=== PATIENT | female | born 1935 | race Caucasian/White ===

== ENCOUNTER 2016-07-25 10:32 | Outpatient (RCR) | payer MEDICARE, MEDICAID ==
--- OUTSIDE RECORDS SUMMARY | 2016-05-02 13:47 | XMS REPORT | Continuity of Care Document ---
Author Author [facility] Organization [facility] Address Unknown Phone Unavailable Care Team Providers Care Production Mechanic Name Role Phone FELICITA CEDEÑO MD PCP Insurance Providers Payer Name Policy Number Subscriber Name Relationship Wps Medicare [id number] Deepa Serra N 18 Self / Same As Patient [facility] Amerigrp [id number] Deepa Serra 18 Self / Same As Patient Advance Directives Directive Response Recorded Date/Time Advance Directives Yes 07/20/14 2:59pm Health Care Power of Feed Research Technician Y DAUGHTER RENUKA TURCIOS [phone] 07/20/14 2: 59pm Organ Donor No 07/20/14 2:59pm Problems Medical Problems Problem Onset Date Status Nausea alone Unknown Active Medications Medication Dose Route Sig Days/Qty Instructions Order Date Discontinued Date Status Montelukast Sodium 05/23/08 12/27/09 Discontinued Gabapentin 300 Mg PO TWICE A DAY 05/23/08 03/20/11 Discontinued Sucralfate 1 Gm PO THREE TIMES A DAY 05/23/08 09/03/12 Discontinued Amlodipine Besylate 2.5 Mg PO DAILY 05/23/08 03/20/11 Discontinued Levothyroxine Sodium 150 Mcg PO DAILY 05/23/08 09/03/12 Discontinued Acyclovir 05/23/08 12/27/09 Discontinued Simvastatin 40 Mg PO BEDTIME 05/23/08 03/20/11 Discontinued Furosemide 40 Mg PO DAILY every other day 05/23/08 07/20/14 Discontinued Clopidogrel Bisulfate 75 Mg PO DAILY 05/23/08 09/03/12 Discontinued Metformin HCl 05/23/08 12/27/09 Discontinued Trazodone HCl 25 Mg PO BEDTIME 05/23/08 09/03/12 Discontinued Insulin Lispro Protam/Lispro Human 05/23/08 12/27/09 Discontinued Enalapril Maleate 05/23/08 12/27/09 Discontinued Eszopiclone 05/23/08 12/27/09 Discontinued Aspirin 325 Mg PO DAILY 05/23/08 03/21/11 Discontinued Esomeprazole Magnesium 40 Mg PO DAILY 05/23/08 Active Salmeterol Xinafoate/Fluticasone 1 Puff INH DAILY 05/23/08 Active Olmesartan 40 Mg PO DAILY 05/23/08 03/20/11 Discontinued Enalapril Maleate 20 Mg PO DAILY 12/27/09 03/20/11 Discontinued Metformin HCl (Glucophage) 1 Each PO TWICE A DAY WITH MEALS 12/27/09 03/20/11 Discontinued Potassium 99 Mg PO DAILY 2 Qty 12/27/09 03/20/11 Discontinued Potassium 99 Mg PO BEDTIME 3 Qty 12/27/09 03/20/11 Discontinued Ibuprofen 600 Mg PO BEDTIME 12/27/09 03/20/11 Discontinued Albuterol Sulfate 2.5 Mg IH THREE TIMES A DAY 12/27/09 03/20/11 Discontinued Ipratropium [place] 0.5 Mg IH TWICE A DAY 12/27/09 09/03/12 Discontinued Insulin Npl/Insulin Lispro 50 Unit SQ EVERY 12 HOURS 12/27/09 Discontinued Zolpidem Tartrate 5 Mg PO BEDTIME 12/27/09 03/20/11 Discontinued Carvedilol (Coreg) 25 Mg PO TWICE A DAY 12/27/09 09/03/12 Discontinued Insulin Aspart 12 Unit SC THREE TIMES A DAY 03/20/11 09/03/12 Discontinued Albuterol Sulfate 2.5 Mg IH TWICE A DAY 03/20/11 09/03/12 Discontinued Tiotropium [place] 1 IH DAILY pt takes at 1500 daily 03/20/11 Discontinued Aliskiren/Valsartan 1 Tab PO DAILY 03/20/11 09/03/12 Discontinued Folic Acid 1 Mg PO DAILY 03/20/11 09/03/12 Discontinued Duloxetine HCl 60 Mg PO DAILY 03/20/11 07/20/14 Discontinued Insulin Glargine,Hum.rec.anlog 65 Unit SQ TWICE A DAY 03/20/1109/03 Discontinued Niacin 1,000 Mg PO BEDTIME 03/20/11 09/03/12 Discontinued Fluticasone Propionate 1 Sprays NSEACH TWICE A DAY 03/20/11 Discontinued [Oxygen] 2 L IH BEDTIME 03/20/11 Active Multivitamins 1 Tab PO DAILY 03/20/11 09/03/12 Discontinued Tramadol HCl 50 Mg PO EVERY 6 HOURS PRN 03/20/11 Active Rosuvastatin Calcium 10 Mg PO BEDTIME 03/20/11 03/25/11 Discontinued Fish Oil 1,000 Mg PO DAILY 03/20/11 04/09/13 Discontinued Aspirin 81 Mg PO DAILY 03/21/11 03/26/11 Discontinued Simvastatin 40 Mg PO BEDTIME 03/25/11 05/01/11 Discontinued Amlodipine Besylate (Norvasc 5 Mg) 5 Mg PO DAILY 03/25/11 09/03/12 Discontinued Meclizine HCl 25 Mg PO DAILY 03/25/11 Active Aspirin 81 Mg PO DAILY 03/26/11 09/03/12 Discontinued Valsartan 320 Mg PO DAILY 03/26/11 03/26/11 Discontinued Rosuvastatin Calcium 10 Mg PO BEDTIME 05/01/11 Active Fluticasone Propionate 2 Sprays NSEACH TWICE A DAY 05/01/11 Discontinued Aspirin 325 Mg PO DAILY 09/03/12 09/17/12 Discontinued Tiotropium [place] 2 Puff IH TWICE A DAY 1 Qty 09/03/12 Active Levothyroxine Sodium (Levothroid) 150 Mcg PO DAILY 09/03/12 Active Niacin 1,000 Mg PO BEDTIME 09/03/12 Active Folic Acid 2 Mg PO DAILY 09/03/12 Active Insulin Glargine 80 Units SQ TWICE A DAY 09/03/12 Active Insulin Aspart Unit SQ BEFORE MEALS TID WITH MEALS PER SLIDING SCALE Active Loperamide Hcl 2 Mg PO NEEDED 09/03/12 04/09/13 Discontinued [Procrit] SQ WEEKLY 09/03/12 04/09/13 Discontinued Losartan Potassium 100 Mg PO DAILY 09/03/12 Active Acetaminophen With Codeine 1 - 2 Tab PO NEEDED Q 6 HRS. PRN PAIN 02/0609/05/12 Discontinued Alprazolam 0.5 Mg PO NEEDED 09/03/12 09/05/12 Discontinued Nitrofurantoin Macrocrystals 100 Mg PO TWICE A DAY X3 DAYS 09/05/12 Discontinued Acetaminophen/Hydrocodone Bitart 1 Ea PO Q 4 - 6 HR PRN 20 Qty 04/09/13 Discontinued Levofloxacin 0.5 Each PO DAILY 5 Days 09/12/12 09/17/12 Discontinued Aspirin 325 Mg PO DAILY 09/17/12 Active Trimethoprim/Sulfamethoxazole 1 Ea PO TWICE A DAY 20 Qty 09/26/12 Discontinued Trazodone HCl 100 Mg PO BEDTIME 04/09/13 Active Metoprolol Succinate 1 Each PO DAILY 04/09/13 Active Prednisolone Acetate 1 Ml OP 04/09/13 Active Ipratropium [place] 0.5 Mg IH 04/09/13 Active Guaifenesin/D-Methorphan Hb/Pe 118 Ml PO NEEDED 04/09/13 Discontinued Oxymetazoline Hcl 30 Ml NS 07/20/14 Active Gabapentin 100 Mg PO BEDTIME 07/20/14 Active Amlodipine Besylate 5 Mg PO DAILY 07/20/14 Active Albuterol Sulfate 2 Puff IH 07/20/14 Active Diphenhydramine HCl (Benadryl) 1 Each PO BEDTIME 07/20/14 Active Fesoterodine Fumarate 4 Mg PO DAILY 07/20/14 Active Estrogens Conjugated 0.625 Gm PV 07/20/14 Active Mu-Vits-Min Th/Lycopene/Lutein 1 Each PO DAILY 07/20/14 Active Loratadine 10 Mg PO 07/20/14 Active Ondansetron Hcl 4 Mg SL EVERY 4HRS 10 Qty FOR NAUSEA AND VOMITING Active Social History Social History Problem Response Recorded Date/Time Alcohol Use Denies Use 07/20/2014 2:59pm Recreational Drug Use No 07/20/2014 2:59pm Recent Foreign Travel N nessa alvares 05/18/2014 11:39am Hospital Discharge Instructions No hospital discharge instructions. Plan of Care No plan of care. Functional Status No functional status results. Allergies, Adverse Reactions, Alerts Allergen Type Severity Reaction Status Last Updated Penicillins ([id number]) Allergy Unknown Active 10/02/05 influenza virus vacc,specific ([id number]) Allergy Unknown Active Immunizations Name Given Type Date of Pneumonia Vaccine 08/28/12 Historical Tetanus Booster (TDap) Unknown Historical Vital Signs Acute Vital Signs Vital Response Date/Time Temperature (Fahrenheit) 97.9 degrees F (97.6 - 99.5) Temperature (Calculated Celsius) 36.53527 degrees C (36.4 - 37.5) Temperature Source Temporal Pulse Rate (adult) 99 bpm (60 - 90) Respiratory Rate 18 bpm (12 - 24) O2 Sat by Pulse Oximetry 98 % (88 - 100) Blood Pressure 187/83 mm Hg Pain Pain Intensity 0 Height (Feet) 5 feet Height (Inches) 5 inches Height (Calculated Centimeters) 165.302727 cm Weight (Pounds) 187 pounds Weight (Calculated Kilograms) 84.217559 kilograms Calculated BMI 31.11 Results Laboratory Results Test Name Result Units Flags Reference Collection Date/Time Result Date/ Time Comments White Blood Count 10.0 10^3/uL 4.3-11.0 08/04/2014 1:39pm 08/04/2014 1: 42pm Red Blood Count 3.99 10^6/uL L 4.35-5.85 08/04/2014 1:39pm 08/04/2014 1: 42pm Hemoglobin 10.7 G/DL L 11.5-16.0 08/04/2014 1:39pm 08/04/2014 1:42pm Hematocrit 35 % 35-52 08/04/2014 1:39pm 08/04/2014 1:42pm Mean Corpuscular Volume 89 FL 80-99 08/04/2014 1:39pm 08/04/2014 1: 42pm Mean Corpuscular Hemoglobin 27 PG 25-34 08/04/2014 1:39pm 08/04/2014 1: 42pm Mean Corpuscular Hemoglobin Concent 30 G/DL L 32-36 08/04/2014 1:39pm 02/2015 1:42pm Red Cell Distribution Width 17.9 % H 10.0-14.5 08/04/2014 1:39pm 2014 1:42pm Platelet Count 174 10^3/uL 130-400 08/04/2014 1:39pm 08/04/2014 1:42pm Mean Platelet Volume 9.7 FL 7.4-10.4 08/04/2014 1:39pm 08/04/2014 1: 42pm Neutrophils (%) (Auto) 69 % 42-75 08/04/2014 1:39pm 08/04/2014 1:42pm Lymphocytes (%) (Auto) 18 % 12-44 08/04/2014 1:39pm 08/04/2014 1:42pm Monocytes (%) (Auto) 8 % 0-12 08/04/2014 1:39pm 08/04/2014 1:42pm Eosinophils (%) (Auto) 5 % 0-10 08/04/2014 1:39pm 08/04/2014 1:42pm Basophils (%) (Auto) 1 % 0-10 08/04/2014 1:39pm 08/04/2014 1:42pm Neutrophils # (Auto) 6.9 X 10^3 1.8-7.8 08/04/2014 1:39pm 08/04/2014 1: 42pm Lymphocytes # (Auto) 1.8 X 10^3 1.0-4.0 08/04/2014 1:39pm 08/04/2014 1: 42pm Monocytes # (Auto) 0.8 X 10^3 0.0-1.0 08/04/2014 1:39pm 08/04/2014 1: 42pm Eosinophils # (Auto) 0.5 10^3/uL H 0.0-0.3 08/04/2014 1:39pm 08/04/2014 1 :42pm Basophils # (Auto) 0.1 10^3/uL 0.0-0.1 08/04/2014 1:39pm 08/04/2014 1: 42pm Urine Color YELLOW 05/26/2014 4:20pm 05/26/2014 4:42pm Urine Clarity VERY CLOUDY * 05/26/2014 4:20pm 05/26/2014 4:42pm Urine pH 5 5-9 05/26/2014 4:20pm 05/26/2014 4:42pm Urine Specific [place] 1.015 * 1.016-1.022 05/26/2014 4:20pm 2013 4:42pm Urine Protein 3+ * NEGATIVE 05/26/2014 4:20pm 05/26/2014 4:42pm Urine Glucose (UA) NEGATIVE NEGATIVE 05/26/2014 4:20pm 05/26/2014 4: 42pm Urine RBC (Auto) 3+ * NEGATIVE 05/26/2014 4:20pm 05/26/2014 4:42pm Urine Ketones NEGATIVE NEGATIVE 05/26/2014 4:20pm 05/26/2014 4:42pm Urine Nitrite POSITIVE * NEGATIVE 05/26/2014 4:20pm 05/26/2014 4:42pm Urine Bilirubin NEGATIVE NEGATIVE 05/26/2014 4:20pm 05/26/2014 4: 42pm Urine Urobilinogen NORMAL MG/DL NORMAL 05/26/2014 4:20pm 05/26/2014 4: 42pm Urine Leukocyte Esterase 3+ * NEGATIVE 05/26/2014 4:20pm 05/26/2014 4: 42pm Urine RBC 2-5 /HPF * 05/26/2014 4:20pm 05/26/2014 4:42pm Urine WBC TNTC /HPF * 05/26/2014 4:20pm 05/26/2014 4:42pm Urine Bacteria LARGE /HPF * 05/26/2014 4:20pm 05/26/2014 4:42pm Urine Squamous Epithelial Cells 5-10 /HPF 05/26/2014 4:20pm 2013 4:42pm Urine Crystals NONE /LPF 05/26/2014 4:20pm 05/26/2014 4:42pm Urine Casts NONE /LPF 05/26/2014 4:20pm 05/26/2014 4:42pm Urine Mucus NEGATIVE /LPF 05/26/2014 4:2005/26/2014 4:42pm Urine Culture Indicated YES 05/26/2014 4:2005/26/2014 4:42pm Sodium Level 137 MMOL/L 135-145 05/12/2014 1:30pm 05/12/2014 2:21pm Potassium Level 4.3 MMOL/L 3.6-5.0 05/12/2014 1:30pm 05/12/2014 2:21pm Chloride Level 106 MMOL/L 98-107 05/12/2014 1:30pm 05/12/2014 2:21pm Carbon Dioxide Level 22 MMOL/L 21-32 05/12/2014 1:30pm 05/12/2014 2: 21pm Blood Urea Nitrogen 28 MG/DL H 7-18 05/12/2014 1:30pm 05/12/2014 2:21pm Creatinine 1.68 MG/DL H 0.60-1.30 05/12/2014 1:30pm 05/12/2014 2:21pm BUN/Creatinine Ratio 17 05/12/2014 1:30pm 05/12/2014 2:21pm Estimat Glomerular Filtration Rate 29 05/12/2014 1:30pm 05/12/2014 2:21pm GFR INTERPRETIVE DATA UNITS FOR ESTIMATED GFR (eGFR): mL/min/1.73 M2 REFERENCE RANGE FOR ESTIMATED GFR (eGFR) eGFR NORMAL eGFR >60 MODERATELY DECREASED eGFR 30-59 SEVERLY DECREASED eGFR 15-29 KIDNEY FAILURE <15 (OR DIALYSIS) Glucose Level 279 MG/DL H 70-105 05/12/2014 1:30pm 05/12/2014 2:21pm Calcium Level 10.1 MG/DL 8.5-10.1 05/12/2014 1:30pm 05/12/2014 2:21pm Total Bilirubin 0.5 MG/DL 0.1-1.0 05/12/2014 1:30pm 05/12/2014 2:21pm Alkaline Phosphatase 101 U/L 40-136 05/12/2014 1:30pm 05/12/2014 2: 21pm Aspartate Amino Transf (AST/SGOT) 15 U/L 5-34 05/12/2014 1:30pm 2013 2:21pm Alanine Aminotransferase (ALT/SGPT) 19 U/L 0-55 05/12/2014 1:30pm 05/12 2:21pm Total Protein 7.0 G/DL 6.4-8.2 05/12/2014 1:30pm 05/12/2014 2:21pm Albumin 4.3 G/DL 3.2-4.5 05/12/2014 1:30pm 05/12/2014 2:21pm Ferritin 34 NG/ML 15-150 05/12/2014 1:30pm 05/13/2014 6:57am White Blood Count 10.2 10^3/uL 4.3-11.0 07/20/2014 3:03pm 07/20/2014 3: 25pm Red Blood Count 3.98 10^6/uL L 4.35-5.85 07/20/2014 3:03pm 07/20/2014 3: 25pm Hemoglobin 10.6 G/DL L 11.5-16.0 07/20/2014 3:03pm 07/20/2014 3:25pm Hematocrit 34 % L 35-52 07/20/2014 3:03pm 07/20/2014 3:25pm Mean Corpuscular Volume 85 FL 80-99 07/20/2014 3:03pm 07/20/2014 3: 25pm Mean Corpuscular Hemoglobin 27 PG 25-34 07/20/2014 3:03pm 07/20/2014 3: 25pm Mean Corpuscular Hemoglobin Concent 32 G/DL 32-36 07/20/2014 3:03pm 3:25pm Red Cell Distribution Width 15.5 % H 10.0-14.5 07/20/2014 3:03pm 2013 3:25pm Platelet Count 199 10^3/uL 130-400 07/20/2014 3:03pm 07/20/2014 3:25pm Mean Platelet Volume 9.0 FL 7.4-10.4 07/20/2014 3:03pm 07/20/2014 3: 25pm Neutrophils (%) (Auto) 74 % 42-75 07/20/2014 3:03pm 07/20/2014 3:25pm Lymphocytes (%) (Auto) 18 % 12-44 07/20/2014 3:03pm 07/20/2014 3:25pm Monocytes (%) (Auto) 6 % 0-12 07/20/2014 3:03pm 07/20/2014 3:25pm Eosinophils (%) (Auto) 2 % 0-10 07/20/2014 3:03pm 07/20/2014 3:25pm Basophils (%) (Auto) 0 % 0-10 07/20/2014 3:03pm 07/20/2014 3:25pm Neutrophils # (Auto) 7.5 X 10^3 1.8-7.8 07/20/2014 3:03pm 07/20/2014 3: 25pm Lymphocytes # (Auto) 1.9 X 10^3 1.0-4.0 07/20/2014 3:03pm 07/20/2014 3: 25pm Monocytes # (Auto) 0.6 X 10^3 0.0-1.0 07/20/2014 3:03pm 07/20/2014 3: 25pm Eosinophils # (Auto) 0.2 10^3/uL 0.0-0.3 07/20/2014 3:03pm 07/20/2014 3 :25pm Basophils # (Auto) 0.0 10^3/uL 0.0-0.1 07/20/2014 3:03pm 07/20/2014 3: 25pm Urine Color YELLOW 07/20/2014 2:53pm 07/20/2014 3:38pm Urine Clarity CLEAR 07/20/2014 2:53pm 07/20/2014 3:38pm Urine pH 6.5 5-9 07/20/2014 2:53pm 07/20/2014 3:38pm Urine Specific [place] 1.010 * 1.016-1.022 07/20/2014 2:53pm 2013 3:38pm Urine Protein 3+ * NEGATIVE 07/20/2014 2:53pm 07/20/2014 3:38pm Urine Glucose (UA) NEGATIVE NEGATIVE 07/20/2014 2:53pm 07/20/2014 3: 38pm Urine RBC (Auto) 1+ * NEGATIVE 07/20/2014 2:53pm 07/20/2014 3:38pm Urine Ketones NEGATIVE NEGATIVE 07/20/2014 2:53pm 07/20/2014 3:38pm Urine Nitrite NEGATIVE NEGATIVE 07/20/2014 2:53pm 07/20/2014 3:38pm Urine Bilirubin NEGATIVE NEGATIVE 07/20/2014 2:53pm 07/20/2014 3: 38pm Urine Urobilinogen NORMAL MG/DL NORMAL 07/20/2014 2:53pm 07/20/2014 3: 38pm Urine Leukocyte Esterase 2+ * NEGATIVE 07/20/2014 2:53pm 07/20/2014 3: 38pm Urine RBC NONE /HPF 07/20/2014 2:53pm 07/20/2014 3:38pm Urine WBC 5-10 /HPF * 07/20/2014 2:53pm 07/20/2014 3:38pm Urine Bacteria FEW /HPF * 07/20/2014 2:53pm 07/20/2014 3:38pm Urine Squamous Epithelial Cells 5-10 /HPF 07/20/2014 2:53pm 2013 3:38pm Urine Crystals NONE /LPF 07/20/2014 2:53pm 07/20/2014 3:38pm Urine Casts NONE /LPF 07/20/2014 2:53pm 07/20/2014 3:38pm Urine Mucus NEGATIVE /LPF 07/20/2014 2:53pm 07/20/2014 3:38pm Urine Other 0-2 TRANS EPIS /HPF 07/20/2014 2:53pm 07/20/2014 3:38pm Urine Culture Indicated YES 07/20/2014 2:53pm 07/20/2014 3:38pm Sodium Level 143 MMOL/L 135-145 07/20/2014 3:03pm 07/20/2014 3:41pm Potassium Level 3.3 MMOL/L L 3.6-5.0 07/20/2014 3:03pm 07/20/2014 3:41pm Chloride Level 107 MMOL/L 98-107 07/20/2014 3:03pm 07/20/2014 3:41pm Carbon Dioxide Level 22 MMOL/L 21-32 07/20/2014 3:03pm 07/20/2014 3: 41pm Blood Urea Nitrogen 9 MG/DL 7-18 07/20/2014 3:03pm 07/20/2014 3:41pm Creatinine 0.86 MG/DL 0.60-1.30 07/20/2014 3:03pm 07/20/2014 3:41pm BUN/Creatinine Ratio 10 07/20/2014 3:03pm 07/20/2014 3:41pm Estimat Glomerular Filtration Rate > 60 07/20/2014 3:03pm 2013 3:41pm GFR INTERPRETIVE DATA UNITS FOR ESTIMATED GFR (eGFR): mL/min/1.73 M2 REFERENCE RANGE FOR ESTIMATED GFR (eGFR) eGFR NORMAL eGFR >60 MODERATELY DECREASED eGFR 30-59 SEVERLY DECREASED eGFR 15-29 KIDNEY FAILURE <15 (OR DIALYSIS) Glucose Level 74 MG/DL 70-105 07/20/2014 3:03pm 07/20/2014 3:41pm Calcium Level 10.0 MG/DL 8.5-10.1 07/20/2014 3:03pm 07/20/2014 3:41pm Total Bilirubin 0.5 MG/DL 0.1-1.0 07/20/2014 3:03pm 07/20/2014 3:41pm Alkaline Phosphatase 91 U/L 40-136 07/20/2014 3:03pm 07/20/2014 3:41pm Aspartate Amino Transf (AST/SGOT) 19 U/L 5-34 07/20/2014 3:03pm 2013 3:41pm Alanine Aminotransferase (ALT/SGPT) 15 U/L 0-55 07/20/2014 3:03pm 07/20 3:41pm Total Protein 7.5 G/DL 6.4-8.2 07/20/2014 3:03pm 07/20/2014 3:41pm Albumin 4.6 G/DL H 3.2-4.5 07/20/2014 3:03pm 07/20/2014 3:41pm Lipase 42 U/L 8-78 07/20/2014 3:03pm 07/20/2014 3:41pm Microbiology Results Procedure Source Result Collection Date/Time Result Date/Time Urine Culture Urine, Clean Catch PROBABLE KLEBSIELLA/ENTEROBACT 05/12/2014 2 :15pm 05/14/2014 2:10pm KLEBSIELLA PNEUMONIAE 05/12/2014 2:15pm 05/14/2014 2:10pm KLEBSIELLA PNEUMONIAE 05/12/2014 2:15pm 05/14/2014 2:10pm Urine Culture Urine, Clean Catch GRAM NEGATIVE BOUBACAR 05/26/2014 4:20pm 2013 1:38pm KLEBSIELLA PNEUMONIAE 05/26/2014 4:20pm 05/28/2014 1:38pm KLEBSIELLA PNEUMONIAE 05/26/2014 4:20pm 05/28/2014 1:38pm Procedures No known history of procedures. Encounters Encounter Location Date/Time Discharged Recurring Via [facility] 08/04/14 1:35pm Departed Emergency Room Via [facility] 07/20/14 2:47pm
[2016-05-02 14:08] LABS: BASOPHILS % (AUTO) 0 % (0-10); EOSINOPHILS # (AUTO) 0.5 10^3/uL (0.0-0.3); EOSINOPHILS % (AUTO) 4 % (0-10); LYMPHOCYTES # (AUTO) 2.9 X 10^3 (1.0-4.0); LYMPHOCYTES % (AUTO) 26 % (12-44); MEAN CORPUSCULAR HEMOGLOBIN 29 PG (25-34); MEAN CORPUSCULAR HGB CONC 33 G/DL (32-36); MEAN CORPUSCULAR VOLUME 90 FL (80-99); MEAN PLATELET VOLUME 9.1 FL (7.4-10.4); MONOCYTES # (AUTO) 0.8 X 10^3 (0.0-1.0); MONOCYTES % (AUTO) 7 % (0-12); NEUTROPHILS % (AUTO) 62 % (42-75); PLATELET COUNT 150 10^3/uL (130-400); RED BLOOD COUNT 3.75 10^6/uL (4.35-5.85); RED CELL DISTRIBUTION WIDTH 17.5 % (10.0-14.5); WHITE BLOOD COUNT 11.3 10^3/uL (4.3-11.0)
[2016-05-09 11:07] LABS: BASOPHILS % (AUTO) 0 % (0-10); EOSINOPHILS # (AUTO) 0.4 10^3/uL (0.0-0.3); EOSINOPHILS % (AUTO) 4 % (0-10); LYMPHOCYTES # (AUTO) 2.3 X 10^3 (1.0-4.0); LYMPHOCYTES % (AUTO) 23 % (12-44); MEAN CORPUSCULAR HEMOGLOBIN 30 PG (25-34); MEAN CORPUSCULAR HGB CONC 33 G/DL (32-36); MEAN CORPUSCULAR VOLUME 91 FL (80-99); MEAN PLATELET VOLUME 9.4 FL (7.4-10.4); MONOCYTES # (AUTO) 0.5 X 10^3 (0.0-1.0); MONOCYTES % (AUTO) 5 % (0-12); NEUTROPHILS # (AUTO) 6.6 X 10^3 (1.8-7.8); NEUTROPHILS % (AUTO) 67 % (42-75); PLATELET COUNT 132 10^3/uL (130-400); RED BLOOD COUNT 3.91 10^6/uL (4.35-5.85); RED CELL DISTRIBUTION WIDTH 17.3 % (10.0-14.5); WHITE BLOOD COUNT 9.8 10^3/uL (4.3-11.0)
[2016-05-09 11:44] LABS: ALBUMIN 4.4 G/DL (3.2-4.5); BILIRUBIN,TOTAL 0.9 MG/DL (0.1-1.0); CALCIUM 9.9 MG/DL (8.5-10.1); CREATININE SERUM 1.71 MG/DL (0.60-1.30); POTASSIUM 4.3 MMOL/L (3.6-5.0)
[2016-05-16 09:05] LABS: BASOPHILS # (AUTO) 0.1 10^3/uL (0.0-0.1); BASOPHILS % (AUTO) 1 % (0-10); EOSINOPHILS # (AUTO) 0.4 10^3/uL (0.0-0.3); EOSINOPHILS % (AUTO) 4 % (0-10); LYMPHOCYTES # (AUTO) 2.8 X 10^3 (1.0-4.0); LYMPHOCYTES % (AUTO) 32 % (12-44); MEAN CORPUSCULAR HEMOGLOBIN 30 PG (25-34); MEAN CORPUSCULAR HGB CONC 33 G/DL (32-36); MEAN CORPUSCULAR VOLUME 91 FL (80-99); MEAN PLATELET VOLUME 9.5 FL (7.4-10.4); MONOCYTES # (AUTO) 0.5 X 10^3 (0.0-1.0); MONOCYTES % (AUTO) 5 % (0-12); NEUTROPHILS # (AUTO) 5.1 X 10^3 (1.8-7.8); NEUTROPHILS % (AUTO) 58 % (42-75); PLATELET COUNT 119 10^3/uL (130-400); RED BLOOD COUNT 3.73 10^6/uL (4.35-5.85); WHITE BLOOD COUNT 8.9 10^3/uL (4.3-11.0)
[2016-05-23 10:01] LABS: BASOPHILS % (AUTO) 1 % (0-10); EOSINOPHILS # (AUTO) 0.4 10^3/uL (0.0-0.3); EOSINOPHILS % (AUTO) 4 % (0-10); LYMPHOCYTES # (AUTO) 2.3 X 10^3 (1.0-4.0); LYMPHOCYTES % (AUTO) 27 % (12-44); MEAN CORPUSCULAR HEMOGLOBIN 31 PG (25-34); MEAN CORPUSCULAR HGB CONC 33 G/DL (32-36); MEAN CORPUSCULAR VOLUME 92 FL (80-99); MEAN PLATELET VOLUME 8.8 FL (7.4-10.4); MONOCYTES # (AUTO) 0.6 X 10^3 (0.0-1.0); MONOCYTES % (AUTO) 6 % (0-12); NEUTROPHILS # (AUTO) 5.5 X 10^3 (1.8-7.8); NEUTROPHILS % (AUTO) 63 % (42-75); PLATELET COUNT 144 10^3/uL (130-400); RED BLOOD COUNT 3.73 10^6/uL (4.35-5.85); RED CELL DISTRIBUTION WIDTH 16.4 % (10.0-14.5); WHITE BLOOD COUNT 8.7 10^3/uL (4.3-11.0)
[2016-05-29 10:35] LABS: BASOPHILS % (AUTO) 0 % (0-10); EOSINOPHILS # (AUTO) 0.5 10^3/uL (0.0-0.3); EOSINOPHILS % (AUTO) 6 % (0-10); LYMPHOCYTES # (AUTO) 2.5 X 10^3 (1.0-4.0); LYMPHOCYTES % (AUTO) 25 % (12-44); MEAN CORPUSCULAR HEMOGLOBIN 31 PG (25-34); MEAN CORPUSCULAR HGB CONC 33 G/DL (32-36); MEAN CORPUSCULAR VOLUME 93 FL (80-99); MEAN PLATELET VOLUME 8.9 FL (7.4-10.4); MONOCYTES # (AUTO) 0.6 X 10^3 (0.0-1.0); MONOCYTES % (AUTO) 7 % (0-12); NEUTROPHILS # (AUTO) 6.2 X 10^3 (1.8-7.8); NEUTROPHILS % (AUTO) 62 % (42-75); PLATELET COUNT 128 10^3/uL (130-400); RED BLOOD COUNT 3.41 10^6/uL (4.35-5.85); RED CELL DISTRIBUTION WIDTH 16.4 % (10.0-14.5); WHITE BLOOD COUNT 9.9 10^3/uL (4.3-11.0)
[2016-06-13 14:06] LABS: BASOPHILS % (AUTO) 0 % (0-10); EOSINOPHILS # (AUTO) 0.3 10^3/uL (0.0-0.3); EOSINOPHILS % (AUTO) 3 % (0-10); LYMPHOCYTES # (AUTO) 2.6 X 10^3 (1.0-4.0); LYMPHOCYTES % (AUTO) 27 % (12-44); MEAN CORPUSCULAR HEMOGLOBIN 30 PG (25-34); MEAN CORPUSCULAR HGB CONC 33 G/DL (32-36); MEAN CORPUSCULAR VOLUME 92 FL (80-99); MEAN PLATELET VOLUME 9.3 FL (7.4-10.4); MONOCYTES # (AUTO) 0.7 X 10^3 (0.0-1.0); MONOCYTES % (AUTO) 7 % (0-12); NEUTROPHILS # (AUTO) 5.9 X 10^3 (1.8-7.8); NEUTROPHILS % (AUTO) 62 % (42-75); PLATELET COUNT 126 10^3/uL (130-400); RED BLOOD COUNT 3.46 10^6/uL (4.35-5.85); WHITE BLOOD COUNT 9.5 10^3/uL (4.3-11.0)
[2016-06-27 09:01] LABS: BASOPHILS % (AUTO) 0 % (0-10); EOSINOPHILS # (AUTO) 0.4 10^3/uL (0.0-0.3); EOSINOPHILS % (AUTO) 6 % (0-10); LYMPHOCYTES % (AUTO) 27 % (12-44); MEAN CORPUSCULAR HEMOGLOBIN 31 PG (25-34); MEAN CORPUSCULAR HGB CONC 33 G/DL (32-36); MEAN CORPUSCULAR VOLUME 93 FL (80-99); MEAN PLATELET VOLUME 8.7 FL (7.4-10.4); MONOCYTES # (AUTO) 0.5 X 10^3 (0.0-1.0); MONOCYTES % (AUTO) 7 % (0-12); NEUTROPHILS # (AUTO) 4.6 X 10^3 (1.8-7.8); NEUTROPHILS % (AUTO) 61 % (42-75); PLATELET COUNT 144 10^3/uL (130-400); RED BLOOD COUNT 3.49 10^6/uL (4.35-5.85); RED CELL DISTRIBUTION WIDTH 15.2 % (10.0-14.5); WHITE BLOOD COUNT 7.5 10^3/uL (4.3-11.0)
[2016-07-04 10:01] LABS: BASOPHILS % (AUTO) 0 % (0-10); EOSINOPHILS # (AUTO) 0.2 10^3/uL (0.0-0.3); EOSINOPHILS % (AUTO) 3 % (0-10); LYMPHOCYTES # (AUTO) 1.9 X 10^3 (1.0-4.0); LYMPHOCYTES % (AUTO) 21 % (12-44); MEAN CORPUSCULAR HEMOGLOBIN 30 PG (25-34); MEAN CORPUSCULAR HGB CONC 32 G/DL (32-36); MEAN CORPUSCULAR VOLUME 94 FL (80-99); MEAN PLATELET VOLUME 8.5 FL (7.4-10.4); MONOCYTES # (AUTO) 0.6 X 10^3 (0.0-1.0); MONOCYTES % (AUTO) 7 % (0-12); NEUTROPHILS # (AUTO) 6.2 X 10^3 (1.8-7.8); NEUTROPHILS % (AUTO) 69 % (42-75); PLATELET COUNT 137 10^3/uL (130-400); RED BLOOD COUNT 3.56 10^6/uL (4.35-5.85); RED CELL DISTRIBUTION WIDTH 14.9 % (10.0-14.5)
[2016-07-04 10:51] LABS: ALBUMIN 4.4 G/DL (3.2-4.5); BILIRUBIN,TOTAL 0.8 MG/DL (0.1-1.0); CALCIUM 9.8 MG/DL (8.5-10.1); POTASSIUM 4.4 MMOL/L (3.6-5.0); TOTAL PROTEIN 6.9 G/DL (6.4-8.2)
[2016-07-11 10:24] LABS: BASOPHILS % (AUTO) 0 % (0-10); EOSINOPHILS # (AUTO) 0.3 10^3/uL (0.0-0.3); EOSINOPHILS % (AUTO) 3 % (0-10); LYMPHOCYTES # (AUTO) 2.2 X 10^3 (1.0-4.0); LYMPHOCYTES % (AUTO) 22 % (12-44); MEAN CORPUSCULAR HEMOGLOBIN 30 PG (25-34); MEAN CORPUSCULAR HGB CONC 32 G/DL (32-36); MEAN CORPUSCULAR VOLUME 93 FL (80-99); MEAN PLATELET VOLUME 8.6 FL (7.4-10.4); MONOCYTES # (AUTO) 0.6 X 10^3 (0.0-1.0); MONOCYTES % (AUTO) 6 % (0-12); NEUTROPHILS # (AUTO) 7.1 X 10^3 (1.8-7.8); NEUTROPHILS % (AUTO) 70 % (42-75); PLATELET COUNT 140 10^3/uL (130-400); RED BLOOD COUNT 3.65 10^6/uL (4.35-5.85); RED CELL DISTRIBUTION WIDTH 14.7 % (10.0-14.5); WHITE BLOOD COUNT 10.1 10^3/uL (4.3-11.0)
[~2016-07-25 10:32] MED LIST: AC325T PO; ACET473E5 PO; ACYC400T79; ADV1DS INH; ALBU0.632 IH; ALBU0.8322 IH; ALIS1TAB6 PO; ALPR0.254 PO; ALPR0.5T11 PO; AML2.5T PO; AMLO5TAB2 PO; AMLO5TAB5 PO; ASP325T PO; ASP81CT PO; ASP81TEC PO; ASPI325T32 PO; ATOR40TA70 PO; CARV25TA PO; CLPD75T PO; CYCL1DRO OU; DARBEPOETIN 10 MCG/0.4 ML ARANESP IJ SCH; DARBEPOETIN 40 MCG/ML (ARANESP) 1 ML VIAL SC SCH; DIPH25TA82 PO; DULO60CA6 PO; ENAL20TA PO; ENLP10T; EST30C PV; FESO4TAB2 PO; FLC1T PO; FLT05NA16 NSEACH; FLUT1DIS26 IH; FOLI0.8T PO; FOLI1TAB24 PO; FRSM40T PO; FURO40TA4 PO; GABA-486 PO; GBPN300C PO; Gabapentin PO; HYDR-3583 PO; IBP200T PO; INSASP10V IV; INSASP10V SC; INSU100C4 SQ; INSU100I17 SQ; INSU100V16 SQ; INSU100V19 SQ; INSU100V5 SQ; INSU100V6 SQ; IPRA0.2S18 IH; IPRA0.2S47 IH; ISOS30TA3 PO; LEVO150T6 PO; LEVO500T69 PO; LEVO750T39 PO; LOPE2CAP PO; LORA10CA PO; LOSA100T7 PO; LVT.15T PO; MECL-106 PO; MECL25TA56 PO; METF-380 PO; METO-272 PO; METO50TA7 PO; MNTL10T; MTF500T; MULT-1029 PO; MULT-608 PO; MULT1TAB69 PO; Meclizine Hcl PO; Metoprolol Succinate PO; NF-ESOM40C PO; NIA500ERT PO; NIAC1000 PO; NIAC100045 PO; NITR100C3 PO; OLME40TA14 PO; OLME40TA16 PO; OMEG1CAP57 PO; OMEP40CA36 PO; OMG1KC PO; ONDA-42 SL; OXYGEN IH; OXYM-30 NS; POLY15DR14 OU; POTA99TA7 PO; PRED1DRO OP; PROCRIT SQ; ROSU10TA12 PO; RT-ADVAIR1 IH; RT-ALBUINH IH; SCR1T1 PO; SERT100T8 PO; SIMV40TA2 PO; SOLI5TAB4 PO; SULF-222 PO; SULF1TAB38 PO; TIOT18CA IH; TIOT18CA2 IH; TRAZ100T92 PO; TRM50T PO; TRZ100T PO; TRZ50T PO; Tiotropium Bromide IH; VALS320T8 PO; ZOLP5TAB6 PO; [UNRECOGNIZED DRUG - CODE] PO; [UNRECOGNIZED DRUG - OTHER]; [UNRECOGNIZED DRUG - OTHER]
[2016-07-25 10:54] LABS: BASOPHILS % (AUTO) 0 % (0-10); EOSINOPHILS # (AUTO) 0.3 10^3/uL (0.0-0.3); EOSINOPHILS % (AUTO) 3 % (0-10); LYMPHOCYTES # (AUTO) 2.8 X 10^3 (1.0-4.0); LYMPHOCYTES % (AUTO) 26 % (12-44); MEAN CORPUSCULAR HGB CONC 32 G/DL (32-36); MEAN CORPUSCULAR VOLUME 92 FL (80-99); MEAN PLATELET VOLUME 8.9 FL (7.4-10.4); MONOCYTES # (AUTO) 0.5 X 10^3 (0.0-1.0); MONOCYTES % (AUTO) 4 % (0-12); NEUTROPHILS # (AUTO) 7.1 X 10^3 (1.8-7.8); NEUTROPHILS % (AUTO) 67 % (42-75); PLATELET COUNT 134 10^3/uL (130-400); RED BLOOD COUNT 3.56 10^6/uL (4.35-5.85); RED CELL DISTRIBUTION WIDTH 14.4 % (10.0-14.5); WHITE BLOOD COUNT 10.7 10^3/uL (4.3-11.0)
[2016-07-25 10:55] LABS: MEAN CORPUSCULAR HEMOGLOBIN 29 PG (25-34)
== END 2016-07-31 | disposition home or self-care (01) ==
LOC: ONC 10:32
PROVIDERS: ATTEND Internal Medicine Hematology & Oncology
DX: N18.3 Chronic kidney disease, stage 3 (moderate) (principal); D63.1 Anemia in chronic kidney disease; D50.0 Iron deficiency anemia secondary to blood loss (chronic); Z79.899 Other long term (current) drug therapy
CPT/HCPCS: 36415; 80053; 82728; 85025; 96372; 99213

== ENCOUNTER → 2016-10-17 | Outpatient (CLI) | payer MEDICARE, MEDICAID ==
[~2016-10-17] MED LIST changes: -DARBEPOETIN 10 MCG/0.4 ML ARANESP IJ SCH; -DARBEPOETIN 40 MCG/ML (ARANESP) 1 ML VIAL SC SCH
--- NOTE | 2016-10-17 17:44 | Diagnostic Imaging Report ---
Bilateral screening mammogram. The current study was also evaluated with a Computer Aided Detection (CAD) system. INDICATION: Screening. No current complaints stated on the questionnaire. COMPARISON: 09/06/15. FINDINGS: The breasts are composed of heterogeneously dense parenchyma which may decrease mammographic sensitivity. Benign-appearing calcifications are seen. Allowing for technique and positional differences, no suspicious change is seen. IMPRESSION: No significant change. ACR BI-RADS Category 2: Benign findings. Result letter will be mailed to the patient. Note: At least 10% of breast cancer is not imaged by mammography. Dictated by: Dictated on workstation # [id number]
== END ==
LOC: RAD 14:29
PROVIDERS: ATTEND Internal Medicine
DX: Z12.31 Encounter for screening mammogram for malignant neoplasm of breast (principal)
CPT/HCPCS: 77067

== ENCOUNTER 2016-10-31 09:52 | Outpatient (RCR) | payer MEDICARE, MEDICAID ==
--- OUTSIDE RECORDS SUMMARY | 2016-08-08 09:31 | XMS REPORT | Continuity of Care Document ---
Author Author [facility] Organization [facility] Address Unknown Phone Unavailable Care Team Providers Care Visitor Information Assistant Name Role Phone FELICITA CEDEÑO MD PCP Insurance Providers Payer Name Policy Number Subscriber Name Relationship Wps Medicare [id number] Deepa Serra N 18 Self / Same As Patient [facility] Amerigrp [id number] Deepa Serra 18 Self / Same As Patient Advance Directives Directive Response Recorded Date/Time Advance Directives Yes 07/20/14 2:59pm Health Care Power of Music Theory Professor Y DAUGHTER RENUKA TURCIOS [phone] 07/20/14 2: 59pm Organ Donor No 07/20/14 [...] TIMES A DAY 12/27/09 03/20/11 Discontinued Ipratropium [place] 0.5 Mg IH TWICE A DAY 12/27/09 [...] TWICE A DAY 03/20/11 09/03/12 Discontinued Tiotropium [place] 1 IH DAILY pt takes at 1500 [...] Mg PO DAILY 09/03/12 09/17/12 Discontinued Tiotropium [place] 2 Puff IH TWICE A DAY 1 [...] Acetate 1 Ml OP 04/09/13 Active Ipratropium [place] 0.5 Mg IH 04/09/13 Active Guaifenesin/D-Methorphan Hb/Pe [...] Type Severity Reaction Status Last Updated Penicillins ([id number]) Allergy Unknown Active 10/02/05 influenza virus vacc,specific ([id number]) Allergy Unknown Active Immunizations Name Given Type Date of Pneumonia Vaccine 08/28/12 Historical Tetanus Booster (TDap) Unknown Historical Vital Signs Acute Vital Signs Vital Response Date/Time Temperature (Fahrenheit) 97.9 degrees F (97.6 - 99.5) Temperature (Calculated Celsius) 36.67777 degrees C (36.4 - 37.5) Temperature Source Temporal Pulse Rate (adult) 99 bpm (60 - 90) Respiratory Rate 18 bpm (12 - 24) O2 Sat by Pulse Oximetry 98 % (88 - 100) Blood Pressure 187/83 mm Hg Pain Pain Intensity 0 Height (Feet) 5 feet Height (Inches) 5 inches Height (Calculated Centimeters) 165.460075 cm Weight (Pounds) 187 pounds Weight (Calculated Kilograms) 84.477313 kilograms Calculated BMI 31.11 Results Laboratory Results [...] 5-9 05/26/2014 4:20pm 05/26/2014 4:42pm Urine Specific [place] 1.015 * 1.016-1.022 05/26/2014 4:20pm 2013 4:42pm [...] 5-9 07/20/2014 2:53pm 07/20/2014 3:38pm Urine Specific [place] 1.010 * 1.016-1.022 07/20/2014 2:53pm 2013 3:38pm [...] Encounters Encounter Location Date/Time Discharged Recurring Via [facility] 08/04/14 1:35pm Departed Emergency Room Via [facility] 07/20/14 2:47pm
[2016-08-08 09:42] LABS: BASOPHILS # (AUTO) 0.1 10^3/uL (0.0-0.1); BASOPHILS % (AUTO) 1 % (0-10); EOSINOPHILS # (AUTO) 0.3 10^3/uL (0.0-0.3); EOSINOPHILS % (AUTO) 3 % (0-10); LYMPHOCYTES # (AUTO) 3.1 X 10^3 (1.0-4.0); LYMPHOCYTES % (AUTO) 30 % (12-44); MEAN CORPUSCULAR HEMOGLOBIN 29 PG (25-34); MEAN CORPUSCULAR HGB CONC 32 G/DL (32-36); MEAN CORPUSCULAR VOLUME 90 FL (80-99); MEAN PLATELET VOLUME 8.3 FL (7.4-10.4); MONOCYTES # (AUTO) 0.6 X 10^3 (0.0-1.0); MONOCYTES % (AUTO) 6 % (0-12); NEUTROPHILS # (AUTO) 6.1 X 10^3 (1.8-7.8); NEUTROPHILS % (AUTO) 60 % (42-75); PLATELET COUNT 166 10^3/uL (130-400); RED BLOOD COUNT 3.71 10^6/uL (4.35-5.85); RED CELL DISTRIBUTION WIDTH 14.3 % (10.0-14.5); WHITE BLOOD COUNT 10.1 10^3/uL (4.3-11.0)
[2016-08-22 09:55] LABS: BASOPHILS # (AUTO) 0.1 10^3/uL (0.0-0.1); BASOPHILS % (AUTO) 1 % (0-10); EOSINOPHILS # (AUTO) 0.3 10^3/uL (0.0-0.3); EOSINOPHILS % (AUTO) 4 % (0-10); LYMPHOCYTES # (AUTO) 2.5 X 10^3 (1.0-4.0); LYMPHOCYTES % (AUTO) 29 % (12-44); MEAN CORPUSCULAR HEMOGLOBIN 28 PG (25-34); MEAN CORPUSCULAR HGB CONC 31 G/DL (32-36); MEAN CORPUSCULAR VOLUME 90 FL (80-99); MEAN PLATELET VOLUME 8.2 FL (7.4-10.4); MONOCYTES # (AUTO) 0.5 X 10^3 (0.0-1.0); MONOCYTES % (AUTO) 6 % (0-12); NEUTROPHILS # (AUTO) 5.3 X 10^3 (1.8-7.8); NEUTROPHILS % (AUTO) 61 % (42-75); PLATELET COUNT 140 10^3/uL (130-400); RED BLOOD COUNT 3.52 10^6/uL (4.35-5.85); RED CELL DISTRIBUTION WIDTH 14.9 % (10.0-14.5); WHITE BLOOD COUNT 8.7 10^3/uL (4.3-11.0)
[2016-09-05 10:10] LABS: BASOPHILS % (AUTO) 0 % (0-10); EOSINOPHILS # (AUTO) 0.3 10^3/uL (0.0-0.3); EOSINOPHILS % (AUTO) 3 % (0-10); LYMPHOCYTES # (AUTO) 2.2 X 10^3 (1.0-4.0); LYMPHOCYTES % (AUTO) 22 % (12-44); MEAN CORPUSCULAR HEMOGLOBIN 28 PG (25-34); MEAN CORPUSCULAR HGB CONC 31 G/DL (32-36); MEAN CORPUSCULAR VOLUME 88 FL (80-99); MEAN PLATELET VOLUME 8.4 FL (7.4-10.4); MONOCYTES # (AUTO) 0.7 X 10^3 (0.0-1.0); MONOCYTES % (AUTO) 7 % (0-12); NEUTROPHILS # (AUTO) 6.8 X 10^3 (1.8-7.8); NEUTROPHILS % (AUTO) 67 % (42-75); PLATELET COUNT 174 10^3/uL (130-400); RED BLOOD COUNT 3.52 10^6/uL (4.35-5.85); WHITE BLOOD COUNT 10.1 10^3/uL (4.3-11.0)
[2016-09-05 10:49] LABS: ALBUMIN 4.5 G/DL (3.2-4.5); BILIRUBIN,TOTAL 0.8 MG/DL (0.1-1.0); CALCIUM 10.1 MG/DL (8.5-10.1); CREATININE SERUM 1.92 MG/DL (0.60-1.30); POTASSIUM 4.1 MMOL/L (3.6-5.0); TOTAL PROTEIN 7.4 G/DL (6.4-8.2)
[2016-09-05 11:31] LABS: BILIRUBIN,URINE NEGATIVE (NEGATIVE); KETONES,URINE NEGATIVE (NEGATIVE); LEUKOCYTE ESTERASE ,URINE 3+ (NEGATIVE); NITRITE,URINE NEGATIVE (NEGATIVE); PH,URINE 6.5 (5-9); PROTEIN,URINE 3+ (NEGATIVE); UROBILINOGEN,URINE NORMAL (NORMAL)
[2016-09-05 11:56] LABS: SQUAMOUS EPITHELIAL CELL,UR 0-2 /HPF; WBC,URINE >100 /HPF
[2016-09-19 13:52] LABS: BASOPHILS % (AUTO) 0 % (0-10); EOSINOPHILS # (AUTO) 0.2 10^3/uL (0.0-0.3); EOSINOPHILS % (AUTO) 2 % (0-10); LYMPHOCYTES % (AUTO) 29 % (12-44); MEAN CORPUSCULAR HEMOGLOBIN 27 PG (25-34); MEAN CORPUSCULAR HGB CONC 31 G/DL (32-36); MEAN CORPUSCULAR VOLUME 89 FL (80-99); MEAN PLATELET VOLUME 8.6 FL (7.4-10.4); MONOCYTES # (AUTO) 0.6 X 10^3 (0.0-1.0); MONOCYTES % (AUTO) 5 % (0-12); NEUTROPHILS # (AUTO) 6.7 X 10^3 (1.8-7.8); NEUTROPHILS % (AUTO) 64 % (42-75); PLATELET COUNT 172 10^3/uL (130-400); RED BLOOD COUNT 3.55 10^6/uL (4.35-5.85); RED CELL DISTRIBUTION WIDTH 16.7 % (10.0-14.5); WHITE BLOOD COUNT 10.5 10^3/uL (4.3-11.0)
[2016-10-03 10:59] LABS: BASOPHILS % (AUTO) 0 % (0-10); EOSINOPHILS # (AUTO) 0.3 10^3/uL (0.0-0.3); EOSINOPHILS % (AUTO) 3 % (0-10); LYMPHOCYTES # (AUTO) 2.9 X 10^3 (1.0-4.0); LYMPHOCYTES % (AUTO) 31 % (12-44); MEAN CORPUSCULAR HEMOGLOBIN 28 PG (25-34); MEAN CORPUSCULAR HGB CONC 32 G/DL (32-36); MEAN CORPUSCULAR VOLUME 90 FL (80-99); MEAN PLATELET VOLUME 8.4 FL (7.4-10.4); MONOCYTES # (AUTO) 0.6 X 10^3 (0.0-1.0); MONOCYTES % (AUTO) 6 % (0-12); NEUTROPHILS # (AUTO) 5.8 X 10^3 (1.8-7.8); NEUTROPHILS % (AUTO) 60 % (42-75); PLATELET COUNT 132 10^3/uL (130-400); RED BLOOD COUNT 3.46 10^6/uL (4.35-5.85); RED CELL DISTRIBUTION WIDTH 19.1 % (10.0-14.5); WHITE BLOOD COUNT 9.6 10^3/uL (4.3-11.0)
[2016-10-17 13:59] LABS: BASOPHILS % (AUTO) 0 % (0-10); EOSINOPHILS # (AUTO) 0.3 10^3/uL (0.0-0.3); EOSINOPHILS % (AUTO) 3 % (0-10); LYMPHOCYTES # (AUTO) 2.2 X 10^3 (1.0-4.0); LYMPHOCYTES % (AUTO) 26 % (12-44); MEAN CORPUSCULAR HEMOGLOBIN 29 PG (25-34); MEAN CORPUSCULAR HGB CONC 32 G/DL (32-36); MEAN CORPUSCULAR VOLUME 90 FL (80-99); MEAN PLATELET VOLUME 8.5 FL (7.4-10.4); MONOCYTES # (AUTO) 0.5 X 10^3 (0.0-1.0); MONOCYTES % (AUTO) 6 % (0-12); NEUTROPHILS # (AUTO) 5.5 X 10^3 (1.8-7.8); NEUTROPHILS % (AUTO) 65 % (42-75); PLATELET COUNT 136 10^3/uL (130-400); RED BLOOD COUNT 3.61 10^6/uL (4.35-5.85); RED CELL DISTRIBUTION WIDTH 19.3 % (10.0-14.5); WHITE BLOOD COUNT 8.6 10^3/uL (4.3-11.0)
[~2016-10-31 09:52] MED LIST changes: +DARBEPOETIN 10 MCG/0.4 ML ARANESP IJ SCH; +FERRIC CARBOXYMALTOSE 750 MG/15 ML (CANCER CTR) IV SCH
[2016-10-31 10:09] LABS: BASOPHILS % (AUTO) 0 % (0-10); EOSINOPHILS # (AUTO) 0.3 10^3/uL (0.0-0.3); EOSINOPHILS % (AUTO) 3 % (0-10); LYMPHOCYTES # (AUTO) 2.9 X 10^3 (1.0-4.0); LYMPHOCYTES % (AUTO) 30 % (12-44); MEAN CORPUSCULAR HEMOGLOBIN 29 PG (25-34); MEAN CORPUSCULAR HGB CONC 32 G/DL (32-36); MEAN CORPUSCULAR VOLUME 90 FL (80-99); MEAN PLATELET VOLUME 8.1 FL (7.4-10.4); MONOCYTES # (AUTO) 0.5 X 10^3 (0.0-1.0); MONOCYTES % (AUTO) 5 % (0-12); NEUTROPHILS # (AUTO) 5.8 X 10^3 (1.8-7.8); NEUTROPHILS % (AUTO) 61 % (42-75); PLATELET COUNT 139 10^3/uL (130-400); RED BLOOD COUNT 3.56 10^6/uL (4.35-5.85); RED CELL DISTRIBUTION WIDTH 19.8 % (10.0-14.5); WHITE BLOOD COUNT 9.6 10^3/uL (4.3-11.0)
[2016-10-31 10:35] LABS: ALBUMIN 4.3 G/DL (3.2-4.5); BILIRUBIN,TOTAL 0.8 MG/DL (0.1-1.0); CALCIUM 9.6 MG/DL (8.5-10.1); CREATININE SERUM 2.07 MG/DL (0.60-1.30); POTASSIUM 4.9 MMOL/L (3.6-5.0)
[2016-10-31] MEDS ORDERED: DARBEPOETIN 25 MCG/ML (CANCER CTR) 1 ML VIAL SC SCH (11:45)
[2016-10-31 11:53] LABS: BILIRUBIN,URINE NEGATIVE (NEGATIVE); KETONES,URINE NEGATIVE (NEGATIVE); LEUKOCYTE ESTERASE ,URINE 2+ (NEGATIVE); NITRITE,URINE NEGATIVE (NEGATIVE); PH,URINE 5 (5-9); PROTEIN,URINE 3+ (NEGATIVE); UROBILINOGEN,URINE NORMAL (NORMAL)
[2016-10-31 12:07] LABS: HYALINE CASTS, URINE RARE /LPF; RENAL EPITHELIAL CELLS,URINE RARE /HPF
== END 2016-11-06 | disposition home or self-care (01) ==
LOC: ONC 09:52
PROVIDERS: ATTEND Internal Medicine Hematology & Oncology
DX: N18.3 Chronic kidney disease, stage 3 (moderate) (principal); D63.1 Anemia in chronic kidney disease; D50.0 Iron deficiency anemia secondary to blood loss (chronic); Z79.899 Other long term (current) drug therapy; R82.99 Other abnormal findings in urine
CPT/HCPCS: 36415; 80053; 81000; 82728; 85025; 87077; 87088; 96365; 96372; 99213

== ENCOUNTER → 2016-10-31 | Outpatient (CLI) | payer MEDICARE, MEDICAID ==
[2016-10-31 10:57] LABS: THYROID STIMULATING HORMONE 1.53 UIU/ML (0.35-4.94)
== END ==
LOC: LAB 10-17 13:45
PROVIDERS: ATTEND Internal Medicine
DX: E11.9 Type 2 diabetes mellitus without complications (principal); I10 Essential (primary) hypertension; E78.5 Hyperlipidemia, unspecified; Z79.899 Other long term (current) drug therapy
CPT/HCPCS: 36415; 80061; 83036; 84443

== ENCOUNTER → 2016-11-04 | Outpatient (CLI) | payer MEDICARE, MEDICAID ==
[~2016-11-04] MED LIST changes: -DARBEPOETIN 10 MCG/0.4 ML ARANESP IJ SCH; -FERRIC CARBOXYMALTOSE 750 MG/15 ML (CANCER CTR) IV SCH
--- NOTE | 2016-11-04 11:41 | Diagnostic Imaging Report ---
PROCEDURE: CT head without contrast. TECHNIQUE: Multiple contiguous axial images were obtained through the brain without the use of intravenous contrast. INDICATION: Altered mental status. Headache. FINDINGS: There is no intracranial hemorrhage, edema, or mass effect. Periventricular and deep white matter hypodensities compatible with chronic microvascular ischemic changes are seen. No hydrocephalus. No extra-axial fluid collection seen. The calvarium, the visualized portions of the paranasal sinuses and orbits appear grossly unremarkable. IMPRESSION: Unremarkable exam. Dictated by: Dictated on workstation # [id number]
== END ==
LOC: RAD 10:56
PROVIDERS: ATTEND Nurse Practitioner Adult Health
DX: R41.82 Altered mental status, unspecified (principal); R26.81 Unsteadiness on feet
CPT/HCPCS: 70450

== ENCOUNTER 2017-01-23 12:54 | Outpatient (RCR) | payer MEDICARE, MEDICAID ==
[2016-11-14 11:06] LABS: BASOPHILS # (AUTO) 0.1 10^3/uL (0.0-0.1); BASOPHILS % (AUTO) 1 % (0-10); EOSINOPHILS # (AUTO) 0.2 10^3/uL (0.0-0.3); EOSINOPHILS % (AUTO) 3 % (0-10); LYMPHOCYTES # (AUTO) 2.4 X 10^3 (1.0-4.0); LYMPHOCYTES % (AUTO) 30 % (12-44); MEAN CORPUSCULAR HEMOGLOBIN 29 PG (25-34); MEAN CORPUSCULAR HGB CONC 31 G/DL (32-36); MEAN CORPUSCULAR VOLUME 94 FL (80-99); MEAN PLATELET VOLUME 8.1 FL (7.4-10.4); MONOCYTES # (AUTO) 0.5 X 10^3 (0.0-1.0); MONOCYTES % (AUTO) 6 % (0-12); NEUTROPHILS # (AUTO) 5.1 X 10^3 (1.8-7.8); NEUTROPHILS % (AUTO) 61 % (42-75); PLATELET COUNT 119 10^3/uL (130-400); RED BLOOD COUNT 3.54 10^6/uL (4.35-5.85); RED CELL DISTRIBUTION WIDTH 18.8 % (10.0-14.5); WHITE BLOOD COUNT 8.2 10^3/uL (4.3-11.0)
[2016-11-28 11:35] LABS: BASOPHILS % (AUTO) 1 % (0-10); EOSINOPHILS # (AUTO) 0.2 10^3/uL (0.0-0.3); EOSINOPHILS % (AUTO) 3 % (0-10); LYMPHOCYTES # (AUTO) 2.1 X 10^3 (1.0-4.0); LYMPHOCYTES % (AUTO) 27 % (12-44); MEAN CORPUSCULAR HEMOGLOBIN 29 PG (25-34); MEAN CORPUSCULAR HGB CONC 31 G/DL (32-36); MEAN CORPUSCULAR VOLUME 94 FL (80-99); MEAN PLATELET VOLUME 8.5 FL (7.4-10.4); MONOCYTES # (AUTO) 0.5 X 10^3 (0.0-1.0); MONOCYTES % (AUTO) 6 % (0-12); NEUTROPHILS # (AUTO) 4.9 X 10^3 (1.8-7.8); NEUTROPHILS % (AUTO) 63 % (42-75); PLATELET COUNT 128 10^3/uL (130-400); RED BLOOD COUNT 3.45 10^6/uL (4.35-5.85); RED CELL DISTRIBUTION WIDTH 17.5 % (10.0-14.5); WHITE BLOOD COUNT 7.8 10^3/uL (4.3-11.0)
[2016-12-12 12:40] LABS: BASOPHILS % (AUTO) 0 % (0-10); EOSINOPHILS # (AUTO) 0.3 10^3/uL (0.0-0.3); EOSINOPHILS % (AUTO) 3 % (0-10); LYMPHOCYTES # (AUTO) 2.5 X 10^3 (1.0-4.0); LYMPHOCYTES % (AUTO) 25 % (12-44); MEAN CORPUSCULAR HEMOGLOBIN 29 PG (25-34); MEAN CORPUSCULAR HGB CONC 32 G/DL (32-36); MEAN CORPUSCULAR VOLUME 93 FL (80-99); MEAN PLATELET VOLUME 8.9 FL (7.4-10.4); MONOCYTES # (AUTO) 0.5 X 10^3 (0.0-1.0); MONOCYTES % (AUTO) 5 % (0-12); NEUTROPHILS # (AUTO) 6.6 X 10^3 (1.8-7.8); NEUTROPHILS % (AUTO) 67 % (42-75); PLATELET COUNT 125 10^3/uL (130-400); RED BLOOD COUNT 3.45 10^6/uL (4.35-5.85); RED CELL DISTRIBUTION WIDTH 15.7 % (10.0-14.5); WHITE BLOOD COUNT 9.9 10^3/uL (4.3-11.0)
[2016-12-26 09:57] LABS: BASOPHILS % (AUTO) 0 % (0-10); EOSINOPHILS # (AUTO) 0.3 10^3/uL (0.0-0.3); EOSINOPHILS % (AUTO) 4 % (0-10); LYMPHOCYTES # (AUTO) 2.2 X 10^3 (1.0-4.0); LYMPHOCYTES % (AUTO) 26 % (12-44); MEAN CORPUSCULAR HEMOGLOBIN 30 PG (25-34); MEAN CORPUSCULAR HGB CONC 32 G/DL (32-36); MEAN CORPUSCULAR VOLUME 93 FL (80-99); MEAN PLATELET VOLUME 8.3 FL (7.4-10.4); MONOCYTES # (AUTO) 0.5 X 10^3 (0.0-1.0); MONOCYTES % (AUTO) 6 % (0-12); NEUTROPHILS # (AUTO) 5.6 X 10^3 (1.8-7.8); NEUTROPHILS % (AUTO) 64 % (42-75); PLATELET COUNT 131 10^3/uL (130-400); RED BLOOD COUNT 3.18 10^6/uL (4.35-5.85); RED CELL DISTRIBUTION WIDTH 15.7 % (10.0-14.5); WHITE BLOOD COUNT 8.7 10^3/uL (4.3-11.0)
[2016-12-26 10:32] LABS: ALBUMIN 4.3 G/DL (3.2-4.5); BILIRUBIN,TOTAL 0.7 MG/DL (0.1-1.0); CALCIUM 10.2 MG/DL (8.5-10.1); CREATININE SERUM 1.95 MG/DL (0.60-1.30); POTASSIUM 4.5 MMOL/L (3.6-5.0); TOTAL PROTEIN 6.8 G/DL (6.4-8.2)
[2017-01-09 12:08] LABS: BASOPHILS % (AUTO) 0 % (0-10); EOSINOPHILS # (AUTO) 0.3 10^3/uL (0.0-0.3); EOSINOPHILS % (AUTO) 3 % (0-10); LYMPHOCYTES # (AUTO) 2.4 X 10^3 (1.0-4.0); LYMPHOCYTES % (AUTO) 26 % (12-44); MEAN CORPUSCULAR HEMOGLOBIN 29 PG (25-34); MEAN CORPUSCULAR HGB CONC 31 G/DL (32-36); MEAN CORPUSCULAR VOLUME 93 FL (80-99); MEAN PLATELET VOLUME 9.2 FL (7.4-10.4); MONOCYTES # (AUTO) 0.6 X 10^3 (0.0-1.0); MONOCYTES % (AUTO) 7 % (0-12); NEUTROPHILS # (AUTO) 6.2 X 10^3 (1.8-7.8); NEUTROPHILS % (AUTO) 65 % (42-75); PLATELET COUNT 135 10^3/uL (130-400); RED BLOOD COUNT 3.29 10^6/uL (4.35-5.85); RED CELL DISTRIBUTION WIDTH 14.3 % (10.0-14.5); WHITE BLOOD COUNT 9.5 10^3/uL (4.3-11.0)
[~2017-01-23 12:54] MED LIST changes: +DARBEPOETIN 25 MCG/ML (CANCER CTR) 1 ML VIAL SC SCH; +OLME40TA12 PO; -OLME40TA16 PO
[2017-01-23 13:06] LABS: BASOPHILS # (AUTO) 0.1 10^3/uL (0.0-0.1); BASOPHILS % (AUTO) 1 % (0-10); EOSINOPHILS # (AUTO) 0.3 10^3/uL (0.0-0.3); EOSINOPHILS % (AUTO) 4 % (0-10); LYMPHOCYTES # (AUTO) 2.2 X 10^3 (1.0-4.0); LYMPHOCYTES % (AUTO) 28 % (12-44); MEAN CORPUSCULAR HEMOGLOBIN 29 PG (25-34); MEAN CORPUSCULAR HGB CONC 31 G/DL (32-36); MEAN CORPUSCULAR VOLUME 92 FL (80-99); MEAN PLATELET VOLUME 8.1 FL (7.4-10.4); MONOCYTES # (AUTO) 0.4 X 10^3 (0.0-1.0); MONOCYTES % (AUTO) 5 % (0-12); NEUTROPHILS % (AUTO) 63 % (42-75); PLATELET COUNT 155 10^3/uL (130-400); RED BLOOD COUNT 3.26 10^6/uL (4.35-5.85); RED CELL DISTRIBUTION WIDTH 14.6 % (10.0-14.5); WHITE BLOOD COUNT 7.9 10^3/uL (4.3-11.0)
== END 2017-02-12 | disposition home or self-care (01) ==
LOC: ONC 12:54
PROVIDERS: ATTEND Internal Medicine Hematology & Oncology
DX: N18.3 Chronic kidney disease, stage 3 (moderate) (principal); D63.1 Anemia in chronic kidney disease; D50.0 Iron deficiency anemia secondary to blood loss (chronic); Z79.899 Other long term (current) drug therapy
CPT/HCPCS: 36415; 80053; 82728; 85025; 96372; 99213

== ENCOUNTER → 2017-02-11 | Outpatient (CLI) | payer MEDICARE, MEDICAID ==
[~2017-02-11] MED LIST changes: +ACID1TAB PO; +ALBU18HF2 INH; +ASPI-983 PO; +CIPR-242 PO; +CITA20TA7 PO; -DARBEPOETIN 25 MCG/ML (CANCER CTR) 1 ML VIAL SC SCH; +FISH1CAP15 PO; +FLUT16SP22 NS; +LEVO125T6 PO; +LORA10TA7 PO; -METO-272 PO; +METO-370 PO; +NYST15CR TP
--- NOTE | 2017-02-11 16:15 | Diagnostic Imaging Report ---
EXAMINATION: Three views of the left knee. INDICATION: Injury. 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 The tibial component appears to be slightly tilted superiorly along its lateral aspect. No abnormal lucency around the prosthesis however or evidence of an acute change. There is cement seen around both the femoral and the tibial components and there is patellar resurfacing and prosthesis also noted. No acute fracture is seen. Small suprapatellar density may relate to an effusion. IMPRESSION: No acute fracture. Position of the joint prosthesis is described. Question of small suprapatellar effusion. Dictated by: Dictated on workstation # [id number]
== END ==
LOC: RAD 15:24
PROVIDERS: ATTEND Nurse Practitioner
DX: S89.92XA Unspecified injury of left lower leg, initial encounter (principal); Z96.652 Presence of left artificial knee joint; X58.XXXA Exposure to other specified factors, initial encounter; Y99.8 Other external cause status
CPT/HCPCS: 73562

== ENCOUNTER → 2017-02-13 | Outpatient (CLI) | payer MEDICARE, MEDICAID | LOC: LAB 01-09 11:07 | PROVIDERS: ATTEND Internal Medicine | DX: E11.9 Type 2 diabetes mellitus without complications (principal); I10 Essential (primary) hypertension; E78.5 Hyperlipidemia, unspecified; Z79.899 Other long term (current) drug therapy | CPT/HCPCS: 36415; 83036 ==

== ENCOUNTER 2017-04-03 10:50 | Inpatient (IN) | payer MEDICARE, MEDICAID ==
[~2017-04-03] VITALS: Ht 167.6 cm; Wt 85.3 kg
[~2017-04-03 10:50] MED LIST changes: -ACID1TAB PO; -ALBU18HF2 INH; -ASPI-983 PO; -CIPR-242 PO; -CITA20TA7 PO; -FISH1CAP15 PO; -FLUT16SP22 NS; -LEVO125T6 PO; -LORA10TA7 PO; +METO-272 PO; -METO-370 PO; -NYST15CR TP
--- OUTSIDE RECORDS SUMMARY | 2017-04-03 10:58 | XMS REPORT ---
Author Author JAMES SAMUEL Organization [employer] Address Unknown Phone Unavailable Care Team Providers Care Case Making Machine Operator Name Role Phone JAMES SAMUEL CP Unavailable Allergies, Adverse Reactions, Alerts Substance Reaction Event Type Penicillin G Benzathine Info Not Available Drug Allergy Problems Problem Type Condition Code Onset Dates Condition Status Assessment Dental examination Z01.20 Active Medications Medication Code System Code Instructions Start Date End Date Status Dosage Benicar HCT [facility] [address]-58 40-12.5 MG Orally Once a day 1 tablet Procedures Procedure Coding System Code Date PROPHYLAXIS - ADULT CPT-4 D1110 Apr 28, 2015 Vital Signs Date/Time: Apr 28, 2015 Blood Pressure Diastolic 82 mmHg Blood Pressure Systolic 153 mmHg Results No Known Results Summary Purpose [employer] Submission
--- OUTSIDE RECORDS SUMMARY | 2017-04-03 11:02 | XMS REPORT ---
Author Author STEPHANIE ALLEN Organization [employer] Address Unknown Phone Unavailable Care Team Providers Care Office Specialist Name Role Phone STEPHANIE ALLEN CP Unavailable Allergies No Known Allergies Problems Problem Type Condition ICD-9 Code Onset Dates Condition Status Assessment Dental examination V72.2 Active Medications No Known Medications Procedures Procedure Coding System Code Date Billing Notes on claim CPT-4 EC109 February 13, 2015 Results No Known Results Summary Purpose [employer] Submission
--- OUTSIDE RECORDS SUMMARY | 2017-04-03 11:04 | XMS REPORT | CCD ---
Author Author JAIRO HOOPER Organization Unknown Address [address] [facility] [address] [place], [place] [id number] Care Team Providers Care Apple Picker Name Role Phone FELICITAS TY, TAPAN Infante Attphyshruthi TAPAN POLK MD Vital Signs Unknown or Not Available. Allergies Unknown or Not Available. Procedures Procedure Code Procedure Type Date ^UA WITH MICRO 281136213 SNOMED CT 02/10/2016 ^CBC W/ MANUAL DIFF 83495212 SNOMED CT 02/10/2016 UA ROUTINE C&S IF IND 231880271 SNOMED CT 02/10/[address] 02/10/2016 TROPONIN-I ADV 390969636 SNOMED CT 02/10/2016 COMPREHENSIVE METABOLIC PANEL 431844434 SNOMED CT 2015 CBC W/ AUTO DIFF (RFLX MAN DIFF IF IND) 8756510 SNOMED CT 02/10/2016 History of Immunizations Unknown or Not Available. Problems Unknown or Not Available. Results COMPREHENSIVE METABOLIC PANEL - Collect Date/Time: 02/10/2016 14:20 Test Name Code Test Result Test Units Test Ref Range GLUCOSE 2345-7 175 MG/DL L=70 H=100 SODIUM 2951-2 125 MEQ/L L=135 H=148 POTASSIUM 2823-3 5.4 MEQ/L L=3.5 H=5.3 CHLORIDE 2075-0 95 MEQ/L L=96 H=110 CO2 2028-9 18 MEQ/L L=22 H=29 BUN 3094-0 29 MG/DL L=8 H=22 CREATININE 2160-0 1.7 MG/DL L=0.6 H=1.6 SGOT/AST 1920-8 13 IU/L L=10 H=40 SGPT/ALT 1742-6 10 IU/L L=8 H=54 ALK PHOS 6768-6 111 IU/L L=35 H=115 TOTAL PROTEIN 2885-2 6.7 G/DL L=5.5 H=8.5 ALBUMIN 1751-7 4.3 G/DL L=3.1 H=5.4 TOTAL BILI 1975-2 0.7 MG/DL L=0.0 H=1.5 CALCIUM 79819-8 10.5 MG/DL L=8.2 H=10.6 AGE 81 yrs GFR NonAA 29 GFR AA 35 eGFR 29 mL/min/1.7 eGFR AA* 35 mL/min/1.7 CPK - Collect Date/Time: 02/10/2016 14:20 Test Name Code Test Result Test Units Test Ref Range CPK 2157-6 49 IU/L L=0 H=235 CBC W/ AUTO DIFF (RFLX MAN DIFF IF IND) - Collect Date/Time: 02/10/2016 14:20 Test Name Code Test Result Test Units Test Ref Range WBC 72402-7 13.5 TH/CMM L=4.5 H=10.8 RBC 789-8 3.46 ML/CMM L=4.20 H=5.40 HGB 718-7 9.4 G/DL L=12.0 H=16.0 HCT 4544-3 29.5 % L=37.0 H=47.0 MCV 85 FL L=81 H=99 MCH 27.2 PG L=27.0 H=33.0 MCHC 31.9 G/DL L=31.0 H=36.0 RDW SD 48 FL L=36 H=50 RDW CV 15.4 % L=0.0 H=14.8 MPV 8.5 FL L=9.3 H=12.5 PLT 777-3 133 TH/CMM L=130 H=440 NRBC# 0.00 TH/CMM L=0.00 H=0.00 NRBC% 0.0 /100WBC L=0.0 H=2.0 %NEUT 86.7 % %LYMP 6.8 % %MONO 5.0 % %EOS 0.7 % %BASO 0.4 % #NEUT 11.68 TH/CMM L=2.10 H=8.20 #LYMP 0.92 TH/CMM L=0.90 H=5.20 #MONO 0.67 TH/CMM L=0.16 H=1.00 #EOS 0.09 TH/CMM L=0.00 H=0.80 #BASO 0.05 TH/CMM L=0.00 H=0.20 SEGS 88 % BANDS 4 % LYMPHS 8 % MANUAL DIFF SEE BELOW N/A ANISO 1+ N/A UA ROUTINE C&S IF IND - Collect Date/Time: 02/10/2016 14:45 Test Name Code Test Result Test Units Test Ref Range COLOR YELLOW N/A NL: YELLOW APPEARANCE CLEAR N/A NL: CLEAR SPEC GRAV 1.015 N/A NL: 1.002 - 1.022 pH 6.0 N/A NL: 5 - 9 PROTEIN 100 N/A NL: NEGATIVE mg/dl GLUCOSE NEGATIVE N/A NL: NEGATIVE mg/dl KETONE NEGATIVE N/A NL: NEGATIVE mg/dl BILIRUBIN NEGATIVE N/A NL: NEGATIVE BLOOD NEGATIVE N/A NL: NEGATIVE NITRITE NEGATIVE N/A NL: NEGATIVE LEUK SCREEN NEGATIVE N/A NL: NEGATIVE MICRO INDICATED? SEE BELOW N/A WBC/HPF 0-5 N/A NL: NEGATIVE RBC/HPF NEGATIVE N/A NL: NEGATIVE CASTS/LPF NEGATIVE N/A NL: NEGATIVE CRYSTALS NEGATIVE N/A NL: NEGATIVE MUCOUS THRDS NEGATIVE N/A NL: NEGATIVE BACTERIA NEGATIVE N/A NL: NEGATIVE EPITH CELLS 2++ SQUAMOUS N/A NL: NEGATIVE TRICHOMONAS NEGATIVE N/A NL: NEGATIVE YEAST NEGATIVE N/A NL: NEGATIVE CULT SET UP? NO N/A TROPONIN-I ADV - Collect Date/Time: 02/10/2016 14:20 Test Name Code Test Result Test Units [place] [address]-0 <0.04 ng/mL L=0.04 H= 0.40 Active Medications Unknown or Not Available. Medications Administered During Visit Unknown or Not Available. Encounters Encounter Diagnosis Diagnosis Code Start Date Heat exhaustion due to salt depletion, initial encounter [id number] 02/10/2016 Social History Smoking Status Code Start Date End Date Never smoker [id number] Patient Decision Aids Unknown or Not Available. Discharge Instructions You were admitted to [facility] on 02/10/2016 14:07 with a principal diagnosis of Heat exhaustion due to salt depletion, initial encounter You had the following tests done: CBC W/ AUTO DIFF (RFLX MAN DIFF IF IND) COMPREHENSIVE METABOLIC PANEL CPK TROPONIN-I ADV UA ROUTINE C&S IF IND You were discharged from [facility] on 02/10/2016 15:44 Should you have any questions prior to discharge, please contact a member of your healthcare team. If you have left the hospital and have any questions, please contact your primary care physician. Chief Complaint and Reason For Visit Chief Complaint Date of Onset HEAT EXPOSURE Function Status Unknown or Not Available. Plan of Care Unknown or Not Available. Referral/Transition of Care Unknown or Not Available.
[2017-04-03] MEDS ORDERED: NS IV 1000 ML 1,000 ML IV ONE ×2 (11:15→14:15)
[2017-04-03] MEDS ORDERED: ACETAMINOPHEN 325 MG TABLET/CAPLET (TYLENOL) PO STA (11:23)
[2017-04-03 11:25] LABS: BILIRUBIN,URINE NEGATIVE (NEGATIVE); KETONES,URINE NEGATIVE (NEGATIVE); LEUKOCYTE ESTERASE ,URINE 3+ (NEGATIVE); NITRITE,URINE POSITIVE (NEGATIVE); PH,URINE 6 (5-9); PROTEIN,URINE 3+ (NEGATIVE); UROBILINOGEN,URINE NORMAL (NORMAL)
[2017-04-03] MEDS ORDERED: LEVOFLOXACIN 500 MG/100 ML IV 100 ML IV ONE (11:30)
[2017-04-03 11:36] LABS: BASOPHILS % (AUTO) 0 % (0-10); EOSINOPHILS % (AUTO) 0 % (0-10); LYMPHOCYTES # (AUTO) 0.9 X 10^3 (1.0-4.0); LYMPHOCYTES % (AUTO) 6 % (12-44); MEAN CORPUSCULAR HEMOGLOBIN 28 PG (25-34); MEAN CORPUSCULAR HGB CONC 32 G/DL (32-36); MEAN CORPUSCULAR VOLUME 87 FL (80-99); MEAN PLATELET VOLUME 9.1 FL (7.4-10.4); MONOCYTES # (AUTO) 1.1 X 10^3 (0.0-1.0); MONOCYTES % (AUTO) 7 % (0-12); NEUTROPHILS # (AUTO) 14.6 X 10^3 (1.8-7.8); NEUTROPHILS % (AUTO) 88 % (42-75); PLATELET COUNT 160 10^3/uL (130-400); RED BLOOD COUNT 3.15 10^6/uL (4.35-5.85); RED CELL DISTRIBUTION WIDTH 17.4 % (10.0-14.5); WHITE BLOOD COUNT 16.6 10^3/uL (4.3-11.0)
--- NOTE | 2017-04-03 11:41 | Diagnostic Imaging Report ---
CLINICAL INDICATION: Patient states shortness of breath x2 days. EXAM: Portable chest x-ray upright view. COMPARISONS: Chest x-ray dated 12/16/2015. FINDINGS: There is interval improved aeration and resolution of previously seen right lung base infiltrate. There is mild atelectasis in the right midlung field. Otherwise, lungs are clear. There is no pleural effusion or pneumothorax. Pulmonary vasculature and cardiac silhouette is within normal limits. There are degenerative spurs involving the thoracic spine. IMPRESSION: 1: There is no radiographic evidence of acute cardiopulmonary process. 2: Minimal right midlung field atelectasis. 3: Interval resolution of previously seen right lung base infiltrate. Dictated by: Dictated on workstation # [id number]
[2017-04-03 11:42] LABS: WBC,URINE TNTC /HPF
[2017-04-03 11:50] LABS: INR 1.3 (0.8-1.4)
[2017-04-03 11:58] LABS: ALBUMIN 3.6 GM/DL (3.2-4.5); BILIRUBIN,TOTAL 0.8 MG/DL (0.1-1.0); CALCIUM 9.6 MG/DL (8.5-10.1); CREATININE SERUM 2.51 MG/DL (0.60-1.30); POTASSIUM 4.8 MMOL/L (3.6-5.0); TOTAL PROTEIN 6.4 GM/DL (6.4-8.2)
--- NOTE | 2017-04-03 12:13 | ED General ---
General Chief Complaint: General Problems/Pain Stated Complaint: SHAKEY/CONFUSED/WEAK Nursing Triage Note: PT BROUGHT TO ED BY DAUGHTER WITH C/O WEAKNESS AND CONFUSION SINCE LAST NOC. SHE ALSO REPORTS PT FELL YESTERDAY. PT HAS HX OF CHRONIC UTI'S AND IS FEBRILE AT THIS TIME. Nursing Sepsis Screen: Possible Severe Sepsis Risk History of Present Illness Time Seen by Provider: 11:40 Initial Comments Patient reports falling on 04/01/17 at 0200. She was in her bathroom on a tile floor, she started to get up and grabbed a mop bucket for assistance the mop bucket slipped and she fell hitting her left frontal lobe on the tile floor. She denies any loss of consciousness at the time of the fall. She denies taking blood thinners. Her daughter does report that she has had confusion, but she relates it to a possible UTI and has not noticed increased confusion since the fall. She has a history of UTI with similar symptoms. Today upon her awakening, she reports having dysuria, polyuria, feeling shaky and weak. Her daughter reports that she has been dizzy and easily confused. Timing/Duration: 2-3 Days Severity: Mild Modifying Factors: improves with Rest Associated Systoms: Fever/Chills, Headaches (left frontal lobe), Malaise, Weakness, Other (polyuria, dysuria) Allergies and Home Medications Allergies Coded Allergies: Penicillins (Verified Allergy, Unknown, 02/02/15) influenza virus vaccine, specific (Verified Allergy, Unknown, 02/02/15) Home Medications Alprazolam 0.25 Mg Tablet, 0.25 MG PO DAILY, (Reported) Aspirin 325 Mg Tablet.dr, 325 MG PO DAILY, (Reported) Atorvastatin Calcium 40 Mg Tablet, 40 MG PO HS, (Reported) Cyclosporine 1 Each Droperette, 1 DROP OU BID, (Reported) LAST FILLED 06/26/15 #60 VIALS Fluticasone/Salmeterol 1 Each Blst.w.dev, 1 PUFF IH BID, (Reported) Folic Acid 0.8 Mg Tablet, 0.8 MG PO DAILY, (Reported) Furosemide 40 Mg Tablet, 40 MG PO DAILY, (Reported) Gabapentin 100 Mg Capsule, 100 MG PO 0800,1300, (Reported) Gabapentin 100 Mg Capsule, 300 MG PO HS, (Reported) TAKES 3 (100 MG) CAPSULES Insulin Aspart 100 Unit/1 Ml Susp, 15 UNITS SQ AC, (Reported) Insulin Determir 1,000 Units/10 Ml Soln, 60 UNITS SQ BID, (Reported) Levofloxacin 750 Mg Tablet, 750 MG PO Q48H@11 for 4 Days Prescribed by: MICHAEL BARNHART on 12/19/15 1054 Levothyroxine Sodium 150 Mcg Tablet, 150 MCG PO DAILY, (Reported) Meclizine HCl 25 Mg Tablet, 25 MG PO DAILY, (Reported) Metoprolol Succinate 50 Mg Tab.er.24h, 50 MG PO HS, (Reported) Multivitamin 1 Each Tablet, 1 TAB PO DAILY, (Reported) Niacin 1,000 Mg Tab.er.24h, 1,000 MG PO HS, (Reported) Olmesartan Medoxomil 40 Mg Tablet, 40 MG PO DAILY, (Reported) [place]-3 Fatty Acids/Fish Oil 1 Each Capsule, 3,000 MG PO DAILY, (Reported) Omeprazole 40 Mg Capsule.dr, 40 MG PO DAILY, (Reported) Polyvinyl Alcohol/Povidone 15 Ml Drops, 1 DROP OU DAILY PRN for DRY EYES, ( Reported) Solifenacin Succinate 5 Mg Tablet, 5 MG PO DAILY, (Reported) Tiotropium [place] 1 Inh Aerp, 1 CAP IH HS, (Reported) Trazodone HCl 100 Mg Tablet, 100 MG PO HS, (Reported) Constitutional: see HPI, fever, malaise, other (headache) EENTM: see HPI, no symptoms reported Cardiovascular: no symptoms reported, see HPI, No chest pain Gastrointestinal: see HPI, diarrhea (chronic) Genitourinary: see HPI, dysuria, frequency, nocturia, pain Musculoskeletal: no symptoms reported, see HPI Skin: no symptoms reported, see HPI All Other Systems Reviewed Negative Unless Noted: Yes Past Swflrtc-Kyogce-Lkhlic Hx Patient Social History Alcohol Use: Denies Use Recreational Drug Use: No Smoking Status: Never a Smoker 2nd Hand Smoke Exposure: No Recent Foreign Travel: No Contact w/Someone Who Travel: No Recent Infectious Disease Expo: No Recent Hopitalizations: No Physical Abuse: No Sexual Abuse: No Immunizations Up To Date Tetanus Booster (TDap): Unknown Date of Pneumonia Vaccine: Aug 28, 2012 Surgeries History of Surgeries: Yes (SEVERAL) Surgeries: Appendectomy, Hysterectomy Respiratory History of Respiratory Disorde: Yes Respiratory Disorders: Pneumonia, COPD, Emphysema Cardiovascular History of Cardiac Disorders: Yes Cardiac Disorders: Hypertension Neurological History of Neurological Disord: No 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 System Hx 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 Disorders: No Sexually Transmitted Disease: No HIV/AIDS: No Female 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 Disorders: Denies Genitourinary History of Genitourinary Disor: Yes Genitourinary Disorders: UTI-Chronic Gastrointestinal History of Gastrointestinal Di: Yes Gastrointestinal Disorders: Gastroesophageal Reflux, Polyps, Hiatal Hernia Musculoskeletal History of Musculoskeletal Dis: No Endocrine History of Endocrine Disorders: Yes (THYROID DISEASE) Endocrine Disorders: Diabetes, Insulin dep HEENT HEENT Disorders: Cataract Loss of Vision: Denies Hearing Impairment: Denies Cancer History of Cancer: No Psychosocial History of Psychiatric Problem: Yes Behavioral Health Disorders: Anxiety, Depression Suicide Risk Score: 0 Integumentary History of Skin or Integumenta: Yes Blood Transfusions History of Blood Disorders: Yes (ANEMIA) Adverse Reaction to a Blood Tr: No Family Medical History Family Medial History: Arthritis Cardiovascular disease Diabetes mellitus Hypertension Physical Exam-Suspected Sepsis Physical Exam Vital Signs Vital Sign - Last 12Hours 04/03/17 04/03/17 04/03/17 11:00 17:05 20:15 Temp 101.8 Pulse 91 Resp 16 B/P (MAP) 140/56 Pulse Ox 92 O2 Delivery Room Air O2 Flow Rate 2.00 FiO2 28 Capillary Refill : Less Than 3 Seconds Blood Pressure Mean: 84 General Appearance: No Apparent Distress, WD/WN Eyes: Bilateral Eye Normal Inspection, Bilateral Eye PERRL, Bilateral Eye EOMI HEENT: PERRL/EOMI, TMs Normal, Normal ENT Inspection, Pharynx Normal, Other ( small hematoma with ecchymosis to left frontal lobe, trace tenderness in this region.) Neck: Full Range of Motion, Normal Inspection, Non Tender, Carotid Bruit Respiratory: Chest Non Tender, Lungs Clear, Normal Breath Sounds Cardiovascular: Regular Rate, Rhythm, No Murmur, Normal Peripheral Pulses Gastrointestinal: Normal Bowel Sounds, No Organomegaly, Soft, Tenderness ( suprapubic) Back: Normal Inspection, No CVA Tenderness, No Vertebral Tenderness Extremity: Normal Capillary Refill, Normal Inspection, Normal Range of Motion, Non Tender, Pedal Edema (1+ bilaterally) Neurologic/Psychiatric: Alert, Oriented x3, No Motor/Sensory Deficits, Normal Mood/Affect Skin: normal color, warm/dry Lymphatic: No Adenopathy Focused Exam Evaluation Lactate Level Laboratory Tests 04/03/17 11:15: Lactic Acid Level 0.83 Lactic Acid Level Progress/Results/Core Measures Suspected Sepsis Recent Fever Within 48 Hours: Yes Infection Criteria Present: Suspected New Infection New/Unexplained Altered Menta: Yes Sepsis Screen: Possible Severe Sepsis Risk Sepsis Diagnosis: SIRS Temperature:101.8 Pulse: 91 Respiratory Rate: 16 Laboratory Tests 04/03/17 11:15: White Blood Count 16.6H Blood Pressure 140 /56 Mean: 84 Laboratory Tests 04/03/17 11:15: Lactic Acid Level 0.83 Laboratory Tests 04/03/17 11:15: Creatinine 2.51H, INR Comment 1.3, Platelet Count 160, Total Bilirubin 0.8 Results/Orders Lab Results Laboratory Tests Test 04/03/17 11:13 04/03/17 11:15 04/03/17 21:13 Range/Units Urine Color YELLOW Urine Clarity VERY CLOUDY H Urine pH 6 5-9 Urine Specific Wendel 1.010 L 1.016-1.022 Urine Protein 3+ H NEGATIVE Urine Glucose (UA) NEGATIVE NEGATIVE Urine Ketones NEGATIVE NEGATIVE Urine Nitrite POSITIVE H NEGATIVE Urine Bilirubin NEGATIVE NEGATIVE Urine Urobilinogen NORMAL NORMAL MG/DL Urine Leukocyte Esterase 3+ H NEGATIVE Urine RBC (Auto) 4+ H NEGATIVE Urine RBC 5-10 H /HPF Urine WBC TNTC H /HPF Urine Squamous Epithelial Cells NONE /HPF Urine Crystals NONE /LPF Urine Bacteria LARGE H /HPF Urine Casts NONE /LPF Urine Mucus NEGATIVE /LPF Urine Culture Indicated YES White Blood Count 16.6 H 4.3-11.0 10^3/uL Red Blood Count 3.15 L 4.35-5.85 10^6/uL Hemoglobin 8.8 L 11.5-16.0 G/DL Hematocrit 27 L 35-52 % Mean Corpuscular Volume 87 80-99 FL Mean Corpuscular Hemoglobin 28 25-34 PG Mean Corpuscular Hemoglobin Concent 32 32-36 G/DL Red Cell Distribution Width 17.4 H 10.0-14.5 % Platelet Count 160 130-400 10^3/uL Mean Platelet Volume 9.1 7.4-10.4 FL Neutrophils (%) (Auto) 88 H 42-75 % Lymphocytes (%) (Auto) 6 L 12-44 % Monocytes (%) (Auto) 7 0-12 % Eosinophils (%) (Auto) 0 0-10 % Basophils (%) (Auto) 0 0-10 % Neutrophils # (Auto) 14.6 H 1.8-7.8 X 10^3 Lymphocytes # (Auto) 0.9 L 1.0-4.0 X 10^3 Monocytes # (Auto) 1.1 H 0.0-1.0 X 10^3 Eosinophils # (Auto) 0.0 0.0-0.3 10^3/uL Basophils # (Auto) 0.0 0.0-0.1 10^3/uL Neutrophils % (Manual) 89 % Lymphocytes % (Manual) 5 % Monocytes % (Manual) 5 % Eosinophils % (Manual) 0 % Basophils % (Manual) 0 % Band Neutrophils 1 % Anisocytosis MODERATE Prothrombin Time 16.0 H 12.2-14.7 SEC INR Comment 1.3 0.8-1.4 Activated Partial Thromboplast Time 36 H 24-35 SEC Sodium Level 130 L 135-145 MMOL/L Potassium Level 4.8 3.6-5.0 MMOL/L Chloride Level 101 98-107 MMOL/L Carbon Dioxide Level 18 L 21-32 MMOL/L Anion Gap 11 5-14 MMOL/L Blood Urea Nitrogen 38 H 7-18 MG/DL Creatinine 2.51 H 0.60-1.30 MG/DL Estimat Glomerular Filtration Rate 18 BUN/Creatinine Ratio 15 Glucose Level 211 H 70-105 MG/DL Lactic Acid Level 0.83 0.50-2.00 MMOL/L Calcium Level 9.6 8.5-10.1 MG/DL Total Bilirubin 0.8 0.1-1.0 MG/DL Aspartate Amino Transf (AST/SGOT) 25 5-34 U/L Alanine Aminotransferase (ALT/SGPT) 28 0-55 U/L Alkaline Phosphatase 121 40-136 U/L Total Protein 6.4 6.4-8.2 GM/DL Albumin 3.6 3.2-4.5 GM/DL Glucometer 227 H 70-110 MG/DL My Orders Orders - ADDISON HURT Cbc With Automated Diff (04/03/17 11:15) Comprehensive Metabolic Panel (04/03/17 11:15) Ua Culture If Indicated (04/03/17 11:15) Saline Lock/Iv-Start (04/03/17 11:15) Ns Iv 1000 Ml (Sodium Chloride 0.9%) (04/03/17 11:15) Lactic Acid Analyzer (04/03/17 11:21) Blood Culture (04/03/17 11:21) Protime With Inr (04/03/17 11:21) Partial Thromboplastin Time (04/03/17 11:21) Chest 1 View, Ap/Pa Only (04/03/17 11:21) Acetaminophen Tablet/Caplet (Tylenol T (04/03/17 11:23) Levofloxacin 500 Mg/100 Ml Iv (Levaquin (04/03/17 11:30) Catheter(Urinary) To Dependent (04/03/17 11:26) Manual Differential (04/03/17 11:15) Urine Culture (04/03/17 11:13) Ct Head Wo (04/03/17 12:09) Venous Access Request Order (04/03/17 13:26) Saline Lock/Iv-Start (04/03/17 14:15) Ns Iv 1000 Ml (Sodium Chloride 0.9%) (04/03/17 14:15) Chest 1 View, Ap/Pa Only (04/03/17 16:16) Medications Given in ED Current Medications Medications Dose Ordered Sig/Maxim Route Start Time Stop Time Status Last Admin Dose Admin Sodium Chloride 1,000 ml @ 0 mls/hr Q0M ONCE IV 04/03/17 14:15 04/03/17 14:16 DC 04/03/17 16:28 0 MLS/HR Vital Signs/I&O Vital Sign - Last 12Hours 04/03/17 04/03/17 04/03/17 04/03/17 17:05 17:10 19:18 19:19 Temp 98.9 97.2 97.2 Pulse 64 64 66 67 Resp 16 20 20 B/P (MAP) 129/59 138/63 Pulse Ox 100 100 100 O2 Delivery Nasal Cannula Nasal Cannula Nasal Cannula O2 Flow Rate 2.00 2.50 2.50 04/03/17 04/03/17 20:15 21:00 Pulse 69 Pulse Ox 96 O2 Delivery Nasal Cannula O2 Flow Rate 2.00 FiO2 28 Intake and Output 04/04/17 00:00 Intake Total 1000 ml Balance 1000 ml Capillary Refill : Less Than 3 Seconds Blood Pressure Mean: 84 Progress Note : Time: 11:40 Progress Note Initial evaluation completed, workup for sepsis started. Alejandra catheter showed cloudy, thick urine. Normal saline 2.5 L IV. [address] Rivas about patient, recommended admission to medical floor with telemetry. 1300 IV clamped when patient went to radiology and not opened when she returned. IV flushed but when fluids started, it was infiltrated. Attempted IV times 2, with no success. Lab here for 2nd set of blood cultures, unable to obtain. Notified OR for PICC line access. 1330 Dr. Rivas here to see patient. 1340 Spoke to OR, will send staff for PICC line. Discussed patient with Dr. Sharif, agreed with treatment plan and concurred IV antibiotics to be started as soon as access is obtained.Pt vital signs are stable. 1400 second set of blood cultures obtained by lab. Patient declined any problems or concerns at this time. 1545 PICC line required 2 attempts, access established. Second liter normal saline started. Patient to be admitted to floor Levaquin 500 mg IV to be administered. Diagnostic Imaging Diagonstic Imaging: Xray Plain Films/CT/US/NM/MRI: chest Comments NAME: [facility] REC#: [id number] PT STATUS: REG ER : 1935 PHYSICIAN: ADDISON HURT ADMIT DATE: 04/03/17/ER Draft Date of Exam:04/03/17 CHEST 1 VIEW, AP/PA ONLY CLINICAL INDICATION: Patient states shortness of breath x2 days. EXAM: Portable chest x-ray upright view. COMPARISONS: Chest x-ray dated 12/16/2015. FINDINGS: There is interval improved aeration and resolution of previously seen right lung base infiltrate. There is mild atelectasis in the right midlung field. Otherwise, lungs are clear. There is no pleural effusion or pneumothorax. Pulmonary vasculature and cardiac silhouette is within normal limits. There are degenerative spurs involving the thoracic spine. IMPRESSION: 1: There is no radiographic evidence of acute cardiopulmonary process. 2: Minimal right midlung field atelectasis. 3: Interval resolution of previously seen right lung base infiltrate. Dictated on workstation # [id number] Dict: 04/03/17 1134 Trans: 04/03/17 1141 [id number] Interpreted by: CORNELL BERTRAND MD Electronically signed by: Reviewed: Reviewed by Me Diagonstic Imaging: CT Plain Films/CT/US/NM/MRI: head Comments NAME: [facility] REC#: [id number] PT STATUS: REG ER : 1935 PHYSICIAN: ADDISON HURT ADMIT DATE: 04/03/17/ER Draft Date of Exam:04/03/17 CT HEAD WO PROCEDURE: CT head without contrast. TECHNIQUE: Multiple contiguous axial images were obtained through the brain without the use of intravenous contrast. INDICATION: Patient sustained fall two days ago, the study compared 11/04/2016. FINDINGS: There is no intracranial hemorrhage and there are no abnormal extra-axial fluid collections. There is no hemo-sinus and no calvarial fracture deformity. The ventricular system nondilated and nondisplaced, very slight senescent cortical atrophy a stable chronic finding with chronic mild atherosclerotic vascular calcifications. IMPRESSION: Stable mild chronic senescent change, no hemorrhage, fracture deformity or other acute/posttraumatic sequelae identified. Dictated on workstation # [id number] Dict: 04/03/17 1245 Trans: 04/03/17 1252 [facility] [id number] Interpreted by: LJ WILSON Electronically signed by: Reviewed: Reviewed by Me Departure Impression Impression: Primary Impression: Urinary tract infection Qualified Codes: N30.01 - Acute cystitis with hematuria Additional Impressions: Sepsis Qualified Codes: A41.9 - Sepsis, unspecified organism Fall Qualified Codes: W19.XXXA - Unspecified fall, initial encounter Disposition: ADMITTED INPATIENT Condition: Stable Admissions Decision to Admit Reason: Admit from ER (General) Decision to Admit/Date: Apr 03, 2017 Time/Decision to Admit Time: 12:30 Departure-Patient Inst. Referrals: FELICITA CEDEÑO MD (PCP/Family) Primary Care Physician Copy Copies To 1: FELICITA CEDEÑO MD, AMY ARNP Apr 03, 2017 12:13
[2017-04-03 12:17] LABS: ANISOCYTOSIS MODERATE; BAND NEUTROPHILS 1 %; BASOPHILS % (MANUAL) 0 %; EOSINOPHILS % (MANUAL) 0 %; LYMPHOCYTES % (MANUAL) 5 %; NEUTROPHILS % (MANUAL) 89 %
--- NOTE | 2017-04-03 12:53 | Diagnostic Imaging Report ---
PROCEDURE: CT head without contrast. TECHNIQUE: Multiple contiguous axial images were obtained through the brain without the use of intravenous contrast. INDICATION: Patient sustained fall two days ago, the study compared 11/04/2016. FINDINGS: There is no intracranial hemorrhage and there are no abnormal extra-axial fluid collections. There is no hemo-sinus and no calvarial fracture deformity. The ventricular system nondilated and nondisplaced, very slight senescent cortical atrophy a stable chronic finding with chronic mild atherosclerotic vascular calcifications. IMPRESSION: Stable mild chronic senescent change, no hemorrhage, fracture deformity or other acute/posttraumatic sequelae identified. Dictated by: Dictated on workstation # [id number]
--- NOTE | 2017-04-03 15:04 | History & Physical-Hospitalist ---
HPI History of Present Illness: HPI/Chief Complaint CC: Fever/Confusion HPI: Pt is an 82yo CF with PMH of recurrent UTIs, DM, CAD s/p stent, hypothyroidism who presented to the ER with CC of confusion and fevers. Per patient she fell getting up form the bathroom 2 days ago and hit her head. Per her daughter who lives with her over the last two days she has not been acting right and has fallen again since then. Last night she seemed more confused and weak when she went to bed. She awoke this morning with profound weakness ( unable to sit up from a chair), confused, and was shaking. Her daughter called her PCP who recommended sending her to the ER for evaluation. She reports a long history of UTIs and her daughter thought that may have been going on because she has acted similarly during previous episodes. She reports dysuria, frequency, diarrhea, decreased appetite as well. Source: patient, family, RN/MD Exam Limitations: clinical condition Date Seen 04/03/17 Time Seen by Provider: 14:00 Attending Physician Suha Rivas MD PCP Andres Bui MD Referring Physician Date of Admission Apr 03, 2017 at 14:15 Home Medications & Allergies Home Medications Reviewed patient Home Medication Reconciliation Form Allergies Allergies Coded Allergies Penicillins (Verified Allergy, Unknown, 02/02/15) influenza virus vaccine, specific (Verified Allergy, Unknown, 02/02/15) Past Ofgqvce-Mhzpid-Decokf Hx Patient Social History Employed/Student: retired Alcohol Use: Denies Use Recreational Drug Use: No Smoking Status: Never a Smoker 2nd Hand Smoke Exposure: No Recent Foreign Travel: No Contact w/other who traveled: No Recent Hopitalizations: No Recent Infectious Disease Expo: No Immunizations Up To Date Tetanus Booster (TDap): Unknown Date of Pneumonia Vaccine: Aug 28, 2012 Surgeries Yes (SEVERAL) Appendectomy, Eye Surgery, Hysterectomy, Joint Replacement Respiratory Yes Cardiovascular Yes Hypertension Neurological No 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 System Hx 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 Disorders: No Sexually Transmitted Disease: No HIV/AIDS: No Female 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 Disorders: Denies Genitourinary Yes UTI-Chronic Gastrointestinal Yes Gastroesophageal Reflux, Polyps, Hiatal Hernia Musculoskeletal No Endocrine History of Endocrine Disorders: Yes (THYROID DISEASE) Endocrine Disorders: Diabetes, Insulin dep HEENT HEENT Disorders: Cataract Loss of Vision: Denies Hearing Impairment: Denies Cancer No Psychosocial History of Psychiatric Problem: Yes Behavioral Health Disorders: Anxiety, Depression Integumentary History of Skin or Integumenta: Yes Blood Transfusions History of Blood Disorders: Yes (ANEMIA) Adverse Reaction to a Blood Tr: No Family Medical History Family Hx: Arthritis Cardiovascular disease Diabetes mellitus Hypertension Review of Systems Constitutional: chills, fever, weakness EENTM: No blurred vision, No double vision, No throat pain Respiratory: No cough, No dyspnea on exertion, No short of breath Cardiovascular: No chest pain, No edema, No palpitations Gastrointestinal: No abdominal pain, No constipation, diarrhea, loss of appetite, nausea, No vomiting Genitourinary: decreased output, dysuria, frequency Musculoskeletal: No joint pain, No muscle pain Psychiatric/Neurological: No Symptoms Reported Physical Exam Physical Exam Vital Signs Vital Sign - Last 12Hours 04/03/17 11:00 Temp 101.8 Pulse 91 Resp 16 B/P (MAP) 140/56 Pulse Ox 92 O2 Delivery Room Air Capillary Refill : Less Than 3 Seconds General Appearance: No Apparent Distress, WD/WN HEENT: PERRL/EOMI, No Photophobia, No Scleral Icterus (L), No Scleral Icterus ( R) Neck: Non Tender, Supple Respiratory: Lungs Clear, Normal Breath Sounds, No Accessory Muscle Use, No Respiratory Distress Cardiovascular: Regular Rate, Rhythm, No Edema, No JVD, No Murmur Gastrointestinal: Normal Bowel Sounds, Non Tender, Soft Neurologic/Psychiatric: Alert, Oriented x3, No Aphasia, No Facial Droop Skin: Normal Color, Warm/Dry Results Results/Procedures Lab Laboratory Tests 04/03/17 11:15 Assessment/Plan Admission Diagnosis Severe Sepsis due to UTI Diagnosis/Problems Diagnosis/Problems (1) Severe sepsis Status: Acute Assessment & Plan: UA consistent with UTI and elevated creatinine = end organ involvement Meets severe sepsis criteria, was unable to receive 30cc/kg bolus within timeframe due to difficulty obtain access (multiple attempts and infiltrations) Started on Levaquin in ED, abx #1 - I reviewed all available urine cultures for the last three years and she has grown klebsiella, e coli, Citrobacter, and Aerococcus all of which has shown sensitivity to ceftriaxone but reports severe allergy to PCN ("blows her up"), will switch to cipro Will send for urine culture, blood cultures (2) Acute renal failure Status: Acute Assessment & Plan: Likely due to sepsis/UTI 2.5L bolus ordered in ED Will continue fluids at 125ml overnight No acidosis, anuria, or hyperkalemia so will recheck in AM Qualifiers: Qualified Codes: N17.9 - Acute kidney failure, unspecified (3) Fall Status: Acute Assessment & Plan: CT head negative PT/OT to evaluate Will get orthostatics Fall precautions Qualifiers: Qualified Codes: W19.XXXA - Unspecified fall, initial encounter (4) Anemia Status: Chronic Assessment & Plan: Long standing history of anemia, follow with Dr. Chadwick regularly Near her baseline, will trend - anticipate drop due to fluids Qualifiers: Qualified Codes: N18.9 - Chronic kidney disease, unspecified; D63.1 - Anemia in chronic kidney disease (5) CAD (coronary artery disease) Status: Chronic Assessment & Plan: s/p [address] House Will continue ASA, atorvastatin Qualifiers: Qualified Codes: I25.10 - Atherosclerotic heart disease of [place] coronary artery without angina pectoris (6) Hypothyroidism Status: Chronic Assessment & Plan: Continue home meds Qualifiers: Qualified Codes: E03.9 - Hypothyroidism, unspecified (7) Prophylactic measure Assessment & Plan: Will defer pharmacological DVT ppx given 3 falls in the last two days- very high fall risk Will use SCDs SUHA RIVAS MD Apr 03, 2017 15:04
[2017-04-03] MEDS ORDERED: NON-FORMULARY MEDICATION 1 EA EA (Polyvinyl Alcohol/Povidone (Artificial Tears Drops) 1 DR OU PRN (16:45)
[2017-04-03] MEDS ORDERED: ACETAMINOPHEN 500 MG TAB (TYLENOL) PO PRN (16:45)
--- NOTE | 2017-04-03 16:47 | Diagnostic Imaging Report ---
INDICATION: PICC line. Left PICC catheter tip overlies the SVC in good alignment. IMPRESSION: PICC line projects at the SVC in good alignment. Dictated by: Dictated on workstation # [id number]
[2017-04-03 17:10] VITALS: BP 129/59
[2017-04-03] MEDS: NS IV 1000 ML 1,000 ML IV SCH (18:43)
[2017-04-03] MEDS ORDERED: ARTIFICIAL TEARS OINT (LACRI-LUBE) 3.5 GM TUBE OU PRN (19:00)
[2017-04-03] MEDS ORDERED: ARTIFICAL TEARS 0.4 ML UNIT DOSE (REFRESH PLUS) OU PRN (19:00)
[2017-04-03 19:18] VITALS: BP 138/63
[2017-04-03] MEDS ORDERED: LEVOFLOXACIN 250 MG/D5W 50 ML (PRE-MIX) IV NR (19:30)
[2017-04-03] MEDS ORDERED: ONDANSETRON 4 MG/2 ML (SDV) Z0FRAN IV PRN (19:45)
[2017-04-03] MEDS ORDERED: CATHETER FLUSH 10 ML SYR IV PRN (19:45)
[2017-04-03] MEDS ORDERED: IBUPROFEN 600 MG (MOTRIN) TAB PO PRN (19:45)
[2017-04-03] MEDS: meTOproloL SUCCINATE 50 MG (TOPROL XL) TAB PO SCH (20:14)
[2017-04-03] MEDS: GABAPENTIN 100 MG (NEURONTIN) CAP PO SCH (20:14)
[2017-04-03] MEDS: ATORVASTATIN 40 MG (LIPITOR) TABLET PO SCH (20:14)
[2017-04-03 20:15] VITALS: BP 140/56
[2017-04-03] MEDS: traZODone 100 MG (DESYREL) TAB PO SCH (20:21)
[2017-04-03] MEDS ORDERED: RT-ALBUTEROL/IPRATROPIUM 3 ML (DUONEB) VIAL INH PRN (20:45)
[2017-04-03] MEDS ORDERED: TIOTROPIUM BROMIDE (SPIRIVA) 5'S INHALER IH SCH (21:00)
[2017-04-03] MEDS ORDERED: NON-FORMULARY MEDICATION 1 EA EA (Fluticasone/Salmeterol (Advair 250-50 Diskus) 1 PUFF) IH SCH (21:00)
[2017-04-03] MEDS ORDERED: inSUlin DETERMIR 1000 UNITS/10 ML VIAL (LEVEMIR) SQ SCH (21:00)
[2017-04-03] MEDS ORDERED: NON-FORMULARY MEDICATION 1 EA EA (Cyclosporine (Restasis) 1 DROP) OU SCH (21:00)
[2017-04-03] MEDS: RT-ADVAIR HFA 115/21 MCG PER PUFF IH SCH (21:17)
[2017-04-03] MEDS: inSUlin DETERMIR 1 UNIT/0.01 ML (LEVEMIR) CHARGE PER UNIT SQ SCH (22:18)
[2017-04-03 23:40] VITALS: BP 135/62
[2017-04-04] MEDS: NS IV 1000 ML 1,000 ML IV SCH (00:31)
[2017-04-04 01:15] VITALS: BP 216/77
[2017-04-04] MEDS ORDERED: FUROSEMIDE 40 MG/4 ML INJ (LASIX) IVP ONE (01:30)
[2017-04-04 04:00] VITALS: BP 131/60
[2017-04-04] MEDS: PANTOPRAZOLE 40 MG (PROTONIX) TAB PO SCH (05:34)
[2017-04-04] MEDS: LACTOBACILLUS Acidoph/Bulgar (LACTINEX/FLORANEX) TAB PO SCH ×3 (05:34→17:45)
[2017-04-04 05:49] LABS: BASOPHILS % (AUTO) 0 % (0-10); EOSINOPHILS % (AUTO) 0 % (0-10); LYMPHOCYTES # (AUTO) 1.3 X 10^3 (1.0-4.0); LYMPHOCYTES % (AUTO) 10 % (12-44); MEAN CORPUSCULAR HEMOGLOBIN 28 PG (25-34); MEAN CORPUSCULAR HGB CONC 32 G/DL (32-36); MEAN CORPUSCULAR VOLUME 88 FL (80-99); MEAN PLATELET VOLUME 8.7 FL (7.4-10.4); MONOCYTES % (AUTO) 7 % (0-12); NEUTROPHILS # (AUTO) 11.4 X 10^3 (1.8-7.8); NEUTROPHILS % (AUTO) 83 % (42-75); PLATELET COUNT 156 10^3/uL (130-400); RED CELL DISTRIBUTION WIDTH 17.4 % (10.0-14.5); WHITE BLOOD COUNT 13.7 10^3/uL (4.3-11.0)
[2017-04-04] MEDS ORDERED: CIPROFLOXACIN IV 400MG/200ML 200 ML IV SCH (06:00)
[2017-04-04 06:07] LABS: ALBUMIN 3.2 GM/DL (3.2-4.5); BILIRUBIN,TOTAL 0.4 MG/DL (0.1-1.0); CALCIUM 9.2 MG/DL (8.5-10.1); CREATININE SERUM 2.09 MG/DL (0.60-1.30); POTASSIUM 4.4 MMOL/L (3.6-5.0); TOTAL PROTEIN 5.9 GM/DL (6.4-8.2)
[2017-04-04] MEDS ORDERED: LEVOTHYROXINE 150 MCG (LEVOTHROID) TAB PO SCH (06:30)
[2017-04-04] MEDS: UMECLIDINIUM BROMIDE (INCRUSE ELLIPTA) 7'S IH SCH (06:37)
[2017-04-04] MEDS: RT-ADVAIR HFA 115/21 MCG PER PUFF IH SCH ×2 (06:37→19:01)
[2017-04-04] MEDS: RT-ALBUTEROL/IPRATROPIUM 3 ML (DUONEB) VIAL INH SCH ×4 (06:37→19:01)
[2017-04-04 08:18] VITALS: BP 131/60
[2017-04-04] MEDS ORDERED: NON-FORMULARY MEDICATION 1 EA EA (Omeprazole 40 MG) PO SCH (09:00)
[2017-04-04] MEDS ORDERED: NON-FORMULARY MEDICATION 1 EA EA (Folic Acid 0.8 MG) PO SCH (09:00)
[2017-04-04] MEDS ORDERED: SOLIFENACIN 5 MG TAB (VESICARE) NON-FORMULARY PO SCH (09:00)
[2017-04-04] MEDS ORDERED: NON-FORMULARY MEDICATION 1 EA EA (Olmesartan Medoxomil (Benicar) 40 MG) PO SCH (09:00)
[2017-04-04] MEDS ORDERED: ASPIRIN 325 MG (5 GR) TABLET PO SCH (09:00)
[2017-04-04] MEDS: FOLIC ACID 1 MG TAB PO SCH (09:46)
[2017-04-04] MEDS: FUROSEMIDE 40 MG (LASIX) TAB PO SCH (09:46)
[2017-04-04] MEDS: GABAPENTIN 100 MG (NEURONTIN) CAP PO SCH ×3 (09:46→21:47)
[2017-04-04] MEDS: ALPRAZolam 0.25 MG (XANAX) TAB PO SCH (09:46)
[2017-04-04] MEDS: inSUlin ASPART (NovoLOG) 1 UNIT/0.01 ML (CHARGE PER UNIT) SQ SCH ×2 (09:47→12:02)
[2017-04-04] MEDS: inSUlin DETERMIR 1 UNIT/0.01 ML (LEVEMIR) CHARGE PER UNIT SQ SCH ×2 (09:47→21:48)
--- NOTE | 2017-04-04 09:53 | Physical Therapy Evaluation ---
PT Evaluation-General Medical Diagnosis Admission Date Apr 03, 2017 at 14:15 Medical Diagnosis: severe sepsis due to UTI Onset Date: Apr 03, 2017 Therapy Diagnosis Therapy Diagnosis: weakness Height/Weight Height (Feet): 5 Height (Inches): 6.00 Weight (Pounds): 188 Weight (Ounces): 0.0 Precautions Precautions/Isolations: Fall Prevention, Standard Precautions Referral Physician: Hilda Rivas Reason for Referral: Evaluation/Treatment Medical History Pertinent Medical History: CAD, COPD, DM, GERD, HTN, Hypothroidism, Neuropathy , Renal Insufficiency Additional Medical History UTI's, polyps, hiatal hernia, thyroid disease, cataracts, anxiety, depression. Surg: appendectomy, eye, hysterectomy, joint replacement Current History Pt fell 2 days ago and hit head. Pt went to ER for confusion and fever and admitted 04/03. Reviewed History: Yes Social History Home: Single Level Current Living Status: Children Entry Into Home: Stairs With Railing PT Steps Into Home: 3 PT Steps Inside Home: 0 Pt lives with family in single level home prior to admission and plans to return there. Prior/Core FIM Prior Level of Function Functional [place] Measure 0=Not Assessed/NA 4=Minimal Assistance 1=Total Assistance 5=Supervision or Setup 2=Maximal Assistance 6=Modified [place] 3=Moderate Assistance 7=Complete [place] Bed Mobility: 7 Transfers (B,C,W/C) (FIM): 7 Gait: 7 Locomotion: [address] but is independent with no assistive devices prior to admission. PT Evaluation-Current Subjective Pt was sitting in bed prior to tx and agreeable to PT. Pt reports no pain. Pt was sitting in chair with nurse call, phone, all needs in reach post tx, family in room. Pain Numeric Pain Scale: 0-No Pain Location: No Pain Reported Pt/Family Goals To return home with independence with functional mobility. Objective Patient Orientation: Person, Place, Situation Attachments: Oxygen, Alejandra Catheter 3L of O2 nasal canula ROM/Strength ROM Lower Extremities WFL Strenght Lower Extremities 4+/5 throughout LE bilaterally (df, hip flexion, knee flex/ext). No difference was noted from left to right side. Integumentary/Posture Integumentary Refer to nursing note. Bladder Incontinence: Alejandra Cath Neuromuscular (Tone, Coordination, Reflexes) Eye tracking is normal, Peripheral vision is decreased on left, facial sensation normal. Sensory Hearing: Functional Sensation Right Upper Extremit: Intact Sensation Left Upper Extremity: Intact Sensation Right Lower Extremit: Impaired Sensation Left Lower Extremity: Impaired Sensation Lower Extremities Pt has no light touch sensation on entire left or right foot. Normal light touch sensation over hip and knee bilaterally. Transfers Functional [place] Measure 0=Not Assessed/NA 4=Minimal Assistance 1=Total Assistance 5=Supervision or Setup 2=Maximal Assistance 6=Modified [place] 3=Moderate Assistance 7=Complete [place] Transfers (B, C, W/C) (FIM): 5 Scootin Supine to/from Sit: 5 Sit to/from Stand: 4 Pt completes bed mobility with supervision for safety. Pt completes sit to stand transfer with CGA for safety. Gait Mode of Locomotion: Walk Anticipated Mode of Locomotion: Walk Gait (FIM): 1 Distance (FIM): 1=up to 49 ft Distance: 25' Gait Level of Assist: 4 Gait Persons Needed: 1 Gait Assistive Device: FWW Comments/Gait Description Pt ambulates slowly with FWW and CGA for safety. Cues for safety and direction. Balance Sitting Static: Good Sitting Dynamic: Fair Standing Static: Fair Standing Dynamic: Fair Treatment Pt completes ankle pumps and LAQ bilaterally x15 and glute sets x10 to increase functional strengthening. Assessment/Needs Pt has decreased mobility and activity tolerance. Pt vitals were assessed prior to tx (BP 127/59, HR 66). Rehab Potential: Good PT Roving Hand Goals Roving Hand Goals PT Roving Hand Goals Time Frame: Apr 11, 2017 Transfers (B,C,W/C) (FIM): 5 Gait (FIM): 2 Gait distance (FIM): 3=150 ft Distance: 50' Gait Level of Assist: 5 Gait Assistive Device: FWW PT Plan Problem List Problem List: Activity Tolerance, Functional Strength, Safety, Balance, Gait, Transfer, Bed Mobility Treatment/Plan Treatment Plan: Continue Plan of Care Treatment Plan: Bed Mobility, Education, Functional Activity Emmy, Functional Strength, Gait, Safety, Therapeutic Exercise, Transfers Treatment Duration: Apr 11, 2017 Frequency: 6 times per week (Friday through Friday) Estimated Hrs Per Day: .25 hour per day (15-30 min) Patient and/or Family Agrees t: Yes Safety Risks/Education Patient Education: Gait Training, Transfer Techniques, Reviewed Precautions, Correct Positioning, Safety Issues Teaching Recipient: Patient Teaching Methods: Demonstration, Discussion Response to Teaching: Verbalize Understanding, Reinforcement Needed Discharge Recommendations Therapy D/C Recommendations: Home w/ Family Support Time/GCodes Time In: 915 Time Out: 942 Total Billed Treatment Time: 27 Total Billed Treatment 1 visit 8 EX 19 EVL G Codes Necessary: Yes PT/OT Therapy GCodes Therapy Functional Limitation: Physical Therapy Test(s)/Tool used to determine: Level of Assistance Scale Functional Limitation-Current Charge Code: MOBCUR Modifier: CJ Functional Limitation-Goal Charge Code: MOBGOSATISH Modifier: YELENA CURRAN PT Apr 04, 2017 09:53
--- NOTE | 2017-04-04 10:36 | Occupational Therapy Eval ---
OT Evaluation-General/PLF Medical Diagnosis Admission Date Apr 03, 2017 at 14:15 Medical Diagnosis: sepsis/UTI Onset Date: Apr 03, 2017 Therapy Diagnosis Therapy Diagnosis: decreased self care skills Height/Weight Height (Feet): 5 Height (Inches): 6.00 Weight (Pounds): 188 Weight (Ounces): 0.0 Precautions Precautions/Isolations: Fall Prevention, Standard Precautions Safety Interventions: Bed Exit Alarm Referral Physician: Hilda Rivas Medical History Pertinent Medical History: CAD, COPD, DM, GERD, HTN, Hypothroidism, Neuropathy , Renal Insufficiency Additional Medical History recurrent UTI, hiatal hernia, anxiety, depression, anemia Reviewed History: Yes Social History Home: Single Level Current Living Status: Children Entry Into Home: Stairs With Railing Steps Into Home: 3 Steps Inside Home: 0 ADL-Prior Level of Function ADL PLOF Comments Pt reports being independent with basic self care. Daughter states she sometimes supervises showers for safety. Does not use any AD for mobility. DME/Equipment: Bath Chair, Shower, Tall Toilet OT Current Status Subjective Pt sitting in chair, agrees to therapy. Pt has no c/o pain during session. Mental Status/Objective Patient Orientation: Person, Place Attachments: Oxygen Current Glasses/Contacts: Yes Dentures/Partials: Yes Hand Dominance: Right Upper Extremity ROM Grossly WFL Upper Extremity Coordination Intact Upper Extremity Sensation Intact per pt report. Upper Extremity Strength Grossly 4/5 ADL-Treatment ADL-Current Pt participated in UE assessment while seated in chair. Pt has eaten breakfast this morning after set up per daughter. Pt demonstrates ability to doff/don socks with SBA while seated in chair. Pt states she has impaired sensation in feet. Pt demonstrates ability to perform sit to stand with supervision and cues for safety. Daughter states this is much improved as pt has been having difficulty the last few days. Family states pt will take a shower later. Pt sitting in chair with needs met and family present after session. Functional [place] Measure 0=Not Assessed/NA 4=Minimal Assistance 1=Total Assistance 5=Supervision or Setup 2=Maximal Assistance 6=Modified [place] 3=Moderate Assistance 7=Complete IndependenceIRFPAI Quality Coding Scale 6 Independent with activity with or without an assistive device 5 Patient requires set up or clean up by helper. Patient completes activity by themselves 4 Supervision or touching assist (CGA). [place] provide cues , steadying assist 3 The helper provides less than half the effort to complete the activity 2 The helper provides more than half the effort to complete the activity 1 Dependent. The helper does all the effort to complete an activity 7 Patient refused to complete or attempt activity 9 The patient did not perform the activity before the current illness or injury 88 Not attempted due to Medical conditions or safety concerns Eating (FIM): 5 (by report) Lower Body Dressing (FIM): 5 (socks only) Transfers (B, C, W/C) (FIM): 4 Education OT Patient Education: Rehab process Teaching Recipient: Patient Teaching Methods: Discussion Response to Teaching: Verbalize Understanding OT Short Term Goals Short Term Goals 1=Demonstrate adherence to instructed precautions during ADL tasks. 2=Patient will verbalize/demonstrate understanding of assistive devices/ modifications for ADL. 3=Patient will improve strength/tolerance for activity to enable patient to perform ADL's. OT Material Assembler Goals Residential Goals Time Frame: Apr 18, 2017 Eating (FIM): 6 Grooming(FIM): 6 Bathing(FIM): 5 Upper Body Dressing(FIM): 5 Lower Body Dressing(FIM): 5 Toileting(FIM): 6 Toilet/Commode Transfer(FIM): 6 Additional Goals: 1-Demonstrate ADL Tasks, 2-Verbalize Understanding, 3- ImproveStrength/Emmy 1=Demonstrate adherence to instructed precautions during ADL tasks. 2=Patient will verbalize/demonstrate understanding of assistive devices/ modifications for ADL. 3=Patient will improve strength/tolerance for activity to enable patient to perform ADL's. OT Education/Plan Problem List/Assessment Assessment: Decreased Activ Tolerance, Decreased UE Strength, Dependent Transfers, Impaired Self-Care Skills Pt to benefit from skilled OT intervention for ADL training, transfers, strengthening, and home safety education to maximize level of function and allow safe return home with family. Discharge Recommendations Plan/Recommendations: Continue POC Treatment Plan/Plan of Care Treatment,Training & Education: Yes Patient would benefit from OT for education, treatment and training to promote independence in ADL's, mobility, safety and/or upper extremity function for ADL' s. Plan of Care: ADL Retraining, Functional Mobility, UE Funct Exercise/Act Treatment Duration: Apr 18, 2017 Frequency: 5 times per week Estimated Hrs Per Day: .5 hour per day Agreement: Yes Rehab Potential: Good Time/GCodes Start Time: 09:55 Stop Time: 10:10 Total Time Billed (hr/min): 15 Billed Treatment Time 1 visit, EVL(15minutes) PT/OT Therapy GCodes Therapy Functional Limitation: Occupational Therapy Test(s)/Tool used to determine: FIM Functional Limitation-Current Charge Code: SELFCUR Modifier: CK Functional Limitation-Goal Charge Code: SELFGOAL Modifier: JEMMA BADILLO OT Apr 04, 2017 10:36
[2017-04-04] MEDS ORDERED: LEVO125T6 PO (10:43)
[2017-04-04] MEDS ORDERED: CITA20TA7 PO (10:43)
[2017-04-04] MEDS ORDERED: ALBU18HF2 INH (10:43)
[2017-04-04] MEDS ORDERED: LORA10TA7 PO (10:43)
[2017-04-04] MEDS ORDERED: ASPI-983 PO (10:43)
[2017-04-04] MEDS ORDERED: INSU100V16 SQ ×3 (10:43)
[2017-04-04] MEDS ORDERED: FISH1CAP15 PO (10:43)
[2017-04-04] MEDS ORDERED: FLUT16SP22 NS (10:43)
[2017-04-04] MEDS ORDERED: PATIENT MAY USE OWN MEDS, ALL MC SCH (11:45)
[2017-04-04 12:00] VITALS: BP 120/59
[2017-04-04] MEDS ORDERED: inSUlin ASPART (NovoLOG) 1 UNIT/0.01 ML (CHARGE PER UNIT) SQ SCH ×2 (12:00→17:00)
[2017-04-04] MEDS ORDERED: RT-ALBUTEROL SULF 2.5 MG/3 ML PRE-MIX VIAL IH PRN (12:30)
--- NOTE | 2017-04-04 12:42 | Progress Note-Hospitalist ---
Subjective HPI/CC On Admission Date Seen by Provider: Apr 04, 2017 Time Seen by Provider: 11:00 CC: Fever/Confusion HPI: Pt is an 82yo CF with PMH of recurrent UTIs, DM, CAD s/p stent, hypothyroidism who presented to the ER with CC of confusion and fevers. Per patient she fell getting up form the bathroom 2 days ago and hit her head. Per her daughter who lives with her over the last two days she has not been acting right and has fallen again since then. Last night she seemed more confused and weak when she went to bed. She awoke this morning with profound weakness ( unable to sit up from a chair), confused, and was shaking. Her daughter called her PCP who recommended sending her to the ER for evaluation. She reports a long history of UTIs and her daughter thought that may have been going on because she has acted similarly during previous episodes. She reports dysuria, frequency, diarrhea, decreased appetite as well. Subjective/Events-last exam Reports feeling better from yesterday. She is eating and drinking well. Confusion has improved. Is ok with catheter removal. Objective Exam Vital Signs Vital Sign - Last 12Hours 04/03/17 04/03/17 04/03/17 11:00 17:05 20:15 Temp 101.8 Pulse 91 Resp 16 B/P (MAP) 140/56 Pulse Ox 92 O2 Delivery Room Air O2 Flow Rate 2.00 FiO2 28 Capillary Refill : Less Than 3 Seconds General Appearance: No Apparent Distress, WD/WN Respiratory: Lungs Clear, Normal Breath Sounds, No Accessory Muscle Use Cardiovascular: Regular Rate, Rhythm, No Edema, No JVD, No Murmur Gastrointestinal: Non Tender, Soft Extremity: Non Tender, No Calf Tenderness Neurologic/Psychiatric: Alert, Oriented x3 Results/Procedures Lab Laboratory Tests 04/04/17 05:44 Assessment/Plan Assessment and Plan Assess & Plan/Chief Complaint UTI due to klebsiella Diagnosis/Problems Diagnosis/Problems (1) Klebsiella cystitis Status: Acute Assessment & Plan: Klebsiella gorwing in urine culture, awaiting sensitivities Await blood cultures Severe sepsis criteria resolved Continue on levaquin per pharmacy formulary, renally dosed (2) Acute renal failure Status: Acute Assessment & Plan: Improving, creatinine due to 2 Off IVF as developed symptoms No acidosis, anuria, or hyperkalemia so will recheck in AM Qualifiers: Qualified Codes: N17.9 - Acute kidney failure, unspecified (3) Fall Status: Acute Assessment & Plan: CT head negative PT/OT to evaluate Will get orthostatics Fall precautions Qualifiers: Qualified Codes: W19.XXXA - Unspecified fall, initial encounter (4) Anemia Status: Chronic Assessment & Plan: Long standing history of anemia, follows with Dr. Chadwick regularly Near her baseline, will trend Qualifiers: Qualified Codes: N18.9 - Chronic kidney disease, unspecified; D63.1 - Anemia in chronic kidney disease (5) Severe sepsis Status: Resolved (6) CAD (coronary artery disease) Status: Chronic Assessment & Plan: s/p [address] House Will continue ASA, atorvastatin Qualifiers: Qualified Codes: I25.10 - Atherosclerotic heart disease of [place] coronary artery without angina pectoris (7) Hypothyroidism Status: Chronic Assessment & Plan: Continue home meds Qualifiers: Qualified Codes: E03.9 - Hypothyroidism, unspecified (8) Prophylactic measure Assessment & Plan: Will defer pharmacological DVT ppx given 3 falls in the last two days- very high fall risk Will use SCDs SUHA TAYLOR MD Apr 04, 2017 12:42
[2017-04-04] MEDS: NYSTATIN CREAM (MYCOSTATIN) 30 GM TUBE TP SCH ×2 (14:02→21:48)
[2017-04-04 15:55] VITALS: BP 111/56
[2017-04-04] MEDS ORDERED: TROSPIUM 20 MG (SANCTURA) TAB PO SCH (16:00)
[2017-04-04 20:00] VITALS: BP 137/66
[2017-04-04] MEDS ORDERED: NIACIN ER (NIASPAN) 500 MG TAB PO SCH (21:00)
[2017-04-04] MEDS: traZODone 100 MG (DESYREL) TAB PO SCH (21:47)
[2017-04-04] MEDS: ATORVASTATIN 40 MG (LIPITOR) TABLET PO SCH (21:47)
[2017-04-04] MEDS: meTOproloL SUCCINATE 50 MG (TOPROL XL) TAB PO SCH (21:47)
[2017-04-05] VITALS: BP 149/71
[2017-04-05 04:00] VITALS: BP 141/64
[2017-04-05 05:43] LABS: BASOPHILS % (AUTO) 0 % (0-10); EOSINOPHILS # (AUTO) 0.1 10^3/uL (0.0-0.3); EOSINOPHILS % (AUTO) 1 % (0-10); LYMPHOCYTES # (AUTO) 1.6 X 10^3 (1.0-4.0); LYMPHOCYTES % (AUTO) 16 % (12-44); MEAN CORPUSCULAR HEMOGLOBIN 28 PG (25-34); MEAN CORPUSCULAR HGB CONC 32 G/DL (32-36); MEAN CORPUSCULAR VOLUME 88 FL (80-99); MONOCYTES # (AUTO) 1.2 X 10^3 (0.0-1.0); MONOCYTES % (AUTO) 12 % (0-12); NEUTROPHILS # (AUTO) 7.5 X 10^3 (1.8-7.8); NEUTROPHILS % (AUTO) 72 % (42-75); PLATELET COUNT 160 10^3/uL (130-400); RED BLOOD COUNT 2.89 10^6/uL (4.35-5.85); RED CELL DISTRIBUTION WIDTH 17.7 % (10.0-14.5); WHITE BLOOD COUNT 10.5 10^3/uL (4.3-11.0)
[2017-04-05 05:58] LABS: CALCIUM 9.5 MG/DL (8.5-10.1); CREATININE SERUM 2.03 MG/DL (0.60-1.30); POTASSIUM 4.1 MMOL/L (3.6-5.0)
[2017-04-05] MEDS: PANTOPRAZOLE 40 MG (PROTONIX) TAB PO SCH (06:28)
[2017-04-05] MEDS: LACTOBACILLUS Acidoph/Bulgar (LACTINEX/FLORANEX) TAB PO SCH (06:28)
[2017-04-05] MEDS ORDERED: LEVOTHYROXINE 125 MCG (LEVOTHROID) TABLET PO SCH (06:30)
[2017-04-05] MEDS ORDERED: MULTIVIT W/MINERALS TAB (THERAGRAN M) PO SCH (07:00)
[2017-04-05] MEDS ORDERED: OMEGA 3 (FISH OIL) 1000 MG CAP PO SCH (07:00)
[2017-04-05] MEDS ORDERED: inSUlin ASPART (NovoLOG) 1 UNIT/0.01 ML (CHARGE PER UNIT) SQ SCH ×2 (07:00→17:00)
[2017-04-05] MEDS: RT-ALBUTEROL/IPRATROPIUM 3 ML (DUONEB) VIAL INH SCH ×2 (07:31→11:01)
[2017-04-05 08:02] VITALS: BP 133/61
[2017-04-05] MEDS ORDERED: NYST15CR TP (08:55)
[2017-04-05] MEDS ORDERED: ACID1TAB PO (08:55)
[2017-04-05] MEDS ORDERED: CIPR-242 PO (08:57)
[2017-04-05] MEDS ORDERED: LORATADINE (CLARITIN) 10 MG TAB PO SCH (09:00)
[2017-04-05] MEDS ORDERED: ASPIRIN E.C. 81 MG (ECOTRIN) TAB PO SCH (09:00)
[2017-04-05] MEDS ORDERED: MECLIZINE 25 MG (ANTIVERT) TAB PO SCH (09:00)
[2017-04-05] MEDS ORDERED: FLUTICASONE NASAL SPRAY (FLONASE) 16 GM BTL NS SCH (09:00)
--- NOTE | 2017-04-05 09:05 | Discharge Summary-Hospitalist ---
Diagnosis/Chief Complaint Date of Admission Apr 04, 2017 at 10:00 Date of Discharge Admission Diagnosis Severe Sepsis due to UTI Discharge Diagnosis UTI due to klebsiella (1) Klebsiella cystitis Status: Acute Assessment & Plan: Klebsiella gorwing in urine culture, sensitive to fluoroquinolones- will transition to oral Cipro Blood cultures negative Severe sepsis criteria resolved (2) Acute renal failure Status: Resolved Assessment & Plan: Resolved, back to baseline (3) Fall Status: Acute Assessment & Plan: CT head negative PT/OT to evaluate Needs some assistance at home but lives with daughter and son in law (4) Anemia Status: Chronic Assessment & Plan: Long standing history of anemia, follows with Dr. Chadwick regularly Near her baseline, will trend (5) Severe sepsis Status: Resolved (6) CAD (coronary artery disease) Status: Chronic Assessment & Plan: s/p [address] House Will continue ASA, atorvastatin (7) Hypothyroidism Status: Chronic Assessment & Plan: Continue home meds (8) Prophylactic measure Assessment & Plan: Will defer pharmacological DVT ppx given 3 falls in the last two days- very high fall risk Will use SCDs Discharge Summary Discharge Physical Examination Allergies: Coded Allergies: Penicillins (Verified Allergy, Unknown, 02/02/15) influenza virus vaccine, specific (Verified Allergy, Unknown, 02/02/15) Vitals & I&Os Vital Signs Date Time Temp Pulse Resp B/P (MAP) Pulse Ox O2 Delivery O2 Flow Rate FiO2 04/05/17 08:02 98.5 84 20 133/61 95 Room Air 04/05/17 04:00 1.00 04/03/17 20:15 28 Hospital Course Ms. Agarwal presented to the ER with CC of falls and confusion and was found to have a UTI with acute kidney injury meeting severe sepsis criteria. She was admitted and given IVF resuscitation and IV abx. She responded very well to this and was transitioned to oral antibiotics at discharge. Her renal function returned to her baseline her (Creatinine of ~2.0). Labs (last 24 hrs) Laboratory Tests 04/04/17 11:34: Glucometer 167H 04/04/17 16:02: Glucometer 188H 04/04/17 20:53: Glucometer 112H 04/05/17 05:25: White Blood Count 10.5, Red Blood Count 2.89L, Hemoglobin 8.1L, Hematocrit 25L, Mean Corpuscular Volume 88, Mean Corpuscular Hemoglobin 28, Mean Corpuscular Hemoglobin Concent 32, Red Cell Distribution Width 17.7H, Platelet Count 160, Mean Platelet Volume 9.0, Neutrophils (%) (Auto) 72, Lymphocytes (%) (Auto) 16, Monocytes (%) (Auto) 12, Eosinophils (%) (Auto) 1, Basophils (%) (Auto) 0, Neutrophils # (Auto) 7.5, Lymphocytes # (Auto) 1.6, Monocytes # (Auto) 1.2H, Eosinophils # (Auto) 0.1, Basophils # (Auto) 0.0, Sodium Level 137, Potassium Level 4.1, Chloride Level 108H, Carbon Dioxide Level 18L, Anion Gap 11, Blood Urea Nitrogen 30H, Creatinine 2.03H, Estimat Glomerular Filtration Rate 23, BUN/ Creatinine Ratio 15, Glucose Level 67L, Calcium Level 9.5 Microbiology 04/03/17 Blood Culture - Preliminary, Resulted No growth 04/03/17 Urine Culture - Final, Complete Klebsiella Pneumoniae Pending Labs Laboratory Tests 04/05/17 05:25: White Blood Count 10.5, Red Blood Count 2.89, Hemoglobin 8.1, Hematocrit 25, Mean Corpuscular Volume 88, Mean Corpuscular Hemoglobin 28, Mean Corpuscular Hemoglobin Concent 32, Red Cell Distribution Width 17.7, Platelet Count 160, Mean Platelet Volume 9.0, Neutrophils (%) (Auto) 72, Lymphocytes (%) (Auto) 16, Monocytes (%) (Auto) 12, Eosinophils (%) (Auto) 1, Basophils (%) (Auto) 0, Neutrophils # (Auto) 7.5, Lymphocytes # (Auto) 1.6, Monocytes # (Auto) 1.2, Eosinophils # (Auto) 0.1, Basophils # (Auto) 0.0, Sodium Level 137, Potassium Level 4.1, Chloride Level 108, Carbon Dioxide Level 18, Anion Gap 11, Blood Urea Nitrogen 30, Creatinine 2.03, Estimat Glomerular Filtration Rate 23, BUN/ Creatinine Ratio 15, Glucose Level 67, Calcium Level 9.5 Discharge Home Medications: Active Scripts Active Cipro Xr 500 mg Tablet (Ciprofloxacin/Ciprofloxa HCl) 500 Mg Tbmp.24hr 500 Mg PO DAILY 5 Days Reported Levothyroxine Sodium 125 Mcg Tablet 125 Mcg PO DAILY Loratadine 10 Mg Tablet 10 Mg PO DAILY Citalopram HBr (Citalopram Hydrobromide) 20 Mg Tablet 20 Mg PO HS Aspirin EC (Aspirin) 81 Mg Tablet.dr 81 Mg PO DAILY Fluticasone Propionate 16 Gm [place].susp 1 [place] NS DAILY Ventolin Hfa (Albuterol Sulfate) 18 Gm Hfa.aer.ad 2 Puff INH Q4H PRN Fish Oil 1,200 mg Fish Oil (Fish Oil/Dha/Epa) 1 Each Capsule 3,600 Mg PO DAILY TAKES 3 (1200MG) CAPSULES Novolog (Insulin Aspart) 100 Unit/1 Ml Susp 15 Unit SQ WITH SUPPER Novolog (Insulin Aspart) 100 Unit/1 Ml Susp 5 Unit SQ WITH LUNCH Novolog (Insulin Aspart) 100 Unit/1 Ml Susp 10 Unit SQ WITH BREAKFAST Artificial Tears Drops (Polyvinyl Alcohol/Povidone) 15 Ml Drops 1 Drop OU QID PRN Restasis (Cyclosporine) 1 Each Droperette 1 Drop OU BID Alprazolam 0.25 Mg Tablet 0.25 Mg PO DAILY Omeprazole 40 Mg Capsule.dr 40 Mg PO DAILY Benicar (Olmesartan Medoxomil) 40 Mg Tablet 40 Mg PO DAILY Furosemide 40 Mg Tablet 40 Mg PO DAILY Spiriva (Tiotropium [place]) 1 Inh Aerp 1 Cap IH HS Levemir (Insulin Determir) 1,000 Units/10 Ml Soln 60 Units SQ BID Meclizine HCl 25 Mg Tablet 25 Mg PO DAILY Metoprolol Succinate 50 Mg Tab.er.24h 50 Mg PO HS Atorvastatin Calcium 40 Mg Tablet 40 Mg PO HS Niacin ER (Niacin) 1,000 Mg Tab.er.24h 1,000 Mg PO HS Advair 250-50 Diskus (Fluticasone/Salmeterol) 1 Each Blst.w.dev 1 Puff IH BID Gabapentin 100 Mg Capsule 300 Mg PO HS TAKES 3 (100 MG) CAPSULES Trazodone HCl 100 Mg Tablet 100 Mg PO HS Folic Acid 0.8 Mg Tablet 0.8 Mg PO DAILY Multivitamins (Multivitamin) 1 Each Tablet 1 Tab PO DAILY Vesicare (Solifenacin) 5 Mg Tablet 5 Mg PO DAILY Instructions to patient/family Please see electronic discharge instructions given to patient. Clinical Quality Measures DVT/VTE Risk/Contraindication: Risk Factor Score Per Nursin RFS Level Per Nursing on Admit: 4+=Very High Copy Copies To 1: FELICITA CEDEÑO MD Problem Qualifiers (1) Acute renal failure: Acute renal failure type: unspecified Qualified Codes: N17.9 - Acute kidney failure, unspecified (2) Fall: Encounter type: initial encounter Qualified Codes: W19.XXXA - Unspecified fall, initial encounter (3) Anemia: Anemia type: due to chronic kidney disease Chronic kidney disease stage: unspecified stage Qualified Codes: N18.9 - Chronic kidney disease, unspecified ; D63.1 - Anemia in chronic kidney disease (4) CAD (coronary artery disease): Coronary Disease-Associated Artery/Lesion type: [place] artery [place] vs. transplanted heart: [place] heart Associated angina: without angina Qualified Codes: I25.10 - Atherosclerotic heart disease of [place] coronary artery without angina pectoris (5) Hypothyroidism: Hypothyroidism type: unspecified Qualified Codes: E03.9 - Hypothyroidism, unspecified SUHA TAYLOR MD Apr 05, 2017 09:05
[2017-04-05] MEDS: ALPRAZolam 0.25 MG (XANAX) TAB PO SCH (09:32)
[2017-04-05] MEDS: FOLIC ACID 1 MG TAB PO SCH (09:32)
[2017-04-05] MEDS: GABAPENTIN 100 MG (NEURONTIN) CAP PO SCH (09:32)
[2017-04-05] MEDS: FUROSEMIDE 40 MG (LASIX) TAB PO SCH (09:32)
[2017-04-05] MEDS: NYSTATIN CREAM (MYCOSTATIN) 30 GM TUBE TP SCH (09:33)
[2017-04-05] MEDS: inSUlin DETERMIR 1 UNIT/0.01 ML (LEVEMIR) CHARGE PER UNIT SQ SCH (09:33)
--- NOTE | 2017-04-05 09:40 | Physical Therapy Daily Note ---
PT Daily Note-Current Subjective No complaints. Mental Status Patient Orientation: Person, Place, Time, Situation Transfers Functional [place] Measure 0=Not Assessed/NA 4=Minimal Assistance 1=Total Assistance 5=Supervision or Setup 2=Maximal Assistance 6=Modified [place] 3=Moderate Assistance 7=Complete IndependenceIRFPAI Quality Coding Scale 6 Independent with activity with or without an assistive device 5 Patient requires set up or clean up by helper. Patient completes activity by themselves 4 Supervision or touching assist (CGA). [place] provide cues , steadying assist 3 The helper provides less than half the effort to complete the activity 2 The helper provides more than half the effort to complete the activity 1 Dependent. The helper does all the effort to complete an activity 7 Patient refused to complete or attempt activity 9 The patient did not perform the activity before the current illness or injury 88 Not attempted due to Medical conditions or safety concerns Transfers (B, C, W/C) (FIM): 6 Supine to/from Sit: 6 Sit to/from Stand: 6 Bed to/from Chair: 6 Weight Bearing Weight Bearing Restriction: Full Weight Bearing Gait Training Distance (FIM): 3=150 ft Distance: 350ft Gait Level of Assist: 6 Gait Persons Needed: 1 Gait Assistive Device: FWW Exercises Supine Ex: LE Protocol Supine Reps: 20 Assessment Current Status: Excellent Progress Pt has shown good progress with mobility relative to yesterday. She increased her ambulation distance from 25ft to 350ft, with no evidence of dyspnea. PT Retail Supervisor Goals Correction Goals PT Retail Supervisor Goals Time Frame: Apr 11, 2017 Transfers (B,C,W/C) (FIM): 5 Gait (FIM): 2 Gait distance (FIM): 3=150 ft Distance: 50' Gait Level of Assist: 5 Gait Assistive Device: FWW PT Plan Problem List Problem List: Activity Tolerance, Functional Strength, Safety, Gait Treatment/Plan Treatment Plan: Continue Plan of Care Treatment Plan: Bed Mobility, Education, Functional Activity Emmy, Functional Strength, Gait, Safety, Therapeutic Exercise, Transfers Treatment Duration: Apr 11, 2017 Frequency: 6 times per week (Friday through Friday) Estimated Hrs Per Day: .25 hour per day (15-30 min) Patient and/or Family Agrees t: Yes Time/GCodes Time In: 904 Time Out: 934 Total Billed Treatment Time: 30 Total Billed Treatment 1, gt 15, ex 15 PT/OT Therapy GCodes Therapy Functional Limitation: Physical Therapy Test(s)/Tool used to determine: Level of Assistance Scale Functional Limitation-Current Charge Code: LISA Modifier: FANI Functional Limitation-Goal Charge Code: EARNEST Modifier: MELISSA SCHMIDT PT Apr 05, 2017 09:40
--- NOTE | 2017-04-05 10:12 | Discharge Instructions ---
Discharge Instructions Discharge Medications New, Converted or Re-Newed RX: Transmitted to Pharmacy Patient Instructions Patient Instructions: Please take your medications as written. If your symptoms return or worsen please return to the ER. Activity & Diet Discharge Diet: No Restrictions Activity as Tolerated: Yes SUHA TAYLOR MD Apr 05, 2017 10:12
[2017-04-05] MEDS: UMECLIDINIUM BROMIDE (INCRUSE ELLIPTA) 7'S IH SCH (11:02)
[2017-04-05] MEDS: RT-ADVAIR HFA 115/21 MCG PER PUFF IH SCH (11:02)
[2017-04-05 12:00] VITALS: BP 117/54
[2017-04-05 12:20] VITALS: BP 117/54
[2017-04-05] MEDS ORDERED: LEVOFLOXACIN 500 MG/100 ML IV 100 ML IV SCH (17:00)
== END 2017-04-05 12:30 | disposition home or self-care (01) | DRG 872 ==
LOC: EDUNIT# 10:50 → ER 10:53 → 4TH 14:15 → UNDOADMOB 14:15 → 4TH 17:10 → INTOOBSV 04-04 10:00 → OBSVTOIN 04-04 10:00 → UNDODISIN 04-05 12:30
PROVIDERS: ADMIT Family Medicine; ATTEND Family Medicine
DX: A41.9 Sepsis, unspecified organism (principal); R65.20 Severe sepsis without septic shock; N30.90 Cystitis, unspecified without hematuria; B96.1 Klebsiella pneumoniae [K. pneumoniae] as the cause of diseases classified elsewhere; N17.9 Acute kidney failure, unspecified; I12.9 Hypertensive chronic kidney disease with stage 1 through stage 4 chronic kidney disease, or unspecified chronic kidney disease; N18.9 Chronic kidney disease, unspecified; D63.1 Anemia in chronic kidney disease; E11.9 Type 2 diabetes mellitus without complications; J44.9 Chronic obstructive pulmonary disease, unspecified; S00.83XA Contusion of other part of head, initial encounter; I25.10 Atherosclerotic heart disease of native coronary artery without angina pectoris; K21.9 Gastro-esophageal reflux disease without esophagitis; K44.9 Diaphragmatic hernia without obstruction or gangrene; E03.9 Hypothyroidism, unspecified; Z95.5 Presence of coronary angioplasty implant and graft; W19.XXXA Unspecified fall, initial encounter; Y92.009 Unspecified place in unspecified non-institutional (private) residence as the place of occurrence of the external cause
CPT/HCPCS: 36415; 36569; 51702; 70450; 71010; 76937; 80048; 80053; 81000; 82962; 83605; 85007; 85025; 85027; 85610; 85730; 87040; 87077; 87088; 87186; 94640; 94760; 96361; 96365; G0378

== ENCOUNTER 2017-04-17 12:53 | Outpatient (RCR) | payer MEDICARE, MEDICAID ==
[2017-02-13 11:38] LABS: BASOPHILS % (AUTO) 1 % (0-10); EOSINOPHILS # (AUTO) 0.3 10^3/uL (0.0-0.3); EOSINOPHILS % (AUTO) 3 % (0-10); LYMPHOCYTES # (AUTO) 2.2 X 10^3 (1.0-4.0); LYMPHOCYTES % (AUTO) 25 % (12-44); MEAN CORPUSCULAR HEMOGLOBIN 27 PG (25-34); MEAN CORPUSCULAR HGB CONC 31 G/DL (32-36); MEAN CORPUSCULAR VOLUME 89 FL (80-99); MEAN PLATELET VOLUME 7.9 FL (7.4-10.4); MONOCYTES # (AUTO) 0.6 X 10^3 (0.0-1.0); MONOCYTES % (AUTO) 7 % (0-12); NEUTROPHILS # (AUTO) 5.7 X 10^3 (1.8-7.8); NEUTROPHILS % (AUTO) 65 % (42-75); PLATELET COUNT 173 10^3/uL (130-400); RED CELL DISTRIBUTION WIDTH 14.6 % (10.0-14.5); WHITE BLOOD COUNT 8.8 10^3/uL (4.3-11.0)
[2017-02-20 13:11] LABS: BASOPHILS % (AUTO) 0 % (0-10); EOSINOPHILS # (AUTO) 0.3 10^3/uL (0.0-0.3); EOSINOPHILS % (AUTO) 4 % (0-10); LYMPHOCYTES % (AUTO) 33 % (12-44); MEAN CORPUSCULAR HEMOGLOBIN 28 PG (25-34); MEAN CORPUSCULAR HGB CONC 32 G/DL (32-36); MEAN CORPUSCULAR VOLUME 88 FL (80-99); MEAN PLATELET VOLUME 8.4 FL (7.4-10.4); MONOCYTES # (AUTO) 0.5 X 10^3 (0.0-1.0); MONOCYTES % (AUTO) 5 % (0-12); NEUTROPHILS # (AUTO) 5.2 X 10^3 (1.8-7.8); NEUTROPHILS % (AUTO) 58 % (42-75); PLATELET COUNT 175 10^3/uL (130-400); RED BLOOD COUNT 3.44 10^6/uL (4.35-5.85); RED CELL DISTRIBUTION WIDTH 14.9 % (10.0-14.5); WHITE BLOOD COUNT 9.1 10^3/uL (4.3-11.0)
[2017-02-20 13:53] LABS: ALBUMIN 4.5 GM/DL (3.2-4.5); BILIRUBIN,TOTAL 0.7 MG/DL (0.1-1.0); CALCIUM 10.2 MG/DL (8.5-10.1); CREATININE SERUM 1.88 MG/DL (0.60-1.30); POTASSIUM 4.2 MMOL/L (3.6-5.0); TOTAL PROTEIN 7.4 GM/DL (6.4-8.2)
[2017-03-06 10:47] LABS: BASOPHILS % (AUTO) 0 % (0-10); EOSINOPHILS # (AUTO) 0.2 10^3/uL (0.0-0.3); EOSINOPHILS % (AUTO) 3 % (0-10); LYMPHOCYTES # (AUTO) 2.2 X 10^3 (1.0-4.0); LYMPHOCYTES % (AUTO) 30 % (12-44); MEAN CORPUSCULAR HEMOGLOBIN 27 PG (25-34); MEAN CORPUSCULAR HGB CONC 31 G/DL (32-36); MEAN CORPUSCULAR VOLUME 88 FL (80-99); MEAN PLATELET VOLUME 8.6 FL (7.4-10.4); MONOCYTES # (AUTO) 0.5 X 10^3 (0.0-1.0); MONOCYTES % (AUTO) 7 % (0-12); NEUTROPHILS # (AUTO) 4.3 X 10^3 (1.8-7.8); NEUTROPHILS % (AUTO) 59 % (42-75); PLATELET COUNT 128 10^3/uL (130-400); RED BLOOD COUNT 3.44 10^6/uL (4.35-5.85); RED CELL DISTRIBUTION WIDTH 15.5 % (10.0-14.5); WHITE BLOOD COUNT 7.3 10^3/uL (4.3-11.0)
[2017-03-20 09:08] LABS: BASOPHILS % (AUTO) 0 % (0-10); EOSINOPHILS # (AUTO) 0.3 10^3/uL (0.0-0.3); EOSINOPHILS % (AUTO) 3 % (0-10); LYMPHOCYTES # (AUTO) 2.2 X 10^3 (1.0-4.0); LYMPHOCYTES % (AUTO) 23 % (12-44); MEAN CORPUSCULAR HEMOGLOBIN 29 PG (25-34); MEAN CORPUSCULAR HGB CONC 32 G/DL (32-36); MEAN CORPUSCULAR VOLUME 91 FL (80-99); MEAN PLATELET VOLUME 8.5 FL (7.4-10.4); MONOCYTES # (AUTO) 0.6 X 10^3 (0.0-1.0); MONOCYTES % (AUTO) 6 % (0-12); NEUTROPHILS # (AUTO) 6.6 X 10^3 (1.8-7.8); NEUTROPHILS % (AUTO) 68 % (42-75); PLATELET COUNT 142 10^3/uL (130-400); RED BLOOD COUNT 3.46 10^6/uL (4.35-5.85); RED CELL DISTRIBUTION WIDTH 18.4 % (10.0-14.5); WHITE BLOOD COUNT 9.7 10^3/uL (4.3-11.0)
[~2017-04-17 12:53] MED LIST changes: +ACID1TAB PO; +ALBU18HF2 INH; +ASPI-983 PO; +CIPR-242 PO; +CITA20TA7 PO; +DARBEPOETIN 25 MCG/ML (CANCER CTR) 1 ML VIAL SC SCH; +FERRIC CARBOXYMALTOSE (CANCER) 750 MG in NS (IVPB) CANCER CENTER 250 ML IV SCH; +FISH1CAP15 PO; +FLUT16SP22 NS; +LEVO125T6 PO; +LORA10TA7 PO; +NYST15CR TP
[2017-04-17 13:08] LABS: BASOPHILS # (AUTO) 0.1 10^3/uL (0.0-0.1); BASOPHILS % (AUTO) 1 % (0-10); EOSINOPHILS # (AUTO) 0.2 10^3/uL (0.0-0.3); EOSINOPHILS % (AUTO) 2 % (0-10); LYMPHOCYTES # (AUTO) 2.9 X 10^3 (1.0-4.0); LYMPHOCYTES % (AUTO) 26 % (12-44); MEAN CORPUSCULAR HEMOGLOBIN 28 PG (25-34); MEAN CORPUSCULAR HGB CONC 31 G/DL (32-36); MEAN CORPUSCULAR VOLUME 89 FL (80-99); MEAN PLATELET VOLUME 8.4 FL (7.4-10.4); MONOCYTES # (AUTO) 0.6 X 10^3 (0.0-1.0); MONOCYTES % (AUTO) 5 % (0-12); NEUTROPHILS # (AUTO) 7.3 X 10^3 (1.8-7.8); NEUTROPHILS % (AUTO) 66 % (42-75); PLATELET COUNT 207 10^3/uL (130-400); RED BLOOD COUNT 3.38 10^6/uL (4.35-5.85); RED CELL DISTRIBUTION WIDTH 18.6 % (10.0-14.5)
[2017-04-17 13:50] LABS: ALBUMIN 4.1 GM/DL (3.2-4.5); BILIRUBIN,TOTAL 0.5 MG/DL (0.1-1.0); CALCIUM 9.8 MG/DL (8.5-10.1); CREATININE SERUM 1.57 MG/DL (0.60-1.30); POTASSIUM 4.2 MMOL/L (3.6-5.0)
[2017-04-17 14:16] LABS: BILIRUBIN,URINE NEGATIVE (NEGATIVE); KETONES,URINE NEGATIVE (NEGATIVE); LEUKOCYTE ESTERASE ,URINE 1+ (NEGATIVE); NITRITE,URINE NEGATIVE (NEGATIVE); PH,URINE 5 (5-9); PROTEIN,URINE 2+ (NEGATIVE); UROBILINOGEN,URINE NORMAL (NORMAL)
[2017-04-17 14:41] LABS: HYALINE CASTS, URINE 0-2 /LPF
== END 2017-04-26 | disposition home or self-care (01) ==
LOC: ONC 12:53
PROVIDERS: ATTEND Internal Medicine Hematology & Oncology
DX: N18.3 Chronic kidney disease, stage 3 (moderate) (principal); D63.1 Anemia in chronic kidney disease; D50.0 Iron deficiency anemia secondary to blood loss (chronic); Z79.899 Other long term (current) drug therapy
CPT/HCPCS: 36415; 80053; 81000; 82728; 85025; 87088; 96365; 96372; 99213

== ENCOUNTER 2017-07-23 13:38 | Outpatient (RCR) | payer MEDICARE, MEDICAID ==
[2017-05-01 10:46] LABS: BASOPHILS % (AUTO) 0 % (0-10); EOSINOPHILS # (AUTO) 0.4 10^3/uL (0.0-0.3); EOSINOPHILS % (AUTO) 5 % (0-10); HEMATOCRIT 30 % (35-52); HEMOGLOBIN 9.5 G/DL (11.5-16.0); LYMPHOCYTES # (AUTO) 2.4 X 10^3 (1.0-4.0); LYMPHOCYTES % (AUTO) 30 % (12-44); MEAN CORPUSCULAR HEMOGLOBIN 28 PG (25-34); MEAN CORPUSCULAR HGB CONC 31 G/DL (32-36); MEAN CORPUSCULAR VOLUME 91 FL (80-99); MEAN PLATELET VOLUME 9.5 FL (7.4-10.4); MONOCYTES # (AUTO) 0.6 X 10^3 (0.0-1.0); MONOCYTES % (AUTO) 7 % (0-12); NEUTROPHILS # (AUTO) 4.5 X 10^3 (1.8-7.8); NEUTROPHILS % (AUTO) 57 % (42-75); PLATELET COUNT 149 10^3/uL (130-400); RED BLOOD COUNT 3.36 10^6/uL (4.35-5.85); RED CELL DISTRIBUTION WIDTH 18.7 % (10.0-14.5); WHITE BLOOD COUNT 7.8 10^3/uL (4.3-11.0)
[2017-05-15 13:45] LABS: BASOPHILS % (AUTO) 1 % (0-10); EOSINOPHILS # (AUTO) 0.2 10^3/uL (0.0-0.3); EOSINOPHILS % (AUTO) 3 % (0-10); HEMATOCRIT 32 % (35-52); HEMOGLOBIN 10.2 G/DL (11.5-16.0); LYMPHOCYTES # (AUTO) 2.7 X 10^3 (1.0-4.0); LYMPHOCYTES % (AUTO) 34 % (12-44); MEAN CORPUSCULAR HEMOGLOBIN 29 PG (25-34); MEAN CORPUSCULAR HGB CONC 32 G/DL (32-36); MEAN CORPUSCULAR VOLUME 92 FL (80-99); MONOCYTES # (AUTO) 0.4 X 10^3 (0.0-1.0); MONOCYTES % (AUTO) 6 % (0-12); NEUTROPHILS # (AUTO) 4.6 X 10^3 (1.8-7.8); NEUTROPHILS % (AUTO) 58 % (42-75); PLATELET COUNT 112 10^3/uL (130-400); RED BLOOD COUNT 3.53 10^6/uL (4.35-5.85); RED CELL DISTRIBUTION WIDTH 17.3 % (10.0-14.5); WHITE BLOOD COUNT 7.9 10^3/uL (4.3-11.0)
[2017-05-29 11:58] LABS: BASOPHILS % (AUTO) 0 % (0-10); EOSINOPHILS # (AUTO) 0.3 10^3/uL (0.0-0.3); EOSINOPHILS % (AUTO) 4 % (0-10); HEMATOCRIT 34 % (35-52); HEMOGLOBIN 10.9 G/DL (11.5-16.0); LYMPHOCYTES # (AUTO) 2.2 X 10^3 (1.0-4.0); LYMPHOCYTES % (AUTO) 30 % (12-44); MEAN CORPUSCULAR HEMOGLOBIN 30 PG (25-34); MEAN CORPUSCULAR HGB CONC 32 G/DL (32-36); MEAN CORPUSCULAR VOLUME 92 FL (80-99); MONOCYTES # (AUTO) 0.4 X 10^3 (0.0-1.0); MONOCYTES % (AUTO) 6 % (0-12); NEUTROPHILS # (AUTO) 4.5 X 10^3 (1.8-7.8); NEUTROPHILS % (AUTO) 61 % (42-75); PLATELET COUNT 130 10^3/uL (130-400); RED BLOOD COUNT 3.66 10^6/uL (4.35-5.85); RED CELL DISTRIBUTION WIDTH 16.2 % (10.0-14.5); WHITE BLOOD COUNT 7.3 10^3/uL (4.3-11.0)
[2017-06-12 09:31] LABS: BASOPHILS % (AUTO) 0 % (0-10); EOSINOPHILS # (AUTO) 0.3 10^3/uL (0.0-0.3); EOSINOPHILS % (AUTO) 3 % (0-10); HEMATOCRIT 34 % (35-52); HEMOGLOBIN 11.2 G/DL (11.5-16.0); LYMPHOCYTES # (AUTO) 2.4 X 10^3 (1.0-4.0); LYMPHOCYTES % (AUTO) 26 % (12-44); MEAN CORPUSCULAR HEMOGLOBIN 30 PG (25-34); MEAN CORPUSCULAR HGB CONC 33 G/DL (32-36); MEAN CORPUSCULAR VOLUME 91 FL (80-99); MEAN PLATELET VOLUME 9.1 FL (7.4-10.4); MONOCYTES # (AUTO) 0.6 X 10^3 (0.0-1.0); MONOCYTES % (AUTO) 7 % (0-12); NEUTROPHILS # (AUTO) 5.7 X 10^3 (1.8-7.8); NEUTROPHILS % (AUTO) 63 % (42-75); PLATELET COUNT 139 10^3/uL (130-400); RED BLOOD COUNT 3.79 10^6/uL (4.35-5.85); RED CELL DISTRIBUTION WIDTH 15.2 % (10.0-14.5)
[2017-06-24 14:20] LABS: BASOPHILS % (AUTO) 0 % (0-10); EOSINOPHILS # (AUTO) 0.3 10^3/uL (0.0-0.3); EOSINOPHILS % (AUTO) 3 % (0-10); HEMATOCRIT 33 % (35-52); HEMOGLOBIN 10.8 G/DL (11.5-16.0); LYMPHOCYTES # (AUTO) 2.6 X 10^3 (1.0-4.0); LYMPHOCYTES % (AUTO) 28 % (12-44); MEAN CORPUSCULAR HEMOGLOBIN 29 PG (25-34); MEAN CORPUSCULAR HGB CONC 33 G/DL (32-36); MEAN CORPUSCULAR VOLUME 91 FL (80-99); MEAN PLATELET VOLUME 9.5 FL (7.4-10.4); MONOCYTES # (AUTO) 0.5 X 10^3 (0.0-1.0); MONOCYTES % (AUTO) 6 % (0-12); NEUTROPHILS # (AUTO) 5.9 X 10^3 (1.8-7.8); NEUTROPHILS % (AUTO) 63 % (42-75); PLATELET COUNT 137 10^3/uL (130-400); RED BLOOD COUNT 3.67 10^6/uL (4.35-5.85); WHITE BLOOD COUNT 9.3 10^3/uL (4.3-11.0)
[2017-06-24 14:44] LABS: ALBUMIN 4.2 GM/DL (3.2-4.5); BILIRUBIN,TOTAL 0.5 MG/DL (0.1-1.0); CALCIUM 10.1 MG/DL (8.5-10.1); CREATININE SERUM 1.67 MG/DL (0.60-1.30); POTASSIUM 4.6 MMOL/L (3.6-5.0); TOTAL PROTEIN 6.9 GM/DL (6.4-8.2)
[2017-07-08 11:19] LABS: BASOPHILS % (AUTO) 0 % (0-10); EOSINOPHILS # (AUTO) 0.4 10^3/uL (0.0-0.3); EOSINOPHILS % (AUTO) 4 % (0-10); HEMATOCRIT 34 % (35-52); HEMOGLOBIN 10.9 G/DL (11.5-16.0); LYMPHOCYTES # (AUTO) 2.4 X 10^3 (1.0-4.0); LYMPHOCYTES % (AUTO) 25 % (12-44); MEAN CORPUSCULAR HEMOGLOBIN 29 PG (25-34); MEAN CORPUSCULAR HGB CONC 32 G/DL (32-36); MEAN CORPUSCULAR VOLUME 90 FL (80-99); MEAN PLATELET VOLUME 9.3 FL (7.4-10.4); MONOCYTES # (AUTO) 0.6 X 10^3 (0.0-1.0); MONOCYTES % (AUTO) 7 % (0-12); NEUTROPHILS # (AUTO) 6.1 X 10^3 (1.8-7.8); NEUTROPHILS % (AUTO) 64 % (42-75); PLATELET COUNT 138 10^3/uL (130-400); RED BLOOD COUNT 3.81 10^6/uL (4.35-5.85); RED CELL DISTRIBUTION WIDTH 14.8 % (10.0-14.5); WHITE BLOOD COUNT 9.5 10^3/uL (4.3-11.0)
[~2017-07-23 13:38] MED LIST changes: -FERRIC CARBOXYMALTOSE (CANCER) 750 MG in NS (IVPB) CANCER CENTER 250 ML IV SCH; -METO-272 PO; +METO-370 PO
[2017-07-23 14:03] LABS: BASOPHILS % (AUTO) 0 % (0-10); EOSINOPHILS # (AUTO) 0.3 10^3/uL (0.0-0.3); EOSINOPHILS % (AUTO) 4 % (0-10); HEMATOCRIT 33 % (35-52); HEMOGLOBIN 10.3 G/DL (11.5-16.0); LYMPHOCYTES % (AUTO) 24 % (12-44); MEAN CORPUSCULAR HEMOGLOBIN 28 PG (25-34); MEAN CORPUSCULAR HGB CONC 31 G/DL (32-36); MEAN CORPUSCULAR VOLUME 90 FL (80-99); MEAN PLATELET VOLUME 9.2 FL (7.4-10.4); MONOCYTES # (AUTO) 0.5 X 10^3 (0.0-1.0); MONOCYTES % (AUTO) 6 % (0-12); NEUTROPHILS # (AUTO) 5.7 X 10^3 (1.8-7.8); NEUTROPHILS % (AUTO) 67 % (42-75); PLATELET COUNT 134 10^3/uL (130-400); RED BLOOD COUNT 3.66 10^6/uL (4.35-5.85); RED CELL DISTRIBUTION WIDTH 14.7 % (10.0-14.5); WHITE BLOOD COUNT 8.5 10^3/uL (4.3-11.0)
== END 2017-07-30 | disposition home or self-care (01) ==
LOC: ONC 13:38
PROVIDERS: ATTEND Internal Medicine Hematology & Oncology
DX: N18.3 Chronic kidney disease, stage 3 (moderate) (principal); D63.1 Anemia in chronic kidney disease; Z79.899 Other long term (current) drug therapy
CPT/HCPCS: 36415; 80053; 82728; 85025; 96372

== ENCOUNTER → 2017-08-06 | Outpatient (CLI) | payer MEDICAID, MEDICARE ==
[~2017-08-06] MED LIST changes: -DARBEPOETIN 25 MCG/ML (CANCER CTR) 1 ML VIAL SC SCH
--- NOTE | 2017-08-06 14:22 | Diagnostic Imaging Report ---
PROCEDURE: CT chest without contrast. TECHNIQUE: Multiple contiguous axial images were obtained through the chest without the use of intravenous contrast. INDICATION: Lung nodules. FINDINGS: The previous CT chest exam performed on 06/27/16 noted a few nodules in both lungs. These nodules appeared stable when compared to the previous exam of 07/03/15 are felt to be most likely benign. On this study, the 6.4 mm nodule along the periphery of the right lower lobe seen previously is again evident and no different. The 6.7 mm nodule in the left lower lobe seen previously is also unchanged (image 42 of 68). The 9 mm nodule near the right hemidiaphragm medially seen previously is stable as well (image 52 of 68). There are a few other smaller nodules in both lungs and these seem similar to the prior study as well. There is no new mass identified. The cardiomegaly and the chronic pulmonary changes seen on the prior study are again visualized and no different. Coronary artery calcifications are also again evident. The aorta is not abnormally dilated. There is no obvious mediastinal or hilar adenopathy. The thyroid gland is generally unremarkable. The sections through the upper abdomen failed to show any sign of an acute abnormality. The roughly 3.5 cm left adrenal mass noted on the prior exam is again visualized and no different. The bone windows show no sign of a fracture or of a destructive lesion. IMPRESSION: 1. There are pulmonary nodules in both lungs. These seem stable when compared to the prior exam and consequently are most likely benign. 2. There is no evidence for an acute cardiopulmonary abnormality. 3. There is cardiomegaly and coronary artery disease. 4. The nodule associated with the left adrenal gland seen previously is no different. Most likely, this is a benign process such as an adrenal adenoma. Dictated by: Dictated on workstation # [id number]
== END ==
LOC: RAD 13:27
PROVIDERS: ATTEND Nurse Practitioner Family
DX: I25.10 Atherosclerotic heart disease of native coronary artery without angina pectoris (principal); I27.20 Pulmonary hypertension, unspecified; I51.7 Cardiomegaly; R91.8 Other nonspecific abnormal finding of lung field; E27.9 Disorder of adrenal gland, unspecified; J30.9 Allergic rhinitis, unspecified
CPT/HCPCS: 71250

== ENCOUNTER 2017-08-19 13:36 | Outpatient (RCR) | payer MEDICARE, MEDICAID ==
[2017-08-05 09:45] LABS: BASOPHILS # (AUTO) 0.1 10^3/uL (0.0-0.1); BASOPHILS % (AUTO) 1 % (0-10); EOSINOPHILS # (AUTO) 0.5 10^3/uL (0.0-0.3); EOSINOPHILS % (AUTO) 5 % (0-10); HEMATOCRIT 32 % (35-52); HEMOGLOBIN 10.6 G/DL (11.5-16.0); LYMPHOCYTES # (AUTO) 2.9 X 10^3 (1.0-4.0); LYMPHOCYTES % (AUTO) 28 % (12-44); MEAN CORPUSCULAR HEMOGLOBIN 29 PG (25-34); MEAN CORPUSCULAR HGB CONC 33 G/DL (32-36); MEAN CORPUSCULAR VOLUME 89 FL (80-99); MEAN PLATELET VOLUME 9.3 FL (7.4-10.4); MONOCYTES # (AUTO) 0.7 X 10^3 (0.0-1.0); MONOCYTES % (AUTO) 7 % (0-12); NEUTROPHILS # (AUTO) 6.1 X 10^3 (1.8-7.8); NEUTROPHILS % (AUTO) 60 % (42-75); PLATELET COUNT 151 10^3/uL (130-400); RED BLOOD COUNT 3.65 10^6/uL (4.35-5.85); RED CELL DISTRIBUTION WIDTH 14.5 % (10.0-14.5); WHITE BLOOD COUNT 10.2 10^3/uL (4.3-11.0)
[~2017-08-19 13:36] MED LIST changes: +DARBEPOETIN 25 MCG/ML (CANCER CTR) 1 ML VIAL SC SCH
[2017-08-19 14:13] LABS: BASOPHILS % (AUTO) 0 % (0-10); EOSINOPHILS # (AUTO) 0.3 10^3/uL (0.0-0.3); EOSINOPHILS % (AUTO) 4 % (0-10); HEMATOCRIT 29 % (35-52); HEMOGLOBIN 9.4 G/DL (11.5-16.0); LYMPHOCYTES # (AUTO) 2.6 X 10^3 (1.0-4.0); LYMPHOCYTES % (AUTO) 29 % (12-44); MEAN CORPUSCULAR HEMOGLOBIN 28 PG (25-34); MEAN CORPUSCULAR HGB CONC 33 G/DL (32-36); MEAN CORPUSCULAR VOLUME 86 FL (80-99); MEAN PLATELET VOLUME 9.5 FL (7.4-10.4); MONOCYTES # (AUTO) 0.5 X 10^3 (0.0-1.0); MONOCYTES % (AUTO) 6 % (0-12); NEUTROPHILS # (AUTO) 5.4 X 10^3 (1.8-7.8); NEUTROPHILS % (AUTO) 62 % (42-75); PLATELET COUNT 107 10^3/uL (130-400); RED BLOOD COUNT 3.37 10^6/uL (4.35-5.85); RED CELL DISTRIBUTION WIDTH 14.3 % (10.0-14.5); WHITE BLOOD COUNT 8.8 10^3/uL (4.3-11.0)
[2017-08-19 14:31] LABS: ALBUMIN 4.1 GM/DL (3.2-4.5); BILIRUBIN,TOTAL 0.5 MG/DL (0.1-1.0); CALCIUM 9.9 MG/DL (8.5-10.1); CREATININE SERUM 1.62 MG/DL (0.60-1.30); POTASSIUM 5.2 MMOL/L (3.6-5.0); TOTAL PROTEIN 6.9 GM/DL (6.4-8.2)
[2017-09-02] MEDS ORDERED: NF-SOLIF5T PO (16:04)
[2017-09-02] MEDS ORDERED: PREG100C PO (16:04)
[2017-09-02] MEDS ORDERED: OLME40TA18 PO (16:04)
[2017-09-02] MEDS ORDERED: TRAM50TA2 PO (16:14)
== END 2017-09-02 09:26 | disposition home or self-care (01) ==
LOC: ONC 13:36
PROVIDERS: ATTEND Internal Medicine Hematology & Oncology
DX: N18.3 Chronic kidney disease, stage 3 (moderate) (principal); D63.1 Anemia in chronic kidney disease; Z79.899 Other long term (current) drug therapy
CPT/HCPCS: 36415; 80053; 82728; 85025; 96372

== ENCOUNTER 2017-09-02 14:36 | Inpatient (IN) | payer MEDICAID, MEDICARE ==
[~2017-09-02] VITALS: Ht 167.6 cm; Wt 75.1 kg
[~2017-09-02 14:36] MED LIST changes: -NF-SOLIF5T PO; -OLME40TA18 PO; -PREG100C PO; -TRAM50TA2 PO
[2017-09-02 15:00] VITALS: BP 136/61
[2017-09-02] MEDS ORDERED: cefTRIAXone INJECTION 1,000 MG in NS (IVPB) 50 ML IV SCH (15:00)
[2017-09-02] MEDS ORDERED: CATHETER FLUSH 10 ML SYR IV PRN ×2 (15:30→15:45)
--- NOTE | 2017-09-02 15:44 | History & Physical-Hospitalist ---
HPI History of Present Illness: HPI/Chief Complaint Pt is an 82yoCF known to me from previous admission with a PMH of CKD IV, COPD, DM, and HTN who was direct admitted from her PCP's for PNA and weakness. She reports that she has been fighting a cold for 3 weeks and was treated for the flu at that time. Her daughter believes she was given abx as well during that time. She was seen by her PCP for cough and hemoptysis and diagnosed clinical with PNA. Since 08/31 she has become very weak and is falling multiple times a day. Her daughter states she has not been able to walk with her walker lately due to the weakness. Friday she feel and hit her head and hurt he left ankle. Patient also complaing of decreased appetite and diarrhea. She denies any fevers. They have been using OTC cough syrup for treatment of her cough. Source: patient, family Exam Limitations: no limitations Date Seen 09/02/17 Time Seen by Provider: 15:25 Attending Physician Suha Rivas MD PCP Andres Bui MD Referring Physician Date of Admission Sep 02, 2017 at 3:19 pm Home Medications & Allergies Home Medications Reviewed patient Home Medication Reconciliation Form Allergies Allergies Coded Allergies Penicillins (Verified Allergy, Unknown, Pt has received Ceftriaxone in the past, 09/02/17) influenza virus vaccine, specific (Verified Allergy, Unknown, 02/02/15) Past [id number]-Zwrngp Hx Patient Social History Living Status: Lives with daughter Employed/Student: retired [employer] Smoke Exposure: No Recent Hopitalizations: No Immunizations Up To Date Tetanus Booster (TDap): Unknown Date of Pneumonia Vaccine: Aug 28, 2012 Seasonal Allergies Seasonal Allergies: No Surgeries Yes (SEVERAL) Appendectomy, Eye Surgery, Hysterectomy, Joint Replacement Respiratory Yes Currently Using CPAP: Yes Cardiovascular Yes Hypertension Neurological No 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 System Hx 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 Disorders: No Sexually Transmitted Disease: No HIV/AIDS: No Female 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 Disorders: Denies Genitourinary Yes Renal Failure, UTI-Chronic Gastrointestinal Yes Gastroesophageal Reflux, Polyps, Hiatal Hernia Musculoskeletal No Endocrine History of Endocrine Disorders: Yes (THYROID DISEASE) Endocrine Disorders: Diabetes, Insulin dep HEENT HEENT Disorders: Cataract Loss of Vision: Denies Hearing Impairment: Denies Cancer No Psychosocial History of Psychiatric Problem: Yes Behavioral Health Disorders: Anxiety, Depression Integumentary History of Skin or Integumenta: No Blood Transfusions History of Blood Disorders: Yes (ANEMIA) Adverse Reaction to a Blood Tr: No Family Medical History Family Hx: Arthritis Cardiovascular disease Diabetes mellitus Hypertension Review of Systems Constitutional: No fever, malaise, weakness EENTM: No blurred vision, No double vision, No hoarseness, No throat pain Respiratory: cough, hemoptysis, phlegm, No wheezing Cardiovascular: No chest pain, No edema, No palpitations, No syncope Gastrointestinal: No abdominal pain, No constipation, diarrhea, loss of appetite, No nausea, No vomiting Genitourinary: No dysuria, No frequency Musculoskeletal: joint pain, muscle weakness Skin: no symptoms reported Psychiatric/Neurological: No Symptoms Reported Physical Exam Physical Exam Vital Signs Vital Signs - First Documented 09/02/17 15:00 Temp 97.3 Pulse 89 Resp 18 B/P (MAP) 136/61 (86) Pulse Ox 97 O2 Delivery Room Air Capillary Refill : General Appearance: No Apparent Distress, WD/WN HEENT: PERRL/EOMI, Moist Mucous Membranes Neck: Non Tender, Supple Respiratory: No Accessory Muscle Use, No Respiratory Distress, Crackles (in left lung base), Wheezing (scant diffuse) Cardiovascular: Regular Rate, Rhythm, No Murmur Gastrointestinal: Normal Bowel Sounds, Non Tender, Soft Extremity: No Calf Tenderness, Other (left ankle swelling) Neurologic/Psychiatric: Alert, Oriented x3, Normal Mood/Affect Skin: Normal Color, Warm/Dry, Ecchymosis (multiple, most notably on left lower extremity) Assessment/Plan Admission Diagnosis PNA Diagnosis/Problems Diagnosis/Problems (1) CAP (community acquired pneumonia) Status: Acute Assessment & Plan: Will start Ceftriaxone and Azithro Will get CXR Obtain labs for sepsis Will get blood cultures Qualifiers: Qualified Codes: J18.1 - Lobar pneumonia, unspecified organism (2) Acute renal failure Status: Acute Assessment & Plan: Known CKD Stage IV per Delfin Michaud Labs at clinic showed Drag Seiner of 2.39- will repeat IVF (3) Multiple falls Assessment & Plan: Will get XR of ankle and CT head and Neck Not on anticoagulation Will consult trauma for eval given multiple falls (4) Essential (primary) hypertension Assessment & Plan: Continue home meds when med rec available (5) COPD (chronic obstructive pulmonary disease) Status: Chronic Assessment & Plan: Scant wheezing but normal oxygenation Will start MAT protocol but hold on steroids Qualifiers: Qualified Codes: J44.0 - Chronic obstructive pulmonary disease with acute lower respiratory infection (6) Non-insulin dependent type 2 diabetes mellitus Assessment & Plan: SSI Home meds when available (7) Hypothyroidism Status: Chronic Assessment & Plan: Synthroid (8) Anemia Status: Chronic Assessment & Plan: Follows with heme Qualifiers: Qualified Codes: N18.4 - Chronic kidney disease, stage 4 (severe); D63.1 - Anemia in chronic kidney disease (9) Prophylactic measure Assessment & Plan: NS @100ml/hr ADA diet SCDs only given high fall risk SUHA RIVAS MD Sep 02, 2017 3:44 pm
[2017-09-02] MEDS ORDERED: IOHEXOL 350 MG/ML 100 ML (OMNIPAQUE 350) VIAL IV ONE (15:45)
[2017-09-02] MEDS ORDERED: NS 250 ML (IVPB) BAG IV ONE (15:45)
[2017-09-02] MEDS ORDERED: NF-SOLIF5T PO (16:04)
[2017-09-02] MEDS ORDERED: OLME40TA18 PO (16:04)
[2017-09-02] MEDS ORDERED: PREG100C PO (16:04)
[2017-09-02] MEDS ORDERED: TRAM50TA2 PO (16:14)
[2017-09-02 16:36] LABS: BASOPHILS % (AUTO) 0 % (0-10); EOSINOPHILS # (AUTO) 0.2 10^3/uL (0.0-0.3); EOSINOPHILS % (AUTO) 2 % (0-10); HEMATOCRIT 26 % (35-52); HEMOGLOBIN 8.4 G/DL (11.5-16.0); LYMPHOCYTES # (AUTO) 2.6 X 10^3 (1.0-4.0); LYMPHOCYTES % (AUTO) 16 % (12-44); MEAN CORPUSCULAR HEMOGLOBIN 27 PG (25-34); MEAN CORPUSCULAR HGB CONC 32 G/DL (32-36); MEAN CORPUSCULAR VOLUME 83 FL (80-99); MEAN PLATELET VOLUME 9.9 FL (7.4-10.4); MONOCYTES # (AUTO) 1.3 X 10^3 (0.0-1.0); MONOCYTES % (AUTO) 9 % (0-12); NEUTROPHILS # (AUTO) 11.5 X 10^3 (1.8-7.8); NEUTROPHILS % (AUTO) 73 % (42-75); PLATELET COUNT 165 10^3/uL (130-400); RED BLOOD COUNT 3.14 10^6/uL (4.35-5.85); RED CELL DISTRIBUTION WIDTH 14.8 % (10.0-14.5); WHITE BLOOD COUNT 15.8 10^3/uL (4.3-11.0)
[2017-09-02 16:42] LABS: INR 1.3 (0.8-1.4); PROTHROMBIN TIME PATIENT 15.9 SEC (12.2-14.7)
--- NOTE | 2017-09-02 16:43 | Diagnostic Imaging Report ---
Indication: Fall, swelling, bruising, shortness of breath. Comparison: 04/03/2017 Findings: Air trapping and COPD chronic. There is prominence of interstitial lung markings, chronic. No focal consolidation, effusion or pneumothorax. Impression: Stable, chronic findings. Dictated by: Dictated on workstation # [id number]
[2017-09-02 16:50] LABS: BAND NEUTROPHILS 2 %; BASOPHILS % (MANUAL) 0 %; EOSINOPHILS % (MANUAL) 0 %; LYMPHOCYTES % (MANUAL) 29 %; MONOCYTES % (MANUAL) 3 %; NEUTROPHILS % (MANUAL) 66 %
[2017-09-02 16:51] LABS: ALBUMIN 3.9 GM/DL (3.2-4.5); BILIRUBIN,TOTAL 0.8 MG/DL (0.1-1.0); CALCIUM 10.2 MG/DL (8.5-10.1); CREATININE SERUM 2.13 MG/DL (0.60-1.30); POTASSIUM 5.3 MMOL/L (3.6-5.0); RBC MORPH NORMAL; TOTAL PROTEIN 7.3 GM/DL (6.4-8.2)
--- NOTE | 2017-09-02 17:00 | Diagnostic Imaging Report ---
EXAMINATION: Left ankle. INDICATION: Injury, ankle pain. Three views were obtained. FINDINGS: There is no fracture, dislocation, or acute bony abnormality. The ankle mortise is not widened, and the talar dome is smooth. There is generalized soft tissue edema about the ankle joint. Incidental note is made of a prominent calcaneal spur. IMPRESSION: There is soft tissue edema about the ankle joint, but there is no evidence for an acute bony abnormality. Dictated by: Dictated on workstation # [id number]
[2017-09-02] MEDS: NS IV 1000 ML 1,000 ML IV SCH (17:08)
[2017-09-02] MEDS ORDERED: AZITHROMYCIN INJECTION 500 MG in NS (IVPB) 250 ML IV SCH (17:19)
[2017-09-02] MEDS ORDERED: INFLUENZA TRIvalent 2017-2018 0.5 ML/45 MCG SYR IM ONE (17:30)
[2017-09-02 17:55] VITALS: BP 136/61
[2017-09-02] MEDS ORDERED: RT-ALBUTEROL/IPRATROPIUM 3 ML (DUONEB) VIAL INH PRN (18:15)
[2017-09-02 18:25] LABS: BILIRUBIN,URINE NEGATIVE (NEGATIVE); CLARITY,URINE SLIGHTLY CLOUDY; COLOR,URINE YELLOW; GLUCOSE, URINE (UA) NEGATIVE (NEGATIVE); KETONES,URINE NEGATIVE (NEGATIVE); LEUKOCYTE ESTERASE ,URINE 3+ (NEGATIVE); NITRITE,URINE POSITIVE (NEGATIVE); PH,URINE 5 (5-9); PROTEIN,URINE 2+ (NEGATIVE); UROBILINOGEN,URINE NORMAL (NORMAL)
[2017-09-02 18:36] LABS: BACTERIA,URINE FEW /HPF; WBC,URINE >100 /HPF
[2017-09-02] MEDS: inSUlin (REGULAR) HUMAN 1 UNIT/0.01 ML (CHARGE PER UNIT) SC SCH ×2 (18:41→21:27)
--- NOTE | 2017-09-02 18:47 | Consultation ---
History of Present Illness History of Present Illness Patient Consulted On(kelly/time) 09/02/17 18:42 Date Seen by Provider: Sep 02, 2017 Time Seen by Provider: 18:42 History of Present Illness Consult for multiple fall from standing from Dr. Rivas. Patient is an 82 year old female who has been feeling ill for about 3 weeks. She feels weak and has had about 7 falls. She denies any loss of consciousness. She did fall and strike her head on at lest one occasion she states. Patient reports having a cough for about 3 weeks as well. She states it has been productive of a bloody mucous substance. She states she has not had any fever. She has had loss of appetite. She notes having some pain in the left ankle. She says with her falls it doesn't matter what she's doing she can lose her balance and fall. She had an x ray of the left ankle not showing any acute abnormality, the chest x ray with stable chronic findings. She has had a ct head and c spine done which demonstrates c spine with degenerative changes without fracture or dislocation and head with parafalcine subdural hematoma without mass effect shift or herniation. No family at bedside at this time. Allergies and Home Medications Allergies Coded Allergies: Penicillins (Verified Allergy, Unknown, Pt has received Ceftriaxone in the past, 09/02/17) influenza virus vaccine, specific (Verified Adverse Reaction, Unknown, Not allergic just won't take Flu vaccine, 09/02/17) Home Medications Albuterol Sulfate 18 Gm Hfa.aer.ad, 2 PUFF INH Q4H PRN for SHORTNESS OF BREATH, (Reported) Alprazolam 0.25 Mg Tablet, 0.25 MG PO DAILY, (Reported) Aspirin 81 Mg Tablet.dr, 81 MG PO DAILY, (Reported) Atorvastatin Calcium 40 Mg Tablet, 40 MG PO HS, (Reported) Citalopram Hydrobromide 20 Mg Tablet, 20 MG PO HS, (Reported) Cyclosporine 1 Each Droperette, 1 DROP OU BID, (Reported) Fish Oil/Dha/Epa 1 Each Capsule, 3,600 MG PO DAILY, (Reported) TAKES 3 (1200MG) CAPSULES Fluticasone Propionate 16 Gm Sabael.susp, 1 SPRAY NS DAILY, (Reported) Fluticasone/Salmeterol 1 Each Blst.w.dev, 1 PUFF IH BID, (Reported) Folic Acid 0.8 Mg Tablet, 0.8 MG PO DAILY, (Reported) Furosemide 40 Mg Tablet, 40 MG PO DAILY, (Reported) Insulin Aspart 100 Unit/1 Ml Susp, 7 UNIT SQ BID, (Reported) WITH BREAKFAST AND EVENING MEAL Insulin Aspart 100 Unit/1 Ml Susp, 2 UNIT SQ 1200, (Reported) WITH LUNCH Insulin Determir 1,000 Units/10 Ml Soln, 60 UNITS SQ BID, (Reported) Levothyroxine Sodium 125 Mcg Tablet, 125 MCG PO DAILY, (Reported) Loratadine 10 Mg Tablet, 10 MG PO DAILY, (Reported) Meclizine HCl 25 Mg Tablet, 25 MG PO DAILY, (Reported) Metoprolol Succinate 50 Mg Tab.er.24h, 50 MG PO HS, (Reported) Multivitamin 1 Each Tablet, 1 TAB PO DAILY, (Reported) Niacin 1,000 Mg Tab.er.24h, 1,000 MG PO HS, (Reported) Olmesartan Medoxomil 40 Mg Tablet, 40 MG PO DAILY, (Reported) Omeprazole 40 Mg Capsule.dr, 40 MG PO DAILY, (Reported) Polyvinyl Alcohol/Povidone 15 Ml Drops, 1 DROP OU QID PRN for DRY EYES, ( Reported) Pregabalin 100 Mg Capsule, 100 MG PO TID, (Reported) Solifenacin Succinate 5 Mg Tablet, 5 MG PO DAILY, (Reported) Tiotropium Turney 1 Inh Aerp, 1 CAP IH HS, (Reported) Tramadol HCl 50 Mg Tablet, 50 MG PO TID PRN for PAIN-MODERATE, (Reported) Trazodone HCl 100 Mg Tablet, 100 MG PO HS, (Reported) Past [id number] Hx Patient Social History Alcohol Use: Denies Use Recreational Drug Use: No Smoking Status: Never a Smoker 2nd Hand Smoke Exposure: No Recent Hopitalizations: Yes ([id number]) Physical Abuse Screen: No Sexual Abuse: No Immunizations Up To Date Tetanus Booster (TDap): Unknown Date of Pneumonia Vaccine: Aug 28, 2012 Seasonal Allergies Seasonal Allergies: No Surgeries History of Surgeries: Yes (SEVERAL) Surgeries: Appendectomy, Eye Surgery, Hysterectomy, Joint Replacement Respiratory History of Respiratory Disorde: Yes Respiratory Disorders: Pneumonia, Chronic Bronchitis, Sleep Apnea Cardiovascular History of Cardiac Disorders: Yes Cardiac Disorders: Hypertension Neurological History of Neurological Disord: No 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 System Hx 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 Disorders: No Sexually Transmitted Disease: No HIV/AIDS: No Female 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 Disorders: Denies Genitourinary History of Genitourinary Disor: Yes Genitourinary Disorders: Renal Failure, UTI-Chronic Gastrointestinal History of Gastrointestinal Di: Yes Gastrointestinal Disorders: Gastroesophageal Reflux, Polyps, Hiatal Hernia Musculoskeletal History of Musculoskeletal Dis: No Endocrine History of Endocrine Disorders: Yes (THYROID DISEASE) Endocrine Disorders: Diabetes, Insulin dep HEENT HEENT Disorders: Cataract Loss of Vision: Denies Hearing Impairment: Denies Cancer History of Cancer: No Psychosocial History of Psychiatric Problem: Yes Behavioral Health Disorders: Anxiety, Depression Integumentary History of Skin or Integumenta: No Blood Transfusions History of Blood Disorders: Yes (ANEMIA) Adverse Reaction to a Blood Tr: No Family Medical History Significant Family History: No Pertinent Family Hx Family Medial History: Arthritis Cardiovascular disease Diabetes mellitus Hypertension Review of Systems-General Constitutional: see HPI, No fever, weakness EENTM: no symptoms reported Respiratory: see HPI, cough, hemoptysis Cardiovascular: no symptoms reported Gastrointestinal: no symptoms reported Genitourinary: no symptoms reported Musculoskeletal: see HPI Skin: other (bruising diffusely) Psychiatric/Neurological: See HPI Physical Exam-General Problems Physical Exam Vital Signs Vital Signs - First Documented 09/02/17 09/02/17 15:00 17:55 Temp 97.3 Pulse 89 Resp 18 B/P (MAP) 136/61 (86) Pulse Ox 97 O2 Delivery Room Air FiO2 21 Capillary Refill : General Appearance: no apparent distress HEENT: PERRL/EOMI, normal ENT inspection Neck: non-tender, full range of motion, supple, normal inspection Respiratory: other (coarse) Cardiovascular: irregularly irregular Gastrointestinal: non tender, soft Rectal: deferred Back: no CVA tenderness, no vertebral tenderness Extremities: other (left lower extremity pain at ankle, significant bruising) 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, alert, normal mood/affect, oriented x 3 Skin: warm/dry (diffuse bruising) Lymphatic: no adenopathy Data Review Labs Laboratory Tests 09/02/17 16:09: Glucometer 281H 09/02/17 16:15: White Blood Count 15.8H, Red Blood Count 3.14L, Hemoglobin 8.4L, Hematocrit 26L , Mean Corpuscular Volume 83, Mean Corpuscular Hemoglobin 27, Mean Corpuscular Hemoglobin Concent 32, Red Cell Distribution Width 14.8H, Platelet Count 165, Mean Platelet Volume 9.9, Neutrophils (%) (Auto) 73, Lymphocytes (%) (Auto) 16, Monocytes (%) (Auto) 9, Eosinophils (%) (Auto) 2, Basophils (%) (Auto) 0, Neutrophils # (Auto) 11.5H, Lymphocytes # (Auto) 2.6, Monocytes # (Auto) 1.3H, Eosinophils # (Auto) 0.2, Basophils # (Auto) 0.0, Neutrophils % (Manual) 66, Lymphocytes % (Manual) 29, Monocytes % (Manual) 3, Eosinophils % (Manual) 0, Basophils % (Manual) 0, Band Neutrophils 2, Blood Morphology Comment NORMAL, Prothrombin Time 15.9H, INR Comment 1.3, Sodium Level 128L, Potassium Level 5.3H , Chloride Level 102, Carbon Dioxide Level 16L, Anion Gap 10, Blood Urea Nitrogen 34H, Creatinine 2.13H, Estimat Glomerular Filtration Rate 22, BUN/ Creatinine Ratio 16, Glucose Level 239H, Lactic Acid Level 1.33, Calcium Level 10.2H, Total Bilirubin 0.8, Aspartate Amino Transf (AST/SGOT) 35H, Alanine Aminotransferase (ALT/SGPT) 40, Alkaline Phosphatase 126, Total Protein 7.3, Albumin 3.9 09/02/17 16:50: 09/02/17 18:18: Urine Color YELLOW, Urine Clarity SLIGHTLY CLOUDY, Urine pH 5, Urine Specific [place] 1.005L, Urine Protein 2+H, Urine Glucose (UA) NEGATIVE, Urine Ketones NEGATIVE, Urine Nitrite POSITIVEH, Urine Bilirubin NEGATIVE, Urine Urobilinogen NORMAL, Urine Leukocyte Esterase 3+H, Urine RBC (Auto) 2+H, Urine RBC 10-25H, Urine WBC >100H, Urine Crystals NONE, Urine Bacteria FEWH, Urine Casts NONE, Urine Mucus NEGATIVE, Urine Culture Indicated YES Microbiology 09/02/17 Influenza Types A,B Antigen (KAROLYN) - Final, Complete Assessment/Plan Assessment/Plan Assessment/Plan 82 year old female with multiple falls small subdural hematoma copd pneumonia UTI DM II CKD stage IV chronic anemia left ankle pain- no signs of fracture but significant bruising- xray no acute fracture. I discussed with Patient daughter Deepa (Rory) and patient s son in law about subdural hematoma. It is small and no other neurological changes at this time. I offered transfer to higher level of care or continue to provide neurochecks regularly here and repeat head ct scan in 12 hours. Patient family wishes not to transfer at this time. Plan on hourly neuro checks and repeat head ct in 12 hours to re- evaluate. Dr. Caldera consulted. Clinical Quality Measures DVT/VTE Risk/Contraindication: Risk Factor Score Per Nursin RFS Level Per Nursing on Admit: 4+=Very High FLOYD CORNEJO DO Sep 02, 2017 18:47
--- NOTE | 2017-09-02 18:49 | Diagnostic Imaging Report ---
PROCEDURE: CT head and CT cervical spine without contrast. TECHNIQUE: Multiple contiguous axial images were obtained through the brain and cervical spine without the use of intravenous contrast. Sagittal and coronal reformations through the cervical spine were then performed. INDICATION: Multiple falls. Head CT compared 04/03/2017. FINDINGS: Hyperdense acute-appearing small subdural hematoma. Right parafalcine posteriorly has a maximal transverse thickness of about 4.8 mm. It exerts no mass effect. There appears to be a trace amount of blood layering along the right tentorium along the subdural space. No other suspected blood product is found. Chronic cerebral cortical atrophy and chronic white matter disease is a stable finding. No hemosinus. No calvarial fracture deformity. Given positioning, the midline structures are not appreciably displaced. CT cervical spine: Exam compared with study 09/04/2012. There are advanced degenerative changes throughout the cervical spine. There is slight grade 1 listhesis anteriorly of C5 on C6 on a chronic degenerative basis. No acute or suspicious endplate irregularity. No cervical fracture or paravertebral hematoma. The skull base appears intact. IMPRESSION: CT head: Small parafalcine subdural hematoma with minimal blood products layering along the right tentorium. The findings result in no mass effect. There is no shift or herniation. No other blood products. No findings of generalized edema or evidence for elevation of the intracranial pressures. CT cervical spine: Degenerative changes without fracture or dislocation. I have spoken with the emergency room physician who is assisting in relaying the information to the attending inpatient physician. Report faxed to [facility] at 6:50 p.m. 09/02/2017/trey Dictated by: Dictated on workstation # [id number]
[2017-09-02 19:13] VITALS: BP 165/72
[2017-09-02] MEDS ORDERED: RT-ADVAIR HFA 115/21 MCG PER PUFF IH SCH (20:00)
[2017-09-02] MEDS: CATHETER FLUSH 10 ML SYR IV SCH (21:17)
[2017-09-02] MEDS: inSUlin ASPART (NovoLOG) 1 UNIT/0.01 ML (CHARGE PER UNIT) SQ SCH (21:27)
[2017-09-02] MEDS: inSUlin DETERMIR 1 UNIT/0.01 ML (LEVEMIR) CHARGE PER UNIT SQ SCH (21:27)
[2017-09-02] MEDS: traZODone 100 MG (DESYREL) TAB PO SCH (21:54)
[2017-09-02] MEDS: RT-ALBUTEROL/IPRATROPIUM 3 ML (DUONEB) VIAL INH SCH (22:08)
[2017-09-03] VITALS (17 sets, daily range): BP systolic 107–168; BP diastolic 50–70
[2017-09-03] MEDS: RT-ALBUTEROL/IPRATROPIUM 3 ML (DUONEB) VIAL INH SCH ×6 (01:53→22:41)
[2017-09-03] MEDS: CATHETER FLUSH 10 ML SYR IV SCH ×3 (05:09→21:29)
[2017-09-03] MEDS: NS IV 1000 ML 1,000 ML IV SCH ×3 (05:38→18:47)
[2017-09-03] MEDS: inSUlin (REGULAR) HUMAN 1 UNIT/0.01 ML (CHARGE PER UNIT) SC SCH ×4 (06:06→21:26)
[2017-09-03 06:16] LABS: BASOPHILS % (AUTO) 0 % (0-10); EOSINOPHILS # (AUTO) 0.1 10^3/uL (0.0-0.3); EOSINOPHILS % (AUTO) 1 % (0-10); HEMATOCRIT 26 % (35-52); HEMOGLOBIN 8.5 G/DL (11.5-16.0); LYMPHOCYTES # (AUTO) 1.3 X 10^3 (1.0-4.0); LYMPHOCYTES % (AUTO) 8 % (12-44); MEAN CORPUSCULAR HEMOGLOBIN 27 PG (25-34); MEAN CORPUSCULAR HGB CONC 33 G/DL (32-36); MEAN CORPUSCULAR VOLUME 82 FL (80-99); MEAN PLATELET VOLUME 9.4 FL (7.4-10.4); MONOCYTES % (AUTO) 6 % (0-12); NEUTROPHILS # (AUTO) 13.3 X 10^3 (1.8-7.8); NEUTROPHILS % (AUTO) 85 % (42-75); PLATELET COUNT 152 10^3/uL (130-400); RED BLOOD COUNT 3.18 10^6/uL (4.35-5.85); RED CELL DISTRIBUTION WIDTH 14.8 % (10.0-14.5); WHITE BLOOD COUNT 15.6 10^3/uL (4.3-11.0)
[2017-09-03 06:51] LABS: CALCIUM 10.1 MG/DL (8.5-10.1); CREATININE SERUM 1.78 MG/DL (0.60-1.30); POTASSIUM 5.1 MMOL/L (3.6-5.0)
[2017-09-03 06:52] LABS: INR 1.2 (0.8-1.4); PROTHROMBIN TIME PATIENT 15.7 SEC (12.2-14.7)
[2017-09-03] MEDS: ACETAMINOPHEN 500 MG TAB (TYLENOL) PO PRN ×2 (07:59→21:26)
--- NOTE | 2017-09-03 08:50 | Diagnostic Imaging Report ---
CLINICAL INDICATION: Patient with brain bleed. Followup exam. EXAM: Axial CT scan of brain performed without IV contrast. COMPARISON: CT scan of the head and cervical spine dated 09/02/2017. FINDINGS: Stable small amount of hyperdense blood along the mid and posterior aspect of the falx cerebri and minimal amount extending along the right tentorium. The thickest portion of this hyperdense subdural blood is seen in the mid and posterior falx cerebri region measures 5 mm in thickness. There is no other areas of intracranial blood seen. There is stable appearance of the brain parenchyma with no evidence of acute cerebral infarct, brain herniation or hydrocephalus. There is no intraventricular blood. There is brain parenchymal volume loss which appears appropriate for patient's age. There are some focal areas of low-attenuation white matter changes in both cerebral hemispheres likely representing chronic small vessel ischemic disease. There is no hydrocephalus. Basal cisterns are unremarkable. Extracranial soft tissue, skull, and orbits are stable and unremarkable. There is stable minimal soft tissue thickening in the extracranial left frontal region. There is no skull fracture. Paranasal sinuses and temporal bone structures are unremarkable. IMPRESSION: 1: Stable small amount of hyperdense subdural blood along the falx cerebri and right tentorium. 2: Otherwise, there are no other areas of intracranial hemorrhage or acute finding. 3: Age-related brain parenchymal changes. Dictated by: Dictated on workstation # [id number]
[2017-09-03] MEDS: inSUlin DETERMIR 1 UNIT/0.01 ML (LEVEMIR) CHARGE PER UNIT SQ SCH ×2 (08:58→21:26)
[2017-09-03] MEDS: inSUlin ASPART (NovoLOG) 1 UNIT/0.01 ML (CHARGE PER UNIT) SQ SCH ×3 (08:59→21:26)
[2017-09-03] MEDS ORDERED: PHARMACY TO DOSE IV SCH (09:15)
--- OUTSIDE RECORDS SUMMARY | 2017-09-03 09:26 | XMS REPORT | Continuity of Care Document ---
Author Author [facility] Organization [facility] Address Unknown Phone Unavailable Allergies Active Description Code Type Severity Reaction Onset Reported/Identified Relationship to Patient Clinical Status Yes Influenza Virus Vacc,Specific [id number] Drug Allergy Unknown N/A 2014 Yes influenza virus vaccine, specific [id number] Drug Allergy Unknown N/A 02/02 Yes Penicillins [id number] Drug Allergy Unknown N/A 02/02/2015 Yes influenza virus vaccine, specific [id number] Drug Allergy Unknown Not allergic ju 09/02/2017 Yes Penicillins [id number] Drug Allergy Unknown Pt has received 09/02/2017 Medications There is no data. Problems Date Dx Coded Attending Type Code Diagnosis Diagnosed By 06/26/1099 DINORA GREEN Ot D50.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 06/26/1099 DINORA GREEN Ot D63.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 06/26/1099 DINORA GREEN Ot N18.3 CHRONIC KIDNEY DISEASE, STAGE 3 (MODERAT 06/26/1099 DINORA GREEN Ot Z79.899 OTHER HALFWAY (CURRENT) DRUG THERAPY 06/26/1516 EZ TY, TAPAN Carvajal Ot R49.0 DYSPHONIA 10/24/2009 Ot 250.00 10/24/2009 Ot 272.4 10/24/2009 Ot 280.0 10/24/2009 Ot 285.9 10/24/2009 Ot 414.00 10/24/2009 Ot 433.10 10/24/2009 Ot 585.3 10/24/2009 Ot V58.63 10/24/2009 Ot V58.66 10/24/2009 Ot V58.67 10/24/2009 Ot V58.69 11/27/2009 Ot 786.2 01/01/2010 Ot 038.9 01/01/2010 Ot 244.9 01/01/2010 Ot 250.52 01/01/2010 Ot 272.4 01/01/2010 Ot 280.9 01/01/2010 Ot 285.29 01/01/2010 Ot 287.5 01/01/2010 Ot 311 01/01/2010 Ot 362.01 01/01/2010 Ot 401.9 01/01/2010 Ot 414.01 01/01/2010 Ot 416.8 01/01/2010 Ot 427.31 01/01/2010 Ot 433.30 01/01/2010 Ot 493.90 01/01/2010 Ot 593.9 01/01/2010 Ot 599.0 01/01/2010 Ot 995.91 01/01/2010 Ot V12.54 01/01/2010 Ot V45.82 01/28/2010 Ot 244.8 01/28/2010 Ot 250.02 01/28/2010 Ot 272.4 01/28/2010 Ot 285.9 04/10/2010 Ot 250.00 04/10/2010 Ot 272.4 05/09/2010 Ot 244.8 05/09/2010 Ot 250.02 05/09/2010 Ot 270.4 05/09/2010 Ot 272.4 05/09/2010 Ot 280.0 05/09/2010 Ot 585.3 05/09/2010 Ot V58.63 05/09/2010 Ot V58.67 05/09/2010 Ot V58.69 07/19/2010 Ot 250.00 07/19/2010 Ot 272.4 09/03/2010 Ot 244.8 09/03/2010 Ot 250.02 09/03/2010 Ot 270.4 09/03/2010 Ot 272.4 09/03/2010 Ot 280.0 09/03/2010 Ot 585.3 09/03/2010 Ot V58.63 09/03/2010 Ot V58.67 09/03/2010 Ot V58.69 01/08/2011 Ot 244.8 ACQUIRED HYPOTHYROID NEC 01/08/2011 Ot 250.02 DIAB ЮЛИЯ WO COMPL, TYPE II OR UNSPEC TY 01/08/2011 Ot 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 01/08/2011 Ot 272.4 HYPERLIPIDEMIA NEC/NOS 01/08/2011 Ot 280.0 CHR BLOOD LOSS ANEMIA 01/08/2011 Ot 585.3 CHRONIC KIDNEY DISEASE, STAGE III (MODER 01/08/2011 Ot 786.05 SHORTNESS OF BREATH 01/08/2011 Ot 786.07 WHEEZING 01/08/2011 Ot 786.2 COUGH 01/08/2011 Ot V58.63 LONG-TERM( CURRENT)USE OF ANTIPLATELET/AN 01/08/2011 Ot V58.67 LONG-TERM ( CURRENT) USE OF INSULIN 01/08/2011 Ot V58.69 OTH MED,LT, CURRENT USE 02/05/2011 Ot 280.0 CHR BLOOD LOSS ANEMIA 02/05/2011 Ot 535.40 OTH SPECIFIED GASTRITIS,W/O MENTION OF H 03/21/2011 Ot 250.50 DIAB W OPHTHAL MANIFEST, TYPE II OR UNSP 03/21/2011 Ot 250.60 DIAB W NEURO MANIFEST, TYPE II OR UNSPEC 03/21/2011 Ot 272.1 PURE HYPERGLYCERIDEMIA 03/21/2011 Ot 280.9 IRON DEFIC ANEMIA NOS 03/21/2011 Ot 300.4 DYSTHYMIC DISORDER 03/21/2011 Ot 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 03/21/2011 Ot 362.01 DIABETIC RETINOPATHY NOS 03/21/2011 Ot 403.90 HYPTNSV CHR KID DIS, UNSPEC, W CHR KD ST 03/21/2011 Ot 414.01 CORONARY ATHEROSCLEROSIS OF [place] CORON 03/21/2011 Ot 427.31 ATRIAL FIBRILLATION 03/21/2011 Ot 433.10 CAROTID ARTERY OCCLUSION W O CEREBRAL IN 03/21/2011 Ot 496 CHR AIRWAY OBSTRUCT NEC 03/21/2011 Ot 535.51 UNSPEC GASTRITIS GASTRODUODENITIS, W/ 03/21/2011 Ot 585.3 CHRONIC KIDNEY DISEASE, STAGE III (MODER 03/21/2011 Ot 794.30 ABN CARDIOVASC STUDY NOS 03/21/2011 Ot 996.72 OTH COMPLICATIONS DUE TO OT CARD DEVICE 03/21/2011 Ot V12.71 PERSONAL HISTORY OF PEPTIC ULCER DISEASE 03/21/2011 Ot V45.82 PERCUTANEOUS TRANSLUM CORON ANGIOPLASTY 03/21/2011 Ot V46.2 SUPPLEMENTAL OXYGEN 03/21/2011 Ot V58.63 LONG-TERM( CURRENT)USE OF ANTIPLATELET/AN 03/21/2011 Ot V58.65 LONG-TERM( CURRENT)USE OF STEROIDS 03/21/2011 Ot V58.66 LONG-TERM ( CURRENT) USE OF ASPIRIN 03/21/2011 Ot V58.67 LONG-TERM ( CURRENT) USE OF INSULIN 03/21/2011 Ot V58.69 OTH MED,LT, CURRENT USE 03/26/2011 Ot 250.00 DIAB ЮЛИЯ WO COMPL, TYPE II OR UNSPEC TY 03/26/2011 Ot 272.4 HYPERLIPIDEMIA NEC/NOS 03/26/2011 Ot 285.29 ANEMIA OF OTHER CHRONIC DISEASE 03/26/2011 Ot 401.9 HYPERTENSION NOS 03/26/2011 Ot 414.01 CORONARY ATHEROSCLEROSIS OF [place] CORON 03/26/2011 Ot 433.10 CAROTID ARTERY OCCLUSION W O CEREBRAL IN 03/26/2011 Ot 496 CHR AIRWAY OBSTRUCT NEC 03/26/2011 Ot 786.50 CHEST PAIN NOS 03/26/2011 Ot V45.82 PERCUTANEOUS TRANSLUM CORON ANGIOPLASTY 03/26/2011 Ot V58.63 LONG-TERM( CURRENT)USE OF ANTIPLATELET/AN 03/26/2011 Ot V58.67 LONG-TERM ( CURRENT) USE OF INSULIN 03/26/2011 Ot V58.69 OTH MED,LT, CURRENT USE 04/09/2011 Ot 244.8 ACQUIRED HYPOTHYROID NEC 04/09/2011 Ot 250.02 DIAB ЮЛИЯ WO COMPL, TYPE II OR UNSPEC TY 04/09/2011 Ot 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 04/09/2011 Ot 272.4 HYPERLIPIDEMIA NEC/NOS 04/09/2011 Ot 280.0 CHR BLOOD LOSS ANEMIA 04/09/2011 Ot 585.3 CHRONIC KIDNEY DISEASE, STAGE III (MODER 04/09/2011 Ot V58.63 LONG-TERM( CURRENT)USE OF ANTIPLATELET/AN 04/09/2011 Ot V58.67 LONG-TERM ( CURRENT) USE OF INSULIN 04/09/2011 Ot V58.69 OTH MED,LT, CURRENT USE 05/01/2011 Ot 250.00 DIAB ЮЛИЯ WO COMPL, TYPE II OR UNSPEC TY 05/01/2011 Ot 272.4 HYPERLIPIDEMIA NEC/NOS 05/01/2011 Ot 250.00 DIAB ЮЛИЯ WO COMPL, TYPE II OR UNSPEC TY 05/01/2011 Ot 272.4 HYPERLIPIDEMIA NEC/NOS 05/01/2011 Ot 285.9 ANEMIA NOS 05/01/2011 Ot 401.9 HYPERTENSION NOS 05/01/2011 Ot 414.01 CORONARY ATHEROSCLEROSIS OF [place] CORON 05/01/2011 Ot 496 CHR AIRWAY OBSTRUCT NEC 05/01/2011 Ot 715.90 OSTEOARTHROS NOS-UNSPEC 05/01/2011 Ot 786.50 CHEST PAIN NOS 05/01/2011 Ot V45.82 PERCUTANEOUS TRANSLUM CORON ANGIOPLASTY 05/01/2011 Ot V46.2 SUPPLEMENTAL OXYGEN 05/01/2011 Ot V58.63 LONG-TERM( CURRENT)USE OF ANTIPLATELET/AN 05/01/2011 Ot V58.66 LONG-TERM ( CURRENT) USE OF ASPIRIN 05/01/2011 Ot V58.67 LONG-TERM ( CURRENT) USE OF INSULIN 05/01/2011 Ot V58.69 OTH MED,LT, CURRENT USE 07/09/2011 Ot 244.8 ACQUIRED HYPOTHYROID NEC 07/09/2011 Ot 250.02 DIAB ЮЛИЯ WO COMPL, TYPE II OR UNSPEC TY 07/09/2011 Ot 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 07/09/2011 Ot 272.4 HYPERLIPIDEMIA NEC/NOS 07/09/2011 Ot 280.0 CHR BLOOD LOSS ANEMIA 07/09/2011 Ot 585.3 CHRONIC KIDNEY DISEASE, STAGE III (MODER 07/09/2011 Ot V58.63 LONG-TERM( CURRENT)USE OF ANTIPLATELET/AN 07/09/2011 Ot V58.67 LONG-TERM ( CURRENT) USE OF INSULIN 07/09/2011 Ot V58.69 OTH MED,LT, CURRENT USE 10/09/2011 Ot 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 10/09/2011 Ot 280.0 CHR BLOOD LOSS ANEMIA 10/09/2011 Ot 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 10/09/2011 Ot 414.00 CORON ATHEROSCLER NOS TYPE VESSEL, NATIV 10/09/2011 Ot 585.3 CHRONIC KIDNEY DISEASE, STAGE III (MODER 10/09/2011 Ot V58.69 OTH MED,LT, CURRENT USE 01/08/2012 Ot 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 01/08/2012 Ot 280.0 CHR BLOOD LOSS ANEMIA 01/08/2012 Ot 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 01/08/2012 Ot 414.00 CORON ATHEROSCLER NOS TYPE VESSEL, NATIV 01/08/2012 Ot 585.3 CHRONIC KIDNEY DISEASE, STAGE III (MODER 01/08/2012 Ot V58.69 OTH MED,LT, CURRENT USE 04/08/2012 Ot 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 04/08/2012 Ot 280.0 CHR BLOOD LOSS ANEMIA 04/08/2012 Ot 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 04/08/2012 Ot 414.00 CORON ATHEROSCLER NOS TYPE VESSEL, NATIV 04/08/2012 Ot 585.3 CHRONIC KIDNEY DISEASE, STAGE III (MODER 04/08/2012 Ot V58.69 OTH MED,LT, CURRENT USE 07/08/2012 Ot 280.0 CHR BLOOD LOSS ANEMIA 07/08/2012 Ot 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 07/08/2012 Ot 414.00 CORON ATHEROSCLER NOS TYPE VESSEL, NATIV 07/08/2012 Ot 585.3 CHRONIC KIDNEY DISEASE, STAGE III (MODER 07/08/2012 Ot 787.91 DIARRHEA 07/08/2012 Ot V58.63 LONG-TERM( CURRENT)USE OF ANTIPLATELET/AN 07/08/2012 Ot V58.67 LONG-TERM ( CURRENT) USE OF INSULIN 07/08/2012 Ot V58.69 OTH MED,LT, CURRENT USE 07/28/2012 Ot 787.91 DIARRHEA 07/29/2012 Ot 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 07/29/2012 Ot 280.0 CHR BLOOD LOSS ANEMIA 07/29/2012 Ot 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 07/29/2012 Ot 414.00 CORON ATHEROSCLER NOS TYPE VESSEL, NATIV 07/29/2012 Ot 585.3 CHRONIC KIDNEY DISEASE, STAGE III (MODER 07/29/2012 Ot V58.69 OTH MED,LT, CURRENT USE 09/05/2012 Ot 250.02 DIAB ЮЛИЯ WO COMPL, TYPE II OR UNSPEC TY 09/05/2012 Ot 272.4 HYPERLIPIDEMIA NEC/NOS 09/05/2012 Ot 276.1 HYPOSMOLALITY 09/05/2012 Ot 285.29 ANEMIA OF OTHER CHRONIC DISEASE 09/05/2012 Ot 300.00 ANXIETY STATE NOS 09/05/2012 Ot 403.00 HYPTNSV CHR KID DIS, MALIGN, W CHR KD ST 09/05/2012 Ot 414.01 CORONARY ATHEROSCLEROSIS OF [place] CORON 09/05/2012 Ot 458.0 ORTHOSTATIC HYPOTENSION 09/05/2012 Ot 496 CHR AIRWAY OBSTRUCT NEC 09/05/2012 Ot 585.3 CHRONIC KIDNEY DISEASE, STAGE III (MODER 09/05/2012 Ot 715.90 OSTEOARTHROS NOS-UNSPEC 09/05/2012 Ot V03.82 PROPHYLACTIC VACC AGAINST STREPTOCOCCUS 09/05/2012 Ot V45.82 PERCUTANEOUS TRANSLUM CORON ANGIOPLASTY 09/12/2012 Ot 812.40 FX LOWER HUMERUS NOS-CL 09/12/2012 Ot 920 CONTUSION FACE/ SCALP/NCK 09/12/2012 Ot 959.2 SHLDR/UPPER ARM INJ NOS 09/12/2012 Ot E000.8 OTHER EXTERNAL CAUSE STATUS 09/12/2012 Ot E001.0 ACTIVITIES INVOLVING WALKING, MARCHING A 09/12/2012 Ot E849.6 ACCIDENT IN PUBLIC BLDG 09/12/2012 Ot E885.9 FALL FROM SLIPPING, TRIPPING, OR STUMBLI 09/26/2012 Ot 250.00 DIAB ЮЛИЯ WO COMPL, TYPE II OR UNSPEC TY 09/26/2012 Ot 812.41 SUPRCONDYL FX HUMERUS-CL 09/26/2012 Ot E000.8 OTHER EXTERNAL CAUSE STATUS 09/26/[address] NEC 09/26/2012 Ot E888.9 FALL NOS 10/28/2012 Ot 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 10/28/2012 Ot 585.3 CHRONIC KIDNEY DISEASE, STAGE III (MODER 10/28/2012 Ot V58.69 OTH MED,LT, CURRENT USE 01/27/2013 NORMA BOBAN N Ot 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 01/27/2013 DINORA GREEN N Ot 585.3 CHRONIC KIDNEY DISEASE, STAGE III (MODER 01/27/2013 NORMAJOSIEAN N Ot V58.69 OTH MED,LT,CURRENT USE 05/05/2013 NORMA, BOBAN N Ot 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 05/05/2013 NORMA BOBRACHELLE N Ot 585.3 CHRONIC KIDNEY DISEASE, STAGE III (MODER 05/05/2013 NORMA BOBAN N Ot V58.69 OTH MED,LT,CURRENT USE 08/11/2013 NORMA BOBRACHELLE N Ot 280.9 IRON DEFIC ANEMIA NOS 08/11/2013 NORMA BOBAN N Ot 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 08/11/2013 NORMA BOBRACHELLE N Ot 585.3 CHRONIC KIDNEY DISEASE, STAGE III (MODER 08/11/2013 NORMA BOBAN N Ot V58.69 OTH MED,LT,CURRENT USE 11/10/2013 NORMA BOBAN N Ot 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 11/10/2013 NORMA BOBAN N Ot 585.3 CHRONIC KIDNEY DISEASE, STAGE III (MODER 11/10/2013 NORMAJOSIEAN N Ot V58.69 OTH MED,LT,CURRENT USE 02/09/2014 NORMA BOBAN N Ot 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 02/09/2014 NORMA, BOBAN N Ot 585.3 CHRONIC KIDNEY DISEASE, STAGE III (MODER 02/09/2014 NORMADINORA N Ot V58.69 OTH MED,LT,CURRENT USE 05/11/2014 NORMADINORA N Ot 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 05/11/2014 DINORA GREEN N Ot 585.3 CHRONIC KIDNEY DISEASE, STAGE III (MODER 05/11/2014 NORMADINORA N Ot V58.69 OTH MED,LT,CURRENT USE 06/09/2014 NORMADINORA N Ot 285.21 06/09/2014 NORMADINORA N Ot 585.3 06/09/2014 NORMADINORA N Ot V58.69 06/15/2014 ANGEL FLOWERS JOINT MAKER MACHINE Ot 280.9 06/15/2014 ANGEL FLOWERS JOINT MAKER MACHINE Ot 285.21 06/15/2014 ANGEL FLOWERS JOINT MAKER MACHINE Ot 585.3 06/15/2014 ANGEL FLOWERS JOINT MAKER MACHINE Ot V58.69 07/01/2014 PATRICIA TY, JULIETTE J Ot 272.4 07/01/2014 PATRICIA TY, JULIETTE J Ot 401.9 07/01/2014 PATRICIA TY, JULIETTE J Ot 414.00 07/05/2014 PATRICIA TY, JULIETTE Infante Ot 272.4 07/05/2014 PATRICIA TY, JULIETTE J Ot 401.9 07/05/2014 PATRICIA TY, JULIETTE J Ot 414.00 07/18/2014 PATRICIA TY, JULIETTE Infante Ot 272.4 07/18/2014 PATRICIA TY, JULIETTE Infante Ot 401.9 07/18/2014 PATRICIA TY, JULIETTE J Ot 414.00 07/18/2014 PATRICIA TY, JULIETTE J Ot 272.4 07/18/2014 PATRICIA TY, JULIETTE J Ot 401.9 07/18/2014 PATRICIA TY, JULIETTE J Ot 414.00 07/20/2014 GALA TY, FRANKLIN Kellogg Ot 787.02 NAUSEA ALONE 07/27/2014 DINORA GREEN N Ot 285.21 07/27/2014 NORMADINORA REYES N Ot 585.3 07/27/2014 NORMADINORA REYES N Ot V58.69 08/01/2014 AR ALLEN DO Ot 496 08/01/2014 AR ALLEN DO Ot 786.05 08/01/2014 ALEJANDRO AR HUNT Ot 786.2 08/01/2014 NORMA, BOBAN N Ot 285.21 08/01/2014 NORMA, BOBAN N Ot 585.3 08/01/2014 NORMA, BOBAN N Ot V58.69 08/01/2014 FLOWERS MIUGELAH S JOINT MAKER MACHINE Ot 280.9 08/01/2014 FLOWERS, HILAH S JOINT MAKER MACHINE Ot 285.21 08/01/2014 FLOWERS, HILAH S JOINT MAKER MACHINE Ot 585.3 08/01/2014 FLOWERS, HILAH S JOINT MAKER MACHINE Ot 780.60 08/01/2014 FLOWERS, HILAH S JOINT MAKER MACHINE Ot 787.01 08/01/2014 FLOWERS, HILAH S JOINT MAKER MACHINE Ot 787.91 08/01/2014 FLOWERS, HILAH S JOINT MAKER MACHINE Ot V58.69 08/02/2014 ALEJANDRO HUNT AR M Ot 496 08/02/2014 ALEJANDRO HUNT AR M Ot 786.05 08/02/2014 ALEJANDRO HUNT AR Benitez Ot 786.2 08/03/2014 FLOWERS, MIGUELAH S JOINT MAKER MACHINE Ot 280.9 08/03/2014 FLOWERS, HILAH S JOINT MAKER MACHINE Ot 285.21 08/03/2014 FLOWERS, HILAH S JOINT MAKER MACHINE Ot 585.3 08/03/2014 FLOWERS, HILAH S JOINT MAKER MACHINE Ot 780.60 08/03/2014 FLOWERS, HILAH S JOINT MAKER MACHINE Ot 787.01 08/03/2014 FLOWERS, HILAH S JOINT MAKER MACHINE Ot 787.91 08/03/2014 FLOWERS HILAH S JOINT MAKER MACHINE Ot V58.69 08/10/2014 NORMA BOBAN N Ot 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 08/10/2014 NORMA, BOBAN N Ot 585.3 CHRONIC KIDNEY DISEASE, STAGE III (MODER 08/10/2014 NORMA, BOBAN N Ot V58.69 OTH MED,LT,CURRENT USE 08/11/2014 NORMA, BOBAN N Ot 285.21 08/11/2014 NORMA, BOBAN N Ot 585.3 08/11/2014 NORMA, BOBAN N Ot V58.69 08/11/2014 NORMA, BOBAN N Ot 285.21 08/11/2014 DINORA GREEN N Ot 585.3 08/11/2014 DINORA GREEN N Ot V58.69 08/12/2014 DINORA GREEN N Ot 285.21 08/12/2014 DINORA GREEN N Ot 585.3 08/12/2014 DINORA GREEN Casi Ot V58.69 08/25/2014 AR ALLEN DO Ot 496 08/25/2014 AR ALLEN DO Ot 786.05 08/25/2014 AR ALLEN DO Ot 786.2 08/26/2014 AR ALLEN DO Ot 496 08/26/2014 AR ALLEN DO Ot 786.05 08/26/2014 AR ALLEN DO Ot 786.2 09/06/2014 FELICITA CEDEÑO MD Ot V76.12 09/12/2014 FELICITA CEDEÑO MD Ot V76.12 09/21/2014 MIRTA TORRES APRN Ot 786.2 09/26/2014 AR ALLEN DO Ot 496 CHR AIRWAY OBSTRUCT NEC 09/26/2014 AR ALLEN DO Ot 786.05 SHORTNESS OF BREATH 09/26/2014 AR ALLEN DO Ot 786.2 COUGH 10/20/2014 DINORA GREEN Ot 285.21 10/20/2014 JOSIE GREENRACHELLE Lance Ot 585.3 10/20/2014 DINORA GREEN Casi Ot V58.69 10/21/2014 JOSIE GREENRACHELLE Lance Ot 285.21 10/21/2014 NORMA DINORA Lance Ot 585.3 10/21/2014 NORMA DINORA Lance Ot V58.69 10/21/2014 Ot 401.9 10/21/2014 Ot 414.00 10/21/2014 Ot 433.10 10/21/2014 Ot 496 10/24/2014 Ot 244.9 10/25/2014 Ot 496 10/25/2014 Ot 786.05 10/25/2014 Ot 786.2 10/25/2014 Ot 401.9 10/25/2014 Ot 414.00 10/25/2014 Ot 433.10 10/25/2014 Ot 496 10/25/2014 Ot 496 10/25/2014 Ot 786.05 10/25/2014 Ot 786.2 10/27/2014 Ot 244.9 11/01/2014 Ot 244.9 11/05/2014 AR ALLEN DO Ot 327.23 OBSTRUCTIVE SLEEP APNEA (ADULT) (PEDIATR 11/05/2014 AR ALLEN DO Ot 327.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 11/09/2014 NORMA, BOBAN N Ot 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 11/09/2014 NORMA, BOBAN N Ot 585.3 CHRONIC KIDNEY DISEASE, STAGE III (MODER 11/09/2014 NORMA, BOBAN N Ot V58.69 OTH MED,LT,CURRENT USE 11/10/2014 NORMA, BOBAN N Ot 285.21 11/10/2014 NORMA, BOBAN N Ot 585.3 11/10/2014 NORMA, BOBAN N Ot V58.69 11/10/2014 NORMA, BOBAN N Ot 285.21 11/10/2014 NORMA, BOBAN N Ot 585.3 11/10/2014 NORMA, BOBAN N Ot V58.69 11/10/2014 NORMA, BOBAN N Ot 285.21 11/10/2014 NORMA, BOBAN N Ot 585.3 11/10/2014 NORMA, BOBAN N Ot V58.69 11/11/2014 NORMA, BOBAN N Ot 285.21 11/11/2014 NORMA, BOBAN N Ot 585.3 11/11/2014 NORMA, BOBAN N Ot V58.69 11/29/2014 ANGEL FLOWERS JOINT MAKER MACHINE Ot 280.9 11/29/2014 ANGEL FLOWERS JOINT MAKER MACHINE Ot 285.21 11/29/2014 ANGEL FLOWERS JOINT MAKER MACHINE Ot 585.4 11/29/2014 ANGEL FLOWERS JOINT MAKER MACHINE Ot 793.11 11/29/2014 ANGEL FLOWERS JOINT MAKER MACHINE Ot V58.69 01/02/2015 AR ALLEN DO Ot 255.9 01/02/2015 AR ALLEN DO Ot 486 01/02/2015 AR ALLEN DO Ot 496 01/02/2015 AR ALLEN DO Ot 562.10 01/02/2015 AR ALLEN DO Ot 786.05 01/02/2015 AR ALLEN DO Ot 786.2 01/02/2015 ALEAJNDRO AR HUNT Ot 793.11 01/06/2015 FLOWERSANGEL Garza JOINT MAKER MACHINE Ot 486 01/06/2015 ANGEL FLOWERS JOINT MAKER MACHINE Ot 496 01/06/2015 ANGEL FLOWERS JOINT MAKER MACHINE Ot 784.0 01/06/2015 ANGEL FLOWERS JOINT MAKER MACHINE Ot 786.05 01/06/2015 ANGEL FLOWERS JOINT MAKER MACHINE Ot 786.2 01/06/2015 ANGEL FLOWERS JOINT MAKER MACHINE Ot 280.9 01/06/2015 ANGEL FLOWERS JOINT MAKER MACHINE Ot 285.21 01/06/2015 ANGEL FLOWERS JOINT MAKER MACHINE Ot 585.4 01/06/2015 FLOWERSANGEL Garza JOINT MAKER MACHINE Ot 793.11 01/06/2015 ANGEL FLOWERS JOINT MAKER MACHINE Ot V58.69 01/18/2015 AR ALLEN DO M Ot 255.9 01/18/2015 AR ALLEN DO M Ot 486 01/18/2015 AR ALLEN DO M Ot 496 01/18/2015 AR ALLEN DO M Ot 562.10 01/18/2015 AR ALLEN DO M Ot 786.05 01/18/2015 ALEJANDRO HUNT AR M Ot 786.2 01/18/2015 ALEJANDRO HUNT AR M Ot 793.11 01/20/2015 FLOWERSANGEL Garza JOINT MAKER MACHINE Ot 486 01/20/2015 FLOWERSANGEL Garza JOINT MAKER MACHINE Ot 496 01/20/2015 FLOWERSANGEL Garza JOINT MAKER MACHINE Ot 784.0 01/20/2015 FLOWERSANGEL Garza JOINT MAKER MACHINE Ot 786.05 01/20/2015 FLOWERSANGEL Garza JOINT MAKER MACHINE Ot 786.2 01/21/2015 AR ALLEN DO M Ot 255.9 01/21/2015 AR ALLEN DO M Ot 486 01/21/2015 AR ALLEN DO M Ot 496 01/21/2015 AR ALLEN DO M Ot 562.10 01/21/2015 AR ALLEN DO M Ot 786.05 01/21/2015 ALEJANDRO HUNT AR M Ot 786.2 01/21/2015 AR ALLEN DO M Ot 793.11 01/31/2015 Ot 786.2 01/31/2015 Ot 397.0 01/31/2015 Ot 401.9 01/31/2015 Ot 414.01 01/31/2015 Ot 424.0 01/31/2015 Ot 429.3 01/31/2015 Ot 272.4 01/31/2015 Ot 401.9 01/31/2015 Ot 414.01 01/31/2015 Ot 433.10 01/31/2015 Ot 244.8 01/31/2015 Ot 250.02 01/31/2015 Ot 272.4 01/31/2015 Ot 715.35 01/31/2015 Ot 721.3 01/31/2015 Ot 250.00 01/31/2015 Ot 959.6 01/31/2015 Ot E000.8 01/31/2015 Ot E849.0 01/31/2015 Ot E888.9 01/31/2015 Ot 270.4 01/31/2015 Ot 280.0 01/31/2015 Ot 585.3 01/31/2015 Ot V58.63 01/31/2015 Ot V58.67 01/31/2015 Ot V58.69 01/31/2015 Ot 285.9 01/31/2015 Ot 786.05 01/31/2015 Ot 786.07 01/31/2015 Ot 786.2 01/31/2015 Ot 285.9 01/31/2015 Ot 244.8 01/31/2015 Ot 250.00 01/31/2015 Ot 401.1 01/31/2015 Ot 272.4 01/31/2015 Ot 401.9 01/31/2015 Ot 414.01 01/31/2015 Ot V58.63 01/31/2015 Ot V58.66 01/31/2015 Ot V58.69 01/31/2015 Ot 273.4 01/31/2015 Ot 397.0 01/31/2015 Ot 401.9 01/31/2015 Ot 424.0 01/31/2015 Ot 272.4 01/31/2015 Ot 401.9 01/31/2015 Ot 414.00 01/31/2015 Ot 272.4 01/31/2015 Ot 401.9 01/31/2015 Ot 414.01 01/31/2015 Ot 786.50 01/31/2015 Ot 791.9 01/31/2015 Ot V72.63 01/31/2015 Ot V72.81 01/31/2015 Ot V76.12 01/31/2015 Ot 786.09 01/31/2015 Ot 250.00 01/31/2015 Ot 250.00 01/31/2015 Ot 401.1 01/31/2015 Ot 272.4 01/31/2015 Ot 401.9 01/31/2015 Ot 414.00 01/31/2015 Ot 996.43 01/31/2015 Ot V43.65 01/31/2015 Ot 721.3 01/31/2015 Ot 738.4 01/31/2015 Ot 250.00 01/31/2015 Ot 401.1 01/31/2015 Ot 787.91 01/31/2015 Ot 787.91 01/31/2015 Ot 244.9 01/31/2015 Ot 250.00 01/31/2015 Ot 272.4 01/31/2015 Ot 401.1 01/31/2015 Ot V49.81 01/31/2015 Ot V82.81 01/31/2015 Ot 280.0 01/31/2015 Ot 285.21 01/31/2015 Ot 465.9 01/31/2015 Ot 585.3 01/31/2015 Ot 787.91 01/31/2015 Ot V58.69 01/31/2015 Ot 793.82 01/31/2015 Ot V76.12 01/31/2015 Ot 793.89 01/31/2015 Ot 272.4 01/31/2015 Ot 414.01 01/31/2015 Ot 812.40 01/31/2015 Ot E000.8 01/31/2015 Ot E001.0 01/31/2015 Ot E849.6 01/31/2015 Ot E885.9 01/31/2015 Ot V72.84 01/31/2015 ANGEL FLOWERSP Ot 793.80 01/31/2015 ANGEL FLOWERS Ot V67.9 01/31/2015 Ot 250.00 01/31/2015 Ot 272.4 01/31/2015 Ot 401.9 01/31/2015 ANGEL FLOWERSP Ot 280.9 01/31/2015 ANGEL FLOWERSP Ot 285.21 01/31/2015 ANGEL FLOWERSP Ot 414.00 01/31/2015 ANGEL FLOWERSP Ot 585.3 01/31/2015 ANGEL FLOWERS JOINT MAKER MACHINE Ot 599.0 01/31/2015 FLOWERSANGEL Garza JOINT MAKER MACHINE Ot V58.69 01/31/2015 FLOWERSANGEL Garza S JOINT MAKER MACHINE Ot 280.0 01/31/2015 FLOWERSANGEL Garza S JOINT MAKER MACHINE Ot 285.21 01/31/2015 FLOWERSANGEL Garza JOINT MAKER MACHINE Ot 414.00 01/31/2015 FLOWERSANGEL Garza S JOINT MAKER MACHINE Ot 585.3 01/31/2015 ANGEL FLOWERS JOINT MAKER MACHINE Ot V58.69 01/31/2015 DINORA GREEN Casi Ot 793.89 01/31/2015 CRISTIANE PA, JANA Traylor Ot 250.00 01/31/2015 CRISTIANE PA, JANA Traylor Ot 272.4 01/31/2015 CRISTIANE PA, JANA K Ot 401.9 01/31/2015 CRISTIANE PA, JANA Traylor Ot 414.00 01/31/2015 CRISTIANE PA, JANA Traylor Ot 496 01/31/2015 CRISTIANE PA, JANA K Ot 780.4 01/31/2015 CRISTIANE PA, JANA K Ot 785.1 01/31/2015 EZ TY, TAPAN P Ot 473.9 01/31/2015 SAURABH TY, PAIGE Benitez Ot 786.07 01/31/2015 SAURABH TY, PAIGE Benitez Ot 786.2 01/31/2015 PATRICIA TY, JULIETTE Infante Ot 272.4 01/31/2015 PATRICIA TY, JULIETTE Infante Ot 414.01 01/31/2015 FLOWERSANGEL Garza JOINT MAKER MACHINE Ot 285.21 01/31/2015 FLOWERSANGEL Garza S JOINT MAKER MACHINE Ot 585.3 01/31/2015 FLOWERSANGEL Garza JOINT MAKER MACHINE Ot V58.69 01/31/2015 FLOWERSANGEL Garza S JOINT MAKER MACHINE Ot 429.3 01/31/2015 FLOWERSANGEL S JOINT MAKER MACHINE Ot 786.09 01/31/2015 FLOWERSANGEL S JOINT MAKER MACHINE Ot 786.2 01/31/2015 FLOWERSANGEL S JOINT MAKER MACHINE Ot 280.9 01/31/2015 FLOWERSANGEL S JOINT MAKER MACHINE Ot 285.21 01/31/2015 FLOWERSANGEL Garza S JOINT MAKER MACHINE Ot 585.3 01/31/2015 ANGEL FLOWERS JOINT MAKER MACHINE Ot V58.69 01/31/2015 ALTAGRACIA TY, DELILAH Borges Ot 250.92 01/31/2015 ALTAGRACIA TY, DELILAH Borges Ot 272.4 01/31/2015 DELILAH FRIAS MD Ot 355.9 01/31/2015 FLOWERSANGEL Garza S JOINT MAKER MACHINE Ot 280.9 01/31/2015 FLOWERSANGEL Garza S JOINT MAKER MACHINE Ot 285.21 01/31/2015 FLOWERSANGEL Garza S JOINT MAKER MACHINE Ot 585.3 01/31/2015 FLOWERSANGEL Garza S JOINT MAKER MACHINE Ot V58.69 01/31/2015 FLOWERSANGEL Garza S JOINT MAKER MACHINE Ot 280.9 01/31/2015 FLOWERSANGEL Garza S JOINT MAKER MACHINE Ot 285.21 01/31/2015 ANGEL FLOWERS S JOINT MAKER MACHINE Ot 585.3 01/31/2015 ANGEL FLOWERS S JOINT MAKER MACHINE Ot V58.69 01/31/2015 LEXIE GONZALES JOINT MAKER MACHINE Ot 496 01/31/2015 CHRISTIAN LEXIE M JOINT MAKER MACHINE Ot 786.39 01/31/2015 LEXIE GONZALES JOINT MAKER MACHINE Ot 786.2 01/31/2015 LEXIE GONZALES JOINT MAKER MACHINE Ot 786.30 01/31/2015 LEXIE GONZALES JOINT MAKER MACHINE Ot 793.11 01/31/2015 LEXIE GONZALES JOINT MAKER MACHINE Ot 786.39 01/31/2015 PATRICIA TY, JULIETTE Infante Ot 272.4 01/31/2015 PATRICIA TY, JULIETTE Infante Ot 401.9 01/31/2015 PATRICIA TY, JULIETTE Infante Ot 414.00 01/31/2015 PATRICIA TY, JULIETTE Infante Ot 272.4 01/31/2015 PATRICIA TY, JULIETTE Infante Ot 401.9 01/31/2015 PATRICIA TY, JULIETTE Infante Ot 414.00 01/31/2015 Ot 496 01/31/2015 Ot 786.05 01/31/2015 Ot 786.2 01/31/2015 AR ALLEN DO Ot 496 01/31/2015 AR ALLEN DO Ot 786.05 01/31/2015 AR ALLEN DO Ot 786.2 01/31/2015 ANGEL FLOWERS S JOINT MAKER MACHINE Ot 280.9 01/31/2015 FLOWERSANGEL Garza JOINT MAKER MACHINE Ot 285.21 01/31/2015 FLOWERSANGEL Garza JOINT MAKER MACHINE Ot 585.3 01/31/2015 FLOWERSANGEL Garza JOINT MAKER MACHINE Ot 780.60 01/31/2015 FLOWERSANGEL Garza JOINT MAKER MACHINE Ot 787.01 01/31/2015 FLOWERSANGEL JOINT MAKER MACHINE Ot 787.91 01/31/2015 FLOWERSANGEL JOINT MAKER MACHINE Ot V58.69 01/31/2015 FELICITA CEDEÑO MD Ot V76.12 01/31/2015 MIRTA TORRES APRN Ot 786.2 01/31/2015 Ot 280.9 01/31/2015 Ot 285.21 01/31/2015 Ot 585.4 01/31/2015 Ot 599.0 01/31/2015 Ot 787.91 01/31/2015 Ot 793.11 01/31/2015 Ot V58.69 01/31/2015 Ot 496 01/31/2015 Ot 786.05 01/31/2015 Ot 786.2 01/31/2015 AR ALLEN DO Ot 255.9 01/31/2015 AR ALLEN DO Ot 486 01/31/2015 AR ALLEN DO Ot 496 01/31/2015 AR ALLEN DO Ot 562.10 01/31/2015 AR ALLEN DO Ot 786.05 01/31/2015 AR ALLEN DO Ot 786.2 01/31/2015 RA ALLEN DO Ot 793.11 01/31/2015 Ot 401.9 01/31/2015 Ot 414.00 01/31/2015 Ot 433.10 01/31/2015 Ot 496 01/31/2015 Ot 244.9 01/31/2015 KRISTIEANGEL JOINT MAKER MACHINE Ot 280.9 01/31/2015 FLOWERSANGEL JOINT MAKER MACHINE Ot 285.21 01/31/2015 FLOWERSANGEL JOINT MAKER MACHINE Ot 585.4 01/31/2015 FLOWERSANGEL JOINT MAKER MACHINE Ot 793.11 01/31/2015 KRISTIE ANGEL Garza JOINT MAKER MACHINE Ot V58.69 01/31/2015 DINORA GREEN Ot 285.21 01/31/2015 DINORA GREEN N Ot 585.3 01/31/2015 DINORA GREEN N Ot V58.69 01/31/2015 ANGEL FLOWERS JOINT MAKER MACHINE Ot 285.21 01/31/2015 ANGEL FLOWERS JOINT MAKER MACHINE Ot 585.4 01/31/2015 ANGEL FLOWERS JOINT MAKER MACHINE Ot V58.69 01/31/2015 FLOWERSANGEL Garza S JOINT MAKER MACHINE Ot 486 01/31/2015 ANGEL FLOWERS S JOINT MAKER MACHINE Ot 496 01/31/2015 ANGEL FLOWERS S JOINT MAKER MACHINE Ot 784.0 01/31/2015 ANGEL FLOWERS S JOINT MAKER MACHINE Ot 786.05 01/31/2015 FLOWERSANGEL Garza JOINT MAKER MACHINE Ot 786.2 01/31/2015 AR ALLEN DO Ot 486 01/31/2015 AR ALLEN DO Ot 496 01/31/2015 AR ALLEN DO Ot 786.05 01/31/2015 AR ALLEN DO Ot 786.2 02/02/2015 Ot 787.91 02/02/2015 Ot 496 02/02/2015 Ot 786.05 02/02/2015 Ot 786.2 02/08/2015 DINORA GREEN Casi Ot 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 02/08/2015 NORMAJOSIE REYESRACHELLE Lance Ot 585.3 CHRONIC KIDNEY DISEASE, STAGE III (MODER 02/08/2015 DINORA GREEN Casi Ot V58.69 OTH MED,LT,CURRENT USE 02/08/2015 FELICITA CEDEÑO MD Ot 038.9 SEPTICEMIA NOS 02/08/2015 FELICITA CEDEÑO MD Ot 242.90 THYROTOX NOS NO CRISIS 02/08/2015 FELICITA CEDEÑO MD Ot 250.02 DIAB ЮЛИЯ WO COMPL, TYPE II OR UNSPEC TY 02/08/2015 FELICITA CEDEÑO MD Ot 263.1 MALNUTRITION MILD DEGREE 02/08/2015 FELICITA CEDEÑO MD Ot 272.4 HYPERLIPIDEMIA NEC/NOS 02/08/2015 FELICITA CEDEÑO MD Ot 276.69 OTHER FLUID OVERLOAD 02/08/2015 FELICITA CEDEÑO MD Ot 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 02/08/2015 FELICITA CEDEÑO MD Ot 311 DEPRESSIVE DISORDER NEC 02/08/2015 FELICITA CEDEÑO MD Ot 327.23 OBSTRUCTIVE SLEEP APNEA (ADULT) (PEDIATR 02/08/2015 FELICITA CEDEÑO MD Ot 348.31 METABOLIC ENCEPHALOPATHY 02/08/2015 FELICITA CEDEÑO MD Ot 356.9 IDIO PERIPH NEURPTHY NOS 02/08/2015 FELICITA CEDEÑO MD Ot 403.90 HYPTNSV CHR KID DIS, UNSPEC, W CHR KD ST 02/08/2015 FELICITA CEDEÑO MD Ot 414.01 CORONARY ATHEROSCLEROSIS OF [place] CORON 02/08/2015 FELICITA CEDEÑO MD Ot 477.9 ALLERGIC RHINITIS NOS 02/08/2015 FELICITA CEDEÑO MD Ot 492.8 EMPHYSEMA NEC 02/08/2015 FELICITA CEDEÑO MD Ot 514 PULM CONGEST/HYPOSTASIS 02/08/2015 FELICITA CEDEÑO MD Ot 518.81 ACUTE RESPIRATORY FAILURE 02/08/2015 FELICITA CEDEÑO MD Ot 530.81 ESOPHAGEAL REFLUX 02/08/2015 FELICITA CEDEÑO MD Ot 574.10 CHOLELITH W CHOLECYS NEC 02/08/2015 FELICITA CEDEÑO MD Ot 584.9 ACUTE RENAL FAILURE, UNSPECIFIED 02/08/2015 FELICITA CEDEÑO MD Ot 585.9 CHRONIC KIDNEY DISEASE, UNSPECIFIED 02/08/2015 FELICITA CEDEÑO MD Ot 599.0 URIN TRACT INFECTION NOS 02/08/2015 FELICITA CEDEÑO MD Ot 625.6 FEM STRESS INCONTINENCE 02/08/2015 FELICITA CEDEÑO MD Ot 787.20 DYSPHAGIA, UNSPECIFIED 02/08/2015 FELICITA CEDEÑO MD Ot 924.8 MULTIPLE CONTUSIONS NEC 02/08/2015 FELICITA CEDEÑO MD Ot 995.92 SEVERE SEPSIS 02/08/2015 FELICITA CEDEÑO MD Ot E849.0 ACCIDENT IN HOME 02/08/2015 FELICITA CEDEÑO MD Ot E884.4 FALL FROM BED 02/08/2015 FELICITA CEDEÑO MD Ot V46.2 SUPPLEMENTAL OXYGEN 02/08/2015 FELICITA CEDEÑO MD Ot V58.67 LONG-TERM (CURRENT) USE OF INSULIN 02/09/2015 ANGEL FLOWERS JOINT MAKER MACHINE Ot 486 02/09/2015 ANGEL FLOWERS JOINT MAKER MACHINE Ot 496 02/09/2015 ANGEL FLOWERS JOINT MAKER MACHINE Ot 784.0 02/09/2015 ANGEL FLOWERS JOINT MAKER MACHINE Ot 786.05 02/09/2015 ANGEL FLOWERS JOINT MAKER MACHINE Ot 786.2 02/14/2015 MIKE TY LINDA E Ot 244.9 HYPOTHYROIDISM NOS 02/14/2015 MIKE TY LINDA E Ot 250.60 DIAB W NEURO MANIFEST, TYPE II OR UNSPEC 02/14/2015 BEN MCKEON MDIC E Ot 272.4 HYPERLIPIDEMIA NEC/NOS 02/14/2015 BEN MCKEON MDIC E Ot 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 02/14/2015 MIKE TY LINDA E Ot 311 DEPRESSIVE DISORDER NEC 02/14/2015 LINDA MCKEON MD E Ot 327.23 OBSTRUCTIVE SLEEP APNEA (ADULT) (PEDIATR 02/14/2015 BEN MCKEON MDIC E Ot 348.30 ENCEPHALOPATHY, UNSPECIFIED 02/14/2015 LINDA MCKEON MD E Ot 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 02/14/2015 LINDA MCKEON MD E Ot 403.90 HYPTNSV CHR KID DIS, UNSPEC, W CHR KD ST 02/14/2015 BEN MCKEON MDIC E Ot 414.01 CORONARY ATHEROSCLEROSIS OF [place] CORON 02/14/2015 BEN MCKEON MDIC E Ot 477.9 ALLERGIC RHINITIS NOS 02/14/2015 MIKE TY LINDA E Ot 496 CHR AIRWAY OBSTRUCT NEC 02/14/2015 MIKE TY LINDA E Ot 575.10 CHOLECYSTITIS, NOS 02/14/2015 MIKE TY LINDA E Ot 576.1 CHOLANGITIS 02/14/2015 BEN MCKEON MDIC E Ot 585.9 CHRONIC KIDNEY DISEASE, UNSPECIFIED 02/14/2015 MIKE TY LINDA E Ot 599.0 URIN TRACT INFECTION NOS 02/14/2015 BEN MCKEON MDIC E Ot 707.03 PRESSURE ULCER, LOWER BACK 02/14/2015 MIKE TY LINDA E Ot 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, STAGE II 02/14/2015 MIKE TY LINDA E Ot 780.79 OTH MALAISE FATIGUE 02/14/2015 BEN MCKEON MDIC E Ot V15.88 HISTORY OF FALL 02/14/2015 LINDA MCKEON MD E Ot V46.2 SUPPLEMENTAL OXYGEN 02/14/2015 MIKE TY LINDA E Ot V57.89 REHABILITATION PROC NEC 02/14/2015 MIKE TY LINDA E Ot V58.67 LONG-TERM (CURRENT) USE OF INSULIN 02/15/2015 ANGEL FLOWERS JOINT MAKER MACHINE Ot 486 02/15/2015 ANGEL FLOWERS JOINT MAKER MACHINE Ot 496 02/15/2015 ANGEL FLOWERS JOINT MAKER MACHINE Ot 784.0 02/15/2015 ANGEL FLOWERS S JOINT MAKER MACHINE Ot 786.05 02/15/2015 ANGEL FLOWERS S JOINT MAKER MACHINE Ot 786.2 02/16/2015 NORMA, BOBAN N Ot 285.21 02/16/2015 NORMA, BOBAN N Ot 585.3 02/16/2015 NORMA, BOBAN N Ot V58.69 02/16/2015 NORMA, BOBAN N Ot 285.21 02/16/2015 NORMA, BOBAN N Ot 585.3 02/16/2015 NORMA, BOBAN N Ot V58.69 02/17/2015 NORMA, BOBAN N Ot 285.21 02/17/2015 NORMA, BOBAN N Ot 585.3 02/17/2015 NORMA, BOBAN N Ot V58.69 02/24/2015 NORMA, BOBAN N Ot 285.21 02/24/2015 NORMA, BOBAN N Ot 585.3 02/24/2015 NORMA, BOBAN N Ot V58.69 02/24/2015 NORMA, BOBAN N Ot 285.21 02/24/2015 NORMA, BOBAN N Ot 585.3 02/24/2015 NORMA, BOBAN N Ot V58.69 03/15/2015 FLOWERSANGEL Garza S JOINT MAKER MACHINE Ot 280.0 03/15/2015 FLOWERSANGEL Garza S JOINT MAKER MACHINE Ot 285.21 03/15/2015 FLOWERSANGEL Garza S JOINT MAKER MACHINE Ot 585.3 03/15/2015 KRISTIE ANGEL S JOINT MAKER MACHINE Ot 599.0 03/15/2015 KRISTIE ANGEL S JOINT MAKER MACHINE Ot 793.11 03/15/2015 FLOWERSANGEL S JOINT MAKER MACHINE Ot V58.69 03/27/2015 FLOWERSANGEL S JOINT MAKER MACHINE Ot 280.0 03/27/2015 FLOWERS, ANGEL S JOINT MAKER MACHINE Ot 285.21 03/27/2015 KRISTIE ANGEL S JOINT MAKER MACHINE Ot 585.3 03/27/2015 KRISTIE ANGEL S JOINT MAKER MACHINE Ot 599.0 03/27/2015 FLOWERS, ANGEL S JOINT MAKER MACHINE Ot 793.11 03/27/2015 KRISTIE ANGEL S JOINT MAKER MACHINE Ot V58.69 04/05/2015 FLOWERSANGEL Garza S JOINT MAKER MACHINE Ot 280.0 04/05/2015 FLOWERSANGEL S JOINT MAKER MACHINE Ot 285.21 04/05/2015 FLOWERSANGEL S JOINT MAKER MACHINE Ot 585.3 04/05/2015 FLOWERSANGEL S JOINT MAKER MACHINE Ot 599.0 04/05/2015 FLOWERSANGEL S JOINT MAKER MACHINE Ot 793.11 04/05/2015 FLOWERSANGEL S JOINT MAKER MACHINE Ot V58.69 04/20/2015 FLOWERSANGEL S JOINT MAKER MACHINE Ot 280.0 04/20/2015 FLOWERSANGEL S JOINT MAKER MACHINE Ot 285.21 04/20/2015 FLOWERSANGEL S JOINT MAKER MACHINE Ot 585.3 04/20/2015 FLOWERSANGEL S JOINT MAKER MACHINE Ot 599.0 04/20/2015 FLOWERSANGEL S JOINT MAKER MACHINE Ot 793.11 04/20/2015 FLOWERSANGEL S JOINT MAKER MACHINE Ot V58.69 04/25/2015 FLOWERSANGEL S JOINT MAKER MACHINE Ot 280.0 04/25/2015 FLOWERSANGEL S JOINT MAKER MACHINE Ot 285.21 04/25/2015 FLOWERSANGEL S JOINT MAKER MACHINE Ot 585.3 04/25/2015 FLOWERSANGEL S JOINT MAKER MACHINE Ot 599.0 04/25/2015 FLOWERSANGEL Garza S JOINT MAKER MACHINE Ot 793.11 04/25/2015 ANGEL FLOWERS S JOINT MAKER MACHINE Ot V58.69 04/26/2015 DINORA GREEN Ot 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 04/26/2015 DINORA GREEN Ot 585.3 CHRONIC KIDNEY DISEASE, STAGE III (MODER 04/26/2015 DINORA GREEN Ot V58.69 OT MED,LT,CURRENT USE 04/28/2015 FLOWERSANGEL Garza S JOINT MAKER MACHINE Ot 280.0 04/28/2015 FLOWERSANGEL S JOINT MAKER MACHINE Ot 285.21 04/28/2015 FLOWERSANGEL S JOINT MAKER MACHINE Ot 585.3 04/28/2015 FLOWERSANGEL S JOINT MAKER MACHINE Ot 599.0 04/28/2015 FLOWERSANGEL S JOINT MAKER MACHINE Ot 793.11 04/28/2015 FLOWERS ANGEL S JOINT MAKER MACHINE Ot V58.69 05/02/2015 DINORA GREEN Ot 285.21 05/02/2015 NORMA, BOBAN N Ot 585.3 05/02/2015 NORMA, BOBAN N Ot V58.69 05/10/2015 PATRICIA TY, JULIETTE Infante Ot 272.4 05/10/2015 PATRICIA TY, JULIETTE Infante Ot 401.9 05/10/2015 PATRICIA TY, JULIETTE J Ot 414.9 05/10/2015 PATRICIA TY, JULIETTE J Ot 433.10 05/15/2015 PATRICIA TY, JULIETTE Infante Ot 272.4 05/15/2015 PATRICIA TY, JULIETTE Infante Ot 401.9 05/15/2015 PATRICIA TY, JULIETTE Infante Ot 414.9 05/15/2015 PATRICIA TY, JULIETTE Infante Ot 433.10 06/05/2015 GALA TY, FELICITA Borges Ot E11.9 06/05/2015 FELICITA CEDEÑO MD Ot Z00.00 06/09/2015 FELICITA CEDEÑO MD Ot E11.9 06/09/2015 FELICITA CEDEÑO MD Ot Z00.00 06/28/2015 NORMA, BOBAN N Ot 280.0 06/28/2015 NORMA, BOBAN N Ot 285.21 06/28/2015 NORMA, BOBAN N Ot 585.3 06/28/2015 NORMA, BOBAN N Ot D50.0 06/28/2015 NORMA, BOBAN N Ot D63.1 06/28/2015 NORMA, BOBAN N Ot N18.3 06/28/2015 NORMA, BOBAN N Ot V58.69 06/28/2015 NORMA, BOBAN N Ot Z79.899 07/07/2015 NORMA, BOBAN N Ot 280.0 07/07/2015 NORMA, BOBAN N Ot 285.21 07/07/2015 NORMA, BOBAN N Ot 585.3 07/07/2015 NORMA, BOBAN N Ot D50.0 07/07/2015 NORMA, BOBAN N Ot D63.1 07/07/2015 NORMA, BOBAN N Ot N18.3 07/07/2015 NORMA, BOBAN N Ot V58.69 07/07/2015 NORMA, BOBAN N Ot Z79.899 07/26/2015 NORMA, BOBAN N Ot 280.0 CHR BLOOD LOSS ANEMIA 07/26/2015 NORMA, BOBAN N Ot 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 07/26/2015 JOSIE GREENAN N Ot 585.3 CHRONIC KIDNEY DISEASE, STAGE III (MODER 07/26/2015 JOSIE GREENAN N Ot D50.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 07/26/2015 JOSIE GREENAN N Ot D63.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 07/26/2015 DINORA GREEN N Ot N18.3 CHRONIC KIDNEY DISEASE, STAGE 3 (MODERAT 07/26/2015 DINORA GREEN N Ot V58.69 OTH MED,LT,CURRENT USE 07/26/2015 DINORA GREEN N Ot Z79.899 OTHER MANPOWER DEVELOPMENT ADVISOR (CURRENT) DRUG THERAPY 07/27/2015 KLARISSA MOSER TECHNICIAN TRAINEE Ot G47.33 07/27/2015 KLARISSA MOSER TECHNICIAN TRAINEE Ot I27.2 07/27/2015 KLARISSA MOSER TECHNICIAN TRAINEE Ot J44.9 07/27/2015 KLARISSA MOSER TECHNICIAN TRAINEE Ot R06.02 07/27/2015 KLARISSA MOSER TECHNICIAN TRAINEE Ot R91.1 07/27/2015 KLARISSA MOSER E TECHNICIAN TRAINEE Ot G47.33 07/27/2015 SINA MOSERINE E TECHNICIAN TRAINEE Ot I27.2 07/27/2015 KLARISSA MOSER TECHNICIAN TRAINEE Ot J44.9 07/27/2015 KLARISSA MOSER TECHNICIAN TRAINEE Ot R06.02 07/27/2015 KLARISSA MOSER TECHNICIAN TRAINEE Ot R91.1 07/27/2015 ANGEL FLOWERS JOINT MAKER MACHINE Ot D50.0 07/27/2015 ANGEL FLOWERS JOINT MAKER MACHINE Ot D63.1 07/27/2015 ANGEL FLOWERS JOINT MAKER MACHINE Ot N18.3 07/27/2015 ANGEL FLOWERS JOINT MAKER MACHINE Ot Z79.899 08/03/2015 DINORA GREEN N Ot 280.0 08/03/2015 NORMAIDNORA REYES N Ot 285.21 08/03/2015 DINORA GREEN N Ot 585.3 08/03/2015 NORMAJOSIE REYESAN N Ot D50.0 08/03/2015 NORMAJOSIE REYESAN N Ot D63.1 08/03/2015 NORMA, BOBAN N Ot N18.3 08/03/2015 DINORA GREEN N Ot V58.69 08/03/2015 NORMA, BOBAN N Ot Z79.899 08/04/2015 NORMA, BOBAN N Ot D50.0 08/04/2015 NORMAJOSIE REYESAN N Ot D63.1 08/04/2015 NORMAJOSIE REYESAN N Ot N18.3 08/04/2015 NORMA, BOBAN N Ot Z79.899 08/07/2015 FLOWERSANGEL Garza S JOINT MAKER MACHINE Ot D50.0 08/07/2015 FLOWERSANGEL Garza S JOINT MAKER MACHINE Ot D63.1 08/07/2015 FLOWERS ANGEL S JOINT MAKER MACHINE Ot N18.3 08/07/2015 FLOWERS ANGEL S JOINT MAKER MACHINE Ot Z79.899 09/04/2015 ALTAGRACIA TY, DELILAH Borges Ot E03.9 09/04/2015 ALTAGRACIA TY, DELILAH D Ot E11.8 09/04/2015 ALTAGRACIA TY, DELILAH D Ot E03.9 09/04/2015 ALTAGRACIA TY, DELILAH D Ot E11.8 09/04/2015 ALTAGRACIA TY, DELILAH D Ot E03.9 09/04/2015 ALTAGRACIA TY, DELILAH D Ot E11.8 09/21/2015 ALTAGRACIA TY, DELILAH D Ot E03.9 09/21/2015 ALTAGRACIA TY, DELILAH D Ot E11.8 09/27/2015 GALA TY, FELICITA Borges Ot Z12.31 09/27/2015 ALTAGRACIA TY, DELILAH D Ot E03.9 09/27/2015 ALTAGRACIA TY, DELILAH D Ot E11.8 09/28/2015 FLOWERS ANGEL S JOINT MAKER MACHINE Ot D50.0 09/28/2015 KRISTIE ANGEL S JOINT MAKER MACHINE Ot D63.1 09/28/2015 FLOWERS ANGEL S JOINT MAKER MACHINE Ot N18.3 09/28/2015 FLOWERS ANGEL S JOINT MAKER MACHINE Ot Z79.899 09/29/2015 DINORA GREEN N Ot D50.0 09/29/2015 NORMAJOSIE REYESAN N Ot D63.1 09/29/2015 NORMA, BOBAN N Ot N18.3 09/29/2015 NORMA, BOBAN N Ot Z79.899 10/02/2015 GALA TY, FELICITA Borges Ot Z12.31 10/02/2015 ANGEL FLOWERS JOINT MAKER MACHINE Ot D50.0 10/02/2015 ANGEL FLOWERS JOINT MAKER MACHINE Ot D63.1 10/02/2015 ANGEL FLOWERS JOINT MAKER MACHINE Ot N18.3 10/02/2015 ANGEL FLOWERS JOINT MAKER MACHINE Ot Z79.899 10/04/2015 NORMADINORA REYES N Ot D50.0 10/04/2015 NORMA, BOBAN N Ot D63.1 10/04/2015 NORMA, BOBAN N Ot N18.3 10/04/2015 NORMA, BOBAN N Ot Z79.899 10/05/2015 GALA TY, FELICITA Borges Ot R51 10/24/2015 GALA TY, FELICITA Borges Ot R51 10/30/2015 GALA TY, FELICITA Borges Ot R51 11/01/2015 DINORA GREEN N Ot D50.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 11/01/2015 NORMADINORA REYES N Ot D63.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 11/01/2015 NORMA, BOBAN N Ot N18.3 CHRONIC KIDNEY DISEASE, STAGE 3 (MODERAT 11/01/2015 NORMA, BOBAN N Ot Z79.899 OTHER MANPOWER DEVELOPMENT ADVISOR (CURRENT) DRUG THERAPY 11/03/2015 NORMA BOBAN N Ot D50.0 11/03/2015 NORMA, BOBAN N Ot D63.1 11/03/2015 NORMA, BOBAN N Ot N18.3 11/03/2015 NORMA, BOBAN N Ot Z79.899 11/29/2015 JANA PALACIOS Ot I10 ESSENTIAL (PRIMARY) HYPERTENSION 11/29/2015 JANA PALACIOS Ot I10 ESSENTIAL (PRIMARY) HYPERTENSION 11/29/2015 JANA PALACIOS Ot I10 ESSENTIAL (PRIMARY) HYPERTENSION 11/30/2015 JANA PALACIOS Ot I10 ESSENTIAL (PRIMARY) HYPERTENSION 11/30/2015 JANA PALACIOS Ot I10 ESSENTIAL (PRIMARY) HYPERTENSION 11/30/2015 JANA PALACIOS Ot I25.10 ATHSCL HEART DISEASE OF [place] CORONARY 11/30/2015 JANA PALACIOS Ot I65.23 OCCLUSION AND STENOSIS OF [place] 11/30/2015 JANA PALACIOS Ot R07.89 OTHER CHEST PAIN 11/30/2015 MIRTA TORRES APRN Ot M25.511 PAIN IN RIGHT SHOULDER 11/30/2015 MIRTA TORRES APRN Ot R07.9 CHEST PAIN, UNSPECIFIED 12/19/2015 FELIICTA CEDEÑO MD, Ot B35.8 OTHER DERMATOPHYTOSES 12/19/2015 FELICITA CEDEÑO MD, Ot D63.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 12/19/2015 FELICITA CEDEÑO MD, Ot E03.9 HYPOTHYROIDISM, UNSPECIFIED 12/19/2015 FELICITA CEDEÑO MD, Ot E11.42 TYPE 2 DIABETES MELLITUS WITH DIABETIC P 12/19/2015 FELICITA CEDEÑO MD, Ot E11.65 TYPE 2 DIABETES MELLITUS WITH HYPERGLYCE 12/19/2015 FELICITA CEDEÑO MD, Ot E78.5 HYPERLIPIDEMIA, UNSPECIFIED 12/19/2015 FELICITA CEDEÑO MD, Ot E87.1 HYPO-OSMOLALITY AND HYPONATREMIA 12/19/2015 FELICITA CEDEÑO MD, Ot F32.9 MAJOR DEPRESSIVE DISORDER, SINGLE EPISOD 12/19/2015 FELICITA CEDEÑO MD, Ot F41.9 ANXIETY DISORDER, UNSPECIFIED 12/19/2015 FELICITA CEDEÑO MD, Ot G47.33 OBSTRUCTIVE SLEEP APNEA (ADULT) (PEDIATR 12/19/2015 FLEICITA CEDEÑO MD, Ot I50.9 HEART FAILURE, UNSPECIFIED 12/19/2015 FELICITA CEDEÑO MD, Ot J18.9 PNEUMONIA, UNSPECIFIED ORGANISM 12/19/2015 FELICITA CEDEÑO MD, Ot J44.9 CHRONIC OBSTRUCTIVE PULMONARY DISEASE, U 12/19/2015 FELICITA CEDEÑO MD, Ot K21.9 GASTRO-ESOPHAGEAL REFLUX DISEASE WITHOUT 12/19/2015 FELICITA CEDEÑO MD, Ot 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[place], STAGE 2 12/19/2015 FELICITA CEDEÑO MD, Ot N17.9 ACUTE KIDNEY FAILURE, UNSPECIFIED 12/19/2015 FELICITA CEDEÑO MD, Ot N18.9 CHRONIC KIDNEY DISEASE, UNSPECIFIED 12/19/2015 FELICITA CEDEÑO MD, Ot Z79.4 MANPOWER DEVELOPMENT ADVISOR (CURRENT) USE OF INSULIN 12/19/2015 DINORA GREEN Ot D50.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 12/19/2015 DINORA GREEN Ot D63.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 12/19/2015 DINORA GREEN Ot N18.3 CHRONIC KIDNEY DISEASE, STAGE 3 (MODERAT 12/19/2015 DINORA GREEN Ot Z79.899 OTHER HALFWAY (CURRENT) DRUG THERAPY 12/19/2015 JANA PALACIOS Ot I10 ESSENTIAL (PRIMARY) HYPERTENSION 12/19/2015 JANA PALACIOS Ot I25.10 ATHSCL HEART DISEASE OF [place] CORONARY 12/19/2015 JANA PALACIOS Ot I65.23 OCCLUSION AND STENOSIS OF [place] 12/19/2015 JANA PALACIOS Ot R07.89 OTHER CHEST PAIN 12/19/2015 MIRTA TORRES APRN Ot M25.511 PAIN IN RIGHT SHOULDER 12/19/2015 MIRTA TORRES APRN Ot R07.9 CHEST PAIN, UNSPECIFIED 12/26/2015 DINORA GREEN Ot D50.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 12/26/2015 DINORA GREEN Ot D63.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 12/26/2015 DINORA GREEN Ot N18.3 CHRONIC KIDNEY DISEASE, STAGE 3 (MODERAT 12/26/2015 DINORA GREEN Ot Z79.899 OTHER HALFWAY (CURRENT) DRUG THERAPY 12/26/2015 JANA PALACIOS Ot I10 ESSENTIAL (PRIMARY) HYPERTENSION 12/26/2015 JANA PALACIOS Ot I25.10 ATHSCL HEART DISEASE OF [place] CORONARY 12/26/2015 JANA PALACIOS Ot I65.23 OCCLUSION AND STENOSIS OF [place] 12/26/2015 JANA PALACIOS Ot R07.89 OTHER CHEST PAIN 12/26/2015 MIRTA TORRES TECHNICIAN TRAINEE Ot M25.511 PAIN IN RIGHT SHOULDER 12/26/2015 MIRTA TORRES TECHNICIAN TRAINEE Ot R07.9 CHEST PAIN, UNSPECIFIED 12/27/2015 Ot 250.00 DIAB ЮЛИЯ WO COMPL, TYPE II OR UNSPEC TY 12/27/2015 Ot 272.4 HYPERLIPIDEMIA NEC/NOS 12/27/2015 MIRTA TORRES APRN Ot 599.0 URIN TRACT INFECTION NOS 01/15/2016 FLOWERS, HILAH S JOINT MAKER MACHINE Ot D50.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 01/15/2016 ANGEL FLOWERS JOINT MAKER MACHINE Ot D63.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 01/15/2016 ANGEL FLOWERS JOINT MAKER MACHINE Ot N18.3 CHRONIC KIDNEY DISEASE, STAGE 3 (MODERAT 01/15/2016 ANGEL FLOWERS JOINT MAKER MACHINE Ot Z79.899 OTHER MANPOWER DEVELOPMENT ADVISOR (CURRENT) DRUG THERAPY 01/18/2016 FELICITA CEDEÑO MD, Ot E11.9 TYPE 2 DIABETES MELLITUS WITHOUT COMPLIC 01/18/2016 FELICITA CEDEÑO MD, Ot E11.9 TYPE 2 DIABETES MELLITUS WITHOUT COMPLIC 01/18/2016 FELICITA CEDEÑO MD, Ot E11.9 TYPE 2 DIABETES MELLITUS WITHOUT COMPLIC 01/18/2016 FELICITA CEDEÑO MD, Ot E11.9 TYPE 2 DIABETES MELLITUS WITHOUT COMPLIC 01/18/2016 FELICITA CEDEÑO MD, Ot E11.9 TYPE 2 DIABETES MELLITUS WITHOUT COMPLIC 01/19/2016 FELICITA CEDEÑO MD, Ot E05.90 THYROTOXICOSIS, 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 THYROTOXIC 01/19/2016 FELICITA CEDEÑO MD, Ot E11.9 TYPE 2 DIABETES MELLITUS WITHOUT COMPLIC 01/19/2016 FELICITA CEDEÑO MD Ot E78.4 OTHER HYPERLIPIDEMIA 01/19/2016 FELICITA CEDEÑO MD Ot R94.6 ABNORMAL RESULTS OF THYROID FUNCTION [place] 01/19/2016 DINORA GREEN N Ot D50.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 01/19/2016 DINORA GREEN N Ot D63.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 01/19/2016 DINORA GREEN N Ot N18.3 CHRONIC KIDNEY DISEASE, STAGE 3 (MODERAT 01/19/2016 DINORA GREEN N Ot Z79.899 OTHER HALFWAY (CURRENT) DRUG THERAPY 01/20/2016 FELICITA CEDEÑO MD, Ot E05.90 THYROTOXICOSIS, 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 THYROTOXIC 01/20/2016 FELICITA CEDEÑO MD, Ot E11.9 TYPE 2 DIABETES MELLITUS WITHOUT COMPLIC 01/20/2016 FELICITA CEDEÑO MD, Ot E78.4 OTHER HYPERLIPIDEMIA 01/20/2016 FELICITA CEDEÑO MD Ot R94.6 ABNORMAL RESULTS OF THYROID FUNCTION [place] 01/31/2016 DINORA GREEN N Ot D50.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 01/31/2016 DINORA GREEN N Ot D63.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 01/31/2016 DINORA GREEN Ot N18.3 CHRONIC KIDNEY DISEASE, STAGE 3 (MODERAT 01/31/2016 DINORA GREEN Ot Z79.899 OTHER MANPOWER DEVELOPMENT ADVISOR (CURRENT) DRUG THERAPY 01/31/2016 ANGEL FLOWERS JOINT MAKER MACHINE Ot D50.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 01/31/2016 FLOWERSMIGUELAH S JOINT MAKER MACHINE Ot D63.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 01/31/2016 ANGEL FLOWERS S JOINT MAKER MACHINE Ot N18.3 CHRONIC KIDNEY DISEASE, STAGE 3 (MODERAT 01/31/2016 ANGEL FLOWERS S JOINT MAKER MACHINE Ot Z79.899 OTHER HALFWAY (CURRENT) DRUG THERAPY 02/05/2016 TAPAN HUI MD Ot R05 COUGH 02/05/2016 TAPAN HUI MD Ot R13.19 OTHER DYSPHAGIA 02/05/2016 TAPAN HUI MD Ot R49.0 DYSPHONIA 02/06/2016 ANGEL FLOWERS S JOINT MAKER MACHINE Ot D50.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 02/06/2016 ANGEL FLOWERS S JOINT MAKER MACHINE Ot D63.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 02/06/2016 ANGEL FLOWERS JOINT MAKER MACHINE Ot N18.3 CHRONIC KIDNEY DISEASE, STAGE 3 (MODERAT 02/06/2016 ANGEL FLOWERS S JOINT MAKER MACHINE Ot Z79.899 OTHER HALFWAY (CURRENT) DRUG THERAPY 02/06/2016 TAPAN HUI MD Ot R05 COUGH 02/06/2016 TAPAN HUI MD Ot R13.19 OTHER DYSPHAGIA 02/06/2016 TAPAN HUI MD Ot R49.0 DYSPHONIA 02/06/2016 TAPAN HUI MD Ot R49.0 DYSPHONIA 02/07/2016 FELICITA CEDEÑO MD Ot E05.90 THYROTOXICOSIS, 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 THYROTOXIC 02/07/2016 FELICITA CEDEÑO MD Ot E11.9 TYPE 2 DIABETES MELLITUS WITHOUT COMPLIC 02/07/2016 FELICITA CEDEÑO MD Ot E78.4 OTHER HYPERLIPIDEMIA 02/07/2016 FELICITA CEDEÑO MD Ot R94.6 ABNORMAL RESULTS OF THYROID FUNCTION SHAY 02/08/2016 TAPAN HUI MD Ot R49.0 DYSPHONIA 02/09/2016 DINORA GREEN N Ot D50.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 02/09/2016 DINORA GREEN Ot D63.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 02/09/2016 DINORA GREEN Ot N18.3 CHRONIC KIDNEY DISEASE, STAGE 3 (MODERAT 02/09/2016 NORMA JOSIERACHELLE Casi Ot Z79.899 OTHER HALFWAY (CURRENT) DRUG THERAPY 02/12/2016 FELICITA CEDEÑO MD Ot E05.90 THYROTOXICOSIS, 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 THYROTOXIC 02/12/2016 FELICITA CEDEÑO MD Ot E11.9 TYPE 2 DIABETES MELLITUS WITHOUT COMPLIC 02/12/2016 FELICITA CEDEÑO MD Ot E78.4 OTHER HYPERLIPIDEMIA 02/12/2016 FELICITA CEDEÑO MD Ot R94.6 ABNORMAL RESULTS OF THYROID FUNCTION SHAY 02/16/2016 DELILAH HARE Ot D64.9 ANEMIA, UNSPECIFIED 02/16/2016 DELILAH HARE Ot E87.1 HYPO-OSMOLALITY AND HYPONATREMIA 02/19/2016 EZ TY, TAPAN Carvajal Ot R49.0 DYSPHONIA 02/20/2016 DELILAH HARE L Ot D64.9 ANEMIA, UNSPECIFIED 02/20/2016 DELILAH HARE L Ot E87.1 HYPO-OSMOLALITY AND HYPONATREMIA 02/20/2016 DELILAH HARE L Ot D64.9 ANEMIA, UNSPECIFIED 02/20/2016 DELILAH HARE L Ot E87.1 HYPO-OSMOLALITY AND HYPONATREMIA 02/20/2016 DELILAH HARE L Ot D64.9 ANEMIA, UNSPECIFIED 02/20/2016 DELILAH HARE L Ot E87.1 HYPO-OSMOLALITY AND HYPONATREMIA 02/20/2016 DELILAH HARE L Ot D64.9 ANEMIA, UNSPECIFIED 02/20/2016 DELILAH HARE L Ot E87.1 HYPO-OSMOLALITY AND HYPONATREMIA 02/20/2016 DELILAH HARE L Ot D64.9 ANEMIA, UNSPECIFIED 02/20/2016 DELILAH HARE L Ot E87.1 HYPO-OSMOLALITY AND HYPONATREMIA 02/20/2016 DELILAH HARE L Ot D64.9 ANEMIA, UNSPECIFIED 02/20/2016 DELILAH HARE L Ot E87.1 HYPO-OSMOLALITY AND HYPONATREMIA 02/21/2016 EZ TY, TAPAN Carvajal Ot R49.0 DYSPHONIA 02/26/2016 GALA TY, FRANKLIN A Ot 787.02 NAUSEA ALONE 03/07/2016 TAPAN HUI MD Ot R05 COUGH 03/07/2016 EZ TY, TAPAN Carvajal Ot R13.19 OTHER DYSPHAGIA 03/07/2016 EZ TY, TAPAN Carvajal Ot R49.0 DYSPHONIA 03/08/2016 GALA TY, FELICITA Borges Ot E05.90 THYROTOXICOSIS, 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 THYROTOXIC 03/08/2016 GALA TY, FELICITA Borges Ot E05.90 THYROTOXICOSIS, 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 THYROTOXIC 03/08/2016 GALA TY, FELICITA Borges Ot E05.90 THYROTOXICOSIS, 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 THYROTOXIC 03/08/2016 GALA TY, FELICITA Borges Ot E05.90 THYROTOXICOSIS, 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 THYROTOXIC 03/08/2016 GALA TY, FELICITA Borges Ot E05.90 THYROTOXICOSIS, 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 THYROTOXIC 03/08/2016 GALA TY, FELICITA Borges Ot E05.90 THYROTOXICOSIS, 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 THYROTOXIC 03/12/2016 TAPAN HUI MD Ot R05 COUGH 03/12/2016 TAPAN HUI MD Ot R13.19 OTHER DYSPHAGIA 03/12/2016 TAPAN HUI MD Ot R49.0 DYSPHONIA 03/13/2016 GALA TY, FELICITA Borges Ot E05.90 THYROTOXICOSIS, 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 THYROTOXIC 03/14/2016 TAPAN HUI MD Ot R49.0 DYSPHONIA 03/15/2016 ANGEL FLOWERSP Ot D50.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 03/15/2016 ANGEL FLOWERS JOINT MAKER MACHINE Ot D63.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 03/15/2016 ANGEL FLOWERSP Ot N18.3 CHRONIC KIDNEY DISEASE, STAGE 3 (MODERAT 03/15/2016 ANGEL FLOWERS JOINT MAKER MACHINE Ot Z79.899 OTHER HALFWAY (CURRENT) DRUG THERAPY 03/15/2016 Ot 285.9 ANEMIA NOS 03/15/2016 Ot 786.05 SHORTNESS OF BREATH 03/15/2016 Ot 786.07 WHEEZING 03/15/2016 Ot 786.2 COUGH 03/15/2016 Ot 285.9 ANEMIA NOS 03/15/2016 Ot 244.8 ACQUIRED HYPOTHYROID NEC 03/15/2016 Ot 250.00 DIAB ЮЛИЯ WO COMPL, TYPE II OR UNSPEC TY 03/15/2016 Ot 401.1 BENIGN HYPERTENSION 03/15/2016 Ot 272.4 HYPERLIPIDEMIA NEC/NOS 03/15/2016 Ot 401.9 HYPERTENSION NOS 03/15/2016 Ot 414.01 CORONARY ATHEROSCLEROSIS [place] CORON 03/15/2016 Ot V58.63 LONG-TERM( CURRENT)USE OF ANTIPLATELET/AN 03/15/2016 Ot V58.66 LONG-TERM ( CURRENT) USE OF ASPIRIN 03/15/2016 Ot V58.69 OTH MED,LT, CURRENT USE 03/15/2016 Ot 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 03/15/2016 Ot 397.0 TRICUSPID VALVE DISEASE 03/15/2016 Ot 401.9 HYPERTENSION NOS 03/15/2016 Ot 424.0 MITRAL VALVE DISORDER 03/15/2016 Ot 272.4 HYPERLIPIDEMIA NEC/NOS 03/15/2016 Ot 401.9 HYPERTENSION NOS 03/15/2016 Ot 414.00 CORON ATHEROSCLER NOS TYPE VESSEL, NATIV 03/15/2016 Ot 272.4 HYPERLIPIDEMIA NEC/NOS 03/15/2016 Ot 401.9 HYPERTENSION NOS 03/15/2016 Ot 414.01 CORONARY ATHEROSCLEROSIS OF [place] CORON 03/15/2016 Ot 786.50 CHEST PAIN NOS 03/15/2016 Ot 791.9 ABN URINE FINDINGS NEC 03/15/2016 Ot V72.63 PRE- PROCEDURAL LABORATORY EXAMINATION 03/15/2016 Ot V72.81 EXAM-PRE- OPERATIVE CARDIOVASCULAR 03/15/2016 Ot V76.12 OTH SCREEN MAMMO-MALIGN NEOPLASM OF [place] 03/15/2016 Ot 786.09 RESPIRATORY ABNORM NEC 03/15/2016 Ot 250.00 DIAB ЮЛИЯ WO COMPL, TYPE II OR UNSPEC TY 03/15/2016 Ot 250.00 DIAB ЮЛИЯ WO COMPL, TYPE II OR UNSPEC TY 03/15/2016 Ot 401.1 BENIGN HYPERTENSION 03/15/2016 Ot 272.4 HYPERLIPIDEMIA NEC/NOS 03/15/2016 Ot 401.9 HYPERTENSION NOS 03/15/2016 Ot 414.00 CORON ATHEROSCLER NOS TYPE VESSEL, NATIV 03/15/2016 Ot 996.43 BROKEN PROSTHETIC JOINT IMPLANT 03/15/2016 Ot V43.65 KNEE JOINT REPLACEMENT STATUS 03/15/2016 Ot 721.3 LUMBOSACRAL SPONDYLOSIS 03/15/2016 Ot 738.4 ACQ SPONDYLOLISTHESIS 03/15/2016 Ot 250.00 DIAB ЮЛИЯ WO COMPL, TYPE II OR UNSPEC TY 03/15/2016 Ot 401.1 BENIGN HYPERTENSION 03/15/2016 Ot 787.91 DIARRHEA 03/15/2016 Ot 787.91 DIARRHEA 03/15/2016 Ot 244.9 HYPOTHYROIDISM NOS 03/15/2016 Ot 250.00 DIAB ЮЛИЯ WO COMPL, TYPE II OR UNSPEC TY 03/15/2016 Ot 272.4 HYPERLIPIDEMIA NEC/NOS 03/15/2016 Ot 401.1 BENIGN HYPERTENSION 03/15/2016 Ot V49.81 ASYMPT POSTMENOPAUSAL STATUS (AGE-RELATE 03/15/2016 Ot V82.81 SCREENING FOR OSTEOPOROSIS 03/15/2016 Ot 280.0 CHR BLOOD LOSS ANEMIA 03/15/2016 Ot 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 03/15/2016 Ot 465.9 ACUTE URI NOS 03/15/2016 Ot 585.3 CHRONIC KIDNEY DISEASE, STAGE III (MODER 03/15/2016 Ot 787.91 DIARRHEA 03/15/2016 Ot V58.69 OTH MED,LT, CURRENT USE 03/15/2016 Ot 793.82 INCONCLUSIVE MAMMOGRAM 03/15/2016 Ot V76.12 OTH SCREEN MAMMO-MALIGN NEOPLASM OF [place] 03/15/2016 Ot 793.89 OTH (ABN) FINDINGS ON RADIOLOGICAL EXAMI 03/15/2016 Ot 272.4 HYPERLIPIDEMIA NEC/NOS 03/15/2016 Ot 414.01 CORONARY ATHEROSCLEROSIS OF [place] CORON 03/15/2016 Ot 812.40 FX LOWER HUMERUS NOS-CL 03/15/2016 Ot E000.8 OTHER EXTERNAL CAUSE STATUS 03/15/2016 Ot E001.0 ACTIVITIES INVOLVING WALKING, MARCHING A 03/15/2016 Ot E849.6 ACCIDENT IN PUBLIC BLDG 03/15/2016 Ot E885.9 FALL FROM SLIPPING, TRIPPING, OR STUMBLI 03/15/2016 Ot V72.84 EXAM PRE- OPERATIVE NOS 03/15/2016 ANGEL FLOWERS Ot 793.80 UNSPEC ABNORMAL MAMMOGRAM 03/15/2016 ANGEL FLOWERS Ot V67.9 FOLLOW-UP EXAM NOS 03/15/2016 Ot 250.00 DIAB ЮЛИЯ WO COMPL, TYPE II OR UNSPEC TY 03/15/2016 Ot 272.4 HYPERLIPIDEMIA NEC/NOS 03/15/2016 Ot 401.9 HYPERTENSION NOS 03/15/2016 ANGEL FLOWERS Ot 280.9 IRON DEFIC ANEMIA NOS 03/15/2016 ANGEL FLOWERS Ot 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 03/15/2016 FLOWERS, HILAH S JOINT MAKER MACHINE Ot 414.00 CORON ATHEROSCLER NOS TYPE VESSEL, NATIV 03/15/2016 ANGEL FLOWERS JOINT MAKER MACHINE Ot 585.3 CHRONIC KIDNEY DISEASE, STAGE III (MODER 03/15/2016 ANGEL FLOWERS JOINT MAKER MACHINE Ot 599.0 URIN TRACT INFECTION NOS 03/15/2016 ANGEL FLOWERS JOINT MAKER MACHINE Ot V58.69 OTH MED,LT,CURRENT USE 03/15/2016 ANGEL FLOWERS JOINT MAKER MACHINE Ot 280.0 CHR BLOOD LOSS ANEMIA 03/15/2016 ANGEL FLOWERS JOINT MAKER MACHINE Ot 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 03/15/2016 ANGEL FLOWERS JOINT MAKER MACHINE Ot 414.00 CORON ATHEROSCLER NOS TYPE VESSEL, NATIV 03/15/2016 ANGEL FLOWERS JOINT MAKER MACHINE Ot 585.3 CHRONIC KIDNEY DISEASE, STAGE III (MODER 03/15/2016 ANGEL FLOWERS JOINT MAKER MACHINE Ot V58.69 OTH MED,LT,CURRENT USE 03/15/2016 DINORA GREEN Casi Ot 793.89 OTH (ABN) FINDINGS ON RADIOLOGICAL EXAMI 03/15/2016 JANA PALACIOS Ot 250.00 DIAB ЮЛИЯ WO COMPL, TYPE II OR UNSPEC TY 03/15/2016 JANA PALACIOS Ot 272.4 HYPERLIPIDEMIA NEC/NOS 03/15/2016 JANA PALACIOS Ot 401.9 HYPERTENSION NOS 03/15/2016 JANA PALACIOS Ot 414.00 CORON ATHEROSCLER NOS TYPE VESSEL, NATIV 03/15/2016 JANA PALACIOS Ot 496 CHR AIRWAY OBSTRUCT NEC 03/15/2016 JANA PALACIOS Ot 780.4 DIZZINESS AND GIDDINESS 03/15/2016 JANA PALACIOS Ot 785.1 PALPITATIONS 03/15/2016 EZ TY, TAPAN P Ot 473.9 CHRONIC SINUSITIS NOS 03/15/2016 SAURABH TY, PAIGE Benitez Ot 786.07 WHEEZING 03/15/2016 PAIGE WILEY MD Ot 786.2 COUGH 03/15/2016 PATRICIA TY, JULIETTE Infante Ot 272.4 HYPERLIPIDEMIA NEC/NOS 03/15/2016 JULIETTE GOMEZ MD Ot 414.01 CORONARY ATHEROSCLEROSIS OF [place] CORON 03/15/2016 ANGEL FLOWERS JOINT MAKER MACHINE Ot 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 03/15/2016 ANGEL FLOWERS JOINT MAKER MACHINE Ot 585.3 CHRONIC KIDNEY DISEASE, STAGE III (MODER 03/15/2016 ANGEL FLOWERS Kayla JOINT MAKER MACHINE Ot V58.69 OTH MED,LT,CURRENT USE 03/15/2016 ANGEL FLOWERS JOINT MAKER MACHINE Ot 429.3 CARDIOMEGALY 03/15/2016 ANGEL FLOWERS JOINT MAKER MACHINE Ot 786.09 RESPIRATORY ABNORM NEC 03/15/2016 MIGUEL FLOWERSJENS Kayla JOINT MAKER MACHINE Ot 786.2 COUGH 03/15/2016 ANGEL FLOWERS JOINT MAKER MACHINE Ot 280.9 IRON DEFIC ANEMIA NOS 03/15/2016 ANGEL FLOWERS JOINT MAKER MACHINE Ot 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 03/15/2016 ANGEL FLOWERS JOINT MAKER MACHINE Ot 585.3 CHRONIC KIDNEY DISEASE, STAGE III (MODER 03/15/2016 ANGEL FLOWERS JOINT MAKER MACHINE Ot V58.69 OTH MED,LT,CURRENT USE 03/15/2016 DELILAH FRIAS MD Ot 250.92 DIAB W UNSPEC COMPL, TYPE II OR UNSPEC T 03/15/2016 DELILAH FRIAS MD Ot 272.4 HYPERLIPIDEMIA NEC/NOS 03/15/2016 DELILAH FRIAS MD Ot 355.9 MONONEURITIS NOS 03/15/2016 ANGEL FLOWERS JOINT MAKER MACHINE Ot 280.9 IRON DEFIC ANEMIA NOS 03/15/2016 ANGEL FLOWERS JOINT MAKER MACHINE Ot 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 03/15/2016 ANGEL FLOWERS JOINT MAKER MACHINE Ot 585.3 CHRONIC KIDNEY DISEASE, STAGE III (MODER 03/15/2016 ANGEL FLOWERS JOINT MAKER MACHINE Ot V58.69 OTH MED,LT,CURRENT USE 03/15/2016 ANGEL FLOWERS JOINT MAKER MACHINE Ot 280.9 IRON DEFIC ANEMIA NOS 03/15/2016 ANGEL FLOWERS S JOINT MAKER MACHINE Ot 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 03/15/2016 ANGEL FLOWERS JOINT MAKER MACHINE Ot 585.3 CHRONIC KIDNEY DISEASE, STAGE III (MODER 03/15/2016 ANGEL FLOWERS JOINT MAKER MACHINE Ot V58.69 OTH MED,LT,CURRENT USE 03/15/2016 LEXIE GONZALES JOINT MAKER MACHINE Ot 496 CHR AIRWAY OBSTRUCT NEC 03/15/2016 LEXIE GONZALES JOINT MAKER MACHINE Ot 786.39 OTHER HEMOPTYSIS 03/15/2016 LEXIE GONZALES JOINT MAKER MACHINE Ot 786.2 COUGH 03/15/2016 LEXIE GONZALES JOINT MAKER MACHINE Ot 786.30 HEMOPTYSIS, UNSPECIFIED 03/15/2016 LEXIE GONZALES JOINT MAKER MACHINE Ot 793.11 SOLITARY PULMONARY NODULE 03/15/2016 LEXIE GONZALES JOINT MAKER MACHINE Ot 786.39 OTHER HEMOPTYSIS 03/15/2016 PATRICIA TY, JULIETTE J Ot 272.4 HYPERLIPIDEMIA NEC/NOS 03/15/2016 PATRICIA TY, MATTHAR J Ot 401.9 HYPERTENSION NOS 03/15/2016 PATRICIA TY, MATTHAR J Ot 414.00 CORON ATHEROSCLER NOS TYPE VESSEL, NATIV 03/15/2016 PATRICIA TY, JULIETTE J Ot 272.4 HYPERLIPIDEMIA NEC/NOS 03/15/2016 PATRICIA TY, MATTHAR J Ot 401.9 HYPERTENSION NOS 03/15/2016 PATRICIA TY, BASHAR J Ot 414.00 CORON ATHEROSCLER NOS TYPE VESSEL, NATIV 03/15/2016 Ot 496 CHR AIRWAY OBSTRUCT NEC 03/15/2016 Ot 786.05 SHORTNESS OF BREATH 03/15/2016 Ot 786.2 COUGH 03/15/2016 AR ALLEN DO Ot 496 CHR AIRWAY OBSTRUCT NEC 03/15/2016 AR ALLEN DO Ot 786.05 SHORTNESS OF BREATH 03/15/2016 AR ALLEN DO Ot 786.2 COUGH 03/15/2016 ANGEL FLOWERS JOINT MAKER MACHINE Ot 280.9 IRON DEFIC ANEMIA NOS 03/15/2016 ANGEL FLOWERS JOINT MAKER MACHINE Ot 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 03/15/2016 ANGEL FLOWERS JOINT MAKER MACHINE Ot 585.3 CHRONIC KIDNEY DISEASE, STAGE III (MODER 03/15/2016 ANGEL FLOWERS JOINT MAKER MACHINE Ot 780.60 FEVER, UNSPECIFIED 03/15/2016 ANGEL FLOWERS JOINT MAKER MACHINE Ot 787.01 NAUSEA WITH VOMITING 03/15/2016 ANGEL FLOWERS JOINT MAKER MACHINE Ot 787.91 DIARRHEA 03/15/2016 ANGEL FLOWERS JOINT MAKER MACHINE Ot V58.69 OT MED,LT,CURRENT USE 03/15/2016 GALA TY, FELICITA Borges Ot V76.12 OTH SCREEN MAMMO-MALIGN NEOPLASM OF [place] 03/15/2016 MIRTA TORRES APRN Ot 786.2 COUGH 03/15/2016 Ot 280.9 IRON DEFIC ANEMIA NOS 03/15/2016 Ot 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 03/15/2016 Ot 585.4 CHRONIC KIDNEY DISEASE, STAGE IV (SEVERE 03/15/2016 Ot 599.0 URIN TRACT INFECTION NOS 03/15/2016 Ot 787.91 DIARRHEA 03/15/2016 Ot 793.11 SOLITARY PULMONARY NODULE 03/15/2016 Ot V58.69 OTH MED,LT, CURRENT USE 03/15/2016 Ot 496 CHR AIRWAY OBSTRUCT NEC 03/15/2016 Ot 786.05 SHORTNESS OF BREATH 03/15/2016 Ot 786.2 COUGH 03/15/2016 AR ALLEN DO Ot 255.9 ADRENAL DISORDER N0S 03/15/2016 AR ALLEN DO Ot 486 PNEUMONIA, ORGANISM NOS 03/15/2016 AR ALLEN DO Ot 496 CHR AIRWAY OBSTRUCT NEC 03/15/2016 AR ALLEN DO Ot 562.10 DIVERTICULOSIS COLON (W/O MENT OF HEMORR 03/15/2016 AR ALLEN DO Ot 786.05 SHORTNESS OF BREATH 03/15/2016 AR ALLEN DO Ot 786.2 COUGH 03/15/2016 AR ALLEN DO Ot 793.11 SOLITARY PULMONARY NODULE 03/15/2016 Ot 401.9 HYPERTENSION NOS 03/15/2016 Ot 414.00 CORON ATHEROSCLER NOS TYPE VESSEL, NATIV 03/15/2016 Ot 433.10 CAROTID ARTERY OCCLUSION W O CEREBRAL IN 03/15/2016 Ot 496 CHR AIRWAY OBSTRUCT NEC 03/15/2016 Ot 244.9 HYPOTHYROIDISM NOS 03/15/2016 ANGEL FLOWERS JOINT MAKER MACHINE Ot 280.9 IRON DEFIC ANEMIA NOS 03/15/2016 ANGEL FLOWERS JOINT MAKER MACHINE Ot 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 03/15/2016 ANGEL FLOWERSP Ot 585.4 CHRONIC KIDNEY DISEASE, STAGE IV (SEVERE 03/15/2016 ANGEL FLOWERSP Ot 793.11 SOLITARY PULMONARY NODULE 03/15/2016 ANGEL FLOWERSP Ot V58.69 OTH MED,LT,CURRENT USE 03/15/2016 FLOWERSANGEL Garza JOINT MAKER MACHINE Ot 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 03/15/2016 FLOWERSANGEL Garza S JOINT MAKER MACHINE Ot 585.4 CHRONIC KIDNEY DISEASE, STAGE IV (SEVERE 03/15/2016 ANGEL FLOWERS JOINT MAKER MACHINE Ot V58.69 OTH MED,LT,CURRENT USE 03/15/2016 FLOWERSANGEL Garza JOINT MAKER MACHINE Ot 486 PNEUMONIA, ORGANISM NOS 03/15/2016 FLOWERS ANGEL S JOINT MAKER MACHINE Ot 496 CHR AIRWAY OBSTRUCT NEC 03/15/2016 FLOWERS ANGEL S JOINT MAKER MACHINE Ot 784.0 HEADACHE 03/15/2016 FLOWERS, ANGEL S JOINT MAKER MACHINE Ot 786.05 SHORTNESS OF BREATH 03/15/2016 KRISTIE ANGEL S JOINT MAKER MACHINE Ot 786.2 COUGH 03/15/2016 KLARISSA MOSER TECHNICIAN TRAINEE Ot G47.33 OBSTRUCTIVE SLEEP APNEA (ADULT) (PEDIATR 03/15/2016 KLARISSA MOSER TECHNICIAN TRAINEE Ot I27.2 OTHER SECONDARY PULMONARY HYPERTENSION 03/15/2016 KLARISSA MOSER TECHNICIAN TRAINEE Ot J44.9 CHRONIC OBSTRUCTIVE PULMONARY DISEASE, U 03/15/2016 KLARISSA MOSER TECHNICIAN TRAINEE Ot R06.02 SHORTNESS OF BREATH 03/15/2016 KLARISSA MOSER TECHNICIAN TRAINEE Ot R91.1 SOLITARY PULMONARY NODULE 03/15/2016 AR ALLEN DO Ot 486 PNEUMONIA, ORGANISM NOS 03/15/2016 AR ALLEN DO Ot 496 CHR AIRWAY OBSTRUCT NEC 03/15/2016 AR ALLEN DO Ot 786.05 SHORTNESS OF BREATH 03/15/2016 AR ALLEN DO Ot 786.2 COUGH 03/15/2016 FELICITA CEDEÑO MD Ot 298.9 PSYCHOSIS NOS 03/15/2016 FELICITA CEDEÑO MD Ot 959.01 HEAD INJURY, NOS 03/15/2016 FELICITA CEDEÑO MD Ot E000.8 OTHER EXTERNAL CAUSE STATUS 03/15/2016 FELICITA CEDEÑO MD Ot E888.9 FALL NOS 03/15/2016 ANGEL FLOWERS S JOINT MAKER MACHINE Ot 280.0 CHR BLOOD LOSS ANEMIA 03/15/2016 KRISTIE ANGEL S JOINT MAKER MACHINE Ot 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 03/15/2016 ANGEL FLOWERS S JOINT MAKER MACHINE Ot 585.3 CHRONIC KIDNEY DISEASE, STAGE III (MODER 03/15/2016 ANGEL FLOWERS JOINT MAKER MACHINE Ot 599.0 URIN TRACT INFECTION NOS 03/15/2016 ANGEL FLOWERS JOINT MAKER MACHINE Ot 793.11 SOLITARY PULMONARY NODULE 03/15/2016 ANGEL FOLWERS JOINT MAKER MACHINE Ot V58.69 OT MED,LT,CURRENT USE 03/15/2016 MIRTA TORRES TECHNICIAN TRAINEE Ot 599.0 URIN TRACT INFECTION NOS 03/15/2016 JULIETTE GOMEZ MD Ot 272.4 HYPERLIPIDEMIA NEC/NOS 03/15/2016 JULIETTE GOMEZ MD Ot 401.9 HYPERTENSION NOS 03/15/2016 JULIETTE GOMEZ MD Ot 414.9 CHR ISCHEMIC HRT DIS NOS 03/15/2016 JULIETTE GOMEZ MD Ot 433.10 CAROTID ARTERY OCCLUSION W O CEREBRAL IN 03/15/2016 FELICITA CEDEÑO MD Ot E11.9 TYPE 2 DIABETES MELLITUS WITHOUT COMPLIC 03/15/2016 FELICITA CEDEÑO MD Ot Z00.00 ENCNTR FOR GENERAL ADULT MEDICAL EXAM W/ 03/15/2016 ANGEL FLOWERS JOINT MAKER MACHINE Ot D50.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 03/15/2016 ANGEL FLOWERS JOINT MAKER MACHINE Ot D63.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 03/15/2016 ANGEL FLOWERS JOINT MAKER MACHINE Ot N18.3 CHRONIC KIDNEY DISEASE, STAGE 3 (MODERAT 03/15/2016 ANGEL FLOWERS JOINT MAKER MACHINE Ot Z79.899 OTHER HALFWAY (CURRENT) DRUG THERAPY 03/15/2016 FELICITA CEDEÑO MD Ot Z12.31 ENCNTR SCREEN MAMMOGRAM FOR MALIGNANT NE 03/15/2016 DELILAH FRIAS MD Ot E03.9 HYPOTHYROIDISM, UNSPECIFIED 03/15/2016 DELILAH FRIAS MD Ot E11.8 TYPE 2 DIABETES MELLITUS WITH UNSPECIFIE 03/15/2016 ANGEL FLOWERS JOINT MAKER MACHINE Ot D50.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 03/15/2016 ANGEL FLOWERS JOINT MAKER MACHINE Ot D63.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 03/15/2016 ANGEL FLOWERS JOINT MAKER MACHINE Ot N18.3 CHRONIC KIDNEY DISEASE, STAGE 3 (MODERAT 03/15/2016 ANGEL FLOWERS JOINT MAKER MACHINE Ot Z79.899 OTHER HALFWAY (CURRENT) DRUG THERAPY 03/15/2016 FELICITA CEDEÑO MD Ot R51 HEADACHE 03/15/2016 JANA PALACIOS Ot I10 ESSENTIAL (PRIMARY) HYPERTENSION 03/15/2016 JANA PALACIOS Ot I25.10 ATHSCL HEART DISEASE OF [place] CORONARY 03/15/2016 JANA PALACIOS Ot I65.23 OCCLUSION AND STENOSIS OF [place] 03/15/2016 JANA PALACIOS Ot R07.89 OTHER CHEST PAIN 03/15/2016 MIRTA TORRES TECHNICIAN TRAINEE Ot M25.511 PAIN IN RIGHT SHOULDER 03/15/2016 MIRTA TORRES TECHNICIAN TRAINEE Ot R07.9 CHEST PAIN, UNSPECIFIED 03/15/2016 NAGEL FLOWERSP Ot D50.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 03/15/2016 ANGEL FLOWERSP Ot D63.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 03/15/2016 ANGEL FLOWERS Ot N18.3 CHRONIC KIDNEY DISEASE, STAGE 3 (MODERAT 03/15/2016 ANGEL FLOWERSP Ot Z79.899 OTHER MANPOWER DEVELOPMENT ADVISOR (CURRENT) DRUG THERAPY 03/15/2016 FELICITA CEDEÑO MD Ot E05.90 THYROTOXICOSIS, 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 THYROTOXIC 03/15/2016 FELICITA CEDEÑO MD Ot E11.9 TYPE 2 DIABETES MELLITUS WITHOUT COMPLIC 03/15/2016 FELICITA CEDEÑO MD Ot E78.4 OTHER HYPERLIPIDEMIA 03/15/2016 FELICITA CEDEÑO MD Ot R94.6 ABNORMAL RESULTS OF THYROID FUNCTION [place] 03/15/2016 TAPAN HUI MD Ot R05 COUGH 03/15/2016 TAPAN HUI MD Ot R13.19 OTHER DYSPHAGIA 03/15/2016 TAPAN HUI MD Ot R49.0 DYSPHONIA 03/15/2016 DINORA GREEN Ot D50.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 03/15/2016 DINORA GREEN Ot D63.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 03/15/2016 DINORA GREEN Ot N18.3 CHRONIC KIDNEY DISEASE, STAGE 3 (MODERAT 03/15/2016 DINORA GREEN Ot Z79.899 OTHER MANPOWER DEVELOPMENT ADVISOR (CURRENT) DRUG THERAPY 03/15/2016 TUCKER PA, DELILAH L Ot D64.9 ANEMIA, UNSPECIFIED 03/15/2016 DELILAH HARE Ot E87.1 HYPO-OSMOLALITY AND HYPONATREMIA 03/15/2016 GALA TY, FELICITA Borges Ot N39.0 URINARY TRACT INFECTION, SITE NOT SPECIF 03/15/2016 FELICITA CEDEÑO MD Ot R19.7 DIARRHEA, UNSPECIFIED 03/15/2016 GALA TY, FELICITA Borges Ot E05.90 THYROTOXICOSIS, 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 THYROTOXIC 03/15/2016 MIRTA TORRES TECHNICIAN TRAINEE Ot D72.829 ELEVATED WHITE BLOOD CELL COUNT, UNSPECI 03/15/2016 MIRTA TORRES TECHNICIAN TRAINEE Ot N39.0 URINARY TRACT INFECTION, SITE NOT SPECIF 03/15/2016 ANGEL FLOWERS JOINT MAKER MACHINE Ot D50.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 03/15/2016 ANGLE FLOWERS JOINT MAKER MACHINE Ot D63.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 03/15/2016 ANGEL FLOWERS JOINT MAKER MACHINE Ot N18.3 CHRONIC KIDNEY DISEASE, STAGE 3 (MODERAT 03/15/2016 ANGEL FLOWERS JOINT MAKER MACHINE Ot Z79.899 OTHER MANPOWER DEVELOPMENT ADVISOR (CURRENT) DRUG THERAPY 03/15/2016 DELILAH HARE Ot D64.9 ANEMIA, UNSPECIFIED 03/15/2016 DELILAH HARE Ot E87.1 HYPO-OSMOLALITY AND HYPONATREMIA 03/22/2016 DELILAH HARE Ot E87.1 HYPO-OSMOLALITY AND HYPONATREMIA 03/22/2016 NORMADINORA REYES N Ot D50.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 03/22/2016 NORMADINORA REYES N Ot D63.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 03/22/2016 NORMA, BOBAN N Ot N18.3 CHRONIC KIDNEY DISEASE, STAGE 3 (MODERAT 03/22/2016 NORMA, BOBAN N Ot Z79.899 OTHER MANPOWER DEVELOPMENT ADVISOR (CURRENT) DRUG THERAPY 03/25/2016 DELILAH HARE Ot E87.1 HYPO-OSMOLALITY AND HYPONATREMIA 03/25/2016 DELILAH HARE Ot E87.1 HYPO-OSMOLALITY AND HYPONATREMIA 03/25/2016 DELILAH HARE Ot E87.1 HYPO-OSMOLALITY AND HYPONATREMIA 03/26/2016 DELILAH HARE Ot E87.1 HYPO-OSMOLALITY AND HYPONATREMIA 03/26/2016 DELILAH HARE Ot E87.1 HYPO-OSMOLALITY AND HYPONATREMIA 03/26/2016 NORMA, DINORA N Ot D50.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 03/26/2016 NORMA DINORA N Ot D63.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 03/26/2016 DINORA GREEN N Ot N18.3 CHRONIC KIDNEY DISEASE, STAGE 3 (MODERAT 03/26/2016 DINORA GREEN N Ot Z79.899 OTHER MANPOWER DEVELOPMENT ADVISOR (CURRENT) DRUG THERAPY 03/26/2016 DELILAH HARE L Ot E87.1 HYPO-OSMOLALITY AND HYPONATREMIA 03/27/2016 DELILAH HARE L Ot E87.1 HYPO-OSMOLALITY AND HYPONATREMIA 03/29/2016 GALA TY, FELICITA Borges Ot E05.90 THYROTOXICOSIS, 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 THYROTOXIC 03/29/2016 MIRTA TORRES TECHNICIAN TRAINEE Ot D72.829 ELEVATED WHITE BLOOD CELL COUNT, UNSPECI 03/29/2016 MIRTA TORRES TECHNICIAN TRAINEE Ot N39.0 URINARY TRACT INFECTION, SITE NOT SPECIF 04/04/2016 FELICITA CEDEÑO MD Ot E05.90 THYROTOXICOSIS, 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 THYROTOXIC 04/04/2016 MIRTA TORRES TECHNICIAN TRAINEE Ot D72.829 ELEVATED WHITE BLOOD CELL COUNT, UNSPECI 04/04/2016 MIRTA TORRES TECHNICIAN TRAINEE Ot N39.0 URINARY TRACT INFECTION, SITE NOT SPECIF 04/05/2016 JANA PALACIOS Ot E78.5 HYPERLIPIDEMIA, UNSPECIFIED 04/05/2016 JANA PALACIOS Ot E78.5 HYPERLIPIDEMIA, UNSPECIFIED 04/05/2016 ANGEL FLOWERSP Ot D50.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 04/05/2016 ANGEL FLOWERS JOINT MAKER MACHINE Ot D63.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 04/05/2016 ANGEL FLOWERS Ot N18.3 CHRONIC KIDNEY DISEASE, STAGE 3 (MODERAT 04/05/2016 ANGEL FLOWERSP Ot Z79.899 OTHER HALFWAY (CURRENT) DRUG THERAPY 04/08/2016 JANA PALACIOS Ot E78.5 HYPERLIPIDEMIA, UNSPECIFIED 04/08/2016 VASQUEZ-BRIAN PA, JANA K Ot E78.5 HYPERLIPIDEMIA, UNSPECIFIED 04/08/2016 JANA PALACIOS Ot E78.5 HYPERLIPIDEMIA, UNSPECIFIED 04/08/2016 JANA PALACIOS Ot E78.5 HYPERLIPIDEMIA, UNSPECIFIED 04/08/2016 JANA PALACIOS Ot E78.5 HYPERLIPIDEMIA, UNSPECIFIED 04/09/2016 DELILAH HARE Ot D64.9 ANEMIA, UNSPECIFIED 04/09/2016 DELILAH HARE Ot E87.1 HYPO-OSMOLALITY AND HYPONATREMIA 04/10/2016 ANGEL FLOWERS JOINT MAKER MACHINE Ot D50.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 04/10/2016 ANGEL FLOWERS JOINT MAKER MACHINE Ot D63.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 04/10/2016 ANGEL FLOWERS JOINT MAKER MACHINE Ot N18.3 CHRONIC KIDNEY DISEASE, STAGE 3 (MODERAT 04/10/2016 ANGEL FLOWERS JOINT MAKER MACHINE Ot Z79.899 OTHER HALFWAY (CURRENT) DRUG THERAPY 04/10/2016 JANA PALACIOS Ot E78.5 HYPERLIPIDEMIA, UNSPECIFIED 04/12/2016 JANA PALACIOS Ot E78.5 HYPERLIPIDEMIA, UNSPECIFIED 04/12/2016 DELILAH HARE Ot E87.1 HYPO-OSMOLALITY AND HYPONATREMIA 04/16/2016 DELILAH HARE Ot E87.1 HYPO-OSMOLALITY AND HYPONATREMIA 04/18/2016 FELICITA CEDEÑO MD Ot N39.0 URINARY TRACT INFECTION, SITE NOT SPECIF 04/18/2016 FELICITA CEDEÑO MD Ot R19.7 [place], UNSPECIFIED 04/24/2016 FELICITA CEDEÑO MD Ot N39.0 URINARY TRACT INFECTION, SITE NOT SPECIF 04/24/2016 FELICITA CEDEÑO MD Ot R19.7 [place], UNSPECIFIED 04/29/2016 DINORA GREEN Ot D50.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 04/29/2016 DINORA GREEN Ot D63.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 04/29/2016 DINORA GREEN N Ot N18.3 CHRONIC KIDNEY DISEASE, STAGE 3 (MODERAT 04/29/2016 DINORA GREEN N Ot Z79.899 OTHER MANPOWER DEVELOPMENT ADVISOR (CURRENT) DRUG THERAPY 05/03/2016 DINORA GREEN Ot D50.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 05/03/2016 NORMADINORA REYES Ot D63.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 05/03/2016 NORMADINORA REYES Ot N18.3 CHRONIC KIDNEY DISEASE, STAGE 3 (MODERAT 05/03/2016 NORMA DINORA Lance Ot Z79.899 OTHER MANPOWER DEVELOPMENT ADVISOR (CURRENT) DRUG THERAPY 05/03/2016 JANA PALACIOS Ot E78.5 HYPERLIPIDEMIA, UNSPECIFIED 05/10/2016 JANA PALACIOS Ot E78.5 HYPERLIPIDEMIA, UNSPECIFIED 05/28/2016 GALA TY, FRANKLIN Kellogg Ot 787.02 NAUSEA ALONE 05/28/2016 Ot E78.2 MIXED HYPERLIPIDEMIA 05/28/2016 Ot E78.2 MIXED HYPERLIPIDEMIA 05/28/2016 Ot E78.2 MIXED HYPERLIPIDEMIA 05/28/2016 Ot E78.2 MIXED HYPERLIPIDEMIA 05/29/2016 FELICITA CEDEÑO MD Ot N39.0 URINARY TRACT INFECTION, SITE NOT SPECIF 05/29/2016 FELICITA CEDEÑO MD Ot R19.7 DIARRHEA, UNSPECIFIED 05/30/2016 FELICITA CEDEÑO MD, Ot N39.0 URINARY TRACT INFECTION, SITE NOT SPECIF 05/30/2016 FELICITA CEDEÑO MD Ot R19.7 DIARRHEA, UNSPECIFIED 06/04/2016 Ot E78.2 MIXED HYPERLIPIDEMIA 06/04/2016 Ot E78.2 MIXED HYPERLIPIDEMIA 06/13/2016 FELICITA CEDEÑO MD Ot E11.9 TYPE 2 DIABETES MELLITUS WITHOUT COMPLIC 06/13/2016 FELICITA CEDEÑO MD Ot E78.4 OTHER HYPERLIPIDEMIA 06/13/2016 FELICITA CEDEÑO MD Ot I10 ESSENTIAL (PRIMARY) HYPERTENSION 06/13/2016 FELICITA CEDEÑO MD Ot Z79.899 OTHER MANPOWER DEVELOPMENT ADVISOR (CURRENT) DRUG THERAPY 06/14/2016 Ot E78.2 MIXED HYPERLIPIDEMIA 06/18/2016 FELICITA CEDEÑO MD Ot E11.9 TYPE 2 DIABETES MELLITUS WITHOUT COMPLIC 06/18/2016 FELICITA CEDEÑO MD Ot E78.4 OTHER HYPERLIPIDEMIA 06/18/2016 FELICITA CEDEÑO MD Ot I10 ESSENTIAL (PRIMARY) HYPERTENSION 06/18/2016 FELICITA CEDEÑO MD Ot Z79.899 OTHER HALFWAY (CURRENT) DRUG THERAPY 06/18/2016 DINORA GREEN Ot D50.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 06/18/2016 DINORA GREEN N Ot D63.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 06/18/2016 DINORA GREEN N Ot N18.3 CHRONIC KIDNEY DISEASE, STAGE 3 (MODERAT 06/18/2016 DINORA GREEN N Ot Z79.899 OTHER MANPOWER DEVELOPMENT ADVISOR (CURRENT) DRUG THERAPY 06/19/2016 Ot E78.2 MIXED HYPERLIPIDEMIA 06/24/2016 DINORA GREEN Ot D50.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 06/24/2016 DINORA GREEN N Ot D63.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 06/24/2016 DINORA GREEN N Ot N18.3 CHRONIC KIDNEY DISEASE, STAGE 3 (MODERAT 06/24/2016 DINORA GREEN N Ot Z79.899 OTHER MANPOWER DEVELOPMENT ADVISOR (CURRENT) DRUG THERAPY 06/26/2016 FELICITA CEDEÑO MD, Ot E11.9 TYPE 2 DIABETES MELLITUS WITHOUT COMPLIC 06/26/2016 FELICITA CEDEÑO MD Ot E78.4 OTHER HYPERLIPIDEMIA 06/26/2016 FELICITA CEDEÑO MD Ot I10 ESSENTIAL (PRIMARY) HYPERTENSION 06/26/2016 FELICITA CEDEÑO MD Ot Z79.899 OTHER MANPOWER DEVELOPMENT ADVISOR (CURRENT) DRUG THERAPY 06/26/2016 FELICITA CEDEÑO MD Ot E11.9 TYPE 2 DIABETES MELLITUS WITHOUT COMPLIC 06/26/2016 FELICITA CEDEÑO MD Ot E78.4 OTHER HYPERLIPIDEMIA 06/26/2016 FELICITA CEDEÑO MD Ot I10 ESSENTIAL (PRIMARY) HYPERTENSION 06/26/2016 FELICITA CEDEÑO MD Ot Z79.899 OTHER MANPOWER DEVELOPMENT ADVISOR (CURRENT) DRUG THERAPY 06/26/2016 FELICITA CEDEÑO MD, Ot E11.9 TYPE 2 DIABETES MELLITUS WITHOUT COMPLIC 06/26/2016 FELICITA CEDEÑO MD Ot E78.4 OTHER HYPERLIPIDEMIA 06/26/2016 FELICITA CEDEÑO MD Ot I10 ESSENTIAL (PRIMARY) HYPERTENSION 06/26/2016 FELICITA CEDEÑO MD Ot Z79.899 OTHER MANPOWER DEVELOPMENT ADVISOR (CURRENT) DRUG THERAPY 06/26/2016 FELICITA CEDEÑO MD, Ot E11.9 TYPE 2 DIABETES MELLITUS WITHOUT COMPLIC 06/26/2016 FELICITA CEDEÑO MD Ot E78.4 OTHER HYPERLIPIDEMIA 06/26/2016 FELICITA CEDEÑO MD Ot I10 ESSENTIAL (PRIMARY) HYPERTENSION 06/26/2016 FELICITA CEDEÑO MD Ot Z79.899 OTHER MANPOWER DEVELOPMENT ADVISOR (CURRENT) DRUG THERAPY 06/28/2016 AR ALLEN DO Ot J44.9 CHRONIC OBSTRUCTIVE PULMONARY DISEASE, U 06/28/2016 AR ALLEN DO Ot R05 COUGH 06/28/2016 AR ALLEN DO Ot R91.1 SOLITARY PULMONARY NODULE 06/28/2016 AR ALLEN DO Ot J44.9 CHRONIC OBSTRUCTIVE PULMONARY DISEASE, U 06/28/2016 AR ALLEN DO Ot R05 COUGH 06/28/2016 AR ALLEN DO Ot R91.1 SOLITARY PULMONARY NODULE 07/02/2016 AR ALLEN DO Ot J44.9 CHRONIC OBSTRUCTIVE PULMONARY DISEASE, U 07/02/2016 AR ALLEN DO Ot R05 COUGH 07/02/2016 AR ALLEN DO Ot R91.1 SOLITARY PULMONARY NODULE 07/03/2016 AR ALLEN DO Ot J44.9 CHRONIC OBSTRUCTIVE PULMONARY DISEASE, U 07/03/2016 AR ALLEN DO Ot R05 COUGH 07/03/2016 AR ALLEN DO Ot R91.1 SOLITARY PULMONARY NODULE 07/05/2016 FELICITA CEDEÑO MD Ot E11.9 TYPE 2 DIABETES MELLITUS WITHOUT COMPLIC 07/05/2016 FELICITA CEDEÑO MD Ot E78.4 OTHER HYPERLIPIDEMIA 07/05/2016 FELICITA CEDEÑO MD Ot I10 ESSENTIAL (PRIMARY) HYPERTENSION 07/05/2016 FELICITA CEDEÑO MD Ot Z79.899 OTHER HALFWAY (CURRENT) DRUG THERAPY 07/09/2016 FELICITA CEDEÑO MD Ot E11.9 TYPE 2 DIABETES MELLITUS WITHOUT COMPLIC 07/09/2016 FELICITA CEDEÑO MD Ot E78.4 OTHER HYPERLIPIDEMIA 07/09/2016 FELICITA CEDEÑO MD Ot I10 ESSENTIAL (PRIMARY) HYPERTENSION 07/09/2016 FELICITA CEDEÑO MD Ot Z79.899 OTHER HALFWAY (CURRENT) DRUG THERAPY 07/15/2016 AR ALLEN DO Ot G47.33 OBSTRUCTIVE SLEEP APNEA (ADULT) (PEDIATR 07/15/2016 AR ALLEN DO Ot J44.9 CHRONIC OBSTRUCTIVE PULMONARY DISEASE, U 07/15/2016 AR ALLEN DO Ot R05 COUGH 07/15/2016 AR ALLEN DO Ot R06.02 SHORTNESS OF BREATH 07/19/2016 AR ALLEN DO Ot J44.9 CHRONIC OBSTRUCTIVE PULMONARY DISEASE, U 07/19/2016 AR ALLEN DO Ot R05 COUGH 07/19/2016 AR ALLEN DO Ot R91.1 SOLITARY PULMONARY NODULE 07/24/2016 AR ALLEN DO Ot J44.9 CHRONIC OBSTRUCTIVE PULMONARY DISEASE, U 07/24/2016 AR ALLEN DO Ot R05 COUGH 07/24/2016 AR ALLEN DO Ot R91.1 SOLITARY PULMONARY NODULE 07/28/2016 MIRTA TORRES APRN Ot 599.0 URIN TRACT INFECTION NOS 07/31/2016 NORMADINORA REYES N Ot D50.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 07/31/2016 NORMADINORA N Ot D63.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 07/31/2016 NORMADINORA N Ot N18.3 CHRONIC KIDNEY DISEASE, STAGE 3 (MODERAT 07/31/2016 NORMADINORA N Ot Z79.899 OTHER HALFWAY (CURRENT) DRUG THERAPY 08/01/2016 NORMADINORA REYES N Ot D50.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 08/01/2016 NORMAJOSIEAN N Ot D63.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 08/01/2016 NORMADINORA N Ot N18.3 CHRONIC KIDNEY DISEASE, STAGE 3 (MODERAT 08/01/2016 NORMAJOSIEAN N Ot Z79.899 OTHER MANPOWER DEVELOPMENT ADVISOR (CURRENT) DRUG THERAPY 08/05/2016 AR ALLEN DO Ot G47.33 OBSTRUCTIVE SLEEP APNEA (ADULT) (PEDIATR 08/05/2016 AR ALLEN DO Ot J44.9 CHRONIC OBSTRUCTIVE PULMONARY DISEASE, U 08/05/2016 AR ALLEN DO Ot R05 COUGH 08/05/2016 AR ALLEN DO Ot R06.02 SHORTNESS OF BREATH 08/07/2016 AR ALLEN DO Ot G47.33 OBSTRUCTIVE SLEEP APNEA (ADULT) (PEDIATR 08/07/2016 AR ALLEN DO Ot J44.9 CHRONIC OBSTRUCTIVE PULMONARY DISEASE, U 08/07/2016 AR ALLEN DO Ot R05 COUGH 08/07/2016 AR ALLEN DO Ot R06.02 SHORTNESS OF BREATH 08/08/2016 NORMADINORA REYES N Ot D50.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 08/08/2016 NORMAJOSIE REYESAN N Ot D63.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 08/08/2016 DINORA GREEN N Ot N18.3 CHRONIC KIDNEY DISEASE, STAGE 3 (MODERAT 08/08/2016 DINORA GREEN N Ot Z79.899 OTHER MANPOWER DEVELOPMENT ADVISOR (CURRENT) DRUG THERAPY 08/09/2016 DINORA GREEN N Ot D50.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 08/09/2016 NORMA, BOBRACHELLE N Ot D63.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 08/09/2016 NORMA BOBRACHELLE N Ot N18.3 CHRONIC KIDNEY DISEASE, STAGE 3 (MODERAT 08/09/2016 NORMA, BOBAN N Ot Z79.899 OTHER MANPOWER DEVELOPMENT ADVISOR (CURRENT) DRUG THERAPY 08/28/2016 GALA TY, FRANKLIN Kellogg Ot 787.02 NAUSEA ALONE 08/28/2016 MIRTA TORRES APRN Ot 599.0 URIN TRACT INFECTION NOS 10/17/2016 FELICITA CEDEÑO MD Ot Z12.31 ENCNTR SCREEN MAMMOGRAM FOR MALIGNANT NE 10/17/2016 FELICITA CEDEÑO MD Ot Z12.31 ENCNTR SCREEN MAMMOGRAM FOR MALIGNANT NE 10/17/2016 FELICITA CEDEÑO MD Ot Z12.31 ENCNTR SCREEN MAMMOGRAM FOR MALIGNANT NE 10/17/2016 FELICITA CEDEÑO MD Ot Z12.31 ENCNTR SCREEN MAMMOGRAM FOR MALIGNANT NE 10/23/2016 FELICITA CEDEÑO MD Ot Z12.31 ENCNTR SCREEN MAMMOGRAM FOR MALIGNANT NE 10/31/2016 FELICITA CEDEÑO MD Ot E11.9 TYPE 2 DIABETES MELLITUS WITHOUT COMPLIC 10/31/2016 FELICITA CEDEÑO MD Ot E11.9 TYPE 2 DIABETES MELLITUS WITHOUT COMPLIC 10/31/2016 FELICITA CEDEÑO MD, Ot E11.9 TYPE 2 DIABETES MELLITUS WITHOUT COMPLIC 11/01/2016 FELICITA CEDEÑO MD, Ot E11.9 TYPE 2 DIABETES MELLITUS WITHOUT COMPLIC 11/01/2016 FELICITA CEDEÑO MD Ot E78.5 HYPERLIPIDEMIA, UNSPECIFIED 11/01/2016 FELICITA CEDEÑO MD Ot I10 ESSENTIAL (PRIMARY) HYPERTENSION 11/01/2016 FELICITA CEDEÑO MD, Ot Z79.899 OTHER MANPOWER DEVELOPMENT ADVISOR (CURRENT) DRUG THERAPY 11/04/2016 ANGEL FLOWERS Ot R26.81 UNSTEADINESS ON FEET 11/04/2016 ANGEL FLOWERSP Ot R41.82 ALTERED MENTAL STATUS, UNSPECIFIED 11/06/2016 DINORA GREEN N Ot D50.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 11/06/2016 NORMA BOBAN N Ot D63.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 11/06/2016 DINORA GREEN N Ot N18.3 CHRONIC KIDNEY DISEASE, STAGE 3 (MODERAT 11/06/2016 NORMA, BOBAN N Ot R82.99 OTHER ABNORMAL FINDINGS IN URINE 11/06/2016 NORMA, BOBAN N Ot Z79.899 OTHER MANPOWER DEVELOPMENT ADVISOR (CURRENT) DRUG THERAPY 11/07/2016 DINORA GREEN N Ot D50.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 11/07/2016 NORMA, BOBAN N Ot D63.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 11/07/2016 NORMA BOBAN N Ot N18.3 CHRONIC KIDNEY DISEASE, STAGE 3 (MODERAT 11/07/2016 NORMA BOBAN N Ot R82.99 OTHER ABNORMAL FINDINGS IN URINE 11/07/2016 DINORA GREEN N Ot Z79.899 OTHER MANPOWER DEVELOPMENT ADVISOR (CURRENT) DRUG THERAPY 11/07/2016 GALA TY, FELICITA Borges Ot Z12.31 ENCNTR SCREEN MAMMOGRAM FOR MALIGNANT NE 11/12/2016 FELICITA CEDEÑO MD Ot Z12.31 ENCNTR SCREEN MAMMOGRAM FOR MALIGNANT NE 11/15/2016 DINORA GREEN N Ot D50.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 11/15/2016 NORMA, BOBAN N Ot D63.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 11/15/2016 DINORA GREEN N Ot N18.3 CHRONIC KIDNEY DISEASE, STAGE 3 (MODERAT 11/15/2016 NORMA, BOBAN N Ot Z79.899 OTHER MANPOWER DEVELOPMENT ADVISOR (CURRENT) DRUG THERAPY 11/25/2016 GALA TY, FRANKLIN A Ot 787.02 NAUSEA ALONE 11/26/2016 ANGEL FLOWERS JOINT MAKER MACHINE Ot R26.81 UNSTEADINESS ON FEET 11/26/2016 ANGEL FLOWERS JOINT MAKER MACHINE Ot R41.82 ALTERED MENTAL STATUS, UNSPECIFIED 12/02/2016 ANGEL FLOWERS JOINT MAKER MACHINE Ot R26.81 UNSTEADINESS ON FEET 12/02/2016 ANGEL FLOWERS JOINT MAKER MACHINE Ot R41.82 ALTERED MENTAL STATUS, UNSPECIFIED 12/11/2016 GALA TY, FELICITA Borges Ot E11.9 TYPE 2 DIABETES MELLITUS WITHOUT COMPLIC 12/11/2016 FELICITA CEDEÑO MD Ot E78.5 HYPERLIPIDEMIA, UNSPECIFIED 12/11/2016 FELICITA CEDEÑO MD Ot I10 ESSENTIAL (PRIMARY) HYPERTENSION 12/11/2016 FELICITA CEDEÑO MD Ot Z79.899 OTHER MANPOWER DEVELOPMENT ADVISOR (CURRENT) DRUG THERAPY 12/26/2016 MIRTA TORRES TECHNICIAN TRAINEE Ot 599.0 URIN TRACT INFECTION NOS 01/06/2017 NORMA, BOBAN N Ot D50.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 01/06/2017 NORMA, BOBAN N Ot D63.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 01/06/2017 NORMA, BOBAN N Ot N18.3 CHRONIC KIDNEY DISEASE, STAGE 3 (MODERAT 01/06/2017 NORMA, BOBAN N Ot Z79.899 OTHER MANPOWER DEVELOPMENT ADVISOR (CURRENT) DRUG THERAPY 01/09/2017 NORMA, BOBAN N Ot D50.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 01/09/2017 NORMA, BOBAN N Ot D63.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 01/09/2017 NORMA, BOBAN N Ot N18.3 CHRONIC KIDNEY DISEASE, STAGE 3 (MODERAT 01/09/2017 NORMA, BOBAN N Ot Z79.899 OTHER MANPOWER DEVELOPMENT ADVISOR (CURRENT) DRUG THERAPY 01/25/2017 Ot 250.00 DIAB ЮЛИЯ WO COMPL, TYPE II OR UNSPEC TY 01/25/2017 Ot 272.4 HYPERLIPIDEMIA NEC/NOS 02/12/2017 NORMA, BOBAN N Ot D50.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 02/12/2017 NORMA, BOBAN N Ot D63.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 02/12/2017 NORMA, BOBAN N Ot N18.3 CHRONIC KIDNEY DISEASE, STAGE 3 (MODERAT 02/12/2017 NORMA, BOBAN N Ot Z79.899 OTHER HALFWAY (CURRENT) DRUG THERAPY 02/12/2017 MIRTA TORRES TECHNICIAN TRAINEE Ot S89.92XA UNSPECIFIED INJURY OF LEFT LOWER LEG, IN 02/12/2017 MIRTA TORRES TECHNICIAN TRAINEE Ot X58.XXXA EXPOSURE TO OTHER SPECIFIED FACTORS, INI 02/12/2017 MIRTA TORRES TECHNICIAN TRAINEE Ot Y99.8 OTHER EXTERNAL CAUSE STATUS 02/12/2017 MIRTA TORRES TECHNICIAN TRAINEE Ot Z96.652 PRESENCE OF LEFT ARTIFICIAL KNEE JOINT 02/14/2017 FELICITA CEDEÑO MD, Ot E11.9 TYPE 2 DIABETES MELLITUS WITHOUT COMPLIC 02/14/2017 FELICITA CEDEÑO MD, Ot E78.5 HYPERLIPIDEMIA, UNSPECIFIED 02/14/2017 FELICITA CEDEÑO MD, Ot I10 ESSENTIAL (PRIMARY) HYPERTENSION 02/14/2017 FELICITA CEDEÑO MD, Ot Z79.899 OTHER MANPOWER DEVELOPMENT ADVISOR (CURRENT) DRUG THERAPY 02/14/2017 DINORA GREEN Ot D50.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 02/14/2017 DINORA GREEN Ot D63.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 02/14/2017 DINORA GREEN Ot N18.3 CHRONIC KIDNEY DISEASE, STAGE 3 (MODERAT 02/14/2017 DINORA GREEN Ot Z79.899 OTHER HALFWAY (CURRENT) DRUG THERAPY 02/17/2017 MIRTA TORRES TECHNICIAN TRAINEE Ot S89.92XA UNSPECIFIED INJURY OF LEFT LOWER LEG, IN 02/17/2017 MIRTA TORRES TECHNICIAN TRAINEE Ot X58.XXXA EXPOSURE TO OTHER SPECIFIED FACTORS, INI 02/17/2017 MIRTA TORRES TECHNICIAN TRAINEE Ot Y99.8 OTHER EXTERNAL CAUSE STATUS 02/17/2017 MIRTA TORRES TECHNICIAN TRAINEE Ot Z96.652 PRESENCE OF LEFT ARTIFICIAL KNEE JOINT 02/19/2017 FELICITA CEDEÑO MD, Ot E11.9 TYPE 2 DIABETES MELLITUS WITHOUT COMPLIC 02/19/2017 FELICITA CEDEÑO MD, Ot E78.5 HYPERLIPIDEMIA, UNSPECIFIED 02/19/2017 FELICITA CEDEÑO MD, Ot I10 ESSENTIAL (PRIMARY) HYPERTENSION 02/19/2017 FELICITA CEDEÑO MD Ot Z79.899 OTHER MANPOWER DEVELOPMENT ADVISOR (CURRENT) DRUG THERAPY 02/19/2017 FELICITA CEDEÑO MD, Ot E11.9 TYPE 2 DIABETES MELLITUS WITHOUT COMPLIC 02/19/2017 FELICITA CEDEÑO MD, Ot E78.5 HYPERLIPIDEMIA, UNSPECIFIED 02/19/2017 FELICITA CEDEÑO MD, Ot I10 ESSENTIAL (PRIMARY) HYPERTENSION 02/19/2017 FELICITA CEDEÑO MD, Ot Z79.899 OTHER HALFWAY (CURRENT) DRUG THERAPY 02/19/2017 FELIICTA CEDEÑO MD, Ot E11.9 TYPE 2 DIABETES MELLITUS WITHOUT COMPLIC 02/19/2017 FELICITA CEDEÑO MD, Ot E78.5 HYPERLIPIDEMIA, UNSPECIFIED 02/19/2017 FELICITA CEDEÑO MD, Ot I10 ESSENTIAL (PRIMARY) HYPERTENSION 02/19/2017 FELICITA CEDEÑO MD, Ot Z79.899 OTHER HALFWAY (CURRENT) DRUG THERAPY 02/19/2017 FELICITA CEDEÑO MD, Ot E11.9 TYPE 2 DIABETES MELLITUS WITHOUT COMPLIC 02/19/2017 FELICITA CEDEÑO MD, Ot E78.5 HYPERLIPIDEMIA, UNSPECIFIED 02/19/2017 FELICITA CEDEÑO MD, Ot I10 ESSENTIAL (PRIMARY) HYPERTENSION 02/19/2017 FELICITA CEDEÑO MD, Ot Z79.899 OTHER MANPOWER DEVELOPMENT ADVISOR (CURRENT) DRUG THERAPY 02/19/2017 FELICITA CEDEÑO MD, Ot E11.9 TYPE 2 DIABETES MELLITUS WITHOUT COMPLIC 02/19/2017 FELICITA CEDEÑO MD, Ot E78.5 HYPERLIPIDEMIA, UNSPECIFIED 02/19/2017 FELICITA CEDEÑO MD, Ot I10 ESSENTIAL (PRIMARY) HYPERTENSION 02/19/2017 FELICITA CEDEÑO MD, Ot Z79.899 OTHER HALFWAY (CURRENT) DRUG THERAPY 02/19/2017 FELICITA CEDEÑO MD, Ot E11.9 TYPE 2 DIABETES MELLITUS WITHOUT COMPLIC 02/19/2017 FELICITA CEDEÑO MD, Ot E78.5 HYPERLIPIDEMIA, UNSPECIFIED 02/19/2017 FELICITA CEDEÑO MD, Ot I10 ESSENTIAL (PRIMARY) HYPERTENSION 02/19/2017 FELICITA CEDEÑO MD, Ot Z79.899 OTHER MANPOWER DEVELOPMENT ADVISOR (CURRENT) DRUG THERAPY 02/25/2017 GALA TY, FRANKLIN Kellogg Ot 787.02 NAUSEA ALONE 02/25/2017 MIRTA TORRES TECHNICIAN TRAINEE Ot 599.0 URIN TRACT INFECTION NOS 03/05/2017 MIRTA TORRES TECHNICIAN TRAINEE Ot S89.92XA UNSPECIFIED INJURY OF LEFT LOWER LEG, IN 03/05/2017 MIRTA TORRES TECHNICIAN TRAINEE Ot X58.XXXA EXPOSURE TO OTHER SPECIFIED FACTORS, INI 03/05/2017 MIRTA TORRES TECHNICIAN TRAINEE Ot Y99.8 OTHER EXTERNAL CAUSE STATUS 03/05/2017 MIRTA TORRES TECHNICIAN TRAINEE Ot Z96.652 PRESENCE OF LEFT ARTIFICIAL KNEE JOINT 03/06/2017 FELICITA CEDEÑO MD Ot E11.9 TYPE 2 DIABETES MELLITUS WITHOUT COMPLIC 03/06/2017 FELICITA CEDEÑO MD Ot E78.5 HYPERLIPIDEMIA, UNSPECIFIED 03/06/2017 FELICITA CEDEÑO MD, Ot I10 ESSENTIAL (PRIMARY) HYPERTENSION 03/06/2017 FELICITA CEDEÑO MD, Ot Z79.899 OTHER HALFWAY (CURRENT) DRUG THERAPY 03/11/2017 BRIANJAMIEN Blake TECHNICIAN TRAINEE Ot S89.92XA UNSPECIFIED INJURY OF LEFT LOWER LEG, IN 03/11/2017 BRIAN MIRTA Lozano APRN Ot X58.XXXA EXPOSURE TO OTHER SPECIFIED FACTORS, INI 03/11/2017 BRIAN MIRTA Lozano APRN Ot Y99.8 OTHER EXTERNAL CAUSE STATUS 03/11/2017 BRIAN MIRTA Lozano TECHNICIAN TRAINEE Ot Z96.652 PRESENCE OF LEFT ARTIFICIAL KNEE JOINT 03/11/2017 FELICITA CEDEÑO MD, Ot E11.9 TYPE 2 DIABETES MELLITUS WITHOUT COMPLIC 03/11/2017 FELICITA CEDEÑO MD, Ot E78.5 HYPERLIPIDEMIA, UNSPECIFIED 03/11/2017 FELICITA CEDEÑO MD, Ot I10 ESSENTIAL (PRIMARY) HYPERTENSION 03/11/2017 FELICITA CEDEÑO MD, Ot Z79.899 OTHER MANPOWER DEVELOPMENT ADVISOR (CURRENT) DRUG THERAPY 04/05/2017 SUHA TAYLOR MD, Ot A41.9 SEPSIS, UNSPECIFIED ORGANISM 04/05/2017 SUHA TAYLOR MD, Ot B96.1 KLEBSIELLA PNEUMONIAE THE CAUSE OF DI 04/05/2017 SUHA TAYLOR MD, Ot D63.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 04/05/2017 SUHA TAYLOR MD, Ot E03.9 HYPOTHYROIDISM, UNSPECIFIED 04/05/2017 SUHA TAYLOR MD, Ot E11.9 TYPE 2 DIABETES MELLITUS WITHOUT COMPLIC 04/05/2017 SUHA TAYLOR MD, Ot 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 CHRONIC KIDNEY DISEASE W ST 04/05/2017 SUHA TAYLOR MD, Ot I25.10 ATHSCL HEART DISEASE OF [place] CORONARY 04/05/2017 SUHA TAYLOR MD, Ot J44.9 CHRONIC OBSTRUCTIVE PULMONARY DISEASE, U 04/05/2017 SUHA TAYLOR MD, Ot K21.9 GASTRO-ESOPHAGEAL REFLUX DISEASE WITHOUT 04/05/2017 SUHA TAYLOR MD, Ot K44.9 DIAPHRAGMATIC HERNIA WITHOUT OBSTRUCTION 04/05/2017 SUHA TAYLOR MD, Ot N17.9 ACUTE KIDNEY FAILURE, UNSPECIFIED 04/05/2017 SUAH TAYLOR MD, Ot N18.9 CHRONIC KIDNEY DISEASE, UNSPECIFIED 04/05/2017 SUHA TAYLOR MD, Ot N30.90 CYSTITIS, UNSPECIFIED WITHOUT HEMATURIA 04/05/2017 CLAUDIA TY, SUHA Benitez Ot R65.20 SEVERE SEPSIS WITHOUT SEPTIC SHOCK 04/05/2017 CLAUDIA TY, SUHA Benitez Ot S00.83XA CONTUSION OF OTHER PART OF HEAD, INITIAL 04/05/2017 CLAUDIA TY, SUHA Benitez Ot W19.XXXA UNSPECIFIED FALL, INITIAL ENCOUNTER 04/05/2017 CLAUDIA TY, SUHA Benitez Ot Y92.009 [facility] (PRIVATE 04/05/2017 CLAUDIA TY, SUHA Benitez Ot Z95.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 04/26/2017 NORMA, BOBAN N Ot N18.3 CHRONIC KIDNEY DISEASE, STAGE 3 (MODERAT 04/26/2017 NORMA, BOBAN N Ot Z79.899 OTHER MANPOWER DEVELOPMENT ADVISOR (CURRENT) DRUG THERAPY 05/02/2017 NORMA, BOBAN N Ot D63.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 05/02/2017 NORMA, BOBAN N Ot N18.3 CHRONIC KIDNEY DISEASE, STAGE 3 (MODERAT 05/02/2017 NORMA, BOBAN N Ot Z79.899 OTHER HALFWAY (CURRENT) DRUG THERAPY 06/20/2017 NORMA, BOBAN N Ot D63.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 06/20/2017 NORMA, BOBAN N Ot N18.3 CHRONIC KIDNEY DISEASE, STAGE 3 (MODERAT 06/20/2017 NORMA, BOBAN N Ot Z79.899 OTHER MANPOWER DEVELOPMENT ADVISOR (CURRENT) DRUG THERAPY 06/24/2017 NORMA, BOBAN N Ot D63.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 06/24/2017 NORMA, BOBAN N Ot N18.3 CHRONIC KIDNEY DISEASE, STAGE 3 (MODERAT 06/24/2017 NORMA, BOBAN N Ot Z79.899 OTHER MANPOWER DEVELOPMENT ADVISOR (CURRENT) DRUG THERAPY 07/30/2017 NORMA, BOBAN N Ot D63.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 07/30/2017 NORMA, BOBAN N Ot N18.3 CHRONIC KIDNEY DISEASE, STAGE 3 (MODERAT 07/30/2017 NORMA, BOBAN N Ot Z79.899 OTHER HALFWAY (CURRENT) DRUG THERAPY 07/31/2017 NORMA, BOBAN N Ot D63.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 07/31/2017 NORMA BOBAN N Ot N18.3 CHRONIC KIDNEY DISEASE, STAGE 3 (MODERAT 07/31/2017 NORMA BOBAN N Ot Z79.899 OTHER MANPOWER DEVELOPMENT ADVISOR (CURRENT) DRUG THERAPY 08/06/2017 NORMA, BOBRACHELLE N Ot D63.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 08/06/2017 NORMA BOBAN N Ot N18.3 CHRONIC KIDNEY DISEASE, STAGE 3 (MODERAT 08/06/2017 NORMA BOBAN N Ot Z79.899 OTHER MANPOWER DEVELOPMENT ADVISOR (CURRENT) DRUG THERAPY 08/07/2017 SHANTISINA CONTRERASINE E TECHNICIAN TRAINEE Ot E27.9 DISORDER OF ADRENAL GLAND, UNSPECIFIED 08/07/2017 SHANTI KLARISSA E TECHNICIAN TRAINEE Ot I25.10 ATHSCL HEART DISEASE OF [place] CORONARY 08/07/2017 SINA MOSERINE E TECHNICIAN TRAINEE Ot I27.20 PULMONARY HYPERTENSION, UNSPECIFIED 08/07/2017 SINA MOSERINE E TECHNICIAN TRAINEE Ot I51.7 CARDIOMEGALY 08/07/2017 SINA MOSERINE Kristin TECHNICIAN TRAINEE Ot J30.9 ALLERGIC RHINITIS, UNSPECIFIED 08/07/2017 SHANTI, KLARISSA E TECHNICIAN TRAINEE Ot R91.8 OTHER NONSPECIFIC ABNORMAL FINDING OF KIM 09/02/2017 SINA MOSERINE Kristin TECHNICIAN TRAINEE Ot E27.9 DISORDER OF ADRENAL GLAND, UNSPECIFIED 09/02/2017 SINA MOSERINE E TECHNICIAN TRAINEE Ot I25.10 ATHSCL HEART DISEASE OF [place] CORONARY 09/02/2017 SINA MOSERINE E TECHNICIAN TRAINEE Ot I27.20 PULMONARY HYPERTENSION, UNSPECIFIED 09/02/2017 SHANTI KLARISSA E TECHNICIAN TRAINEE Ot I51.7 CARDIOMEGALY 09/02/2017 SINA MOSERINE E TECHNICIAN TRAINEE Ot J30.9 ALLERGIC RHINITIS, UNSPECIFIED 09/02/2017 SHANTI KLARISSA E TECHNICIAN TRAINEE Ot R91.8 OTHER NONSPECIFIC ABNORMAL FINDING OF KIM 09/02/2017 Ot 787.91 DIARRHEA 09/02/2017 Ot 496 CHR AIRWAY OBSTRUCT NEC 09/02/2017 Ot 786.05 SHORTNESS OF BREATH 09/02/2017 Ot 786.2 COUGH 09/02/2017 GALA TY, FELICITA Borges Ot N39.0 URINARY TRACT INFECTION, SITE NOT SPECIF 09/02/2017 FELICITA CEDEÑO MD Ot R19.7 DI[place]A, UNSPECIFIED 09/02/2017 FELICITA CEDEÑO MD Ot E11.8 TYPE 2 DIABETES MELLITUS WITH UNSPECIFIE 09/02/2017 Ot 787.91 DIARRHEA 09/02/2017 Ot 496 CHR AIRWAY OBSTRUCT NEC 09/02/2017 Ot 786.05 SHORTNESS OF BREATH 09/02/2017 Ot 786.2 COUGH 09/02/2017 FELICITA CEDEÑO MD Ot N39.0 URINARY TRACT INFECTION, SITE NOT SPECIF 09/02/2017 FELICITA CEDEÑO MD Ot R19.7 [place], UNSPECIFIED 09/02/2017 FELICITA CEDEÑO MD Ot E11.8 TYPE 2 DIABETES MELLITUS WITH UNSPECIFIE Procedures Code Description Performed By Performed On 37.22 09/04/2012 88.53 09/04/2012 88.56 09/04/2012 Results Test Result Range Bacterial urine culture - 02/29/16 18:35 Bacterial urine culture [id number] NRG COLONY COUNT >100,000/ML NR FTX;REPORTABLE SENSITIVITY REPORTED 03/03/16 11:45 NRG URINE CULTURE RESULTS <10,000/ML [facility] Bacterial susceptibility panel - 02/29/16 18:35 Gentamicin susceptibility test by minimum inhibitory concentration < = NRG Trimethoprim/sulfamethoxazole susceptibility test by minimum inhibitoryconcentration <= NRG Ampicillin susceptibility test by minimum inhibitory concentration 8 NRG Tobramycin susceptibility test by minimum inhibitory concentration < = NRG Cefazolin susceptibility test by minimum inhibitory concentration < = NRG Ceftriaxone susceptibility test by minimum inhibitory concentration <= NRG Ampicillin/sulbactam susceptibility test by minimum inhibitory concentration 4 NRG Piperacillin/tazobactam susceptibility test by minimum inhibitory concentration <= NRG Ciprofloxacin susceptibility test by minimum inhibitory concentration <= NRG Meropenem susceptibility test by minimum inhibitory concentration < = NRG Nitrofurantoin susceptibility test by minimum inhibitory concentration <= NRG Aztreonam susceptibility test by minimum inhibitory concentration < = NRG Extended spectrum beta lactamase (ESBL) producing bacteria susceptibility test by minimum inhibitory concentration - [facility] Clostridium difficile detection - 03/03/16 20:30 C DIFF MOLECULAR RESULT Negative for toxigenic C diff by DNA amplification [facility] Whole blood basic metabolic panel - 03/07/16 11:13 Serum or plasma sodium measurement (moles/volume) 124 mmol/L 135-145 Serum or plasma potassium measurement (moles/volume) 4.9 mmol/L 3.6-5.0 Serum or plasma chloride measurement (moles/volume) 98 mmol/L 98-107 Carbon dioxide 17 mmol/L 21-32 Serum or plasma anion gap determination (moles/volume) 9 mmol/L 5-14 Serum or plasma urea nitrogen measurement (mass/volume) 15 mg/dL 7-18 Serum or plasma creatinine measurement (mass/volume) 1.26 mg/dL 0.60-1.30 Serum or plasma urea nitrogen/creatinine mass ratio 12 NRG Serum or plasma creatinine measurement with calculation of estimated glomerular filtration rate 41 NRG Serum or plasma glucose measurement (mass/volume) 147 mg/dL 70-105 Serum or plasma calcium measurement (mass/volume) 10.1 mg/dL 8.5-10.1 THYROID STIMULATING HORMONE - 03/07/16 11:13 THYROID STIMULATING HORMONE 0.18 u[iU]/mL 0.35-4.94 Serum or plasma thyroxine (T4) free measurement (mass/volume) - 03/07/16 11:13 Serum or plasma thyroxine (T4) free measurement (mass/volume) 1.17 ng/dL 0.70-1.48 Whole blood basic metabolic panel - 03/21/16 12:07 Serum or plasma sodium measurement (moles/volume) 137 mmol/L 135-145 Serum or plasma potassium measurement (moles/volume) 4.3 mmol/L 3.6-5.0 Serum or plasma chloride measurement (moles/volume) 106 mmol/L 98-107 Carbon dioxide 20 mmol/L 21-32 Serum or plasma anion gap determination (moles/volume) 11 mmol/L 5-14 Serum or plasma urea nitrogen measurement (mass/volume) 20 mg/dL 7-18 Serum or plasma creatinine measurement (mass/volume) 1.28 mg/dL 0.60-1.30 Serum or plasma urea nitrogen/creatinine mass ratio 16 NRG Serum or plasma creatinine measurement with calculation of estimated glomerular filtration rate 40 NRG Serum or plasma glucose measurement (mass/volume) 200 mg/dL 70-105 Serum or plasma calcium measurement (mass/volume) 10.3 mg/dL 8.5-10.1 Comprehensive metabolic panel - 06/13/16 14:03 Serum or plasma sodium measurement (moles/volume) 134 mmol/L 135-145 Serum or plasma potassium measurement (moles/volume) 4.6 mmol/L 3.6-5.0 Serum or plasma chloride measurement (moles/volume) 104 mmol/L 98-107 Carbon dioxide 21 mmol/L 21-32 Serum or plasma anion gap determination (moles/volume) 9 mmol/L 5-14 Serum or plasma urea nitrogen measurement (mass/volume) 17 mg/dL 7-18 Serum or plasma creatinine measurement (mass/volume) 1.50 mg/dL 0.60-1.30 Serum or plasma urea nitrogen/creatinine mass ratio 11 NRG Serum or plasma creatinine measurement with calculation of estimated glomerular filtration rate 33 NRG Serum or plasma glucose measurement (mass/volume) 264 mg/dL 70-105 Serum or plasma calcium measurement (mass/volume) 9.4 mg/dL 8.5-10.1 Serum or plasma total bilirubin measurement (mass/volume) 0.6 mg/dL 0.1-1.0 Serum or plasma alkaline phosphatase measurement (enzymatic activity/volume) 163 U/L 40-136 Serum or plasma aspartate aminotransferase measurement (enzymatic activity/ volume) 23 U/L 5-34 Serum or plasma alanine aminotransferase measurement (enzymatic activity/volume ) 29 U/L 0-55 Serum or plasma protein measurement (mass/volume) 6.6 g/dL 6.4-8.2 Serum or plasma albumin measurement (mass/volume) 4.2 g/dL 3.2-4.5 Hemoglobin A1c - 06/13/16 14:03 Hemoglobin A1c 5.4 % 4.5-6.2 Bacterial urine culture - 09/05/16 10:50 Bacterial urine culture [id number] NR COLONY COUNT >100,000/ML NR FTX;REPORTABLE PLUS, NRG FREE TEXT ENTRY 2 MIXED GRAM POSITIVES <10,000/ML NR Lipid 1996 panel - 10/31/16 10:06 Serum or plasma triglyceride measurement (mass/volume) 90 mg/dL <150 Serum or plasma cholesterol measurement (mass/volume) 116 mg/dL < 200 Serum or plasma cholesterol in HDL measurement (mass/volume) 46 mg/ dL 40-60 Cholesterol in LDL [mass/volume] in serum or plasma by direct assay 37 mg/dL 1-129 Serum or plasma cholesterol in VLDL measurement (mass/volume) 18 mg/ dL 5-40 Hemoglobin A1c - 10/31/16 10:06 Hemoglobin A1c 5.3 % 4.5-6.2 THYROID STIMULATING HORMONE - 10/31/16 10:06 THYROID STIMULATING HORMONE 1.53 u[iU]/mL 0.35-4.94 Bacterial urine culture - 10/31/16 11:35 Bacterial urine culture [id number] NRG COLONY COUNT <10,000 NRG FREE TEXT ENTRY 2 PLUS, MIXED GRAM POSITIVES <10,000/ML NRG Hemoglobin A1c - 02/13/17 11:36 Hemoglobin A1c 5.3 % 4.5-6.2 Complete urinalysis with reflex to culture - 04/03/17 11:13 Urine color determination YELLOW NRG Urine clarity determination VERY CLOUDY NRG Urine pH measurement by test strip 6 5-9 Specific gravity of urine by test strip 1.010 1.016- 1.022 Urine protein assay by test strip, semi-quantitative 3+ NEGATIVE Urine glucose detection by automated test strip NEGATIVE NEGATIVE Erythrocytes detection in urine sediment by light microscopy 4+ NEGATIVE Urine ketones detection by automated test strip NEGATIVE NEGATIVE Urine nitrite detection by test strip POSITIVE NEGATIVE Urine total bilirubin detection by test strip NEGATIVE NEGATIVE Urine urobilinogen measurement by automated test strip (mass/volume) NORMAL NORMAL Urine leukocyte esterase detection by dipstick 3+ NEGATIVE Automated urine sediment erythrocyte count by microscopy (number/high power field) [HPF] NRG Automated urine sediment leukocyte count by microscopy (number/high power field ) TNTC NRG Bacteria detection in urine sediment by light microscopy LARGE NRG Squamous epithelial cells detection in urine sediment by light microscopy NONE NRG Crystals detection in urine sediment by light microscopy NONE NRG Casts detection in urine sediment by light microscopy NONE NRG Mucus detection in urine sediment by light microscopy NEGATIVE NRG Complete urinalysis with reflex to culture YES NRG Bacterial urine culture - 04/03/17 11:13 Bacterial urine culture [id number] NRG COLONY COUNT >100,000/ML NRG FTX;REPORTABLE SENSITIVITY REPORTED AT 1649, -17 NR Bacterial susceptibility panel - 04/03/17 11:13 Gentamicin susceptibility test by minimum inhibitory concentration < = NRG Trimethoprim/sulfamethoxazole susceptibility test by minimum inhibitoryconcentration <= NRG Ampicillin susceptibility test by minimum inhibitory concentration > = NRG Tobramycin susceptibility test by minimum inhibitory concentration < = NRG Cefazolin susceptibility test by minimum inhibitory concentration < = NRG Ceftriaxone susceptibility test by minimum inhibitory concentration <= NRG Ampicillin/sulbactam susceptibility test by minimum inhibitory concentration 8 NRG Piperacillin/tazobactam susceptibility test by minimum inhibitory concentration <= NRG Ciprofloxacin susceptibility test by minimum inhibitory concentration <= NRG Meropenem susceptibility test by minimum inhibitory concentration < = NRG Nitrofurantoin susceptibility test by minimum inhibitory concentration 32 NRG Aztreonam susceptibility test by minimum inhibitory concentration < = NRG Extended spectrum beta lactamase (ESBL) producing bacteria susceptibility test by minimum inhibitory concentration - NRG Complete blood count (CBC) with automated white blood cell (WBC) differential - 04/03/17 11:15 Blood leukocytes automated count (number/volume) 16.6 10*3/uL 4.3-11.0 Blood erythrocytes automated count (number/volume) 3.15 10*6/uL 4.35-5.85 Venous blood hemoglobin measurement (mass/volume) 8.8 g/dL 11.5-16.0 Blood hematocrit (volume fraction) 27 % 35-52 Automated erythrocyte mean corpuscular volume 87 [foz_us] 80-99 Automated erythrocyte mean corpuscular hemoglobin (mass per erythrocyte) 28 pg 25-34 Automated erythrocyte mean corpuscular hemoglobin concentration measurement ( mass/volume) 32 g/dL 32-36 Automated erythrocyte distribution width ratio 17.4 % 10.0-14.5 Automated blood platelet count (count/volume) 160 10*3/uL 130-400 Automated blood platelet mean volume measurement 9.1 [foz_us] 7.4-10.4 Automated blood neutrophils/100 leukocytes 88 % 42-75 Automated blood lymphocytes/100 leukocytes 6 % 12-44 Blood monocytes/100 leukocytes 7 % 0-12 Automated blood eosinophils/100 leukocytes 0 % 0-10 Automated blood basophils/100 leukocytes 0 % 0-10 Blood neutrophils automated count (number/volume) 14.6 10*3 1.8-7.8 Blood lymphocytes automated count (number/volume) 0.9 10*3 1.0-4.0 Blood monocytes automated count (number/volume) 1.1 10*3 0.0-1.0 Automated eosinophil count 0.0 10*3/uL 0.0-0.3 Automated blood basophil count (count/volume) 0.0 10*3/uL 0.0-0.1 Blood lactic acid measurement (moles/volume) - 04/03/17 11:15 Blood lactic acid measurement (moles/volume) 0.83 mmol/L 0.50-2.00 PT panel in platelet poor plasma by coagulation assay - 04/03/17 11:15 Prothrombin time (PT) in platelet poor plasma by coagulation assay 16.0 s 12.2-14.7 INR in platelet poor plasma or blood by coagulation assay 1.3 0.8-1.4 Activated partial thromboplastin time (aPTT) in platelet poor plasma bycoagulation assay - 04/03/17 11:15 Activated partial thromboplastin time (aPTT) in platelet poor plasma bycoagulation assay 36 s 24-35 Comprehensive metabolic panel - 04/03/17 11:15 Serum or plasma sodium measurement (moles/volume) 130 mmol/L 135-145 Serum or plasma potassium measurement (moles/volume) 4.8 mmol/L 3.6-5.0 Serum or plasma chloride measurement (moles/volume) 101 mmol/L 98-107 Carbon dioxide 18 mmol/L 21-32 Serum or plasma anion gap determination (moles/volume) 11 mmol/L 5-14 Serum or plasma urea nitrogen measurement (mass/volume) 38 mg/dL 7-18 Serum or plasma creatinine measurement (mass/volume) 2.51 mg/dL 0.60-1.30 Serum or plasma urea nitrogen/creatinine mass ratio 15 NRG Serum or plasma creatinine measurement with calculation of estimated glomerular filtration rate 18 NRG Serum or plasma glucose measurement (mass/volume) 211 mg/dL 70-105 Serum or plasma calcium measurement (mass/volume) 9.6 mg/dL 8.5-10.1 Serum or plasma total bilirubin measurement (mass/volume) 0.8 mg/dL 0.1-1.0 Serum or plasma alkaline phosphatase measurement (enzymatic activity/volume) 121 U/L 40-136 Serum or plasma aspartate aminotransferase measurement (enzymatic activity/ volume) 25 U/L 5-34 Serum or plasma alanine aminotransferase measurement (enzymatic activity/volume ) 28 U/L 0-55 Serum or plasma protein measurement (mass/volume) 6.4 g/dL 6.4-8.2 Serum or plasma albumin measurement (mass/volume) 3.6 g/dL 3.2-4.5 Blood manual differential performed detection - 04/03/17 11:15 Blood monocytes/100 leukocytes 5 % NRG Manual blood segmented neutrophils/100 leukocytes 89 % NRG Blood band neutrophils/100 leukocytes 1 % NRG Manual blood lymphocytes/100 leukocytes 5 % NRG Manual eosinophils/100 leukocytes in nose 0 % NRG Manual blood basophils/100 leukocytes 0 % NRG Blood anisocytosis detection by light microscopy MODERATE NRG Bacterial blood culture - 04/03/17 11:18 Bacterial blood culture NG NRG Bacterial blood culture - 04/03/17 13:53 Bacterial blood culture NG NRG Capillary blood glucose measurement by glucometer (mass/volume) - 04/03/17 21: 13 Capillary blood glucose measurement by glucometer (mass/volume) 227 mg/dL 70-110 Capillary blood glucose measurement by glucometer (mass/volume) - 04/04/17 05: 29 Capillary blood glucose measurement by glucometer (mass/volume) 144 mg/dL 70-110 Complete blood count (CBC) with automated white blood cell (WBC) differential - 04/04/17 05:44 Blood leukocytes automated count (number/volume) 13.7 10*3/uL 4.3-11.0 Blood erythrocytes automated count (number/volume) 2.90 10*6/uL 4.35-5.85 Venous blood hemoglobin measurement (mass/volume) 8.0 g/dL 11.5-16.0 Blood hematocrit (volume fraction) 25 % 35-52 Automated erythrocyte mean corpuscular volume 88 [foz_us] 80-99 Automated erythrocyte mean corpuscular hemoglobin (mass per erythrocyte) 28 pg 25-34 Automated erythrocyte mean corpuscular hemoglobin concentration measurement ( mass/volume) 32 g/dL 32-36 Automated erythrocyte distribution width ratio 17.4 % 10.0-14.5 Automated blood platelet count (count/volume) 156 10*3/uL 130-400 Automated blood platelet mean volume measurement 8.7 [foz_us] 7.4-10.4 Automated blood neutrophils/100 leukocytes 83 % 42-75 Automated blood lymphocytes/100 leukocytes 10 % 12-44 Blood monocytes/100 leukocytes 7 % 0-12 Automated blood eosinophils/100 leukocytes 0 % 0-10 Automated blood basophils/100 leukocytes 0 % 0-10 Blood neutrophils automated count (number/volume) 11.4 10*3 1.8-7.8 Blood lymphocytes automated count (number/volume) 1.3 10*3 1.0-4.0 Blood monocytes automated count (number/volume) 1.0 10*3 0.0-1.0 Automated eosinophil count 0.0 10*3/uL 0.0-0.3 Automated blood basophil count (count/volume) 0.0 10*3/uL 0.0-0.1 Comprehensive metabolic panel - 04/04/17 05:44 Serum or plasma sodium measurement (moles/volume) 135 mmol/L 135-145 Serum or plasma potassium measurement (moles/volume) 4.4 mmol/L 3.6-5.0 Serum or plasma chloride measurement (moles/volume) 107 mmol/L 98-107 Carbon dioxide 16 mmol/L 21-32 Serum or plasma anion gap determination (moles/volume) 12 mmol/L 5-14 Serum or plasma urea nitrogen measurement (mass/volume) 33 mg/dL 7-18 Serum or plasma creatinine measurement (mass/volume) 2.09 mg/dL 0.60-1.30 Serum or plasma urea nitrogen/creatinine mass ratio 16 NRG Serum or plasma creatinine measurement with calculation of estimated glomerular filtration rate 23 NRG Serum or plasma glucose measurement (mass/volume) 130 mg/dL 70-105 Serum or plasma calcium measurement (mass/volume) 9.2 mg/dL 8.5-10.1 Serum or plasma total bilirubin measurement (mass/volume) 0.4 mg/dL 0.1-1.0 Serum or plasma alkaline phosphatase measurement (enzymatic activity/volume) 127 U/L 40-136 Serum or plasma aspartate aminotransferase measurement (enzymatic activity/ volume) 38 U/L 5-34 Serum or plasma alanine aminotransferase measurement (enzymatic activity/volume ) 32 U/L 0-55 Serum or plasma protein measurement (mass/volume) 5.9 g/dL 6.4-8.2 Serum or plasma albumin measurement (mass/volume) 3.2 g/dL 3.2-4.5 Capillary blood glucose measurement by glucometer (mass/volume) - 04/04/17 11: 34 Capillary blood glucose measurement by glucometer (mass/volume) 167 mg/dL 70-110 Capillary blood glucose measurement by glucometer (mass/volume) - 04/04/17 20: 53 Capillary blood glucose measurement by glucometer (mass/volume) 112 mg/dL 70-110 Complete blood count (CBC) with automated white blood cell (WBC) differential - 04/05/17 05:25 Blood leukocytes automated count (number/volume) 10.5 10*3/uL 4.3-11.0 Blood erythrocytes automated count (number/volume) 2.89 10*6/uL 4.35-5.85 Venous blood hemoglobin measurement (mass/volume) 8.1 g/dL 11.5-16.0 Blood hematocrit (volume fraction) 25 % 35-52 Automated erythrocyte mean corpuscular volume 88 [foz_us] 80-99 Automated erythrocyte mean corpuscular hemoglobin (mass per erythrocyte) 28 pg 25-34 Automated erythrocyte mean corpuscular hemoglobin concentration measurement ( mass/volume) 32 g/dL 32-36 Automated erythrocyte distribution width ratio 17.7 % 10.0-14.5 Automated blood platelet count (count/volume) 160 10*3/uL 130-400 Automated blood platelet mean volume measurement 9.0 [foz_us] 7.4-10.4 Automated blood neutrophils/100 leukocytes 72 % 42-75 Automated blood lymphocytes/100 leukocytes 16 % 12-44 Blood monocytes/100 leukocytes 12 % 0-12 Automated blood eosinophils/100 leukocytes 1 % 0-10 Automated blood basophils/100 leukocytes 0 % 0-10 Blood neutrophils automated count (number/volume) 7.5 10*3 1.8-7.8 Blood lymphocytes automated count (number/volume) 1.6 10*3 1.0-4.0 Blood monocytes automated count (number/volume) 1.2 10*3 0.0-1.0 Automated eosinophil count 0.1 10*3/uL 0.0-0.3 Automated blood basophil count (count/volume) 0.0 10*3/uL 0.0-0.1 Whole blood basic metabolic panel - 04/05/17 05:25 Serum or plasma sodium measurement (moles/volume) 137 mmol/L 135-145 Serum or plasma potassium measurement (moles/volume) 4.1 mmol/L 3.6-5.0 Serum or plasma chloride measurement (moles/volume) 108 mmol/L 98-107 Carbon dioxide 18 mmol/L 21-32 Serum or plasma anion gap determination (moles/volume) 11 mmol/L 5-14 Serum or plasma urea nitrogen measurement (mass/volume) 30 mg/dL 7-18 Serum or plasma creatinine measurement (mass/volume) 2.03 mg/dL 0.60-1.30 Serum or plasma urea nitrogen/creatinine mass ratio 15 NRG Serum or plasma creatinine measurement with calculation of estimated glomerular filtration rate 23 NRG Serum or plasma glucose measurement (mass/volume) 67 mg/dL 70-105 Serum or plasma calcium measurement (mass/volume) 9.5 mg/dL 8.5-10.1 Capillary blood glucose measurement by glucometer (mass/volume) - 04/05/17 11: 10 Capillary blood glucose measurement by glucometer (mass/volume) 140 mg/dL 70-110 Bacterial urine culture - 04/17/17 14:00 URINE CULTURE RESULTS <10,000/ML NR Complete blood count (CBC) with automated white blood cell (WBC) differential - 07/23/17 13:55 Blood leukocytes automated count (number/volume) 8.5 10*3/uL 4.3-11.0 Blood erythrocytes automated count (number/volume) 3.66 10*6/uL 4.35-5.85 Venous blood hemoglobin measurement (mass/volume) 10.3 g/dL 11.5-16.0 Blood hematocrit (volume fraction) 33 % 35-52 Automated erythrocyte mean corpuscular volume 90 [foz_us] 80-99 Automated erythrocyte mean corpuscular hemoglobin (mass per erythrocyte) 28 pg 25-34 Automated erythrocyte mean corpuscular hemoglobin concentration measurement ( mass/volume) 31 g/dL 32-36 Automated erythrocyte distribution width ratio 14.7 % 10.0-14.5 Automated blood platelet count (count/volume) 134 10*3/uL 130-400 Automated blood platelet mean volume measurement 9.2 [foz_us] 7.4-10.4 Automated blood neutrophils/100 leukocytes 67 % 42-75 Automated blood lymphocytes/100 leukocytes 24 % 12-44 Blood monocytes/100 leukocytes 6 % 0-12 Automated blood eosinophils/100 leukocytes 4 % 0-10 Automated blood basophils/100 leukocytes 0 % 0-10 Blood neutrophils automated count (number/volume) 5.7 10*3 1.8-7.8 Blood lymphocytes automated count (number/volume) 2.0 10*3 1.0-4.0 Blood monocytes automated count (number/volume) 0.5 10*3 0.0-1.0 Automated eosinophil count 0.3 10*3/uL 0.0-0.3 Automated blood basophil count (count/volume) 0.0 10*3/uL 0.0-0.1 Capillary blood glucose measurement by glucometer (mass/volume) - 09/02/17 16: 09 Capillary blood glucose measurement by glucometer (mass/volume) 281 mg/dL 70-110 PT panel in platelet poor plasma by coagulation assay - 09/02/17 16:15 Prothrombin time (PT) in platelet poor plasma by coagulation assay 15.9 s 12.2-14.7 INR in platelet poor plasma or blood by coagulation assay 1.3 0.8-1.4 Blood lactic acid measurement (moles/volume) - 09/02/17 16:15 Blood lactic acid measurement (moles/volume) 1.33 mmol/L 0.50-2.00 Complete blood count (CBC) with automated white blood cell (WBC) differential - 09/02/17 16:15 Blood leukocytes automated count (number/volume) 15.8 10*3/uL 4.3-11.0 Blood erythrocytes automated count (number/volume) 3.14 10*6/uL 4.35-5.85 Venous blood hemoglobin measurement (mass/volume) 8.4 g/dL 11.5-16.0 Blood hematocrit (volume fraction) 26 % 35-52 Automated erythrocyte mean corpuscular volume 83 [foz_us] 80-99 Automated erythrocyte mean corpuscular hemoglobin (mass per erythrocyte) 27 pg 25-34 Automated erythrocyte mean corpuscular hemoglobin concentration measurement ( mass/volume) 32 g/dL 32-36 Automated erythrocyte distribution width ratio 14.8 % 10.0-14.5 Automated blood platelet count (count/volume) 165 10*3/uL 130-400 Automated blood platelet mean volume measurement 9.9 [foz_us] 7.4-10.4 Automated blood neutrophils/100 leukocytes 73 % 42-75 Automated blood lymphocytes/100 leukocytes 16 % 12-44 Blood monocytes/100 leukocytes 9 % 0-12 Automated blood eosinophils/100 leukocytes 2 % 0-10 Automated blood basophils/100 leukocytes 0 % 0-10 Blood neutrophils automated count (number/volume) 11.5 10*3 1.8-7.8 Blood lymphocytes automated count (number/volume) 2.6 10*3 1.0-4.0 Blood monocytes automated count (number/volume) 1.3 10*3 0.0-1.0 Automated eosinophil count 0.2 10*3/uL 0.0-0.3 Automated blood basophil count (count/volume) 0.0 10*3/uL 0.0-0.1 Blood manual differential performed detection - 09/02/17 16:15 Blood monocytes/100 leukocytes 3 % NRG Manual blood segmented neutrophils/100 leukocytes 66 % NRG Blood band neutrophils/100 leukocytes 2 % NRG Manual blood lymphocytes/100 leukocytes 29 % NRG Manual eosinophils/100 leukocytes in nose 0 % NRG Manual blood basophils/100 leukocytes 0 % NRG Blood erythrocyte morphology finding identification NORMAL NRG Comprehensive metabolic panel - 09/02/17 16:15 Serum or plasma sodium measurement (moles/volume) 128 mmol/L 135-145 Serum or plasma potassium measurement (moles/volume) 5.3 mmol/L 3.6-5.0 Serum or plasma chloride measurement (moles/volume) 102 mmol/L 98-107 Carbon dioxide 16 mmol/L 21-32 Serum or plasma anion gap determination (moles/volume) 10 mmol/L 5-14 Serum or plasma urea nitrogen measurement (mass/volume) 34 mg/dL 7-18 Serum or plasma creatinine measurement (mass/volume) 2.13 mg/dL 0.60-1.30 Serum or plasma urea nitrogen/creatinine mass ratio 16 NRG Serum or plasma creatinine measurement with calculation of estimated glomerular filtration rate 22 NRG Serum or plasma glucose measurement (mass/volume) 239 mg/dL 70-105 Serum or plasma calcium measurement (mass/volume) 10.2 mg/dL 8.5-10.1 Serum or plasma total bilirubin measurement (mass/volume) 0.8 mg/dL 0.1-1.0 Serum or plasma alkaline phosphatase measurement (enzymatic activity/volume) 126 U/L 40-136 Serum or plasma aspartate aminotransferase measurement (enzymatic activity/ volume) 35 U/L 5-34 Serum or plasma alanine aminotransferase measurement (enzymatic activity/volume ) 40 U/L 0-55 Serum or plasma protein measurement (mass/volume) 7.3 g/dL 6.4-8.2 Serum or plasma albumin measurement (mass/volume) 3.9 g/dL 3.2-4.5 Influenza virus A and B antigen detection - 09/02/17 16:35 FLU RESULT NEGATIVE FOR INFLUENZA A AND B ANTIGENS BY IA NRG Complete urinalysis with reflex to culture - 09/02/17 18:18 Urine color determination YELLOW NRG Urine clarity determination SLIGHTLY CLOUDY NRG Urine pH measurement by test strip 5 5-9 Specific gravity of urine by test strip 1.005 1.016- 1.022 Urine protein assay by test strip, semi-quantitative 2+ NEGATIVE Urine glucose detection by automated test strip NEGATIVE NEGATIVE Erythrocytes detection in urine sediment by light microscopy 2+ NEGATIVE Urine ketones detection by automated test strip NEGATIVE NEGATIVE Urine nitrite detection by test strip POSITIVE NEGATIVE Urine total bilirubin detection by test strip NEGATIVE NEGATIVE Urine urobilinogen measurement by automated test strip (mass/volume) NORMAL NORMAL Urine leukocyte esterase detection by dipstick 3+ NEGATIVE Automated urine sediment erythrocyte count by microscopy (number/high power field) [HPF] NRG Automated urine sediment leukocyte count by microscopy (number/high power field ) > [HPF] NRG Bacteria detection in urine sediment by light microscopy FEW NRG Crystals detection in urine sediment by light microscopy NONE NRG Casts detection in urine sediment by light microscopy NONE NRG Mucus detection in urine sediment by light microscopy NEGATIVE NRG Complete urinalysis with reflex to culture YES NRG Bacterial urine culture - 09/02/17 18:18 Bacterial urine culture [id number] NRG COLONY COUNT 10,000/ML - 100,000/ML NRG FTX;REPORTABLE FURTHER ID/SENSITIVITY TO FOLLOW NRG Capillary blood glucose measurement by glucometer (mass/volume) - 09/02/17 20: 55 Capillary blood glucose measurement by glucometer (mass/volume) 243 mg/dL 70-110 Capillary blood glucose measurement by glucometer (mass/volume) - 09/03/17 06: 04 Capillary blood glucose measurement by glucometer (mass/volume) 133 mg/dL 70-110 Complete blood count (CBC) with automated white blood cell (WBC) differential - 09/03/17 06:05 Blood leukocytes automated count (number/volume) 15.6 10*3/uL 4.3-11.0 Blood erythrocytes automated count (number/volume) 3.18 10*6/uL 4.35-5.85 Venous blood hemoglobin measurement (mass/volume) 8.5 g/dL 11.5-16.0 Blood hematocrit (volume fraction) 26 % 35-52 Automated erythrocyte mean corpuscular volume 82 [foz_us] 80-99 Automated erythrocyte mean corpuscular hemoglobin (mass per erythrocyte) 27 pg 25-34 Automated erythrocyte mean corpuscular hemoglobin concentration measurement ( mass/volume) 33 g/dL 32-36 Automated erythrocyte distribution width ratio 14.8 % 10.0-14.5 Automated blood platelet count (count/volume) 152 10*3/uL 130-400 Automated blood platelet mean volume measurement 9.4 [foz_us] 7.4-10.4 Automated blood neutrophils/100 leukocytes 85 % 42-75 Automated blood lymphocytes/100 leukocytes 8 % 12-44 Blood monocytes/100 leukocytes 6 % 0-12 Automated blood eosinophils/100 leukocytes 1 % 0-10 Automated blood basophils/100 leukocytes 0 % 0-10 Blood neutrophils automated count (number/volume) 13.3 10*3 1.8-7.8 Blood lymphocytes automated count (number/volume) 1.3 10*3 1.0-4.0 Blood monocytes automated count (number/volume) 1.0 10*3 0.0-1.0 Automated eosinophil count 0.1 10*3/uL 0.0-0.3 Automated blood basophil count (count/volume) 0.0 10*3/uL 0.0-0.1 Whole blood basic metabolic panel - 09/03/17 06:05 Serum or plasma sodium measurement (moles/volume) 133 mmol/L 135-145 Serum or plasma potassium measurement (moles/volume) 5.1 mmol/L 3.6-5.0 Serum or plasma chloride measurement (moles/volume) 105 mmol/L 98-107 Carbon dioxide 16 mmol/L 21-32 Serum or plasma anion gap determination (moles/volume) 12 mmol/L 5-14 Serum or plasma urea nitrogen measurement (mass/volume) 29 mg/dL 7-18 Serum or plasma creatinine measurement (mass/volume) 1.78 mg/dL 0.60-1.30 Serum or plasma urea nitrogen/creatinine mass ratio 16 NRG Serum or plasma creatinine measurement with calculation of estimated glomerular filtration rate 27 NRG Serum or plasma glucose measurement (mass/volume) 124 mg/dL 70-105 Serum or plasma calcium measurement (mass/volume) 10.1 mg/dL 8.5-10.1 PT panel in platelet poor plasma by coagulation assay - 09/03/17 06:05 Prothrombin time (PT) in platelet poor plasma by coagulation assay 15.7 s 12.2-14.7 INR in platelet poor plasma or blood by coagulation assay 1.2 0.8-1.4 Encounters ACCT No. Visit Date/Time Discharge Status Pt. 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 [facility] RAD LUNG NODULE, COUGH , SOB [id number] 07/23/2017 13:38:00 07/30/2017 00:01:00 DIS Outpatient DINORA GREEN N [facility] ONC [id number] 04/17/2017 12:53:00 04/26/2017 00:01:00 DIS Outpatient DINORA GREEN [facility] ONC [id number] 04/04/2017 10:00:00 04/05/2017 12:30:00 DIS Inpatient SUHA TAYLOR MD [facility] 4TH FALL DIABETES UTI SEPSIS [id number] 02/13/2017 11:15:00 02/13/2017 23:59:59 CLS Outpatient FELICITA CEDEÑO MD [facility] LAB [id number] 01/23/2017 12:54:00 02/12/2017 00:01:00 DIS Outpatient DINORA GREEN [facility] ONC [id number] 02/11/2017 15:24:00 02/11/2017 23:59:59 CLS Outpatient MIRTA TORRES APRN [facility] RAD FALL LEFT KNEE PAIN [id number] 10/31/2016 09:52:00 11/06/2016 00:01:00 DIS Outpatient DINORA GREEN [facility] ONC [id number] 11/04/2016 10:56:00 11/04/2016 23:59:59 CLS Outpatient ANGEL FLOWERS [facility] RAD MENTAL STATUS CHANGE [id number] 10/31/2016 09:55:00 10/31/2016 23:59:59 CLS Outpatient FELICITA CEDEÑO MD [facility] LAB [id number] 10/17/2016 14:29:00 10/17/2016 23:59:59 CLS Outpatient FELICITA CEDEÑO MD [facility] RAD SCREENING [id number] 07/25/2016 10:32:00 07/31/2016 00:01:00 DIS Outpatient DINORA GREEN [facility] ONC [id number] 07/12/2016 12:45:00 07/12/2016 23:59:59 CLS Outpatient AR ALLEN DO [facility] RT COPD,COUGH [id number] 06/27/2016 07:57:00 06/27/2016 23:59:59 CLS Outpatient AR ALLEN DO [facility] RAD COPD,COUGH,LUNG NODULE [id number] 06/13/2016 13:35:00 06/13/2016 23:59:59 CLS Outpatient FELICITA CEDEÑO MD [facility] LAB [id number] 05/30/2016 00:10:00 05/30/2016 23:59:59 CLS Preadmit FELICITA CEDEÑO MD [facility] LAB R19.7,N39.0 [id number] 03/03/2016 20:30:00 05/29/2016 00:01:00 DIS Outpatient FELICITA CEDEÑO MD [facility] LAB R19.7,N39.0 [id number] 04/25/2016 13:59:00 04/29/2016 11:00:00 DIS Outpatient DINORA GREEN [facility] ONC [id number] 04/11/2016 08:30:00 04/11/2016 23:59:59 CLS Outpatient JANA PALACIOS [facility] LAB [id number] 03/21/2016 12:00:00 03/21/2016 23:59:59 CLS Outpatient DELILAH HARE [facility] LAB [id number] 03/14/2016 10:20:00 03/14/2016 23:59:59 CLS Outpatient ANGEL FLOWERS [facility] ONC [id number] 03/14/2016 13:49:00 03/14/2016 15:17:00 DIS Outpatient TAPAN HUI MD [facility] REHAB CHRONIC RECURRENT HOARSENESS AND COUGH [id number] 03/07/2016 10:55:00 03/07/2016 23:59:59 CLS Outpatient MIRTA TORRES APRN [facility] LAB [id number] 03/07/2016 10:52:00 03/07/2016 23:59:59 CLS Outpatient FELICITA CEDEÑO MD [facility] LAB [id number] 02/15/2016 11:38:00 02/15/2016 23:59:59 CLS Outpatient DELILAH HARE [facility] LAB [id number] 02/02/2016 10:22:00 02/02/2016 23:59:59 CLS Outpatient TAPAN HUI MD [facility] RAD CHRONIC HOARSNESS, COUGH [id number] 01/31/2016 08:00:00 01/31/2016 00:01:00 DIS Outpatient DINORA GREEN [facility] ONC [id number] 01/18/2016 12:04:00 01/18/2016 23:59:59 CLS Outpatient FELICITA CEDEÑO MD [facility] LAB [id number] 01/11/2016 09:28:00 01/11/2016 23:59:59 CLS Outpatient 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 [id number] 12/15/2015 15:38:00 12/19/2015 11:40:00 DIS Inpatient FELICITA CEDEÑO MD [facility] 4TH COUGH/CONGESTION [id number] 11/29/2015 10:41:00 11/29/2015 23:59:59 CLS Outpatient MIRTA TORRES APRN [facility] RAD PAIN IN CHEST R SHOULDER [id number] 11/29/2015 10:27:00 11/29/2015 23:59:59 CLS Outpatient JANA PALACIOS [facility] CARD CAD,CP SYDROME HTN [id number] 10/26/2015 11:07:00 11/01/2015 00:01:00 DIS Outpatient DINORA GREEN [facility] ONC [id number] 10/04/2015 12:26:00 10/04/2015 23:59:59 CLS Outpatient FELICITA CEDEÑO MD [facility] RAD HEADACHES [id number] 09/07/2015 10:52:00 09/07/2015 23:59:59 CLS Outpatient 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 [id number] 09/06/2015 11:07:00 09/06/2015 23:59:59 CLS Outpatient FELICITA CEDEÑO MD [facility] RAD SCREENING [id number] 09/01/2015 07:52:00 09/01/2015 23:59:59 CLS Outpatient DELILAH FRIAS MD [facility] LAB [id number] 07/26/2015 09:44:00 07/26/2015 00:01:00 DIS Outpatient DINORA GREEN [facility] ONC [id number] 07/06/2015 10:47:00 07/06/2015 23:59:59 CLS Outpatient 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 [id number] 07/03/2015 09:28:00 07/03/2015 23:59:59 CLS Outpatient KLARISSA MOSER APRN [facility] RAD LUNG NODULE [id number] 05/11/2015 10:14:00 05/11/2015 23:59:59 CLS Outpatient FELICITA CEDEÑO MD [facility] LAB [id number] 04/20/2015 08:31:00 04/26/2015 00:01:00 DIS Outpatient DINORA GREEN [facility] ONC [id number] 04/20/2015 08:28:00 04/20/2015 23:59:59 CLS Outpatient JULIETTE GOMEZ MD [facility] LAB [id number] 03/02/2015 12:38:00 03/02/2015 23:59:59 CLS Outpatient 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 [id number] 03/02/2015 10:31:00 03/02/2015 23:59:59 CLS Outpatient MIRTA TORRES APRN [facility] LABNPT UTI [id number] 02/08/2015 10:55:00 02/14/2015 13:20:00 DIS Inpatient LINDA MCKEON MD [facility] IRF WEAKNESS,ALTERED MENTAL STATUS [id number] 02/02/2015 13:27:00 02/08/2015 10:55:00 DIS Inpatient FELICITA CEDEÑO MD [facility] SURGICAL ACUTE RENAL FAILURE, UTI,AMS [id number] 01/25/2015 10:53:00 02/08/2015 00:01:00 DIS Outpatient DINORA GREEN [facility] ONC [id number] 01/31/2015 11:09:00 01/31/2015 23:59:59 CLS Outpatient FELICITA CEDEÑO MD [facility] RAD FALL, CONFUSION [id number] 01/04/2015 10:34:00 01/04/2015 23:59:59 CLS Outpatient AR ALLEN DO [facility] RAD COPD,SOB,COUGH, PNUEMONIA [id number] 01/04/2015 09:53:00 01/04/2015 23:59:59 CLS Outpatient ANGEL FLOWERS [facility] RAD HEADACHE [id number] 12/29/2014 13:27:00 12/29/2014 23:59:59 CLS Outpatient 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 [id number] 12/26/2014 09:57:00 12/26/2014 23:59:59 CLS Outpatient AR ALLEN DO [facility] RAD COPD SOB PNEUMONIA COUGH [id number] 11/02/2014 11:48:00 11/09/2014 00:01:00 DIS Outpatient DINORA GREEN [facility] ONC [id number] 11/04/2014 20:01:00 11/05/2014 07:10:00 DIS Outpatient AR ALLEN DO [facility] SLEEP SNORING,NOCTURNAL HYPOXIA [id number] 10/27/2014 13:50:00 10/27/2014 23:59:59 CLS Outpatient 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 [id number] 08/30/2014 16:15:00 08/30/2014 23:59:59 CLS Outpatient MIRTA TORRES APRN [facility] RAD COUGHING X3 WEEKS [id number] 08/16/2014 09:49:00 08/16/2014 23:59:59 CLS Outpatient FELICITA CEDEÑO MD [facility] RAD SCREENING [id number] 08/04/2014 13:35:00 08/10/2014 00:01:00 DIS Outpatient DINORA GREEN [facility] ONC [id number] 07/20/2014 14:47:00 07/20/2014 16:00:00 DIS Outpatient FRANKLIN CEDEÑO MD [facility] ER SHAKING;SOA;UNABLE TO VOMIT;ABD PAIN [id number] 07/07/2014 13:42:00 07/07/2014 23:59:59 CLS Outpatient 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 [id number] 07/01/2014 14:18:00 07/01/2014 23:59:59 CLS Outpatient AR ALLEN DO [facility] RT COPD,COUGH,SOB [id number] 06/28/2014 15:03:00 06/28/2014 23:59:59 CLS Outpatient AR ALLEN DO [facility] PULM COPD,COUGH,SOB [id number] 06/01/2014 07:17:00 06/01/2014 23:59:59 CLS Outpatient JULIETTE GOMEZ MD [facility] CARD CAD HTN HLE [id number] 05/30/2014 10:59:00 05/30/2014 23:59:59 CLS Outpatient JULIETTE GOMEZ MD [facility] CARD CAD HTN HLE [id number] 04/27/2014 08:52:00 05/11/2014 00:01:00 DIS Outpatient DINORA GREEN [facility] ONC [id number] 04/29/2014 09:22:00 04/29/2014 23:59:59 CLS Outpatient GONZALESLEXIE Wang [employer]ACHINE [facility] RAD HEMTOPYSIS,COUGH [id number] 04/27/2014 09:53:00 04/27/2014 23:59:59 CLS Outpatient GONZALESLEXIE Wang [employer]ACHINE [facility] LAB [id number] 04/14/2014 15:30:00 04/14/2014 23:59:59 CLS Outpatient LEXIE GONZALES [employer]ACH[employer] [facility] RAD HEMOPTYSIS [id number] 02/24/2014 10:27:00 02/24/2014 23:59:59 CLS Outpatient 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 [id number] 02/04/2014 09:35:00 02/09/2014 00:01:00 DIS Outpatient DINORA GREEN [facility] ONC [id number] 12/23/2013 10:56:00 12/23/2013 23:59:59 CLS Outpatient 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 [id number] 10/14/2013 13:21:00 11/10/2013 00:01:00 DIS Outpatient DINORA GREEN [facility] ONC [id number] 10/28/2013 15:43:00 10/28/2013 23:59:59 CLS Outpatient DELILAH FRIAS MD [facility] LAB [id number] 09/02/2013 12:58:00 09/02/2013 23:59:59 CLS Outpatient 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 [id number] 08/16/2013 12:33:00 08/16/2013 23:59:59 CLS Outpatient DINORA GREEN [facility] RAD ABN MAMMO [id number] 05/20/2013 13:03:00 08/11/2013 00:01:00 DIS Outpatient DINORA GREEN [facility] ONC [id number] 07/22/2013 14:03:00 07/22/2013 23:59:59 CLS Outpatient ANGEL FLOWERS [employer] MACHINE [facility] RAD [id number] 07/22/2013 12:48:00 07/22/2013 23:59:59 CLS Outpatient ANGEL FLOWERS S [employer] MACHINE [facility] ONC [id number] 05/27/2013 10:28:00 05/27/2013 23:59:59 CLS Outpatient PATRICIA TY, JULIETTE Infante [facility] LAB [id number] 04/29/2013 13:23:00 05/05/2013 00:01:00 DIS Outpatient DINORA GREEN [facility] ONC [id number] 04/27/2013 14:57:00 04/27/2013 23:59:59 CLS Outpatient SAURABH TY, PAIGE Benitez [facility] RAD COUGH RT SIDE WHEEZES [id number] 04/22/2013 13:02:00 04/22/2013 23:59:59 CLS Outpatient EZ TY, TAPAN Carvajal [facility] RAD CHRONIC SINUSITIS [id number] 04/14/2013 07:54:00 04/14/2013 23:59:59 CLS Outpatient JANA PALACIOS [facility] RAD CAD,COPD, PALP [id number] 04/01/2013 13:46:00 04/01/2013 23:59:59 CLS Outpatient 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 [id number] 02/23/2013 13:07:00 02/23/2013 23:59:59 CLS Outpatient ANGEL FLOWERS [employer] MACHINE [facility] RAD SIX MONTH FOLLOW-UP ON ABN MAMMO [id number] 02/04/2013 13:19:00 02/04/2013 23:59:59 CLS Outpatient ANGEL FLOWERS S [employer] MACHINE [facility] ONC [id number] 01/27/2013 10:32:00 01/27/2013 00:01:00 DIS Outpatient DINORA GREEN [facility] ONC [id number] 09/02/2017 15:19:00 ACT Inpatient SUHA TAYLOR MD [facility] 4TH PNEUMONIA [id number] 09/02/2017 10:08:00 ACT Outpatient FELICITA CEDEÑO MD [facility] LAB [id number] 09/02/2017 09:51:00 ACT Outpatient JONO TY, CHASITY [facility] ONC [id number] 05/23/2016 09:43:00 Document Registration [id number] 01/31/2015 11:09:00 Document Registration [id number] 01/31/2015 11:09:00 Document Registration [id number] 10/21/2014 17:39:00 Document Registration [id number] 10/06/2014 11:52:00 Document Registration [id number] 09/27/2014 15:00:00 Document Registration [id number] 09/26/2014 14:29:00 Document Registration [id number] 09/14/2014 11:36:00 Document Registration [id number] 11/12/2012 10:29:00 Document Registration [id number] 10/22/2012 15:18:00 Document Registration [id number] 10/15/2012 14:22:00 Document Registration [id number] 09/25/2012 07:45:00 Document Registration [id number] 09/17/2012 11:58:00 Document Registration [id number] 09/12/2012 14:53:00 Document Registration [id number] 09/03/2012 13:47:00 Document Registration [id number] 08/26/2012 13:26:00 Document Registration [id number] 08/14/2012 11:07:00 Document Registration [id number] 08/14/2012 09:57:00 Document Registration [id number] 08/13/2012 15:05:00 Document Registration [id number] 08/06/2012 13:34:00 Document Registration [id number] 08/03/2012 11:10:00 Document Registration [id number] 07/28/2012 00:00:00 Document Registration [id number] 07/23/2012 16:03:00 Document Registration [id number] 07/02/2012 13:43:00 Document Registration [id number] 06/19/2012 06:00:00 Document Registration [id number] 05/21/2012 13:57:00 Document Registration [id number] 05/01/2012 13:12:00 Document Registration [id number] 04/02/2012 10:23:00 Document Registration [id number] 03/19/2012 10:14:00 Document Registration [id number] 01/22/2012 08:52:00 Document Registration [id number] 01/02/2012 14:57:00 Document Registration [id number] 10/24/2011 16:08:00 Document Registration [id number] 10/03/2011 13:01:00 Document Registration [id number] 08/22/2011 11:47:00 Document Registration [id number] 07/18/2011 09:50:00 Document Registration [id number] 07/04/2011 13:50:00 Document Registration [id number] 06/27/2011 13:00:00 Document Registration [id number] 05/01/2011 05:31:00 Document Registration [id number] 04/30/2011 07:42:00 Document Registration [id number] 04/08/2011 14:59:00 Document Registration [id number] 03/25/2011 10:00:00 Document Registration [id number] 03/20/2011 10:40:00 Document Registration [id number] 03/12/2011 11:37:00 Document Registration [id number] 03/05/2011 08:13:00 Document Registration [id number] 03/04/2011 09:27:00 Document Registration [id number] 02/14/2011 14:24:00 Document Registration [id number] 02/06/2011 07:37:00 Document Registration [id number] 02/05/2011 11:32:00 Document Registration [id number] 01/31/2011 12:04:00 Document Registration [id number] 01/07/2011 14:25:00 Document Registration [id number] 11/15/2010 11:12:00 Document Registration [id number] 09/10/2010 13:49:00 Document Registration [id number] 08/08/2010 15:33:00 Document Registration [id number] 07/30/2010 16:54:00 Document Registration [id number] 04/26/2010 15:38:00 Document Registration [id number] 04/20/2010 10:46:00 Document Registration [id number] 01/10/2010 14:19:00 Document Registration [id number] 01/10/2010 09:02:00 Document Registration [id number] 12/27/2009 14:22:00 Document Registration [id number] 12/22/2009 12:22:00 Document Registration [id number] 11/20/2009 15:02:00 Document Registration [id number] 10/30/2009 09:17:00 Document Registration [id number] 10/23/2009 09:56:00 Document Registration [id number] 10/11/2009 13:44:00 Document Registration [id number] 10/05/2009 08:46:00 Document Registration [id number] 09/20/2009 14:23:00 Document Registration [id number] 08/30/2009 09:24:00 Document Registration
--- NOTE | 2017-09-03 09:28 | Pulmonary Consultation ---
History of Present Illness History of Present Illness Date of Consultation 09/03/17 09:23 Time Seen by Provider: 08:36 Date of Admission History of Present Illness 82yo with hx of recent hospitalization and hx of CKD, COPD, and was directly secondary to PNA and weakness. pt has had a URI over the last 3 wks and treated for the flu as an out patient. Pt has also had some blood tinged sputum. Pt has come very weak. No fever NS, chills, I am consulted for ICU management. Allergies and Home Medications Allergies Coded Allergies: Penicillins (Verified Allergy, Unknown, Pt has received Ceftriaxone in the past, 09/02/17) influenza virus vaccine, specific (Verified Adverse Reaction, Unknown, Not allergic just won't take Flu vaccine, 09/02/17) Home Medications Albuterol Sulfate 18 Gm Hfa.aer.ad, 2 PUFF INH Q4H PRN for SHORTNESS OF BREATH, (Reported) Alprazolam 0.25 Mg Tablet, 0.25 MG PO DAILY, (Reported) Aspirin 81 Mg Tablet.dr, 81 MG PO DAILY, (Reported) Atorvastatin Calcium 40 Mg Tablet, 40 MG PO HS, (Reported) Citalopram Hydrobromide 20 Mg Tablet, 20 MG PO HS, (Reported) Cyclosporine 1 Each Droperette, 1 DROP OU BID, (Reported) Fish Oil/Dha/Epa 1 Each Capsule, 3,600 MG PO DAILY, (Reported) TAKES 3 (1200MG) CAPSULES Fluticasone Propionate 16 Gm [place].susp, 1 SPRAY NS DAILY, (Reported) Fluticasone/Salmeterol 1 Each Blst.w.dev, 1 PUFF IH BID, (Reported) Folic Acid 0.8 Mg Tablet, 0.8 MG PO DAILY, (Reported) Furosemide 40 Mg Tablet, 40 MG PO DAILY, (Reported) Insulin Aspart 100 Unit/1 Ml Susp, 7 UNIT SQ BID, (Reported) WITH BREAKFAST AND EVENING MEAL Insulin Aspart 100 Unit/1 Ml Susp, 2 UNIT SQ 1200, (Reported) WITH LUNCH Insulin Determir 1,000 Units/10 Ml Soln, 60 UNITS SQ BID, (Reported) Levothyroxine Sodium 125 Mcg Tablet, 125 MCG PO DAILY, (Reported) Loratadine 10 Mg Tablet, 10 MG PO DAILY, (Reported) Meclizine HCl 25 Mg Tablet, 25 MG PO DAILY, (Reported) Metoprolol Succinate 50 Mg Tab.er.24h, 50 MG PO HS, (Reported) Multivitamin 1 Each Tablet, 1 TAB PO DAILY, (Reported) Niacin 1,000 Mg Tab.er.24h, 1,000 MG PO HS, (Reported) Olmesartan Medoxomil 40 Mg Tablet, 40 MG PO DAILY, (Reported) Omeprazole 40 Mg Capsule.dr, 40 MG PO DAILY, (Reported) Polyvinyl Alcohol/Povidone 15 Ml Drops, 1 DROP OU QID PRN for DRY EYES, ( Reported) Pregabalin 100 Mg Capsule, 100 MG PO TID, (Reported) Solifenacin Succinate 5 Mg Tablet, 5 MG PO DAILY, (Reported) Tiotropium [place] 1 Inh Aerp, 1 CAP IH HS, (Reported) Tramadol HCl 50 Mg Tablet, 50 MG PO TID PRN for PAIN-MODERATE, (Reported) Trazodone HCl 100 Mg Tablet, 100 MG PO HS, (Reported) Past Jgdritu-Vggwha-Scuuzg Hx Patient Social History Alcohol Use: Denies Use Recreational Drug Use: No Smoking Status: Never a Smoker 2nd Hand Smoke Exposure: No Recent Foreign Travel: No Contact w/Someone Who Travel: No Recent Infectious Disease Expo: No Recent Hopitalizations: Yes ([id number]) Immunizations Up To Date Tetanus Booster (TDap): Unknown Date of Pneumonia Vaccine: Aug 28, 2012 Seasonal Allergies Seasonal Allergies: No Surgeries History of Surgeries: Yes (SEVERAL) Surgeries: Appendectomy, Eye Surgery, Hysterectomy, Joint Replacement Respiratory History of Respiratory Disorde: Yes Respiratory Disorders: Pneumonia, Chronic Bronchitis, Sleep Apnea Currently Using CPAP: Yes (with oxygen) Currently Using BIPAP: No Cardiovascular History of Cardiac Disorders: Yes Cardiac Disorders: Hypertension Neurological History of Neurological Disord: No 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 System Hx 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 Disorders: No Sexually Transmitted Disease: No HIV/AIDS: No Female 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 Disorders: Denies Genitourinary History of Genitourinary Disor: Yes Genitourinary Disorders: Renal Failure, UTI-Chronic Gastrointestinal History of Gastrointestinal Di: Yes Gastrointestinal Disorders: Gastroesophageal Reflux, Polyps, Hiatal Hernia Musculoskeletal History of Musculoskeletal Dis: No Endocrine History of Endocrine Disorders: Yes (THYROID DISEASE) Endocrine Disorders: Diabetes, Insulin dep HEENT HEENT Disorders: Cataract Loss of Vision: Denies Hearing Impairment: Denies Cancer History of Cancer: No Psychosocial History of Psychiatric Problem: Yes Behavioral Health Disorders: Anxiety, Depression Integumentary History of Skin or Integumenta: No Blood Transfusions History of Blood Disorders: Yes (ANEMIA) Adverse Reaction to a Blood Tr: No Family Medical History Significant Family History: No Pertinent Family Hx Family Medial History: Arthritis Cardiovascular disease Diabetes mellitus Hypertension Review of Systems Time Seen by Provider: 09:44 Constitutional: Fever, Chills, Sweats, Weakness, Malaise Eyes: No: Pain, Vision change, Conjunctivae inflammation, Eyelid inflammation, Other, Redness ENT: No: Ear pain, Ear discharge, Nose pain, Nose discharge, Nose congestion, Mouth pain, Mouth swelling, Throat pain, Throat swelling, Other Respiratory: Cough, Dry, Shortness of breath, SOB with excertion, Wheezing Cardiovascular: Paroxysmal Noc. Dyspnea, Lt Headedness Gastrointestinal: No: Nausea, Vomiting, Abdominal Pain, Diarrhea, Constipation , Melena, Hematochezia, Other Neurological: Weakness, Incoordination, Confusion Exam Exam Vital Signs Date Time Temp Pulse Resp B/P (MAP) Pulse Ox O2 Delivery O2 Flow Rate FiO2 09/03/17 08:59 101.9 09/03/17 08:55 101.9 09/03/17 08:00 102.8 114 22 110/66 (81) 91 Room Air 09/03/17 07:59 101.5 09/03/17 04:00 99.9 118 24 168/70 (102) 93 NIV CPAP 2.00 09/03/17 01:53 98 NIV CPAP 2.00 09/03/17 00:00 96.9 97 16 117/70 (86) 92 NIV CPAP 2.00 09/02/17 22:08 97 Room Air 09/02/17 20:00 97 Room Air 09/02/17 19:13 98.7 90 17 165/72 (103) 97 Room Air 09/02/17 17:55 60 97 21 09/02/17 15:30 Room Air 09/02/17 15:00 97.3 89 18 136/61 (86) 97 Room Air I & O 09/03/17 07:00 Intake Total 1270 ml Output Total 750 ml Balance 520 ml General Appearance: No Apparent Distress, WD/WN HEENT: PERRL/EOMI, Moist Mucous Membranes Neck: Non Tender, Supple Respiratory: No Accessory Muscle Use, No Respiratory Distress, Crackles (in left lung base), Wheezing (scant diffuse) Cardiovascular: Regular Rate, Rhythm, No Murmur Extremity: No Calf Tenderness, Other (left ankle swelling) Neurologic/Psychiatric: Alert, Oriented x3, Normal Mood/Affect Skin: Normal Color, Warm/Dry, Ecchymosis (multiple, most notably on left lower extremity) Results Lab Laboratory Tests 09/02/17 16:15 09/03/17 06:05 Assessment/Plan Assessment/Plan Pneumonia with recent hospitalization -Change abx to vanco and cefepime Multiple falls with small subdural hematoma -D/w Dr. Rivas and Dr. Maradiaga -Will monitor close in ICU -BP control -Fall precautions COPDAE -SVNS -Solumedrol Acute renal failure -IVF and monitor Hyponatremia, hyperkalemia -repeat labs later today and monitor Transfer to ICU with neurochecks, close monitoring, and BP control. 60min spent with patient and medical team discussing patients current condition and plan of care. Clinical Quality Measures DVT/VTE Risk/Contraindication: Risk Factor Score Per Nursin RFS Level Per Nursing on Admit: 4+=Very High AR ALLEN DO Sep 03, 2017 09:28
[2017-09-03] MEDS ORDERED: hydrALAZINE (APESOLINE) 20 MG/ML VIAL IV PRN (09:30)
--- NOTE | 2017-09-03 09:31 | Progress Note-Hospitalist ---
Subjective HPI/CC On Admission Date Seen by Provider: Sep 03, 2017 Time Seen by Provider: 09:00 Pt is an 82yoCF known to me from previous admission with a PMH of CKD IV, COPD, DM, and HTN who was direct admitted from her PCP's for PNA and weakness. She reports that she has been fighting a cold for 3 weeks and was treated for the flu at that time. Her daughter believes she was given abx as well during that time. She was seen by her PCP for cough and hemoptysis and diagnosed clinical with PNA. Since 08/31 she has become very weak and is falling multiple times a day. Her daughter states she has not been able to walk with her walker lately due to the weakness. Friday she feel and hit her head and hurt he left ankle. Patient also complaing of decreased appetite and diarrhea. She denies any fevers. They have been using OTC cough syrup for treatment of her cough. Subjective/Events-last exam Pt reports feeling about the same. Daughter at bedside feels she is worse. Discussed results of the CT head. They are understanding of results and request to stay here if able. Objective Exam Vital Signs Vital Signs Date Time Temp Pulse Resp B/P (MAP) Pulse Ox O2 Delivery O2 Flow Rate FiO2 09/02/17 15:00 97.3 89 18 136/61 (86) 97 Room Air 09/02/17 17:55 21 09/03/17 00:00 2.00 Capillary Refill : General Appearance: No Apparent Distress, Other (ill appearing) Respiratory: No Respiratory Distress, Crackles (left lung base), No Wheezing Cardiovascular: Regular Rate, Rhythm, No Murmur Gastrointestinal: Normal Bowel Sounds, Non Tender, Soft Neurologic/Psychiatric: Other (alert and oriented but mentation slowed compared to yesterday) Results/Procedures Lab Laboratory Tests 09/02/17 16:15 09/03/17 06:05 Assessment/Plan Assessment and Plan Assess & Plan/Chief Complaint SDH Diagnosis/Problems Diagnosis/Problems (1) Subdural hematoma Assessment & Plan: Revealed on CT head yesterday Repeat report form this AM is not back but on my review appears similar in size Will transfer to ICU for monitoring given slightly worse mentation If any further worsening will transfer (2) CAP (community acquired pneumonia) Status: Acute Assessment & Plan: Switch to Vanc and Cefepime Febrile this AM now meeting sepsis criteria- no signs of severe sepsis and lactic from yesterday negative, will repeat blood cultures pending Qualifiers: Qualified Codes: J18.1 - Lobar pneumonia, unspecified organism (3) Urinary tract infection Status: Acute Assessment & Plan: E.coli on culture Continue abx as above Qualifiers: Qualified Codes: N30.01 - Acute cystitis with hematuria (4) Acute renal failure Status: Acute Assessment & Plan: Known CKD Stage IV per Delfin Michaud Creatinine improving IVF (5) Multiple falls Assessment & Plan: XR of ankle shows no fracture CT head showed SDH Managed as above Not on anticoagulation (6) Essential (primary) hypertension Assessment & Plan: Continue home meds (7) COPD (chronic obstructive pulmonary disease) Status: Chronic Assessment & Plan: MAT protocol Pulm consulted, appreciate recs Qualifiers: Qualified Codes: J44.0 - Chronic obstructive pulmonary disease with acute lower respiratory infection (8) Non-insulin dependent type 2 diabetes mellitus Assessment & Plan: SSI Home meds when available (9) Hypothyroidism Status: Chronic Assessment & Plan: Synthroid (10) Anemia Status: Chronic Assessment & Plan: Follows with heme stable Qualifiers: Qualified Codes: N18.4 - Chronic kidney disease, stage 4 (severe); D63.1 - Anemia in chronic kidney disease (11) Prophylactic measure Assessment & Plan: NS @100ml/hr ADA diet SCDs only given SDH SUHA TAYLOR MD Sep 03, 2017 9:31 am
[2017-09-03] MEDS ORDERED: VANCOMYCIN INJECTION 1,500 MG in NS IV 500 ML 500 ML IV NR (09:40)
--- NOTE | 2017-09-03 09:56 | Physical Therapy Evaluation ---
PT Evaluation-General Medical Diagnosis Admission Date Sep 02, 2017 at 15:19 Medical Diagnosis: pneumonia Onset Date: Sep 03, 2017 Therapy Diagnosis Therapy Diagnosis: weakness, falls Height/Weight Height (Feet): 5 Height (Inches): 6.00 Weight (Pounds): 171 Weight (Ounces): 8.0 Precautions Precautions/Isolations: Fall Prevention, Standard Precautions, Pressure Ulcer Weight Bear Status Right Lower Extremity: Right Weight Bearing/Tolerated Left Lower Extremity: Left Weight Bearing/Tolerated Referral Physician: Hilda Rivas MD Reason for Referral: Evaluation/Treatment, Strengthening Medical History Pertinent Medical History: CAD, COPD, DM, GERD, HTN, Hypothroidism, Neuropathy , Renal Insufficiency Social History Home: Single Level Current Living Status: Other Family Entry Into Home: Stairs With Railing PT Steps Into Home: 3 Resides with her daughter and son in law. They provide physical assistance as needed. Pt has a history of falls. Prior/Core FIM Prior Level of Function Functional [place] Measure 0=Not Assessed/NA 4=Minimal Assistance 1=Total Assistance 5=Supervision or Setup 2=Maximal Assistance 6=Modified [place] 3=Moderate Assistance 7=Complete [place] Bed Mobility: 6 Transfers (B,C,W/C) (FIM): 6 Gait: 6 Locomotion: 6 She has a walker but only uses intermittently. PT Evaluation-Current Subjective Pt admitted due to recent increase in weakness and decline in mobility. She has had increased shortness of breath and had a fall on 08/31/17. Family brought her to the hospital for assessment. Objective Patient Orientation: Normal For Age Problem Solving: Fair ROM/Strength ROM Lower Extremities WFL Strength Upper Extremities 4/5 Strength Lower Extremities 4/5 Sensory Vision: Functional Hearing: Functional Transfers Functional [place] Measure 0=Not Assessed/NA 4=Minimal Assistance 1=Total Assistance 5=Supervision or Setup 2=Maximal Assistance 6=Modified [place] 3=Moderate Assistance 7=Complete [place] Transfers (B, C, W/C) (FIM): 4 Scootin Rollin Supine to/from Sit: 4 Sit to/from Stand: 4 Minimal assist to position legs in bed, minimal assist for stability during pivot transfer. Gait Mode of Locomotion: Walk Anticipated Mode of Locomotion: Walk Gait (FIM): 2 Distance (FIM): 3=150 ft Distance: 50 Gait Level of Assist: 4 Gait Persons Needed: 1 Gait Assistive Device: FWW Comments/Gait Description Pt very fatigued during gait and for the last 15 feet needed minimal assist to ensure safe balance. Balance Sitting Static: Fair Sitting Dynamic: Fair Standing Static: Fair Standing Dynamic: Fair Assessment/Needs Pt has weakness secondary to prolonged illness. She has a recent history of decline in function including balance resulting in multiple falls. She will benefit from therapy to address mobility issues and home safety. Rehab Potential: Good Post Rehab Potential-Barriers: complex medical history PT Short Term Goals Short Term Goals Time Frame: Sep 12, 2017 PT Nursing Home Goals Product Technician Goals PT Nursing Home Goals Time Frame: Sep 10, 2017 Transfers (B,C,W/C) (FIM): 5 Gait (FIM): 5 Gait distance (FIM): 3=150 ft Distance: 150 Gait Level of Assist: 5 Gait Assistive Device: FWW PT Plan Problem List Problem List: Activity Tolerance, Safety, Balance, Gait Treatment/Plan Treatment Plan: Continue Plan of Care Treatment Plan: Functional Activity Emmy, Functional Strength, Gait, Safety, Transfers Treatment Duration: Sep 10, 2017 Frequency: 6 times per week Estimated Hrs Per Day: .25 hour per day Patient and/or Family Agrees t: Yes Safety Risks/Education Safety Risk Comments: falls Patient Education: Gait Training, Transfer Techniques, Safety Issues Teaching Recipient: Patient, Family Teaching Methods: Demonstration, Discussion Response to Teaching: Verbalize Understanding, Return Demonstration Time/GCodes Time In: 900 Time Out: 930 Total Billed Treatment Time: 30 Total Billed Treatment visit, evaluation moderate complexity 30 minutes LAKISHA SMITH PT Sep 03, 2017 09:56
[2017-09-03 10:07] LABS: MAGNESIUM 1.6 MG/DL (1.8-2.4); PHOSPHORUS 2.3 MG/DL (2.3-4.7)
--- NOTE | 2017-09-03 10:44 | Speech Therapy Progress Note ---
Therapy Progress Note Speech pathology attempted to completed swallowing evaluation (consult received while patient was in room (432). Upon attempt, the patient was being transferred to ICU. Speech pathology requested an updated consult due to change in medical status once the patient was stable and appropriate for completion in a dysphagia evaluation. The RN verbalized comprehension. LOBITO ALEXANDER Sep 03, 2017 10:44
--- NOTE | 2017-09-03 12:05 | Progress Note ---
Subjective Date Seen by Provider: Sep 03, 2017 Time Seen by Provider: 09:10 Subjective/Events-last exam Patient sitting at bedside. Had fever 102.8. Patient daughter and sone at bedside said earlier she wasn't looking too great but seems to be slightly better now. Patient stating she feels about the same. She is tolerating diet. Her ct head is stable compared to yesterday. Denies nausea, vomiting sweats chills or chest pain. Objective Exam Vital Signs Date Time Temp Pulse Resp B/P (MAP) Pulse Ox O2 Delivery O2 Flow Rate FiO2 09/03/17 08:59 101.9 09/03/17 08:55 101.9 09/03/17 08:00 102.8 114 22 110/66 (81) 91 Room Air 09/03/17 07:59 101.5 09/03/17 04:00 99.9 118 24 168/70 (102) 93 NIV CPAP 2.00 09/03/17 01:53 98 NIV CPAP 2.00 09/03/17 00:00 96.9 97 16 117/70 (86) 92 NIV CPAP 2.00 09/02/17 22:08 97 Room Air 09/02/17 20:00 97 Room Air 09/02/17 19:13 98.7 90 17 165/72 (103) 97 Room Air 09/02/17 17:55 60 97 21 09/02/17 15:30 Room Air 09/02/17 15:00 97.3 89 18 136/61 (86) 97 Room Air I & O 09/03/17 07:00 Intake Total 1270 ml Output Total 750 ml Balance 520 ml Capillary Refill : General Appearance: No Apparent Distress, WD/WN HEENT: PERRL/EOMI, Moist Mucous Membranes Neck: Non Tender, Supple Respiratory: No Accessory Muscle Use, No Respiratory Distress, Crackles (in left lung base), Wheezing (scant diffuse) Cardiovascular: Regular Rate, Rhythm, No Murmur Gastrointestinal: non tender, soft Extremity: No Calf Tenderness, Other (left ankle swelling and bruising) Neurologic/Psychiatric: Alert, Oriented x3, No Motor/Sensory Deficits, Normal Mood/Affect Skin: Normal Color, Warm/Dry, Ecchymosis (multiple, most notably on left lower extremity) Lymphatic: No Adenopathy Results Lab Laboratory Tests 09/02/17 16:09: Glucometer 281H 09/02/17 16:15: White Blood Count 15.8H, Red Blood Count 3.14L, Hemoglobin 8.4L, Hematocrit 26L , Mean Corpuscular Volume 83, Mean Corpuscular Hemoglobin 27, Mean Corpuscular Hemoglobin Concent 32, Red Cell Distribution Width 14.8H, Platelet Count 165, Mean Platelet Volume 9.9, Neutrophils (%) (Auto) 73, Lymphocytes (%) (Auto) 16, Monocytes (%) (Auto) 9, Eosinophils (%) (Auto) 2, Basophils (%) (Auto) 0, Neutrophils # (Auto) 11.5H, Lymphocytes # (Auto) 2.6, Monocytes # (Auto) 1.3H, Eosinophils # (Auto) 0.2, Basophils # (Auto) 0.0, Neutrophils % (Manual) 66, Lymphocytes % (Manual) 29, Monocytes % (Manual) 3, Eosinophils % (Manual) 0, Basophils % (Manual) 0, Band Neutrophils 2, Blood Morphology Comment NORMAL, Prothrombin Time 15.9H, INR Comment 1.3, Sodium Level 128L, Potassium Level 5.3H , Chloride Level 102, Carbon Dioxide Level 16L, Anion Gap 10, Blood Urea Nitrogen 34H, Creatinine 2.13H, Estimat Glomerular Filtration Rate 22, BUN/ Creatinine Ratio 16, Glucose Level 239H, Lactic Acid Level 1.33, Calcium Level 10.2H, Total Bilirubin 0.8, Aspartate Amino Transf (AST/SGOT) 35H, Alanine Aminotransferase (ALT/SGPT) 40, Alkaline Phosphatase 126, Total Protein 7.3, Albumin 3.9 09/02/17 16:50: 09/02/17 18:18: Urine Color YELLOW, Urine Clarity SLIGHTLY CLOUDY, Urine pH 5, Urine Specific [place] 1.005L, Urine Protein 2+H, Urine Glucose (UA) NEGATIVE, Urine Ketones NEGATIVE, Urine Nitrite POSITIVEH, Urine Bilirubin NEGATIVE, Urine Urobilinogen NORMAL, Urine Leukocyte Esterase 3+H, Urine RBC (Auto) 2+H, Urine RBC 10-25H, Urine WBC >100H, Urine Crystals NONE, Urine Bacteria FEWH, Urine Casts NONE, Urine Mucus NEGATIVE, Urine Culture Indicated YES 09/02/17 20:55: Glucometer 243H 09/03/17 06:04: Glucometer 133H 09/03/17 06:05: White Blood Count 15.6H, Red Blood Count 3.18L, Hemoglobin 8.5L, Hematocrit 26L , Mean Corpuscular Volume 82, Mean Corpuscular Hemoglobin 27, Mean Corpuscular Hemoglobin Concent 33, Red Cell Distribution Width 14.8H, Platelet Count 152, Mean Platelet Volume 9.4, Neutrophils (%) (Auto) 85H, Lymphocytes (%) (Auto) 8L , Monocytes (%) (Auto) 6, Eosinophils (%) (Auto) 1, Basophils (%) (Auto) 0, Neutrophils # (Auto) 13.3H, Lymphocytes # (Auto) 1.3, Monocytes # (Auto) 1.0, Eosinophils # (Auto) 0.1, Basophils # (Auto) 0.0, Prothrombin Time 15.7H, INR Comment 1.2, Sodium Level 133L, Potassium Level 5.1H, Chloride Level 105, Carbon Dioxide Level 16L, Anion Gap 12, Blood Urea Nitrogen 29H, Creatinine 1.78H, Estimat Glomerular Filtration Rate 27, BUN/Creatinine Ratio 16, Glucose Level 124H, Calcium Level 10.1, Phosphorus Level 2.3, Magnesium Level 1.6L, B- Type Natriuretic Peptide 165.6H 09/03/17 10:30: Lactic Acid Level 0.82 Microbiology 09/02/17 Influenza Types A,B Antigen (KAROLYN) - Final, Complete 09/02/17 Urine Culture - Preliminary, Resulted Probable E.coli Assessment/Plan Assessment/Plan Assessment/Plan 82 year old female with multiple falls small subdural hematoma copd pneumonia UTI DM II CKD stage IV chronic anemia left ankle pain- no signs of fracture but significant bruising- xray no acute fracture. Discussed with family findings of ct head They still wish for her to be here. Patient with fever up to 102.8 On abx Patient being transferred up to ICU observation continue neuro checks Discussed with family again about transfer and do not wish to be transferred at this time. Clinical Quality Measures DVT/VTE Risk/Contraindication: Risk Factor Score Per Nursin RFS Level Per Nursing on Admit: 4+=Very High FLOYD CORNEJO DO Sep 03, 2017 12:05
--- NOTE | 2017-09-03 14:09 | ST Dysphagia Evaluation ---
Speech Evaluation-General Medical Diagnosis Pneumonia Onset Date: Sep 03, 2017 Therapy Diagnosis Therapy Diagnosis: Oropharyngeal Swallow WNL Precautions Precautions/Isolations: Fall Prevention, Standard Precautions, Pressure Ulcer Referral Referring Physician: Dr. Sammy Caldera Reason for Referral: Evaluation/Treatment Clinical Bedside Swallowing Evaluation Medical History Pertinent Medical History: CAD, COPD, DM, GERD, HTN, Hypothroidism, Neuropathy , Renal Insufficiency Current History The patient was recently admitted to [facility] with a diagnosis of pneumonia. Following admission, the patient reports frequent falls. A head CT revealed a parafalcine subdural hematoma. Reviewed History: Yes Social History Current Living Status: Other Family Speech PLF/Current-Dysphagia Prior Level of Function The patient denied prior challenges with swallowing, stating she consumes a regular diet with thin liquids at home without signs/symptoms of aspiration or laryngeal penetration. Subjective The patient was seated upright in chair upon entrance. The patient has several family members present in her room. Per family member (and Occupational Therapist), the patient experienced a choking episode at lunch. Per patient's family members, she believes the choking was secondary to "shoveling" and rushing throughout her breakfast. CXR: 09/02/17: Stable, chronic findings. Cognitive Status Patient Orientation: Person, Place, Time, Situation Oral Motor Skills Dentition: Natural Ability to Follow Directions: Excellent The patient is NPO pending the results of the swallowing evaluation. Oral Expression Ability: No Impairment Voice Voice Phonatory-Based Quality: Normal Voice Pitch: Normal Voice Loudness: Normal Face Facial Symmetry: Symmetrical Oral-Facial Assessment Oral-Facial Dentition: Underbite Labial Seal Description: Normal Smile: Normal Puff Cheeks: Normal Lingual Protrusion: Normal Lingual ROM: Normal Lingual Strength: Normal Pharynx Velopharyngeal Move.: Normal Volitional Dry Swallow: Yes Dysphagia Evaluation Consistencies Presented: Regular, Thin Liquid, Pureed - No oral impairments were noted throughout the swallowing evaluation. - No pharyngeal impairments were noted throughout the swallowing evaluation. - No signs/symptoms of aspiration or laryngeal penetration were demonstrated with multiple consistencies or boluses (thin liquid and puree). The patient's vocal quality remained clear and her SpO2% remained at 98% throughout the evaluation. Dietary Recommendations: Regular Liquid Recommendations: Thin - The patient was encouraged to reduce her rate of intake, consuming small/ single bites and sips. Swallowing Precautions: Small Bites and Sips, Sitting 90 Degrees 30 Post Intake Dysphagia Evaluation Summary The patient demonstrated an oropharyngeal swallow response grossly within normal limits. Speech-Plan Treatment Plan Speech Therapy Treatment Plan: Discontinue ST Evaluation, only. Frequency: 1 time per week Estimated Hrs Per Day: Other Rehab Potential: Good Safety Risks/Education Teaching Recipient: Patient Teaching Methods: Discussion Response to Teaching: Verbalize Understanding Education Topics Provided: Results, Recommendations, Plan of Care, Swallowing Strategies, Signs/Symptoms of Aspiration Time Speech Therapy Time In: 13:20 Speech Therapy Time Out: 13:35 Total Billed Time: 15 Billed Treatment Time 1, LOBITO STRICKLAND Sep 03, 2017 14:08
--- NOTE | 2017-09-03 14:40 | Occupational Therapy Eval ---
OT Evaluation-General/PLF Medical Diagnosis Admission Date Sep 02, 2017 at 15:19 Medical Diagnosis: Pneumonia Onset Date: Sep 03, 2017 Therapy Diagnosis Therapy Diagnosis: Weakness, Decreased ADL skills Height/Weight Height (Feet): 5 Height (Inches): 6.00 Weight (Pounds): 171 Weight (Ounces): 8.0 Precautions Precautions/Isolations: Fall Prevention, Standard Precautions, Pressure Ulcer Safety Interventions: Bed Exit Alarm Weight Bear Status Weight Bearing Restriction: Weight Bearing/Tolerated Referral Physician: Hilda Rivas MD Referral Reason: Activity Tolerance, Self Care, Evaluation/Treatment, Strengthening/ROM Medical History Pertinent Medical History: CAD, COPD, DM, GERD, HTN, Hypothroidism, Neuropathy , Renal Insufficiency Additional Medical History Appendectomy, hysterectomy, joint replacement, anxiety, depression Current History Pt. began to have multiple falls at home. Family states that she even fell out of her rocking chair. Found to have pneumonia and UTI. Reviewed History: Yes Social History Home: Single Level Current Living Status: Spouse Entry Into Home: Stairs With Railing Steps Into Home: 3 ADL-Prior Level of Function ADL PLOF Comments Family states that pt. was fully independent with daily tasks such as dressing. However, daughter does state that she stayed close whenever her mother was in the shower. DME/Equipment: Bath Chair, Shower DME/Equipment Comments Pt. has a walker. However, was not using any assistive device before getting ill. OT Current Status Subjective Pt. does not state a pain level. Appearance Pt in bed with HOB elevated. Pt. has breakfast in front of her. Note that she is eating rather fast and then starts to cough progressively. Please see following note. Mental Status/Objective Patient Orientation: Confused Current Hand Dominance: Right Upper Extremity ROM WFL ADL-Treatment Functional [place] Measure 0=Not Assessed/NA 4=Minimal Assistance 1=Total Assistance 5=Supervision or Setup 2=Maximal Assistance 6=Modified [place] 3=Moderate Assistance 7=Complete IndependenceIRFPAI Quality Coding Scale 6 Independent with activity with or without an assistive device 5 Patient requires set up or clean up by helper. Patient completes activity by themselves 4 Supervision or touching assist (CGA). [place] provide cues , steadying assist 3 The helper provides less than half the effort to complete the activity 2 The helper provides more than half the effort to complete the activity 1 Dependent. The helper does all the effort to complete an activity 7 Patient refused to complete or attempt activity 9 The patient did not perform the activity before the current illness or injury 88 Not attempted due to Medical conditions or safety concerns Eating (FIM): 4 (Please see note.) Transfers (B, C, W/C) (FIM): 3 (Please see note.) Other Treatments Pt. eating in bed when OT came into room. Pt. eating eggs and kept putting more in, chewing, but not swallowing appropriately. Pt. began to cough and this caused a coughing/choking situation. Pt. breathing okay, but could not quit coughing. Transferred to side of bed with mod assist. Pt. took several drinks that went down okay. Nursing came in to assess pt. Pt. had eggs all over gown. OT changed gown and cleaned bed. OT observed pt. feeding self rest of meal. Pt. required continual cues to slow down and swallow before taking another bite. Nursing notified and aware of swallowing issue. Consulted speech therapy. PT came in to see pt. as well. Pt. was able to finish meal with cues and continual supervision. OT took toast as she did not seem to be chewing well. However, pt. ate all of eggs and a banana that OT cut up for her. Education OT Patient Education: Correct positioning, Modified ADL techniques, Progress toward Goal/Update tx plan, Purpose of tx/functional activities, Reviewed precautions, Rehab process, Transfer techniques Teaching Recipient: Patient Teaching Methods: Demonstration, Discussion Response to Teaching: Verbalize Understanding, Return Demonstration OT Short Term Goals Short Term Goals Time Frame: Sep 10, 2017 Eating(FIM): 5 Grooming(FIM): 4 Bathing(FIM): 4 Upper Body Dressing(FIM): 4 Lower Body Dressing(FIM): 4 Toileting(FIM): 4 Transfers (B,C,W/C) (FIM): 4 Toilet/Commode Transfer(FIM): 4 Additional Short Term Goals: 1-Demonstrate ADL Tasks, 2-Verbalize Understanding , 3-ImproveStrength/Emmy 1=Demonstrate adherence to instructed precautions during ADL tasks. 2=Patient will verbalize/demonstrate understanding of assistive devices/ modifications for ADL. 3=Patient will improve strength/tolerance for activity to enable patient to perform ADL's. OT Alf Goals Enamel Sprayer Goals Time Frame: Sep 24, 2017 Eating (FIM): 6 Grooming(FIM): 6 Bathing(FIM): 4 Upper Body Dressing(FIM): 5 Lower Body Dressing(FIM): 5 Toileting(FIM): 5 Transfers (B,C,W/C) (FIM): 6 Toilet/Commode Transfer(FIM): 6 Additional Goals: 1-Demonstrate ADL Tasks, 2-Verbalize Understanding, 3- ImproveStrength/Emmy 1=Demonstrate adherence to instructed precautions during ADL tasks. 2=Patient will verbalize/demonstrate understanding of assistive devices/ modifications for ADL. 3=Patient will improve strength/tolerance for activity to enable patient to perform ADL's. OT Education/Plan Problem List/Assessment Assessment: Decreased Activ Tolerance, Decreased Safety Aware, Decreased UE Strength, Dependent Transfers, Impaired Bed Mobility, Impaired Cognition, Impaired Coordination, Impaired Funct Balance, Impaired I ADL's, Impaired Self- Care Skills, Restricted Funct UE ROM Discharge Recommendations Plan/Recommendations: Continue POC Therapy D/C Recommendations: Acute Rehab Comment Discharge needs and equipment to be determined. Treatment Plan/Plan of Care Treatment,Training & Education: Yes Patient would benefit from OT for education, treatment and training to promote independence in ADL's, mobility, safety and/or upper extremity function for ADL' s. Plan of Care: ADL Retraining, Caregiver Training, Cognitive Retraining, Functional Mobility, UE Funct Exercise/Act Treatment Duration: Sep 24, 2017 Frequency: 5 times per week Estimated Hrs Per Day: .5 hour per day Agreement: Yes Rehab Potential: Good Time/GCodes Start Time: 08:40 Stop Time: 09:00 Total Time Billed (hr/min): 40 Billed Treatment Time 1, EVH x 15minutes, ADL x 25minutes OLIVER CASTANEDA OT Sep 03, 2017 14:40
--- NOTE | 2017-09-03 14:48 | Occ Therapy Progress Note ---
Therapy Progress Note Pt. transferred to ICU due to change in medical status. Will need new orders to continue treatment. 1450 OLIVER CASTANEDA OT Sep 03, 2017 14:48
[2017-09-03] MEDS ORDERED: CEFEPIME INJECTION 2,000 MG in NS (IVPB) 50 ML IV SCH (15:00)
[2017-09-03] MEDS: guaiFENesin/DM (ROBITUSSIN DM) 10 ML UDC PO PRN (21:05)
[2017-09-03] MEDS: traZODone 100 MG (DESYREL) TAB PO SCH (21:25)
[2017-09-03] MEDS: meTOprolol TARTRATE 25 MG (LOPRESSOR) TABLET PO SCH (21:26)
[2017-09-04] VITALS (14 sets, daily range): BP systolic 105–145; BP diastolic 46–88
[2017-09-04] MEDS: RT-ALBUTEROL/IPRATROPIUM 3 ML (DUONEB) VIAL INH SCH ×6 (02:58→22:29)
[2017-09-04] MEDS: guaiFENesin/DM (ROBITUSSIN DM) 10 ML UDC PO PRN ×5 (03:50→22:10)
[2017-09-04 04:53] LABS: BASOPHILS % (AUTO) 0 % (0-10); EOSINOPHILS # (AUTO) 0.2 10^3/uL (0.0-0.3); EOSINOPHILS % (AUTO) 2 % (0-10); HEMATOCRIT 24 % (35-52); HEMOGLOBIN 7.7 G/DL (11.5-16.0); LYMPHOCYTES # (AUTO) 1.8 X 10^3 (1.0-4.0); LYMPHOCYTES % (AUTO) 17 % (12-44); MEAN CORPUSCULAR HEMOGLOBIN 27 PG (25-34); MEAN CORPUSCULAR HGB CONC 33 G/DL (32-36); MEAN CORPUSCULAR VOLUME 83 FL (80-99); MONOCYTES # (AUTO) 0.9 X 10^3 (0.0-1.0); MONOCYTES % (AUTO) 9 % (0-12); NEUTROPHILS # (AUTO) 7.6 X 10^3 (1.8-7.8); NEUTROPHILS % (AUTO) 73 % (42-75); PLATELET COUNT 142 10^3/uL (130-400); RED BLOOD COUNT 2.86 10^6/uL (4.35-5.85); RED CELL DISTRIBUTION WIDTH 14.9 % (10.0-14.5); WHITE BLOOD COUNT 10.4 10^3/uL (4.3-11.0)
[2017-09-04 05:09] LABS: INR 1.3 (0.8-1.4); PROTHROMBIN TIME PATIENT 15.8 SEC (12.2-14.7)
[2017-09-04 05:23] LABS: CALCIUM 9.8 MG/DL (8.5-10.1); CREATININE SERUM 1.39 MG/DL (0.60-1.30); MAGNESIUM 1.7 MG/DL (1.8-2.4); PHOSPHORUS 3.8 MG/DL (2.3-4.7); POTASSIUM 4.4 MMOL/L (3.6-5.0)
[2017-09-04] MEDS: inSUlin (REGULAR) HUMAN 1 UNIT/0.01 ML (CHARGE PER UNIT) SC SCH (06:38)
[2017-09-04] MEDS: CATHETER FLUSH 10 ML SYR IV SCH ×3 (06:38→21:46)
[2017-09-04] MEDS: NS IV 1000 ML 1,000 ML IV SCH ×2 (06:41→15:48)
--- NOTE | 2017-09-04 07:45 | Pulmonary Progress Note ---
Subjective Time Seen by Provider: 07:49 Subjective/Events-last exam PT feels improved. Neuro checks have been stable. Exam Exam Vital Signs Date Time Temp Pulse Resp B/P (MAP) Pulse Ox O2 Delivery O2 Flow Rate FiO2 09/04/17 07:04 96 Room Air 09/04/17 06:00 68 19 145/62 (89) 95 Room Air 09/04/17 05:00 75 20 142/65 (90) 96 Room Air 09/04/17 04:00 72 24 105/88 (94) 99 Room Air 09/04/17 03:00 70 19 123/53 (76) 96 Room Air 09/04/17 02:00 71 30 109/56 (73) 94 Room Air 09/04/17 01:00 78 09/04/17 01:00 78 23 129/54 (79) 94 Room Air 09/04/17 00:00 98.8 09/04/17 00:00 85 20 121/57 (78) 96 Room Air 09/03/17 23:00 91 24 126/57 (80) 99 Room Air 09/03/17 22:41 94 NIV CPAP 2.00 09/03/17 22:00 96 19 131/53 (79) 100 Room Air 09/03/17 21:00 98 19 133/55 (81) 94 Room Air 09/03/17 20:00 99 20 146/58 (87) 98 Room Air 09/03/17 20:00 95 Room Air 09/03/17 19:12 99 Room Air 09/03/17 19:00 92 18 137/58 (84) 97 Room Air 09/03/17 19:00 92 09/03/17 18:00 82 20 127/50 (75) 96 Room Air 09/03/17 17:00 91 17 125/57 (79) 97 Room Air 09/03/17 16:00 91 14 135/50 (78) 95 Room Air 09/03/17 15:11 99 Room Air 09/03/17 15:00 90 18 134/52 (79) 98 Room Air 09/03/17 14:00 92 26 150/62 (91) 100 Room Air 09/03/17 13:00 92 13 107/58 (74) 97 Room Air 09/03/17 12:00 102 20 107/66 (80) 97 Room Air 09/03/17 11:35 97 Room Air 2/7/18 11:00 100 23 107/51 (69) 93 Room Air 09/03/17 11:00 Room Air 09/03/17 10:16 105 27 108/56 (73) 93 Room Air 09/03/17 10:00 Room Air 09/03/17 09:00 Room Air 09/03/17 08:59 101.9 09/03/17 08:55 101.9 09/03/17 08:00 Room Air 09/03/17 08:00 102.8 114 22 110/66 (81) 91 Room Air 09/03/17 07:59 101.5 I & O 09/04/17 07:00 Intake Total 1475 ml Output Total 500 ml Balance 975 ml General Appearance: No Apparent Distress, Anxious, Other (ill appearing) HEENT: PERRL/EOMI, Moist Mucous Membranes Neck: Non Tender, Supple Respiratory: No Respiratory Distress, Crackles (left lung base), No Wheezing Cardiovascular: Regular Rate, Rhythm, No Murmur Gastrointestinal: non tender, soft Extremity: No Calf Tenderness, Other (left ankle swelling and bruising) Neurologic/Psychiatric: Other (alert and oriented but mentation slowed compared to yesterday) Skin: Normal Color, Warm/Dry, Ecchymosis (multiple, most notably on left lower extremity) Lymphatic: No Adenopathy Results Lab Laboratory Tests 09/02/17 16:15 09/03/17 06:05 09/04/17 04:35 Assessment/Plan Assessment/Plan Pneumonia with recent hospitalization -vanco and cefepime -change back to Rocephin and continue to monitor Multiple falls with small subdural hematoma -D/w Dr. Rivas and Dr. Maradiaga -Will monitor close in ICU -BP control -Fall precautions COPDAE -SVNS Acute renal failure -IVF and monitor 233 Clinical Quality Measures DVT/VTE Risk/Contraindication: Risk Factor Score Per Nursin RFS Level Per Nursing on Admit: 4+=Very High AR ALLEN DO Sep 04, 2017 07:45
--- NOTE | 2017-09-04 08:00 | Progress Note-Hospitalist ---
Subjective HPI/CC On Admission Date Seen by Provider: Sep 04, 2017 Time Seen by Provider: 07:45 Pt is an 82yoCF known to me from previous admission with a PMH of CKD IV, COPD, DM, and HTN who was direct admitted from her PCP's for PNA and weakness. She reports that she has been fighting a cold for 3 weeks and was treated for the flu at that time. Her daughter believes she was given abx as well during that time. She was seen by her PCP for cough and hemoptysis and diagnosed clinical with PNA. Since 08/31 she has become very weak and is falling multiple times a day. Her daughter states she has not been able to walk with her walker lately due to the weakness. Friday she feel and hit her head and hurt he left ankle. Patient also complaing of decreased appetite and diarrhea. She denies any fevers. They have been using OTC cough syrup for treatment of her cough. Subjective/Events-last exam Pt reports feeling much better. Had severe cough last night but improved with cough syrup. No other complaints Objective Exam Vital Signs Vital Signs Date Time Temp Pulse Resp B/P (MAP) Pulse Ox O2 Delivery O2 Flow Rate FiO2 09/02/17 15:00 97.3 89 18 136/61 (86) 97 Room Air 09/02/17 17:55 21 09/03/17 00:00 2.00 Capillary Refill : General Appearance: No Apparent Distress, WD/WN Respiratory: Lungs Clear, No Respiratory Distress Cardiovascular: Regular Rate, Rhythm, No Murmur Gastrointestinal: Normal Bowel Sounds, Soft Extremity: No Calf Tenderness, No Pedal Edema Neurologic/Psychiatric: Alert, Oriented x3 Skin: Ecchymosis Results/Procedures Lab Laboratory Tests 09/04/17 04:35 Assessment/Plan Assessment and Plan Assess & Plan/Chief Complaint SDH Diagnosis/Problems Diagnosis/Problems (1) Subdural hematoma Assessment & Plan: Revealed on CT head yesterday SDH stable on repeat CT Mentation improving, will transfer to floor if ok with Dr Maradiaga (2) CAP (community acquired pneumonia) Status: Acute Assessment & Plan: Deescalate to Rocephin per sensitivities blood cultures NGTD Leukocytosis resolved and no longer febrile Qualifiers: Qualified Codes: J18.1 - Lobar pneumonia, unspecified organism (3) Urinary tract infection Status: Acute Assessment & Plan: E.coli on culture- pansensitive Rocephin Continue abx as above Qualifiers: Qualified Codes: N30.01 - Acute cystitis with hematuria (4) Acute renal failure Status: Resolved Assessment & Plan: Known CKD Stage IV per Delfin Michaud Creatinine improving IVF (5) Multiple falls Assessment & Plan: XR of ankle shows no fracture CT head showed SDH Managed as above Not on anticoagulation PT/OT IRU consulted (6) Essential (primary) hypertension Assessment & Plan: Continue home meds (7) COPD (chronic obstructive pulmonary disease) Status: Chronic Assessment & Plan: MAT protocol Pulm consulted, appreciate recs Qualifiers: Qualified Codes: J44.0 - Chronic obstructive pulmonary disease with acute lower respiratory infection (8) Non-insulin dependent type 2 diabetes mellitus Assessment & Plan: SSI Home meds when available (9) Hypothyroidism Status: Chronic Assessment & Plan: Synthroid (10) Anemia Status: Chronic Assessment & Plan: Follows with heme Hgb dropped somewhat today wiht no signs of bleeding, will trend Qualifiers: Qualified Codes: N18.4 - Chronic kidney disease, stage 4 (severe); D63.1 - Anemia in chronic kidney disease (11) Prophylactic measure Assessment & Plan: NS at 100ml/hr ADA diet SCDs only given SDH SUHA TAYLOR MD Sep 04, 2017 8:00 am
[2017-09-04] MEDS: BENZONATATE 100 MG (TESSALON) CAPSULE PO SCH ×3 (09:57→22:09)
[2017-09-04] MEDS: amLODIPine 5 MG (NORVASC) TAB PO SCH (09:57)
[2017-09-04] MEDS: meTOprolol TARTRATE 25 MG (LOPRESSOR) TABLET PO SCH ×2 (09:57→22:09)
[2017-09-04] MEDS: cefTRIAXone INJECTION 1,000 MG in NS (IVPB) 50 ML IV SCH (09:58)
[2017-09-04] MEDS: inSUlin ASPART (NovoLOG) 1 UNIT/0.01 ML (CHARGE PER UNIT) SQ SCH ×3 (09:59→22:10)
[2017-09-04] MEDS ORDERED: VANCOMYCIN 1 GM/NS 250 ML IVPB IV SCH ×2 (10:00)
[2017-09-04] MEDS: inSUlin DETERMIR 1 UNIT/0.01 ML (LEVEMIR) CHARGE PER UNIT SQ SCH ×2 (10:11→22:10)
--- NOTE | 2017-09-04 10:30 | Diagnostic Imaging Report ---
INDICATION: Dyspnea, pneumonia. TECHNIQUE: Single view chest 4:15 AM. CORRELATION STUDY: 09/02/2017 FINDINGS: Cardiac enlargement and prominent mediastinum, stable. Vasculature unchanged. Chronic changes of the lung parenchyma with what appears to be a more focal area of infiltrate to the right lung base. IMPRESSION: 1. A more focal area of infiltrate to the right lung base superimposed on chronic lung disease. Dictated by: Dictated on workstation # [id number]
--- NOTE | 2017-09-04 11:37 | Physical Therapy Evaluation ---
PT Evaluation-General Medical Diagnosis Admission Date Sep 02, 2017 at 15:19 Medical Diagnosis: Pneumonia Onset Date: Sep 03, 2017 Therapy Diagnosis Therapy Diagnosis: debility/weakness Height/Weight Height (Feet): 5 Height (Inches): 6.00 Weight (Pounds): 171 Weight (Ounces): 8.0 Precautions Precautions/Isolations: Fall Prevention, Standard Precautions, Pressure Ulcer Weight Bear Status Right Lower Extremity: Right Weight Bearing/Tolerated Left Lower Extremity: Left Weight Bearing/Tolerated Referral Physician: Hilda Rivas MD Reason for Referral: Evaluation/Treatment, Strengthening Medical History Pertinent Medical History: CAD, COPD, DM, GERD, HTN, Hypothroidism, Neuropathy , Renal Insufficiency Current History transfer to ICU secondary to "brain bleed" Reviewed History: Yes Social History Home: Single Level Current Living Status: Spouse Entry Into Home: Stairs With Railing PT Steps Into Home: 3 Prior/Core FIM Prior Level of Function Functional [place] Measure 0=Not Assessed/NA 4=Minimal Assistance 1=Total Assistance 5=Supervision or Setup 2=Maximal Assistance 6=Modified [place] 3=Moderate Assistance 7=Complete [place] Bed Mobility: 6 Transfers (B,C,W/C) (FIM): 6 Gait: 6 PT Evaluation-Current Subjective Patient agrees to PT. No c/o at this time. Family present. Pain Numeric Pain Scale: 0-No Pain Location: No Pain Reported Objective Patient Orientation: Normal For Age Problem Solving: Good Attachments: IV ROM/Strength ROM Lower Extremities bilateral LE WNL Strength Lower Extremities right knee flexion/extension 4/5; hip flexion 4/5; DF/PF 4/5; abd/add 4/5 left knee flexion/extension 4/5; hip flexion 4/5; DF/PF 4/5; abd/add/4/5 Integumentary/Posture Integumentary refer to nursing notes Bowel Incontinence: No Bladder Incontinence: No Posture WNL Neuromuscular (Tone, Coordination, Reflexes) grossly intact Sensory Vision: Functional Hearing: Functional Hand Dominance: Right Sensation Right Lower Extremit: Intact Sensation Left Lower Extremity: Intact Transfers Functional [place] Measure 0=Not Assessed/NA 4=Minimal Assistance 1=Total Assistance 5=Supervision or Setup 2=Maximal Assistance 6=Modified [place] 3=Moderate Assistance 7=Complete [place] Transfers (B, C, W/C) (FIM): 5 Scootin Rollin Supine to/from Sit: 5 Sit to/from Stand: 5 Gait Mode of Locomotion: Walk Anticipated Mode of Locomotion: Walk Gait (FIM): 5 Distance (FIM): 3=150 ft Distance: 200' x 2 Gait Level of Assist: 5 Gait Assistive Device: FWW Comments/Gait Description safe and functional Balance Sitting Static: Normal Sitting Dynamic: Normal Standing Static: Normal Standing Dynamic: Normal Assessment/Needs 82 y.o. female, will benefit from skilled PT to address functional strength and mobility to improve current LOF and to safely return to home with family at maximum LOF. Rehab Potential: Good PT Short Term Goals Short Term Goals Time Frame: Sep 12, 2017 Transfers (B,C,W/C) (FIM): 4 PT Copier Repair Technician Goals Copier Repair Technician Goals PT Copier Repair Technician Goals Time Frame: Sep 12, 2017 Transfers (B,C,W/C) (FIM): 6 Gait (FIM): 6 Gait distance (FIM): 3=150 ft Distance: 300' Gait Level of Assist: 6 Gait Assistive Device: FWW PT Plan Treatment/Plan Treatment Plan: Continue Plan of Care Treatment Plan: Functional Activity Emmy, Functional Strength, Gait, Safety, Therapeutic Exercise, Transfers Treatment Duration: Sep 12, 2017 Frequency: 6 times per week Estimated Hrs Per Day: .25 hour per day Patient and/or Family Agrees t: Yes Time/GCodes Time In: 1047 Time Out: 1109 Total Billed Treatment Time: 23 Total Billed Treatment 1 visit EVModC 23 min GREGORIO AMADO PT Sep 04, 2017 11:37
[2017-09-04] MEDS: ACETAMINOPHEN 500 MG TAB (TYLENOL) PO PRN ×2 (14:13→22:10)
--- NOTE | 2017-09-04 15:44 | Progress Note ---
Subjective Date Seen by Provider: Sep 04, 2017 Time Seen by Provider: 08:16 Subjective/Events-last exam feeling better this morning. had cough last night but cough medicine helped. Neuro checks stable. No new complaints. denies n/v fever sweats chills shortness of breath or chest pain at this time. Objective Exam Vital Signs Date Time Temp Pulse Resp B/P (MAP) Pulse Ox O2 Delivery O2 Flow Rate FiO2 09/04/17 15:35 98 Room Air 09/04/17 13:00 84 09/04/17 12:00 83 11 133/62 (85) 99 Room Air 09/04/17 11:25 98.3 Room Air 09/04/17 10:30 99 Room Air 09/04/17 10:00 85 24 126/69 (88) 99 Room Air 09/04/17 09:00 87 12 140/63 (88) 97 Room Air 09/04/17 08:03 98.6 86 18 125/55 (78) 96 Room Air 09/04/17 08:03 Room Air 09/04/17 07:04 96 Room Air 09/04/17 07:00 75 16 124/46 (72) 93 Room Air 09/04/17 07:00 75 09/04/17 06:00 68 19 145/62 (89) 95 Room Air 09/04/17 05:00 75 20 142/65 (90) 96 Room Air 09/04/17 04:00 72 24 105/88 (94) 99 Room Air 09/04/17 03:00 70 19 123/53 (76) 96 Room Air 09/04/17 02:00 71 30 109/56 (73) 94 Room Air 09/04/17 01:00 78 09/04/17 01:00 78 23 129/54 (79) 94 Room Air 09/04/17 00:00 98.8 09/04/17 00:00 85 20 121/57 (78) 96 Room Air 09/03/17 23:00 91 24 126/57 (80) 99 Room Air 09/03/17 22:41 94 NIV CPAP 2.00 09/03/17 22:00 96 19 131/53 (79) 100 Room Air 09/03/17 21:00 98 19 133/55 (81) 94 Room Air 09/03/17 20:00 99 20 146/58 (87) 98 Room Air 09/03/17 20:00 95 Room Air 09/03/17 19:12 99 Room Air 09/03/17 19:00 92 18 137/58 (84) 97 Room Air 09/03/17 19:00 92 09/03/17 18:00 82 20 127/50 (75) 96 Room Air 09/03/17 17:00 91 17 125/57 (79) 97 Room Air 09/03/17 16:00 91 14 135/50 (78) 95 Room Air I & O 09/04/17 07:00 Intake Total 1475 ml Output Total 500 ml Balance 975 ml Capillary Refill : General Appearance: No Apparent Distress, WD/WN HEENT: PERRL/EOMI, Moist Mucous Membranes Neck: Non Tender, Supple Respiratory: Lungs Clear, No Respiratory Distress Cardiovascular: Regular Rate, Rhythm, No Murmur Gastrointestinal: non tender, soft Extremity: No Calf Tenderness, No Pedal Edema Neurologic/Psychiatric: Alert, Oriented x3, No Motor/Sensory Deficits, Normal Mood/Affect, assistant plant controller II-XII Norm as Tested Skin: Ecchymosis Lymphatic: No Adenopathy Results Lab Laboratory Tests 09/03/17 18:34: Glucometer 203H 09/03/17 21:08: Glucometer 216H 09/04/17 04:35: White Blood Count 10.4, Red Blood Count 2.86L, Hemoglobin 7.7L, Hematocrit 24L, Mean Corpuscular Volume 83, Mean Corpuscular Hemoglobin 27, Mean Corpuscular Hemoglobin Concent 33, Red Cell Distribution Width 14.9H, Platelet Count 142, Mean Platelet Volume 10.0, Neutrophils (%) (Auto) 73, Lymphocytes (%) (Auto) 17 , Monocytes (%) (Auto) 9, Eosinophils (%) (Auto) 2, Basophils (%) (Auto) 0, Neutrophils # (Auto) 7.6, Lymphocytes # (Auto) 1.8, Monocytes # (Auto) 0.9, Eosinophils # (Auto) 0.2, Basophils # (Auto) 0.0, Prothrombin Time 15.8H, INR Comment 1.3, Sodium Level 136, Potassium Level 4.4, Chloride Level 110H, Carbon Dioxide Level 16L, Anion Gap 10, Blood Urea Nitrogen 23H, Creatinine 1.39H, Estimat Glomerular Filtration Rate 36, BUN/Creatinine Ratio 17, Glucose Level 79 , Calcium Level 9.8, Phosphorus Level 3.8, Magnesium Level 1.7L 09/04/17 11:27: Glucometer 129H Microbiology 09/02/17 Blood Culture - Preliminary, Resulted No growth 09/02/17 Influenza Types A,B Antigen (KAROLYN) - Final, Complete 09/02/17 Urine Culture - Final, Complete Escherichia coli Assessment/Plan Assessment/Plan Assessment/Plan 82 year old female with multiple falls small subdural hematoma copd pneumonia UTI DM II CKD stage IV chronic anemia left ankle pain- no signs of fracture but significant bruising- xray no acute fracture. Patient neurologically stable. Will get PT involved Consider inpatient rehab. Continue medical management. No changes at this time. Hgb dropped, monitor Clinical Quality Measures DVT/VTE Risk/Contraindication: Risk Factor Score Per Nursin RFS Level Per Nursing on Admit: 4+=Very High FLOYD CORNEJO DO Sep 04, 2017 15:44
[2017-09-04] MEDS: traZODone 100 MG (DESYREL) TAB PO SCH (22:09)
[2017-09-05] MEDS: RT-ALBUTEROL/IPRATROPIUM 3 ML (DUONEB) VIAL INH SCH ×3 (02:22→10:00)
[2017-09-05] MEDS: NS IV 1000 ML 1,000 ML IV SCH (03:00)
[2017-09-05] MEDS: CATHETER FLUSH 10 ML SYR IV SCH (05:10)
[2017-09-05 05:13] LABS: BASOPHILS % (AUTO) 0 % (0-10); EOSINOPHILS # (AUTO) 0.3 10^3/uL (0.0-0.3); EOSINOPHILS % (AUTO) 3 % (0-10); HEMATOCRIT 23 % (35-52); HEMOGLOBIN 7.2 G/DL (11.5-16.0); LYMPHOCYTES # (AUTO) 1.7 X 10^3 (1.0-4.0); LYMPHOCYTES % (AUTO) 16 % (12-44); MEAN CORPUSCULAR HEMOGLOBIN 26 PG (25-34); MEAN CORPUSCULAR HGB CONC 32 G/DL (32-36); MEAN CORPUSCULAR VOLUME 83 FL (80-99); MEAN PLATELET VOLUME 9.6 FL (7.4-10.4); MONOCYTES # (AUTO) 0.9 X 10^3 (0.0-1.0); MONOCYTES % (AUTO) 9 % (0-12); NEUTROPHILS # (AUTO) 7.3 X 10^3 (1.8-7.8); NEUTROPHILS % (AUTO) 72 % (42-75); PLATELET COUNT 146 10^3/uL (130-400); RED BLOOD COUNT 2.74 10^6/uL (4.35-5.85); WHITE BLOOD COUNT 10.2 10^3/uL (4.3-11.0)
[2017-09-05 05:21] LABS: INR 1.2 (0.8-1.4); PROTHROMBIN TIME PATIENT 15.6 SEC (12.2-14.7)
[2017-09-05 05:33] LABS: CALCIUM 9.4 MG/DL (8.5-10.1); CREATININE SERUM 1.23 MG/DL (0.60-1.30); POTASSIUM 4.2 MMOL/L (3.6-5.0)
[2017-09-05 06:00] VITALS: BP 131/66
--- NOTE | 2017-09-05 06:04 | Pulmonary Progress Note ---
Subjective Time Seen by Provider: 06:06 Subjective/Events-last exam pt appears to be doing slightly better. No focal deficits. She is awake and alert. Exam Exam Vital Signs Date Time Temp Pulse Resp B/P (MAP) Pulse Ox O2 Delivery O2 Flow Rate FiO2 09/05/17 01:50 99 NIV CPAP 2.00 09/04/17 22:10 97 Room Air 09/04/17 21:25 99.0 87 18 138/57 (84) 99 Room Air 09/04/17 20:00 Room Air 09/04/17 18:45 96 Room Air 09/04/17 16:24 98.7 90 19 123/52 (75) 97 Room Air 09/04/17 15:35 98 Room Air 09/04/17 13:00 84 09/04/17 12:00 83 11 133/62 (85) 99 Room Air 09/04/17 11:25 98.3 Room Air 09/04/17 10:30 99 Room Air 09/04/17 10:00 85 24 126/69 (88) 99 Room Air 09/04/17 09:00 87 12 140/63 (88) 97 Room Air 09/04/17 08:03 98.6 86 18 125/55 (78) 96 Room Air 09/04/17 08:03 Room Air 09/04/17 07:04 96 Room Air 09/04/17 07:00 75 16 124/46 (72) 93 Room Air 09/04/17 07:00 75 09/04/17 06:00 68 19 145/62 (89) 95 Room Air I & O 09/05/17 06:59 Intake Total 1950 ml Output Total 850 ml Balance 1100 ml General Appearance: No Apparent Distress, WD/WN HEENT: PERRL/EOMI, Moist Mucous Membranes Neck: Non Tender, Supple Respiratory: Lungs Clear, No Respiratory Distress Cardiovascular: Regular Rate, Rhythm, No Murmur Gastrointestinal: non tender, soft Extremity: No Calf Tenderness, No Pedal Edema Neurologic/Psychiatric: Alert, Oriented x3, No Motor/Sensory Deficits, Normal Mood/Affect, medical laboratory assistant II-XII Norm as Tested Skin: Ecchymosis Lymphatic: No Adenopathy Results Lab Laboratory Tests 09/03/17 06:05 09/04/17 04:35 09/05/17 05:00 Assessment/Plan Assessment/Plan Pneumonia with recent hospitalization - Rocephin and continue to monitor Multiple falls with small subdural hematoma -D/w Dr. Rivas and Dr. Maradiaga -Will monitor close in ICU -BP control -Fall precautions metabolic acidosis -give 2 amps of NaHC03 Anemia -give 1 unit of PRBC and monitor COPDAE -SVNS Acute renal failure -IVF and monitor 233 Clinical Quality Measures DVT/VTE Risk/Contraindication: Risk Factor Score Per Nursin RFS Level Per Nursing on Admit: 4+=Very High AR ALLEN DO Sep 05, 2017 06:04
[2017-09-05] MEDS ORDERED: D5 1/2 NS W/KCL 20 MEQ/L 0 ML IV ONE (06:10)
[2017-09-05] MEDS ORDERED: SODIUM BICARB 8.4% 50 MEQ/50 ML (ABBOTT) SYR IV ONE (06:15)
[2017-09-05] MEDS ORDERED: D5 1/2 NS 1000 ML IV SOLUTION 1,000 ML IV SCH (06:15)
[2017-09-05 06:21] LABS: MAGNESIUM 1.7 MG/DL (1.8-2.4); PHOSPHORUS 3.8 MG/DL (2.3-4.7)
--- NOTE | 2017-09-05 07:16 | Discharge Summary-Hospitalist ---
Diagnosis/Chief Complaint Date of Admission Sep 02, 2017 at 15:19 Date of Discharge Admission Diagnosis PNA Discharge Diagnosis SDH (1) Subdural hematoma Assessment & Plan: Revealed on CT head on admission SDH stable on repeat CT on 09/03 Mentation improving, will DC to inpatient rehab (2) Urinary tract infection Status: Acute Assessment & Plan: E.coli on culture- pansensitive Rocephin Continue abx as above (3) CAP (community acquired pneumonia) Status: Acute Assessment & Plan: Deescalate to Rocephin per sensitivities blood cultures NGTD Leukocytosis resolved and no longer febrile (4) Acute renal failure Status: Resolved Assessment & Plan: Known CKD Stage IV per Delfin Michaud Creatinine improving IVF (5) Multiple falls Assessment & Plan: XR of ankle shows no fracture CT head showed SDH Managed as above Not on anticoagulation PT/OT IRU consulted (6) Essential (primary) hypertension Assessment & Plan: Continue home meds (7) COPD (chronic obstructive pulmonary disease) Status: Chronic Assessment & Plan: MAT protocol Pulm consulted, appreciate recs (8) Non-insulin dependent type 2 diabetes mellitus Assessment & Plan: SSI Home meds when available BS low this AM will decrease basal insulin (9) Hypothyroidism Status: Chronic Assessment & Plan: Synthroid (10) Anemia Status: Chronic Assessment & Plan: Follows with heme Hgb stable in 7s Follows with heme- may need epo in IRU (11) Prophylactic measure Assessment & Plan: Saline Lock ADA diet SCDs only given SDH Discharge Summary Consultations Dr Caldera- Pulbenson Maradiaga- Surgery Discharge Physical Examination Allergies: Coded Allergies: Penicillins (Verified Allergy, Unknown, Pt has received Ceftriaxone in the past, 09/02/17) influenza virus vaccine, specific (Verified Adverse Reaction, Unknown, Not allergic just won't take Flu vaccine, 09/02/17) Vitals & I&Os Vital Signs Date Time Temp Pulse Resp B/P (MAP) Pulse Ox O2 Delivery O2 Flow Rate FiO2 09/05/17 06:08 97 Room Air 09/05/17 06:00 98.9 86 20 131/66 (87) 09/05/17 01:50 2.00 09/02/17 17:55 21 Hospital Course Pt presented from clinic as a direct admit for presumed pneumonia and generalized weakness. Given her history of falls a CT Head and neck was obtained and trauma surgry was consulted for evaluation. CT Head revealed SDH. Repeat showed stable in size and she had no neurological deficits. She was found to have a UTI as well and improved with antibiotics. SHe and family both requested evaluation by rehab for more intense therapy. She was discharged to inpatient rehab in stable condition. Labs (last 24 hrs) Laboratory Tests 09/04/17 11:27: Glucometer 129H 09/04/17 16:27: Glucometer 101 09/04/17 21:10: Glucometer 199H 09/05/17 05:00: White Blood Count 10.2, Red Blood Count 2.74L, Hemoglobin 7.2L, Hematocrit 23L, Mean Corpuscular Volume 83, Mean Corpuscular Hemoglobin 26, Mean Corpuscular Hemoglobin Concent 32, Red Cell Distribution Width 15.0H, Platelet Count 146, Mean Platelet Volume 9.6, Neutrophils (%) (Auto) 72, Lymphocytes (%) (Auto) 16, Monocytes (%) (Auto) 9, Eosinophils (%) (Auto) 3, Basophils (%) (Auto) 0, Neutrophils # (Auto) 7.3, Lymphocytes # (Auto) 1.7, Monocytes # (Auto) 0.9, Eosinophils # (Auto) 0.3, Basophils # (Auto) 0.0, Prothrombin Time 15.6H, INR Comment 1.2, Sodium Level 140, Potassium Level 4.2, Chloride Level 113H, Carbon Dioxide Level 15L, Anion Gap 12, Blood Urea Nitrogen 19H, Creatinine 1.23, Estimat Glomerular Filtration Rate 42, BUN/Creatinine Ratio 15, Glucose Level 54 *L, Calcium Level 9.4, Phosphorus Level 3.8, Magnesium Level 1.7L 09/05/17 06:51: Glucometer 95 Microbiology 09/02/17 Blood Culture - Preliminary, Resulted No growth 09/02/17 Influenza Types A,B Antigen (KAROLYN) - Final, Complete 09/02/17 Urine Culture - Final, Complete Escherichia coli Pending Labs Laboratory Tests 09/05/17 05:00: White Blood Count 10.2, Red Blood Count 2.74, Hemoglobin 7.2, Hematocrit 23, Mean Corpuscular Volume 83, Mean Corpuscular Hemoglobin 26, Mean Corpuscular Hemoglobin Concent 32, Red Cell Distribution Width 15.0, Platelet Count 146, Mean Platelet Volume 9.6, Neutrophils (%) (Auto) 72, Lymphocytes (%) (Auto) 16, Monocytes (%) (Auto) 9, Eosinophils (%) (Auto) 3, Basophils (%) (Auto) 0, Neutrophils # (Auto) 7.3, Lymphocytes # (Auto) 1.7, Monocytes # (Auto) 0.9, Eosinophils # (Auto) 0.3, Basophils # (Auto) 0.0, Prothrombin Time 15.6, INR Comment 1.2, Sodium Level 140, Potassium Level 4.2, Chloride Level 113, Carbon Dioxide Level 15, Anion Gap 12, Blood Urea Nitrogen 19, Creatinine 1.23, Estimat Glomerular Filtration Rate 42, BUN/Creatinine Ratio 15, Glucose Level 54 , Calcium Level 9.4, Phosphorus Level 3.8, Magnesium Level 1.7 09/05/17 06:51: Glucometer 95 Discharge Home Medications: Active Scripts Active Reported Tramadol HCl 50 Mg Tablet 50 Mg PO TID PRN Vesicare (Solifenacin Succinate) 5 Mg Tablet 5 Mg PO DAILY Olmesartan Medoxomil 40 Mg Tablet 40 Mg PO DAILY Lyrica (Pregabalin) 100 Mg Capsule 100 Mg PO TID Levothyroxine Sodium 125 Mcg Tablet 125 Mcg PO DAILY Loratadine 10 Mg Tablet 10 Mg PO DAILY Citalopram HBr (Citalopram Hydrobromide) 20 Mg Tablet 20 Mg PO HS Aspirin EC (Aspirin) 81 Mg Tablet.dr 81 Mg PO DAILY Fluticasone Propionate 16 Gm [place].susp 1 [place] NS DAILY Ventolin Hfa (Albuterol Sulfate) 18 Gm Hfa.aer.ad 2 Puff INH Q4H PRN Fish Oil 1,200 mg Fish Oil (Fish Oil/Dha/Epa) 1 Each Capsule 3,600 Mg PO DAILY TAKES 3 (1200MG) CAPSULES Novolog (Insulin Aspart) 100 Unit/1 Ml Susp 2 Unit SQ 1200 WITH LUNCH Novolog (Insulin Aspart) 100 Unit/1 Ml Susp 7 Unit SQ BID WITH BREAKFAST AND EVENING MEAL Artificial Tears Drops (Polyvinyl Alcohol/Povidone) 15 Ml Drops 1 Drop OU QID PRN Restasis (Cyclosporine) 1 Each Droperette 1 Drop OU BID Alprazolam 0.25 Mg Tablet 0.25 Mg PO DAILY Omeprazole 40 Mg Capsule.dr 40 Mg PO DAILY Furosemide 40 Mg Tablet 40 Mg PO DAILY Spiriva (Tiotropium [place]) 1 Inh Aerp 1 Cap IH HS Levemir (Insulin Determir) 1,000 Units/10 Ml Soln 60 Units SQ BID Meclizine HCl 25 Mg Tablet 25 Mg PO DAILY Metoprolol Succinate 50 Mg Tab.er.24h 50 Mg PO HS Atorvastatin Calcium 40 Mg Tablet 40 Mg PO HS Niacin ER (Niacin) 1,000 Mg Tab.er.24h 1,000 Mg PO HS Advair 250-50 Diskus (Fluticasone/Salmeterol) 1 Each Blst.w.dev 1 Puff IH BID Trazodone HCl 100 Mg Tablet 100 Mg PO HS Folic Acid 0.8 Mg Tablet 0.8 Mg PO DAILY Multivitamins (Multivitamin) 1 Each Tablet 1 Tab PO DAILY Instructions to patient/family Please see electronic discharge instructions given to patient. Clinical Quality Measures DVT/VTE Risk/Contraindication: Risk Factor Score Per Nursin RFS Level Per Nursing on Admit: 4+=Very High Copy Copies To 1: FELICITA CEDEÑO MD Problem Qualifiers (1) Urinary tract infection: Urinary tract infection type: acute cystitis Hematuria presence: with hematuria Qualified Codes: N30.01 - Acute cystitis with hematuria (2) CAP (community acquired pneumonia): Laterality: left Lung location: lower lobe of lung Qualified Codes: J18.1 - Lobar pneumonia, unspecified organism (3) COPD (chronic obstructive pulmonary disease): COPD type: COPD with acute lower respiratory infection Qualified Codes: J44.0 - Chronic obstructive pulmonary disease with acute lower respiratory infection (4) Anemia: Anemia type: due to chronic kidney disease Chronic kidney disease stage: stage 4 (severe) Qualified Codes: N18.4 - Chronic kidney disease, stage 4 ( severe); D63.1 - Anemia in chronic kidney disease SUHA TAYLOR MD Sep 05, 2017 07:16
[2017-09-05 08:00] VITALS: BP 130/63
[2017-09-05] MEDS ORDERED: INSU100V5 SQ ×2 (08:15→13:17)
[2017-09-05] MEDS ORDERED: ARTIFICAL TEARS 0.4 ML UNIT DOSE (REFRESH PLUS) OU PRN (08:30)
[2017-09-05] MEDS ORDERED: LEVOTHYROXINE 125 MCG (LEVOTHROID) TABLET PO SCH (09:00)
[2017-09-05] MEDS ORDERED: FUROSEMIDE 40 MG (LASIX) TAB PO SCH (09:00)
[2017-09-05] MEDS ORDERED: inSUlin DETERMIR 1 UNIT/0.01 ML (LEVEMIR) CHARGE PER UNIT SQ SCH (09:00)
[2017-09-05] MEDS ORDERED: TROUGH ORDER-PHARMACY XX NR (09:00)
[2017-09-05] MEDS: cefTRIAXone INJECTION 1,000 MG in NS (IVPB) 50 ML IV SCH (09:41)
[2017-09-05] MEDS: inSUlin ASPART (NovoLOG) 1 UNIT/0.01 ML (CHARGE PER UNIT) SQ SCH (09:41)
[2017-09-05] MEDS: meTOprolol TARTRATE 25 MG (LOPRESSOR) TABLET PO SCH (09:42)
[2017-09-05] MEDS: amLODIPine 5 MG (NORVASC) TAB PO SCH (09:42)
[2017-09-05] MEDS: guaiFENesin/DM (ROBITUSSIN DM) 10 ML UDC PO PRN (09:48)
[2017-09-05] MEDS: BENZONATATE 100 MG (TESSALON) CAPSULE PO SCH (09:48)
[2017-09-05] MEDS ORDERED: ATORVASTATIN 40 MG (LIPITOR) TABLET PO SCH (21:00)
--- NOTE | 2017-09-06 22:22 | Progress Note ---
Subjective Date Seen by Provider: Sep 05, 2017 Time Seen by Provider: 08:30 Subjective/Events-last exam Feeling better today. No neuro changes. Family at bedside. Tolerating diet. Hgb down slightly. Denies any n/v fever sweats chills shortness of breath or chest pain. Objective Exam Capillary Refill : General Appearance: No Apparent Distress, WD/WN HEENT: PERRL/EOMI Neck: Non Tender, Supple Respiratory: Lungs Clear, No Respiratory Distress Cardiovascular: Regular Rate, Rhythm, No Murmur Gastrointestinal: non tender, soft Extremity: No Calf Tenderness, No Pedal Edema Neurologic/Psychiatric: Alert, Oriented x3, No Motor/Sensory Deficits, Normal Mood/Affect, sales supervisor II-XII Norm as Tested Skin: Ecchymosis Lymphatic: No Adenopathy Results Lab Microbiology 09/02/17 Blood Culture - Preliminary, Resulted No growth 09/02/17 Influenza Types A,B Antigen (KAROLYN) - Final, Complete 09/02/17 Urine Culture - Final, Complete Escherichia coli Assessment/Plan Assessment/Plan Assessment/Plan 82 year old female with multiple falls small subdural hematoma copd pneumonia UTI DM II CKD stage IV chronic anemia left ankle pain- no signs of fracture but significant bruising- xray no acute fracture. Patient neurologically stable. Planning transfer to inpatient rehab Hgb dropped, going to receive transfusion today. Clinical Quality Measures DVT/VTE Risk/Contraindication: Risk Factor Score Per Nursin RFS Level Per Nursing on Admit: 4+=Very High FLOYD CORNEJO DO Sep 06, 2017 22:22
== END 2017-09-05 10:20 | DRG 85 ==
LOC: 4TH 15:19 → ICU 09-03 09:49
PROVIDERS: ADMIT Family Medicine; ATTEND Family Medicine
DX: S06.5X0A Traumatic subdural hemorrhage without loss of consciousness, initial encounter (principal); J18.9 Pneumonia, unspecified organism; J44.0 Chronic obstructive pulmonary disease with (acute) lower respiratory infection; J44.1 Chronic obstructive pulmonary disease with (acute) exacerbation; N17.9 Acute kidney failure, unspecified; I12.9 Hypertensive chronic kidney disease with stage 1 through stage 4 chronic kidney disease, or unspecified chronic kidney disease; N18.4 Chronic kidney disease, stage 4 (severe); R04.2 Hemoptysis; E87.1 Hypo-osmolality and hyponatremia; N30.01 Acute cystitis with hematuria; B96.20 Unspecified Escherichia coli [E. coli] as the cause of diseases classified elsewhere; M25.572 Pain in left ankle and joints of left foot; D63.1 Anemia in chronic kidney disease; G47.30 Sleep apnea, unspecified; E87.5 Hyperkalemia; K21.9 Gastro-esophageal reflux disease without esophagitis; E11.9 Type 2 diabetes mellitus without complications; F41.9 Anxiety disorder, unspecified; F32.9 Major depressive disorder, single episode, unspecified; E03.9 Hypothyroidism, unspecified; K44.9 Diaphragmatic hernia without obstruction or gangrene; R53.1 Weakness; R29.6 Repeated falls; W01.10XA Fall on same level from slipping, tripping and stumbling with subsequent striking against unspecified object, initial encounter; Z79.4 Long term (current) use of insulin; Z99.81 Dependence on supplemental oxygen
CPT/HCPCS: 36415; 70450; 71045; 72125; 73610; 80048; 80053; 80061; 81000; 82728; 82962; 83036; 83605; 83735; 83880; 84100; 84443; 85007; 85025; 85027; 85610; 86850; 86900; 86901; 86920; 87040; 87077; 87088; 87186; 87449; 87804; 87899; 94640; 94664; 94760; 96372

== ENCOUNTER → 2017-09-02 | Outpatient (CLI) | payer MEDICARE, MEDICAID ==
[~2017-09-02] MED LIST changes: -DARBEPOETIN 25 MCG/ML (CANCER CTR) 1 ML VIAL SC SCH; +NF-SOLIF5T PO; +OLME40TA18 PO; +PREG100C PO; +TRAM50TA2 PO
== END ==
LOC: LAB 10:08
PROVIDERS: ATTEND Internal Medicine
DX: E11.8 Type 2 diabetes mellitus with unspecified complications (principal); Z79.4 Long term (current) use of insulin
CPT/HCPCS: 36415; 80061; 83036; 84443

== ENCOUNTER 2017-09-05 09:47 | Inpatient (IN) | payer MEDICARE ==
[~2017-09-05] VITALS: Ht 167.6 cm; Wt 75.1 kg
[~2017-09-05 09:47] MED LIST changes: +NF-SOLIF5T PO; +OLME40TA18 PO; +PREG100C PO; +TRAM50TA2 PO
--- NOTE | 2017-09-05 11:07 | Physical Therapy Evaluation ---
PT Evaluation-General Medical Diagnosis Admission Date Sep 05, 2017 at 10:45 Medical Diagnosis: subdural hematoma Onset Date: Sep 03, 2017 Therapy Diagnosis Therapy Diagnosis: generalized weakness/debility Height/Weight Height (Feet): 5 Height (Inches): 6.00 Weight (Pounds): 165 Weight (Ounces): 8.0 Precautions Precautions/Isolations: Fall Prevention, Standard Precautions Weight Bear Status Right Lower Extremity: Right Full Weight Bearing Left Lower Extremity: Left Full Weight Bearing Referral Physician: Luis Alberto Reason for Referral: Evaluation/Treatment Medical History Pertinent Medical History: CAD, COPD, DM, GERD, HTN, Hypothroidism, Neuropathy , Renal Insufficiency Current History transfer to ARU Reviewed History: Yes Social History Home: Single Level Current Living Status: Other Family Entry Into Home: Stairs With Railing PT Steps Into Home: 3 Prior/Core FIM Prior Level of Function Functional [place] Measure 0=Not Assessed/NA 4=Minimal Assistance 1=Total Assistance 5=Supervision or Setup 2=Maximal Assistance 6=Modified [place] 3=Moderate Assistance 7=Complete [place] Bed Mobility: 6 Transfers (B,C,W/C) (FIM): 6 Gait: 6 PT Evaluation-Current Subjective Patient is very agitated today because her family was late getting to the hospital. Pain Numeric Pain Scale: 0-No Pain Location: No Pain Reported Objective Patient Orientation: Normal For Age Problem Solving: Fair Attachments: IV ROM/Strength ROM Lower Extremities bilateral LE WNL Strenght Lower Extremities right knee flexion/extension 4/5; hip flexion 4/5; DF/PF 4/5; abd/add 4/5 left knee flexion/extension 4/5; hip flexion 4/5; DF/PF 4/5; abd/add 4/5 Integumentary/Posture Integumentary refer to nursing notes Sensory Vision: Wears Glasses Hearing: Functional Sensation Right Lower Extremit: Impaired Sensation Left Lower Extremity: Impaired Transfers Functional [place] Measure 0=Not Assessed/NA 4=Minimal Assistance 1=Total Assistance 5=Supervision or Setup 2=Maximal Assistance 6=Modified [place] 3=Moderate Assistance 7=Complete IndependenceIRFPAI Quality Coding Scale 6 Independent with activity with or without an assistive device 5 Patient requires set up or clean up by helper. Patient completes activity by themselves 4 Supervision or touching assist (CGA). Brothers provide cues , steadying assist 3 The helper provides less than half the effort to complete the activity 2 The helper provides more than half the effort to complete the activity 1 Dependent. The helper does all the effort to complete an activity 7 Patient refused to complete or attempt activity 9 The patient did not perform the activity before the current illness or injury 88 Not attempted due to Medical conditions or safety concerns Transfers (B, C, W/C) (FIM): 4 Scootin Rollin Roll Left to Right (QC): 5 Supine to/from Sit: 5 Sit to/from Stand: 4 Sit to Lying (QC): 5 Lying to Sitting/Side of Bed(Q: 5 Sit to Stand (QC): 4 Chair/Jlx-sc-Pbwoj Xfer(QC): 4 Car Transfer (QC): 4 CGA for safety Gait Does the Patient Walk?: Yes Mode of Locomotion: Walk Anticipated Mode of Locomotion: Walk Gait (FIM): 4 Distance (FIM): 3=150 ft Walk 10 feet (QC): 4 Walk 50 ft with 2 Turns(QC): 4 Walk 150 ft (QC): 4 Walking 10ft/uneven surface-QC: 4 Distance: 150' x 4 Gait Level of Assist: 4 Gait Persons Needed: 1 Gait Assistive Device: FWW Comments/Gait Description slow, steady, functional Wheelchair Training Does the Pt Use a Wheelchair?: No Stairs Stairs (FIM): 1 #of Steps: 1 Level of Assist: 4 1 Step (curb) (QC): 4 4 Steps (QC): 88 Assistive Device: Walker 12 Steps (QC): 88 Balance Sitting Static: Fair Standing Static: Good Standing Dynamic: Good Assessment/Needs 82 y.o. female, will benefit from skilled PT to address functional strength and mobility to improve current LOF and to safely return to home with family as maximum LOF. Patient's family is very attentive and patient appears to be dependent on them. Patient's Hgb is 7.2 and will receive 2 units of PRBC on this date. Rehab Potential: Good PT Resident Doctor Goals Senior Living Goals PT Senior Living Goals Time Frame: Sep 19, 2017 Transfers (B,C,W/C) (FIM): 6 Sit to Lying (QC): 6 Lying-Sitting on Side/Bed(QC): 6 Sit to Stand (QC): 6 Rollin Roll Left to Right (QC): 6 Chair/Hbt-vm-Jisds Xfer(QC): 6 Car Transfer (QC): 6 Does the Patient Walk: Yes Gait (FIM): 6 Gait distance (FIM): 3=150 ft Distance: 200' Walk 10 feet (QC): 6 Walk 10ft-Uneven Surface(QC): 6 Walk 50ft with 2 Turns (QC): 6 Walk 150 ft (QC): 6 Gait Level of Assist: 6 Gait Assistive Device: FWW Stairs (FIM): 5 # of Steps: 8 1 Step (curb) (QC): 5 4 Steps (QC): 5 12 Steps (QC): 5 Stairs Level Of Assist: 5 Picking up an Object (QC): 6 PT Plan Problem List Problem List: Activity Tolerance, Functional Strength, Safety, Balance, Gait, Bed Mobility Treatment/Plan Treatment Plan: Continue Plan of Care Treatment Plan: Bed Mobility, Education, Functional Activity Emmy, Functional Strength, Group Therapy, Gait, Safety, Therapeutic Exercise, Transfers Treatment Duration: Sep 19, 2017 Frequency: At least 5 of 7 days/Wk (IRF) Estimated Hrs Per Day: 1.5 hours per day Patient and/or Family Agrees t: Yes Safety Risks/Education Patient Education: Safety Issues Teaching Recipient: Patient, Family Teaching Methods: Demonstration, Discussion Response to Teaching: Verbalize Understanding, Return Demonstration Discharge Recommendations Therapy D/C Recommendations: Home w/ Family Support Time/GCodes Time In: 1020 Time Out: 1105 Total Billed Treatment Time: 45 Total Billed Treatment 1 visit EVModC 25 min FA 20 min GREGORIO AMADO PT Sep 05, 2017 11:07
--- NOTE | 2017-09-05 11:27 | PM&R Post Admission Assessment ---
Post Admission Physician Asses The preadmission screen agrees with the post admission assessment that the patient is a good candidate for inpatient rehabilitation. The patient will have a comprehensive program of inpatient rehabilitation with a goal of maximizing level of functional independence prior to discharge home with family and HHC. The patient will have PT/OT ninety minutes per day, each discipline, five days a week for gait, strengthening, conditioning, balance, ADLs, any patient/family/caregiver training as necessary. Speech therapy to do cognitive assessment and treat as indicated. Rehabilitation nursing to assist with bowel, bladder, skin, wound care, medication administration, pain management. Lead Auditor to assist with discharge planning, community reentry. SCD's for DVT prophylaxis. She appears to be well motivated to participate in three hours of therapy a day. She should be able to tolerate three hours of therapy a day from a medical standpoint. She should benefit from the three hours of therapy a day. She has a reasonable discharge plan, reasonable discharge rehabilitation goals and a supportive family. She has various comorbidities that need to be closely monitored with medications and treatments adjusted on a daily basis as needed. These include: CAP Acute Renal Failure Multiple falls HTN DM Chronic anemia Barriers to discharge for this patient who had been Modified independent prior to this are for her to be modified independent to supervision for ADLs and mobility skills prior to discharge home with family and HHC, so as to lessen the burden of the caregivers. Risks for this patient include: 1. Fall 2. Fracture 3. DVT 4. Pulmonary embolism 5. Wound infection 6. Skin breakdown 7. Contractures 8. Poorly controlled pain 9. Urinary retention 10. UTI 11. Respiratory infection 12. Aspiration 13.recurrent cerebral bleed 14. Poorly controlled HTN 15. Poorly controlled DM Estimated Length of Stay: 18 days Prognosis: Rehab prognosis appears good for goal of discharge home with family and HHC modified independent to supervision for ADLs and mobility skills. LINDA MCKEON MD Sep 05, 2017 11:27
[2017-09-05] MEDS ORDERED: ACETAMINOPHEN 500 MG TAB (TYLENOL) PO PRN (11:45)
[2017-09-05] MEDS ORDERED: CATHETER FLUSH 10 ML SYR IV PRN (11:45)
[2017-09-05] MEDS ORDERED: RT-ALBUTEROL/IPRATROPIUM 3 ML (DUONEB) VIAL INH PRN (11:45)
[2017-09-05] MEDS ORDERED: guaiFENesin/DM (ROBITUSSIN DM) 10 ML UDC PO PRN (11:45)
[2017-09-05] MEDS ORDERED: NS IV 1000 ML 1,000 ML IV SCH (11:45)
[2017-09-05] MEDS ORDERED: hydrALAZINE (APESOLINE) 20 MG/ML VIAL IV PRN (11:45)
[2017-09-05] MEDS ORDERED: ARTIFICAL TEARS 0.4 ML UNIT DOSE (REFRESH PLUS) OU PRN (11:45)
[2017-09-05] MEDS ORDERED: D5 1/2 NS 1000 ML IV SOLUTION 1,000 ML IV SCH (11:45)
[2017-09-05 11:59] VITALS: BP 114/61
[2017-09-05 12:13] VITALS: BP 128/65
--- NOTE | 2017-09-05 12:37 | HISTORY AND PHYSICAL ---
DATE OF SERVICE: 09/05/2017 CHIEF COMPLAINT: Difficulty with walking. HISTORY OF PRESENT ILLNESS: The patient is an 82-year-old female who lives with her daughter in [place], [place], [place] and [place], [place] who has a history of falls who was admitted to hospitalist service at [facility] on 09/01/2017 due to presumed pneumonia and generalized weakness. To the history of falls, a CT of the head and neck was obtained, which revealed small subdural hematoma, which was managed medically. She was treated for her pneumonia and shortness of breath and is now referred to inpatient rehabilitation unit for ongoing therapies. She does have chronic anemia, but now with acute on chronic with a hemoglobin today of 7.2 and she is due to receive transfusion of 1 unit of packed red blood cells. Etiology of this is uncertain. I believe, she had been receiving Epoetin in [facility] for this, however in the past. She reports having been modified with a walker, independent with a walker prior to this, but she said she does not always use it. Currently, she is min assist for ambulation with a front wheel walker. She is standby to min assist for transfers. She has limited endurance, fatigues easily. She is set up for eating and grooming and upper body dressing, min assist for lower body dressing and bathing. PAST MEDICAL HISTORY: Multiple falls, current UTI on Rocephin. Community-acquired pneumonia on Rocephin at this time. Chronic kidney disease stage IV, hypertension, noninsulin-dependent type 2 diabetes mellitus, hypothyroidism on replacement, chronic anemia. She is on SCDs for DVT prophylaxis at this time. 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 Frye, [facility]. ALLERGIES: PENICILLIN. FAMILY HISTORY: Noncontributory. SOCIAL HISTORY: , lives with her daughter and son-in-law. REVIEW OF SYSTEMS: A 10-point review of systems is significant for falls, arthritic pain, limited endurance and shortness of breath. MEDICATIONS: Furosemide 40 mg p.o. daily, levothyroxine 125 mcg p.o. daily, Rocephin 1 gram q.24 hours. Amlodipine 10 mg p.o. daily, Robitussin-DM 50 mL p.o. every 4 hours p.r.n. cough, NovoLog insulin 7 units subQ b.i.d., Levemir insulin 40 units subcu b.i.d., metoprolol 25 mg p.o. b.i.d. Trazodone 100 mg p.o. daily at bedtime, Refresh eyedrops one drop both eyes as needed for dry eyes. Celexa 20 mg p.o. daily at bedtime. Tessalon Perles 100 mg p.o. b.i.d., Lipitor 40 mg p.o. daily at bedtime, DuoNeb treatments every 2 hours p.r.n. wheezing, Tylenol 500 mg p.o. q.6 hours p.r.n. mild pain. PHYSICAL EXAMINATION: GENERAL: Significant for pleasant elderly female sitting up in chair, in no acute distress. VITAL SIGNS: Blood pressure 131/66. She is afebrile, pulse is 86, respirations 20, O2 sat 97% on room air. HEENT: Vision, speech, hearing is functional. No oral lesion is noted. NECK: Supple without mass. HEART: Regular rhythm. CHEST: Few expiratory wheezes. ABDOMEN: Soft, nontender, bowel sounds present. EXTREMITIES: Trace nonpitting edema in ankles. No calf tenderness. MUSCULOSKELETAL: The patient has functional active range of motion of all 4 extremities. NEUROLOGIC: She has well-healed surgical scars from bilateral total knee replacements in the past over the knees, Strength BUES 4/5.Both lower limbs 4/ 5. Sensation is grossly intact to touch. Cognition is grossly intact. IMPRESSION: 1. Ambulatory dysfunction secondary to fall with resultant subdural hematoma, small, managed nonsurgically on SCDs for DVT prophylaxis. 2. History of falls. 3. UTI, E. coli, on Rocephin. 4. Community-acquired pneumonia on Rocephin. 5. Acute renal failure, resolved with underlying chronic kidney disease stage IV. Dr. Bui PCP. 6. Hypertension, controlled with medication. 7. Chronic anemia with dropping hemoglobin and received transfusion today. 8. Hypothyroidism, on replacement. 9. Noninsulin dependent type 2 diabetes mellitus on meds with blood sugar low this a.m., basal insulin decreased. 8. Deep venous thrombosis prophylaxis on SCDs. PLAN: The patient will have a comprehensive program of inpatient rehabilitation with a goal of maximizing level of functional independence prior to discharge home with family and home health care. The patient will be seen by PT, OT daily as per post-admission physician evaluation note, see that note for details. Speech therapy to cognitive assessment, treat as indicated. Rehabilitation, nursing to assist with bowel, bladder, skin, wound care, medication synagogue and blood transfusion. Follow up labs as per Dr. Rivas and hospitalist service, therapy with cardiac and fall precautions. Continue current medications. tobacco farmworker will assist with discharge planning, community reentry. Monitor Accu-Cheks and adjust this insulin as appropriate. Follow up with Dr. Caldera, pulmonology p.r.n. Continue respiratory treatments with respiratory therapy. She will monitor O2 sats. ESTIMATED LENGTH OF STAY: 18 days. PROGNOSIS: Rehabilitation prognosis appears good for goals of discharging home with family, modified independence to supervision for ADLs and mobility skills. DIET: Carb consistent. CODE STATUS: Full code. Job ID: [id number] DocumentID: [id number] Dictated Date: 09/05/2017 11:50:25 Data Center Project Manager Date: 09/05/2017 12:36:52 Dictated By: LINDA MCKEON MD MTDD
[2017-09-05] MEDS ORDERED: INSU100V5 SQ (13:17)
--- NOTE | 2017-09-05 13:18 | Occupational Therapy Eval ---
OT Evaluation-General/PLF Medical Diagnosis Admission Date Sep 05, 2017 at 10:45 Medical Diagnosis: subdural hematoma Onset Date: Sep 03, 2017 Therapy Diagnosis Therapy Diagnosis: decreased self care skills Height/Weight Height (Feet): 5 Height (Inches): 6.00 Weight (Pounds): 165 Weight (Ounces): 8.0 Precautions Precautions/Isolations: Fall Prevention, Standard Precautions Referral Physician: Luis Alberto Medical History Pertinent Medical History: CAD, COPD, DM, GERD, HTN, Hypothroidism, Neuropathy , Renal Insufficiency Additional Medical History appendectomy, hysterectomy, joint replacement, anxiety, depression Current History pt had multiple falls at home Reviewed History: Yes Social History Home: Single Level Current Living Status: Other Family (daughter and son-in-law) Entry Into Home: Stairs With Railing Steps Into Home: 3 ADL-Prior Level of Function ADL PLOF Comments Pt reports being independent with basic self care, but she has supervision during shower transfers and bathing. Pt states she has a FWW if needed, but has not been using it. DME/Equipment: Bath Chair, Shower, Toilet/[address] Self: No OT Current Status Subjective Pt sitting in chair, agrees to therapy. No c/o pain. Mental Status/Objective Patient Orientation: Person, Place Attachments: IV Current Glasses/Contacts: Yes Hearing Aids: No Dentures/Partials: Yes Hand Dominance: Right Upper Extremity ROM Grossly WFL Upper Extremity Coordination Intact Upper Extremity Sensation Pt reports occasional numbness in hands Upper Extremity Strength Grossly 4/5 ADL-Treatment ADL-Current Pt agrees to sponge bath and dressing. Pt bathed upper body with set up. Pt able to wash bilateral lower legs. Required minimal assistance to thoroughly wash buttocks. Don pullover shirt with set up. Pt donned pants with CGA for standing balance during pant hike. Doff/don socks with SBA. Pt requests to use restroom. Gait with FWW, cues for safety and assist to manage IV. Transfer to toilet with CGA. Pt able to complete toileting hygiene and clothing management with CGA for safety. Pt combed hair with set up. Pt states she is able to remove /replace dentures for oral care with SBA. Pt fatigues with activity and requests to return to bed after session. Pt sit to supine with SBA. Pt resting in bed with needs met and RN present after session to start blood transfusion. Functional [place] Measure 0=Not Assessed/NA 4=Minimal Assistance 1=Total Assistance 5=Supervision or Setup 2=Maximal Assistance 6=Modified [place] 3=Moderate Assistance 7=Complete IndependenceIRFPAI Quality Coding Scale 6 Independent with activity with or without an assistive device 5 Patient requires set up or clean up by helper. Patient completes activity by themselves 4 Supervision or touching assist (CGA). [place] provide cues , steadying assist 3 The helper provides less than half the effort to complete the activity 2 The helper provides more than half the effort to complete the activity 1 Dependent. The helper does all the effort to complete an activity 7 Patient refused to complete or attempt activity 9 The patient did not perform the activity before the current illness or injury 88 Not attempted due to Medical conditions or safety concerns Eating (FIM): 5 (Pt reports assist to manage containers) Eating (QC): 5 (set up) Grooming (FIM): 5 Oral Hygiene (QC): 5 (by report) Bathing (FIM): 4 Shower/Bathe Self (QC): 3 Upper Body Dressing (FIM): 5 Upper Body Dressing (QC): 5 Lower Body Dressing (FIM): 4 (CGA) Lower Body Dressing (QC): 4 (CGA) On/Off Footwear (QC): 4 Toileting (FIM): 4 (CGA) Toileting Hygiene (QC): 4 Toilet/Commode Transfer (FIM): 4 (CGA) Toilet Transfer (QC): 4 Education OT Patient Education: Rehab process Teaching Recipient: Patient Teaching Methods: Discussion Response to Teaching: Verbalize Understanding OT Short Term Goals Short Term Goals 1=Demonstrate adherence to instructed precautions during ADL tasks. 2=Patient will verbalize/demonstrate understanding of assistive devices/ modifications for ADL. 3=Patient will improve strength/tolerance for activity to enable patient to perform ADL's. OT Nursing Home Goals Nursing Home Goals Time Frame: Sep 26, 2017 Eating (FIM): 6 Eating (QC): 6 Groomin Oral Hygiene (QC): 6 Bathing(FIM): 5 Shower/Bathe Self (QC): 5 Upper Body Dressing(FIM): 6 Upper Body Dressing (QC): 6 Lower Body Dressing(FIM): 6 Lower Body Dressing (QC): 6 On/Off Footwear (QC): 6 Toileting(FIM): 6 Toileting Hygiene (QC): 6 Toilet/Commode Transfer(FIM): 6 Toilet/Commode Transfer (QC): 6 Shower Transfer(FIM): 5 Additional Goals: 2-Verbalize Understanding, 3-ImproveStrength/Emmy 1=Demonstrate adherence to instructed precautions during ADL tasks. 2=Patient will verbalize/demonstrate understanding of assistive devices/ modifications for ADL. 3=Patient will improve strength/tolerance for activity to enable patient to perform ADL's. OT Education/Plan Problem List/Assessment Assessment: Decreased Activ Tolerance, Decreased UE Strength, Dependent Transfers, Impaired Self-Care Skills Pt demonstrates decreased activity tolerance, strength,mobility, and ADL functioning. Pt to benefit from skilled OT intervention for ADL training, transfers, strengthening, and home safety education to maximize level of function and allow safe return home with family support. Discharge Recommendations Plan/Recommendations: Continue POC Treatment Plan/Plan of Care Treatment,Training & Education: Yes Patient would benefit from OT for education, treatment and training to promote independence in ADL's, mobility, safety and/or upper extremity function for ADL' s. Plan of Care: ADL Retraining, Functional Mobility, Group Exercise/Act as Ind, UE Funct Exercise/Act Treatment Duration: Sep 26, 2017 Frequency: At least 5 of 7 days/Wk (IRF) Estimated Hrs Per Day: 1.5 hours per day Agreement: Yes Rehab Potential: Good Time/GCodes Start Time: 11:15 Stop Time: 12:00 Total Time Billed (hr/min): 45 Billed Treatment Time 1 visit, EVM(15minutes), ADLx2(30minutes) JEMMA JACKSON OT Sep 05, 2017 13:18
--- NOTE | 2017-09-05 13:26 | Physical Therapy Progress Note ---
Therapy Progress Note PT assisted patient from bathroom CGA with patient returning to chair. Patient is receiving first of 2 units of PRBC secondary to low Hgb. Patient is extremely fatigued and tolerates minimal activity on this date. PT will increase activity as tolerated by patient. 1 visit GREGORIO AMADO PT Sep 05, 2017 13:25
--- NOTE | 2017-09-05 13:38 | Occ Therapy Progress Note ---
Therapy Progress Note Pt sitting up in chair, eating lunch this pm. Pt is fatigued at this time and is receiving PRBC. Will increase activity as pt able to to tolerate. 1, visit JEMMA JACKSON OT Sep 05, 2017 13:38
[2017-09-05] MEDS: BENZONATATE 100 MG (TESSALON) CAPSULE PO SCH ×2 (14:29→21:09)
--- NOTE | 2017-09-05 14:39 | ST Cognitive Linguistic Eval ---
Speech Evaluation-General Medical Diagnosis subdural hematoma Onset Date: Sep 03, 2017 Therapy Diagnosis Therapy Diagnosis: Cognitive Linguistic Skills WNL Precautions Precautions/Isolations: Fall Prevention, Standard Precautions Referral Referring Physician: Dr. Anibal Sahu Reason for Referral: Evaluation/Treatment Cognitive Evaluation Medical History Pertinent Medical History: CAD, COPD, DM, GERD, HTN, Hypothroidism, Neuropathy , Renal Insufficiency Reviewed History: Yes Social History Current Living Status: Other Family (daughter and son-in-law) Speech PLF-Current Status Prior Level of Function The patient denied prior or current challenges with her speech, language, or communication ability. Subjective The patient was seated upright in bed upon entrance. The patient greeted the clinician and was agreeable to participation in the cognitive evaluation, however, stated, "I just want to go home. I can do all of this at home." Language Eval: Auditory Comprehends Simple Yes/No Ques: Functional Indent/Objects Multiple [place]: Functional Ident/Pics in Multiple [place]: Functional Follows 1-Step Commands: Functional Follows Complex Directions: Functional Follows General Conversations: Functional Language Eval: Verbal Language Completes Spontaneous Greeting: Functional Produces Auto, Serial Info: Functional Imitates Simple Words/Phrases: Functional Word Finding: Functional Requests Basic Needs: Functional States Basic Personal Info: Functional Expresses Complex Ideas: Functional Cognitive Patient Orientation The patient was independently oriented to self, location, month, day of week, date, and year. Objective Cognitive Domain Attention: WNL Memory: WNL Problem Solving: Functional Objective Impression The patient demonstrated cognitive linguistic skills WNL and appropriate for completion of ADL's. Communication/Social Cognition Comprehension: 6 Expression: 6 Social Interaction: 5 Problem Solvin Memory: 5 Speech Patient Assess Expression of Ideas/Wants: Exhibits (3) Understanding [place] Content: Usually Understands (3) Brief Interview-Mental Status: Yes Repetition of Three Words: Three (3) Temporal Orientation: Year: Correct (3) Temporal Orientation: Month: Accurate within 5 days(2) Temporal Orientation: Day: Correct (1) Recall : Wear to say "Sock": Yes,after cueing (1) Recall : Color: Yes, no cue required (2) Recall : Bed: Yes,after cueing (1) Speech-Plan Treatment Plan Speech Therapy Treatment Plan: Discontinue ST Evaluation, only. Frequency: Modified Program (IRF) Estimated Hrs Per Day: Other Rehab Potential: Good Safety Risks/Education Teaching Recipient: Patient Teaching Methods: Discussion Response to Teaching: Verbalize Understanding Education Topics Provided: Results, Recommendations, Plan of Care Time Speech Therapy Time In: 14:05 Speech Therapy Time Out: 14:20 Total Billed Time: 15 Billed Treatment Time 1, LOBITO SALAS Sep 05, 2017 14:39
[2017-09-05 15:07] VITALS: BP 156/67
[2017-09-05 15:22] LABS: HEMOGLOBIN 9.1 G/DL (11.5-16.0)
[2017-09-05 18:10] VITALS: BP 138/68
[2017-09-05] MEDS: RT-ALBUTEROL/IPRATROPIUM 3 ML (DUONEB) VIAL INH SCH ×2 (19:23→21:57)
[2017-09-05] MEDS: traZODone 100 MG (DESYREL) TAB PO SCH (21:09)
[2017-09-05] MEDS: meTOprolol TARTRATE 25 MG (LOPRESSOR) TABLET PO SCH (21:09)
[2017-09-05] MEDS: ATORVASTATIN 40 MG (LIPITOR) TABLET PO SCH (21:10)
[2017-09-05] MEDS: inSUlin DETERMIR 1 UNIT/0.01 ML (LEVEMIR) CHARGE PER UNIT SQ SCH (21:10)
[2017-09-05] MEDS: inSUlin ASPART (NovoLOG) 1 UNIT/0.01 ML (CHARGE PER UNIT) SQ SCH (21:11)
[2017-09-06] MEDS: RT-ALBUTEROL/IPRATROPIUM 3 ML (DUONEB) VIAL INH SCH ×4 (01:14→19:34)
[2017-09-06 03:00] VITALS: BP 149/74
[2017-09-06] MEDS: LEVOTHYROXINE 125 MCG (LEVOTHROID) TABLET PO SCH (06:10)
[2017-09-06 06:53] LABS: BASOPHILS # (AUTO) 0.1 10^3/uL (0.0-0.1); BASOPHILS % (AUTO) 1 % (0-10); EOSINOPHILS # (AUTO) 0.2 10^3/uL (0.0-0.3); EOSINOPHILS % (AUTO) 2 % (0-10); HEMATOCRIT 26 % (35-52); HEMOGLOBIN 8.6 G/DL (11.5-16.0); LYMPHOCYTES # (AUTO) 1.6 X 10^3 (1.0-4.0); LYMPHOCYTES % (AUTO) 15 % (12-44); MEAN CORPUSCULAR HEMOGLOBIN 27 PG (25-34); MEAN CORPUSCULAR HGB CONC 33 G/DL (32-36); MEAN CORPUSCULAR VOLUME 83 FL (80-99); MEAN PLATELET VOLUME 9.6 FL (7.4-10.4); MONOCYTES # (AUTO) 0.7 X 10^3 (0.0-1.0); MONOCYTES % (AUTO) 6 % (0-12); NEUTROPHILS % (AUTO) 76 % (42-75); PLATELET COUNT 180 10^3/uL (130-400); RED BLOOD COUNT 3.16 10^6/uL (4.35-5.85); RED CELL DISTRIBUTION WIDTH 14.9 % (10.0-14.5); WHITE BLOOD COUNT 10.5 10^3/uL (4.3-11.0)
[2017-09-06 07:18] LABS: CALCIUM 9.9 MG/DL (8.5-10.1); CREATININE SERUM 1.16 MG/DL (0.60-1.30); POTASSIUM 4.3 MMOL/L (3.6-5.0)
[2017-09-06 09:14] VITALS: BP 145/66
[2017-09-06] MEDS: amLODIPine 5 MG (NORVASC) TAB PO SCH (09:16)
[2017-09-06] MEDS: cefTRIAXone INJECTION 1,000 MG in NS (IVPB) 50 ML IV SCH (09:16)
[2017-09-06] MEDS: BENZONATATE 100 MG (TESSALON) CAPSULE PO SCH ×3 (09:16→20:40)
[2017-09-06] MEDS: meTOprolol TARTRATE 25 MG (LOPRESSOR) TABLET PO SCH ×2 (09:16→20:41)
[2017-09-06] MEDS: FUROSEMIDE 40 MG (LASIX) TAB PO SCH (09:16)
[2017-09-06] MEDS: inSUlin DETERMIR 1 UNIT/0.01 ML (LEVEMIR) CHARGE PER UNIT SQ SCH ×2 (09:44→20:41)
[2017-09-06] MEDS: inSUlin ASPART (NovoLOG) 1 UNIT/0.01 ML (CHARGE PER UNIT) SQ SCH (09:45)
--- NOTE | 2017-09-06 12:31 | Physical Therapy Daily Note ---
PT Daily Note-Current Subjective Pt laying Supine in bed upon arrival. Pt agrees to PT but reports "I feel like this is just a waste of time. I could be doing all of this at home. I live with my family and they help me. I would like to leave by Friday". Pain Location: No Pain Reported Mental Status Patient Orientation: Person, Place, Time, Situation Transfers Functional [place] Measure 0=Not Assessed/NA 4=Minimal Assistance 1=Total Assistance 5=Supervision or Setup 2=Maximal Assistance 6=Modified [place] 3=Moderate Assistance 7=Complete IndependenceIRFPAI Quality Coding Scale 6 Independent with activity with or without an assistive device 5 Patient requires set up or clean up by helper. Patient completes activity by themselves 4 Supervision or touching assist (CGA). [place] provide cues , steadying assist 3 The helper provides less than half the effort to complete the activity 2 The helper provides more than half the effort to complete the activity 1 Dependent. The helper does all the effort to complete an activity 7 Patient refused to complete or attempt activity 9 The patient did not perform the activity before the current illness or injury 88 Not attempted due to Medical conditions or safety concerns Scootin Rollin Roll Left to Right (QC): 6 Supine to/from Sit: 5 Sit to/from Stand: 5 Sit to Stand (QC): 5 Weight Bearing Right Lower Extremity: Right Weight Bearing/Tolerated Left Lower Extremity: Left Weight Bearing/Tolerated Gait Training Does the Patient Walk?: Yes Distance (FIM): 1=up to 49 ft Distance: 30' Walk 10 feet (QC): 5 Gait Level of Assist: 5 Gait Persons Needed: 1 Gait Assistive Device: FWW Pt walks with normalized gait pattern. Wheelchair Training Does the Pt Use a Wheelchair?: No Treatments Pt transfers to EOB to eat then decides she needs to use restroom. Pt transfers from EOB to standing using FWW at SBA. Pt ambulates to restroom then back to EOB using FWW at SBA. Pt resting at EOB to eat lunch with all needs met at end of tx. Assessment Current Status: Good Progress Pt reports feeling ready to discharge from ARU and has family help. Pt is high functioning and is SBA with transfers and ambulation. PT Spacecraft Systems Engineer Goals Spacecraft Systems Engineer Goals PT Fpc Goals Time Frame: Sep 19, 2017 Transfers (B,C,W/C) (FIM): 6 Sit to Lying (QC): 6 Lying-Sitting on Side/Bed(QC): 6 Sit to Stand (QC): 6 Rollin Roll Left to Right (QC): 6 Chair/Dez-uq-Vkopd Xfer(QC): 6 Car Transfer (QC): 6 Does the Patient Walk: Yes Gait (FIM): 6 Gait distance (FIM): 3=150 ft Distance: 200' Walk 10 feet (QC): 6 Walk 10ft-Uneven Surface(QC): 6 Walk 50ft with 2 Turns (QC): 6 Walk 150 ft (QC): 6 Gait Level of Assist: 6 Gait Assistive Device: FWW Stairs (FIM): 5 # of Steps: 8 1 Step (curb) (QC): 5 4 Steps (QC): 5 12 Steps (QC): 5 Stairs Level Of Assist: 5 Picking up an Object (QC): 6 PT Plan Problem List Problem List: Activity Tolerance Treatment/Plan Treatment Plan: Continue Plan of Care Treatment Plan: Bed Mobility, Education, Functional Activity Emmy, Functional Strength, Group Therapy, Gait, Safety, Therapeutic Exercise, Transfers Treatment Duration: Sep 19, 2017 Frequency: At least 5 of 7 days/Wk (IRF) Estimated Hrs Per Day: 1.5 hours per day Patient and/or Family Agrees t: Yes Safety Risks/Education Patient Education: Transfer Techniques, Correct Positioning, Safety Issues Teaching Recipient: Patient Teaching Methods: Discussion Response to Teaching: Verbalize Understanding Time/GCodes Time In: 1200 Time Out: 1220 Total Billed Treatment Time: 20 Total Billed Treatment 1, FA (20m) BETHANY HEMPHILL PTA Sep 06, 2017 12:31
[2017-09-06 17:52] VITALS: BP 157/72
[2017-09-06] MEDS: traZODone 100 MG (DESYREL) TAB PO SCH (20:40)
[2017-09-06] MEDS: ATORVASTATIN 40 MG (LIPITOR) TABLET PO SCH (20:40)
[2017-09-07 02:00] VITALS: BP 159/76
[2017-09-07] MEDS: RT-ALBUTEROL/IPRATROPIUM 3 ML (DUONEB) VIAL INH SCH ×4 (02:06→20:41)
[2017-09-07] MEDS: LEVOTHYROXINE 125 MCG (LEVOTHROID) TABLET PO SCH (06:01)
[2017-09-07] MEDS: amLODIPine 5 MG (NORVASC) TAB PO SCH (08:56)
[2017-09-07] MEDS: BENZONATATE 100 MG (TESSALON) CAPSULE PO SCH ×3 (08:56→21:32)
[2017-09-07] MEDS: meTOprolol TARTRATE 25 MG (LOPRESSOR) TABLET PO SCH ×2 (08:56→21:32)
[2017-09-07] MEDS: FUROSEMIDE 40 MG (LASIX) TAB PO SCH (08:56)
[2017-09-07] MEDS: cefTRIAXone INJECTION 1,000 MG in NS (IVPB) 50 ML IV SCH (11:38)
[2017-09-07] MEDS ORDERED: DOCUSATE SODIUM 100 MG (COLACE) CAP PO PRN (11:45)
[2017-09-07] MEDS ORDERED: SENNA W/DOCUSATE (SENOKOT S) TABLET PO PRN (11:45)
[2017-09-07 15:37] VITALS: BP 144/73
[2017-09-07] MEDS: ATORVASTATIN 40 MG (LIPITOR) TABLET PO SCH (21:32)
[2017-09-07] MEDS: POLYETHYLENE GLYCOL 17 GM (MIRALAX) PACK PO SCH (21:32)
[2017-09-07] MEDS: traZODone 100 MG (DESYREL) TAB PO SCH (21:32)
[2017-09-07] MEDS: inSUlin DETERMIR 1 UNIT/0.01 ML (LEVEMIR) CHARGE PER UNIT SQ SCH (21:33)
[2017-09-08] MEDS: RT-ALBUTEROL/IPRATROPIUM 3 ML (DUONEB) VIAL INH SCH ×4 (02:04→20:36)
[2017-09-08 02:26] VITALS: BP 132/74
[2017-09-08] MEDS: POLYETHYLENE GLYCOL 17 GM (MIRALAX) PACK PO SCH (05:22)
[2017-09-08] MEDS: LEVOTHYROXINE 125 MCG (LEVOTHROID) TABLET PO SCH (05:39)
--- NOTE | 2017-09-08 06:04 | Pulmonary Progress Note ---
Subjective Time Seen by Provider: 06:03 Subjective/Events-last exam pt is doing much better. Exam Exam Vital Signs Date Time Temp Pulse Resp B/P (MAP) Pulse Ox O2 Delivery O2 Flow Rate FiO2 09/08/17 02:26 97.7 69 18 132/74 (93) 97 NIV CPAP 09/08/17 02:04 98 NIV CPAP 2.00 09/07/17 20:41 94 Room Air 09/07/17 20:13 Room Air 09/07/17 15:37 98.0 69 18 144/73 (96) 97 Room Air 09/07/17 09:38 94 Room Air 09/07/17 09:25 Room Air I & O 09/08/17 07:00 Intake Total 1200 ml Balance 1200 ml General Appearance: No Apparent Distress, WD/WN HEENT: Normal ENT Inspection, Pharynx Normal Respiratory: No Accessory Muscle Use, No Respiratory Distress, Decreased Breath Sounds Gastrointestinal: normal bowel sounds, non tender, soft, no organomegaly, no pulsatile mass Extremity: Normal Capillary Refill, Normal Inspection, Normal Range of Motion Neurologic/Psychiatric: Alert, Oriented x3 Skin: Normal Color, Warm/Dry Lymphatic: No Adenopathy Results Lab Laboratory Tests 09/06/17 06:43 Assessment/Plan Assessment/Plan s/p Pneumonia Multiple falls with small subdural hematoma -D/w Dr. Rivas and Dr. Maradiaga COPD -[facility] -monitor 232 Clinical Quality Measures DVT/VTE Risk/Contraindication: Risk Factor Score Per Nursin RFS Level Per Nursing on Admit: 3=High AR ALLEN DO Sep 08, 2017 06:04
[2017-09-08] MEDS: meTOprolol TARTRATE 25 MG (LOPRESSOR) TABLET PO SCH ×2 (08:35→21:18)
[2017-09-08] MEDS: BENZONATATE 100 MG (TESSALON) CAPSULE PO SCH ×3 (08:35→21:18)
[2017-09-08] MEDS: FUROSEMIDE 40 MG (LASIX) TAB PO SCH (08:35)
[2017-09-08] MEDS: amLODIPine 5 MG (NORVASC) TAB PO SCH (08:36)
--- NOTE | 2017-09-08 11:52 | Physical Therapy Daily Note ---
PT Daily Note-Current Subjective Pt is laying in bed pre tx with no complaints of pain. Pt agrees to PT. Pain Numeric Pain Scale: 0-No Pain Location: No Pain Reported Appearance Pt is laying in bed post tx with nurse call, phone, and tray within reach. Mental Status Patient Orientation: Normal For Age Transfers Functional [place] Measure 0=Not Assessed/NA 4=Minimal Assistance 1=Total Assistance 5=Supervision or Setup 2=Maximal Assistance 6=Modified [place] 3=Moderate Assistance 7=Complete IndependenceIRFPAI Quality Coding Scale 6 Independent with activity with or without an assistive device 5 Patient requires set up or clean up by helper. Patient completes activity by themselves 4 Supervision or touching assist (CGA). [place] provide cues , steadying assist 3 The helper provides less than half the effort to complete the activity 2 The helper provides more than half the effort to complete the activity 1 Dependent. The helper does all the effort to complete an activity 7 Patient refused to complete or attempt activity 9 The patient did not perform the activity before the current illness or injury 88 Not attempted due to Medical conditions or safety concerns Transfers (B, C, W/C) (FIM): 4 Scootin Rollin Supine to/from Sit: 4 Sit to/from Stand: 4 Bed to/from Chair: 4 CGA necessary for bed mobility and transfers to ensure safety. Weight Bearing Right Lower Extremity: Right Weight Bearing/Tolerated Left Lower Extremity: Left Weight Bearing/Tolerated Gait Training Does the Patient Walk?: Yes Gait (FIM): 2 Distance: 100 feet x2 Gait Level of Assist: 4 Gait Persons Needed: 1 Gait Assistive Device: FWW Wheelchair Training Does the Pt Use a Wheelchair?: No Exercises Supine Ex: Bridging (10 x2), Heel Slides (10 x2 BLE with 1 lb ankle weight), Straight leg raise (10 x2 BLE with 1 lb ankle weight) Side-lying: Hip abduction 10 x1 BLE, Clam shells 10 x1 BLE NuStep Minutes: 10 NuStep Workload: 3 Treatments Pt performed bed mobility, gait training, LE exercises. Assessment Current Status: Good Progress Pt can progress to SBA during next tx for bed mobility and gait training. Pt educated on use of FWW for safety due to history of falling. PT Vp Global Goals Alf Goals PT Alf Goals Time Frame: Sep 19, 2017 Transfers (B,C,W/C) (FIM): 6 Sit to Lying (QC): 6 Lying-Sitting on Side/Bed(QC): 6 Sit to Stand (QC): 6 Rollin Roll Left to Right (QC): 6 Chair/Eky-it-Blxql Xfer(QC): 6 Car Transfer (QC): 6 Does the Patient Walk: Yes Gait (FIM): 6 Gait distance (FIM): 3=150 ft Distance: 200' Walk 10 feet (QC): 6 Walk 10ft-Uneven Surface(QC): 6 Walk 50ft with 2 Turns (QC): 6 Walk 150 ft (QC): 6 Gait Level of Assist: 6 Gait Assistive Device: FWW Stairs (FIM): 5 # of Steps: 8 1 Step (curb) (QC): 5 4 Steps (QC): 5 12 Steps (QC): 5 Stairs Level Of Assist: 5 Picking up an Object (QC): 6 PT Plan Problem List Problem List: Activity Tolerance, Functional Strength, Safety, Balance, Gait, Transfer, Bed Mobility, ROM Treatment/Plan Treatment Plan: Continue Plan of Care Treatment Plan: Bed Mobility, Education, Functional Activity Emmy, Functional Strength, Group Therapy, Gait, Safety, Therapeutic Exercise, Transfers Treatment Duration: Sep 19, 2017 Frequency: At least 5 of 7 days/Wk (IRF) Estimated Hrs Per Day: 1.5 hours per day Patient and/or Family Agrees t: Yes Safety Risks/Education Patient Education: Gait Training, Transfer Techniques, Correct Positioning, Safety Issues Teaching Recipient: Patient Teaching Methods: Demonstration, Discussion Response to Teaching: Reinforcement Needed Time/GCodes Time In: 1015 Time Out: 1100 Total Billed Treatment Time: 45 Total Billed Treatment 1 visit 10 min GT 35 min EX YELENA HOU PT Sep 08, 2017 11:52
--- NOTE | 2017-09-08 12:48 | Occupational Ther Daily Note ---
OT Current Status-Daily Note Subjective Pt alert, sitting on EOB. Finishing up breakfast. Pt agreed to therapy. No c/ o pain. Pt states she wants to go home. Mental Status/Objective Patient Orientation: Person, Place, Time, Situation Functional [place] Measure 0=Not Assessed/NA 4=Minimal Assistance 1=Total Assistance 5=Supervision or Setup 2=Maximal Assistance 6=Modified [place] 3=Moderate Assistance 7=Complete [place] ADL-Treatment After set up, pt able to don/doff upper and lower body clothing with supervision. Pt then ambulated into bathroom with supervision. Mod I for toilet transfer using FWW and grabbars and toileting. Pt ambulated to sink to complete grooming with FWW by self. Functional [place] Measure 0=Not Assessed/NA 4=Minimal Assistance 1=Total Assistance 5=Supervision or Setup 2=Maximal Assistance 6=Modified [place] 3=Moderate Assistance 7=Complete IndependenceIRFPAI Quality Coding Scale 6 Independent with activity with or without an assistive device 5 Patient requires set up or clean up by helper. Patient completes activity by themselves 4 Supervision or touching assist (CGA). [place] provide cues , steadying assist 3 The helper provides less than half the effort to complete the activity 2 The helper provides more than half the effort to complete the activity 1 Dependent. The helper does all the effort to complete an activity 7 Patient refused to complete or attempt activity 9 The patient did not perform the activity before the current illness or injury 88 Not attempted due to Medical conditions or safety concerns Grooming (FIM): 6 Oral Hygiene (QC): 6 Upper Body (FIM): 5 Upper Body Dressing (QC): 5 Lower Body Dressing (FIM): 5 Lower Body Dressing (QC): 4 On/Off Footwear (QC): 5 Toileting (FIM): 6 Toileting Hygiene (QC): 6 Other Treatment Pt ambulated to therapy gym using FWW. Arm bike completed 15 min duration at 15 aldrich resistance to increase strength and activity tolerance for daily functional tasks. Pt then ambulated back to room and transferred into bed by self. Call light/phone in reach. All needs met in room. OT Short Term Goals Short Term Goals 1=Demonstrate adherence to instructed precautions during ADL tasks. 2=Patient will verbalize/demonstrate understanding of assistive devices/ modifications for ADL. 3=Patient will improve strength/tolerance for activity to enable patient to perform ADL's. OT Penitentiary Goals Penitentiary Goals Time Frame: Sep 26, 2017 Eating (FIM): 6 Eating (QC): 6 Groomin Oral Hygiene (QC): 6 Bathing(FIM): 5 Shower/Bathe Self (QC): 5 Upper Body Dressing(FIM): 6 Upper Body Dressing (QC): 6 Lower Body Dressing(FIM): 6 Lower Body Dressing (QC): 6 On/Off Footwear (QC): 6 Toileting(FIM): 6 Toileting Hygiene (QC): 6 Toilet/Commode Transfer(FIM): 6 Toilet/Commode Transfer (QC): 6 Shower Transfer(FIM): 5 Additional Goals: 2-Verbalize Understanding, 3-ImproveStrength/Emmy 1=Demonstrate adherence to instructed precautions during ADL tasks. 2=Patient will verbalize/demonstrate understanding of assistive devices/ modifications for ADL. 3=Patient will improve strength/tolerance for activity to enable patient to perform ADL's. OT Education/Plan Problem List/Assessment Pt demonstrates decreased activity tolerance, strength,mobility, and ADL functioning. Pt to benefit from skilled OT intervention for ADL training, transfers, strengthening, and home safety education to maximize level of function and allow safe return home with family support. Discharge Recommendations Plan/Recommendations: Continue POC Treatment Plan/Plan of Care Patient would benefit from OT for education, treatment and training to promote independence in ADL's, mobility, safety and/or upper extremity function for ADL' s. Plan of Care: ADL Retraining, Functional Mobility, Group Exercise/Act as Ind, UE Funct Exercise/Act Treatment Duration: Sep 26, 2017 Frequency: At least 5 of 7 days/Wk (IRF) Estimated Hrs Per Day: 1.5 hours per day Agreement: Yes Rehab Potential: Good Time/GCodes Start Time: 09:00 Stop Time: 10:00 Total Time Billed (hr/min): 60 Billed Treatment Time 1 visit-ADL 3 (50 min) EX 1 (10 min) GEORGIA HICKMAN Sep 08, 2017 12:48
--- NOTE | 2017-09-08 15:00 | Therapy Group Daily Note ---
Therapy Daily Group Note Patient Education Topic Home Safety Exercises LE Seated Exercise, UE Exercise Other/Notes Pt ambulated with FWW to OT/PT group in therapy gym. Group consisted of introductions (name, first car and what happened to it), socialization, UE/LE seated exercises, home safety education and trivia. Pt introduced self appropriately and actively listened to peers introduce self. Pt was able to contribute to group discussions throughout session. Pt was able to lead different exercises and completed with minimal difficulty. Pt participated in trivia activities for home safety education. Pt demonstrated knowledge in education. After group pt lying in bed with call light/phone in reach. All needs met in room. Start Time: 13:00 Stop Time: 14:30 Total Billed Treatment Time: 90 Total Billed Treatment 1-GEORGIA CASAS Sep 08, 2017 15:00
[2017-09-08 18:01] VITALS: BP 135/68
--- NOTE | 2017-09-08 19:50 | PM & R (SOAP) Progress Note ---
Subjective Time Seen by Provider: 19:45 Subjective/Events-last exam Patient was seen in her room with her family this evening Patient min assist for transfers Appreciate DR Barrios note Objective Exam Last Set of Vital Signs Vital Signs Date Time Temp Pulse Resp B/P (MAP) Pulse Ox O2 Delivery O2 Flow Rate FiO2 09/08/17 18:01 97.5 71 18 135/68 (90) 97 Room Air 09/08/17 02:04 2.00 09/06/17 11:14 21 Capillary Refill : I&O Intake and Output 09/08/17 00:00 Intake Total 960 ml Balance 960 ml Intake Oral 960 ml # Voids 9 # Bowel Movements 1 Results Lab Laboratory Tests 09/06/17 04:40: Glucometer 125H 09/06/17 06:43: White Blood Count 10.5, Red Blood Count 3.16L, Hemoglobin 8.6L, Hematocrit 26L, Mean Corpuscular Volume 83, Mean Corpuscular Hemoglobin 27, Mean Corpuscular Hemoglobin Concent 33, Red Cell Distribution Width 14.9H, Platelet Count 180, Mean Platelet Volume 9.6, Neutrophils (%) (Auto) 76H, Lymphocytes (%) (Auto) 15 , Monocytes (%) (Auto) 6, Eosinophils (%) (Auto) 2, Basophils (%) (Auto) 1, Neutrophils # (Auto) 8.0H, Lymphocytes # (Auto) 1.6, Monocytes # (Auto) 0.7, Eosinophils # (Auto) 0.2, Basophils # (Auto) 0.1, Sodium Level 139, Potassium Level 4.3, Chloride Level 109H, Carbon Dioxide Level 18L, Anion Gap 12, Blood Urea Nitrogen 14, Creatinine 1.16, Estimat Glomerular Filtration Rate 45, BUN/ Creatinine Ratio 12, Glucose Level 120H, Calcium Level 9.9 09/06/17 11:17: Glucometer 249H 09/06/17 16:23: Glucometer 215H 09/06/17 20:35: Glucometer 180H 09/07/17 06:19: Glucometer 53*L 09/07/17 06:30: Glucometer 58*L 09/07/17 06:40: Glucometer 80 09/07/17 11:34: Glucometer 156H 09/07/17 15:35: Glucometer 203H 09/07/17 21:31: Glucometer 188H 09/08/17 05:14: Glucometer 137H 09/08/17 11:30: Glucometer 153H 09/08/17 16:05: Glucometer 156H Assessment/Plan Assessment SDH s/p fall UTI treated Pneumonia treted Chronic anemia s/p transfusion 09-05-17 Type 2 DM Hx of falls DVT Prophylaxis on SCDS Plan Continue PT/OT St has signed off Team Conference 09-10-17 LINDA MCKEON MD Sep 08, 2017 19:50
[2017-09-08] MEDS: traZODone 100 MG (DESYREL) TAB PO SCH (21:18)
[2017-09-08] MEDS: ATORVASTATIN 40 MG (LIPITOR) TABLET PO SCH (21:18)
[2017-09-08] MEDS: inSUlin DETERMIR 1 UNIT/0.01 ML (LEVEMIR) CHARGE PER UNIT SQ SCH (21:18)
--- NOTE | 2017-09-08 23:34 | Consultation ---
History of Present Illness History of Present Illness Patient Consulted On(kelly/time) 09/08/17 16:29 Date Seen by Provider: Sep 08, 2017 Time Seen by Provider: 16:29 History of Present Illness Consult requested for head injury s/p fall. Patient is an 82 year old female who recently having increasing falls. She was admitted for clinically having pneumonia. She was found to have subdural hematoma and was closely monitored and had repeat head ct performed which was stable. Patient was continued to be monitored and no change in neurological status. Patient then was discharged to inpatient rehab for further care. Patient and family are at bedside at this time. They state that she continuing to better. They have not noticed any decline or changes in the patient. Patient states that she is feeling well and wants to go back home. She states her left ankle is feeling better as well but still bruised. She denies any nausea, vomiting fever sweats chills shortness of breath or chest pain. Allergies and Home Medications Allergies Coded Allergies: Penicillins (Verified Allergy, Unknown, Pt has received Ceftriaxone in the past, 09/02/17) influenza virus vaccine, specific (Verified Adverse Reaction, Unknown, Not allergic just won't take Flu vaccine, 09/02/17) Home Medications Albuterol Sulfate 18 Gm Hfa.aer.ad, 2 PUFF INH Q4H PRN for SHORTNESS OF BREATH, (Reported) Alprazolam 0.25 Mg Tablet, 0.25 MG PO DAILY, (Reported) Aspirin 81 Mg Tablet.dr, 81 MG PO DAILY, (Reported) Atorvastatin Calcium 40 Mg Tablet, 40 MG PO HS, (Reported) Citalopram Hydrobromide 20 Mg Tablet, 20 MG PO HS, (Reported) Cyclosporine 1 Each Droperette, 1 DROP OU BID, (Reported) Fish Oil/Dha/Epa 1 Each Capsule, 3,600 MG PO DAILY, (Reported) TAKES 3 (1200MG) CAPSULES Fluticasone Propionate 16 Gm [place].susp, 1 SPRAY NS DAILY, (Reported) Fluticasone/Salmeterol 1 Each Blst.w.dev, 1 PUFF IH BID, (Reported) Folic Acid 0.8 Mg Tablet, 0.8 MG PO DAILY, (Reported) Furosemide 40 Mg Tablet, 40 MG PO DAILY, (Reported) Insulin Aspart 100 Unit/1 Ml Susp, 7 UNIT SQ BID, (Reported) WITH BREAKFAST AND EVENING MEAL Insulin Aspart 100 Unit/1 Ml Susp, 2 UNIT SQ 1200, (Reported) WITH LUNCH Insulin Determir 1,000 Units/10 Ml Soln, 60 UNITS SQ BID, (Reported) Levothyroxine Sodium 125 Mcg Tablet, 125 MCG PO DAILY, (Reported) Loratadine 10 Mg Tablet, 10 MG PO DAILY, (Reported) Meclizine HCl 25 Mg Tablet, 25 MG PO DAILY, (Reported) Metoprolol Succinate 50 Mg Tab.er.24h, 50 MG PO HS, (Reported) Multivitamin 1 Each Tablet, 1 TAB PO DAILY, (Reported) Niacin 1,000 Mg Tab.er.24h, 1,000 MG PO HS, (Reported) Olmesartan Medoxomil 40 Mg Tablet, 40 MG PO DAILY, (Reported) Omeprazole 40 Mg Capsule.dr, 40 MG PO DAILY, (Reported) Polyvinyl Alcohol/Povidone 15 Ml Drops, 1 DROP OU QID PRN for DRY EYES, ( Reported) Pregabalin 100 Mg Capsule, 100 MG PO TID, (Reported) Solifenacin Succinate 5 Mg Tablet, 5 MG PO DAILY, (Reported) Tiotropium [place] 1 Inh Aerp, 1 CAP IH HS, (Reported) Tramadol HCl 50 Mg Tablet, 50 MG PO TID PRN for PAIN-MODERATE, (Reported) Trazodone HCl 100 Mg Tablet, 100 MG PO HS, (Reported) Past Gojcdwh-Eorkly-Cearyl Hx Patient Social History Alcohol Use: Denies Use Recreational Drug Use: No Smoking Status: Never a Smoker 2nd Hand Smoke Exposure: No Recent Foreign Travel: No Contact w/Someone Who Travel: No Recent Infectious Disease Expo: No Recent Hopitalizations: Yes ([id number]) Physical Abuse Screen: No Sexual Abuse: No Immunizations Up To Date Tetanus Booster (TDap): Unknown Date of Pneumonia Vaccine: Aug 28, 2012 Seasonal Allergies Seasonal Allergies: No Surgeries History of Surgeries: Yes (SEVERAL) Surgeries: Appendectomy, Eye Surgery, Hysterectomy, Joint Replacement Respiratory History of Respiratory Disorde: Yes Respiratory Disorders: Pneumonia, Chronic Bronchitis, Sleep Apnea Cardiovascular History of Cardiac Disorders: Yes Cardiac Disorders: Hypertension Neurological History of Neurological Disord: No 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 System Hx 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 Disorders: No Sexually Transmitted Disease: No HIV/AIDS: No Female 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 Disorders: Denies Genitourinary History of Genitourinary Disor: Yes Genitourinary Disorders: Renal Failure, UTI-Chronic Gastrointestinal History of Gastrointestinal Di: Yes Gastrointestinal Disorders: Gastroesophageal Reflux, Polyps, Hiatal Hernia Musculoskeletal History of Musculoskeletal Dis: No Endocrine History of Endocrine Disorders: Yes (THYROID DISEASE) Endocrine Disorders: Diabetes, Insulin dep HEENT HEENT Disorders: Cataract Loss of Vision: Denies Hearing Impairment: Denies Cancer History of Cancer: No Psychosocial History of Psychiatric Problem: Yes Behavioral Health Disorders: Anxiety, Depression Integumentary History of Skin or Integumenta: No Blood Transfusions History of Blood Disorders: Yes (ANEMIA) Adverse Reaction to a Blood Tr: No Family Medical History Significant Family History: No Pertinent Family Hx Family Medial History: Arthritis Cardiovascular disease Diabetes mellitus Hypertension Review of Systems-General Constitutional: no symptoms reported EENTM: no symptoms reported Respiratory: no symptoms reported Cardiovascular: no symptoms reported Gastrointestinal: no symptoms reported Genitourinary: no symptoms reported Musculoskeletal: no symptoms reported Skin: no symptoms reported Psychiatric/Neurological: No Symptoms Reported Physical Exam-General Problems Physical Exam Vital Signs Vital Signs - First Documented 09/05/17 09/05/17 09/05/17 11:59 14:12 21:57 Temp 97.9 Pulse 79 Resp 18 B/P (MAP) 114/61 Pulse Ox 96 O2 Delivery Room Air O2 Flow Rate 2.00 FiO2 21 Capillary Refill : General Appearance: no apparent distress HEENT: PERRL/EOMI, normal ENT inspection Neck: non-tender, full range of motion, supple Respiratory: no accessory muscle use Cardiovascular: regular rate, rhythm Gastrointestinal: non tender, soft, no organomegaly Rectal: deferred Back: no CVA tenderness Extremities: other (minimal tenderness left ankle) 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 II-XII nml as tested, no motor/sensory deficits, alert, normal mood/affect, oriented x 3 Skin: warm/dry, ecchymosis (diffusely scattered) Lymphatic: no adenopathy Data Review Labs Laboratory Tests 09/08/17 05:14: Glucometer 137H 09/08/17 11:30: Glucometer 153H 09/08/17 16:05: Glucometer 156H 09/08/17 21:17: Glucometer 251H Assessment/Plan Assessment/Plan Assessment/Plan SDH s/p fall UTI treated Pneumonia treated Chronic anemia s/p transfusion 09-05-17 Type 2 DM Hx of falls DVT Prophylaxis on SCDS patient neurologically intact, if any change in neurological exam would repeat ct head at that time. If no changes would continue with medical and rehab treatment. No surgical intervention, will sign off, call if needed. Clinical Quality Measures DVT/VTE Risk/Contraindication: Risk Factor Score Per Nursin RFS Level Per Nursing on Admit: 3=High FLOYD CORNEJO DO Sep 08, 2017 23:34
[2017-09-09] MEDS: RT-ALBUTEROL/IPRATROPIUM 3 ML (DUONEB) VIAL INH SCH ×3 (03:00→19:10)
[2017-09-09 04:22] VITALS: BP 159/75
[2017-09-09] MEDS: LEVOTHYROXINE 125 MCG (LEVOTHROID) TABLET PO SCH (05:56)
[2017-09-09 05:59] VITALS: BP 159/75
[2017-09-09] MEDS: amLODIPine 5 MG (NORVASC) TAB PO SCH (08:32)
[2017-09-09] MEDS: FUROSEMIDE 40 MG (LASIX) TAB PO SCH (08:32)
[2017-09-09] MEDS: meTOprolol TARTRATE 25 MG (LOPRESSOR) TABLET PO SCH ×2 (08:32→20:45)
[2017-09-09] MEDS: BENZONATATE 100 MG (TESSALON) CAPSULE PO SCH ×3 (08:33→20:45)
--- NOTE | 2017-09-09 10:57 | Physical Therapy Daily Note ---
PT Daily Note-Current Subjective Pt. states right off that she is ready to go home and feels very frustrated like she is being held here. " My family wants me to get home soon" Pain Numeric Pain Scale: 0-No Pain Mental Status Patient Orientation: Normal For Age Transfers Functional [place] Measure 0=Not Assessed/NA 4=Minimal Assistance 1=Total Assistance 5=Supervision or Setup 2=Maximal Assistance 6=Modified [place] 3=Moderate Assistance 7=Complete IndependenceIRFPAI Quality Coding Scale 6 Independent with activity with or without an assistive device 5 Patient requires set up or clean up by helper. Patient completes activity by themselves 4 Supervision or touching assist (CGA). [place] provide cues , steadying assist 3 The helper provides less than half the effort to complete the activity 2 The helper provides more than half the effort to complete the activity 1 Dependent. The helper does all the effort to complete an activity 7 Patient refused to complete or attempt activity 9 The patient did not perform the activity before the current illness or injury 88 Not attempted due to Medical conditions or safety concerns Transfers (B, C, W/C) (FIM): 6 Scootin Rollin Roll Left to Right (QC): 6 Supine to/from Sit: 6 Sit to/from Stand: 6 Sit to Lying (QC): 6 Sit to Stand (QC): 6 Chair/Wxo-rk-Bpapp Xfer(QC): 6 Bed to/from Chair: 6 Car Transfer (QC): 6 Weight Bearing Right Lower Extremity: Right Weight Bearing/Tolerated Left Lower Extremity: Left Weight Bearing/Tolerated Gait Training Does the Patient Walk?: Yes Gait (FIM): 6 Distance (FIM): 3=150 ft (250,200) Walk 10 feet (QC): 6 Walk 50 ft with 2 Turns(QC): 6 Walk 150 ft (QC): 6 Walking 10ft/uneven surface-QC: 6 Gait Level of Assist: 6 Gait Persons Needed: 0 Gait Assistive Device: FWW Wheelchair Training Does the Pt Use a Wheelchair?: No Stair Training Stair Training: Handrails/: 2 handrails Stairs (FIM): 6 #of Steps: 12 1 Step (curb) (QC): 6 4 Steps (QC): 6 12 Steps (QC): 6 Stairs: Pattern: Reciprocal Level of Assist: 6 Balance Special Test Comments unsafe to attempt at this time Exercises Supine Ex: Bridging, Ankle pumps, Quad Set, Rolling, Glut sets, Heel Slides, Short Arc Quads, Scooting, Straight leg raise, Hip abd/add (side and supine) Supine Reps: 15 Seated Therapy Exercises: Ankle pumps, Sit to stand, Long arc quads, Hip flexion, Hip abd/add Seated Reps: 12 Treatments toileted x 2 indep Assessment Current Status: Excellent Progress meets goals PT [facility] Goals [facility] Goals PT [employer] Goals Time Frame: Sep 19, 2017 Transfers (B,C,W/C) (FIM): 6 Sit to Lying (QC): 6 Lying-Sitting on Side/Bed(QC): 6 Sit to Stand (QC): 6 Rollin Roll Left to Right (QC): 6 Chair/Lnn-rt-Aujsw Xfer(QC): 6 Car Transfer (QC): 6 Does the Patient Walk: Yes Gait (FIM): 6 Gait distance (FIM): 3=150 ft Distance: 200' Walk 10 feet (QC): 6 Walk 10ft-Uneven Surface(QC): 6 Walk 50ft with 2 Turns (QC): 6 Walk 150 ft (QC): 6 Gait Level of Assist: 6 Gait Assistive Device: FWW Stairs (FIM): 5 # of Steps: 8 1 Step (curb) (QC): 5 4 Steps (QC): 5 12 Steps (QC): 5 Stairs Level Of Assist: 5 Picking up an Object (QC): 6 PT Plan Treatment/Plan Treatment Plan: Continue Plan of Care Treatment Plan: Bed Mobility, Education, Functional Activity Emmy, Functional Strength, Group Therapy, Gait, Safety, Therapeutic Exercise, Transfers Treatment Duration: Sep 19, 2017 Frequency: At least 5 of 7 days/Wk (IRF) Estimated Hrs Per Day: 1.5 hours per day Patient and/or Family Agrees t: Yes Safety Risks/Education Patient Education: Gait Training, Transfer Techniques, Steps, Correct Positioning, Disease Process, Safety Issues Teaching Recipient: Patient Teaching Methods: Demonstration, Discussion Response to Teaching: Verbalize Understanding, Return Demonstration Time/GCodes Time In: 1000 Time Out: 1100 Total Billed Treatment Time: 60 Total Billed Treatment 1,FA25,EX15,GT20 G Codes Necessary: No JAQUAN THAKUR JAVA SYBASE DEVELOPER Sep 09, 2017 10:57
--- NOTE | 2017-09-09 11:20 | Occupational Ther Daily Note ---
OT Current Status-Daily Note Subjective Pt sitting EOB, agrees to treatment. Pt has no c/o pain. States she wants to go home soon. Mental Status/Objective Functional [place] Measure 0=Not Assessed/NA 4=Minimal Assistance 1=Total Assistance 5=Supervision or Setup 2=Maximal Assistance 6=Modified [place] 3=Moderate Assistance 7=Complete [place] ADL-Treatment Pt requests shower this morning. Sit to stand from bed with modified independence. Pt retrieved clothing from closet with supervision for balance. Gait to restroom with FWW. Pt transferred to toilet with modified independence. Pt able to complete toileting hygiene and clothing management with modified independence. Pt transferred to walk in shower with SBA using grab bars. Doffed clothing without assistance. Pt completed seated bathing using hand held shower. Pt able to wash/dry all areas after set up. Don pullover shirt with set up. Pt donned Depends and pants with SBA for balance during pant hike. Don socks with set up. Pt completed grooming tasks with modified independence. Functional [place] Measure 0=Not Assessed/NA 4=Minimal Assistance 1=Total Assistance 5=Supervision or Setup 2=Maximal Assistance 6=Modified [place] 3=Moderate Assistance 7=Complete IndependenceIRFPAI Quality Coding Scale 6 Independent with activity with or without an assistive device 5 Patient requires set up or clean up by helper. Patient completes activity by themselves 4 Supervision or touching assist (CGA). [place] provide cues , steadying assist 3 The helper provides less than half the effort to complete the activity 2 The helper provides more than half the effort to complete the activity 1 Dependent. The helper does all the effort to complete an activity 7 Patient refused to complete or attempt activity 9 The patient did not perform the activity before the current illness or injury 88 Not attempted due to Medical conditions or safety concerns Grooming (FIM): 6 Oral Hygiene (QC): 6 Bathing (FIM): 5 Shower/Bathe Self (QC): 5 Upper Body (FIM): 5 Upper Body Dressing (QC): 5 Lower Body Dressing (FIM): 5 Lower Body Dressing (QC): 4 On/Off Footwear (QC): 5 Toileting (FIM): 6 Toileting Hygiene (QC): 6 Toilet/Commode Transfer (FIM): 6 Toilet Transfer (QC): 6 Shower Transfer(FIM): 5 Other Treatment Pt completed bilateral UE exercises to increase strength needed for ADLs and transfers. Pt performed shoulder flexion, abduction, biceps curls, and triceps extension exercises x15 reps with mild resistance (yellow) theraband. Rest breaks between exercises. Occasional cues for proper exercise technique. Pt sitting in chair with needs met after session. OT Short Term Goals Short Term Goals 1=Demonstrate adherence to instructed precautions during ADL tasks. 2=Patient will verbalize/demonstrate understanding of assistive devices/ modifications for ADL. 3=Patient will improve strength/tolerance for activity to enable patient to perform ADL's. OT Digital Manager Goals [facility] Goals Time Frame: Sep 26, 2017 Eating (FIM): 6 Eating (QC): 6 Groomin Oral Hygiene (QC): 6 Bathing(FIM): 5 Shower/Bathe Self (QC): 5 Upper Body Dressing(FIM): 6 Upper Body Dressing (QC): 6 Lower Body Dressing(FIM): 6 Lower Body Dressing (QC): 6 On/Off Footwear (QC): 6 Toileting(FIM): 6 Toileting Hygiene (QC): 6 Toilet/Commode Transfer(FIM): 6 Toilet/Commode Transfer (QC): 6 Shower Transfer(FIM): 5 Additional Goals: 2-Verbalize Understanding, 3-ImproveStrength/Emmy 1=Demonstrate adherence to instructed precautions during ADL tasks. 2=Patient will verbalize/demonstrate understanding of assistive devices/ modifications for ADL. 3=Patient will improve strength/tolerance for activity to enable patient to perform ADL's. OT Education/Plan Problem List/Assessment Pt demonstrates decreased activity tolerance, strength,mobility, and ADL functioning. Pt to benefit from skilled OT intervention for ADL training, transfers, strengthening, and home safety education to maximize level of function and allow safe return home with family support. Discharge Recommendations Plan/Recommendations: Continue POC Treatment Plan/Plan of Care Patient would benefit from OT for education, treatment and training to promote independence in ADL's, mobility, safety and/or upper extremity function for ADL' s. Plan of Care: ADL Retraining, Functional Mobility, Group Exercise/Act as Ind, UE Funct Exercise/Act Treatment Duration: Sep 26, 2017 Frequency: At least 5 of 7 days/Wk (IRF) Estimated Hrs Per Day: 1.5 hours per day Agreement: Yes Rehab Potential: Good Time/GCodes Start Time: 09:00 Stop Time: 10:00 Total Time Billed (hr/min): 60 Billed Treatment Time 1 visit, ADLx3(45minutes), EX(15minutes) JEMMA JACKSON OT Sep 09, 2017 11:20
--- NOTE | 2017-09-09 12:12 | PM & R (SOAP) Progress Note ---
Subjective Time Seen by Provider: 08:00 Subjective/Events-last exam Patient was seen in her room this AM Contacted by DENNIS re patient wanting to d/c tomorrow Patient Modified Independent for transfers.Accuchecks noted Objective Exam Last Set of Vital Signs Vital Signs Date Time Temp Pulse Resp B/P (MAP) Pulse Ox O2 Delivery O2 Flow Rate FiO2 09/09/17 07:22 92 Room Air 09/09/17 05:59 68 21 09/09/17 04:22 97.5 18 159/75 (103) 09/08/17 02:04 2.00 Capillary Refill : I&O Intake and Output 09/09/17 00:00 Intake Total 1240 ml Balance 1240 ml Intake Oral 1240 ml # Voids 9 # Bowel Movements 3 Results Lab Laboratory Tests 09/06/17 16:23: Glucometer 215H 09/06/17 20:35: Glucometer 180H 09/07/17 06:19: Glucometer 53*L 09/07/17 06:30: Glucometer 58*L 09/07/17 06:40: Glucometer 80 09/07/17 11:34: Glucometer 156H 09/07/17 15:35: Glucometer 203H 09/07/17 21:31: Glucometer 188H 09/08/17 05:14: Glucometer 137H 09/08/17 11:30: Glucometer 153H 09/08/17 16:05: Glucometer 156H 09/08/17 21:17: Glucometer 251H 09/09/17 05:58: Glucometer 117H 09/09/17 11:07: Glucometer 138H Assessment/Plan Assessment SDH s/p fall UTI treated Pneumonia treted Chronic anemia s/p transfusion 09-05-17 Type 2 DM Hx of falls DVT Prophylaxis on SCDS Plan Continue PT/OT St has signed off Team Conference 09-10-17 Discharge set for tomorrow to home with her family LINDA MCKEON MD Sep 09, 2017 12:12
--- NOTE | 2017-09-09 12:19 | Individualized Plan of Care ---
"Individualized Plan of Care Rehab Nursing IPOC Order Admission Date Sep 05, 2017 at 10:45 Current Orders Orders Admission-Acute Rehab Unit (09/05/17 10:20) Pt Evaluate/Treat Request (09/05/17 10:20) Request Ot Evaluate & Treat (09/05/17 10:20) Request For Cognitive Services (09/05/17 10:20) Admission-Acute Rehab Unit (09/05/17 11:19) Vital Signs: Routine 08,16,00 (09/05/17 11:19) Company Controller-Inpt Rehab (09/05/17 11:19) Rehab Nursing Orders-Ipoc (09/05/17 11:19) Turn And Reposition Q2HR (09/05/17 11:19) Intake & Output 06,14,22 (09/05/17 11:19) Weekly Weight (Lbs) WEEK (09/05/17 11:19) Consult Physician (09/05/17 11:21) Type And Screen (09/05/17 07:18) Blood Transfusion|Repeat Hgb A (09/05/17 ) Accucheck Achs ACHS (09/05/17 11:41) Activity (09/05/17 11:41) Iv/Invasive Line Insertion .on IV start (09/05/17 11:41) Initiate Admission Nursing Pro .admission (09/05/17 11:41) Intake & Output 06,14,22 (09/05/17 11:41) Nursing Communication (Patient (09/05/17 11:41) Oxygen-Administer 07,19 (09/05/17 11:41) Pt Pulse Oximetry (09/05/17 11:41) Sequential Compression Device 08,20 (09/05/17 11:41) Vital Signs: Every 4 Hours (09/05/17 11:41) Weight Bearing Status (09/05/17 11:41) Acetaminophen Tablet (Tylenol Tablet) (09/05/17 11:45) Albuterol/Ipra Inhalation Soln (Duoneb I (09/05/17 11:45) Atorvastatin Tablet (Lipitor) (09/05/17 21:00) Benzonatate Capsule (Tessalon Perles) (09/05/17 13:00) Citalopram Tablet (Celexa Tablet) (09/05/17 21:00) Carboxymethylcell Ophth Soln (Refresh Pl (09/05/17 11:45) D5 1/2 Ns 1000 Ml Iv Solution (Dextrose (09/05/17 11:45) Furosemide Tablet (Lasix Tablet) (09/06/17 09:00) Levothyroxine Tablet (Synthroid Tablet) (09/06/17 06:30) Ns Iv 1000 Ml (Sodium Chloride 0.9%) (09/05/17 11:45) Ceftriaxone Injection (Rocephin Injectio (09/06/17 09:00) Sodium Chloride Flush (Catheter Flush Sy (09/05/17 11:45) Amlodipine Tablet (Norvasc Tablet) (09/06/17 09:00) Guaifenesin/Dm Syrup (Robitussin Dm Syru (09/05/17 11:45) Hydralazine Injection (Apresoline Inject (09/05/17 11:45) Insulin Aspart (Novolog) (Novolog (Charg (09/05/17 21:00) Insulin Determir (Per Unit) (Levemir (Pe (09/05/17 21:00) Metoprolol Tartrate (Ir) Tab (Lopressor (09/05/17 21:00) Trazodone Tablet (Desyrel Tablet) (09/05/17 21:00) Red Cells Leukocytes Reduced (09/05/17 11:41) Consult Physician (09/05/17 11:41) Consult Pulmonology (09/05/17 11:41) Irf Req Eval/Acute Rehab (09/05/17 11:41) Mdi Rt-Rfs (09/05/17 11:41) Request Ot Evaluate & Treat (09/05/17 11:41) Request Speech/Language Servic (09/05/17 11:41) Svn Sm Volume Nebulizer Rt-Rfs (09/05/17 11:41) Social Service (09/05/17 11:41) Speech Therapy Orders (09/05/17 11:41) Svn Sm Volume Nebulizer Rt-Rfs (09/05/17 11:41) Blood Transfusion|Repeat Hgb A (09/05/17 ) Cbc With Automated Diff (09/06/17 06:00) Basic Metabolic Panel (09/06/17 06:00) Ambulate TID (09/05/17 11:41) Blood Transfusion|Repeat Hgb A (09/05/17 11:41) Patient Visit (09/05/17 ) Pt Eval Moderate Complexity (09/05/17 ) Functional Activities, Ea 15 (09/05/17 ) Request Ot Evaluate & Treat (09/05/17 12:13) Cho 60g/M 3snack (16-2000 Víctor) (09/05/17 Lunch) Ambulate TID (09/05/17 14:00) Dvt/Vte Risk - Notifiy Physici 08 (09/05/17 14:00) Albuterol/Ipra Inhalation Soln (Duoneb I (09/05/17 18:00) Svn Sm Volume Nebulizer Rt-Rfs (09/05/17 14:14) Patient Visit (09/05/17 ) Speech Sound Lang Comp (09/05/17 ) Hemoglobin And Hematocrit (09/05/17 15:01) Albuterol/Ipra Inhalation Soln (Duoneb I (09/06/17 15:00) Rt Request For Service (09/06/17 11:20) Patient Visit (09/06/17 ) Functional Activities, Ea 15 (09/06/17 ) Insulin Determir (Per Unit) (Levemir (Pe (09/07/17 21:00) Polyethylene Glycol Powder Pkt (Miralax (09/07/17 21:00) Docusate Sodium Capsule (Colace Capsule) (09/07/17 11:45) Senna S Tablet (Senokot S Tablet) (09/07/17 11:45) Patient Visit (09/08/17 ) Gait Training, Ea 15 Min (09/08/17 ) Functional Activities, Ea 15 (09/08/17 ) Patient Visit (09/08/17 ) Albuterol/Ipra Inhalation Soln (Duoneb I (09/09/17 08:00) Mat Protocol-Rt Rfs (09/09/17 05:59) Exercise Therap, Ea 15 Min (09/07/17 ) Rehab Nursing Orders: Diseage Management, Edu in Press Rel Techn, Hydration Management, Nutrition Management, Pain Management Other Nursing Orders: Monitor for urinary retention and constipation PT IPOC Problem List: Activity Tolerance, Functional Strength, Safety, Balance, Gait, Transfer, Bed Mobility, ROM Treatment Plan: Continue Plan of Care Bed Mobility, Education, Functional Activity Emmy, Functional Strength, Group Therapy, Gait, Safety, Therapeutic Exercise, Transfers Treatment Duration: Sep 19, 2017 Frequency: At least 5 of 7 days/Wk (IRF) Estimated Hrs Per Day: 1.5 hours per day OT IPOC Problems: Decreased Activ Tolerance, Decreased UE Strength, Dependent Transfers , Impaired Self-Care Skills OT Treatment, Training and Edu: Yes OT Problems Pt demonstrates decreased activity tolerance, strength,mobility, and ADL functioning. Pt to benefit from skilled OT intervention for ADL training, transfers, strengthening, and home safety education to maximize level of function and allow safe return home with family support. Plan of Care: ADL Retraining, Functional Mobility, Group Exercise/Act as Ind, UE Funct Exercise/Act Treatment Duration: Sep 26, 2017 Frequency: At least 5 of 7 days/Wk (IRF) Estimated Hrs Per Day: 1.[address] IPOC Speech Therapy Treatment Plan: Discontinue ST Treatment Duration: Sep 09, 2017 Frequency: Modified Program (IRF) Estimated Hrs Per Day: Other Company Controller/Case Mgmt Company Controller/Case Managemen: Discharge Planning, Patient/Family Counseling Physician IPOC Medical Issues being managed closely and that require the 24 hour availability of a physician:Pneumonia UTI HTN Chronic anemia requiring transfusion Type 2 DM Medical Issues: Bowel/Bladder Function, DVT Prophylaxis, Falls Precautions, Fluid/Electrolyte/Nutrition Balance, Infection Protection, Pain Management, Other (List) (as per above) Brief Synthesis of Preadmission Screen, Post-Admission Evaluation, and Therapy Evaluations: 82 yo female who had been Independent and living with her family who fell and sustained a SDH managed medically Found to have a UTI and Pneumonia which have been treated by Hospitalist service and Pulmonary.Comorbidities as per above IGC CODE 02.22 Etiologic DX Traumatic SDH without LOC Medical Prognosis: Good Anticipated Length of Stay: 2-14-18 Rehab Goals Modified Independent for adls and mobility skills Anticipated discharge destinat: Home with family and [facility] LINDA MCKEON MD Sep 09, 2017 12:19"
--- NOTE | 2017-09-09 12:53 | Occupational Ther Daily Note ---
OT Current Status-Daily Note Subjective Pt sitting in chair, agrees to treatment. Mental Status/Objective Functional [place] Measure 0=Not Assessed/NA 4=Minimal Assistance 1=Total Assistance 5=Supervision or Setup 2=Maximal Assistance 6=Modified [place] 3=Moderate Assistance 7=Complete [place] ADL-Treatment Pt transferred to toilet and toileted x2 during session with modified independence. Pt stood at sink to wash hands with modified independence. Functional [place] Measure 0=Not Assessed/NA 4=Minimal Assistance 1=Total Assistance 5=Supervision or Setup 2=Maximal Assistance 6=Modified [place] 3=Moderate Assistance 7=Complete IndependenceIRFPAI Quality Coding Scale 6 Independent with activity with or without an assistive device 5 Patient requires set up or clean up by helper. Patient completes activity by themselves 4 Supervision or touching assist (CGA). [place] provide cues , steadying assist 3 The helper provides less than half the effort to complete the activity 2 The helper provides more than half the effort to complete the activity 1 Dependent. The helper does all the effort to complete an activity 7 Patient refused to complete or attempt activity 9 The patient did not perform the activity before the current illness or injury 88 Not attempted due to Medical conditions or safety concerns Toileting (FIM): 6 Toileting Hygiene (QC): 6 Toilet/Commode Transfer (FIM): 6 Toilet Transfer (QC): 6 Other Treatment Gait to therapy gym with FWW, no LOB noted. Arm bike x10 minutes to increase overall strength and activity tolerance needed for functional tasks. Pt completed activity with minimal resistance and slow pace. No rest breaks needed. Pt completed peg activity with 1# weights on bilateral UE to increase strength needed for ADLs and transfers. Pt completed activity without difficulty. Pt returned to room, transferred to chair with modified independence. Sitting in chair with needs met after session. OT Short Term Goals Short Term Goals 1=Demonstrate adherence to instructed precautions during ADL tasks. 2=Patient will verbalize/demonstrate understanding of assistive devices/ modifications for ADL. 3=Patient will improve strength/tolerance for activity to enable patient to perform ADL's. OT Usp Goals State Epidemiologist Goals Time Frame: Sep 26, 2017 Eating (FIM): 6 Eating (QC): 6 Groomin Oral Hygiene (QC): 6 Bathing(FIM): 5 Shower/Bathe Self (QC): 5 Upper Body Dressing(FIM): 6 Upper Body Dressing (QC): 6 Lower Body Dressing(FIM): 6 Lower Body Dressing (QC): 6 On/Off Footwear (QC): 6 Toileting(FIM): 6 Toileting Hygiene (QC): 6 Toilet/Commode Transfer(FIM): 6 Toilet/Commode Transfer (QC): 6 Shower Transfer(FIM): 5 Additional Goals: 2-Verbalize Understanding, 3-ImproveStrength/Emmy 1=Demonstrate adherence to instructed precautions during ADL tasks. 2=Patient will verbalize/demonstrate understanding of assistive devices/ modifications for ADL. 3=Patient will improve strength/tolerance for activity to enable patient to perform ADL's. OT Education/Plan Problem List/Assessment Pt demonstrates decreased activity tolerance, strength,mobility, and ADL functioning. Pt to benefit from skilled OT intervention for ADL training, transfers, strengthening, and home safety education to maximize level of function and allow safe return home with family support. Discharge Recommendations Plan/Recommendations: Continue POC Treatment Plan/Plan of Care Patient would benefit from OT for education, treatment and training to promote independence in ADL's, mobility, safety and/or upper extremity function for ADL' s. Plan of Care: ADL Retraining, Functional Mobility, Group Exercise/Act as Ind, UE Funct Exercise/Act Treatment Duration: Sep 26, 2017 Frequency: At least 5 of 7 days/Wk (IRF) Estimated Hrs Per Day: 1.5 hours per day Agreement: Yes Rehab Potential: Good Time/GCodes Start Time: 11:30 Stop Time: 12:00 Total Time Billed (hr/min): 30 Billed Treatment Time 1 visit, EXx2(30minutes) JEMMA JACKSON OT Sep 09, 2017 12:53
--- NOTE | 2017-09-09 14:11 | Physical Therapy Daily Note ---
PT Daily Note-Current Subjective Agrees to Rx. No c/o pain. Ready to go home tomorrow Pain Numeric Pain Scale: 0-No Pain Mental Status Patient Orientation: Normal For Age Transfers Functional [place] Measure 0=Not Assessed/NA 4=Minimal Assistance 1=Total Assistance 5=Supervision or Setup 2=Maximal Assistance 6=Modified [place] 3=Moderate Assistance 7=Complete IndependenceIRFPAI Quality Coding Scale 6 Independent with activity with or without an assistive device 5 Patient requires set up or clean up by helper. Patient completes activity by themselves 4 Supervision or touching assist (CGA). [place] provide cues , steadying assist 3 The helper provides less than half the effort to complete the activity 2 The helper provides more than half the effort to complete the activity 1 Dependent. The helper does all the effort to complete an activity 7 Patient refused to complete or attempt activity 9 The patient did not perform the activity before the current illness or injury 88 Not attempted due to Medical conditions or safety concerns All TRFs mod I Weight Bearing Right Lower Extremity: Right Weight Bearing/Tolerated Left Lower Extremity: Left Weight Bearing/Tolerated Gait Training Gait Assistive Device: FWW 150 ft x 2 SBA to Mod I Stair Training up down 4 steps SBA Exercises Supine Ex: Ankle pumps, Quad Set, Glut sets, Heel Slides, Short Arc Quads, Straight leg raise, Hip abd/add Supine Reps: 15 NuStep Minutes: 5 NuStep Workload: 2 Assessment Current Status: Good Progress good progress all phases of Rx PT Artificial Candy Maker Goals Artificial Candy Maker Goals PT Artificial Candy Maker Goals Time Frame: Sep 19, 2017 Transfers (B,C,W/C) (FIM): 6 Sit to Lying (QC): 6 Lying-Sitting on Side/Bed(QC): 6 Sit to Stand (QC): 6 Rollin Roll Left to Right (QC): 6 Chair/Xzf-li-Wwapy Xfer(QC): 6 Car Transfer (QC): 6 Does the Patient Walk: Yes Gait (FIM): 6 Gait distance (FIM): 3=150 ft Distance: 200' Walk 10 feet (QC): 6 Walk 10ft-Uneven Surface(QC): 6 Walk 50ft with 2 Turns (QC): 6 Walk 150 ft (QC): 6 Gait Level of Assist: 6 Gait Assistive Device: FWW Stairs (FIM): 5 # of Steps: 8 1 Step (curb) (QC): 5 4 Steps (QC): 5 12 Steps (QC): 5 Stairs Level Of Assist: 5 Picking up an Object (QC): 6 PT Plan Treatment/Plan Treatment Plan: Continue Plan of Care Treatment Plan: Bed Mobility, Education, Functional Activity Emmy, Functional Strength, Group Therapy, Gait, Safety, Therapeutic Exercise, Transfers Treatment Duration: Sep 19, 2017 Frequency: At least 5 of 7 days/Wk (IRF) Estimated Hrs Per Day: 1.5 hours per day Patient and/or Family Agrees t: Yes Safety Risks/Education Patient Education: Gait Training, Transfer Techniques Teaching Recipient: Patient Teaching Methods: Demonstration, Discussion Response to Teaching: Verbalize Understanding, Return Demonstration, Reinforcement Needed Time/GCodes Time In: 1330 Time Out: 1400 Total Billed Treatment Time: 30 Total Billed Treatment 1,GT15m,EX15m G Codes Necessary: JAQUAN Rivera CERTIFIED PEER SPECIALIST Sep 09, 2017 14:11
--- NOTE | 2017-09-09 15:46 | D/C HH Face to Face Order ---
D/C Face to Face Orders Instructions for Patient Patient Instructions/FollowUp: Dr. Bui on 09/17 at 941a Physician to follow Patient: Dr. Bui Discharge Diet for Home: other diet (60 CHO) Patient Data-Allergies,Ht & Wt Patient Allergies: Coded Allergies: Penicillins (Verified Allergy, Unknown, Pt has received Ceftriaxone in the past, 09/02/17) influenza virus vaccine, specific (Verified Adverse Reaction, Unknown, Not allergic just won't take Flu vaccine, 09/02/17) Height (Feet): 5 Height (Inches): 6.00 Weight (Pounds): 165 Weight (Ounces): 8.0 Home Health Need/Face to Face Date of Face to Face: Sep 10, 2017 Clinical Findings: Generalized weakness and fatigue I have seen Pt [id number]-pbub: Yes Discharged To: Home Diagnosis/Conditions: Subdural Hematoma Problems/Diagnosis/Condition: Patient is Homebound due to: Muscle weakness Homebound Status Due to the above stated illness, injury or surgical procedure (medical condition or diagnosis) and associated clinical findings, the patient is homebound because of his/her inability to leave home except with aid of a supportive device and/or person AND leaving the home requires a considerable and taxing effort or is medically contraindicated. Pt req the following assistanc: Walker Home Health Nursing Orders Home Health Services Order: Community Health Advisor-Evaluate & Treat, Physical Therapy-Evaluate & Treat Home Health Infusion Therapy Line Type: Peripheral IV Site Location: Hand Therapy Orders Therapy Orders: Physical Therapy, PT to assess for OT Therapy Specific Orders: Eval assistive deivces, Teach enviro modifications/ safety, Gait training, Increase strength/endurance [facility] certify that this patient is under my care and that I, a nurse practitioner or a physician; a assistant professor of theater working with me, had a face to face encounter that - meets the physician face to face encounter requirements with this patient as dated. I personally scribed for LINDA MCKEON MD ([facility]) on 09/09/17 at 15:46. Electronically submitted by Xochilt De La Torre ([id number]). LINDA MCKEON MD Sep 09, 2017 15:46
[2017-09-09 18:32] VITALS: BP 148/69
[2017-09-09] MEDS ORDERED: INSU100V5 SQ (20:04)
[2017-09-09] MEDS ORDERED: BENZ-36 PO (20:04)
[2017-09-09] MEDS ORDERED: METO-333 PO (20:04)
[2017-09-09] MEDS ORDERED: ACET-77 PO (20:04)
[2017-09-09] MEDS ORDERED: AMLO5TAB2 PO (20:04)
[2017-09-09] MEDS: ATORVASTATIN 40 MG (LIPITOR) TABLET PO SCH (20:45)
[2017-09-09] MEDS: traZODone 100 MG (DESYREL) TAB PO SCH (20:45)
[2017-09-09] MEDS: POLYETHYLENE GLYCOL 17 GM (MIRALAX) PACK PO SCH (20:46)
[2017-09-09] MEDS: inSUlin DETERMIR 1 UNIT/0.01 ML (LEVEMIR) CHARGE PER UNIT SQ SCH (20:46)
[2017-09-10] MEDS: LEVOTHYROXINE 125 MCG (LEVOTHROID) TABLET PO SCH (05:30)
[2017-09-10 06:00] VITALS: BP 153/74
[2017-09-10] MEDS: RT-ALBUTEROL/IPRATROPIUM 3 ML (DUONEB) VIAL INH SCH (07:14)
[2017-09-10] MEDS: BENZONATATE 100 MG (TESSALON) CAPSULE PO SCH (08:39)
[2017-09-10] MEDS: meTOprolol TARTRATE 25 MG (LOPRESSOR) TABLET PO SCH (08:39)
[2017-09-10] MEDS: FUROSEMIDE 40 MG (LASIX) TAB PO SCH (08:39)
[2017-09-10] MEDS: amLODIPine 5 MG (NORVASC) TAB PO SCH (08:39)
--- NOTE | 2017-09-10 09:05 | PM & R (SOAP) Progress Note ---
Subjective Time Seen by Provider: 08:10 Subjective/Events-last exam Patient was seen in her room this AM.Patient Modified Independent for transfers Patient all set for discharge today Has progressed well Objective Exam Last Set of Vital Signs Vital Signs Date Time Temp Pulse Resp B/P (MAP) Pulse Ox O2 Delivery O2 Flow Rate FiO2 09/10/17 07:14 94 Room Air 09/10/17 06:00 97.6 64 16 153/74 (100) 09/09/17 05:59 21 09/08/17 02:04 2.00 Capillary Refill : I&O Intake and Output 09/10/17 00:00 Intake Total 1100 ml Balance 1100 ml Intake Oral 1100 ml # Voids 8 # Bowel Movements 2 General: Alert, Oriented X3, Cooperative, No Acute Distress HEENT: Atraumatic, PERRLA, EOMI, Mucous Memb Moist/[place] Neck: Supple, No JVD Lungs: Clear to Auscultation Heart: Regular Rate Abdomen: Normal Bowel Sounds, Soft, No Tenderness Extremities: Other (trace edema ankles) Neuro: Other (Good strength) Results Lab Laboratory Tests 09/07/17 11:34: Glucometer 156H 09/07/17 15:35: Glucometer 203H 09/07/17 21:31: Glucometer 188H 09/08/17 05:14: Glucometer 137H 09/08/17 11:30: Glucometer 153H 09/08/17 16:05: Glucometer 156H 09/08/17 21:17: Glucometer 251H 09/09/17 05:58: Glucometer 117H 09/09/17 11:07: Glucometer 138H 09/09/17 16:02: Glucometer 128H 09/09/17 20:21: Glucometer 188H 09/10/17 05:34: Glucometer 102 Assessment/Plan Assessment SDH s/p fall UTI treated Pneumonia treted Chronic anemia s/p transfusion 09-05-17 Type 2 DM Hx of falls DVT Prophylaxis on SCDS Plan Discharge today to home with family and HHC F/U with PCP See orders LINDA MCKEON MD Sep 10, 2017 09:05
--- NOTE | 2017-09-10 10:42 | Physical Therapy Daily Note ---
PT Daily Note-Current Subjective Pt. ready to go home. Looking forward to a [place] party at [facility]. No pain, feels strong Pain Numeric Pain Scale: 0-No Pain Mental Status Patient Orientation: Normal For Age Transfers Functional [place] Measure 0=Not Assessed/NA 4=Minimal Assistance 1=Total Assistance 5=Supervision or Setup 2=Maximal Assistance 6=Modified [place] 3=Moderate Assistance 7=Complete IndependenceIRFPAI Quality Coding Scale 6 Independent with activity with or without an assistive device 5 Patient requires set up or clean up by helper. Patient completes activity by themselves 4 Supervision or touching assist (CGA). [place] provide cues , steadying assist 3 The helper provides less than half the effort to complete the activity 2 The helper provides more than half the effort to complete the activity 1 Dependent. The helper does all the effort to complete an activity 7 Patient refused to complete or attempt activity 9 The patient did not perform the activity before the current illness or injury 88 Not attempted due to Medical conditions or safety concerns Transfers (B, C, W/C) (FIM): 6 Scootin Rollin Roll Left to Right (QC): 6 Supine to/from Sit: 6 Sit to/from Stand: 6 Sit to Lying (QC): 6 Sit to Stand (QC): 6 Chair/Cfp-iv-Lgyie Xfer(QC): 6 Bed to/from Chair: 6 Car Transfer (QC): 6 Weight Bearing Right Lower Extremity: Right Weight Bearing/Tolerated Left Lower Extremity: Left Weight Bearing/Tolerated Gait Training Does the Patient Walk?: Yes Gait (FIM): 6 Distance (FIM): 3=150 ft (175x2) Walk 10 feet (QC): 6 Walk 50 ft with 2 Turns(QC): 6 Walk 150 ft (QC): 6 Walking 10ft/uneven surface-QC: 6 Gait Level of Assist: 6 Gait Persons Needed: 0 Gait Assistive Device: FWW Stair Training Stair Training: Handrails/: 2 handrails Stairs (FIM): 6 #of Steps: 12 1 Step (curb) (QC): 6 4 Steps (QC): 6 12 Steps (QC): 6 Stairs: Pattern: Reciprocal Level of Assist: 6 Balance Picking up an Object (QC): 5 Exercises Supine Ex: Bridging, Ankle pumps, Rolling, Scooting, Straight leg raise, Hip abd/add Supine Reps: 10 Treatments toileted indep Assessment Current Status: Good Progress meets goals PT Penitentiary Goals Penitentiary Goals PT Penitentiary Goals Time Frame: Sep 19, 2017 Transfers (B,C,W/C) (FIM): 6 Sit to Lying (QC): 6 Lying-Sitting on Side/Bed(QC): 6 Sit to Stand (QC): 6 Rollin Roll Left to Right (QC): 6 Chair/Dyt-kn-Zusxd Xfer(QC): 6 Car Transfer (QC): 6 Does the Patient Walk: Yes Gait (FIM): 6 Gait distance (FIM): 3=150 ft Distance: 200' Walk 10 feet (QC): 6 Walk 10ft-Uneven Surface(QC): 6 Walk 50ft with 2 Turns (QC): 6 Walk 150 ft (QC): 6 Gait Level of Assist: 6 Gait Assistive Device: FWW Stairs (FIM): 5 # of Steps: 8 1 Step (curb) (QC): 5 4 Steps (QC): 5 12 Steps (QC): 5 Stairs Level Of Assist: 5 Picking up an Object (QC): 6 PT Plan Treatment/Plan Treatment Plan: Discontinue PT, goals met Treatment Plan: Bed Mobility, Education, Functional Activity Emmy, Functional Strength, Group Therapy, Gait, Safety, Therapeutic Exercise, Transfers Treatment Duration: Sep 19, 2017 Frequency: At least 5 of 7 days/Wk (IRF) Estimated Hrs Per Day: 1.5 hours per day Patient and/or Family Agrees t: Yes Safety Risks/Education Patient Education: Gait Training, Transfer Techniques, Steps, Correct Positioning, Disease Process, Safety Issues Teaching Recipient: Patient Teaching Methods: Demonstration, Discussion Response to Teaching: Verbalize Understanding, Return Demonstration Time/GCodes Time In: 1010 Time Out: 1035 Total Billed Treatment Time: 25 Total Billed Treatment 1,FA25m G Codes Necessary: No JAQUAN THAKUR METAL DRILLING MACHINE OPERATOR Sep 10, 2017 10:42
[2017-09-10 11:20] VITALS: BP 153/74
--- NOTE | 2017-09-10 11:32 | Occupational Ther Daily Note ---
OT Current Status-Daily Note Subjective Pt sitting in chair, agrees to treatment. Eager to go home today. Pt has no c/o pain. Mental Status/Objective Functional [place] Measure 0=Not Assessed/NA 4=Minimal Assistance 1=Total Assistance 5=Supervision or Setup 2=Maximal Assistance 6=Modified [place] 3=Moderate Assistance 7=Complete [place] ADL-Treatment Pt sit to stand with modified independence. Pt retrieved clothing from closet with FWW for balance. Pt completed toilet transfer with modified independence. Pt able to complete toileting hygiene and clothing management with modified independence. Transfer to walk in shower with modified independence using grab bar for safety. Bathing completed using hand held shower. Pt able to wash/dry all areas. Don pullover shirt with modified independence. Don Depends and pants with modified independence. Stood with good balance during pant hike. Don socks with modified independence. Pt brushed hair without assistance. States she completed oral care and put dentures in without assistance this morning. Plan is to d/c home with daughter and son-in-law today. Pt has no questions or concerns regarding ADLs or home safety. Pt sitting in chair with needs met after session. Functional [place] Measure 0=Not Assessed/NA 4=Minimal Assistance 1=Total Assistance 5=Supervision or Setup 2=Maximal Assistance 6=Modified [place] 3=Moderate Assistance 7=Complete IndependenceIRFPAI Quality Coding Scale 6 Independent with activity with or without an assistive device 5 Patient requires set up or clean up by helper. Patient completes activity by themselves 4 Supervision or touching assist (CGA). [place] provide cues , steadying assist 3 The helper provides less than half the effort to complete the activity 2 The helper provides more than half the effort to complete the activity 1 Dependent. The helper does all the effort to complete an activity 7 Patient refused to complete or attempt activity 9 The patient did not perform the activity before the current illness or injury 88 Not attempted due to Medical conditions or safety concerns Eating (FIM): 6 (Pt reports feeding self, managing containers, and cutting food without assistance) Eating (QC): 6 Grooming (FIM): 6 Oral Hygiene (QC): 6 Bathing (FIM): 6 Shower/Bathe Self (QC): 6 Upper Body (FIM): 6 Upper Body Dressing (QC): 6 Lower Body Dressing (FIM): 6 Lower Body Dressing (QC): 6 On/Off Footwear (QC): 6 Toileting (FIM): 6 Toileting Hygiene (QC): 6 Toilet/Commode Transfer (FIM): 6 Toilet Transfer (QC): 6 Shower Transfer(FIM): 6 OT Short Term Goals Short Term Goals 1=Demonstrate adherence to instructed precautions during ADL tasks. 2=Patient will verbalize/demonstrate understanding of assistive devices/ modifications for ADL. 3=Patient will improve strength/tolerance for activity to enable patient to perform ADL's. OT Large Engine Assembler Goals Large Engine Assembler Goals Time Frame: Sep 26, 2017 Eating (FIM): 6 (met 09/10/17) Eating (QC): 6 (6-MET) Groomin (met 09/10/17) Oral Hygiene (QC): 6 (6-MET) Bathing(FIM): 5 (exceeded 09/10/17) Shower/Bathe Self (QC): 5 (6-exceeded) Upper Body Dressing(FIM): 6 (met 09/10/17) Upper Body Dressing (QC): 6 (6-MET) Lower Body Dressing(FIM): 6 (met 09/10/17) Lower Body Dressing (QC): 6 (6-MET) On/Off Footwear (QC): 6 (6-MET) Toileting(FIM): 6 (met 09/10/17) Toileting Hygiene (QC): 6 (6-MET) Toilet/Commode Transfer(FIM): 6 (met 09/10/17) Toilet/Commode Transfer (QC): 6 (6-MET) Shower Transfer(FIM): 5 (exceeded) Additional Goals: 2-Verbalize Understanding, 3-ImproveStrength/Emmy 1=Demonstrate adherence to instructed precautions during ADL tasks. 2=Patient will verbalize/demonstrate understanding of assistive devices/ modifications for ADL. 3=Patient will improve strength/tolerance for activity to enable patient to perform ADL's. OT Education/Plan Problem List/Assessment Pt demonstrates decreased activity tolerance, strength,mobility, and ADL functioning. Pt to benefit from skilled OT intervention for ADL training, transfers, strengthening, and home safety education to maximize level of function and allow safe return home with family support. Discharge Recommendations Plan/Recommendations: Continue POC Treatment Plan/Plan of Care Patient would benefit from OT for education, treatment and training to promote independence in ADL's, mobility, safety and/or upper extremity function for ADL' s. Plan of Care: ADL Retraining, Functional Mobility, Group Exercise/Act as Ind, UE Funct Exercise/Act Treatment Duration: Sep 26, 2017 Frequency: At least 5 of 7 days/Wk (IRF) Estimated Hrs Per Day: 1.5 hours per day Agreement: Yes Rehab Potential: Good Time/GCodes Start Time: 08:00 Stop Time: 08:40 Total Time Billed (hr/min): 40 Billed Treatment Time 1 visit, ADLx3(40minutes) JEMMA JACKSON OT Sep 10, 2017 11:32
--- NOTE | 2017-09-10 11:51 | Therapy Team Discharge Summary ---
Therapy Discharge Summary Discharge Recommendations Date of Discharge Therapy D/C Recommendations: Home w/ Family Support Occupational Therapy Pt admitted to ARU following acute hospitalization for subdural hematoma. On admission pt required SBA/set up for eating, grooming, and UE dressing; min assist with bathing, and CGA for LE dressing, toileting, and toilet transfer. Skilled OT intervention focused on ADL training, transfers, strengthening, and safety education. Pt made good progress with therapy and by discharge is completing ADLs and transfers with modified independence. Pt met all OT LTG. Pt discharging home today with family support. D/C ARU OT at this time. PT Prison Goals Prison Goals PT Rum Processing Operator Goals Time Frame: Sep 19, 2017 Transfers (B,C,W/C) (FIM): 6 Roll Left to Right (QC): 6 Sit to Lying (QC): 6 Lying-Sitting on Side/Bed(QC): 6 Sit to Stand (QC): 6 Chair/Kfh-oi-Hutsn Xfer(QC): 6 Car Transfer (QC): 6 Does the Patient Walk: Yes Gait (FIM): 6 Gait distance (FIM): 3=150 ft Distance: 200' Walk 10 feet (QC): 6 Walk 10ft-Uneven Surface(QC): 6 Walk 50ft with 2 Turns (QC): 6 Walk 150 ft (QC): 6 Gait Level of Assist: 6 Gait Assistive Device: FWW Stairs (FIM): 5 # of Steps: 8 1 Step (curb) (QC): 5 4 Steps (QC): 5 12 Steps (QC): 5 Stairs Level Of Assist: 5 Picking up an Object (QC): 6 OT Rum Processing Operator Goals Rum Processing Operator Goals Time Frame: Sep 26, 2017 Eating (FIM): 6 (met 09/10/17) Eating (QC): 6 (6-MET) Oral Hygiene (QC): 6 (6-MET) Grooming(FIM): 6 (met 09/10/17) Bathing(FIM): 5 (exceeded 09/10/17) Shower/Bathe Self (QC): 5 (6-exceeded) Upper Body Dressing(FIM): 6 (met 09/10/17) Upper Body Dressing (QC): 6 (6-MET) Lower Body Dressing(FIM): 6 (met 09/10/17) Lower Body Dressing (QC): 6 (6-MET) On/Off Footwear (QC): 6 (6-MET) Toileting(FIM): 6 (met 09/10/17) Toileting Hygiene (QC): 6 (6-MET) Toilet/Commode Transfer(FIM): 6 (met 09/10/17) Toilet/Commode Transfer (QC): 6 (6-MET) Shower Transfer(FIM): 5 (exceeded) Additional Goals: 2-Verbalize Understanding, 3-ImproveStrength/Emmy 1=Demonstrate adherence to instructed precautions during ADL tasks. 2=Patient will verbalize/demonstrate understanding of assistive devices/ modifications for ADL. 3=Patient will improve strength/tolerance for activity to enable patient to perform ADL's. JEMMA JACKSON OT Sep 10, 2017 11:51
== END 2017-09-10 11:20 | disposition home health service (06) | DRG 949 ==
PROVIDERS: ADMIT Physical Medicine & Rehabilitation; ATTEND Physical Medicine & Rehabilitation
DX: S06.5X9D Traumatic subdural hemorrhage with loss of consciousness of unspecified duration, subsequent encounter (principal); Z91.81 History of falling; D64.9 Anemia, unspecified; N39.0 Urinary tract infection, site not specified; J18.9 Pneumonia, unspecified organism; I12.9 Hypertensive chronic kidney disease with stage 1 through stage 4 chronic kidney disease, or unspecified chronic kidney disease; N18.4 Chronic kidney disease, stage 4 (severe); E11.9 Type 2 diabetes mellitus without complications; J44.9 Chronic obstructive pulmonary disease, unspecified; E03.9 Hypothyroidism, unspecified; B96.20 Unspecified Escherichia coli [E. coli] as the cause of diseases classified elsewhere; Z79.4 Long term (current) use of insulin; W19.XXXD Unspecified fall, subsequent encounter
CPT/HCPCS: 36415; 80048; 82962; 85014; 85018; 85025; 86850; 86900; 86901; 86920; 94640; 94760

== ENCOUNTER → 2017-09-30 | Outpatient (CLI) | payer MEDICARE, MEDICAID ==
[~2017-09-30] MED LIST changes: +ACET-77 PO; +BENZ-36 PO; +METO-333 PO
--- NOTE | 2017-09-30 15:04 | Diagnostic Imaging Report ---
PROCEDURE: US left lower extremity venous. TECHNIQUE: Multiple real-time grayscale images were obtained over the left lower extremity in various projections. Additional duplex Doppler and color Doppler images were also obtained. INDICATION: Left leg pain and edema. EXAMINATION: Grayscale and color Doppler evaluation of the deep veins of the left lower extremity were performed with waveform analysis. FINDINGS: Continuous venous flow is present. No intraluminal filling defect is identified. There is normal compressibility and response to augmentation. No abnormal perivascular fluid collection is identified. IMPRESSION: No ultrasound evidence of left lower extremity deep venous thrombosis. Dictated by: Dictated on workstation # [id number]
== END ==
LOC: RAD 14:19
PROVIDERS: ATTEND Nurse Practitioner
DX: M79.605 Pain in left leg (principal); R60.0 Localized edema
CPT/HCPCS: 36415; 85379

== ENCOUNTER → 2017-10-07 | Outpatient (CLI) | payer MEDICARE, MEDICAID ==
--- NOTE | 2017-10-07 14:16 | Diagnostic Imaging Report ---
PROCEDURE: US left lower extremity venous. TECHNIQUE: Multiple real-time grayscale images were obtained over the left lower extremity in various projections. Additional duplex Doppler and color Doppler images were also obtained. INDICATION: Leg pain and swelling The previous left lower extremity venous Doppler exam performed on 09/30/2017 failed to show any sign of a deep venous thrombosis. On this study there is still generally good blood flow and compressibility at all levels. There is no evidence for deep venous thrombosis. IMPRESSION: There is still no evidence for a deep venous thrombosis of the left lower extremity. Dictated by: Dictated on workstation # [id number]
== END ==
LOC: RAD 11:08
PROVIDERS: ATTEND Nurse Practitioner
DX: M79.89 Other specified soft tissue disorders (principal)

== ENCOUNTER 2017-10-22 12:50 | Inpatient (IN) | payer MEDICARE, MEDICAID ==
[~2017-10-22] VITALS: Ht 167.6 cm; Wt 86.4 kg
[2017-10-22 12:50] VITALS: BP 172/75
[~2017-10-22 12:50] MED LIST changes: -CITA20TA7 PO; +CITA20TA9 PO
[2017-10-22] MEDS ORDERED: CALCIUM CARBONATE 500 MG (TUMS) TAB.CHEW PO PRN (13:15)
[2017-10-22] MEDS ORDERED: ONDANSETRON 4 MG/2 ML (SDV) Z0FRAN IVP PRN (13:15)
[2017-10-22] MEDS ORDERED: ACETAMINOPHEN 500 MG TAB (TYLENOL) PO PRN ×2 (13:15→15:15)
[2017-10-22] MEDS ORDERED: LACTULOSE SYRUP 10GM/15ML (ENULOSE) 30ML UDC PO PRN (13:15)
[2017-10-22 13:29] LABS: BASOPHILS % (AUTO) 0 % (0-10); EOSINOPHILS # (AUTO) 0.1 10^3/uL (0.0-0.3); EOSINOPHILS % (AUTO) 2 % (0-10); HEMATOCRIT 32 % (35-52); HEMOGLOBIN 10.2 G/DL (11.5-16.0); LYMPHOCYTES # (AUTO) 1.7 X 10^3 (1.0-4.0); LYMPHOCYTES % (AUTO) 25 % (12-44); MEAN CORPUSCULAR HEMOGLOBIN 27 PG (25-34); MEAN CORPUSCULAR HGB CONC 32 G/DL (32-36); MEAN CORPUSCULAR VOLUME 84 FL (80-99); MONOCYTES # (AUTO) 0.3 X 10^3 (0.0-1.0); MONOCYTES % (AUTO) 4 % (0-12); NEUTROPHILS # (AUTO) 4.9 X 10^3 (1.8-7.8); NEUTROPHILS % (AUTO) 69 % (42-75); PLATELET COUNT 102 10^3/uL (130-400); RED BLOOD COUNT 3.81 10^6/uL (4.35-5.85); RED CELL DISTRIBUTION WIDTH 17.2 % (10.0-14.5)
[2017-10-22 13:51] LABS: ALANINE AMINOTRANSFERASE 18 U/L (0-55); ALBUMIN 4.3 GM/DL (3.2-4.5); ALKALINE PHOSPHATASE 184 U/L (40-136); BUN/CREATININE RATIO 19; CALCIUM 10.2 MG/DL (8.5-10.1); CARBON DIOXIDE 25 MMOL/L (21-32); CHLORIDE 103 MMOL/L (98-107); CREATININE SERUM 1.33 MG/DL (0.60-1.30); GFR ESTIMATED 38; GLUCOSE 305 MG/DL (70-105); POTASSIUM 4.5 MMOL/L (3.6-5.0); SODIUM 136 MMOL/L (135-145); TOTAL PROTEIN 7.1 GM/DL (6.4-8.2)
[2017-10-22] MEDS ORDERED: OMG1KC PO (14:08)
[2017-10-22] MEDS ORDERED: OLME40TA18 PO ×2 (14:08)
[2017-10-22] MEDS ORDERED: METO-370 PO ×2 (14:08)
[2017-10-22] MEDS ORDERED: SERT50TA9 PO ×2 (14:08)
[2017-10-22] MEDS ORDERED: AMLO10TA2 PO ×2 (14:08)
[2017-10-22] MEDS ORDERED: MECL-106 PO ×2 (14:08)
[2017-10-22] MEDS ORDERED: CITA20TA9 PO (14:08)
[2017-10-22] MEDS ORDERED: INSU100V5 SQ ×2 (14:08)
[2017-10-22] MEDS ORDERED: PREG100C PO ×2 (14:08)
--- NOTE | 2017-10-22 14:18 | Diagnostic Imaging Report ---
INDICATION: Shortness of breath. TIME OF EXAM: 2:28 p.m. COMPARISON: Correlation is made with prior study from 09/04/2017. FINDINGS: The heart size is stable. There is some hyperinflation consistent with COPD. No infiltrates are detected. No effusion or pneumothorax is identified. IMPRESSION: COPD. No acute abnormality is detected. Dictated by: Dictated on workstation # [id number]
--- NOTE | 2017-10-22 14:46 | Consultation-Cardiology ---
HPI-Cardiology Cardiology Consultation Date of Consultation 10/22/17 Date of Admission Time Seen by Provider: 14:40 Indication: CAD HPI Patient is a very pleasant 82 y/o female with history of CAD, COPD, HTN. Admitted to the hospital and planning for surgical intervention with Dr. Luis for left charcot foot. Complains of occasional episode of chest pain, occurring daily, states pain lasts for seconds, then resolved spontaneously. Denies any active chest pain at this time. Denies any dizziness or lightheadedness. Denies syncope. Patient was seen and evaluated with Delfina, she is an 82-year-old lady well- known to my practice with history of hypertension, [id number] coronary artery disease, had charcot foot and scheduled for elective surgery, she has been having occasional episode of chest pain described as dull achiness in the retrosternal area and left side of her chest lasting for few seconds and resolving spontaneously. Occurring every few days. Not related to exertion, her exercise ability is limited due to her underlying foot pain, was hospitalized for pneumonia recently and treated, still having some shortness of breath and cough. Denied any palpitation or syncope Home Medications & Allergies Allergies: Coded Allergies: Penicillins (Verified Allergy, Unknown, Pt has received Ceftriaxone in the past, 10/22/17) influenza virus vaccine, specific (Verified Adverse Reaction, Unknown, Not allergic just won't take Flu vaccine, 10/22/17) Home Medication List Reviewed: Yes IOH-Dbfige-Nzjgqv Hx Patient Social History Employed/Student: retired Smoking Status: Never a Smoker 2nd Hand Smoke Exposure: No Recent Hopitalizations: Yes ([id number]) Immunizations Up To Date Tetanus Booster (TDap): Unknown Date of Pneumonia Vaccine: Aug 28, 2012 Past Medical History CAD, HTN, HLP Family Medical History Significant Family History: No Pertinent Family Hx Family History: Arthritis Cardiovascular disease Diabetes mellitus Hypertension Constitutional: No chills, No diaphoresis, No dizziness, No fever, No malaise EENTM: No blurred vision, No double vision Respiratory: No cough, No dyspnea on exertion Cardiovascular: chest pain, edema, Hx of Intervention, No palpitations, vascular heart diseas Gastrointestinal: No constipation, No diarrhea Genitourinary: No discharge, No frequency Musculoskeletal: No back pain Skin: No lesions, No rash Psychiatric/Neurological: Denies Anxiety, Denies Depressed Reviewed Test Results Reviewed Test Results Lab Laboratory Tests 10/22/17 13:20: White Blood Count 7.0, Red Blood Count 3.81L, Hemoglobin 10.2L, Hematocrit 32L, Mean Corpuscular Volume 84, Mean Corpuscular Hemoglobin 27, Mean Corpuscular Hemoglobin Concent 32, Red Cell Distribution Width 17.2H, Platelet Count 102L, Mean Platelet Volume 11.0H, Neutrophils (%) (Auto) 69, Lymphocytes (%) (Auto) 25 , Monocytes (%) (Auto) 4, Eosinophils (%) (Auto) 2, Basophils (%) (Auto) 0, Neutrophils # (Auto) 4.9, Lymphocytes # (Auto) 1.7, Monocytes # (Auto) 0.3, Eosinophils # (Auto) 0.1, Basophils # (Auto) 0.0, Sodium Level 136, Potassium Level 4.5, Chloride Level 103, Carbon Dioxide Level 25, Anion Gap 8, Blood Urea Nitrogen 25H, Creatinine 1.33H, Estimat Glomerular Filtration Rate 38, BUN/ Creatinine Ratio 19, Glucose Level 305H, Calcium Level 10.2H, Total Bilirubin 1.0, Aspartate Amino Transf (AST/SGOT) 17, Alanine Aminotransferase (ALT/SGPT) 18, Alkaline Phosphatase 184H, Troponin I < 0.30, B-Type Natriuretic Peptide 177.3H, Total Protein 7.1, Albumin 4.3 Physical Exam Vital Signs Vital Signs - First Documented 10/22/17 12:50 Temp 98.4 Pulse 71 Resp 18 B/P (MAP) 172/75 (107) Pulse Ox 98 O2 Delivery Room Air Capillary Refill : General Appearance: No Apparent Distress, WD/WN HEENT: Normal ENT Inspection, Pharynx Normal Neck: Non Tender, Supple Respiratory: Chest Non Tender, Lungs Clear, No Respiratory Distress Cardiovascular: Regular Rate, Rhythm, No Edema, No Gallop, No JVD, No Murmur Gastrointestinal: Non Tender, Soft Rectal: Deferred Back: No CVA Tenderness Extremity: Non Tender, No Calf Tenderness Neurologic/Psychiatric: Alert, Oriented x3, assurance associate II-XII Norm as Tested Skin: Normal Color, Warm/Dry Lymphatic: No Adenopathy A/P-Cardiology Admission Diagnosis Chest pain CAD HTN HLP Assessment/Plan Chest pain, nonspecific etiology- planning for lexiscan stress test in the morning. Coronary artery disease, history of PTCA and stent placement using 3.0 x 8 mm Taxus drug-eluting stent to the mid LAD, and Taxus 3.5 x 12 mm drug-eluting stent overlapping the mid LAD in February 2011, RCA had PTCA and stent placement using 3.0 x 24 mm Taxus drug-eluting stent. Most recent cardiac catheterization done in 2012 revealed patent stents. Stress test done in November 2015, showed no ischemia or infarction, echocardiogram showed diastolic dysfunction with normal systolic function, ejection fraction 60 percent, PA pressure 35 mmHg. Patient has been having increased episodes of chest pain, planning for further evaluation with stress test. L charcot foot- planning for surgical intervention on friday. Hypertension, restart home blood pressure medications and continue to monitor. Patient has history of orthostatic dizziness, cannot tolerate aggressive antihypertensive medication, continue to monitor blood pressure Hyperlipidemia, I will evaluate lipid profile in the morning. Carotid artery stenosis with history of left subclavian stent and carotid endarterectomy, monitored by heart and vascular care Pulmonary nodule, noted and followed with heart and vascular care as well as Dr. Caldera. COPD, obstructive sleep apnea. Started on C Pap machine, seen and followed by Dr. Caldera Anemia, history of GI bleed, followed by Dr. Magaña Chronic renal insufficiency, continue to monitor renal function. History of GI bleed with known multiple workups revealing no active bleed - Followed by Dr. Magaña and Dr. Bui Thank you for allowing us to participate in the management of Ms Agarwal. This is Delfina Michaud PA-C as a scribe for Dr. House. This is Dr. House, I have seen and evaluated the patient with Delfina, interviewed the patient and perform physical examination. I agree with the current scribe, in summary she is an 82 years old lady with history of coronary artery disease, hypertension and hyperlipidemia, has Charcot foot and scheduled for elective surgery, she was preadmitted for optimizing of her medical therapy and evaluation for her chest pain, has been having recurrent episode of chest pain described it as dull in nature on the left side of her chest occurring every few days and lasting for few seconds. Not related to exertion. She is recovering from pneumonia and still having some shortness of breath and cough. On examination lungs were clear to auscultation bilaterally, heart is regular rate and rhythm with normal S1 and S2. Patient uses C Pap machine at home for underlying sleep apnea. I am planning to proceed with Lexiscan stress test in the morning and restart home medication monitor blood pressure and renal function. Further recommendation will follow based on his progression. I made few modification to the note and used Italic Font DELFINA SAUER Oct 22, 2017 2:46 pm JULIETTE HOUSE MD Oct 22, 2017 4:10 pm
--- NOTE | 2017-10-22 15:04 | History & Physical-Hospitalist ---
History of Present Illness HPI/Chief Complaint CC: Weakness and left foot pain HPI: This is an 82yoWF clinic patient of Dr Bui's who has a h/o subdural hematoma due to a fall 09/14 who presents as a direct admit for weakness. Pt has mild cognitive deficiency so a detailed history is not obtainable. Apparently the patient is in need of left foot surgery due to complicated bone fracture and that is scheduled for Friday by Dr Luis. Pt was placed in observation and will be assessed for any reversible cause for weakness in order to proceed on with left foot surgery as planned. Dr House will see her in consultation for elevated BNP. Pt has very brittle DM and checks her sugar 5 times a day. She lives with her son and [id number] who take care of her and gives her all of her meds on schedule. Currently she takes Ultram for pain and has no other issues. Source: patient, family Exam Limitations: no limitations Date Seen 10/22/17 Time Seen by Provider: 13:00 Attending Physician Amos Luis Dpm PCP Andres Bui MD Referring Physician Date of Admission Oct 22, 2017 at 12:28 Home Medications & Allergies Home Medications Reviewed patient Home Medication Reconciliation performed by pharmacy medication reconciliations finishing lab technician and/or nursing. Patients Allergies have been reviewed. Allergies Allergies Coded Allergies Penicillins (Verified Allergy, Unknown, Pt has received Ceftriaxone in the past, 10/22/17) influenza virus vaccine, specific (Verified Adverse Reaction, Unknown, Not allergic just won't take Flu vaccine, 10/22/17) Past Adguqop-Txggbg-Dteslo Hx Past Med/Social Hx: Reviewed Nursing Past Med/Soc Hx, Reviewed and Corrections made Patient Social History Marrital Status: Employed/Student: retired Smoking Status: Never a Smoker 2nd Hand Smoke Exposure: No Recent Foreign Travel: No Contact w/other who traveled: No Recent Hopitalizations: Yes ([id number]) Recent Infectious Disease Expo: No Immunizations Up To Date Tetanus Booster (TDap): Unknown Date of Pneumonia Vaccine: Aug 28, 2012 Seasonal Allergies Seasonal Allergies: No Past Medical History Surgeries: Appendectomy, Eye Surgery, Hysterectomy, Joint Replacement Respiratory: Sleep Apnea Currently Using CPAP: Yes (with oxygen) Currently Using BIPAP: No Cardiac: Coronary Artery Disease, Hypertension Neurological: Dementia 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: No Sexually Transmitted Disease: No HIV/AIDS: No Female 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 Disorders: Denies Genitourinary: Bladder Infection, Renal Failure, UTI-Chronic Gastrointestinal: Gastroesophageal Reflux, Polyps, Hiatal Hernia Musculoskeletal: Arthritis Endocrine: Diabetes, Insulin dep HEENT: Cataract Loss of Vision: Denies Hearing Impairment: Denies Psychosocial: Anxiety, Depression History of Blood Disorders: Yes (ANEMIA) Adverse Reaction to Blood Herrera: No Family History Arthritis Cardiovascular disease Diabetes mellitus Hypertension No Pertinent Family Hx, Diabetes Review of Systems Constitutional: see HPI, dizziness, weakness EENTM: no symptoms reported Respiratory: no symptoms reported Cardiovascular: no symptoms reported Gastrointestinal: loss of appetite, nausea Genitourinary: no symptoms reported Musculoskeletal: joint pain Skin: no symptoms reported Psychiatric/Neurological: Depressed All Other Systems Reviewed Negative Unless Noted: Yes Physical Exam Physical Exam Vital Signs Vital Signs - First Documented 10/22/17 12:50 Temp 98.4 Pulse 71 Resp 18 B/P (MAP) 172/75 (107) Pulse Ox 98 O2 Delivery Room Air Capillary Refill : General Appearance: No Apparent Distress, WD/WN, Chronically ill Eyes: Bilateral Eye Normal Inspection, Bilateral Eye PERRL HEENT: PERRL/EOMI, Normal ENT Inspection, Pharynx Normal Neck: Full Range of Motion, Normal Inspection, Non Tender, Supple, Carotid Bruit Respiratory: Chest Non Tender, Lungs Clear, Normal Breath Sounds, No Accessory Muscle Use, No Respiratory Distress Cardiovascular: Regular Rate, Rhythm, No Edema, No Gallop, No JVD, No Murmur, Normal Peripheral Pulses Gastrointestinal: Normal Bowel Sounds, No Organomegaly, No Pulsatile Mass, Non Tender, Soft Back: Normal Inspection, No CVA Tenderness, No Vertebral Tenderness Extremity: Normal Capillary Refill, Normal Inspection, Normal Range of Motion ( except left leg and foot are in walking boot), Non Tender, No Calf Tenderness, No Pedal Edema Neurologic/Psychiatric: Alert, Oriented x3, No Motor/Sensory Deficits, Normal Mood/Affect Skin: Normal Color, Warm/Dry Lymphatic: No Adenopathy Results Results/Procedures Labs Laboratory Tests 10/22/17 13:20 Patient resulted labs reviewed. Assessment/Plan Admission Diagnosis Generalized weakness with left foot fracture complicated in need of repair Friday Extensive CAD hx managed by Dr Lacy Carmona with recent subdural hematoma 09/14 but immobile with high risk for left leg DVT so placed on DVT px dose of Lovenox Recent pneumonia 09/14 Plan: Monitor closely Assess labs Consult Dr House Admission Status: Observation Diagnosis/Problems Diagnosis/Problems (1) Weakness Status: Acute (2) Nausea alone Status: Acute (3) CAD (coronary artery disease) Status: Chronic Qualifiers: Coronary Disease-Associated Artery/Lesion type: [place] artery [place] vs. transplanted heart: [place] heart Associated angina: with stable angina Qualified Codes: I25.118 - Atherosclerotic heart disease of [place] coronary artery with other forms of angina pectoris (4) Subdural hematoma Status: Chronic (5) Renal insufficiency Status: Chronic (6) Anemia Status: Chronic Qualifiers: Anemia type: unspecified type Qualified Codes: D64.9 - Anemia, unspecified SANDIE HODGE DO Oct 22, 2017 15:04
[2017-10-22] MEDS ORDERED: NON-FORMULARY MEDICATION 1 EA EA (Polyvinyl Alcohol/Povidone (Artificial Tears Drops) 1 DR OU PRN (15:15)
[2017-10-22] MEDS ORDERED: RX-ALBUTEROL INHALER (PROAIR) 8 GM IH PRN (15:15)
[2017-10-22] MEDS ORDERED: RT-ALBUTEROL SULF 2.5 MG/3 ML PRE-MIX VIAL IH PRN (15:45)
[2017-10-22] MEDS ORDERED: ARTIFICAL TEARS 0.4 ML UNIT DOSE (REFRESH PLUS) OU PRN (16:00)
[2017-10-22] MEDS: inSUlin ASPART (NovoLOG) 1 UNIT/0.01 ML (CHARGE PER UNIT) SQ SCH (16:28)
[2017-10-22] MEDS: inSUlin ASPART (NovoLOG) 1 UNIT/0.01 ML (CHARGE PER UNIT) SC SCH ×2 (16:28→20:56)
[2017-10-22 16:46] VITALS: BP 143/65
--- NOTE | 2017-10-22 17:15 | Consultation ---
History of Present Illness History of Present Illness Patient Consulted On(kelly/time) 10/22/17 17:09 Date Seen by Provider: Oct 22, 2017 Time Seen by Provider: 17:50 Reason for Visit: CAD History of Present Illness Pt has left foot pain and swelling after a fall from standing in early August. Now has Charcot Deformity of the Left foot and is requiring surgical intervention. She presents early for preop testing and stabilization due to CAD and age. Allergies and Home Medications Allergies Coded Allergies: Penicillins (Verified Allergy, Unknown, Pt has received Ceftriaxone in the past, 10/22/17) influenza virus vaccine, specific (Verified Adverse Reaction, Unknown, Not allergic just won't take Flu vaccine, 10/22/17) Home Medications Acetaminophen 500 Mg Tablet, 500 MG PO Q6HR PRN for PAIN-MILD Prescribed by: LINDA MCKEON on 09/09/172003 Albuterol Sulfate 18 Gm Hfa.aer.ad, 2 PUFF INH Q4H PRN for SHORTNESS OF BREATH, (Reported) Amlodipine Besylate 10 Mg Tablet, 10 MG PO DAILY, (Reported) LAST FILLED #15 09-10-17 Atorvastatin Calcium 40 Mg Tablet, 40 MG PO HS, (Reported) Cyclosporine 1 Each Droperette, 1 DROP OU BID, (Reported) Fish Oil/Dha/Epa 1 Each Capsule, 3,600 MG PO DAILY, (Reported) TAKES 3 (1200MG) CAPSULES Fluticasone Propionate 16 Gm [place].susp, 1 SPRAY NS DAILY, (Reported) Fluticasone/Salmeterol 1 Each Blst.w.dev, 1 PUFF IH BID, (Reported) Folic Acid 0.8 Mg Tablet, 0.8 MG PO DAILY, (Reported) Furosemide 40 Mg Tablet, 40 MG PO DAILY, (Reported) Insulin Aspart 100 Unit/1 Ml Susp, 7 UNIT SQ BID, (Reported) WITH BREAKFAST AND EVENING MEAL Insulin Aspart 100 Unit/1 Ml Susp, 2 UNIT SQ 1200, (Reported) WITH LUNCH Insulin Determir 1,000 Units/10 Ml Soln, 40 UNITS SQ BID, (Reported) Levothyroxine Sodium 125 Mcg Tablet, 125 MCG PO DAILY, (Reported) Loratadine 10 Mg Tablet, 10 MG PO DAILY, (Reported) Meclizine HCl 25 Mg Tablet, 25 MG PO DAILY, (Reported) Metoprolol Succinate 50 Mg Tab.er.24h, 25 MG PO BID, (Reported) TAKES 1/2 (50MG) TABLET Multivitamin 1 Each Tablet, 1 TAB PO DAILY, (Reported) Niacin 1,000 Mg Tab.er.24h, 1,000 MG PO HS, (Reported) Olmesartan Medoxomil 40 Mg Tablet, 40 MG PO DAILY, (Reported) Omeprazole 40 Mg Capsule.dr, 40 MG PO DAILY, (Reported) Polyvinyl Alcohol/Povidone 15 Ml Drops, 1 DROP OU QID PRN for DRY EYES, ( Reported) Pregabalin 100 Mg Capsule, 100 MG PO 0800,1500,2100, (Reported) Sertraline HCl 50 Mg Tablet, 50 MG PO DAILY, (Reported) Solifenacin Succinate 5 Mg Tablet, 5 MG PO DAILY, (Reported) Tiotropium [place] 1 Inh Aerp, 1 CAP IH HS, (Reported) Trazodone HCl 100 Mg Tablet, 100 MG PO HS, (Reported) Patient Home Medication List Home Medication List Reviewed: Yes Past Ymawled-Ecgtll-Wubibg Hx Patient Social History Alcohol Use: Denies Use Recreational Drug Use: No Smoking Status: Never a Smoker 2nd Hand Smoke Exposure: No Recent Foreign Travel: No Contact w/Someone Who Travel: No Recent Infectious Disease Expo: No Recent Hopitalizations: Yes ([id number]) Immunizations Up To Date Tetanus Booster (TDap): Unknown Date of Pneumonia Vaccine: Aug 28, 2012 Seasonal Allergies Seasonal Allergies: No Surgeries History of Surgeries: Yes (SEVERAL) Surgeries: Appendectomy, Eye Surgery, Hysterectomy, Joint Replacement Respiratory History of Respiratory Disorde: Yes Respiratory Disorders: Pneumonia, Chronic Bronchitis, Sleep Apnea, COPD Currently Using CPAP: Yes (with oxygen) Currently Using BIPAP: No Cardiovascular History of Cardiac Disorders: Yes Cardiac Disorders: Hypertension Neurological History of Neurological Disord: No 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 System Hx 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 Disorders: No Sexually Transmitted Disease: No HIV/AIDS: No Female 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 Disorders: Denies Genitourinary History of Genitourinary Disor: Yes Genitourinary Disorders: Renal Failure, UTI-Chronic Gastrointestinal History of Gastrointestinal Di: Yes Gastrointestinal Disorders: Gastroesophageal Reflux, Polyps, Hiatal Hernia Musculoskeletal History of Musculoskeletal Dis: No Endocrine History of Endocrine Disorders: Yes (THYROID DISEASE) Endocrine Disorders: Diabetes, Insulin dep HEENT HEENT Disorders: Cataract Loss of Vision: Denies Hearing Impairment: Denies Cancer History of Cancer: No Psychosocial History of Psychiatric Problem: Yes Behavioral Health Disorders: Anxiety, Depression Integumentary History of Skin or Integumenta: No Blood Transfusions History of Blood Disorders: Yes (ANEMIA) Adverse Reaction to a Blood Tr: No Family Medical History Significant Family History: No Pertinent Family Hx Family Medial History: Arthritis Cardiovascular disease Diabetes mellitus Hypertension Physical Exam-General Problems Physical Exam Vital Signs Vital Signs - First Documented 10/22/17 12:50 Temp 98.4 Pulse 71 Resp 18 B/P (MAP) 172/75 (107) Pulse Ox 98 O2 Delivery Room Air Capillary Refill : Less Than 3 Seconds Extremities: other (LLE Charcot deformity with lateral deviation of the midfoot and tenting of the skin medially at the medial cuneiform. Pulses palpable, gross sensation deminished. ) Assessment/Plan Assessment/Plan Admission Diagnosis/Plan CAD Charcot Deformity LLE -CT ordered LLE -Cardiac and Medicine work up pending for clearance -Plan for OR Friday once cleared -NWB LLE Admission Status: Observation Reason for Inpatient Admission: CAD Clinical Quality Measures Admission Status Admission Status: Observation Reason for Inpatient Admission: CAD DVT/VTE Risk/Contraindication: Risk Factor Score Per Nursin RFS Level Per Nursing on Admit: 4+=Very High SANJUANA ANNE DPM Oct 22, 2017 17:15
--- NOTE | 2017-10-22 18:54 | Diagnostic Imaging Report ---
PROCEDURE: CT left lower extremity without contrast. TECHNIQUE: Multiple contiguous axial images were obtained through the left lower extremity without the use of intravenous contrast. Sagittal and coronal reformations were then performed. INDICATION: Fracture. FINDINGS: There is a homolateral fracture dislocation of the Lisfranc joint. There are comminuted fractures involving the proximal first, second, third, and fourth metatarsals. There is fragmentation of the medial, intermediate, and lateral cuneiform. There is widening of the joint space between the intermediate and lateral cuneiform. This presumably reflects neuropathic arthropathy. There are degenerative changes in the ankle and subtalar joints. The cuboid appears to be displaced inferiorly with respect to the anterior aspect of the talus. The tarsal bones are displaced superiorly. There is some degenerative cyst formation in the anterior aspect of the tarsal navicular. There is diffuse soft tissue swelling. There is a marked pes planus deformity as well. IMPRESSION: Chronic appearing homolateral Lisfranc fracture with fragmentation of the proximal metatarsals and tarsal bones as described. Findings presumably reflect neuropathic joint. Recommend clinical correlation. Dictated by: Dictated on workstation # [id number]
[2017-10-22] MEDS: RT-ADVAIR HFA 115/21 MCG PER PUFF IH SCH (19:23)
[2017-10-22 19:55] VITALS: BP 136/61
[2017-10-22] MEDS: DOCUSATE SODIUM 100 MG (COLACE) CAP PO SCH (20:37)
[2017-10-22] MEDS: ATORVASTATIN 40 MG (LIPITOR) TABLET PO SCH (20:37)
[2017-10-22] MEDS: meTOproloL SUCCINATE 50 MG (TOPROL XL) TAB PO SCH (20:38)
[2017-10-22] MEDS: traZODone 100 MG (DESYREL) TAB PO SCH (20:39)
[2017-10-22] MEDS: PREGABALIN 100 MG (LYRICA) CAPSULE PO SCH (20:39)
[2017-10-22] MEDS: NIACIN ER (NIASPAN) 500 MG TAB PO SCH (20:40)
[2017-10-22] MEDS: POLYETHYLENE GLYCOL 17 GM (MIRALAX) PACK PO SCH (20:42)
[2017-10-22] MEDS: inSUlin DETERMIR 1 UNIT/0.01 ML (LEVEMIR) CHARGE PER UNIT SQ SCH (20:55)
[2017-10-22] MEDS ORDERED: NIACIN 1000 MG PO SCH (21:00)
[2017-10-22] MEDS ORDERED: NON-FORMULARY MEDICATION 1 EA EA (Fluticasone/Salmeterol (Advair 250-50 Diskus) 1 PUFF) IH SCH (21:00)
[2017-10-22] MEDS ORDERED: inSUlin DETERMIR 1000 UNITS/10 ML VIAL (LEVEMIR) SQ SCH (21:00)
[2017-10-22] MEDS ORDERED: TIOTROPIUM BROMIDE (SPIRIVA) 5'S INHALER IH SCH (21:00)
[2017-10-22] MEDS ORDERED: NON-FORMULARY MEDICATION 1 EA EA (Cyclosporine (Restasis) 1 DROP) OU SCH (21:00)
[2017-10-23] VITALS (7 sets, daily range): BP systolic 119–180; BP diastolic 58–77
[2017-10-23 00:12] LABS: CLARITY,URINE CLEAR; COLOR,URINE YELLOW; GLUCOSE, URINE (UA) NEGATIVE (NEGATIVE); KETONES,URINE NEGATIVE (NEGATIVE); NITRITE,URINE NEGATIVE (NEGATIVE); PH,URINE 6 (5-9); PROTEIN,URINE 3+ (NEGATIVE)
[2017-10-23 00:13] LABS: BACTERIA,URINE NEGATIVE /HPF; BILIRUBIN,URINE NEGATIVE (NEGATIVE); LEUKOCYTE ESTERASE ,URINE 1+ (NEGATIVE); SQUAMOUS EPITHELIAL CELL,UR 0-2 /HPF; UROBILINOGEN,URINE NORMAL (NORMAL)
[2017-10-23 06:03] LABS: BASOPHILS % (AUTO) 0 % (0-10); EOSINOPHILS # (AUTO) 0.3 10^3/uL (0.0-0.3); EOSINOPHILS % (AUTO) 5 % (0-10); HEMATOCRIT 30 % (35-52); HEMOGLOBIN 9.7 G/DL (11.5-16.0); LYMPHOCYTES # (AUTO) 2.4 X 10^3 (1.0-4.0); LYMPHOCYTES % (AUTO) 36 % (12-44); MEAN CORPUSCULAR HEMOGLOBIN 27 PG (25-34); MEAN CORPUSCULAR HGB CONC 32 G/DL (32-36); MEAN CORPUSCULAR VOLUME 84 FL (80-99); MEAN PLATELET VOLUME 10.4 FL (7.4-10.4); MONOCYTES # (AUTO) 0.4 X 10^3 (0.0-1.0); MONOCYTES % (AUTO) 6 % (0-12); NEUTROPHILS # (AUTO) 3.6 X 10^3 (1.8-7.8); NEUTROPHILS % (AUTO) 53 % (42-75); PLATELET COUNT 104 10^3/uL (130-400); RED BLOOD COUNT 3.64 10^6/uL (4.35-5.85); RED CELL DISTRIBUTION WIDTH 17.2 % (10.0-14.5); WHITE BLOOD COUNT 6.7 10^3/uL (4.3-11.0)
[2017-10-23 06:27] LABS: ALBUMIN 3.9 GM/DL (3.2-4.5); CALCIUM 9.8 MG/DL (8.5-10.1); CREATININE SERUM 1.2 MG/DL (0.60-1.30); POTASSIUM 4.2 MMOL/L (3.6-5.0); TOTAL PROTEIN 6.4 GM/DL (6.4-8.2)
[2017-10-23] MEDS: inSUlin ASPART (NovoLOG) 1 UNIT/0.01 ML (CHARGE PER UNIT) SC SCH ×5 (06:35→20:47)
[2017-10-23] MEDS: PANTOPRAZOLE 40 MG (PROTONIX) TAB PO SCH (06:35)
[2017-10-23] MEDS: MULTIVIT W/MINERALS TAB (THERAGRAN M) PO SCH ×2 (06:35→11:02)
[2017-10-23] MEDS ORDERED: CATHETER FLUSH 10 ML SYR IV PRN (07:00)
[2017-10-23] MEDS: RT-ADVAIR HFA 115/21 MCG PER PUFF IH SCH ×2 (07:08→21:51)
[2017-10-23] MEDS ORDERED: REGADENOSON 0.4 MG/5 ML SYR (LEXISCAN) IV ONE ×2 (07:35→08:15)
[2017-10-23] MEDS: inSUlin ASPART (NovoLOG) 1 UNIT/0.01 ML (CHARGE PER UNIT) SQ SCH ×3 (07:42→16:09)
--- NOTE | 2017-10-23 08:42 | Cardiology Progress Note ---
Subjective Date Seen by Provider: Oct 23, 2017 Time Seen by Provider: 08:00 Subjective/Events-last exam Patient is down for stress test. Denies any CP or dyspnea. No complaints at this time. Review of Systems General: No Night Sweats, No Fatigue, No Malaise HEENT: No Visual Changes, No Dysphasia, No Sore Throat Pulmonary: No Dyspnea, No Cough Cardiovascular: No: Chest Pain, Palpitations Gastrointestinal: No: Nausea, Vomiting, Abdominal Pain Genitourinary: No Dysuria, No Frequency Musculoskeletal: foot pain (left foot pain), No: neck pain, back pain Neurological: No: Weakness, Numbness, Change in speech, Confusion Objective-Cardiology Exam Last Set of Vital Signs Vital Signs 10/23/17 10/23/17 10/23/17 04:30 07:09 08:04 Temp 98.1 Pulse 76 Resp 17 B/P (MAP) 121/61 (81) Pulse Ox 98 O2 Delivery Room Air Capillary Refill : Less Than 3 Seconds I&O Intake and Output 10/23/17 00:00 Intake Total 430 ml Output Total 300 ml Balance 130 ml Intake Oral 430 ml Output Urine Total 300 ml Daily Weight Change No General: Alert, Oriented X3, Cooperative HEENT: Atraumatic, PERRLA Neck: Supple, No JVD, No Thyromegaly Lungs: Clear to Auscultation, Normal Air Movement Heart: Regular Rate, Normal S1, Normal S2, No Murmurs Abdomen: Normal Bowel Sounds, Soft, No Tenderness, No Hepatosplenomegaly, No Masses Extremities: No Clubbing, No Cyanosis, No Edema, Normal Pulses, No Tenderness/ Swelling Skin: No Rashes, No Breakdown, No Significant Lesion Neuro: Normal Gait, Normal Speech, Strength at 5/5 X4 Ext, Normal Tone, Sensation Intact Psych/Mental Status: Mental Status NL, Mood NL Results Lab Laboratory Tests 10/22/17 13:20 10/23/17 05:53 A/P-Cardiology Admission Diagnosis Chest pain CAD HTN HLP Assessment/Plan Chest pain, nonspecific etiology- undergoing stress test this morning. Coronary artery disease, history of PTCA and stent placement using 3.0 x 8 mm Taxus drug-eluting stent to the mid LAD, and Taxus 3.5 x 12 mm drug-eluting stent overlapping the mid LAD in February 2011, RCA had PTCA and stent placement using 3.0 x 24 mm Taxus drug-eluting stent. Most recent cardiac catheterization done in 2012 revealed patent stents. Stress test done in November 2015, showed no ischemia or infarction, echocardiogram showed diastolic dysfunction with normal systolic function, ejection fraction 60 percent, PA pressure 35 mmHg. Continue to monitor. L charcot foot- planning for surgical intervention tomorrow. Hypertension, continue current medication and continue to monitor. Patient has history of orthostatic dizziness, cannot tolerate aggressive antihypertensive medication, continue to monitor blood pressure Hyperlipidemia, continue to monitor. Carotid artery stenosis with history of left subclavian stent and carotid endarterectomy, monitored by heart and vascular care Pulmonary nodule, noted and followed with heart and vascular care as well as Dr. Caldera. COPD, obstructive sleep apnea. Started on C Pap machine, seen and followed by Dr. Caldera Anemia, history of GI bleed, followed by Dr. Magaña Chronic renal insufficiency, continue to monitor renal function. History of GI bleed with known multiple workups revealing no active bleed - Followed by Dr. Magaña and Dr. Bui Clinical Quality Measures DVT/VTE Risk/Contraindication: Risk Factor Score Per Nursin RFS Level Per Nursing on Admit: 4+=Very High JANA SAUER Oct 23, 2017 08:42
[2017-10-23] MEDS ORDERED: NON-FORMULARY MEDICATION 1 EA EA (Folic Acid 0.8 MG) PO SCH (09:00)
[2017-10-23] MEDS ORDERED: EPA PO SCH (09:00)
[2017-10-23] MEDS ORDERED: SOLIFENACIN 5 MG TAB (VESICARE) NON-FORMULARY PO SCH (09:00)
[2017-10-23] MEDS ORDERED: FISH OIL PO SCH (09:00)
[2017-10-23] MEDS ORDERED: [UNRECOGNIZED DRUG - OTHER] PO SCH (09:00)
[2017-10-23] MEDS ORDERED: NON-FORMULARY MEDICATION 1 EA EA (Omeprazole 40 MG) PO SCH (09:00)
[2017-10-23] MEDS ORDERED: NON-FORMULARY MEDICATION 1 EA EA (Olmesartan Medoxomil 40 MG) PO SCH (09:00)
[2017-10-23] MEDS ORDERED: DHA PO SCH (09:00)
[2017-10-23] MEDS: meTOproloL SUCCINATE 50 MG (TOPROL XL) TAB PO SCH ×2 (10:56→20:46)
[2017-10-23] MEDS: PREGABALIN 100 MG (LYRICA) CAPSULE PO SCH ×3 (10:56→20:44)
[2017-10-23] MEDS: SERTRALINE 50 MG (ZOLOFT) TABLET PO SCH (10:56)
[2017-10-23] MEDS: OMEGA 3 (FISH OIL) 1000 MG CAP PO SCH (10:56)
[2017-10-23] MEDS: LEVOTHYROXINE 125 MCG (LEVOTHROID) TABLET PO SCH (10:56)
[2017-10-23] MEDS: DOCUSATE SODIUM 100 MG (COLACE) CAP PO SCH ×2 (10:57→20:44)
[2017-10-23] MEDS: FOLIC ACID 1 MG TAB PO SCH (10:57)
[2017-10-23] MEDS: amLODIPine 10 MG (NORVASC) TAB PO SCH (10:57)
[2017-10-23] MEDS: LORATADINE (CLARITIN) 10 MG TAB PO SCH (10:57)
[2017-10-23] MEDS: FUROSEMIDE 40 MG (LASIX) TAB PO SCH (10:57)
[2017-10-23] MEDS: POLYETHYLENE GLYCOL 17 GM (MIRALAX) PACK PO SCH ×2 (11:02→20:45)
[2017-10-23] MEDS: MECLIZINE 25 MG (ANTIVERT) TAB PO SCH (11:02)
[2017-10-23] MEDS: OLMESARTAN 20 MG (BENICAR) TABLET PO SCH (11:02)
--- NOTE | 2017-10-23 11:06 | Progress Note-Hospitalist ---
Subjective HPI/CC On Admission Date Seen by Provider: Oct 23, 2017 Time Seen by Provider: 10:00 CC: Weakness and left foot pain HPI: This is an 82yoWF clinic patient of Dr Bui'shruthi who has a h/o subdural hematoma due to a fall 09/14 who presents as a direct admit for weakness. Pt has mild cognitive deficiency so a detailed history is not obtainable. Apparently the patient is in need of left foot surgery due to complicated bone fracture and that is scheduled for Friday by Dr Luis. Pt was placed in observation and will be assessed for any reversible cause for weakness in order to proceed on with left foot surgery as planned. Dr House will see her in consultation for elevated BNP. Pt has very brittle DM and checks her sugar 5 times a day. She lives with her son and [id number] who take care of her and gives her all of her meds on schedule. Currently she takes Ultram for pain and has no other issues. Subjective/Events-last exam No issues overnight Gaining strength Checked meds and labs Diabetes well controlled No pain is reported Charcot left foot will require extensive surgery tomorrow by Dr Luis No CP or SOB Review of Systems General: Fatigue Musculoskeletal: foot pain Objective Exam Vital Signs Vital Signs Date Time Temp Pulse Resp B/P (MAP) Pulse Ox O2 Delivery O2 Flow Rate FiO2 10/22/17 12:50 98.4 71 18 172/75 (107) 98 Room Air Capillary Refill : Less Than 3 Seconds General Appearance: No Apparent Distress, WD/WN HEENT: PERRL/EOMI Neck: Full Range of Motion, Normal Inspection, Non Tender Respiratory: Chest Non Tender, Lungs Clear, Normal Breath Sounds, No Accessory Muscle Use, No Respiratory Distress Cardiovascular: Regular Rate, Rhythm, No Edema, No Gallop, No JVD, No Murmur, Normal Peripheral Pulses Extremity: Normal Capillary Refill, Normal Inspection (except left foot and leg in boot), Normal Range of Motion, Non Tender, No Calf Tenderness Results/Procedures Lab Laboratory Tests 10/22/17 13:20 10/23/17 05:53 Patient resulted labs reviewed. Assessment/Plan Assessment and Plan Assess & Plan/Chief Complaint Left Charcot joint causing pain and generalized weakness in need of surgical repair tomorrow CAD DM brittle HTN HLP JF on CPAP Anemia Plan: Proceed on with surgery tomorrow as planned since benefits outweigh risks Diagnosis/Problems Diagnosis/Problems (1) Weakness Status: Acute (2) Nausea alone Status: Acute (3) CAD (coronary artery disease) Status: Chronic Qualifiers: Coronary Disease-Associated Artery/Lesion type: [place] artery [place] vs. transplanted heart: [place] heart Associated angina: with stable angina Qualified Codes: I25.118 - Atherosclerotic heart disease of [place] coronary artery with other forms of angina pectoris (4) Subdural hematoma Status: Chronic (5) Renal insufficiency Status: Chronic (6) Anemia Status: Chronic Qualifiers: Anemia type: unspecified type Qualified Codes: D64.9 - Anemia, unspecified (7) Charcot foot due to diabetes mellitus Status: Acute Clinical Quality Measures DVT/VTE Risk/Contraindication: Risk Factor Score Per Nursin RFS Level Per Nursing on Admit: 4+=Very High SANDIE HODGE DO Oct 23, 2017 11:06
[2017-10-23] MEDS: inSUlin DETERMIR 1 UNIT/0.01 ML (LEVEMIR) CHARGE PER UNIT SQ SCH ×2 (11:28→20:51)
[2017-10-23] MEDS: FLUTICASONE NASAL SPRAY (FLONASE) 16 GM BTL NS SCH (11:29)
--- NOTE | 2017-10-23 13:25 | Cardiology Progress Note ---
Subjective Date Seen by Provider: Oct 23, 2017 Time Seen by Provider: 13:24 Subjective/Events-last exam Patient was seen and evaluated at bedside, feeling better, had stress test this morning showing no significant ischemia or infarction. Objective-Cardiology Exam Last Set of Vital Signs Vital Signs 10/23/17 10/23/17 08:00 08:04 Temp 97.6 Pulse 76 Resp 16 B/P (MAP) 121/61 (81) Pulse Ox 98 O2 Delivery Room Air Capillary Refill : Less Than 3 Seconds I&O Intake and Output 10/23/17 00:00 Intake Total 430 ml Output Total 300 ml Balance 130 ml Intake Oral 430 ml Output Urine Total 300 ml Daily Weight Change No General: Alert, Oriented X3, Cooperative HEENT: Atraumatic, PERRLA Neck: Supple, No JVD, No Thyromegaly Lungs: Clear to Auscultation, Normal Air Movement Heart: Regular Rate, Normal S1, Normal S2, No Murmurs Abdomen: Normal Bowel Sounds, Soft, No Tenderness, No Hepatosplenomegaly, No Masses Extremities: No Clubbing, No Cyanosis, No Edema, Normal Pulses, No Tenderness/ Swelling Skin: No Rashes, No Breakdown, No Significant Lesion Neuro: Normal Gait, Normal Speech, Strength at 5/5 X4 Ext, Normal Tone, Sensation Intact Psych/Mental Status: Mental Status NL, Mood NL Results Lab Laboratory Tests 10/23/17 05:53 A/P-Cardiology Admission Diagnosis Chest pain CAD HTN HLP Assessment/Plan Chest pain, nonspecific etiology, stress test showed typical female pattern with no significant ischemia or infarction. Continue to monitor as an outpatient Coronary artery disease, history of PTCA and stent placement using 3.0 x 8 mm Taxus drug-eluting stent to the mid LAD, and Taxus 3.5 x 12 mm drug-eluting stent overlapping the mid LAD in February 2011, RCA had PTCA and stent placement using 3.0 x 24 mm Taxus drug-eluting stent. Most recent cardiac catheterization done in 2012 revealed patent stents. Stress test done in November 2015, showed no ischemia or infarction, echocardiogram showed diastolic dysfunction with normal systolic function, ejection fraction 60 percent, PA pressure 35 mmHg. Continue to monitor. L yeimi foot- planning for surgical intervention tomorrow. Hypertension, continue current medication and continue to monitor. Patient has history of orthostatic dizziness, cannot tolerate aggressive antihypertensive medication, continue to monitor blood pressure Hyperlipidemia, continue to monitor. Carotid artery stenosis with history of left subclavian stent and carotid endarterectomy, monitored by heart and vascular care Pulmonary nodule, noted and followed with heart and vascular care as well as Dr. Caldera. COPD, obstructive sleep apnea. Started on C Pap machine, seen and followed by Dr. Caldera Anemia, history of GI bleed, followed by Dr. Magaña Chronic renal insufficiency, continue to monitor renal function. History of GI bleed with known multiple workups revealing no active bleed - Followed by Dr. Magaña and Dr. Bui Preoperative cardiac evaluation, patient overall is considered as intermediate risk for perioperative cardiac vascular complication, decision regarding the surgery, risks versus benefit is deferred to the surgeon Clinical Quality Measures DVT/VTE Risk/Contraindication: Risk Factor Score Per Nursin RFS Level Per Nursing on Admit: 4+=Very High JULIETTE GOMEZ MD Oct 23, 2017 13:25
[2017-10-23] MEDS: CATHETER FLUSH 10 ML SYR IV SCH ×2 (15:00→20:51)
[2017-10-23] MEDS: traZODone 100 MG (DESYREL) TAB PO SCH (20:44)
[2017-10-23] MEDS: ATORVASTATIN 40 MG (LIPITOR) TABLET PO SCH (20:44)
[2017-10-23] MEDS: NIACIN ER (NIASPAN) 500 MG TAB PO SCH (20:44)
[2017-10-23] MEDS: TROSPIUM 20 MG (SANCTURA) TAB PO SCH (20:46)
[2017-10-23] MEDS: UMECLIDINIUM BROMIDE (INCRUSE ELLIPTA) 7'S IH SCH (22:49)
[2017-10-24] VITALS: BP 127/58
[2017-10-24 05:00] VITALS: BP 110/51
[2017-10-24] MEDS: PANTOPRAZOLE 40 MG (PROTONIX) TAB PO SCH (05:59)
[2017-10-24] MEDS: LEVOTHYROXINE 125 MCG (LEVOTHROID) TABLET PO SCH (05:59)
[2017-10-24] MEDS: inSUlin ASPART (NovoLOG) 1 UNIT/0.01 ML (CHARGE PER UNIT) SC SCH ×4 (05:59→21:15)
[2017-10-24] MEDS: inSUlin ASPART (NovoLOG) 1 UNIT/0.01 ML (CHARGE PER UNIT) SQ SCH ×3 (06:00→16:57)
[2017-10-24] MEDS: CATHETER FLUSH 10 ML SYR IV SCH ×3 (06:00→21:19)
[2017-10-24] MEDS ORDERED: proPOfol 200 MG/20 ML (DIPRIVAN) VIAL IV ONE (06:50)
[2017-10-24] MEDS ORDERED: fentaNYL INJECTION 100 MCG/2 ML AMP ONE (06:50)
[2017-10-24] MEDS ORDERED: SEVOFLURANE (ULTANE) 15 ML INHAL SOLN ONE ×19 (06:50→13:03)
[2017-10-24] MEDS ORDERED: LIDOCAINE PF 2% 5 ML (XYLOCAINE) VIAL ONE (06:50)
[2017-10-24] MEDS ORDERED: ONDANSETRON 4 MG/2 ML (SDV) Z0FRAN ONE (06:50)
[2017-10-24] MEDS: UMECLIDINIUM BROMIDE (INCRUSE ELLIPTA) 7'S IH SCH ×2 (07:53→20:55)
[2017-10-24] MEDS: OLMESARTAN 20 MG (BENICAR) TABLET PO SCH (07:55)
[2017-10-24] MEDS: MECLIZINE 25 MG (ANTIVERT) TAB PO SCH (07:55)
[2017-10-24] MEDS: PREGABALIN 100 MG (LYRICA) CAPSULE PO SCH ×3 (07:55→21:07)
[2017-10-24] MEDS: FLUTICASONE NASAL SPRAY (FLONASE) 16 GM BTL NS SCH (07:55)
[2017-10-24] MEDS: OMEGA 3 (FISH OIL) 1000 MG CAP PO SCH (07:55)
[2017-10-24] MEDS: FUROSEMIDE 40 MG (LASIX) TAB PO SCH (07:56)
[2017-10-24] MEDS: LORATADINE (CLARITIN) 10 MG TAB PO SCH (07:56)
[2017-10-24] MEDS: FOLIC ACID 1 MG TAB PO SCH (07:56)
[2017-10-24] MEDS: POLYETHYLENE GLYCOL 17 GM (MIRALAX) PACK PO SCH ×2 (07:56→21:01)
[2017-10-24] MEDS: DOCUSATE SODIUM 100 MG (COLACE) CAP PO SCH ×2 (07:56→21:00)
[2017-10-24] MEDS: amLODIPine 10 MG (NORVASC) TAB PO SCH (07:57)
[2017-10-24] MEDS: meTOproloL SUCCINATE 50 MG (TOPROL XL) TAB PO SCH ×2 (07:57→21:01)
[2017-10-24] MEDS: SERTRALINE 50 MG (ZOLOFT) TABLET PO SCH (07:57)
[2017-10-24] MEDS: inSUlin DETERMIR 1 UNIT/0.01 ML (LEVEMIR) CHARGE PER UNIT SQ SCH ×2 (07:57→21:15)
[2017-10-24] MEDS: RT-ADVAIR HFA 115/21 MCG PER PUFF IH SCH ×2 (07:58→19:30)
[2017-10-24 08:00] VITALS: BP 154/74
[2017-10-24] MEDS ORDERED: CLINDAMYCIN 600 MG/50 ML IVPB 50 ML IV ONE ×2 (08:00→12:30)
[2017-10-24] MEDS ORDERED: NS (IVPB) 50 ML ONE (08:05)
[2017-10-24] MEDS: LACTATED RINGERS 1,000 ML IV PRN ×2 (08:10→10:23)
[2017-10-24] MEDS ORDERED: GENTAMICIN 40 MG/ML 2 ML INJ SDV ONE (08:20)
[2017-10-24] MEDS ORDERED: VANCOMYCIN 1000 MG/VIAL ONE (08:20)
[2017-10-24] MEDS ORDERED: GENTAMICIN (ADULT) INJECTION 80 MG in NS (IVPB) 100 ML IV ONE (08:30)
[2017-10-24] MEDS ORDERED: VANCOMYCIN INJECTION 1,000 MG in NS (IVPB) 250 ML IV ONE (08:30)
[2017-10-24] MEDS ORDERED: ONDANSETRON 4 MG/2 ML (SDV) Z0FRAN IVP PRN ×2 (09:15→13:45)
[2017-10-24] MEDS ORDERED: morphine INJ 10 MG/ML 1ML (SYR OR VIAL) IVP PRN ×2 (09:15→13:45)
[2017-10-24] MEDS ORDERED: GLYCOPYRROLATE 0.2 MG/ML (ROBINUL) 2 ML VIAL ONE (09:23)
[2017-10-24] MEDS ORDERED: CLINDAMYCIN 600 MG/4ML (CLEOCIN) VIAL ONE (12:26)
[2017-10-24] MEDS ORDERED: VANCOMYCIN INJECTION 1,000 MG in NS (IVPB) 250 ML IV NR (13:45)
[2017-10-24] MEDS ORDERED: MEPERIDINE (DEMEROL) INJ 50 MG/ML IVP PRN (13:45)
--- NOTE | 2017-10-24 14:05 | Diagnostic Imaging Report ---
Indication: Charcot reconstruction left foot. Findings: Fluoroscopy was provided in OR for left foot surgery. 2 minutes and 51 seconds of fluoroscopy was utilized. The images demonstrate numerous screws transfixing the mid foot. There is a screw extending through the calcaneus and cuboid. A screw extending from the talus to the first metatarsal as well as another screw extending from the talus to the second metatarsal. Impression: Fluoroscopy for left foot surgery. Dictated by: Dictated on workstation # [id number]
--- NOTE | 2017-10-24 14:11 | Anesthesia-General Post-Op ---
General Patient Condition Mental Status/LOC: Same as Preop Cardiovascular: Satisfactory Nausea/Vomiting: Absent Respiratory: Satisfactory Pain: Controlled Complications: Absent Post Op Complications Complications None Follow Up Care/Instructions Patient Instructions None needed. Anesthesia/Patient Condition Patient Condition Patient is doing well, no complaints, stable vital signs, no apparent adverse anesthesia problems. No complications reported per nursing. MONIKA MANN CRNA Oct 24, 2017 14:11
[2017-10-24 14:45] VITALS: BP 153/67
[2017-10-24 16:44] VITALS: BP 134/60
[2017-10-24] MEDS: fentaNYL INJECTION 100 MCG/2 ML AMP IVP PRN ×2 (19:26→22:15)
[2017-10-24] MEDS ORDERED: CLINDAMYCIN 600 MG/50 ML IVPB 50 ML IV NR (20:00)
[2017-10-24 20:05] VITALS: BP 127/60
[2017-10-24] MEDS: NIACIN ER (NIASPAN) 500 MG TAB PO SCH (20:59)
[2017-10-24] MEDS: TROSPIUM 20 MG (SANCTURA) TAB PO SCH (20:59)
[2017-10-24] MEDS: ATORVASTATIN 40 MG (LIPITOR) TABLET PO SCH (21:00)
[2017-10-24] MEDS: traZODone 100 MG (DESYREL) TAB PO SCH (21:00)
[2017-10-25] VITALS: BP 115/53
[2017-10-25 04:00] VITALS: BP 118/56
[2017-10-25] MEDS: fentaNYL INJECTION 100 MCG/2 ML AMP IVP PRN (05:10)
[2017-10-25] MEDS: CATHETER FLUSH 10 ML SYR IV SCH ×3 (05:14→21:43)
[2017-10-25] MEDS: LEVOTHYROXINE 125 MCG (LEVOTHROID) TABLET PO SCH (06:42)
[2017-10-25] MEDS: PANTOPRAZOLE 40 MG (PROTONIX) TAB PO SCH (06:42)
[2017-10-25] MEDS: MULTIVIT W/MINERALS TAB (THERAGRAN M) PO SCH (06:42)
[2017-10-25] MEDS: inSUlin ASPART (NovoLOG) 1 UNIT/0.01 ML (CHARGE PER UNIT) SC SCH ×4 (06:42→21:43)
[2017-10-25] MEDS: inSUlin ASPART (NovoLOG) 1 UNIT/0.01 ML (CHARGE PER UNIT) SQ SCH ×3 (06:43→16:24)
[2017-10-25] MEDS: RT-ADVAIR HFA 115/21 MCG PER PUFF IH SCH ×2 (07:59→19:23)
[2017-10-25 08:00] VITALS: BP 120/56
[2017-10-25] MEDS: amLODIPine 10 MG (NORVASC) TAB PO SCH (09:48)
[2017-10-25] MEDS: FOLIC ACID 1 MG TAB PO SCH (09:48)
[2017-10-25] MEDS: OLMESARTAN 20 MG (BENICAR) TABLET PO SCH (09:48)
[2017-10-25] MEDS: DOCUSATE SODIUM 100 MG (COLACE) CAP PO SCH ×2 (09:48→21:44)
[2017-10-25] MEDS: FUROSEMIDE 40 MG (LASIX) TAB PO SCH (09:48)
[2017-10-25] MEDS: LORATADINE (CLARITIN) 10 MG TAB PO SCH (09:48)
[2017-10-25] MEDS: OMEGA 3 (FISH OIL) 1000 MG CAP PO SCH (09:48)
[2017-10-25] MEDS: PREGABALIN 100 MG (LYRICA) CAPSULE PO SCH ×3 (09:49→21:44)
[2017-10-25] MEDS: SERTRALINE 50 MG (ZOLOFT) TABLET PO SCH (09:49)
[2017-10-25] MEDS: MECLIZINE 25 MG (ANTIVERT) TAB PO SCH (09:49)
[2017-10-25] MEDS: meTOproloL SUCCINATE 50 MG (TOPROL XL) TAB PO SCH ×2 (09:49→21:44)
[2017-10-25] MEDS: inSUlin DETERMIR 1 UNIT/0.01 ML (LEVEMIR) CHARGE PER UNIT SQ SCH ×2 (09:50→21:43)
[2017-10-25] MEDS: POLYETHYLENE GLYCOL 17 GM (MIRALAX) PACK PO SCH ×2 (09:50→21:45)
[2017-10-25] MEDS: FLUTICASONE NASAL SPRAY (FLONASE) 16 GM BTL NS SCH (09:52)
[2017-10-25 10:24] LABS: BASOPHILS % (AUTO) 0 % (0-10); EOSINOPHILS # (AUTO) 0.1 10^3/uL (0.0-0.3); EOSINOPHILS % (AUTO) 1 % (0-10); HEMATOCRIT 27 % (35-52); HEMOGLOBIN 8.5 G/DL (11.5-16.0); LYMPHOCYTES # (AUTO) 1.9 X 10^3 (1.0-4.0); LYMPHOCYTES % (AUTO) 22 % (12-44); MEAN CORPUSCULAR HEMOGLOBIN 27 PG (25-34); MEAN CORPUSCULAR HGB CONC 32 G/DL (32-36); MEAN CORPUSCULAR VOLUME 84 FL (80-99); MEAN PLATELET VOLUME 10.3 FL (7.4-10.4); MONOCYTES % (AUTO) 11 % (0-12); NEUTROPHILS # (AUTO) 5.9 X 10^3 (1.8-7.8); NEUTROPHILS % (AUTO) 66 % (42-75); PLATELET COUNT 87 10^3/uL (130-400); RED BLOOD COUNT 3.18 10^6/uL (4.35-5.85); RED CELL DISTRIBUTION WIDTH 17.2 % (10.0-14.5)
[2017-10-25 10:44] LABS: CREATININE SERUM 1.55 MG/DL (0.60-1.30); POTASSIUM 4.5 MMOL/L (3.6-5.0)
[2017-10-25] MEDS: oxyCODONE/APAP 5/325MG (PERCOCET 5) TABLET PO PRN ×2 (11:04→21:45)
[2017-10-25 11:19] LABS: BILIRUBIN,URINE NEGATIVE (NEGATIVE); CLARITY,URINE SLIGHTLY CLOUDY; COLOR,URINE YELLOW; GLUCOSE, URINE (UA) NEGATIVE (NEGATIVE); KETONES,URINE NEGATIVE (NEGATIVE); LEUKOCYTE ESTERASE ,URINE 3+ (NEGATIVE); NITRITE,URINE NEGATIVE (NEGATIVE); PH,URINE 6 (5-9); PROTEIN,URINE 3+ (NEGATIVE); UROBILINOGEN,URINE NORMAL (NORMAL)
[2017-10-25 11:27] LABS: BACTERIA,URINE TRACE /HPF; WBC,URINE 25-50 /HPF
[2017-10-25 12:00] VITALS: BP 112/54
--- NOTE | 2017-10-25 12:14 | Physical Therapy Evaluation ---
PT Evaluation-General Medical Diagnosis Admission Date Oct 22, 2017 at 12:28 Medical Diagnosis: (L) foot charcot foot deformity Onset Date: Oct 24, 2017 Therapy Diagnosis Therapy Diagnosis: difficulty with transfers Height/Weight Height (Feet): 5 Height (Inches): 6.00 Weight (Pounds): 190 Weight (Ounces): 9.2 Precautions Precautions/Isolations: Fall Prevention, Standard Precautions, Pressure Ulcer Weight Bear Status Right Lower Extremity: Right Full Weight Bearing Left Lower Extremity: Left Non Weight Bearing Referral Physician: Toby Reason for Referral: Evaluation/Treatment Medical History Pertinent Medical History: CAD, COPD, DM, GERD, HTN, Hypothroidism, Neuropathy , Renal Insufficiency Social History Home: Single Level Current Living Status: Children Entry Into Home: Stairs With Railing Prior/Core FIM Prior Level of Function Functional [place] Measure 0=Not Assessed/NA 4=Minimal Assistance 1=Total Assistance 5=Supervision or Setup 2=Maximal Assistance 6=Modified [place] 3=Moderate Assistance 7=Complete [place] Bed Mobility: 7 Transfers (B,C,W/C) (FIM): 7 Gait: 7 Locomotion: 7 PT Evaluation-Current Subjective States that she is doing okay. Pain Numeric Pain Scale: 5-Moderate Pain Location: Left Location Body Site: Foot Objective Patient Orientation: Person, Place, Time, Situation ROM/Strength ROM Upper Extremities WFL ROM Lower Extremities WFL Strength Upper Extremities 5/5 Strength Lower Extremities 4+/5 except (L) foot which is in an external fixator Transfers Functional [place] Measure 0=Not Assessed/NA 4=Minimal Assistance 1=Total Assistance 5=Supervision or Setup 2=Maximal Assistance 6=Modified [place] 3=Moderate Assistance 7=Complete [place] Transfers (B, C, W/C) (FIM): 2 Scootin Rollin Supine to/from Sit: 2 bed t/f WC(FIM only if WC use): 2 able to perform slide board transfer with moderate assistance however she is unable to maintain NWB status Gait Anticipated Mode of Locomotion: Wheelchair Gait (FIM): 0 Distance (FIM): 0=does not occure Comments/Gait Description unable to stand while maintaining NWB status Balance Sitting Static: Good Sitting Dynamic: Good Standing Static: Poor Assessment/Needs Patient s/p fixation of charcot foot deformity. The patient has significant limitations with functional mobility secondary to NWB status. Rehab Potential: Good PT Short Term Goals Short Term Goals Time Frame: Nov 01, 2017 Transfers (B,C,W/C) (FIM): 3 PT Prison Goals Prison Goals PT [employer]els Sales Representative Goals Time Frame: Nov 08, 2017 Transfers (B,C,W/C) (FIM): 4 PT Plan Treatment/Plan Treatment Plan: Continue Plan of Care Treatment Plan: Bed Mobility, Functional Activity Emmy, Functional Strength, Therapeutic Exercise, Transfers Treatment Duration: Nov 08, 2017 Frequency: 6 times per week Estimated Hrs Per Day: .25 hour per day Patient and/or Family Agrees t: Yes Discharge Recommendations Therapy D/C Recommendations: [facility] (TCU/NH) Time/GCodes Time In: 1125 Time Out: 1200 Total Billed Treatment Time: 35 Total Billed Treatment 1, evaluation of low complexity G Codes Necessary: MELISSA Patino PT Oct 25, 2017 12:14
--- NOTE | 2017-10-25 12:18 | Progress Note-Hospitalist ---
Subjective HPI/CC On Admission Date Seen by Provider: Oct 25, 2017 Time Seen by Provider: 11:00 CC: Weakness and left foot pain HPI: This is an 82yoWF clinic patient of Dr Bui'shruthi who has a h/o subdural hematoma due to a fall 09/14 who presents as a direct admit for weakness. Pt has mild cognitive deficiency so a detailed history is not obtainable. Apparently the patient is in need of left foot surgery due to complicated bone fracture and that is scheduled for Friday by Dr Luis. Pt was placed in observation and will be assessed for any reversible cause for weakness in order to proceed on with left foot surgery as planned. Dr House will see her in consultation for elevated BNP. Pt has very brittle DM and checks her sugar 5 times a day. She lives with her son and [id number] who take care of her and gives her all of her meds on schedule. Currently she takes Ultram for pain and has no other issues. Subjective/Events-last exam Currently complains of weakness and some anxiety about getting up. She had been ambulatory before this Review of Systems Pulmonary: Dyspnea Neurological: Weakness Objective Exam Vital Signs Vital Signs Date Time Temp Pulse Resp B/P (MAP) Pulse Ox O2 Delivery O2 Flow Rate FiO2 10/22/17 12:50 98.4 71 18 172/75 (107) 98 Room Air Capillary Refill : Less Than 3 Seconds General Appearance: Chronically ill HEENT: Normal ENT Inspection, Pharynx Normal Neck: Non Tender, Limited Range of Motion Respiratory: Chest Non Tender, Lungs Clear, Normal Breath Sounds, No Accessory Muscle Use, No Respiratory Distress, Decreased Breath Sounds Cardiovascular: Regular Rate, Rhythm, No Gallop, Systolic Murmur Gastrointestinal: Normal Bowel Sounds, No Organomegaly, Non Tender, Soft Rectal: Deferred Back: Normal Inspection, No CVA Tenderness Extremity: Non Tender, No Calf Tenderness Neurologic/Psychiatric: Alert, Oriented x3, No Motor/Sensory Deficits, Normal Mood/Affect Skin: Warm/Dry, Pallor Results/Procedures Lab Laboratory Tests 10/25/17 10:16 Patient resulted labs reviewed. Assessment/Plan Assessment and Plan Assess & Plan/Chief Complaint Left Charcot joint status post surgical repair postop day number 1-doing well CAD DM brittle-currently with blood sugars in the 200s HTN HLP JF on CPAP Anemia-most likely secondary to chronic disease History of subdural hematoma secondary to falls Diagnosis/Problems Diagnosis/Problems (1) Charcot foot due to diabetes mellitus Status: Acute (2) Weakness Status: Acute (3) CAD (coronary artery disease) Status: Chronic Qualifiers: Coronary Disease-Associated Artery/Lesion type: [place] artery [place] vs. transplanted heart: [place] heart Associated angina: with stable angina Qualified Codes: I25.118 - Atherosclerotic heart disease of [place] coronary artery with other forms of angina pectoris (4) Anemia Status: Chronic Qualifiers: Anemia type: unspecified type Qualified Codes: D64.9 - Anemia, unspecified (5) Multiple falls Status: Chronic (6) Non-insulin dependent type 2 diabetes mellitus Status: Chronic (7) Essential (primary) hypertension Status: Chronic Clinical Quality Measures DVT/VTE Risk/Contraindication: Risk Factor Score Per Nursin RFS Level Per Nursing on Admit: 4+=Very High PAIGE WILEY MD Oct 25, 2017 12:18 pm
--- NOTE | 2017-10-25 14:25 | Progress Note-Cardiology ---
Cardiology SOAP Progress Note Subjective: No cp or palp or syncope Has had her foot surgery Objective: I&O/Vital Signs Vital Sign - Last 12Hours 10/25/17 10/25/17 10/25/17 10/25/17 04:00 07:00 07:59 08:00 Temp 99.6 99.6 Pulse 76 71 72 Resp 20 24 B/P (MAP) 118/56 (76) 120/56 (77) Pulse Ox 98 95 98 O2 Delivery Room Air Room Air Room Air 10/25/17 10/25/17 12:00 13:00 Temp 99.7 Pulse 76 77 Resp 20 B/P (MAP) 112/54 (73) Pulse Ox 97 O2 Delivery Room Air Intake and Output 10/25/17 00:00 Intake Total 1480 ml Output Total 1820 ml Balance -340 ml Weight (Pounds): 190 Weight (Ounces): 9.2 Weight (Calculated Kilograms): 86.906156 Constitutional: AAO x 3, well-developed, well-nourished Respiratory: No accessory muscle use, lungs clear to percussion, lungs clear to auscultation Cardiovascular: regular rate-rhythm, S1 and S2, systolic murmur (soft [place]AN[place] at card base) Gastrointestional: No tender, soft, No guarding, No rebound, audible bowel sounds Extremities: other (L foot in splint that we did not remove), No clubbing, No cyanosis, No significant edema Neurologic/Psychiatric: oriented x 3, grossly intact, power is 5/5 both on sides Skin: No rash on exposed areas, No ulcerations on exposed areas Results/Procedures: Labs Laboratory Tests 10/24/17 15:53: Glucometer 174H 10/24/17 20:35: Glucometer 229H 10/25/17 05:23: Glucometer 190H 10/25/17 10:16: White Blood Count 9.0, Red Blood Count 3.18L, Hemoglobin 8.5L, Hematocrit 27L, Mean Corpuscular Volume 84, Mean Corpuscular Hemoglobin 27, Mean Corpuscular Hemoglobin Concent 32, Red Cell Distribution Width 17.2H, Platelet Count 87L, Mean Platelet Volume 10.3, Neutrophils (%) (Auto) 66, Lymphocytes (%) (Auto) 22 , Monocytes (%) (Auto) 11, Eosinophils (%) (Auto) 1, Basophils (%) (Auto) 0, Neutrophils # (Auto) 5.9, Lymphocytes # (Auto) 1.9, Monocytes # (Auto) 1.0, Eosinophils # (Auto) 0.1, Basophils # (Auto) 0.0, Sodium Level 129L, Potassium Level 4.5, Chloride Level 98, Carbon Dioxide Level 24, Anion Gap 7, Blood Urea Nitrogen 22H, Creatinine 1.55H, Estimat Glomerular Filtration Rate 32, BUN/ Creatinine Ratio 14, Glucose Level 174H, Calcium Level 9.0 10/25/17 11:00: Urine Color YELLOW, Urine Clarity SLIGHTLY CLOUDY, Urine pH 6, Urine Specific [place] 1.015L, Urine Protein 3+H, Urine Glucose (UA) NEGATIVE, Urine Ketones NEGATIVE, Urine Nitrite NEGATIVE, Urine Bilirubin NEGATIVE, Urine Urobilinogen NORMAL, Urine Leukocyte Esterase 3+H, Urine RBC (Auto) 4+H, Urine RBC 10-25H, Urine WBC 25-50H, Urine Crystals NONE, Urine Bacteria TRACE, Urine Casts NONE, Urine Mucus NEGATIVE, Urine Culture Indicated YES 10/25/17 11:20: Glucometer 252H Microbiology 10/23/17 MRSA Screen - Final, Complete MRSA not isolated Laboratory Tests 10/25/17 10:16 A/P: Assessment: S/p surgery for L Charcot foot on 10/24/17 Hyponatremia, probably related to diuretic therapy Chronic nonspecific chest pain, currently stable Coronary artery disease, history of PTCA and stent placement using 3.0 x 8 mm Taxus drug-eluting stent to the mid LAD, and Taxus 3.5 x 12 mm drug-eluting stent overlapping the mid LAD in February 2011, RCA had PTCA and stent placement using 3.0 x 24 mm Taxus drug-eluting stent. Most recent cardiac catheterization done in 2012 revealed patent stents. Stress test done in November 2015, showed no ischemia or infarction, echocardiogram showed diastolic dysfunction with normal systolic function, ejection fraction 60 percent, PA pressure 35 mmHg. Hypertension, by history. Also has h/o orthostatic hypotension Hyperlipidemia Carotid artery stenosis with history of left subclavian stent and carotid endarterectomy, monitored by her vascular surgeon Pulmonary nodule, followed by Dr. Caldera. COPD JF, treated with CPAP and followed by Dr Caldera Anemia, history of GI bleed, followed by Dr. Magaña Chronic renal insufficiency Plan: * I reviewed her records, spoke with her and her , and examined her * Given no evidence of CHF and given presence of hyponatremia, we recommend d/c furosemide at this time * Follow labs CARL STEWART MD FACP FAC CCDS Oct 25, 2017 14:25
[2017-10-25 16:05] VITALS: BP 101/51
--- NOTE | 2017-10-25 18:49 | Podiatry Progress Note ---
Standard Progress Note Progress Notes/Assess & Plan Date Seen by Provider: Oct 25, 2017 Time Seen by Provider: 18:45 Progress/Assessment & Plan Pt POD #1 Left Charcot Reconstruction with External Fixation. Pt doing well, denies FCNV. Pain controlled with PO meds. Hasn't had a BM nor has she urinated since 11am. Currently has bladder scan pending. LLE- gross sensation intact, active ROM intact to the digits, moderate sanguinous drainage to the drain, Ex Fix intact, calves supple nontender Final Diagnosis POD#1 Charcot Reconstruction with External Fixation LLE -Cont PT/OT. May be partial WB to the ExFix for transfer only -Bladder scan pending. Replace snyder if needed. -hold DVT Proph for acute kidney injury. -Pain meds PRN SANJUANA ANNE DPEmmanuel Oct 25, 2017 18:49
[2017-10-25] MEDS: UMECLIDINIUM BROMIDE (INCRUSE ELLIPTA) 7'S IH SCH (19:23)
[2017-10-25 20:15] VITALS: BP 106/52
[2017-10-25] MEDS: ATORVASTATIN 40 MG (LIPITOR) TABLET PO SCH (21:44)
[2017-10-25] MEDS: TROSPIUM 20 MG (SANCTURA) TAB PO SCH (21:44)
[2017-10-25] MEDS: traZODone 100 MG (DESYREL) TAB PO SCH (21:44)
[2017-10-25] MEDS: NIACIN ER (NIASPAN) 500 MG TAB PO SCH (21:44)
[2017-10-26 00:12] VITALS: BP 105/52
[2017-10-26 03:31] VITALS: BP 132/63
[2017-10-26] MEDS: MULTIVIT W/MINERALS TAB (THERAGRAN M) PO SCH (06:10)
[2017-10-26] MEDS: PANTOPRAZOLE 40 MG (PROTONIX) TAB PO SCH (06:10)
[2017-10-26] MEDS: inSUlin ASPART (NovoLOG) 1 UNIT/0.01 ML (CHARGE PER UNIT) SC SCH ×4 (06:10→21:38)
[2017-10-26] MEDS: LEVOTHYROXINE 125 MCG (LEVOTHROID) TABLET PO SCH (06:10)
[2017-10-26] MEDS: CATHETER FLUSH 10 ML SYR IV SCH ×3 (06:11→21:00)
[2017-10-26] MEDS: inSUlin ASPART (NovoLOG) 1 UNIT/0.01 ML (CHARGE PER UNIT) SQ SCH ×3 (06:11→17:21)
[2017-10-26 06:24] LABS: BASOPHILS % (AUTO) 0 % (0-10); EOSINOPHILS # (AUTO) 0.3 10^3/uL (0.0-0.3); EOSINOPHILS % (AUTO) 3 % (0-10); HEMATOCRIT 26 % (35-52); HEMOGLOBIN 8.3 G/DL (11.5-16.0); LYMPHOCYTES % (AUTO) 21 % (12-44); MEAN CORPUSCULAR HEMOGLOBIN 27 PG (25-34); MEAN CORPUSCULAR HGB CONC 32 G/DL (32-36); MEAN CORPUSCULAR VOLUME 83 FL (80-99); MEAN PLATELET VOLUME 10.2 FL (7.4-10.4); MONOCYTES % (AUTO) 10 % (0-12); NEUTROPHILS # (AUTO) 6.1 X 10^3 (1.8-7.8); NEUTROPHILS % (AUTO) 66 % (42-75); PLATELET COUNT 99 10^3/uL (130-400); RED BLOOD COUNT 3.12 10^6/uL (4.35-5.85); RED CELL DISTRIBUTION WIDTH 17.1 % (10.0-14.5); WHITE BLOOD COUNT 9.4 10^3/uL (4.3-11.0)
[2017-10-26 06:54] LABS: ALBUMIN 3.4 GM/DL (3.2-4.5); BILIRUBIN,TOTAL 0.9 MG/DL (0.1-1.0); CALCIUM 9.2 MG/DL (8.5-10.1); CREATININE SERUM 1.95 MG/DL (0.60-1.30); POTASSIUM 4.8 MMOL/L (3.6-5.0); TOTAL PROTEIN 5.8 GM/DL (6.4-8.2)
[2017-10-26 08:00] VITALS: BP 123/57
[2017-10-26] MEDS: LORATADINE (CLARITIN) 10 MG TAB PO SCH (09:08)
[2017-10-26] MEDS: FOLIC ACID 1 MG TAB PO SCH (09:08)
[2017-10-26] MEDS: SERTRALINE 50 MG (ZOLOFT) TABLET PO SCH (09:08)
[2017-10-26] MEDS: inSUlin DETERMIR 1 UNIT/0.01 ML (LEVEMIR) CHARGE PER UNIT SQ SCH ×2 (09:09→21:38)
[2017-10-26] MEDS: OMEGA 3 (FISH OIL) 1000 MG CAP PO SCH (09:09)
[2017-10-26] MEDS: oxyCODONE/APAP 5/325MG (PERCOCET 5) TABLET PO PRN ×2 (09:09→13:51)
[2017-10-26] MEDS: meTOproloL SUCCINATE 50 MG (TOPROL XL) TAB PO SCH ×2 (09:10→21:41)
[2017-10-26] MEDS: MECLIZINE 25 MG (ANTIVERT) TAB PO SCH (09:10)
[2017-10-26] MEDS: amLODIPine 10 MG (NORVASC) TAB PO SCH (09:10)
[2017-10-26] MEDS: PREGABALIN 100 MG (LYRICA) CAPSULE PO SCH ×3 (09:10→21:37)
[2017-10-26] MEDS: DOCUSATE SODIUM 100 MG (COLACE) CAP PO SCH ×2 (09:11→21:20)
[2017-10-26] MEDS: POLYETHYLENE GLYCOL 17 GM (MIRALAX) PACK PO SCH ×3 (09:11→21:21)
[2017-10-26] MEDS: FLUTICASONE NASAL SPRAY (FLONASE) 16 GM BTL NS SCH (09:21)
[2017-10-26] MEDS: OLMESARTAN 20 MG (BENICAR) TABLET PO SCH (09:26)
[2017-10-26] MEDS: RT-ADVAIR HFA 115/21 MCG PER PUFF IH SCH ×2 (09:36→20:20)
[2017-10-26 12:00] VITALS: BP 143/63
[2017-10-26] MEDS: BENZONATATE 100 MG (TESSALON) CAPSULE PO SCH ×2 (12:39→21:37)
--- NOTE | 2017-10-26 12:39 | Diagnostic Imaging Report ---
CLINICAL INDICATION: Patient with cough. EXAM: Portable chest x-ray, upright view. COMPARISONS: Chest x-ray dated 10/22/2017. FINDINGS: Again seen mild bibasilar atelectasis or scarring. Otherwise, lungs are clear with no interval lung infiltrate. Pulmonary vasculature is within normal limits. Cardiac silhouette is upper limits of normal for portable projection. The remainder of this exam shows no significant interval change compared to the prior study of comparison. IMPRESSION: Stable chest x-ray exam with no interval radiographic evidence of acute cardiopulmonary process. Dictated by: Dictated on workstation # [id number]
--- NOTE | 2017-10-26 13:01 | Podiatry Progress Note ---
Standard Progress Note Progress Notes/Assess & Plan Date Seen by Provider: Oct 26, 2017 Time Seen by Provider: 12:58 Progress/Assessment & Plan Pt POD #2 Left Charcot Reconstruction with External Fixation. Pt doing well, denies FCNV. Pain controlled with PO meds. No BM x 3 days. She has developed an unproductive cough today. LLE- gross sensation intact, active ROM intact to the digits, drain removed today, Ex Fix intact, calves supple nontender Final Diagnosis POD #2 Charcot Reconstruction LLE -MAY BEAR WEIGHT TO TRANSFER ONLY -OUT OF BED TO CHAIR -INCENTIVE SPIROMETER ORDERED -Hold DVT Prophylaxis -PT -Pain meds prn SANJUANA ANNE DPM Oct 26, 2017 13:01
[2017-10-26] MEDS ORDERED: FLEET ENEMA ADULT 1 EA BTL PR PRN (13:15)
[2017-10-26] MEDS ORDERED: BISACODYL 10 MG SUPP (DULCOLAX) PR ONE (13:15)
--- NOTE | 2017-10-26 13:20 | Progress Note-Hospitalist ---
Subjective HPI/CC On Admission Date Seen by Provider: Oct 26, 2017 Time Seen by Provider: 12:15 CC: Weakness and left foot pain HPI: This is an 82yoWF clinic patient of Dr Bui'shruthi who has a h/o subdural hematoma due to a fall 09/14 who presents as a direct admit for weakness. Pt has mild cognitive deficiency so a detailed history is not obtainable. Apparently the patient is in need of left foot surgery due to complicated bone fracture and that is scheduled for Friday by Dr Luis. Pt was placed in observation and will be assessed for any reversible cause for weakness in order to proceed on with left foot surgery as planned. Dr House will see her in consultation for elevated BNP. Pt has very brittle DM and checks her sugar 5 times a day. She lives with her son and [id number] who take care of her and gives her all of her meds on schedule. Currently she takes Ultram for pain and has no other issues. Subjective/Events-last exam Patient complains of having of severe constant barking cough. In addition she complains of constipation has not had a bowel movement since before admission. Nursing staff notes that she doesn't turn much and is developing a little bit of a pressure area on her buttocks Review of Systems Pulmonary: Cough Gastrointestinal: Constipation Objective Exam Vital Signs Vital Signs Date Time Temp Pulse Resp B/P (MAP) Pulse Ox O2 Delivery O2 Flow Rate FiO2 10/22/17 12:50 98.4 71 18 172/75 (107) 98 Room Air 10/24/17 20:45 2.00 Capillary Refill : Less Than 3 Seconds General Appearance: Chronically ill HEENT: TMs Normal, Normal ENT Inspection Neck: Full Range of Motion, Normal Inspection, Non Tender, Supple Respiratory: Chest Non Tender, No Accessory Muscle Use, No Respiratory Distress , Decreased Breath Sounds, Rhonci Cardiovascular: Regular Rate, Rhythm, No Gallop, Normal Peripheral Pulses, Systolic Murmur Gastrointestinal: Normal Bowel Sounds, No Organomegaly, No Pulsatile Mass, Non Tender, Soft Rectal: Deferred Back: No CVA Tenderness Extremity: Normal Range of Motion, Non Tender, No Calf Tenderness, No Pedal Edema Neurologic/Psychiatric: Alert, Oriented x3, No Motor/Sensory Deficits Skin: Pallor Results/Procedures Lab Laboratory Tests 10/26/17 06:15 Patient resulted labs reviewed. Imaging: Reviewed Imaging Films (No infiltrate) Assessment/Plan Assessment and Plan Assess & Plan/Chief Complaint Left Charcot joint status post surgical repair postop day number 2-doing well CAD DM brittle-currently with blood sugars in the 200s HTN HLP JF on CPAP Anemia-most likely secondary to chronic disease History of subdural hematoma secondary to falls Cough without evidence of infiltrate will add cough medicine and start her on doxycycline, he is already on Advair and breathing treatments will try and avoid steroids because of her diabetes Constipation we'll give her fleets and Dulcolax Thrombocytopenia Anemia Chronic renal failure with a slight increase of creatinine encouraged her to drink water Diagnosis/Problems Diagnosis/Problems (1) Charcot foot due to diabetes mellitus Status: Acute (2) Weakness Status: Acute (3) CAD (coronary artery disease) Status: Chronic Qualifiers: Coronary Disease-Associated Artery/Lesion type: [place] artery [place] vs. transplanted heart: [place] heart Associated angina: with stable angina Qualified Codes: I25.118 - Atherosclerotic heart disease of [place] coronary artery with other forms of angina pectoris (4) Anemia Status: Chronic Qualifiers: Anemia type: unspecified type Qualified Codes: D64.9 - Anemia, unspecified (5) Multiple falls Status: Chronic (6) Non-insulin dependent type 2 diabetes mellitus Status: Chronic (7) Essential (primary) hypertension Status: Chronic Clinical Quality Measures DVT/VTE Risk/Contraindication: Risk Factor Score Per Nursin RFS Level Per Nursing on Admit: 4+=Very High PAIGE WILEY MD Oct 26, 2017 13:20
[2017-10-26] MEDS: DOXYCYCLINE 100 MG (VIBRAMYCIN) TABLET PO SCH (13:56)
[2017-10-26 16:05] VITALS: BP 107/53
--- NOTE | 2017-10-26 17:06 | Progress Note-Cardiology ---
Cardiology SOAP Progress Note Subjective: No cp or palp or syncope or shortness of breath at rest Objective: I&O/Vital Signs Vital Sign - Last 12Hours 10/26/17 10/26/17 10/26/17 10/26/17 07:00 08:00 09:36 12:00 Temp 99.7 98.9 Pulse 79 84 86 Resp 16 18 B/P (MAP) 123/57 (79) 143/63 (89) Pulse Ox 95 95 97 O2 Delivery Nasal Cannula Nasal Cannula Nasal Cannula O2 Flow Rate 1.50 2.00 1.50 10/26/17 10/26/17 13:00 13:58 Pulse 84 78 Pulse Ox 96 FiO2 21 Intake and Output 10/26/17 00:00 Intake Total 1880 ml Output Total 330 ml Balance 1550 ml Weight (Pounds): 190 Weight (Ounces): 9.2 Weight (Calculated Kilograms): 86.652002 Constitutional: AAO x 3, well-developed, well-nourished Respiratory: No accessory muscle use, lungs clear to percussion, lungs clear to auscultation Cardiovascular: regular rate-rhythm, S1 and S2, systolic murmur (soft HANNAH at card base) Gastrointestional: No tender, soft, No guarding, No rebound, audible bowel sounds Extremities: other (L foot in splint that we did not remove), No clubbing, No cyanosis, No significant edema Neurologic/Psychiatric: oriented x 3, grossly intact, power is 5/5 both on sides Skin: No rash on exposed areas, No ulcerations on exposed areas Results/Procedures: Labs Laboratory Tests 10/25/17 21:00: Glucometer 163H 10/26/17 05:24: Glucometer 192H 10/26/17 06:15: White Blood Count 9.4, Red Blood Count 3.12L, Hemoglobin 8.3L, Hematocrit 26L, Mean Corpuscular Volume 83, Mean Corpuscular Hemoglobin 27, Mean Corpuscular Hemoglobin Concent 32, Red Cell Distribution Width 17.1H, Platelet Count 99L, Mean Platelet Volume 10.2, Neutrophils (%) (Auto) 66, Lymphocytes (%) (Auto) 21 , Monocytes (%) (Auto) 10, Eosinophils (%) (Auto) 3, Basophils (%) (Auto) 0, Neutrophils # (Auto) 6.1, Lymphocytes # (Auto) 2.0, Monocytes # (Auto) 1.0, Eosinophils # (Auto) 0.3, Basophils # (Auto) 0.0, Sodium Level 127L, Potassium Level 4.8, Chloride Level 97L, Carbon Dioxide Level 21, Anion Gap 9, Blood Urea Nitrogen 29H, Creatinine 1.95H, Estimat Glomerular Filtration Rate 24, BUN/ Creatinine Ratio 15, Glucose Level 219H, Calcium Level 9.2, Total Bilirubin 0.9 , Aspartate Amino Transf (AST/SGOT) 14, Alanine Aminotransferase (ALT/SGPT) 14, Alkaline Phosphatase 138H, Total Protein 5.8L, Albumin 3.4 10/26/17 11:07: Glucometer 263H 10/26/17 16:09: Glucometer 209H Microbiology 10/23/17 MRSA Screen - Final, Complete MRSA not isolated 10/25/17 Urine Culture - Preliminary, Resulted NO GROWTH Laboratory Tests 10/25/17 10:16 10/26/17 06:15 A/P: Assessment: S/p surgery for L Charcot foot on 10/24/17 Hyponatremia, probably related to diuretic therapy Chronic nonspecific chest pain, currently stable Coronary artery disease, history of PTCA and stent placement using 3.0 x 8 mm Taxus drug-eluting stent to the mid LAD, and Taxus 3.5 x 12 mm drug-eluting stent overlapping the mid LAD in February 2011, RCA had PTCA and stent placement using 3.0 x 24 mm Taxus drug-eluting stent. Most recent cardiac catheterization done in 2012 revealed patent stents. Stress test done in November 2015, showed no ischemia or infarction, echocardiogram showed diastolic dysfunction with normal systolic function, ejection fraction 60 percent, PA pressure 35 mmHg. Hypertension, by history. Also has h/o orthostatic hypotension Hyperlipidemia Carotid artery stenosis with history of left subclavian stent and carotid endarterectomy, monitored by her vascular surgeon Pulmonary nodule, followed by Dr. Caldera. COPD JF, treated with CPAP and followed by Dr Caldera Anemia, history of GI bleed, followed by Dr. Magaña Chronic renal insufficiency Plan: * We recommend DVT prophylaxis * Given no evidence of CHF and given presence of hyponatremia, we recommend d/c furosemide at this time * Follow labs CARL STEWART MD [facility] Oct 26, 2017 17:06
[2017-10-26] MEDS: guaiFENesin SYRUP 100 MG/5 ML 10 ML (ROBITUSSIN SF) PO PRN (17:23)
[2017-10-26 20:00] VITALS: BP 137/60
[2017-10-26] MEDS: UMECLIDINIUM BROMIDE (INCRUSE ELLIPTA) 7'S IH SCH (20:19)
[2017-10-26] MEDS: RT-ALBUTEROL/IPRATROPIUM 3 ML (DUONEB) VIAL INH SCH (20:20)
[2017-10-26] MEDS: traZODone 100 MG (DESYREL) TAB PO SCH (21:37)
[2017-10-26] MEDS: ATORVASTATIN 40 MG (LIPITOR) TABLET PO SCH (21:37)
[2017-10-26] MEDS: NIACIN ER (NIASPAN) 500 MG TAB PO SCH (21:37)
[2017-10-26] MEDS: TROSPIUM 20 MG (SANCTURA) TAB PO SCH (21:37)
[2017-10-27] VITALS: BP 142/65
[2017-10-27] MEDS: DOXYCYCLINE 100 MG (VIBRAMYCIN) TABLET PO SCH ×2 (01:13→05:45)
[2017-10-27 04:00] VITALS: BP 127/61
[2017-10-27] MEDS: inSUlin ASPART (NovoLOG) 1 UNIT/0.01 ML (CHARGE PER UNIT) SC SCH ×4 (05:45→20:59)
[2017-10-27] MEDS: MULTIVIT W/MINERALS TAB (THERAGRAN M) PO SCH (05:45)
[2017-10-27] MEDS: CATHETER FLUSH 10 ML SYR IV SCH ×3 (05:45→20:58)
[2017-10-27] MEDS: PANTOPRAZOLE 40 MG (PROTONIX) TAB PO SCH (05:45)
[2017-10-27] MEDS: LEVOTHYROXINE 125 MCG (LEVOTHROID) TABLET PO SCH (05:45)
[2017-10-27] MEDS: inSUlin ASPART (NovoLOG) 1 UNIT/0.01 ML (CHARGE PER UNIT) SQ SCH ×3 (05:46→17:54)
[2017-10-27 06:39] LABS: BASOPHILS % (AUTO) 0 % (0-10); EOSINOPHILS # (AUTO) 0.1 10^3/uL (0.0-0.3); EOSINOPHILS % (AUTO) 1 % (0-10); HEMATOCRIT 26 % (35-52); HEMOGLOBIN 8.4 G/DL (11.5-16.0); LYMPHOCYTES # (AUTO) 1.2 X 10^3 (1.0-4.0); LYMPHOCYTES % (AUTO) 16 % (12-44); MEAN CORPUSCULAR HEMOGLOBIN 27 PG (25-34); MEAN CORPUSCULAR HGB CONC 33 G/DL (32-36); MEAN CORPUSCULAR VOLUME 82 FL (80-99); MONOCYTES # (AUTO) 0.6 X 10^3 (0.0-1.0); MONOCYTES % (AUTO) 8 % (0-12); NEUTROPHILS # (AUTO) 5.7 X 10^3 (1.8-7.8); NEUTROPHILS % (AUTO) 74 % (42-75); PLATELET COUNT 113 10^3/uL (130-400); RED BLOOD COUNT 3.15 10^6/uL (4.35-5.85); WHITE BLOOD COUNT 7.6 10^3/uL (4.3-11.0)
[2017-10-27 07:19] LABS: ALBUMIN 3.5 GM/DL (3.2-4.5); BILIRUBIN,TOTAL 0.9 MG/DL (0.1-1.0); CALCIUM 9.3 MG/DL (8.5-10.1); CREATININE SERUM 1.63 MG/DL (0.60-1.30); POTASSIUM 4.6 MMOL/L (3.6-5.0)
[2017-10-27 08:00] VITALS: BP 102/50
[2017-10-27] MEDS: OLMESARTAN 20 MG (BENICAR) TABLET PO SCH (08:08)
[2017-10-27] MEDS: SERTRALINE 50 MG (ZOLOFT) TABLET PO SCH (08:08)
[2017-10-27] MEDS: oxyCODONE/APAP 5/325MG (PERCOCET 5) TABLET PO PRN ×2 (08:08→14:10)
[2017-10-27] MEDS: OMEGA 3 (FISH OIL) 1000 MG CAP PO SCH (08:08)
[2017-10-27] MEDS: LORATADINE (CLARITIN) 10 MG TAB PO SCH (08:08)
[2017-10-27] MEDS: amLODIPine 10 MG (NORVASC) TAB PO SCH (08:08)
[2017-10-27] MEDS: meTOproloL SUCCINATE 50 MG (TOPROL XL) TAB PO SCH ×2 (08:09→20:57)
[2017-10-27] MEDS: inSUlin DETERMIR 1 UNIT/0.01 ML (LEVEMIR) CHARGE PER UNIT SQ SCH ×2 (08:09→20:58)
[2017-10-27] MEDS: FOLIC ACID 1 MG TAB PO SCH (08:10)
[2017-10-27] MEDS: MECLIZINE 25 MG (ANTIVERT) TAB PO SCH (08:10)
[2017-10-27] MEDS: PREGABALIN 100 MG (LYRICA) CAPSULE PO SCH ×3 (08:10→20:57)
[2017-10-27] MEDS: POLYETHYLENE GLYCOL 17 GM (MIRALAX) PACK PO SCH ×3 (08:10→20:58)
[2017-10-27] MEDS: DOCUSATE SODIUM 100 MG (COLACE) CAP PO SCH ×2 (08:10→20:58)
[2017-10-27] MEDS: FLUTICASONE NASAL SPRAY (FLONASE) 16 GM BTL NS SCH (08:10)
[2017-10-27] MEDS: BENZONATATE 100 MG (TESSALON) CAPSULE PO SCH ×3 (08:11→20:58)
[2017-10-27] MEDS: guaiFENesin SYRUP 100 MG/5 ML 10 ML (ROBITUSSIN SF) PO PRN (08:11)
--- NOTE | 2017-10-27 08:50 | Cardiology Progress Note ---
Subjective Date Seen by Provider: Oct 27, 2017 Time Seen by Provider: 08:48 Subjective/Events-last exam Patient is sitting up in chair. C/o foot pain, denies any CP or dyspnea. No other complaints at this time. Objective-Cardiology Exam Last Set of Vital Signs Vital Signs 10/26/17 10/27/17 10/27/17 13:58 04:00 07:00 Temp 100.2 Pulse 83 Resp 18 B/P (MAP) 127/61 (83) Pulse Ox 95 O2 Delivery NIV CPAP O2 Flow Rate 2.00 2.00 FiO2 21 Capillary Refill : Less Than 3 Seconds I&O Intake and Output 10/27/17 00:00 Intake Total 2550 ml Output Total 1670 ml Balance 880 ml Intake Oral 2550 ml Output Urine Total 1670 ml Drainage Total 0 ml # Voids 6 # Bowel Movements 4 General: Alert, Oriented X3, Cooperative HEENT: Atraumatic, PERRLA Neck: Supple, No JVD, No Thyromegaly Lungs: Clear to Auscultation, Normal Air Movement Heart: Regular Rate, Normal S1, Normal S2, No Murmurs Abdomen: Normal Bowel Sounds, Soft, No Tenderness, No Hepatosplenomegaly, No Masses Extremities: No Clubbing, No Cyanosis, No Edema, Normal Pulses, No Tenderness/ Swelling Skin: No Rashes, No Breakdown, No Significant Lesion Neuro: Normal Gait, Normal Speech, Strength at 5/5 X4 Ext, Normal Tone, Sensation Intact Psych/Mental Status: Mental Status NL, Mood NL Results Lab Laboratory Tests 10/27/17 05:43 A/P-Cardiology Admission Diagnosis Chest pain CAD HTN HLP Assessment/Plan Chest pain, nonspecific etiology, stress test showed typical female pattern with no significant ischemia or infarction. Continue to monitor as an outpatient Coronary artery disease, history of PTCA and stent placement using 3.0 x 8 mm Taxus drug-eluting stent to the mid LAD, and Taxus 3.5 x 12 mm drug-eluting stent overlapping the mid LAD in February 2011, RCA had PTCA and stent placement using 3.0 x 24 mm Taxus drug-eluting stent. Most recent cardiac catheterization done in 2012 revealed patent stents. Stress test done in Aug 2017, showed no ischemia or infarction, echocardiogram showed diastolic dysfunction with normal systolic function, ejection fraction 60 percent, PA pressure 35 mmHg. Continue to monitor. L charcot foot- s/p surgical intervention on 10/24/17. Hypertension, continue current medication and continue to monitor. Patient has history of orthostatic dizziness, cannot tolerate aggressive antihypertensive medication, continue to monitor blood pressure Hyperlipidemia, continue to monitor. Carotid artery stenosis with history of left subclavian stent and carotid endarterectomy, monitored by heart and vascular care Pulmonary nodule, noted and followed with heart and vascular care as well as Dr. Caldera. COPD, obstructive sleep apnea. Started on C Pap machine, seen and followed by Dr. Caldera Anemia, history of GI bleed, followed by Dr. Magaña Chronic renal insufficiency, continue to monitor renal function. History of GI bleed with known multiple workups revealing no active bleed - Followed by Dr. Magaña and Dr. Bui Clinical Quality Measures DVT/VTE Risk/Contraindication: Risk Factor Score Per Nursin RFS Level Per Nursing on Admit: 4+=Very High JANA SAUER Oct 27, 2017 08:50
--- NOTE | 2017-10-27 09:20 | Cardiology Progress Note ---
Subjective Date Seen by Provider: Oct 27, 2017 Time Seen by Provider: 09:19 Subjective/Events-last exam Patient is sitting in a chair, eating breakfast, feeling better, still having occasional episodes of chest pain, lasting for few seconds and resolving spontaneously Review of Systems General: No Chills, No Night Sweats, No Fatigue, No Malaise, No Appetite, No Other HEENT: No Head Aches, No Visual Changes, No Eye Pain, No Ear Pain, No Dysphasia , No Sinus Congestion, No Post Nasal Drip, No Sore Throat, No Other Pulmonary: No Dyspnea, No Cough, No Pleuritic Chest Pain, No Other Cardiovascular: Chest Pain, No: Palpitations, Orthopnea, Paroxysmal Noc. Dyspnea, Edema, Lt Headedness, Other Objective-Cardiology Exam Last Set of Vital Signs Vital Signs 10/26/17 10/27/17 10/27/17 13:58 04:00 08:00 Temp 100.3 Pulse 84 Resp 22 B/P (MAP) 102/50 (67) Pulse Ox 96 O2 Delivery Room Air O2 Flow Rate 2.00 2.00 FiO2 21 Capillary Refill : Less Than 3 Seconds I&O Intake and Output 10/27/17 00:00 Intake Total 2550 ml Output Total 1670 ml Balance 880 ml Intake Oral 2550 ml Output Urine Total 1670 ml Drainage Total 0 ml # Voids 6 # Bowel Movements 4 General: Alert, Oriented X3, Cooperative HEENT: Atraumatic, PERRLA Neck: Supple, No JVD, No Thyromegaly Lungs: Clear to Auscultation, Normal Air Movement Heart: Regular Rate, Normal S1, Normal S2, No Murmurs Abdomen: Normal Bowel Sounds, Soft, No Tenderness, No Hepatosplenomegaly, No Masses Extremities: No Clubbing, No Cyanosis, No Edema, Normal Pulses, No Tenderness/ Swelling Skin: No Rashes, No Breakdown, No Significant Lesion Neuro: Normal Gait, Normal Speech, Strength at 5/5 X4 Ext, Normal Tone, Sensation Intact Psych/Mental Status: Mental Status NL, Mood NL Results Lab Laboratory Tests 10/27/17 05:43 A/P-Cardiology Admission Diagnosis Chest pain CAD HTN HLP Assessment/Plan Chest pain, nonspecific etiology, stress test showed typical female pattern with no significant ischemia or infarction. Continue to monitor as an outpatient Coronary artery disease, history of PTCA and stent placement using 3.0 x 8 mm Taxus drug-eluting stent to the mid LAD, and Taxus 3.5 x 12 mm drug-eluting stent overlapping the mid LAD in February 2011, RCA had PTCA and stent placement using 3.0 x 24 mm Taxus drug-eluting stent. Most recent cardiac catheterization done in 2012 revealed patent stents. Stress test done in Aug 2017, showed no ischemia or infarction, echocardiogram showed diastolic dysfunction with normal systolic function, ejection fraction 60 percent, PA pressure 35 mmHg. Continue to monitor. L charcot foot- s/p surgical intervention on 10/24/17. Continue to monitor Hypertension, continue current medication and continue to monitor. Patient has history of orthostatic dizziness, cannot tolerate aggressive antihypertensive medication, continue to monitor blood pressure Hyperlipidemia, continue to monitor. Carotid artery stenosis with history of left subclavian stent and carotid endarterectomy, monitored by heart and vascular care Pulmonary nodule, noted and followed with heart and vascular care as well as Dr. Caldera. COPD, obstructive sleep apnea. Started on C Pap machine, seen and followed by Dr. Caldera Anemia, history of GI bleed, followed by Dr. Magaña Chronic renal insufficiency, continue to monitor renal function. History of GI bleed with known multiple workups revealing no active bleed - Followed by Dr. Magaña and Dr. Bui Clinical Quality Measures DVT/VTE Risk/Contraindication: Risk Factor Score Per Nursin RFS Level Per Nursing on Admit: 4+=Very High JULIETTE GOMEZ MD Oct 27, 2017 9:20 am
--- NOTE | 2017-10-27 09:36 | Physical Therapy Daily Note ---
PT Daily Note-Current Subjective Patient reports she is tired. Incontinent urine and BM requiring assistance to cleanse and change. Pain Numeric Pain Scale: 0-No Pain Location: No Pain Reported Mental Status Patient Orientation: Person, Time, Situation Transfers Functional [place] Measure 0=Not Assessed/NA 4=Minimal Assistance 1=Total Assistance 5=Supervision or Setup 2=Maximal Assistance 6=Modified [place] 3=Moderate Assistance 7=Complete IndependenceIRFPAI Quality Coding Scale 6 Independent with activity with or without an assistive device 5 Patient requires set up or clean up by helper. Patient completes activity by themselves 4 Supervision or touching assist (CGA). [place] provide cues , steadying assist 3 The helper provides less than half the effort to complete the activity 2 The helper provides more than half the effort to complete the activity 1 Dependent. The helper does all the effort to complete an activity 7 Patient refused to complete or attempt activity 9 The patient did not perform the activity before the current illness or injury 88 Not attempted due to Medical conditions or safety concerns Transfers (B, C, W/C) (FIM): 5 Scootin Supine to/from Sit: 5 Sit to/from Stand: 5 Bed to/from Chair: 5 Patient is SBA with all bed mobility and transfers with use of FWW for stability. Patient transferred bed to commode to recliner. Weight Bearing Right Lower Extremity: Right Full Weight Bearing Left Lower Extremity: Left Weight Bearing/Tolerated Exercises Supine Ex: Ankle pumps (right), Heel Slides, Straight leg raise Supine Reps: 15 Seated Therapy Exercises: Long arc quads Seated Reps: 15 Assessment Patient is progressing and is currently SBA with bed mobility and transfers. PT Short Term Goals Short Term Goals Time Frame: Nov 01, 2017 Transfers (B,C,W/C) (FIM): 3 PT Longterm Goals Longterm Goals PT Longterm Goals Time Frame: Nov 08, 2017 Transfers (B,C,W/C) (FIM): 4 PT Plan Treatment/Plan Treatment Plan: Continue Plan of Care Treatment Plan: Bed Mobility, Functional Activity Emmy, Functional Strength, Therapeutic Exercise, Transfers Treatment Duration: Nov 08, 2017 Frequency: 6 times per week Estimated Hrs Per Day: .25 hour per day Patient and/or Family Agrees t: Yes Discharge Recommendations Therapy D/C Recommendations: Home w/ Family Support Time/GCodes Time In: 815 Time Out: 838 Total Billed Treatment Time: 23 Total Billed Treatment 1 visit FA 14 min EX 9 min GREGORIO AMADO PT Oct 27, 2017 09:36
[2017-10-27] MEDS: RT-ADVAIR HFA 115/21 MCG PER PUFF IH SCH ×2 (09:47→18:51)
[2017-10-27] MEDS: RT-ALBUTEROL/IPRATROPIUM 3 ML (DUONEB) VIAL INH SCH ×2 (09:47→18:51)
[2017-10-27] MEDS: UMECLIDINIUM BROMIDE (INCRUSE ELLIPTA) 7'S IH SCH (09:55)
[2017-10-27 12:00] VITALS: BP 87/48
--- NOTE | 2017-10-27 12:12 | Progress Note-Hospitalist ---
Subjective HPI/CC On Admission Date Seen by Provider: Oct 27, 2017 Time Seen by Provider: 11:30 CC: Weakness and left foot pain HPI: This is an 82yoWF clinic patient of Dr Bui'shruthi who has a h/o subdural hematoma due to a fall 09/14 who presents as a direct admit for weakness. Pt has mild cognitive deficiency so a detailed history is not obtainable. Apparently the patient is in need of left foot surgery due to complicated bone fracture and that is scheduled for Friday by Dr Luis. Pt was placed in observation and will be assessed for any reversible cause for weakness in order to proceed on with left foot surgery as planned. Dr House will see her in consultation for elevated BNP. Pt has very brittle DM and checks her sugar 5 times a day. She lives with her son and [id number] who take care of her and gives her all of her meds on schedule. Currently she takes Ultram for pain and has no other issues. Subjective/Events-last exam Pt reports doing well. Family at bedside- no complaints. Discussed DC planning and they are planning on DC-ing home and patient declines SNF. Objective Exam Vital Signs Vital Signs Date Time Temp Pulse Resp B/P (MAP) Pulse Ox O2 Delivery O2 Flow Rate FiO2 10/22/17 12:50 98.4 71 18 172/75 (107) 98 Room Air 10/24/17 20:45 2.00 10/26/17 13:58 21 Capillary Refill : Less Than 3 Seconds General Appearance: No Apparent Distress, WD/WN Respiratory: Lungs Clear, No Respiratory Distress Cardiovascular: Regular Rate, Rhythm, No Murmur Gastrointestinal: Normal Bowel Sounds, Soft Extremity: Other (left foot with external fixator in place, sensation intact) Neurologic/Psychiatric: Alert, Oriented x3 Results/Procedures Lab Laboratory Tests 10/27/17 05:43 Patient resulted labs reviewed. Imaging: Reviewed Imaging Films (No infiltrate) Assessment/Plan Assessment and Plan Assess & Plan/Chief Complaint Left Charcot joints/p surgical repair postop day number 3- doing well with PT- no complaints CAD- Dr House consulted- appreciate recs DM brittle-BS improving today HTN- well controlled JF on CPAP at night Anemia-most likely secondary to chronic disease No indication for blood transfusion at this time and will hold IV iron due to rising temps History of subdural hematoma on 09/02 secondary to fall Cough- sputum growing klebsiella- started on bactrim Constipation- resolved Thrombocytopenia- chronic CKD- improved from yesterday Clinical Quality Measures DVT/VTE Risk/Contraindication: Risk Factor Score Per Nursin RFS Level Per Nursing on Admit: 4+=Very High SUHA TAYLOR MD Oct 27, 2017 12:12 pm
[2017-10-27 15:39] VITALS: BP 97/47
--- NOTE | 2017-10-27 16:21 | Podiatry Progress Note ---
Standard Progress Note Progress Notes/Assess & Plan Date Seen by Provider: Oct 27, 2017 Time Seen by Provider: 16:18 Progress/Assessment & Plan Pt POD #3 Left Charcot Reconstruction with External Fixation. Pt doing well, denies FCNV. Pain controlled with PO meds. +BM last night. She has developed an unproductive cough + sputum cultures. LLE- Dressing changed today. Wound well coapted with sutures, no erythema, no drainage. gross sensation intact, active ROM intact to the digits, Ex Fix intact no drainage to pin sites, calves supple nontender Final Diagnosis POD #3 Charcot Reconstruction LLE -Minimal WBAT to Exfix to transfer -OOB to chair -Okay for D/C from podiatry standpoint, follow up 11/06 as out pt. SANJUANA ANNE DPM Oct 27, 2017 16:21
[2017-10-27] MEDS: TRIM/SULFAMETH 160/800 (SEPTRA DS) TAB PO SCH (17:49)
[2017-10-27 20:15] VITALS: BP 102/54
[2017-10-27] MEDS: NIACIN ER (NIASPAN) 500 MG TAB PO SCH (20:57)
[2017-10-27] MEDS: TROSPIUM 20 MG (SANCTURA) TAB PO SCH (20:57)
[2017-10-27] MEDS: ATORVASTATIN 40 MG (LIPITOR) TABLET PO SCH (20:57)
[2017-10-27] MEDS: traZODone 100 MG (DESYREL) TAB PO SCH (20:57)
[2017-10-28] VITALS: BP 117/56
[2017-10-28 04:00] VITALS: BP 114/55
[2017-10-28] MEDS: MULTIVIT W/MINERALS TAB (THERAGRAN M) PO SCH (06:03)
[2017-10-28] MEDS: LEVOTHYROXINE 125 MCG (LEVOTHROID) TABLET PO SCH (06:03)
[2017-10-28] MEDS: CATHETER FLUSH 10 ML SYR IV SCH ×3 (06:03→19:39)
[2017-10-28] MEDS: TRIM/SULFAMETH 160/800 (SEPTRA DS) TAB PO SCH ×2 (06:03→17:44)
[2017-10-28] MEDS: inSUlin ASPART (NovoLOG) 1 UNIT/0.01 ML (CHARGE PER UNIT) SC SCH ×4 (06:03→20:54)
[2017-10-28] MEDS: PANTOPRAZOLE 40 MG (PROTONIX) TAB PO SCH (06:03)
[2017-10-28 06:38] LABS: BASOPHILS % (AUTO) 0 % (0-10); EOSINOPHILS # (AUTO) 0.3 10^3/uL (0.0-0.3); EOSINOPHILS % (AUTO) 4 % (0-10); HEMATOCRIT 24 % (35-52); HEMOGLOBIN 7.9 G/DL (11.5-16.0); LYMPHOCYTES % (AUTO) 30 % (12-44); MEAN CORPUSCULAR HEMOGLOBIN 27 PG (25-34); MEAN CORPUSCULAR HGB CONC 33 G/DL (32-36); MEAN CORPUSCULAR VOLUME 82 FL (80-99); MEAN PLATELET VOLUME 10.6 FL (7.4-10.4); MONOCYTES # (AUTO) 0.7 X 10^3 (0.0-1.0); MONOCYTES % (AUTO) 10 % (0-12); NEUTROPHILS # (AUTO) 3.7 X 10^3 (1.8-7.8); NEUTROPHILS % (AUTO) 55 % (42-75); PLATELET COUNT 108 10^3/uL (130-400); RED BLOOD COUNT 2.96 10^6/uL (4.35-5.85); RED CELL DISTRIBUTION WIDTH 16.9 % (10.0-14.5); WHITE BLOOD COUNT 6.7 10^3/uL (4.3-11.0)
[2017-10-28 06:59] LABS: CALCIUM 9.4 MG/DL (8.5-10.1); CREATININE SERUM 2.18 MG/DL (0.60-1.30); POTASSIUM 4.1 MMOL/L (3.6-5.0)
[2017-10-28] MEDS: RT-ALBUTEROL/IPRATROPIUM 3 ML (DUONEB) VIAL INH SCH ×2 (07:25→18:43)
[2017-10-28] MEDS: RT-ADVAIR HFA 115/21 MCG PER PUFF IH SCH ×2 (07:26→18:43)
[2017-10-28 08:00] VITALS: BP 128/58
--- NOTE | 2017-10-28 08:18 | Cardiology Progress Note ---
Subjective Date Seen by Provider: Oct 28, 2017 Time Seen by Provider: 08:16 Subjective/Events-last exam Patient sitting up on commode. No new complaints. Denies any CP. Denies any dizziness or lightheadedness. Review of Systems General: No Night Sweats, No Fatigue, No Malaise HEENT: No Visual Changes, No Dysphasia, No Sore Throat Pulmonary: No Dyspnea, Cough Cardiovascular: No: Chest Pain, Palpitations, Paroxysmal Noc. Dyspnea, Edema Gastrointestinal: No: Nausea, Vomiting, Abdominal Pain Genitourinary: No Dysuria, No Frequency Musculoskeletal: No: neck pain, back pain Neurological: Weakness, No: Numbness, Change in speech, Confusion Objective-Cardiology Exam Last Set of Vital Signs Vital Signs 10/26/17 10/28/17 10/28/17 13:58 04:00 07:26 Temp 98.3 Pulse 69 Resp 18 B/P (MAP) 114/55 (74) Pulse Ox 97 O2 Delivery Room Air O2 Flow Rate 2.00 FiO2 21 Capillary Refill : Less Than 3 Seconds I&O Intake and Output 10/28/17 00:00 Intake Total 1812 ml Balance 1812 ml Intake Oral 1812 ml # Voids 11 # Bowel Movements 11 General: Alert, Oriented X3, Cooperative HEENT: Atraumatic, PERRLA Neck: Supple, No JVD, No Thyromegaly Lungs: Clear to Auscultation, Normal Air Movement Heart: Regular Rate, Normal S1, Normal S2, No Murmurs Abdomen: Normal Bowel Sounds, Soft, No Tenderness, No Hepatosplenomegaly, No Masses Extremities: No Clubbing, No Cyanosis, No Edema, Normal Pulses, No Tenderness/ Swelling Skin: No Rashes, No Breakdown, No Significant Lesion Neuro: Normal Gait, Normal Speech, Strength at 5/5 X4 Ext, Normal Tone, Sensation Intact Psych/Mental Status: Mental Status NL, Mood NL Results Lab Laboratory Tests 10/28/17 05:36 A/P-Cardiology Admission Diagnosis Chest pain CAD HTN HLP Assessment/Plan Chest pain, nonspecific etiology, stress test showed typical female pattern with no significant ischemia or infarction. Continue to monitor as an outpatient Coronary artery disease, history of PTCA and stent placement using 3.0 x 8 mm Taxus drug-eluting stent to the mid LAD, and Taxus 3.5 x 12 mm drug-eluting stent overlapping the mid LAD in February 2011, RCA had PTCA and stent placement using 3.0 x 24 mm Taxus drug-eluting stent. Most recent cardiac catheterization done in 2012 revealed patent stents. Stress test done in Aug 2017, showed no ischemia or infarction, echocardiogram showed diastolic dysfunction with normal systolic function, ejection fraction 60 percent, PA pressure 35 mmHg. Continue to monitor. Left Charcot foot- s/p surgical intervention on 10/24/17. Continue to monitor Hypertension, currently borderline hypotensive. Patient has history of orthostatic dizziness, cannot tolerate aggressive antihypertensive medication, continue to monitor blood pressure closely Hyperlipidemia, continue to monitor. Carotid artery stenosis with history of left subclavian stent and carotid endarterectomy, monitored by heart and vascular care Pulmonary nodule, noted and followed with heart and vascular care as well as Dr. Caldera. COPD, obstructive sleep apnea. Started on C Pap machine, seen and followed by Dr. Caldera Anemia, history of GI bleed, followed by Dr. Magaña Acute on Chronic renal insufficiency, continue to monitor renal function. History of GI bleed with known multiple workups revealing no active bleed - Followed by Dr. Magaña and Dr. Bui Clinical Quality Measures DVT/VTE Risk/Contraindication: Risk Factor Score Per Nursin RFS Level Per Nursing on Admit: 4+=Very High JANA SAUER Oct 28, 2017 08:18
[2017-10-28] MEDS: BENZONATATE 100 MG (TESSALON) CAPSULE PO SCH ×3 (08:25→20:54)
[2017-10-28] MEDS: SERTRALINE 50 MG (ZOLOFT) TABLET PO SCH (08:25)
[2017-10-28] MEDS: PREGABALIN 100 MG (LYRICA) CAPSULE PO SCH ×3 (08:25→20:54)
[2017-10-28] MEDS: FOLIC ACID 1 MG TAB PO SCH (08:26)
[2017-10-28] MEDS: LORATADINE (CLARITIN) 10 MG TAB PO SCH (08:26)
[2017-10-28] MEDS: amLODIPine 10 MG (NORVASC) TAB PO SCH (08:26)
[2017-10-28] MEDS: DOCUSATE SODIUM 100 MG (COLACE) CAP PO SCH ×2 (08:26→19:37)
[2017-10-28] MEDS: oxyCODONE/APAP 5/325MG (PERCOCET 5) TABLET PO PRN ×2 (08:26→15:33)
[2017-10-28] MEDS: meTOproloL SUCCINATE 50 MG (TOPROL XL) TAB PO SCH ×2 (08:26→20:54)
[2017-10-28] MEDS: OLMESARTAN 20 MG (BENICAR) TABLET PO SCH (08:27)
[2017-10-28] MEDS: POLYETHYLENE GLYCOL 17 GM (MIRALAX) PACK PO SCH ×3 (08:27→19:37)
[2017-10-28] MEDS: FLUTICASONE NASAL SPRAY (FLONASE) 16 GM BTL NS SCH (08:27)
[2017-10-28] MEDS: MECLIZINE 25 MG (ANTIVERT) TAB PO SCH (08:27)
[2017-10-28] MEDS: inSUlin ASPART (NovoLOG) 1 UNIT/0.01 ML (CHARGE PER UNIT) SQ SCH ×3 (08:28→17:46)
[2017-10-28] MEDS: inSUlin DETERMIR 1 UNIT/0.01 ML (LEVEMIR) CHARGE PER UNIT SQ SCH ×2 (08:28→20:54)
[2017-10-28] MEDS ORDERED: NS IV 1000 ML 1,000 ML IV SCH (08:30)
[2017-10-28] MEDS: OMEGA 3 (FISH OIL) 1000 MG CAP PO SCH (08:37)
[2017-10-28] MEDS: NS IV 1000 ML 1,000 ML IV SCH ×2 (10:36→17:45)
--- NOTE | 2017-10-28 10:46 | Physical Therapy Daily Note ---
PT Daily Note-Current Subjective Patient agrees to PT. Pain Numeric Pain Scale: 0-No Pain Location: No Pain Reported Mental Status Patient Orientation: Normal For Age Transfers Functional [place] Measure 0=Not Assessed/NA 4=Minimal Assistance 1=Total Assistance 5=Supervision or Setup 2=Maximal Assistance 6=Modified [place] 3=Moderate Assistance 7=Complete IndependenceIRFPAI Quality Coding Scale 6 Independent with activity with or without an assistive device 5 Patient requires set up or clean up by helper. Patient completes activity by themselves 4 Supervision or touching assist (CGA). [place] provide cues , steadying assist 3 The helper provides less than half the effort to complete the activity 2 The helper provides more than half the effort to complete the activity 1 Dependent. The helper does all the effort to complete an activity 7 Patient refused to complete or attempt activity 9 The patient did not perform the activity before the current illness or injury 88 Not attempted due to Medical conditions or safety concerns Transfers (B, C, W/C) (FIM): 5 Scootin Sit to/from Stand: 5 Bed to/from Chair: 5 Weight Bearing Right Lower Extremity: Right Full Weight Bearing Left Lower Extremity: Left Weight Bearing/Tolerated Exercises Seated Therapy Exercises: Long arc quads Seated Reps: 15 (2 sets) Assessment Patient remains up in recliner with needs met and family present. PT Short Term Goals Short Term Goals Time Frame: Nov 01, 2017 Transfers (B,C,W/C) (FIM): 3 PT Group Home Goals Protective Signal Repairer Helper Goals PT Group Home Goals Time Frame: Nov 08, 2017 Transfers (B,C,W/C) (FIM): 4 PT Plan Treatment/Plan Treatment Plan: Continue Plan of Care Treatment Plan: Bed Mobility, Functional Activity Emmy, Functional Strength, Therapeutic Exercise, Transfers Treatment Duration: Nov 08, 2017 Frequency: 6 times per week Estimated Hrs Per Day: .25 hour per day Patient and/or Family Agrees t: Yes Discharge Recommendations Therapy D/C Recommendations: Home w/ Family Support Time/GCodes Time In: 1015 Time Out: 1025 Total Billed Treatment Time: 10 Total Billed Treatment 1 visit FA 10 min GREGORIO AMADO PT Oct 28, 2017 10:46
[2017-10-28 12:00] VITALS: BP 118/55
--- NOTE | 2017-10-28 12:26 | Progress Note-Hospitalist ---
Subjective HPI/CC On Admission Date Seen by Provider: Oct 28, 2017 Time Seen by Provider: 12:21 CC: Weakness and left foot pain HPI: This is an 82yoWF clinic patient of Dr Bui'shruthi who has a h/o subdural hematoma due to a fall 09/14 who presents as a direct admit for weakness. Pt has mild cognitive deficiency so a detailed history is not obtainable. Apparently the patient is in need of left foot surgery due to complicated bone fracture and that is scheduled for Friday by Dr Luis. Pt was placed in observation and will be assessed for any reversible cause for weakness in order to proceed on with left foot surgery as planned. Dr House will see her in consultation for elevated BNP. Pt has very brittle DM and checks her sugar 5 times a day. She lives with her son and [id number] who take care of her and gives her all of her meds on schedule. Currently she takes Ultram for pain and has no other issues. Subjective/Events-last exam Pt reports feeling well. Up in chair with no complaints. Feels she is transferring well and will be able to at home. Her daughter at bedside feels comfortbale with plan to Dc home with HH when they leave. She did have bump in creatinine today though so will not Dc home today. Objective Exam Vital Signs Vital Signs Date Time Temp Pulse Resp B/P (MAP) Pulse Ox O2 Delivery O2 Flow Rate FiO2 10/22/17 12:50 98.4 71 18 172/75 (107) 98 Room Air 10/24/17 20:45 2.00 10/26/17 13:58 21 Capillary Refill : Less Than 3 Seconds General Appearance: No Apparent Distress, WD/WN Respiratory: Lungs Clear, No Respiratory Distress Cardiovascular: Regular Rate, Rhythm, No Murmur Gastrointestinal: Normal Bowel Sounds, Non Tender, Soft Extremity: Normal Capillary Refill, Other (external fixator in place on left foot) Neurologic/Psychiatric: Alert, Oriented x3, Normal Mood/Affect Results/Procedures Lab Laboratory Tests 10/28/17 05:36 Patient resulted labs reviewed. Imaging: Reviewed Imaging Films (No infiltrate) Assessment/Plan Assessment and Plan Assess & Plan/Chief Complaint Left Charcot joints/p surgical repair postop day number 4- doing well with PT- no complaints CKD- Worsened today, will start IVF Likely due to hypovolemia from diarrhea CAD- Dr House consulted- appreciate recs LAURA manning-BS within goal HTN- well controlled JF on CPAP at night Anemia-most likely secondary to chronic disease History of subdural hematoma on 09/02 secondary to fall Cough- sputum growing klebsiella- Cont on bactrim Constipation- resolved Thrombocytopenia- chronic Clinical Quality Measures DVT/VTE Risk/Contraindication: Risk Factor Score Per Nursin RFS Level Per Nursing on Admit: 4+=Very High SUHA TAYLOR MD Oct 28, 2017 12:25 pm
[2017-10-28] MEDS ORDERED: OXYC-471 PO ×2 (12:30)
--- NOTE | 2017-10-28 13:23 | Cardiology Progress Note ---
Subjective Date Seen by Provider: Oct 28, 2017 Time Seen by Provider: 08:15 Subjective/Events-last exam Patient is laying down in bed, feeling better, denied any chest pain, was having diarrhea, reporting improvement. Review of Systems General: No Chills, No Night Sweats, No Fatigue, No Malaise, No Appetite, No Other HEENT: No Head Aches, No Visual Changes, No Eye Pain, No Ear Pain, No Dysphasia , No Sinus Congestion, No Post Nasal Drip, No Sore Throat, No Other Pulmonary: No Dyspnea, No Cough, No Pleuritic Chest Pain, No Other Cardiovascular: No: Chest Pain, Palpitations, Orthopnea, Paroxysmal Noc. Dyspnea, Edema, Lt Headedness, Other Objective-Cardiology Exam Last Set of Vital Signs Vital Signs 10/26/17 13:58 FiO2 21 Capillary Refill : Less Than 3 Seconds I&O Intake and Output 10/28/17 00:00 Intake Total 1812 ml Balance 1812 ml Intake Oral 1812 ml # Voids 11 # Bowel Movements 11 General: Alert, Oriented X3, Cooperative HEENT: Atraumatic, PERRLA Neck: Supple, No JVD, No Thyromegaly Lungs: Clear to Auscultation, Normal Air Movement Heart: Regular Rate, Normal S1, Normal S2, No Murmurs Abdomen: Normal Bowel Sounds, Soft, No Tenderness, No Hepatosplenomegaly, No Masses Extremities: No Clubbing, No Cyanosis, No Edema, Normal Pulses, No Tenderness/ Swelling Skin: No Rashes, No Breakdown, No Significant Lesion Neuro: Normal Gait, Normal Speech, Strength at 5/5 X4 Ext, Normal Tone, Sensation Intact Psych/Mental Status: Mental Status NL, Mood NL Results Lab Laboratory Tests 10/28/17 05:36 A/P-Cardiology Admission Diagnosis Chest pain CAD HTN HLP Assessment/Plan Chest pain, nonspecific etiology, stress test showed typical female pattern with no significant ischemia or infarction. Continue to monitor as an outpatient Acute on chronic renal insufficiency, probably hypovolemic, continue with IV fluid bolus, discontinue Benicar for now and monitor blood pressure and renal function. Coronary artery disease, history of PTCA and stent placement using 3.0 x 8 mm Taxus drug-eluting stent to the mid LAD, and Taxus 3.5 x 12 mm drug-eluting stent overlapping the mid LAD in February 2011, RCA had PTCA and stent placement using 3.0 x 24 mm Taxus drug-eluting stent. Most recent cardiac catheterization done in 2012 revealed patent stents. Stress test done in Aug 2017, showed no ischemia or infarction, echocardiogram showed diastolic dysfunction with normal systolic function, ejection fraction 60 percent, PA pressure 35 mmHg. Continue to monitor. Left Charcot foot- s/p surgical intervention on 10/24/17. Continue to monitor Hypertension, currently borderline hypotensive. Patient has history of orthostatic dizziness, cannot tolerate aggressive antihypertensive medication, continue to monitor blood pressure closely Hyperlipidemia, continue to monitor. Carotid artery stenosis with history of left subclavian stent and carotid endarterectomy, monitored by heart and vascular care Pulmonary nodule, noted and followed with heart and vascular care as well as Dr. Caldera. COPD, obstructive sleep apnea. Started on C Pap machine, seen and followed by Dr. Caldera Anemia, history of GI bleed, followed by Dr. Magaña History of GI bleed with known multiple workups revealing no active bleed - Followed by Dr. Magaña and Dr. Bui Clinical Quality Measures DVT/VTE Risk/Contraindication: Risk Factor Score Per Nursin RFS Level Per Nursing on Admit: 4+=Very High JULIETTE GOMEZ MD Oct 28, 2017 13:23
--- NOTE | 2017-10-28 14:48 | D/C HH Face to Face Order ---
D/C Face to Face Orders Instructions for Patient Patient Instructions/FollowUp: Please continue to take your medications as written. Please work with your therapists as well to help rebuild your strength. Physician to follow Patient: Dr Bui Discharge Diet for Home: ADA Diet Patient Data-Allergies,Ht & Wt Patient Allergies: Coded Allergies: Penicillins (Verified Allergy, Unknown, Pt has received Ceftriaxone in the past, 10/22/17) influenza virus vaccine, specific (Verified Adverse Reaction, Unknown, Not allergic just won't take Flu vaccine, 10/22/17) Height (Feet): 5 Height (Inches): 6.00 Weight (Pounds): 190 Weight (Ounces): 9.2 Home Health Need/Face to Face Date of Face to Face: Oct 28, 2017 Clinical Findings: Non or partial weight bearing I have seen Pt [id number]: Yes Discharged To: Home Diagnosis/Conditions: Charcot foot s/p external fixation Problems/Diagnosis/Condition: Patient is Homebound due to: Morales fall risk due to instabilty, Non-weight bearing Homebound Status Due to the above stated illness, injury or surgical procedure (medical condition or diagnosis) and associated clinical findings, the patient is homebound because of his/her inability to leave home except with aid of a supportive device and/or person AND leaving the home requires a considerable and taxing effort or is medically contraindicated. Pt req the following assistanc: Aid of another person, Walker Home Health Nursing Orders Home Health Services Order: Nursing Services, Greenhouse Superintendent-Evaluate & Treat, Physical Therapy-Evaluate & Treat Home Health Infusion Therapy Line Type: Midline Site Location: Arm-Upper Therapy Orders Therapy Orders: OT (must have SN or PT order), Physical Therapy Therapy Specific Orders: Eval assistive deivces, Teach enviro modifications/ safety, Gait training, Increase strength/endurance Certify Stmt I certify that this patient is under my care and that I, a nurse practitioner or a physician; a assistant auditor working with me, had a face to face encounter that - meets the physician face to face encounter requirements with this patient as dated. SUHA TAYLOR MD Oct 28, 2017 2:47 pm
[2017-10-28] MEDS: guaiFENesin SYRUP 100 MG/5 ML 10 ML (ROBITUSSIN SF) PO PRN (15:33)
[2017-10-28 16:10] VITALS: BP 131/59
[2017-10-28] MEDS: UMECLIDINIUM BROMIDE (INCRUSE ELLIPTA) 7'S IH SCH (18:44)
[2017-10-28 20:26] VITALS: BP 116/54
[2017-10-28] MEDS: NIACIN ER (NIASPAN) 500 MG TAB PO SCH (20:54)
[2017-10-28] MEDS: traZODone 100 MG (DESYREL) TAB PO SCH (20:54)
[2017-10-28] MEDS: TROSPIUM 20 MG (SANCTURA) TAB PO SCH (20:54)
[2017-10-28] MEDS: ATORVASTATIN 40 MG (LIPITOR) TABLET PO SCH (20:59)
[2017-10-29] VITALS: BP 109/53
[2017-10-29 04:00] VITALS: BP 116/59
[2017-10-29] MEDS: CATHETER FLUSH 10 ML SYR IV SCH (05:18)
[2017-10-29] MEDS: inSUlin ASPART (NovoLOG) 1 UNIT/0.01 ML (CHARGE PER UNIT) SC SCH (06:01)
[2017-10-29] MEDS: LEVOTHYROXINE 125 MCG (LEVOTHROID) TABLET PO SCH (06:02)
[2017-10-29] MEDS: inSUlin ASPART (NovoLOG) 1 UNIT/0.01 ML (CHARGE PER UNIT) SQ SCH (06:02)
[2017-10-29] MEDS: NS IV 1000 ML 1,000 ML IV SCH (06:02)
[2017-10-29] MEDS: TRIM/SULFAMETH 160/800 (SEPTRA DS) TAB PO SCH (06:02)
[2017-10-29] MEDS: MULTIVIT W/MINERALS TAB (THERAGRAN M) PO SCH (06:02)
[2017-10-29] MEDS: PANTOPRAZOLE 40 MG (PROTONIX) TAB PO SCH (06:02)
[2017-10-29 06:26] LABS: CALCIUM 9.3 MG/DL (8.5-10.1); CREATININE SERUM 1.54 MG/DL (0.60-1.30); MAGNESIUM 1.8 MG/DL (1.8-2.4); POTASSIUM 4.3 MMOL/L (3.6-5.0)
[2017-10-29] MEDS: RT-ALBUTEROL/IPRATROPIUM 3 ML (DUONEB) VIAL INH SCH (07:51)
[2017-10-29] MEDS: RT-ADVAIR HFA 115/21 MCG PER PUFF IH SCH (07:53)
[2017-10-29 08:00] VITALS: BP 116/53
[2017-10-29] MEDS ORDERED: SULF1TAB34 PO ×2 (08:13)
--- NOTE | 2017-10-29 08:25 | Discharge Summary-Hospitalist ---
Diagnosis/Chief Complaint Date of Admission Oct 22, 2017 at 12:28 pm Date of Discharge Discharge Date: Oct 29, 2017 Admission Diagnosis Generalized weakness with left foot fracture s/p repair and external fixation Extensive CAD hx managed by Dr House Falls with recent subdural hematoma 09/14 but immobile with high risk for left leg DVT so placed on DVT px dose of Lovenox Klebsiella pneumonia- will complete course of Bactrim per sensitivities CKD- back to baseline at discharge Discharge Diagnosis Left Charcot joints/p surgical repair postop day number 4- doing well with PT- no complaints CKD- Worsened today, will start IVF Likely due to hypovolemia from diarrhea CAD- Dr House consulted- appreciate recs DM brittle-BS within goal HTN- well controlled JF on CPAP at night Anemia-most likely secondary to chronic disease History of subdural hematoma on 09/02 secondary to fall Cough- sputum growing klebsiella- Cont on bactrim Constipation- resolved Thrombocytopenia- chronic (1) Charcot foot due to diabetes mellitus Status: Acute (2) Weakness Status: Acute (3) CAD (coronary artery disease) Status: Chronic (4) Anemia Status: Chronic (5) Multiple falls Status: Chronic (6) Non-insulin dependent type 2 diabetes mellitus Status: Chronic (7) Essential (primary) hypertension Status: Chronic (8) Klebsiella pneumonia (9) CKD (chronic kidney disease) stage 3, GFR 30-59 ml/min Discharge Summary Procedures/Consulations Dr Luis- podiatry Dr House- Cardiology Discharge Physical Exam Allergies: Coded Allergies: Penicillins (Verified Allergy, Unknown, Pt has received Ceftriaxone in the past, 10/22/17) influenza virus vaccine, specific (Verified Adverse Reaction, Unknown, Not allergic just won't take Flu vaccine, 10/22/17) Vitals & I&Os Vital Signs Date Time Temp Pulse Resp B/P (MAP) Pulse Ox O2 Delivery O2 Flow Rate FiO2 10/29/17 07:51 96 Room Air 10/29/17 04:00 98.4 74 19 116/59 (78) 10/28/17 08:00 2.00 10/26/17 13:58 21 General Appearance: Alert, Oriented X3 Respiratory: Clear to Auscultation Cardiovascular: Regular Rate Hospital Course Pt was admitted due to charcot deformity necessitating surgical repair which she underwent on 10/24. She tolerated the procedure well and was treated by PT/ OT and deemed to be appropriate for discharge home with home health. I discussed this with patient and her daughter and they are comfortable with this plan. She did have an acute kidney injury during his postoperative period but responded well to IV fluids. She is to follow up with Dr Luis on 11/[address] House in 2-3 weeks. Labs (last 24 hrs) Laboratory Tests 10/28/17 11:00: Glucometer 144H 10/28/17 16:13: Glucometer 197H 10/28/17 20:28: Glucometer 159H 10/29/17 05:08: Glucometer 148H 10/29/17 05:41: Sodium Level 133L, Potassium Level 4.3, Chloride Level 110H, Carbon Dioxide Level 16L, Anion Gap 7, Blood Urea Nitrogen 29H, Creatinine 1.54H, Estimat Glomerular Filtration Rate 32, BUN/Creatinine Ratio 19, Glucose Level 141H, Calcium Level 9.3, Magnesium Level 1.8 Microbiology 10/28/17 C. difficile [facility] Antigen & Toxins - Final, Complete 10/26/17 Gram Stain - Final, Complete 10/26/17 Sputum Culture - Final, Complete Klebsiella pneumoniae Presumptive Sherrill Albicans 10/25/17 Urine Culture - Final, Complete NO GROWTH Patient resulted labs reviewed. Pending Labs Laboratory Tests 10/29/17 05:08: Glucometer 148 10/29/17 05:41: Sodium Level 133, Potassium Level 4.3, Chloride Level 110, Carbon Dioxide Level 16, Anion Gap 7, Blood Urea Nitrogen 29, Creatinine 1.54, Estimat Glomerular Filtration Rate 32, BUN/Creatinine Ratio 19, Glucose Level 141, Calcium Level 9.3, Magnesium Level 1.8 Imaging: Reviewed Imaging Films (No infiltrate) Discussion & Recommendations Discharge Planning: >30 minutes discharge planning Discharge Home Medications: Active Scripts Active Bactrim 400-80 mg Tablet (Sulfamethoxazole/Trimethoprim) 1 Each Tablet 1 Each PO BID Oxycodone-Acetaminophen 5-325 (Oxycodone HCl/Acetaminophen) 1 Each Tablet 1-2 Tab PO Q6H PRN Acetaminophen 500 Mg Tablet 500 Mg PO Q6HR PRN 30 Days Reported Amlodipine Besylate 10 Mg Tablet 10 Mg PO DAILY LAST FILLED #15 09-10-17 Metoprolol Succinate 50 Mg Tab.er.24h 25 Mg PO BID TAKES 1/2 (50MG) TABLET Lyrica (Pregabalin) 100 Mg Capsule 100 Mg PO 0800,1500,2100 Olmesartan Medoxomil 40 Mg Tablet 40 Mg PO DAILY Meclizine HCl 25 Mg Tablet 25 Mg PO DAILY Levemir (Insulin Determir) 1,000 Units/10 Ml Soln 40 Units SQ BID Sertraline HCl 50 Mg Tablet 50 Mg PO DAILY Vesicare (Solifenacin Succinate) 5 Mg Tablet 5 Mg PO DAILY Levothyroxine Sodium 125 Mcg Tablet 125 Mcg PO DAILY Loratadine 10 Mg Tablet 10 Mg PO DAILY Fluticasone Propionate 16 Gm [place].susp 1 [place] NS DAILY Ventolin Hfa (Albuterol Sulfate) 18 Gm Hfa.aer.ad 2 Puff INH Q4H PRN Fish Oil 1,200 mg Fish Oil (Fish Oil/Dha/Epa) 1 Each Capsule 3,600 Mg PO DAILY TAKES 3 (1200MG) CAPSULES Novolog (Insulin Aspart) 100 Unit/1 Ml Susp 2 Unit SQ 1200 WITH LUNCH Novolog (Insulin Aspart) 100 Unit/1 Ml Susp 7 Unit SQ BID WITH BREAKFAST AND EVENING MEAL Artificial Tears Drops (Polyvinyl Alcohol/Povidone) 15 Ml Drops 1 Drop OU QID PRN Restasis (Cyclosporine) 1 Each Droperette 1 Drop OU BID Omeprazole 40 Mg Capsule.dr 40 Mg PO DAILY Furosemide 40 Mg Tablet 40 Mg PO DAILY Spiriva (Tiotropium [place]) 1 Inh Aerp 1 Cap IH HS Atorvastatin Calcium 40 Mg Tablet 40 Mg PO HS Niacin ER (Niacin) 1,000 Mg Tab.er.24h 1,000 Mg PO HS Advair 250-50 Diskus (Fluticasone/Salmeterol) 1 Each Blst.w.dev 1 Puff IH BID Trazodone HCl 100 Mg Tablet 100 Mg PO HS Folic Acid 0.8 Mg Tablet 0.8 Mg PO DAILY Multivitamins (Multivitamin) 1 Each Tablet 1 Tab PO DAILY Instructions to patient/family Please see electronic discharge instructions given to patient. Clinical Quality Measures DVT/VTE Risk/Contraindication: Risk Factor Score Per Nursin RFS Level Per Nursing on Admit: 4+=Very High Copy Copies To 1: FELICITA CEDEÑO MD Problem Qualifiers (1) CAD (coronary artery disease): Coronary Disease-Associated Artery/Lesion type: tribal artery [place] vs. transplanted heart: tribal heart Associated angina: with stable angina Qualified Codes: I25.118 - Atherosclerotic heart disease of tribal coronary artery with other forms of angina pectoris (2) Anemia: Anemia type: unspecified type Qualified Codes: D64.9 - Anemia, unspecified SUHA TAYLOR MD Oct 29, 2017 8:25 am
[2017-10-29] MEDS: DOCUSATE SODIUM 100 MG (COLACE) CAP PO SCH (08:33)
[2017-10-29] MEDS: POLYETHYLENE GLYCOL 17 GM (MIRALAX) PACK PO SCH (08:34)
--- NOTE | 2017-10-29 08:38 | Cardiology Progress Note ---
Subjective Date Seen by Provider: Oct 29, 2017 Time Seen by Provider: 08:36 Subjective/Events-last exam Patient is sitting up in bed, reports she is going home today. Denies any CP or dyspnea. Review of Systems General: No Night Sweats, No Fatigue, No Malaise HEENT: No Visual Changes, No Dysphasia Pulmonary: No Dyspnea, No Cough Cardiovascular: No: Chest Pain, Palpitations Gastrointestinal: No: Nausea, Vomiting, Abdominal Pain Genitourinary: No Dysuria, No Frequency Musculoskeletal: foot pain (left foot), No: neck pain, back pain Neurological: No: Weakness, Numbness, Change in speech, Confusion Objective-Cardiology Exam Last Set of Vital Signs Vital Signs 10/26/17 10/29/17 10/29/17 13:58 04:00 07:51 Temp 98.4 Pulse 74 Resp 19 B/P (MAP) 116/59 (78) Pulse Ox 96 O2 Delivery Room Air FiO2 21 Capillary Refill : Less Than 3 Seconds I&O Intake and Output 10/29/17 00:00 Intake Total 2230 ml Output Total 1625 ml Balance 605 ml Intake Oral 2230 ml Output Urine Total 1625 ml # Voids 7 # Bowel Movements 4 General: Alert, Oriented X3 HEENT: Atraumatic, PERRLA Neck: Supple, No JVD, No Thyromegaly Lungs: Clear to Auscultation Heart: Regular Rate Abdomen: Normal Bowel Sounds, Soft, No Tenderness, No Hepatosplenomegaly, No Masses Extremities: No Clubbing, No Cyanosis, No Edema, Normal Pulses, No Tenderness/ Swelling Skin: No Rashes, No Breakdown, No Significant Lesion Neuro: Normal Gait, Normal Speech, Strength at 5/5 X4 Ext, Normal Tone, Sensation Intact Psych/Mental Status: Mental Status NL, Mood NL Results Lab Laboratory Tests 10/29/17 05:41 A/P-Cardiology Admission Diagnosis Chest pain CAD HTN HLP Assessment/Plan Chest pain, nonspecific etiology, stress test showed typical female pattern with no significant ischemia or infarction. Continue to monitor as an outpatient Acute on chronic renal insufficiency, probably hypovolemic, improving, discontinue Benicar for now and monitor blood pressure and renal function. Coronary artery disease, history of PTCA and stent placement using 3.0 x 8 mm Taxus drug-eluting stent to the mid LAD, and Taxus 3.5 x 12 mm drug-eluting stent overlapping the mid LAD in February 2011, RCA had PTCA and stent placement using 3.0 x 24 mm Taxus drug-eluting stent. Most recent cardiac catheterization done in 2012 revealed patent stents. Stress test done in Aug 2017, showed no ischemia or infarction, echocardiogram showed diastolic dysfunction with normal systolic function, ejection fraction 60 percent, PA pressure 35 mmHg. Continue to monitor. Left Charcot foot- s/p surgical intervention on 10/24/17. Continue to monitor Hypertension, controlled. ARB held secondary to renal function and hypotension. Blood pressure better today. Patient has history of orthostatic dizziness, cannot tolerate aggressive antihypertensive medication, continue to monitor blood pressure closely, continue to hold ARB Hyperlipidemia, continue to monitor. Carotid artery stenosis with history of left subclavian stent and carotid endarterectomy, monitored by heart and vascular care Pulmonary nodule, noted and followed with heart and vascular care as well as Dr. Caldera. COPD, obstructive sleep apnea. Started on C Pap machine, seen and followed by Dr. Caldera Anemia, history of GI bleed, followed by Dr. Magaña History of GI bleed with known multiple workups revealing no active bleed - Followed by Dr. Magaña and Dr. Bui Clinical Quality Measures DVT/VTE Risk/Contraindication: Risk Factor Score Per Nursin RFS Level Per Nursing on Admit: 4+=Very High JANA SAUER Oct 29, 2017 08:38
[2017-10-29] MEDS: meTOproloL SUCCINATE 50 MG (TOPROL XL) TAB PO SCH (08:51)
[2017-10-29] MEDS: OMEGA 3 (FISH OIL) 1000 MG CAP PO SCH (08:52)
[2017-10-29] MEDS: LORATADINE (CLARITIN) 10 MG TAB PO SCH (08:52)
[2017-10-29] MEDS: amLODIPine 10 MG (NORVASC) TAB PO SCH (08:52)
[2017-10-29] MEDS: FOLIC ACID 1 MG TAB PO SCH (08:52)
[2017-10-29] MEDS: SERTRALINE 50 MG (ZOLOFT) TABLET PO SCH (08:52)
[2017-10-29] MEDS: MECLIZINE 25 MG (ANTIVERT) TAB PO SCH (08:52)
[2017-10-29] MEDS: PREGABALIN 100 MG (LYRICA) CAPSULE PO SCH (08:52)
[2017-10-29] MEDS: BENZONATATE 100 MG (TESSALON) CAPSULE PO SCH (08:52)
[2017-10-29] MEDS: inSUlin DETERMIR 1 UNIT/0.01 ML (LEVEMIR) CHARGE PER UNIT SQ SCH (08:53)
[2017-10-29] MEDS: FLUTICASONE NASAL SPRAY (FLONASE) 16 GM BTL NS SCH (08:54)
[2017-10-29 11:15] VITALS: BP 116/53
--- NOTE | 2017-11-12 11:55 | STRESS TEST ---
LEXISCAN MYOVIEW STRESS TEST REPORT. REFERRING PHYSICIAN: Dr. Bui. Baseline heart rate is 60. Baseline blood pressure 140/70. Baseline EKG is sinus rhythm with no ischemic changes. In summary, the patient was injected with 10.14 mCi of technetium-99 Myoview and the resting images were obtained. Then, the patient received 0.4 mg of Lexiscan followed by 31.3 mCi of technetium-99 Myoview. Throughout the test, there were no EKG changes. The resting and stress images were reviewed and compared in the short axis, horizontal long axis, and vertical long axis views. Review of the images showed breast attenuation with typical female pattern. No significant ischemia or infarction was seen. SSS is 4, SDS is 4, TID value 1.09. On the gated images, the left ventricle appeared to be normal size with normal contractility. Calculated ejection fraction is 66%. CONCLUSION: 1. The patient tolerated Lexiscan well. 2. Breast attenuation with typical female pattern. No significant ischemia or infarction on SPECT images. 3. Normal left ventricular size and systolic function, estimated ejection fraction is 66%.
--- NOTE | 2017-12-02 08:58 | OPERATIVE REPORT ---
DATE OF SERVICE: 10/24/2017 SURGEON: Amos Anne DPM CLINICAL ABSTRACTOR: None. PREOPERATIVE DIAGNOSIS: Charcot foot deformity of the left lower extremity. POSTOPERATIVE DIAGNOSIS: Charcot foot deformity of the left lower extremity. PROCEDURE PERFORMED: 1. Charcot foot fusion with fusion of metatarsal cuneiform joints 1, 2 and 3 as well as fusion of fourth and fifth metatarsal cuboid joints. 2. Application of a circular frame external fixator. ANESTHESIA: General anesthesia. HEMOSTASIS: Pneumatic thigh tourniquet 300 mmHg. BLOOD LOSS: 100 mL. MATERIALS: [employer] medical screws, 3-0 Vicryl, 3-0 nylon, and [employer] medical external fixator, as well as a CARYN drain. INTRAOPERATIVE INJECTABLES: None. COMPLICATIONS: None. INDICATIONS FOR THE PROCEDURE: The patient is an 82-year-old female with a history of a Charcot deformity and with a Lisfranc fracture dislocation of her left foot. At this time, she is requiring surgical intervention. She has signed consent prior to being taken back to the OR. DESCRIPTION OF PROCEDURE: Under mild sedation, the patient was brought into the OR and placed on the operating table in supine position. Following administration of general anesthesia, pneumatic thigh tourniquet was placed on the left lower extremity. The left lower extremity was scrubbed, prepped, and draped in an aseptic manner. Proper timeout was performed. Left lower extremity was identified as surgical site. Next, an approximately 8 cm incision was made over the medial aspect of the foot. The incision was deepened down to the level of the bone with care being taken to avoid the deep neurovascular structures as well as to avoid the tibialis anterior tendon. The incision was taken full thickness down to the medial aspect of the bone and then dissected dorsally and plantarly to create a window from the medial lateral aspect of the foot to the lateral aspect of the foot and elevated large subcutaneous flap that contained all the deep neurovascular structures as well as tendons to the foot. It was noted the patient had a lateral dorsal dislocation of her Lisfranc joints at this time, thus requiring reduction. A rongeur was used to debride any bone that was inhibiting a reduction. Once aggressive reduction was achieved, a sagittal saw was used to debride the bones down to the level of good healthy healing cancellous bone at both the base of metatarsals one through five as well as all three cuneiforms and the cuboid. Once this was all debrided and an appropriate reduction was achieved, it was temporarily fixated with K-wires. Next, an incision was made over the dorsal aspect of the first metatarsal cuneiform joint. This incision was deepened down the level of the joint and the medial and lateral collateral ligaments were released. The joint was plantarflexed and disarticulated and a guide pin for a large bolt screw was placed from the distal aspect of the first metatarsal into the body of the talus. Fluoroscopic views were taken. There was adequate position of the guidepin and appropriate size screw was selected in place. There was excellent compression across the fusion site at this time. The same thing was then also done to the second metatarsal into the body of the talus. Next, the screw was then placed from the posterior aspect of the calcaneus down into the shaft of the fourth metatarsal and there was excellent compression across all fusion sites of the mid foot. The ankle was then held in a neutral position. Next, the wounds were flushed with copious amounts of sterile saline. Deep drain was placed and deep tissues were then reapproximated and closed with 3-0 Vicryl, subcutaneous tissues approximated with 3-0 Vicryl and the skin was reapproximated. The wound edges well everted using 3-0 nylon. Due to the poor quality of bone and the patient's age, it was deemed it was necessary for an application of an external fixator. The ankle was held in a neutral position and placed within a previously prepared external fixator ring with a foot block and as well as a block around the ankle and two blocks proximal to the ankle around the leg. The foot was first fixated with two percutaneously placed K-wires across the heel. These were tensioned and tightened into place. Next, the most proximal aspect of the ring was then fixated across the tibia with three K-wires, they were appropriately tensioned as well. Then, wounds at the mid level of the aspect closer to the ankle were also fixated with three more K-wires that were tensioned and then lastly the forefoot was tensioned, this was fixated with two wires that were tensioned across the spanning the external fixator. There was excellent application of the external fixator. Care was taken to maintain and avoid all neurovascular bundles. After the procedure, the pneumatic thigh tourniquet was deflated, pulses were felt to the dorsalis pedis and posterior tibial pulses, and then the wounds were then dressed and pin sites were dressed with Xeroform, 4 x 4's, cast padding and Cj wraps. The patient was transferred from OR to recovery with vital signs stable and neurovascular status intact to the left lower extremity. Job ID: [id number] DocumentID: [id number] Dictated Date: 11/16/2017 21:43:[address] Date: 11/17/2017 01:20:09 Dictated By: AMOS ANNE DPM <Dictated by AMOS ANNE DPM> <Electronically signed by AMOS ANNE DPM> 11/19/17 1102
== END 2017-10-29 11:35 | disposition home health service (06) | DRG 981 ==
LOC: 4TH 12:50 → UNDOADMOB 12:50 → SDC 12:50 → 4TH 12:50 → EDSTATUS 10-24 08:00 → SDC 10-27 07:59 → 4TH 10-27 07:59 → SDC 10-27 08:00 → UNDOADMIN 10-27 08:00 → 4TH 10-27 08:00 → UNDODISIN 10-29 11:35
PROVIDERS: ADMIT Podiatrist; ATTEND Podiatrist
PROC: 0SGL04Z Fusion of Left Tarsometatarsal Joint with Internal Fixation Device, Open Approach (ICD-10-PCS; principal; 2017-10-29)
PROC: 0QH Lower Bones, Insertion (ICD-10-PCS; 2017-10-29)
DX: E11.618 Type 2 diabetes mellitus with other diabetic arthropathy (principal); J15.0 Pneumonia due to Klebsiella pneumoniae; N17.9 Acute kidney failure, unspecified; E87.1 Hypo-osmolality and hyponatremia; I25.118 Atherosclerotic heart disease of native coronary artery with other forms of angina pectoris; R07.9 Chest pain, unspecified; R19.7 Diarrhea, unspecified; I10 Essential (primary) hypertension; F03.90 Unspecified dementia, unspecified severity, without behavioral disturbance, psychotic disturbance, mood disturbance, and anxiety; K21.9 Gastro-esophageal reflux disease without esophagitis; K44.9 Diaphragmatic hernia without obstruction or gangrene; M19.91 Primary osteoarthritis, unspecified site; F41.9 Anxiety disorder, unspecified; F32.9 Major depressive disorder, single episode, unspecified; G47.33 Obstructive sleep apnea (adult) (pediatric); I12.9 Hypertensive chronic kidney disease with stage 1 through stage 4 chronic kidney disease, or unspecified chronic kidney disease; N18.3 Chronic kidney disease, stage 3 (moderate); E78.5 Hyperlipidemia, unspecified; D63.8 Anemia in other chronic diseases classified elsewhere; D69.6 Thrombocytopenia, unspecified; R91.1 Solitary pulmonary nodule; K59.00 Constipation, unspecified; R53.1 Weakness; R29.6 Repeated falls; S06.5X9S Traumatic subdural hemorrhage with loss of consciousness of unspecified duration, sequela; T50.1X5A Adverse effect of loop [high-ceiling] diuretics, initial encounter; Z79.4 Long term (current) use of insulin; Z95.5 Presence of coronary angioplasty implant and graft; Z87.01 Personal history of pneumonia (recurrent)
CPT/HCPCS: 36415; 71045; 71046; 73700; 76937; 78452; 80048; 80053; 80061; 81000; 82962; 83735; 83880; 84484; 85025; 87070; 87081; 87088; 87186; 87205; 87324; 87449; 93005; 93017; 94640; 94664; 94760; G0378

== ENCOUNTER 2017-11-10 13:36 | Outpatient (RCR) | payer MEDICARE, MEDICAID ==
[2017-09-02 10:23] LABS: BASOPHILS % (AUTO) 0 % (0-10); EOSINOPHILS # (AUTO) 0.4 10^3/uL (0.0-0.3); EOSINOPHILS % (AUTO) 2 % (0-10); HEMATOCRIT 28 % (35-52); HEMOGLOBIN 9.1 G/DL (11.5-16.0); LYMPHOCYTES # (AUTO) 2.7 X 10^3 (1.0-4.0); LYMPHOCYTES % (AUTO) 17 % (12-44); MEAN CORPUSCULAR HEMOGLOBIN 27 PG (25-34); MEAN CORPUSCULAR HGB CONC 32 G/DL (32-36); MEAN CORPUSCULAR VOLUME 83 FL (80-99); MEAN PLATELET VOLUME 9.4 FL (7.4-10.4); MONOCYTES # (AUTO) 1.2 X 10^3 (0.0-1.0); MONOCYTES % (AUTO) 7 % (0-12); NEUTROPHILS # (AUTO) 11.5 X 10^3 (1.8-7.8); NEUTROPHILS % (AUTO) 73 % (42-75); PLATELET COUNT 161 10^3/uL (130-400); RED BLOOD COUNT 3.37 10^6/uL (4.35-5.85); RED CELL DISTRIBUTION WIDTH 14.9 % (10.0-14.5); WHITE BLOOD COUNT 15.7 10^3/uL (4.3-11.0)
[2017-09-02 10:41] LABS: CALCIUM 10.7 MG/DL (8.5-10.1); CREATININE SERUM 2.39 MG/DL (0.60-1.30); POTASSIUM 5.6 MMOL/L (3.6-5.0); TOTAL PROTEIN 7.5 GM/DL (6.4-8.2)
[2017-09-16 09:44] LABS: BASOPHILS # (AUTO) 0.1 10^3/uL (0.0-0.1); BASOPHILS % (AUTO) 1 % (0-10); EOSINOPHILS # (AUTO) 0.3 10^3/uL (0.0-0.3); EOSINOPHILS % (AUTO) 4 % (0-10); HEMATOCRIT 31 % (35-52); HEMOGLOBIN 9.8 G/DL (11.5-16.0); LYMPHOCYTES # (AUTO) 2.5 X 10^3 (1.0-4.0); LYMPHOCYTES % (AUTO) 31 % (12-44); MEAN CORPUSCULAR HEMOGLOBIN 27 PG (25-34); MEAN CORPUSCULAR HGB CONC 32 G/DL (32-36); MEAN CORPUSCULAR VOLUME 84 FL (80-99); MEAN PLATELET VOLUME 9.5 FL (7.4-10.4); MONOCYTES # (AUTO) 0.6 X 10^3 (0.0-1.0); MONOCYTES % (AUTO) 7 % (0-12); NEUTROPHILS # (AUTO) 4.6 X 10^3 (1.8-7.8); NEUTROPHILS % (AUTO) 58 % (42-75); PLATELET COUNT 222 10^3/uL (130-400); RED BLOOD COUNT 3.69 10^6/uL (4.35-5.85); RED CELL DISTRIBUTION WIDTH 15.6 % (10.0-14.5)
[2017-09-30 12:39] LABS: BASOPHILS # (AUTO) 0.1 10^3/uL (0.0-0.1); BASOPHILS % (AUTO) 1 % (0-10); EOSINOPHILS # (AUTO) 0.5 10^3/uL (0.0-0.3); EOSINOPHILS % (AUTO) 4 % (0-10); HEMATOCRIT 32 % (35-52); HEMOGLOBIN 10.2 G/DL (11.5-16.0); LYMPHOCYTES # (AUTO) 3.2 X 10^3 (1.0-4.0); LYMPHOCYTES % (AUTO) 29 % (12-44); MEAN CORPUSCULAR HEMOGLOBIN 27 PG (25-34); MEAN CORPUSCULAR HGB CONC 32 G/DL (32-36); MEAN CORPUSCULAR VOLUME 83 FL (80-99); MONOCYTES # (AUTO) 0.9 X 10^3 (0.0-1.0); MONOCYTES % (AUTO) 8 % (0-12); NEUTROPHILS # (AUTO) 6.4 X 10^3 (1.8-7.8); NEUTROPHILS % (AUTO) 58 % (42-75); PLATELET COUNT 155 10^3/uL (130-400); RED BLOOD COUNT 3.83 10^6/uL (4.35-5.85); RED CELL DISTRIBUTION WIDTH 16.4 % (10.0-14.5); WHITE BLOOD COUNT 11.1 10^3/uL (4.3-11.0)
[2017-10-14 15:14] LABS: BASOPHILS % (AUTO) 0 % (0-10); EOSINOPHILS # (AUTO) 0.2 10^3/uL (0.0-0.3); EOSINOPHILS % (AUTO) 3 % (0-10); HEMATOCRIT 33 % (35-52); HEMOGLOBIN 10.3 G/DL (11.5-16.0); LYMPHOCYTES # (AUTO) 2.9 X 10^3 (1.0-4.0); LYMPHOCYTES % (AUTO) 32 % (12-44); MEAN CORPUSCULAR HEMOGLOBIN 27 PG (25-34); MEAN CORPUSCULAR HGB CONC 31 G/DL (32-36); MEAN CORPUSCULAR VOLUME 86 FL (80-99); MEAN PLATELET VOLUME 10.7 FL (7.4-10.4); MONOCYTES # (AUTO) 0.4 X 10^3 (0.0-1.0); MONOCYTES % (AUTO) 5 % (0-12); NEUTROPHILS # (AUTO) 5.4 X 10^3 (1.8-7.8); NEUTROPHILS % (AUTO) 60 % (42-75); PLATELET COUNT 130 10^3/uL (130-400); RED BLOOD COUNT 3.84 10^6/uL (4.35-5.85); RED CELL DISTRIBUTION WIDTH 17.2 % (10.0-14.5)
[~2017-11-10 13:36] MED LIST changes: +AMLO10TA2 PO; +DARBEPOETIN 25 MCG/ML (CANCER CTR) 1 ML VIAL SC SCH; +OXYC-471 PO; +SERT50TA9 PO; +SULF1TAB34 PO
[2017-11-10 13:58] LABS: BASOPHILS % (AUTO) 0 % (0-10); EOSINOPHILS # (AUTO) 0.2 10^3/uL (0.0-0.3); EOSINOPHILS % (AUTO) 2 % (0-10); HEMATOCRIT 26 % (35-52); HEMOGLOBIN 8.2 G/DL (11.5-16.0); LYMPHOCYTES # (AUTO) 1.7 X 10^3 (1.0-4.0); LYMPHOCYTES % (AUTO) 17 % (12-44); MEAN CORPUSCULAR HEMOGLOBIN 26 PG (25-34); MEAN CORPUSCULAR HGB CONC 32 G/DL (32-36); MEAN CORPUSCULAR VOLUME 83 FL (80-99); MEAN PLATELET VOLUME 9.6 FL (7.4-10.4); MONOCYTES # (AUTO) 0.5 X 10^3 (0.0-1.0); MONOCYTES % (AUTO) 5 % (0-12); NEUTROPHILS # (AUTO) 7.6 X 10^3 (1.8-7.8); NEUTROPHILS % (AUTO) 75 % (42-75); PLATELET COUNT 132 10^3/uL (130-400); RED BLOOD COUNT 3.15 10^6/uL (4.35-5.85); RED CELL DISTRIBUTION WIDTH 18.2 % (10.0-14.5)
== END 2017-11-21 11:30 | disposition home or self-care (01) ==
LOC: ONC 13:36
PROVIDERS: ATTEND Internal Medicine Hematology & Oncology
DX: N18.4 Chronic kidney disease, stage 4 (severe) (principal); D63.1 Anemia in chronic kidney disease; E11.22 Type 2 diabetes mellitus with diabetic chronic kidney disease; I12.9 Hypertensive chronic kidney disease with stage 1 through stage 4 chronic kidney disease, or unspecified chronic kidney disease; D50.9 Iron deficiency anemia, unspecified; I25.10 Atherosclerotic heart disease of native coronary artery without angina pectoris; J44.9 Chronic obstructive pulmonary disease, unspecified; E03.9 Hypothyroidism, unspecified; R91.1 Solitary pulmonary nodule; E78.2 Mixed hyperlipidemia; G47.33 Obstructive sleep apnea (adult) (pediatric); I27.20 Pulmonary hypertension, unspecified; I73.9 Peripheral vascular disease, unspecified; M19.91 Primary osteoarthritis, unspecified site; Z79.82 Long term (current) use of aspirin; Z79.4 Long term (current) use of insulin; Z79.899 Other long term (current) drug therapy
CPT/HCPCS: 36415; 80053; 82728; 85025; 96372

== ENCOUNTER 2018-02-10 15:30 | Outpatient (RCR) | payer MEDICARE, MEDICAID ==
[2017-11-25 14:36] LABS: BASOPHILS % (AUTO) 1 % (0-10); EOSINOPHILS # (AUTO) 0.3 10^3/uL (0.0-0.3); EOSINOPHILS % (AUTO) 4 % (0-10); HEMATOCRIT 29 % (35-52); HEMOGLOBIN 8.7 G/DL (11.5-16.0); LYMPHOCYTES # (AUTO) 1.9 X 10^3 (1.0-4.0); LYMPHOCYTES % (AUTO) 27 % (12-44); MEAN CORPUSCULAR HEMOGLOBIN 25 PG (25-34); MEAN CORPUSCULAR HGB CONC 30 G/DL (32-36); MEAN CORPUSCULAR VOLUME 84 FL (80-99); MEAN PLATELET VOLUME 10.3 FL (7.4-10.4); MONOCYTES # (AUTO) 0.4 X 10^3 (0.0-1.0); MONOCYTES % (AUTO) 6 % (0-12); NEUTROPHILS # (AUTO) 4.5 X 10^3 (1.8-7.8); NEUTROPHILS % (AUTO) 63 % (42-75); PLATELET COUNT 162 10^3/uL (130-400); RED BLOOD COUNT 3.42 10^6/uL (4.35-5.85); RED CELL DISTRIBUTION WIDTH 18.1 % (10.0-14.5); WHITE BLOOD COUNT 7.1 10^3/uL (4.3-11.0)
[2017-11-25 14:56] LABS: ALBUMIN 4.1 GM/DL (3.2-4.5); BILIRUBIN,TOTAL 0.5 MG/DL (0.1-1.0); CALCIUM 10.4 MG/DL (8.5-10.1); CREATININE SERUM 1.57 MG/DL (0.60-1.30); POTASSIUM 4.4 MMOL/L (3.6-5.0); TOTAL PROTEIN 7.1 GM/DL (6.4-8.2)
[2017-12-09 13:09] LABS: BASOPHILS % (AUTO) 0 % (0-10); EOSINOPHILS # (AUTO) 0.3 10^3/uL (0.0-0.3); EOSINOPHILS % (AUTO) 4 % (0-10); HEMATOCRIT 26 % (35-52); HEMOGLOBIN 8.4 G/DL (11.5-16.0); LYMPHOCYTES # (AUTO) 1.8 X 10^3 (1.0-4.0); LYMPHOCYTES % (AUTO) 22 % (12-44); MEAN CORPUSCULAR HEMOGLOBIN 26 PG (25-34); MEAN CORPUSCULAR HGB CONC 32 G/DL (32-36); MEAN CORPUSCULAR VOLUME 80 FL (80-99); MEAN PLATELET VOLUME 9.3 FL (7.4-10.4); MONOCYTES # (AUTO) 0.7 X 10^3 (0.0-1.0); MONOCYTES % (AUTO) 8 % (0-12); NEUTROPHILS # (AUTO) 5.3 X 10^3 (1.8-7.8); NEUTROPHILS % (AUTO) 65 % (42-75); PLATELET COUNT 147 10^3/uL (130-400); RED BLOOD COUNT 3.26 10^6/uL (4.35-5.85); RED CELL DISTRIBUTION WIDTH 17.7 % (10.0-14.5); WHITE BLOOD COUNT 8.2 10^3/uL (4.3-11.0)
[2017-12-23 10:38] LABS: BASOPHILS % (AUTO) 0 % (0-10); EOSINOPHILS # (AUTO) 0.2 10^3/uL (0.0-0.3); EOSINOPHILS % (AUTO) 3 % (0-10); HEMATOCRIT 24 % (35-52); HEMOGLOBIN 7.7 G/DL (11.5-16.0); LYMPHOCYTES % (AUTO) 27 % (12-44); MEAN CORPUSCULAR HEMOGLOBIN 26 PG (25-34); MEAN CORPUSCULAR HGB CONC 32 G/DL (32-36); MEAN CORPUSCULAR VOLUME 82 FL (80-99); MEAN PLATELET VOLUME 9.2 FL (7.4-10.4); MONOCYTES # (AUTO) 0.5 X 10^3 (0.0-1.0); MONOCYTES % (AUTO) 6 % (0-12); NEUTROPHILS # (AUTO) 4.6 X 10^3 (1.8-7.8); NEUTROPHILS % (AUTO) 63 % (42-75); PLATELET COUNT 140 10^3/uL (130-400); RED BLOOD COUNT 2.93 10^6/uL (4.35-5.85); RED CELL DISTRIBUTION WIDTH 17.3 % (10.0-14.5); WHITE BLOOD COUNT 7.2 10^3/uL (4.3-11.0)
[2018-01-06 15:39] LABS: BASOPHILS % (AUTO) 0 % (0-10); EOSINOPHILS # (AUTO) 0.3 10^3/uL (0.0-0.3); EOSINOPHILS % (AUTO) 3 % (0-10); HEMATOCRIT 30 % (35-52); HEMOGLOBIN 9.7 G/DL (11.5-16.0); LYMPHOCYTES % (AUTO) 20 % (12-44); MEAN CORPUSCULAR HEMOGLOBIN 28 PG (25-34); MEAN CORPUSCULAR HGB CONC 33 G/DL (32-36); MEAN CORPUSCULAR VOLUME 85 FL (80-99); MEAN PLATELET VOLUME 9.5 FL (7.4-10.4); MONOCYTES # (AUTO) 0.7 X 10^3 (0.0-1.0); MONOCYTES % (AUTO) 7 % (0-12); NEUTROPHILS # (AUTO) 7.1 X 10^3 (1.8-7.8); NEUTROPHILS % (AUTO) 70 % (42-75); PLATELET COUNT 142 10^3/uL (130-400); RED BLOOD COUNT 3.52 10^6/uL (4.35-5.85); WHITE BLOOD COUNT 10.2 10^3/uL (4.3-11.0)
[2018-01-20 14:02] LABS: BASOPHILS % (AUTO) 0 % (0-10); EOSINOPHILS # (AUTO) 0.2 10^3/uL (0.0-0.3); EOSINOPHILS % (AUTO) 2 % (0-10); HEMATOCRIT 27 % (35-52); HEMOGLOBIN 8.8 G/DL (11.5-16.0); LYMPHOCYTES # (AUTO) 2.1 X 10^3 (1.0-4.0); LYMPHOCYTES % (AUTO) 22 % (12-44); MEAN CORPUSCULAR HEMOGLOBIN 28 PG (25-34); MEAN CORPUSCULAR HGB CONC 33 G/DL (32-36); MEAN CORPUSCULAR VOLUME 85 FL (80-99); MEAN PLATELET VOLUME 9.3 FL (7.4-10.4); MONOCYTES # (AUTO) 0.6 X 10^3 (0.0-1.0); MONOCYTES % (AUTO) 7 % (0-12); NEUTROPHILS # (AUTO) 6.6 X 10^3 (1.8-7.8); NEUTROPHILS % (AUTO) 69 % (42-75); PLATELET COUNT 142 10^3/uL (130-400); RED BLOOD COUNT 3.14 10^6/uL (4.35-5.85); RED CELL DISTRIBUTION WIDTH 19.3 % (10.0-14.5); WHITE BLOOD COUNT 9.5 10^3/uL (4.3-11.0)
[2018-01-20 14:20] LABS: BILIRUBIN,TOTAL 0.6 MG/DL (0.1-1.0); CALCIUM 9.8 MG/DL (8.5-10.1); CREATININE SERUM 1.4 MG/DL (0.60-1.30); POTASSIUM 3.9 MMOL/L (3.6-5.0); TOTAL PROTEIN 6.7 GM/DL (6.4-8.2)
[2018-02-10 13:56] LABS: BASOPHILS % (AUTO) 0 % (0-10); EOSINOPHILS # (AUTO) 0.3 10^3/uL (0.0-0.3); EOSINOPHILS % (AUTO) 4 % (0-10); HEMATOCRIT 28 % (35-52); LYMPHOCYTES # (AUTO) 1.8 X 10^3 (1.0-4.0); LYMPHOCYTES % (AUTO) 19 % (12-44); MEAN CORPUSCULAR HEMOGLOBIN 27 PG (25-34); MEAN CORPUSCULAR HGB CONC 32 G/DL (32-36); MEAN CORPUSCULAR VOLUME 84 FL (80-99); MEAN PLATELET VOLUME 9.3 FL (7.4-10.4); MONOCYTES # (AUTO) 0.7 X 10^3 (0.0-1.0); MONOCYTES % (AUTO) 8 % (0-12); NEUTROPHILS # (AUTO) 6.5 X 10^3 (1.8-7.8); NEUTROPHILS % (AUTO) 70 % (42-75); PLATELET COUNT 138 10^3/uL (130-400); RED BLOOD COUNT 3.33 10^6/uL (4.35-5.85); RED CELL DISTRIBUTION WIDTH 19.3 % (10.0-14.5); WHITE BLOOD COUNT 9.4 10^3/uL (4.3-11.0)
[~2018-02-10 15:30] MED LIST changes: +DARBEPOETIN 10 MCG/0.4 ML ARANESP IJ SCH; +DARBEPOETIN 40 MCG/ML (ARANESP) 1 ML VIAL SC SCH; +FERRIC CARBOXYMALTOSE (CANCER) 750 MG in NS (IVPB) CANCER CENTER 250 ML IV SCH; +NS IV 500 ML (CANCER CENTER) 500 ML ONE; +TRAZ-190 PO; -TRAZ100T92 PO
== END 2018-02-23 | disposition home or self-care (01) ==
LOC: ONC 15:30
PROVIDERS: ATTEND Internal Medicine Hematology & Oncology
DX: N18.4 Chronic kidney disease, stage 4 (severe) (principal); D63.1 Anemia in chronic kidney disease; E11.22 Type 2 diabetes mellitus with diabetic chronic kidney disease; I12.9 Hypertensive chronic kidney disease with stage 1 through stage 4 chronic kidney disease, or unspecified chronic kidney disease; D50.9 Iron deficiency anemia, unspecified; I25.10 Atherosclerotic heart disease of native coronary artery without angina pectoris; J44.9 Chronic obstructive pulmonary disease, unspecified; E03.9 Hypothyroidism, unspecified; R91.1 Solitary pulmonary nodule; E78.2 Mixed hyperlipidemia; G47.33 Obstructive sleep apnea (adult) (pediatric); I27.20 Pulmonary hypertension, unspecified; I73.9 Peripheral vascular disease, unspecified; M19.91 Primary osteoarthritis, unspecified site; Z79.82 Long term (current) use of aspirin; Z79.4 Long term (current) use of insulin; Z79.899 Other long term (current) drug therapy
CPT/HCPCS: 36415; 36430; 80053; 82728; 83090; 83921; 85025; 86850; 86900; 86901; 86920; 96365; 96372

== ENCOUNTER 2018-02-25 19:30 | Emergency (ER) | payer MEDICARE, MEDICAID ==
[~2018-02-25] VITALS: Ht 167.6 cm; Wt 84.8 kg
[~2018-02-25 19:30] MED LIST changes: -DARBEPOETIN 10 MCG/0.4 ML ARANESP IJ SCH; -DARBEPOETIN 25 MCG/ML (CANCER CTR) 1 ML VIAL SC SCH; -DARBEPOETIN 40 MCG/ML (ARANESP) 1 ML VIAL SC SCH; -FERRIC CARBOXYMALTOSE (CANCER) 750 MG in NS (IVPB) CANCER CENTER 250 ML IV SCH; -NS IV 500 ML (CANCER CENTER) 500 ML ONE
[2018-02-25 19:54] LABS: BILIRUBIN,URINE NEGATIVE (NEGATIVE); CLARITY,URINE VERY CLOUDY; COLOR,URINE YELLOW; GLUCOSE, URINE (UA) NEGATIVE (NEGATIVE); KETONES,URINE NEGATIVE (NEGATIVE); LEUKOCYTE ESTERASE ,URINE 3+ (NEGATIVE); NITRITE,URINE NEGATIVE (NEGATIVE); PH,URINE 5 (5-9); PROTEIN,URINE 3+ (NEGATIVE); UROBILINOGEN,URINE NORMAL (NORMAL)
[2018-02-25] MEDS ORDERED: ACETAMINOPHEN 325 MG TABLET PO STA (19:55)
[2018-02-25 20:14] LABS: BACTERIA,URINE LARGE /HPF; WBC,URINE TNTC /HPF
[2018-02-25] MEDS ORDERED: CIPROFLOXACIN 500 MG (CIPRO) TABLET PO STA (20:22)
--- NOTE | 2018-02-25 20:36 | ED GI ---
General Chief Complaint: Trauma-Non Activation Stated Complaint: POSS UTI, FALL, SHAKES Nursing Triage Note: PATIENT HERE WITH FAMILY AFTER SEVERAL FALLS IN THE LAST 24 HOURS. PATIENT DID HIT HEAD BUT NEVER LOC. FAMILY BELIEVES SHE HAS A UTI SHE HAS BEEN SHAKEY AND BLUNT LIKE SHE PREVIOUSLY HAS BEEN WITH UTIS. PATIENT NOTES THAT HER URINE IS QUITE FOUL SMELLING. Sepsis Screen: No Definite Risk History of Present Illness Date Seen by Provider: Feb 25, 2018 Time Seen by Provider: 19:55 Initial Comments 83-year-old female presents for possible UTI. Her daughters report that she has been mildly confused which they usually notice prior to her being diagnosed with UTI. She denies any fevers, chills, urinary frequency or burning. She is taking her home medications as prescribed. She is wearing a boot on her left lower extremity for foot surgery, her daughters do reports she' s had occasional falls in the last few days none causing head injury or loss of consciousness. Timing/Duration: 12-24 Hours Severity/Quality: Mild Location: Suprapubic Radiation: No Radiation Associated Symptoms: Denies Symptoms Allergies and Home Medications Allergies Coded Allergies: Penicillins (Verified Allergy, Unknown, Pt has received Ceftriaxone in the past, 10/22/17) influenza virus vaccine, specific (Verified Adverse Reaction, Unknown, Not allergic just won't take Flu vaccine, 10/22/17) Home Medications Acetaminophen 500 Mg Tablet, 500 MG PO Q6HR PRN for PAIN-MILD Prescribed by: LINDA MCKEON on 09/09/172003 Albuterol Sulfate 18 Gm Hfa.aer.ad, 2 PUFF INH Q4H PRN for SHORTNESS OF BREATH, (Reported) Amlodipine Besylate 10 Mg Tablet, 10 MG PO DAILY, (Reported) LAST FILLED #15 09-10-17 Atorvastatin Calcium 40 Mg Tablet, 40 MG PO HS, (Reported) Cyclosporine 1 Each Droperette, 1 DROP OU BID, (Reported) Fish Oil/Dha/Epa 1 Each Capsule, 3,600 MG PO DAILY, (Reported) TAKES 3 (1200MG) CAPSULES Fluticasone Propionate 16 Gm [place].susp, 1 SPRAY NS DAILY, (Reported) Fluticasone/Salmeterol 1 Each Blst.w.dev, 1 PUFF IH BID, (Reported) Folic Acid 0.8 Mg Tablet, 0.8 MG PO DAILY, (Reported) Insulin Aspart 100 Unit/1 Ml Susp, 7 UNIT SQ BID, (Reported) WITH BREAKFAST AND EVENING MEAL Insulin Aspart 100 Unit/1 Ml Susp, 2 UNIT SQ 1200, (Reported) WITH LUNCH Insulin Determir 1,000 Units/10 Ml Soln, 40 UNITS SQ BID, (Reported) Levothyroxine Sodium 125 Mcg Tablet, 125 MCG PO DAILY, (Reported) Loratadine 10 Mg Tablet, 10 MG PO DAILY, (Reported) Meclizine HCl 25 Mg Tablet, 25 MG PO DAILY, (Reported) Metoprolol Succinate 50 Mg Tab.er.24h, 25 MG PO BID, (Reported) TAKES 1/2 (50MG) TABLET Multivitamin 1 Each Tablet, 1 TAB PO DAILY, (Reported) Niacin 1,000 Mg Tab.er.24h, 1,000 MG PO HS, (Reported) Olmesartan Medoxomil 40 Mg Tablet, 40 MG PO DAILY, (Reported) Omeprazole 40 Mg Capsule.dr, 40 MG PO DAILY, (Reported) Oxycodone HCl/Acetaminophen 1 Each Tablet, 1-2 TAB PO Q6H PRN for PAIN-MODERATE Prescribed by: SUHA TAYLOR on 10/28/17 1230 Polyvinyl Alcohol/Povidone 15 Ml Drops, 1 DROP OU QID PRN for DRY EYES, ( Reported) Pregabalin 100 Mg Capsule, 100 MG PO 0800,1500,2100, (Reported) Sertraline HCl 50 Mg Tablet, 50 MG PO DAILY, (Reported) Solifenacin Succinate 5 Mg Tablet, 5 MG PO DAILY, (Reported) Sulfamethoxazole/Trimethoprim 1 Each Tablet, 1 EACH PO BID Prescribed by: SUHA TAYLOR on 10/29/17 0813 Tiotropium Annabella 1 Inh Aerp, 1 CAP IH HS, (Reported) Trazodone HCl 100 Mg Tablet, 100 MG PO HS, (Reported) Patient Home Medication List Home Medication List Reviewed: Yes Review of Systems Constitutional: no symptoms reported, see HPI Genitourinary: No Symptoms Reported, Frequency Past Sxuonks-Rccuxi-Ugelvj Hx Past Med/Social Hx: Reviewed Nursing Past Med/Soc Hx Patient Social History Alcohol Use: Denies Use Recreational Drug Use: No Smoking Status: Never a Smoker 2nd Hand Smoke Exposure: No Recent Foreign Travel: No Contact w/Someone Who Travel: No Recent Infectious Disease Expo: No Recent Hopitalizations: Yes ([id number]) Immunizations Up To Date Tetanus Booster (TDap): Unknown Date of Pneumonia Vaccine: Aug 28, 2012 Seasonal Allergies Seasonal Allergies: No Past Medical History Surgeries: Yes (SEVERAL) Appendectomy, Eye Surgery, Hysterectomy, Joint Replacement Respiratory: Yes Pneumonia, Chronic Bronchitis, Sleep Apnea, COPD Currently Using CPAP: Yes (with oxygen) Currently Using BIPAP: No Cardiac: Yes Coronary Artery Disease, Hypertension Neurological: No Dementia 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 Disorders: No Female 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 Disorders: Denies Sexually Transmitted Disease: No HIV/AIDS: No Genitourinary: Yes Bladder Infection, Renal Failure, UTI-Chronic Gastrointestinal: Yes Gastroesophageal Reflux, Polyps, Hiatal Hernia Musculoskeletal: No Arthritis Endocrine: Yes (THYROID DISEASE) Diabetes, Insulin dep Cataract Loss of Vision: Denies Hearing Impairment: Denies Cancer: No Psychosocial: Yes Anxiety, Depression Integumentary: No Blood Disorders: Yes (ANEMIA) Adverse Reaction/Blood Tranf: No Family Medical History Arthritis Cardiovascular disease Diabetes mellitus Hypertension No Pertinent Family Hx, Diabetes Physical Exam Vital Signs Vital Signs - First Documented 02/25/18 19:40 Temp 100.1 Pulse 89 Resp 20 B/P (MAP) 151/63 (92) Pulse Ox 95 O2 Delivery Room Air Capillary Refill : Less Than 3 Seconds Height/Weight/BMI Height: 5'6.00" Weight: 187lbs. 0oz. 84.429653sj; 26.7 BMI Method:Stated General Appearance: WD/WN, no apparent distress HEENT: PERRL/EOMI, normal ENT inspection, TMs normal, pharynx normal Neck: non-tender, full range of motion, supple, normal inspection Respiratory: chest non-tender, lungs clear, normal breath sounds Cardiovascular: normal peripheral pulses, regular rate, rhythm Gastrointestinal: normal bowel sounds, non tender, soft Back: normal inspection, no CVA tenderness Neurologic/Psychiatric: no motor/sensory deficits, alert, normal mood/affect, oriented x 3 Skin: normal color, warm/dry Progress/Results/Core Measures Results/Orders Lab Results Laboratory Tests Test 02/25/18 19:45 Range/Units Urine Color YELLOW Urine Clarity VERY CLOUDY H Urine pH 5 5-9 Urine Specific [place] 1.010 L 1.016-1.022 Urine Protein 3+ H NEGATIVE Urine Glucose (UA) NEGATIVE NEGATIVE Urine Ketones NEGATIVE NEGATIVE Urine Nitrite NEGATIVE NEGATIVE Urine Bilirubin NEGATIVE NEGATIVE Urine Urobilinogen NORMAL NORMAL MG/DL Urine Leukocyte Esterase 3+ H NEGATIVE Urine RBC (Auto) 3+ H NEGATIVE Urine RBC 2-5 H /HPF Urine WBC TNTC H /HPF Urine Crystals NONE /LPF Urine Bacteria LARGE H /HPF Urine Casts NONE /LPF Urine Mucus NEGATIVE /LPF Urine Culture Indicated YES My Orders Orders - ADDISON HURT Ua Culture If Indicated (02/25/18 19:31) Acetaminophen Tablet/Caplet (Tylenol T (02/25/18 19:55) Urine Culture (02/25/18 19:45) Ciprofloxacin Tablet (Cipro Tablet) (02/25/18 20:22) Vital Signs/I&O 02/25/18 19:40 Temp 100.1 Pulse 89 Resp 20 B/P (MAP) 151/63 (92) Pulse Ox 95 O2 Delivery Room Air Blood Pressure Mean: 92 Progress Progress Note : Time: 19:55 Progress Note Initial evaluation completed, recommended UA and reevaluation. 2030 urine shows significant UTI, will start Cipro 500 mg now. 2044 discharge instructions and return precautions reviewed with the patient and her daughters. Departure Impression Primary Impression: Urinary tract infection Qualified Codes: N30.01 - Acute cystitis with hematuria Disposition: HOME, SELF-CARE Condition: Stable Departure-Patient Inst. Decision time for Depature: 20:45 Referrals: FELICITA CEDEÑO MD (PCP/Family) Primary Care Physician Patient Instructions: Urinary Tract Infection, Adult (DC) Add. Discharge Instructions: Increase her water intake, one 16 ounce bottle every 4 hours while awake. Empty her bladder every 2 hours, while awake. Take your antibiotic as prescribed. Follow-up with your primary care provider in 2-3 days if symptoms are not improving, sooner if symptoms worsen. You may take Tylenol 650 mg and ibuprofen 600 mg alternating every 4 hours for pain or fever. Return to emergency department for fever greater than 101 not relieved by Tylenol or ibuprofen, altered mental status, increased confusion, fall with head injury or loss of consciousness, or new problems. All discharge instructions reviewed with patient and/or family. Voiced understanding. Scripts Ciprofloxacin HCl (Cipro) 500 Mg Tablet 500 MG PO BID, #14 TAB 0 Refills Prov: ADDISON HURT 02/25/18 Copy Copies To 1: FELICITA CEDEÑO MD, AMY ARNP Feb 25, 2018 20:36
[2018-02-25] MEDS ORDERED: CIPR-225 PO (20:37)
[2018-02-25 20:42] VITALS: BP 151/63
== END 2018-02-25 20:38 | disposition home or self-care (01) ==
LOC: EDUNIT# 19:30 → ER 19:32
DX: N39.0 Urinary tract infection, site not specified (principal); G47.30 Sleep apnea, unspecified; J44.9 Chronic obstructive pulmonary disease, unspecified; I25.10 Atherosclerotic heart disease of native coronary artery without angina pectoris; I10 Essential (primary) hypertension; F03.90 Unspecified dementia, unspecified severity, without behavioral disturbance, psychotic disturbance, mood disturbance, and anxiety; K21.9 Gastro-esophageal reflux disease without esophagitis; E11.9 Type 2 diabetes mellitus without complications; F41.9 Anxiety disorder, unspecified; F32.9 Major depressive disorder, single episode, unspecified; D64.9 Anemia, unspecified; Z88.0 Allergy status to penicillin; Z88.7 Allergy status to serum and vaccine; Z87.19 Personal history of other diseases of the digestive system; Z82.49 Family history of ischemic heart disease and other diseases of the circulatory system; Z86.010 Personal history of colon polyps; Z79.51 Long term (current) use of inhaled steroids; Z87.448 Personal history of other diseases of urinary system; Z79.4 Long term (current) use of insulin; Z90.710 Acquired absence of both cervix and uterus; Z90.89 Acquired absence of other organs; Z87.01 Personal history of pneumonia (recurrent)
CPT/HCPCS: 81000; 87077; 87088; 87186; 99283

== ENCOUNTER → 2018-04-03 | Outpatient (CLI) | payer MEDICARE, MEDICAID ==
[~2018-04-03] MED LIST changes: +ACET-2267 PO; +ALBU0.63 IH; -AMLO10TA2 PO; +AMLO10TA6 PO; +AMLO5TAB7 PO; +ASPI-586 PO; +CEFU250T80 PO; +CIPR-225 PO; +INSU100I32 SQ; +METO-387 PO; +OLME20TA24 PO; +PRED10TA22 PO
== END ==
LOC: WOUNDCARE 08:45
PROVIDERS: ATTEND Surgery
DX: E11.621 Type 2 diabetes mellitus with foot ulcer (principal); L97.426 Non-pressure chronic ulcer of left heel and midfoot with bone involvement without evidence of necrosis; L97.422 Non-pressure chronic ulcer of left heel and midfoot with fat layer exposed; M14.672 Charcot's joint, left ankle and foot
CPT/HCPCS: 11042; 87070; 87075; 87077; 87186; 87205

== ENCOUNTER → 2018-04-10 | Outpatient (CLI) | payer MEDICARE, MEDICAID | LOC: WOUNDCARE 10:50 | PROVIDERS: ATTEND Surgery | DX: L97.422 Non-pressure chronic ulcer of left heel and midfoot with fat layer exposed (principal); L89.620 Pressure ulcer of left heel, unstageable; E11.621 Type 2 diabetes mellitus with foot ulcer; L97.426 Non-pressure chronic ulcer of left heel and midfoot with bone involvement without evidence of necrosis; M14.672 Charcot's joint, left ankle and foot; I70.244 Atherosclerosis of native arteries of left leg with ulceration of heel and midfoot | CPT/HCPCS: 11042 ==

== ENCOUNTER 2018-04-14 11:57 | Outpatient (RCR) | payer MEDICARE, MEDICAID ==
[2018-02-24 13:38] LABS: BASOPHILS # (AUTO) 0.1 10^3/uL (0.0-0.1); BASOPHILS % (AUTO) 0 % (0-10); EOSINOPHILS # (AUTO) 0.1 10^3/uL (0.0-0.3); EOSINOPHILS % (AUTO) 1 % (0-10); HEMATOCRIT 27 % (35-52); HEMOGLOBIN 8.6 G/DL (11.5-16.0); LYMPHOCYTES # (AUTO) 1.9 X 10^3 (1.0-4.0); LYMPHOCYTES % (AUTO) 14 % (12-44); MEAN CORPUSCULAR HEMOGLOBIN 27 PG (25-34); MEAN CORPUSCULAR HGB CONC 32 G/DL (32-36); MEAN CORPUSCULAR VOLUME 85 FL (80-99); MEAN PLATELET VOLUME 9.6 FL (7.4-10.4); MONOCYTES # (AUTO) 0.8 X 10^3 (0.0-1.0); MONOCYTES % (AUTO) 6 % (0-12); NEUTROPHILS # (AUTO) 10.9 X 10^3 (1.8-7.8); NEUTROPHILS % (AUTO) 79 % (42-75); PLATELET COUNT 176 10^3/uL (130-400); RED BLOOD COUNT 3.22 10^6/uL (4.35-5.85); RED CELL DISTRIBUTION WIDTH 18.7 % (10.0-14.5); WHITE BLOOD COUNT 13.8 10^3/uL (4.3-11.0)
[2018-02-24 14:47] LABS: RED BLOOD COUNT 3.24 10^6/uL (4.35-5.85); RETICULOCYTE % 1.22 % (0.50-2.40)
[2018-02-24 15:01] LABS: BILIRUBIN,TOTAL 0.7 MG/DL (0.1-1.0); CALCIUM 9.3 MG/DL (8.5-10.1); CREATININE SERUM 1.97 MG/DL (0.60-1.30); POTASSIUM 4.6 MMOL/L (3.6-5.0); TOTAL PROTEIN 6.7 GM/DL (6.4-8.2)
[2018-03-17 11:10] LABS: BASOPHILS % (AUTO) 1 % (0-10); EOSINOPHILS # (AUTO) 0.3 10^3/uL (0.0-0.3); EOSINOPHILS % (AUTO) 3 % (0-10); HEMATOCRIT 27 % (35-52); HEMOGLOBIN 8.4 G/DL (11.5-16.0); LYMPHOCYTES % (AUTO) 24 % (12-44); MEAN CORPUSCULAR HEMOGLOBIN 27 PG (25-34); MEAN CORPUSCULAR HGB CONC 32 G/DL (32-36); MEAN CORPUSCULAR VOLUME 85 FL (80-99); MEAN PLATELET VOLUME 9.1 FL (7.4-10.4); MONOCYTES # (AUTO) 0.9 X 10^3 (0.0-1.0); MONOCYTES % (AUTO) 11 % (0-12); NEUTROPHILS # (AUTO) 5.3 X 10^3 (1.8-7.8); NEUTROPHILS % (AUTO) 62 % (42-75); PLATELET COUNT 116 10^3/uL (130-400); RED BLOOD COUNT 3.12 10^6/uL (4.35-5.85); RED CELL DISTRIBUTION WIDTH 19.9 % (10.0-14.5); WHITE BLOOD COUNT 8.5 10^3/uL (4.3-11.0)
[2018-03-17 11:30] LABS: ALBUMIN 3.8 GM/DL (3.2-4.5); BILIRUBIN,TOTAL 0.9 MG/DL (0.1-1.0); CALCIUM 9.6 MG/DL (8.5-10.1); CREATININE SERUM 1.42 MG/DL (0.60-1.30); POTASSIUM 4.4 MMOL/L (3.6-5.0); TOTAL PROTEIN 6.4 GM/DL (6.4-8.2)
[2018-03-31 11:22] LABS: BASOPHILS % (AUTO) 0 % (0-10); EOSINOPHILS % (AUTO) 0 % (0-10); HEMATOCRIT 28 % (35-52); HEMOGLOBIN 8.8 G/DL (11.5-16.0); LYMPHOCYTES # (AUTO) 1.8 X 10^3 (1.0-4.0); LYMPHOCYTES % (AUTO) 11 % (12-44); MEAN CORPUSCULAR HEMOGLOBIN 26 PG (25-34); MEAN CORPUSCULAR HGB CONC 32 G/DL (32-36); MEAN CORPUSCULAR VOLUME 83 FL (80-99); MEAN PLATELET VOLUME 9.1 FL (7.4-10.4); MONOCYTES # (AUTO) 0.7 X 10^3 (0.0-1.0); MONOCYTES % (AUTO) 4 % (0-12); NEUTROPHILS # (AUTO) 14.3 X 10^3 (1.8-7.8); NEUTROPHILS % (AUTO) 85 % (42-75); PLATELET COUNT 283 10^3/uL (130-400); RED BLOOD COUNT 3.33 10^6/uL (4.35-5.85); RED CELL DISTRIBUTION WIDTH 19.2 % (10.0-14.5); WHITE BLOOD COUNT 16.8 10^3/uL (4.3-11.0)
[~2018-04-14 11:57] MED LIST changes: -ALBU0.63 IH; -ASPI-586 PO; +DARBEPOETIN 40 MCG/ML (ARANESP) 1 ML VIAL SC SCH; -INSU100I32 SQ
[2018-04-14 12:12] LABS: BASOPHILS % (AUTO) 0 % (0-10); EOSINOPHILS # (AUTO) 0.3 10^3/uL (0.0-0.3); EOSINOPHILS % (AUTO) 4 % (0-10); HEMATOCRIT 22 % (35-52); HEMOGLOBIN 7.2 G/DL (11.5-16.0); LYMPHOCYTES % (AUTO) 25 % (12-44); MEAN CORPUSCULAR HEMOGLOBIN 27 PG (25-34); MEAN CORPUSCULAR HGB CONC 33 G/DL (32-36); MEAN CORPUSCULAR VOLUME 83 FL (80-99); MONOCYTES # (AUTO) 0.4 X 10^3 (0.0-1.0); MONOCYTES % (AUTO) 5 % (0-12); NEUTROPHILS # (AUTO) 5.1 X 10^3 (1.8-7.8); NEUTROPHILS % (AUTO) 66 % (42-75); PLATELET COUNT 164 10^3/uL (130-400); RED BLOOD COUNT 2.64 10^6/uL (4.35-5.85); RED CELL DISTRIBUTION WIDTH 18.4 % (10.0-14.5); WHITE BLOOD COUNT 7.7 10^3/uL (4.3-11.0)
[2018-04-14] MEDS ORDERED: DARBEPOETIN 40 MCG/ML (ARANESP) 1 ML VIAL SC SCH (12:45)
[2018-04-24] MEDS ORDERED: ASPI-586 PO (10:17)
[2018-04-24] MEDS ORDERED: TRAM50TA2 PO (10:17)
[2018-04-24] MEDS ORDERED: FOLI1TAB24 PO (10:19)
[2018-04-24] MEDS ORDERED: ALBU0.63 IH (10:20)
[2018-04-24] MEDS ORDERED: INSU100V16 SQ ×3 (10:22)
[2018-04-24] MEDS ORDERED: INSU100I32 SQ (10:23)
[2018-04-24] MEDS ORDERED: MECL-106 PO (10:24)
== END 2018-04-28 11:02 | disposition home or self-care (01) ==
LOC: ONC 11:57
PROVIDERS: ATTEND Internal Medicine Hematology & Oncology
DX: N18.4 Chronic kidney disease, stage 4 (severe) (principal); D63.1 Anemia in chronic kidney disease; E11.22 Type 2 diabetes mellitus with diabetic chronic kidney disease; I12.9 Hypertensive chronic kidney disease with stage 1 through stage 4 chronic kidney disease, or unspecified chronic kidney disease; D50.9 Iron deficiency anemia, unspecified; I25.10 Atherosclerotic heart disease of native coronary artery without angina pectoris; J44.9 Chronic obstructive pulmonary disease, unspecified; E03.9 Hypothyroidism, unspecified; R91.1 Solitary pulmonary nodule; E78.2 Mixed hyperlipidemia; G47.33 Obstructive sleep apnea (adult) (pediatric); I27.20 Pulmonary hypertension, unspecified; I73.9 Peripheral vascular disease, unspecified; M19.91 Primary osteoarthritis, unspecified site; Z79.82 Long term (current) use of aspirin; Z79.4 Long term (current) use of insulin; Z79.899 Other long term (current) drug therapy
CPT/HCPCS: 36415; 80053; 82728; 85025; 85045; 96372

== ENCOUNTER → 2018-04-17 | Outpatient (CLI) | payer MEDICARE, MEDICAID ==
[~2018-04-17] MED LIST changes: +ALBU0.63 IH; +ASPI-586 PO; -DARBEPOETIN 40 MCG/ML (ARANESP) 1 ML VIAL SC SCH; +INSU100I32 SQ
== END ==
LOC: WOUNDCARE 10:20
PROVIDERS: ATTEND Surgery
DX: E11.621 Type 2 diabetes mellitus with foot ulcer (principal); L89.620 Pressure ulcer of left heel, unstageable; L97.422 Non-pressure chronic ulcer of left heel and midfoot with fat layer exposed; L97.222 Non-pressure chronic ulcer of left calf with fat layer exposed; M14.672 Charcot's joint, left ankle and foot; I70.244 Atherosclerosis of native arteries of left leg with ulceration of heel and midfoot; E11.622 Type 2 diabetes mellitus with other skin ulcer
CPT/HCPCS: 99213

== ENCOUNTER → 2018-04-21 | Outpatient (CLI) | payer MEDICARE, MEDICAID | LOC: CARD 12:45 | PROVIDERS: ATTEND Internal Medicine Cardiovascular Disease | DX: I25.10 Atherosclerotic heart disease of native coronary artery without angina pectoris (principal); J44.9 Chronic obstructive pulmonary disease, unspecified; I65.29 Occlusion and stenosis of unspecified carotid artery; I10 Essential (primary) hypertension; E78.2 Mixed hyperlipidemia | CPT/HCPCS: 93306 ==

== ENCOUNTER → 2018-04-22 | Outpatient (CLI) | payer MEDICARE, MEDICAID | LOC: WOUNDCARE 10:19 | PROVIDERS: ATTEND Surgery | DX: L89.620 Pressure ulcer of left heel, unstageable (principal); E11.621 Type 2 diabetes mellitus with foot ulcer; I70.244 Atherosclerosis of native arteries of left leg with ulceration of heel and midfoot; L97.422 Non-pressure chronic ulcer of left heel and midfoot with fat layer exposed; E11.622 Type 2 diabetes mellitus with other skin ulcer; L97.222 Non-pressure chronic ulcer of left calf with fat layer exposed; M14.672 Charcot's joint, left ankle and foot | CPT/HCPCS: 99214 ==

== ENCOUNTER 2018-04-24 07:31 | Inpatient (IN) | payer MEDICARE, MEDICAID ==
[~2018-04-24] VITALS: Ht 170.2 cm; Wt 81.2 kg
[2018-04-24] VITALS (11 sets, daily range): BP systolic 128–150; BP diastolic 59–65
[~2018-04-24 07:31] MED LIST changes: -ALBU0.63 IH; -ASPI-586 PO; -INSU100I32 SQ
[2018-04-24] MEDS ORDERED: NS IV 1000 ML 1,000 ML ONE (07:43)
[2018-04-24] MEDS ORDERED: LIDOCAINE 1% INJ 20 ML 20 ML VIAL ONE (07:43)
[2018-04-24] MEDS ORDERED: HEParin (CATH LAB) 1,000 ML IV ONE (07:43)
[2018-04-24] MEDS ORDERED: NS IV 1000 ML 1,000 ML IV SCH (07:52)
--- NOTE | 2018-04-24 08:36 | Diagnostic Imaging Report ---
Portable erect AP chest at 819 hours. INDICATION: Preop cardiac catheter. FINDINGS: There is shallow inspiration when compared to the prior exam of 03/25/2018. Allowing for this technical factor, the heart size is stable and the lungs remain generally clear. There is no evidence for overt failure or pneumonia and there is no significant pleural effusion identified. The superior mediastinum on the right is somewhat prominent but no different than on the prior exam. The mediastinum itself is not widened. Surgical clips are again seen overlying the left neck. The osseous structures are intact. IMPRESSION: Allowing for shallow degree of inspiration, there has been no significant change since the prior exam. There is no acute abnormality identified. Dictated by: Dictated on workstation # [id number]
[2018-04-24 09:34] LABS: HEMOGLOBIN 6.2 G/DL (11.5-16.0); MEAN PLATELET VOLUME 9.2 FL (7.4-10.4); RED BLOOD COUNT 2.35 10^6/uL (4.35-5.85); RED CELL DISTRIBUTION WIDTH 17.9 % (10.0-14.5); WHITE BLOOD COUNT 6.3 10^3/uL (4.3-11.0)
[2018-04-24 09:45] LABS: INR 1.3 (0.8-1.4); PROTHROMBIN TIME PATIENT 16.5 SEC (12.2-14.7)
[2018-04-24 09:52] LABS: ALBUMIN 3.3 GM/DL (3.2-4.5); BILIRUBIN,TOTAL 0.6 MG/DL (0.1-1.0); CALCIUM 9.7 MG/DL (8.5-10.1); CREATININE SERUM 1.5 MG/DL (0.60-1.30); POTASSIUM 4.3 MMOL/L (3.6-5.0); TOTAL PROTEIN 6.6 GM/DL (6.4-8.2)
[2018-04-24] MEDS ORDERED: TRAM50TA2 PO ×2 (10:17)
[2018-04-24] MEDS ORDERED: ASPI-586 PO ×2 (10:17)
[2018-04-24] MEDS ORDERED: FOLI1TAB24 PO ×2 (10:19)
[2018-04-24] MEDS ORDERED: ALBU0.63 IH ×2 (10:20)
[2018-04-24] MEDS ORDERED: INSU100V16 SQ ×6 (10:22)
[2018-04-24] MEDS ORDERED: INSU100I32 SQ ×2 (10:23)
[2018-04-24] MEDS ORDERED: MECL-106 PO ×2 (10:24)
[2018-04-24] MEDS ORDERED: FLUTICASONE NASAL SPRAY (FLONASE) 16 GM BTL NS PRN (11:15)
[2018-04-24] MEDS ORDERED: RT-ALBUTEROL SULF 2.5 MG/3 ML PRE-MIX VIAL INH PRN (11:15)
--- NOTE | 2018-04-24 11:22 | Consultation-Cardiology ---
HPI-Cardiology Cardiology Consultation Date of Consultation 04/24/18 Date of Admission Time Seen by Provider: 11:16 Indication: Peripheral arterial disease HPI 83 years old lady with history of coronary artery disease, had nonhealing foot ulcer, she was scheduled for peripheral angiogram after having an abnormal TRINITY. She was admitted to the catheter lab initially, her hemoglobin was noted to be 6.7, decided to postpone the procedure, I discussed the management plan with Dr. Magaña, planning to transfuse her and monitor her after the procedure for at least 24-48 hours. We will start aggressive hydration after placement of a central line. Patient has history of chronic anemia that has been followed by Dr. Chadwick. She denied any chest pain. No palpitation, has been compliant of generalized fatigue and loss of energy Home Medications & Allergies Allergies: Coded Allergies: Penicillins (Verified Allergy, Unknown, Pt has received Ceftriaxone in the past, 10/22/17) influenza virus vaccine, specific (Verified Adverse Reaction, Unknown, Not allergic just won't take Flu vaccine, 10/22/17) Home Medication List Reviewed: Yes SBB-Pnpzrb-Tnfbva Hx Patient Social History Marital Status: Smoking Status: Never a Smoker 2nd Hand Smoke Exposure: No Recent Foreign Travel: No Recent Infectious Disease Expo: No Recent Hopitalizations: Yes (SEP 2017) Immunizations Up To Date Tetanus Booster (TDap): Unknown Date of Pneumonia Vaccine: Aug 28, 2012 Past Medical History Past medical history as described below Family Medical History Significant Family History: No Pertinent Family Hx, Diabetes Family History: Arthritis Cardiovascular disease Diabetes mellitus Hypertension Review of Systems Constitutional: see HPI, malaise EENTM: see HPI, no symptoms reported Respiratory: see HPI; No cough; dyspnea on exertion; No hemoptysis, No orthopnea, No phlegm, No short of breath, No stridor, No wheezing, No other Cardiovascular: see HPI; No chest pain, No edema, No Hx of Intervention, No palpitations, No syncope; vascular heart diseas; No other Gastrointestinal: no symptoms reported, see HPI Genitourinary: no symptoms reported, see HPI Musculoskeletal: see HPI, joint pain, muscle stiffness Skin: see HPI, other (Nonhealing foot ulcer on the left) Psychiatric/Neurological: No Symptoms Reported, See HPI Reviewed Test Results Reviewed Test Results Lab Laboratory Tests Test 04/24/18 09:28 Range/Units White Blood Count 6.3 4.3-11.0 10^3/uL Red Blood Count 2.35 L 4.35-5.85 10^6/uL Hemoglobin 6.2 *L 11.5-16.0 G/DL Hematocrit 20 *L 35-52 % Mean Corpuscular Volume 83 80-99 FL Mean Corpuscular Hemoglobin 26 25-34 PG Mean Corpuscular Hemoglobin Concent 32 32-36 G/DL Red Cell Distribution Width 17.9 H 10.0-14.5 % Platelet Count 169 130-400 10^3/uL Mean Platelet Volume 9.2 7.4-10.4 FL Prothrombin Time 16.5 H 12.2-14.7 SEC INR Comment 1.3 0.8-1.4 Activated Partial Thromboplast Time 37 H 24-35 SEC Sodium Level 134 L 135-145 MMOL/L Potassium Level 4.3 3.6-5.0 MMOL/L Chloride Level 107 98-107 MMOL/L Carbon Dioxide Level 19 L 21-32 MMOL/L Anion Gap 8 5-14 MMOL/L Blood Urea Nitrogen 23 H 7-18 MG/DL Creatinine 1.50 H 0.60-1.30 MG/DL Estimat Glomerular Filtration Rate 33 BUN/Creatinine Ratio 15 Glucose Level 121 H 70-105 MG/DL Calcium Level 9.7 8.5-10.1 MG/DL Corrected Calcium 10.3 H 8.5-10.1 MG/DL Total Bilirubin 0.6 0.1-1.0 MG/DL Aspartate Amino Transf (AST/SGOT) 34 5-34 U/L Alanine Aminotransferase (ALT/SGPT) 36 0-55 U/L Alkaline Phosphatase 163 H 40-136 U/L Total Protein 6.6 6.4-8.2 GM/DL Albumin 3.3 3.2-4.5 GM/DL Triglycerides Level 59 <150 MG/DL Cholesterol Level 78 < 200 MG/DL LDL Cholesterol Direct 21 1-129 MG/DL VLDL Cholesterol 12 5-40 MG/DL HDL Cholesterol 36 L 40-60 MG/DL Physical Exam Vital Signs Vital Signs - First Documented 04/24/18 04/24/18 09:16 10:40 Temp 98.9 Pulse 74 Resp 18 B/P (MAP) 129/59 (82) Pulse Ox 98 O2 Delivery Room Air Capillary Refill : Height, Weight, BMI Height: 5'7.00" Weight: 179lbs. 0.0oz. 81.981641jm; 28.0 BMI Method:Stated General Appearance: No Apparent Distress, WD/WN Eyes: Bilateral Eye Normal Inspection, Bilateral Eye PERRL, Bilateral Eye EOMI HEENT: PERRL/EOMI, TMs Normal, Normal ENT Inspection, Pharynx Normal Neck: Full Range of Motion, Normal Inspection, Non Tender, Supple, Carotid Bruit Respiratory: Chest Non Tender, Lungs Clear, Normal Breath Sounds, No Accessory Muscle Use, No Respiratory Distress Cardiovascular: Regular Rate, Rhythm, No Edema, No Gallop, No JVD, Systolic Murmur Gastrointestinal: Normal Bowel Sounds, No Organomegaly, No Pulsatile Mass, Non Tender, Soft Back: Normal Inspection, No CVA Tenderness, No Vertebral Tenderness Extremity: Other (Left foot edema, 3 ulcers one on the lateral aspect of her calf, one on the medial aspect of her foot and the bottom of her foot, poor pulse) Neurologic/Psychiatric: Alert, Oriented x3, No Motor/Sensory Deficits, Normal Mood/Affect Skin: Normal Color, Warm/Dry Lymphatic: No Adenopathy A/P-Cardiology Admission Diagnosis Peripheral arterial disease Nonhealing foot ulcer Anemia Coronary artery disease Assessment/Plan Anemia, acute on chronic, history of anemia of chronic disease with intermittent GI loss, has been managed by Dr. Chadwick, patient will be admitted and transfused. Monitored. Peripheral arterial disease, nonhealing foot ulcer on the left side, abnormal TRINITY. Has worsening of the ulceration on the lateral aspect of her calf and the medial aspect of her foot and the bottom of her foot. TRINITY is 0.6 on the left. Planning to proceed with peripheral angiogram with limited contrast used if possible. 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 Coronary artery disease, history of PTCA and stent placement using 3.0 x 8 mm Taxus drug-eluting stent to the mid LAD, and Taxus 3.5 x 12 mm drug-eluting stent overlapping the mid LAD in February 2011, RCA had PTCA and stent placement using 3.0 x 24 mm Taxus drug-eluting stent. Most recent cardiac catheterization done in 2012 revealed patent stents. Stress test done in September 2017, showed no ischemia or infarction, echocardiogram showed diastolic dysfunction with normal systolic function, ejection fraction 60 percent, PA pressure 35 mmHg. continue to monitor Palpitations, reporting improvement. Continue on Toprol and monitor Hypertension, better control at this time. Continue to monitor blood pressure Orthostatic dizziness, no full syncope was reported. Continue to monitor blood pressure response Hyperlipidemia, continue to monitor lipids History of intracranial bleed in August 2017, spontaneous without trauma, last CT scan was done in February showing no signs of bleeding, she was hospitalized early in February for an episode of change in mental status and delirium that has improved at this time, she is back to baseline. Continue to monitor Carotid artery stenosis with history of left subclavian stent and carotid endarterectomy, monitored by heart and vascular care, scheduled for ultrasound later this month Pulmonary nodule, noted and followed with heart and vascular care as well as Dr. Caldera. COPD, obstructive sleep apnea. Started on C Pap machine, seen and followed by Dr. Caldera Ankle fracture, reconstructive surgery in September, still immobilized by apparatus installed by Dr. Luis, scheduled to remove it on January 15. Using a wheelchair at this time JULIETTE GOMEZ MD Apr 24, 2018 11:22
[2018-04-24] MEDS ORDERED: RT-ALBUTEROL SULF 2.5 MG/3 ML PRE-MIX VIAL IH PRN ×2 (11:45)
[2018-04-24] MEDS ORDERED: ACETAMINOPHEN 500 MG TAB (TYLENOL) PO PRN (11:45)
--- NOTE | 2018-04-24 12:41 | Consultation ---
History of Present Illness History of Present Illness Patient Consulted On(kelly/time) 04/24/18 12:41 Time Seen by Provider: 11:45 Reason for Visit: Peripheral arterial disease History of Present Illness Surgery asked to consult regarding anemia and Venous Insufficiency. Pt is sitting up in bed eating lunch; no real complaints. Nursing has made multiple unsuccesful attempts at IV access; she now needs central line. Dr. House has also asked about possible port for long-term IV access. Pt has a chronic anemia, chronic non- healing foot ulcer and CAD. Her Hemoglobin is 6 and she needs blood transfusion. Allergies and Home Medications Allergies Coded Allergies: Penicillins (Verified Allergy, Unknown, Pt has received Ceftriaxone in the past, 10/22/17) influenza virus vaccine, specific (Verified Adverse Reaction, Unknown, Not allergic just won't take Flu vaccine, 10/22/17) Home Medications Acetaminophen 500 Mg Tablet, 500 MG PO Q6H PRN for PAIN-MILD, (Reported) Albuterol Sulfate 18 Gm Hfa.aer.ad, 2 PUFF INH Q4H PRN for SHORTNESS OF BREATH, (Reported) Albuterol Sulfate 0.63 Mg/3 Ml Vial.neb, 0.63 MG IH Q6H PRN for SHORTNESS OF BREATH, (Reported) Aspirin 81 Mg Tablet.dr, 81 MG PO DAILY, (Reported) Atorvastatin Calcium 40 Mg Tablet, 40 MG PO HS, (Reported) Citalopram Hydrobromide 20 Mg Tablet, 20 MG PO HS, (Reported) Cyclosporine 1 Each Droperette, 1 DROP OU BID, (Reported) Fish Oil/Dha/Epa 1 Each Capsule, 3,600 MG PO DAILY, (Reported) TAKES 3 (1200MG) CAPSULES Fluticasone Propionate 16 Gm [place].susp, 1 SPRAY NS DAILY PRN for ALLERGIES, ( Reported) Fluticasone/Salmeterol 1 Each Blst.w.dev, 1 PUFF IH BID, (Reported) Folic Acid 1 Mg Tablet, 1 MG PO DAILY, (Reported) Furosemide 40 Mg Tablet, 40 MG PO DAILY, (Reported) Insulin Aspart 100 Unit/1 Ml Susp, 10 UNIT SQ morning, (Reported) Insulin Aspart 100 Unit/1 Ml Susp, 2 UNIT SQ Lunch, (Reported) Insulin Aspart 100 Unit/1 Ml Susp, 6 UNIT SQ Supper, (Reported) Insulin Degludec 100 Unit/1 Ml Insuln.pen, 35 UNIT SQ DAILY, (Reported) Levothyroxine Sodium 125 Mcg Tablet, 125 MCG PO DAILY, (Reported) Loratadine 10 Mg Tablet, 10 MG PO DAILY, (Reported) Meclizine HCl 25 Mg Tablet, 25 MG PO DAILY, (Reported) Metoprolol Succinate 25 Mg Tab.er.24h, 25 MG PO BID, (Reported) Multivitamin 1 Each Tablet, 1 TAB PO DAILY, (Reported) Niacin 1,000 Mg Tab.er.24h, 1,000 MG PO HS, (Reported) Olmesartan Medoxomil 20 Mg Tablet, 10 MG PO DAILY, (Reported) TAKES 1/2 (20MG) TABLET Omeprazole 40 Mg Capsule.dr, 40 MG PO DAILY, (Reported) Pregabalin 100 Mg Capsule, 100 MG PO 0800,1500,2100, (Reported) Sertraline HCl 50 Mg Tablet, 50 MG PO DAILY, (Reported) Solifenacin Succinate 5 Mg Tablet, 5 MG PO DAILY, (Reported) Tiotropium Stewart 1 Inh Aerp, 1 CAP IH HS, (Reported) Tramadol HCl 50 Mg Tablet, 50 MG PO Q8H, (Reported) Trazodone HCl 100 Mg Tablet, 100 MG PO HS, (Reported) Patient Home Medication List Home Medication List Reviewed: Yes Past Uujnclo-Xbkirx-Vnzaxt Hx Patient Social History Alcohol Use: Denies Use Recreational Drug Use: No Smoking Status: Never a Smoker 2nd Hand Smoke Exposure: No Recent Foreign Travel: No Contact w/Someone Who Travel: No Recent Infectious Disease Expo: No Recent Hopitalizations: Yes (SEP 2017) Physical Abuse Screen: No Sexual Abuse: No Immunizations Up To Date Tetanus Booster (TDap): Unknown Date of Pneumonia Vaccine: Aug 28, 2012 Seasonal Allergies Seasonal Allergies: No Surgeries History of Surgeries: Yes (SEVERAL) Surgeries: Appendectomy, Eye Surgery, Hysterectomy, Joint Replacement Respiratory History of Respiratory Disorde: Yes Respiratory Disorders: Sleep Apnea Cardiovascular History of Cardiac Disorders: Yes Cardiac Disorders: Coronary Artery Disease, Hypertension Neurological History of Neurological Disord: No Neurological Disorders: Dementia 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 System Hx 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 Disorders: No Sexually Transmitted Disease: No HIV/AIDS: No Female 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 Disorders: Denies Genitourinary History of Genitourinary Disor: Yes Genitourinary Disorders: Kidney Infection, Bladder Infection, Renal Failure, UTI-Chronic Gastrointestinal History of Gastrointestinal Di: No Gastrointestinal Disorders: Gastroesophageal Reflux, Polyps, Hiatal Hernia Musculoskeletal History of Musculoskeletal Dis: No Musculoskeletal Disorders: Arthritis Endocrine History of Endocrine Disorders: Yes (THYROID DISEASE) Endocrine Disorders: Diabetes, Insulin dep HEENT History of HEENT Disorders: Yes HEENT Disorders: Cataract Loss of Vision: Denies Hearing Impairment: Denies Cancer History of Cancer: No Psychosocial History of Psychiatric Problem: Yes Behavioral Health Disorders: Anxiety, Depression Integumentary History of Skin or Integumenta: No Skin/Integumentary Disorders: Recent Skin Changes Blood Transfusions History of Blood Disorders: Yes (ANEMIA) Adverse Reaction to a Blood Tr: No Family Medical History Significant Family History: Diabetes, Hypertension Family Medial History: Arthritis Cardiovascular disease Diabetes mellitus Hypertension Review of Systems-General Constitutional: No chills, No diaphoresis; weakness EENTM: No blurred vision, No mouth pain, No mouth swelling, No epistaxis Respiratory: No cough, No hemoptysis, No short of breath Cardiovascular: No chest pain; Hx of Intervention, vascular heart diseas Gastrointestinal: No abdominal pain, No diarrhea, No hematemesis Genitourinary: No dysuria, No frequency Musculoskeletal: joint pain, joint swelling, muscle stiffness Skin: lesions; No pruritus Psychiatric/Neurological: Denies Anxiety, Denies Depressed; Numbness, Paresthesia; Denies Tingling, Denies Tremors Physical Exam-General Problems Physical Exam Vital Signs Vital Signs - First Documented 04/24/18 04/24/18 09:16 10:40 Temp 98.9 Pulse 74 Resp 18 B/P (MAP) 129/59 (82) Pulse Ox 98 O2 Delivery Room Air Capillary Refill : General Appearance: WD/WN, no apparent distress Eyes: Bilateral Eye PERRL, Bilateral Eye EOMI HEENT: pharynx normal; No scleral icterus (R), No scleral icterus (L) Respiratory: chest non-tender, lungs clear, normal breath sounds, no respiratory distress, no accessory muscle use Cardiovascular: regular rate, rhythm, no murmur Gastrointestinal: normal bowel sounds, non tender, soft, no organomegaly, no pulsatile mass Back: no CVA tenderness, no vertebral tenderness Extremities: no calf tenderness, other (non-healing foot ulcer) 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, no motor/sensory deficits, alert, normal mood/affect, oriented x 3 Lymphatic: no adenopathy (neck, axilla or groin) Data Review Labs Laboratory Tests 04/24/18 09:28: White Blood Count 6.3, Red Blood Count 2.35L, Hemoglobin 6.2*L, Hematocrit 20*L , Mean Corpuscular Volume 83, Mean Corpuscular Hemoglobin 26, Mean Corpuscular Hemoglobin Concent 32, Red Cell Distribution Width 17.9H, Platelet Count 169, Mean Platelet Volume 9.2, Prothrombin Time 16.5H, INR Comment 1.3, Activated Partial Thromboplast Time 37H, Sodium Level 134L, Potassium Level 4.3, Chloride Level 107, Carbon Dioxide Level 19L, Anion Gap 8, Blood Urea Nitrogen 23H, Creatinine 1.50H, Estimat Glomerular Filtration Rate 33, BUN/Creatinine Ratio 15 , Glucose Level 121H, Calcium Level 9.7, Corrected Calcium 10.3H, Total Bilirubin 0.6, Aspartate Amino Transf (AST/SGOT) 34, Alanine Aminotransferase ( ALT/SGPT) 36, Alkaline Phosphatase 163H, Total Protein 6.6, Albumin 3.3, Triglycerides Level 59, Cholesterol Level 78, LDL Cholesterol Direct 21, VLDL Cholesterol 12, HDL Cholesterol 36L Assessment/Plan Assessment/Plan Assessment/Plan Anemia Venous Insufficiency CAD Pt needed a central line placed and we discussed the possibility of something more permanent if she is going to need more IV access. She was ok with central line placement. Discussed risks and complications; not limited to pain, bleeding, infection, scar, damage to major vessels and pneumothorax. The majority of these complications will be lessened by using the US. All questions answered to her and her family's satisfaction. Clinical Quality Measures DVT/VTE Risk/Contraindication: Risk Factor Score Per Nursin RFS Level Per Nursing on Admit: 4+=Very High LINDA MCCARTNEY DO Apr 24, 2018 12:41
--- NOTE | 2018-04-24 12:43 | Progress Note-Post Operative ---
Post-Operative Progess Note Surgeon (s)/Sheet Rock Installation Helper (s) Surgeon LINDA MCCARTNEY DO Sheet Rock Installation Helper: none Pre-Operative Diagnosis Anemia, Venous insufficiency Post-Operative Diagnosis same Procedure & Operative Findings Date of Procedure 04/24/18 Procedure Performed/Findings Insertion right IJ triple lumen catheter with US guidance Anesthesia Type local lidocaine Estimated Blood Loss Estimated blood loss (mL): scant Specimens/Packing Specimens Removed none LIDNA MCCARTNEY DO Apr 24, 2018 12:43
[2018-04-24] MEDS ORDERED: PREGABALIN 100 MG (LYRICA) CAPSULE PO SCH (15:00)
[2018-04-24] MEDS ORDERED: PATIENT MAY USE OWN MEDS, ALL MC SCH (15:45)
[2018-04-24] MEDS ORDERED: TROSPIUM 20 MG (SANCTURA) TAB PO SCH (16:00)
[2018-04-24] MEDS: OMEGA 3 (FISH OIL) 1000 MG CAP PO SCH (16:57)
[2018-04-24] MEDS: ARTIFICAL TEARS 0.4 ML UNIT DOSE (REFRESH PLUS) OU SCH ×2 (16:58→21:21)
[2018-04-24] MEDS: NS IV 1000 ML 1,000 ML IV SCH (16:58)
[2018-04-24] MEDS: inSUlin ASPART (NovoLOG) 1 UNIT/0.01 ML (CHARGE PER UNIT) SC SCH (17:34)
[2018-04-24] MEDS: SOLIFENACIN 5 MG TAB (VESICARE) NON-FORMULARY PO SCH (17:36)
[2018-04-24] MEDS: PREGABALIN 100 MG (LYRICA) CAPSULE PO SCH ×2 (18:00→21:21)
[2018-04-24] MEDS ORDERED: RT-ADVAIR HFA 115/21 MCG PER PUFF IH SCH (20:00)
[2018-04-24] MEDS ORDERED: ATORVASTATIN 40 MG (LIPITOR) TABLET PO SCH (21:00)
[2018-04-24] MEDS ORDERED: traZODone 100 MG (DESYREL) TAB PO SCH (21:00)
[2018-04-24] MEDS ORDERED: NIACIN ER (NIASPAN) 500 MG TAB PO SCH (21:00)
[2018-04-24] MEDS: traZODone 100 MG (DESYREL) TAB PO SCH (21:03)
[2018-04-24] MEDS: NIACIN 1000 MG PO SCH (21:05)
[2018-04-24] MEDS: ATORVASTATIN 40 MG (LIPITOR) TABLET PO SCH (21:06)
--- NOTE | 2018-04-24 21:46 | OPERATIVE REPORT ---
DATE OF SERVICE: 04/24/2018 PREOPERATIVE DIAGNOSES: Anemia, venous insufficiency, coronary artery disease. POSTOPERATIVE DIAGNOSES: Anemia, venous insufficiency, coronary artery disease. PROCEDURE: Insertion of triple lumen catheter, right IJ with ultrasound guidance. SURGEON: Anibal Porter DO. VICE PRESIDENT PROCESS: None. ANESTHESIA: Local lidocaine. BLOOD LOSS: Scant. FLUIDS: None. POSTOPERATIVE CONDITION: Stable. INDICATION FOR PROCEDURE: The patient is an 83-year-old female who has no IV access and is in need blood products plus possible old multiple other medications and blood draws and does not have anyway of this to occur. She has a central line. FINDINGS: The patient had a central line placed in the right IJ under ultrasound guidance. PROCEDURE NOTE: After informed consent was obtained, the patient was in her bed. She was sterilely prepped and draped in normal fashion. Bed was placed slightly Trendelenburg. Using ultrasound, able to find the right IJ, infiltrated the skin with local, then using an 18-gauge finder needle was advanced through the skin and cannulated the internal jugular vein with direct visualization washing the needle enter with the ultrasound. Good flush of blood was returned and removed the syringe then placed a guidewire down the needle using Seldinger technique, it went in easily without any difficulty. Removed the needle and then made a stab incision at the guidewire then over the guidewire placed a dilator using Seldinger technique, removed this and then over the guidewire placed the triple lumen catheter without any difficulty went in easily. Removed the guidewire, placed a locking ports on the catheter and then checked all 3 lines and got a good flash of blood, then easily flushed with normal saline, sutured this in place with a 3-0 silk suture. Area was then cleaned and dried, dressing placed. The patient tolerated the procedure. Job ID: [id number] DocumentID: [id number] Dictated Date: 04/24/2018 17:07:05 Outcomes Specialist Date: 04/24/2018 21:46:01 Dictated By: ANIBAL PORTER DO [facility]
[2018-04-25] VITALS (9 sets, daily range): BP systolic 134–175; BP diastolic 67–82
[2018-04-25] MEDS: NS IV 1000 ML 1,000 ML IV SCH ×2 (00:18→12:49)
[2018-04-25] MEDS ORDERED: INSULIN VIAL ASPART for PUMP 100 UNIT/ML VIAL SQ SCH ×3 (06:00→16:00)
[2018-04-25 06:05] LABS: MEAN PLATELET VOLUME 8.6 FL (7.4-10.4); RED BLOOD COUNT 3.07 10^6/uL (4.35-5.85); RED CELL DISTRIBUTION WIDTH 17.9 % (10.0-14.5); WHITE BLOOD COUNT 6.7 10^3/uL (4.3-11.0)
[2018-04-25 06:13] LABS: CALCIUM 9.7 MG/DL (8.5-10.1); CREATININE SERUM 1.1 MG/DL (0.60-1.30); POTASSIUM 4.3 MMOL/L (3.6-5.0)
[2018-04-25] MEDS ORDERED: LEVOTHYROXINE 125 MCG (LEVOTHROID) TABLET PO SCH (06:30)
[2018-04-25] MEDS ORDERED: PANTOPRAZOLE 40 MG (PROTONIX) TAB PO SCH (07:00)
[2018-04-25] MEDS: inSUlin ASPART (NovoLOG) 1 UNIT/0.01 ML (CHARGE PER UNIT) SC SCH ×2 (07:48→17:30)
[2018-04-25] MEDS ORDERED: LIDOCAINE 1% INJ 20 ML 20 ML VIAL ONE (07:54)
[2018-04-25] MEDS ORDERED: fentaNYL INJECTION 100 MCG/2 ML AMP ONE (07:55)
[2018-04-25] MEDS ORDERED: HEParin 1000 UNIT/ML (10ML VIAL) FOR BOLUS ONE (07:55)
[2018-04-25] MEDS ORDERED: MIDAZOLAM 5 MG/5 ML (VERSED) VIAL ONE (07:55)
[2018-04-25] MEDS ORDERED: MULTIVIT W/MINERALS TAB (THERAGRAN M) PO SCH (08:00)
[2018-04-25] MEDS ORDERED: NS IV 1000 ML 1,000 ML ONE (08:05)
[2018-04-25] MEDS ORDERED: HEParin (CATH LAB) 1,000 ML IV ONE (08:21)
--- NOTE | 2018-04-25 08:52 | Cardiac Procedure Note-CS/ASA ---
Pre-Procedure Note Pre-Op Procedure Note H&P Reviewed The H&P was reviewed, patient examined and no changes noted. Date H&P Reviewed: Apr 25, 2018 Time H&P Reviewed: 08:52 Conscious Sedation Pre-Proced Time 08:52 ASA Score 3 For ASA 3 and 4: Consider anesthesia and medical clearance. Also, for patients with a history of failed moderate sedation consider anesthesia. Airway Lungs Heart ASA score ASA 1: a normal healthy patient ASA 2: a patient with a mild systemic disease (mid diabetes, controlled hypertension, obesity x ASA 3: a patient with a severe systemic disease that limits activity (angina , COPD, prior Myocardial infarction) ASA 4: a patient with an incapacitating disease that is a constant threat to life (CHF, renal failure) ASA 5: a moribund patient not expected to survive 24 hrs. (ruptured aneurysm) ASA 6: a declared brain patient whose organs are being harvested. For emergent operations, add the letter E after the classification Mallampati Classification Grade 3 Sedation Plan Analgesia, Amnesia, Plan communicated to team members, Discussed options with patient/fam, Discussed risks with patient/fam The patient is an appropriate candidate to undergo the planned procedure, sedation, and anesthesia. The patient immediately re-assessed prior to indication. JULIETTE GOMEZ MD Apr 25, 2018 08:52
[2018-04-25] MEDS ORDERED: LOSARTAN 50 MG (COZAAR) TAB PO SCH (09:00)
[2018-04-25] MEDS ORDERED: INSULIN DEGLUDEC 35 UNIT SQ SCH (09:00)
[2018-04-25] MEDS ORDERED: SERTRALINE 50 MG (ZOLOFT) TABLET PO SCH (09:00)
[2018-04-25] MEDS ORDERED: ASPIRIN 81 MG CHEW (CHILDREN'S ASA) PO SCH (09:00)
[2018-04-25] MEDS ORDERED: LORATADINE (CLARITIN) 10 MG TAB PO SCH (09:00)
[2018-04-25] MEDS ORDERED: MECLIZINE 25 MG (ANTIVERT) TAB PO SCH (09:00)
--- NOTE | 2018-04-25 09:28 | Cardiology Progress Note ---
Subjective Date Seen by Provider: Apr 25, 2018 Time Seen by Provider: 09:26 Subjective/Events-last exam Patient was seen and evaluated, laying down in bed. No new complaint. Hemoglobin is slightly better still severely anemic Review of Systems General: No Chills, No Night Sweats, No Fatigue, No Malaise, No Appetite, No Other HEENT: No Head Aches, No Visual Changes, No Eye Pain, No Ear Pain, No Dysphasia , No Sinus Congestion, No Post Nasal Drip, No Sore Throat, No Other Pulmonary: Dyspnea; No Cough, No Pleuritic Chest Pain, No Other Cardiovascular: No: Chest Pain, Palpitations, Orthopnea, Paroxysmal Noc. Dyspnea, Edema, Lt Headedness, Other Objective-Cardiology Exam Last Set of Vital Signs Vital Signs 04/25/18 04/25/18 04:00 08:00 Temp 97.1 Pulse 65 Resp 18 B/P (MAP) 150/67 (94) Pulse Ox 98 O2 Delivery Room Air Capillary Refill : I&O Intake and Output 04/25/18 00:00 Intake Total 1590 ml Output Total 1050 ml Balance 540 ml Intake Oral 1190 ml IV Total 300 ml Other 100 ml Output Urine Total 1050 ml Daily Weight Change No General: Alert, Oriented X3, Cooperative HEENT: Atraumatic, PERRLA Neck: Supple, No JVD, No Thyromegaly Lungs: Clear to Auscultation, Normal Air Movement Heart: Regular Rate, Normal S1, Normal S2, No Murmurs Abdomen: Normal Bowel Sounds, Soft, No Tenderness, No Hepatosplenomegaly, No Masses Extremities: No Clubbing, No Cyanosis, No Edema, No Tenderness/Swelling Skin: No Rashes, No Breakdown, No Significant Lesion Neuro: Normal Gait, Normal Speech, Strength at 5/5 X4 Ext, Normal Tone, Sensation Intact Psych/Mental Status: Mental Status NL, Mood NL Results Lab Laboratory Tests 04/24/18 09:28 04/25/18 05:42 A/P-Cardiology Admission Diagnosis Peripheral arterial disease Nonhealing foot ulcer Anemia Coronary artery disease Assessment/Plan Anemia, acute on chronic, history of anemia of chronic disease with intermittent GI loss, has been managed by Dr. Chadwick, improvement after transfusion 2 units of packed RBCs, I'll transfuse one additional unit and monitor H&H Peripheral arterial disease, nonhealing foot ulcer on the left side, abnormal TRINITY. 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 Continue to monitor Coronary artery disease, history of PTCA and stent placement using 3.0 x 8 mm Taxus drug-eluting stent to the mid LAD, and Taxus 3.5 x 12 mm drug-eluting stent overlapping the mid LAD in February 2011, RCA had PTCA and stent placement using 3.0 x 24 mm Taxus drug-eluting stent. Most recent cardiac catheterization done in 2012 revealed patent stents. Stress test done in September 2017, showed no ischemia or infarction, echocardiogram showed diastolic dysfunction with normal systolic function, ejection fraction 60 percent, PA pressure 35 mmHg. continue to monitor Palpitations, reporting improvement. Continue on Toprol and monitor Hypertension, better control at this time. Continue to monitor blood pressure Orthostatic dizziness, no full syncope was reported. Continue to monitor blood pressure response Hyperlipidemia, continue to monitor lipids History of intracranial bleed in August 2017, spontaneous without trauma, last CT scan was done in February showing no signs of bleeding, she was hospitalized early in February for an episode of change in mental status and delirium that has improved at this time, she is back to baseline. Continue to monitor Carotid artery stenosis with history of left subclavian stent and carotid endarterectomy, monitored by heart and vascular care, scheduled for ultrasound later this month Pulmonary nodule, noted and followed with heart and vascular care as well as Dr. Caldera. COPD, obstructive sleep apnea. Started on C Pap machine, seen and followed by Dr. Caldera Ankle fracture, reconstructive surgery in September, still immobilized by apparatus installed by Dr. Luis, scheduled to remove it on January 15. Using a wheelchair at this time Clinical Quality Measures DVT/VTE Risk/Contraindication: Risk Factor Score Per Nursin RFS Level Per Nursing on Admit: 4+=Very High JULIETTE GOMEZ MD Apr 25, 2018 09:28
[2018-04-25] MEDS ORDERED: PATIENT MAY USE OWN MEDS, ALL PO SCH (09:30)
--- NOTE | 2018-04-25 09:32 | Peripheral Report ---
Peripheral Report Physician (s)/Dental Technician Metal (s) Physician JULIETTE GOMEZ MD Pre-Procedure Diagnosis Pre-Procedure Diagnosis: Peripheral arterial disease Post-Procedure Note Procedure Start Date: Apr 25, 2018 Name of Procedure: Bilateral lower extremity runoff Third order Additional imaging Findings/Procedure Note PROCEDURE NOTE: After explaining the procedure to the patient, all pros and cons were explained , all questions were answered. The patient signed the consent and then she was placed on the cardiac catheterization laboratory. The patient was placed on the cardiac catheterization laboratory. Groin was prepped SL fashion local anesthesia was used. Sheath placed in the right femoral artery. Rim catheter was advanced to the abdominal aorta to evaluate the bifurcation and then exchanged over a long J-wire into a straight catheter that was placed in the iliac artery and runoff to the left lower extremity was done then the straight catheter was advanced to the distal SFA and 3 additional imaging were done to evaluate the popliteal artery and trifurcation then the arteries down to the foot. The straight catheter was removed and runoff to the right lower extremity was done through the sheath down to the trifurcation. At the end of the procedure sheath was removed with manual pressure FINDINGS: Left lower extremity runoff: Done at multiple stages showing mild disease, nonobstructive disease down to the foot, evaluation of the iliac artery, SFA, popliteal, anterior and posterior tibials, peroneal arteries showed good flow down to the foot Right lower extremity runoff: Done through the sheath which showed good flow down to the trifurcation, nonobstructive disease CONCLUSIONS: 1. Mild peripheral arterial disease nonobstructive disease bilaterally 2. Nonhealing ulcers could be related to venous insufficiency versus decubitus ulcers DISCUSSION AND RECOMMENDATIONS: Continue with medical therapy, managed by Dr. Avila Anesthesia Type: Conscious Sedation Estimated blood loss (mL): 10 ml Contrast Amount: 30 ml Total Radiation Dose: 118 mGy Post-Procedure Diagnosis Post-operative diagnosis: Nonhealing foot ulcer Peripheral arterial disease Hypertension Hyperlipidemia Diabetes mellitus JULIETTE GOMEZ MD Apr 25, 2018 09:32
[2018-04-25] MEDS: LEVOTHYROXINE 125 MCG (LEVOTHROID) TABLET PO SCH (10:18)
[2018-04-25] MEDS: OMEGA 3 (FISH OIL) 1000 MG CAP PO SCH (10:18)
[2018-04-25] MEDS: ARTIFICAL TEARS 0.4 ML UNIT DOSE (REFRESH PLUS) OU SCH (10:47)
[2018-04-25] MEDS: FOLIC ACID 1 MG TAB PO SCH (10:47)
[2018-04-25] MEDS: PREGABALIN 100 MG (LYRICA) CAPSULE PO SCH ×3 (10:47→21:35)
[2018-04-25] MEDS: OMEPRAZOLE 40 MG CAPSULE PO SCH (10:48)
[2018-04-25] MEDS: OLMESARTAN 20 MG (BENICAR) TABLET PO SCH (11:25)
[2018-04-25] MEDS: ASPIRIN E.C. 81 MG (ECOTRIN) TAB PO SCH (11:26)
[2018-04-25] MEDS: LORATADINE (CLARITIN) 10 MG TAB PO SCH (11:27)
[2018-04-25] MEDS: SERTRALINE 50 MG (ZOLOFT) TABLET PO SCH (11:27)
[2018-04-25] MEDS: MECLIZINE 25 MG (ANTIVERT) TAB PO SCH (11:27)
[2018-04-25] MEDS: SOLIFENACIN 5 MG TAB (VESICARE) NON-FORMULARY PO SCH (11:27)
[2018-04-25] MEDS ORDERED: inSUlin ASPART (NovoLOG) 1 UNIT/0.01 ML (CHARGE PER UNIT) SC SCH (12:00)
--- NOTE | 2018-04-25 12:11 | Progress Note ---
Subjective Time Seen by a Provider: 10:08 Subjective/Events-last exam Pt seen and examined, has already had procedure by Cardiology. Pt has not complaints and states the central line is working fine. Review of Systems General: No Chills, No Night Sweats Pulmonary: No Dyspnea, No Cough Cardiovascular: No: Chest Pain Gastrointestinal: No: Nausea, Vomiting Objective Exam Vital Signs Date Time Temp Pulse Resp B/P (MAP) Pulse Ox O2 Delivery O2 Flow Rate FiO2 04/25/18 08:00 97.9 66 16 134/82 (99) 96 Room Air 04/25/18 08:00 Room Air 04/25/18 04:00 97.1 65 18 150/67 (94) 98 Room Air 04/25/18 01:00 98.1 04/25/18 00:24 99.1 72 18 148/67 (94) 97 Room Air 04/24/18 20:15 100.0 73 16 148/65 (92) 97 Room Air 04/24/18 20:01 99.4 74 16 136/63 96 Room Air 04/24/18 20:00 Room Air 04/24/18 17:10 98.0 70 20 128/61 97 Room Air 04/24/18 16:52 98.8 69 20 133/63 95 Room Air 04/24/18 16:48 98.8 69 20 133/63 95 Room Air 04/24/18 16:05 98.9 76 20 142/63 (89) 96 Room Air 04/24/18 14:06 98.3 75 18 143/61 98 Room Air 04/24/18 13:46 98.5 79 18 143/63 99 Room Air I & O 04/25/18 07:00 Intake Total 2590 ml Output Total 1850 ml Balance 740 ml Capillary Refill : General Appearance: No Apparent Distress, WD/WN HEENT: PERRL/EOMI Neck: Carotid Bruit Respiratory: Chest Non Tender, Lungs Clear, Normal Breath Sounds, No Accessory Muscle Use, No Respiratory Distress Cardiovascular: Regular Rate, Rhythm, No Edema, No Gallop, No JVD, Systolic Murmur Gastrointestinal: normal bowel sounds, non tender, soft, no organomegaly, no pulsatile mass Extremity: Other (Left foot edema, 3 ulcers one on the lateral aspect of her calf, one on the medial aspect of her foot and the bottom of her foot, poor pulse) Neurologic/Psychiatric: Alert, Oriented x3, No Motor/Sensory Deficits, Normal Mood/Affect Skin: Ecchymosis (old, covering arms) Results Lab Laboratory Tests 04/24/18 16:04: Glucometer 183H 04/24/18 20:15: Glucometer 172H 04/25/18 05:42: White Blood Count 6.7, Red Blood Count 3.07L, Hemoglobin 8.0#L, Hematocrit 26L, Mean Corpuscular Volume 83, Mean Corpuscular Hemoglobin 26, Mean Corpuscular Hemoglobin Concent 31L, Red Cell Distribution Width 17.9H, Platelet Count 182, Mean Platelet Volume 8.6, Sodium Level 139, Potassium Level 4.3, Chloride Level 112H, Carbon Dioxide Level 17L, Anion Gap 10, Blood Urea Nitrogen 17, Creatinine 1.10, Estimat Glomerular Filtration Rate 47, BUN/Creatinine Ratio 15 , Glucose Level 102, Calcium Level 9.7 04/25/18 06:07: Glucometer 110 04/25/18 11:54: Glucometer 131H Assessment/Plan Assessment/Plan Assessment/Plan Anemia Venous Insufficiency CAD Pt was told to follow up in my office so we can talk more about Sona-cath, she had no questions. Clinical Quality Measures DVT/VTE Risk/Contraindication: Risk Factor Score Per Nursin RFS Level Per Nursing on Admit: 4+=Very High LINDA MCCARTNEY DO Apr 25, 2018 12:11
--- NOTE | 2018-04-25 12:17 | Consultation-Hospitalist ---
HPI History of Present Illness: HPI/Chief Complaint The patient is an 83-year-old white female known to me from previous admission. She was scheduled at this time to have lower extremity peripheral artery studies. She has had problems with recurrent/persistent lower extremity skin wounds. She has also been chronically anemic. Dr. House asked me to see her as she was to have had the studies done yesterday but had a hemoglobin of 6.2 at presentation. In looking back she has been chronically anemic. A hemoglobin on 10/28/17 was 7.9. Any more recent admission she had a sodium of 121. At this time her sodium is in the 130s. She has had her peripheral study and was not found to have any significant obstructive lesions. She received 2 units of packed red blood cells in her hemoglobin was 8.0 this morning. Date Seen 04/25/18 Attending Physician Harrison House MD PCP Andres Bui MD Referring Physician Date of Admission Home Medications & Allergies Home Medications Reviewed patient Home Medication Reconciliation performed by pharmacy medication reconciliations semiconductor technician and/or nursing. Patients Allergies have been reviewed. Allergies Allergies Coded Allergies Penicillins (Verified Allergy, Unknown, Pt has received Ceftriaxone in the past, 10/22/17) influenza virus vaccine, specific (Verified Adverse Reaction, Unknown, Not allergic just won't take Flu vaccine, 10/22/17) Past Lldauhv-Brzduh-Xmiiel Hx Past Med/Social Hx: Reviewed Nursing Past Med/Soc Hx Patient Social History Marrital Status: Alcohol Use: Denies Use Recreational Drug Use: No Smoking Status: Never a Smoker 2nd Hand Smoke Exposure: No Physical Abuse Screen: No Sexual Abuse: No Recent Foreign Travel: No Contact w/other who traveled: No Recent Hopitalizations: Yes (SEP 2017) Recent Infectious Disease Expo: No Immunizations Up To Date Tetanus Booster (TDap): Unknown Date of Pneumonia Vaccine: Aug 28, 2012 Seasonal Allergies Seasonal Allergies: No Past Medical History Surgeries: Appendectomy, Eye Surgery, Hysterectomy, Joint Replacement Respiratory: Sleep Apnea Currently Using CPAP: Yes (with oxygen) Currently Using BIPAP: No Cardiac: Coronary Artery Disease, Hypertension Neurological: Dementia 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: No Sexually Transmitted Disease: No HIV/AIDS: No Female 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 Disorders: Denies Genitourinary: Kidney Infection, Bladder Infection, Renal Failure, UTI-Chronic Gastrointestinal: Gastroesophageal Reflux, Polyps, Hiatal Hernia Musculoskeletal: Arthritis Endocrine: Diabetes, Insulin dep HEENT: Cataract Loss of Vision: Denies Hearing Impairment: Denies Psychosocial: Anxiety, Depression Skin/Integumentary: Recent Skin Changes History of Blood Disorders: Yes (ANEMIA) Adverse Reaction to Blood Herrera: No Family History Arthritis Cardiovascular disease Diabetes mellitus Hypertension Diabetes, Hypertension Review of Systems Constitutional: see HPI EENTM: hearing loss Respiratory: no symptoms reported Cardiovascular: no symptoms reported Gastrointestinal: no symptoms reported Musculoskeletal: no symptoms reported Skin: see HPI Psychiatric/Neurological: No Symptoms Reported Physical Exam Physical Exam Vital Signs Vital Signs - First Documented 04/24/18 09:16 Temp 98.9 Pulse 74 Resp 18 B/P (MAP) 129/59 (82) Pulse Ox 98 Capillary Refill : Height, Weight, BMI Height: 5'7.00" Weight: 179lbs. 0.0oz. 81.317267px; 28.0 BMI Method:Stated General Appearance: Other (she is hard of hearing and somewhat drowsy from procedure medication.) Eyes: Bilateral Eye Normal Inspection HEENT: Normal ENT Inspection Neck: Normal Inspection Respiratory: Chest Non Tender, Lungs Clear, Normal Breath Sounds, No Accessory Muscle Use, No Respiratory Distress Cardiovascular: Regular Rate, Rhythm, No Edema, No Gallop, No JVD, No Murmur, Normal Peripheral Pulses Gastrointestinal: Normal Bowel Sounds, No Organomegaly, No Pulsatile Mass, Non Tender, Soft Back: Normal Inspection, No CVA Tenderness, No Vertebral Tenderness Extremity: Normal Capillary Refill, No Pedal Edema Neurologic/Psychiatric: Alert, Oriented x3, No Motor/Sensory Deficits, Normal Mood/Affect Results Results/Procedures Labs Laboratory Tests 04/24/18 09:28 04/25/18 05:42 Patient resulted labs reviewed. Assessment/Plan Assessment and Plan Assess & Plan/Chief Complaint 1.diabetes mellitus type II. 2.recurrent distal lower extremity skin wounds, suspect venous stasis in view of negative arteriograms. 3.chronic anemia. Plan: Continue insulin regimen as initially ordered. Fingerstick blood sugars are quite satisfactory. 2.plan for discharge in a.m. Clinical Quality Measures DVT/VTE Risk/Contraindication: Risk Factor Score Per Nursin RFS Level Per Nursing on Admit: 4+=Very High REBECCA CAMARILLO MD Apr 25, 2018 12:17
[2018-04-25] MEDS: inSUlin DETERMIR 1 UNIT/0.01 ML (LEVEMIR) CHARGE PER UNIT SQ SCH (12:46)
[2018-04-25] MEDS: ADVAIR 250 MCG/50 MCG (NON-FORMULARY) IH SCH ×2 (20:00→21:18)
[2018-04-25] MEDS: ARTIFICIAL TEARS OU SCH (21:18)
[2018-04-25] MEDS: NIACIN 1000 MG PO SCH (21:19)
[2018-04-25] MEDS: ATORVASTATIN 40 MG (LIPITOR) TABLET PO SCH (21:19)
[2018-04-25] MEDS: traZODone 100 MG (DESYREL) TAB PO SCH (21:19)
[2018-04-26 00:06] VITALS: BP 174/72
[2018-04-26] MEDS: NS IV 1000 ML 1,000 ML IV SCH (01:36)
[2018-04-26 04:00] VITALS: BP 161/68
[2018-04-26 06:39] LABS: HEMOGLOBIN 9.2 G/DL (11.5-16.0); MEAN PLATELET VOLUME 9.2 FL (7.4-10.4); RED BLOOD COUNT 3.41 10^6/uL (4.35-5.85); RED CELL DISTRIBUTION WIDTH 17.8 % (10.0-14.5); WHITE BLOOD COUNT 7.5 10^3/uL (4.3-11.0)
[2018-04-26] MEDS: LEVOTHYROXINE 125 MCG (LEVOTHROID) TABLET PO SCH (06:56)
[2018-04-26] MEDS: OMEPRAZOLE 40 MG CAPSULE PO SCH (06:56)
[2018-04-26] MEDS: OMEGA 3 (FISH OIL) 1000 MG CAP PO SCH (06:57)
[2018-04-26 07:01] LABS: CALCIUM 9.7 MG/DL (8.5-10.1); CREATININE SERUM 1.04 MG/DL (0.60-1.30); POTASSIUM 4.1 MMOL/L (3.6-5.0)
[2018-04-26] MEDS ORDERED: MULTIVIT W/MINERALS TAB (THERAGRAN M) PO SCH (08:00)
--- NOTE | 2018-04-26 08:04 | Discharge Inst-Post CATH ---
Discharge Inst-CATH Post Cardiac Cath D/C Inst Follow Up/Plan Appointment with Dr Chadwick next week Appointment with Dr House in 2-4 weeks CARDIAC CATH DISCHARGE INSTRUCTIONS *Hold Metformin for 48 hours post heart cath. ACTIVITY * Go Home directly and rest. * Limit activity of the leg (or wrist if it was used) for 7 days including aerobics, swimming, jogging, bicycling, etc. * Restrict stair-climbing for 7 days if possible, if not, climb up with your non -cath leg, then bring together on the same step. * Avoid lifting, pushing, pulling or excessive movement of the affected extremity for 7 days. * Customary sexual activity may be resumed after 2 days-use caution not to use a position that strains or causes pain to the affected extremity. * No driving for 24 hours. * NO SMOKING. * Avoid straining for bowel movements for 7 days. * Gentle walking on level ground is allowed. * Returning to work will depend on the type of procedure and the results. Your doctor will discuss this with you. CALL YOUR DOCTOR FOR ANY OF THE FOLLOWING: *If bleeding from the puncture site occurs- Apply gentle pressure to site with clean cloth and call your doctor or EMS. * If a knot or lump forms under the skin, increases in size, or causes pain. * If bruising appears to be worsening or moving further down your leg instead of disappearing. * Temperature above 101 F. CARE OF YOUR GROIN INCISION; * Bruising or purple discoloration of the skin near the puncture site is common. * You may shower only, no bathtub bathing for 5 days. Be careful to avoid slipping as your leg may feel stiff. * If a closure device was used on your femoral artery, please see the attached guide regarding care of the device and your leg. * Leave the dressing on, until removed by office staff. CARE OF YOUR WRIST INCISION; * Bruising or purple discoloration of the skin near the puncture site is common. * You may shower. * DO NOT submerge wrist. * Leave dressing on, until removed by office staff.. JULIETTE HOUSE MD Apr 26, 2018 08:04
--- NOTE | 2018-04-26 08:07 | Cardiology Progress Note ---
Subjective Date Seen by Provider: Apr 26, 2018 Time Seen by Provider: 08:05 Subjective/Events-last exam Patient is in bed, feeling better, no new complaint Review of Systems General: No Chills, No Night Sweats, No Fatigue, No Malaise, No Appetite, No Other HEENT: No Head Aches, No Visual Changes, No Eye Pain, No Ear Pain, No Dysphasia , No Sinus Congestion, No Post Nasal Drip, No Sore Throat, No Other Pulmonary: No Dyspnea, No Cough, No Pleuritic Chest Pain, No Other Cardiovascular: No: Chest Pain, Palpitations, Orthopnea, Paroxysmal Noc. Dyspnea, Edema, Lt Headedness, Other Objective-Cardiology Exam Last Set of Vital Signs Vital Signs 04/26/18 04/26/18 04:00 07:52 Temp 98.5 Pulse 68 Resp 20 B/P (MAP) 161/68 (99) Pulse Ox 95 O2 Delivery Room Air Capillary Refill : I&O Intake and Output 04/26/18 00:00 Intake Total 3800 ml Output Total 2300 ml Balance 1500 ml Intake Oral 1260 ml IV Total 2000 ml Other 540 ml Output Urine Total 2300 ml # Voids 1 # Urine Diapers 1 General: Alert, Oriented X3, Cooperative HEENT: Atraumatic, PERRLA Neck: Supple, No JVD, No Thyromegaly Lungs: Clear to Auscultation, Normal Air Movement Heart: Regular Rate, Normal S1, Normal S2, No Murmurs Abdomen: Normal Bowel Sounds, Soft, No Tenderness, No Hepatosplenomegaly, No Masses Extremities: No Clubbing, No Cyanosis, No Edema, No Tenderness/Swelling Skin: No Rashes, No Breakdown, No Significant Lesion Neuro: Normal Gait, Normal Speech, Strength at 5/5 X4 Ext, Normal Tone, Sensation Intact Psych/Mental Status: Mental Status NL, Mood NL Results Lab Laboratory Tests 04/26/18 05:35 A/P-Cardiology Admission Diagnosis Peripheral arterial disease Nonhealing foot ulcer Anemia Coronary artery disease Assessment/Plan Anemia, acute on chronic, history of anemia of chronic disease with intermittent GI loss, has been managed by Dr. Chadwick, transfused a total of 3 units PRBC. She will need an appointment with Dr Chadwick as an outpatient Peripheral arterial disease, nonhealing foot ulcer on the left side, abnormal TRINITY. 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 Cr level is better Coronary artery disease, history of PTCA and stent placement using 3.0 x 8 mm Taxus drug-eluting stent to the mid LAD, and Taxus 3.5 x 12 mm drug-eluting stent overlapping the mid LAD in February 2011, RCA had PTCA and stent placement using 3.0 x 24 mm Taxus drug-eluting stent. Most recent cardiac catheterization done in 2012 revealed patent stents. Stress test done in September 2017, showed no ischemia or infarction, echocardiogram showed diastolic dysfunction with normal systolic function, ejection fraction 60 percent, PA pressure 35 mmHg. continue to monitor Palpitations, reporting improvement. Continue on Toprol and monitor Hypertension, better control at this time. Continue to monitor blood pressure Orthostatic dizziness, no full syncope was reported. Continue to monitor blood pressure response Hyperlipidemia, continue to monitor lipids History of intracranial bleed in August 2017, spontaneous without trauma, last CT scan was done in February showing no signs of bleeding, she was hospitalized early in February for an episode of change in mental status and delirium that has improved at this time, she is back to baseline. Continue to monitor Carotid artery stenosis with history of left subclavian stent and carotid endarterectomy, monitored by heart and vascular care, scheduled for ultrasound later this month Pulmonary nodule, noted and followed with heart and vascular care as well as Dr. Caldera. COPD, obstructive sleep apnea. Started on C Pap machine, seen and followed by Dr. Caldera Ankle fracture, reconstructive surgery in September, still immobilized by apparatus installed by Dr. Luis, scheduled to remove it on January 15. Using a wheelchair at this time Ok for Discharge from cardiology standpoint Clinical Quality Measures DVT/VTE Risk/Contraindication: Risk Factor Score Per Nursin RFS Level Per Nursing on Admit: 4+=Very High JULIETTE GOMEZ MD Apr 26, 2018 08:07
[2018-04-26 08:21] VITALS: BP 150/60
[2018-04-26] MEDS: PREGABALIN 100 MG (LYRICA) CAPSULE PO SCH (08:21)
[2018-04-26] MEDS: inSUlin ASPART (NovoLOG) 1 UNIT/0.01 ML (CHARGE PER UNIT) SC SCH (08:22)
[2018-04-26] MEDS: FOLIC ACID 1 MG TAB PO SCH (08:23)
[2018-04-26] MEDS: inSUlin DETERMIR 1 UNIT/0.01 ML (LEVEMIR) CHARGE PER UNIT SQ SCH (10:07)
[2018-04-26] MEDS: SERTRALINE 50 MG (ZOLOFT) TABLET PO SCH (10:08)
[2018-04-26] MEDS: OLMESARTAN 20 MG (BENICAR) TABLET PO SCH (10:09)
[2018-04-26] MEDS: ASPIRIN E.C. 81 MG (ECOTRIN) TAB PO SCH (10:09)
[2018-04-26] MEDS: LORATADINE (CLARITIN) 10 MG TAB PO SCH (10:10)
[2018-04-26] MEDS: MECLIZINE 25 MG (ANTIVERT) TAB PO SCH (10:10)
[2018-04-26] MEDS: ARTIFICIAL TEARS OU SCH (10:10)
[2018-04-26] MEDS: SOLIFENACIN 5 MG TAB (VESICARE) NON-FORMULARY PO SCH (10:13)
[2018-04-26 11:35] VITALS: BP 150/60
[2018-05-06] MEDS ORDERED: TRAM50TA2 PO (16:59)
== END 2018-04-26 11:35 | disposition home or self-care (01) | DRG 300 ==
LOC: CATH 07:31 → 4TH 10:33 → CATH 04-25 15:14 → 4TH 04-25 15:15 → UNDOADMIN 04-25 15:15 → CATH 04-25 15:15 → 4TH 04-25 15:15 → UNDODISIN 04-26 11:35
PROVIDERS: ADMIT Internal Medicine Cardiovascular Disease; ATTEND Internal Medicine Cardiovascular Disease
PROC: B41D1ZZ Fluoroscopy of Aorta and Bilateral Lower Extremity Arteries using Low Osmolar Contrast (ICD-10-PCS; principal; 2018-04-25)
DX: I87.2 Venous insufficiency (chronic) (peripheral) (principal); L97.229 Non-pressure chronic ulcer of left calf with unspecified severity; I70.202 Unspecified atherosclerosis of native arteries of extremities, left leg; L97.429 Non-pressure chronic ulcer of left heel and midfoot with unspecified severity; L97.529 Non-pressure chronic ulcer of other part of left foot with unspecified severity; D63.8 Anemia in other chronic diseases classified elsewhere; I25.10 Atherosclerotic heart disease of native coronary artery without angina pectoris; E78.2 Mixed hyperlipidemia; E11.51 Type 2 diabetes mellitus with diabetic peripheral angiopathy without gangrene; I12.9 Hypertensive chronic kidney disease with stage 1 through stage 4 chronic kidney disease, or unspecified chronic kidney disease; N18.3 Chronic kidney disease, stage 3 (moderate); J44.9 Chronic obstructive pulmonary disease, unspecified; R91.1 Solitary pulmonary nodule; G47.33 Obstructive sleep apnea (adult) (pediatric); I65.23 Occlusion and stenosis of bilateral carotid arteries; R00.2 Palpitations; K21.9 Gastro-esophageal reflux disease without esophagitis; F03.90 Unspecified dementia, unspecified severity, without behavioral disturbance, psychotic disturbance, mood disturbance, and anxiety; F41.9 Anxiety disorder, unspecified; F32.9 Major depressive disorder, single episode, unspecified; Z95.5 Presence of coronary angioplasty implant and graft; Z79.4 Long term (current) use of insulin
CPT/HCPCS: 36140; 36248; 36415; 71045; 75716; 80048; 80053; 80061; 82962; 85027; 85610; 85730; 86850; 86900; 86901; 86920; 87081; 93005

== ENCOUNTER → 2018-05-01 | Outpatient (CLI) | payer MEDICARE, MEDICAID ==
[~2018-05-01] MED LIST changes: +ALBU0.63 IH; +ASPI-586 PO; +CEPH500T PO; +INSU100I32 SQ
== END ==
LOC: WOUNDCARE 10:58
PROVIDERS: ATTEND Nurse Practitioner
DX: L89.620 Pressure ulcer of left heel, unstageable (principal); E11.621 Type 2 diabetes mellitus with foot ulcer; L97.422 Non-pressure chronic ulcer of left heel and midfoot with fat layer exposed; L97.222 Non-pressure chronic ulcer of left calf with fat layer exposed; M14.672 Charcot's joint, left ankle and foot; I70.244 Atherosclerosis of native arteries of left leg with ulceration of heel and midfoot; E11.622 Type 2 diabetes mellitus with other skin ulcer
CPT/HCPCS: 99213

== ENCOUNTER 2018-05-02 22:32 | Emergency (ER) | payer MEDICARE, MEDICAID ==
[~2018-05-02] VITALS: Ht 170.2 cm; Wt 84.8 kg
[~2018-05-02 22:32] MED LIST changes: -CEPH500T PO
--- NOTE | 2018-05-02 22:57 | ED Lower Extremity ---
General Chief Complaint: Lower Extremity Stated Complaint: L FOOT WOUND Source: patient, family Exam Limitations: no limitations History of Present Illness Date Seen by Provider: May 02, 2018 Time Seen by Provider: 22:45 Initial Comments The patient presents to the ER by private conveyance with her family and chief complaint that today she is having some weeping bleeding through the dressings on her left lower extremity wounds. These chronic wounds are being dealt with by Dr. Mercer. She had Charcot foot secondary to diabetes treated originally with surgery by Dr. Anne, core winding operator and now the wounds are being managed by outpatient wound care. She spent a weekend in the hospital last week and daughter felt that the wounds were not attended to normal dressings changed during that time and had a lot of breakdown and maceration and worsening of the wounds. She's not been on antibiotics for the last several weeks. She's having some warmth, tenderness in the ankle. She has had cellulitis there before and has been treated with Keflex successfully. Her allergy to penicillin is that she swells up. The patient does take aspirin 81 mg daily but does not take any blood thinners or antiplatelet medicines otherwise. Allergies and Home Medications Allergies Coded Allergies: Penicillins (Verified Allergy, Unknown, Pt has received Ceftriaxone in the past, 10/22/17) influenza virus vaccine, specific (Verified Adverse Reaction, Unknown, Not allergic just won't take Flu vaccine, 10/22/17) Home Medications Acetaminophen 500 Mg Tablet, 500 MG PO Q6H PRN for PAIN-MILD, (Reported) Albuterol Sulfate 18 Gm Hfa.aer.ad, 2 PUFF INH Q4H PRN for SHORTNESS OF BREATH, (Reported) Albuterol Sulfate 0.63 Mg/3 Ml Vial.neb, 0.63 MG IH Q6H PRN for SHORTNESS OF BREATH, (Reported) Aspirin 81 Mg Tablet.dr, 81 MG PO DAILY, (Reported) Atorvastatin Calcium 40 Mg Tablet, 40 MG PO HS, (Reported) Citalopram Hydrobromide 20 Mg Tablet, 20 MG PO HS, (Reported) Cyclosporine 1 Each Droperette, 1 DROP OU BID, (Reported) Fish Oil/Dha/Epa 1 Each Capsule, 3,600 MG PO DAILY, (Reported) TAKES 3 (1200MG) CAPSULES Fluticasone Propionate 16 Gm Mize.susp, 1 SPRAY NS DAILY PRN for ALLERGIES, ( Reported) Fluticasone/Salmeterol 1 Each Blst.w.dev, 1 PUFF IH BID, (Reported) Folic Acid 1 Mg Tablet, 1 MG PO DAILY, (Reported) Furosemide 40 Mg Tablet, 40 MG PO DAILY, (Reported) Insulin Aspart 100 Unit/1 Ml Susp, 10 UNIT SQ morning, (Reported) Insulin Aspart 100 Unit/1 Ml Susp, 2 UNIT SQ Lunch, (Reported) Insulin Aspart 100 Unit/1 Ml Susp, 6 UNIT SQ Supper, (Reported) Insulin Degludec 100 Unit/1 Ml Insuln.pen, 35 UNIT SQ DAILY, (Reported) Levothyroxine Sodium 125 Mcg Tablet, 125 MCG PO DAILY, (Reported) Loratadine 10 Mg Tablet, 10 MG PO DAILY, (Reported) Meclizine HCl 25 Mg Tablet, 25 MG PO DAILY, (Reported) Metoprolol Succinate 25 Mg Tab.er.24h, 25 MG PO BID, (Reported) Multivitamin 1 Each Tablet, 1 TAB PO DAILY, (Reported) Niacin 1,000 Mg Tab.er.24h, 1,000 MG PO HS, (Reported) Olmesartan Medoxomil 20 Mg Tablet, 10 MG PO DAILY, (Reported) TAKES 1/2 (20MG) TABLET Omeprazole 40 Mg Capsule.dr, 40 MG PO DAILY, (Reported) Pregabalin 100 Mg Capsule, 100 MG PO 0800,1500,2100, (Reported) Sertraline HCl 50 Mg Tablet, 50 MG PO DAILY, (Reported) Solifenacin Succinate 5 Mg Tablet, 5 MG PO DAILY, (Reported) Tiotropium [place] 1 Inh Aerp, 1 CAP IH HS, (Reported) Tramadol HCl 50 Mg Tablet, 50 MG PO Q8H, (Reported) Trazodone HCl 100 Mg Tablet, 100 MG PO HS, (Reported) Patient Home Medication List Home Medication List Reviewed: Yes Review of Systems Constitutional: No chills, No diaphoresis, No fever, No malaise EENTM: No ear discharge, No ear pain Respiratory: No cough, No short of breath Cardiovascular: No chest pain, No edema Gastrointestinal: No abdominal pain, No nausea Genitourinary: No discharge, No dysuria Past Oeunfyv-Hzioyt-Tfmpmd Hx Patient Social History Alcohol Use: Denies Use Recreational Drug Use: No Smoking Status: Never a Smoker 2nd Hand Smoke Exposure: No Recent Foreign Travel: No Contact w/Someone Who Travel: No Recent Hopitalizations: Yes (SEP 2017) Immunizations Up To Date Tetanus Booster (TDap): Unknown Date of Pneumonia Vaccine: Aug 28, 2012 Seasonal Allergies Seasonal Allergies: No Past Medical History Surgeries: Yes (SEVERAL) Appendectomy, Eye Surgery, Hysterectomy, Joint Replacement Respiratory: Yes Sleep Apnea Currently Using CPAP: Yes (with oxygen) Currently Using BIPAP: No Cardiac: Yes Coronary Artery Disease, Hypertension Neurological: No Dementia 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 Disorders: No Female 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 Disorders: Denies Sexually Transmitted Disease: No HIV/AIDS: No Genitourinary: Yes Kidney Infection, Bladder Infection, Renal Failure, UTI-Chronic Gastrointestinal: No Gastroesophageal Reflux, Polyps, Hiatal Hernia Musculoskeletal: No Arthritis Endocrine: Yes (THYROID DISEASE) Diabetes, Insulin dep HEENT: Yes Cataract Loss of Vision: Denies Hearing Impairment: Denies Cancer: No Psychosocial: Yes Anxiety, Depression Integumentary: No Recent Skin Changes Blood Disorders: Yes (ANEMIA) Adverse Reaction/Blood Tranf: No Family Medical History Arthritis Cardiovascular disease Diabetes mellitus Hypertension Diabetes, Hypertension Physical Exam Vital Signs Vital Signs - First Documented 05/02/18 22:40 Temp 98.5 Pulse 76 Resp 18 B/P (MAP) 141/62 (88) Pulse Ox 96 O2 Delivery Room Air Capillary Refill : Height, Weight, BMI Height: 5'7.00" Weight: 179lbs. 0.0oz. 81.049910nt; 28.0 BMI Method:Stated General Appearance: WD/WN, no apparent distress HEENT: PERRL/EOMI, pharynx normal Cardiovascular: normal peripheral pulses, regular rate, rhythm, other (mild edema left lower extremity) Respiratory: chest non-tender, lungs clear, normal breath sounds, no respiratory distress, no accessory muscle use Ankles: left ankle pain, left ankle soft tissue tenderness, left ankle swelling , left ankle other (erythema and heat) Feet: left foot other (unstageable ulcers on the medial distal edge of the left foot with a small amount of leading that is fairly hemostatic at this time. There are some other unstageable ulcers on the lateral edge of the foot and heel as well that are covered over with an eschar. There is disc contiguous eschar over the major ulcer on the medial ball of the foot where there is minimal is bleeding.) Neurologic/Tendon: normal sensation, normal motor functions, normal tendon functions, responds to pain Neurologic/Psychiatric: alert, normal mood/affect, oriented x 3 Skin: rash (erythema and heat as well as soft tissue tenderness and swelling over the left ankle) Progress/Results/Core Measures Results/Orders My Orders Orders - SEN DELONG Ankle, Left, 3 Views (05/02/18 22:51) Vital Signs/I&O 05/02/18 22:40 Temp 98.5 Pulse 76 Resp 18 B/P (MAP) 141/62 (88) Pulse Ox 96 O2 Delivery Room Air Progress Progress Note : Time: 23:53 Progress Note Patient has requested a boot as opposed to a splint and will follow-up with the core winding operator Friday. Minor silver cautery of an area that was bleeding on her pressure ulcer up by the ball of her medial left foot was successful in stopping the bleeding. There is still some weeping edema from all the wounds. Diagnostic Imaging Diagonstic Imaging: Xray Plain Films/CT/US/NM/MRI: ankle (L) Comments Medial malleolus is displaced, fracture. Possible fracture in the fibular head versus nonspecific lucency. Hardware seen. Previous x-ray from August, 8 months ago immense traits no evidence of fracture. There is no calcification around the fracture to demonstrate that it is subacute. Reviewed: Reviewed by Me Departure Impression Primary Impression: Ankle fracture, left Qualified Codes: S82.892A - Other fracture of left lower leg, initial encounter for closed fracture Additional Impressions: Cellulitis Qualified Codes: L03.116 - Cellulitis of left lower limb Pressure ulcer Qualified Codes: L89.890 - Pressure ulcer of other site, unstageable Disposition: 01 HOME, SELF-CARE Condition: Stable Departure-Patient Inst. Decision time for Depature: 23:53 Referrals: FELICITA CEDEÑO MD (PCP/Family) Primary Care Physician Patient Instructions: Ankle Fracture (DC) Add. Discharge Instructions: Keep your ankle elevated above the level of your heart when possible. Wear the boot for splinted support. Friday morning call your core winding operator to request follow -up. If you have pain not treated by the Tylenol or Motrin then you can use tramadol 1 tablet every 6 hours. Nonweightbearing left ankle. All discharge instructions reviewed with patient and/or family. Voiced understanding. Scripts Tramadol HCl (Tramadol HCl) 50 Mg Tablet 50 MG PO Q6H PRN for PAIN, #20 TAB 0 Refills Prov: SEN DELONG 05/02/18 Copy Copies To 1: SANJUANA ANNE DPM, TITUS J May 02, 2018 22:57
[2018-05-02] MEDS ORDERED: TRAM50TA2 PO (23:55)
[2018-05-02] MEDS ORDERED: CEPH500T PO (23:57)
[2018-05-03 00:04] VITALS: BP 153/68
--- NOTE | 2018-05-03 06:55 | Diagnostic Imaging Report ---
INDICATION: Left foot wound. COMPARISON: 09/02/2017 FINDINGS: 3 radiographic views of the left ankle were obtained. There is acute longitudinal oriented fracture involving the medial malleolus. There is mild proximal subluxation of the distal fracture fragment. Patient is status post interval surgical ankylosis of the mid and hindfoot. There are advanced erosive changes to the talus. No unexpected radiopaque foreign bodies are seen. Note is also made of moderate soft tissue swelling. IMPRESSION: 1. Acute fracture of the medial malleolus. 2. Interval surgical fusion of the left foot with interval advance erosive changes to the talus. Correlation with Charcot joint is recommended. Dictated by: Dictated on workstation # [id number]
[2018-05-06] MEDS ORDERED: TRAM50TA2 PO (16:59)
== END 2018-05-03 | disposition home or self-care (01) ==
LOC: EDUNIT# 22:32 → ER 22:33
DX: S82.52XA Displaced fracture of medial malleolus of left tibia, initial encounter for closed fracture (principal); L03.116 Cellulitis of left lower limb; E11.9 Type 2 diabetes mellitus without complications; L89.890 Pressure ulcer of other site, unstageable; G47.30 Sleep apnea, unspecified; I25.10 Atherosclerotic heart disease of native coronary artery without angina pectoris; I10 Essential (primary) hypertension; F03.90 Unspecified dementia, unspecified severity, without behavioral disturbance, psychotic disturbance, mood disturbance, and anxiety; K21.9 Gastro-esophageal reflux disease without esophagitis; F41.9 Anxiety disorder, unspecified; F32.9 Major depressive disorder, single episode, unspecified; D64.9 Anemia, unspecified; Z82.49 Family history of ischemic heart disease and other diseases of the circulatory system; Z86.010 Personal history of colon polyps; Z87.440 Personal history of urinary (tract) infections; Z87.448 Personal history of other diseases of urinary system; Z88.2 Allergy status to sulfonamides; Z88.7 Allergy status to serum and vaccine; Z79.51 Long term (current) use of inhaled steroids; Z79.82 Long term (current) use of aspirin; Z79.4 Long term (current) use of insulin; Z90.710 Acquired absence of both cervix and uterus; Z90.89 Acquired absence of other organs; X58.XXXA Exposure to other specified factors, initial encounter
CPT/HCPCS: 73610

== ENCOUNTER → 2018-05-08 | Outpatient (CLI) | payer MEDICARE, MEDICAID ==
[~2018-05-08] MED LIST changes: +ALBU2.5V4 NEB; +CEPH500T PO
== END ==
LOC: WOUNDCARE 10:42
PROVIDERS: ATTEND Surgery
DX: L89.620 Pressure ulcer of left heel, unstageable (principal); E11.621 Type 2 diabetes mellitus with foot ulcer; I70.244 Atherosclerosis of native arteries of left leg with ulceration of heel and midfoot; L97.422 Non-pressure chronic ulcer of left heel and midfoot with fat layer exposed; E11.622 Type 2 diabetes mellitus with other skin ulcer; L97.222 Non-pressure chronic ulcer of left calf with fat layer exposed; M14.672 Charcot's joint, left ankle and foot
CPT/HCPCS: 99213

== ENCOUNTER → 2018-05-13 | Outpatient (CLI) | payer MEDICARE, MEDICAID ==
[~2018-05-13] VITALS: Ht 170.2 cm; Wt 83.1 kg
== END | disposition home or self-care (01) ==
LOC: PREOP 15:37
PROVIDERS: ATTEND Orthopaedic Surgery
DX: Z01.818 Encounter for other preprocedural examination (principal)
CPT/HCPCS: 87081

== ENCOUNTER → 2018-05-15 | Outpatient (CLI) | payer MEDICARE, MEDICAID | LOC: WOUNDCARE 09:21 | PROVIDERS: ATTEND Surgery | DX: L89.620 Pressure ulcer of left heel, unstageable (principal); E11.621 Type 2 diabetes mellitus with foot ulcer; I70.244 Atherosclerosis of native arteries of left leg with ulceration of heel and midfoot; L97.422 Non-pressure chronic ulcer of left heel and midfoot with fat layer exposed; E11.622 Type 2 diabetes mellitus with other skin ulcer; L97.222 Non-pressure chronic ulcer of left calf with fat layer exposed; M14.672 Charcot's joint, left ankle and foot | CPT/HCPCS: 99213 ==

== ENCOUNTER 2018-05-19 11:51 | Inpatient (IN) | payer MEDICARE, MEDICAID ==
[~2018-05-19] VITALS: Ht 170.2 cm; Wt 83.1 kg
[~2018-05-19 11:51] MED LIST changes: -ALBU2.5V4 NEB
[2018-05-19] MEDS ORDERED: CLINDAMYCIN 900 MG/50 ML IVPB 50 ML IV ONE ×2 (12:41→13:45)
[2018-05-19] MEDS ORDERED: GENTAMICIN 40 MG/ML 2 ML INJ SDV ONE (12:50)
[2018-05-19] MEDS ORDERED: MIDAZOLAM 2 MG/2 ML (VERSED) VIAL ONE (13:11)
[2018-05-19] MEDS ORDERED: LIDOCAINE PF 2% 5 ML (XYLOCAINE) VIAL ONE ×2 (13:32→13:40)
[2018-05-19] MEDS: LACTATED RINGERS 1,000 ML IV PRN ×2 (13:34→15:37)
[2018-05-19] MEDS ORDERED: BUPIVACAINE 0.5% 30 ML (SENSORCAINE) VIAL ONE (13:34)
[2018-05-19] MEDS ORDERED: ONDANSETRON 4 MG/2 ML (SDV) Z0FRAN ONE ×2 (13:40→15:51)
[2018-05-19] MEDS ORDERED: proPOfol 200 MG/20 ML (DIPRIVAN) VIAL IV ONE (13:40)
[2018-05-19] MEDS ORDERED: SEVOFLURANE (ULTANE) 15 ML INHAL SOLN ONE ×3 (13:40→16:43)
[2018-05-19] MEDS ORDERED: ROCURONIUM 10 MG/ML 5 ML SYRINGE IV ONE (13:40)
[2018-05-19] MEDS ORDERED: fentaNYL INJECTION 100 MCG/2 ML AMP ONE (13:41)
--- NOTE | 2018-05-19 14:38 | Progress Note-Pre Operative ---
Pre-Operative Progress Note H&P Reviewed The H&P was reviewed, patient examined and no changes noted. Date Seen by Provider: May 19, 2018 Time Seen by Provider: 14:37 Date H&P Reviewed: May 19, 2018 Time H&P Reviewed: 14:40 Pre-Operative Diagnosis: Ischemic Necrosis left leg Charcot foot left ARABELLA AGUILERA DO May 19, 2018 2:38 pm
[2018-05-19] MEDS ORDERED: BISACODYL 10 MG SUPP (DULCOLAX) PR PRN (14:45)
[2018-05-19] MEDS ORDERED: ONDANSETRON 4 MG/2 ML (SDV) Z0FRAN IVP PRN ×2 (14:45→16:30)
[2018-05-19] MEDS ORDERED: D5 1/2 NS 1000 ML IV SOLUTION 1,000 ML IV SCH (14:45)
[2018-05-19] MEDS ORDERED: PROMETHAZINE INJ 25 MG/ML (PHENERGAN) AMP IVP PRN (14:45)
[2018-05-19] MEDS ORDERED: morphine INJ 10 MG/ML 1ML (SYR OR VIAL) IVP PRN (14:45)
[2018-05-19] MEDS ORDERED: PHENYLEPHRINE 100 MCG/ML 10 ML (ANESTHESIA) SYR ONE ×2 (15:32→16:31)
[2018-05-19] MEDS ORDERED: morphine INJ 10 MG/ML 1ML (SYR OR VIAL) ONE (15:51)
[2018-05-19] MEDS ORDERED: GLYCOPYRROLATE 0.2 MG/ML (ROBINUL) 2 ML VIAL ONE (16:07)
[2018-05-19] MEDS ORDERED: NEOSTIGMINE 1 MG/ML 5 ML SYRINGE ONE (16:07)
[2018-05-19] MEDS ORDERED: fentaNYL INJECTION 100 MCG/2 ML AMP IVP ONE (16:30)
[2018-05-19] MEDS ORDERED: MEPERIDINE (DEMEROL) INJ 50 MG/ML IVP ONE (16:30)
[2018-05-19] MEDS ORDERED: morphine INJ 10 MG/ML 1ML (SYR OR VIAL) IVP ONE (16:30)
[2018-05-19] MEDS ORDERED: NEO/POLY/BAC (NEOSPORIN) OINT 15 GM TUBE ONE (16:39)
--- NOTE | 2018-05-19 16:56 | Progress Note-Post Operative ---
Post-Operative Progess Note Surgeon (s)/Production Controller (s) Surgeon ARABELLA AGUILERA DO Production Controller: DIONISIO BOWEN APRN, METER AND REGULATOR [employer] SUPERVISOR-C Pre-Operative Diagnosis Ischemic Necrosis left leg Charcot foot left Post-Operative Diagnosis SAME Procedure & Operative Findings Date of Procedure 05/19/18 Procedure Performed/Findings UNEVENTFUL BKA Anesthesia Type GENERAL WITH US GUIDED FEMORAL BLOCK Estimated Blood Loss Estimated blood loss (mL): 600 Specimens/Packing Specimens Removed LEFT LOWER LEG AND FOOT ARABELLA AGUILERA DO May 19, 2018 4:55 pm
[2018-05-19 17:50] VITALS: BP 98/52
[2018-05-19] MEDS: D5 1/2 NS 1000 ML IV SOLUTION 1,000 ML IV SCH (18:52)
[2018-05-19] MEDS ORDERED: CATHETER FLUSH 10 ML SYR IV PRN (19:00)
[2018-05-19 19:35] VITALS: BP 108/54
--- NOTE | 2018-05-19 21:13 | OPERATIVE REPORT ---
DATE OF SERVICE: 05/19/2018 PREOPERATIVE DIAGNOSES: 1. Ischemic necrosis, left leg. 2. 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 POSTOPERATIVE DIAGNOSES: 1. Ischemic necrosis, left leg. 2. 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 PROCEDURE: Below the knee amputation, left leg. SURGEON: Arabella Aguilera DO TYRE RETREADER: JOSE Garcia. SURGICAL TRACK SURFACING MACHINE OPERATOR DUTIES: Lev Jimenez, surgical assistant, was utilized throughout the entire procedure for the patient positioning, soft tissue retraction, cauterization of blood vessels, tying of the blood vessels, wound closure of the amputation site, dressing application and the patient transfer. ANESTHESIA: General with femoral nerve block. ESTIMATED BLOOD LOSS: 600 mL. INDICATIONS AND FINDINGS: The patient is an 83-year-old female, who was seen with chief complaint of severe left foot pain, left foot swelling and erythema. The patient has a longstanding history of diabetes mellitus. The patient had developed a Charcot foot. She had actually developed a tarsometatarsal dislocation that had been repaired by another surgeon with a near complete dislocation of her forefoot in reference to her mid foot. This surgery was successful. The patient began having progressive movement of the deep internal fixation in her foot with the screws migrating out of her mid foot with secondary wound healing problems. The patient was treated aggressively with the wound care clinic. On progressive x-rays, the patient demonstrated avascular necrosis of her talus and complete collapse of her talus. She developed significant erythema and cellulitis of the left leg with ischemic changes. The patient was taken to surgery where a below the knee amputation was performed without complication on the left. PROCEDURE IN DETAIL: The patient was seen by anesthesia preoperatively and under ultrasound guidance, a femoral nerve block was performed on the left to decrease postop pain and decrease the amount of medication required during the surgical procedure. The patient was transferred to the operating room where general inhalation anesthetic was administered. A well-padded pneumatic tourniquet was placed about the upper aspect of the left thigh. This was not used throughout the procedure. A Betadine prep and drape of the left lower extremity was performed. The foot was then separately wrapped after being prepped from the operating field. The proposed surgical incisions were then marked on the skin. A 12 cm from the joint line was identified on the skin and a transverse incision was made anteriorly with a posterior incision to create a posterior flap, carried down to an area where she had an additional open wound from a boot that she had been wearing on the posterolateral aspect of the distal calf. Incision was deepened. Electrocautery was used to divide the periosteum over the anterior surface of the tibia and the lateral musculature with the vessels and nerves identified with them cauterized and tied off. The oscillating saw was then used to divide the tibia. Additional subperiosteal dissection was used to expose the fibula, which was divided 1 cm with the oscillating saw proximal to the tibia. The amputation knife was then used to remove the soft tissues posterior to the tibia and fibula down to the level of the flap. Vessels were identified, bluntly dissected, tied and cauterized and divided. The posterior flap was then developed with the amputation knife to allow transfer of this posteriorly onto the anterior surface of the tibia. The wound was irrigated extensively with normal saline solution. Attention was directed to the distal tibia with the oscillating saw used to contour the end of the tibia over the anteromedial aspect further smoothed with a rasp. The wound again was irrigated with normal saline solution. The muscle of the posterior flap with the fascia was then reapproximating the fascia anteriorly at the knee. This was performed with multiple interrupted chprih-au-lhwit sutures of #1 Vicryl. The subcutaneous tissues were then closed with multiple interrupted sutures of 0 Vicryl. The skin was then closed with multiple vertical mattress sutures of 3-0 nylon with a loose running suture placed at the amputation site as well. An Adaptic Neosporin bulky dressing was placed about the amputation stump. This was well padded and Elastoplast tape was used to secure the bandage to the Cj wrap beneath itself. A Microfoam tape was used to secure the bandage to the anterior proximal thigh. The patient was awakened and was transported to postoperative recovery with anesthesia personnel present in satisfactory condition. Job ID: [id number] DocumentID: [id number] Dictated Date: 05/19/2018 17:13:09 Cow Tester Date: 05/19/2018 21:13:09 Dictated By: ARABELLA AGUILERA DO
[2018-05-19] MEDS ORDERED: CLINDAMYCIN 900 MG/50 ML IVPB 50 ML IV SCH (22:00)
[2018-05-20] VITALS (13 sets, daily range): BP systolic 116–143; BP diastolic 57–65
[2018-05-20] MEDS: HYDROcodone/APAP 10 MG/325 MG (LORTAB) TAB PO PRN ×2 (03:58→14:30)
[2018-05-20 05:42] LABS: MEAN PLATELET VOLUME 9.6 FL (7.4-10.4); RED BLOOD COUNT 2.23 10^6/uL (4.35-5.85); RED CELL DISTRIBUTION WIDTH 18.6 % (10.0-14.5); WHITE BLOOD COUNT 9.8 10^3/uL (4.3-11.0)
[2018-05-20 05:56] LABS: CALCIUM 8.8 MG/DL (8.5-10.1); CREATININE SERUM 1.15 MG/DL (0.60-1.30); POTASSIUM 4.2 MMOL/L (3.6-5.0)
--- NOTE | 2018-05-20 06:54 | Anesthesia-General Post-Op ---
General Patient Condition Mental Status/LOC: Same as Preop Cardiovascular: Satisfactory Nausea/Vomiting: Absent Respiratory: Satisfactory Pain: Controlled Complications: Absent Post Op Complications Complications None Follow Up Care/Instructions Patient Instructions None needed. Anesthesia/Patient Condition Patient Condition Patient is doing well, no complaints, stable vital signs, no apparent adverse anesthesia problems. No complications reported per nursing. SY SAHU CRNA May 20, 2018 06:54
--- NOTE | 2018-05-20 07:50 | Progress Note (SOAP) ---
Subjective Date Seen by a Provider: May 20, 2018 Time Seen by a Provider: 07:46 Subjective/Events-last exam Currently no complaints, POD 1 s/p left BKA Objective Exam Vital Signs Date Time Temp Pulse Resp B/P (MAP) Pulse Ox O2 Delivery O2 Flow Rate FiO2 05/20/18 04:00 97.0 75 20 125/58 (80) 98 NIV CPAP 05/20/18 00:00 97.1 68 20 132/60 (84) 99 NIV CPAP 05/19/18 19:35 95.7 74 16 108/54 (72) 97 Room Air 05/19/18 17:50 95.9 73 16 98/52 (67) 93 Room Air I & O 05/20/18 07:00 Intake Total 1860 ml Output Total 1400 ml Balance 460 ml Capillary Refill : General Appearance: No Apparent Distress Extremity: Normal Capillary Refill, Normal Inspection, No Pedal Edema Neurologic/Psychiatric: Alert, Oriented x3, Normal Mood/Affect Skin: Normal Color, Warm/Dry (LLE n/v intact to stump, femoral block still working with sensory loss, dressing is clean and dry without drainage. ) Results Lab Laboratory Tests 05/20/18 05:17: White Blood Count 9.8, Red Blood Count 2.23L, Hemoglobin 6.0#*L, Hematocrit 19*L , Mean Corpuscular Volume 86, Mean Corpuscular Hemoglobin 27, Mean Corpuscular Hemoglobin Concent 31L, Red Cell Distribution Width 18.6H, Platelet Count 138, Mean Platelet Volume 9.6, Sodium Level 131L, Potassium Level 4.2, Chloride Level 102, Carbon Dioxide Level 20L, Anion Gap 9, Blood Urea Nitrogen 14, Creatinine 1.15, Estimat Glomerular Filtration Rate 45, BUN/Creatinine Ratio 12 , Glucose Level 223H, Calcium Level 8.8 Assessment/Plan Assessment/Plan Assess & Plan/Chief Complaint A: POD 1 s/p left BKA acute blood loss anemia ischemic necrosis left foot with charcot deformity hyponatremia P: Transfuse 2 units. Hospitalist to manage anemia and hyponatremia. Plan on discharge friday to home. Will do dressing change friday prior to discharge. DIONISIO BOWEN APRN May 20, 2018 7:50 am
[2018-05-20] MEDS: D5 1/2 NS 1000 ML IV SOLUTION 1,000 ML IV SCH (07:53)
[2018-05-20] MEDS ORDERED: ACETAMINOPHEN 500 MG TAB (TYLENOL) PO ONE (08:00)
[2018-05-20] MEDS ORDERED: NS IV 500 ML 500 ML IV SCH (08:00)
[2018-05-20] MEDS ORDERED: diphenhydrAMINE 25 MG TAB (BENADRYL) PO ONE (08:00)
[2018-05-20] MEDS ORDERED: NS IV 500 ML 500 ML ONE (08:04)
[2018-05-20] MEDS: ENOXAPARIN 40 MG/0.4 ML (LOVENOX) SYR SC SCH (10:56)
[2018-05-20] MEDS: ASPIRIN E.C. 325 MG (ECOTRIN) TABLET PO SCH (10:56)
[2018-05-20] MEDS ORDERED: FUROSEMIDE 40 MG/4 ML INJ (LASIX) IVP NR ×2 (11:00→16:00)
--- NOTE | 2018-05-20 13:18 | Consultation-Hospitalist ---
HPI History of Present Illness: HPI/Chief Complaint Pt is a 83yoCF IDDMII, HTN, PAD, Charcot Foot, and SDH known to me from multiple admissions who was admitted due for a BKA under the care of Dr Stewart. She denies any complaints today. She is brushing her teeth with the care of OT. She denies any pain at this time. I am consulted for medical management of her diabetes. I discussed her care with Dr Stewart's LICENSED MASSAGE THERAPIST Lev Jimenez. Plan is for dressing change later this week and then hopefully home with family care. Source: patient Date Seen 05/20/18 Attending Physician Nikolai Stewart John D MD Referring Physician Date of Admission May 19, 2018 at 11:51 am Home Medications & Allergies Home Medications Reviewed patient Home Medication Reconciliation performed by pharmacy medication reconciliations pump technician and/or nursing. Patients Allergies have been reviewed. Allergies Allergies Coded Allergies Penicillins (Verified Allergy, Unknown, Pt has received Ceftriaxone in the past, 05/13/18) influenza virus vaccine, specific (Verified Adverse Reaction, Unknown, Not allergic just won't take Flu vaccine, 05/13/18) Past Cpsquhl-Ciaalk-Lpeaxg Hx Past Med/Social Hx: Reviewed Nursing Past Med/Soc Hx Patient Social History Alcohol Use: Denies Use Recreational Drug Use: No Smoking Status: Never a Smoker 2nd Hand Smoke Exposure: No Physical Abuse Screen: No Sexual Abuse: No Recent Foreign Travel: No Contact w/other who traveled: No Recent Hopitalizations: Yes Recent Infectious Disease Expo: No Immunizations Up To Date Tetanus Booster (TDap): Unknown Date of Pneumonia Vaccine: Aug 28, 2012 Seasonal Allergies Seasonal Allergies: No Past Medical History Surgeries: Appendectomy, Eye Surgery, Hysterectomy, Joint Replacement, Orthopedic Respiratory: Sleep Apnea Currently Using CPAP: Yes (with oxygen) Currently Using BIPAP: No Cardiac: Coronary Artery Disease, High Cholesterol, Hypertension Neurological: Dementia SDH 09/03/17 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: No Sexually Transmitted Disease: No HIV/AIDS: No Female 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 Disorders: Denies Menopausal Genitourinary: Kidney Infection, Bladder Infection, Renal Failure, UTI-Chronic Gastrointestinal: Gastroesophageal Reflux, Polyps, Hiatal Hernia Musculoskeletal: Arthritis Endocrine: Diabetes, Insulin dep, Hypothyroidsim HEENT: Cataract Loss of Vision: Bilateral Hearing Impairment: Denies Psychosocial: Anxiety, Depression Skin/Integumentary: Recent Skin Changes History of Blood Disorders: Yes (ANEMIA) Adverse Reaction to Blood Herrera: No Family History Arthritis Cardiovascular disease Diabetes mellitus Hypertension Diabetes, Hypertension Review of Systems Constitutional: No chills, No fever EENTM: No blurred vision, No double vision, No nose congestion, No throat pain Respiratory: No cough, No dyspnea on exertion, No short of breath Cardiovascular: No chest pain, No edema, No palpitations Gastrointestinal: No abdominal pain, No constipation, No diarrhea, No nausea, No vomiting Genitourinary: No dysuria, No frequency Musculoskeletal: No joint pain, No muscle pain Skin: No lesions, No rash Psychiatric/Neurological: Denies Headache, Denies Numbness, Denies Tingling Physical Exam Physical Exam Vital Signs Vital Signs - First Documented 05/19/18 17:50 Temp 95.9 Pulse 73 Resp 16 B/P (MAP) 98/52 (67) Pulse Ox 93 O2 Delivery Room Air Capillary Refill : Height, Weight, BMI Height: 5'7.00" Weight: 183lbs. 3.2oz. 83.241251st; 28.7 BMI Method:Stated General Appearance: No Apparent Distress, Chronically ill Respiratory: Lungs Clear, No Respiratory Distress Cardiovascular: Regular Rate, Rhythm, No Murmur Gastrointestinal: Normal Bowel Sounds, Non Tender, Soft Extremity: Other (left leg warpped in surgical dressing, CDI) Neurologic/Psychiatric: Alert, Oriented x3, Normal Mood/Affect Results Results/Procedures Labs Laboratory Tests 05/20/18 05:17 Patient resulted labs reviewed. Assessment/Plan Assessment and Plan Assess & Plan/Chief Complaint s/p left BKA Diagnosis/Problems Diagnosis/Problems (1) Charcot foot due to diabetes mellitus Status: Chronic Assessment & Plan: s/p left BKA Management per primary (2) Diabetes Status: Chronic Assessment & Plan: SSI added Resume home insulin when med rec available Qualifiers: Diabetes mellitus type: type 2 Diabetes mellitus intermodal customer service insulin use: with intermodal customer service use Diabetes mellitus complication status: with circulatory complication Diabetes mellitus complication detail: with other circulatory complications Qualified Codes: E11.59 - Type 2 diabetes mellitus with other circulatory complications; Z79.4 - half-way (current) use of insulin (3) Essential (primary) hypertension Status: Chronic Assessment & Plan: Well controlled (4) Anemia Status: Chronic Assessment & Plan: Chronic anemia s/p 2 units this AM Trend Qualifiers: Anemia type: other cause Other causes of anemia: other cause, not classified Qualified Codes: D64.89 - Other specified anemias (5) Hypothyroidism Status: Chronic Assessment & Plan: Resume home meds Qualifiers: Hypothyroidism type: acquired Qualified Codes: E03.9 - Hypothyroidism, unspecified SUHA TAYLOR MD May 20, 2018 1:18 pm
[2018-05-20] MEDS ORDERED: INSU100V16 SQ (14:51)
[2018-05-20] MEDS ORDERED: OMG1KC PO (14:51)
[2018-05-20] MEDS ORDERED: ALBU2.5V4 NEB (14:51)
--- NOTE | 2018-05-20 14:55 | Physical Therapy Evaluation ---
PT Evaluation-General Medical Diagnosis Admission Date May 19, 2018 at 11:51 Medical Diagnosis: left BKA Onset Date: May 19, 2018 Therapy Diagnosis Therapy Diagnosis: impaired mobility, strength, endurance, ROM Height/Weight Height (Feet): 5 Height (Inches): 7.00 Weight (Pounds): 183 Weight (Ounces): 3.2 Precautions Precautions/Isolations: Fall Prevention, Standard Precautions, Pressure Ulcer Weight Bear Status Right Lower Extremity: Right Full Weight Bearing Left Lower Extremity: Left Non Weight Bearing Referral Physician: Nikolai Stewart DO Reason for Referral: Evaluation/Treatment Medical History Pertinent Medical History: CAD, COPD, DM, GERD, HTN, Hypothroidism, Neuropathy , Renal Insufficiency Additional Medical History Past Medical History Surgeries: Appendectomy, Eye Surgery, Hysterectomy, Joint Replacement, Orthopedic Respiratory: Sleep Apnea Currently Using CPAP: Yes (with oxygen) Currently Using BIPAP: No Cardiac: Coronary Artery Disease, High Cholesterol, Hypertension Neurological: Dementia SDH 09/03/17 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: No Sexually Transmitted Disease: No HIV/AIDS: No Female 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 Disorders: Denies Menopausal Genitourinary: Kidney Infection, Bladder Infection, Renal Failure, UTI-Chronic Gastrointestinal: Gastroesophageal Reflux, Polyps, Hiatal Hernia Musculoskeletal: Arthritis Endocrine: Diabetes, Insulin dep, Hypothyroidsim HEENT: Cataract Loss of Vision: Bilateral Hearing Impairment: Denies Psychosocial: Anxiety, Depression Social History Home: Single Level Current Living Status: Children Entry Into Home: Ramp Patient is living with her daughter. Prior/Core FIM Prior Level of Function Functional [place] Measure 0=Not Assessed/NA 4=Minimal Assistance 1=Total Assistance 5=Supervision or Setup 2=Maximal Assistance 6=Modified [place] 3=Moderate Assistance 7=Complete IndependenceIRFPAI Quality Coding Scale 6 Independent with activity with or without an assistive device 5 Patient requires set up or clean up by helper. Patient completes activity by themselves 4 Supervision or touching assist (CGA). [place] provide cues , steadying assist 3 The helper provides less than half the effort to complete the activity 2 The helper provides more than half the effort to complete the activity 1 Dependent. The helper does all the effort to complete an activity 7 Patient refused to complete or attempt activity 9 The patient did not perform the activity before the current illness or injury 88 Not attempted due to Medical conditions or safety concerns Bed Mobility: 7 Transfers (B,C,W/C) (FIM): 7 Gait: 7 Before injury patient was not using an assistive device. PT Evaluation-Current Subjective Patient in bed pre tx, agrees to PT, has pain of 7/10 in left leg. Pt/Family Goals to be independent at home Objective Patient Orientation: Person, Confused, Situation Attachments: Alejandra Catheter, IV ROM/Strength ROM Lower Extremities RLE WNL, LLE knee flexion/extension restricted due to recent surgery and bandage Strength Lower Extremities RLE (hip flexion 3/5, knee flexion 4/5, knee extension 4/5, dorsiflexion 4+/5), LLE not tested Integumentary/Posture Bladder Incontinence: Alejandra Cath Neuromuscular (Tone, Coordination, Reflexes) NT Sensory Vision: Wears Glasses Hearing: Functional Sensation Right Lower Extremit: Intact Sensation Left Lower Extremity: Intact Transfers Functional [place] Measure 0=Not Assessed/NA 4=Minimal Assistance 1=Total Assistance 5=Supervision or Setup 2=Maximal Assistance 6=Modified [place] 3=Moderate Assistance 7=Complete [place] Transfers (B, C, W/C) (FIM): 3 Scootin Rollin Supine to/from Sit: 5 Sit to/from Stand: 3 Patient needs mod assist to stand from an elevated surface using a rolling walker, cues for safety and hand placement. Patient gets a little light headed upon sitting from supine but it clears quickly. Gait Mode of Locomotion: Both Anticipated Mode of Locomotion: Both Gait (FIM): 1 Distance: 1' Gait Level of Assist: 4 Gait Persons Needed: 1 Gait Assistive Device: FWW Comments/Gait Description Patient was able to advance her right foot a few times just inches at a time. She was not able to get her foot to clear the floor. After inching her foot forward a few times, patient became tired and needed to sit, she was able to not inch backward but wiggle her foot side to side to slide it back a few inches so she could sit. Balance Sitting Static: Normal Sitting Dynamic: Normal Standing Static: Fair Standing Dynamic: Fair Treatment LLE AROM x15 (hip flex/abd, knee flex/ext) Assessment/Needs Patient has impaired mobility, strength, endurance, ROM post left TKA. She is a high fall risk. Rehab Potential: Guarded PT Short Term Goals Short Term Goals Time Frame: May 27, 2018 Transfers (B,C,W/C) (FIM): 4 Gait (FIM): 1 Gait Distance Comment: 10' Gait Level of Assist: 4 Gait Assistive Device: FWW PT Plan Problem List Problem List: Activity Tolerance, Functional Strength, Safety, Balance, Gait, Transfer, Bed Mobility, ROM Treatment/Plan Treatment Plan: Continue Plan of Care Treatment Plan: Bed Mobility, Education, Functional Activity Emmy, Functional Strength, Gait, Safety, Therapeutic Exercise, Transfers Treatment Duration: May 27, 2018 Frequency: 11 times per week Estimated Hrs Per Day: .25 hour per day (15-30) Patient and/or Family Agrees t: Yes Safety Risks/Education Patient Education: Gait Training, Transfer Techniques, Reviewed Precautions, Correct Positioning, Disease Process, Safety Issues Teaching Recipient: Patient Teaching Methods: Demonstration, Discussion Response to Teaching: Reinforcement Needed Discharge Recommendations Plan Patient will perform bed mobility and transfer training, balance and endurance training, functional strengthening, gait training, and education, to improve functional mobility and independence at home. Therapy D/C Recommendations: Home w/ Family Support, Detention (TCU/NH) Time/GCodes Time In: 1435 Time Out: 1455 Total Billed Treatment Time: 20 Total Billed Treatment 1 visit EVM 20' YELENA HOU PT May 20, 2018 14:54
[2018-05-20] MEDS ORDERED: ARTIFICAL TEARS 0.4 ML UNIT DOSE (REFRESH PLUS) OU PRN (15:30)
--- NOTE | 2018-05-20 15:30 | Occupational Therapy Eval ---
OT Evaluation-General/PLF Medical Diagnosis Admission Date May 19, 2018 at 11:51 Medical Diagnosis: left BKA Onset Date: May 19, 2018 Therapy Diagnosis Therapy Diagnosis: Decreased ADL skills Height/Weight Height (Feet): 5 Height (Inches): 7.00 Weight (Pounds): 183 Weight (Ounces): 3.2 Precautions Precautions/Isolations: Fall Prevention, Standard Precautions, Pressure Ulcer Safety Interventions: None Referral Physician: Nikolai Stewart DO Referral Reason: Activity Tolerance, Self Care, Evaluation/Treatment, Strengthening/ROM Medical History Pertinent Medical History: CAD, COPD, DM, GERD, HTN, Hypothroidism, Neuropathy , Renal Insufficiency Reviewed History: Yes Social History Home: Single Level Current Living Status: Children Entry Into Home: Ramp ADL-Prior Level of Function Functional [place] Measure 0=Not Assessed/NA 4=Minimal Assistance 1=Total Assistance 5=Supervision or Setup 2=Maximal Assistance 6=Modified [place] 3=Moderate Assistance 7=Complete [place] ADL PLOF Comments Pt. was receiving caregiver assistance and assist from daughter for ADL skills. Pt. sleeps in hospital bed in living room. Daughter and son in law sleep in recliners in living room. Self Care Self Care: (Code the patient's need for assistance with bathing, dressing, using the toilet, or eating prior to the current illness, exacerbation, or injury.) Functional Cognition Functional Cognition: (Code the patient's need for assistance with planning regular tasks, such as shopping or remembering to take medicaiton prior to the current illness, exacerbation, or injury.) DME/Equipment Comments Pt. has a wheelchair, walker, ramp, hospital bed. OT Current Status Subjective Pt. does not report pain level. Pt. getting blood when OT entered room but nursing states okay for OT to see pt. Appearance Pt. in bed. Agrees to work with OT. Mental Status/Objective Patient Orientation: Person, Place Current Glasses/Contacts: Yes Hand Dominance: Right Upper Extremity ROM WFL ADL-Treatment Functional [place] Measure 0=Not Assessed/NA 4=Minimal Assistance 1=Total Assistance 5=Supervision or Setup 2=Maximal Assistance 6=Modified [place] 3=Moderate Assistance 7=Complete IndependenceIRFPAI Quality Coding Scale 6 Independent with activity with or without an assistive device 5 Patient requires set up or clean up by helper. Patient completes activity by themselves 4 Supervision or touching assist (CGA). [place] provide cues , steadying assist 3 The helper provides less than half the effort to complete the activity 2 The helper provides more than half the effort to complete the activity 1 Dependent. The helper does all the effort to complete an activity 7 Patient refused to complete or attempt activity 9 The patient did not perform the activity before the current illness or injury 88 Not attempted due to Medical conditions or safety concerns Grooming (FIM): 5 (Set up to brush teeth, hair, and wash face.) Transfers (B, C, W/C) (FIM): 4 (Min assist to transfer supine-sit. Sat on side of bed approximately 15 minutes. Demonstrated good balance.) Education OT Patient Education: Correct positioning, Modified ADL techniques, Progress toward Goal/Update tx plan, Purpose of tx/functional activities, Reviewed precautions, Rehab process, Transfer techniques Teaching Recipient: Patient Teaching Methods: Demonstration, Discussion Response to Teaching: Verbalize Understanding, Return Demonstration OT Short Term Goals Short Term Goals Transfers (B,C,W/C) (FIM): 4 1=Demonstrate adherence to instructed precautions during ADL tasks. 2=Patient will verbalize/demonstrate understanding of assistive devices/ modifications for ADL. 3=Patient will improve strength/tolerance for activity to enable patient to perform ADL's. OT Accounting Machine Mechanic Goals Accounting Machine Mechanic Goals Time Frame: May 27, 2018 Eating (FIM): 6 Grooming(FIM): 5 Bathing(FIM): 4 Upper Body Dressing(FIM): 5 Lower Body Dressing(FIM): 4 Toileting(FIM): 5 Transfers (B,C,W/C) (FIM): 5 Toilet/Commode Transfer(FIM): 5 Additional Goals: 1-Demonstrate ADL Tasks, 2-Verbalize Understanding, 3- ImproveStrength/Emmy 1=Demonstrate adherence to instructed precautions during ADL tasks. 2=Patient will verbalize/demonstrate understanding of assistive devices/ modifications for ADL. 3=Patient will improve strength/tolerance for activity to enable patient to perform ADL's. OT Education/Plan Problem List/Assessment Assessment: Decreased Activ Tolerance, Dependent Transfers, Impaired I ADL's, Impaired Self-Care Skills Discharge Recommendations Plan/Recommendations: Continue POC Therapy D/C Recommendations: Home w/ Family Support, Occupational Therapy Home Care Equpiment Recommendations-D/C: Extended Bath Bench Treatment Plan/Plan of Care Treatment,Training & Education: Yes Patient would benefit from OT for education, treatment and training to promote independence in ADL's, mobility, safety and/or upper extremity function for ADL' s. Plan of Care: ADL Retraining, Functional Mobility Treatment Duration: May 27, 2018 Frequency: 5 times per week Estimated Hrs Per Day: .25 hour per day Agreement: Yes Rehab Potential: Fair Time/GCodes Start Time: 08:35 Stop Time: 09:00 Total Time Billed (hr/min): 25 Billed Treatment Time 1, EVH x 10minutes, ADL x 15minutes OLIVER CASTANEDA OT May 20, 2018 15:30
[2018-05-20] MEDS: PREGABALIN 100 MG (LYRICA) CAPSULE PO SCH ×2 (15:44→20:48)
[2018-05-20] MEDS: inSUlin ASPART (NovoLOG) 1 UNIT/0.01 ML (CHARGE PER UNIT) SC SCH ×2 (15:54→20:48)
[2018-05-20] MEDS ORDERED: inSUlin ASPART (NovoLOG) 1 UNIT/0.01 ML (CHARGE PER UNIT) SC SCH (17:00)
[2018-05-20] MEDS ORDERED: INSULIN VIAL ASPART for PUMP 100 UNIT/ML VIAL SQ SCH (17:00)
[2018-05-20] MEDS ORDERED: RT-ALBUTEROL SULF 2.5 MG/3 ML PRE-MIX VIAL INH PRN (17:00)
[2018-05-20] MEDS: RT-ADVAIR HFA 115/21 MCG PER PUFF IH SCH (19:52)
[2018-05-20] MEDS: SENNA W/DOCUSATE (SENOKOT S) TABLET PO SCH (20:47)
[2018-05-20] MEDS ORDERED: traZODone 100 MG (DESYREL) TAB PO SCH (21:00)
[2018-05-20] MEDS ORDERED: NON-FORMULARY MEDICATION 1 EA EA (Cyclosporine (Restasis) 1 DROP) OU SCH (21:00)
[2018-05-20] MEDS ORDERED: TIOTROPIUM BROMIDE (SPIRIVA) 5'S INHALER IH SCH (21:00)
[2018-05-20] MEDS ORDERED: ATORVASTATIN 40 MG (LIPITOR) TABLET PO SCH (21:00)
[2018-05-20] MEDS ORDERED: INSULIN DEGLUDEC 35 UNIT SQ SCH (21:00)
[2018-05-20] MEDS ORDERED: RT-ALBUTEROL SULF 2.5 MG/3 ML PRE-MIX VIAL INH SCH (21:00)
[2018-05-20] MEDS ORDERED: UMECLIDINIUM BROMIDE (INCRUSE ELLIPTA) 7'S IH SCH (21:00)
[2018-05-20] MEDS ORDERED: inSUlin DETERMIR 1 UNIT/0.01 ML (LEVEMIR) CHARGE PER UNIT SQ SCH (21:00)
[2018-05-20] MEDS ORDERED: NON-FORMULARY MEDICATION 1 EA EA (Fluticasone/Salmeterol (Advair 250-50 Diskus) 1 PUFF) IH SCH (21:00)
[2018-05-21 00:34] VITALS: BP 110/55
[2018-05-21] MEDS: D5 1/2 NS 1000 ML IV SOLUTION 1,000 ML IV SCH ×2 (03:20→08:53)
[2018-05-21 04:19] VITALS: BP 159/70
[2018-05-21] MEDS: inSUlin ASPART (NovoLOG) 1 UNIT/0.01 ML (CHARGE PER UNIT) SC SCH ×2 (05:51→11:08)
[2018-05-21] MEDS ORDERED: TROSPIUM 20 MG (SANCTURA) TAB PO SCH (06:00)
[2018-05-21 06:09] LABS: HEMOGLOBIN 8.2 G/DL (11.5-16.0); MEAN PLATELET VOLUME 9.5 FL (7.4-10.4); RED BLOOD COUNT 2.98 10^6/uL (4.35-5.85); RED CELL DISTRIBUTION WIDTH 17.1 % (10.0-14.5)
[2018-05-21 06:30] LABS: CALCIUM 9.5 MG/DL (8.5-10.1); CREATININE SERUM 1.1 MG/DL (0.60-1.30)
[2018-05-21] MEDS ORDERED: LEVOTHYROXINE 125 MCG (LEVOTHROID) TABLET PO SCH (06:30)
[2018-05-21] MEDS: RT-ADVAIR HFA 115/21 MCG PER PUFF IH SCH (07:10)
--- NOTE | 2018-05-21 07:33 | Progress Note (SOAP) ---
Subjective Date Seen by a Provider: May 21, 2018 Time Seen by a Provider: 07:30 Subjective/Events-last exam Currently no complaints, POD #2 s/p left BKA Objective Exam Vital Signs Date Time Temp Pulse Resp B/P (MAP) Pulse Ox O2 Delivery O2 Flow Rate FiO2 05/21/18 07:11 100 Room Air 05/21/18 07:11 Room Air 05/21/18 07:11 94 Room Air 05/21/18 04:19 97.2 71 20 159/70 (99) 99 Room Air 05/21/18 00:34 98.0 68 18 110/55 (73) 97 Room Air 05/20/18 21:00 96 Room Air 05/20/18 19:57 99 Room Air 05/20/18 19:52 95 Room Air 05/20/18 19:10 97.7 71 16 120/58 (78) 98 Room Air 05/20/18 16:52 78 94 05/20/18 15:45 98.3 80 20 143/65 (91) 97 Room Air 05/20/18 14:07 98.3 80 137/62 05/20/18 12:27 98.6 76 18 130/60 (83) 95 Room Air 05/20/18 11:45 98.6 76 130/60 05/20/18 11:28 98.2 75 124/60 05/20/18 10:57 98.2 75 18 124/60 97 Room Air 05/20/18 09:00 96 Room Air 05/20/18 08:48 97.2 82 18 121/57 97 Room Air 05/20/18 08:30 98.2 81 116/57 05/20/18 08:00 98.2 81 16 116/57 (76) 96 Room Air I & O 05/21/18 07:00 Intake Total 2740 ml Output Total 5400 ml Balance -2660 ml Capillary Refill : General Appearance: No Apparent Distress Extremity: Normal Capillary Refill, Normal Inspection Neurologic/Psychiatric: Alert, Oriented x3, Normal Mood/Affect, skirt 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 II-XII Norm as Tested Skin: Normal Color, Warm/Dry (left stump dressing CDI without drainage) Results Lab Laboratory Tests 05/20/18 15:43: Glucometer 297H 05/20/18 20:17: Glucometer 276H 05/21/18 05:22: Glucometer 209H 05/21/18 05:30: White Blood Count 8.0, Red Blood Count 2.98L, Hemoglobin 8.2#L, Hematocrit 26L, Mean Corpuscular Volume 86, Mean Corpuscular Hemoglobin 28, Mean Corpuscular Hemoglobin Concent 32, Red Cell Distribution Width 17.1H, Platelet Count 124L, Mean Platelet Volume 9.5, Sodium Level 134L, Potassium Level 4.0, Chloride Level 102, Carbon Dioxide Level 20L, Anion Gap 12, Blood Urea Nitrogen 13, Creatinine 1.10, Estimat Glomerular Filtration Rate 47, BUN/Creatinine Ratio 12 , Glucose Level 167H, Calcium Level 9.5 Assessment/Plan Assessment/Plan Assess & Plan/Chief Complaint A: POD 1 s/p left BKA acute blood loss anemia ischemic necrosis left foot with charcot deformity hyponatremia P: Spoke with Dr. Stewart and her dressing looks great without any drainage. He wants to change it in the office on 05/27. She is OK to Discharge from Ortho standpoint to either home or IRF or skilled. She can be cleared and discharged per medicine DIONISIO BOWEN APRN May 21, 2018 7:33 am
[2018-05-21] MEDS ORDERED: INSULIN VIAL ASPART for PUMP 100 UNIT/ML VIAL SQ SCH ×2 (08:00→12:00)
[2018-05-21] MEDS ORDERED: inSUlin ASPART (NovoLOG) 1 UNIT/0.01 ML (CHARGE PER UNIT) SC SCH ×2 (08:00→12:00)
[2018-05-21 08:14] VITALS: BP 149/65
[2018-05-21] MEDS: ASPIRIN E.C. 325 MG (ECOTRIN) TABLET PO SCH (08:42)
[2018-05-21] MEDS: SENNA W/DOCUSATE (SENOKOT S) TABLET PO SCH (08:42)
[2018-05-21] MEDS: PREGABALIN 100 MG (LYRICA) CAPSULE PO SCH (08:42)
[2018-05-21] MEDS: HYDROcodone/APAP 10 MG/325 MG (LORTAB) TAB PO PRN (08:47)
[2018-05-21] MEDS: ENOXAPARIN 40 MG/0.4 ML (LOVENOX) SYR SC SCH (08:48)
[2018-05-21] MEDS ORDERED: LORATADINE (CLARITIN) 10 MG TAB PO SCH (09:00)
[2018-05-21] MEDS ORDERED: MECLIZINE 25 MG (ANTIVERT) TAB PO SCH (09:00)
[2018-05-21] MEDS ORDERED: SERTRALINE 50 MG (ZOLOFT) TABLET PO SCH (09:00)
[2018-05-21] MEDS ORDERED: OLMESARTAN MEDOXOMIL 10 MG PO SCH (09:00)
[2018-05-21] MEDS ORDERED: FLUTICASONE NASAL SPRAY (FLONASE) 16 GM BTL NS SCH (09:00)
[2018-05-21] MEDS ORDERED: OLMESARTAN 20 MG (BENICAR) TABLET PO SCH (09:00)
[2018-05-21] MEDS ORDERED: SOLIFENACIN 5 MG TAB (VESICARE) NON-FORMULARY PO SCH (09:00)
[2018-05-21] MEDS ORDERED: FUROSEMIDE 40 MG (LASIX) TAB PO SCH (09:00)
[2018-05-21] MEDS ORDERED: UMECLIDINIUM BROMIDE (INCRUSE ELLIPTA) 7'S IH SCH (09:00)
--- NOTE | 2018-05-21 09:18 | Physical Therapy Daily Note ---
PT Daily Note-Current Subjective Pt was awake in bed when PT arrived. Pt agreed to transfer over to bed side chair and do exercises. Pain Numeric Pain Scale: 5-Moderate Pain Location: Left Location Body Site: Knee Mental Status Patient Orientation: Normal For Age Attachments: Alejandra Catheter, IV Transfers Functional [place] Measure 0=Not Assessed/NA 4=Minimal Assistance 1=Total Assistance 5=Supervision or Setup 2=Maximal Assistance 6=Modified [place] 3=Moderate Assistance 7=Complete IndependenceIRFPAI Quality Coding Scale 6 Independent with activity with or without an assistive device 5 Patient requires set up or clean up by helper. Patient completes activity by themselves 4 Supervision or touching assist (CGA). [place] provide cues , steadying assist 3 The helper provides less than half the effort to complete the activity 2 The helper provides more than half the effort to complete the activity 1 Dependent. The helper does all the effort to complete an activity 7 Patient refused to complete or attempt activity 9 The patient did not perform the activity before the current illness or injury 88 Not attempted due to Medical conditions or safety concerns Transfers (B, C, W/C) (FIM): 4 Scootin Rollin Supine to/from Sit: 4 Sit to/from Stand: 4 Bed to/from Chair: 4 Weight Bearing Right Lower Extremity: Right Full Weight Bearing Left Lower Extremity: Left Non Weight Bearing Gait Training Gait (FIM): 1 Distance (FIM): 1=up to 49 ft Distance: 5' Gait Level of Assist: 1 Gait Persons Needed: 1 Gait Assistive Device: FWW Patient is able to perform 3 hops with FWW use Exercises Supine Ex: Rolling, Scooting Assessment Pt was able to transfer from supine to sitting bedside with the help of a PT. Pt strength is able to assist PT but requires minimal assistance with transfer. Pt will benefit from exercises and strengthening to improve overall function for daily activities. PT Short Term Goals Short Term Goals Time Frame: May 27, 2018 Transfers (B,C,W/C) (FIM): 4 Gait (FIM): 1 Gait Distance Comment: 10' Gait Level of Assist: 4 Gait Assistive Device: FWW PT Plan Treatment/Plan Treatment Plan: Continue Plan of Care Treatment Plan: Bed Mobility, Education, Functional Activity Emmy, Functional Strength, Gait, Safety, Therapeutic Exercise, Transfers Treatment Duration: May 27, 2018 Frequency: 11 times per week Estimated Hrs Per Day: .25 hour per day (15-30) Patient and/or Family Agrees t: Yes Time/GCodes Time In: 850 Time Out: 908 Total Billed Treatment Time: 18 Total Billed Treatment 1 visit FA - 18 mins GREGORIO AMADO PT May 21, 2018 09:18
--- NOTE | 2018-05-21 10:08 | Progress Note-Hospitalist ---
Subjective HPI/CC On Admission Date Seen by Provider: May 21, 2018 Time Seen by Provider: 10:02 Pt is a 83yoCF IDDMII, HTN, PAD, Charcot Foot, and SDH known to me from multiple admissions who was admitted due for a BKA under the care of Dr Stewart. She denies any complaints today. She is brushing her teeth with the care of OT. She denies any pain at this time. I am consulted for medical management of her diabetes. I discussed her care with Dr Stewart's RED LEAD BURNER Lev Jimenez. Plan is for dressing change later this week and then hopefully home with family care. Subjective/Events-last exam Pt reports doing well. Was just starting to work with therapy when I entered room. No complaints. Objective Exam Vital Signs Vital Signs Date Time Temp Pulse Resp B/P (MAP) Pulse Ox O2 Delivery O2 Flow Rate FiO2 05/21/18 09:00 96 Room Air 05/21/18 08:14 98.9 77 20 149/65 (93) Capillary Refill : General Appearance: No Apparent Distress, WD/WN Respiratory: Lungs Clear, No Respiratory Distress Cardiovascular: Regular Rate, Rhythm, No Murmur Gastrointestinal: Normal Bowel Sounds, Non Tender, Soft Extremity: Other Neurologic/Psychiatric: Alert, Oriented x3 Results/Procedures Lab Laboratory Tests 05/21/18 05:30 Patient resulted labs reviewed. Assessment/Plan Assessment and Plan Assess & Plan/Chief Complaint s/p left BKA Diagnosis/Problems Diagnosis/Problems (1) Charcot foot due to diabetes mellitus Status: Chronic Assessment & Plan: s/p left BKA Management per primary DC to IRU today as discussed with Lev Jimenez RED LEAD BURNER for Dr Stewart (2) Diabetes Status: Chronic Assessment & Plan: SSI added Continue home insulin Qualifiers: Diabetes mellitus type: type 2 Diabetes mellitus local intermodal truck driver insulin use: with local intermodal truck driver use Diabetes mellitus complication status: with circulatory complication Diabetes mellitus complication detail: with other circulatory complications Qualified Codes: E11.59 - Type 2 diabetes mellitus with other circulatory complications; Z79.4 - oysterman (current) use of insulin (3) Essential (primary) hypertension Status: Chronic Assessment & Plan: Well controlled (4) Anemia Status: Chronic Assessment & Plan: Chronic anemia s/p 2 units this AM Resolved Qualifiers: Anemia type: other cause Other causes of anemia: other cause, not classified Qualified Codes: D64.89 - Other specified anemias (5) Hypothyroidism Status: Chronic Assessment & Plan: Resume home meds Qualifiers: Hypothyroidism type: acquired Qualified Codes: E03.9 - Hypothyroidism, unspecified SUHA TAYLOR MD May 21, 2018 10:07 am
== END 2018-05-21 11:15 | DRG 240 ==
LOC: 4TH 11:51 → SURG 11:52 → 4TH 17:55
PROVIDERS: ADMIT Orthopaedic Surgery; ATTEND Orthopaedic Surgery
PROC: 0Y6J0Z1 Detachment at Left Lower Leg, High, Open Approach (ICD-10-PCS; principal; 2018-05-19 14:46)
DX: E11.52 Type 2 diabetes mellitus with diabetic peripheral angiopathy with gangrene (principal); E11.610 Type 2 diabetes mellitus with diabetic neuropathic arthropathy; M87.872 Other osteonecrosis, left ankle; D62 Acute posthemorrhagic anemia; E87.1 Hypo-osmolality and hyponatremia; J44.9 Chronic obstructive pulmonary disease, unspecified; I12.9 Hypertensive chronic kidney disease with stage 1 through stage 4 chronic kidney disease, or unspecified chronic kidney disease; N18.9 Chronic kidney disease, unspecified; E11.22 Type 2 diabetes mellitus with diabetic chronic kidney disease; I25.119 Atherosclerotic heart disease of native coronary artery with unspecified angina pectoris; E78.00 Pure hypercholesterolemia, unspecified; F41.9 Anxiety disorder, unspecified; F32.9 Major depressive disorder, single episode, unspecified; G47.33 Obstructive sleep apnea (adult) (pediatric); K21.9 Gastro-esophageal reflux disease without esophagitis; K44.9 Diaphragmatic hernia without obstruction or gangrene; E03.9 Hypothyroidism, unspecified; G43.909 Migraine, unspecified, not intractable, without status migrainosus; M19.91 Primary osteoarthritis, unspecified site; F03.90 Unspecified dementia, unspecified severity, without behavioral disturbance, psychotic disturbance, mood disturbance, and anxiety; Z95.5 Presence of coronary angioplasty implant and graft; Z86.79 Personal history of other diseases of the circulatory system; Z79.4 Long term (current) use of insulin; Z87.74 Personal history of (corrected) congenital malformations of heart and circulatory system
CPT/HCPCS: 36415; 80048; 82962; 85027; 86850; 86900; 86901; 86920; 94640; 94664

== ENCOUNTER 2018-05-21 10:07 | Inpatient (IN) | payer MEDICARE, MEDICAID ==
[~2018-05-21] VITALS: Ht 170.2 cm; Wt 83.9 kg
[~2018-05-21 10:07] MED LIST changes: +ALBU2.5V4 NEB
[2018-05-21 11:38] VITALS: BP 133/76
[2018-05-21] MEDS ORDERED: BISACODYL 10 MG SUPP (DULCOLAX) PR PRN (12:00)
[2018-05-21] MEDS ORDERED: RT-ALBUTEROL SULF 2.5 MG/3 ML PRE-MIX VIAL INH PRN (12:00)
--- NOTE | 2018-05-21 12:33 | Physical Therapy Evaluation ---
PT Evaluation-General Medical Diagnosis Admission Date May 21, 2018 at 11:38 Medical Diagnosis: AVN; charcot foot left Onset Date: May 21, 2018 Therapy Diagnosis Therapy Diagnosis: weakness; abn mobility Height/Weight Height (Feet): 5 Height (Inches): 7.00 Weight (Pounds): 183 Weight (Ounces): 3.2 Precautions Precautions/Isolations: Standard Precautions Weight Bear Status Right Lower Extremity: Right Full Weight Bearing Left Lower Extremity: Left Non Weight Bearing Referral Physician: Luis Alberto Reason for Referral: Evaluation/Treatment Medical History Pertinent Medical History: CAD, COPD, DM, GERD, HTN, Hypothroidism, Neuropathy , Renal Insufficiency Additional Medical History Pt has had a complicated course; reports she had a left ankle fracture in August that has had complications in healing. Current History Pt is post acute hospital stay for left BKA due to AVN and Charcot Foot. Pt transferred to ARU for continued rehab services. Reviewed History: Yes Social History Home: Single Level Current Living Status: Children (daughter and son in law) Entry Into Home: Ramp Pt has one threshold in home that her son in law has ramped as well. Prior/Core FIM Prior Level of Function Functional [place] Measure 0=Not Assessed/NA 4=Minimal Assistance 1=Total Assistance 5=Supervision or Setup 2=Maximal Assistance 6=Modified [place] 3=Moderate Assistance 7=Complete IndependenceIRFPAI Quality Coding Scale 6 Independent with activity with or without an assistive device 5 Patient requires set up or clean up by helper. Patient completes activity by themselves 4 Supervision or touching assist (CGA). [place] provide cues , steadying assist 3 The helper provides less than half the effort to complete the activity 2 The helper provides more than half the effort to complete the activity 1 Dependent. The helper does all the effort to complete an activity 7 Patient refused to complete or attempt activity 9 The patient did not perform the activity before the current illness or injury 88 Not attempted due to Medical conditions or safety concerns Bed Mobility: 6 (hospital bed) Transfers (B,C,W/C) (FIM): 6 (walking and wc mobility) Gait: 5 (household distances with FWW) Prior Equipment Used: WC, FWW, bedside commode, hospital bed Pt has had a complicated mobility history since August due to non healing left ankle. Prior to August, she was indp to mod indep with all gait and mobiltiy; since the fracture, she has toggled between walking and using a wheelchair. She was mod indep with both at a household level. PT Evaluation-Current Subjective Pt agreeable. Denies pain. Reports she hopes to return home soon. Pain Numeric Pain Scale: 0-No Pain Location: No Pain Reported Objective Patient Orientation: Person, Place, Time, Situation Problem Solving: Fair ROM/Strength ROM Lower Extremities WNL Strenght Lower Extremities Right LE strength is grossly 4/5 throughout; left LE strength NT due to recent BKA Integumentary/Posture Integumentary Refer to nursing notes; she does have a few covered areas. Bowel Incontinence: No Bladder Incontinence: No Posture normal and symmetrical Neuromuscular (Tone, Coordination, Reflexes) Intact and functional Sensory Vision: Wears Glasses Hearing: Functional Hand Dominance: Right Sensation Right Lower Extremit: Intact Sensation Left Lower Extremity: Intact Transfers Functional [place] Measure 0=Not Assessed/NA 4=Minimal Assistance 1=Total Assistance 5=Supervision or Setup 2=Maximal Assistance 6=Modified [place] 3=Moderate Assistance 7=Complete IndependenceIRFPAI Quality Coding Scale 6 Independent with activity with or without an assistive device 5 Patient requires set up or clean up by helper. Patient completes activity by themselves 4 Supervision or touching assist (CGA). [place] provide cues , steadying assist 3 The helper provides less than half the effort to complete the activity 2 The helper provides more than half the effort to complete the activity 1 Dependent. The helper does all the effort to complete an activity 7 Patient refused to complete or attempt activity 9 The patient did not perform the activity before the current illness or injury 88 Not attempted due to Medical conditions or safety concerns Transfers (B, C, W/C) (FIM): 3 Roll Left to Right (QC): 4 Supine to/from Sit: 4 (CGA for safety) Sit to/from Stand: 3 (from normal height surface; min assist from elevated surface) bed t/f WC(FIM only if WC use): 4 (CGa for safety) Sit to Lying (QC): 4 Lying to Sitting/Side of Bed(Q: 4 Sit to Stand (QC): 3 (from standard height surface) Chair/Ipr-hi-Pupud Xfer(QC): 4 Car Transfer (QC): 4 Gait Does the Patient Walk?: No and Walking Goal NOT indicated Mode of Locomotion: Wheelchair Anticipated Mode of Locomotion: Wheelchair Gait (FIM): 0 (recent BKA; walking is not indicated at this time. ) Wheelchair Training Does the Pt Use a Wheelchair?: Yes Wheelchair (FIM): 4 Wheelchair Distance (FIM): 3=150 ft Distance: 150 ft Wheelchair Level of Assist: 4 Wheel 50 ft with 2 turns (QC): 4 Wheel 150 ft (QC): 4 Type of Wheelchair: Manual occas assist for turning. Stairs Stairs (FIM): 0 (unable to walk; therefore unable to attempt stairs. ) 1 Step (curb) (QC): 88 4 Steps (QC): 88 If not tested on admit;explain unable to effectively hop to walk or hop up a step Balance Sitting Static: Normal Sitting Dynamic: Fair Standing Static: Fair Standing Dynamic: Fair Picking up an Object (QC): 88 (unsafe to attempt) Treatment Co treat with OT: OT addressed ADL such as bathing and dressing; PT addressed funcitonal sit to stand transfers while completing ADLs as well as addressed seated dynamic balance and pt was required to lean side to side and forward to complete ADL"s. Skill of 2 clinicians required due to her new diagnosis and needed frequent and heavy cues to complete all tasks of self care as well as safe transfers and dynamic balance. Assessment/Needs Pt presents post left BKA. She has impaired bed mobilty, impaired functional transfers and safety, impaired strength and balance and requires extra assist with all tasks; she also needs assist with WC mobility. She will beneifit from skilled PT to address these needs and allow her to return home with her family as before. She is pleasant and cooperative. She is motivated to return home. Her family support is good Rehab Potential: Good PT Short Term Goals Short Term Goals Time Frame: May 27, 2018 Transfers (B,C,W/C) (FIM): 5 PT Press Reader Goals Press Reader Goals PT Press Reader Goals Time Frame: Jun 04, 2018 Transfers (B,C,W/C) (FIM): 6 Sit to Lying (QC): 6 Lying-Sitting on Side/Bed(QC): 6 Sit to Stand (QC): 6 Roll Left to Right (QC): 6 Chair/Mmj-el-Attfh Xfer(QC): 6 Car Transfer (QC): 6 Does the Patient Walk: No and Walking Goal NOT indicated Wheelchair (FIM): 6 Wheelchair distance (FIM): 3=150 ft Wheelchair Level of Assist: 6 Wheel 50 feet with 2 turns (QC: 6 Stairs (FIM): 88 Picking up an Object (QC): 88 LTG is for patient to be mod indep with all functional mobiltiy at a wc level. PT Plan Problem List Problem List: Activity Tolerance, Functional Strength, Safety, Balance, Transfer, Bed Mobility Treatment/Plan Treatment Plan: Continue Plan of Care Treatment Plan: Bed Mobility, Education, Functional Activity Emmy, Functional Strength, Group Therapy, Gait (hopping), Safety, Therapeutic Exercise, Transfers Treatment Duration: Jun 04, 2018 Frequency: At least 5 of 7 days/Wk (IRF) Estimated Hrs Per Day: 1.5 hours per day Patient and/or Family Agrees t: Yes Safety Risks/Education Patient Education: Transfer Techniques, Safety Issues Teaching Recipient: Patient Teaching Methods: Demonstration, Discussion Response to Teaching: Reinforcement Needed Discharge Recommendations Therapy D/C Recommendations: Physical Therapy Home Care Time/GCodes Time In: 1115 Time Out: 1125 ([id number]) Total Billed Treatment Time: 55 Total Billed Treatment visit EVM 10 FA 45 [place] CHRISTIANSON PT May 21, 2018 12:33
--- NOTE | 2018-05-21 13:13 | HISTORY AND PHYSICAL ---
DATE OF SERVICE: 05/21/2018 ADMISSION HISTORY AND PHYSICAL CHIEF COMPLAINT: Difficulty with walking. HISTORY OF PRESENT ILLNESS: The patient is a pleasant 83-year-old female who has been modified independent with a walker, who developed progressive Charcot foot as a complication of insulin-dependent diabetes mellitus. She was admitted to [facility] on 05/19/2018, for a left BKA with Dr. Stewart. She is referred to inpatient rehabilitation unit for ongoing care and therapies. Currently, she complains of constipation, some residual limb pain. She is min assist for taking a few hopping steps with a front wheel walker. She is mod assist for transfers. She is modified independent for eating and grooming, min assist for upper body dressing, MOD assist for lower body dressing. PAST MEDICAL HISTORY: Hypertension, peripheral vascular disease, Charcot foot, and insulin-dependent diabetes mellitus.JF on cpap PAST SURGICAL HISTORY: She has had both knees replaced with Dr. Frye, left BKA as per above. ALLERGIES: PENICILLIN, INFLUENZA VIRUS VACCINE. FAMILY HISTORY: Diabetes, hypertension, cardiovascular disease, and arthritis. 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 REVIEW OF SYSTEMS: A 10-point review of systems significant for residual limb pain, constipation. MEDICATIONS: NovoLog insulin 2 units at 12 noon, ASA 325 mg p.o. daily, Flonase 2 sprays daily, furosemide 40 mg p.o. daily, Claritin 10 mg p.o. daily, Lovenox 40 mg subcu daily, meclizine 25 mg p.o. daily, Benicar 10 mg p.o. daily, Zoloft 50 mg p.o. daily, Incruse Ellipta one inhalation daily, Synthroid 125 mcg p.o. daily, Lipitor 40 mg p.o. each day at bedtime, Celexa 20 mg p.o. each day at bedtime, Senokot-S 1 tablet p.o. b.i.d., Levemir 35 units subcu each day at bedtime, Toprol-XL 25 mg p.o. b.i.d., trazodone 100 mg p.o. each day at bedtime, Advair 2 puffs b.i.d., Sanctura 20 mg p.o. b.i.d., Lyrica 100 mg p.o. t.i.d., Proventil inhalation every 4 hours p.r.n. shortness of breath, Dulcolax suppository 10 mg daily p.r.n. constipation, and hydrocodone and acetaminophen 10 one tablet p.o. 4 hours p.r.n. pain. PHYSICAL EXAMINATION: GENERAL: Significant for a pleasant female, appearing her stated age, sitting in wheelchair, in no acute distress. VITAL SIGNS: She is afebrile, pulse 70, respirations 18, blood pressure 133/76, and O2 sat 99% on room air. HEENT: Vision, speech, hearing grossly intact. No oral lesion is noted. NECK: Supple without mass. HEART: Regular rhythm. CHEST: Clear. ABDOMEN: Distended, firm, nontender. Bowel sounds present. EXTREMITIES: Left BKA with an Cj wrap. The patient has no lower leg edema, no calf tenderness on the right. MUSCULOSKELETAL: The patient has functional active range of motion in both upper limbs and right lower limb. NEUROLOGIC: Sensation is grossly intact to touch. Cognition is grossly intact. Strength is 4+/5 in both upper limbs and 4/5 in right lower limb. She is able to active hip flex on the left.She is rt hand dominant.She is continent of bowel and bladder. IMPRESSION: 1. Ambulatory dysfunction secondary to Charcot foot status post left below-knee amputation by Dr. Stewart, nonweightbearing left lower extremity. 2. Osteoarthritis, status post bilateral total knee replacements. 3. Insulin-dependent diabetes mellitus. 4. Hypertension, controlled with medication. 5. Peripheral vascular disease. 6. Postoperative anemia status post transfusion 2 units packed red blood cells on 05/21/2018, with a pretransfusion hemoglobin of 6 on 05/20/2018. 7. Postoperative constipation. 8. Obstructive sleep apnea, on CPAP at night. 9. DVT Prophylaxis on Lovenox subcut PLAN: The patient will have a comprehensive program of inpatient rehabilitation with a goal of maximizing level of functional independence prior to discharge home with family. We will focus on wheelchair level of function due to BKA status and nonweightbearing status on left lower extremity. The patient will have PT, OT 90 minutes per day each discipline 5 days a week for 2 weeks with the above goals in mind. Please see post-admission physician evaluation for details of plan of care. Rehabilitation nursing assist with bowel, bladder, skin, wound care, medication administration, and pain management. Speech therapy to do cognitive assessment and treat as indicated. pest control worker to assist with discharge planning, community reentry. Follow up with Dr. Stewart, Orthopedics and hospitalist as per their schedule. Continue Lovenox subcu for DVT prophylaxis. ESTIMATED LENGTH OF STAY: Two weeks. PROGNOSIS: Rehab prognosis appears good for goal of discharging home with family, modified independent to supervision for ADLs and mobility skills. DIET: Regular for now. CODE STATUS: Full code. Job ID: [id number] DocumentID: [id number] Dictated Date: 05/21/2018 12:33:05 Community Services Officer Date: 05/21/2018 13:12:39 Dictated By: LINDA MCKEON MD MTDD
[2018-05-21] MEDS: inSUlin ASPART (NovoLOG) 1 UNIT/0.01 ML (CHARGE PER UNIT) SC SCH ×3 (13:29→20:44)
--- NOTE | 2018-05-21 14:00 | Occupational Therapy Eval ---
OT Evaluation-General/PLF Medical Diagnosis Admission Date May 21, 2018 at 11:38 Medical Diagnosis: BKA Left LE Onset Date: May 21, 2018 Therapy Diagnosis Therapy Diagnosis: Decreased ADL skills Height/Weight Height (Feet): 5 Height (Inches): 7.00 Weight (Pounds): 183 Weight (Ounces): 3.2 Precautions Precautions/Isolations: Standard Precautions Referral Physician: Luis Alberto Referral Reason: Activity Tolerance, Self Care, Evaluation/Treatment, Strengthening/ROM Medical History Pertinent Medical History: CAD, COPD, DM, GERD, HTN, Hypothroidism, Neuropathy , Renal Insufficiency Additional Medical History Bilateral Knee replacements, right elbow surgery Reviewed History: Yes Social History Home: Single Level Current Living Status: Children (daughter and son in law) Entry Into Home: [facility] ADL-Prior Level of Function Functional [place] Measure 0=Not Assessed/NA 4=Minimal Assistance 1=Total Assistance 5=Supervision or Setup 2=Maximal Assistance 6=Modified [place] 3=Moderate Assistance 7=Complete [place] ADL PLOF Comments Pt. has home health twice a weak that was providing wound care and BP checks. Pt. states that daughter assists her with bathing but she can do her dressing. She sleeps in a hospital bed in living room and her daughter and son in law sleep in recliners in living room. Self Care Self Care: (Code the patient's need for assistance with bathing, dressing, using the toilet, or eating prior to the current illness, exacerbation, or injury.) Functional Cognition Functional Cognition: (Code the patient's need for assistance with planning regular tasks, such as shopping or remembering to take medicaiton prior to the current illness, exacerbation, or injury.) DME/Equipment: Bath Chair, Bedside Commode, Shower DME/Equipment Comments Pt. has a walker and wheelchair. OT Current Status Subjective No pain reported. Appearance Pt. is alert and oriented and agrees to work with therapy. Mental Status/Objective Patient Orientation: Person, Place, Time, Situation Current Glasses/Contacts: Yes Hand Dominance: Right Upper Extremity ROM WFL ADL-Treatment Functional [place] Measure 0=Not Assessed/NA 4=Minimal Assistance 1=Total Assistance 5=Supervision or Setup 2=Maximal Assistance 6=Modified [place] 3=Moderate Assistance 7=Complete IndependenceIRFPAI Quality Coding Scale 6 Independent with activity with or without an assistive device 5 Patient requires set up or clean up by helper. Patient completes activity by themselves 4 Supervision or touching assist (CGA). [place] provide cues , steadying assist 3 The helper provides less than half the effort to complete the activity 2 The helper provides more than half the effort to complete the activity 1 Dependent. The helper does all the effort to complete an activity 7 Patient refused to complete or attempt activity 9 The patient did not perform the activity before the current illness or injury 88 Not attempted due to Medical conditions or safety concerns Grooming (FIM): 5 (Set up to brush hair and wash face.) Bathing (FIM): 4 (Pt. able to wash all parts while seated, except requires min assist to stand while holding grab bar. While OT is assisting with stand, pt. is able to wash ivan area in bathroom.) Shower/Bathe Self (QC): 4 Lower Body Dressing (FIM): 3 (Pt. is able to doff/don right sock but requires assist to don shorts. Pt. is able to don over legs but requires assistance to stand and machine puller hips.) Lower Body Dressing (QC): 3 On/Off Footwear (QC): 5 Toileting (FIM): 4 (Min assist in stance.) Toileting Hygiene (QC): 4 Transfers (B, C, W/C) (FIM): 4 (Min assist for stand pivot.) Toilet/Commode Transfer (FIM): 4 Toilet Transfer (QC): 4 Other Treatments Pt. seen this date for partial co-treat with PT due to pt. fatigue and need for skilled assessment. OT initiated ADL with bathing/dressing while PT initiated mobility training, standing, transfer training, and wound management. Pt. able to self propel to therapy gym and stand at parallel bar with min assist. Provided cushion for bottom area. Pt. is educated on rehab stay, goals, and treatment in general. Pt. seems eager to participate and increase overall independence. Education OT Patient Education: Correct positioning, Energy conservation, Modified ADL techniques, Progress toward Goal/Update tx plan, Purpose of tx/functional activities, Reviewed precautions, Rehab process, Transfer techniques Teaching Recipient: Patient Teaching Methods: Demonstration Response to Teaching: Verbalize Understanding, Return Demonstration OT Short Term Goals Short Term Goals Time Frame: May 28, 2018 Eating(FIM): 5 Grooming(FIM): 5 Bathing(FIM): 5 Upper Body Dressing(FIM): 5 Lower Body Dressing(FIM): 4 Toileting(FIM): 5 Transfers (B,C,W/C) (FIM): 5 Toilet/Commode Transfer(FIM): 5 Additional Short Term Goals: 1-Demonstrate ADL Tasks, 2-Verbalize Understanding , 3-ImproveStrength/Emmy 1=Demonstrate adherence to instructed precautions during ADL tasks. 2=Patient will verbalize/demonstrate understanding of assistive devices/ modifications for ADL. 3=Patient will improve strength/tolerance for activity to enable patient to perform ADL's. OT Taxi Driver Goals Nursing Home Goals Time Frame: Jun 04, 2018 Eating (FIM): 6 Eating (QC): 6 Groomin Oral Hygiene (QC): 6 Bathing(FIM): 5 Shower/Bathe Self (QC): 5 Upper Body Dressing(FIM): 6 Upper Body Dressing (QC): 6 Lower Body Dressing(FIM): 5 Lower Body Dressing (QC): 5 On/Off Footwear (QC): 5 Toileting(FIM): 6 Toileting Hygiene (QC): 6 Transfers (B,C,W/C) (FIM): 6 Toilet/Commode Transfer(FIM): 6 Toilet/Commode Transfer (QC): 6 Shower Transfer(FIM): 5 Additional Goals: 1-Demonstrate ADL Tasks, 2-Verbalize Understanding, 3- ImproveStrength/Emmy 1=Demonstrate adherence to instructed precautions during ADL tasks. 2=Patient will verbalize/demonstrate understanding of assistive devices/ modifications for ADL. 3=Patient will improve strength/tolerance for activity to enable patient to perform ADL's. OT Education/Plan Problem List/Assessment Assessment: Decreased Activ Tolerance, Dependent Transfers, Impaired Bed Mobility, Impaired Funct Balance, Impaired I ADL's, Impaired Self-Care Skills Discharge Recommendations Plan/Recommendations: Continue POC Therapy D/C Recommendations: Home w/ Family Support, Occupational Therapy Home Care, Scheduled Assistance Treatment Plan/Plan of Care Treatment,Training & Education: Yes Patient would benefit from OT for education, treatment and training to promote independence in ADL's, mobility, safety and/or upper extremity function for ADL' s. Plan of Care: ADL Retraining, Caregiver Training, Functional Mobility, Group Exercise/Act as Ind, UE Funct Exercise/Act Treatment Duration: Jun 04, 2018 Frequency: At least 5 of 7 days/Wk (IRF) Estimated Hrs Per Day: 1.5 hours per day Agreement: Yes Rehab Potential: Good Time/GCodes Start Time: 11:25 Stop Time: 12:20 Total Time Billed (hr/min): 55 Billed Treatment Time 5390-0223 1, EVM x 10minutes [id number] ADL x 45minutes- co-treat with PT. Please see above note for findings and goals. OLIVER CASTANEDA OT May 21, 2018 14:00
--- NOTE | 2018-05-21 14:30 | PM&R Post Admission Assessment ---
Post Admission Physician Asses Date seen by provider: May 21, 2018 Time seen by provider: 12:30 The preadmission screen agrees with the post admission assessment that the patient is a good candidate for inpatient rehabilitation. The patient will have a comprehensive program of inpatient rehabilitation with a goal of maximizing level of functional independence prior to discharge home with family. The patient will have PT/OT ninety minutes per day, each discipline, five days a week for 2 weeks for gait, strengthening, conditioning, balance, ADLs, any patient/family/caregiver training as necessary. Speech therapy to do cognitive assessment and treat as indicated. Rehabilitation nursing to assist with bowel, bladder, skin, wound care, medication administration, pain management. Pyrotechnic Mixer to assist with discharge planning, community reentry. Lovenox SUBCUT for DVT prophylaxis. She appears to be well motivated to participate in three hours of therapy a day. She should be able to tolerate three hours of therapy a day from a medical and surgical standpoint. She should benefit from the three hours of therapy a day. She has a reasonable discharge plan, reasonable discharge rehabilitation goals and a supportive family. She has various comorbidities that need to be closely monitored with medications and treatments adjusted on a daily basis as needed. These include: DM COPD CAD GERD HTN C code 05.4 Etiologic DX Left BKA Barriers to discharge for this patient who had been independent prior to this are for her to be modified independent to supervision for ADLs and mobility skills prior to discharge home with family, so as to lessen the burden of the caregivers. Risks for this patient include: 1. Fall 2. Fracture 3. DVT 4. Pulmonary embolism 5. Wound infection 6. Skin breakdown 7. Contractures 8. Poorly controlled pain 9. Urinary retention 10. UTI 11. Respiratory infection 12. Aspiration 13. Poorly controlled DM 14. Exacerbation of COPD 15. Poorly controlled HTN Estimated Length of Stay: 14 days Prognosis: Rehab prognosis appears good for goal of discharge home with family modified independent to supervision for ADLs and mobility skills at the w/c level of function due to recent Left BKA. Date Identified: May 21, 2018 Time Identified: 12:00 Action Plan to Resolve CSMI: Transfer meds reviewed General: Alert, Oriented X3, Cooperative, No Acute Distress HEENT: Atraumatic, PERRLA, EOMI, Mucous Memb Moist/[place] Neck: Supple, No JVD Lungs: Clear to Auscultation Heart: Regular Rate Abdomen: Normal Bowel Sounds, Other (mildly distended) Extremities: Other Neuro: Other (functional strength BUES RTlower limb 4/5) Psych/Mental Status: Mental Status NL LINDA MCKEON MD May 21, 2018 14:30
--- NOTE | 2018-05-21 14:48 | Therapy Group Daily Note ---
Therapy Daily Group Note Patient Education Topic Home Safety Exercises LE Seated Exercise, UE Exercise Other/Notes Pt was transported via w/c to OT/PT group in therapy gym. Group consisted of introductions (name, place living, favorite season), socialization, seated UE/ LE exercises, ARU description/expectations, home safety trivia activity and home safety education. Pt introduced self appropriately and actively listened to peers. Pt contributed to conversations and interacted with peers throughout group. Pt was able to answer questions about home safety and verbalized understanding of educational topics. Completed UE/LE seated exercises with minimal difficulty. After therapy, pt requested to use toilet then sat in w/c to do crocheting. Call light/phone in reach. All needs met in room. Start Time: 13:00 Stop Time: 14:15 Total Billed Treatment Time: 75 Total Billed Treatment 1-GRP GEORGIA HICKMAN May 21, 2018 14:48
[2018-05-21 15:19] VITALS: BP 134/71
--- NOTE | 2018-05-21 15:34 | ST Cognitive Linguistic Eval ---
Speech Evaluation-General Medical Diagnosis BKA Left LE Onset Date: May 21, 2018 Therapy Diagnosis Therapy Diagnosis: Cognition Precautions Precautions/Isolations: Standard Precautions Referral Referring Physician: Dr. Sahu Reason for Referral: Evaluation/Treatment Medical History Pertinent Medical History: CAD, COPD, DM, GERD, HTN, Hypothroidism, Neuropathy , Renal Insufficiency Reviewed History: Yes Social History Current Living Status: Children (daughter and son in law) Speech PLF-Current Status Prior Level of Function Pt lives with dtr and received assisstance from her. Subjective Pt in bed Pleasant and cooperative. Pain Numeric Pain Scale: 0-No Pain Language Eval: Auditory Comprehends Simple Yes/No Ques: Functional Follows 1-Step Commands: Functional Follows Complex Directions: Functional Follows General Conversations: Functional Language Eval: Verbal Language Completes Spontaneous Greeting: Functional Produces Auto, Serial Info: Functional Word Finding: Functional Requests Basic Needs: Functional States Basic Personal Info: Functional Expresses Complex Ideas: Functional Language Evaluation: Reading NT Objective Cognitive Domain Attention: WNL Memory: WNL Problem Solving: Functional Objective Results [facility] Cognitive/Communication was administered to assess cognitive- linguistic functioning. Results are: Orientation - Pt oriented x 3 Memory - 2 word recall for immediate was 2/3 correct; delayed 3/3 correct and 3/ 3 for remote delay. Problem Solving - Simple 4/4 correct; Abstract was 1.5/2 correct and Comparisons was 1.5/4. Speech/language WNL Oral Motor/Speech Production WNL Impression Functional cognitive-linguistic skills. Communication/Social Cognition Comprehension: 7 Expression: 7 Social Interaction: 7 Problem Solvin Memory: 6 Speech Patient Assess Expression of Ideas/Wants: Expression (4) Understanding Verbal Content: Understands (4) Brief Interview-Mental Status: Yes Repetition of Three Words: Three (3) Temporal Orientation: Year: Correct (3) Temporal Orientation: Month: Accurate within 5 days(2) Temporal Orientation: Day: Correct (1) Recall : Wear to say "Sock": Yes,after cueing (1) Recall : Color: Yes, no cue required (2) Recall : Bed: Yes, no cue required (2) Speech Short Term Goals Short Term Goals Short Term Goals no goals established as skilled ST not indicated. Speech Pinked Edge Sewing Machine Operator Goals Pinked Edge Sewing Machine Operator Goals no goals established as skilled ST not indicated. Speech-Plan Patient/Family Goals Patient/Family Goals: to return home Treatment Plan Speech Therapy Treatment Plan: Discontinue ST Pt does not require skilled ST Frequency: Modified Program (IRF) (0) Estimated Hrs Per Day: Other (0) Rehab Potential: Good Barriers to Learning: None identified Pt/Family Agrees to Plan: Yes Safety Risks/Education Teaching Recipient: Patient Teaching Methods: Discussion Response to Teaching: Verbalize Understanding Time Speech Therapy Time In: 14:30 Speech Therapy Time Out: 14:45 Total Billed Time: 15 Billed Treatment Time 1, SPSNDCOMP MARIE Greco May 21, 2018 15:34
[2018-05-21] MEDS: PREGABALIN 100 MG (LYRICA) CAPSULE PO SCH ×2 (16:09→20:38)
[2018-05-21] MEDS: TROSPIUM 20 MG (SANCTURA) TAB PO SCH (16:09)
[2018-05-21] MEDS: HYDROcodone/APAP 10 MG/325 MG (LORTAB) TAB PO PRN ×2 (16:09→20:38)
[2018-05-21 17:41] VITALS: BP 149/69
[2018-05-21] MEDS: RT-ADVAIR HFA 115/21 MCG PER PUFF IH SCH (19:57)
[2018-05-21] MEDS: ATORVASTATIN 40 MG (LIPITOR) TABLET PO SCH (20:38)
[2018-05-21] MEDS: traZODone 100 MG (DESYREL) TAB PO SCH (20:38)
[2018-05-21] MEDS: inSUlin DETERMIR 1 UNIT/0.01 ML (LEVEMIR) CHARGE PER UNIT SQ SCH (20:39)
[2018-05-21] MEDS: SENNA W/DOCUSATE (SENOKOT S) TABLET PO SCH (20:39)
[2018-05-21] MEDS ORDERED: INSULIN DEGLUDEC 35 UNIT SQ SCH (21:00)
[2018-05-22 04:21] VITALS: BP 123/69
[2018-05-22] MEDS: inSUlin ASPART (NovoLOG) 1 UNIT/0.01 ML (CHARGE PER UNIT) SC SCH ×5 (05:15→21:00)
[2018-05-22] MEDS: LEVOTHYROXINE 125 MCG (LEVOTHROID) TABLET PO SCH (06:28)
[2018-05-22] MEDS: TROSPIUM 20 MG (SANCTURA) TAB PO SCH ×2 (06:28→15:57)
[2018-05-22] MEDS: SENNA W/DOCUSATE (SENOKOT S) TABLET PO SCH ×2 (08:13→21:00)
[2018-05-22] MEDS: LORATADINE (CLARITIN) 10 MG TAB PO SCH (08:13)
[2018-05-22] MEDS: SERTRALINE 50 MG (ZOLOFT) TABLET PO SCH (08:13)
[2018-05-22] MEDS: ASPIRIN E.C. 325 MG (ECOTRIN) TABLET PO SCH (08:13)
[2018-05-22] MEDS: FUROSEMIDE 40 MG (LASIX) TAB PO SCH (08:14)
[2018-05-22] MEDS: OLMESARTAN 20 MG (BENICAR) TABLET PO SCH (08:14)
[2018-05-22] MEDS: PREGABALIN 100 MG (LYRICA) CAPSULE PO SCH ×3 (08:14→20:59)
[2018-05-22] MEDS: HYDROcodone/APAP 10 MG/325 MG (LORTAB) TAB PO PRN (08:14)
[2018-05-22] MEDS: ENOXAPARIN 40 MG/0.4 ML (LOVENOX) SYR SC SCH (08:16)
[2018-05-22] MEDS: RT-ADVAIR HFA 115/21 MCG PER PUFF IH SCH ×2 (08:23→19:47)
[2018-05-22] MEDS ORDERED: FLEET ENEMA ADULT 1 EA BTL PR PRN (08:45)
--- NOTE | 2018-05-22 08:45 | PM & R (SOAP) Progress Note ---
Subjective This was a face to face visit with the patient. Date Seen by Provider: May 22, 2018 Time Seen by Provider: 08:15 Subjective/Events-last exam Patient was seen in her room this AM with RN Still no BM Meds reviewed See orders Patient mod assist for transfers Date Identified: May 22, 2018 Time Identified: 08:15 Medication Intervention: Meds adjusted for postop constipation Review of Systems Gastrointestinal: Constipation Objective Physician Exam Last Set of Vital Signs Vital Signs Date Time Temp Pulse Resp B/P (MAP) Pulse Ox O2 Delivery O2 Flow Rate FiO2 05/22/18 08:23 95 Room Air 2.00 05/22/18 04:21 97.9 64 18 123/69 (87) Capillary Refill : I&O Intake and Output 05/22/18 00:00 Intake Total 250 ml Balance 250 ml Intake Oral 250 ml # Voids 2 Daily Weight Change Unsure General: Alert, Oriented X3, Cooperative, No Acute Distress HEENT: Atraumatic, PERRLA, EOMI, Mucous Memb Moist/[place] Neck: Supple, No JVD Lungs: Clear to Auscultation Heart: Regular Rate Abdomen: Normal Bowel Sounds, Other (mildly distended) Extremities: Other Neuro: Other (functional strength BUES RTlower limb 4/5) Psych/Mental Status: Mental Status NL Results Lab Data Laboratory Tests 05/21/18 15:43: Glucometer 146H 05/21/18 20:21: Glucometer 223H 05/22/18 04:53: Glucometer 108 Assessment/Plan Assessment and Plan S/P left BKA DR Stewart NWBLLE OA s/p Bilateral TKRS remote Postop constipation IDDM HTN PVD Postop anemia s/p transfusion JF on CPAP Plan Continue PT/OT Team Conference next week Adjust bowel meds for constipation see orders Lactulose and Fleets Co-Morbidities that are continuing to impact the rehab process: (include details ) LINDA MCKEON MD May 22, 2018 08:45
[2018-05-22] MEDS ORDERED: FLUTICASONE NASAL SPRAY (FLONASE) 16 GM BTL NS SCH (09:00)
--- NOTE | 2018-05-22 11:42 | Occupational Ther Daily Note ---
OT Current Status-Daily Note Subjective Pt. reports no pain. Pt was dressed with assist of nursing stating that she wanted to get dressed before OT got there. Pt agrees to work with OT. Appearance Pt is sitting in wc when OT enters room, is dressed and alert. Mental Status/Objective Patient Orientation: Person, Place, Time, Situation Functional [place] Measure 0=Not Assessed/NA 4=Minimal Assistance 1=Total Assistance 5=Supervision or Setup 2=Maximal Assistance 6=Modified [place] 3=Moderate Assistance 7=Complete [place] ADL-Treatment Functional [place] Measure 0=Not Assessed/NA 4=Minimal Assistance 1=Total Assistance 5=Supervision or Setup 2=Maximal Assistance 6=Modified [place] 3=Moderate Assistance 7=Complete IndependenceIRFPAI Quality Coding Scale 6 Independent with activity with or without an assistive device 5 Patient requires set up or clean up by helper. Patient completes activity by themselves 4 Supervision or touching assist (CGA). [place] provide cues , steadying assist 3 The helper provides less than half the effort to complete the activity 2 The helper provides more than half the effort to complete the activity 1 Dependent. The helper does all the effort to complete an activity 7 Patient refused to complete or attempt activity 9 The patient did not perform the activity before the current illness or injury 88 Not attempted due to Medical conditions or safety concerns Grooming (FIM): 5 (Pt was able to brush her hair and her teeth with setup at wc level. ) Oral Hygiene (QC): 5 Upper Body (FIM): 5 (Pt was able to doff and don shirt with setup in wc. ) Upper Body Dressing (QC): 5 Toileting (FIM): 3 (Pt was able to pull down pants, clean ivan area, but needed assistance pulling her pants back up. ) Toileting Hygiene (QC): 3 Toilet/Commode Transfer (FIM): 4 (Pt need min assist to transfer from wc to toilet using grab bars. ) Toilet Transfer (QC): 3 Other Treatment Pt able to propel wc with SBA from room to gym for therapy. Pt participated in arm strengthening and activity tolerance on armbike for 15 minutes at low resistance. Pt did not require any rest breaks. Pt participated in strengthening and AROM exercises with red theraband for UE. Pt completed 5 exercises at 12 reps each focusing on shoulder and elbow movements.Pt did 10 wheelchair pushups to increase strength for transfers. Pt was able to propel herself back to her room. Pt returned to room for toileting. Pt transferred to recliner with CGA from using fww. All needs were met. Education OT Patient Education: Exercise program Teaching Recipient: Patient Teaching Methods: Demonstration Response to Teaching: Return Demonstration OT Short Term Goals Short Term Goals Time Frame: May 28, 2018 Eating(FIM): 5 Grooming(FIM): 5 Bathing(FIM): 5 Upper Body Dressing(FIM): 5 Lower Body Dressing(FIM): 4 Toileting(FIM): 5 Transfers (B,C,W/C) (FIM): 5 Toilet/Commode Transfer(FIM): 5 Additional Short Term Goals: 1-Demonstrate ADL Tasks, 2-Verbalize Understanding , 3-ImproveStrength/Emmy 1=Demonstrate adherence to instructed precautions during ADL tasks. 2=Patient will verbalize/demonstrate understanding of assistive devices/ modifications for ADL. 3=Patient will improve strength/tolerance for activity to enable patient to perform ADL's. OT Skilled Nursing Goals Skilled Nursing Goals Time Frame: Jun 04, 2018 Eating (FIM): 6 Eating (QC): 6 Groomin Oral Hygiene (QC): 6 Bathing(FIM): 5 Shower/Bathe Self (QC): 5 Upper Body Dressing(FIM): 6 Upper Body Dressing (QC): 6 Lower Body Dressing(FIM): 5 Lower Body Dressing (QC): 5 On/Off Footwear (QC): 5 Toileting(FIM): 6 Toileting Hygiene (QC): 6 Transfers (B,C,W/C) (FIM): 6 Toilet/Commode Transfer(FIM): 6 Toilet/Commode Transfer (QC): 6 Shower Transfer(FIM): 5 Additional Goals: 1-Demonstrate ADL Tasks, 2-Verbalize Understanding, 3- ImproveStrength/Emmy 1=Demonstrate adherence to instructed precautions during ADL tasks. 2=Patient will verbalize/demonstrate understanding of assistive devices/ modifications for ADL. 3=Patient will improve strength/tolerance for activity to enable patient to perform ADL's. OT Education/Plan Discharge Recommendations Plan/Recommendations: Continue POC Treatment Plan/Plan of Care Patient would benefit from OT for education, treatment and training to promote independence in ADL's, mobility, safety and/or upper extremity function for ADL' s. Plan of Care: ADL Retraining, Caregiver Training, Functional Mobility, Group Exercise/Act as Ind, UE Funct Exercise/Act Treatment Duration: Jun 04, 2018 Frequency: At least 5 of 7 days/Wk (IRF) Estimated Hrs Per Day: 1.5 hours per day Agreement: Yes Rehab Potential: Good Time/GCodes Start Time: 09:00 Stop Time: 10:00 Total Time Billed (hr/min): 60 Billed Treatment Time 1, EX x 3 (40 minutes), ADL x 1 (20 minutes). JEMMA JACKSON OT May 22, 2018 11:42
--- NOTE | 2018-05-22 12:05 | Physical Therapy Daily Note ---
PT Daily Note-Current Subjective Pt. somewhat confused states repeatedly that her amputation took place "good Friday" . Pt. laughs this Rx and seems to take TRF safety lightly. Agrees to Rx and states she has a good system at home living with her daughter Pain Numeric Pain Scale: 0-No Pain Appearance abdomen significantly larger in bulk on left than right, pt. states she doesnt know if this is different than usual. with palpation soft, no c/o tenderness Mental Status Patient Orientation: Person, Place Transfers Functional Weber Measure 0=Not Assessed/NA 4=Minimal Assistance 1=Total Assistance 5=Supervision or Setup 2=Maximal Assistance 6=Modified [place] 3=Moderate Assistance 7=Complete IndependenceIRFPAI Quality Coding Scale 6 Independent with activity with or without an assistive device 5 Patient requires set up or clean up by helper. Patient completes activity by themselves 4 Supervision or touching assist (CGA). [place] provide cues , steadying assist 3 The helper provides less than half the effort to complete the activity 2 The helper provides more than half the effort to complete the activity 1 Dependent. The helper does all the effort to complete an activity 7 Patient refused to complete or attempt activity 9 The patient did not perform the activity before the current illness or injury 88 Not attempted due to Medical conditions or safety concerns Transfers (B, C, W/C) (FIM): 3 Scootin Rollin Supine to/from Sit: 5 Sit to/from Stand: 4 Bed to/from Chair: 3 pt. haphazard at times with TRFs, needs CGA to mod assist for safe transition Weight Bearing Right Lower Extremity: Right Full Weight Bearing Left Lower Extremity: Left Non Weight Bearing Gait Training Does the Patient Walk?: Yes Gait (FIM): 1 Distance (FIM): 1=up to 49 ft (5ft x 2) Gait Level of Assist: 3 Gait Persons Needed: 1 Gait Assistive Device: FWW gait non functional, loss of control , melts while trying to hop on one foot. Wheelchair Training Does the Pt Use a Wheelchair?: Yes Wheelchair (FIM): 4 Wheelchair Distance: 3=150 ft Wheelchair Level of Assist: 4 Type of Wheelchair: Manual needs instruction and direction for brakes and handling w/c in to small spaces etc Exercises Supine Ex: Bridging, Ankle pumps, Quad Set, Rolling, Glut sets, Heel Slides, Short Arc Quads, Scooting, Straight leg raise, Hip abd/add Supine Reps: 10 (x2) Seated Therapy Exercises: Ankle pumps, Sit to stand, Long arc quads, Hip flexion Seated Reps: 15 Treatments toileted mod assist for TRFs and for safe management of pants up and down Assessment Current Status: Good Progress dependent for safe mobility PT Short Term Goals Short Term Goals Time Frame: May 27, 2018 Transfers (B,C,W/C) (FIM): 5 Wheelchair Distance: 150 ft PT Outdoor Adventure Leader Goals Outdoor Adventure Leader Goals PT Outdoor Adventure Leader Goals Time Frame: Jun 04, 2018 Transfers (B,C,W/C) (FIM): 6 Sit to Lying (QC): 6 Lying-Sitting on Side/Bed(QC): 6 Sit to Stand (QC): 6 Roll Left to Right (QC): 6 Chair/Ucz-xc-Kinbn Xfer(QC): 6 Car Transfer (QC): 6 Does the Patient Walk: No and Walking Goal NOT indicated Wheelchair (FIM): 6 Wheelchair distance (FIM): 3=150 ft Wheelchair Level of Assist: 6 Wheel 50 feet with 2 turns (QC: 6 Stairs (FIM): 88 Picking up an Object (QC): 88 PT Plan Treatment/Plan Treatment Plan: Continue Plan of Care Treatment Plan: Bed Mobility, Education, Functional Activity Emmy, Functional Strength, Group Therapy, Gait (hopping), Safety, Therapeutic Exercise, Transfers Treatment Duration: Jun 04, 2018 Frequency: At least 5 of 7 days/Wk (IRF) Estimated Hrs Per Day: 1.5 hours per day Patient and/or Family Agrees t: Yes Safety Risks/Education Patient Education: Gait Training, Transfer Techniques, Correct Positioning, W/ C Management, Disease Process, Safety Issues Teaching Recipient: Patient Teaching Methods: Demonstration, Discussion Response to Teaching: Verbalize Understanding, Return Demonstration, Reinforcement Needed needs much instruction and mod to min assist for all functional mob Time/GCodes Time In: 1100 Time Out: 1200 Total Billed Treatment Time: 60 Total Billed Treatment 1,WC20m,FA25m,EX15m G Codes Necessary: JAQUAN Rivera STUDENT SUPPORT SERVICES DIRECTOR May 22, 2018 12:05
[2018-05-22] MEDS: LACTULOSE SYRUP 10GM/15ML (ENULOSE) 30ML UDC PO SCH ×2 (12:06→21:00)
[2018-05-22] MEDS: FLUTICASONE NASAL SPRAY (FLONASE) 16 GM BTL NS SCH (12:12)
--- NOTE | 2018-05-22 14:29 | Therapy Group Daily Note ---
Therapy Daily Group Note Patient Education Topic Other List Below (memory loss and strategies, aging and the 5 senses) Other/Notes Pt. participated in PT OT group this date. Pt. very social, introducing herself and sharing "what I would be famous for" . Pts. were educated on the affects of aging on the 5 senses , as well as memory and aging and strategies for managing memory loss. Pts. all participated in memory game by matching images etc. Pt. to from room by w/c with assist. In room after with hernandez at hand Start Time: 13:00 Stop Time: 14:10 Total Billed Treatment Time: 70 Total Billed Treatment 1,GRP JAQUAN THAKUR ASSISTANT IMPORT MANAGER May 22, 2018 14:29
[2018-05-22] MEDS: MECLIZINE 25 MG (ANTIVERT) TAB PO SCH (15:58)
[2018-05-22 18:39] VITALS: BP 151/73
[2018-05-22] MEDS: RT-ALBUTEROL SULF 2.5 MG/3 ML PRE-MIX VIAL INH SCH (19:47)
[2018-05-22] MEDS: traZODone 100 MG (DESYREL) TAB PO SCH (20:59)
[2018-05-22] MEDS: ATORVASTATIN 40 MG (LIPITOR) TABLET PO SCH (20:59)
[2018-05-22] MEDS: inSUlin DETERMIR 1 UNIT/0.01 ML (LEVEMIR) CHARGE PER UNIT SQ SCH (21:00)
[2018-05-23] MEDS: TROSPIUM 20 MG (SANCTURA) TAB PO SCH ×2 (06:26→15:53)
[2018-05-23] MEDS: LEVOTHYROXINE 125 MCG (LEVOTHROID) TABLET PO SCH (06:26)
[2018-05-23 06:28] VITALS: BP 118/67
[2018-05-23] MEDS: inSUlin ASPART (NovoLOG) 1 UNIT/0.01 ML (CHARGE PER UNIT) SC SCH ×5 (07:19→20:51)
[2018-05-23] MEDS: RT-ALBUTEROL SULF 2.5 MG/3 ML PRE-MIX VIAL INH SCH ×2 (07:47→19:40)
[2018-05-23] MEDS: RT-ADVAIR HFA 115/21 MCG PER PUFF IH SCH ×2 (07:47→19:40)
[2018-05-23] MEDS: UMECLIDINIUM BROMIDE (INCRUSE ELLIPTA) 7'S IH SCH (07:47)
[2018-05-23 07:52] VITALS: BP 151/73
[2018-05-23 08:20] VITALS: BP 114/60
[2018-05-23] MEDS: ASPIRIN E.C. 325 MG (ECOTRIN) TABLET PO SCH (08:22)
[2018-05-23] MEDS: LORATADINE (CLARITIN) 10 MG TAB PO SCH (08:23)
[2018-05-23] MEDS: OLMESARTAN 20 MG (BENICAR) TABLET PO SCH (08:23)
[2018-05-23] MEDS: MECLIZINE 25 MG (ANTIVERT) TAB PO SCH (08:23)
[2018-05-23] MEDS: PREGABALIN 100 MG (LYRICA) CAPSULE PO SCH ×3 (08:23→20:37)
[2018-05-23] MEDS: FUROSEMIDE 40 MG (LASIX) TAB PO SCH (08:23)
[2018-05-23] MEDS: SERTRALINE 50 MG (ZOLOFT) TABLET PO SCH (08:23)
[2018-05-23] MEDS: LACTULOSE SYRUP 10GM/15ML (ENULOSE) 30ML UDC PO SCH ×2 (08:24→20:37)
[2018-05-23] MEDS: SENNA W/DOCUSATE (SENOKOT S) TABLET PO SCH ×2 (08:24→20:36)
[2018-05-23] MEDS: ENOXAPARIN 40 MG/0.4 ML (LOVENOX) SYR SC SCH (08:25)
[2018-05-23] MEDS: FLUTICASONE NASAL SPRAY (FLONASE) 16 GM BTL NS SCH (08:27)
--- NOTE | 2018-05-23 10:10 | Physical Therapy Daily Note ---
PT Daily Note-Current Subjective Pt. sitting up in chair crocheting, and expresses a little emotion "this is all I ever do". Pt. states she hasnt had a BM for 8 days. This GEODETIC TECHNICIAN offers a large container of ice water and encouraged lots of fluids. Pt. agreeable Pain Numeric Pain Scale: 0-No Pain Mental Status Patient Orientation: Confused pts timeline and follow through of stories and history incorrect Transfers Functional [place] Measure 0=Not Assessed/NA 4=Minimal Assistance 1=Total Assistance 5=Supervision or Setup 2=Maximal Assistance 6=Modified [place] 3=Moderate Assistance 7=Complete IndependenceIRFPAI Quality Coding Scale 6 Independent with activity with or without an assistive device 5 Patient requires set up or clean up by helper. Patient completes activity by themselves 4 Supervision or touching assist (CGA). [place] provide cues , steadying assist 3 The helper provides less than half the effort to complete the activity 2 The helper provides more than half the effort to complete the activity 1 Dependent. The helper does all the effort to complete an activity 7 Patient refused to complete or attempt activity 9 The patient did not perform the activity before the current illness or injury 88 Not attempted due to Medical conditions or safety concerns Transfers (B, C, W/C) (FIM): 4 Scootin Rollin Supine to/from Sit: 5 Sit to/from Stand: 4 Bed to/from Chair: 4 Weight Bearing Right Lower Extremity: Right Full Weight Bearing Left Lower Extremity: Left Non Weight Bearing Wheelchair Training Does the Pt Use a Wheelchair?: Yes Wheelchair (FIM): 4 Wheelchair Distance: 3=150 ft Wheelchair Level of Assist: 4 Type of Wheelchair: Manual Exercises Seated Therapy Exercises: Ankle pumps, Long arc quads, Hip flexion Seated Reps: 15 Standing: Hip Abduction, Hamstring curls, 3 way Ex=Flex, Abd, Ext Standing Reps: 15 rested between exercises Treatments toileted with min assist, pereformed several SPTs CGA Assessment Current Status: Good Progress safer functional mob today PT Short Term Goals Short Term Goals Time Frame: May 27, 2018 Transfers (B,C,W/C) (FIM): 5 Wheelchair Distance: 150 ft PT Security System Technician Goals Security System Technician Goals PT Security System Technician Goals Time Frame: Jun 04, 2018 Transfers (B,C,W/C) (FIM): 6 Sit to Lying (QC): 6 Lying-Sitting on Side/Bed(QC): 6 Sit to Stand (QC): 6 Rollin Roll Left to Right (QC): 6 Chair/Trw-lw-Uzdfl Xfer(QC): 6 Car Transfer (QC): 6 Does the Patient Walk: No and Walking Goal NOT indicated Wheelchair (FIM): 6 Wheelchair distance (FIM): 3=150 ft Wheelchair Level of Assist: 6 Wheel 50 feet with 2 turns (QC: 6 Stairs (FIM): 88 Picking up an Object (QC): 88 PT Plan Treatment/Plan Treatment Plan: Continue Plan of Care Treatment Plan: Bed Mobility, Education, Functional Activity Emmy, Functional Strength, Group Therapy, Gait (hopping), Safety, Therapeutic Exercise, Transfers Treatment Duration: Jun 04, 2018 Frequency: At least 5 of 7 days/Wk (IRF) Estimated Hrs Per Day: 1.5 hours per day Patient and/or Family Agrees t: Yes Safety Risks/Education Patient Education: Transfer Techniques, Correct Positioning, W/C Management, Disease Process, Safety Issues Teaching Recipient: Patient Teaching Methods: Demonstration, Discussion Response to Teaching: Verbalize Understanding, Return Demonstration, Reinforcement Needed Time/GCodes Time In: 930 Time Out: 955 Total Billed Treatment Time: 25 Total Billed Treatment 1,WC10m,EX15m G Codes Necessary: JAQUAN Rivera PTA May 23, 2018 10:09
[2018-05-23 15:55] VITALS: BP 121/74
[2018-05-23] MEDS: ATORVASTATIN 40 MG (LIPITOR) TABLET PO SCH (20:36)
[2018-05-23] MEDS: traZODone 100 MG (DESYREL) TAB PO SCH (20:36)
[2018-05-23] MEDS: inSUlin DETERMIR 1 UNIT/0.01 ML (LEVEMIR) CHARGE PER UNIT SQ SCH (20:37)
[2018-05-24 05:48] VITALS: BP 148/70
[2018-05-24] MEDS: inSUlin ASPART (NovoLOG) 1 UNIT/0.01 ML (CHARGE PER UNIT) SC SCH ×5 (05:51→21:08)
[2018-05-24] MEDS: LEVOTHYROXINE 125 MCG (LEVOTHROID) TABLET PO SCH (06:34)
[2018-05-24] MEDS: TROSPIUM 20 MG (SANCTURA) TAB PO SCH ×2 (06:34→15:48)
[2018-05-24 08:13] VITALS: BP 131/66
[2018-05-24] MEDS: MECLIZINE 25 MG (ANTIVERT) TAB PO SCH (08:14)
[2018-05-24] MEDS: PREGABALIN 100 MG (LYRICA) CAPSULE PO SCH ×3 (08:14→21:09)
[2018-05-24] MEDS: SERTRALINE 50 MG (ZOLOFT) TABLET PO SCH (08:15)
[2018-05-24] MEDS: LORATADINE (CLARITIN) 10 MG TAB PO SCH (08:15)
[2018-05-24] MEDS: SENNA W/DOCUSATE (SENOKOT S) TABLET PO SCH ×2 (08:15→21:10)
[2018-05-24] MEDS: FUROSEMIDE 40 MG (LASIX) TAB PO SCH (08:15)
[2018-05-24] MEDS: ENOXAPARIN 40 MG/0.4 ML (LOVENOX) SYR SC SCH (08:15)
[2018-05-24] MEDS: OLMESARTAN 20 MG (BENICAR) TABLET PO SCH (08:15)
[2018-05-24] MEDS: ASPIRIN E.C. 325 MG (ECOTRIN) TABLET PO SCH (08:15)
[2018-05-24] MEDS: LACTULOSE SYRUP 10GM/15ML (ENULOSE) 30ML UDC PO SCH ×2 (08:16→21:09)
[2018-05-24] MEDS: FLUTICASONE NASAL SPRAY (FLONASE) 16 GM BTL NS SCH (08:44)
[2018-05-24] MEDS: RT-ADVAIR HFA 115/21 MCG PER PUFF IH SCH ×2 (08:52→19:18)
[2018-05-24] MEDS: UMECLIDINIUM BROMIDE (INCRUSE ELLIPTA) 7'S IH SCH (08:52)
[2018-05-24] MEDS: RT-ALBUTEROL SULF 2.5 MG/3 ML PRE-MIX VIAL INH SCH ×2 (08:52→19:18)
[2018-05-24 17:15] VITALS: BP 145/70
[2018-05-24] MEDS: inSUlin DETERMIR 1 UNIT/0.01 ML (LEVEMIR) CHARGE PER UNIT SQ SCH (21:08)
[2018-05-24] MEDS: ATORVASTATIN 40 MG (LIPITOR) TABLET PO SCH (21:09)
[2018-05-24] MEDS: traZODone 100 MG (DESYREL) TAB PO SCH (21:09)
--- NOTE | 2018-05-24 21:48 | PM & R (SOAP) Progress Note ---
Subjective This was a face to face visit with the patient. Date Seen by Provider: May 24, 2018 Time Seen by Provider: 21:40 Subjective/Events-last exam Patient was seen in her room this evening Patient min assist for transfers Discussed case with RN [place] trending upward will adjust diet/meds as needed Objective Physician Exam Last Set of Vital Signs Vital Signs Date Time Temp Pulse Resp B/P (MAP) Pulse Ox O2 Delivery O2 Flow Rate FiO2 05/24/18 21:37 Room Air 05/24/18 19:19 97 05/24/18 17:15 98.5 68 18 145/70 (95) 05/22/18 19:48 2.00 Capillary Refill : I&O Intake and Output 05/24/18 00:00 Intake Total 2112 ml Balance 2112 ml Intake Oral 2112 ml # Voids 12 # Bowel Movements 5 General: Alert, Oriented X3, Cooperative, No Acute Distress HEENT: Atraumatic, PERRLA, EOMI, Mucous Memb Moist/[place] Neck: Supple, No JVD Lungs: Clear to Auscultation Heart: Regular Rate Abdomen: Normal Bowel Sounds, Other (mildly distended) Extremities: Other Neuro: Other (functional strength BUES RTlower limb 4/5) Psych/Mental Status: Mental Status NL Results Lab Data Laboratory Tests 05/22/18 04:53: Glucometer 108 05/22/18 11:08: Glucometer 188H 05/22/18 15:48: Glucometer 236H 05/22/18 20:58: Glucometer 174H 05/23/18 06:28: Glucometer 132H 05/23/18 11:46: Glucometer 220H 05/23/18 15:53: Glucometer 153H 05/23/18 20:43: Glucometer 220H 05/24/18 05:35: Glucometer 122H 05/24/18 11:25: Glucometer 215H 05/24/18 15:48: Glucometer 166H 05/24/18 21:02: Glucometer 260H Assessment/Plan Assessment and Plan 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
[2018-05-25 05:07] VITALS: BP 155/69
[2018-05-25] MEDS: inSUlin ASPART (NovoLOG) 1 UNIT/0.01 ML (CHARGE PER UNIT) SC SCH ×5 (05:49→21:46)
[2018-05-25] MEDS: TROSPIUM 20 MG (SANCTURA) TAB PO SCH ×2 (06:10→16:43)
[2018-05-25] MEDS: LEVOTHYROXINE 125 MCG (LEVOTHROID) TABLET PO SCH (06:10)
[2018-05-25] MEDS: RT-ALBUTEROL SULF 2.5 MG/3 ML PRE-MIX VIAL INH SCH ×2 (07:11→20:11)
[2018-05-25] MEDS: RT-ADVAIR HFA 115/21 MCG PER PUFF IH SCH ×2 (07:12→20:11)
[2018-05-25] MEDS: UMECLIDINIUM BROMIDE (INCRUSE ELLIPTA) 7'S IH SCH (07:13)
[2018-05-25 07:56] LABS: HEMOGLOBIN 8.6 G/DL (11.5-16.0); MEAN PLATELET VOLUME 9.3 FL (7.4-10.4); RED BLOOD COUNT 3.11 10^6/uL (4.35-5.85); RED CELL DISTRIBUTION WIDTH 17.1 % (10.0-14.5); WHITE BLOOD COUNT 12.6 10^3/uL (4.3-11.0)
--- NOTE | 2018-05-25 08:02 | PM & R (SOAP) Progress Note ---
Subjective This was a face to face visit with the patient. Date Seen by Provider: May 25, 2018 Time Seen by Provider: 07:35 Subjective/Events-last exam Patient was seen in her room this AM Patient min assist for transfers.Diet changed to carb consistent for better control of DM Date Identified: May 25, 2018 Time Identified: 07:30 Medication Intervention: Diet changed to carb consistent Objective Physician Exam Last Set of Vital Signs Vital Signs Date Time Temp Pulse Resp B/P (MAP) Pulse Ox O2 Delivery O2 Flow Rate FiO2 05/25/18 07:11 97 Room Air 05/25/18 05:07 97.0 67 18 155/69 (97) 05/22/18 19:48 2.00 Capillary Refill : I&O Intake and Output 05/25/18 00:00 Intake Total 1604 ml Balance 1604 ml Intake Oral 1604 ml # Voids 11 # Bowel Movements 4 General: Alert, Oriented X3, Cooperative, No Acute Distress HEENT: Atraumatic, PERRLA, EOMI, Mucous Memb Moist/[employer] Neck: Supple, No JVD Lungs: Clear to Auscultation Heart: Regular Rate Abdomen: Normal Bowel Sounds, Other (mildly distended) Extremities: Other Neuro: Other (functional strength BUES RTlower limb 4/5) Psych/Mental Status: Mental Status NL Results Lab Data Laboratory Tests 05/22/18 11:08: Glucometer 188H 05/22/18 15:48: Glucometer 236H 05/22/18 20:58: Glucometer 174H 05/23/18 06:28: Glucometer 132H 05/23/18 11:46: Glucometer 220H 05/23/18 15:53: Glucometer 153H 05/23/18 20:43: Glucometer 220H 05/24/18 05:35: Glucometer 122H 05/24/18 11:25: Glucometer 215H 05/24/18 15:48: Glucometer 166H 05/24/18 21:02: Glucometer 260H 05/25/18 05:38: Glucometer 160H 05/25/18 07:47: White Blood Count 12.6H, Red Blood Count 3.11L, Hemoglobin 8.6L, Hematocrit 27L , Mean Corpuscular Volume 86, Mean Corpuscular Hemoglobin 28, Mean Corpuscular Hemoglobin Concent 32, Red Cell Distribution Width 17.1H, Platelet Count 179, Mean Platelet Volume 9.3 Assessment/Plan Assessment and Plan 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
[2018-05-25 08:13] LABS: CALCIUM 10.1 MG/DL (8.5-10.1); CREATININE SERUM 1.29 MG/DL (0.60-1.30); POTASSIUM 4.3 MMOL/L (3.6-5.0)
--- NOTE | 2018-05-25 08:25 | Individualized Plan of Care ---
Individualized Plan of Care Rehab Nursing IPOC Order Admission Date May 21, 2018 at 11:38 Current Orders Orders Pt Evaluate/Treat Request (05/21/18 10:10) Request Ot Evaluate & Treat (05/21/18 10:10) Request For Cognitive Services (05/21/18 10:10) Admission Arrival Bed Request (05/21/18 11:37) Admission Order(Inpt,Obs,Sdc) (05/21/18 11:44) Vital Signs: Routine (Order) 08,16,00 (05/21/18 11:44) Acid Washer Operator-Inpt Rehab Con (05/21/18 11:44) Rehab Nursing Orders-Ipoc (05/21/18 11:44) Physical Therapy Rehab Orders (05/21/18 11:44) Occupational Therapy Rehab Ord (05/21/18 11:44) Speech Therapy Rehab Orders (05/21/18 11:44) Turn And Reposition Q2HR (05/21/18 11:44) Intake & Output 06,14,22 (05/21/18 11:44) Precautions (Aru) (05/21/18 11:44) Weekly Weight (Lbs) WEEK (05/21/18 11:44) Code/Resuscitation (05/21/18 11:44) Initiate Admission Nursing Pro .admission (05/21/18 11:44) Code/Resuscitation (05/21/18 11:49) Justin Zayas (05/21/18 11:49) Weight Bearing Status (05/21/18 11:49) (Nf) Insulin Degludec (Tresiba Flextouch (05/21/18 21:00) Aspirin Enteric Coated Tablet (Ecotrin T (05/22/18 09:00) Albuterol Pre-Mix Nebs (Rt) (Proventil (05/21/18 12:00) Atorvastatin Tablet (Lipitor) (05/21/18 21:00) Citalopram Tablet (Celexa Tablet) (05/21/18 21:00) Bisacodyl Suppository (Dulcolax Supposit (05/21/18 12:00) Fluticasone Nasal [place] (Flonase Nasal S (05/22/18 09:00) Fluticasone/Salmeterol Common (Advair 11 (05/21/18 20:00) Furosemide Tablet (Lasix Tablet) (05/22/18 09:00) Levothyroxine Tablet (Synthroid Tablet) (05/22/18 06:30) Loratadine Tablet (Claritin Tablet) (05/22/18 09:00) Hydrocodone/Apap 10/325 Tablet (Lortab 1 (05/21/18 12:00) Enoxaparin Injection (Lovenox Injection) (05/22/18 09:00) Meclizine Tablet (Antivert Tablet) (05/22/18 09:00) Olmesartan Tablet (Benicar Tablet) (05/22/18 09:00) Pregabalin Capsule (Lyrica Capsule) (05/21/18 15:00) Senna S Tablet (Senokot S Tablet) (05/21/18 21:00) Sertraline Tablet (Zoloft Tablet) (05/22/18 09:00) Trospium Tablet (Sanctura Tablet) (05/21/18 16:00) Umeclidinium Ash Inhaler (Incruse El (05/22/18 09:00) Insulin Determir (Per Unit) (Levemir (Pe (05/21/18 21:00) Metoprolol Succinate (Xl) Tab (Toprol Xl (05/21/18 21:00) Trazodone Tablet (Desyrel Tablet) (05/21/18 21:00) Consult Physician (05/21/18 11:49) Svn Small Volume Nebulizer (05/21/18 11:49) Mdi Treatment (05/21/18 11:49) General/Regular (05/21/18 Lunch) Insulin Aspart (Novolog) (Novolog (Charg (05/22/18 12:00) Insulin Aspart (Novolog) (Novolog (Charg (05/21/18 12:45) Patient Visit (05/21/18 ) Functional Activities, Ea 15 (05/21/18 ) Patient Visit (05/21/18 ) Pt Eval Moderate Complexity (05/21/18 ) Functional Activities, Ea 15 (05/21/18 ) Patient Visit (05/21/18 ) Ambulate 08,12,20 (05/21/18 15:36) Sequential Compression Device 08,20 (05/21/18 15:36) Dvt/Vte Risk - Notifiy Physici 08 (05/21/18 15:36) Patient Visit (05/21/18 ) Speech Sound Lang Comp (05/21/18 ) Na Phos/Na Biphos Enema (Fleet Enema Brian (05/22/18 08:45) Lactulose Oral Solution (Enulose Oral So (05/22/18 09:00) Fluticasone Nasal [place] (Flonase Nasal S (05/22/18 09:56) Pharmacy Consult/Message (05/22/18 12:44) Patient Visit (05/22/18 ) Wheelchair Mgmt/Propulsn 15min (05/22/18 ) Functional Activities, Ea 15 (05/22/18 ) Exercise Therap, Ea 15 Min (05/22/18 ) Therapeutic, Group (05/22/18 ) Albuterol Pre-Mix Nebs (Rt) (Proventil (05/22/18 21:00) Svn Small Volume Nebulizer (05/22/18 19:34) Mat Initiate Protocol (05/23/18 07:52) Patient Visit (05/23/18 ) Wheelchair Mgmt/Propulsn 15min (05/23/18 ) Exercise Therap, Ea 15 Min (05/23/18 ) Cbc No Diff (05/25/18 06:00) Basic Metabolic Panel (05/25/18 06:00) Cho 60g/M 1snack (16-2000 Víctor) (05/25/18 Breakfast) Rehab Nursing Orders: Ongoing Assess. of Cognitive Status, Ongoing Assess. of Function Status, Disease Management & Educaiton, DVT Prophylaxis, Fall Prevention, Fluid/Electrolyte/Nutrition Mgmt, Infection Prevention, Medication Management & Education, Management of Risks & Complications, Management of Skin Intergrity, Nutrition Management, Pain Management, Patient/Family Support, Weight Bearing Precaution, Wound Management PT IPOC Problem List: Activity Tolerance, Functional Strength, Safety, Balance, Transfer, Bed Mobility Treatment Plan: Continue Plan of Care Bed Mobility, Education, Functional Activity Emmy, Functional Strength, Group Therapy, Gait (hopping), Safety, Therapeutic Exercise, Transfers Treatment Duration: Jun 04, 2018 Frequency: At least 5 of 7 days/Wk (IRF) Estimated Hrs Per Day: 1.5 hours per day OT IPOC Problems: Decreased Activ Tolerance, Dependent Transfers, Impaired Bed Mobility , Impaired Funct Balance, Impaired I ADL's, Impaired Self-Care Skills OT Treatment, Training and Edu: Yes Plan of Care: ADL Retraining, Caregiver Training, Functional Mobility, Group Exercise/Act as Ind, UE Funct Exercise/Act Treatment Duration: Jun 04, 2018 Frequency: At least 5 of 7 days/Wk (IRF) Estimated Hrs Per Day: 1.[address] IPOC Speech Therapy Treatment Plan: Discontinue ST Treatment Duration: May 25, 2018 Frequency: Modified Program (IRF) (0) Estimated Hrs Per Day: Other (0) Acid Washer Operator/Case Mgmt Acid Washer Operator/Case Managemen: Discharge Planning, Patient/Family Counseling Dietitian/Stone Sandblaster Dietitian/Stone Sandblaster to monitor nutritional status and make changes and/or recommendations as needed and work with speech pathology on dietary upgrades as the occur. Physician IPOC Medical Issues being managed closely and that require the 24 hour availability of a physician: Postop constipation DM HTN Postop anemia JF on cpap PVD IGC code 05.4 Etiologic DX Left BKA Medical Issues: Bowel/Bladder Function, DVT Prophylaxis, Falls Precautions, Fluid/Electrolyte/Nutrition Balance, Infection Protection, Pain Management, Weight Bearing Precautions, Wound Care, Other (List) (as per above) Brief Synthesis of Preadmission Screen, Post-Admission Evaluation, and Therapy Evaluations: 83 yo female s/p Left BKA for complication of DM with charcot foot who had been Modified Independent with a walker and living with family prior to surgery.PMH as per above.referrred to IRU for amputee rehab Medical Prognosis: Good Anticipated Length of Stay: 2 weeks Modified Independent to supervision for adls and mobility skills at the w/c level of function due to recent BKA Anticipated d/c Destination: Home with family and [facility] LINDA MCKEON MD May 25, 2018 08:25
[2018-05-25] MEDS: FUROSEMIDE 40 MG (LASIX) TAB PO SCH (08:38)
[2018-05-25] MEDS: ASPIRIN E.C. 325 MG (ECOTRIN) TABLET PO SCH (08:39)
[2018-05-25] MEDS: OLMESARTAN 20 MG (BENICAR) TABLET PO SCH (08:39)
[2018-05-25] MEDS: SENNA W/DOCUSATE (SENOKOT S) TABLET PO SCH ×2 (08:39→21:46)
[2018-05-25] MEDS: SERTRALINE 50 MG (ZOLOFT) TABLET PO SCH (08:39)
[2018-05-25] MEDS: MECLIZINE 25 MG (ANTIVERT) TAB PO SCH (08:39)
[2018-05-25] MEDS: LORATADINE (CLARITIN) 10 MG TAB PO SCH (08:39)
[2018-05-25] MEDS: ENOXAPARIN 40 MG/0.4 ML (LOVENOX) SYR SC SCH (08:40)
[2018-05-25] MEDS: FLUTICASONE NASAL SPRAY (FLONASE) 16 GM BTL NS SCH (08:40)
[2018-05-25] MEDS: PREGABALIN 100 MG (LYRICA) CAPSULE PO SCH ×3 (08:40→21:46)
--- NOTE | 2018-05-25 10:06 | Occupational Ther Daily Note ---
OT Current Status-Daily Note Subjective Pt sitting in w/c, agrees to treatment, states she feels good this morning. Mental Status/Objective Functional [place] Measure 0=Not Assessed/NA 4=Minimal Assistance 1=Total Assistance 5=Supervision or Setup 2=Maximal Assistance 6=Modified [place] 3=Moderate Assistance 7=Complete [place] ADL-Treatment Pt declined shower, states she had one yesterday. But would like sponge bath this morning. W/c mobility to restroom with SBA. Pt completed sponge bath seated at sink. Upper body bathing completed with SBA. Pt washed lower body with minimal assistance. Don bra and shirt with set up. Pt able to thread bilateral LE into pants, but requires minimal assistance to pull pants up over hips on left side. Min assist to maintain balance during LE dressing. Pt toileted x2 during session. Transfer to toilet using grab bars with CGA and cues for safety. Pt able to pull pants down and complete toileting hygiene, but required assist to pull pants back up. Washed hands at sink without assistance. Pt brushed teeth and combed hair with modified independence. Functional [place] Measure 0=Not Assessed/NA 4=Minimal Assistance 1=Total Assistance 5=Supervision or Setup 2=Maximal Assistance 6=Modified [place] 3=Moderate Assistance 7=Complete IndependenceIRFPAI Quality Coding Scale 6 Independent with activity with or without an assistive device 5 Patient requires set up or clean up by helper. Patient completes activity by themselves 4 Supervision or touching assist (CGA). [place] provide cues , steadying assist 3 The helper provides less than half the effort to complete the activity 2 The helper provides more than half the effort to complete the activity 1 Dependent. The helper does all the effort to complete an activity 7 Patient refused to complete or attempt activity 9 The patient did not perform the activity before the current illness or injury 88 Not attempted due to Medical conditions or safety concerns Grooming (FIM): 6 Oral Hygiene (QC): 6 Upper Body (FIM): 5 Upper Body Dressing (QC): 5 Lower Body Dressing (FIM): 4 Lower Body Dressing (QC): 4 Toileting (FIM): 3 Toileting Hygiene (QC): 3 Toilet/Commode Transfer (FIM): 4 Other Treatment Pt performed w/c mobility to therapy gym with SBA. Arm bike [id number] to increase overall strength and activity tolerance needed for ADLs and transfers. Pt performed task with minimal resistance and slow pace. No rest breaks needed. Pt completed peg activity with bilateral UE with 1# weights in place to increase strength and coordination/manipulation skills. Pt able to complete task without assistance. Pt performed bilateral UE exercises to increase strength for functional tasks. Pt performed shoulder flexion, abduction, biceps curls, and triceps extension exercises x15 reps. Rest breaks between exercises. Pt returned to room, sitting in w/c with needs met after session. OT Short Term Goals Short Term Goals Time Frame: May 28, 2018 Eating(FIM): 5 Grooming(FIM): 5 Bathing(FIM): 5 Upper Body Dressing(FIM): 5 Lower Body Dressing(FIM): 4 Toileting(FIM): 5 Transfers (B,C,W/C) (FIM): 5 Toilet/Commode Transfer(FIM): 5 Additional Short Term Goals: 1-Demonstrate ADL Tasks, 2-Verbalize Understanding , 3-ImproveStrength/Emmy 1=Demonstrate adherence to instructed precautions during ADL tasks. 2=Patient will verbalize/demonstrate understanding of assistive devices/ modifications for ADL. 3=Patient will improve strength/tolerance for activity to enable patient to perform ADL's. OT [place] Goals [place] Goals Time Frame: Jun 04, 2018 Eating (FIM): 6 Eating (QC): 6 Groomin Oral Hygiene (QC): 6 Bathing(FIM): 5 Shower/Bathe Self (QC): 5 Upper Body Dressing(FIM): 6 Upper Body Dressing (QC): 6 Lower Body Dressing(FIM): 5 Lower Body Dressing (QC): 5 On/Off Footwear (QC): 5 Toileting(FIM): 6 Toileting Hygiene (QC): 6 Transfers (B,C,W/C) (FIM): 6 Toilet/Commode Transfer(FIM): 6 Toilet/Commode Transfer (QC): 6 Shower Transfer(FIM): 5 Additional Goals: 1-Demonstrate ADL Tasks, 2-Verbalize Understanding, 3- ImproveStrength/Emmy 1=Demonstrate adherence to instructed precautions during ADL tasks. 2=Patient will verbalize/demonstrate understanding of assistive devices/ modifications for ADL. 3=Patient will improve strength/tolerance for activity to enable patient to perform ADL's. OT Education/Plan Discharge Recommendations Plan/Recommendations: Continue POC Treatment Plan/Plan of Care Patient would benefit from OT for education, treatment and training to promote independence in ADL's, mobility, safety and/or upper extremity function for ADL' s. Plan of Care: ADL Retraining, Caregiver Training, Functional Mobility, Group Exercise/Act as Ind, UE Funct Exercise/Act Treatment Duration: Jun 04, 2018 Frequency: At least 5 of 7 days/Wk (IRF) Estimated Hrs Per Day: 1.5 hours per day Agreement: Yes Rehab Potential: Good Time/GCodes Start Time: 08:00 Stop Time: 09:30 Total Time Billed (hr/min): 90 Billed Treatment Time 1 visit, ADLx3(40minutes), EXx3(50minutes) JEMMA JACKSON OT May 25, 2018 10:06
--- NOTE | 2018-05-25 11:01 | Physical Therapy Daily Note ---
PT Daily Note-Current Subjective Pt. agrees to rx. Needed to toilet before Rx. No c/o pain. Pain Numeric Pain Scale: 0-No Pain Mental Status Patient Orientation: Person, Place Transfers Functional [place] Measure 0=Not Assessed/NA 4=Minimal Assistance 1=Total Assistance 5=Supervision or Setup 2=Maximal Assistance 6=Modified [place] 3=Moderate Assistance 7=Complete IndependenceIRFPAI Quality Coding Scale 6 Independent with activity with or without an assistive device 5 Patient requires set up or clean up by helper. Patient completes activity by themselves 4 Supervision or touching assist (CGA). [place] provide cues , steadying assist 3 The helper provides less than half the effort to complete the activity 2 The helper provides more than half the effort to complete the activity 1 Dependent. The helper does all the effort to complete an activity 7 Patient refused to complete or attempt activity 9 The patient did not perform the activity before the current illness or injury 88 Not attempted due to Medical conditions or safety concerns Transfers (B, C, W/C) (FIM): 4 Scootin Rollin Supine to/from Sit: 6 Sit to/from Stand: 4 Bed to/from Chair: 4 (SPT towars left and right) unaffected knee tends to melt Weight Bearing Right Lower Extremity: Right Full Weight Bearing Left Lower Extremity: Left Non Weight Bearing Gait Training no hops or gait today Wheelchair Training Does the Pt Use a Wheelchair?: Yes Wheelchair (FIM): 5 Wheelchair Distance: 3=150 ft Wheelchair Level of Assist: 5 Type of Wheelchair: Manual needs some guidance Exercises Supine Ex: Bridging, Ankle pumps, Quad Set, Rolling, Glut sets, Heel Slides, Short Arc Quads, Scooting, Straight leg raise, Hip abd/add Supine Reps: 15 sidelying and prone amputee exercises as well as hip flexion stretch x 30 sec with 2.5 in prop under distal femur left Treatments toileted managing clean up and pants up down with mod assist Assessment Current Status: Good Progress needs instruction for safety and technique PT Short Term Goals Short Term Goals Time Frame: May 27, 2018 Transfers (B,C,W/C) (FIM): 5 Wheelchair Distance: 150 ft PT Pearl Glue Operator Goals Pearl Glue Operator Goals PT Pearl Glue Operator Goals Time Frame: Jun 04, 2018 Transfers (B,C,W/C) (FIM): 6 Sit to Lying (QC): 6 Lying-Sitting on Side/Bed(QC): 6 Sit to Stand (QC): 6 Rollin Roll Left to Right (QC): 6 Chair/[id number] Xfer(QC): 6 Car Transfer (QC): 6 Does the Patient Walk: No and Walking Goal NOT indicated Wheelchair (FIM): 6 Wheelchair distance (FIM): 3=150 ft Wheelchair Level of Assist: 6 Wheel 50 feet with 2 turns (QC: 6 Stairs (FIM): 88 Picking up an Object (QC): 88 PT Plan Treatment/Plan Treatment Plan: Continue Plan of Care Treatment Plan: Bed Mobility, Education, Functional Activity Emmy, Functional Strength, Group Therapy, Gait (hopping), Safety, Therapeutic Exercise, Transfers Treatment Duration: Jun 04, 2018 Frequency: At least 5 of 7 days/Wk (IRF) Estimated Hrs Per Day: 1.5 hours per day Patient and/or Family Agrees t: Yes Safety Risks/Education Patient Education: Transfer Techniques, Correct Positioning, W/C Management, Disease Process, Safety Issues Teaching Recipient: Patient Teaching Methods: Demonstration, Discussion Response to Teaching: Verbalize Understanding, Return Demonstration, Reinforcement Needed Time/GCodes Time In: 1000 Time Out: 1100 Total Billed Treatment Time: 60 Total Billed Treatment 1,WC 10m,EX20m,FA30m G Codes Necessary: JAQUAN Rivera CEMENT MIXER May 25, 2018 11:01
[2018-05-25] MEDS: LACTULOSE SYRUP 10GM/15ML (ENULOSE) 30ML UDC PO SCH ×2 (12:36→21:46)
--- NOTE | 2018-05-25 14:27 | Physical Therapy Daily Note ---
PT Daily Note-Current Subjective Agrees to Rx, feeling well, wants to toilet before Rx. Pain Numeric Pain Scale: 0-No Pain Mental Status Patient Orientation: Person, Place, Time, Situation Transfers Functional [place] Measure 0=Not Assessed/NA 4=Minimal Assistance 1=Total Assistance 5=Supervision or Setup 2=Maximal Assistance 6=Modified [place] 3=Moderate Assistance 7=Complete IndependenceIRFPAI Quality Coding Scale 6 Independent with activity with or without an assistive device 5 Patient requires set up or clean up by helper. Patient completes activity by themselves 4 Supervision or touching assist (CGA). [place] provide cues , steadying assist 3 The helper provides less than half the effort to complete the activity 2 The helper provides more than half the effort to complete the activity 1 Dependent. The helper does all the effort to complete an activity 7 Patient refused to complete or attempt activity 9 The patient did not perform the activity before the current illness or injury 88 Not attempted due to Medical conditions or safety concerns SPTs toward left and right to toilet and recliner from w/c. Pt. needs safety and technique instruction and CGA. to toilet pt needed assist for pants up Weight Bearing Right Lower Extremity: Right Full Weight Bearing Left Lower Extremity: Left Non Weight Bearing Wheelchair Training Does the Pt Use a Wheelchair?: Yes Wheelchair (FIM): 2 Wheelchair Distance: 1=661-22 ft Wheelchair Level of Assist: 3 Type of Wheelchair: Manual forward and back on graded surface ramp, negotiated curves and bumpy side walk out of doors requiring min assist and much instruction Exercises Seated Therapy Exercises: Sit to stand, Long arc quads Seated Reps: 12 Assessment Current Status: Good Progress dependent for all mobility and safety PT Short Term Goals Short Term Goals Time Frame: May 27, 2018 Transfers (B,C,W/C) (FIM): 5 Wheelchair Distance: 150 ft PT Half-Way Goals Half-Way Goals PT Share Dairy Farmer Goals Time Frame: Jun 04, 2018 Transfers (B,C,W/C) (FIM): 6 Sit to Lying (QC): 6 Lying-Sitting on Side/Bed(QC): 6 Sit to Stand (QC): 6 Rollin Roll Left to Right (QC): 6 Chair/Pih-op-Pjtjj Xfer(QC): 6 Car Transfer (QC): 6 Does the Patient Walk: No and Walking Goal NOT indicated Wheelchair (FIM): 6 Wheelchair distance (FIM): 3=150 ft Wheelchair Level of Assist: 6 Wheel 50 feet with 2 turns (QC: 6 Stairs (FIM): 88 Picking up an Object (QC): 88 PT Plan Treatment/Plan Treatment Plan: Continue Plan of Care Treatment Plan: Bed Mobility, Education, Functional Activity Emmy, Functional Strength, Group Therapy, Gait (hopping), Safety, Therapeutic Exercise, Transfers Treatment Duration: Jun 04, 2018 Frequency: At least 5 of 7 days/Wk (IRF) Estimated Hrs Per Day: 1.5 hours per day Patient and/or Family Agrees t: Yes Safety Risks/Education Patient Education: Transfer Techniques, Correct Positioning, W/C Management, Disease Process, Safety Issues Teaching Recipient: Patient Teaching Methods: Demonstration, Discussion Response to Teaching: Verbalize Understanding, Return Demonstration, Reinforcement Needed Time/GCodes Time In: 1400 Time Out: 1430 Total Billed Treatment Time: 30 Total Billed Treatment 1,WC20m,FA10m G Codes Necessary: JAQUAN Rivera CODING TEAM LEAD May 25, 2018 14:27
[2018-05-25 16:51] VITALS: BP 150/65
[2018-05-25] MEDS: inSUlin DETERMIR 1 UNIT/0.01 ML (LEVEMIR) CHARGE PER UNIT SQ SCH (21:45)
[2018-05-25] MEDS: ATORVASTATIN 40 MG (LIPITOR) TABLET PO SCH (21:46)
[2018-05-25] MEDS: traZODone 100 MG (DESYREL) TAB PO SCH (21:46)
[2018-05-26 04:03] VITALS: BP 135/70
[2018-05-26] MEDS: inSUlin ASPART (NovoLOG) 1 UNIT/0.01 ML (CHARGE PER UNIT) SC SCH ×5 (05:52→20:51)
[2018-05-26] MEDS: TROSPIUM 20 MG (SANCTURA) TAB PO SCH ×2 (06:14→16:31)
[2018-05-26] MEDS: LEVOTHYROXINE 125 MCG (LEVOTHROID) TABLET PO SCH (06:14)
[2018-05-26] MEDS: RT-ADVAIR HFA 115/21 MCG PER PUFF IH SCH ×2 (06:53→20:36)
[2018-05-26] MEDS: RT-ALBUTEROL SULF 2.5 MG/3 ML PRE-MIX VIAL INH SCH ×2 (06:53→20:36)
[2018-05-26] MEDS: UMECLIDINIUM BROMIDE (INCRUSE ELLIPTA) 7'S IH SCH (07:01)
[2018-05-26] MEDS: ASPIRIN E.C. 325 MG (ECOTRIN) TABLET PO SCH (08:05)
[2018-05-26] MEDS: MECLIZINE 25 MG (ANTIVERT) TAB PO SCH (08:05)
[2018-05-26] MEDS: PREGABALIN 100 MG (LYRICA) CAPSULE PO SCH ×3 (08:05→20:42)
[2018-05-26] MEDS: LACTULOSE SYRUP 10GM/15ML (ENULOSE) 30ML UDC PO SCH ×2 (08:06→20:43)
[2018-05-26] MEDS: SERTRALINE 50 MG (ZOLOFT) TABLET PO SCH (08:06)
[2018-05-26] MEDS: OLMESARTAN 20 MG (BENICAR) TABLET PO SCH (08:06)
[2018-05-26] MEDS: SENNA W/DOCUSATE (SENOKOT S) TABLET PO SCH ×2 (08:06→20:43)
[2018-05-26] MEDS: ENOXAPARIN 40 MG/0.4 ML (LOVENOX) SYR SC SCH (08:06)
[2018-05-26] MEDS: FUROSEMIDE 40 MG (LASIX) TAB PO SCH (08:06)
[2018-05-26] MEDS: LORATADINE (CLARITIN) 10 MG TAB PO SCH (08:06)
[2018-05-26 08:07] VITALS: BP 115/54
[2018-05-26] MEDS: FLUTICASONE NASAL SPRAY (FLONASE) 16 GM BTL NS SCH (08:09)
--- NOTE | 2018-05-26 09:29 | Occupational Ther Daily Note ---
OT Current Status-Daily Note Subjective Pt sitting in w/c, requests shower this morning. RN states to cover left LE during shower to prevent getting wet. Pt has no c/o pain. Mental Status/Objective Functional [place] Measure 0=Not Assessed/NA 4=Minimal Assistance 1=Total Assistance 5=Supervision or Setup 2=Maximal Assistance 6=Modified [place] 3=Moderate Assistance 7=Complete [place] ADL-Treatment Pt completed w/c mobility to restroom. Transfer w/c <-> shower bench with min assist. Pt doffed clothing with close supervision for balance. Seated bathing completed using hand held shower. Upper body bathing completed with set up. Pt required assist to wash right foot only. Weight shifted side to side while sitting to wash buttocks. Don bra and pullover shirt with set up. Pt able to thread LE through Depends and pants. Stood with minimal assistance. Requires assist to pull pants up over left hip. Don sock with set up. Pt able to don right shoe, but required assist to tie. Grooming tasks completed with modified independence while seated at sink. Transfer to toilet with CGA. Pt able to pull pants down and complete toileting hygiene, but requires assist to pull pants up. Washed hands at sink without assistance. Functional [place] Measure 0=Not Assessed/NA 4=Minimal Assistance 1=Total Assistance 5=Supervision or Setup 2=Maximal Assistance 6=Modified [place] 3=Moderate Assistance 7=Complete IndependenceIRFPAI Quality Coding Scale 6 Independent with activity with or without an assistive device 5 Patient requires set up or clean up by helper. Patient completes activity by themselves 4 Supervision or touching assist (CGA). [place] provide cues , steadying assist 3 The helper provides less than half the effort to complete the activity 2 The helper provides more than half the effort to complete the activity 1 Dependent. The helper does all the effort to complete an activity 7 Patient refused to complete or attempt activity 9 The patient did not perform the activity before the current illness or injury 88 Not attempted due to Medical conditions or safety concerns Grooming (FIM): 6 Oral Hygiene (QC): 6 Bathing (FIM): 4 Shower/Bathe Self (QC): 3 Upper Body (FIM): 5 Upper Body Dressing (QC): 5 Lower Body Dressing (FIM): 4 Lower Body Dressing (QC): 3 Toileting (FIM): 3 Toileting Hygiene (QC): 3 Toilet/Commode Transfer (FIM): 4 Shower Transfer(FIM): 4 Other Treatment Pt performed w/c mobility to therapy gym with SBA. Arm bike [id number] to increase overall strength and activity tolerance needed for functional tasks. Pt completed task with mild resistance and slow pace. No rest breaks needed. Pt performed bilateral UE exercises to increase strength for ADLs and transfers. Pt performed shoulder flexion, forward press, and biceps curls x15 reps with 1# dowel zhang. Rest breaks between exercises. Pt returned to room, sitting in w/c with needs met after session. OT Short Term Goals Short Term Goals Time Frame: May 28, 2018 Eating(FIM): 5 Grooming(FIM): 5 Bathing(FIM): 5 Upper Body Dressing(FIM): 5 Lower Body Dressing(FIM): 4 Toileting(FIM): 5 Transfers (B,C,W/C) (FIM): 5 Toilet/Commode Transfer(FIM): 5 Additional Short Term Goals: 1-Demonstrate ADL Tasks, 2-Verbalize Understanding , 3-ImproveStrength/Emmy 1=Demonstrate adherence to instructed precautions during ADL tasks. 2=Patient will verbalize/demonstrate understanding of assistive devices/ modifications for ADL. 3=Patient will improve strength/tolerance for activity to enable patient to perform ADL's. OT Field Crop Technical Officer Goals [place] Goals Time Frame: Jun 04, 2018 Eating (FIM): 6 Eating (QC): 6 Groomin Oral Hygiene (QC): 6 Bathing(FIM): 5 Shower/Bathe Self (QC): 5 Upper Body Dressing(FIM): 6 Upper Body Dressing (QC): 6 Lower Body Dressing(FIM): 5 Lower Body Dressing (QC): 5 On/Off Footwear (QC): 5 Toileting(FIM): 6 Toileting Hygiene (QC): 6 Transfers (B,C,W/C) (FIM): 6 Toilet/Commode Transfer(FIM): 6 Toilet/Commode Transfer (QC): 6 Shower Transfer(FIM): 5 Additional Goals: 1-Demonstrate ADL Tasks, 2-Verbalize Understanding, 3- ImproveStrength/Emmy 1=Demonstrate adherence to instructed precautions during ADL tasks. 2=Patient will verbalize/demonstrate understanding of assistive devices/ modifications for ADL. 3=Patient will improve strength/tolerance for activity to enable patient to perform ADL's. OT Education/Plan Discharge Recommendations Plan/Recommendations: Continue POC Treatment Plan/Plan of Care Patient would benefit from OT for education, treatment and training to promote independence in ADL's, mobility, safety and/or upper extremity function for ADL' s. Plan of Care: ADL Retraining, Caregiver Training, Functional Mobility, Group Exercise/Act as Ind, UE Funct Exercise/Act Treatment Duration: Jun 04, 2018 Frequency: At least 5 of 7 days/Wk (IRF) Estimated Hrs Per Day: 1.5 hours per day Agreement: Yes Rehab Potential: Good Time/GCodes Start Time: 08:00 Stop Time: 09:30 Total Time Billed (hr/min): 90 Billed Treatment Time 1 visit, ADLx4(60minutes), EXx2(30minutes) JEMMA JACKSON OT May 26, 2018 09:29
--- NOTE | 2018-05-26 11:51 | Physical Therapy Daily Note ---
PT Daily Note-Current Subjective Pt was sitting in [facility] in room upon arrival. Pt agrees to PT. Pain Numeric Pain Scale: 5-Moderate Pain Location: Left Location Body Site: Knee Pain Description: A[place] Comment: Pt reports pain is intermittent and can sharply increase at times. Mental Status Patient Orientation: Person, Place, Time, Situation Transfers Functional [place] Measure 0=Not Assessed/NA 4=Minimal Assistance 1=Total Assistance 5=Supervision or Setup 2=Maximal Assistance 6=Modified [place] 3=Moderate Assistance 7=Complete IndependenceIRFPAI Quality Coding Scale 6 Independent with activity with or without an assistive device 5 Patient requires set up or clean up by helper. Patient completes activity by themselves 4 Supervision or touching assist (CGA). [place] provide cues , steadying assist 3 The helper provides less than half the effort to complete the activity 2 The helper provides more than half the effort to complete the activity 1 Dependent. The helper does all the effort to complete an activity 7 Patient refused to complete or attempt activity 9 The patient did not perform the activity before the current illness or injury 88 Not attempted due to Medical conditions or safety concerns Scootin Rollin Roll Left to Right (QC): 6 Supine to/from Sit: 6 Sit to/from Stand: 5 Sit to Lying (QC): 6 Sit to Stand (QC): 5 Chair/[id number] Xfer(QC): 5 Bed to/from Chair: 5 Weight Bearing Right Lower Extremity: Right Full Weight Bearing Left Lower Extremity: Left Non Weight Bearing Gait Training Does the Patient Walk?: Yes Distance (FIM): 1=up to 49 ft Distance: 5' Gait Level of Assist: 3 Gait Persons Needed: 1 Gait Assistive Device: FWW Pt attempts a hop to gait pattern but quickly fatigues and TRAIN ANNOUNCER brings [facility] bring behind pt to rest. Pt reports pain on amputated side and demonstrates weakness on R side. Wheelchair Training Does the Pt Use a Wheelchair?: Yes Wheelchair Distance: 3=150 ft Distance: 250' Wheelchair Level of Assist: 5 Wheel 50 ft with 2 turns (QC): 5 Wheel 150 ft (QC): 5 Type of Wheelchair: Manual Exercises Supine Ex: Ankle pumps, Quad Set, Glut sets, Heel Slides, Straight leg raise, Hip abd/add Supine Reps: 15 Treatments Pt uses restroom before leaving room for tx. Pt propels [facility] in hallway to Therapy Gym. Pt transfers to Therapy mat from [facility] at [facility]. Pt completes Supine Ex before needing to return to room for use of restroom. Pt returns to Therapy Gym to finish Supine EX as well as stretching Extension muscles on Therapy mat. Pt attempted a couple of hops before fatiguing and returning to [facility]. Pt propels self to room to rest with all needs met. Assessment Current Status: Good Progress Pt is motivated to get stronger and return home. Pt has seen a increase in urination and trips to restroom over the last few days per pt. Pt still demonstrates weakness especially with upright activities. PT Short Term Goals Short Term Goals Time Frame: May 27, 2018 Transfers (B,C,W/C) (FIM): 5 Wheelchair Distance: 150 ft PT Jail Goals Broker Associate Goals PT Broker Associate Goals Time Frame: Jun 04, 2018 Transfers (B,C,W/C) (FIM): 6 Sit to Lying (QC): 6 Lying-Sitting on Side/Bed(QC): 6 Sit to Stand (QC): 6 Rollin Roll Left to Right (QC): 6 Chair/Pky-hn-Kontb Xfer(QC): 6 Car Transfer (QC): 6 Does the Patient Walk: No and Walking Goal NOT indicated Wheelchair (FIM): 6 Wheelchair distance (FIM): 3=150 ft Wheelchair Level of Assist: 6 Wheel 50 feet with 2 turns (QC: 6 Stairs (FIM): 88 Picking up an Object (QC): 88 PT Plan Problem List Problem List: Activity Tolerance, Functional Strength, Safety, Balance, Gait, Transfer Treatment/Plan Treatment Plan: Continue Plan of Care Treatment Plan: Bed Mobility, Education, Functional Activity Emmy, Functional Strength, Group Therapy, Gait (hopping), Safety, Therapeutic Exercise, Transfers Treatment Duration: Jun 04, 2018 Frequency: At least 5 of 7 days/Wk (IRF) Estimated Hrs Per Day: 1.5 hours per day Patient and/or Family Agrees t: Yes Safety Risks/Education Patient Education: Gait Training, Transfer Techniques, Correct Positioning, Safety Issues Teaching Recipient: Patient Teaching Methods: Discussion Response to Teaching: Verbalize Understanding Time/GCodes Time In: 930 Time Out: 1030 Total Billed Treatment Time: 60 Total Billed Treatment 1, EX x2 (30m), [facility] (15m) & FA (15m) G Codes Necessary: No ROSS HEMPHILLAH TRAIN ANNOUNCER May 26, 2018 11:51
--- NOTE | 2018-05-26 15:33 | Physical Therapy Daily Note ---
PT Daily Note-Current Subjective Pt still in [facility] upon arrival. Pt agrees to PT. Pain Numeric Pain Scale: 5-Moderate Pain Location: Left Location Body Site: Knee Pain Description: Ache Mental Status Patient Orientation: Person, Place, Situation Transfers Functional [place] Measure 0=Not Assessed/NA 4=Minimal Assistance 1=Total Assistance 5=Supervision or Setup 2=Maximal Assistance 6=Modified [place] 3=Moderate Assistance 7=Complete IndependenceIRFPAI Quality Coding Scale 6 Independent with activity with or without an assistive device 5 Patient requires set up or clean up by helper. Patient completes activity by themselves 4 Supervision or touching assist (CGA). [place] provide cues , steadying assist 3 The helper provides less than half the effort to complete the activity 2 The helper provides more than half the effort to complete the activity 1 Dependent. The helper does all the effort to complete an activity 7 Patient refused to complete or attempt activity 9 The patient did not perform the activity before the current illness or injury 88 Not attempted due to Medical conditions or safety concerns Scootin Sit to/from Stand: 5 Sit to Stand (QC): 5 Chair/Oqo-uy-Caluh Xfer(QC): 5 Bed to/from Chair: 5 Weight Bearing Right Lower Extremity: Right Full Weight Bearing Left Lower Extremity: Left Non Weight Bearing Wheelchair Training Does the Pt Use a Wheelchair?: Yes Wheelchair Distance: 3=150 ft Distance: 150' Wheelchair Level of Assist: 5 Wheel 50 ft with 2 turns (QC): 5 Wheel 150 ft (QC): 5 Type of Wheelchair: Manual Exercises Seated Therapy Exercises: Ankle pumps, Long arc quads, Hip flexion, Kicking activity Seated Reps: 15 Treatments Pt propels [facility] in hallway to Therapy Gym. Pt transfers from [facility] to M. Pt completes Seated EX then transfers back to [facility]. Pt needs to use restroom at end of tx. Pt is able to don & doff pants & undergarments. Nurse arrives to assist pt at end of toileting Assessment Current Status: Good Progress Pt continues to work hard but fatigues and needs rest breaks occasionally. PT Short Term Goals Short Term Goals Time Frame: May 27, 2018 Transfers (B,C,W/C) (FIM): 5 Wheelchair Distance: 250' PT Long-Term Goals Press Reader Goals PT Long-Term Goals Time Frame: Jun 04, 2018 Transfers (B,C,W/C) (FIM): 6 Sit to Lying (QC): 6 Lying-Sitting on Side/Bed(QC): 6 Sit to Stand (QC): 6 Rollin Roll Left to Right (QC): 6 Chair/Lal-pc-Tbuse Xfer(QC): 6 Car Transfer (QC): 6 Does the Patient Walk: No and Walking Goal NOT indicated Wheelchair (FIM): 6 Wheelchair distance (FIM): 3=150 ft Wheelchair Level of Assist: 6 Wheel 50 feet with 2 turns (QC: 6 Stairs (FIM): 88 Picking up an Object (QC): 88 PT Plan Problem List Problem List: Activity Tolerance, Functional Strength, Safety, Balance, Gait, Transfer Treatment/Plan Treatment Plan: Continue Plan of Care Treatment Plan: Bed Mobility, Education, Functional Activity Emmy, Functional Strength, Group Therapy, Gait (hopping), Safety, Therapeutic Exercise, Transfers Treatment Duration: Jun 04, 2018 Frequency: At least 5 of 7 days/Wk (IRF) Estimated Hrs Per Day: 1.5 hours per day Patient and/or Family Agrees t: Yes Safety Risks/Education Patient Education: Transfer Techniques, Correct Positioning, Safety Issues Teaching Recipient: Patient Teaching Methods: Discussion Response to Teaching: Verbalize Understanding Time/GCodes Time In: 1300 Time Out: 1330 Total Billed Treatment Time: 30 Total Billed Treatment 1, EX (15m) & WCH (15m) G Codes Necessary: BETHANY Lujan GROUND CREW LINES PERSON May 26, 2018 15:33
[2018-05-26 17:27] VITALS: BP 162/69
[2018-05-26] MEDS: ATORVASTATIN 40 MG (LIPITOR) TABLET PO SCH (20:42)
[2018-05-26] MEDS: traZODone 100 MG (DESYREL) TAB PO SCH (20:42)
[2018-05-26] MEDS: inSUlin DETERMIR 1 UNIT/0.01 ML (LEVEMIR) CHARGE PER UNIT SQ SCH (20:52)
--- NOTE | 2018-05-26 21:58 | PM & R (SOAP) Progress Note ---
Subjective This was a face to face visit with the patient. Date Seen by Provider: May 26, 2018 Time Seen by Provider: 21:50 Subjective/Events-last exam Patient was seen in her room this evening Patient SBA for transfers Objective Physician Exam Last Set of Vital Signs Vital Signs Date Time Temp Pulse Resp B/P (MAP) Pulse Ox O2 Delivery O2 Flow Rate FiO2 05/26/18 20:36 93 Room Air 05/26/18 17:27 97.6 66 18 162/69 (100) 05/22/18 19:48 2.00 Capillary Refill : I&O Intake and Output 05/26/18 00:00 Intake Total 1790 ml Balance 1790 ml Intake Oral 1790 ml # Voids 14 # Bowel Movements 3 General: Alert, Oriented X3, Cooperative, No Acute Distress HEENT: Atraumatic, PERRLA, EOMI, Mucous Memb Moist/[place] Neck: Supple, No JVD Lungs: Clear to Auscultation Heart: Regular Rate Abdomen: Normal Bowel Sounds, Other (mildly distended) Extremities: Other Neuro: Other (functional strength BUES RTlower limb 4/5) Psych/Mental Status: Mental Status NL Results Lab Data Laboratory Tests 05/24/18 05:35: Glucometer 122H 05/24/18 11:25: Glucometer 215H 05/24/18 15:48: Glucometer 166H 05/24/18 21:02: Glucometer 260H 05/25/18 05:38: Glucometer 160H 05/25/18 07:47: White Blood Count 12.6H, Red Blood Count 3.11L, Hemoglobin 8.6L, Hematocrit 27L , Mean Corpuscular Volume 86, Mean Corpuscular Hemoglobin 28, Mean Corpuscular Hemoglobin Concent 32, Red Cell Distribution Width 17.1H, Platelet Count 179, Mean Platelet Volume 9.3, Sodium Level 133L, Potassium Level 4.3, Chloride Level 99, Carbon Dioxide Level 22, Anion Gap 12, Blood Urea Nitrogen 22H, Creatinine 1.29, Estimat Glomerular Filtration Rate 39, BUN/Creatinine Ratio 17 , Glucose Level 174H, Calcium Level 10.1 05/25/18 12:35: Glucometer 166H 05/25/18 16:58: Glucometer 176H 05/25/18 21:34: Glucometer 243H 10/30/18 05:45: Glucometer 155H 05/26/18 10:54: Glucometer 207H 05/26/18 16:20: Glucometer 140H 05/26/18 20:46: Glucometer 204H Assessment/Plan Assessment and Plan S/P left BKA DR Stewart NWBLLE IDDM better controlled on carb consistent diet OA s/p bilateral TKRS remote Postop constipation treated HTN PVD Postop anemia s/p transfusion JF on cpap Plan Continue PT/OT/Wound care Team Conference tomorrow Co-Morbidities that are continuing to impact the rehab process: (include details ) LINDA MCKEON MD May 26, 2018 21:58
[2018-05-27 05:06] VITALS: BP 131/66
[2018-05-27] MEDS: TROSPIUM 20 MG (SANCTURA) TAB PO SCH ×2 (06:39→16:17)
[2018-05-27] MEDS: LEVOTHYROXINE 125 MCG (LEVOTHROID) TABLET PO SCH (06:39)
[2018-05-27] MEDS: inSUlin ASPART (NovoLOG) 1 UNIT/0.01 ML (CHARGE PER UNIT) SC SCH ×5 (06:39→20:40)
[2018-05-27] MEDS: RT-ADVAIR HFA 115/21 MCG PER PUFF IH SCH ×2 (06:46→18:53)
[2018-05-27] MEDS: RT-ALBUTEROL SULF 2.5 MG/3 ML PRE-MIX VIAL INH SCH ×2 (06:46→18:53)
[2018-05-27] MEDS: UMECLIDINIUM BROMIDE (INCRUSE ELLIPTA) 7'S IH SCH (06:51)
[2018-05-27] MEDS: ASPIRIN E.C. 325 MG (ECOTRIN) TABLET PO SCH (08:10)
[2018-05-27] MEDS: OLMESARTAN 20 MG (BENICAR) TABLET PO SCH (08:10)
[2018-05-27] MEDS: PREGABALIN 100 MG (LYRICA) CAPSULE PO SCH ×3 (08:11→20:37)
[2018-05-27] MEDS: MECLIZINE 25 MG (ANTIVERT) TAB PO SCH (08:11)
[2018-05-27] MEDS: SERTRALINE 50 MG (ZOLOFT) TABLET PO SCH (08:11)
[2018-05-27] MEDS: LORATADINE (CLARITIN) 10 MG TAB PO SCH (08:11)
[2018-05-27] MEDS: FUROSEMIDE 40 MG (LASIX) TAB PO SCH (08:11)
[2018-05-27] MEDS: SENNA W/DOCUSATE (SENOKOT S) TABLET PO SCH ×2 (08:11→20:41)
[2018-05-27] MEDS: FLUTICASONE NASAL SPRAY (FLONASE) 16 GM BTL NS SCH (08:13)
[2018-05-27] MEDS: LACTULOSE SYRUP 10GM/15ML (ENULOSE) 30ML UDC PO SCH ×2 (08:13→20:37)
[2018-05-27] MEDS: ENOXAPARIN 40 MG/0.4 ML (LOVENOX) SYR SC SCH (08:15)
--- NOTE | 2018-05-27 11:24 | Occupational Ther Daily Note ---
OT Current Status-Daily Note Subjective Pt sitting in w/c, agrees to therapy. Pt denies pain. Mental Status/Objective Functional [place] Measure 0=Not Assessed/NA 4=Minimal Assistance 1=Total Assistance 5=Supervision or Setup 2=Maximal Assistance 6=Modified [place] 3=Moderate Assistance 7=Complete [place] ADL-Treatment Pt requests to sponge bathe and get dressed this morning. W/c mobility to restroom without assistance. Sponge bath completed seated at sink. Pt doffed clothing with SBA. Upper body bathing completed with SBA. Pt able to wash LE, but requires minimal assistance for standing balance while washing buttocks. Don bra and pullover shirt with set up. Pt able to thread LE into Depends and pants. Stood with CGA, pt requires minimal assistance to pull pants up in back. Doff/don right sock and shoe with SBA. Pt states she has already completed grooming tasks this morning. Transfer w/c <-> toilet with supervision. Pt able to pull pants down and complete toileting hygiene, but requires min assist to pull pants up. Pt washed hands seated at sink without assistance. Functional [place] Measure 0=Not Assessed/NA 4=Minimal Assistance 1=Total Assistance 5=Supervision or Setup 2=Maximal Assistance 6=Modified [place] 3=Moderate Assistance 7=Complete IndependenceIRFPAI Quality Coding Scale 6 Independent with activity with or without an assistive device 5 Patient requires set up or clean up by helper. Patient completes activity by themselves 4 Supervision or touching assist (CGA). [place] provide cues , steadying assist 3 The helper provides less than half the effort to complete the activity 2 The helper provides more than half the effort to complete the activity 1 Dependent. The helper does all the effort to complete an activity 7 Patient refused to complete or attempt activity 9 The patient did not perform the activity before the current illness or injury 88 Not attempted due to Medical conditions or safety concerns Bathing (FIM): 4 Upper Body (FIM): 5 Upper Body Dressing (QC): 5 Lower Body Dressing (FIM): 4 On/Off Footwear (QC): 5 Toileting (FIM): 3 Toileting Hygiene (QC): 3 Toilet/Commode Transfer (FIM): 5 Toilet Transfer (QC): 4 Other Treatment W/c mobility to therapy gym without assistance. Pt completed bilateral UE exercises to increase strength needed for ADLs and transfers. Pt performed shoulder flexion, abduction, biceps curls, and triceps extension exercises x 20 reps with red theraband. Rest breaks between exercises. Pt completed fine motor nuts and bolts activity with bilateral UE with 1# weights in place to increase strength and fine motor coordination. Pt able to complete task within normal amount of time. W/c push ups x10 to increase strength for transfers. Arm bike [id number] to increase overall strength and activity tolerance. Pt completed activity with minimal resistance and slow pace. No rest breaks needed. Pt returned to room and transferred to toilet with supervision. Call light in reach after session. Nurse aide notified. OT Short Term Goals Short Term Goals Time Frame: May 28, 2018 Eating(FIM): 5 Grooming(FIM): 5 Bathing(FIM): 5 Upper Body Dressing(FIM): 5 Lower Body Dressing(FIM): 4 Toileting(FIM): 5 Transfers (B,C,W/C) (FIM): 5 Toilet/Commode Transfer(FIM): 5 Additional Short Term Goals: 1-Demonstrate ADL Tasks, 2-Verbalize Understanding , 3-ImproveStrength/Emmy 1=Demonstrate adherence to instructed precautions during ADL tasks. 2=Patient will verbalize/demonstrate understanding of assistive devices/ modifications for ADL. 3=Patient will improve strength/tolerance for activity to enable patient to perform ADL's. OT [place] Goals Senior Living Goals Time Frame: Jun 04, 2018 Eating (FIM): 6 Eating (QC): 6 Groomin Oral Hygiene (QC): 6 Bathing(FIM): 5 Shower/Bathe Self (QC): 5 Upper Body Dressing(FIM): 6 Upper Body Dressing (QC): 6 Lower Body Dressing(FIM): 5 Lower Body Dressing (QC): 5 On/Off Footwear (QC): 5 Toileting(FIM): 6 Toileting Hygiene (QC): 6 Transfers (B,C,W/C) (FIM): 6 Toilet/Commode Transfer(FIM): 6 Toilet/Commode Transfer (QC): 6 Shower Transfer(FIM): 5 Additional Goals: 1-Demonstrate ADL Tasks, 2-Verbalize Understanding, 3- ImproveStrength/Emmy 1=Demonstrate adherence to instructed precautions during ADL tasks. 2=Patient will verbalize/demonstrate understanding of assistive devices/ modifications for ADL. 3=Patient will improve strength/tolerance for activity to enable patient to perform ADL's. OT Education/Plan Discharge Recommendations Plan/Recommendations: Continue POC Treatment Plan/Plan of Care Patient would benefit from OT for education, treatment and training to promote independence in ADL's, mobility, safety and/or upper extremity function for ADL' s. Plan of Care: ADL Retraining, Caregiver Training, Functional Mobility, Group Exercise/Act as Ind, UE Funct Exercise/Act Treatment Duration: Jun 04, 2018 Frequency: At least 5 of 7 days/Wk (IRF) Estimated Hrs Per Day: 1.5 hours per day Agreement: Yes Rehab Potential: Good Time/GCodes Start Time: 08:00 Stop Time: 09:30 Total Time Billed (hr/min): 90 Billed Treatment Time 1 visit, ADLx3(40minutes), EXx3(50minutes) JEMMA JACKSON OT May 27, 2018 11:24
--- NOTE | 2018-05-27 11:47 | Physical Therapy Daily Note ---
PT Daily Note-Current Subjective Pt sitting in [facility] upon arrival. Pt agrees to PT. Pt reports wanting to discharge FREDDY. "I just want to go home." Pain Numeric Pain Scale: 3 Location: Incisional, Left Location Body Site: Knee Pain Description: Ache Mental Status Patient Orientation: Person, Place, Time, Situation Transfers Functional [place] Measure 0=Not Assessed/NA 4=Minimal Assistance 1=Total Assistance 5=Supervision or Setup 2=Maximal Assistance 6=Modified [place] 3=Moderate Assistance 7=Complete IndependenceIRFPAI Quality Coding Scale 6 Independent with activity with or without an assistive device 5 Patient requires set up or clean up by helper. Patient completes activity by themselves 4 Supervision or touching assist (CGA). [place] provide cues , steadying assist 3 The helper provides less than half the effort to complete the activity 2 The helper provides more than half the effort to complete the activity 1 Dependent. The helper does all the effort to complete an activity 7 Patient refused to complete or attempt activity 9 The patient did not perform the activity before the current illness or injury 88 Not attempted due to Medical conditions or safety concerns Scootin Sit to/from Stand: 5 Sit to Stand (QC): 5 Weight Bearing Right Lower Extremity: Right Full Weight Bearing Left Lower Extremity: Left Non Weight Bearing Wheelchair Training Does the Pt Use a Wheelchair?: Yes Wheelchair Distance: 3=150 ft Distance: 150' Wheelchair Level of Assist: 6 Wheel 50 ft with 2 turns (QC): 6 Wheel 150 ft (QC): 6 Type of Wheelchair: Manual Exercises Seated Therapy Exercises: Ankle pumps, Long arc quads, Hip flexion, Kicking activity Seated Reps: 15 Treatments Pt wants to discuss how soon she could discharge. Pt & LANDSCAPE FOREMAN discuss needed equipment for home (grab bars) as well as support at home and how pt could maneuver throughout house. Pt uses restroom before leaving room for tx. Pt is able to transfer from [facility] to toilet at [facility] with limited assistance to finish getting pants and undergarments up and down. Pt propels [facility] in hallway at Mod I. Pt completes a couple of car transfers before completing Seated Ex in [facility]. Pt returns to room at end of tx. Assessment Current Status: Good Progress Pt is motivated to go home and works hard during tx. Pt still struggling with balance when standing. PT Short Term Goals Short Term Goals Time Frame: May 27, 2018 Transfers (B,C,W/C) (FIM): 5 Wheelchair Distance: 150' PT Instructional Leader Goals Penit[facility]iary Goals PT Penitentiary Goals Time Frame: Jun 04, 2018 Transfers (B,C,W/C) (FIM): 6 Sit to Lying (QC): 6 Lying-Sitting on Side/Bed(QC): 6 Sit to Stand (QC): 6 Rollin Roll Left to Right (QC): 6 Chair/Fpw-ny-Mktai Xfer(QC): 6 Car Transfer (QC): 6 Does the Patient Walk: No and Walking Goal NOT indicated Wheelchair (FIM): 6 Wheelchair distance (FIM): 3=150 ft Wheelchair Level of Assist: 6 Wheel 50 feet with 2 turns (QC: 6 Stairs (FIM): 88 Picking up an Object (QC): 88 PT Plan Problem List Problem List: Activity Tolerance, Functional Strength, Safety, Balance, Gait Treatment/Plan Treatment Plan: Continue Plan of Care Treatment Plan: Bed Mobility, Education, Functional Activity Emmy, Functional Strength, Group Therapy, Gait (hopping), Safety, Therapeutic Exercise, Transfers Treatment Duration: Jun 04, 2018 Frequency: At least 5 of 7 days/Wk (IRF) Estimated Hrs Per Day: 1.5 hours per day Patient and/or Family Agrees t: Yes Safety Risks/Education Patient Education: Transfer Techniques, Correct Positioning, Safety Issues Teaching Recipient: Patient Teaching Methods: Discussion Response to Teaching: Verbalize Understanding Time/GCodes Time In: 1000 Time Out: 1100 Total Billed Treatment Time: 60 Total Billed Treatment 1, WCH (20m), FA x2 (25m) & EX (15m) G Codes Necessary: BETHANY Lujan PTA May 27, 2018 11:47
[2018-05-27] MEDS ORDERED: NEO/POLY/BAC (NEOSPORIN) OINT 15 GM TUBE TOP ONE (12:00)
--- NOTE | 2018-05-27 13:57 | Physical Therapy Daily Note ---
PT Daily Note-Current Subjective Pt sitting in [facility] in room upon arrival. Pt agrees to PT. Pt reports Dr Stewart came to check on amputation and was pleased with results. Pt hoping that [facility] will agree to send her home tomorrow. Pain Location: No Pain Reported Mental Status Patient Orientation: Person, Place, Time, Situation Transfers Functional [place] Measure 0=Not Assessed/NA 4=Minimal Assistance 1=Total Assistance 5=Supervision or Setup 2=Maximal Assistance 6=Modified [place] 3=Moderate Assistance 7=Complete IndependenceIRFPAI Quality Coding Scale 6 Independent with activity with or without an assistive device 5 Patient requires set up or clean up by helper. Patient completes activity by themselves 4 Supervision or touching assist (CGA). [place] provide cues , steadying assist 3 The helper provides less than half the effort to complete the activity 2 The helper provides more than half the effort to complete the activity 1 Dependent. The helper does all the effort to complete an activity 7 Patient refused to complete or attempt activity 9 The patient did not perform the activity before the current illness or injury 88 Not attempted due to Medical conditions or safety concerns Scootin Sit to/from Stand: 5 Sit to Stand (QC): 5 Weight Bearing Right Lower Extremity: Right Full Weight Bearing Left Lower Extremity: Left Non Weight Bearing Wheelchair Training Does the Pt Use a Wheelchair?: Yes Wheelchair Distance: 3=150 ft Distance: 250' Wheelchair Level of Assist: 6 Wheel 50 ft with 2 turns (QC): 6 Wheel 150 ft (QC): 6 Type of Wheelchair: Manual Treatments Pt propels [facility] through hallway and in Therapy Commons. Pt practiced Figure 8s to focus on turns and avoiding close proximity objects. Pt returns to room to use restroom. Pt is able to transfer at [facility] using grab bars but needs occasional assistance with donning/doffing pants & undergarments. Pt returns to [facility] to sit up and work on knitting. Pt has all needs met. Assessment Current Status: Good Progress Pt works hard and wants to get better to go home. PT Short Term Goals Short Term Goals Time Frame: May 27, 2018 Transfers (B,C,W/C) (FIM): 5 Wheelchair Distance: 150' PT Echocardiography Tech Goals Snf Goals PT Snf Goals Time Frame: Jun 04, 2018 Transfers (B,C,W/C) (FIM): 6 Sit to Lying (QC): 6 Lying-Sitting on Side/Bed(QC): 6 Sit to Stand (QC): 6 Rollin Roll Left to Right (QC): 6 Chair/Yas-ni-Odmkb Xfer(QC): 6 Car Transfer (QC): 6 Does the Patient Walk: No and Walking Goal NOT indicated Wheelchair (FIM): 6 Wheelchair distance (FIM): 3=150 ft Wheelchair Level of Assist: 6 Wheel 50 feet with 2 turns (QC: 6 Stairs (FIM): 88 Picking up an Object (QC): 88 PT Plan Problem List Problem List: Activity Tolerance, Functional Strength Treatment/Plan Treatment Plan: Continue Plan of Care Treatment Plan: Bed Mobility, Education, Functional Activity Emmy, Functional Strength, Group Therapy, Gait (hopping), Safety, Therapeutic Exercise, Transfers Treatment Duration: Jun 04, 2018 Frequency: At least 5 of 7 days/Wk (IRF) Estimated Hrs Per Day: 1.5 hours per day Patient and/or Family Agrees t: Yes Safety Risks/Education Patient Education: Transfer Techniques, Correct Positioning, Safety Issues Teaching Recipient: Patient Teaching Methods: Discussion Response to Teaching: Verbalize Understanding Time/GCodes Time In: 1315 Time Out: 1345 Total Billed Treatment Time: 30 Total Billed Treatment 1, WCH (20m) & FA (10m) G Codes Necessary: BETHANY Lujan CATALYST MANUFACTURING OPERATOR May 27, 2018 13:57
--- NOTE | 2018-05-27 14:33 | PM & R (SOAP) Progress Note ---
Subjective This was a face to face visit with the patient. Date Seen by Provider: May 27, 2018 Time Seen by Provider: 14:25 Subjective/Events-last exam Patient was seen in her room this afternoon patient SBA for transfers.Team conference held earlier today Discharge set tentatively for Friday05-29-18 Objective Physician Exam Last Set of Vital Signs Vital Signs Date Time Temp Pulse Resp B/P (MAP) Pulse Ox O2 Delivery O2 Flow Rate FiO2 05/27/18 09:00 Room Air 05/27/18 06:47 95 05/27/18 05:06 98.2 66 18 131/66 (87) 05/22/18 19:48 2.00 Capillary Refill : I&O Intake and Output 05/27/18 00:00 Intake Total 2024 ml Balance 2024 ml Intake Oral 2024 ml # Voids 11 # Bowel Movements 2 General: Alert, Oriented X3, Cooperative, No Acute Distress HEENT: Atraumatic, PERRLA, EOMI, Mucous Memb Moist/[place] Neck: Supple, No JVD Lungs: Clear to Auscultation Heart: Regular Rate Abdomen: Normal Bowel Sounds, Other (mildly distended) Extremities: Other Neuro: Other (functional strength BUES RTlower limb 4/5) Psych/Mental Status: Mental Status NL Results Lab Data Laboratory Tests 05/24/18 15:48: Glucometer 166H 05/24/18 21:02: Glucometer 260H 05/25/18 05:38: Glucometer 160H 05/25/18 07:47: White Blood Count 12.6H, Red Blood Count 3.11L, Hemoglobin 8.6L, Hematocrit 27L , Mean Corpuscular Volume 86, Mean Corpuscular Hemoglobin 28, Mean Corpuscular Hemoglobin Concent 32, Red Cell Distribution Width 17.1H, Platelet Count 179, Mean Platelet Volume 9.3, Sodium Level 133L, Potassium Level 4.3, Chloride Level 99, Carbon Dioxide Level 22, Anion Gap 12, Blood Urea Nitrogen 22H, Creatinine 1.29, Estimat Glomerular Filtration Rate 39, BUN/Creatinine Ratio 17 , Glucose Level 174H, Calcium Level 10.1 05/25/18 12:35: Glucometer 166H 05/25/18 16:58: Glucometer 176H 05/25/18 21:34: Glucometer 243H 05/26/18 05:45: Glucometer 155H 05/26/18 10:54: Glucometer 207H 05/26/18 16:20: Glucometer 140H 05/26/18 20:46: Glucometer 204H 05/27/18 06:24: Glucometer 146H 05/27/18 11:02: Glucometer 194H Assessment/Plan Assessment and Plan S/P left BKA DR Stewart on carb consistent diet IDDM better controlled OA s/p Bilateral TKRS remote Postop constipation treated HTN PVD Postop anemia s/p transfusion JF on CPAP Plan Continue Pt/OT DR Stewart ortho in to see patient today See Team Conference report for full functional update and POC Discharge set tentatively for Friday as per above to home with her family Co-Morbidities that are continuing to impact the rehab process: (include details ) LINDA MCKEON MD May 27, 2018 14:33
[2018-05-27 17:14] VITALS: BP 164/71
[2018-05-27] MEDS: ATORVASTATIN 40 MG (LIPITOR) TABLET PO SCH (20:37)
[2018-05-27] MEDS: inSUlin DETERMIR 1 UNIT/0.01 ML (LEVEMIR) CHARGE PER UNIT SQ SCH (20:38)
[2018-05-27] MEDS: traZODone 100 MG (DESYREL) TAB PO SCH (20:41)
[2018-05-28 05:24] VITALS: BP 142/73
[2018-05-28] MEDS: LEVOTHYROXINE 125 MCG (LEVOTHROID) TABLET PO SCH (05:33)
[2018-05-28] MEDS: TROSPIUM 20 MG (SANCTURA) TAB PO SCH ×2 (05:33→16:29)
[2018-05-28] MEDS: inSUlin ASPART (NovoLOG) 1 UNIT/0.01 ML (CHARGE PER UNIT) SC SCH ×5 (05:35→21:31)
[2018-05-28] MEDS: RT-ALBUTEROL SULF 2.5 MG/3 ML PRE-MIX VIAL INH SCH ×2 (06:28→19:04)
[2018-05-28] MEDS: RT-ADVAIR HFA 115/21 MCG PER PUFF IH SCH ×2 (06:28→19:04)
[2018-05-28] MEDS: UMECLIDINIUM BROMIDE (INCRUSE ELLIPTA) 7'S IH SCH (06:29)
--- NOTE | 2018-05-28 07:58 | Occupational Ther Daily Note ---
OT Current Status-Daily Note Subjective Pt alert, sitting in w/c. Pt agrees to therapy. No c/o pain at this time. Mental Status/Objective Patient Orientation: Person, Place, Time, Situation Functional [place] Measure 0=Not Assessed/NA 4=Minimal Assistance 1=Total Assistance 5=Supervision or Setup 2=Maximal Assistance 6=Modified [place] 3=Moderate Assistance 7=Complete [place] ADL-Treatment Pt able open containers/packages by self and use regular utensils to feed self. Pt stated that she didn't have dentures in to eat, but food was soft. Pt doffed clothing with close supervision for balance. Seated bathing completed using hand held shower, mod I, weight shifted side to side while sitting to wash buttocks. Transported clothing via w/c to bathroom, don bra and pullover shirt. Pt able to thread LE through Depends and pants. Stood with close SBA. Requires assist to pull pants up over left hip. Pt able to don right shoe/ sock. Grooming tasks completed with modified independence while seated at sink. Transfer to toilet with SBA using w/c and grabbars. Pt able to pull pants down and complete toileting hygiene, but requires assist to pull pants up. Washed hands at sink without assistance. After therapy, pt sitting w/c with call light /phone in reach. All needs met in room. Functional [place] Measure 0=Not Assessed/NA 4=Minimal Assistance 1=Total Assistance 5=Supervision or Setup 2=Maximal Assistance 6=Modified [place] 3=Moderate Assistance 7=Complete IndependenceIRFPAI Quality Coding Scale 6 Independent with activity with or without an assistive device 5 Patient requires set up or clean up by helper. Patient completes activity by themselves 4 Supervision or touching assist (CGA). [place] provide cues , steadying assist 3 The helper provides less than half the effort to complete the activity 2 The helper provides more than half the effort to complete the activity 1 Dependent. The helper does all the effort to complete an activity 7 Patient refused to complete or attempt activity 9 The patient did not perform the activity before the current illness or injury 88 Not attempted due to Medical conditions or safety concerns Eating (FIM): 6 Eating (QC): 6 Grooming (FIM): 6 Oral Hygiene (QC): 6 Bathing (FIM): 6 Bathing Location: L Arm, R Arm, L Upper Leg, R Upper Leg, L Lower Leg ( including foot), R Lower Leg (including foot), Chest, Abdomen, Buttocks, Perineal Area Shower/Bathe Self (QC): 6 Upper Body (FIM): 6 Upper Body Dressing (QC): 6 Lower Body Dressing (FIM): 4 Lower Body Dressing (QC): 3 On/Off Footwear (QC): 6 Toileting (FIM): 5 Toileting Hygiene (QC): 4 Transfers (B, C, W/C) (FIM): 5 Toilet/Commode Transfer (FIM): 5 Toilet Transfer (QC): 4 Shower Transfer(FIM): 5 OT Short Term Goals Short Term Goals Time Frame: May 28, 2018 Eating(FIM): 5 Grooming(FIM): 5 Bathing(FIM): 5 Upper Body Dressing(FIM): 5 Lower Body Dressing(FIM): 4 Toileting(FIM): 5 Transfers (B,C,W/C) (FIM): 5 Toilet/Commode Transfer(FIM): 5 Additional Short Term Goals: 1-Demonstrate ADL Tasks, 2-Verbalize Understanding , 3-ImproveStrength/Emmy 1=Demonstrate adherence to instructed precautions during ADL tasks. 2=Patient will verbalize/demonstrate understanding of assistive devices/ modifications for ADL. 3=Patient will improve strength/tolerance for activity to enable patient to perform ADL's. OT Cigarette Machines Mechanic Goals Half-Way Goals Time Frame: Jun 04, 2018 Eating (FIM): 6 (met) Eating (QC): 6 (met) Groomin (met) Oral Hygiene (QC): 6 (met) Bathing(FIM): 5 (met) Shower/Bathe Self (QC): 5 (met) Upper Body Dressing(FIM): 6 (met) Upper Body Dressing (QC): 6 (met) Lower Body Dressing(FIM): 5 (not met) Lower Body Dressing (QC): 5 (not me) On/Off Footwear (QC): 5 (met) Toileting(FIM): 6 (not met) Toileting Hygiene (QC): 6 (not met) Transfers (B,C,W/C) (FIM): 6 (not met) Toilet/Commode Transfer(FIM): 6 (not met) Toilet/Commode Transfer (QC): 6 (not met) Shower Transfer(FIM): 5 (met) Additional Goals: 1-Demonstrate ADL Tasks, 2-Verbalize Understanding, 3- ImproveStrength/Emmy 1=Demonstrate adherence to instructed precautions during ADL tasks. 2=Patient will verbalize/demonstrate understanding of assistive devices/ modifications for ADL. 3=Patient will improve strength/tolerance for activity to enable patient to perform ADL's. OT Education/Plan Discharge Recommendations Plan/Recommendations: Continue POC Treatment Plan/Plan of Care Patient would benefit from OT for education, treatment and training to promote independence in ADL's, mobility, safety and/or upper extremity function for ADL' s. Plan of Care: ADL Retraining, Caregiver Training, Functional Mobility, Group Exercise/Act as Ind, UE Funct Exercise/Act Treatment Duration: Jun 04, 2018 Frequency: At least 5 of 7 days/Wk (IRF) Estimated Hrs Per Day: 1.5 hours per day Agreement: Yes Rehab Potential: Good Time/GCodes Start Time: 07:00 Stop Time: 08:00 Total Time Billed (hr/min): 60 Billed Treatment Time 1 visit-ADL 4 (60 min) GEORGIA HICKMAN May 28, 2018 07:58
[2018-05-28] MEDS: PREGABALIN 100 MG (LYRICA) CAPSULE PO SCH ×3 (09:05→21:31)
[2018-05-28] MEDS: ENOXAPARIN 40 MG/0.4 ML (LOVENOX) SYR SC SCH (09:05)
[2018-05-28] MEDS: LORATADINE (CLARITIN) 10 MG TAB PO SCH (09:06)
[2018-05-28] MEDS: SENNA W/DOCUSATE (SENOKOT S) TABLET PO SCH ×2 (09:06→21:33)
[2018-05-28] MEDS: ASPIRIN E.C. 325 MG (ECOTRIN) TABLET PO SCH (09:06)
[2018-05-28] MEDS: FUROSEMIDE 40 MG (LASIX) TAB PO SCH (09:06)
[2018-05-28] MEDS: SERTRALINE 50 MG (ZOLOFT) TABLET PO SCH (09:06)
[2018-05-28] MEDS: OLMESARTAN 20 MG (BENICAR) TABLET PO SCH (09:06)
[2018-05-28] MEDS: MECLIZINE 25 MG (ANTIVERT) TAB PO SCH (09:06)
[2018-05-28] MEDS: LACTULOSE SYRUP 10GM/15ML (ENULOSE) 30ML UDC PO SCH ×2 (09:07→21:32)
[2018-05-28] MEDS: FLUTICASONE NASAL SPRAY (FLONASE) 16 GM BTL NS SCH (09:07)
[2018-05-28 09:19] VITALS: BP 116/66
--- NOTE | 2018-05-28 10:05 | PM & R (SOAP) Progress Note ---
Subjective This was a face to face visit with the patient. Date Seen by Provider: May 28, 2018 Time Seen by Provider: 09:35 Subjective/Events-last exam Patient was seen in her room this AM All set for discharge tomorrow.Patient SBA for transfers Objective Physician Exam Last Set of Vital Signs Vital Signs Date Time Temp Pulse Resp B/P (MAP) Pulse Ox O2 Delivery O2 Flow Rate FiO2 05/28/18 09:19 75 18 116/66 (83) 98 Room Air 05/28/18 05:24 98.2 05/22/18 19:48 2.00 Capillary Refill : I&O Intake and Output 05/28/18 00:00 Intake Total 1890 ml Balance 1890 ml Intake Oral 1890 ml # Voids 11 # Bowel Movements 1 General: Alert, Oriented X3, Cooperative, No Acute Distress HEENT: Atraumatic, PERRLA, EOMI, Mucous Memb Moist/[place] Neck: Supple, No JVD Lungs: Clear to Auscultation Heart: Regular Rate Abdomen: Normal Bowel Sounds, Other (mildly distended) Extremities: Other Neuro: Other (functional strength BUES RTlower limb 4/5) Psych/Mental Status: Mental Status NL Results Lab Data Laboratory Tests 05/25/18 12:35: Glucometer 166H 05/25/18 16:58: Glucometer 176H 05/25/18 21:34: Glucometer 243H 05/26/18 05:45: Glucometer 155H 05/26/18 10:54: Glucometer 207H 05/26/18 16:20: Glucometer 140H 05/26/18 20:46: Glucometer 204H 05/27/18 06:24: Glucometer 146H 05/27/18 11:02: Glucometer 194H 05/27/18 16:03: Glucometer 180H 05/27/18 20:36: Glucometer 255H 05/28/18 05:32: Glucometer 116H Assessment/Plan Assessment and Plan S/P left BKA DR valdes IDDM better controlled OA s/p bilateral TKRS Postop constipation treated HTN PVD Postop anemia s/p transfusion JF on cpap Plan Continue Pt/OT Discharge set for tomorrow with f/u with PCP and ortho Co-Morbidities that are continuing to impact the rehab process: (include details ) LINDA MCKEON MD May 28, 2018 10:05
--- NOTE | 2018-05-28 11:06 | Physical Therapy Daily Note ---
PT Daily Note-Current Subjective Pt sitting in WC in room upon arrival. Pt agrees to PT for FIM scoring for discharge tomorrow. Pain Location: No Pain Reported Comment: Pt reports tape a little tight on back on knee. Mental Status Patient Orientation: Person, Place, Time, Situation Transfers Functional [place] Measure 0=Not Assessed/NA 4=Minimal Assistance 1=Total Assistance 5=Supervision or Setup 2=Maximal Assistance 6=Modified [place] 3=Moderate Assistance 7=Complete IndependenceIRFPAI Quality Coding Scale 6 Independent with activity with or without an assistive device 5 Patient requires set up or clean up by helper. Patient completes activity by themselves 4 Supervision or touching assist (CGA). [place] provide cues , steadying assist 3 The helper provides less than half the effort to complete the activity 2 The helper provides more than half the effort to complete the activity 1 Dependent. The helper does all the effort to complete an activity 7 Patient refused to complete or attempt activity 9 The patient did not perform the activity before the current illness or injury 88 Not attempted due to Medical conditions or safety concerns Transfers (B, C, W/C) (FIM): 6 Scootin Rollin Roll Left to Right (QC): 6 Supine to/from Sit: 6 Sit to/from Stand: 6 Sit to Lying (QC): 6 Sit to Stand (QC): 6 Chair/Trx-kt-Itxjc Xfer(QC): 6 Bed to/from Chair: 6 Car Transfer (QC): 5 Weight Bearing Right Lower Extremity: Right Full Weight Bearing Left Lower Extremity: Left Non Weight Bearing Gait Training Gait (FIM): 88 Pt lacks strength to be able to stand and hop even a couple of feet. This is a safety concern and not attempted at this time. Wheelchair Training Does the Pt Use a Wheelchair?: Yes Wheelchair (FIM): 6 Wheelchair Distance: 3=150 ft Distance: 150' Wheelchair Level of Assist: 6 Wheel 50 ft with 2 turns (QC): 6 Wheel 150 ft (QC): 6 Type of Wheelchair: Manual Stair Training Stairs (FIM): 88 Pt lacks strength to be able to stand and hop even a couple of feet. This is a safety concern and not attempted at this time. Balance Picking up an Object (QC): 6 Special Test Comments Pt is able to pick remover object from seated position but not stand due to safety concern/balance. Exercises Seated Therapy Exercises: Ankle pumps, Long arc quads, Hip flexion, Kicking activity Seated Reps: 15 Treatments Pt completes Seated Ex in WC with rest break after, followed by transfer to EOB using SPT. Pt completes bed mobility then transfers back to [facility]. Pt completes car transfer x3 to work on hand placement, sequencing & proper positioning. Pt returns to room and uses restroom. Pt resting with all needs met at end of tx. Assessment Current Status: Good Progress Pt continues to become more proficient with transfers and [facility] mobility. PT Short Term Goals Short Term Goals Time Frame: May 27, 2018 Transfers (B,C,W/C) (FIM): 5 Wheelchair Distance: 250' PT Manufacturing Quality Inspector Goals Manufacturing Quality Inspector Goals PT Manufacturing Quality Inspector Goals Time Frame: Jun 04, 2018 Transfers (B,C,W/C) (FIM): 6 Sit to Lying (QC): 6 Lying-Sitting on Side/Bed(QC): 6 Sit to Stand (QC): 6 Rollin Roll Left to Right (QC): 6 Chair/Ili-wd-Skxub Xfer(QC): 6 Car Transfer (QC): 6 Does the Patient Walk: No and Walking Goal NOT indicated Wheelchair (FIM): 6 Wheelchair distance (FIM): 3=150 ft Wheelchair Level of Assist: 6 Wheel 50 feet with 2 turns (QC: 6 Stairs (FIM): 88 Picking up an Object (QC): 88 PT Plan Problem List Problem List: Activity Tolerance, Functional Strength, Safety Treatment/Plan Treatment Plan: Continue Plan of Care Treatment Plan: Bed Mobility, Education, Functional Activity Emmy, Functional Strength, Group Therapy, Gait (hopping), Safety, Therapeutic Exercise, Transfers Treatment Duration: Jun 04, 2018 Frequency: At least 5 of 7 days/Wk (IRF) Estimated Hrs Per Day: 1.5 hours per day Patient and/or Family Agrees t: Yes Safety Risks/Education Patient Education: Transfer Techniques, Correct Positioning, Safety Issues Teaching Recipient: Patient Teaching Methods: Discussion Response to Teaching: Verbalize Understanding Time/GCodes Time In: 945 Time Out: 1045 Total Billed Treatment Time: 60 Total Billed Treatment 1, EX (15m), WCH (15m), FA x2 (30m) G Codes Necessary: BETHANY Lujan FLANGING OPERATOR May 28, 2018 11:06
--- NOTE | 2018-05-28 11:12 | D/C HH Face to Face Order ---
D/C Face to Face Orders Instructions for Patient Via [facility], Patient Instructions/FollowUp: Dr. Ramya Stewart Physician to follow Patient: Dr. Stewart Discharge Diet for Home: Regular Diet Patient Data-Allergies,Ht & Wt Patient Allergies: Coded Allergies: Penicillins (Verified Allergy, Unknown, Pt has received Ceftriaxone in the past, 05/13/18) influenza virus vaccine, specific (Verified Adverse Reaction, Unknown, Not allergic just won't take Flu vaccine, 05/13/18) Height (Feet): 5 Height (Inches): 7.00 Weight (Pounds): 183 Weight (Ounces): 3.2 Home Health Need/Face to Face Date of Face to Face: May 29, 2018 Clinical Findings: Generalized weakness and fatigue, Muscle weakness, Non or partial weight bearing I have seen Pt [id number]: Yes Discharged To: Home Diagnosis/Conditions: L BKA Patient is Homebound due to: Morales fall risk due to instabilty, Muscle weakness , Non-weight bearing Homebound Status Due to the above stated illness, injury or surgical procedure (medical condition or diagnosis) and associated clinical findings, the patient is homebound because of his/her inability to leave home except with aid of a supportive device and/or person AND leaving the home requires a considerable and taxing effort or is medically contraindicated. Pt req the following assistanc: Wheelchair Home Health Nursing Orders Home Health Services Order: Upholstery Cleaner-Evaluate & Treat, Physical Therapy-Evaluate & Treat Home Health Infusion Therapy Line Type: [place] Lock Site Location: Hand Therapy Orders Therapy Orders: OT (must have SN or PT order), Physical Therapy Therapy Specific Orders: Eval assistive deivces, Teach enviro modifications/ safety, Gait training, Increase strength/endurance, Restore ROM Certify Stmt I certify that this patient is under my care and that I, a nurse practitioner or a physician; a social services assistant working with me, had a face to face encounter that - meets the physician face to face encounter requirements with this patient as dated. I personally scribed for LINDA MCKEON MD ([facility]) on 05/28/18 at 11:12. Electronically submitted by Xochilt De La Torre ([id number]). LINDA MCKEON MD May 28, 2018 11:12
--- NOTE | 2018-05-28 15:20 | Occupational Ther Daily Note ---
OT Current Status-Daily Note Subjective Pt sitting in w/c with family members present. Family education completed with PT/OT. Mental Status/Objective Functional [place] Measure 0=Not Assessed/NA 4=Minimal Assistance 1=Total Assistance 5=Supervision or Setup 2=Maximal Assistance 6=Modified [place] 3=Moderate Assistance 7=Complete [place] ADL-Treatment Functional [place] Measure 0=Not Assessed/NA 4=Minimal Assistance 1=Total Assistance 5=Supervision or Setup 2=Maximal Assistance 6=Modified [place] 3=Moderate Assistance 7=Complete IndependenceIRFPAI Quality Coding Scale 6 Independent with activity with or without an assistive device 5 Patient requires set up or clean up by helper. Patient completes activity by themselves 4 Supervision or touching assist (CGA). [place] provide cues , steadying assist 3 The helper provides less than half the effort to complete the activity 2 The helper provides more than half the effort to complete the activity 1 Dependent. The helper does all the effort to complete an activity 7 Patient refused to complete or attempt activity 9 The patient did not perform the activity before the current illness or injury 88 Not attempted due to Medical conditions or safety concerns Other Treatment PT worked on transfers, OT worked on functional transfers and lower body dressing. Family was educated on toilet transfers and assist for lower body dressing. Family had questions about where to put grabbars, how to transfer pt to/from toilet and car transfers. Pt's family was able to verbalize understanding of each area and discuss how to set up bathroom and what vehicle to use for ease of transfer. After therapy, pt sitting in w/c with call light/ phone in reach. Family present in room, all needs met. OT Short Term Goals Short Term Goals Time Frame: May 28, 2018 Eating(FIM): 5 Grooming(FIM): 5 Bathing(FIM): 5 Upper Body Dressing(FIM): 5 Lower Body Dressing(FIM): 4 Toileting(FIM): 5 Transfers (B,C,W/C) (FIM): 5 Toilet/Commode Transfer(FIM): 5 Additional Short Term Goals: 1-Demonstrate ADL Tasks, 2-Verbalize Understanding , 3-ImproveStrength/Emmy 1=Demonstrate adherence to instructed precautions during ADL tasks. 2=Patient will verbalize/demonstrate understanding of assistive devices/ modifications for ADL. 3=Patient will improve strength/tolerance for activity to enable patient to perform ADL's. OT Residential Goals Jig Boring Machine Set Up Operator Goals Time Frame: Jun 04, 2018 Eating (FIM): 6 (met) Eating (QC): 6 (met) Groomin (met) Oral Hygiene (QC): 6 (met) Bathing(FIM): 5 (met) Shower/Bathe Self (QC): 5 (met) Upper Body Dressing(FIM): 6 (met) Upper Body Dressing (QC): 6 (met) Lower Body Dressing(FIM): 5 (not met) Lower Body Dressing (QC): 5 (not me) On/Off Footwear (QC): 5 (met) Toileting(FIM): 6 (not met) Toileting Hygiene (QC): 6 (not met) Transfers (B,C,W/C) (FIM): 6 (not met) Toilet/Commode Transfer(FIM): 6 (not met) Toilet/Commode Transfer (QC): 6 (not met) Shower Transfer(FIM): 5 (met) Additional Goals: 1-Demonstrate ADL Tasks, 2-Verbalize Understanding, 3- ImproveStrength/Emmy 1=Demonstrate adherence to instructed precautions during ADL tasks. 2=Patient will verbalize/demonstrate understanding of assistive devices/ modifications for ADL. 3=Patient will improve strength/tolerance for activity to enable patient to perform ADL's. OT Education/Plan Discharge Recommendations Plan/Recommendations: Continue POC Treatment Plan/Plan of Care Patient would benefit from OT for education, treatment and training to promote independence in ADL's, mobility, safety and/or upper extremity function for ADL' s. Plan of Care: ADL Retraining, Caregiver Training, Functional Mobility, Group Exercise/Act as Ind, UE Funct Exercise/Act Treatment Duration: Jun 04, 2018 Frequency: At least 5 of 7 days/Wk (IRF) Estimated Hrs Per Day: 1.5 hours per day Agreement: Yes Rehab Potential: Good Time/GCodes Start Time: 14:30 Stop Time: 15:05 Total Time Billed (hr/min): 35 Billed Treatment Time 1 visit-FA 2 (35 min) co-treat with PT 35 min GEORGIA HICKMAN May 28, 2018 15:20
--- NOTE | 2018-05-28 15:21 | Physical Therapy Daily Note ---
PT Daily Note-Current Subjective Pt sitting in [facility] upon arrival. Pt agrees to PT for Family Training for transfers. Pain Location: No Pain Reported Mental Status Patient Orientation: Person, Place, Time, Situation Transfers Functional [place] Measure 0=Not Assessed/NA 4=Minimal Assistance 1=Total Assistance 5=Supervision or Setup 2=Maximal Assistance 6=Modified [place] 3=Moderate Assistance 7=Complete IndependenceIRFPAI Quality Coding Scale 6 Independent with activity with or without an assistive device 5 Patient requires set up or clean up by helper. Patient completes activity by themselves 4 Supervision or touching assist (CGA). [place] provide cues , steadying assist 3 The helper provides less than half the effort to complete the activity 2 The helper provides more than half the effort to complete the activity 1 Dependent. The helper does all the effort to complete an activity 7 Patient refused to complete or attempt activity 9 The patient did not perform the activity before the current illness or injury 88 Not attempted due to Medical conditions or safety concerns Scootin Sit to/from Stand: 6 Sit to Stand (QC): 6 Car Transfer (QC): 5 Weight Bearing Right Lower Extremity: Right Full Weight Bearing Left Lower Extremity: Left Non Weight Bearing Wheelchair Training Does the Pt Use a Wheelchair?: Yes Wheelchair Distance: 3=150 ft Distance: 150' Wheelchair Level of Assist: 6 Wheel 50 ft with 2 turns (QC): 6 Wheel 150 ft (QC): 6 Type of Wheelchair: Manual Treatments PT & OT completed Family Training with pt & family. This consisted of transfers from [facility] to toilet and car transfers. Pt returns to room to use restroom then rests at end of tx with all needs met. Assessment Current Status: Good Progress Pt occasionally forgets proper hand placement and sequencing during car transfers and needs VC. Family is shown what reminders to give pt for safety. PT Short Term Goals Short Term Goals Time Frame: May 27, 2018 Transfers (B,C,W/C) (FIM): 5 Wheelchair Distance: 150' PT Prison Goals Audiology Assistant Goals PT Audiology Assistant Goals Time Frame: Jun 04, 2018 Transfers (B,C,W/C) (FIM): 6 Sit to Lying (QC): 6 Lying-Sitting on Side/Bed(QC): 6 Sit to Stand (QC): 6 Rollin Roll Left to Right (QC): 6 Chair/Jsk-cc-Affzk Xfer(QC): 6 Car Transfer (QC): 6 Does the Patient Walk: No and Walking Goal NOT indicated Wheelchair (FIM): 6 Wheelchair distance (FIM): 3=150 ft Wheelchair Level of Assist: 6 Wheel 50 feet with 2 turns (QC: 6 Stairs (FIM): 88 Picking up an Object (QC): 88 PT Plan Problem List Problem List: Activity Tolerance, Functional Strength, Safety, Transfer Treatment/Plan Treatment Plan: Continue Plan of Care Treatment Plan: Bed Mobility, Education, Functional Activity Emmy, Functional Strength, Group Therapy, Gait (hopping), Safety, Therapeutic Exercise, Transfers Treatment Duration: Jun 04, 2018 Frequency: At least 5 of 7 days/Wk (IRF) Estimated Hrs Per Day: 1.5 hours per day Patient and/or Family Agrees t: Yes Safety Risks/Education Patient Education: Transfer Techniques, Correct Positioning, Safety Issues Teaching Recipient: Patient, Family Teaching Methods: Demonstration, Discussion Response to Teaching: Verbalize Understanding Time/GCodes Time In: 1430 Time Out: 1505 Total Billed Treatment Time: 35 Total Billed Treatment 1, FA x2 (35m) G Codes Necessary: BETHANY Lujan SUPERVISOR EDGING May 28, 2018 15:21
--- NOTE | 2018-05-28 15:30 | Therapy Group Daily Note ---
Therapy Daily Group Note Patient Education Topic Other List Below (Transfer Training) Exercises LE Seated Exercise, UE Exercise Other/Notes Pt propelled [facility] to PT/OT Group at [facility]. Group consists of Introduction (Name , Where you are from & Secret [place] Ingredient), Socialize, UE/ LE EX, Education and Demonstration of proper Transfer Techniques. Pt actively participated in group by appropriately listening to peer during discussion, performing Exercises and listening and giving feedback during transfer training. Pt returns to room at end of Group to rest. Start Time: 13:00 Stop Time: 14:15 Total Billed Treatment Time: 75 Total Billed Treatment 1, GRP ERNESTOBETHANY CISNEROS TIME SIGNAL WIRER May 28, 2018 15:30
[2018-05-28 16:51] VITALS: BP 151/73
[2018-05-28] MEDS: HYDROcodone/APAP 10 MG/325 MG (LORTAB) TAB PO PRN (16:53)
[2018-05-28] MEDS: inSUlin DETERMIR 1 UNIT/0.01 ML (LEVEMIR) CHARGE PER UNIT SQ SCH (21:31)
[2018-05-28] MEDS: ATORVASTATIN 40 MG (LIPITOR) TABLET PO SCH (21:31)
[2018-05-28] MEDS: traZODone 100 MG (DESYREL) TAB PO SCH (21:31)
[2018-05-29 05:00] VITALS: BP 156/61
[2018-05-29] MEDS: LEVOTHYROXINE 125 MCG (LEVOTHROID) TABLET PO SCH (05:38)
[2018-05-29] MEDS: TROSPIUM 20 MG (SANCTURA) TAB PO SCH (05:38)
[2018-05-29] MEDS: inSUlin ASPART (NovoLOG) 1 UNIT/0.01 ML (CHARGE PER UNIT) SC SCH (05:39)
[2018-05-29] MEDS: RT-ALBUTEROL SULF 2.5 MG/3 ML PRE-MIX VIAL INH SCH (06:46)
[2018-05-29] MEDS: UMECLIDINIUM BROMIDE (INCRUSE ELLIPTA) 7'S IH SCH (06:46)
[2018-05-29] MEDS: RT-ADVAIR HFA 115/21 MCG PER PUFF IH SCH (06:46)
[2018-05-29 08:21] VITALS: BP 150/60
[2018-05-29] MEDS: SERTRALINE 50 MG (ZOLOFT) TABLET PO SCH (08:24)
[2018-05-29] MEDS: LORATADINE (CLARITIN) 10 MG TAB PO SCH (08:24)
[2018-05-29] MEDS: FUROSEMIDE 40 MG (LASIX) TAB PO SCH (08:24)
[2018-05-29] MEDS: MECLIZINE 25 MG (ANTIVERT) TAB PO SCH (08:24)
[2018-05-29] MEDS: OLMESARTAN 20 MG (BENICAR) TABLET PO SCH (08:24)
[2018-05-29] MEDS: PREGABALIN 100 MG (LYRICA) CAPSULE PO SCH (08:24)
[2018-05-29] MEDS: ASPIRIN E.C. 325 MG (ECOTRIN) TABLET PO SCH (08:24)
[2018-05-29] MEDS: ENOXAPARIN 40 MG/0.4 ML (LOVENOX) SYR SC SCH (08:25)
[2018-05-29] MEDS: LACTULOSE SYRUP 10GM/15ML (ENULOSE) 30ML UDC PO SCH (08:33)
[2018-05-29] MEDS: FLUTICASONE NASAL SPRAY (FLONASE) 16 GM BTL NS SCH (08:33)
[2018-05-29] MEDS: SENNA W/DOCUSATE (SENOKOT S) TABLET PO SCH (08:33)
--- NOTE | 2018-05-29 09:32 | PM & R (SOAP) Progress Note ---
Subjective This was a face to face visit with the patient. Date Seen by Provider: May 29, 2018 Time Seen by Provider: 08:45 Subjective/Events-last exam Patient was seen in her room this AM All set for discharge.Has progressed well Objective Physician Exam Last Set of Vital Signs Vital Signs Date Time Temp Pulse Resp B/P (MAP) Pulse Ox O2 Delivery O2 Flow Rate FiO2 05/29/18 08:21 98.2 75 20 150/60 (90) 98 Room Air Capillary Refill : I&O Intake and Output 05/29/18 00:00 Intake Total 1500 ml Balance 1500 ml Intake Oral 1500 ml # Voids 14 # Bowel Movements 1 General: Alert, Oriented X3, Cooperative, No Acute Distress HEENT: Atraumatic, PERRLA, EOMI, Mucous Memb Moist/[place] Neck: Supple, No JVD Lungs: Clear to Auscultation Heart: Regular Rate Abdomen: Normal Bowel Sounds, Other (mildly distended) Extremities: Other Neuro: Other (functional strength BUES RTlower limb 4/5) Psych/Mental Status: Mental Status NL Results Lab Data Laboratory Tests 05/26/18 10:54: Glucometer 207H 05/26/18 16:20: Glucometer 140H 05/26/18 20:46: Glucometer 204H 05/27/18 06:24: Glucometer 146H 05/27/18 11:02: Glucometer 194H 05/27/18 16:03: Glucometer 180H 05/27/18 20:36: Glucometer 255H 05/28/18 05:32: Glucometer 116H 05/28/18 11:50: Glucometer 164H 05/28/18 16:05: Glucometer 144H 05/28/18 21:29: Glucometer 302H 05/29/18 05:39: Glucometer 143H Assessment/Plan Assessment and Plan Home today with HHC F/U with PCP and DR Stewart see orders Co-Morbidities that are continuing to impact the rehab process: (include details ) LINDA MCKEON MD May 29, 2018 09:31
[2018-05-29 10:15] VITALS: BP 150/60
--- NOTE | 2018-05-29 11:05 | Therapy Team Discharge Summary ---
Therapy Discharge Summary Discharge Recommendations Date of Discharge Therapy D/C Recommendations: Home w/ Family Support, Occupational Therapy Home Care, Scheduled Assistance Occupational Therapy Pt admitted to ARU following left BKA. On admission pt required min assist with bathing, toileting, and toilet transfer; and SBA for grooming. Skilled OT treatment focused on ADL training, transfers, strengthening, and safety education. Pt progressed with therapy and by discharge is completing UE ADLs with modified independence, LE dressing with min assist and shower transfer, toilet transfer, and toileting with SBA. Pt did not meet online advertising analyst goals for LE dressing, toileting, and toilet transfer, but met all other goals. Pt discharging home this date with family support. D/c ARU OT at this time. Decreased Activ Tolerance, Dependent Transfers, Impaired Bed Mobility, Impaired Funct Balance, Impaired I ADL's, Impaired Self-Care Skills PT Nursing Home Goals Mixed Animal Veterinarian Goals PT Mixed Animal Veterinarian Goals Time Frame: Jun 04, 2018 Transfers (B,C,W/C) (FIM): 6 Roll Left to Right (QC): 6 Sit to Lying (QC): 6 Lying-Sitting on Side/Bed(QC): 6 Sit to Stand (QC): 6 Chair/Lxl-bk-Jmlkf Xfer(QC): 6 Car Transfer (QC): 6 Does the Patient Walk: No and Walking Goal NOT indicated Wheelchair (FIM): 6 Wheelchair distance (FIM): 3=150 ft Wheelchair Level of Assist: 6 Wheel 50 feet with 2 turns (QC: 6 Stairs (FIM): 88 Picking up an Object (QC): 88 OT Mixed Animal Veterinarian Goals Nursing Home Goals Time Frame: Jun 04, 2018 Eating (FIM): 6 (met) Eating (QC): 6 (met) Oral Hygiene (QC): 6 (met) Grooming(FIM): 6 (met) Bathing(FIM): 5 (met) Shower/Bathe Self (QC): 5 (met) Upper Body Dressing(FIM): 6 (met) Upper Body Dressing (QC): 6 (met) Lower Body Dressing(FIM): 5 (not met) Lower Body Dressing (QC): 5 (not me) On/Off Footwear (QC): 5 (met) Toileting(FIM): 6 (not met) Toileting Hygiene (QC): 6 (not met) Transfers (B,C,W/C) (FIM): 6 (not met) Toilet/Commode Transfer(FIM): 6 (not met) Toilet/Commode Transfer (QC): 6 (not met) Shower Transfer(FIM): 5 (met) Additional Goals: 1-Demonstrate ADL Tasks, 2-Verbalize Understanding, 3- ImproveStrength/Emmy 1=Demonstrate adherence to instructed precautions during ADL tasks. 2=Patient will verbalize/demonstrate understanding of assistive devices/ modifications for ADL. 3=Patient will improve strength/tolerance for activity to enable patient to perform ADL's. Speech Nursing Home Goals Nursing Home Goals no goals established as skilled ST not indicated. JEMMA JACKSON OT May 29, 2018 11:05
--- NOTE | 2018-05-29 11:15 | Therapy Team Discharge Summary ---
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 Upon evaluation patient performed bed mobility with CGA, sit to stand with min to mod assist, car transfer with min assist, stand pivot transfer with CGA, and could propel a manual wheelchair 150' with min assist. Patient has been performing bed mobility and transfer training, balance and endurance training, functional strengthening, wheelchair mobility training, and education. Patient has made fair progress and has met all of her skilled nursing goals. Now, patient performs bed mobility and transfers with mod I, car transfer mod I, and can propel a manual wheelchair 150' with mod I. Patient has been discharged from this facility and will be discharged from PT at this time. Occupational Therapy Decreased Activ Tolerance, Dependent Transfers, Impaired Bed Mobility, Impaired Funct Balance, Impaired I ADL's, Impaired Self-Care Skills PT Fdc Goals Fdc Goals PT Fdc Goals Time Frame: Jun 04, 2018 Transfers (B,C,W/C) (FIM): 6 Roll Left to Right (QC): 6 Sit to Lying (QC): 6 Lying-Sitting on Side/Bed(QC): 6 Sit to Stand (QC): 6 Chair/Lzg-le-Byxvy Xfer(QC): 6 Car Transfer (QC): 6 Does the Patient Walk: No and Walking Goal NOT indicated Wheelchair (FIM): 6 Wheelchair distance (FIM): 3=150 ft Wheelchair Level of Assist: 6 Wheel 50 feet with 2 turns (QC: 6 Stairs (FIM): 88 Picking up an Object (QC): 88 OT Fdc Goals Fdc Goals Time Frame: Jun 04, 2018 Eating (FIM): 6 (met) Eating (QC): 6 (met) Oral Hygiene (QC): 6 (met) Grooming(FIM): 6 (met) Bathing(FIM): 5 (met) Shower/Bathe Self (QC): 5 (met) Upper Body Dressing(FIM): 6 (met) Upper Body Dressing (QC): 6 (met) Lower Body Dressing(FIM): 5 (not met) Lower Body Dressing (QC): 5 (not me) On/Off Footwear (QC): 5 (met) Toileting(FIM): 6 (not met) Toileting Hygiene (QC): 6 (not met) Transfers (B,C,W/C) (FIM): 6 (not met) Toilet/Commode Transfer(FIM): 6 (not met) Toilet/Commode Transfer (QC): 6 (not met) Shower Transfer(FIM): 5 (met) Additional Goals: 1-Demonstrate ADL Tasks, 2-Verbalize Understanding, 3- ImproveStrength/Emmy 1=Demonstrate adherence to instructed precautions during ADL tasks. 2=Patient will verbalize/demonstrate understanding of assistive devices/ modifications for ADL. 3=Patient will improve strength/tolerance for activity to enable patient to perform ADL's. Speech Warehouse Distribution Associate Goals Fdc Goals no goals established as skilled ST not indicated. YELENA HOU PT May 29, 2018 11:15
[2018-06-05] MEDS ORDERED: CEPH-507 PO (11:12)
== END 2018-05-29 10:15 | disposition home health service (06) | DRG 561 ==
PROVIDERS: ADMIT Physical Medicine & Rehabilitation; ATTEND Physical Medicine & Rehabilitation
DX: Z47.81 Encounter for orthopedic aftercare following surgical amputation (principal); Z89.512 Acquired absence of left leg below knee; E11.51 Type 2 diabetes mellitus with diabetic peripheral angiopathy without gangrene; E11.610 Type 2 diabetes mellitus with diabetic neuropathic arthropathy; R26.2 Difficulty in walking, not elsewhere classified; I10 Essential (primary) hypertension; D64.9 Anemia, unspecified; K59.00 Constipation, unspecified; G47.33 Obstructive sleep apnea (adult) (pediatric); M19.91 Primary osteoarthritis, unspecified site; Z79.01 Long term (current) use of anticoagulants; Z96.653 Presence of artificial knee joint, bilateral
CPT/HCPCS: 36415; 80048; 82962; 85027; 94640; 94760

== ENCOUNTER 2018-07-17 08:58 | Outpatient (RCR) | payer MEDICARE, MEDICAID ==
[~2018-07-17 08:58] MED LIST changes: +CEPH-507 PO
== END 2018-07-27 16:00 | disposition home or self-care (01) ==
PROVIDERS: ATTEND Orthopaedic Surgery
DX: Z47.89 Encounter for other orthopedic aftercare (principal); Z89.512 Acquired absence of left leg below knee

== ENCOUNTER 2018-07-22 15:02 | Outpatient (RCR) | payer MEDICARE, MEDICAID ==
[2018-04-28 11:12] LABS: BASOPHILS # (AUTO) 0.1 10^3/uL (0.0-0.1); BASOPHILS % (AUTO) 1 % (0-10); EOSINOPHILS # (AUTO) 0.3 10^3/uL (0.0-0.3); EOSINOPHILS % (AUTO) 3 % (0-10); HEMATOCRIT 31 % (35-52); LYMPHOCYTES # (AUTO) 2.5 X 10^3 (1.0-4.0); LYMPHOCYTES % (AUTO) 25 % (12-44); MEAN CORPUSCULAR HEMOGLOBIN 27 PG (25-34); MEAN CORPUSCULAR HGB CONC 32 G/DL (32-36); MEAN CORPUSCULAR VOLUME 85 FL (80-99); MEAN PLATELET VOLUME 9.2 FL (7.4-10.4); MONOCYTES # (AUTO) 0.7 X 10^3 (0.0-1.0); MONOCYTES % (AUTO) 7 % (0-12); NEUTROPHILS # (AUTO) 6.5 X 10^3 (1.8-7.8); NEUTROPHILS % (AUTO) 64 % (42-75); PLATELET COUNT 196 10^3/uL (130-400); RED BLOOD COUNT 3.66 10^6/uL (4.35-5.85); RED CELL DISTRIBUTION WIDTH 18.2 % (10.0-14.5); WHITE BLOOD COUNT 10.1 10^3/uL (4.3-11.0)
[2018-05-13 14:32] LABS: BASOPHILS % (AUTO) 0 % (0-10); EOSINOPHILS # (AUTO) 0.2 10^3/uL (0.0-0.3); EOSINOPHILS % (AUTO) 2 % (0-10); HEMATOCRIT 28 % (35-52); HEMOGLOBIN 9.1 G/DL (11.5-16.0); LYMPHOCYTES % (AUTO) 18 % (12-44); MEAN CORPUSCULAR HEMOGLOBIN 28 PG (25-34); MEAN CORPUSCULAR HGB CONC 33 G/DL (32-36); MEAN CORPUSCULAR VOLUME 85 FL (80-99); MEAN PLATELET VOLUME 9.4 FL (7.4-10.4); MONOCYTES # (AUTO) 0.6 X 10^3 (0.0-1.0); MONOCYTES % (AUTO) 5 % (0-12); NEUTROPHILS # (AUTO) 8.1 X 10^3 (1.8-7.8); NEUTROPHILS % (AUTO) 74 % (42-75); PLATELET COUNT 162 10^3/uL (130-400); RED BLOOD COUNT 3.31 10^6/uL (4.35-5.85)
[2018-05-13 15:10] LABS: ALBUMIN 3.6 GM/DL (3.2-4.5); BILIRUBIN,TOTAL 0.5 MG/DL (0.1-1.0); CALCIUM 9.5 MG/DL (8.5-10.1); CREATININE SERUM 1.48 MG/DL (0.60-1.30); POTASSIUM 4.2 MMOL/L (3.6-5.0); TOTAL PROTEIN 6.3 GM/DL (6.4-8.2)
[2018-06-10 15:32] LABS: BASOPHILS # (AUTO) 0.1 10^3/uL (0.0-0.1); BASOPHILS % (AUTO) 0 % (0-10); EOSINOPHILS # (AUTO) 0.8 10^3/uL (0.0-0.3); EOSINOPHILS % (AUTO) 6 % (0-10); HEMATOCRIT 27 % (35-52); HEMOGLOBIN 8.4 G/DL (11.5-16.0); LYMPHOCYTES # (AUTO) 2.5 X 10^3 (1.0-4.0); LYMPHOCYTES % (AUTO) 20 % (12-44); MEAN CORPUSCULAR HEMOGLOBIN 28 PG (25-34); MEAN CORPUSCULAR HGB CONC 32 G/DL (32-36); MEAN CORPUSCULAR VOLUME 88 FL (80-99); MONOCYTES # (AUTO) 0.6 X 10^3 (0.0-1.0); MONOCYTES % (AUTO) 5 % (0-12); NEUTROPHILS # (AUTO) 8.7 X 10^3 (1.8-7.8); NEUTROPHILS % (AUTO) 69 % (42-75); PLATELET COUNT 182 10^3/uL (130-400); RED BLOOD COUNT 3.02 10^6/uL (4.35-5.85); RED CELL DISTRIBUTION WIDTH 17.8 % (10.0-14.5); WHITE BLOOD COUNT 12.6 10^3/uL (4.3-11.0)
[2018-06-24 10:10] LABS: BASOPHILS % (AUTO) 0 % (0-10); EOSINOPHILS # (AUTO) 0.5 10^3/uL (0.0-0.3); EOSINOPHILS % (AUTO) 6 % (0-10); HEMATOCRIT 28 % (35-52); LYMPHOCYTES # (AUTO) 2.6 X 10^3 (1.0-4.0); LYMPHOCYTES % (AUTO) 30 % (12-44); MEAN CORPUSCULAR HEMOGLOBIN 28 PG (25-34); MEAN CORPUSCULAR HGB CONC 32 G/DL (32-36); MEAN CORPUSCULAR VOLUME 89 FL (80-99); MEAN PLATELET VOLUME 9.6 FL (7.4-10.4); MONOCYTES # (AUTO) 0.6 X 10^3 (0.0-1.0); MONOCYTES % (AUTO) 7 % (0-12); NEUTROPHILS # (AUTO) 5.1 X 10^3 (1.8-7.8); NEUTROPHILS % (AUTO) 58 % (42-75); PLATELET COUNT 139 10^3/uL (130-400); RED BLOOD COUNT 3.17 10^6/uL (4.35-5.85); RED CELL DISTRIBUTION WIDTH 18.4 % (10.0-14.5); WHITE BLOOD COUNT 8.9 10^3/uL (4.3-11.0)
[2018-07-07 15:04] LABS: BASOPHILS % (AUTO) 0 % (0-10); EOSINOPHILS # (AUTO) 0.3 10^3/uL (0.0-0.3); EOSINOPHILS % (AUTO) 3 % (0-10); HEMATOCRIT 31 % (35-52); HEMOGLOBIN 9.8 G/DL (11.5-16.0); LYMPHOCYTES # (AUTO) 1.8 X 10^3 (1.0-4.0); LYMPHOCYTES % (AUTO) 18 % (12-44); MEAN CORPUSCULAR HEMOGLOBIN 28 PG (25-34); MEAN CORPUSCULAR HGB CONC 31 G/DL (32-36); MEAN CORPUSCULAR VOLUME 89 FL (80-99); MEAN PLATELET VOLUME 9.6 FL (7.4-10.4); MONOCYTES # (AUTO) 0.7 X 10^3 (0.0-1.0); MONOCYTES % (AUTO) 7 % (0-12); NEUTROPHILS # (AUTO) 7.3 X 10^3 (1.8-7.8); NEUTROPHILS % (AUTO) 72 % (42-75); PLATELET COUNT 106 10^3/uL (130-400); RED BLOOD COUNT 3.51 10^6/uL (4.35-5.85); WHITE BLOOD COUNT 10.1 10^3/uL (4.3-11.0)
[2018-07-07 15:22] LABS: ALBUMIN 4.3 GM/DL (3.2-4.5); CALCIUM 10.5 MG/DL (8.5-10.1); CREATININE SERUM 1.54 MG/DL (0.60-1.30); POTASSIUM 4.3 MMOL/L (3.6-5.0); TOTAL PROTEIN 7.1 GM/DL (6.4-8.2)
[2018-07-07 15:59] LABS: BILIRUBIN,URINE NEGATIVE (NEGATIVE); CLARITY,URINE VERY CLOUDY; COLOR,URINE YELLOW; GLUCOSE, URINE (UA) 1+ (NEGATIVE); KETONES,URINE NEGATIVE (NEGATIVE); LEUKOCYTE ESTERASE ,URINE 3+ (NEGATIVE); NITRITE,URINE NEGATIVE (NEGATIVE); PH,URINE 6 (5-9); PROTEIN,URINE 3+ (NEGATIVE); UROBILINOGEN,URINE NORMAL (NORMAL)
[2018-07-07 16:09] LABS: BACTERIA,URINE FEW /HPF; WBC,URINE TNTC /HPF
[~2018-07-22 15:02] MED LIST changes: +DARBEPOETIN 40 MCG/ML (ARANESP) 1 ML VIAL SC SCH; +DARBEPOETIN 60 MCG/ML ARANESP (CANCER CTR) INJ SCH
[2018-07-22 15:23] LABS: BASOPHILS % (AUTO) 1 % (0-10); EOSINOPHILS # (AUTO) 0.3 10^3/uL (0.0-0.3); EOSINOPHILS % (AUTO) 3 % (0-10); HEMATOCRIT 30 % (35-52); HEMOGLOBIN 9.3 G/DL (11.5-16.0); LYMPHOCYTES # (AUTO) 1.7 X 10^3 (1.0-4.0); LYMPHOCYTES % (AUTO) 20 % (12-44); MEAN CORPUSCULAR HEMOGLOBIN 28 PG (25-34); MEAN CORPUSCULAR HGB CONC 31 G/DL (32-36); MEAN CORPUSCULAR VOLUME 90 FL (80-99); MEAN PLATELET VOLUME 9.3 FL (7.4-10.4); MONOCYTES # (AUTO) 0.5 X 10^3 (0.0-1.0); MONOCYTES % (AUTO) 6 % (0-12); NEUTROPHILS # (AUTO) 5.9 X 10^3 (1.8-7.8); NEUTROPHILS % (AUTO) 71 % (42-75); PLATELET COUNT 127 10^3/uL (130-400); RED CELL DISTRIBUTION WIDTH 17.7 % (10.0-14.5); WHITE BLOOD COUNT 8.3 10^3/uL (4.3-11.0)
== END 2018-07-27 | disposition home or self-care (01) ==
LOC: ONC 15:02
PROVIDERS: ATTEND Internal Medicine Hematology & Oncology
DX: N18.4 Chronic kidney disease, stage 4 (severe) (principal); D63.1 Anemia in chronic kidney disease; E11.22 Type 2 diabetes mellitus with diabetic chronic kidney disease; I12.9 Hypertensive chronic kidney disease with stage 1 through stage 4 chronic kidney disease, or unspecified chronic kidney disease; D50.9 Iron deficiency anemia, unspecified; I25.10 Atherosclerotic heart disease of native coronary artery without angina pectoris; J44.9 Chronic obstructive pulmonary disease, unspecified; R82.998 Other abnormal findings in urine; E03.9 Hypothyroidism, unspecified; R91.1 Solitary pulmonary nodule; E78.2 Mixed hyperlipidemia; G47.33 Obstructive sleep apnea (adult) (pediatric); I27.20 Pulmonary hypertension, unspecified; I73.9 Peripheral vascular disease, unspecified; M19.91 Primary osteoarthritis, unspecified site; Z79.82 Long term (current) use of aspirin; Z79.4 Long term (current) use of insulin; Z79.899 Other long term (current) drug therapy
CPT/HCPCS: 36415; 80053; 81000; 82728; 85025; 87077; 87088; 87186; 96372

== ENCOUNTER 2018-10-07 10:56 | Outpatient (RCR) | payer MEDICARE, MEDICAID ==
[~2018-10-07 10:56] MED LIST changes: -AMLO10TA6 PO; +AMLO10TA7 PO; -AMLO5TAB7 PO; +AMLO5TAB9 PO; -DARBEPOETIN 40 MCG/ML (ARANESP) 1 ML VIAL SC SCH; -DARBEPOETIN 60 MCG/ML ARANESP (CANCER CTR) INJ SCH
== END 2018-10-07 12:12 | disposition home or self-care (01) ==
PROVIDERS: ATTEND Orthopaedic Surgery
DX: Z47.89 Encounter for other orthopedic aftercare (principal); Z89.512 Acquired absence of left leg below knee

== ENCOUNTER 2018-10-27 13:05 | Outpatient (RCR) | payer MEDICARE, MEDICAID ==
[2018-08-04 14:43] LABS: BASOPHILS % (AUTO) 0 % (0-10); EOSINOPHILS # (AUTO) 0.2 10^3/uL (0.0-0.3); EOSINOPHILS % (AUTO) 2 % (0-10); HEMATOCRIT 31 % (35-52); HEMOGLOBIN 9.6 G/DL (11.5-16.0); LYMPHOCYTES # (AUTO) 2.5 X 10^3 (1.0-4.0); LYMPHOCYTES % (AUTO) 23 % (12-44); MEAN CORPUSCULAR HEMOGLOBIN 28 PG (25-34); MEAN CORPUSCULAR HGB CONC 31 G/DL (32-36); MEAN CORPUSCULAR VOLUME 88 FL (80-99); MEAN PLATELET VOLUME 9.6 FL (7.4-10.4); MONOCYTES # (AUTO) 0.6 X 10^3 (0.0-1.0); MONOCYTES % (AUTO) 6 % (0-12); NEUTROPHILS # (AUTO) 7.3 X 10^3 (1.8-7.8); NEUTROPHILS % (AUTO) 68 % (42-75); PLATELET COUNT 139 10^3/uL (130-400); RED CELL DISTRIBUTION WIDTH 17.3 % (10.0-14.5); WHITE BLOOD COUNT 10.7 10^3/uL (4.3-11.0)
[2018-08-18 11:24] LABS: BASOPHILS # (AUTO) 0.1 10^3/uL (0.0-0.1); BASOPHILS % (AUTO) 1 % (0-10); EOSINOPHILS # (AUTO) 0.4 10^3/uL (0.0-0.3); EOSINOPHILS % (AUTO) 4 % (0-10); HEMATOCRIT 31 % (35-52); HEMOGLOBIN 9.6 G/DL (11.5-16.0); LYMPHOCYTES # (AUTO) 2.6 X 10^3 (1.0-4.0); LYMPHOCYTES % (AUTO) 26 % (12-44); MEAN CORPUSCULAR HEMOGLOBIN 27 PG (25-34); MEAN CORPUSCULAR HGB CONC 31 G/DL (32-36); MEAN CORPUSCULAR VOLUME 87 FL (80-99); MEAN PLATELET VOLUME 9.7 FL (7.4-10.4); MONOCYTES # (AUTO) 0.7 X 10^3 (0.0-1.0); MONOCYTES % (AUTO) 7 % (0-12); NEUTROPHILS # (AUTO) 6.3 X 10^3 (1.8-7.8); NEUTROPHILS % (AUTO) 63 % (42-75); PLATELET COUNT 141 10^3/uL (130-400); RED CELL DISTRIBUTION WIDTH 17.5 % (10.0-14.5); WHITE BLOOD COUNT 10.1 10^3/uL (4.3-11.0)
[2018-08-18 11:29] LABS: BILIRUBIN,URINE NEGATIVE (NEGATIVE); CLARITY,URINE VERY CLOUDY; COLOR,URINE YELLOW; GLUCOSE, URINE (UA) NEGATIVE (NEGATIVE); KETONES,URINE NEGATIVE (NEGATIVE); LEUKOCYTE ESTERASE ,URINE 3+ (NEGATIVE); NITRITE,URINE POSITIVE (NEGATIVE); PH,URINE 5 (5-9); PROTEIN,URINE 3+ (NEGATIVE); UROBILINOGEN,URINE NORMAL (NORMAL)
[2018-08-18 11:40] LABS: RBC,URINE 0-2 /HPF
[2018-08-18 11:41] LABS: BACTERIA,URINE LARGE /HPF; SQUAMOUS EPITHELIAL CELL,UR 0-2 /HPF; WBC,URINE TNTC /HPF
[2018-09-01 14:00] LABS: BASOPHILS % (AUTO) 0 % (0-10); EOSINOPHILS # (AUTO) 0.3 10^3/uL (0.0-0.3); EOSINOPHILS % (AUTO) 4 % (0-10); HEMATOCRIT 28 % (35-52); HEMOGLOBIN 8.5 G/DL (11.5-16.0); LYMPHOCYTES # (AUTO) 1.8 X 10^3 (1.0-4.0); LYMPHOCYTES % (AUTO) 21 % (12-44); MEAN CORPUSCULAR HEMOGLOBIN 27 PG (25-34); MEAN CORPUSCULAR HGB CONC 31 G/DL (32-36); MEAN CORPUSCULAR VOLUME 86 FL (80-99); MEAN PLATELET VOLUME 9.5 FL (7.4-10.4); MONOCYTES # (AUTO) 0.5 X 10^3 (0.0-1.0); MONOCYTES % (AUTO) 6 % (0-12); NEUTROPHILS # (AUTO) 6.1 X 10^3 (1.8-7.8); NEUTROPHILS % (AUTO) 69 % (42-75); PLATELET COUNT 99 10^3/uL (130-400); RED CELL DISTRIBUTION WIDTH 17.1 % (10.0-14.5); WHITE BLOOD COUNT 8.7 10^3/uL (4.3-11.0)
[2018-09-01 14:19] LABS: CALCIUM 10.1 MG/DL (8.5-10.1); CREATININE SERUM 1.65 MG/DL (0.60-1.30); POTASSIUM 4.5 MMOL/L (3.6-5.0)
[2018-09-01 14:20] LABS: ALBUMIN 4.2 GM/DL (3.2-4.5); BILIRUBIN,TOTAL 0.7 MG/DL (0.1-1.0); TOTAL PROTEIN 6.9 GM/DL (6.4-8.2)
[2018-09-08 10:34] LABS: BASOPHILS % (AUTO) 0 % (0-10); EOSINOPHILS # (AUTO) 0.6 10^3/uL (0.0-0.3); EOSINOPHILS % (AUTO) 6 % (0-10); HEMATOCRIT 29 % (35-52); HEMOGLOBIN 8.8 G/DL (11.5-16.0); LYMPHOCYTES # (AUTO) 2.2 X 10^3 (1.0-4.0); LYMPHOCYTES % (AUTO) 21 % (12-44); MEAN CORPUSCULAR HEMOGLOBIN 26 PG (25-34); MEAN CORPUSCULAR HGB CONC 30 G/DL (32-36); MEAN CORPUSCULAR VOLUME 87 FL (80-99); MEAN PLATELET VOLUME 10.1 FL (7.4-10.4); MONOCYTES # (AUTO) 0.8 X 10^3 (0.0-1.0); MONOCYTES % (AUTO) 7 % (0-12); NEUTROPHILS # (AUTO) 6.9 X 10^3 (1.8-7.8); NEUTROPHILS % (AUTO) 65 % (42-75); PLATELET COUNT 133 10^3/uL (130-400); RED CELL DISTRIBUTION WIDTH 17.2 % (10.0-14.5); WHITE BLOOD COUNT 10.5 10^3/uL (4.3-11.0)
[2018-09-15 10:11] LABS: BASOPHILS % (AUTO) 1 % (0-10); EOSINOPHILS # (AUTO) 0.5 10^3/uL (0.0-0.3); EOSINOPHILS % (AUTO) 6 % (0-10); HEMATOCRIT 29 % (35-52); HEMOGLOBIN 8.8 G/DL (11.5-16.0); LYMPHOCYTES # (AUTO) 2.3 X 10^3 (1.0-4.0); LYMPHOCYTES % (AUTO) 29 % (12-44); MEAN CORPUSCULAR HEMOGLOBIN 27 PG (25-34); MEAN CORPUSCULAR HGB CONC 30 G/DL (32-36); MEAN CORPUSCULAR VOLUME 90 FL (80-99); MEAN PLATELET VOLUME 9.7 FL (7.4-10.4); MONOCYTES # (AUTO) 0.4 X 10^3 (0.0-1.0); MONOCYTES % (AUTO) 5 % (0-12); NEUTROPHILS # (AUTO) 4.6 X 10^3 (1.8-7.8); NEUTROPHILS % (AUTO) 59 % (42-75); PLATELET COUNT 147 10^3/uL (130-400); RED CELL DISTRIBUTION WIDTH 19.5 % (10.0-14.5); WHITE BLOOD COUNT 7.8 10^3/uL (4.3-11.0)
[2018-09-22 12:49] LABS: BASOPHILS % (AUTO) 0 % (0-10); EOSINOPHILS # (AUTO) 0.3 10^3/uL (0.0-0.3); EOSINOPHILS % (AUTO) 4 % (0-10); HEMATOCRIT 29 % (35-52); LYMPHOCYTES # (AUTO) 1.6 X 10^3 (1.0-4.0); LYMPHOCYTES % (AUTO) 21 % (12-44); MEAN CORPUSCULAR HEMOGLOBIN 28 PG (25-34); MEAN CORPUSCULAR HGB CONC 31 G/DL (32-36); MEAN CORPUSCULAR VOLUME 91 FL (80-99); MONOCYTES # (AUTO) 0.7 X 10^3 (0.0-1.0); MONOCYTES % (AUTO) 9 % (0-12); NEUTROPHILS # (AUTO) 4.9 X 10^3 (1.8-7.8); NEUTROPHILS % (AUTO) 65 % (42-75); PLATELET COUNT 114 10^3/uL (130-400); RED CELL DISTRIBUTION WIDTH 20.9 % (10.0-14.5); WHITE BLOOD COUNT 7.6 10^3/uL (4.3-11.0)
[2018-09-22 13:35] LABS: BILIRUBIN,URINE NEGATIVE (NEGATIVE); CLARITY,URINE VERY CLOUDY; COLOR,URINE YELLOW; GLUCOSE, URINE (UA) NEGATIVE (NEGATIVE); KETONES,URINE NEGATIVE (NEGATIVE); LEUKOCYTE ESTERASE ,URINE 3+ (NEGATIVE); NITRITE,URINE NEGATIVE (NEGATIVE); PH,URINE 6 (5-9); PROTEIN,URINE 3+ (NEGATIVE); UROBILINOGEN,URINE NORMAL (NORMAL)
[2018-09-22 13:45] LABS: BACTERIA,URINE MODERATE /HPF; RBC,URINE RARE /HPF; SQUAMOUS EPITHELIAL CELL,UR 0-2 /HPF; WBC,URINE >100 /HPF
[2018-09-29 09:32] LABS: BASOPHILS % (AUTO) 0 % (0-10); EOSINOPHILS # (AUTO) 0.5 10^3/uL (0.0-0.3); EOSINOPHILS % (AUTO) 5 % (0-10); HEMATOCRIT 32 % (35-52); HEMOGLOBIN 9.8 G/DL (11.5-16.0); LYMPHOCYTES # (AUTO) 2.5 X 10^3 (1.0-4.0); LYMPHOCYTES % (AUTO) 26 % (12-44); MEAN CORPUSCULAR HEMOGLOBIN 28 PG (25-34); MEAN CORPUSCULAR HGB CONC 31 G/DL (32-36); MEAN CORPUSCULAR VOLUME 91 FL (80-99); MEAN PLATELET VOLUME 8.9 FL (7.4-10.4); MONOCYTES # (AUTO) 0.5 X 10^3 (0.0-1.0); MONOCYTES % (AUTO) 5 % (0-12); NEUTROPHILS # (AUTO) 6.1 X 10^3 (1.8-7.8); NEUTROPHILS % (AUTO) 64 % (42-75); PLATELET COUNT 115 10^3/uL (130-400); RED CELL DISTRIBUTION WIDTH 20.8 % (10.0-14.5); WHITE BLOOD COUNT 9.6 10^3/uL (4.3-11.0)
[2018-10-06 10:19] LABS: BASOPHILS # (AUTO) 0.1 10^3/uL (0.0-0.1); BASOPHILS % (AUTO) 1 % (0-10); EOSINOPHILS # (AUTO) 0.6 10^3/uL (0.0-0.3); EOSINOPHILS % (AUTO) 6 % (0-10); HEMATOCRIT 34 % (35-52); HEMOGLOBIN 10.6 G/DL (11.5-16.0); LYMPHOCYTES # (AUTO) 2.6 X 10^3 (1.0-4.0); LYMPHOCYTES % (AUTO) 26 % (12-44); MEAN CORPUSCULAR HEMOGLOBIN 28 PG (25-34); MEAN CORPUSCULAR HGB CONC 31 G/DL (32-36); MEAN CORPUSCULAR VOLUME 91 FL (80-99); MEAN PLATELET VOLUME 9.3 FL (7.4-10.4); MONOCYTES # (AUTO) 0.5 X 10^3 (0.0-1.0); MONOCYTES % (AUTO) 5 % (0-12); NEUTROPHILS # (AUTO) 6.3 X 10^3 (1.8-7.8); NEUTROPHILS % (AUTO) 63 % (42-75); PLATELET COUNT 134 10^3/uL (130-400); RED CELL DISTRIBUTION WIDTH 20.5 % (10.0-14.5); WHITE BLOOD COUNT 10.1 10^3/uL (4.3-11.0)
[2018-10-13 09:55] LABS: BASOPHILS % (AUTO) 0 % (0-10); EOSINOPHILS # (AUTO) 0.4 10^3/uL (0.0-0.3); EOSINOPHILS % (AUTO) 3 % (0-10); HEMATOCRIT 34 % (35-52); HEMOGLOBIN 10.5 G/DL (11.5-16.0); LYMPHOCYTES # (AUTO) 1.2 X 10^3 (1.0-4.0); LYMPHOCYTES % (AUTO) 10 % (12-44); MEAN CORPUSCULAR HEMOGLOBIN 29 PG (25-34); MEAN CORPUSCULAR HGB CONC 31 G/DL (32-36); MEAN CORPUSCULAR VOLUME 92 FL (80-99); MEAN PLATELET VOLUME 9.9 FL (7.4-10.4); MONOCYTES # (AUTO) 0.5 X 10^3 (0.0-1.0); MONOCYTES % (AUTO) 4 % (0-12); NEUTROPHILS # (AUTO) 9.5 X 10^3 (1.8-7.8); NEUTROPHILS % (AUTO) 83 % (42-75); PLATELET COUNT 110 10^3/uL (130-400); RED CELL DISTRIBUTION WIDTH 20.3 % (10.0-14.5); WHITE BLOOD COUNT 11.6 10^3/uL (4.3-11.0)
[2018-10-20 09:21] LABS: BASOPHILS # (AUTO) 0.1 10^3/uL (0.0-0.1); BASOPHILS % (AUTO) 1 % (0-10); EOSINOPHILS # (AUTO) 0.6 10^3/uL (0.0-0.3); EOSINOPHILS % (AUTO) 8 % (0-10); HEMATOCRIT 32 % (35-52); HEMOGLOBIN 10.1 G/DL (11.5-16.0); LYMPHOCYTES # (AUTO) 2.4 X 10^3 (1.0-4.0); LYMPHOCYTES % (AUTO) 29 % (12-44); MEAN CORPUSCULAR HEMOGLOBIN 28 PG (25-34); MEAN CORPUSCULAR HGB CONC 32 G/DL (32-36); MEAN CORPUSCULAR VOLUME 90 FL (80-99); MEAN PLATELET VOLUME 9.3 FL (7.4-10.4); MONOCYTES # (AUTO) 0.5 X 10^3 (0.0-1.0); MONOCYTES % (AUTO) 6 % (0-12); NEUTROPHILS # (AUTO) 4.6 X 10^3 (1.8-7.8); NEUTROPHILS % (AUTO) 57 % (42-75); PLATELET COUNT 156 10^3/uL (130-400); RED CELL DISTRIBUTION WIDTH 19.2 % (10.0-14.5); WHITE BLOOD COUNT 8.1 10^3/uL (4.3-11.0)
[~2018-10-27 13:05] MED LIST changes: +DARBEPOETIN 40 MCG/ML (ARANESP) 1 ML VIAL SC SCH; +DARBEPOETIN 60 MCG/ML ARANESP (CANCER CTR) INJ SCH; +FERRIC CARBOXYMALTOSE (CANCER) 750 MG in NS (IVPB) CANCER CENTER 250 ML IV SCH
[2018-10-27 13:29] LABS: BASOPHILS % (AUTO) 0 % (0-10); EOSINOPHILS # (AUTO) 0.3 10^3/uL (0.0-0.3); EOSINOPHILS % (AUTO) 3 % (0-10); HEMATOCRIT 33 % (35-52); HEMOGLOBIN 10.1 G/DL (11.5-16.0); LYMPHOCYTES # (AUTO) 2.2 X 10^3 (1.0-4.0); LYMPHOCYTES % (AUTO) 23 % (12-44); MEAN CORPUSCULAR HEMOGLOBIN 29 PG (25-34); MEAN CORPUSCULAR HGB CONC 31 G/DL (32-36); MEAN CORPUSCULAR VOLUME 92 FL (80-99); MEAN PLATELET VOLUME 9.6 FL (7.4-10.4); MONOCYTES # (AUTO) 0.5 X 10^3 (0.0-1.0); MONOCYTES % (AUTO) 5 % (0-12); NEUTROPHILS # (AUTO) 6.5 X 10^3 (1.8-7.8); NEUTROPHILS % (AUTO) 68 % (42-75); PLATELET COUNT 123 10^3/uL (130-400); RED CELL DISTRIBUTION WIDTH 18.6 % (10.0-14.5); WHITE BLOOD COUNT 9.5 10^3/uL (4.3-11.0)
[2018-10-27 13:53] LABS: ALBUMIN 4.2 GM/DL (3.2-4.5); BILIRUBIN,TOTAL 0.6 MG/DL (0.1-1.0); CALCIUM 10.2 MG/DL (8.5-10.1); CREATININE SERUM 1.35 MG/DL (0.60-1.30); POTASSIUM 4.9 MMOL/L (3.6-5.0); TOTAL PROTEIN 6.8 GM/DL (6.4-8.2)
[2018-10-27] MEDS ORDERED: DARBEPOETIN 40 MCG/ML (ARANESP) 1 ML VIAL SC ONE (14:11)
== END 2018-11-02 | disposition home or self-care (01) ==
LOC: ONC 13:05
PROVIDERS: ATTEND Internal Medicine Hematology & Oncology
DX: N18.4 Chronic kidney disease, stage 4 (severe) (principal); D63.1 Anemia in chronic kidney disease; E11.22 Type 2 diabetes mellitus with diabetic chronic kidney disease; I12.9 Hypertensive chronic kidney disease with stage 1 through stage 4 chronic kidney disease, or unspecified chronic kidney disease; D50.9 Iron deficiency anemia, unspecified; I25.10 Atherosclerotic heart disease of native coronary artery without angina pectoris; J44.9 Chronic obstructive pulmonary disease, unspecified; E03.9 Hypothyroidism, unspecified; R91.1 Solitary pulmonary nodule; E78.2 Mixed hyperlipidemia; G47.33 Obstructive sleep apnea (adult) (pediatric); I27.20 Pulmonary hypertension, unspecified; I73.9 Peripheral vascular disease, unspecified; M19.91 Primary osteoarthritis, unspecified site; Z79.82 Long term (current) use of aspirin; Z79.4 Long term (current) use of insulin; Z79.899 Other long term (current) drug therapy
CPT/HCPCS: 36415; 80053; 81000; 82728; 85025; 87077; 87088; 87186; 96365; 96372

== ENCOUNTER → 2018-12-08 | Outpatient (CLI) | payer MEDICARE, MEDICAID ==
[~2018-12-08] MED LIST changes: -DARBEPOETIN 40 MCG/ML (ARANESP) 1 ML VIAL SC SCH; -DARBEPOETIN 60 MCG/ML ARANESP (CANCER CTR) INJ SCH; -FERRIC CARBOXYMALTOSE (CANCER) 750 MG in NS (IVPB) CANCER CENTER 250 ML IV SCH
== END ==
LOC: LAB 10:24
PROVIDERS: ATTEND Internal Medicine
DX: E11.9 Type 2 diabetes mellitus without complications (principal)
CPT/HCPCS: 83036

== ENCOUNTER → 2018-12-23 | Outpatient (CLI) | payer MEDICARE, MEDICAID ==
[2018-12-23 11:42] LABS: ALBUMIN 4.1 GM/DL (3.2-4.5); BILIRUBIN,TOTAL 0.5 MG/DL (0.1-1.0); CALCIUM 10.1 MG/DL (8.5-10.1); CREATININE SERUM 1.5 MG/DL (0.60-1.30); POTASSIUM 4.5 MMOL/L (3.6-5.0); TOTAL PROTEIN 6.6 GM/DL (6.4-8.2)
== END ==
LOC: LAB 10:35
PROVIDERS: ATTEND Nurse Practitioner Family
DX: E03.9 Hypothyroidism, unspecified (principal); E11.8 Type 2 diabetes mellitus with unspecified complications; Z79.4 Long term (current) use of insulin
CPT/HCPCS: 36415; 80053; 84443

== ENCOUNTER 2019-01-20 09:24 | Outpatient (RCR) | payer MEDICARE, MEDICAID ==
[2018-11-17 10:10] LABS: BASOPHILS % (AUTO) 1 % (0-10); EOSINOPHILS # (AUTO) 0.4 10^3/uL (0.0-0.3); EOSINOPHILS % (AUTO) 5 % (0-10); HEMATOCRIT 31 % (35-52); HEMOGLOBIN 9.8 G/DL (11.5-16.0); LYMPHOCYTES # (AUTO) 2.1 X 10^3 (1.0-4.0); LYMPHOCYTES % (AUTO) 27 % (12-44); MEAN CORPUSCULAR HEMOGLOBIN 28 PG (25-34); MEAN CORPUSCULAR HGB CONC 31 G/DL (32-36); MEAN CORPUSCULAR VOLUME 91 FL (80-99); MEAN PLATELET VOLUME 9.5 FL (7.4-10.4); MONOCYTES # (AUTO) 0.5 X 10^3 (0.0-1.0); MONOCYTES % (AUTO) 6 % (0-12); NEUTROPHILS # (AUTO) 4.8 X 10^3 (1.8-7.8); NEUTROPHILS % (AUTO) 62 % (42-75); PLATELET COUNT 116 10^3/uL (130-400); RED CELL DISTRIBUTION WIDTH 17.1 % (10.0-14.5); WHITE BLOOD COUNT 7.7 10^3/uL (4.3-11.0)
[2018-11-24 13:17] LABS: BASOPHILS # (AUTO) 0.1 10^3/uL (0.0-0.1); BASOPHILS % (AUTO) 1 % (0-10); EOSINOPHILS # (AUTO) 0.3 10^3/uL (0.0-0.3); EOSINOPHILS % (AUTO) 4 % (0-10); HEMATOCRIT 31 % (35-52); HEMOGLOBIN 9.7 G/DL (11.5-16.0); LYMPHOCYTES # (AUTO) 2.2 X 10^3 (1.0-4.0); LYMPHOCYTES % (AUTO) 26 % (12-44); MEAN CORPUSCULAR HEMOGLOBIN 28 PG (25-34); MEAN CORPUSCULAR HGB CONC 31 G/DL (32-36); MEAN CORPUSCULAR VOLUME 90 FL (80-99); MEAN PLATELET VOLUME 9.9 FL (7.4-10.4); MONOCYTES # (AUTO) 0.7 X 10^3 (0.0-1.0); MONOCYTES % (AUTO) 8 % (0-12); NEUTROPHILS # (AUTO) 5.1 X 10^3 (1.8-7.8); NEUTROPHILS % (AUTO) 61 % (42-75); PLATELET COUNT 152 10^3/uL (130-400); WHITE BLOOD COUNT 8.3 10^3/uL (4.3-11.0)
[2018-12-01 13:12] LABS: BASOPHILS % (AUTO) 1 % (0-10); EOSINOPHILS # (AUTO) 0.4 10^3/uL (0.0-0.3); EOSINOPHILS % (AUTO) 4 % (0-10); HEMATOCRIT 30 % (35-52); HEMOGLOBIN 9.2 G/DL (11.5-16.0); LYMPHOCYTES # (AUTO) 2.1 X 10^3 (1.0-4.0); LYMPHOCYTES % (AUTO) 24 % (12-44); MEAN CORPUSCULAR HEMOGLOBIN 28 PG (25-34); MEAN CORPUSCULAR HGB CONC 31 G/DL (32-36); MEAN CORPUSCULAR VOLUME 89 FL (80-99); MEAN PLATELET VOLUME 9.3 FL (7.4-10.4); MONOCYTES # (AUTO) 0.7 X 10^3 (0.0-1.0); MONOCYTES % (AUTO) 8 % (0-12); NEUTROPHILS # (AUTO) 5.6 X 10^3 (1.8-7.8); NEUTROPHILS % (AUTO) 63 % (42-75); PLATELET COUNT 149 10^3/uL (130-400); RED CELL DISTRIBUTION WIDTH 16.6 % (10.0-14.5); WHITE BLOOD COUNT 8.8 10^3/uL (4.3-11.0)
[2018-12-01 13:46] LABS: BACTERIA,URINE LARGE /HPF; BILIRUBIN,URINE NEGATIVE (NEGATIVE); CLARITY,URINE SLIGHTLY CLOUDY; COLOR,URINE YELLOW; GLUCOSE, URINE (UA) NEGATIVE (NEGATIVE); KETONES,URINE NEGATIVE (NEGATIVE); LEUKOCYTE ESTERASE ,URINE 3+ (NEGATIVE); NITRITE,URINE NEGATIVE (NEGATIVE); PH,URINE 6 (5-9); PROTEIN,URINE 3+ (NEGATIVE); UROBILINOGEN,URINE NORMAL (NORMAL); WBC,URINE TNTC /HPF
[2018-12-08 10:41] LABS: BASOPHILS % (AUTO) 1 % (0-10); EOSINOPHILS # (AUTO) 0.4 10^3/uL (0.0-0.3); EOSINOPHILS % (AUTO) 4 % (0-10); HEMATOCRIT 27 % (35-52); HEMOGLOBIN 8.5 G/DL (11.5-16.0); LYMPHOCYTES % (AUTO) 23 % (12-44); MEAN CORPUSCULAR HEMOGLOBIN 27 PG (25-34); MEAN CORPUSCULAR HGB CONC 31 G/DL (32-36); MEAN CORPUSCULAR VOLUME 87 FL (80-99); MEAN PLATELET VOLUME 9.9 FL (7.4-10.4); MONOCYTES # (AUTO) 0.7 X 10^3 (0.0-1.0); MONOCYTES % (AUTO) 8 % (0-12); NEUTROPHILS # (AUTO) 5.4 X 10^3 (1.8-7.8); NEUTROPHILS % (AUTO) 64 % (42-75); PLATELET COUNT 131 10^3/uL (130-400); RED CELL DISTRIBUTION WIDTH 16.2 % (10.0-14.5); WHITE BLOOD COUNT 8.5 10^3/uL (4.3-11.0)
[2018-12-15 11:13] LABS: BASOPHILS % (AUTO) 0 % (0-10); EOSINOPHILS # (AUTO) 0.4 10^3/uL (0.0-0.3); EOSINOPHILS % (AUTO) 5 % (0-10); HEMATOCRIT 29 % (35-52); LYMPHOCYTES # (AUTO) 1.5 X 10^3 (1.0-4.0); LYMPHOCYTES % (AUTO) 18 % (12-44); MEAN CORPUSCULAR HEMOGLOBIN 27 PG (25-34); MEAN CORPUSCULAR HGB CONC 31 G/DL (32-36); MEAN CORPUSCULAR VOLUME 87 FL (80-99); MEAN PLATELET VOLUME 9.7 FL (7.4-10.4); MONOCYTES # (AUTO) 0.5 X 10^3 (0.0-1.0); MONOCYTES % (AUTO) 6 % (0-12); NEUTROPHILS # (AUTO) 5.8 X 10^3 (1.8-7.8); NEUTROPHILS % (AUTO) 71 % (42-75); PLATELET COUNT 139 10^3/uL (130-400); RED CELL DISTRIBUTION WIDTH 16.8 % (10.0-14.5); WHITE BLOOD COUNT 8.2 10^3/uL (4.3-11.0)
[2018-12-23 10:13] LABS: BASOPHILS % (AUTO) 1 % (0-10); EOSINOPHILS # (AUTO) 0.4 10^3/uL (0.0-0.3); EOSINOPHILS % (AUTO) 5 % (0-10); HEMATOCRIT 26 % (35-52); LYMPHOCYTES # (AUTO) 2.2 X 10^3 (1.0-4.0); LYMPHOCYTES % (AUTO) 27 % (12-44); MEAN CORPUSCULAR HEMOGLOBIN 27 PG (25-34); MEAN CORPUSCULAR HGB CONC 31 G/DL (32-36); MEAN CORPUSCULAR VOLUME 87 FL (80-99); MEAN PLATELET VOLUME 9.5 FL (7.4-10.4); MONOCYTES # (AUTO) 0.6 X 10^3 (0.0-1.0); MONOCYTES % (AUTO) 7 % (0-12); NEUTROPHILS # (AUTO) 4.9 X 10^3 (1.8-7.8); NEUTROPHILS % (AUTO) 61 % (42-75); PLATELET COUNT 137 10^3/uL (130-400); RED CELL DISTRIBUTION WIDTH 16.9 % (10.0-14.5)
[2018-12-23 10:38] LABS: ALBUMIN 4.1 GM/DL (3.2-4.5); BILIRUBIN,TOTAL 0.5 MG/DL (0.1-1.0); CALCIUM 10.1 MG/DL (8.5-10.1); CREATININE SERUM 1.51 MG/DL (0.60-1.30); POTASSIUM 4.5 MMOL/L (3.6-5.0); TOTAL PROTEIN 6.6 GM/DL (6.4-8.2)
[2018-12-30 14:29] LABS: BASOPHILS % (AUTO) 0 % (0-10); EOSINOPHILS # (AUTO) 0.4 10^3/uL (0.0-0.3); EOSINOPHILS % (AUTO) 3 % (0-10); HEMATOCRIT 28 % (35-52); HEMOGLOBIN 8.7 G/DL (11.5-16.0); LYMPHOCYTES # (AUTO) 2.4 X 10^3 (1.0-4.0); LYMPHOCYTES % (AUTO) 15 % (12-44); MEAN CORPUSCULAR HEMOGLOBIN 27 PG (25-34); MEAN CORPUSCULAR HGB CONC 31 G/DL (32-36); MEAN CORPUSCULAR VOLUME 89 FL (80-99); MONOCYTES # (AUTO) 0.9 X 10^3 (0.0-1.0); MONOCYTES % (AUTO) 5 % (0-12); NEUTROPHILS # (AUTO) 12.2 X 10^3 (1.8-7.8); NEUTROPHILS % (AUTO) 77 % (42-75); PLATELET COUNT 165 10^3/uL (130-400); RED CELL DISTRIBUTION WIDTH 18.6 % (10.0-14.5); WHITE BLOOD COUNT 15.9 10^3/uL (4.3-11.0)
[2019-01-06 09:47] LABS: BASOPHILS # (AUTO) 0.1 10^3/uL (0.0-0.1); BASOPHILS % (AUTO) 1 % (0-10); EOSINOPHILS # (AUTO) 0.4 10^3/uL (0.0-0.3); EOSINOPHILS % (AUTO) 5 % (0-10); HEMATOCRIT 31 % (35-52); HEMOGLOBIN 9.6 G/DL (11.5-16.0); LYMPHOCYTES # (AUTO) 2.3 X 10^3 (1.0-4.0); LYMPHOCYTES % (AUTO) 27 % (12-44); MEAN CORPUSCULAR HEMOGLOBIN 28 PG (25-34); MEAN CORPUSCULAR HGB CONC 31 G/DL (32-36); MEAN CORPUSCULAR VOLUME 90 FL (80-99); MEAN PLATELET VOLUME 9.2 FL (7.4-10.4); MONOCYTES # (AUTO) 0.5 X 10^3 (0.0-1.0); MONOCYTES % (AUTO) 6 % (0-12); NEUTROPHILS # (AUTO) 5.3 X 10^3 (1.8-7.8); NEUTROPHILS % (AUTO) 62 % (42-75); PLATELET COUNT 160 10^3/uL (130-400); WHITE BLOOD COUNT 8.5 10^3/uL (4.3-11.0)
[2019-01-13 13:45] LABS: BASOPHILS % (AUTO) 0 % (0-10); EOSINOPHILS # (AUTO) 0.4 10^3/uL (0.0-0.3); EOSINOPHILS % (AUTO) 2 % (0-10); HEMATOCRIT 31 % (35-52); HEMOGLOBIN 9.9 G/DL (11.5-16.0); LYMPHOCYTES # (AUTO) 2.1 X 10^3 (1.0-4.0); LYMPHOCYTES % (AUTO) 12 % (12-44); MEAN CORPUSCULAR HEMOGLOBIN 29 PG (25-34); MEAN CORPUSCULAR HGB CONC 32 G/DL (32-36); MEAN CORPUSCULAR VOLUME 91 FL (80-99); MEAN PLATELET VOLUME 9.7 FL (7.4-10.4); MONOCYTES # (AUTO) 0.9 X 10^3 (0.0-1.0); MONOCYTES % (AUTO) 5 % (0-12); NEUTROPHILS # (AUTO) 14.1 X 10^3 (1.8-7.8); NEUTROPHILS % (AUTO) 81 % (42-75); PLATELET COUNT 137 10^3/uL (130-400); RED CELL DISTRIBUTION WIDTH 19.6 % (10.0-14.5); WHITE BLOOD COUNT 17.5 10^3/uL (4.3-11.0)
[~2019-01-20 09:24] MED LIST changes: +ARANESP INJ SCH; +DARBEPOETIN 40 MCG/ML (ARANESP) 1 ML VIAL SC ONE; +DARBEPOETIN 40 MCG/ML (ARANESP) 1 ML VIAL SC SCH; +DARBEPOETIN INJ SCH; +FERRIC CARBOXYMALTOSE (CANCER) 750 MG in NS (IVPB) CANCER CENTER 250 ML IV SCH
[2019-01-20 09:46] LABS: BASOPHILS # (AUTO) 0.1 10^3/uL (0.0-0.1); BASOPHILS % (AUTO) 1 % (0-10); EOSINOPHILS # (AUTO) 0.5 10^3/uL (0.0-0.3); EOSINOPHILS % (AUTO) 7 % (0-10); HEMATOCRIT 32 % (35-52); LYMPHOCYTES # (AUTO) 1.9 X 10^3 (1.0-4.0); LYMPHOCYTES % (AUTO) 26 % (12-44); MEAN CORPUSCULAR HEMOGLOBIN 28 PG (25-34); MEAN CORPUSCULAR HGB CONC 31 G/DL (32-36); MEAN CORPUSCULAR VOLUME 89 FL (80-99); MONOCYTES # (AUTO) 0.5 X 10^3 (0.0-1.0); MONOCYTES % (AUTO) 7 % (0-12); NEUTROPHILS # (AUTO) 4.2 X 10^3 (1.8-7.8); NEUTROPHILS % (AUTO) 59 % (42-75); PLATELET COUNT 140 10^3/uL (130-400); RED CELL DISTRIBUTION WIDTH 18.8 % (10.0-14.5); WHITE BLOOD COUNT 7.1 10^3/uL (4.3-11.0)
[2019-01-20] MEDS ORDERED: DARBEPOETIN 100 MCG/ML (ARANESP) 1 ML VIAL SC ONE (09:48)
== END 2019-02-15 | disposition home or self-care (01) ==
LOC: ONC 09:24
PROVIDERS: ATTEND Internal Medicine Hematology & Oncology
DX: N18.4 Chronic kidney disease, stage 4 (severe) (principal); D63.1 Anemia in chronic kidney disease; E11.22 Type 2 diabetes mellitus with diabetic chronic kidney disease; I12.9 Hypertensive chronic kidney disease with stage 1 through stage 4 chronic kidney disease, or unspecified chronic kidney disease; D50.9 Iron deficiency anemia, unspecified; I25.10 Atherosclerotic heart disease of native coronary artery without angina pectoris; J44.9 Chronic obstructive pulmonary disease, unspecified; E03.9 Hypothyroidism, unspecified; R91.1 Solitary pulmonary nodule; E78.2 Mixed hyperlipidemia; G47.33 Obstructive sleep apnea (adult) (pediatric); I27.20 Pulmonary hypertension, unspecified; I73.9 Peripheral vascular disease, unspecified; M19.91 Primary osteoarthritis, unspecified site; Z79.82 Long term (current) use of aspirin; Z79.4 Long term (current) use of insulin; Z79.899 Other long term (current) drug therapy
CPT/HCPCS: 36415; 80053; 81000; 82728; 85025; 87077; 87088; 96365; 96372

== ENCOUNTER → 2019-03-23 | Outpatient (CLI) | payer MEDICARE, MEDICAID ==
[~2019-03-23] MED LIST changes: -ARANESP INJ SCH; -DARBEPOETIN 40 MCG/ML (ARANESP) 1 ML VIAL SC ONE; -DARBEPOETIN 40 MCG/ML (ARANESP) 1 ML VIAL SC SCH; -DARBEPOETIN INJ SCH; -FERRIC CARBOXYMALTOSE (CANCER) 750 MG in NS (IVPB) CANCER CENTER 250 ML IV SCH
--- NOTE | 2019-03-23 17:02 | Diagnostic Imaging Report ---
EXAMINATION: Right wrist radiographs, 3 views. COMPARISON: None. HISTORY: 84-year-old female, right wrist deformity after a fall. FINDINGS: The bones appear demineralized. There is sclerosis in the proximal and ulnar side of the lunate. There does appear to be positive ulnar variance. There are moderate triscaphe degenerative changes and severe osteoarthritis at the first carpometacarpal articulation. There are vascular calcifications. There is soft tissue swelling adjacent to the ulnar aspect of the distal ulna. There is no radiographically visible fracture. There is no identified additional bone malalignment. IMPRESSION: 1. No identified acute fracture. 2. 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 3. Moderate triscaphe and severe degenerative changes at the first carpometacarpal joint. 4. The bones appear demineralized. Dictated by: Dictated on workstation # [id number]
== END ==
LOC: RAD 16:07
PROVIDERS: ATTEND Nurse Practitioner
DX: M19.031 Primary osteoarthritis, right wrist (principal); M89.8X8 Other specified disorders of bone, other site; M21.931 Unspecified acquired deformity of right forearm; W19.XXXA Unspecified fall, initial encounter; Y92.009 Unspecified place in unspecified non-institutional (private) residence as the place of occurrence of the external cause
CPT/HCPCS: 73110

== ENCOUNTER 2019-04-02 14:32 | Emergency (ER) | payer MEDICARE, MEDICAID ==
[~2019-04-02] VITALS: Ht 170.2 cm; Wt 82.6 kg
--- NOTE | 2019-04-02 15:13 | ED Lower Extremity ---
General Chief Complaint: General Problems/Pain Stated Complaint: POSS UTI;FOOT PAIN Nursing Triage Note: PATIENT HERE FOR A SWOLLEN RIGHT ANKLE. SHE DOES NOT RECALL AN INJURY. INCREASED PAIN WHEN BARING WEIGHT. DAUGHTER ALSO STATES THAT SHE MAY BE GETTING A URINARY TRACT INFECTION. Nursing Sepsis Screen: No Definite Risk Source: patient, family Exam Limitations: no limitations History of Present Illness Date Seen by Provider: Apr 02, 2019 Time Seen by Provider: 15:11 Initial Comments This 84 year old female presents with complaint of right ankle pain as been present for the last several days. 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 Patient denies trauma to the area. She has had no associated fever or chills. Physical exam was unremarkable other than to right ankle area which demonstrates bilateral malleolar swelling. No e patient's pain was significantly improved with tramadol and she hadn't home. Vidence of instability is noted. No undue inflammation present. Allergies and Home Medications Allergies Coded Allergies: Penicillins (Verified Allergy, Unknown, Pt has received Ceftriaxone in the past, 05/13/18) influenza virus vaccine, specific (Verified Adverse Reaction, Unknown, Not allergic just won't take Flu vaccine, 05/13/18) Home Medications Acetaminophen 500 Mg Tablet, 500 MG PO Q6H PRN for PAIN-MILD, (Reported) Albuterol Sulfate 18 Gm Hfa.aer.ad, 2 PUFF INH Q4H PRN for SHORTNESS OF BREATH, (Reported) Aspirin 81 Mg Tablet.dr, 81 MG PO DAILY, (Reported) Atorvastatin Calcium 40 Mg Tablet, 40 MG PO HS, (Reported) Cephalexin 500 Mg Capsule, 500 MG PO BID Prescribed by: SUHA TAYLOR on 06/05/18 1112 Citalopram Hydrobromide 20 Mg Tablet, 20 MG PO HS, (Reported) Cyclosporine 1 Each Droperette, 1 DROP OU BID, (Reported) Fluticasone Propionate 16 Gm [place].susp, 1 SPRAY NS DAILY, (Reported) Fluticasone/Salmeterol 1 Each Blst.w.dev, 1 PUFF IH BID, (Reported) Folic Acid 1 Mg Tablet, 1 MG PO DAILY, (Reported) Furosemide 40 Mg Tablet, 40 MG PO DAILY, (Reported) Insulin Aspart 100 Unit/1 Ml Susp, 10 UNIT SQ 0800, (Reported) Insulin Aspart 100 Unit/1 Ml Susp, 2 UNIT SQ 1200, (Reported) Insulin Aspart 100 Unit/1 Ml Susp, 6 UNIT SQ 1700, (Reported) Insulin Aspart 100 Unit/1 Ml Susp, SQ AC, (Reported) USES SLIDING SCALE IN ADDITION TO HER SCHEDULED INSULIN DOSE: 150-200=2 UNITS 201-250=4 UNITS 251-300=6 UNITS 301-350=8 UNITS 351-400=10 UNITS OVER 400=12 UNITS Insulin Degludec 100 Unit/1 Ml Insuln.pen, 35 UNIT SQ HS, (Reported) Levothyroxine Sodium 125 Mcg Tablet, 125 MCG PO DAILY, (Reported) Loratadine 10 Mg Tablet, 10 MG PO DAILY, (Reported) Meclizine HCl 25 Mg Tablet, 25 MG PO DAILY, (Reported) Metoprolol Succinate 25 Mg Tab.er.24h, 25 MG PO BID, (Reported) Multivitamin 1 Each Tablet, 1 TAB PO DAILY, (Reported) Niacin 1,000 Mg Tab.er.24h, 1,000 MG PO HS, (Reported) Olmesartan Medoxomil 20 Mg Tablet, 10 MG PO DAILY, (Reported) TAKES 1/2 (20MG) TABLET Chemult 3 Polyunsat Fatty Acids 1,000 Mg Cap, 3,000 MG PO DAILY, (Reported) Omeprazole 40 Mg Capsule.dr, 40 MG PO DAILY, (Reported) Pregabalin 100 Mg Capsule, 100 MG PO 0800,1500,2100, (Reported) Sertraline HCl 50 Mg Tablet, 50 MG PO DAILY, (Reported) Solifenacin Succinate 5 Mg Tablet, 5 MG PO DAILY, (Reported) Tiotropium [place] 1 Inh Aerp, 1 CAP IH HS, (Reported) Trazodone HCl 100 Mg Tablet, 100 MG PO HS, (Reported) Patient Home Medication List Home Medication List Reviewed: Yes Review of Systems Constitutional: No chills, No fever EENTM: no symptoms reported Respiratory: no symptoms reported Cardiovascular: no symptoms reported Gastrointestinal: no symptoms reported Genitourinary: no symptoms reported Musculoskeletal: see HPI, joint pain (right ankle) Skin: No change in color, No rash Psychiatric/Neurological: No Symptoms Reported Past Kpryjhu-Dijpwt-Bcegek Hx Past Med/Social Hx: Reviewed Nursing Past Med/Soc Hx Patient Social History Alcohol Use: Denies Use Recreational Drug Use: No Smoking Status: Never a Smoker 2nd Hand Smoke Exposure: No Recent Foreign Travel: No Contact w/Someone Who Travel: No Recent Infectious Disease Expo: No Recent Hopitalizations: Yes Immunizations Up To Date Tetanus Booster (TDap): Unknown Date of Pneumonia Vaccine: Aug 28, 2012 Seasonal Allergies Seasonal Allergies: Yes Past Medical History Surgeries: Yes (CATARACTS, BILAT KNEE REPLACEMENT,BKA) Appendectomy, Eye Surgery, Hysterectomy, Joint Replacement, Orthopedic Respiratory: Yes Sleep Apnea Currently Using CPAP: Yes (with oxygen) Currently Using BIPAP: No Cardiac: Yes (STENTS) Coronary Artery Disease, High Cholesterol, Hypertension Neurological: No Dementia 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 Disorders: No Female 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 Disorders: Denies PRODUCE WRAPPER 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: Menopausal Sexually Transmitted Disease: No HIV/AIDS: No Genitourinary: Yes Kidney Infection, Bladder Infection, Renal Failure, UTI-Chronic Gastrointestinal: Yes Gastroesophageal Reflux, Chronic Constipation, Polyps, Hiatal Hernia Musculoskeletal: Yes Amputee, Arthritis Endocrine: Yes Diabetes, Insulin dep, Hypothyroidsim HEENT: Yes (GLASSES) Cataract Loss of Vision: Bilateral Hearing Impairment: Denies Cancer: No Psychosocial: Yes Anxiety, Depression Integumentary: Yes (bruises) Recent Skin Changes Blood Disorders: Yes (ANEMIA) Adverse Reaction/Blood Tranf: No Family Medical History Arthritis Cardiovascular disease Diabetes mellitus Hypertension Diabetes, Hypertension Physical Exam Vital Signs Vital Signs - First Documented 04/02/19 14:45 Temp 97.9 Pulse 73 Resp 18 B/P (MAP) 109/71 (84) Pulse Ox 97 Capillary Refill : Less Than 3 Seconds Height, Weight, BMI Height: 5'7.00" Weight: 182lbs. 0oz. 82.220496vi; 29.0 BMI Method:Stated General Appearance: WD/WN, no apparent distress HEENT: normal ENT inspection Neck: normal inspection Cardiovascular: regular rate, rhythm Respiratory: no respiratory distress Back: normal inspection Ankles: right ankle pain, right ankle soft tissue tenderness, right ankle swelling Neurologic/Psychiatric: alert Skin: normal color, warm/dry Progress/Results/Core Measures Results/Orders My Orders Orders - MARCIA BERG MD Ankle, Right, 3 Views (04/02/19 14:58) Vital Signs/I&O 04/02/19 14:45 Temp 97.9 Pulse 73 Resp 18 B/P (MAP) 109/71 (84) Pulse Ox 97 Blood Pressure Mean: 84 Progress Progress Note : Time: 16:12 Progress Note X-ray of the right ankle demonstrated degenerative changes and joint effusion. No evidence of fracture dislocation was noted. Departure Impression Primary Impression: Degenerative arthritis of right ankle Qualified Codes: M19.071 - Primary osteoarthritis, right ankle and foot Disposition: HOME, SELF-CARE Condition: Unchanged Departure-Patient Inst. Decision time for Depature: 16:13 Referrals: ARABELLA AGUILERA DO (PCP) Primary Care Physician Patient Instructions: Osteoarthritis (DC) Add. Discharge Instructions: Toradol for pain. Close follow-up with your doctor on Friday. Return if any problems or questions. All discharge instructions reviewed with patient and/or family. Voiced understanding. Scripts Tramadol HCl (Tramadol HCl) 50 Mg Tablet 100 MG PO Q6H PRN for PAIN for 3 Days, #30 TAB 0 Refills Prov: MARCIA BERG MD 04/02/19 MARCIA BERG MD Apr 02, 2019 15:13
--- NOTE | 2019-04-02 15:57 | NUR ---
assisted pt to bathroom at this time. no difficulty.
--- NOTE | 2019-04-02 16:04 | Diagnostic Imaging Report ---
INDICATION: Right ankle pain and swelling. TIME OF EXAM: 3:49 PM TECHNIQUE: 3 views of the right ankle were obtained. FINDINGS: There is soft tissue swelling about the medial and lateral ankle. Ankle alignment appears normal. There are some ankle joint degenerative changes. Ankle mortise is well maintained. Talar dome is smooth. No fracture or dislocation is seen. There is a large plantar calcaneal spur. IMPRESSION: Soft tissue swelling and chronic changes, as described. No acute bony abnormality is detected. Dictated by: Dictated on workstation # [id number]
[2019-04-02 16:16] VITALS: BP 109/71
[2019-04-02] MEDS ORDERED: TRAM50TA2 PO (16:16)
== END 2019-04-02 16:22 | disposition home or self-care (01) ==
LOC: EDUNIT# 14:32 → ER 14:33
DX: M19.071 Primary osteoarthritis, right ankle and foot (principal); G47.30 Sleep apnea, unspecified; I10 Essential (primary) hypertension; E78.00 Pure hypercholesterolemia, unspecified; I25.10 Atherosclerotic heart disease of native coronary artery without angina pectoris; F03.90 Unspecified dementia, unspecified severity, without behavioral disturbance, psychotic disturbance, mood disturbance, and anxiety; K21.9 Gastro-esophageal reflux disease without esophagitis; E11.9 Type 2 diabetes mellitus without complications; E03.9 Hypothyroidism, unspecified; F41.9 Anxiety disorder, unspecified; F32.9 Major depressive disorder, single episode, unspecified; Z86.010 Personal history of colon polyps; Z99.81 Dependence on supplemental oxygen; Z89.512 Acquired absence of left leg below knee; Z88.0 Allergy status to penicillin; Z88.7 Allergy status to serum and vaccine; Z79.4 Long term (current) use of insulin; Z96.653 Presence of artificial knee joint, bilateral; Z90.49 Acquired absence of other specified parts of digestive tract; Z90.710 Acquired absence of both cervix and uterus; Z82.49 Family history of ischemic heart disease and other diseases of the circulatory system
CPT/HCPCS: 73610

== ENCOUNTER → 2019-04-05 | Outpatient (CLI) | payer MEDICARE, MEDICAID ==
--- NOTE | 2019-04-05 16:04 | Diagnostic Imaging Report ---
INDICATION: Cough, weakness. COMPARISON: June 03, 2018. TECHNIQUE: Three radiographs of the chest dated April 05, 2019. FINDINGS: The cardiac silhouette is within normal limits in size. No significant pulmonary vascular congestion. The lungs are clear without focal pulmonary opacity. Vascular stent graft is again noted overlying the upper chest. No significant pleural effusion. No pneumothorax. Scattered osseous degenerative changes without acute osseous abnormality. IMPRESSION: Stable examination without acute cardiopulmonary abnormality. Dictated by: Dictated on workstation # [id number]
== END ==
LOC: RAD 15:11
PROVIDERS: ATTEND Internal Medicine
DX: R05 Cough (principal); R53.1 Weakness
CPT/HCPCS: 71046

== ENCOUNTER → 2019-04-07 | Outpatient (CLI) | payer MEDICARE, MEDICAID ==
--- NOTE | 2019-04-07 16:41 | Diagnostic Imaging Report ---
INDICATION: Right leg pain and swelling. TECHNIQUE: Grayscale with color-flow and Doppler waveform evaluation of the right lower extremity deep venous system. CORRELATION STUDY: None FINDINGS: Color and grayscale sonographic images demonstrate no intraluminal defect within the visualized portion of the common femoral, superficial femoral and/or popliteal veins to suggest thrombus formation. These vessels demonstrate normal response to compression and augmentation. No soft tissue fluid collection. IMPRESSION: 1. Negative for deep venous thrombosis of the right leg. Findings were reportedly relayed by the robot technician at time of imaging. Dictated by: Dictated on workstation # [id number]
== END ==
LOC: RAD 15:37
PROVIDERS: ATTEND Nurse Practitioner Family
DX: M79.604 Pain in right leg (principal); M79.89 Other specified soft tissue disorders

== ENCOUNTER 2019-05-11 11:17 | Outpatient (RCR) | payer MEDICARE, MEDICAID ==
[2019-02-16 09:56] LABS: BASOPHILS # (AUTO) 0.1 10^3/uL (0.0-0.1); BASOPHILS % (AUTO) 1 % (0-10); EOSINOPHILS # (AUTO) 0.6 10^3/uL (0.0-0.3); EOSINOPHILS % (AUTO) 6 % (0-10); HEMATOCRIT 29 % (35-52); HEMOGLOBIN 8.9 G/DL (11.5-16.0); LYMPHOCYTES # (AUTO) 2.6 X 10^3 (1.0-4.0); LYMPHOCYTES % (AUTO) 28 % (12-44); MEAN CORPUSCULAR HEMOGLOBIN 27 PG (25-34); MEAN CORPUSCULAR HGB CONC 31 G/DL (32-36); MEAN CORPUSCULAR VOLUME 89 FL (80-99); MEAN PLATELET VOLUME 9.4 FL (7.4-10.4); MONOCYTES # (AUTO) 0.7 X 10^3 (0.0-1.0); MONOCYTES % (AUTO) 7 % (0-12); NEUTROPHILS # (AUTO) 5.5 X 10^3 (1.8-7.8); NEUTROPHILS % (AUTO) 58 % (42-75); PLATELET COUNT 157 10^3/uL (130-400); RED CELL DISTRIBUTION WIDTH 17.9 % (10.0-14.5); WHITE BLOOD COUNT 9.4 10^3/uL (4.3-11.0)
[2019-02-23 11:04] LABS: BASOPHILS % (AUTO) 0 % (0-10); EOSINOPHILS # (AUTO) 0.4 10^3/uL (0.0-0.3); EOSINOPHILS % (AUTO) 6 % (0-10); HEMATOCRIT 31 % (35-52); HEMOGLOBIN 9.4 G/DL (11.5-16.0); LYMPHOCYTES # (AUTO) 1.8 X 10^3 (1.0-4.0); LYMPHOCYTES % (AUTO) 25 % (12-44); MEAN CORPUSCULAR HEMOGLOBIN 27 PG (25-34); MEAN CORPUSCULAR HGB CONC 31 G/DL (32-36); MEAN CORPUSCULAR VOLUME 89 FL (80-99); MEAN PLATELET VOLUME 9.5 FL (7.4-10.4); MONOCYTES # (AUTO) 0.5 X 10^3 (0.0-1.0); MONOCYTES % (AUTO) 6 % (0-12); NEUTROPHILS # (AUTO) 4.4 X 10^3 (1.8-7.8); NEUTROPHILS % (AUTO) 62 % (42-75); PLATELET COUNT 162 10^3/uL (130-400); RED CELL DISTRIBUTION WIDTH 18.8 % (10.0-14.5)
[2019-02-23 11:25] LABS: ALBUMIN 4.5 GM/DL (3.2-4.5); BILIRUBIN,TOTAL 0.6 MG/DL (0.1-1.0); CALCIUM 10.3 MG/DL (8.5-10.1); CREATININE SERUM 1.46 MG/DL (0.60-1.30); POTASSIUM 4.2 MMOL/L (3.6-5.0); TOTAL PROTEIN 7.4 GM/DL (6.4-8.2)
[2019-03-02 13:58] LABS: BASOPHILS % (AUTO) 0 % (0-10); EOSINOPHILS # (AUTO) 0.3 10^3/uL (0.0-0.3); EOSINOPHILS % (AUTO) 4 % (0-10); HEMATOCRIT 30 % (35-52); HEMOGLOBIN 9.4 G/DL (11.5-16.0); LYMPHOCYTES # (AUTO) 2.2 X 10^3 (1.0-4.0); LYMPHOCYTES % (AUTO) 29 % (12-44); MEAN CORPUSCULAR HEMOGLOBIN 28 PG (25-34); MEAN CORPUSCULAR HGB CONC 31 G/DL (32-36); MEAN CORPUSCULAR VOLUME 89 FL (80-99); MEAN PLATELET VOLUME 10.1 FL (7.4-10.4); MONOCYTES # (AUTO) 0.5 X 10^3 (0.0-1.0); MONOCYTES % (AUTO) 7 % (0-12); NEUTROPHILS # (AUTO) 4.4 X 10^3 (1.8-7.8); NEUTROPHILS % (AUTO) 59 % (42-75); PLATELET COUNT 143 10^3/uL (130-400); RED CELL DISTRIBUTION WIDTH 18.5 % (10.0-14.5); WHITE BLOOD COUNT 7.5 10^3/uL (4.3-11.0)
[2019-03-09 10:57] LABS: BASOPHILS % (AUTO) 1 % (0-10); EOSINOPHILS # (AUTO) 0.3 10^3/uL (0.0-0.3); EOSINOPHILS % (AUTO) 3 % (0-10); HEMATOCRIT 34 % (35-52); HEMOGLOBIN 10.4 G/DL (11.5-16.0); LYMPHOCYTES # (AUTO) 2.1 X 10^3 (1.0-4.0); LYMPHOCYTES % (AUTO) 24 % (12-44); MEAN CORPUSCULAR HEMOGLOBIN 27 PG (25-34); MEAN CORPUSCULAR HGB CONC 31 G/DL (32-36); MEAN CORPUSCULAR VOLUME 88 FL (80-99); MEAN PLATELET VOLUME 9.9 FL (7.4-10.4); MONOCYTES # (AUTO) 0.6 X 10^3 (0.0-1.0); MONOCYTES % (AUTO) 8 % (0-12); NEUTROPHILS # (AUTO) 5.6 X 10^3 (1.8-7.8); NEUTROPHILS % (AUTO) 65 % (42-75); PLATELET COUNT 142 10^3/uL (130-400); RED CELL DISTRIBUTION WIDTH 18.1 % (10.0-14.5); WHITE BLOOD COUNT 8.6 10^3/uL (4.3-11.0)
[2019-03-16 14:57] LABS: BASOPHILS % (AUTO) 1 % (0-10); EOSINOPHILS # (AUTO) 0.3 10^3/uL (0.0-0.3); EOSINOPHILS % (AUTO) 4 % (0-10); HEMATOCRIT 33 % (35-52); HEMOGLOBIN 10.2 G/DL (11.5-16.0); LYMPHOCYTES # (AUTO) 1.9 X 10^3 (1.0-4.0); LYMPHOCYTES % (AUTO) 29 % (12-44); MEAN CORPUSCULAR HEMOGLOBIN 27 PG (25-34); MEAN CORPUSCULAR HGB CONC 31 G/DL (32-36); MEAN CORPUSCULAR VOLUME 88 FL (80-99); MEAN PLATELET VOLUME 10.3 FL (7.4-10.4); MONOCYTES # (AUTO) 0.5 X 10^3 (0.0-1.0); MONOCYTES % (AUTO) 7 % (0-12); NEUTROPHILS # (AUTO) 3.9 X 10^3 (1.8-7.8); NEUTROPHILS % (AUTO) 58 % (42-75); PLATELET COUNT 124 10^3/uL (130-400); RED CELL DISTRIBUTION WIDTH 17.2 % (10.0-14.5); WHITE BLOOD COUNT 6.6 10^3/uL (4.3-11.0)
[2019-03-23 13:18] LABS: BASOPHILS % (AUTO) 0 % (0-10); EOSINOPHILS # (AUTO) 0.3 10^3/uL (0.0-0.3); EOSINOPHILS % (AUTO) 3 % (0-10); HEMATOCRIT 36 % (35-52); LYMPHOCYTES # (AUTO) 2.4 X 10^3 (1.0-4.0); LYMPHOCYTES % (AUTO) 27 % (12-44); MEAN CORPUSCULAR HEMOGLOBIN 27 PG (25-34); MEAN CORPUSCULAR HGB CONC 31 G/DL (32-36); MEAN CORPUSCULAR VOLUME 87 FL (80-99); MEAN PLATELET VOLUME 10.2 FL (7.4-10.4); MONOCYTES # (AUTO) 0.7 X 10^3 (0.0-1.0); MONOCYTES % (AUTO) 8 % (0-12); NEUTROPHILS # (AUTO) 5.4 X 10^3 (1.8-7.8); NEUTROPHILS % (AUTO) 62 % (42-75); PLATELET COUNT 137 10^3/uL (130-400); RED CELL DISTRIBUTION WIDTH 17.1 % (10.0-14.5); WHITE BLOOD COUNT 8.8 10^3/uL (4.3-11.0)
[2019-03-30 12:25] LABS: BASOPHILS # (AUTO) 0.1 10^3/uL (0.0-0.1); BASOPHILS % (AUTO) 1 % (0-10); EOSINOPHILS # (AUTO) 0.3 10^3/uL (0.0-0.3); EOSINOPHILS % (AUTO) 3 % (0-10); HEMATOCRIT 36 % (35-52); HEMOGLOBIN 11.1 G/DL (11.5-16.0); LYMPHOCYTES # (AUTO) 2.1 X 10^3 (1.0-4.0); LYMPHOCYTES % (AUTO) 23 % (12-44); MEAN CORPUSCULAR HEMOGLOBIN 26 PG (25-34); MEAN CORPUSCULAR HGB CONC 31 G/DL (32-36); MEAN CORPUSCULAR VOLUME 85 FL (80-99); MONOCYTES # (AUTO) 0.6 X 10^3 (0.0-1.0); MONOCYTES % (AUTO) 7 % (0-12); NEUTROPHILS # (AUTO) 6.1 X 10^3 (1.8-7.8); NEUTROPHILS % (AUTO) 67 % (42-75); PLATELET COUNT 141 10^3/uL (130-400); RED CELL DISTRIBUTION WIDTH 16.3 % (10.0-14.5); WHITE BLOOD COUNT 9.1 10^3/uL (4.3-11.0)
[2019-04-06 10:13] LABS: BASOPHILS % (AUTO) 0 % (0-10); EOSINOPHILS # (AUTO) 0.3 10^3/uL (0.0-0.3); EOSINOPHILS % (AUTO) 3 % (0-10); HEMATOCRIT 36 % (35-52); HEMOGLOBIN 11.3 G/DL (11.5-16.0); LYMPHOCYTES # (AUTO) 2.2 X 10^3 (1.0-4.0); LYMPHOCYTES % (AUTO) 24 % (12-44); MEAN CORPUSCULAR HEMOGLOBIN 26 PG (25-34); MEAN CORPUSCULAR HGB CONC 31 G/DL (32-36); MEAN CORPUSCULAR VOLUME 83 FL (80-99); MEAN PLATELET VOLUME 10.3 FL (7.4-10.4); MONOCYTES # (AUTO) 0.7 X 10^3 (0.0-1.0); MONOCYTES % (AUTO) 8 % (0-12); NEUTROPHILS # (AUTO) 5.8 X 10^3 (1.8-7.8); NEUTROPHILS % (AUTO) 64 % (42-75); PLATELET COUNT 144 10^3/uL (130-400); RED CELL DISTRIBUTION WIDTH 16.5 % (10.0-14.5); WHITE BLOOD COUNT 9.1 10^3/uL (4.3-11.0)
[2019-04-13 12:58] LABS: BASOPHILS % (AUTO) 0 % (0-10); EOSINOPHILS # (AUTO) 0.2 10^3/uL (0.0-0.3); EOSINOPHILS % (AUTO) 3 % (0-10); HEMATOCRIT 33 % (35-52); HEMOGLOBIN 10.5 G/DL (11.5-16.0); LYMPHOCYTES % (AUTO) 27 % (12-44); MEAN CORPUSCULAR HEMOGLOBIN 26 PG (25-34); MEAN CORPUSCULAR HGB CONC 32 G/DL (32-36); MEAN CORPUSCULAR VOLUME 82 FL (80-99); MEAN PLATELET VOLUME 10.1 FL (7.4-10.4); MONOCYTES # (AUTO) 0.5 X 10^3 (0.0-1.0); MONOCYTES % (AUTO) 7 % (0-12); NEUTROPHILS # (AUTO) 4.6 X 10^3 (1.8-7.8); NEUTROPHILS % (AUTO) 62 % (42-75); PLATELET COUNT 144 10^3/uL (130-400); RED CELL DISTRIBUTION WIDTH 16.4 % (10.0-14.5); WHITE BLOOD COUNT 7.4 10^3/uL (4.3-11.0)
[2019-04-13 13:16] LABS: ALBUMIN 4.1 GM/DL (3.2-4.5); BILIRUBIN,TOTAL 0.4 MG/DL (0.1-1.0); CALCIUM 10.5 MG/DL (8.5-10.1); CREATININE SERUM 1.82 MG/DL (0.60-1.30); POTASSIUM 4.7 MMOL/L (3.6-5.0); TOTAL PROTEIN 6.8 GM/DL (6.4-8.2)
[2019-04-27 14:26] LABS: BASOPHILS % (AUTO) 0 % (0-10); EOSINOPHILS # (AUTO) 0.2 10^3/uL (0.0-0.3); EOSINOPHILS % (AUTO) 3 % (0-10); HEMATOCRIT 35 % (35-52); HEMOGLOBIN 11.2 G/DL (11.5-16.0); LYMPHOCYTES # (AUTO) 1.8 X 10^3 (1.0-4.0); LYMPHOCYTES % (AUTO) 21 % (12-44); MEAN CORPUSCULAR HEMOGLOBIN 26 PG (25-34); MEAN CORPUSCULAR HGB CONC 32 G/DL (32-36); MEAN CORPUSCULAR VOLUME 81 FL (80-99); MONOCYTES # (AUTO) 0.7 X 10^3 (0.0-1.0); MONOCYTES % (AUTO) 8 % (0-12); NEUTROPHILS # (AUTO) 5.9 X 10^3 (1.8-7.8); NEUTROPHILS % (AUTO) 68 % (42-75); PLATELET COUNT 133 10^3/uL (130-400); RED CELL DISTRIBUTION WIDTH 17.2 % (10.0-14.5); WHITE BLOOD COUNT 8.7 10^3/uL (4.3-11.0)
[2019-04-27 14:34] LABS: BILIRUBIN,URINE NEGATIVE (NEGATIVE); CLARITY,URINE VERY CLOUDY; COLOR,URINE YELLOW; GLUCOSE, URINE (UA) NEGATIVE (NEGATIVE); KETONES,URINE NEGATIVE (NEGATIVE); LEUKOCYTE ESTERASE ,URINE 3+ (NEGATIVE); NITRITE,URINE POSITIVE (NEGATIVE); PH,URINE 6 (5-9); PROTEIN,URINE 3+ (NEGATIVE)
[2019-04-27 14:44] LABS: BACTERIA,URINE LARGE /HPF; RBC,URINE 0-2 /HPF; SQUAMOUS EPITHELIAL CELL,UR RARE /HPF; WBC,URINE TNTC /HPF
[~2019-05-11 11:17] MED LIST changes: -ACET-77 PO; +ACET-78 PO; +ARANESP INJ SCH; +DARBEPOETIN INJ SCH; -METO-370 PO; -METO-387 PO; +MTP25TSR PO; +OMEP40CA27 PO; -TRAM50TA2 PO
[2019-05-11 11:27] LABS: BASOPHILS # (AUTO) 0.1 10^3/uL (0.0-0.1); BASOPHILS % (AUTO) 1 % (0-10); EOSINOPHILS # (AUTO) 0.3 10^3/uL (0.0-0.3); EOSINOPHILS % (AUTO) 2 % (0-10); HEMATOCRIT 36 % (35-52); HEMOGLOBIN 11.3 G/DL (11.5-16.0); LYMPHOCYTES # (AUTO) 2.9 X 10^3 (1.0-4.0); LYMPHOCYTES % (AUTO) 26 % (12-44); MEAN CORPUSCULAR HEMOGLOBIN 26 PG (25-34); MEAN CORPUSCULAR HGB CONC 31 G/DL (32-36); MEAN CORPUSCULAR VOLUME 82 FL (80-99); MEAN PLATELET VOLUME 10.3 FL (7.4-10.4); MONOCYTES # (AUTO) 0.8 X 10^3 (0.0-1.0); MONOCYTES % (AUTO) 7 % (0-12); NEUTROPHILS # (AUTO) 7.5 X 10^3 (1.8-7.8); NEUTROPHILS % (AUTO) 65 % (42-75); PLATELET COUNT 150 10^3/uL (130-400); RED CELL DISTRIBUTION WIDTH 17.9 % (10.0-14.5); WHITE BLOOD COUNT 11.5 10^3/uL (4.3-11.0)
== END 2019-05-17 | disposition home or self-care (01) ==
LOC: ONC 11:17
PROVIDERS: ATTEND Internal Medicine Hematology & Oncology
DX: N18.4 Chronic kidney disease, stage 4 (severe) (principal); D63.1 Anemia in chronic kidney disease; E11.22 Type 2 diabetes mellitus with diabetic chronic kidney disease; I12.9 Hypertensive chronic kidney disease with stage 1 through stage 4 chronic kidney disease, or unspecified chronic kidney disease; D50.9 Iron deficiency anemia, unspecified; I25.10 Atherosclerotic heart disease of native coronary artery without angina pectoris; J44.9 Chronic obstructive pulmonary disease, unspecified; E03.9 Hypothyroidism, unspecified; R91.1 Solitary pulmonary nodule; E78.2 Mixed hyperlipidemia; G47.33 Obstructive sleep apnea (adult) (pediatric); I27.20 Pulmonary hypertension, unspecified; I73.9 Peripheral vascular disease, unspecified; M19.91 Primary osteoarthritis, unspecified site; Z79.82 Long term (current) use of aspirin; Z79.4 Long term (current) use of insulin; Z79.899 Other long term (current) drug therapy
CPT/HCPCS: 36415; 80053; 81000; 82306; 82728; 85025; 87077; 87088; 87186; 96372

== ENCOUNTER 2019-08-03 10:33 | Outpatient (RCR) | payer MEDICARE, MEDICAID ==
[2019-05-25 12:01] LABS: BASOPHILS % (AUTO) 0 % (0-10); EOSINOPHILS # (AUTO) 0.3 10^3/uL (0.0-0.3); EOSINOPHILS % (AUTO) 4 % (0-10); HEMATOCRIT 35 % (35-52); LYMPHOCYTES # (AUTO) 2.3 X 10^3 (1.0-4.0); LYMPHOCYTES % (AUTO) 29 % (12-44); MEAN CORPUSCULAR HEMOGLOBIN 26 PG (25-34); MEAN CORPUSCULAR HGB CONC 31 G/DL (32-36); MEAN CORPUSCULAR VOLUME 82 FL (80-99); MEAN PLATELET VOLUME 10.3 FL (7.4-10.4); MONOCYTES # (AUTO) 0.6 X 10^3 (0.0-1.0); MONOCYTES % (AUTO) 7 % (0-12); NEUTROPHILS # (AUTO) 4.7 X 10^3 (1.8-7.8); NEUTROPHILS % (AUTO) 60 % (42-75); PLATELET COUNT 138 10^3/uL (130-400); RED CELL DISTRIBUTION WIDTH 18.4 % (10.0-14.5); WHITE BLOOD COUNT 7.9 10^3/uL (4.3-11.0)
[2019-06-08 13:22] LABS: BASOPHILS # (AUTO) 0.1 10^3/uL (0.0-0.1); BASOPHILS % (AUTO) 1 % (0-10); EOSINOPHILS # (AUTO) 0.3 10^3/uL (0.0-0.3); EOSINOPHILS % (AUTO) 3 % (0-10); HEMATOCRIT 38 % (35-52); HEMOGLOBIN 11.9 G/DL (11.5-16.0); LYMPHOCYTES # (AUTO) 3.4 X 10^3 (1.0-4.0); LYMPHOCYTES % (AUTO) 33 % (12-44); MEAN CORPUSCULAR HEMOGLOBIN 26 PG (25-34); MEAN CORPUSCULAR HGB CONC 32 G/DL (32-36); MEAN CORPUSCULAR VOLUME 82 FL (80-99); MEAN PLATELET VOLUME 10.4 FL (7.4-10.4); MONOCYTES # (AUTO) 0.6 X 10^3 (0.0-1.0); MONOCYTES % (AUTO) 6 % (0-12); NEUTROPHILS # (AUTO) 6.1 X 10^3 (1.8-7.8); NEUTROPHILS % (AUTO) 58 % (42-75); PLATELET COUNT 166 10^3/uL (130-400); WHITE BLOOD COUNT 10.5 10^3/uL (4.3-11.0)
[2019-06-08 13:44] LABS: ALANINE AMINOTRANSFERASE 23 U/L (0-55); ALBUMIN 4.6 GM/DL (3.2-4.5); ALKALINE PHOSPHATASE 244 U/L (40-136); BILIRUBIN,TOTAL 0.5 MG/DL (0.1-1.0); BUN/CREATININE RATIO 14; CALCIUM 10.7 MG/DL (8.5-10.1); CARBON DIOXIDE 20 MMOL/L (21-32); CHLORIDE 107 MMOL/L (98-107); GFR ESTIMATED 31; GLUCOSE 90 MG/DL (70-105); POTASSIUM 4.5 MMOL/L (3.6-5.0); SODIUM 137 MMOL/L (135-145); TOTAL PROTEIN 7.9 GM/DL (6.4-8.2)
[2019-07-06 12:43] LABS: BASOPHILS # (AUTO) 0.1 10^3/uL (0.0-0.1); BASOPHILS % (AUTO) 1 % (0-10); EOSINOPHILS # (AUTO) 0.4 10^3/uL (0.0-0.3); EOSINOPHILS % (AUTO) 4 % (0-10); HEMATOCRIT 35 % (35-52); HEMOGLOBIN 11.1 G/DL (11.5-16.0); LYMPHOCYTES # (AUTO) 3.4 X 10^3 (1.0-4.0); LYMPHOCYTES % (AUTO) 31 % (12-44); MEAN CORPUSCULAR HEMOGLOBIN 26 PG (25-34); MEAN CORPUSCULAR HGB CONC 31 G/DL (32-36); MEAN CORPUSCULAR VOLUME 83 FL (80-99); MEAN PLATELET VOLUME 10.1 FL (7.4-10.4); MONOCYTES # (AUTO) 0.7 X 10^3 (0.0-1.0); MONOCYTES % (AUTO) 7 % (0-12); NEUTROPHILS # (AUTO) 6.1 X 10^3 (1.8-7.8); NEUTROPHILS % (AUTO) 57 % (42-75); PLATELET COUNT 166 10^3/uL (130-400); RED CELL DISTRIBUTION WIDTH 18.7 % (10.0-14.5); WHITE BLOOD COUNT 10.7 10^3/uL (4.3-11.0)
[2019-08-03 10:59] LABS: BASOPHILS # (AUTO) 0.1 10^3/uL (0.0-0.1); BASOPHILS % (AUTO) 0 % (0-10); EOSINOPHILS # (AUTO) 0.4 10^3/uL (0.0-0.3); EOSINOPHILS % (AUTO) 3 % (0-10); HEMATOCRIT 35 % (35-52); HEMOGLOBIN 11.4 G/DL (11.5-16.0); LYMPHOCYTES # (AUTO) 4.2 X 10^3 (1.0-4.0); LYMPHOCYTES % (AUTO) 38 % (12-44); MEAN CORPUSCULAR HEMOGLOBIN 28 PG (25-34); MEAN CORPUSCULAR HGB CONC 32 G/DL (32-36); MEAN CORPUSCULAR VOLUME 85 FL (80-99); MONOCYTES # (AUTO) 0.8 X 10^3 (0.0-1.0); MONOCYTES % (AUTO) 7 % (0-12); NEUTROPHILS # (AUTO) 5.7 X 10^3 (1.8-7.8); NEUTROPHILS % (AUTO) 51 % (42-75); PLATELET COUNT 152 10^3/uL (130-400); RED CELL DISTRIBUTION WIDTH 17.2 % (10.0-14.5); WHITE BLOOD COUNT 11.1 10^3/uL (4.3-11.0)
[2019-08-03 11:21] LABS: ALBUMIN 4.4 GM/DL (3.2-4.5); BILIRUBIN,TOTAL 0.6 MG/DL (0.1-1.0); CALCIUM 9.9 MG/DL (8.5-10.1); CREATININE SERUM 1.46 MG/DL (0.60-1.30); POTASSIUM 3.7 MMOL/L (3.6-5.0); TOTAL PROTEIN 7.2 GM/DL (6.4-8.2)
== END 2019-08-23 | disposition home or self-care (01) ==
LOC: ONC 10:33
PROVIDERS: ATTEND Internal Medicine Hematology & Oncology
DX: E11.22 Type 2 diabetes mellitus with diabetic chronic kidney disease (principal); D63.1 Anemia in chronic kidney disease; N18.4 Chronic kidney disease, stage 4 (severe); I12.9 Hypertensive chronic kidney disease with stage 1 through stage 4 chronic kidney disease, or unspecified chronic kidney disease; D50.9 Iron deficiency anemia, unspecified; I25.10 Atherosclerotic heart disease of native coronary artery without angina pectoris; J44.9 Chronic obstructive pulmonary disease, unspecified; E03.9 Hypothyroidism, unspecified; R91.1 Solitary pulmonary nodule; E78.2 Mixed hyperlipidemia; G47.33 Obstructive sleep apnea (adult) (pediatric); I27.20 Pulmonary hypertension, unspecified; I73.9 Peripheral vascular disease, unspecified; M19.91 Primary osteoarthritis, unspecified site; Z79.82 Long term (current) use of aspirin; Z79.4 Long term (current) use of insulin; Z79.899 Other long term (current) drug therapy
CPT/HCPCS: 36415; 80053; 82728; 85025; 99213

== ENCOUNTER → 2019-09-10 | Outpatient (CLI) | payer MEDICARE, MEDICAID ==
[~2019-09-10] MED LIST changes: -ARANESP INJ SCH; -DARBEPOETIN INJ SCH
--- NOTE | 2019-09-10 10:50 | Diagnostic Imaging Report ---
EXAMINATION: Chest 2 view HISTORY: Pneumonia. COMPARISON: Chest radiograph on 04/05/2019. FINDINGS: The lung volumes are normal. No focal consolidation is seen. Small amount of opacities are seen in the right lung base. No large pleural effusion or pneumothorax is seen. The cardiomediastinal silhouette is normal in size and contour. There is calcified aortic atherosclerotic plaque. No acute osseous abnormality is seen. IMPRESSION: 1. Small amount of opacities in the right lung base, which may represent atelectasis or infection. No focal consolidations. Dictated by: Dictated on workstation # [id number]
== END ==
LOC: RAD 10:21
PROVIDERS: ATTEND Nurse Practitioner
DX: J18.9 Pneumonia, unspecified organism (principal)
CPT/HCPCS: 71046

== ENCOUNTER → 2019-09-15 | Outpatient (CLI) | payer MEDICARE, MEDICAID ==
--- NOTE | 2019-09-15 15:34 | Diagnostic Imaging Report ---
INDICATION: Pneumonia. PA and lateral views of the chest are obtained. Comparison is made study of 09/10/2019. Overall heart size and pulmonary vascularity remain within normal limits. There are prominent interstitial markings throughout both lungs similar to previous study. There is mild blunting of the costophrenic sulci which could be due to mild pleural thickening. There is no evidence of pneumothorax. Surgical changes are noted in the left neck with stenting in the left upper mediastinum. IMPRESSION: Prominent interstitial markings may represent atelectasis or scarring. There may be small amount of pleural fluid or thickening as well. Otherwise no acute abnormality or adverse changes seen. Dictated by: Dictated on workstation # [id number]
== END ==
LOC: RAD 11:18
PROVIDERS: ATTEND Nurse Practitioner
DX: J18.9 Pneumonia, unspecified organism (principal)
CPT/HCPCS: 71046

== ENCOUNTER 2019-11-09 11:36 | Outpatient (RCR) | payer MEDICARE, MEDICAID ==
[2019-08-31 11:28] LABS: BASOPHILS % (AUTO) 0 % (0-10); EOSINOPHILS # (AUTO) 0.3 10^3/uL (0.0-0.3); EOSINOPHILS % (AUTO) 4 % (0-10); HEMATOCRIT 35 % (35-52); HEMOGLOBIN 11.1 G/DL (11.5-16.0); LYMPHOCYTES # (AUTO) 2.9 X 10^3 (1.0-4.0); LYMPHOCYTES % (AUTO) 32 % (12-44); MEAN CORPUSCULAR HEMOGLOBIN 28 PG (25-34); MEAN CORPUSCULAR HGB CONC 32 G/DL (32-36); MEAN CORPUSCULAR VOLUME 86 FL (80-99); MEAN PLATELET VOLUME 10.1 FL (7.4-10.4); MONOCYTES # (AUTO) 0.7 X 10^3 (0.0-1.0); MONOCYTES % (AUTO) 8 % (0-12); NEUTROPHILS # (AUTO) 5.2 X 10^3 (1.8-7.8); NEUTROPHILS % (AUTO) 57 % (42-75); PLATELET COUNT 139 10^3/uL (130-400); RED CELL DISTRIBUTION WIDTH 16.4 % (10.0-14.5); WHITE BLOOD COUNT 9.1 10^3/uL (4.3-11.0)
[2019-09-28 11:08] LABS: BASOPHILS % (AUTO) 0 % (0-10); EOSINOPHILS # (AUTO) 0.4 10^3/uL (0.0-0.3); EOSINOPHILS % (AUTO) 4 % (0-10); HEMATOCRIT 34 % (35-52); HEMOGLOBIN 10.9 G/DL (11.5-16.0); LYMPHOCYTES # (AUTO) 3.1 X 10^3 (1.0-4.0); LYMPHOCYTES % (AUTO) 31 % (12-44); MEAN CORPUSCULAR HEMOGLOBIN 27 PG (25-34); MEAN CORPUSCULAR HGB CONC 32 G/DL (32-36); MEAN CORPUSCULAR VOLUME 85 FL (80-99); MEAN PLATELET VOLUME 9.7 FL (7.4-10.4); MONOCYTES # (AUTO) 0.7 X 10^3 (0.0-1.0); MONOCYTES % (AUTO) 7 % (0-12); NEUTROPHILS % (AUTO) 59 % (42-75); PLATELET COUNT 134 10^3/uL (130-400); RED CELL DISTRIBUTION WIDTH 16.2 % (10.0-14.5); WHITE BLOOD COUNT 10.2 10^3/uL (4.3-11.0)
[2019-09-28 11:27] LABS: BILIRUBIN,TOTAL 0.5 MG/DL (0.1-1.0); CREATININE SERUM 1.45 MG/DL (0.60-1.30); POTASSIUM 4.4 MMOL/L (3.6-5.0); TOTAL PROTEIN 6.9 GM/DL (6.4-8.2)
[2019-10-19 13:48] LABS: BASOPHILS # (AUTO) 0.1 10^3/uL (0.0-0.1); BASOPHILS % (AUTO) 1 % (0-10); EOSINOPHILS # (AUTO) 0.3 10^3/uL (0.0-0.3); EOSINOPHILS % (AUTO) 4 % (0-10); HEMATOCRIT 36 % (35-52); HEMOGLOBIN 11.2 G/DL (11.5-16.0); LYMPHOCYTES % (AUTO) 38 % (12-44); MEAN CORPUSCULAR HEMOGLOBIN 27 PG (25-34); MEAN CORPUSCULAR HGB CONC 32 G/DL (32-36); MEAN CORPUSCULAR VOLUME 86 FL (80-99); MEAN PLATELET VOLUME 10.6 FL (7.4-10.4); MONOCYTES # (AUTO) 0.6 X 10^3 (0.0-1.0); MONOCYTES % (AUTO) 8 % (0-12); NEUTROPHILS # (AUTO) 4.1 X 10^3 (1.8-7.8); NEUTROPHILS % (AUTO) 50 % (42-75); PLATELET COUNT 130 10^3/uL (130-400); RED CELL DISTRIBUTION WIDTH 16.4 % (10.0-14.5); WHITE BLOOD COUNT 8.1 10^3/uL (4.3-11.0)
[~2019-11-09 11:36] MED LIST changes: -MECL-106 PO; +MECL-149 PO; -TRAZ-190 PO; +TRAZ-227 PO
[2019-11-09 11:49] LABS: BASOPHILS % (AUTO) 1 % (0-10); EOSINOPHILS # (AUTO) 0.3 10^3/uL (0.0-0.3); EOSINOPHILS % (AUTO) 4 % (0-10); HEMATOCRIT 34 % (35-52); LYMPHOCYTES # (AUTO) 2.2 X 10^3 (1.0-4.0); LYMPHOCYTES % (AUTO) 29 % (12-44); MEAN CORPUSCULAR HEMOGLOBIN 27 PG (25-34); MEAN CORPUSCULAR HGB CONC 32 G/DL (32-36); MEAN CORPUSCULAR VOLUME 85 FL (80-99); MEAN PLATELET VOLUME 9.9 FL (7.4-10.4); MONOCYTES # (AUTO) 0.4 X 10^3 (0.0-1.0); MONOCYTES % (AUTO) 5 % (0-12); NEUTROPHILS # (AUTO) 4.7 X 10^3 (1.8-7.8); NEUTROPHILS % (AUTO) 62 % (42-75); PLATELET COUNT 123 10^3/uL (130-400); WHITE BLOOD COUNT 7.6 10^3/uL (4.3-11.0)
== END 2019-11-29 | disposition home or self-care (01) ==
LOC: ONC 11:36
PROVIDERS: ATTEND Internal Medicine Hematology & Oncology
DX: D50.9 Iron deficiency anemia, unspecified (principal)
CPT/HCPCS: 80053; 82728; 85025

== ENCOUNTER 2019-12-30 08:40 | Outpatient (RCR) | payer MEDICARE, MEDICAID ==
[~2019-12-30] VITALS: Ht 165.1 cm; Wt 80.9 kg
[~2019-12-30 08:40] MED LIST changes: +INSU100V16 SC
[2019-12-31] MEDS ORDERED: CHOL4PAC16 PO (14:41)
[2019-12-31] MEDS ORDERED: MIRA25TA PO (14:41)
[2019-12-31] MEDS ORDERED: TR1C15 TP (14:41)
[2019-12-31] MEDS ORDERED: AMIT25TA9 PO (14:41)
[2019-12-31] MEDS ORDERED: ASPI325T32 PO (14:41)
== END 2019-12-30 14:06 | disposition home or self-care (01) ==
LOC: PREOP 08:40
PROVIDERS: ATTEND Surgery
DX: Z01.812 Encounter for preprocedural laboratory examination (principal); Z11.59 Encounter for screening for other viral diseases; K92.1 Melena; R19.7 Diarrhea, unspecified
CPT/HCPCS: 87635

== ENCOUNTER 2019-12-30 19:18 | Observation (INO) | payer MEDICARE, MEDICAID ==
[~2019-12-30] VITALS: Ht 170 cm; Wt 78.6 kg
[2019-12-30] MEDS ORDERED: NS IV 500 ML 500 ML IV SCH (19:45)
[2019-12-30 19:55] LABS: BASOPHILS % (AUTO) 0 % (0-10); EOSINOPHILS % (AUTO) 0 % (0-10); HEMATOCRIT 29 % (35-52); HEMOGLOBIN 9.5 G/DL (11.5-16.0); LYMPHOCYTES # (AUTO) 1.8 X 10^3 (1.0-4.0); LYMPHOCYTES % (AUTO) 14 % (12-44); MEAN CORPUSCULAR HEMOGLOBIN 27 PG (25-34); MEAN CORPUSCULAR HGB CONC 33 G/DL (32-36); MEAN CORPUSCULAR VOLUME 83 FL (80-99); MONOCYTES # (AUTO) 0.9 X 10^3 (0.0-1.0); MONOCYTES % (AUTO) 7 % (0-12); NEUTROPHILS % (AUTO) 79 % (42-75); PLATELET COUNT 124 10^3/uL (130-400); RED CELL DISTRIBUTION WIDTH 16.8 % (10.0-14.5); WHITE BLOOD COUNT 12.7 10^3/uL (4.3-11.0)
--- NOTE | 2019-12-30 19:55 | ED General ---
General Chief Complaint: General Problems/Pain Stated Complaint: DIARRHEA Nursing Triage Note: Pt c/o diarrhea, seen at PCP for same earlier and given 2 meds which pt denies taking yet. Nursing Sepsis Screen: No Definite Risk Source of Information: Patient Exam Limitations: No Limitations History of Present Illness Date Seen by Provider: Dec 30, 2019 Time Seen by Provider: 19:49 Initial Comments To ER with reports of persistent diarrhea for about 7 weeks without known cause. Her stool cultures including C. difficile are negative. She denies abdominal pain now or at any time, denies nausea or vomiting or fevers. She has tried Questran without improvement in symptoms but has not taken any other medications. She was just prescribed Imodium earlier today but hasn't taken any of these yet. She is scheduled for colonoscopy with Dr. Porter next week. She had outpatient labs done today showing an acute on chronic kidney dysfunction, her creatinine was 2.4, most recent labs done outpatient April 05, 2019 had creatinine of 1.3. Timing/Duration: Other Severity: Moderate Associated Systoms: Denies Symptoms Allergies and Home Medications Allergies Coded Allergies: Penicillins (Verified Allergy, Unknown, Pt has received Ceftriaxone in the past, 05/13/18) influenza virus vaccine, specific (Verified Adverse Reaction, Unknown, Not allergic just won't take Flu vaccine, 05/13/18) Home Medications Acetaminophen 500 Mg Tablet, 500 MG PO Q6H PRN for PAIN-MILD, (Reported) Albuterol Sulfate 18 Gm Hfa.aer.ad, 2 PUFF INH Q4H PRN for SHORTNESS OF BREATH, (Reported) Aspirin 81 Mg Tablet.dr, 81 MG PO DAILY, (Reported) Atorvastatin Calcium 40 Mg Tablet, 40 MG PO HS, (Reported) Citalopram Hydrobromide 20 Mg Tablet, 20 MG PO HS, (Reported) Cyclosporine 1 Each Droperette, 1 DROP OU BID, (Reported) Fluticasone Propionate 16 Gm [place].susp, 1 SPRAY NS DAILY, (Reported) Fluticasone/Salmeterol 1 Each Blst.w.dev, 1 PUFF IH BID, (Reported) Folic Acid 1 Mg Tablet, 1 MG PO DAILY, (Reported) Furosemide 40 Mg Tablet, 40 MG PO DAILY, (Reported) Insulin Aspart 100 Unit/1 Ml Susp, 10 UNIT SQ 0800, (Reported) Insulin Aspart 100 Unit/1 Ml Susp, 2 UNIT SQ 1200, (Reported) Insulin Aspart 100 Unit/1 Ml Susp, 6 UNIT SQ 1700, (Reported) Insulin Aspart 100 Unit/1 Ml Susp, SQ AC, (Reported) USES SLIDING SCALE IN ADDITION TO HER SCHEDULED INSULIN DOSE: 150-200=2 UNITS 201-250=4 UNITS 251-300=6 UNITS 301-350=8 UNITS 351-400=10 UNITS OVER 400=12 UNITS Insulin Degludec 100 Unit/1 Ml Insuln.pen, 35 UNIT SQ HS, (Reported) Levothyroxine Sodium 125 Mcg Tablet, 125 MCG PO DAILY, (Reported) Loratadine 10 Mg Tablet, 10 MG PO DAILY, (Reported) Meclizine HCl 25 Mg Tablet, 25 MG PO DAILY, (Reported) Metoprolol Succinate 25 Mg Tab.er.24h, 25 MG PO BID, (Reported) Multivitamin 1 Each Tablet, 1 TAB PO DAILY, (Reported) Niacin 1,000 Mg Tab.er.24h, 1,000 MG PO HS, (Reported) Olmesartan Medoxomil 20 Mg Tablet, 10 MG PO DAILY, (Reported) TAKES 1/2 (20MG) TABLET [place] 3 Polyunsat Fatty Acids 1,000 Mg Cap, 3,000 MG PO DAILY, (Reported) Omeprazole 40 Mg Capsule.dr, 40 MG PO DAILY, (Reported) Pregabalin 100 Mg Capsule, 100 MG PO 0800,1500,2100, (Reported) Sertraline HCl 50 Mg Tablet, 50 MG PO DAILY, (Reported) Solifenacin Succinate 5 Mg Tablet, 5 MG PO DAILY, (Reported) Tiotropium [place] 1 Inh Aerp, 1 CAP IH HS, (Reported) Trazodone HCl 100 Mg Tablet, 100 MG PO HS, (Reported) Patient Home Medication List Home Medication List Reviewed: Yes Review of Systems Review of Systems Constitutional: see HPI EENTM: see HPI Respiratory: no symptoms reported Cardiovascular: no symptoms reported Gastrointestinal: diarrhea Genitourinary: no symptoms reported Musculoskeletal: no symptoms reported Skin: no symptoms reported Psychiatric/Neurological: No Symptoms Reported Hematologic/Lymphatic: No Symptoms Reported Past Rpoaajp-Googyn-Zupcdg Hx Patient Social History Alcohol Use: Denies Use Recreational Drug Use: No 2nd Hand Smoke Exposure: No Recent Foreign Travel: No Contact w/Someone Who Travel: No Recent Infectious Disease Expo: No Recent Hopitalizations: No Physical Abuse: No Sexual Abuse: No Mistreated: No Fear: No Immunizations Up To Date Tetanus Booster (TDap): Unknown Date of Pneumonia Vaccine: Aug 28, 2012 Seasonal Allergies Seasonal Allergies: Yes Past Medical History Surgeries: Yes (CATARACTS, BILAT KNEE REPLACEMENT,BKA, R arm fx) Appendectomy, Coronary Stent, Eye Surgery, Hysterectomy, Joint Replacement, Orthopedic, Tonsillectomy Respiratory: Yes Sleep Apnea Currently Using CPAP: Yes (with oxygen) Currently Using BIPAP: No Cardiac: Yes (STENTS) Coronary Artery Disease, High Cholesterol, Hypertension Neurological: Yes Dementia 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 Disorders: No Female 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 Disorders: 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 Sexually Transmitted Disease: No HIV/AIDS: No Genitourinary: Yes Kidney Infection, Bladder Infection, Renal Failure, UTI-Chronic Gastrointestinal: Yes Gastroesophageal Reflux, Chronic Constipation, Polyps, Hiatal Hernia Musculoskeletal: Yes Amputee, Arthritis Endocrine: Yes Diabetes, Insulin dep, Hypothyroidsim HEENT: Yes (GLASSES) Cataract Loss of Vision: Bilateral Hearing Impairment: Denies Cancer: No Psychosocial: Yes Anxiety, Depression Integumentary: No Recent Skin Changes Blood Disorders: Yes (ANEMIA) Adverse Reaction/Blood Tranf: No Family Medical History Arthritis Cardiovascular disease Diabetes mellitus Hypertension Diabetes, Hypertension Physical Exam Vital Signs Vital Signs - First Documented 12/30/19 19:29 Temp 36.8 Pulse 93 Resp 18 B/P (MAP) 144/66 (92) Pulse Ox 96 O2 Delivery Room Air Capillary Refill : Less Than 3 Seconds Height, Weight, BMI Height: 5'7.00" Weight: 182lbs. 0oz. 82.551570ez; 27.00 BMI Method:Stated General Appearance: No Apparent Distress, WD/WN Eyes: Bilateral Eye Normal Inspection, Bilateral Eye PERRL, Bilateral Eye EOMI HEENT: PERRL/EOMI Neck: Full Range of Motion, Normal Inspection Respiratory: No Accessory Muscle Use, No Respiratory Distress Gastrointestinal: Normal Bowel Sounds, Non Tender, Soft Extremity: Normal Capillary Refill, Normal Inspection Neurologic/Psychiatric: Alert, Oriented x3 Skin: Normal Color, Warm/Dry Progress/Results/Core Measures Suspected Sepsis Recent Fever Within 48 Hours: No Infection Criteria Present: None New/Unexplained Altered Menta: No Sepsis Screen: No Definite Risk SIRS Temperature: Pulse: 93 Respiratory Rate: 18 Laboratory Tests 12/30/19 19:47: White Blood Count 12.7H Blood Pressure 144 /66 Mean: 92 Laboratory Tests 12/30/19 19:47: Creatinine 2.41H, Platelet Count 124L, Total Bilirubin 0.7 Results/Orders Lab Results Laboratory Tests Test 12/30/19 19:47 Range/Units White Blood Count 12.7 H 4.3-11.0 10^3/uL Red Blood Count 3.47 L 4.35-5.85 10^6/uL Hemoglobin 9.5 L 11.5-16.0 G/DL Hematocrit 29 L 35-52 % Mean Corpuscular Volume 83 80-99 FL Mean Corpuscular Hemoglobin 27 25-34 PG Mean Corpuscular Hemoglobin Concent 33 32-36 G/DL Red Cell Distribution Width 16.8 H 10.0-14.5 % Platelet Count 124 L 130-400 10^3/uL Mean Platelet Volume 10.0 7.4-10.4 FL Neutrophils (%) (Auto) 79 H 42-75 % Lymphocytes (%) (Auto) 14 12-44 % Monocytes (%) (Auto) 7 0-12 % Eosinophils (%) (Auto) 0 0-10 % Basophils (%) (Auto) 0 0-10 % Neutrophils # (Auto) 10.0 H 1.8-7.8 X 10^3 Lymphocytes # (Auto) 1.8 1.0-4.0 X 10^3 Monocytes # (Auto) 0.9 0.0-1.0 X 10^3 Eosinophils # (Auto) 0.0 0.0-0.3 10^3/uL Basophils # (Auto) 0.0 0.0-0.1 10^3/uL Sodium Level 132 L 135-145 MMOL/L Potassium Level 4.1 3.6-5.0 MMOL/L Chloride Level 109 H 98-107 MMOL/L Carbon Dioxide Level 12 L 21-32 MMOL/L Anion Gap 11 5-14 MMOL/L Blood Urea Nitrogen 27 H 7-18 MG/DL Creatinine 2.41 H 0.60-1.30 MG/DL Estimat Glomerular Filtration Rate 19 BUN/Creatinine Ratio 11 Glucose Level 182 H 70-105 MG/DL Calcium Level 9.2 8.5-10.1 MG/DL Corrected Calcium 9.4 8.5-10.1 MG/DL Total Bilirubin 0.7 0.1-1.0 MG/DL Aspartate Amino Transf (AST/SGOT) 34 5-34 U/L Alanine Aminotransferase (ALT/SGPT) 25 0-55 U/L Alkaline Phosphatase 127 40-136 U/L Total Protein 6.8 6.4-8.2 GM/DL Albumin 3.8 3.2-4.5 GM/DL My Orders Orders - DIETER LOVE APRN Cbc With Automated Diff (12/30/19 19:45) Comprehensive Metabolic Panel (12/30/19 19:45) Ed Iv/Invasive Line Start (12/30/19 19:45) Ns Iv 500 Ml (Sodium Chloride 0.9%) (12/30/19 19:45) Ua Culture If Indicated (12/30/19 20:46) Vital Signs/I&O 12/30/19 12/30/19 19:29 20:43 Temp 36.8 Pulse 93 85 Resp 18 18 B/P (MAP) 144/66 (92) 109/59 Pulse Ox 96 97 O2 Delivery Room Air Room Air Capillary Refill : Less Than 3 Seconds Blood Pressure Mean: 92 Departure Communication (Admissions) Time/Spoke to Admitting Phy: 20:[address] Bautista, will admit, hydrate, continue the Imodium, repeat stool studies, consult German in the morning and I updated the patient's daughter Kit who states that the patient had a brief episode of confusion earlier. She has had that symptom before with a urinary tract infection and she is concerned she may have this again. Impression Primary Impression: Acute renal failure Qualified Codes: N17.9 - Acute kidney failure, unspecified Additional Impressions: Chronic diarrhea NAGMA Disposition: ADMITTED INPATIENT Condition: Stable Admissions Decision to Admit Reason: Admit from ER (General) Decision to Admit/Date: Dec 30, 2019 Time/Decision to Admit Time: 20:23 Departure-Patient Inst. Referrals: FELICITA CEDEÑO MD (PCP/Family) Primary Care Physician DIETER LOVE APRN Dec 30, 2019 19:55
[2019-12-30 20:04] LABS: ALBUMIN 3.8 GM/DL (3.2-4.5); POTASSIUM 4.1 MMOL/L (3.6-5.0)
[2019-12-30 20:05] LABS: CALCIUM 9.2 MG/DL (8.5-10.1)
[2019-12-30 20:07] LABS: TOTAL PROTEIN 6.8 GM/DL (6.4-8.2)
[2019-12-30 20:08] LABS: BILIRUBIN,TOTAL 0.7 MG/DL (0.1-1.0)
[2019-12-30 20:10] LABS: CREATININE SERUM 2.41 MG/DL (0.60-1.30)
--- NOTE | 2019-12-30 21:20 | NUR ---
CARLOS SERRA admitted to room 412-1, with an admitting diagnosis of RANDOLPH and Diarrhea, on 12/30/19 from ER via wc accompanied by ER staff. CARLOS SERRA introduced to surroundings, call light, bed controls, phone, TV, temperature control, lights, meal times, smoking policy, visitor policy, side rail policy, bathrooms and showers. Patient Rights given to patient in the handbook. CARLOS SERRA verbalizes understanding that [facility] is not responsible for the loss or damage to any personal effects or valuables that are kept in the patients posession during their hospitalization. The following Patient Care Plans were discussed with the pt: Discharge Planning, electrolyte imbalance, and potential for injury. CARLOS SERRA verbalizes understanding of Interdisciplinary Patient Education. Patient was informed about the Rapid Response Team and its purpose.
[2019-12-30 21:26] VITALS: BP 149/63
[2019-12-30] MEDS ORDERED: CATHETER FLUSH 10 ML SYR IV PRN (22:00)
--- NOTE | 2019-12-30 22:35 | NUR ---
Dr Bautista notified of pt request for her regular bedtime meds. and home meds and dvt score. orders received.
[2019-12-30] MEDS ORDERED: inSUlin ASPART (NovoLOG) 1 UNIT/0.01 ML (CHARGE PER UNIT) SC SCH (22:45)
[2019-12-30] MEDS: ACETAMINOPHEN 500 MG TAB (TYLENOL) PO PRN (23:50)
[2019-12-30] MEDS: LOPERAMIDE 2 MG (IMODIUM) TABLET PO SCH (23:50)
[2019-12-30] MEDS: CATHETER FLUSH 10 ML SYR IV SCH (23:51)
[2019-12-30] MEDS: NS IV 1000 ML 1,000 ML IV SCH (23:51)
[2019-12-30] MEDS: AMITRIPTYLINE 25 MG (ELAVIL) TAB PO SCH (23:51)
[2019-12-31 01:00] VITALS: BP 113/52
[2019-12-31 03:51] VITALS: BP 118/63
[2019-12-31] MEDS: CATHETER FLUSH 10 ML SYR IV SCH ×3 (06:16→20:26)
[2019-12-31 06:20] LABS: CLARITY,URINE CLOUDY; COLOR,URINE STRAW; GLUCOSE, URINE (UA) NEGATIVE (NEGATIVE); PROTEIN,URINE TRACE (NEGATIVE)
[2019-12-31 06:21] LABS: BILIRUBIN,URINE NEGATIVE (NEGATIVE); KETONES,URINE NEGATIVE (NEGATIVE); LEUKOCYTE ESTERASE ,URINE 2+ (NEGATIVE); NITRITE,URINE POSITIVE (NEGATIVE)
[2019-12-31 06:23] LABS: WBC,URINE TNTC /HPF
[2019-12-31 06:24] LABS: BACTERIA,URINE LARGE /HPF; SQUAMOUS EPITHELIAL CELL,UR RARE /HPF
[2019-12-31] MEDS: inSUlin ASPART (NovoLOG) 1 UNIT/0.01 ML (CHARGE PER UNIT) SC SCH ×4 (07:00→20:52)
[2019-12-31] MEDS: LEVOTHYROXINE 125 MCG (LEVOTHROID) TABLET PO SCH (07:03)
[2019-12-31 08:00] VITALS: BP 152/69
[2019-12-31 08:23] LABS: BASOPHILS % (AUTO) 0 % (0-10); EOSINOPHILS # (AUTO) 0.1 10^3/uL (0.0-0.3); EOSINOPHILS % (AUTO) 1 % (0-10); HEMATOCRIT 33 % (35-52); HEMOGLOBIN 10.8 G/DL (11.5-16.0); LYMPHOCYTES # (AUTO) 2.4 X 10^3 (1.0-4.0); LYMPHOCYTES % (AUTO) 19 % (12-44); MEAN CORPUSCULAR HEMOGLOBIN 27 PG (25-34); MEAN CORPUSCULAR HGB CONC 32 G/DL (32-36); MEAN CORPUSCULAR VOLUME 84 FL (80-99); MEAN PLATELET VOLUME 10.6 FL (7.4-10.4); MONOCYTES # (AUTO) 1.1 X 10^3 (0.0-1.0); MONOCYTES % (AUTO) 9 % (0-12); NEUTROPHILS # (AUTO) 8.6 X 10^3 (1.8-7.8); NEUTROPHILS % (AUTO) 71 % (42-75); PLATELET COUNT 122 10^3/uL (130-400); RED CELL DISTRIBUTION WIDTH 16.8 % (10.0-14.5); WHITE BLOOD COUNT 12.2 10^3/uL (4.3-11.0)
[2019-12-31 08:49] LABS: BILIRUBIN,TOTAL 0.9 MG/DL (0.1-1.0); CALCIUM 9.7 MG/DL (8.5-10.1); CREATININE SERUM 2.2 MG/DL (0.60-1.30); TOTAL PROTEIN 7.5 GM/DL (6.4-8.2)
[2019-12-31] MEDS: LOPERAMIDE 2 MG (IMODIUM) TABLET PO SCH ×3 (09:31→20:21)
[2019-12-31] MEDS: ACETAMINOPHEN 500 MG TAB (TYLENOL) PO PRN (09:32)
[2019-12-31] MEDS: NS IV 1000 ML 1,000 ML IV SCH ×3 (09:33→19:41)
--- NOTE | 2019-12-31 10:51 | NUR ---
CM/SS: Visited with pt as to plan for discharge Plan: Pt to return to her home (she lives with daughter) with possibility of increasing her home community based service (HCBS) hours to assist in her care. Summary: Pt is in bed and reports she not really feeling better. She reports that she has been sick for 7 weeks and has had diarrhea and is frustrated with Dr Bui and his staff. She reports that her daughter is tired and has been busy cleaning up pt and cleaning the home. Pt is on Home Community Based Services through [employer]. She is unable to recall her [employer] workers name. This worker explains that she will reach out to [employer] and see if they can maybe increase the number of hours in the home. This worker will follow up. Telephone Call to Nestor Dugan - [facility] [employer] - [phone] - Left message. Telephone Call to Daughter - [place]- [phone] - Talked with daughter as to the status of pt and wanted to verify if pt has home community based service hours. She reports she does have hours- total of 40 hours per week. Daughter and son in law provide the hours. Daughter is frustrated with the doctors office and that she is having to clean the home as pt has had diarrhea. She reports doing laundry and cleaning the house. She ask this worker if she can approve the hours of them cleaning the house - this worker clarified her role and shared with that I am unable to approve the hours. Daughter identified the [employer] worker as Nestor Dugan. Daughter informed that this worker has left a message for Nestor to call. Daughter ask to have Nestor call her as she wanted to talk with him. This worker will do so. This worker will follow up.
[2019-12-31 11:00] VITALS: BP 110/61
--- NOTE | 2019-12-31 12:17 | Consultation - Surgery ---
History of Present Illness History of Present Illness Patient Consulted On(kelly/time) 12/31/19 12:11 Time Seen by Provider: 11:14 History of Present Illness Surgery asked to consult regarding diarrhea. HPI per ED: To ER with reports of persistent diarrhea for about 7 weeks without known cause. Her stool cultures including C. difficile are negative. She denies abdominal pain now or at any time, denies nausea or vomiting or fevers. She has tried Questran without improvement in symptoms but has not taken any other medications. She was just prescribed Imodium earlier today but hasn't taken any of these yet. She is scheduled for colonoscopy with Dr. Porter next week. She had outpatient labs done today showing an acute on chronic kidney dysfunction, her creatinine was 2.4, most recent labs done outpatient April 05, 2019 had creatinine of 1.3. Timing/Duration: Other Severity: Moderate Associated Systoms: Denies Symptoms When I spoke to the pt this afternoon she states she has not had any more diarrhea (got one does of immodium) and wants to go home. She denies any abdominal pain. This pt is actually known to me, she was seen in my office and set up for colonoscopy on Friday. Previous cultures for C. Diff and enteric organisms have been negative. Allergies and Home Medications Allergies Coded Allergies: Penicillins (Verified Allergy, Unknown, Pt has received Ceftriaxone in the past, 05/13/18) influenza virus vaccine, specific (Verified Adverse Reaction, Unknown, Not allergic just won't take Flu vaccine, 05/13/18) Home Medications Acetaminophen 500 Mg Tablet, 500 MG PO Q6H PRN for PAIN-MILD, (Reported) Albuterol Sulfate 18 Gm Hfa.aer.ad, 2 PUFF INH Q4H PRN for SHORTNESS OF BREATH, (Reported) Aspirin 81 Mg Tablet.dr, 81 MG PO DAILY, (Reported) Atorvastatin Calcium 40 Mg Tablet, 40 MG PO HS, (Reported) Citalopram Hydrobromide 20 Mg Tablet, 20 MG PO HS, (Reported) Cyclosporine 1 Each [place]pe[place], 1 DROP OU BID, (Reported) Fluticasone Propionate 16 Gm [place].susp, 1 SPRAY NS DAILY, (Reported) Fluticasone/Salmeterol 1 Each Blst.w.dev, 1 PUFF IH BID, (Reported) Folic Acid 1 Mg Tablet, 1 MG PO DAILY, (Reported) Furosemide 40 Mg Tablet, 40 MG PO DAILY, (Reported) Insulin Aspart 100 Unit/1 Ml Susp, 10 UNIT SQ 0800, (Reported) Insulin Aspart 100 Unit/1 Ml Susp, 2 UNIT SQ 1200, (Reported) Insulin Aspart 100 Unit/1 Ml Susp, 6 UNIT SQ 1700, (Reported) Insulin Aspart 100 Unit/1 Ml Susp, SQ AC, (Reported) USES SLIDING SCALE IN ADDITION TO HER SCHEDULED INSULIN DOSE: 150-200=2 UNITS 201-250=4 UNITS 251-300=6 UNITS 301-350=8 UNITS 351-400=10 UNITS OVER 400=12 UNITS Insulin Degludec 100 Unit/1 Ml Insuln.pen, 35 UNIT SQ HS, (Reported) Levothyroxine Sodium 125 Mcg Tablet, 125 MCG PO DAILY, (Reported) Loratadine 10 Mg Tablet, 10 MG PO DAILY, (Reported) Meclizine HCl 25 Mg Tablet, 25 MG PO DAILY, (Reported) Metoprolol Succinate 25 Mg Tab.er.24h, 25 MG PO BID, (Reported) Multivitamin 1 Each Tablet, 1 TAB PO DAILY, (Reported) Niacin 1,000 Mg Tab.er.24h, 1,000 MG PO HS, (Reported) Olmesartan Medoxomil 20 Mg Tablet, 10 MG PO DAILY, (Reported) TAKES 1/2 (20MG) TABLET [place] 3 Polyunsat Fatty Acids 1,000 Mg Cap, 3,000 MG PO DAILY, (Reported) Omeprazole 40 Mg Capsule.dr, 40 MG PO DAILY, (Reported) Pregabalin 100 Mg Capsule, 100 MG PO 0800,1500,2100, (Reported) Sertraline HCl 50 Mg Tablet, 50 MG PO DAILY, (Reported) Solifenacin Succinate 5 Mg Tablet, 5 MG PO DAILY, (Reported) Tiotropium [place] 1 Inh Aerp, 1 CAP IH HS, (Reported) Trazodone HCl 100 Mg Tablet, 100 MG PO HS, (Reported) Patient Home Medication List Home Medication List Reviewed: Yes Past Yjglyff-Niztmr-Nqcfpe Hx Patient Social History Alcohol Use: Denies Use Recreational Drug Use: No 2nd Hand Smoke Exposure: No Recent Foreign Travel: No Contact w/Someone Who Travel: No Recent Infectious Disease Expo: No Recent Hopitalizations: No Immunizations Up To Date Tetanus Booster (TDap): Unknown Date of Pneumonia Vaccine: Aug 28, 2012 Seasonal Allergies Seasonal Allergies: Yes Surgeries History of Surgeries: Yes (CATARACTS, BILAT KNEE REPLACEMENT,BKA, R arm fx) Surgeries: Appendectomy, Coronary Stent, Eye Surgery, Hysterectomy, Joint Replacement, Orthopedic, Tonsillectomy Respiratory History of Respiratory Disorde: Yes Respiratory Disorders: Sleep Apnea Cardiovascular History of Cardiac Disorders: Yes (STENTS) Cardiac Disorders: Coronary Artery Disease, High Cholesterol, Hypertension Neurological History of Neurological Disord: Yes Neurological Disorders: Dementia 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 System Hx 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 Disorders: No Sexually Transmitted Disease: No HIV/AIDS: No Female 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 Disorders: 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 Genitourinary History of Genitourinary Disor: Yes Genitourinary Disorders: Kidney Infection, Bladder Infection, Renal Failure, UTI-Chronic Gastrointestinal History of Gastrointestinal Di: Yes Gastrointestinal Disorders: Gastroesophageal Reflux, Chronic Constipation, Polyps, Hiatal Hernia Musculoskeletal History of Musculoskeletal Dis: Yes Musculoskeletal Disorders: Amputee, Arthritis Endocrine History of Endocrine Disorders: Yes Endocrine Disorders: Diabetes, Insulin dep, Hypothyroidsim HEENT History of HEENT Disorders: Yes (GLASSES) HEENT Disorders: Cataract Loss of Vision: Bilateral Hearing Impairment: Denies Cancer History of Cancer: No Psychosocial History of Psychiatric Problem: Yes Behavioral Health Disorders: Anxiety, Depression Integumentary History of Skin or Integumenta: No Skin/Integumentary Disorders: Recent Skin Changes Blood Transfusions History of Blood Disorders: Yes (ANEMIA) Adverse Reaction to a Blood Tr: No Family Medical History Significant Family History: Diabetes, Hypertension Family Medial History: Arthritis Cardiovascular disease Diabetes mellitus Hypertension Review of Systems-General Constitutional: No chills, No fever; malaise, weakness EENTM: No blurred vision, No double vision, No mouth pain, No mouth swelling, No epistaxis Respiratory: No cough, No dyspnea on exertion, No hemoptysis Cardiovascular: No chest pain; Hx of Intervention; No palpitations; vascular heart diseas Gastrointestinal: No abdominal pain; diarrhea; No nausea, No vomiting Genitourinary: No dysuria, No frequency, No hematuria; other (hx of mutliple UTIs) Musculoskeletal: back pain, joint pain, joint swelling, muscle pain, muscle stiffness Skin: No change in color, No change in hair/nails Psychiatric/Neurological: Denies Anxiety, Denies Depressed, Denies Seizure; Other (dementia) Physical Exam-General Problems Physical Exam Vital Signs Vital Signs - First Documented 12/30/19 19:29 Temp 36.8 Pulse 93 Resp 18 B/P (MAP) 144/66 (92) Pulse Ox 96 O2 Delivery Room Air Capillary Refill : Less Than 3 Seconds General Appearance: WD/WN Eyes: Bilateral Eye PERRL, Bilateral Eye EOMI HEENT: pharynx normal; No scleral icterus (R), No scleral icterus (L) Neck: non-tender, supple Respiratory: chest non-tender, lungs clear, normal breath sounds, no respiratory distress, no accessory muscle use Cardiovascular: regular rate, rhythm, no murmur Gastrointestinal: normal bowel sounds, non tender, soft, no organomegaly, no pulsatile mass Back: no CVA tenderness, no vertebral tenderness Extremities: no pedal edema, other (pt has left BKA) 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, normal mood/affect Skin: normal color, warm/dry Lymphatic: no adenopathy (neck, axilla or groin) Data Review Labs Laboratory Tests 12/30/19 19:47: White Blood Count 12.7H, Red Blood Count 3.47L, Hemoglobin 9.5L, Hematocrit 29L, Mean Corpuscular Volume 83, Mean Corpuscular Hemoglobin 27, Mean Corpuscular Hemoglobin Concent 33, Red Cell Distribution Width 16.8H, Platelet Count 124L, Mean Platelet Volume 10.0, Neutrophils (%) (Auto) 79H, Lymphocytes (%) (Auto) 14, Monocytes (%) (Auto) 7, Eosinophils (%) (Auto) 0, Basophils (%) (Auto) 0, Neutrophils # (Auto) 10.0H, Lymphocytes # (Auto) 1.8, Monocytes # (Auto) 0.9, Eosinophils # (Auto) 0.0, Basophils # (Auto) 0.0, Sodium Level 132L, Potassium Level 4.1, Chloride Level 109H, Carbon Dioxide Level 12L, Anion Gap 11, Blood Urea Nitrogen 27H, Creatinine 2.41H, Estimat Glomerular Filtration Rate 19, BUN/Creatinine Ratio 11, Glucose Level 182H, Calcium Level 9.2, Corrected Calcium 9.4, Total Bilirubin 0.7, Aspartate Amino Transf (AST/SGOT) 34, Alanine Aminotransferase (ALT/SGPT) 25, Alkaline Phosphatase 127, Total Protein 6.8, Albumin 3.8 6/5/20 07:03: Glucometer 139H 12/31/19 08:15: White Blood Count 12.2H, Red Blood Count 3.97L, Hemoglobin 10.8L, Hematocrit 33L , Mean Corpuscular Volume 84, Mean Corpuscular Hemoglobin 27, Mean Corpuscular Hemoglobin Concent 32, Red Cell Distribution Width 16.8H, Platelet Count 122L, Mean Platelet Volume 10.6H, Neutrophils (%) (Auto) 71, Lymphocytes (%) (Auto) 19, Monocytes (%) (Auto) 9, Eosinophils (%) (Auto) 1, Basophils (%) (Auto) 0, Neutrophils # (Auto) 8.6H, Lymphocytes # (Auto) 2.4, Monocytes # (Auto) 1.1H, Eosinophils # (Auto) 0.1, Basophils # (Auto) 0.0, Sodium Level 137, Potassium Level 4.0, Chloride Level 112H, Carbon Dioxide Level 13L, Anion Gap 12, Blood Urea Nitrogen 24H, Creatinine 2.20H, Estimat Glomerular Filtration Rate 21, BUN/Creatinine Ratio 11, Glucose Level 169H, Calcium Level 9.7, Corrected Calcium 9.7, Total Bilirubin 0.9, Aspartate Amino Transf (AST/SGOT) 31, Alanine Aminotransferase (ALT/SGPT) 29, Alkaline Phosphatase 127, Total Protein 7.5, Albumin 4.0 12/31/19 11:50: Glucometer 249H Assessment/Plan Assessment/Plan Assessment/Plan Chronic Diarrhea UTI CAD, HTN Pt has chronic diarrhea which seems better today after immodium. She is set up for Colonoscopy on Friday. She needs ABX for her UTI. From my standpoint she could go home and do colon prep as an outpt. If she needs to stay from Medicine standpoint then she can do prep on Friday in hospital. Clinical Quality Measures DVT/VTE Risk/Contraindication: Risk Factor Score Per Nursin RFS Level Per Nursing on Admit: 4+=Very High LINDA PORTER DO Dec 31, 2019 12:16
--- NOTE | 2019-12-31 13:09 | NUR ---
RD ASSESSMENT PMHx: CAD; HTN; hypercholesterolemia; dementia; chronic UTI; GERD; chronic constipation; amputation (BKA); DM; hypothyroidism PT INTERACTION: Pt was awake and pleasant during nutrition assessment. Note pt has dementia, per chart review. Pt states current appetite is good, but it was better prior to admit. Note PO intake 25% x1meal, per chart review. Pt states following a regular diet at home, and has no issues with chewing/swallowing food. Pt states no recent issues with nausea, vomiting, or constipation. Pt states persistent issues with diarrhea over the last 7 weeks. Note last BM was 6/, and pt not currently on bowel regimen per chart review. Pt states recent 10# wt loss, but unsure of timeframe. Note unable to determine recent wt hx, per chart review. When asked about current DM management, pt states, "it's pretty good, I guess." Note unable to determine recent HbA1c, per chart review. ABNORMAL NUTRITION-RELATED LAB VALUES LOW: Na 132; HIGH: Cl 109; BUN 27; cr 2.41; glu 182 Est. kcal needs: 6110-0019 kcal | 20-25 kcal/kg Est. Pro needs: 63-79 g Pro | 0.8-1.0 g Pro/kg PES STATEMENT: Inadequate oral intake (NI-2.1) related to loss of appetite | diarrhea as evidenced by pt interview | PO intake 25% x1meal INTERVENTION: Continue with current diet order of CHO 45g/m 0snack diet. Switch current nutrition supplementation order from Ensure Enlive (vary) at 10am/HS, to Glucerna (vary) at 10am/HS, for increased kcal intake and better glucose control. Glucerna provides 220 kcal and 10 g Pro per serving. Offered diet education on DM management, but pt declined at this time. Will attempt to offer again prior to discharge. Will continue to follow and reassess as pt needs, intake, and status change. MONITOR/EVALUATE: PO Intake; Plan of Care; Hydration Status; Weight Status; Lab Values Savannah Yun, MS, RD, LD
[2019-12-31] MEDS ORDERED: MIRA25TA PO (14:41)
[2019-12-31] MEDS ORDERED: ASPI325T32 PO (14:41)
[2019-12-31] MEDS ORDERED: AMIT25TA9 PO (14:41)
[2019-12-31] MEDS ORDERED: CHOL4PAC16 PO (14:41)
[2019-12-31] MEDS ORDERED: TR1C15 TP (14:41)
--- NOTE | 2019-12-31 14:46 | NUR ---
SPOKE WITH THE PT (SHE HAD HER MEDICATIONS IN THE ROOM) CALLED [facility] AND HAD THEM SEND A RECENT MED LIST AND THEN SPOKE WITH HER [facility] (HE TAKES CARE OF HER MEDS) TO COMPLETE THE MED REC MOST OF THE MED BOTTLES THE PT HAS IN HER ROOM HAVE FILL DATES OF 11-26-2019 BUT [facility] HAS FILLED THEM MORE RECENTLY. THE FOLLOWING MEDICATIONS WERE ALL FILLED ON 12-24-2019: SERTRALINE 50MG #30/30DS SPIRIVA HANDIHALER #1/30DS ATORVASTATIN 40MG #30/30DS ADVAIR 250/50 #1 FUROSEMIDE 40MG #30/30DS LORATADINE 10MG #30/30D MYRBETRIQ 25MG #30/30DS AMITRIPTYLINE 25MG #30/30DS VENTOLIN #1 PREGABALIN 100MG #90/30DS LEVOTHYROXINE 125MCG #30/30DS NIACIN ER 1000MG #30/30DS METOPROLOL SUCC 25MG #60/30DS OLMESARTAN 20MG #15/30DS OMEPRAZOLE 40MG #30/30DS 12-30-2019 QUESTRAN 4GM #30/10DS 12-21-2019 NOVOLOG 12-21-2019 TRESIBA 12-14-2019 TAC 0.1% 12-13-2019 RESTASIS OTC MEDS: ASPIRIN 325MG TYLENOL
[2019-12-31] MEDS: cefTRIAXone FOR IV USE 1,000 MG in WATER (STERILE) FOR INJECTION 10 ML IV SCH (14:50)
--- NOTE | 2019-12-31 14:54 | History & Physical-Hospitalist ---
History of Present Illness HPI/Chief Complaint Pt is an 84yoCF with a PMH of Charcot foot s/p amputation, HTN, a-fib, IDDMII, hypothyroidism, PVD, and recurrent UTI who presented tot ER due to diarrhea and weakness. She reports she has had this for 7 weeks adn has been tested for c d0ff as an outpatient and was negative. She was found to a urinary tract infection. This afternoon she states that she is doing well and has no complaints. She has had no further diarrhea today. Her creatinine was elevated to 2.4 from her baseline of 1.7. Source: patient Date Seen 12/31/19 Time Seen by a Provider: 14:37 Attending Physician Melonie Bautista MD PCP Andres Bui MD Referring Physician Date of Admission Dec 30, 2019 at 20:21 Home Medications & Allergies Home Medications Reviewed patient Home Medication Reconciliation performed by pharmacy medication reconciliations audiometric technician and/or nursing. Patients Allergies have been reviewed. Allergies Allergies Coded Allergies Penicillins (Verified Allergy, Unknown, Pt has received Ceftriaxone in the past, 05/13/18) influenza virus vaccine, specific (Verified Adverse Reaction, Unknown, Not allergic just won't take Flu vaccine, 05/13/18) Past Frvwygr-Gsecfj-Lxboyf Hx Past Med/Social Hx: Reviewed Nursing Past Med/Soc Hx Patient Social History Marrital Status: single, Employed/Student: retired Alcohol Use: Denies Use Recreational Drug Use: No 2nd Hand Smoke Exposure: No Recent Foreign Travel: No Contact w/other who traveled: No Recent Hopitalizations: No Recent Infectious Disease Expo: No Immunizations Up To Date Tetanus Booster (TDap): Unknown Date of Pneumonia Vaccine: Aug 28, 2012 Seasonal Allergies Seasonal Allergies: Yes Past Medical History Surgeries: Appendectomy, Coronary Stent, Eye Surgery, Hysterectomy, Joint Replacement, Orthopedic, Tonsillectomy Respiratory: Sleep Apnea Currently Using CPAP: Yes (with oxygen) Currently Using BIPAP: No Cardiac: Coronary Artery Disease, High Cholesterol, Hypertension Neurological: Dementia [facility] 09/03/17 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: No Sexually Transmitted Disease: No HIV/AIDS: No Female 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 Disorders: Denies Menopausal Genitourinary: Kidney Infection, Bladder Infection, Renal Failure, UTI-Chronic Gastrointestinal: Gastroesophageal Reflux, Chronic Constipation, Polyps, Hiatal Hernia Musculoskeletal: Amputee, Arthritis Endocrine: Diabetes, Insulin dep, Hypothyroidsim HEENT: Cataract Loss of Vision: Bilateral Hearing Impairment: Denies Psychosocial: Anxiety, Depression Skin/Integumentary: Recent Skin Changes History of Blood Disorders: Yes (ANEMIA) Adverse Reaction to Blood Herrera: No Family History Reviewed Nursing Family Hx Arthritis Cardiovascular disease Diabetes mellitus Hypertension Diabetes, Hypertension Review of Systems Constitutional: No chills, No fever; malaise, weakness EENTM: no symptoms reported Respiratory: No cough, No short of breath Cardiovascular: No chest pain Gastrointestinal: No abdominal pain; diarrhea; No nausea, No vomiting Genitourinary: no symptoms reported Musculoskeletal: no symptoms reported Skin: no symptoms reported Psychiatric/Neurological: No Symptoms Reported Physical Exam Physical Exam Vital Signs Vital Signs - First Documented 12/30/19 19:29 Temp 36.8 Pulse 93 Resp 18 B/P (MAP) 144/66 (92) Pulse Ox 96 O2 Delivery Room Air Capillary Refill : Less Than 3 Seconds Height, Weight, BMI Height: 5'7.00" Weight: 182lbs. 0oz. 82.950270vs; 27.19 BMI Method:Stated General Appearance: No Apparent Distress, Chronically ill HEENT: PERRL/EOMI, Moist Mucous Membranes Neck: Normal Inspection, Supple Respiratory: Lungs Clear, No Accessory Muscle Use, No Respiratory Distress Cardiovascular: Regular Rate, Rhythm, Normal Peripheral Pulses Gastrointestinal: Normal Bowel Sounds, Non Tender, Soft Extremity: No Calf Tenderness, Other (s/p BKA) Neurologic/Psychiatric: Alert, Oriented x3, Normal Mood/Affect Results Results/Procedures Labs Laboratory Tests 12/30/19 19:47 12/31/19 08:15 Patient resulted labs reviewed. Assessment/Plan Admission Diagnosis UTI Admission Status: Observation Assessment and Plan UTI Weakness Continue on rocephin Await c/s Not sepsis PT consult Acute on CKD Creatinine elevated but trending down Continue IVF IDDMII HTN A-fib Charcot foot s/p amputation Hypothyroidism Continue home meds No acute management needs Clinical Quality Measures DVT/VTE Risk/Contraindication: Risk Factor Score Per Nursin RFS Level Per Nursing on Admit: 4+=Very High SUHA TAYLOR MD Dec 31, 2019 14:54
--- NOTE | 2019-12-31 15:04 | Physical Therapy Evaluation ---
PT Evaluation-General Medical Diagnosis Admission Date Dec 30, 2019 at 20:21 Medical Diagnosis: RANDOLPH, diarrhea Onset Date: Dec 30, 2019 Therapy Diagnosis Therapy Diagnosis: weakness and impaired mobility Height/Weight Height (Feet): 5 Height (Inches): 7.00 Weight (Pounds): 182 Weight (Ounces): 0 Precautions Precautions/Isolations: Contact Isolation, Fall Prevention Weight Bear Status Right Lower Extremity: Right Weight Bearing/Tolerated Left Lower Extremity: Left Weight Bearing/Tolerated Referral Physician: Hilda Rivas MD Reason for Referral: Evaluation/Treatment Medical History Pertinent Medical History: Atrial Fib, CAD, COPD, DM, GERD, HTN, Hypothroidism, Neuropathy, Renal Insufficiency Additional Medical History (L) LE BKA Current History Admit via ED due to weakness and diarrhea Reviewed History: Yes Social History Home: Single Level Current Living Status: Other Family Entry Into Home: Ramp Prior Prior Level of Function SCALE: Activities may be completed with or without assistive devices. 0-Ynwhhakqzk-qdafphk completes the activity by him/herself with no assistance from a helper. 5-Set-up or Clean-up Assistance-helper sets up or cleans up; patient completes activity. [place] assists only prior to or following the activity. 4-Supervision or Touching Assistance-helper provides verbal cues and/or touchin g/steadying and/or contact guard assistance as patient completes activity. Assistance may be provided throughout the activity or intermittently. 3-Partial/Moderate Assistance-helper does LESS THAN HALF the effort. [place] lifts, holds or supports trunk or limbs, but provides less than half the effort. 2-Substantial/Maximal Assistance-helper does MORE THAN HALF the effort. [place] lifts or holds trunk or limbs and provides more than half the effort. 1-Rdhckfmel-iadfwh does ALL the effort. Patient does none of the effort to complete the activity. Or, the assistance of 2 or more helpers is required for the patient to complete the activity. If activity was not attempted, code reason: 7-Patient Refused. 9-Not Applicable-not attempted and the patient did not perform the activity before the current illness, exacerbation or injury. 10-Not Attempted due to Environmental Limitations-(lack of equipment, weather restraints, etc.). 88-Not Attempted due to Medical Conditions or Safety Concerns. Bed Mobility: 5 Transfers (B,C,W/C): 5 Gait: 5 Indoor Mobility (Ambulation): Needed Some Help Stairs: Not Applicalbe Prior Devices Use: Manual wheelchair, Walker Prior Device Use: walker in the home and wheelchair in the community PT Evaluation-Current Subjective Pt reports that she is feeling better and wants to try to get up to the commode. Pt/Family Goals Return home. Objective Patient Orientation: Person, Place, Time, Situation Attachments: IV ROM/Strength ROM Upper Extremities WFL ROM Lower Extremities WFL Strength Upper Extremities WFL Strength Lower Extremities WFL Integumentary/Posture Bowel Incontinence: No Bladder Incontinence: No Sensory Vision: Wears Glasses Hearing: Functional Hand Dominance: Right Sensation Right Upper Extremit: Intact Sensation Left Upper Extremity: Intact Sensation Right Lower Extremit: Impaired Sensation Left Lower Extremity: Intact Sensation Lower Extremities Diminished sensation in the (R) foot plantar surface. Intact sensation in the (L) residual limb. Transfers Roll Left to Right (QC): 5 Sit to Lying (QC): 5 Lying to Sitting/Side of Bed(Q: 5 Sit to Stand (QC): 5 Chair/Kja-ie-Rnebq Xfer(QC): 5 Toilet Transfer (QC): 5 Gait Does the Patient Walk?: Yes Mode of Locomotion: Both Anticipated Mode of Locomotion: Walk Walk 10 feet (QC): 3 Distance: 15ft Gait Assistive Device: FWW Wheelchair Training Does the Pt Use a Wheelchair?: Yes Type of Wheelchair: Manual Balance Sitting Static: Normal Sitting Dynamic: Normal Standing Static: Normal Standing Dynamic: Fair Assessment/Needs Pt has poor activity tolerance at this time. She is ambulating short distances with the prosthetic limb. She would benefit from continued therapy to further improve her mobility and safety. Rehab Potential: Good PT Short Term Goals Short Term Goals Time Frame: Jan 07, 2020 Roll Left & Right: 6 Sit to lyin Lying to sitting on side of be: 6 Sit to stand: 6 Chair/fly-lc-bjqox transfer: 6 Toilet transfer: 6 Car transfer: 6 Walk 10 feet: 6 Walk 50 feet with two turns: 6 PT Plan Problem List Problem List: Activity Tolerance, Safety, Balance, Gait, Transfer Treatment/Plan Treatment Plan: Continue Plan of Care Treatment Plan: Bed Mobility, Functional Activity Emmy, Functional Strength, Gait, Safety, Therapeutic Exercise, Transfers Treatment Duration: Jan 07, 2020 Frequency: 6 times per week Estimated Hrs Per Day: .25 hour per day Patient and/or Family Agrees t: Yes Time/GCodes Time In: 1430 Time Out: 1455 Total Billed Treatment Time: 25 Total Billed Treatment 1, js 25 MELISSA JOSEPH PT Dec 31, 2019 15:04
[2019-12-31] MEDS ORDERED: ARTIFICAL TEARS 0.4 ML UNIT DOSE (REFRESH PLUS) OU PRN (15:30)
[2019-12-31 16:00] VITALS: BP 111/65
[2019-12-31] MEDS: PREGABALIN 100 MG (LYRICA) CAPSULE PO SCH ×2 (16:32→20:20)
[2019-12-31] MEDS: LACTOBACILLUS ACIDOPHILUS (PROBIOTIC) CAPSULE PO SCH (16:33)
[2019-12-31 16:35] LABS: BILIRUBIN,URINE NEGATIVE (NEGATIVE); CLARITY,URINE CLOUDY; COLOR,URINE YELLOW; GLUCOSE, URINE (UA) NEGATIVE (NEGATIVE); KETONES,URINE NEGATIVE (NEGATIVE); LEUKOCYTE ESTERASE ,URINE 3+ (NEGATIVE); NITRITE,URINE POSITIVE (NEGATIVE); PROTEIN,URINE 2+ (NEGATIVE)
[2019-12-31 16:45] LABS: BACTERIA,URINE LARGE /HPF; WBC,URINE TNTC /HPF
[2019-12-31 20:02] VITALS: BP 145/70
[2019-12-31] MEDS: AMITRIPTYLINE 25 MG (ELAVIL) TAB PO SCH (20:20)
[2019-12-31] MEDS: UMECLIDINIUM BROMIDE (INCRUSE ELLIPTA) 7'S IH SCH ×2 (20:25→21:22)
[2019-12-31] MEDS: ADVAIR HFA 115/21 MCG INHALER 8 GM IH SCH ×2 (20:26→21:22)
[2020-01-01 00:12] VITALS: BP 101/58
[2020-01-01 04:15] VITALS: BP 103/61
[2020-01-01] MEDS: NS IV 1000 ML 1,000 ML IV SCH (05:48)
[2020-01-01] MEDS: CATHETER FLUSH 10 ML SYR IV SCH ×2 (05:48→12:37)
[2020-01-01] MEDS: LEVOTHYROXINE 125 MCG (LEVOTHROID) TABLET PO SCH (05:48)
[2020-01-01 05:55] LABS: HEMOGLOBIN 8.3 G/DL (11.5-16.0); MEAN PLATELET VOLUME 10.3 FL (7.4-10.4); RED CELL DISTRIBUTION WIDTH 16.7 % (10.0-14.5); WHITE BLOOD COUNT 9.5 10^3/uL (4.3-11.0)
[2020-01-01] MEDS: inSUlin ASPART (NovoLOG) 1 UNIT/0.01 ML (CHARGE PER UNIT) SC SCH ×2 (06:00→12:37)
[2020-01-01 06:14] LABS: CALCIUM 8.7 MG/DL (8.5-10.1)
[2020-01-01 06:19] LABS: CREATININE SERUM 1.9 MG/DL (0.60-1.30)
--- NOTE | 2020-01-01 07:17 | NUR ---
PT HAS ALREADY RECIEVED HER ADVAIR THIS MORNING. Addendum: 01/01/20 at 0718 by MINE ALEJANDRO RT Amended: Links added.
[2020-01-01 08:00] VITALS: BP 113/64
[2020-01-01] MEDS: LACTOBACILLUS ACIDOPHILUS (PROBIOTIC) CAPSULE PO SCH ×2 (08:33→12:37)
[2020-01-01] MEDS: cefTRIAXone FOR IV USE 1,000 MG in WATER (STERILE) FOR INJECTION 10 ML IV SCH (08:33)
[2020-01-01] MEDS: PREGABALIN 100 MG (LYRICA) CAPSULE PO SCH (08:33)
[2020-01-01] MEDS: LOPERAMIDE 2 MG (IMODIUM) TABLET PO SCH ×2 (08:34→12:37)
[2020-01-01] MEDS ORDERED: SERTRALINE 50 MG (ZOLOFT) TABLET PO SCH (09:00)
[2020-01-01] MEDS ORDERED: ASPIRIN E.C. 325 MG (ECOTRIN) TABLET PO SCH (09:00)
[2020-01-01] MEDS ORDERED: LORATADINE (CLARITIN) 10 MG TAB PO SCH (09:00)
[2020-01-01] MEDS ORDERED: NON-FORMULARY MEDICATION 1 EA EA (Mirabegron (Myrbetriq) 25 MG) PO SCH (09:00)
--- NOTE | 2020-01-01 10:49 | Discharge Summary ---
Diagnosis/Chief Complaint Date of Admission Dec 30, 2019 at 20:21 Date of Discharge Admission Diagnosis UTI Primary Care Andres Bui MD Discharge Summary Discharge Physical Exam Allergies: Coded Allergies: Penicillins (Verified Allergy, Unknown, Pt has received Ceftriaxone in the past, 05/13/18) influenza virus vaccine, specific (Verified Adverse Reaction, Unknown, Not allergic just won't take Flu vaccine, 05/13/18) Vitals & I&Os Vital Signs Date Time Temp Pulse Resp B/P (MAP) Pulse Ox O2 Delivery O2 Flow Rate FiO2 01/01/20 08:00 38.2 83 20 113/64 (80) 97 Room Air General Appearance: No Apparent Distress, Chronically ill Cardiovascular: Regular Rate, Rhythm, No Murmur Gastrointestinal: Normal Bowel Sounds, Soft Neurologic/Psychiatric: Alert, Oriented x3 Hospital Course Pt was admitted due to acute kidney injury from voume depletion due to diarrhea. She was treated with IV fluids and Imodium and this resolved her diarrhea. Her creatinine returned to baseline as well. She was found to have a urinary tract infection and this was treated with Rocephin. She did well and had an uncomplicated hospital stay. She did have a low grade fever on day of discharge but was feeling well and her leukocytosis had resolved so at her request she was discharge home for outpatient follow and with return precautions. Labs (last 24 hrs) Laboratory Tests 12/31/19 11:50: Glucometer 249H 12/31/19 15:51: Glucometer 127H 12/31/19 20:37: Glucometer 267H 01/01/20 05:34: White Blood Count 9.5, Red Blood Count 3.12L, Hemoglobin 8.3#L, Hematocrit 26L, Mean Corpuscular Volume 83, Mean Corpuscular Hemoglobin 27, Mean Corpuscular Hemoglobin Concent 32, Red Cell Distribution Width 16.7H, Platelet Count 137, Mean Platelet Volume 10.3, Sodium Level 136, Potassium Level 4.0, Chloride Level 113H, Carbon Dioxide Level 14L, Anion Gap 9, Blood Urea Nitrogen 21H, Creatinine 1.90H, Estimat Glomerular Filtration Rate 25, BUN/Creatinine Ratio 11, Glucose Level 147H, Calcium Level 8.7 01/01/20 06:08: Glucometer 144H Patient resulted labs reviewed. Pending Labs Laboratory Tests 01/01/20 05:34: White Blood Count 9.5, Red Blood Count 3.12, Hemoglobin 8.3, Hematocrit 26, Mean Corpuscular Volume 83, Mean Corpuscular Hemoglobin 27, Mean Corpuscular Hemoglobin Concent 32, Red Cell Distribution Width 16.7, Platelet Count 137, Mean Platelet Volume 10.3, Sodium Level 136, Potassium Level 4.0, Chloride Level 113, Carbon Dioxide Level 14, Anion Gap 9, Blood Urea Nitrogen 21, Creatinine 1.90, Estimat Glomerular Filtration Rate 25, BUN/Creatinine Ratio 11, Glucose Level 147, Calcium Level 8.7 01/01/20 06:08: Glucometer 144 Discussion & Recommendations Discharge Planning: >30 minutes discharge planning Discharge Home Medications: Active Scripts Active Reported Triamcinolone Acetonide 0.1% Cream (Triamcinolone Acet) 15 Gm Cr 1 Applic TP BID Questran Packet (Cholestyramine (with Sugar)) 4 Gm Powd.pack 4 Gm PO TID PRN Myrbetriq (Mirabegron) 25 Mg Tab.er.24h 25 Mg PO DAILY Amitriptyline HCl 25 Mg Tablet 25 Mg PO HS Aspirin EC (Aspirin) 325 Mg Tablet.dr 325 Mg PO DAILY Novolog (Insulin Aspart) 100 Unit/1 Ml Susp Units SC TIDWM MDD 50 UNITS USE PER SLIDING SCALE WITH A MAX OF 50 UNITS PER DAY Tresiba Flextouch U-100 (Insulin Degludec) 100 Unit/1 Ml Insuln.pen 36 Unit SQ HS Tylenol Extra Strength (Acetaminophen) 500 Mg Tablet 500 Mg PO Q6H PRN Metoprolol Succinate 25 Mg Tab.er.24h 25 Mg PO BID Olmesartan Medoxomil 20 Mg Tablet 10 Mg PO DAILY TAKES 1/2 (20MG) TABLET Furosemide 40 Mg Tablet 40 Mg PO DAILY Lyrica (Pregabalin) 100 Mg Capsule 100 Mg PO 0800,1500,2100 Sertraline HCl 50 Mg Tablet 50 Mg PO DAILY Levothyroxine Sodium 125 Mcg Tablet 125 Mcg PO DAILY Loratadine 10 Mg Tablet 10 Mg PO DAILY Ventolin Hfa (Albuterol Sulfate) 18 Gm Hfa.aer.ad 2 Puff INH Q4H PRN Restasis (Cyclosporine) 1 Each Droperette 1 Drop OU BID Omeprazole 40 Mg Capsule.dr 40 Mg PO DAILY Spiriva (Tiotropium [place]) 1 Inh Aerp 1 Cap IH HS Atorvastatin Calcium 40 Mg Tablet 40 Mg PO HS Niacin ER (Niacin) 1,000 Mg Tab.er.24h 1,000 Mg PO HS Advair 250-50 Diskus (Fluticasone/Salmeterol) 1 Each Blst.w.dev 2 Puff IH HS Instructions to patient/family Please see electronic discharge instructions given to patient. Clinical Quality Measures DVT/VTE Risk/Contraindication: Risk Factor Score Per Nursin RFS Level Per Nursing on Admit: 4+=Very High SUHA TAYLOR MD Jan 01, 2020 10:49
[2020-01-01] MEDS ORDERED: CEPH-507 PO (10:51)
[2020-01-01] MEDS ORDERED: LOPE2CAP PO (10:51)
--- NOTE | 2020-01-01 10:52 | Discharge Inst-Simple/Standard ---
Discharge Inst-Standard Patient Instructions/Follow Up Plan of Care/Instructions/FU: Please continue to take your medications as written. Please follow up with your primary care doctor next week to have your labs checked. Please follow up with Dr Porter for your colonoscopy. Activity as Tolerated: Yes Discharge Diet: ADA Diet Return to The Hospital For: fever, confusion, worsening diarrhea, chest pain, shortness o fbreath, abdominal pain, if you feel you are getting worse. SUHA TAYLOR MD Jan 01, 2020 10:52
[2020-01-01 12:00] VITALS: BP 96/58
--- NOTE | 2020-01-01 12:26 | Physical Therapy Daily Note ---
PT Daily Note-Current Subjective Pt is in the bedside chair and agreeable to treatment. Mental Status Patient Orientation: Person, Place, Time, Situation Transfers SCALE: Activities may be completed with or without assistive devices. 1-Pdfgtssnki-qazqzyf completes the activity by him/herself with no assistance from a helper. 5-Set-up or Clean-up Assistance-helper sets up or cleans up; patient completes activity. [place] assists only prior to or following the activity. 4-Supervision or Touching Assistance-helper provides verbal cues and/or touching/steadying and/or contact guard assistance as patient completes activity. Assistance may be provided throughout the activity or intermittently. 3-Partial/Moderate Assistance-helper does LESS THAN HALF the effort. [place] lifts, holds or supports trunk or limbs, but provides less than half the effort. 2-Substantial/Maximal Assistance-helper does MORE THAN HALF the effort. [place] lifts or holds trunk or limbs and provides more than half the effort. 6-Grcfipkzp-tqabzz does ALL the effort. Patient does none of the effort to complete the activity. Or, the assistance of 2 or more helpers is required for the patient to complete the activity. If activity was not attempted, code reason: 7-Patient Refused. 9-Not Applicable-not attempted and the patient did not perform the activity before the current illness, exacerbation or injury. 10-Not Attempted due to Environmental Limitations-(lack of equipment, weather restraints, etc.). 88-Not Attempted due to Medical Conditions or Safety Concerns. Weight Bearing Right Lower Extremity: Right Weight Bearing/Tolerated Left Lower Extremity: Left Weight Bearing/Tolerated Gait Training Does the Patient Walk?: No and Walking Goal IS indicated Wheelchair Training Does the Pt Use a Wheelchair?: Yes Type of Wheelchair: Manual Exercises Seated Therapy Exercises: LE Protocol Seated Reps: 20 Pt has a 1cm diameter sore on the distal residual limb. She did not have this sore when evaluated yesterday. She should avoid donning the prosthesis to ambulate until the sore has healed. She has had issues with sores in the past, and has had to abstain from ambulation. Assessment Current Status: Fair Progress Pt was able to participate with seated exercises for (B) LEs. She chose to stay in the chair after treatment. PT Short Term Goals Short Term Goals Time Frame: Jan 07, 2020 Roll Left & Right: 6 Sit to lyin Lying to sitting on side of be: 6 Sit to stand: 6 Chair/dxn-fo-ssgsl transfer: 6 Toilet transfer: 6 Car transfer: 6 Walk 10 feet: 6 Walk 50 feet with two turns: 6 PT Plan Treatment/Plan Treatment Plan: Continue Plan of Care Treatment Plan: Bed Mobility, Functional Activity Emmy, Functional Strength, Gait, Safety, Therapeutic Exercise, Transfers Treatment Duration: Jan 07, 2020 Frequency: 6 times per week Estimated Hrs Per Day: .25 hour per day Patient and/or Family Agrees t: Yes Time/GCodes Time In: 1025 Time Out: 1039 Total Billed Treatment Time: 14 Total Billed Treatment 1, ex 14 MELISSA JOSEPH PT Jan 01, 2020 12:26
== END 2020-01-01 15:23 | disposition home or self-care (01) ==
LOC: EDUNIT# 19:18 → ER 19:20 → 4TH 20:21
PROVIDERS: ADMIT Internal Medicine; ATTEND Internal Medicine
DX: N39.0 Urinary tract infection, site not specified (principal); N17.9 Acute kidney failure, unspecified; K59.09 Other constipation; G47.30 Sleep apnea, unspecified; I25.10 Atherosclerotic heart disease of native coronary artery without angina pectoris; I10 Essential (primary) hypertension; I48.91 Unspecified atrial fibrillation; K21.9 Gastro-esophageal reflux disease without esophagitis; M19.90 Unspecified osteoarthritis, unspecified site; E11.9 Type 2 diabetes mellitus without complications; E78.00 Pure hypercholesterolemia, unspecified; E03.9 Hypothyroidism, unspecified; D64.9 Anemia, unspecified; J30.9 Allergic rhinitis, unspecified; F32.9 Major depressive disorder, single episode, unspecified; F03.90 Unspecified dementia, unspecified severity, without behavioral disturbance, psychotic disturbance, mood disturbance, and anxiety; F41.9 Anxiety disorder, unspecified; Z89.439 Acquired absence of unspecified foot; Z88.0 Allergy status to penicillin; Z88.7 Allergy status to serum and vaccine; Z79.82 Long term (current) use of aspirin; Z79.4 Long term (current) use of insulin; Z90.89 Acquired absence of other organs; Z96.653 Presence of artificial knee joint, bilateral; Z90.710 Acquired absence of both cervix and uterus
CPT/HCPCS: 36415; 80048; 80053; 81000; 82962; 85025; 85027; 87077; 87088; 87186; 94640; 94760; G0378

== ENCOUNTER 2020-01-03 10:18 | Day surgery (SDC) | payer MEDICARE, MEDICAID ==
[~2020-01-03] VITALS: Ht 165.1 cm; Wt 78.6 kg
[2020-01-03] VITALS (10 sets, daily range): BP systolic 103–157; BP diastolic 52–71
[~2020-01-03 10:18] MED LIST changes: +AMIT25TA9 PO; +CHOL4PAC16 PO; +MIRA25TA PO; +TR1C15 TP
[2020-01-03] MEDS ORDERED: LACTATED RINGERS 1,000 ML IV ONE (10:33)
[2020-01-03] MEDS ORDERED: LACTATED RINGERS 1,000 ML IV STA (10:34)
--- NOTE | 2020-01-03 10:50 | Progress Note-Pre Operative ---
Pre-Operative Progress Note H&P Reviewed The H&P was reviewed, patient examined and no changes noted. Time Seen by Provider: 10:46 Date H&P Reviewed: Jan 03, 2020 Time H&P Reviewed: 10:46 Pre-Operative Diagnosis: Blood in stool, diarrhea LINDA MCCARTNEY DO Jan 03, 2020 10:50
[2020-01-03] MEDS ORDERED: proPOfol 200 MG/20 ML (DIPRIVAN) VIAL IV ONE (11:48)
--- NOTE | 2020-01-03 12:43 | Progress Note-Post Operative ---
Post-Operative Progess Note Surgeon (s)/Military Technology Specialist (s) Surgeon LINDA MCCARTNEY DO Military Technology Specialist: none Pre-Operative Diagnosis Blood in stool, diarrhea Post-Operative Diagnosis Colitis internal hemorrhoids Procedure & Operative Findings Date of Procedure 01/03/20 Procedure Performed/Findings Colon with hot bx, brushing and fecal sample Anesthesia Type IV sedation by anesthesia Estimated Blood Loss Estimated blood loss (mL): scant Specimens/Packing Specimens Removed cecal bx ascending colon brushings stool sample ??mucous LINDA MCCARTNEY DO Jan 03, 2020 12:43
--- NOTE | 2020-01-03 12:45 | Endoscopy Discharge Instruct ---
Endo Procedure/Findings Findings 1.: Colitis 2.: Internal Hemorrhoids Discharge Instructions - Activity: You might feel a little sleepy until tomorrow. This is due to the medicine you received to relax you. Until tomorrow, you should: NOT drive a car, operate machinery or power tools. NOT drink any alcoholic beverages. NOT make any important decisions or sign importortant papers. Do not return to work until tomorrow, unless otherwise instructed. Resume previous activities tomorrow. Diet: Start by taking liquids. If you tolerate liquids, advance to solid food. make an appointment for one week 1.: Colonoscopy in 1 year Notify Physician - If you experience excessive bleeding, unusual abdominal pain, fever, or chest pain, contact your doctor immediately. LINDA MCCARTNEY DO Jan 03, 2020 12:45
--- OUTSIDE RECORDS SUMMARY | 2020-01-03 13:08 | XMS REPORT | Continuity of Care Document ---
Author Organization Unknown Address Unknown Phone Unavailable Allergies Active Description Code Type Severity Reaction Onset Reported/Identified Relationship to Patient Clinical Status Yes Influenza Virus Vacc,Specific [id number] Drug Allergy Unknown N/A 02/02/2015 Yes influenza virus vaccine, specific [id number] Drug Allergy Unknown N/A 015 Yes Penicillins [id number] Drug Aller gy Unknown N/A 02/02/2015 Yes influenza virus vaccine, specific [id number] [id number] Drug Allergy Unknown Not allergic ju 05/13/2018 Yes Penicillins [id number] Drug Aller gy Unknown Pt has received 05/13/2018 Medications There is no data. Problems Date Dx Coded Attending Type Code Diagnosis Diagnosed By DINORA GREEN Ot D63.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 DINORA GREEN N Ot N18.3 CHRONIC KIDNEY DISEASE, STAGE 3 (MODERAT DINORA GREEN N Ot Z79.899 OTHER PENITENTIARY (CURRENT) DRUG THERAPY 06/26/1099 DINORA GREEN N Ot D50.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 06/26/1099 DINORA GREEN N Ot D63.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 06/26/1099 DINORA GREEN N Ot N18.3 CHRONIC KIDNEY DISEASE, STAGE 3 (MODERAT 06/26/1099 NORMA, BOBAN N Ot Z79.899 OTHER PENITENTIARY (CURRENT) DRUG THERAPY 06/26/1101 JOSIE GREENAN N Ot D50.9 IRON DEFICIENCY ANEMIA, UNSPECIFIED 06/26/1101 DINORA GREEN N Ot D63.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 06/26/1101 DINORA GREEN N Ot E03.9 HYPOTHYROIDISM, UNSPECIFIED 06/26/1101 DINORA GREEN N Ot 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 06/26/1101 DINORA GREEN N Ot E78.2 MIXED HYPERLIPIDEMIA 06/26/1101 DINORA GREEN Ot G47.33 OBSTRUCTIVE SLEEP APNEA (ADULT) (PEDIATR 06/26/1101 NORMADINORA Ot 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 CHRONIC KIDNEY DISEASE W ST 06/26/1101 DINORA GREEN Ot I25.10 ATHSCL HEART DISEASE OF [place] CORONARY 06/26/1101 NORMADINORA Ot I27.20 PULMONARY HYPERTENSION, UNSPECIFIED 06/26/1101 DINORA GREEN Ot I73.9 PERIPHERAL VASCULAR DISEASE, UNSPECIFIED 06/26/1101 NORMADINORA Ot J44.9 CHRONIC OBSTRUCTIVE PULMONARY DISEASE, U 06/26/1101 DINORA GREEN Ot M19.91 PRIMARY OSTEOARTHRITIS, UNSPECIFIED SITE 06/26/1101 DINORA GREEN Ot N18.4 CHRONIC KIDNEY DISEASE, STAGE 4 (SEVERE) 06/26/1101 DINORA GREEN Ot R91.1 SOLITARY PULMONARY NODULE 06/26/1101 DINORA GREEN Ot Z79.4 RATE QUOTING OPERATOR (CURRENT) USE OF INSULIN 06/26/1101 DINORA GREEN Ot Z79.82 RATE QUOTING OPERATOR (CURRENT) USE OF ASPIRIN 06/26/1101 DINORA GREEN Ot Z79.899 OTHER RATE QUOTING OPERATOR (CURRENT) DRUG THERAPY 06/26/1129 CHASITY DE LA CRUZ MD Ot D50. 9 IRON DEFICIENCY ANEMIA, UNSPECIFIED 06/26/1129 CHASITY DE LA CRUZ MD Ot D63. 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 06/26/1129 CHASITY DE LA CRUZ MD Ot E03. 9 HYPOTHYROIDISM, UNSPECIFIED 06/26/1129 CHASITY DE LA CRUZ MD Ot E11. 22 TYPE 2 DIABETES MELLITUS W DIABETIC SERVICE OBSERVER CHIEF 06/26/1129 CHASITY DE LA CRUZ MD Ot E78. 2 MIXED HYPERLIPIDEMIA 06/26/1129 CHASITY DE LA CRUZ MD Ot G47. 33 OBSTRUCTIVE SLEEP APNEA (ADULT) (PEDIATR 06/26/1129 CHASITY DE LA CRUZ MD Ot I12. 9 HYPERTENSIVE CHRONIC KIDNEY DISEASE W ST 06/26/1129 CHASITY DE LA CRUZ MD Ot I25. 10 ATHSCL HEART DISEASE OF [place] CORONARY 06/26/1129 CHASITY DE LA CRUZ MD Ot I27. 20 PULMONARY HYPERTENSION, UNSPECIFIED 06/26/1129 CHASITY DE LA CRUZ MD Ot I73. 9 PERIPHERAL VASCULAR DISEASE, UNSPECIFIED 06/26/1129 CHASITY DE LA CRUZ MD, Ot J44. 9 CHRONIC OBSTRUCTIVE PULMONARY DISEASE, U 06/26/1129 CHASITY DE LA CRUZ MD, Ot M19. 91 PRIMARY OSTEOARTHRITIS, UNSPECIFIED SITE 06/26/1129 CHASITY DE LA CRUZ MD Ot N18. 4 CHRONIC KIDNEY DISEASE, STAGE 4 (SEVERE) 06/26/1129 CHASITY DE LA CRUZ MD Ot R91. 1 SOLITARY PULMONARY NODULE 06/26/1129 CHASITY DE LA CRUZ MD, Ot Z79. 4 PENITENTIARY (CURRENT) USE OF INSULIN 06/26/1129 CHASITY DE LA CRUZ MD, Ot Z79. 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 10/24/2009 Ot 250.00 10/24/2009 Ot 272.4 10/24/2009 [...] V58.67 09/03/2010 Ot V58.69 01/08/2011 Ot 244.8 ACQU IRED HYPOTHYROID NEC 01/08/2011 Ot 250.02 SEEMA B ЮЛИЯ WO COMPL, TYPE II OR UNSPEC TY 01/08/2011 Ot 270.4 SULP H AMINO-ACID MET DIS 01/08/2011 Ot 272.4 HYPE RLIPIDEMIA NEC/NOS 01/08/2011 Ot 280.0 CHR BLOOD LOSS ANEMIA 01/08/2011 Ot 585.3 SERVICE OBSERVER CHIEF LORI KIDNEY DISEASE, STAGE III (MODER 01/08/2011 Ot 786.05 GREG RTNESS OF BREATH 01/08/2011 Ot 786.07 WHE EZING 01/08/2011 Ot 786.2 COUGH 01/08/2011 Ot V58.63 MITESH G- TERM(CURRENT)USE OF ANTIPLATELET/AN 01/08/2011 Ot V58.67 MITESH G-TERM (CURRENT) USE OF INSULIN 01/08/2011 Ot V58.69 OTH MED,LT,CURRENT USE 02/05/2011 Ot 280.0 CHR BLOOD LOSS ANEMIA 02/05/2011 Ot 535.40 OTH SPECIFIED GASTRITIS,W/O MENTION OF H 03/21/2011 Ot 250.50 SEEMA B W OPHTHAL MANIFEST, TYPE II OR UNSP 03/21/2011 Ot 250.60 SEEMA B W NEURO MANIFEST, TYPE II OR UNSPEC 03/21/2011 Ot 272.1 PURE HYPERGLYCERIDEMIA 03/21/2011 Ot 280.9 IRON DEFIC ANEMIA NOS 03/21/2011 Ot 300.4 DYST HYMIC DISORDER 03/21/2011 Ot 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 03/21/2011 Ot 362.01 SEEMA BETIC RETINOPATHY NOS 03/21/2011 Ot 403.90 HYP TNSV CHR KID DIS, UNSPEC, W CHR KD ST 03/21/2011 Ot 414.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 OF [place] CORON 03/21/2011 Ot 427.31 ATR IAL FIBRILLATION 03/21/2011 Ot 433.10 CAR OTID ARTERY OCCLUSION W O CEREBRAL IN 03/21/2011 Ot 496 CHR AI RWAY OBSTRUCT NEC 03/21/2011 Ot 535.51 UNS PEC GASTRITIS GASTRODUODENITIS, W/ 03/21/2011 Ot 585.3 SERVICE OBSERVER CHIEF LORI KIDNEY DISEASE, STAGE III (MODER 03/21/2011 Ot 794.30 ABN CARDIOVASC STUDY NOS 03/21/2011 Ot 996.72 OTH COMPLICATIONS DUE TO OT CARD DEVICE 03/21/2011 Ot V12.71 PER MALINDA HISTORY OF PEPTIC ULCER DISEASE 03/21/2011 Ot V45.82 PER CUTANEOUS TRANSLUM CORON ANGIOPLASTY 03/21/2011 Ot V46.2 SUPP LEMENTAL OXYGEN 03/21/2011 Ot V58.63 MITESH G- TERM(CURRENT)USE OF ANTIPLATELET/AN 03/21/2011 Ot V58.65 MITESH G- TERM(CURRENT)USE OF STEROIDS 03/21/2011 Ot V58.66 MITESH G-TERM (CURRENT) USE OF ASPIRIN 03/21/2011 Ot V58.67 MITESH G-TERM (CURRENT) USE OF INSULIN 03/21/2011 Ot V58.69 OTH MED,LT,CURRENT USE 03/26/2011 Ot 250.00 SEEMA B ЮЛИЯ WO COMPL, TYPE II OR UNSPEC TY 03/26/2011 Ot 272.4 HYPE RLIPIDEMIA NEC/NOS 03/26/2011 Ot 285.29 ANE ASPEN OF OTHER CHRONIC DISEASE 03/26/2011 Ot 401.9 HYPE RTENSION NOS 03/26/2011 Ot 414.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 OF [place] CORON 03/26/2011 Ot 433.10 CAR OTID ARTERY OCCLUSION W O CEREBRAL IN 03/26/2011 Ot 496 CHR AI RWAY OBSTRUCT NEC 03/26/[address] PAIN NOS 03/26/2011 Ot V45.82 PER CUTANEOUS TRANSLUM CORON ANGIOPLASTY 03/26/2011 Ot V58.63 MITESH G- TERM(CURRENT)USE OF ANTIPLATELET/AN 03/26/2011 Ot V58.67 MITESH G-TERM (CURRENT) USE OF INSULIN 03/26/2011 Ot V58.69 OTH MED,LT,CURRENT USE 04/09/2011 Ot 244.8 ACQU IRED HYPOTHYROID NEC 04/09/2011 Ot 250.02 SEEMA B ЮЛИЯ WO COMPL, TYPE II OR UNSPEC TY 04/09/2011 Ot 270.4 SULP H AMINO-ACID MET DIS 04/09/2011 Ot 272.4 HYPE RLIPIDEMIA NEC/NOS 04/09/2011 Ot 280.0 CHR BLOOD LOSS ANEMIA 04/09/2011 Ot 585.3 SERVICE OBSERVER CHIEF LORI KIDNEY DISEASE, STAGE III (MODER 04/09/2011 Ot V58.63 MITESH G- TERM(CURRENT)USE OF ANTIPLATELET/AN 04/09/2011 Ot V58.67 MITESH G-TERM (CURRENT) USE OF INSULIN 04/09/2011 Ot V58.69 OTH MED,LT,CURRENT USE 05/01/2011 Ot 250.00 SEEMA B ЮЛИЯ WO COMPL, TYPE II OR UNSPEC TY 05/01/2011 Ot 272.4 HYPE RLIPIDEMIA NEC/NOS 05/01/2011 Ot 250.00 SEEMA B ЮЛИЯ WO COMPL, TYPE II OR UNSPEC TY 05/01/2011 Ot 272.4 HYPE RLIPIDEMIA NEC/NOS 05/01/2011 Ot 285.9 ANEM IA NOS 05/01/2011 Ot 401.9 HYPE RTENSION NOS 05/01/2011 Ot 414.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 OF [place] CORON 05/01/2011 Ot 496 CHR AI RWAY OBSTRUCT NEC 05/01/2011 Ot 715.90 OST EOARTHROS NOS- UNSPEC 05/01/[address] PAIN NOS 05/01/2011 Ot V45.82 PER CUTANEOUS TRANSLUM CORON ANGIOPLASTY 05/01/2011 Ot V46.2 SUPP LEMENTAL OXYGEN 05/01/2011 Ot V58.63 MITESH G- TERM(CURRENT)USE OF ANTIPLATELET/AN 05/01/2011 Ot V58.66 MITESH G-TERM (CURRENT) USE OF ASPIRIN 05/01/2011 Ot V58.67 MITESH G-TERM (CURRENT) USE OF INSULIN 05/01/2011 Ot V58.69 OTH MED,LT,CURRENT USE 07/09/2011 Ot 244.8 ACQU IRED HYPOTHYROID NEC 07/09/2011 Ot 250.02 SEEMA B ЮЛИЯ WO COMPL, TYPE II OR UNSPEC TY 07/09/2011 Ot 270.4 SULP H AMINO-ACID MET DIS 07/09/2011 Ot 272.4 HYPE RLIPIDEMIA NEC/NOS 07/09/2011 Ot 280.0 CHR BLOOD LOSS ANEMIA 07/09/2011 Ot 585.3 SERVICE OBSERVER CHIEF LORI KIDNEY DISEASE, STAGE III (MODER 07/09/2011 Ot V58.63 MITESH G- TERM(CURRENT)USE OF ANTIPLATELET/AN 07/09/2011 Ot V58.67 MITESH G-TERM (CURRENT) USE OF INSULIN 07/09/2011 Ot V58.69 OTH MED,LT,CURRENT USE 10/09/2011 Ot 270.4 SULP H AMINO-ACID MET DIS 10/09/2011 Ot 280.0 CHR BLOOD LOSS ANEMIA 10/09/2011 Ot 285.21 ANE ASPEN IN CHRONIC KIDNEY DISEASE 10/09/2011 Ot 414.00 COR ON ATHEROSCLER NOS TYPE VESSEL, NATIV 10/09/2011 Ot 585.3 SERVICE OBSERVER CHIEF LORI KIDNEY DISEASE, STAGE III (MODER 10/09/2011 Ot V58.69 OTH MED,LT,CURRENT USE 01/08/2012 Ot 270.4 SULP H AMINO-ACID MET DIS 01/08/2012 Ot 280.0 CHR BLOOD LOSS ANEMIA 01/08/2012 Ot 285.21 ANE ASPEN IN CHRONIC KIDNEY DISEASE 01/08/2012 Ot 414.00 COR ON ATHEROSCLER NOS TYPE VESSEL, NATIV 01/08/2012 Ot 585.3 SERVICE OBSERVER CHIEF LORI KIDNEY DISEASE, STAGE III (MODER 01/08/2012 Ot V58.69 OTH MED,LT,CURRENT USE 04/08/2012 Ot 270.4 SULP H AMINO-ACID MET DIS 04/08/2012 Ot 280.0 CHR BLOOD LOSS ANEMIA 04/08/2012 Ot 285.21 ANE ASPEN IN CHRONIC KIDNEY DISEASE 04/08/2012 Ot 414.00 COR ON ATHEROSCLER NOS TYPE VESSEL, NATIV 04/08/2012 Ot 585.3 SERVICE OBSERVER CHIEF LORI KIDNEY DISEASE, STAGE III (MODER 04/08/2012 Ot V58.69 OTH MED,LT,CURRENT USE 07/08/2012 Ot 280.0 CHR BLOOD LOSS ANEMIA 07/08/2012 Ot 285.21 ANE ASPEN IN CHRONIC KIDNEY DISEASE 07/08/2012 Ot 414.00 COR ON ATHEROSCLER NOS TYPE VESSEL, NATIV 07/08/2012 Ot 585.3 SERVICE OBSERVER CHIEF LORI KIDNEY DISEASE, STAGE III (MODER 07/08/2012 Ot 787.91 SEEMA RRHEA 07/08/2012 Ot V58.63 MITESH G- TERM(CURRENT)USE OF ANTIPLATELET/AN 07/08/2012 Ot V58.67 MITESH G-TERM (CURRENT) USE OF INSULIN 07/08/2012 Ot V58.69 OTH MED,LT,CURRENT USE 07/28/2012 Ot 787.91 SEEMA RRHEA 07/29/2012 Ot 270.4 SULP H AMINO-ACID MET DIS 07/29/2012 Ot 280.0 CHR BLOOD LOSS ANEMIA 07/29/2012 Ot 285.21 ANE ASPEN IN CHRONIC KIDNEY DISEASE 07/29/2012 Ot 414.00 COR ON ATHEROSCLER NOS TYPE VESSEL, NATIV 07/29/2012 Ot 585.3 SERVICE OBSERVER CHIEF LORI KIDNEY DISEASE, STAGE III (MODER 07/29/2012 Ot V58.69 OTH MED,LT,CURRENT USE 09/05/2012 Ot 250.02 SEEMA B ЮЛИЯ WO COMPL, TYPE II OR UNSPEC TY 09/05/2012 Ot 272.4 HYPE RLIPIDEMIA NEC/NOS 09/05/2012 Ot 276.1 HYPO SMOLALITY 09/05/2012 Ot 285.29 ANE ASPEN OF OTHER CHRONIC DISEASE 09/05/2012 Ot 300.00 ANX IETY STATE NOS 09/05/2012 Ot 403.00 HYP TNSV CHR KID DIS, MALIGN, W CHR KD ST 09/05/2012 Ot 414.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 OF [place] CORON 09/05/2012 Ot 458.0 ORTH OSTATIC HYPOTENSION 09/05/2012 Ot 496 CHR AI RWAY OBSTRUCT NEC 09/05/2012 Ot 585.3 SERVICE OBSERVER CHIEF LORI KIDNEY DISEASE, STAGE III (MODER 09/05/2012 Ot 715.90 OST EOARTHROS NOS- UNSPEC 09/05/2012 Ot V03.82 PRO PHYLACTIC VACC AGAINST STREPTOCOCCUS 09/05/2012 Ot V45.82 PER CUTANEOUS TRANSLUM CORON ANGIOPLASTY 09/12/2012 Ot 812.40 FX LOWER HUMERUS NOS-CL 09/12/2012 Ot 920 CONTUS ION FACE/SCALP/NCK 09/12/2012 Ot 959.2 SHLD R/UPPER ARM INJ NOS 09/12/2012 Ot E000.8 OTH ER EXTERNAL CAUSE STATUS 09/12/2012 Ot E001.0 ACT IVITIES INVOLVING WALKING, MARCHING A 09/12/2012 Ot E849.6 ACC IDENT IN PUBLIC BLDG 09/12/2012 Ot E885.9 FAL L FROM SLIPPING, TRIPPING, OR STUMBLI 09/26/2012 Ot 250.00 SEEMA B ЮЛИЯ WO COMPL, TYPE II OR UNSPEC TY 09/26/2012 Ot 812.41 SUP RCONDYL FX HUMERUS-CL 09/26/2012 Ot E000.8 OTH ER EXTERNAL CAUSE STATUS 09/26/2012 Ot E849.[address] NEC 09/26/2012 Ot E888.9 FAL L NOS 10/28/2012 Ot 285.21 ANE ASPEN IN CHRONIC KIDNEY DISEASE 10/28/2012 Ot 585.3 SERVICE OBSERVER CHIEF LORI KIDNEY DISEASE, STAGE III (MODER 10/28/2012 Ot V58.69 OTH MED,LT,CURRENT USE 01/27/2013 DINORA GREEN Ot 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 01/27/2013 DINORA GREEN Ot 585.3 CHRONIC KIDNEY DISEASE, STAGE III (MODER 01/27/2013 DINORA GREEN Ot V58.69 OTH MED,LT,CURRENT USE 05/05/2013 DINORA GREEN Ot 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 05/05/2013 DINORA GREEN Ot 585.3 CHRONIC KIDNEY DISEASE, STAGE III (MODER 05/05/2013 DINORA GREEN Ot V58.69 OTH MED,LT,CURRENT USE 08/11/2013 DINORA GREEN Ot 280.9 IRON DEFIC ANEMIA NOS 08/11/2013 DINORA GREEN Ot 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 08/11/2013 NORMA, BOBRACHELLE N Ot 585.3 CHRONIC KIDNEY DISEASE, STAGE III (MODER 08/11/2013 NORMA, DINORA N Ot V58.69 OTH MED,LT,CURRENT USE 11/10/2013 NORMA BOBRACHELLE N Ot 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 11/10/2013 DINORA GREEN N Ot 585.3 CHRONIC KIDNEY DISEASE, STAGE III (MODER 11/10/2013 NORMA, BOBRACHELLE N Ot V58.69 OTH MED,LT,CURRENT USE 02/09/2014 NORMA, BOBAN N Ot 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 02/09/2014 NORMA, BOBRACHELLE N Ot 585.3 CHRONIC KIDNEY DISEASE, STAGE III (MODER 02/09/2014 NORMA, BOBAN N Ot V58.69 OTH MED,LT,CURRENT USE 05/11/2014 NORMA, BOBAN N Ot 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 05/11/2014 NORMA, BOBRACHELLE N Ot 585.3 CHRONIC KIDNEY DISEASE, STAGE III (MODER 05/11/2014 NORMA BOBRACHELLE N Ot V58.69 OTH MED,LT,CURRENT USE 06/09/2014 NORMA, BOBAN N Ot 285.21 06/09/2014 NORMA, BOBRACHELLE N Ot 585.3 06/09/2014 NORMA, BOBRACHELLE N Ot V58.69 06/15/2014 ANGEL FLOWERS BANQUET SUPERVISOR Ot 280.9 06/15/2014 ANGEL FLOWERS BANQUET SUPERVISOR Ot 285.21 06/15/2014 ANGEL FLOWERS BANQUET SUPERVISOR Ot 585.3 06/15/2014 ANGEL FLOWERS BANQUET SUPERVISOR Ot V58.69 07/01/2014 JULIETTE GOMEZ MD Ot 272. 4 07/01/2014 PATRICIA TY, JULIETTE Infante Ot 401. 9 07/01/2014 JULIETTE GOMEZ MD Ot 414. 00 07/05/2014 JULIETTE GOMEZ MD Ot 272. 4 07/05/2014 JULIETTE GOMEZ MD Ot 401. 9 07/05/2014 JULIETTE GOMEZ MD Ot 414. 00 07/18/2014 JULIETTE GOMEZ MD Ot 272. 4 07/18/2014 JULIETTE GOMEZ MD Ot 401. 9 07/18/2014 MATT GOMEZ MDHAR J Ot 414. 00 07/18/2014 PATRICIA TY, JULIETTE Infante Ot 272. 4 07/18/2014 PATRICIA TY, JULIETTE Infante Ot 401. 9 07/18/2014 PATRICIA TY, JULIETTE Infante Ot 414. 00 07/20/2014 GALA TY, FRANKLIN A Ot 787. 02 NAUSEA ALONE 07/27/2014 DINORA GREEN N Ot 285.21 07/27/2014 DINORA GREEN N Ot 585.3 07/27/2014 DINORA GREEN N Ot V58.69 08/01/2014 AR ALLEN DO M Ot 496 08/01/2014 ALEJANDRO HUNT AR M Ot 786. 05 08/01/2014 ALEJANDRO HUNT AR M Ot 786. 2 08/01/2014 DINORA RGEEN N Ot 285.21 08/01/2014 DINORA GREEN N Ot 585.3 08/01/2014 DINORA GREEN N Ot V58.69 08/01/2014 ANGEL FLOWERS S BANQUET SUPERVISOR Ot 280.9 08/01/2014 FLOWERSANGEL Garza S BANQUET SUPERVISOR Ot 285.21 08/01/2014 ANGEL FLOWERS S BANQUET SUPERVISOR Ot 585.3 08/01/2014 ANGEL FLOWERS S BANQUET SUPERVISOR Ot 780.60 08/01/2014 ANGEL FLOWERS S BANQUET SUPERVISOR Ot 787.01 08/01/2014 FLOWERS, HILAH S BANQUET SUPERVISOR Ot 787.91 08/01/2014 ANGEL FLOWERS S BANQUET SUPERVISOR Ot V58.69 08/02/2014 AR ALLEN DO M Ot 496 08/02/2014 AR ALLEN DO M Ot 786. 05 08/02/2014 AR ALLEN DO Ot 786. 2 08/03/2014 FLOWERSANGEL Garza S BANQUET SUPERVISOR Ot 280.9 08/03/2014 KRISTIE HILAH S BANQUET SUPERVISOR Ot 285.21 08/03/2014 ANGEL FLOWERS S BANQUET SUPERVISOR Ot 585.3 08/03/2014 FLOWERS, HILAH S BANQUET SUPERVISOR Ot 780.60 08/03/2014 FLOWERS HILAH S BANQUET SUPERVISOR Ot 787.01 08/03/2014 ANGEL FLOWERS S BANQUET SUPERVISOR Ot 787.91 08/03/2014 ANGEL FLOWERS BANQUET SUPERVISOR Ot V58.69 08/10/2014 NORMA, BOBRACHELLE N Ot 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 CHRONIC KIDNEY [...] 585.3 08/11/2014 NORMA, BOBAN N Ot V58.69 08/12/2014 NORMA, BOBAN N Ot 285.21 08/12/2014 NORMA, BOBAN N Ot 585.3 08/12/2014 NORMA, BOBRACHELLE N Ot V58.69 08/25/2014 AR ALLEN DO Ot 496 08/25/2014 AR ALLEN DO Ot 786. 05 08/25/2014 AR ALLEN DO Ot 786. 2 08/26/2014 AR ALLEN DO Ot 496 08/26/2014 AR ALLNE DO Ot 786. 05 08/26/2014 AR ALLEN DO Ot 786. 2 09/06/2014 FELICITA CEDEÑO MD Ot V76.1 2 09/12/2014 FELICITA CEDEÑO MD Ot V76.1 2 09/21/2014 MIRTA TORRES APRN Ot 786.2 09/26/2014 AR ALLEN DO Ot 496 CHR AIRWAY OBSTRUCT NEC 09/26/2014 AR ALLEN DO Ot 786. 05 SHORTNESS OF BREATH 09/26/2014 AR ALLEN DO Ot 786. 2 COUGH 10/20/2014 NORMADINORA REYES N Ot 285.21 10/20/2014 NORMA, BOBAN N Ot 585.3 10/20/2014 NORMA, BOBAN N Ot V58.69 10/21/2014 NORMA, BOBAN N Ot 285.21 10/21/2014 NORMA, BOBAN N Ot 585.3 10/21/2014 NORMAJOSIE REYESAN N Ot V58.69 10/21/2014 Ot 401.9 10/21/2014 Ot 414.00 10/21/2014 Ot 433.10 10/21/2014 Ot 496 10/24/2014 Ot 244.9 10/25/2014 Ot 496 10/25/2014 Ot 786.05 10/25/2014 Ot 786.2 10/25/2014 Ot 401.9 10/25/2014 Ot 414.00 10/25/2014 Ot 433.10 10/25/2014 Ot 496 10/25/2014 Ot 496 10/25/2014 Ot 786.05 10/25/2014 Ot 786.2 10/27/2014 Ot 244.9 11/01/2014 Ot 244.9 11/05/2014 AR ALLEN DO Ot 327. 23 OBSTRUCTIVE SLEEP APNEA (ADULT) (PEDIATR 11/05/2014 AR ALLEN DO Ot 327. 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 9 01/02/2015 AR ALLEN DO M Ot 486 01/02/2015 AR ALLEN DO M Ot 496 01/02/2015 ALEJANDRO AR HUNT M Ot 562. 10 01/02/2015 AR ALLEN DO M Ot 786. 05 01/02/2015 AR ALLEN DO M Ot 786. 2 01/02/2015 ALEJANDRO AR HUNT M Ot 793. 11 01/06/2015 ANGEL FLOWERS S BANQUET SUPERVISOR Ot 4 86 01/06/2015 MIGUEL FLOWERSJENS S BANQUET SUPERVISOR Ot 4 96 01/06/2015 ANGEL FLOWERS S BANQUET SUPERVISOR Ot 784.0 01/06/2015 MIGUEL FLOWERSJENS S BANQUET SUPERVISOR Ot 786.05 01/06/2015 MIGUEL FLOWERSJENS S BANQUET SUPERVISOR Ot 786.2 01/06/2015 MIGUEL FLOWERSJENS S BANQUET SUPERVISOR Ot 280.9 01/06/2015 MIGUEL FLOWERSJENS S BANQUET SUPERVISOR Ot 285.21 01/06/2015 ANGEL FLOWERS S BANQUET SUPERVISOR Ot 585.4 01/06/2015 KRISTIE ANGEL S BANQUET SUPERVISOR Ot 793.11 01/06/2015 ANGEL FLOWERS S BANQUET SUPERVISOR Ot V58.69 01/18/2015 ALEJANDRO AR HUNT M Ot 255. 9 01/18/2015 ALEJANDRO AR HUNT M Ot 486 01/18/2015 ALEJANDRO AR HUNT M Ot 496 01/18/2015 ALEJANDRO AR HUNT M Ot 562. 10 01/18/2015 ALEJANDRO AR HUNT M Ot 786. 05 01/18/2015 ALEJANDRO AR HUNT M Ot 786. 2 01/18/2015 ALEJANDRO AR HUNT M Ot 793. 11 01/20/2015 ANGEL FLOWERS S BANQUET SUPERVISOR Ot 4 86 01/20/2015 ANGEL FLOWERS S BANQUET SUPERVISOR Ot 4 96 01/20/2015 ANGEL FLOWERS S BANQUET SUPERVISOR Ot 784.0 01/20/2015 ANGEL FLOWERS Ot 786.05 01/20/2015 ANGEL FLOWERS BANQUET SUPERVISOR Ot 786.2 01/21/2015 AR ALLEN DO Ot 255. 9 01/21/2015 AR ALLEN DO Ot 486 01/21/2015 AR ALLEN DO Ot 496 01/21/2015 AR ALLEN DO Ot 562. 10 01/21/2015 AR ALLEN DO Ot 786. 05 01/21/2015 AR ALLEN DO Ot 786. 2 01/21/2015 AR ALLEN DO Ot 793. 11 01/31/2015 Ot 786.2 01/31/2015 Ot 397.0 01/31/2015 [...] 01/31/2015 Ot E885.9 01/31/2015 Ot V72.84 01/31/2015 FLOWERSANGEL Garza BANQUET SUPERVISOR Ot 793.80 01/31/2015 FLOWERSANGEL Garza BANQUET SUPERVISOR Ot V67.9 01/31/2015 Ot 250.00 01/31/2015 Ot 272.4 01/31/2015 Ot 401.9 01/31/2015 FLOWERSANGEL BANQUET SUPERVISOR Ot 280.9 01/31/2015 FLOWERSANGEL BANQUET SUPERVISOR Ot 285.21 01/31/2015 FLOWERSANGEL Garza BANQUET SUPERVISOR Ot 414.00 01/31/2015 FLOWERSANGEL Garza BANQUET SUPERVISOR Ot 585.3 01/31/2015 FLOWERSANGEL Garza BANQUET SUPERVISOR Ot 599.0 01/31/2015 FLOWERSANGEL Garza BANQUET SUPERVISOR Ot V58.69 01/31/2015 FLOWERSANGEL BANQUET SUPERVISOR Ot 280.0 01/31/2015 FLOWERSANGEL BANQUET SUPERVISOR Ot 285.21 01/31/2015 FLOWERSANGEL Garza BANQUET SUPERVISOR Ot 414.00 01/31/2015 FLOWERSANGEL Garza BANQUET SUPERVISOR Ot 585.3 01/31/2015 FLOWERSANGEL Garza BANQUET SUPERVISOR Ot V58.69 01/31/2015 DINORA GREEN Ot 793.89 01/31/2015 JANA PALACIOS Ot 250.00 01/31/2015 JANA PALACIOS Ot 272.4 01/31/2015 JANA PALACIOS Ot 401.9 01/31/2015 JANA PALACIOS K Ot 414.00 01/31/2015 JANA PALACIOS Ot 496 01/31/2015 JANA PALACIOS Ot 780.4 01/31/2015 JANA PALACIOS Ot 785.1 01/31/2015 EZ TY, TAPAN P Ot 473 .9 01/31/2015 SAURABH TY, PAIGE Benitez Ot 786.07 01/31/2015 SAURABH TY, PAIGE Benitez Ot 786.2 01/31/2015 PATRICIA TY, JULIETTE Infante Ot 272. 4 01/31/2015 PATRICIA TY, JULIETTE Infante Ot 414. 01 01/31/2015 ANGEL FLOWERS BANQUET SUPERVISOR Ot 285.21 01/31/2015 ANGEL FLOWERS S BANQUET SUPERVISOR Ot 585.3 01/31/2015 ANGEL FLOWERS S BANQUET SUPERVISOR Ot V58.69 01/31/2015 ANGEL FLOWERS S BANQUET SUPERVISOR Ot 429.3 01/31/2015 ANGEL FLOWERS S BANQUET SUPERVISOR Ot 786.09 01/31/2015 ANGEL FLOWERS S BANQUET SUPERVISOR Ot 786.2 01/31/2015 ANGEL FLOWERS S BANQUET SUPERVISOR Ot 280.9 01/31/2015 ANGEL FLOWERS S BANQUET SUPERVISOR Ot 285.21 01/31/2015 ANGEL FLOWERS S BANQUET SUPERVISOR Ot 585.3 01/31/2015 ANGEL FLOWERS S BANQUET SUPERVISOR Ot V58.69 01/31/2015 ALTAGRACIA TY, DELILAH Borges Ot 250.92 01/31/2015 ALTAGRACIA TY, DELILAH Borges Ot 272.4 01/31/2015 ALTAGRACIA TY, DELILAH Borges Ot 355.9 01/31/2015 ANGEL FLOWERS S BANQUET SUPERVISOR Ot 280.9 01/31/2015 ANGEL FLOWERS S BANQUET SUPERVISOR Ot 285.21 01/31/2015 ANGEL FLOWERS S BANQUET SUPERVISOR Ot 585.3 01/31/2015 ANGEL FLOWERS S BANQUET SUPERVISOR Ot V58.69 01/31/2015 FLOWERSANGEL Garza S BANQUET SUPERVISOR Ot 280.9 01/31/2015 ANGEL FLOWERS S BANQUET SUPERVISOR Ot 285.21 01/31/2015 ANGEL FLOWERS S BANQUET SUPERVISOR Ot 585.3 01/31/2015 ANGEL FLOWERS S BANQUET SUPERVISOR Ot V58.69 01/31/2015 LEXIE GONZALES BANQUET SUPERVISOR Ot 496 01/31/2015 LEXIE GONZALES BANQUET SUPERVISOR Ot 786.39 01/31/2015 LEXIE GONZALES BANQUET SUPERVISOR Ot 786.2 01/31/2015 LEXIE GONZALES BANQUET SUPERVISOR Ot 786.30 01/31/2015 LEXIE GONZALES BANQUET SUPERVISOR Ot 793.11 01/31/2015 LEXIE GONZALES BANQUET SUPERVISOR Ot 786.39 01/31/2015 PATRICIA TY, JULIETTE Infante Ot 272. 4 01/31/2015 PATRICIA TY, JULIETTE Infante Ot 401. 9 01/31/2015 PATRICIA TY, JULIETTE Infante Ot 414. 00 01/31/2015 PATRICIA TY, JULIETTE Infante Ot 272. 4 01/31/2015 PATRICIA TY, JULIETTE Infante Ot 401. 9 01/31/2015 PATRICIA TY, JULIETTE Infante Ot 414. 00 01/31/2015 Ot 496 01/31/2015 Ot 786.05 01/31/2015 Ot 786.2 01/31/2015 AR ALLEN DO Ot 496 01/31/2015 AR ALLEN DO Ot 786. 05 01/31/2015 AR ALLEN DO Ot 786. 2 01/31/2015 ANGEL FLOWERS BANQUET SUPERVISOR Ot 280.9 01/31/2015 ANGEL FLOWERS BANQUET SUPERVISOR Ot 285.21 01/31/2015 ANGEL FLOWERS BANQUET SUPERVISOR Ot 585.3 01/31/2015 FLOWERSANGEL Garza S BANQUET SUPERVISOR Ot 780.60 01/31/2015 FLOWERSANGEL Garza S BANQUET SUPERVISOR Ot 787.01 01/31/2015 FLOWERSANGEL Garza S BANQUET SUPERVISOR Ot 787.91 01/31/2015 FLOWERSANGEL Garza S BANQUET SUPERVISOR Ot V58.69 01/31/2015 GALA TY, FELICITA Borges Ot V76.1 2 01/31/2015 MIRTA TORRES APRN Ot 786.2 01/31/2015 Ot 280.9 01/31/2015 Ot 285.21 01/31/2015 Ot 585.4 01/31/2015 Ot 599.0 01/31/2015 Ot 787.91 01/31/2015 Ot 793.11 01/31/2015 Ot V58.69 01/31/2015 Ot 496 01/31/2015 Ot 786.05 01/31/2015 Ot 786.2 01/31/2015 AR ALLEN DO Ot 255. 9 01/31/2015 AR ALLEN DO Ot 486 01/31/2015 AR ALLEN DO Ot 496 01/31/2015 AR ALLEN DO Ot 562. 10 01/31/2015 AR ALLEN DO Ot 786. 05 01/31/2015 AR ALLEN DO Ot 786. 2 01/31/2015 AR ALLEN DO Ot 793. 11 01/31/2015 Ot 401.9 01/31/2015 Ot 414.00 01/31/2015 Ot 433.10 01/31/2015 Ot 496 01/31/2015 Ot 244.9 01/31/2015 FLOWERS ANGEL Garza BANQUET SUPERVISOR Ot 280.9 01/31/2015 FLOWERS ANGEL S BANQUET SUPERVISOR Ot 285.21 01/31/2015 KRISTIE ANGEL S BANQUET SUPERVISOR Ot 585.4 01/31/2015 KRISTIE ANGEL S BANQUET SUPERVISOR Ot 793.11 01/31/2015 KRISTIE ANGEL S BANQUET SUPERVISOR Ot V58.69 01/31/2015 NORMA JOSIERACHELLE N Ot 285.21 01/31/2015 DINORA GREEN Ot 585.3 01/31/2015 NORMADINORA REYES Ot V58.69 01/31/2015 FLOWERS ANGEL S BANQUET SUPERVISOR Ot 285.21 01/31/2015 KRISTIE ANGEL S BANQUET SUPERVISOR Ot 585.4 01/31/2015 KRISTIE ANEGL S BANQUET SUPERVISOR Ot V58.69 01/31/2015 FLOWERS ANGEL S BANQUET SUPERVISOR Ot 4 86 01/31/2015 FLOWERSANGEL Garza S BANQUET SUPERVISOR Ot 4 96 01/31/2015 FLOWERS ANGEL S BANQUET SUPERVISOR Ot 784.0 01/31/2015 KRISTIE ANGEL S BANQUET SUPERVISOR Ot 786.05 01/31/2015 KRISTIE ANGEL S BANQUET SUPERVISOR Ot 786.2 01/31/2015 AR ALLEN DO Ot 486 01/31/2015 AR ALLEN DO Ot 496 01/31/2015 AR ALLEN DO Ot 786. 05 01/31/2015 AR ALLEN DO Ot 786. 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 02/08/2015 DINORA GREEN Ot 585.3 CHRONIC KIDNEY DISEASE, STAGE III (MODER 02/08/2015 DINORA GREEN Ot V58.69 OT MED,LT,CURRENT USE 02/08/2015 GALA TY, FELICITA Borges Ot 038.9 SEPTICEMIA NOS 02/08/2015 FELICITA CEDEÑO MD Ot 242.9 0 THYROTOX NOS NO CRISIS 02/08/2015 FELICITA CEDEÑO MD Ot 250.0 2 DIAB ЮЛИЯ WO COMPL, TYPE II OR UNSPEC TY 02/08/2015 FELICITA CEDEÑO MD Ot 263.1 MALNUTRITION MILD DEGREE 02/08/2015 FELICITA ECDEÑO MD Ot 272.4 HYPERLIPIDEMIA NEC/NOS 02/08/2015 FELICITA CEDEÑO MD Ot 276.6 9 OTHER FLUID OVERLOAD 02/08/2015 FELICITA CEDEÑO MD Ot 285.2 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 02/08/2015 FELICITA CEDEÑO MD Ot 311 DEPRESSIVE DISORDER NEC 02/08/2015 FELICITA CEDEÑO MD Ot 327.2 3 OBSTRUCTIVE SLEEP APNEA (ADULT) (PEDIATR 02/08/2015 FELICITA CEDEÑO MD Ot 348.3 1 METABOLIC ENCEPHALOPATHY 02/08/2015 FELICITA CEDEÑO MD Ot 356.9 IDIO PERIPH NEURPTHY NOS 02/08/2015 FELICITA CEDEÑO MD Ot 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, UNSPEC, W CHR KD ST 02/08/2015 FELICITA CEDEÑO MD Ot 414.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 02/08/2015 FELICITA CEDEÑO MD Ot 477.9 ALLERGIC RHINITIS NOS 02/08/2015 FELICITA CEDEÑO MD Ot 492.8 EMPHYSEMA NEC 02/08/2015 FELICITA CEDEÑO MD Ot 514 PULM CONGEST/HYPOSTASIS 02/08/2015 FELICITA CEDEÑO MD Ot 518.8 1 ACUTE RESPIRATORY FAILURE 02/08/2015 FELICITA CEDEÑO MD Ot 530.8 1 ESOPHAGEAL REFLUX 02/08/2015 FELICITA CEDEÑO MD Ot 574.1 0 CHOLELITH W CHOLECYS NEC 02/08/2015 FELICITA CEDEÑO MD Ot 584.9 ACUTE RENAL FAILURE, UNSPECIFIED 02/08/2015 FELICITA CEDEÑO MD Ot 585.9 CHRONIC KIDNEY DISEASE, UNSPECIFIED 02/08/2015 FELICITA CEDEÑO MD Ot 599.0 URIN TRACT INFECTION NOS 02/08/2015 FELICITA CEDEÑO MD Ot 625.6 FEM STRESS INCONTINENCE 02/08/2015 FELICITA CEDEÑO MD Ot 787.2 0 DYSPHAGIA, UNSPECIFIED 02/08/2015 FELICITA CEDEÑO MD Ot 924.8 MULTIPLE CONTUSIONS NEC 02/08/2015 FELICITA CEDEÑO MD Ot 995.9 2 SEVERE SEPSIS 02/08/2015 FELICITA CEDEÑO MD Ot E849. 0 ACCIDENT IN HOME 02/08/2015 FELICITA CEDEÑO MD Ot E884. 4 FALL FROM BED 02/08/2015 FELICITA CEDEÑO MD Ot V46.2 SUPPLEMENTAL OXYGEN 02/08/2015 FELICITA CEDEÑO MD Ot V58.6 7 LONG-TERM (CURRENT) USE OF INSULIN 02/09/2015 ANGEL FLOWERS S BANQUET SUPERVISOR Ot 4 86 02/09/2015 ANGEL FLOWERS S BANQUET SUPERVISOR Ot 4 96 02/09/2015 ANGEL FLOWERS S BANQUET SUPERVISOR Ot 784.0 02/09/2015 ANGEL FLOWERS S BANQUET SUPERVISOR Ot 786.05 02/09/2015 ANGEL FLOWERS BANQUET SUPERVISOR Ot 786.2 02/14/2015 MIKE TY, LINDA E Ot 244.9 HYPOTHYROIDISM NOS 02/14/2015 MIKE TY, LINDA E Ot 250.6 0 DIAB W NEURO MANIFEST, TYPE II OR UNSPEC 02/14/2015 MIKE TY, LINDA E Ot 272.4 HYPERLIPIDEMIA NEC/NOS 02/14/2015 MIKE TY, LINDA E Ot 285.2 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 02/14/2015 MIKE TY, LINDA E Ot 311 DEPRESSIVE DISORDER NEC 02/14/2015 MIKE TY, LINDA E Ot 327.2 3 OBSTRUCTIVE SLEEP APNEA (ADULT) (PEDIATR 02/14/2015 MIKE TY, LINDA E Ot 348.3 0 ENCEPHALOPATHY, UNSPECIFIED 02/14/2015 MIKE TY, LINDA E Ot 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 02/14/2015 MIKE TY, LINDA E Ot 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, UNSPEC, W CHR KD ST 02/14/2015 MIKE TY, LINDA E Ot 414.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 02/14/2015 MIKE TY, LINDA E Ot 477.9 ALLERGIC RHINITIS NOS 02/14/2015 MIKE TY, LINDA E Ot 496 CHR AIRWAY OBSTRUCT NEC 02/14/2015 MIKE TY LINDA E Ot 575.1 0 CHOLECYSTITIS, NOS 02/14/2015 MIKE TY, LINDA E Ot 576.1 CHOLANGITIS 02/14/2015 MIKE TY, LINDA E Ot 585.9 CHRONIC KIDNEY DISEASE, UNSPECIFIED 02/14/2015 MIKE TY, LINDA E Ot 599.0 URIN TRACT INFECTION NOS 02/14/2015 MCKEON MD, LINDA E Ot 707.0 3 PRESSURE ULCER, LOWER BACK 02/14/2015 LINDA MCKEON MD Ot 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, STAGE II 02/14/2015 LINDA MCKEON MD Ot 780.7 9 OTH MALAISE FATIGUE 02/14/2015 LINDA MCKEON MD Ot V15.8 8 HISTORY OF FALL 02/14/2015 LINDA CMKEON MD Ot V46.2 SUPPLEMENTAL OXYGEN 02/14/2015 LINDA MCKEON MD Ot V57.8 9 REHABILITATION PROC NEC 02/14/2015 LINDA MCKEON MD Ot V58.6 7 LONG-TERM (CURRENT) USE OF INSULIN 02/15/2015 ANGEL FLOWERS BANQUET SUPERVISOR Ot 4 86 02/15/2015 ANGEL FLOWERS BANQUET SUPERVISOR Ot 4 96 02/15/2015 ANGEL FLOWERS BANQUET SUPERVISOR Ot 784.0 02/15/2015 ANGEL FLOWERS BANQUET SUPERVISOR Ot 786.05 02/15/2015 ANGEL FLOWERS BANQUET SUPERVISOR Ot 786.2 02/16/2015 NORMA, BOBAN N Ot [...] 02/24/2015 NORMA, BOBAN N Ot V58.69 03/15/2015 ANGEL FLOWERS BANQUET SUPERVISOR Ot 280.0 03/15/2015 ANGEL FLOWERS BANQUET SUPERVISOR Ot 285.21 03/15/2015 ANGEL FLOWERS BANQUET SUPERVISOR Ot 585.3 03/15/2015 FLOWERSANGEL Garza S BANQUET SUPERVISOR Ot 599.0 03/15/2015 FLOWERSANGEL S BANQUET SUPERVISOR Ot 793.11 03/15/2015 FLOWERSMIGUEL S BANQUET SUPERVISOR Ot V58.69 03/27/2015 FLOWERSMIGUEL S BANQUET SUPERVISOR Ot 280.0 03/27/2015 FLOWERSMIGUEL S BANQUET SUPERVISOR Ot 285.21 03/27/2015 FLOWERSMIGUEL S BANQUET SUPERVISOR Ot 585.3 03/27/2015 FLOWERSMIGUEL S BANQUET SUPERVISOR Ot 599.0 03/27/2015 FLOWERSMIGUEL S BANQUET SUPERVISOR Ot 793.11 03/27/2015 FLOWERSMIGUEL S BANQUET SUPERVISOR Ot V58.69 04/05/2015 FLOWERSMIGUEL S BANQUET SUPERVISOR Ot 280.0 04/05/2015 FLOWERSMIGUEL S BANQUET SUPERVISOR Ot 285.21 04/05/2015 FLOWERS, HIL S BANQUET SUPERVISOR Ot 585.3 04/05/2015 FLOWERS, HIL S BANQUET SUPERVISOR Ot 599.0 04/05/2015 FLOWERS, HIL S BANQUET SUPERVISOR Ot 793.11 04/05/2015 FLOWERS, HIL S BANQUET SUPERVISOR Ot V58.69 04/20/2015 FLOWERS, HIL S BANQUET SUPERVISOR Ot 280.0 04/20/2015 FLOWERS, HIL S BANQUET SUPERVISOR Ot 285.21 04/20/2015 FLOWERSANGEL Garza S BANQUET SUPERVISOR Ot 585.3 04/20/2015 FLOWERSMIGUEL S BANQUET SUPERVISOR Ot 599.0 04/20/2015 FLOWERSMIGUEL S BANQUET SUPERVISOR Ot 793.11 04/20/2015 FLOWERSMIGUEL S BANQUET SUPERVISOR Ot V58.69 04/25/2015 FLOWERSMIGUEL S BANQUET SUPERVISOR Ot 280.0 04/25/2015 FLOWERSMIGUEL S BANQUET SUPERVISOR Ot 285.21 04/25/2015 FLOWERSANGEL S BANQUET SUPERVISOR Ot 585.3 04/25/2015 FLOWERSMIGUEL S BANQUET SUPERVISOR Ot 599.0 04/25/2015 FLOWERSMIGUEL S BANQUET SUPERVISOR Ot 793.11 04/25/2015 FLOWERSMIGUEL S BANQUET SUPERVISOR Ot V58.69 04/26/2015 NORMA, BOBAN N Ot 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 04/26/2015 DINORA GREEN N Ot 585.3 CHRONIC KIDNEY DISEASE, STAGE III (MODER 04/26/2015 NORMADINORA REYES N Ot V58.69 OT MED,LT,CURRENT USE 04/28/2015 FLOWERSANGEL Garza S BANQUET SUPERVISOR Ot 280.0 04/28/2015 FLOWERS, HILAH S BANQUET SUPERVISOR Ot 285.21 04/28/2015 FLOWERS, HILAH S BANQUET SUPERVISOR Ot 585.3 04/28/2015 FLOWERS, HILAH S BANQUET SUPERVISOR Ot 599.0 04/28/2015 FLOWERS, HILAH S BANQUET SUPERVISOR Ot 793.11 04/28/2015 FLOWERS, HILAH S BANQUET SUPERVISOR Ot V58.69 05/02/2015 DINORA GREEN N Ot 285.21 05/02/2015 DINORA GREEN N Ot 585.3 05/02/2015 NORMADINORA REYES N Ot V58.69 05/10/2015 PATRICIA TY, JULIETTE Infante Ot 272. 4 05/10/2015 PATRICIA TY, JULIETTE Infante Ot 401. 9 05/10/2015 PATRICIA TY, JULIETTE Infante Ot 414. 9 05/10/2015 PATRICIA TY, JULIETTE Infante Ot 433. 10 05/15/2015 PATRICIA TY, JULIETTE Infante Ot 272. 4 05/15/2015 PATRICIA TY, JULIETTE Infante Ot 401. 9 05/15/2015 PATRICIA TY, JULIETTE Infante Ot 414. 9 05/15/2015 PATRICIA TY, JULIETTE Infante Ot 433. 10 06/05/2015 FELICITA CEDEÑO MD Ot E11.9 06/05/2015 FELICITA CEDEÑO MD Ot Z00.0 0 06/09/2015 FELICITA CEDEÑO MD Ot E11.9 06/09/2015 FELICITA CEDEÑO MD Ot Z00.0 0 06/28/2015 NORMA, DINORA N Ot 280.0 06/28/2015 NORMA BOBAN N Ot 285.21 06/28/2015 NORMA BOBRACHELLE N Ot 585.3 06/28/2015 NORMA, BOBRACHELLE N Ot D50.0 06/28/2015 NORMA BOBRACHELLE N Ot D63.1 06/28/2015 NORMA BOBRACHELLE N Ot N18.3 06/28/2015 DINORA GREEN N Ot V58.69 06/28/2015 DINORA GREEN N Ot Z79.899 07/07/2015 NORMADINORA REYES N Ot 280.0 07/07/2015 NORMADINORA REYES N Ot 285.21 07/07/2015 NORMADINORA REYES N Ot 585.3 07/07/2015 NORMADINORA REYES N Ot D50.0 07/07/2015 NORMADINORA REYES N Ot D63.1 07/07/2015 NORMADINORA REYES N Ot N18.3 07/07/2015 DINORA GREEN N Ot V58.69 07/07/2015 DINORA GREEN N Ot Z79.899 07/26/2015 DINORA GREEN N Ot 280.0 CHR BLOOD LOSS ANEMIA 07/26/2015 DINORA GREEN N Ot 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2 07/27/2015 KLARISSA MOSER CASTING MACHINE SET UP OPERATOR Ot J44.9 07/27/2015 KLARISSA MOSER CASTING MACHINE SET UP OPERATOR Ot R06.02 07/27/2015 KLARISSA MOSER CASTING MACHINE SET UP OPERATOR Ot R91.1 07/27/2015 KLARISSA MOSER CASTING MACHINE SET UP OPERATOR Ot G47.33 07/27/2015 KLARISSA MOSER CASTING MACHINE SET UP OPERATOR Ot I27.2 07/27/2015 KLARISSA MOSER CASTING MACHINE SET UP OPERATOR Ot J44.9 07/27/2015 KLARISSA MOSER CASTING MACHINE SET UP OPERATOR Ot R06.02 07/27/2015 KLARISSA MOSER CASTING MACHINE SET UP OPERATOR Ot R91.1 07/27/2015 ANGEL FLOWERS BANQUET SUPERVISOR Ot D50.0 07/27/2015 ANGEL FLOWERS BANQUET SUPERVISOR Ot D63.1 07/27/2015 ANGEL FLOWERS BANQUET SUPERVISOR Ot N18.3 07/27/2015 ANGEL FLOWERS BANQUET SUPERVISOR Ot Z79.899 08/03/2015 NORMA, BOBAN N Ot 280.0 08/03/2015 NORMA, BOBAN N Ot 285.21 08/03/2015 NORMA, BOBAN N Ot 585.3 08/03/2015 NORMA, BOBAN N Ot D50.0 08/03/2015 NORMA, BOBAN N Ot D63.1 08/03/2015 NORMA, BOBAN N Ot N18.3 08/03/2015 NORMA, BOBAN N Ot V58.69 08/03/2015 NORMA, BOBAN N Ot Z79.899 08/04/2015 NORMA, BOBAN N Ot D50.0 08/04/2015 NORMA, BOBAN N Ot D63.1 08/04/2015 NORMA, BOBAN N Ot N18.3 08/04/2015 NORMA, BOBAN N Ot Z79.899 08/07/2015 ANGEL FLOWERS BANQUET SUPERVISOR Ot D50.0 08/07/2015 ANGEL FLOWERS BANQUET SUPERVISOR Ot D63.1 08/07/2015 ANGEL FLOWERS BANQUET SUPERVISOR Ot N18.3 08/07/2015 ANGEL FLOWERS BANQUET SUPERVISOR Ot Z79.899 09/04/2015 ALTAGRACIA TY, DELILAH Borges Ot E03.9 09/04/2015 ALTAGRACIA TY, DELILAH Borges Ot E11.8 09/04/2015 ALTAGRACIA TY, DELILAH Borges Ot E03.9 09/04/2015 ALTAGRACIA TY, DELILAH Borges Ot E11.8 09/04/2015 ALTAGRACIA TY, DELILAH Borges Ot E03.9 09/04/2015 ALTAGRACIA TY, DELILAH Borges Ot E11.8 09/21/2015 ALTAGRACIA TY, DELILAH Borges Ot E03.9 09/21/2015 ALTAGRACIA TY, DELILAH Borges Ot E11.8 09/27/2015 GALA TY, FELICITA Borges Ot Z12.3 1 09/27/2015 ALTAGRACIA TY, DELILAH Borges Ot E03.9 09/27/2015 ALTAGRACIA TY, DELILAH Borges Ot E11.8 09/28/2015 KRISTIE MIGUELAH S BANQUET SUPERVISOR Ot D50.0 09/28/2015 FLOWERS, HILAH S BANQUET SUPERVISOR Ot D63.1 09/28/2015 FLOWERS, HILAH S BANQUET SUPERVISOR Ot N18.3 09/28/2015 FLOWERS, HILAH S BANQUET SUPERVISOR Ot Z79.899 09/29/2015 NORMA BOBAN N Ot D50.0 09/29/2015 NORMA, BOBAN N Ot D63.1 09/29/2015 NORMA BOBAN N Ot N18.3 09/29/2015 NORMA BOBAN N Ot Z79.899 10/02/2015 GALA TY, FELICITA Borges Ot Z12.3 1 10/02/2015 FLOWERS, HILAH S BANQUET SUPERVISOR Ot D50.0 10/02/2015 FLOWERS, HILAH S BANQUET SUPERVISOR Ot D63.1 10/02/2015 FLOWERS, HILAH S BANQUET SUPERVISOR Ot N18.3 10/02/2015 FLOWERS, HILAH S BANQUET SUPERVISOR Ot Z79.899 10/04/2015 NORMA BOBAN N Ot D50.0 10/04/2015 NORMA BOBAN N Ot D63.1 10/04/2015 NORMA, BOBAN N Ot N18.3 10/04/2015 NORMA BOBAN N Ot Z79.899 10/05/2015 GALA TY, FELICITA Borges Ot R51 10/24/2015 GALA TY, FELICITA Borges Ot R51 10/30/2015 GALA TY, FELICITA Borges Ot R51 11/01/2015 JOSIE GREENAN N Ot D50.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 11/01/2015 NORMADINORA REYES N Ot D63.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 11/01/2015 NORMADINORA REYES N Ot N18.3 CHRONIC KIDNEY DISEASE, STAGE 3 (MODERAT 11/01/2015 NORMA, BOBAN N Ot Z79.899 OTHER PENITENTIARY (CURRENT) DRUG THERAPY 11/03/2015 NORMA, BOBAN N Ot D50.0 11/03/2015 NORMA, BOBAN N Ot D63.1 11/03/2015 DINORA GREEN Casi Ot N18.3 11/03/2015 DINORA GREEN N Ot Z79.899 11/29/2015 JANA PALACIOS Ot I10 ESSENTIAL (PRIMARY) HYPERTENSION 11/29/2015 JANA PALACIOS Ot I10 ESSENTIAL (PRIMARY) HYPERTENSION 11/29/2015 JANA PALACIOS Ot I10 ESSENTIAL (PRIMARY) HYPERTENSION 11/30/2015 JANA PALACIOS Ot I10 ESSENTIAL (PRIMARY) HYPERTENSION 11/30/2015 JANA PALACIOS Ot I10 ESSENTIAL (PRIMARY) HYPERTENSION 11/30/2015 JANA PALACIOS Ot I25.10 ATHSCL HEART DISEASE OF [place] CORONARY 11/30/2015 JANA PALACIOS Ot I65.23 OCCLUSION AND STENOSIS OF [place] 11/30/2015 JANA PALACIOS Ot R07.89 OTHER CHEST PAIN 11/30/2015 MIRTA TORRES APRN Ot M25.511 PAIN IN RIGHT SHOULDER 11/30/2015 MIRTA TORRES APRN Ot R07.9 CHEST PAIN, UNSPECIFIED 12/19/2015 FELICITA CEDEÑO MD, Ot B35.8 OTHER DERMATOPHYTOSES 12/19/2015 FELICITA CEDEÑO MD, Ot D63.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 12/19/2015 FELICITA CEDEÑO MD, Ot E03.9 HYPOTHYROIDISM, UNSPECIFIED 12/19/2015 FELICITA CEDEÑO MD, Ot E11.4 2 TYPE 2 DIABETES MELLITUS WITH DIABETIC P 12/19/2015 FELICITA CEDEÑO MD, Ot E11.6 5 TYPE 2 DIABETES MELLITUS WITH HYPERGLYCE 12/19/2015 FELICITA CEDEÑO MD, Ot E78.5 HYPERLIPIDEMIA, UNSPECIFIED 12/19/2015 FELICITA CEDEÑO MD, Ot E87.1 HYPO-OSMOLALITY AND HYPONATREMIA 12/19/2015 FELICITA CEDEÑO MD, Ot F32.9 MAJOR DEPRESSIVE DISORDER, SINGLE EPISOD 12/19/2015 FELICITA CEDEÑO MD, Ot F41.9 ANXIETY DISORDER, UNSPECIFIED 12/19/2015 FELICITA CEDEÑO MD, Ot G47.3 3 OBSTRUCTIVE SLEEP APNEA (ADULT) (PEDIATR 12/19/2015 FELICITA CEDEÑO MD, Ot I50.9 HEART FAILURE, UNSPECIFIED 12/19/2015 FELICITA CEDEÑO MD, Ot J18.9 PNEUMONIA, UNSPECIFIED ORGANISM 12/19/2015 FELICITA CEDEÑO MD, Ot J44.9 CHRONIC OBSTRUCTIVE PULMONARY DISEASE, U 12/19/2015 FELICITA CEDEÑO MD, Ot K21.9 GASTRO-ESOPHAGEAL REFLUX DISEASE WITHOUT 12/19/2015 FELICITA CEDEÑO MD, Ot L89.1 52 PRESSURE ULCER OF [place], STAGE 2 12/19/2015 FELICITA CEDEÑO MD Ot N17.9 ACUTE KIDNEY FAILURE, UNSPECIFIED 12/19/2015 FELICITA CEDEÑO MD, Ot N18.9 CHRONIC KIDNEY DISEASE, UNSPECIFIED 12/19/2015 FELICITA CEDEÑO MD, Ot Z79.4 PENITENTIARY (CURRENT) USE OF INSULIN 12/19/2015 DINORA GREEN Ot D50.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 12/19/2015 DINORA GREEN Ot D63.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 12/19/2015 DINORA GREEN Ot N18.3 CHRONIC KIDNEY DISEASE, STAGE 3 (MODERAT 12/19/2015 DINORA GREEN Ot Z79.899 OTHER PENITENTIARY (CURRENT) DRUG THERAPY 12/19/2015 JANA PALACIOS Ot I10 ESSENTIAL (PRIMARY) HYPERTENSION 12/19/2015 JANA PALACIOS Ot I25.10 ATHSCL HEART DISEASE OF [place] CORONARY 12/19/2015 JANA PALACIOS Ot I65.23 OCCLUSION [...] (MODERAT 12/26/2015 DINORA GREEN Ot Z79.899 OTHER RATE QUOTING OPERATOR (CURRENT) DRUG THERAPY 12/26/2015 JANA PALACIOS Ot I10 ESSENTIAL (PRIMARY) HYPERTENSION 12/26/2015 JANA PALACIOS Ot I25.10 ATHSCL HEART DISEASE OF [place] CORONARY 12/26/2015 JANA PALACIOS Ot I65.23 OCCLUSION AND STENOSIS OF [place] 12/26/2015 JANA PALACIOS Ot R07.89 OTHER CHEST PAIN 12/26/2015 MIRTA TORRES CASTING MACHINE SET UP OPERATOR Ot M25.511 PAIN IN RIGHT SHOULDER 12/26/2015 MIRTA TORRES CASTING MACHINE SET UP OPERATOR Ot R07.9 CHEST PAIN, UNSPECIFIED 12/27/2015 Ot 250.00 SEEMA B ЮЛИЯ WO COMPL, TYPE II OR UNSPEC TY 12/27/2015 Ot 272.4 HYPE RLIPIDEMIA NEC/NOS 12/27/2015 MIRTA TORRES CASTING MACHINE SET UP OPERATOR Ot 599.0 URIN TRACT INFECTION NOS 01/15/2016 ANGEL FLOWERS BANQUET SUPERVISOR Ot D50.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 01/15/2016 ANGEL FLOWERS BANQUET SUPERVISOR Ot D63.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 01/15/2016 ANGEL FLOWERS BANQUET SUPERVISOR Ot N18.3 CHRONIC KIDNEY DISEASE, STAGE 3 (MODERAT 01/15/2016 ANGEL FLOWERS BANQUET SUPERVISOR Ot Z79.899 OTHER RATE QUOTING OPERATOR (CURRENT) DRUG THERAPY 01/18/2016 FELICITA CEDEÑO MD, [...] WITHOUT COMPLIC 01/19/2016 FELICITA CEDEÑO MD, Ot E05.9 0 THYROTOXICOSIS, 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 THYROTOXIC 01/19/2016 FELICITA CEDEÑO MD, Ot E11.9 TYPE 2 DIABETES MELLITUS WITHOUT COMPLIC 01/19/2016 FELICITA CEDEÑO MD, Ot E78.4 OTHER HYPERLIPIDEMIA 01/19/2016 FELICITA CEDEÑO MD, Ot R94.6 ABNORMAL RESULTS OF THYROID FUNCTION HSAY 01/19/2016 DINORA GREEN Ot D50.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 01/19/2016 NORMA, BOBAN N Ot D63.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 01/19/2016 DINORA GREEN N Ot N18.3 CHRONIC KIDNEY DISEASE, STAGE 3 (MODERAT 01/19/2016 NORMA, JOSIERACHELLE N Ot Z79.899 OTHER PENITENTIARY (CURRENT) DRUG THERAPY 01/20/2016 FELICITA CEDEÑO MD Ot E05.9 0 THYROTOXICOSIS, 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 THYROTOXIC 01/20/2016 FELICITA CEDEÑO MD Ot E11.9 TYPE 2 DIABETES MELLITUS WITHOUT COMPLIC 01/20/2016 FELICITA CEDEÑO MD Ot E78.4 OTHER HYPERLIPIDEMIA 01/20/2016 FELICITA CEDEÑO MD Ot R94.6 ABNORMAL RESULTS OF THYROID FUNCTION [place] 01/31/2016 NORMA JOSIERACHELLE N Ot D50.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 01/31/2016 NORMA, JOSIERACHELLE N Ot D63.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 01/31/2016 DINORA GREEN N Ot N18.3 CHRONIC KIDNEY DISEASE, STAGE 3 (MODERAT 01/31/2016 NORMA JOSIERACHELLE N Ot Z79.899 OTHER PENITENTIARY (CURRENT) DRUG THERAPY 01/31/2016 ANGEL FLOWERS BANQUET SUPERVISOR Ot D50.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 01/31/2016 ANGEL FLOWERS BANQUET SUPERVISOR Ot D63.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 01/31/2016 ANGEL FLOWERS BANQUET SUPERVISOR Ot N18.3 CHRONIC KIDNEY DISEASE, STAGE 3 (MODERAT 01/31/2016 ANGEL FLOWERS BANQUET SUPERVISOR Ot Z79.899 OTHER RATE QUOTING OPERATOR (CURRENT) DRUG THERAPY 02/05/2016 TAPAN HUI MD Ot R05 COUGH 02/05/2016 TAPAN HUI MD Ot R13.19 OTHER DYSPHAGIA 02/05/2016 TAPAN HUI MD Ot R49 .0 DYSPHONIA 02/06/2016 ANGEL FLOWERSP Ot D50.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 02/06/2016 ANGEL FLOWERS BANQUET SUPERVISOR Ot D63.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 02/06/2016 ANGEL FLOWERS BANQUET SUPERVISOR Ot N18.3 CHRONIC KIDNEY DISEASE, STAGE 3 (MODERAT 02/06/2016 ANGEL FLOWERSP Ot Z79.899 OTHER RATE QUOTING OPERATOR (CURRENT) DRUG THERAPY 02/06/2016 TAPAN HUI MD Ot R05 COUGH 02/06/2016 TAPAN HUI MD Ot R13.19 OTHER DYSPHAGIA 02/06/2016 TAPAN HUI MD Ot R49 .0 DYSPHONIA 02/06/2016 TAPAN HUI MD Ot R49 .0 DYSPHONIA 02/07/2016 FELICITA CEDEÑO MD Ot E05.9 0 THYROTOXICOSIS, 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 THYROTOXIC 02/07/2016 FELICITA CEDEÑO MD, Ot E11.9 TYPE 2 DIABETES MELLITUS WITHOUT COMPLIC 02/07/2016 FELICITA CEDEÑO MD Ot E78.4 OTHER HYPERLIPIDEMIA 02/07/2016 FELICITA CEDEÑO MD Ot R94.6 ABNORMAL RESULTS OF THYROID FUNCTION [place] 02/08/2016 TAPAN HUI MD Ot R49 .0 DYSPHONIA 02/09/2016 DINORA GREEN Ot D50.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 02/09/2016 DINORA GREEN Ot D63.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 02/09/2016 DINORA GREEN Ot N18.3 CHRONIC KIDNEY DISEASE, STAGE 3 (MODERAT 02/09/2016 NORMADINORA REYES Ot Z79.899 OTHER PENITENTIARY (CURRENT) DRUG THERAPY 02/12/2016 FELICITA CEDEÑO MD Ot E05.9 0 THYROTOXICOSIS, 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 THYROTOXIC 02/12/2016 FELICITA CEDEÑO MD, Ot E11.9 TYPE 2 DIABETES MELLITUS WITHOUT COMPLIC 02/12/2016 FELICITA CEDEÑO MD, Ot E78.4 OTHER HYPERLIPIDEMIA 02/12/2016 FELICITA CEDEÑO MD Ot R94.6 ABNORMAL RESULTS OF THYROID FUNCTION [place]AY 02/16/2016 DELILAH HARE Ot D64.9 ANEMIA, UNSPECIFIED 02/16/2016 DELILAH HARE Ot E87.1 HYPO-OSMOLALITY AND HYPONATREMIA 02/19/2016 TAPAN HUI MD Ot R49 .0 DYSPHONIA 02/20/2016 DELILAH HARE Ot D64.9 ANEMIA, UNSPECIFIED 02/20/2016 DELILAH HARE Ot E87.1 HYPO-OSMOLALITY AND HYPONATREMIA 02/20/2016 DELILAH HARE Ot D64.9 ANEMIA, UNSPECIFIED 02/20/2016 DELILAH HARE Ot E87.1 HYPO-OSMOLALITY AND HYPONATREMIA 02/20/2016 TUCKER PA, DELILAH L Ot D64.9 ANEMIA, UNSPECIFIED 02/20/2016 TUCKER PA, DELILAH L Ot E87.1 HYPO-OSMOLALITY AND HYPONATREMIA 02/20/2016 TUCKER PA, DELILAH L Ot D64.9 ANEMIA, UNSPECIFIED 02/20/2016 TUCKER PA, DELILAH L Ot E87.1 HYPO-OSMOLALITY AND HYPONATREMIA 02/20/2016 TUCKER PA, DELILAH L Ot D64.9 ANEMIA, UNSPECIFIED 02/20/2016 TUCKER MENDEZ, DELILAH L Ot E87.1 HYPO-OSMOLALITY AND HYPONATREMIA 02/20/2016 TUCKER PA, DELILAH L Ot D64.9 ANEMIA, UNSPECIFIED 02/20/2016 TUCKER PA, DELILAH L Ot E87.1 HYPO-OSMOLALITY AND HYPONATREMIA 02/21/2016 EZ TY, TAPAN Carvajal Ot R49 .0 DYSPHONIA 02/26/2016 GALA TY, FRANKLIN Kellogg Ot 787. 02 NAUSEA ALONE 03/07/2016 TAPAN HUI MD Ot R05 COUGH 03/07/2016 TAPAN HUI MD Ot R13.19 OTHER DYSPHAGIA 03/07/2016 EZ TY, TAPAN Carvajal Ot R49 .0 DYSPHONIA 03/08/2016 FELICITA CEDEÑO MD Ot E05.9 0 THYROTOXICOSIS, 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 THYROTOXIC 03/08/2016 FELICITA CEDEÑO MD Ot E05.9 0 THYROTOXICOSIS, 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 THYROTOXIC 03/08/2016 FELICITA CEDEÑO MD Ot E05.9 0 THYROTOXICOSIS, 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 THYROTOXIC 03/08/2016 FELICITA CEDEÑO MD Ot E05.9 0 THYROTOXICOSIS, 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 THYROTOXIC 03/08/2016 FELICITA CEDEÑO MD Ot E05.9 0 THYROTOXICOSIS, 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 THYROTOXIC 03/08/2016 FELICITA CEDEÑO MD Ot E05.9 0 THYROTOXICOSIS, 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 THYROTOXIC 03/12/2016 TAPAN HUI MD Ot R05 COUGH 03/12/2016 TAPAN HUI MD Ot R13.19 OTHER DYSPHAGIA 03/12/2016 TAPAN HUI MD Ot R49 .0 DYSPHONIA 03/13/2016 FELICITA CEDEÑO MD Ot E05.9 0 THYROTOXICOSIS, 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 THYROTOXIC 03/14/2016 TAPAN HUI MD Ot R49 .0 DYSPHONIA 03/15/2016 ANGEL FLOWERS BANQUET SUPERVISOR Ot D50.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 03/15/2016 ANGEL FLOWERS BANQUET SUPERVISOR Ot D63.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 03/15/2016 ANGEL FLOWERS BANQUET SUPERVISOR Ot N18.3 CHRONIC KIDNEY DISEASE, STAGE 3 (MODERAT 03/15/2016 ANGEL FLOWERS BANQUET SUPERVISOR Ot Z79.899 OTHER PENITENTIARY (CURRENT) DRUG THERAPY 03/15/2016 Ot 285.9 ANEM IA NOS 03/15/2016 Ot 786.05 GREG RTNESS OF BREATH 03/15/2016 Ot 786.07 WHE EZING 03/15/2016 Ot 786.2 COUGH 03/15/2016 Ot 285.9 ANEM IA NOS 03/15/2016 Ot 244.8 ACQU IRED HYPOTHYROID NEC 03/15/2016 Ot 250.00 SEEMA B ЮЛИЯ WO COMPL, TYPE II OR UNSPEC TY 03/15/2016 Ot 401.1 YOLI GN HYPERTENSION 03/15/2016 Ot 272.4 HYPE RLIPIDEMIA NEC/NOS 03/15/2016 Ot 401.9 HYPE RTENSION NOS 03/15/2016 Ot 414.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 OF [place] CORON 03/15/2016 Ot V58.63 MITESH G- TERM(CURRENT)USE OF ANTIPLATELET/AN 03/15/2016 Ot V58.66 MITESH G-TERM (CURRENT) USE OF ASPIRIN 03/15/2016 Ot V58.69 OTH MED,LT,CURRENT USE 03/15/2016 Ot 273.4 [id number] DEFICIENCY 03/15/2016 Ot 397.0 TRIC USPID VALVE DISEASE 03/15/2016 Ot 401.9 HYPE RTENSION NOS 03/15/2016 Ot 424.0 MITR AL VALVE DISORDER 03/15/2016 Ot 272.4 HYPE RLIPIDEMIA NEC/NOS 03/15/2016 Ot 401.9 HYPE RTENSION NOS 03/15/2016 Ot 414.00 COR ON ATHEROSCLER NOS TYPE VESSEL, NATIV 03/15/2016 Ot 272.4 HYPE RLIPIDEMIA NEC/NOS 03/15/2016 Ot 401.9 HYPE RTENSION NOS 03/15/2016 Ot 414.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 OF [place] CORON 03/15/[address] PAIN NOS 03/15/2016 Ot 791.9 ABN URINE FINDINGS NEC 03/15/2016 Ot V72.63 PRE -PROCEDURAL LABORATORY EXAMINATION 03/15/2016 Ot V72.81 [id number] CARDIOVASCULAR 03/15/2016 Ot V76.12 OTH SCREEN MAMMO- MALIGN NEOPLASM OF [place] 03/15/2016 Ot 786.09 RES PIRATORY ABNORM NEC 03/15/2016 Ot 250.00 SEEMA B ЮЛИЯ WO COMPL, TYPE II OR UNSPEC TY 03/15/2016 Ot 250.00 SEEMA B ЮЛИЯ WO COMPL, TYPE II OR UNSPEC TY 03/15/2016 Ot 401.1 YOLI GN HYPERTENSION 03/15/2016 Ot 272.4 HYPE RLIPIDEMIA NEC/NOS 03/15/2016 Ot 401.9 HYPE RTENSION NOS 03/15/2016 Ot 414.00 COR ON ATHEROSCLER NOS TYPE VESSEL, NATIV 03/15/2016 Ot 996.43 BRO SUDEEP PROSTHETIC JOINT IMPLANT 03/15/2016 Ot V43.65 KNE E JOINT REPLACEMENT STATUS 03/15/2016 Ot 721.3 LUMB OSACRAL SPONDYLOSIS 03/15/2016 Ot 738.4 ACQ SPONDYLOLISTHESIS 03/15/2016 Ot 250.00 SEEMA B ЮЛИЯ WO COMPL, TYPE II OR UNSPEC TY 03/15/2016 Ot 401.1 YOLI GN HYPERTENSION 03/15/2016 Ot 787.91 SEEMA RRHEA 03/15/2016 Ot 787.91 SEEMA RRHEA 03/15/2016 Ot 244.9 HYPO THYROIDISM NOS 03/15/2016 Ot 250.00 SEEMA B ЮЛИЯ WO COMPL, TYPE II OR UNSPEC TY 03/15/2016 Ot 272.4 HYPE RLIPIDEMIA NEC/NOS 03/15/2016 Ot 401.1 YOLI GN HYPERTENSION 03/15/2016 Ot V49.81 ASY MPT POSTMENOPAUSAL STATUS (AGE-RELATE 03/15/2016 Ot V82.81 SCR EENING FOR OSTEOPOROSIS 03/15/2016 Ot 280.0 CHR BLOOD LOSS ANEMIA 03/15/2016 Ot 285.21 ANE ASPEN IN CHRONIC KIDNEY DISEASE 03/15/2016 Ot 465.9 ACUT E URI NOS 03/15/2016 Ot 585.3 SERVICE OBSERVER CHIEF LORI KIDNEY DISEASE, STAGE III (MODER 03/15/2016 Ot 787.91 SEEMA RRHEA 03/15/2016 Ot V58.69 OTH MED,LT,CURRENT USE 03/15/2016 Ot 793.82 INC ONCLUSIVE MAMMOGRAM 03/15/2016 Ot V76.12 OTH SCREEN MAMMO- MALIGN NEOPLASM OF [place] 03/15/2016 Ot 793.89 OTH (ABN) FINDINGS ON RADIOLOGICAL EXAMI 03/15/2016 Ot 272.4 HYPE RLIPIDEMIA NEC/NOS 03/15/2016 Ot 414.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 OF [place] CORON 03/15/2016 Ot 812.40 FX LOWER HUMERUS NOS-CL 03/15/2016 Ot E000.8 OTH ER EXTERNAL CAUSE STATUS 03/15/2016 Ot E001.0 ACT IVITIES INVOLVING WALKING, MARCHING A 03/15/2016 Ot E849.6 ACC IDENT IN PUBLIC BLDG 03/15/2016 Ot E885.9 FAL L FROM SLIPPING, TRIPPING, OR STUMBLI 03/15/2016 Ot V72.84 EXA M PRE- OPERATIVE NOS 03/15/2016 ANGEL FLOWERSP Ot 793.80 UNSPEC ABNORMAL MAMMOGRAM 03/15/2016 ANGEL FLOWERSP Ot V67.9 FOLLOW-UP EXAM NOS 03/15/2016 Ot 250.00 SEEMA B ЮЛИЯ WO COMPL, TYPE II OR UNSPEC TY 03/15/2016 Ot 272.4 HYPE RLIPIDEMIA NEC/NOS 03/15/2016 Ot 401.9 HYPE RTENSION NOS 03/15/2016 ANGEL FLOWERSP Ot 280.9 IRON DEFIC ANEMIA NOS 03/15/2016 ANGEL FLOWERS BANQUET SUPERVISOR Ot 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 03/15/2016 ANGEL FLOWERSP Ot 414.00 CORON ATHEROSCLER NOS TYPE VESSEL, NATIV 03/15/2016 ANGEL FLOWERSP Ot 585.3 CHRONIC KIDNEY DISEASE, STAGE III (MODER 03/15/2016 ANGEL FLOWERSP Ot 599.0 URIN TRACT INFECTION NOS 03/15/2016 ANGEL FLOWERSP Ot V58.69 OTH MED,LT,CURRENT USE 03/15/2016 ANGEL FLOWERSP Ot 280.0 CHR BLOOD LOSS ANEMIA 03/15/2016 ANGEL FLOWERS BANQUET SUPERVISOR Ot 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 03/15/2016 ANGEL FLOWERS BANQUET SUPERVISOR Ot 414.00 CORON ATHEROSCLER NOS TYPE VESSEL, NATIV 03/15/2016 ANGEL FLOWERSP Ot 585.3 CHRONIC KIDNEY DISEASE, STAGE III (MODER 03/15/2016 ANGEL FLOWERS BANQUET SUPERVISOR Ot V58.69 OTH MED,LT,CURRENT USE 03/15/2016 DINORA GREEN Ot 793.89 OTH (ABN) FINDINGS ON RADIOLOGICAL [...] PALPITATIONS 03/15/2016 EZ TY, TAPAN P Ot 473 .9 CHRONIC SINUSITIS NOS 03/15/2016 SAURABH TY, PAIGE Benitez Ot 786.07 WHEEZING 03/15/2016 PAIGE WILEY MD Ot 786.2 COUGH 03/15/2016 PATRICIA TY, JULIETTE Infante Ot 272. 4 HYPERLIPIDEMIA NEC/NOS 03/15/2016 PATRICIA TY, JULIETTE Infante Ot 414. 01 CORONARY ATHEROSCLEROSIS OF [place] CORON 03/15/2016 ANGEL FLOWERS BANQUET SUPERVISOR Ot 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 03/15/2016 ANGEL FLOWERS BANQUET SUPERVISOR Ot 585.3 CHRONIC KIDNEY DISEASE, STAGE III (MODER 03/15/2016 ANGEL FLOWERS BANQUET SUPERVISOR Ot V58.69 OTH MED,LT,CURRENT USE 03/15/2016 ANGEL FLOWERS BANQUET SUPERVISOR Ot 429.3 CARDIOMEGALY 03/15/2016 ANGEL FLOWERS BANQUET SUPERVISOR Ot 786.09 RESPIRATORY ABNORM NEC 03/15/2016 ANGEL FLOWERS BANQUET SUPERVISOR Ot 786.2 COUGH 03/15/2016 ANGEL FLOWERS BANQUET SUPERVISOR Ot 280.9 IRON DEFIC ANEMIA NOS 03/15/2016 ANGEL FLOWERS BANQUET SUPERVISOR Ot 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 03/15/2016 ANGEL FLOWERS S BANQUET SUPERVISOR Ot 585.3 CHRONIC KIDNEY DISEASE, STAGE III (MODER 03/15/2016 ANGEL FLOWERS S BANQUET SUPERVISOR Ot V58.69 OTH MED,LT,CURRENT USE 03/15/2016 DELILAH FRIAS MD Ot 250.92 DIAB W UNSPEC COMPL, TYPE II OR UNSPEC T 03/15/2016 DELILAH FRIAS MD Ot 272.4 HYPERLIPIDEMIA NEC/NOS 03/15/2016 DELILAH FRIAS MD Ot 355.9 MONONEURITIS NOS 03/15/2016 FLOWERS, HILAH S BANQUET SUPERVISOR Ot 280.9 IRON DEFIC ANEMIA NOS 03/15/2016 FLOWERS HILAH S BANQUET SUPERVISOR Ot 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 03/15/2016 ANGEL FLOWERS S BANQUET SUPERVISOR Ot 585.3 CHRONIC KIDNEY DISEASE, STAGE III (MODER 03/15/2016 FLOWERSANGEL Garza S BANQUET SUPERVISOR Ot V58.69 OTH MED,LT,CURRENT USE 03/15/2016 FLOWERSANGEL Garza S BANQUET SUPERVISOR Ot 280.9 IRON DEFIC ANEMIA NOS 03/15/2016 FLOWERS HILAH S BANQUET SUPERVISOR Ot 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 03/15/2016 FLOWERS, HILAH S BANQUET SUPERVISOR Ot 585.3 CHRONIC KIDNEY DISEASE, STAGE III (MODER 03/15/2016 FLOWERSANGEL Garza S BANQUET SUPERVISOR Ot V58.69 OTH MED,LT,CURRENT USE 03/15/2016 LEXIE GONZALES BANQUET SUPERVISOR Ot 496 CHR AIRWAY OBSTRUCT NEC 03/15/2016 LEXIE GONZALES BANQUET SUPERVISOR Ot 786.39 OTHER HEMOPTYSIS 03/15/2016 LEXIE GONZALES BANQUET SUPERVISOR Ot 786.2 COUGH 03/15/2016 LEXIE GONZALES BANQUET SUPERVISOR Ot 786.30 HEMOPTYSIS, UNSPECIFIED 03/15/2016 LEXIE GONZALES BANQUET SUPERVISOR Ot 793.11 SOLITARY PULMONARY NODULE 03/15/2016 LEXIE GONZALES BANQUET SUPERVISOR Ot 786.39 OTHER HEMOPTYSIS 03/15/2016 JULIETTE GOMEZ MD Ot 272. 4 HYPERLIPIDEMIA NEC/NOS 03/15/2016 JULIETTE GOMEZ MD Ot 401. 9 HYPERTENSION NOS 03/15/2016 JULIETTE GOMEZ MD Ot 414. 00 CORON ATHEROSCLER NOS TYPE VESSEL, NATIV 03/15/2016 JULIETTE GOMEZ MD Ot 272. 4 HYPERLIPIDEMIA NEC/NOS 03/15/2016 PATRICIA TY, JULIETTE Infante Ot 401. 9 HYPERTENSION NOS 03/15/2016 JULIETTE GOMEZ MD Ot 414. 00 CORON ATHEROSCLER NOS TYPE VESSEL, NATIV 03/15/2016 Ot 496 CHR AI RWAY OBSTRUCT NEC 03/15/2016 Ot 786.05 GREG RTNESS OF BREATH 03/15/2016 Ot 786.2 COUGH 03/15/2016 AR ALLEN DO Ot 496 CHR AIRWAY OBSTRUCT NEC 03/15/2016 AR ALLEN DO Ot 786. 05 SHORTNESS OF BREATH 03/15/2016 AR ALLEN DO Ot 786. 2 COUGH 03/15/2016 ANGEL FLOWERS BANQUET SUPERVISOR Ot 280.9 IRON DEFIC ANEMIA NOS 03/15/2016 ANGLE FLOWERS BANQUET SUPERVISOR Ot 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 03/15/2016 ANGEL FLOWERS BANQUET SUPERVISOR Ot 585.3 CHRONIC KIDNEY DISEASE, STAGE III (MODER 03/15/2016 ANGEL FLOWERS BANQUET SUPERVISOR Ot 780.60 FEVER, UNSPECIFIED 03/15/2016 ANGEL FLOWERS BANQUET SUPERVISOR Ot 787.01 NAUSEA WITH VOMITING 03/15/2016 ANGEL FLOWERS BANQUET SUPERVISOR Ot 787.91 DIARRHEA 03/15/2016 ANGEL FLOWERS BANQUET SUPERVISOR Ot V58.69 OTH MED,LT,CURRENT USE 03/15/2016 GALA TY, FELICITA Borges Ot V76.1 2 OTH SCREEN MAMMO-MALIGN NEOPLASM OF [place] 03/15/2016 MIRTA TORRES APRN Ot 786.2 COUGH 03/15/2016 Ot 280.9 IRON DEFIC ANEMIA NOS 03/15/2016 Ot 285.21 ANE ASPEN IN CHRONIC KIDNEY DISEASE 03/15/2016 Ot 585.4 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 9 ADRENAL DISORDER N0S 03/15/2016 AR ALLEN DO Ot 486 PNEUMONIA, ORGANISM NOS 03/15/2016 AR ALLEN DO Ot 496 CHR AIRWAY OBSTRUCT NEC 03/15/2016 AR ALLEN DO Ot 562. 10 DIVERTICULOSIS COLON (W/O MENT OF HEMORR 03/15/2016 AR ALLEN DO Ot 786. 05 SHORTNESS OF BREATH 03/15/2016 AR ALLEN DO Ot 786. 2 COUGH 03/15/2016 AR ALLEN DO Ot 793. 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 03/15/2016 Ot 496 CHR AI RWAY OBSTRUCT NEC 03/15/2016 Ot 244.9 HYPO THYROIDISM NOS 03/15/2016 ANGEL FLOWERS BANQUET SUPERVISOR Ot 280.9 IRON DEFIC ANEMIA NOS 03/15/2016 ANGEL FLOWERS S BANQUET SUPERVISOR Ot 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 03/15/2016 ANGEL FLOWERS BANQUET SUPERVISOR Ot 585.4 CHRONIC KIDNEY DISEASE, STAGE IV (SEVERE 03/15/2016 ANGEL FLOWERS BANQUET SUPERVISOR Ot 793.11 SOLITARY PULMONARY NODULE 03/15/2016 ANGEL FLOWERS BANQUET SUPERVISOR Ot V58.69 OTH MED,LT,CURRENT USE 03/15/2016 ANGEL FLOWERS BANQUET SUPERVISOR Ot 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 03/15/2016 ANGEL FLOWERS S BANQUET SUPERVISOR Ot 585.4 CHRONIC KIDNEY DISEASE, STAGE IV (SEVERE 03/15/2016 ANGEL FLOWERS BANQUET SUPERVISOR Ot V58.69 OTH MED,LT,CURRENT USE 03/15/2016 ANGEL FLOWERS BANQUET SUPERVISOR Ot 4 86 PNEUMONIA, ORGANISM NOS 03/15/2016 ANGEL FLOWERS BANQUET SUPERVISOR Ot 4 96 CHR AIRWAY OBSTRUCT NEC 03/15/2016 ANGEL FLOWERS BANQUET SUPERVISOR Ot 784.0 HEADACHE 03/15/2016 ANGEL FLOWERS BANQUET SUPERVISOR Ot 786.05 SHORTNESS OF BREATH 03/15/2016 ANGEL FLOWERS BANQUET SUPERVISOR Ot 786.2 COUGH 03/15/2016 KLARISSA MOSER CASTING MACHINE SET UP OPERATOR Ot G47.33 OBSTRUCTIVE SLEEP APNEA (ADULT) (PEDIATR 03/15/2016 KLARISSA MOSER CASTING MACHINE SET UP OPERATOR Ot I27.2 OTHER SECONDARY PULMONARY HYPERTENSION 03/15/2016 KLARISSA MOSER CASTING MACHINE SET UP OPERATOR Ot 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 05 SHORTNESS OF BREATH 03/15/2016 AR ALLEN DO Ot 786. 2 COUGH 03/15/2016 FELICITA CEDEÑO MD Ot 298.9 PSYCHOSIS NOS 03/15/2016 FELICITA CEDEÑO MD Ot 959.0 1 HEAD INJURY, NOS 03/15/2016 FELICITA CEDEÑO MD Ot E000. 8 OTHER EXTERNAL CAUSE STATUS 03/15/2016 FELICITA CEDEÑO MD Ot E888. 9 FALL NOS 03/15/2016 ANGEL FLOWERS BANQUET SUPERVISOR Ot 280.0 CHR BLOOD LOSS ANEMIA 03/15/2016 ANGEL FLOWERS BANQUET SUPERVISOR Ot 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 03/15/2016 ANGEL FLOWERS BANQUET SUPERVISOR Ot 585.3 CHRONIC KIDNEY DISEASE, STAGE III (MODER 03/15/2016 ANGEL FLOWERS BANQUET SUPERVISOR Ot 599.0 URIN TRACT INFECTION NOS 03/15/2016 ANGEL FLOWERS BANQUET SUPERVISOR Ot 793.11 SOLITARY PULMONARY NODULE 03/15/2016 ANGEL FLOWERS BANQUET SUPERVISOR Ot V58.69 OTH MED,LT,CURRENT USE 03/15/2016 MIRTA TORRES CASTING MACHINE SET UP OPERATOR Ot 599.0 URIN TRACT INFECTION NOS 03/15/2016 JULIETTE GOMEZ MD Ot 272. 4 HYPERLIPIDEMIA NEC/NOS 03/15/2016 JULIETTE GOMEZ MD Ot 401. 9 HYPERTENSION NOS 03/15/2016 JULIETTE GOMEZ MD Ot 414. 9 CHR ISCHEMIC HRT DIS NOS 03/15/2016 PATRICIA TY, JULIETTE Infante Ot 433. 10 CAROTID ARTERY OCCLUSION W O CEREBRAL IN 03/15/2016 FELICITA CEDEÑO MD Ot E11.9 TYPE 2 DIABETES MELLITUS WITHOUT COMPLIC 03/15/2016 FELICITA CEDEÑO MD Ot Z00.0 0 ENCNTR FOR GENERAL ADULT MEDICAL EXAM W/ 03/15/2016 ANGEL FLOWERS BANQUET SUPERVISOR Ot D50.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 03/15/2016 ANGEL FLOWERS BANQUET SUPERVISOR Ot D63.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 03/15/2016 ANGEL FLOWERS BANQUET SUPERVISOR Ot N18.3 CHRONIC KIDNEY DISEASE, STAGE 3 (MODERAT 03/15/2016 ANGEL FLOWERS BANQUET SUPERVISOR Ot Z79.899 OTHER PENITENTIARY (CURRENT) DRUG THERAPY 03/15/2016 FELICITA CEDEÑO MD Ot Z12.3 1 ENCNTR SCREEN MAMMOGRAM FOR MALIGNANT NE 03/15/2016 DELILAH FRIAS MD Ot E03.9 HYPOTHYROIDISM, UNSPECIFIED 03/15/2016 DELILAH FRIAS MD Ot E11.8 TYPE 2 DIABETES MELLITUS WITH UNSPECIFIE 03/15/2016 ANGEL FLOWERS BANQUET SUPERVISOR Ot D50.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 03/15/2016 ANGEL FLOWERS BANQUET SUPERVISOR Ot D63.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 03/15/2016 ANGEL FLOWERS S BANQUET SUPERVISOR Ot N18.3 CHRONIC KIDNEY DISEASE, STAGE 3 (MODERAT 03/15/2016 ANGEL FLOWERS BANQUET SUPERVISOR Ot Z79.899 OTHER RATE QUOTING OPERATOR (CURRENT) DRUG THERAPY 03/15/2016 FELICITA CEDEÑO MD Ot R51 HEADACHE 03/15/2016 JANA PALACIOS Ot I10 ESSENTIAL (PRIMARY) HYPERTENSION 03/15/2016 JANA PALACIOS Ot I25.10 ATHSCL HEART DISEASE OF [place] CORONARY 03/15/2016 JANA PALACIOS Ot I65.23 OCCLUSION AND STENOSIS OF [place] 03/15/2016 JANA PALACIOS Ot R07.89 OTHER CHEST PAIN 03/15/2016 MIRTA TORRES APRN Ot M25.511 PAIN IN RIGHT SHOULDER 03/15/2016 BRIAN, MIRTA R CASTING MACHINE SET UP OPERATOR Ot R07.9 CHEST PAIN, UNSPECIFIED 03/15/2016 KRISTIE ANGEL Kayla BANQUET SUPERVISOR Ot D50.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 03/15/2016 ANGEL FLOWERS BANQUET SUPERVISOR Ot D63.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 03/15/2016 FLOWERSANGEL BANQUET SUPERVISOR Ot N18.3 CHRONIC KIDNEY DISEASE, STAGE 3 (MODERAT 03/15/2016 FLOWERSMIGUELJENS Kayla BANQUET SUPERVISOR Ot Z79.899 OTHER PENITENTIARY (CURRENT) DRUG THERAPY 03/15/2016 FELICITA CEDEÑO MD Ot E05.9 0 THYROTOXICOSIS, 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 THYROTOXIC 03/15/2016 FELICITA CEDEÑO MD Ot E11.9 TYPE 2 DIABETES MELLITUS WITHOUT COMPLIC 03/15/2016 FELICITA CEDEÑO MD, Ot E78.4 OTHER HYPERLIPIDEMIA 03/15/2016 FELICITA CEDEÑO MD Ot R94.6 ABNORMAL RESULTS OF THYROID FUNCTION SH[place] 03/15/2016 TAPAN HUI MD P Ot R05 COUGH 03/15/2016 TAPAN HUI MD P Ot R13.19 OTHER DYSPHAGIA 03/15/2016 TAPAN HUI MD P Ot R49 .0 DYSPHONIA 03/15/2016 DINORA GREEN N Ot D50.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 03/15/2016 DINORA GREEN Ot D63.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 03/15/2016 DINORA GREEN Ot N18.3 CHRONIC KIDNEY DISEASE, STAGE 3 (MODERAT 03/15/2016 DINORA GREEN N Ot Z79.899 OTHER RATE QUOTING OPERATOR (CURRENT) DRUG THERAPY 03/15/2016 DELILAH HARE Ot D64.9 ANEMIA, UNSPECIFIED 03/15/2016 DELILAH HARE Ot E87.1 HYPO-OSMOLALITY AND HYPONATREMIA 03/15/2016 FELICITA CEDEÑO MD, Ot N39.0 URINARY TRACT INFECTION, SITE NOT SPECIF 03/15/2016 FELICITA CEDEÑO MD, Ot R19.7 DIARRHEA, UNSPECIFIED 03/15/2016 FELICITA CEDEÑO MD, Ot E05.9 0 THYROTOXICOSIS, 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 THYROTOXIC 03/15/2016 MIRTA TORRES APRN Ot D72.829 ELEVATED WHITE BLOOD CELL COUNT, UNSPECI 03/15/2016 MIRTA TORRES APRN Ot N39.0 URINARY TRACT INFECTION, SITE NOT SPECIF 03/15/2016 ANGEL FLOWERS BANQUET SUPERVISOR Ot D50.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 03/15/2016 FLOWERSANGEL Garza BANQUET SUPERVISOR Ot D63.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 03/15/2016 ANGEL FLOWERS BANQUET SUPERVISOR Ot N18.3 CHRONIC KIDNEY DISEASE, STAGE 3 (MODERAT 03/15/2016 FLOWERSANGEL Garza BANQUET SUPERVISOR Ot Z79.899 OTHER RATE QUOTING OPERATOR (CURRENT) DRUG THERAPY 03/15/2016 DELILAH HARE L Ot D64.9 ANEMIA, UNSPECIFIED 03/15/2016 DELILAH HARE L Ot E87.1 HYPO-OSMOLALITY AND HYPONATREMIA 03/22/2016 DELILAH HARE Ot E87.1 HYPO-OSMOLALITY AND HYPONATREMIA 03/22/2016 NORMA, BOBAN N Ot D50.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 03/22/2016 NORMA, BOBAN N Ot D63.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 03/22/2016 DINORA GREEN N Ot N18.3 CHRONIC KIDNEY DISEASE, STAGE 3 (MODERAT 03/22/2016 NORMA BOBAN N Ot Z79.899 OTHER PENITENTIARY (CURRENT) DRUG THERAPY 03/25/2016 DELILAH HARE Ot E87.1 HYPO-OSMOLALITY AND HYPONATREMIA 03/25/2016 DELILAH HARE Ot E87.1 HYPO-OSMOLALITY AND HYPONATREMIA 03/25/2016 DELILAH HARE L Ot E87.1 HYPO-OSMOLALITY AND HYPONATREMIA 03/26/2016 DELILAH HARE Ot E87.1 HYPO-OSMOLALITY AND HYPONATREMIA 03/26/2016 DELILAH HARE L Ot E87.1 HYPO-OSMOLALITY AND HYPONATREMIA 03/26/2016 NORMA BOBAN N Ot D50.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 03/26/2016 NORMA, BOBAN N Ot D63.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 03/26/2016 NORMA, BOBAN N Ot N18.3 CHRONIC KIDNEY DISEASE, STAGE 3 (MODERAT 03/26/2016 NORMA, BOBAN N Ot Z79.899 OTHER PENITENTIARY (CURRENT) DRUG THERAPY 03/26/2016 DELILAH HARE L Ot E87.1 HYPO-OSMOLALITY AND HYPONATREMIA 03/27/2016 DELILAH HARE Ot E87.1 HYPO-OSMOLALITY AND HYPONATREMIA 03/29/2016 FELICITA CEDEÑO MD Ot E05.9 0 THYROTOXICOSIS, 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 THYROTOXIC 03/29/2016 BRIAN MIRTA R CASTING MACHINE SET UP OPERATOR Ot D72.829 ELEVATED WHITE BLOOD CELL COUNT, UNSPECI 03/29/2016 BRIAN MIRTA R CASTING MACHINE SET UP OPERATOR Ot N39.0 URINARY TRACT INFECTION, SITE NOT SPECIF 04/04/2016 FELICITA CEDEÑO MD Ot E05.9 0 THYROTOXICOSIS, 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 THYROTOXIC 04/04/2016 BRIAN MIRTA R CASTING MACHINE SET UP OPERATOR Ot D72.829 ELEVATED WHITE BLOOD CELL COUNT, UNSPECI 04/04/2016 BRIAN MIRTA R CASTING MACHINE SET UP OPERATOR Ot N39.0 URINARY TRACT INFECTION, SITE NOT SPECIF 04/05/2016 JANA PALACIOS Ot E78.5 HYPERLIPIDEMIA, UNSPECIFIED 04/05/2016 JANA PALACIOS Ot E78.5 HYPERLIPIDEMIA, UNSPECIFIED 04/05/2016 ANGEL FLOWERS BANQUET SUPERVISOR Ot D50.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 04/05/2016 ANGEL FLOWERS BANQUET SUPERVISOR Ot D63.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 04/05/2016 ANGEL FLOWERSP Ot N18.3 CHRONIC KIDNEY DISEASE, STAGE 3 (MODERAT 04/05/2016 ANGEL FLOWERS BANQUET SUPERVISOR Ot Z79.899 OTHER RATE QUOTING OPERATOR (CURRENT) DRUG THERAPY 04/08/2016 JANA PALACIOS Ot E78.5 HYPERLIPIDEMIA, UNSPECIFIED 04/08/2016 JANA PALACIOS Ot E78.5 HYPERLIPIDEMIA, UNSPECIFIED 04/08/2016 JANA PALACIOS Ot E78.5 HYPERLIPIDEMIA, UNSPECIFIED 04/08/2016 JANA PALACIOS Ot E78.5 HYPERLIPIDEMIA, UNSPECIFIED 04/08/2016 JANA PALACIOS Ot E78.5 HYPERLIPIDEMIA, UNSPECIFIED 04/09/2016 DELILAH HARE Ot D64.9 ANEMIA, UNSPECIFIED 04/09/2016 DELILAH HARE Ot E87.1 HYPO-OSMOLALITY AND HYPONATREMIA 04/10/2016 ANGEL FLOWERS BANQUET SUPERVISOR Ot D50.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 04/10/2016 ANGEL FLOWERS BANQUET SUPERVISOR Ot D63.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 04/10/2016 ANGEL FLOWERS BANQUET SUPERVISOR Ot N18.3 CHRONIC KIDNEY DISEASE, STAGE 3 (MODERAT 04/10/2016 ANGEL FLOWERS BANQUET SUPERVISOR Ot Z79.899 OTHER RATE QUOTING OPERATOR (CURRENT) DRUG THERAPY 04/10/2016 JANA PALACIOS Ot E78.5 HYPERLIPIDEMIA, UNSPECIFIED 04/12/2016 JANA PALACIOS Ot E78.5 HYPERLIPIDEMIA, UNSPECIFIED 04/12/2016 TUCKER MENDEZ, DELILAH L Ot E87.1 HYPO-OSMOLALITY AND HYPONATREMIA 04/16/2016 DELILAH HARE L Ot E87.1 HYPO-OSMOLALITY AND HYPONATREMIA 04/18/2016 FELICITA CEDEÑO MD Ot N39.0 URINARY TRACT INFECTION, SITE NOT SPECIF 04/18/2016 FELICITA CEDEÑO MD Ot R19.7 DIARRHEA, UNSPECIFIED 04/24/2016 FELICITA CEDEÑO MD Ot N39.0 URINARY TRACT INFECTION, SITE NOT SPECIF 04/24/2016 FELICITA CEDEÑO MD Ot R19.7 DIARRHEA, UNSPECIFIED 04/29/2016 NORMA, BOBAN N Ot D50.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 04/29/2016 NORMA, BOBAN N Ot D63.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 04/29/2016 NORMA, BOBAN N Ot N18.3 CHRONIC KIDNEY DISEASE, STAGE 3 (MODERAT 04/29/2016 NORMA, BOBAN N Ot Z79.899 OTHER RATE QUOTING OPERATOR (CURRENT) DRUG THERAPY 05/03/2016 NORMA, BOBAN N Ot D50.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 05/03/2016 NORMA, BOBAN N Ot D63.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 05/03/2016 NORMA, BOBAN N Ot N18.3 CHRONIC KIDNEY DISEASE, STAGE 3 (MODERAT 05/03/2016 NORMA, BOBAN N Ot Z79.899 OTHER PENITENTIARY (CURRENT) DRUG THERAPY 05/03/2016 JANA PALACIOS Ot E78.5 HYPERLIPIDEMIA, UNSPECIFIED 05/10/2016 JANA PALACIOS Ot E78.5 HYPERLIPIDEMIA, UNSPECIFIED 05/28/2016 FRANKLIN CEDEÑO MD A Ot 787. 02 NAUSEA ALONE 05/28/2016 Ot E78.2 MIXE D HYPERLIPIDEMIA 05/28/2016 Ot E78.2 MIXE D HYPERLIPIDEMIA 05/28/2016 Ot E78.2 MIXE D HYPERLIPIDEMIA 05/28/2016 Ot E78.2 MIXE D HYPERLIPIDEMIA 05/29/2016 FELICITA CEDEÑO MD Ot N39.0 URINARY TRACT INFECTION, SITE NOT SPECIF 05/29/2016 FELICITA CEDEÑO MD Ot R19.7 DIARRHEA, UNSPECIFIED 05/30/2016 FELICITA CEDEÑO MD Ot N39.0 URINARY TRACT INFECTION, SITE NOT SPECIF 05/30/2016 FELICITA CEDEÑO MD Ot R19.7 DIARRHEA, UNSPECIFIED 06/04/2016 Ot E78.2 MIXE D HYPERLIPIDEMIA 06/04/2016 Ot E78.2 MIXE D HYPERLIPIDEMIA 06/13/2016 FELICITA CEDEÑO MD Ot E11.9 TYPE 2 DIABETES MELLITUS WITHOUT COMPLIC 06/13/2016 FELICITA CEDEÑO MD Ot E78.4 OTHER HYPERLIPIDEMIA 06/13/2016 FELICITA CEDEÑO MD Ot I10 ESSENTIAL (PRIMARY) HYPERTENSION 06/13/2016 FELICITA CEDEÑO MD Ot Z79.8 99 OTHER PENITENTIARY (CURRENT) DRUG THERAPY 06/14/2016 Ot E78.2 MIXE D HYPERLIPIDEMIA 06/18/2016 FELICITA CEDEÑO MD Ot E11.9 TYPE 2 DIABETES MELLITUS WITHOUT COMPLIC 06/18/2016 FELICITA CEDEÑO MD Ot E78.4 OTHER HYPERLIPIDEMIA 06/18/2016 FELICITA CEDEÑO MD Ot I10 ESSENTIAL (PRIMARY) HYPERTENSION 06/18/2016 FELICITA CEDEÑO MD Ot Z79.8 99 OTHER RATE QUOTING OPERATOR (CURRENT) DRUG THERAPY 06/18/2016 DINORA GREEN Ot D50.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 06/18/2016 DINORA GREEN Ot D63.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 06/18/2016 DINORA GREEN Ot N18.3 CHRONIC KIDNEY DISEASE, STAGE 3 (MODERAT 06/18/2016 DINORA GREEN Ot Z79.899 OTHER PENITENTIARY (CURRENT) DRUG THERAPY 06/19/2016 Ot E78.2 MIXE D HYPERLIPIDEMIA 06/24/2016 DINORA GREEN Ot D50.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 06/24/2016 DINORA GREEN Ot D63.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 06/24/2016 NORMADINORA REYES Casi Ot N18.3 CHRONIC KIDNEY DISEASE, STAGE 3 (MODERAT 06/24/2016 NORMADINORA REYES Casi Ot Z79.899 OTHER RATE QUOTING OPERATOR (CURRENT) DRUG THERAPY 06/26/2016 FELICITA CEDEÑO MD, Ot E11.9 TYPE 2 DIABETES MELLITUS WITHOUT COMPLIC 06/26/2016 FELICITA CEDEÑO MD Ot E78.4 OTHER HYPERLIPIDEMIA 06/26/2016 FELICITA CEDEÑO MD, Ot I10 ESSENTIAL (PRIMARY) HYPERTENSION 06/26/2016 FELICITA CEDEÑO MD Ot Z79.8 99 OTHER PENITENTIARY (CURRENT) DRUG THERAPY 06/26/2016 FELICITA CEDEÑO MD, Ot E11.9 TYPE 2 DIABETES MELLITUS WITHOUT COMPLIC 06/26/2016 FELICITA CEDEÑO MD, Ot E78.4 OTHER HYPERLIPIDEMIA 06/26/2016 FELICITA CEDEÑO MD, Ot I10 ESSENTIAL (PRIMARY) HYPERTENSION 06/26/2016 FELICITA CEDEÑO MD Ot Z79.8 99 OTHER PENITENTIARY (CURRENT) DRUG THERAPY 06/26/2016 FELICITA CEDEÑO MD, Ot E11.9 TYPE 2 DIABETES MELLITUS WITHOUT COMPLIC 06/26/2016 FELICITA CEDEÑO MD Ot E78.4 OTHER HYPERLIPIDEMIA 06/26/2016 FELICITA CEDEÑO MD Ot I10 ESSENTIAL (PRIMARY) HYPERTENSION 06/26/2016 FELICITA CEDEÑO MD Ot Z79.8 99 OTHER PENITENTIARY (CURRENT) DRUG THERAPY 06/26/2016 FELICITA CEDEÑO MD, Ot E11.9 TYPE 2 DIABETES MELLITUS WITHOUT COMPLIC 06/26/2016 FELICITA CEDEÑO MD Ot E78.4 OTHER HYPERLIPIDEMIA 06/26/2016 FELICITA CEDEÑO MD Ot I10 ESSENTIAL (PRIMARY) HYPERTENSION 06/26/2016 FELICITA CEDEÑO MD Ot Z79.8 99 OTHER RATE QUOTING OPERATOR (CURRENT) DRUG THERAPY 06/28/2016 AR ALLEN DO Ot J44. 9 CHRONIC OBSTRUCTIVE PULMONARY DISEASE, U 06/28/2016 AR ALLEN DO Ot R05 COUGH 06/28/2016 AR ALLEN DO Ot R91. 1 SOLITARY PULMONARY NODULE 06/28/2016 AR ALLEN DO, Ot J44. 9 CHRONIC OBSTRUCTIVE PULMONARY DISEASE, U 06/28/2016 AR ALLEN DO Ot R05 COUGH 06/28/2016 AR ALLEN DO Ot R91. 1 SOLITARY PULMONARY NODULE 07/02/2016 AR ALLEN DO Ot J44. 9 CHRONIC OBSTRUCTIVE PULMONARY DISEASE, U 07/02/2016 AR ALLEN DO Ot R05 COUGH 07/02/2016 AR ALLEN DO Ot R91. 1 SOLITARY PULMONARY NODULE 07/03/2016 AR ALLEN DO Ot J44. 9 CHRONIC OBSTRUCTIVE PULMONARY DISEASE, U 07/03/2016 ALEJANDROAR CARLSON DO M Ot R05 COUGH 07/03/2016 AR ALLEN DO Ot R91. 1 SOLITARY PULMONARY NODULE 07/05/2016 FELICITA CEDEÑO MD Ot E11.9 TYPE 2 DIABETES MELLITUS WITHOUT COMPLIC 07/05/2016 FELICITA CEDEÑO MD Ot E78.4 OTHER HYPERLIPIDEMIA 07/05/2016 FELICITA CEDEÑO MD, Ot I10 ESSENTIAL (PRIMARY) HYPERTENSION 07/05/2016 FELICITA CEDEÑO MD Ot Z79.8 99 OTHER RATE QUOTING OPERATOR (CURRENT) DRUG THERAPY 07/09/2016 FELICITA CEDEÑO MD Ot E11.9 TYPE 2 DIABETES MELLITUS WITHOUT COMPLIC 07/09/2016 FELICITA CEDEÑO MD Ot E78.4 OTHER HYPERLIPIDEMIA 07/09/2016 FELICITA CEDEÑO MD Ot I10 ESSENTIAL (PRIMARY) HYPERTENSION 07/09/2016 FELICITA CEDEÑO MD Ot Z79.8 99 OTHER PENITENTIARY (CURRENT) DRUG THERAPY 07/15/2016 AR ALLEN DO Ot G47. 33 OBSTRUCTIVE SLEEP APNEA (ADULT) (PEDIATR 07/15/2016 AR ALLEN DO Ot J44. 9 CHRONIC OBSTRUCTIVE PULMONARY DISEASE, U 07/15/2016 AR ALLEN DO M Ot R05 COUGH 07/15/2016 AR ALLEN DO Ot R06. 02 SHORTNESS OF BREATH 07/19/2016 AR ALLEN DO Ot J44. 9 CHRONIC OBSTRUCTIVE PULMONARY DISEASE, U 07/19/2016 AR ALLEN DO M Ot R05 COUGH 07/19/2016 AR ALLEN DO Ot R91. 1 SOLITARY PULMONARY NODULE 07/24/2016 AR ALLEN DO Ot J44. 9 CHRONIC OBSTRUCTIVE PULMONARY DISEASE, U 07/24/2016 AR ALLEN DO M Ot R05 COUGH 07/24/2016 AR ALLEN DO M Ot R91. 1 SOLITARY PULMONARY NODULE 07/28/2016 MIRTA TORRES APRN Ot 599.0 URIN TRACT INFECTION NOS 07/31/2016 JOSIE GREENAN N Ot D50.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 07/31/2016 NORMA, BOBAN N Ot D63.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 07/31/2016 NORMA, BOBAN N Ot N18.3 CHRONIC KIDNEY DISEASE, STAGE 3 (MODERAT 07/31/2016 NORMA JOSIERACHELLE N Ot Z79.899 OTHER RATE QUOTING OPERATOR (CURRENT) DRUG THERAPY 08/01/2016 NORMA, DINORA N Ot D50.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 08/01/2016 NORMA, BOBAN N Ot D63.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 08/01/2016 NORMA, BOBAN N Ot N18.3 CHRONIC KIDNEY DISEASE, STAGE 3 (MODERAT 08/01/2016 NORMA, BOBAN N Ot Z79.899 OTHER PENITENTIARY (CURRENT) DRUG THERAPY 08/05/2016 AR ALLEN DO Ot G47. 33 OBSTRUCTIVE SLEEP APNEA (ADULT) (PEDIATR 08/05/2016 AR ALLEN DO Ot J44. 9 CHRONIC OBSTRUCTIVE PULMONARY DISEASE, U 08/05/2016 AR ALLEN DO Ot R05 COUGH 08/05/2016 AR ALLEN DO Ot R06. 02 SHORTNESS OF BREATH 08/07/2016 AR ALLEN DO Ot G47. 33 OBSTRUCTIVE SLEEP APNEA (ADULT) (PEDIATR 08/07/2016 AR ALLEN DO Ot J44. 9 CHRONIC OBSTRUCTIVE PULMONARY DISEASE, U 08/07/2016 AR ALLEN DO M Ot R05 COUGH 08/07/2016 AR ALLEN DO Ot R06. 02 SHORTNESS OF BREATH 08/08/2016 NORMADINORA N Ot D50.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 08/08/2016 NORMA, BOBAN N Ot D63.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 08/08/2016 NORMA, DINORA N Ot N18.3 CHRONIC KIDNEY DISEASE, STAGE 3 (MODERAT 08/08/2016 NORMA BOBAN N Ot Z79.899 OTHER RATE QUOTING OPERATOR (CURRENT) DRUG THERAPY 08/09/2016 NORMA BOBAN N Ot D50.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 08/09/2016 NORMA, BOBAN N Ot D63.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 08/09/2016 NORMA, BOBAN N Ot N18.3 CHRONIC KIDNEY DISEASE, STAGE 3 (MODERAT 08/09/2016 DINORA GREEN Ot Z79.899 OTHER PENITENTIARY (CURRENT) DRUG THERAPY 08/28/2016 FRANKLIN CEDEÑO MD Ot 787. 02 NAUSEA ALONE 08/28/2016 MIRTA TORRES APRN Ot 599.0 URIN TRACT INFECTION NOS 10/17/2016 FELICITA CEDEÑO MD Ot Z12.3 1 ENCNTR SCREEN MAMMOGRAM FOR MALIGNANT NE 10/17/2016 FELICITA CEDEÑO MD Ot Z12.3 1 ENCNTR SCREEN MAMMOGRAM FOR MALIGNANT NE 10/17/2016 FELICITA CEDEÑO MD Ot Z12.3 1 ENCNTR SCREEN MAMMOGRAM FOR MALIGNANT NE 10/17/2016 FELICITA CEDEÑO MD, Ot Z12.3 1 ENCNTR SCREEN MAMMOGRAM FOR MALIGNANT NE 10/23/2016 FELICITA CEDEÑO MD, Ot Z12.3 1 ENCNTR SCREEN MAMMOGRAM FOR MALIGNANT NE 10/31/2016 [...] I10 ESSENTIAL (PRIMARY) HYPERTENSION 11/01/2016 FELICITA CEDEÑO MD Ot Z79.8 99 OTHER PENITENTIARY (CURRENT) DRUG THERAPY 11/04/2016 ANGEL FLOWERS BANQUET SUPERVISOR Ot R26.81 UNSTEADINESS ON FEET 11/04/2016 ANGEL FLOWERS BANQUET SUPERVISOR Ot R41.82 ALTERED MENTAL STATUS, UNSPECIFIED 11/06/2016 DINORA GREEN Ot D50.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 11/06/2016 DINORA GREEN Ot D63.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 11/06/2016 DINORA GREEN Ot N18.3 CHRONIC KIDNEY DISEASE, STAGE 3 (MODERAT 11/06/2016 DINORA GREEN Ot R82.99 OTHER ABNORMAL FINDINGS IN URINE 11/06/2016 DINORA GREEN Ot Z79.899 OTHER PENITENTIARY (CURRENT) DRUG THERAPY 11/07/2016 JOSIE GREENAN N Ot D50.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 11/07/2016 NORMA, BOBAN N Ot D63.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 11/07/2016 NORMA BOBAN N Ot N18.3 CHRONIC KIDNEY DISEASE, STAGE 3 (MODERAT 11/07/2016 DINORA GREEN N Ot R82.99 OTHER ABNORMAL FINDINGS IN URINE 11/07/2016 DINORA GREEN N Ot Z79.899 OTHER PENITENTIARY (CURRENT) DRUG THERAPY 11/07/2016 GALA TY, FELICITA Borges Ot Z12.3 1 ENCNTR SCREEN MAMMOGRAM FOR MALIGNANT NE 11/12/2016 FELICITA CEDEÑO MD, Ot Z12.3 1 ENCNTR SCREEN MAMMOGRAM FOR MALIGNANT NE 11/15/2016 NORMA JOSIERACHELLE N Ot D50.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 11/15/2016 DINORA GREEN N Ot D63.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 11/15/2016 DINORA GREEN N Ot N18.3 CHRONIC KIDNEY DISEASE, STAGE 3 (MODERAT 11/15/2016 DINORA GREEN N Ot Z79.899 OTHER RATE QUOTING OPERATOR (CURRENT) DRUG THERAPY 11/25/2016 GALA TY, FRANKLIN A Ot 787. 02 NAUSEA ALONE 11/26/2016 ANGEL FLOWERS BANQUET SUPERVISOR Ot R26.81 UNSTEADINESS ON FEET 11/26/2016 ANGEL FLOWERS BANQUET SUPERVISOR Ot R41.82 ALTERED MENTAL STATUS, UNSPECIFIED 12/02/2016 ANGEL FLOWERS BANQUET SUPERVISOR Ot R26.81 UNSTEADINESS ON FEET 12/02/2016 ANGEL FLOWERS BANQUET SUPERVISOR Ot R41.82 ALTERED MENTAL STATUS, UNSPECIFIED 12/11/2016 FELICITA CEDEÑO MD Ot E11.9 TYPE 2 DIABETES MELLITUS WITHOUT COMPLIC 12/11/2016 FELICITA CEDEÑO MD Ot E78.5 HYPERLIPIDEMIA, UNSPECIFIED 12/11/2016 FELICITA CEDEÑO MD Ot I10 ESSENTIAL (PRIMARY) HYPERTENSION 12/11/2016 FELICITA CEDEÑO MD Ot Z79.8 99 OTHER RATE QUOTING OPERATOR (CURRENT) DRUG THERAPY 12/26/2016 MIRTA TORRES APRN Ot 599.0 URIN TRACT INFECTION NOS 01/06/2017 NORMA, BOBAN N Ot D50.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 01/06/2017 NORMA, BOBAN N Ot D63.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 01/06/2017 NORMA, BOBAN N Ot N18.3 CHRONIC KIDNEY DISEASE, STAGE 3 (MODERAT 01/06/2017 NORMA, BOBAN N Ot Z79.899 OTHER RATE QUOTING OPERATOR (CURRENT) DRUG THERAPY 01/09/2017 NORMA, BOBAN N Ot D50.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 01/09/2017 NORMA, BOBAN N Ot D63.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 01/09/2017 NORMA BOBAN N Ot N18.3 CHRONIC KIDNEY DISEASE, STAGE 3 (MODERAT 01/09/2017 NORMA, BOBAN N Ot Z79.899 OTHER RATE QUOTING OPERATOR (CURRENT) DRUG THERAPY 01/25/2017 Ot 250.00 SEEMA B ЮЛИЯ WO COMPL, TYPE II OR UNSPEC TY 01/25/2017 Ot 272.4 HYPE RLIPIDEMIA NEC/NOS 02/12/2017 NORMA BOBAN N Ot D50.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 02/12/2017 NORMA, BOBAN N Ot D63.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 02/12/2017 NORMA, BOBAN N Ot N18.3 CHRONIC KIDNEY DISEASE, STAGE 3 (MODERAT 02/12/2017 NORMA BOBAN N Ot Z79.899 OTHER PENITENTIARY (CURRENT) DRUG THERAPY 02/12/2017 MIRTA TORRES CASTING MACHINE SET UP OPERATOR Ot S89.92XA UNSPECIFIED INJURY OF LEFT LOWER LEG, IN 02/12/2017 MIRTA TORRES CASTING MACHINE SET UP OPERATOR Ot X58.XXXA EXPOSURE TO OTHER SPECIFIED FACTORS, INI 02/12/2017 MIRTA TORRES CASTING MACHINE SET UP OPERATOR Ot Y99.8 OTHER EXTERNAL CAUSE STATUS 02/12/2017 MIRTA TORRES CASTING MACHINE SET UP OPERATOR Ot Z96.652 PRESENCE OF LEFT ARTIFICIAL KNEE JOINT 02/14/2017 FELICITA CEDEÑO MD Ot E11.9 TYPE 2 DIABETES MELLITUS WITHOUT COMPLIC 02/14/2017 FELICITA CEDEÑO MD Ot E78.5 HYPERLIPIDEMIA, UNSPECIFIED 02/14/2017 FELICITA CEDEÑO MD Ot I10 ESSENTIAL (PRIMARY) HYPERTENSION 02/14/2017 FELICITA CEDEÑO MD Ot Z79.8 99 OTHER PENITENTIARY (CURRENT) DRUG THERAPY 02/14/2017 DINORA GREEN Ot D50.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 02/14/2017 DINORA GREEN Casi Ot D63.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 02/14/2017 DINORA GREEN Ot N18.3 CHRONIC KIDNEY DISEASE, STAGE 3 (MODERAT 02/14/2017 DINORA GREEN Ot Z79.899 OTHER RATE QUOTING OPERATOR (CURRENT) DRUG THERAPY 02/17/2017 MIRTA TORRES CASTING MACHINE SET UP OPERATOR Ot S89.92XA UNSPECIFIED INJURY OF LEFT LOWER LEG, IN 02/17/2017 MIRTA TORRES CASTING MACHINE SET UP OPERATOR Ot X58.XXXA EXPOSURE TO OTHER SPECIFIED FACTORS, INI 02/17/2017 MIRTA TORRES CASTING MACHINE SET UP OPERATOR Ot Y99.8 OTHER EXTERNAL CAUSE STATUS 02/17/2017 MIRTA TORRES CASTING MACHINE SET UP OPERATOR Ot Z96.652 PRESENCE OF LEFT ARTIFICIAL KNEE JOINT 02/19/2017 FELICITA CEDEÑO MD, Ot E11.9 TYPE 2 DIABETES MELLITUS WITHOUT COMPLIC 02/19/2017 FELICITA CEDEÑO MD, Ot E78.5 HYPERLIPIDEMIA, UNSPECIFIED 02/19/2017 FELICITA CEDEÑO MD, Ot I10 ESSENTIAL (PRIMARY) HYPERTENSION 02/19/2017 FELICITA CEDEÑO MD Ot Z79.8 99 OTHER PENITENTIARY (CURRENT) DRUG THERAPY 02/19/2017 FELICITA CEDEÑO MD, Ot E11.9 TYPE 2 DIABETES MELLITUS WITHOUT COMPLIC 02/19/2017 FELICITA CEDEÑO MD, Ot E78.5 HYPERLIPIDEMIA, UNSPECIFIED 02/19/2017 FELICITA CEDEÑO MD, Ot I10 ESSENTIAL (PRIMARY) HYPERTENSION 02/19/2017 FELICITA CEDEÑO MD Ot Z79.8 99 OTHER RATE QUOTING OPERATOR (CURRENT) DRUG THERAPY 02/19/2017 FELICITA CEDEÑO MD, Ot E11.9 TYPE 2 DIABETES MELLITUS WITHOUT COMPLIC 02/19/2017 FELICITA CEDEÑO MD, Ot E78.5 HYPERLIPIDEMIA, UNSPECIFIED 02/19/2017 FELICITA CEDEÑO MD, Ot I10 ESSENTIAL (PRIMARY) HYPERTENSION 02/19/2017 FELICITA CEDEÑO MD Ot Z79.8 99 OTHER PENITENTIARY (CURRENT) DRUG THERAPY 02/19/2017 FELICITA CEDEÑO MD, Ot E11.9 TYPE 2 DIABETES MELLITUS WITHOUT COMPLIC 02/19/2017 FELICITA CEDEÑO MD, Ot E78.5 HYPERLIPIDEMIA, UNSPECIFIED 02/19/2017 FELICITA CEDEÑO MD, Ot I10 ESSENTIAL (PRIMARY) HYPERTENSION 02/19/2017 FELICITA CEDEÑO MD Ot Z79.8 99 OTHER RATE QUOTING OPERATOR (CURRENT) DRUG THERAPY 02/19/2017 FELICITA CEDEÑO MD Ot E11.9 TYPE 2 DIABETES MELLITUS WITHOUT COMPLIC 02/19/2017 FELICITA CEDEÑO MD, Ot E78.5 HYPERLIPIDEMIA, UNSPECIFIED 02/19/2017 FELICITA CEDEÑO MD Ot I10 ESSENTIAL (PRIMARY) HYPERTENSION 02/19/2017 FELICITA CEDEÑO MD Ot Z79.8 99 OTHER RATE QUOTING OPERATOR (CURRENT) DRUG THERAPY 02/19/2017 FELICITA CEDEÑO MD Ot E11.9 TYPE 2 DIABETES MELLITUS WITHOUT COMPLIC 02/19/2017 FELICITA CEDEÑO MD, Ot E78.5 HYPERLIPIDEMIA, UNSPECIFIED 02/19/2017 FELICITA CEDEÑO MD, Ot I10 ESSENTIAL (PRIMARY) HYPERTENSION 02/19/2017 FELICITA CEDEÑO MD, Ot Z79.8 99 OTHER PENITENTIARY (CURRENT) DRUG THERAPY 02/25/2017 GALA TY, FRANKLIN A Ot 787. 02 NAUSEA ALONE 02/25/2017 MIRTA TORRES CASTING MACHINE SET UP OPERATOR Ot 599.0 URIN TRACT INFECTION NOS 03/05/2017 MIRTA TORRES CASTING MACHINE SET UP OPERATOR Ot S89.92XA UNSPECIFIED INJURY OF LEFT LOWER LEG, IN 03/05/2017 MIRTA TORRES R CASTING MACHINE SET UP OPERATOR Ot X58.XXXA EXPOSURE TO OTHER SPECIFIED FACTORS, INI 03/05/2017 MIRTA TORRES CASTING MACHINE SET UP OPERATOR Ot Y99.8 OTHER EXTERNAL CAUSE STATUS 03/05/2017 MIRTA TORRES CASTING MACHINE SET UP OPERATOR Ot Z96.652 PRESENCE OF LEFT ARTIFICIAL KNEE JOINT 03/06/2017 FELICITA CEDEÑO MD Ot E11.9 TYPE 2 DIABETES MELLITUS WITHOUT COMPLIC 03/06/2017 FELICITA CEDEÑO MD Ot E78.5 HYPERLIPIDEMIA, UNSPECIFIED 03/06/2017 FELICITA CEDEÑO MD, Ot I10 ESSENTIAL (PRIMARY) HYPERTENSION 03/06/2017 FELICITA CEDEÑO MD Ot Z79.8 99 OTHER PENITENTIARY (CURRENT) DRUG THERAPY 03/11/2017 MIRTA TORRES CASTING MACHINE SET UP OPERATOR Ot S89.92XA UNSPECIFIED INJURY OF LEFT LOWER LEG, IN 03/11/2017 MIRTA TORRES CASTING MACHINE SET UP OPERATOR Ot X58.XXXA EXPOSURE TO OTHER SPECIFIED FACTORS, INI 03/11/2017 MIRTA TORRES CASTING MACHINE SET UP OPERATOR Ot Y99.8 OTHER EXTERNAL CAUSE STATUS 03/11/2017 MIRTA TORRES CASTING MACHINE SET UP OPERATOR Ot Z96.652 PRESENCE OF LEFT ARTIFICIAL KNEE JOINT 03/11/2017 FELICITA CEDEÑO MD, Ot E11.9 TYPE 2 DIABETES MELLITUS WITHOUT COMPLIC 03/11/2017 FELICITA CEDEÑO MD, Ot E78.5 HYPERLIPIDEMIA, UNSPECIFIED 03/11/2017 FELICITA CEDEÑO MD, Ot I10 ESSENTIAL (PRIMARY) HYPERTENSION 03/11/2017 FELICITA CEDEÑO MD, Ot Z79.8 99 OTHER RATE QUOTING OPERATOR (CURRENT) DRUG THERAPY 04/05/2017 SUHA TAYLOR MD, Ot A41. 9 SEPSIS, UNSPECIFIED ORGANISM 04/05/2017 SUHA TAYLOR MD, Ot B96. 1 KLEBSIELLA PNEUMONIAE THE CAUSE OF DI 04/05/2017 SUHA TAYLOR MD, Ot D63. 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 04/05/2017 SUHA TAYLOR MD, Ot E03. 9 HYPOTHYROIDISM, UNSPECIFIED 04/05/2017 SUHA TAYLOR MD, Ot E11. 9 TYPE 2 DIABETES MELLITUS WITHOUT COMPLIC 04/05/2017 SUHA TAYLOR MD, Ot I12. 9 HYPERTENSIVE CHRONIC KIDNEY DISEASE W ST 04/05/2017 SUHA TAYLOR MD, Ot I25. 10 ATHSCL HEART DISEASE OF [place] CORONARY 04/05/2017 SUHA TAYLOR MD, Ot J44. 9 CHRONIC OBSTRUCTIVE PULMONARY DISEASE, U 04/05/2017 SUHA TAYLOR MD, Ot K21. 9 GASTRO-ESOPHAGEAL REFLUX DISEASE WITHOUT 04/05/2017 SUHA TAYLOR MD, Ot K44. 9 DIAPHRAGMATIC HERNIA WITHOUT OBSTRUCTION 04/05/2017 SUHA TAYLOR MD, Ot N17. 9 ACUTE KIDNEY FAILURE, UNSPECIFIED 04/05/2017 SUHA TAYLOR MD, Ot N18. 9 CHRONIC KIDNEY DISEASE, UNSPECIFIED 04/05/2017 SUHA TAYLOR MD, Ot N30. 90 CYSTITIS, UNSPECIFIED WITHOUT HEMATURIA 04/05/2017 SUHA TAYLOR MD, Ot R65. 20 SEVERE SEPSIS WITHOUT SEPTIC SHOCK 04/05/2017 SUHA TAYLOR MD, Ot S00.83XA CONTUSION OF OTHER PART OF HEAD, INITIAL 04/05/2017 SUHA TAYLOR MD, Ot W19.XXXA UNSPECIFIED FALL, INITIAL ENCOUNTER 04/05/2017 SUHA TAYLOR MD, Ot Y92.[address] [facility] (PRIVATE 04/05/2017 SUHA TAYLOR MD, Ot Z95. 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 04/26/2017 NORMA, BOBAN N Ot N18.3 CHRONIC KIDNEY DISEASE, STAGE 3 (MODERAT 04/26/2017 NORMA, BOBAN N Ot Z79.899 OTHER RATE QUOTING OPERATOR (CURRENT) DRUG THERAPY 05/02/2017 NORMA, BOBAN N Ot D63.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 05/02/2017 NORMA, BOBAN N Ot N18.3 CHRONIC KIDNEY DISEASE, STAGE 3 (MODERAT 05/02/2017 NORMA, BOBAN N Ot Z79.899 OTHER RATE QUOTING OPERATOR (CURRENT) DRUG THERAPY 06/20/2017 NORMA, BOBAN N Ot D63.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 06/20/2017 NORMA, BOBAN N Ot N18.3 CHRONIC KIDNEY DISEASE, STAGE 3 (MODERAT 06/20/2017 NORMA, BOBAN N Ot Z79.899 OTHER RATE QUOTING OPERATOR (CURRENT) DRUG THERAPY 06/24/2017 NORMA, BOBAN N Ot D63.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 06/24/2017 NORMA, BOBAN N Ot N18.3 CHRONIC KIDNEY DISEASE, STAGE 3 (MODERAT 06/24/2017 NORMA, BOBAN N Ot Z79.899 OTHER RATE QUOTING OPERATOR (CURRENT) DRUG THERAPY 07/30/2017 NORMA, BOBAN N Ot D63.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 07/30/2017 NORMA, BOBAN N Ot N18.3 CHRONIC KIDNEY DISEASE, STAGE 3 (MODERAT 07/30/2017 NORMA, BOBAN N Ot Z79.899 OTHER PENITENTIARY (CURRENT) DRUG THERAPY 07/31/2017 NORMA, BOBAN N Ot D63.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 07/31/2017 NORMA, BOBAN N Ot N18.3 CHRONIC KIDNEY DISEASE, STAGE 3 (MODERAT 07/31/2017 NORMA, BOBAN N Ot Z79.899 OTHER PENITENTIARY (CURRENT) DRUG THERAPY 08/06/2017 NORMA, BOBAN N Ot D63.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 08/06/2017 NORMA, BOBAN N Ot N18.3 CHRONIC KIDNEY DISEASE, STAGE 3 (MODERAT 08/06/2017 NORMADINORA REYES N Ot Z79.899 OTHER RATE QUOTING OPERATOR (CURRENT) DRUG THERAPY 08/07/2017 SHANTISINAKLARISSA E CASTING MACHINE SET UP OPERATOR Ot E27.9 DISORDER OF ADRENAL GLAND, UNSPECIFIED 08/07/2017 SHANTI KLARISSA E CASTING MACHINE SET UP OPERATOR Ot I25.10 ATHSCL HEART DISEASE OF [place] CORONARY 08/07/2017 SHANTISINA CONTRERASINE E CASTING MACHINE SET UP OPERATOR Ot I27.20 PULMONARY HYPERTENSION, UNSPECIFIED 08/07/2017 SHANTI KLARISSA E CASTING MACHINE SET UP OPERATOR Ot I51.7 CARDIOMEGALY 08/07/2017 SHANTI KLARISSA E CASTING MACHINE SET UP OPERATOR Ot J30.9 ALLERGIC RHINITIS, UNSPECIFIED 08/07/2017 SHANTI, KLARISSA E CASTING MACHINE SET UP OPERATOR Ot R91.8 OTHER NONSPECIFIC ABNORMAL FINDING OF KIM 09/02/2017 NORMADINORA REYES N Ot D63.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 09/02/2017 NORMADINORA REYES N Ot N18.3 CHRONIC KIDNEY DISEASE, STAGE 3 (MODERAT 09/02/2017 NORMA, BOBRACHELLE N Ot Z79.899 OTHER RATE QUOTING OPERATOR (CURRENT) DRUG THERAPY 09/02/2017 SHANTISINAKLARISSA E CASTING MACHINE SET UP OPERATOR Ot E27.9 DISORDER OF ADRENAL [place], UNSPECIFIED 09/02/2017 SHANTI, KLARISSA E CASTING MACHINE SET UP OPERATOR Ot I25.10 ATHSCL HEART DISEASE OF [place] CORONARY 09/02/2017 SHANTI KLARISSA E CASTING MACHINE SET UP OPERATOR Ot I27.20 PULMONARY HYPERTENSION, UNSPECIFIED 09/02/2017 SINA MOSERINE E CASTING MACHINE SET UP OPERATOR Ot I51.7 CARDIOMEGALY 09/02/2017 SINA MOSERINE Kristin CASTING MACHINE SET UP OPERATOR Ot J30.9 ALLERGIC RHINITIS, UNSPECIFIED 09/02/2017 SHANTI KLARISSA E CASTING MACHINE SET UP OPERATOR Ot R91.8 OTHER NONSPECIFIC ABNORMAL FINDING OF KIM 09/02/2017 Ot 787.91 SEEMA RRHEA 09/02/2017 Ot 496 CHR AI RWAY OBSTRUCT NEC 09/02/2017 Ot 786.05 GREG RTNESS OF BREATH 09/02/2017 Ot 786.2 COUGH 09/02/2017 FELICITA CEDEÑO MD Ot N39.0 URINARY TRACT INFECTION, SITE NOT SPECIF 09/02/2017 FELICITA CEDEÑO MD Ot R19.7 DIARRHEA, UNSPECIFIED 09/02/2017 FELICITA CEDEÑO MD Ot E11.8 TYPE 2 DIABETES MELLITUS WITH UNSPECIFIE 09/02/2017 Ot 787.91 SEEMA RRHEA 09/02/2017 Ot 496 CHR AI RWAY OBSTRUCT NEC 09/02/2017 Ot 786.05 GREG RTNESS OF BREATH 09/02/2017 Ot 786.2 COUGH 09/02/2017 FELICITA CEDEÑO MD, Ot N39.0 URINARY TRACT INFECTION, SITE NOT SPECIF 09/02/2017 FELICITA CEDEÑO MD, Ot R19.7 DIARRHEA, UNSPECIFIED 09/02/2017 FELICITA CEDEÑO MD Ot E11.8 TYPE 2 DIABETES MELLITUS WITH UNSPECIFIE 09/03/2017 FELICITA CEDEÑO MD, Ot E11.8 TYPE 2 DIABETES MELLITUS WITH UNSPECIFIE 09/03/2017 FELICITA CEDEÑO MD, Ot Z79.4 RATE QUOTING OPERATOR (CURRENT) USE OF INSULIN 09/03/2017 SUHA TAYLOR MD, Ot B96. 20 UNSP ESCHERICHIA COLI THE CAUSE OF DI 09/03/2017 SUHA TAYLOR MD, Ot D63. 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 09/03/2017 SUHA TAYLOR MD, Ot E03. 9 HYPOTHYROIDISM, UNSPECIFIED 09/03/2017 SUHA TAYLOR MD, Ot E11. 9 TYPE 2 DIABETES MELLITUS WITHOUT COMPLIC 09/03/2017 SUHA TAYLOR MD, Ot E87. 1 HYPO-OSMOLALITY AND HYPONATREMIA 09/03/2017 SUHA TAYLOR MD, Ot E87. 5 HYPERKALEMIA 09/03/2017 SUHA TAYLOR MD, Ot F32. 9 MAJOR DEPRESSIVE DISORDER, SINGLE EPISOD 09/03/2017 SUHA TAYLOR MD, Ot F41. 9 ANXIETY DISORDER, UNSPECIFIED 09/03/2017 SUHA TAYLOR MD, Ot G47. 30 SLEEP APNEA, UNSPECIFIED 09/03/2017 SUHA TAYLOR MD, Ot I12. 9 HYPERTENSIVE CHRONIC KIDNEY DISEASE W ST 09/03/2017 SUHA TAYLOR MD, Ot J18. 9 PNEUMONIA, UNSPECIFIED ORGANISM 09/03/2017 SUHA TAYLOR MD, Ot J44. 0 CHRONIC OBSTRUCTIVE PULMON DISEASE W ACU 09/03/2017 SUHA TAYLOR MD, Ot J44. 1 CHRONIC OBSTRUCTIVE PULMONARY DISEASE W 09/03/2017 SUHA TAYLOR MD, Ot K21. 9 GASTRO-ESOPHAGEAL REFLUX DISEASE WITHOUT 09/03/2017 SUHA TAYLOR MD, Ot K44. 9 DIAPHRAGMATIC HERNIA WITHOUT OBSTRUCTION 09/03/2017 SUHA TAYLOR MD, Ot M25.572 PAIN IN LEFT ANKLE AND JOINTS OF LEFT FO 09/03/2017 SUHA TAYLOR MD, Ot N17. 9 ACUTE KIDNEY FAILURE, UNSPECIFIED 09/03/2017 SUHA TAYLOR MD, Ot N18. 4 CHRONIC KIDNEY DISEASE, STAGE 4 (SEVERE) 09/03/2017 SUHA TAYLOR MD, Ot N30. 01 ACUTE CYSTITIS WITH HEMATURIA 09/03/2017 SUHA TAYLOR MD, Ot R04. 2 HEMOPTYSIS 09/03/2017 SUHA TAYLOR MD, Ot R29. 6 REPEATED FALLS 09/03/2017 SUHA TAYLOR MD, Ot R53. 1 WEAKNESS 09/03/2017 SUHA TAYLOR MD, Ot S06.5X0A TRAUM SUBDR HEM W/O LOSS OF CONSCIOUSNES 09/03/2017 SUHA TAYLOR MD, Ot W01.10XA FALL SAME LEV FROM SLIP/TRIP W STRIKE AG 09/03/2017 SUHA TAYLOR MD, Ot Z79. 4 RATE QUOTING OPERATOR (CURRENT) USE OF INSULIN 09/03/2017 SUHA TAYLOR MD, Ot Z99. 81 DEPENDENCE ON SUPPLEMENTAL OXYGEN 09/04/2017 SUHA TAYLOR MD, Ot B96. 20 UNSP ESCHERICHIA COLI THE CAUSE OF DI 09/04/2017 SUHA TAYLOR MD, Ot D63. 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 09/04/2017 SUHA TAYLOR MD, Ot E03. 9 HYPOTHYROIDISM, UNSPECIFIED 09/04/2017 SUHA TAYLOR MD, Ot E11. 9 TYPE 2 DIABETES MELLITUS WITHOUT COMPLIC 09/04/2017 SUHA TAYLOR MD, Ot E87. 1 HYPO-OSMOLALITY AND HYPONATREMIA 09/04/2017 SUHA TAYLOR MD, Ot E87. 5 HYPERKALEMIA 09/04/2017 SUHA TAYLOR MD, Ot F32. 9 MAJOR DEPRESSIVE DISORDER, SINGLE EPISOD 09/04/2017 SUHA TAYLOR MD, Ot F41. 9 ANXIETY DISORDER, UNSPECIFIED 09/04/2017 SUHA TAYLOR MD, Ot G47. 30 SLEEP APNEA, UNSPECIFIED 09/04/2017 SUHA TAYLOR MD, Ot I12. 9 HYPERTENSIVE CHRONIC KIDNEY DISEASE W ST 09/04/2017 SUHA TAYLOR MD, Ot J18. 9 PNEUMONIA, UNSPECIFIED ORGANISM 09/04/2017 SUHA TAYLOR MD, Ot J44. 0 CHRONIC OBSTRUCTIVE PULMON DISEASE W ACU 09/04/2017 SUHA TAYLOR MD, Ot J44. 1 CHRONIC OBSTRUCTIVE PULMONARY DISEASE W 09/04/2017 SUHA TAYLOR MD, Ot K21. 9 GASTRO-ESOPHAGEAL REFLUX DISEASE WITHOUT 09/04/2017 SUHA TAYLOR MD, Ot K44. 9 DIAPHRAGMATIC HERNIA WITHOUT OBSTRUCTION 09/04/2017 SUHA TAYLOR MD, Ot M25.572 PAIN IN LEFT ANKLE AND JOINTS OF LEFT FO 09/04/2017 SUHA TAYLOR MD, Ot N17. 9 ACUTE KIDNEY FAILURE, UNSPECIFIED 09/04/2017 SUHA TAYLOR MD, Ot N18. 4 CHRONIC KIDNEY DISEASE, STAGE 4 (SEVERE) 09/04/2017 SUHA TAYLOR MD, Ot N30. 01 ACUTE CYSTITIS WITH HEMATURIA 09/04/2017 SUHA TAYLOR MD, Ot R04. 2 HEMOPTYSIS 09/04/2017 SUHA TAYLOR MD, Ot R29. 6 REPEATED FALLS 09/04/2017 SUHA TAYLOR MD, Ot R53. 1 WEAKNESS 09/04/2017 SUHA TAYLOR MD, Ot S06.5X0A TRAUM SUBDR HEM W/O LOSS OF CONSCIOUSNES 09/04/2017 SUHA TAYLOR MD, Ot W01.10XA FALL SAME LEV FROM SLIP/TRIP W STRIKE AG 09/04/2017 SUHA TAYLOR MD, Ot Z79. 4 RATE QUOTING OPERATOR (CURRENT) USE OF INSULIN 09/04/2017 SUHA TAYLOR MD, Ot Z99. 81 DEPENDENCE ON SUPPLEMENTAL OXYGEN 09/05/2017 SUHA TAYLOR MD, Ot B96. 20 UNSP ESCHERICHIA COLI THE CAUSE OF DI 09/05/2017 SUHA TAYLOR MD, Ot D63. 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 09/05/2017 SUHA TAYLOR MD, Ot E03. 9 HYPOTHYROIDISM, UNSPECIFIED 09/05/2017 SUHA TAYLOR MD, Ot E11. 9 TYPE 2 DIABETES MELLITUS WITHOUT COMPLIC 09/05/2017 SUHA TAYLOR MD, Ot E87. 1 HYPO-OSMOLALITY AND HYPONATREMIA 09/05/2017 SUHA TAYLOR MD, Ot E87. 5 HYPERKALEMIA 09/05/2017 SUHA TAYLOR MD, Ot F32. 9 MAJOR DEPRESSIVE DISORDER, SINGLE EPISOD 09/05/2017 SUHA TAYLOR MD, Ot F41. 9 ANXIETY DISORDER, UNSPECIFIED 09/05/2017 SUHA TAYLOR MD, Ot G47. 30 SLEEP APNEA, UNSPECIFIED 09/05/2017 SUHA TAYLOR MD, Ot I12. 9 HYPERTENSIVE CHRONIC KIDNEY DISEASE W ST 09/05/2017 SUHA TAYLOR MD, Ot J18. 9 PNEUMONIA, UNSPECIFIED ORGANISM 09/05/2017 SUHA TAYLOR MD, Ot J44. 0 CHRONIC OBSTRUCTIVE PULMON DISEASE W ACU 09/05/2017 SUHA TAYLOR MD, Ot J44. 1 CHRONIC OBSTRUCTIVE PULMONARY DISEASE W 09/05/2017 SUHA TAYLOR MD, Ot K21. 9 GASTRO-ESOPHAGEAL REFLUX DISEASE WITHOUT 09/05/2017 SUHA TAYLOR MD, Ot K44. 9 DIAPHRAGMATIC HERNIA WITHOUT OBSTRUCTION 09/05/2017 SUHA TAYLOR MD, Ot M25.572 PAIN IN LEFT ANKLE AND JOINTS OF LEFT FO 09/05/2017 SUHA TAYLOR MD, Ot N17. 9 ACUTE KIDNEY FAILURE, UNSPECIFIED 09/05/2017 SUHA TAYLOR MD, Ot N18. 4 CHRONIC KIDNEY DISEASE, STAGE 4 (SEVERE) 09/05/2017 SUHA TAYLOR MD, Ot N30. 01 ACUTE CYSTITIS WITH HEMATURIA 09/05/2017 SUHA TAYLOR MD, Ot R04. 2 HEMOPTYSIS 09/05/2017 SUHA TAYLOR MD, Ot R29. 6 REPEATED FALLS 09/05/2017 SUHA TAYLOR MD, Ot R53. 1 WEAKNESS 09/05/2017 SUHA TAYLOR MD, Ot S06.5X0A TRAUM SUBDR HEM W/O LOSS OF CONSCIOUSNES 09/05/2017 SUHA TAYLOR MD, Ot W01.10XA FALL SAME LEV FROM SLIP/TRIP W STRIKE AG 09/05/2017 SUHA TAYLOR MD, Ot Z79. 4 PENITENTIARY (CURRENT) USE OF INSULIN 09/05/2017 SUHA TAYLOR MD, Ot Z99. 81 DEPENDENCE ON SUPPLEMENTAL OXYGEN 09/05/2017 SUHA TAYLOR MD, Ot B96. 20 UNSP ESCHERICHIA COLI THE CAUSE OF DI 09/05/2017 SUHA TAYLOR MD, Ot D63. 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 09/05/2017 SUHA TAYLOR MD, Ot E03. 9 HYPOTHYROIDISM, UNSPECIFIED 09/05/2017 SUHA TAYLOR MD, Ot E11. 9 TYPE 2 DIABETES MELLITUS WITHOUT COMPLIC 09/05/2017 SUHA TAYLOR MD, Ot E87. 1 HYPO-OSMOLALITY AND HYPONATREMIA 09/05/2017 SUHA TAYLOR MD, Ot E87. 5 HYPERKALEMIA 09/05/2017 SUHA TAYLOR MD, Ot F32. 9 MAJOR DEPRESSIVE DISORDER, SINGLE EPISOD 09/05/2017 SUHA TAYLOR MD, Ot F41. 9 ANXIETY DISORDER, UNSPECIFIED 09/05/2017 SUHA TAYLOR MD, Ot G47. 30 SLEEP APNEA, UNSPECIFIED 09/05/2017 SUHA TAYLOR MD, Ot I12. 9 HYPERTENSIVE CHRONIC KIDNEY DISEASE W ST 09/05/2017 SUHA TAYLOR MD, Ot J18. 9 PNEUMONIA, UNSPECIFIED ORGANISM 09/05/2017 SUHA TAYLOR MD, Ot J44. 0 CHRONIC OBSTRUCTIVE PULMON DISEASE W ACU 09/05/2017 SUHA TAYLOR MD, Ot J44. 1 CHRONIC OBSTRUCTIVE PULMONARY DISEASE W 09/05/2017 SUHA TAYLOR MD, Ot K21. 9 GASTRO-ESOPHAGEAL REFLUX DISEASE WITHOUT 09/05/2017 SUHA TAYLOR MD, Ot K44. 9 DIAPHRAGMATIC HERNIA WITHOUT OBSTRUCTION 09/05/2017 SUHA TAYLOR MD, Ot M25.572 PAIN IN LEFT ANKLE AND JOINTS OF LEFT FO 09/05/2017 SUHA TAYLOR MD, Ot N17. 9 ACUTE KIDNEY FAILURE, UNSPECIFIED 09/05/2017 SUHA TAYLOR MD, Ot N18. 4 CHRONIC KIDNEY DISEASE, STAGE 4 (SEVERE) 09/05/2017 SUHA TAYLOR MD, Ot N30. 01 ACUTE CYSTITIS WITH HEMATURIA 09/05/2017 SUHA TAYLOR MD, Ot R04. 2 HEMOPTYSIS 09/05/2017 SUHA TAYLOR MD, Ot R29. 6 REPEATED FALLS 09/05/2017 SUHA TAYLOR MD, Ot R53. 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 81 DEPENDENCE ON SUPPLEMENTAL OXYGEN 09/10/2017 LINDA MCKEON MD Ot B96.2 0 UNSP ESCHERICHIA COLI THE CAUSE OF DI 09/10/2017 LINDA MCKEON MD Ot D64.9 ANEMIA, UNSPECIFIED 09/10/2017 LINDA MCKEON MD Ot E03.9 HYPOTHYROIDISM, UNSPECIFIED 09/10/2017 LINDA MCKEON MD Ot E11.9 TYPE 2 DIABETES MELLITUS WITHOUT COMPLIC 09/10/2017 LINDA MCKEON MD Ot 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 CHRONIC KIDNEY DISEASE W ST 09/10/2017 LINDA MCKEON MD, Ot J18.9 PNEUMONIA, UNSPECIFIED ORGANISM 09/10/2017 LINDA MCKEON MD, Ot J44.9 CHRONIC OBSTRUCTIVE PULMONARY DISEASE, U 09/10/2017 LINDA MCKEON MD Ot N18.4 CHRONIC KIDNEY DISEASE, STAGE 4 (SEVERE) 09/10/2017 LINDA MCKEON MD Ot N39.0 URINARY TRACT INFECTION, SITE NOT SPECIF 09/10/2017 LINDA MCKEON MD, Ot S06.5X9D TRAUM SUBDR HEM W LOC OF UNSP DURATION, 09/10/2017 LINDA MCKEON MD Ot W19.XXXD UNSPECIFIED FALL, SUBSEQUENT ENCOUNTER 09/10/2017 LINDA MCKEON MD Ot Z79.4 PENITENTIARY (CURRENT) USE OF INSULIN 09/10/2017 LINDA MCKEON MD Ot Z91.8 1 HISTORY OF FALLING 10/01/2017 MIRTA TORRES APRN Ot M79.605 PAIN IN LEFT LEG 10/01/2017 MIRTA TORRES APRN Ot R60.0 LOCALIZED EDEMA 10/01/2017 BRIAN MIRTA Lozano APRN Ot M79.605 PAIN IN LEFT LEG 10/01/2017 MIRTA TORRES APRN Ot R60.0 LOCALIZED EDEMA 10/08/2017 MIRTA TORRES APRN Ot M79.89 OTHER SPECIFIED SOFT TISSUE DISORDERS 10/13/2017 MIRTA TORRES APRN Ot M79.89 OTHER SPECIFIED SOFT TISSUE DISORDERS 10/14/2017 CHASITY DE LA CRUZ MD, Ot D50. 9 IRON DEFICIENCY ANEMIA, UNSPECIFIED 10/14/2017 CHASITY DE LA CRUZ MD, Ot D63. 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 10/14/2017 CHASITY DE LA CRUZ MD, Ot E03. 9 HYPOTHYROIDISM, UNSPECIFIED 10/14/2017 CHASITY DE LA CRUZ MD, Ot E11. 22 TYPE 2 DIABETES MELLITUS W DIABETIC SERVICE OBSERVER CHIEF 10/14/2017 CHASITY DE LA CRUZ MD, Ot E78. 2 MIXED HYPERLIPIDEMIA 10/14/2017 CHASITY DE LA CRUZ MD, Ot G47. 33 OBSTRUCTIVE SLEEP APNEA (ADULT) (PEDIATR 10/14/2017 CHASITY DE LA CRUZ MD, Ot I12. 9 HYPERTENSIVE CHRONIC KIDNEY DISEASE W ST 10/14/2017 CHASITY DE LA CRUZ MD, Ot I25. 10 ATHSCL HEART DISEASE OF [place] CORONARY 10/14/2017 CHASITY DE LA CRUZ MD, Ot I27. 20 PULMONARY HYPERTENSION, UNSPECIFIED 10/14/2017 CHASITY DE LA CRUZ MD, Ot I73. 9 PERIPHERAL VASCULAR DISEASE, UNSPECIFIED 10/14/2017 CHASITY DE LA CRUZ MD, Ot J44. 9 CHRONIC OBSTRUCTIVE PULMONARY DISEASE, U 10/14/2017 CHASITY DE LA CRUZ MD, Ot M19. 91 PRIMARY OSTEOARTHRITIS, UNSPECIFIED SITE 10/14/2017 CHASITY DE LA CRUZ MD, Ot N18. 4 CHRONIC KIDNEY DISEASE, STAGE 4 (SEVERE) 10/14/2017 CHASITY DE LA CRUZ MD, Ot R91. 1 SOLITARY PULMONARY NODULE 10/14/2017 CHASITY DE LA CRUZ MD, Ot Z79. 4 RATE QUOTING OPERATOR (CURRENT) USE OF INSULIN 10/14/2017 CHASITY DE LA CRUZ MD, Ot Z79. 82 RATE QUOTING OPERATOR (CURRENT) USE OF ASPIRIN 10/14/2017 CHASITY DE LA CRUZ MD, Ot Z79.899 OTHER RATE QUOTING OPERATOR (CURRENT) DRUG THERAPY 10/14/2017 SHANTI, KLARISSA E CASTING MACHINE SET UP OPERATOR Ot E27.9 DISORDER OF [place], UNSPECIFIED 10/14/2017 KLARISSA MOSER CASTING MACHINE SET UP OPERATOR Ot I25.10 ATHSCL HEART DISEASE OF [place] CORONARY 10/14/2017 KLARISSA MOSER APRN Ot I27.20 PULMONARY HYPERTENSION, UNSPECIFIED 10/14/2017 KLARISSA MOSER APRN Ot I51.7 CARDIOMEGALY 10/14/2017 KLARISSA MOSER APRN Ot J30.9 ALLERGIC RHINITIS, UNSPECIFIED 10/14/2017 KLARISSA MOSER CASTING MACHINE SET UP OPERATOR Ot R91.8 OTHER NONSPECIFIC ABNORMAL FINDING OF KIM 10/22/2017 MIRTA TORRES CASTING MACHINE SET UP OPERATOR Ot M79.605 PAIN IN LEFT LEG 10/22/2017 MIRTA TORRES APRN Ot R60.0 LOCALIZED EDEMA 10/22/2017 Ot 787.91 SEEMA RRHEA 10/22/2017 Ot 496 CHR AI RWAY OBSTRUCT NEC 10/22/2017 Ot 786.05 GREG RTNESS OF BREATH 10/22/2017 Ot 786.2 COUGH 10/22/2017 GALA TY, FELICITA Borges Ot N39.0 URINARY TRACT INFECTION, SITE NOT SPECIF 10/22/2017 FELICITA CEDEÑO MD Ot R19.7 DIARRHEA, UNSPECIFIED 10/28/2017 MIRTA TORRES CASTING MACHINE SET UP OPERATOR Ot M79.605 PAIN IN LEFT LEG 10/28/2017 MIRTA TORRES APRN Ot R60.0 LOCALIZED EDEMA 10/28/2017 MIRTA TORRES CASTING MACHINE SET UP OPERATOR Ot M79.89 OTHER SPECIFIED SOFT TISSUE DISORDERS 10/29/2017 ALENCHO DPSANJUANA Benitez Ot D63.8 ANEMIA IN OTHER CHRONIC DISEASES CLASSIF 10/29/2017 BLANCHO DPSANJUANA Benitez Ot D69.6 THROMBOCYTOPENIA, UNSPECIFIED 10/29/2017 BLANCHO DPSANJUANA Benitez Ot E11.618 TYPE 2 DIABETES MELLITUS WITH OTHER DIAB 10/29/2017 ALENCHO DPSANJUANA Benitez Ot E78.5 HYPERLIPIDEMIA, UNSPECIFIED 10/29/2017 ALENCHO DPSANJUANA Benitez Ot E87.1 HYPO-OSMOLALITY AND HYPONATREMIA 10/29/2017 TYLERHO DPSANJUANA Benitez Ot F03.90 UNSPECIFIED DEMENTIA WITHOUT BEHAVIORAL 10/29/2017 BLANCHO DPSANJUANA Benitez Ot F32.9 MAJOR DEPRESSIVE DISORDER, SINGLE EPISOD 10/29/2017 BLANCHO DPM, SANJUANA Hess Ot F41.9 ANXIETY DISORDER, UNSPECIFIED 10/29/2017 BLANCHO DPM, SANJUANA Hess Ot G47.33 OBSTRUCTIVE SLEEP APNEA (ADULT) (PEDIATR 10/29/2017 BLANCHO DPM, SANJUANA Hess Ot I1 0 ESSENTIAL (PRIMARY) HYPERTENSION 10/29/2017 BLANCHO DPM, SANJUANA Hess Ot 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 CHRONIC KIDNEY DISEASE W ST 10/29/2017 BLANCHO DPM, SANJUANA Hess Ot 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 10/29/2017 BLANCHO DPM, SANJUANA Hess Ot J15.0 PNEUMONIA DUE TO KLEBSIELLA PNEUMONIAE 10/29/2017 BLANCHO DPM, SANJUANA Hess Ot K21.9 GASTRO-ESOPHAGEAL REFLUX DISEASE WITHOUT 10/29/2017 BLANCHO DPM, SANJUANA Hess Ot K44.9 DIAPHRAGMATIC HERNIA WITHOUT OBSTRUCTION 10/29/2017 BLANCHO DPM, SANJUANA Hess Ot K59.00 CONSTIPATION, UNSPECIFIED 10/29/2017 BLANCHO DPM, SANJUANA Hess Ot M19.91 PRIMARY OSTEOARTHRITIS, UNSPECIFIED SITE 10/29/2017 BLANCHO DPM, SANJUANA Hess Ot N17.9 ACUTE KIDNEY FAILURE, UNSPECIFIED 10/29/2017 BLANCHO DPM, SANJUANA Hess Ot N18.3 CHRONIC KIDNEY DISEASE, STAGE 3 (MODERAT 10/29/2017 BLANCHO DPM, SANJUANA Hess Ot R07.9 CHEST PAIN, UNSPECIFIED 10/29/2017 BLANCHO DPM, SANJUANA Hess Ot R19.7 DIARRHEA, UNSPECIFIED 10/29/2017 BLANCHO DPM, SANJUANA Hess Ot R29.6 REPEATED FALLS 10/29/2017 BLANCHO DPM, SANJUANA Hess Ot R53.1 WEAKNESS 10/29/2017 BLANCHO DPM, SANJUANA Hess Ot R91.1 SOLITARY PULMONARY NODULE 10/29/2017 BLANCHO DPM, SANJUANA Hess Ot S06.5X9S TRAUM SUBDR HEM W LOC OF UNSP DURATION, 10/29/2017 BLANCHO DPM, SANJUANA Hess Ot T50.1X5A ADVERSE EFFECT OF LOOP DIURETICS, INITIA 10/29/2017 BLANCHO DPM, SANJUANA Hess Ot Z79.4 RATE QUOTING OPERATOR (CURRENT) USE OF INSULIN 10/29/2017 BLANCHO DPM, SANJUANA Hess Ot Z87.01 PERSONAL HISTORY OF PNEUMONIA (RECURRENT 10/29/2017 BLANCHO DPM, SANJUANA Hess Ot Z95.5 PRESENCE OF CORONARY ANGIOPLASTY IMPLANT 10/29/2017 BLANCHO DPM, SANJUANA Hess Ot D63.8 ANEMIA IN OTHER CHRONIC DISEASES CLASSIF 10/29/2017 BLANCHO DPM, SANJUANA Hess Ot 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 10/29/2017 BLANCHO DPM, SANJUANA Hess Ot E78.5 HYPERLIPIDEMIA, UNSPECIFIED 10/29/2017 BLANCHO DPM, SANJUANA Hess Ot E87.1 HYPO-OSMOLALITY AND HYPONATREMIA 10/29/2017 BLANCHO DPM, SANJUANA Hess Ot F03.90 UNSPECIFIED DEMENTIA WITHOUT BEHAVIORAL 10/29/2017 BLANCHO DPM, SANJUANA Hess Ot F32.9 MAJOR DEPRESSIVE DISORDER, SINGLE EPISOD 10/29/2017 BLANCHO DPM, SANJUANA Hess Ot F41.9 ANXIETY DISORDER, UNSPECIFIED 10/29/2017 BLANCHO DPM, SANJUANA Hess Ot G47.33 OBSTRUCTIVE SLEEP APNEA (ADULT) (PEDIATR 10/29/2017 BLANCHO DPM, SANJUANA Hess Ot I1 0 ESSENTIAL (PRIMARY) HYPERTENSION 10/29/2017 BLANCHO DPM, SANJUANA Hess Ot 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 CHRONIC KIDNEY DISEASE W ST 10/29/2017 BLANCHO DPM, SANJUANA Hess Ot 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 10/29/2017 BLANCHO DPM, SANJUANA Hess Ot K21.9 GASTRO-ESOPHAGEAL REFLUX DISEASE WITHOUT 10/29/2017 BLANCHO DPM, SANJUANA Hess Ot K44.9 DIAPHRAGMATIC HERNIA WITHOUT OBSTRUCTION 10/29/2017 BLANCHO DPM, SANJUANA Hess Ot M19.91 PRIMARY OSTEOARTHRITIS, UNSPECIFIED SITE 10/29/2017 BLANCHO DPM, SANJUANA Hess Ot N18.9 CHRONIC KIDNEY DISEASE, UNSPECIFIED 10/29/2017 BLANCHO DPM, SANJUANA Hess Ot R07.9 CHEST PAIN, UNSPECIFIED 10/29/2017 BLANCHO DPM, SANJUANA Hess Ot R91.1 SOLITARY PULMONARY NODULE 10/29/2017 ALENCHO DPM, SANJUANA Hess Ot S06.5X9S TRAUM SUBDR HEM W LOC OF UNSP DURATION, 10/29/2017 BLANCHO DPM, SANJUANA Hess Ot S92.902A UNSP FRACTURE OF LEFT FOOT, INIT ENCNTR 10/29/2017 BLANCHO DPM, SANJUANA Hess Ot T50.1X5A ADVERSE EFFECT OF LOOP DIURETICS, INITIA 10/29/2017 BLANCHO DPM, SANJUANA Hess Ot Z79.4 RATE QUOTING OPERATOR (CURRENT) USE OF INSULIN 10/29/2017 ALENCHO ABIMAELM, SANJUANA Hess Ot Z87.01 PERSONAL HISTORY OF PNEUMONIA (RECURRENT 10/29/2017 TYLERHO KEEGAN, SANJUANA Hess Ot Z95.5 PRESENCE OF CORONARY ANGIOPLASTY IMPLANT 11/11/2017 ALENCHO DPM, SANJUANA Hess Ot D63.8 ANEMIA IN OTHER CHRONIC DISEASES CLASSIF 11/11/2017 BLANCHO DPM, SANJUANA Hess Ot D69.6 THROMBOCYTOPENIA, UNSPECIFIED 11/11/2017 BLANCHO DPM, SANJUANA Hess Ot E11.618 TYPE 2 DIABETES MELLITUS WITH OTHER DIAB 11/11/2017 BLANCHO DPM, SANJUANA Hess Ot E78.5 HYPERLIPIDEMIA, UNSPECIFIED 11/11/2017 BLANCHO DPM, SANJUANA Hess Ot E87.1 HYPO-OSMOLALITY AND HYPONATREMIA 11/11/2017 ALENCHO DPM, SANJUANA Hess Ot F03.90 UNSPECIFIED DEMENTIA WITHOUT BEHAVIORAL 11/11/2017 BLANCHO DPM, SANJUANA Hess Ot F32.9 MAJOR DEPRESSIVE DISORDER, SINGLE EPISOD 11/11/2017 BLANCHO DPM, SANJUANA Hess Ot F41.9 ANXIETY DISORDER, UNSPECIFIED 11/11/2017 BLANCHO DPM, SANJUANA Hess Ot G47.33 OBSTRUCTIVE SLEEP APNEA (ADULT) (PEDIATR 11/11/2017 BLAMATAHO DPM, SANJUANA Hess Ot I1 0 ESSENTIAL (PRIMARY) HYPERTENSION 11/11/2017 BLANCHO DPM, SANJUANA Hess Ot 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 CHRONIC KIDNEY DISEASE W ST 11/11/2017 BLANCHO DPM, SANJUANA Hess Ot 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 11/11/2017 BLANCHO DPM, SANJUANA Hess Ot J15.0 PNEUMONIA DUE TO KLEBSIELLA PNEUMONIAE 11/11/2017 BLANCHO DPM, SANJUANA Hess Ot K21.9 GASTRO-ESOPHAGEAL REFLUX DISEASE WITHOUT 11/11/2017 BLANCHO DPM, SANJUANA Hess Ot K44.9 DIAPHRAGMATIC HERNIA WITHOUT OBSTRUCTION 11/11/2017 ALENCHO DPM, SANJUANA Hess Ot K59.00 CONSTIPATION, UNSPECIFIED 11/11/2017 BLANCHO DPM, SANJUANA Hess Ot M19.91 PRIMARY OSTEOARTHRITIS, UNSPECIFIED SITE 11/11/2017 BLANCHO DPM, SANJUANA Hess Ot N17.9 ACUTE KIDNEY FAILURE, UNSPECIFIED 11/11/2017 BLANCHO DPM, SANJUANA Hess Ot N18.3 CHRONIC KIDNEY DISEASE, STAGE 3 (MODERAT 11/11/2017 BLANCHO DPM, SANJUANA Hess Ot R07.9 CHEST PAIN, UNSPECIFIED 11/11/2017 BLANCHO DPM, SANJUANA Hess Ot R19.7 DIARRHEA, UNSPECIFIED 11/11/2017 BLANCHO DPM, SANJUANA Hess Ot R29.6 REPEATED FALLS 11/11/2017 BLANCHO DPM, SANJUANA Hess Ot R53.1 WEAKNESS 11/11/2017 BLANCHO DPM, SANJUANA Hess Ot R91.1 SOLITARY PULMONARY NODULE 11/11/2017 BLANCHO DPM, SANJUANA Hess Ot S06.5X9S TRAUM SUBDR HEM W LOC OF UNSP DURATION, 11/11/2017 BLANCHO DPM, SANJUANA Hess Ot T50.1X5A ADVERSE EFFECT OF LOOP DIURETICS, INITIA 11/11/2017 BLANCHO DPM, SANJUANA Deshawn Ot Z79.4 PENITENTIARY (CURRENT) USE OF INSULIN 11/11/2017 BLANCHO DPM, SANJUANA Hess Ot Z87.01 PERSONAL HISTORY OF PNEUMONIA (RECURRENT 11/11/2017 BLANCHO DPM, SANJUANA Hess Ot Z95.5 PRESENCE OF CORONARY ANGIOPLASTY IMPLANT 11/13/2017 CHASITY DE LA CRUZ MD, Ot D50. 9 IRON DEFICIENCY ANEMIA, UNSPECIFIED 11/13/2017 CHASITY DE LA CRUZ MD, Ot D63. 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 11/13/2017 CHASITY DE LA CRUZ MD, Ot E03. 9 HYPOTHYROIDISM, UNSPECIFIED 11/13/2017 CHASITY DE LA CRUZ MD, Ot E11. 22 TYPE 2 DIABETES MELLITUS W DIABETIC SERVICE OBSERVER CHIEF 11/13/2017 CHASITY DE LA CRUZ MD, Ot E78. 2 MIXED HYPERLIPIDEMIA 11/13/2017 CHASITY DE LA CRUZ MD, Ot G47. 33 OBSTRUCTIVE SLEEP APNEA (ADULT) (PEDIATR 11/13/2017 CHASITY DE LA CRUZ MD, Ot I12. 9 HYPERTENSIVE CHRONIC KIDNEY DISEASE W ST 11/13/2017 CHASITY DE LA CRUZ MD, Ot I25. 10 ATHSCL HEART DISEASE OF [place] CORONARY 11/13/2017 CHASITY DE LA CRUZ MD, Ot I27. 20 PULMONARY HYPERTENSION, UNSPECIFIED 11/13/2017 CHASITY DE LA CRUZ MD, Ot I73. 9 PERIPHERAL VASCULAR DISEASE, UNSPECIFIED 11/13/2017 CHASITY DE LA CRUZ MD, Ot J44. 9 CHRONIC OBSTRUCTIVE PULMONARY DISEASE, U 11/13/2017 CHASITY DE LA CRUZ MD, Ot M19. 91 PRIMARY OSTEOARTHRITIS, UNSPECIFIED SITE 11/13/2017 CHASITY DE LA CRUZ MD, Ot N18. 4 CHRONIC KIDNEY DISEASE, STAGE 4 (SEVERE) 11/13/2017 CHASITY DE LA CRUZ MD, Ot R91. 1 SOLITARY PULMONARY NODULE 11/13/2017 CHASITY DE LA CRUZ MD, Ot Z79. 4 RATE QUOTING OPERATOR (CURRENT) USE OF INSULIN 11/13/2017 CHASITY DE LA CRUZ MD, Ot Z79. 82 PENITENTIARY (CURRENT) USE OF ASPIRIN 11/13/2017 CHASITY DE LA CRUZ MD, Ot Z79.899 OTHER RATE QUOTING OPERATOR (CURRENT) DRUG THERAPY 11/21/2017 CHASITY DE LA CRUZ MD, Ot D50. 9 IRON DEFICIENCY ANEMIA, UNSPECIFIED 11/21/2017 CHASITY DE LA CRUZ MD, Ot D63. 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 11/21/2017 CHASITY DE LA CRUZ MD, Ot E03. 9 HYPOTHYROIDISM, UNSPECIFIED 11/21/2017 CHASITY DE LA CRUZ MD Ot E11. 22 TYPE 2 DIABETES MELLITUS W DIABETIC SERVICE OBSERVER CHIEF 11/21/2017 CHASITY DE LA CRUZ MD, Ot E78. 2 MIXED HYPERLIPIDEMIA 11/21/2017 CHASITY DE LA CRUZ MD, Ot G47. 33 OBSTRUCTIVE SLEEP APNEA (ADULT) (PEDIATR 11/21/2017 CHASITY DE LA CRUZ MD, Ot I12. 9 HYPERTENSIVE CHRONIC KIDNEY DISEASE W ST 11/21/2017 CHASITY DE LA CRUZ MD, Ot I25. 10 ATHSCL HEART DISEASE OF [place] CORONARY 11/21/2017 CHASITY DE LA CRUZ MD, Ot I27. 20 PULMONARY HYPERTENSION, UNSPECIFIED 11/21/2017 CHASITY DE LA CRUZ MD, Ot I73. 9 PERIPHERAL VASCULAR DISEASE, UNSPECIFIED 11/21/2017 CHASITY DE LA CRUZ MD, Ot J44. 9 CHRONIC OBSTRUCTIVE PULMONARY DISEASE, U 11/21/2017 CHASITY DE LA CRUZ MD, Ot M19. 91 PRIMARY OSTEOARTHRITIS, UNSPECIFIED SITE 11/21/2017 CHASITY DE LA CRUZ MD, Ot N18. 4 CHRONIC KIDNEY DISEASE, STAGE 4 (SEVERE) 11/21/2017 CHASITY DE LA CRUZ MD, Ot R91. 1 SOLITARY PULMONARY NODULE 11/21/2017 XUN MD, EPPS-GUI Ot Z79. 4 RATE QUOTING OPERATOR (CURRENT) USE OF INSULIN 11/21/2017 CHASITY DE LA CRUZ MD Ot Z79. 82 PENITENTIARY (CURRENT) USE OF ASPIRIN 11/21/2017 CHASITY DE LA CRUZ MD Ot Z79.899 OTHER PENITENTIARY (CURRENT) DRUG THERAPY 11/21/2017 DINORA GREEN Ot D50.9 IRON DEFICIENCY ANEMIA, UNSPECIFIED 11/21/2017 DINORA GREEN Ot D63.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 11/21/2017 DINORA GREEN Ot E03.9 HYPOTHYROIDISM, UNSPECIFIED 11/21/2017 DINORA GREEN Ot 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 11/21/2017 DINORA GREEN Ot E78.2 MIXED HYPERLIPIDEMIA 11/21/2017 DINORA GREEN Ot G47.33 OBSTRUCTIVE SLEEP APNEA (ADULT) (PEDIATR 11/21/2017 DINORA GREEN Ot 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 CHRONIC KIDNEY DISEASE W ST 11/21/2017 DINORA GREEN Ot I25.10 ATHSCL HEART DISEASE OF [place] CORONARY 11/21/2017 DINORA GREEN N Ot I27.20 PULMONARY HYPERTENSION, UNSPECIFIED 11/21/2017 DINORA GREEN Ot I73.9 PERIPHERAL VASCULAR DISEASE, UNSPECIFIED 11/21/2017 DINORA GREEN Ot J44.9 CHRONIC OBSTRUCTIVE PULMONARY DISEASE, U 11/21/2017 DINORA GREEN Ot M19.91 PRIMARY OSTEOARTHRITIS, UNSPECIFIED SITE 11/21/2017 DINORA GREEN Ot N18.4 CHRONIC KIDNEY DISEASE, STAGE 4 (SEVERE) 11/21/2017 DINORA GREEN Ot R91.1 SOLITARY PULMONARY NODULE 11/21/2017 DINORA GREEN Ot Z79.4 RATE QUOTING OPERATOR (CURRENT) USE OF INSULIN 11/21/2017 DINORA GREEN Ot Z79.82 PENITENTIARY (CURRENT) USE OF ASPIRIN 11/21/2017 DINORA GREEN Ot Z79.899 OTHER RATE QUOTING OPERATOR (CURRENT) DRUG THERAPY 11/25/2017 DINORA GREEN Ot D50.9 IRON DEFICIENCY ANEMIA, UNSPECIFIED 11/25/2017 DINORA GREEN Ot D63.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 11/25/2017 DINORA GREEN Ot E03.9 HYPOTHYROIDISM, UNSPECIFIED 11/25/2017 NORMADINORA REYES N Ot 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 11/25/2017 DINORA GREEN N Ot E78.2 MIXED HYPERLIPIDEMIA 11/25/2017 NORMADINORA REYES N Ot G47.33 OBSTRUCTIVE SLEEP APNEA (ADULT) (PEDIATR 11/25/2017 NORMADINORA REYES N Ot 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 CHRONIC KIDNEY DISEASE W ST 11/25/2017 NORMADINORA REYES N Ot I25.10 ATHSCL HEART DISEASE OF [place] CORONARY 11/25/2017 DINORA GREEN N Ot I27.20 PULMONARY HYPERTENSION, UNSPECIFIED 11/25/2017 NORMADINORA REYES N Ot I73.9 PERIPHERAL VASCULAR DISEASE, UNSPECIFIED 11/25/2017 DINORA GREEN N Ot J44.9 CHRONIC OBSTRUCTIVE PULMONARY DISEASE, U 11/25/2017 DINORA GREEN N Ot M19.91 PRIMARY OSTEOARTHRITIS, UNSPECIFIED SITE 11/25/2017 DINORA GREEN N Ot N18.4 CHRONIC KIDNEY DISEASE, STAGE 4 (SEVERE) 11/25/2017 DINORA GREEN N Ot R91.1 SOLITARY PULMONARY NODULE 11/25/2017 DINORA GREEN N Ot Z79.4 RATE QUOTING OPERATOR (CURRENT) USE OF INSULIN 11/25/2017 DINORA GREEN N Ot Z79.82 RATE QUOTING OPERATOR (CURRENT) USE OF ASPIRIN 11/25/2017 DINORA GREEN N Ot Z79.899 OTHER PENITENTIARY (CURRENT) DRUG THERAPY 11/26/2017 DINORA GREEN N Ot D50.9 IRON DEFICIENCY ANEMIA, UNSPECIFIED 11/26/2017 DINORA GREEN N Ot D63.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 11/26/2017 DINORA GREEN N Ot E03.9 HYPOTHYROIDISM, UNSPECIFIED 11/26/2017 DINORA GREEN N Ot 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 11/26/2017 DINORA GREEN N Ot E78.2 MIXED HYPERLIPIDEMIA 11/26/2017 DINORA GREEN N Ot G47.33 OBSTRUCTIVE SLEEP APNEA (ADULT) (PEDIATR 11/26/2017 DINORA GREEN N Ot 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 CHRONIC KIDNEY DISEASE W ST 11/26/2017 DINORA GREEN N Ot I25.10 ATHSCL HEART DISEASE OF [place] CORONARY 11/26/2017 DINORA GREEN N Ot I27.20 PULMONARY HYPERTENSION, UNSPECIFIED 11/26/2017 DINORA GREEN N Ot I73.9 PERIPHERAL VASCULAR DISEASE, UNSPECIFIED 11/26/2017 DINORA GREEN Ot J44.9 CHRONIC OBSTRUCTIVE PULMONARY DISEASE, U 11/26/2017 DINORA GREEN Ot M19.91 PRIMARY OSTEOARTHRITIS, UNSPECIFIED SITE 11/26/2017 DINORA GREEN Ot N18.4 CHRONIC KIDNEY DISEASE, STAGE 4 (SEVERE) 11/26/2017 DINORA GREEN Ot R91.1 SOLITARY PULMONARY NODULE 11/26/2017 DINORA GREEN Ot Z79.4 PENITENTIARY (CURRENT) USE OF INSULIN 11/26/2017 DINORA GREEN Ot Z79.82 PENITENTIARY (CURRENT) USE OF ASPIRIN 11/26/2017 DINORA GREEN Ot Z79.899 OTHER RATE QUOTING OPERATOR (CURRENT) DRUG THERAPY 01/16/2018 DINORA GREEN Ot D50.9 IRON DEFICIENCY ANEMIA, UNSPECIFIED 01/16/2018 DINORA GREEN Ot D63.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 01/16/2018 DINORA GREEN Ot E03.9 HYPOTHYROIDISM, UNSPECIFIED 01/16/2018 DINORA GREEN N Ot 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 01/16/2018 DINORA GREEN Ot E78.2 MIXED HYPERLIPIDEMIA 01/16/2018 DINORA GREEN N Ot G47.33 OBSTRUCTIVE SLEEP APNEA (ADULT) (PEDIATR 01/16/2018 DINORA GREEN N Ot 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 CHRONIC KIDNEY DISEASE W ST 01/16/2018 DINORA GREEN Ot I25.10 ATHSCL HEART DISEASE OF [place] CORONARY 01/16/2018 DINORA GREEN Ot I27.20 PULMONARY HYPERTENSION, UNSPECIFIED 01/16/2018 DINORA GREEN Ot I73.9 PERIPHERAL VASCULAR DISEASE, UNSPECIFIED 01/16/2018 DINORA GREEN Ot J44.9 CHRONIC OBSTRUCTIVE PULMONARY DISEASE, U 01/16/2018 DINORA GREEN N Ot M19.91 PRIMARY OSTEOARTHRITIS, UNSPECIFIED SITE 01/16/2018 DINORA GREEN N Ot N18.4 CHRONIC KIDNEY DISEASE, STAGE 4 (SEVERE) 01/16/2018 DINORA GREEN Ot R91.1 SOLITARY PULMONARY NODULE 01/16/2018 DINORA GREEN N Ot Z79.4 RATE QUOTING OPERATOR (CURRENT) USE OF INSULIN 01/16/2018 DINORA GREEN N Ot Z79.82 PENITENTIARY (CURRENT) USE OF ASPIRIN 01/16/2018 DINORA GREEN N Ot Z79.899 OTHER RATE QUOTING OPERATOR (CURRENT) DRUG THERAPY 01/21/2018 DINORA GREEN N Ot D50.9 IRON DEFICIENCY ANEMIA, UNSPECIFIED 01/21/2018 DINORA GREEN N Ot D63.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 01/21/2018 DINORA GREEN N Ot E03.9 HYPOTHYROIDISM, UNSPECIFIED 01/21/2018 DINORA GREEN N Ot 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 01/21/2018 DINORA GREEN N Ot E78.2 MIXED HYPERLIPIDEMIA 01/21/2018 DINORA GREEN N Ot G47.33 OBSTRUCTIVE SLEEP APNEA (ADULT) (PEDIATR 01/21/2018 DINORA GREEN N Ot 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 CHRONIC KIDNEY DISEASE W ST 01/21/2018 DINORA GREEN N Ot I25.10 ATHSCL HEART DISEASE OF [place] CORONARY 01/21/2018 DINORA GREEN N Ot I27.20 PULMONARY HYPERTENSION, UNSPECIFIED 01/21/2018 DINORA GREEN N Ot I73.9 PERIPHERAL VASCULAR DISEASE, UNSPECIFIED 01/21/2018 DINORA GREEN N Ot J44.9 CHRONIC OBSTRUCTIVE PULMONARY DISEASE, U 01/21/2018 DINORA GREEN N Ot M19.91 PRIMARY OSTEOARTHRITIS, UNSPECIFIED SITE 01/21/2018 DINORA GREEN N Ot N18.4 CHRONIC KIDNEY DISEASE, STAGE 4 (SEVERE) 01/21/2018 DINORA GREEN N Ot R91.1 SOLITARY PULMONARY NODULE 01/21/2018 DINORA GREEN N Ot Z79.4 PENITENTIARY (CURRENT) USE OF INSULIN 01/21/2018 DINORA GREEN N Ot Z79.82 PENITENTIARY (CURRENT) USE OF ASPIRIN 01/21/2018 DINORA GREEN N Ot Z79.899 OTHER PENITENTIARY (CURRENT) DRUG THERAPY 02/23/2018 DINORA GREEN N Ot D50.9 IRON DEFICIENCY ANEMIA, UNSPECIFIED 02/23/2018 DINORA GREEN N Ot D63.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 02/23/2018 DINORA GREEN N Ot E03.9 HYPOTHYROIDISM, UNSPECIFIED 02/23/2018 NORMAJOSIE REYESAN N Ot 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 02/23/2018 DINORA RGEEN N Ot E78.2 MIXED HYPERLIPIDEMIA 02/23/2018 DINORA GREEN N Ot G47.33 OBSTRUCTIVE SLEEP APNEA (ADULT) (PEDIATR 02/23/2018 NORMADINORA REYES N Ot 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 CHRONIC KIDNEY DISEASE W ST 02/23/2018 NORMADINORA N Ot I25.10 ATHSCL HEART DISEASE OF [place] CORONARY 02/23/2018 DINORA GREEN N Ot I27.20 PULMONARY HYPERTENSION, UNSPECIFIED 02/23/2018 DINORA GREEN N Ot I73.9 PERIPHERAL VASCULAR DISEASE, UNSPECIFIED 02/23/2018 DINORA GREEN N Ot J44.9 CHRONIC OBSTRUCTIVE PULMONARY DISEASE, U 02/23/2018 DINORA GREEN N Ot M19.91 PRIMARY OSTEOARTHRITIS, UNSPECIFIED SITE 02/23/2018 DINORA GREEN N Ot N18.4 CHRONIC KIDNEY DISEASE, STAGE 4 (SEVERE) 02/23/2018 DINORA GREEN N Ot R91.1 SOLITARY PULMONARY NODULE 02/23/2018 DINORA GREEN N Ot Z79.4 RATE QUOTING OPERATOR (CURRENT) USE OF INSULIN 02/23/2018 DINORA GREEN N Ot Z79.82 PENITENTIARY (CURRENT) USE OF ASPIRIN 02/23/2018 DINORA GREEN N Ot Z79.899 OTHER RATE QUOTING OPERATOR (CURRENT) DRUG THERAPY 02/24/2018 DINORA GREEN N Ot D50.9 IRON DEFICIENCY ANEMIA, UNSPECIFIED 02/24/2018 DINORA GREEN N Ot D63.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 02/24/2018 DINORA GREEN N Ot E03.9 HYPOTHYROIDISM, UNSPECIFIED 02/24/2018 DINORA GREEN N Ot 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 02/24/2018 DINORA GREEN N Ot E78.2 MIXED HYPERLIPIDEMIA 02/24/2018 NORMA BOBRACHELLE N Ot G47.33 OBSTRUCTIVE SLEEP APNEA (ADULT) (PEDIATR 02/24/2018 DINORA GREEN N Ot 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 CHRONIC KIDNEY DISEASE W ST 02/24/2018 NORMADINORA N Ot I25.10 ATHSCL HEART DISEASE OF [place] CORONARY 02/24/2018 DINORA GREEN Ot I27.20 PULMONARY HYPERTENSION, UNSPECIFIED 02/24/2018 DINORA GREEN Ot I73.9 PERIPHERAL VASCULAR DISEASE, UNSPECIFIED 02/24/2018 DINORA GREEN Ot J44.9 CHRONIC OBSTRUCTIVE PULMONARY DISEASE, U 02/24/2018 DINORA GREEN Ot M19.91 PRIMARY OSTEOARTHRITIS, UNSPECIFIED SITE 02/24/2018 DINORA GREEN Ot N18.4 CHRONIC KIDNEY DISEASE, STAGE 4 (SEVERE) 02/24/2018 DINORA GREEN Ot R91.1 SOLITARY PULMONARY NODULE 02/24/2018 DINORA GREEN Ot Z79.4 PENITENTIARY (CURRENT) USE OF INSULIN 02/24/2018 DINORA GREEN Casi Ot Z79.82 PENITENTIARY (CURRENT) USE OF ASPIRIN 02/24/2018 DINORA GREEN Ot Z79.899 OTHER PENITENTIARY (CURRENT) DRUG THERAPY 02/25/2018 Ot D64.9 ANEM IA, UNSPECIFIED 02/25/2018 Ot E11.9 TYPE 2 DIABETES MELLITUS WITHOUT COMPLIC 02/25/2018 Ot F03.90 UNS PECIFIED DEMENTIA WITHOUT BEHAVIORAL 02/25/2018 Ot F32.9 AUGUSTINE R DEPRESSIVE DISORDER, SINGLE EPISOD 02/25/2018 Ot F41.9 ANXI ETY DISORDER, UNSPECIFIED 02/25/2018 Ot G47.30 SLE EP APNEA, UNSPECIFIED 02/25/2018 Ot I10 ESSENT IAL (PRIMARY) HYPERTENSION 02/25/2018 Ot I25.10 ATH SCL HEART DISEASE OF [place] CORONARY 02/25/2018 Ot J44.9 SERVICE OBSERVER CHIEF LORI OBSTRUCTIVE PULMONARY DISEASE, U 02/25/2018 Ot 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 02/25/2018 Ot N39.0 URIN SOCORRO TRACT INFECTION, SITE NOT SPECIF 02/25/2018 Ot R10.30 LOW ER ABDOMINAL PAIN, UNSPECIFIED 02/25/2018 Ot Z79.4 PENITENTIARY (CURRENT) USE OF INSULIN 02/25/2018 Ot Z79.51 MITESH G TERM (CURRENT) USE OF INHALED STERO 02/25/2018 Ot Z82.49 FAM ATYA HX OF ISCHEM HEART DIS AND OTH DI 02/25/2018 Ot Z86.010 PE RSONAL HISTORY OF COLONIC POLYPS 02/25/2018 Ot Z87.01 PER MALINDA HISTORY OF PNEUMONIA (RECURRENT 02/25/2018 Ot Z87.19 PER MALINDA HISTORY OF OTHER DISEASES OF TH 02/25/2018 Ot Z87.448 PE RSONAL HISTORY OF OTHER DISEASES OF UR 02/25/2018 Ot Z88.0 MICA RGY STATUS TO PENICILLIN 02/25/2018 Ot Z88.7 MICA RGY STATUS TO SERUM AND VACCINE STAT 02/25/2018 Ot Z90.710 AC QUIRED ABSENCE OF BOTH CERVIX AND UTER 02/25/2018 Ot Z90.89 ACQ UIRED ABSENCE OF OTHER ORGANS 03/17/2018 DINORA GREEN N Ot D50.9 IRON DEFICIENCY ANEMIA, UNSPECIFIED 03/17/2018 DINORA GREEN N Ot D63.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 03/17/2018 DINORA GREEN N Ot E03.9 HYPOTHYROIDISM, UNSPECIFIED 03/17/2018 DINORA GREEN N Ot 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 03/17/2018 DINORA GREEN N Ot E78.2 MIXED HYPERLIPIDEMIA 03/17/2018 DINORA GREEN N Ot G47.33 OBSTRUCTIVE SLEEP APNEA (ADULT) (PEDIATR 03/17/2018 DINORA GREEN N Ot 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 CHRONIC KIDNEY DISEASE W ST 03/17/2018 DINORA GREEN N Ot I25.10 ATHSCL HEART DISEASE OF [place] CORONARY 03/17/2018 DINORA GREEN N Ot I27.20 PULMONARY HYPERTENSION, UNSPECIFIED 03/17/2018 DINORA GREEN N Ot I73.9 PERIPHERAL VASCULAR DISEASE, UNSPECIFIED 03/17/2018 DINORA GREEN N Ot J44.9 CHRONIC OBSTRUCTIVE PULMONARY DISEASE, U 03/17/2018 DINORA GREEN N Ot M19.91 PRIMARY OSTEOARTHRITIS, UNSPECIFIED SITE 03/17/2018 DINORA GREEN N Ot N18.4 CHRONIC KIDNEY DISEASE, STAGE 4 (SEVERE) 03/17/2018 DINORA GREEN N Ot R91.1 SOLITARY PULMONARY NODULE 03/17/2018 DINORA GREEN N Ot Z79.4 PENITENTIARY (CURRENT) USE OF INSULIN 03/17/2018 DINORA GREEN N Ot Z79.82 RATE QUOTING OPERATOR (CURRENT) USE OF ASPIRIN 03/17/2018 DINORA GREEN N Ot Z79.899 OTHER RATE QUOTING OPERATOR (CURRENT) DRUG THERAPY 03/17/2018 NORMADINORA N Ot D50.9 IRON DEFICIENCY ANEMIA, UNSPECIFIED 03/17/2018 NORMA, DINORA N Ot D63.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 03/17/2018 NORMADINORA N Ot E03.9 HYPOTHYROIDISM, UNSPECIFIED 03/17/2018 NORMADINORA N Ot 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 03/17/2018 NORMADINORA N Ot E78.2 MIXED HYPERLIPIDEMIA 03/17/2018 NORMADINORA N Ot G47.33 OBSTRUCTIVE SLEEP APNEA (ADULT) (PEDIATR 03/17/2018 NORMADINORA N Ot 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 CHRONIC KIDNEY DISEASE W ST 03/17/2018 NORMADINORA N Ot I25.10 ATHSCL HEART DISEASE OF [place] CORONARY 03/17/2018 NORMADINORA N Ot I27.20 PULMONARY HYPERTENSION, UNSPECIFIED 03/17/2018 NORMADINORA N Ot I73.9 PERIPHERAL VASCULAR DISEASE, UNSPECIFIED 03/17/2018 DINORA GREEN N Ot J44.9 CHRONIC OBSTRUCTIVE PULMONARY DISEASE, U 03/17/2018 NORMADINORA N Ot M19.91 PRIMARY OSTEOARTHRITIS, UNSPECIFIED SITE 03/17/2018 NORMADINORA N Ot N18.4 CHRONIC KIDNEY DISEASE, STAGE 4 (SEVERE) 03/17/2018 NORMADINORA N Ot R91.1 SOLITARY PULMONARY NODULE 03/17/2018 NORMAJOSIERACHELLE N Ot Z79.4 PENITENTIARY (CURRENT) USE OF INSULIN 03/17/2018 DINORA GRENE N Ot Z79.82 PENITENTIARY (CURRENT) USE OF ASPIRIN 03/17/2018 DINORA GREEN N Ot Z79.899 OTHER PENITENTIARY (CURRENT) DRUG THERAPY 03/20/2018 DIETER LOVE APRN Ot D64 .9 ANEMIA, UNSPECIFIED 03/20/2018 DIETER LOVE APRN Ot 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 03/20/2018 DIETER LOVE APRN Ot E87 .1 HYPO-OSMOLALITY AND HYPONATREMIA 03/20/2018 DIETER LOVE APRN Ot F03.90 UNSPECIFIED DEMENTIA WITHOUT BEHAVIORAL 03/20/2018 DIETER LOVE APRN Ot F32 .9 MAJOR DEPRESSIVE DISORDER, SINGLE EPISOD 03/20/2018 DIETER LOVE APRN Ot F41 .9 ANXIETY DISORDER, UNSPECIFIED 03/20/2018 DIETER LOVE APRN Ot I12 .9 HYPERTENSIVE CHRONIC KIDNEY DISEASE W ST 03/20/2018 DIETER LOVE APRN Ot I25.10 ATHSCL HEART DISEASE OF [place] CORONARY 03/20/2018 DIETER LOVE APRN Ot K21 .9 GASTRO-ESOPHAGEAL REFLUX DISEASE WITHOUT 03/20/2018 DIETER LOVE APRN Ot N18 .9 CHRONIC KIDNEY DISEASE, UNSPECIFIED 03/20/2018 DIETER LOVE APRN Ot N39 .0 URINARY TRACT INFECTION, SITE NOT SPECIF 03/20/2018 DIETER LOVE APRN Ot R25 .1 TREMOR, UNSPECIFIED 03/20/2018 DIETER LOVE APRN Ot Z79 .4 PENITENTIARY (CURRENT) USE OF INSULIN 03/20/2018 DIETER LOVE APRN Ot Z79.51 RATE QUOTING OPERATOR (CURRENT) USE OF INHALED STERO 03/20/2018 DIETER LOVE APRN Ot Z82.49 FAMILY HX OF ISCHEM HEART DIS AND OTH DI 03/20/2018 DIETER LOVE APRN Ot Z86.010 PERSONAL HISTORY OF COLONIC POLYPS 03/20/2018 DIETER LOVE APRN Ot Z87.01 PERSONAL HISTORY OF PNEUMONIA (RECURRENT 03/20/2018 DIETER LOVE APRN Ot Z87.19 PERSONAL HISTORY OF OTHER DISEASES OF TH 03/20/2018 DIETER LOVE APRN Ot Z87.440 PERSONAL HISTORY OF URINARY (TRACT) INFE 03/20/2018 DIETER LOVE APRN Ot Z88 .0 ALLERGY STATUS TO PENICILLIN 03/20/2018 DIETER LOVE APRN Ot Z88 .7 ALLERGY STATUS TO SERUM AND VACCINE STAT 03/20/2018 DIETER LOVE APRN Ot Z90.710 ACQUIRED ABSENCE OF BOTH CERVIX AND UTER 03/20/2018 DIETER LOVE APRN Ot Z90.89 ACQUIRED ABSENCE OF OTHER ORGANS 03/23/2018 DINORA GREEN Ot D50.9 IRON DEFICIENCY ANEMIA, UNSPECIFIED 03/23/2018 DINORA GREEN Ot D63.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 03/23/2018 DINORA GREEN Ot E03.9 HYPOTHYROIDISM, UNSPECIFIED 03/23/2018 DINORA GREEN Ot 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 03/23/2018 NORMA, DINORA Lance Ot E78.2 MIXED HYPERLIPIDEMIA 03/23/2018 NORMADINORA Ot G47.33 OBSTRUCTIVE SLEEP APNEA (ADULT) (PEDIATR 03/23/2018 NORMADINORA Ot 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 CHRONIC KIDNEY DISEASE W ST 03/23/2018 NORMADINORA Ot I25.10 ATHSCL HEART DISEASE OF [place] CORONARY 03/23/2018 DINORA GREEN Ot I27.20 PULMONARY HYPERTENSION, UNSPECIFIED 03/23/2018 NORMADINORA Ot I73.9 PERIPHERAL VASCULAR DISEASE, UNSPECIFIED 03/23/2018 NORMADINORA Ot J44.9 CHRONIC OBSTRUCTIVE PULMONARY DISEASE, U 03/23/2018 NORMADINORA REYES Ot M19.91 PRIMARY OSTEOARTHRITIS, UNSPECIFIED SITE 03/23/2018 NORMADINORA Ot N18.4 CHRONIC KIDNEY DISEASE, STAGE 4 (SEVERE) 03/23/2018 DINORA GREEN Ot R91.1 SOLITARY PULMONARY NODULE 03/23/2018 DINORA GREEN Ot Z79.4 PENITENTIARY (CURRENT) USE OF INSULIN 03/23/2018 DINORA GREEN Ot Z79.82 RATE QUOTING OPERATOR (CURRENT) USE OF ASPIRIN 03/23/2018 DINORA GREEN Ot Z79.899 OTHER PENITENTIARY (CURRENT) DRUG THERAPY 03/24/2018 DIETER LOVE APRN Ot D64 .9 ANEMIA, UNSPECIFIED 03/24/2018 DIETER LOVE APRN Ot 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 03/24/2018 DIETER LOVE APRN Ot E87 .1 HYPO-OSMOLALITY AND HYPONATREMIA 03/24/2018 DIETER LOVE APRN Ot F03.90 UNSPECIFIED DEMENTIA WITHOUT BEHAVIORAL 03/24/2018 DIETER LOVE APRN Ot F32 .9 MAJOR DEPRESSIVE DISORDER, SINGLE EPISOD 03/24/2018 DIETER LOVE APRN Ot F41 .9 ANXIETY DISORDER, UNSPECIFIED 03/24/2018 DIETER LOVE APRN Ot I12 .9 HYPERTENSIVE CHRONIC KIDNEY DISEASE W ST 03/24/2018 DIETER LOVE APRN Ot I25.10 ATHSCL HEART DISEASE OF [place] CORONARY 03/24/2018 DIETER LOVE APRN Ot K21 .9 GASTRO-ESOPHAGEAL REFLUX DISEASE WITHOUT 03/24/2018 DIETER LOVE APRN Ot N18 .9 CHRONIC KIDNEY DISEASE, UNSPECIFIED 03/24/2018 DIETER LOVE APRN Ot N39 .0 URINARY TRACT INFECTION, SITE NOT SPECIF 03/24/2018 DIETER LOVE APRN Ot R25 .1 TREMOR, UNSPECIFIED 03/24/2018 DIETER LOVE APRN Ot Z79 .4 PENITENTIARY (CURRENT) USE OF INSULIN 03/24/2018 DIETER LOVE APRN Ot Z79.51 RATE QUOTING OPERATOR (CURRENT) USE OF INHALED STERO 03/24/2018 DIETER LOVE APRN Ot Z82.49 FAMILY HX OF ISCHEM HEART DIS AND OTH DI 03/24/2018 DIETER LOVE APRN Ot Z86.010 PERSONAL HISTORY OF COLONIC POLYPS 03/24/2018 DIETER LOVE APRN Ot Z87.01 PERSONAL HISTORY OF PNEUMONIA (RECURRENT 03/24/2018 DIETER LOVE APRN Ot Z87.19 PERSONAL HISTORY OF OTHER DISEASES OF TH 03/24/2018 DIETER LOVE APRN Ot Z87.440 PERSONAL HISTORY OF URINARY (TRACT) INFE 03/24/2018 DIETER LOVE APRN Ot Z88 .0 ALLERGY STATUS TO PENICILLIN 03/24/2018 DIETER LOVE APRN Ot Z88 .7 ALLERGY STATUS TO SERUM AND VACCINE STAT 03/24/2018 DIETER LOVE APRN Ot Z90.710 ACQUIRED ABSENCE OF BOTH CERVIX AND UTER 03/24/2018 DIETER LOVE APRN Ot Z90.89 ACQUIRED ABSENCE OF OTHER ORGANS 03/25/2018 SUHA TAYLOR MD Ot A41. 9 SEPSIS, UNSPECIFIED ORGANISM 03/25/2018 SUHA TAYLOR MD Ot E07. 9 DISORDER OF THYROID, UNSPECIFIED 03/25/2018 SUHA TAYLOR MD Ot E11. 9 TYPE 2 DIABETES MELLITUS WITHOUT COMPLIC 03/25/2018 SUHA TAYLOR MD Ot E87. 1 HYPO-OSMOLALITY AND HYPONATREMIA 03/25/2018 SUHA TAYLOR MD Ot F03. 90 UNSPECIFIED DEMENTIA WITHOUT BEHAVIORAL 03/25/2018 SUHA TAYLOR MD Ot F32. 9 MAJOR DEPRESSIVE DISORDER, SINGLE EPISOD 03/25/2018 SUHA TAYLOR MD, Ot F41. 9 ANXIETY DISORDER, UNSPECIFIED 03/25/2018 SUHA TAYLOR MD, Ot G47. 30 SLEEP APNEA, UNSPECIFIED 03/25/2018 SUHA TAYLOR MD, Ot I12. 9 HYPERTENSIVE CHRONIC KIDNEY DISEASE W ST 03/25/2018 SUHA TAYLOR MD, Ot I25. 10 ATHSCL HEART DISEASE OF [place] CORONARY 03/25/2018 SUHA TALYOR MD, Ot J44. 9 CHRONIC OBSTRUCTIVE PULMONARY DISEASE, U 03/25/2018 SUHA TAYLOR MD, Ot J45.909 UNSPECIFIED ASTHMA, UNCOMPLICATED 03/25/2018 SUHA TAYLOR MD, Ot K21. 9 GASTRO-ESOPHAGEAL REFLUX DISEASE WITHOUT 03/25/2018 SUHA TAYLOR MD, Ot K44. 9 DIAPHRAGMATIC HERNIA WITHOUT OBSTRUCTION 03/25/2018 SUHA TAYLOR MD, Ot M19. 91 PRIMARY OSTEOARTHRITIS, UNSPECIFIED SITE 03/25/2018 SUHA TAYLOR MD, Ot N18. 4 CHRONIC KIDNEY DISEASE, STAGE 4 (SEVERE) 03/25/2018 SUHA TAYLOR MD, Ot R41. 0 DISORIENTATION, UNSPECIFIED 03/25/2018 SUHA TAYLOR MD Ot Z79. 4 RATE QUOTING OPERATOR (CURRENT) USE OF INSULIN 03/25/2018 SUHA TAYLOR MD Ot Z87. 01 PERSONAL HISTORY OF PNEUMONIA (RECURRENT 03/25/2018 SUHA TAYLOR MD Ot Z87.440 PERSONAL HISTORY OF URINARY (TRACT) INFE 03/25/2018 SUHA TAYLOR MD, Ot A41. 9 SEPSIS, UNSPECIFIED ORGANISM 03/25/2018 SUHA TAYLRO MD, Ot E07. 9 DISORDER OF THYROID, UNSPECIFIED 03/25/2018 SUHA TAYLOR MD, Ot E11. 9 TYPE 2 DIABETES MELLITUS WITHOUT COMPLIC 03/25/2018 SUHA TAYLOR MD, Ot E87. 1 HYPO-OSMOLALITY AND HYPONATREMIA 03/25/2018 SUHA TAYLOR MD Ot F03. 90 UNSPECIFIED DEMENTIA WITHOUT BEHAVIORAL 03/25/2018 SUHA TAYLOR MD, Ot F32. 9 MAJOR DEPRESSIVE DISORDER, SINGLE EPISOD 03/25/2018 SUHA TAYLOR MD, Ot F41. 9 ANXIETY DISORDER, UNSPECIFIED 03/25/2018 CLAUDIA MD, SUHA M Ot G47. 30 SLEEP APNEA, UNSPECIFIED 03/25/2018 SUHA TAYLOR MD Ot I12. 9 HYPERTENSIVE CHRONIC KIDNEY DISEASE W ST 03/25/2018 SUHA TAYLOR MD Ot I25. 10 ATHSCL HEART DISEASE OF [place] CORONARY 03/25/2018 SUHA TAYLOR MD, Ot J44. 9 CHRONIC OBSTRUCTIVE PULMONARY DISEASE, U 03/25/2018 SUHA TAYLOR MD, Ot J45.909 UNSPECIFIED ASTHMA, UNCOMPLICATED 03/25/2018 SUHA TAYLOR MD, Ot K21. 9 GASTRO-ESOPHAGEAL REFLUX DISEASE WITHOUT 03/25/2018 SUHA TAYLOR MD, Ot K44. 9 DIAPHRAGMATIC HERNIA WITHOUT OBSTRUCTION 03/25/2018 SUHA TAYLOR MD Ot M19. 91 PRIMARY OSTEOARTHRITIS, UNSPECIFIED SITE 03/25/2018 SUHA TAYLOR MD, Ot N18. 4 CHRONIC KIDNEY DISEASE, STAGE 4 (SEVERE) 03/25/2018 SUHA TAYLOR MD Ot R41. 0 DISORIENTATION, UNSPECIFIED 03/25/2018 SUHA TAYLOR MD Ot Z79. 4 PENITENTIARY (CURRENT) USE OF INSULIN 03/25/2018 SUHA TAYLOR MD Ot Z87. 01 PERSONAL HISTORY OF PNEUMONIA (RECURRENT 03/25/2018 SUHA ATYLOR MD Ot Z87.440 PERSONAL HISTORY OF URINARY (TRACT) INFE 03/26/2018 DIETER LOVE APRN Ot D64 .9 ANEMIA, UNSPECIFIED 03/26/2018 DIETER LOVE APRN Ot 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 03/26/2018 DIETER LOVE APRN Ot E87 .1 HYPO-OSMOLALITY AND HYPONATREMIA 03/26/2018 DIETER LOVE APRN Ot F03.90 UNSPECIFIED DEMENTIA WITHOUT BEHAVIORAL 03/26/2018 DIETER LOVE APRN Ot F32 .9 MAJOR DEPRESSIVE DISORDER, SINGLE EPISOD 03/26/2018 DIETER LOVE APRN Ot F41 .9 ANXIETY DISORDER, UNSPECIFIED 03/26/2018 DIETER LOVE APRN Ot I12 .9 HYPERTENSIVE CHRONIC KIDNEY DISEASE W ST 03/26/2018 DIETER LOVE APRN Ot I25.10 ATHSCL HEART DISEASE OF [place] CORONARY 03/26/2018 DIETER LOEV APRN Ot K21 .9 GASTRO-ESOPHAGEAL REFLUX DISEASE WITHOUT 03/26/2018 DIETER LOVE APRN Ot N18 .9 CHRONIC KIDNEY DISEASE, UNSPECIFIED 03/26/2018 DIETER LOVE APRN Ot N39 .0 URINARY TRACT INFECTION, SITE NOT SPECIF 03/26/2018 DIETER LOVE APRN Ot R25 .1 TREMOR, UNSPECIFIED 03/26/2018 DIETER LOVE APRN Ot Z79 .4 RATE QUOTING OPERATOR (CURRENT) USE OF INSULIN 03/26/2018 DIETER LOVE APRN Ot Z79.51 PENITENTIARY (CURRENT) USE OF INHALED STERO 03/26/2018 DIETER LOVE APRN Ot Z82.49 FAMILY HX OF ISCHEM HEART DIS AND OTH DI 03/26/2018 DIETER LOVE APRN Ot Z86.010 PERSONAL HISTORY OF COLONIC POLYPS 03/26/2018 DIETER LOVE APRN Ot Z87.01 PERSONAL HISTORY OF PNEUMONIA (RECURRENT 03/26/2018 DIETER LOVE APRN Ot Z87.19 PERSONAL HISTORY OF OTHER DISEASES OF TH 03/26/2018 DIETER LOVE APRN Ot Z87.440 PERSONAL HISTORY OF URINARY (TRACT) INFE 03/26/2018 DIETER LOVE APRN Ot Z88 .0 ALLERGY STATUS TO PENICILLIN 03/26/2018 DIETER LOVE APRN Ot Z88 .7 ALLERGY STATUS TO SERUM AND VACCINE STAT 03/26/2018 DIETER LOVE APRN Ot Z90.710 ACQUIRED ABSENCE OF BOTH CERVIX AND UTER 03/26/2018 DIETER LOVE APRN Ot Z90.89 ACQUIRED ABSENCE OF OTHER ORGANS 03/26/2018 SUHA TAYLOR MD Ot D64. 9 ANEMIA, UNSPECIFIED 03/26/2018 SUHA TAYLOR MD, Ot E07. 9 DISORDER OF THYROID, UNSPECIFIED 03/26/2018 SUHA TAYLOR MD Ot 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 03/26/2018 SUHA TAYLOR MD, Ot E11.621 TYPE 2 DIABETES MELLITUS WITH FOOT ULCER 03/26/2018 SUHA TAYLOR MD, Ot E11.649 TYPE 2 DIABETES MELLITUS WITH HYPOGLYCEM 03/26/2018 SUHA TAYLOR MD Ot E66. 9 OBESITY, UNSPECIFIED 03/26/2018 SUHA TAYLOR MD, Ot E78. 5 HYPERLIPIDEMIA, UNSPECIFIED 03/26/2018 SUHA TAYLOR MD, Ot E83. 52 HYPERCALCEMIA 03/26/2018 SUHA TAYLOR MD, Ot E87. 1 HYPO-OSMOLALITY AND HYPONATREMIA 03/26/2018 SUHA TAYLOR MD, Ot F03. 90 UNSPECIFIED DEMENTIA WITHOUT BEHAVIORAL 03/26/2018 SUHA TAYLOR MD, Ot F32. 9 MAJOR DEPRESSIVE DISORDER, SINGLE EPISOD 03/26/2018 SUHA TAYLOR MD, Ot F41. 9 ANXIETY DISORDER, UNSPECIFIED 03/26/2018 SUHA TAYLOR MD, Ot G47. 33 OBSTRUCTIVE SLEEP APNEA (ADULT) (PEDIATR 03/26/2018 SUHA TAYLOR MD, Ot I12. 9 HYPERTENSIVE CHRONIC KIDNEY DISEASE W ST 03/26/2018 SUHA TAYLOR MD, Ot I25. 10 ATHSCL HEART DISEASE OF [place] CORONARY 03/26/2018 SUHA TAYLOR MD, Ot J20. 9 ACUTE BRONCHITIS, UNSPECIFIED 03/26/2018 SUHA TAYLOR MD, Ot J44. 0 CHRONIC OBSTRUCTIVE PULMON DISEASE W ACU 03/26/2018 SUHA TAYLOR MD, Ot K21. 9 GASTRO-ESOPHAGEAL REFLUX DISEASE WITHOUT 03/26/2018 SUHA TAYLOR MD, Ot K44. 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 91 PRIMARY OSTEOARTHRITIS, UNSPECIFIED SITE 03/26/2018 SUHA TAYLOR MD, Ot N18. 4 CHRONIC KIDNEY DISEASE, STAGE 4 (SEVERE) 03/26/2018 SUHA TAYLOR MD, Ot R41. 0 DISORIENTATION, UNSPECIFIED 03/26/2018 SUHA TAYLOR MD, Ot R74. 8 ABNORMAL LEVELS OF OTHER SERUM ENZYMES 03/26/2018 SUHA TAYLOR MD Ot R91. 1 SOLITARY PULMONARY NODULE 03/26/2018 SUHA TAYLOR MD, Ot Z68. 31 BODY MASS INDEX (BMI) 31.0-31.9, ADULT 03/26/2018 SUHA TAYLOR MD, Ot Z79. 4 RATE QUOTING OPERATOR (CURRENT) USE OF INSULIN 03/26/2018 CLAUDIA TY, SUHA Benitez Ot Z87. 01 PERSONAL HISTORY OF PNEUMONIA (RECURRENT 03/26/2018 CLAUDIA TY, SUHA Benitez Ot Z87.440 PERSONAL HISTORY OF URINARY (TRACT) INFE 03/26/2018 SUHA TAYLOR MD, Ot Z95. 5 PRESENCE OF CORONARY ANGIOPLASTY IMPLANT 04/06/2018 TAPAN DUVALL MD, Ot E11.621 TYPE 2 DIABETES MELLITUS WITH FOOT ULCER 04/06/2018 TAPAN DUVALL MD, Ot 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 04/06/2018 TAPAN DUVALL MD, Ot L97.426 NON-PRS CHR ULC OF L HEEL/MIDFT W BNE IN 04/06/2018 TAPAN DUVALL MD, Ot 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, LEFT ANKLE AND FOOT 04/06/2018 TAPAN DUVALL MD, Ot E11.621 TYPE 2 DIABETES MELLITUS WITH FOOT ULCER 04/06/2018 TAPAN DUVALL MD, Ot 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 04/06/2018 TAPAN DUVALL MD, Ot L97.426 NON-PRS CHR ULC OF L HEEL/MIDFT W BNE IN 04/06/2018 TAPAN DUVALL MD Ot 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, LEFT ANKLE AND FOOT 04/09/2018 TAPAN DUVALL MD, Ot E11.621 TYPE 2 DIABETES MELLITUS WITH FOOT ULCER 04/09/2018 TAPAN DUVALL MD, Ot 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 04/09/2018 TAPAN DUVALL MD, Ot L97.426 NON-PRS CHR ULC OF L HEEL/MIDFT W BNE IN 04/09/2018 TAPAN DUVALL MD, Ot 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, LEFT ANKLE AND FOOT 04/10/2018 Ot 721.3 LUMB OSACRAL SPONDYLOSIS 04/10/2018 Ot 738.4 ACQ SPONDYLOLISTHESIS 04/14/2018 TAPAN DUVALL MD, Ot E11.621 TYPE 2 DIABETES MELLITUS WITH FOOT ULCER 04/14/2018 TAPAN DUVALL MD Ot 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 04/14/2018 TAPAN DUVALL MD, Ot 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, UNSTAGEABLE 04/14/2018 TAPAN DUVALL MD Ot 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 04/14/2018 TAPAN DUVALL MD, Ot L97.426 NON-PRS CHR ULC OF L HEEL/MIDFT W BNE IN 04/14/2018 TAPAN DUVALL MD, Ot 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, LEFT ANKLE AND FOOT 04/21/2018 TAPAN DUVALL MD Ot E11.621 TYPE 2 DIABETES MELLITUS WITH FOOT ULCER 04/21/2018 TAPAN DUVALL MD, Ot E11.622 TYPE 2 DIABETES MELLITUS WITH OTHER SKIN 04/21/2018 TAPAN DUVALL MD Ot 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 04/21/2018 TAPAN DUVALL MD, Ot 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, UNSTAGEABLE 04/21/2018 TAPAN DUVALL MD Ot L97.222 NON-PRESSURE CHRONIC ULCER OF LEFT CALF 04/21/2018 TAPAN DUVALL MD Ot 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 04/21/2018 TAPAN DUVALL MD, Ot 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, LEFT ANKLE AND FOOT 04/21/2018 TAPAN DUVALL MD Ot E11.621 TYPE 2 DIABETES MELLITUS WITH FOOT ULCER 04/21/2018 TAPAN DUVALL MD, Ot E11.622 TYPE 2 DIABETES MELLITUS WITH OTHER SKIN 04/21/2018 TAPAN DUVALL MD Ot 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 2 MIXED HYPERLIPIDEMIA 04/23/2018 JULIETTE GOMEZ MD Ot I10 ESSENTIAL (PRIMARY) HYPERTENSION 04/23/2018 JULIETTE GOMEZ MD, Ot I25. 10 ATHSCL HEART DISEASE OF [place] CORONARY 04/23/2018 JULIETTE GOMEZ MD, Ot I65. 29 OCCLUSION AND STENOSIS OF UNSPECIFIED CA 04/23/2018 JULIETTE GOMEZ MD, Ot J44. 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 8 ANEMIA IN OTHER CHRONIC DISEASES CLASSIF 04/26/2018 JULIETTE GOMEZ MD Ot E11. 51 TYPE 2 DIABETES W DIABETIC PERIPHERAL AN 04/26/2018 JULIETTE GOMEZ MD Ot E78. 2 MIXED HYPERLIPIDEMIA 04/26/2018 JULIETTE GOMEZ MD Ot F03. 90 UNSPECIFIED DEMENTIA WITHOUT BEHAVIORAL 04/26/2018 JULIETTE GOMEZ MD Ot F32. 9 MAJOR DEPRESSIVE DISORDER, SINGLE EPISOD 04/26/2018 JULIETTE GOMEZ MD Ot F41. 9 ANXIETY DISORDER, UNSPECIFIED 04/26/2018 JULIETTE GOMEZ MD, Ot G47. 33 OBSTRUCTIVE SLEEP APNEA (ADULT) (PEDIATR 04/26/2018 JULIETTE GOMEZ MD, Ot I12. 9 HYPERTENSIVE CHRONIC KIDNEY DISEASE W ST 04/26/2018 JULIETTE GOMEZ MD, Ot I25. 10 ATHSCL HEART DISEASE OF [place] CORONARY 04/26/2018 JULIETTE GOMEZ MD, Ot I65. 23 OCCLUSION AND STENOSIS OF BILATERAL SEPULVEDA 04/26/2018 JULIETTE GOMEZ MD Ot I70.202 UNSP ATHSCL [place] ARTERIES OF EXTREMITI 04/26/2018 JULIETTE GOMEZ MD, Ot I87. 2 VENOUS INSUFFICIENCY (CHRONIC) (PERIPHER 04/26/2018 JULIETTE GOMEZ MD, Ot J44. 9 CHRONIC OBSTRUCTIVE PULMONARY DISEASE, U 04/26/2018 JULIETTE GOMEZ MD, Ot K21. 9 GASTRO-ESOPHAGEAL REFLUX DISEASE WITHOUT 04/26/2018 JULIETTE GOMEZ MD, Ot L97.229 NON-PRESSURE CHRONIC ULCER OF LEFT CALF 04/26/2018 JULIETTE GOMEZ MD, Ot L97.429 NON-PRS CHRONIC ULCER OF LEFT HEEL AND M 04/26/2018 JULIETTE GOMEZ MD, Ot L97.529 NON-PRESSURE CHRONIC ULCER OTH PRT LEFT 04/26/2018 JULIETTE GOMEZ MD, Ot N18. 3 CHRONIC KIDNEY DISEASE, STAGE 3 (MODERAT 04/26/2018 JULIETTE GOMEZ MD Ot R00. 2 PALPITATIONS 04/26/2018 JULIETTE GOMEZ MD Ot R91. 1 SOLITARY PULMONARY NODULE 04/26/2018 JULIETTE GOMEZ MD, Ot Z79. 4 RATE QUOTING OPERATOR (CURRENT) USE OF INSULIN 04/26/2018 JULIETTE GOMEZ MD Ot Z95. 5 PRESENCE OF CORONARY ANGIOPLASTY IMPLANT 04/27/2018 JULIETTE GOMEZ MD, Ot E78. 2 MIXED HYPERLIPIDEMIA 04/27/2018 JULIETTE GOMEZ MD Ot I10 ESSENTIAL (PRIMARY) HYPERTENSION 04/27/2018 JULIETTE GOMEZ MD, Ot I25. 10 ATHSCL HEART DISEASE OF [place] CORONARY 04/27/2018 JULIETTE GOMEZ MD, Ot I65. 29 OCCLUSION AND STENOSIS OF UNSPECIFIED CA 04/27/2018 JULIETTE GOMEZ MD, Ot J44. 9 CHRONIC OBSTRUCTIVE PULMONARY DISEASE, U 04/28/2018 NORMA, BOBAN N Ot D50.9 IRON DEFICIENCY ANEMIA, UNSPECIFIED 04/28/2018 DINORA GREEN N Ot D63.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 04/28/2018 NORMADINORA Ot E03.9 HYPOTHYROIDISM, UNSPECIFIED 04/28/2018 DINORA GREEN N Ot 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 04/28/2018 NORMA, JOSIERACHELLE N Ot E78.2 MIXED HYPERLIPIDEMIA 04/28/2018 NORMADINORA N Ot G47.33 OBSTRUCTIVE SLEEP APNEA (ADULT) (PEDIATR 04/28/2018 NORMAJOSIERACHELLE N Ot 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 CHRONIC KIDNEY DISEASE W ST 04/28/2018 NORMAJOSIE REYESRACHELLE N Ot I25.10 ATHSCL HEART DISEASE OF [place] CORONARY 04/28/2018 NORMADINORA Ot I27.20 PULMONARY HYPERTENSION, UNSPECIFIED 04/28/2018 NORMA DINORA N Ot I73.9 PERIPHERAL VASCULAR DISEASE, UNSPECIFIED 04/28/2018 NORMADINORA Ot J44.9 CHRONIC OBSTRUCTIVE PULMONARY DISEASE, U 04/28/2018 NORMA DINORA N Ot M19.91 PRIMARY OSTEOARTHRITIS, UNSPECIFIED SITE 04/28/2018 NORMA DINORA N Ot N18.4 CHRONIC KIDNEY DISEASE, STAGE 4 (SEVERE) 04/28/2018 NORMA DINORA Casi Ot R91.1 SOLITARY PULMONARY NODULE 04/28/2018 NORMA DINORA N Ot Z79.4 PENITENTIARY (CURRENT) USE OF INSULIN 04/28/2018 DINORA GREEN N Ot Z79.82 RATE QUOTING OPERATOR (CURRENT) USE OF ASPIRIN 04/28/2018 DINORA GREEN Ot Z79.899 OTHER PENITENTIARY (CURRENT) DRUG THERAPY 04/28/2018 ANGEL FLOWERS Ot 793.80 UNSPEC ABNORMAL MAMMOGRAM 04/28/2018 ANGEL FLOWERS Ot V67.9 FOLLOW-UP EXAM NOS 04/28/2018 Ot 272.4 HYPE RLIPIDEMIA NEC/NOS 04/28/2018 Ot 401.9 HYPE RTENSION NOS 04/28/2018 ANGEL LFOWERS Ot 280.9 IRON DEFIC ANEMIA NOS 04/28/2018 ANGEL FLOWERS Ot 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 04/28/2018 FLOWERS, HILAH S BANQUET SUPERVISOR Ot 414.00 CORON ATHEROSCLER NOS TYPE VESSEL, NATIV 04/28/2018 ANGEL FLOWERS BANQUET SUPERVISOR Ot 585.3 CHRONIC KIDNEY DISEASE, STAGE III (MODER 04/28/2018 ANGEL FLOWERS BANQUET SUPERVISOR Ot 599.0 URIN TRACT INFECTION NOS 04/28/2018 ANGEL FLOWERS BANQUET SUPERVISOR Ot V58.69 OTH MED,LT,CURRENT USE 04/28/2018 ANGEL FLOWERS BANQUET SUPERVISOR Ot 280.0 CHR BLOOD LOSS ANEMIA 04/28/2018 ANGEL FLOWERS BANQUET SUPERVISOR Ot 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 04/28/2018 FLOWERSANGEL Garza BANQUET SUPERVISOR Ot 414.00 CORON ATHEROSCLER NOS TYPE VESSEL, NATIV 04/28/2018 ANGEL FLOWERS BANQUET SUPERVISOR Ot 585.3 CHRONIC KIDNEY DISEASE, STAGE III (MODER 04/28/2018 ANGEL FLOWERS BANQUET SUPERVISOR Ot V58.69 OTH MED,LT,CURRENT USE 04/28/2018 DINORA GREEN Casi Ot 793.89 OTH (ABN) FINDINGS ON RADIOLOGICAL EXAMI 04/28/2018 JANA PALACIOS Ot 250.00 DIAB ЮЛИЯ WO COMPL, TYPE II OR UNSPEC TY 04/28/2018 JANA PALACIOS Ot 272.4 HYPERLIPIDEMIA NEC/NOS 04/28/2018 JANA PALACIOS Ot 401.9 HYPERTENSION NOS 04/28/2018 JANA PALACIOS Ot 414.00 CORON ATHEROSCLER NOS TYPE VESSEL, NATIV 04/28/2018 JANA PALACIOS Ot 496 CHR AIRWAY OBSTRUCT NEC 04/28/2018 JANA PALACIOS Ot 780.4 DIZZINESS AND GIDDINESS 04/28/2018 JANA PALACIOS Ot 785.1 PALPITATIONS 04/28/2018 EZ TY, TAPAN P Ot 473 .9 CHRONIC SINUSITIS NOS 04/28/2018 SAURABH TY, PAIGE Benitez Ot 786.07 WHEEZING 04/28/2018 PAIGE WILEY MD Ot 786.2 COUGH 04/28/2018 PATRICIA TY, JULIETTE Infante Ot 272. 4 HYPERLIPIDEMIA NEC/NOS 04/28/2018 JULIETTE GOMEZ MD Ot 414. 01 CORONARY ATHEROSCLEROSIS OF [place] CORON 04/28/2018 ANGEL FLOWERS BANQUET SUPERVISOR Ot 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 04/28/2018 ANGEL FLOWERS BANQUET SUPERVISOR Ot 585.3 CHRONIC KIDNEY DISEASE, STAGE III (MODER 04/28/2018 KRISTIE MIGUELJENS Kayla BANQUET SUPERVISOR Ot V58.69 OTH MED,LT,CURRENT USE 04/28/2018 MIGUEL FLOWERSJENS Kayla BANQUET SUPERVISOR Ot 429.3 CARDIOMEGALY 04/28/2018 ANGEL FLOWERS BANQUET SUPERVISOR Ot 786.09 RESPIRATORY ABNORM NEC 04/28/2018 MIGUEL FLOWERSJENS S BANQUET SUPERVISOR Ot 786.2 COUGH 04/28/2018 MIGUEL FLOWERSJENS S BANQUET SUPERVISOR Ot 280.9 IRON DEFIC ANEMIA NOS 04/28/2018 ANGEL FLOWERS BANQUET SUPERVISOR Ot 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 04/28/2018 ANGEL FLOWERS BANQUET SUPERVISOR Ot 585.3 CHRONIC KIDNEY DISEASE, STAGE III (MODER 04/28/2018 ANGEL FLOWERS BANQUET SUPERVISOR Ot V58.69 OTH MED,LT,CURRENT USE 04/28/2018 DELILAH FRIAS MD Ot 250.92 DIAB W UNSPEC COMPL, TYPE II OR UNSPEC T 04/28/2018 DELILAH FRIAS MD Ot 272.4 HYPERLIPIDEMIA NEC/NOS 04/28/2018 DELILAH FRIAS MD Ot 355.9 MONONEURITIS NOS 04/28/2018 MIGUEL FLOWERSJENS Kayla BANQUET SUPERVISOR Ot 280.9 IRON DEFIC ANEMIA NOS 04/28/2018 MIGUEL FLOWERSJENS S BANQUET SUPERVISOR Ot 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 04/28/2018 ANGEL FLOWERS BANQUET SUPERVISOR Ot 585.3 CHRONIC KIDNEY DISEASE, STAGE III (MODER 04/28/2018 ANGEL FLOWERS BANQUET SUPERVISOR Ot V58.69 OTH MED,LT,CURRENT USE 04/28/2018 ANGEL FLOWERS BANQUET SUPERVISOR Ot 280.9 IRON DEFIC ANEMIA NOS 04/28/2018 ANGEL FLOWERS S BANQUET SUPERVISOR Ot 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 04/28/2018 ANGEL FLOWERS S BANQUET SUPERVISOR Ot 585.3 CHRONIC KIDNEY DISEASE, STAGE III (MODER 04/28/2018 ANGEL FLOWERS BANQUET SUPERVISOR Ot V58.69 OTH MED,LT,CURRENT USE 04/28/2018 LEXIE GONZALES BANQUET SUPERVISOR Ot 496 CHR AIRWAY OBSTRUCT NEC 04/28/2018 GONZALES LEXIE Benitez BANQUET SUPERVISOR Ot 786.39 OTHER HEMOPTYSIS 04/28/2018 GONZALES, LEXIE Benitez BANQUET SUPERVISOR Ot 786.2 COUGH 04/28/2018 GONZALES, LEXIE Benitez BANQUET SUPERVISOR Ot 786.30 HEMOPTYSIS, UNSPECIFIED 04/28/2018 GONZALES, LEXIE Benitez BANQUET SUPERVISOR Ot 793.11 SOLITARY PULMONARY NODULE 04/28/2018 CHRISTIAN LEXIE Benitez BANQUET SUPERVISOR Ot 786.39 OTHER HEMOPTYSIS 04/28/2018 PATRICIA TY, JULIETTE J Ot 272. 4 HYPERLIPIDEMIA NEC/NOS 04/28/2018 PATRICIA TY, JULIETTE J Ot 401. 9 HYPERTENSION NOS 04/28/2018 PATRICIA TY, JULIETTE J Ot 414. 00 CORON ATHEROSCLER NOS TYPE VESSEL, NATIV 04/28/2018 JULIETTE GOMEZ MD J Ot 272. 4 HYPERLIPIDEMIA NEC/NOS 04/28/2018 JULIETTE GOMEZ MD J Ot 401. 9 HYPERTENSION NOS 04/28/2018 PATRICIA TY, MATTHAR J Ot 414. 00 CORON ATHEROSCLER NOS TYPE VESSEL, NATIV 04/28/2018 Ot 496 CHR AI RWAY OBSTRUCT NEC 04/28/2018 Ot 786.05 GREG RTNESS OF BREATH 04/28/2018 Ot 786.2 COUGH 04/28/2018 AR ALLEN DO Ot 496 CHR AIRWAY OBSTRUCT NEC 04/28/2018 AR ALLEN DO Ot 786. 05 SHORTNESS OF BREATH 04/28/2018 AR ALLEN DO Ot 786. 2 COUGH 04/28/2018 ANGEL FLOWERS BANQUET SUPERVISOR Ot 280.9 IRON DEFIC ANEMIA NOS 04/28/2018 ANGEL FLOWERS S BANQUET SUPERVISOR Ot 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 04/28/2018 ANGEL FLOWERS BANQUET SUPERVISOR Ot 585.3 CHRONIC KIDNEY DISEASE, STAGE III (MODER 04/28/2018 ANGEL FLOWERS BANQUET SUPERVISOR Ot 780.60 FEVER, UNSPECIFIED 04/28/2018 ANGEL FLOWERS BANQUET SUPERVISOR Ot 787.01 NAUSEA WITH VOMITING 04/28/2018 ANGEL FLOWERS BANQUET SUPERVISOR Ot 787.91 DIARRHEA 04/28/2018 ANGEL FLOWERS BANQUET SUPERVISOR Ot V58.69 OT MED,LT,CURRENT USE 04/28/2018 GALA TY, FELICITA Borges Ot V76.1 2 OTH SCREEN MAMMO-MALIGN NEOPLASM OF [place] 04/28/2018 MIRTA TORRES APRN Ot 786.2 COUGH 04/28/2018 Ot 280.9 IRON DEFIC ANEMIA NOS 04/28/2018 Ot 285.21 ANE ASPEN IN CHRONIC KIDNEY DISEASE 04/28/2018 Ot 585.4 SERVICE OBSERVER CHIEF LORI KIDNEY DISEASE, STAGE IV (SEVERE 04/28/2018 Ot 599.0 URIN TRACT INFECTION NOS 04/28/2018 Ot 787.91 SEEMA RRHEA 04/28/2018 Ot 793.11 PRIETO ITARY PULMONARY NODULE 04/28/2018 Ot V58.69 OTH MED,LT,CURRENT USE 04/28/2018 Ot 496 CHR AI RWAY OBSTRUCT NEC 04/28/2018 Ot 786.05 GREG RTNESS OF BREATH 04/28/2018 Ot 786.2 COUGH 04/28/2018 AR ALLEN DO Ot 255. 9 ADRENAL DISORDER N0S 04/28/2018 AR ALLEN DO Ot 486 PNEUMONIA, ORGANISM NOS 04/28/2018 AR ALLEN DO Ot 496 CHR AIRWAY OBSTRUCT NEC 04/28/2018 AR ALLEN DO Ot 562. 10 DIVERTICULOSIS COLON (W/O MENT OF HEMORR 04/28/2018 AR ALLEN DO Ot 786. 05 SHORTNESS OF BREATH 04/28/2018 AR ALLEN DO Ot 786. 2 COUGH 04/28/2018 AR ALLEN DO Ot 793. 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, NATIV 04/28/2018 Ot 433.10 CAR OTID ARTERY OCCLUSION W O CEREBRAL IN 04/28/2018 Ot 496 CHR AI RWAY OBSTRUCT NEC 04/28/2018 Ot 244.9 HYPO THYROIDISM NOS 04/28/2018 ANGEL FLOWERSP Ot 280.9 IRON DEFIC ANEMIA NOS 04/28/2018 ANGEL FLOWERSP Ot 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 04/28/2018 ANGEL FLOWERS Ot 585.4 CHRONIC KIDNEY DISEASE, STAGE IV (SEVERE 04/28/2018 ANGEL FLOWERS Ot 793.11 SOLITARY PULMONARY NODULE 04/28/2018 ANGEL FLOWERS BANQUET SUPERVISOR Ot V58.69 OTH MED,LT,CURRENT USE 04/28/2018 FLOWERSANGEL Garza S BANQUET SUPERVISOR Ot 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 04/28/2018 ANGEL FLOWERS S BANQUET SUPERVISOR Ot 585.4 CHRONIC KIDNEY DISEASE, STAGE IV (SEVERE 04/28/2018 FLOWERSANGEL Garza S BANQUET SUPERVISOR Ot V58.69 OTH MED,LT,CURRENT USE 04/28/2018 FLOWERSANGEL Garza S BANQUET SUPERVISOR Ot 4 86 PNEUMONIA, ORGANISM NOS 04/28/2018 FLOWERSANGEL S BANQUET SUPERVISOR Ot 4 96 CHR AIRWAY OBSTRUCT NEC 04/28/2018 FLOWERSANGEL Garza S BANQUET SUPERVISOR Ot 784.0 HEADACHE 04/28/2018 ANEGL FLOWERS S BANQUET SUPERVISOR Ot 786.05 SHORTNESS OF BREATH 04/28/2018 FLOWERSANGEL Garza S BANQUET SUPERVISOR Ot 786.2 COUGH 04/28/2018 KLARISSA MOSER CASTING MACHINE SET UP OPERATOR Ot G47.33 OBSTRUCTIVE SLEEP APNEA (ADULT) (PEDIATR 04/28/2018 KLARISSA MOSER CASTING MACHINE SET UP OPERATOR Ot I27.2 OTHER SECONDARY PULMONARY HYPERTENSION 04/28/2018 KLARISSA MOSER CASTING MACHINE SET UP OPERATOR Ot J44.9 CHRONIC OBSTRUCTIVE PULMONARY DISEASE, U 04/28/2018 KLARISSA MOSER APRN Ot R06.02 SHORTNESS OF BREATH 04/28/2018 KLARISSA MOSER CASTING MACHINE SET UP OPERATOR Ot R91.1 SOLITARY PULMONARY NODULE 04/28/2018 AR ALLEN DO Ot 486 PNEUMONIA, ORGANISM NOS 04/28/2018 AR ALLEN DO Ot 496 CHR AIRWAY OBSTRUCT NEC 04/28/2018 AR ALLEN DO Ot 786. 05 SHORTNESS OF BREATH 04/28/2018 AR ALLEN DO Ot 786. 2 COUGH 04/28/2018 FELICITA CEDEÑO MD Ot 298.9 PSYCHOSIS NOS 04/28/2018 FELICITA CEDEÑO MD Ot 959.0 1 HEAD INJURY, NOS 04/28/2018 FELICITA CEDEÑO MD Ot E000. 8 OTHER EXTERNAL CAUSE STATUS 04/28/2018 FELICITA CEDEÑO MD Ot E888. 9 FALL NOS 04/28/2018 KRISTIE ANGEL S BANQUET SUPERVISOR Ot 280.0 CHR BLOOD LOSS ANEMIA 04/28/2018 KRISTIE ANGEL S BANQUET SUPERVISOR Ot 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 04/28/2018 ANGEL FLOWERS BANQUET SUPERVISOR Ot 585.3 CHRONIC KIDNEY DISEASE, STAGE III (MODER 04/28/2018 ANGEL FLOWERS BANQUET SUPERVISOR Ot 599.0 URIN TRACT INFECTION NOS 04/28/2018 ANGEL FLOWERS BANQUET SUPERVISOR Ot 793.11 SOLITARY PULMONARY NODULE 04/28/2018 ANGEL FLOWERS BANQUET SUPERVISOR Ot V58.69 OTH MED,LT,CURRENT USE 04/28/2018 MIRTA TORRES APRN Ot 599.0 URIN TRACT INFECTION NOS 04/28/2018 JULIETTE GOMEZ MD Ot 272. 4 HYPERLIPIDEMIA NEC/NOS 04/28/2018 JULIETTE GOMEZ MD Ot 401. 9 HYPERTENSION NOS 04/28/2018 JULIETTE GOMEZ MD Ot 414. 9 CHR ISCHEMIC HRT DIS NOS 04/28/2018 JULIETTE GOMEZ MD Ot 433. 10 CAROTID ARTERY OCCLUSION W O CEREBRAL IN 04/28/2018 FELICITA CEDEÑO MD Ot E11.9 TYPE 2 DIABETES MELLITUS WITHOUT COMPLIC 04/28/2018 FELICITA CEDEÑO MD Ot Z00.0 0 ENCNTR FOR GENERAL ADULT MEDICAL EXAM W/ 04/28/2018 ANGEL FLOWERS BANQUET SUPERVISOR Ot D50.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 04/28/2018 ANGEL FLOWERS BANQUET SUPERVISOR Ot D63.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 04/28/2018 ANGEL FLOWERS BANQUET SUPERVISOR Ot N18.3 CHRONIC KIDNEY DISEASE, STAGE 3 (MODERAT 04/28/2018 ANGEL FLOWERS BANQUET SUPERVISOR Ot Z79.899 OTHER RATE QUOTING OPERATOR (CURRENT) DRUG THERAPY 04/28/2018 AR ALLEN DO Ot J44. 9 CHRONIC OBSTRUCTIVE PULMONARY DISEASE, U 04/28/2018 AR ALLEN DO Ot R05 COUGH 04/28/2018 AR ALLEN DO Ot R91. 1 SOLITARY PULMONARY NODULE 04/28/2018 FELICITA CEDEÑO MD Ot Z12.3 1 ENCNTR SCREEN MAMMOGRAM FOR MALIGNANT NE 04/28/2018 DELILAH FRIAS MD Ot E03.9 HYPOTHYROIDISM, UNSPECIFIED 04/28/2018 DELILAH FRIAS MD Ot E11.8 TYPE 2 DIABETES MELLITUS WITH UNSPECIFIE 04/28/2018 FLOWERS, HILAH S BANQUET SUPERVISOR Ot D50.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 04/28/2018 KRISTIEANGEL BANQUET SUPERVISOR Ot D63.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 04/28/2018 ANGEL FLOWERS Kayla BANQUET SUPERVISOR Ot N18.3 CHRONIC KIDNEY DISEASE, STAGE 3 (MODERAT 04/28/2018 KRISTIE ANGEL Garza BANQUET SUPERVISOR Ot Z79.899 OTHER PENITENTIARY (CURRENT) DRUG THERAPY 04/28/2018 FELICITA CEDEÑO MD, Ot R51 HEADACHE 04/28/2018 JANA PALACIOS Ot I10 ESSENTIAL (PRIMARY) HYPERTENSION 04/28/2018 JANA PALACIOS Ot I25.10 ATHSCL HEART DISEASE OF [place] CORONARY 04/28/2018 AJNA PALACIOS Ot I65.23 OCCLUSION AND STENOSIS OF BILATERAL [place] 04/28/2018 JANA PALACIOS Ot R07.89 OTHER CHEST PAIN 04/28/2018 MIRTA TORRES CASTING MACHINE SET UP OPERATOR Ot M25.511 PAIN IN RIGHT SHOULDER 04/28/2018 MIRTA TORRES CASTING MACHINE SET UP OPERATOR Ot R07.9 CHEST PAIN, UNSPECIFIED 04/28/2018 ANGEL FLOWERS BANQUET SUPERVISOR Ot D50.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 04/28/2018 ANGEL FLOWERS BANQUET SUPERVISOR Ot D63.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 04/28/2018 ANGEL FLOWERS Kayla BANQUET SUPERVISOR Ot N18.3 CHRONIC KIDNEY DISEASE, STAGE 3 (MODERAT 04/28/2018 ANGEL FLOWERS BANQUET SUPERVISOR Ot Z79.899 OTHER PENITENTIARY (CURRENT) DRUG THERAPY 04/28/2018 FELICITA CEDEÑO MD Ot E05.9 0 THYROTOXICOSIS, 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 THYROTOXIC 04/28/2018 FELICITA CEDEÑO MD, Ot E11.9 TYPE 2 DIABETES MELLITUS WITHOUT COMPLIC 04/28/2018 FELICITA CEDEÑO MD Ot E78.4 OTHER HYPERLIPIDEMIA 04/28/2018 FELICITA CEDEÑO MD Ot R94.6 ABNORMAL RESULTS OF THYROID FUNCTION SHAY 04/28/2018 TAPAN HUI MD Ot R05 COUGH 04/28/2018 TAPAN HUI MD Ot R13.19 OTHER DYSPHAGIA 04/28/2018 TAPAN HUI MD Ot R49 .0 DYSPHONIA 04/28/2018 DELILAH HARE Ot D64.9 ANEMIA, UNSPECIFIED 04/28/2018 DELILAH HARE Ot E87.1 HYPO-OSMOLALITY AND HYPONATREMIA 04/28/2018 FELICITA CEDEÑO MD Ot E05.9 0 THYROTOXICOSIS, 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 THYROTOXIC 04/28/2018 MIRTA TORRES APRN Ot D72.829 ELEVATED WHITE BLOOD CELL COUNT, UNSPECI 04/28/2018 MIRTA TORRES CASTING MACHINE SET UP OPERATOR Ot N39.0 URINARY TRACT INFECTION, SITE NOT SPECIF 04/28/2018 ANGEL FLOWERS S BANQUET SUPERVISOR Ot D50.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 04/28/2018 ANGEL FLOWERS BANQUET SUPERVISOR Ot D63.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 04/28/2018 ANGEL FLOWERS BANQUET SUPERVISOR Ot N18.3 CHRONIC KIDNEY DISEASE, STAGE 3 (MODERAT 04/28/2018 ANGEL FLOWERS BANQUET SUPERVISOR Ot Z79.899 OTHER PENITENTIARY (CURRENT) DRUG THERAPY 04/28/2018 DELILAH HARE Ot E87.1 HYPO-OSMOLALITY AND HYPONATREMIA 04/28/2018 JANA PALACIOS Ot E78.5 HYPERLIPIDEMIA, UNSPECIFIED 04/28/2018 Ot E78.2 MIXE D HYPERLIPIDEMIA 04/28/2018 FELICITA CEDEÑO MD, Ot N39.0 URINARY TRACT INFECTION, SITE NOT SPECIF 04/28/2018 FELICITA CEDEÑO MD Ot R19.7 DIARRHEA, UNSPECIFIED 04/28/2018 FELICITA CEDEÑO MD Ot E11.9 TYPE 2 DIABETES MELLITUS WITHOUT COMPLIC 04/28/2018 FELICITA CEDEÑO MD Ot E78.4 OTHER HYPERLIPIDEMIA 04/28/2018 FELICITA CEDEÑO MD Ot I10 ESSENTIAL (PRIMARY) HYPERTENSION 04/28/2018 FELICITA CEDEÑO MD Ot Z79.8 99 OTHER RATE QUOTING OPERATOR (CURRENT) DRUG THERAPY 04/28/2018 AR ALLEN DO Ot G47. 33 OBSTRUCTIVE SLEEP APNEA (ADULT) (PEDIATR 04/28/2018 AR ALLEN DO Ot J44. 9 CHRONIC OBSTRUCTIVE PULMONARY DISEASE, U 04/28/2018 AR ALLEN DO Ot R05 COUGH 04/28/2018 AR ALLEN DO Ot R06. 02 SHORTNESS OF BREATH 04/28/2018 KLARISSA MOSER APRN Ot E27.9 DISORDER OF ADRENAL GLAND, UNSPECIFIED 04/28/2018 SHANTI, KLARISSA E CASTING MACHINE SET UP OPERATOR Ot I25.10 ATHSCL HEART DISEASE OF [place] CORONARY 04/28/2018 KLARISSA MOSER APRN Ot I27.20 PULMONARY HYPERTENSION, UNSPECIFIED 04/28/2018 KLARISSA MOSER APRN Ot I51.7 CARDIOMEGALY 04/28/2018 KLARISSA MOSER APRN Ot J30.9 ALLERGIC RHINITIS, UNSPECIFIED 04/28/2018 KLARISSA MOSER APRN Ot R91.8 OTHER NONSPECIFIC ABNORMAL FINDING OF KIM 04/28/2018 FELICITA CEDEÑO MD Ot Z12.3 1 ENCNTR SCREEN MAMMOGRAM FOR MALIGNANT NE 04/28/2018 FELICITA CEDEÑO MD, Ot E11.9 TYPE 2 DIABETES MELLITUS WITHOUT COMPLIC 04/28/2018 FELICITA CEDEÑO MD, Ot E78.5 HYPERLIPIDEMIA, UNSPECIFIED 04/28/2018 FELICITA CEDEÑO MD, Ot I10 ESSENTIAL (PRIMARY) HYPERTENSION 04/28/2018 FELICITA CEDEÑO MD Ot Z79.8 99 OTHER PENITENTIARY (CURRENT) DRUG THERAPY 04/28/2018 ANGEL FLOWERS BANQUET SUPERVISOR Ot R26.81 UNSTEADINESS ON FEET 04/28/2018 ANGEL FLOWERS BANQUET SUPERVISOR Ot R41.82 ALTERED MENTAL STATUS, UNSPECIFIED 04/28/2018 FELICITA CEDEÑO MD, Ot E11.9 TYPE 2 DIABETES MELLITUS WITHOUT COMPLIC 04/28/2018 FELICITA CEDEÑO MD, Ot E78.5 HYPERLIPIDEMIA, UNSPECIFIED 04/28/2018 FELICITA CEDEÑO MD, Ot I10 ESSENTIAL (PRIMARY) HYPERTENSION 04/28/2018 FELICITA CEDEÑO MD Ot Z79.8 99 OTHER RATE QUOTING OPERATOR (CURRENT) DRUG THERAPY 04/28/2018 MIRTA TORRES APRN Ot S89.92XA UNSPECIFIED INJURY OF LEFT LOWER LEG, IN 04/28/2018 MIRTA TORRES APRN Ot X58.XXXA EXPOSURE TO OTHER SPECIFIED FACTORS, INI 04/28/2018 MIRTA TORRES APRN Ot Y99.8 OTHER EXTERNAL CAUSE STATUS 04/28/2018 MIRTA TORRES APRN Ot Z96.652 PRESENCE OF LEFT ARTIFICIAL KNEE JOINT 04/28/2018 FELICITA CEDEÑO MD Ot E11.8 TYPE 2 DIABETES MELLITUS WITH UNSPECIFIE 04/28/2018 FELICITA CEDEÑO MD Ot Z79.4 RATE QUOTING OPERATOR (CURRENT) USE OF INSULIN 04/28/2018 MIRTA TORRES APRN Ot M79.605 PAIN IN LEFT LEG 04/28/2018 MIRTA TORRES APRN Ot R60.0 LOCALIZED EDEMA 04/28/2018 MIRTA TORRES CASTING MACHINE SET UP OPERATOR Ot M79.89 OTHER SPECIFIED SOFT TISSUE DISORDERS 04/28/2018 JULIETTE GOMEZ MD, Ot E78. 2 MIXED HYPERLIPIDEMIA 04/28/2018 JULIETTE GOMEZ MD Ot I10 ESSENTIAL (PRIMARY) HYPERTENSION 04/28/2018 JULIETTE GOMEZ MD, Ot I25. 10 ATHSCL HEART DISEASE OF [place] CORONARY 04/28/2018 JULIETTE GOMEZ MD Ot I65. 29 OCCLUSION AND STENOSIS OF UNSPECIFIED CA 04/28/2018 JULIETTE GOMEZ MD, Ot J44. 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, UNSTAGEABLE 04/28/2018 TAPAN DUVALL MD, Ot 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 04/28/2018 TAPAN DUVALL MD, Ot L97.426 NON-PRS CHR ULC OF L HEEL/MIDFT W BNE IN 04/28/2018 TAPAN DUVALL MD, Ot 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, LEFT ANKLE AND FOOT 04/28/2018 TAPAN DUVALL MD, Ot E11.621 TYPE 2 DIABETES MELLITUS WITH FOOT ULCER 04/28/2018 TAPAN DUVALL MD, Ot E11.622 TYPE 2 DIABETES MELLITUS WITH OTHER SKIN 04/28/2018 TAPAN DUVALL MD Ot 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 04/28/2018 TAPAN DUVALL MD, Ot 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, UNSTAGEABLE 04/28/2018 TAPAN DUVALL MD, Ot L97.222 NON-PRESSURE CHRONIC ULCER OF LEFT CALF 04/28/2018 TAPAN DUVALL MD, Ot 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 04/28/2018 TAPAN DUVALL MD, Ot 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, LEFT ANKLE AND FOOT 04/28/2018 TAPAN DUVALL MD Ot E11.621 TYPE 2 DIABETES MELLITUS WITH FOOT ULCER 04/28/2018 TAPAN DUVALL MD, Ot E11.622 TYPE 2 DIABETES MELLITUS WITH OTHER SKIN 04/28/2018 TAPAN DUVALL MD, Ot 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 04/28/2018 TAPAN DUVALL MD, Ot 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, UNSTAGEABLE 04/28/2018 TAPAN DUVALL MD, Ot L97.222 NON-PRESSURE CHRONIC ULCER OF LEFT CALF 04/28/2018 TAPAN DUVALL MD, Ot 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 04/28/2018 TAPAN DUVALL MD, Ot 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, LEFT ANKLE AND FOOT 04/28/2018 DINORA GREEN Ot D50.9 IRON DEFICIENCY ANEMIA, UNSPECIFIED 04/28/2018 DINORA GREEN Ot D63.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 04/28/2018 DINORA GREEN Ot E03.9 HYPOTHYROIDISM, UNSPECIFIED 04/28/2018 DINORA GREEN Ot 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 04/28/2018 DINORA GREEN Ot E78.2 MIXED HYPERLIPIDEMIA 04/28/2018 DINORA GREEN Ot G47.33 OBSTRUCTIVE SLEEP APNEA (ADULT) (PEDIATR 04/28/2018 DINORA GREEN Ot 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 CHRONIC KIDNEY DISEASE W ST 04/28/2018 DINORA GREEN Ot I25.10 ATHSCL HEART DISEASE OF [place] CORONARY 04/28/2018 DINORA GREEN Ot I27.20 PULMONARY HYPERTENSION, UNSPECIFIED 04/28/2018 DINORA GREEN Ot I73.9 PERIPHERAL VASCULAR DISEASE, UNSPECIFIED 04/28/2018 DINORA GREEN Ot J44.9 CHRONIC OBSTRUCTIVE PULMONARY DISEASE, U 04/28/2018 DINORA GREEN Ot M19.91 PRIMARY OSTEOARTHRITIS, UNSPECIFIED SITE 04/28/2018 DINORA GREEN Ot N18.4 CHRONIC KIDNEY DISEASE, STAGE 4 (SEVERE) 04/28/2018 DINORA GREEN Ot R91.1 SOLITARY PULMONARY NODULE 04/28/2018 DINORA GREEN Ot Z79.4 RATE QUOTING OPERATOR (CURRENT) USE OF INSULIN 04/28/2018 DINORA GREEN Ot Z79.82 PENITENTIARY (CURRENT) USE OF ASPIRIN 04/28/2018 DINORA GREEN Ot Z79.899 OTHER PENITENTIARY (CURRENT) DRUG THERAPY 04/29/2018 TAPAN DUVALL MD, Ot E11.621 TYPE 2 DIABETES MELLITUS WITH FOOT ULCER 04/29/2018 TAPAN DUVALL MD, Ot 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 04/29/2018 TAPAN DUVALL MD, Ot L97.426 NON-PRS CHR ULC OF L HEEL/MIDFT W BNE IN 04/29/2018 TAPAN DUVALL MD, Ot 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, LEFT ANKLE AND FOOT 04/30/2018 ATPAN DUVALL MD, Ot E11.621 TYPE 2 DIABETES MELLITUS WITH FOOT ULCER 04/30/2018 TAPAN DUVALL MD, Ot 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 04/30/2018 TAPAN DUVALL MD, Ot 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, UNSTAGEABLE 04/30/2018 TAPAN DUVALL MD, Ot 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 04/30/2018 TAPAN DUVALL MD, Ot L97.426 NON-PRS CHR ULC OF L HEEL/MIDFT W BNE IN 04/30/2018 TAPAN DUVALL MD, Ot 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, LEFT ANKLE AND FOOT 04/30/2018 DINORA GREEN Ot D50.9 IRON DEFICIENCY ANEMIA, UNSPECIFIED 04/30/2018 DINORA GREEN Ot D63.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 04/30/2018 NORMA, BOBAN N Ot E03.9 HYPOTHYROIDISM, UNSPECIFIED 04/30/2018 NORMADINORA REYES N Ot 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 04/30/2018 DINORA GREEN N Ot E78.2 MIXED HYPERLIPIDEMIA 04/30/2018 NORMADINORA REYES N Ot G47.33 OBSTRUCTIVE SLEEP APNEA (ADULT) (PEDIATR 04/30/2018 NORMAJOSIERACHELLE N Ot 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 CHRONIC KIDNEY DISEASE W ST 04/30/2018 NORMAJOSIERACHELLE N Ot I25.10 ATHSCL HEART DISEASE OF [place] CORONARY 04/30/2018 NORMAJOSIERACHELLE N Ot I27.20 PULMONARY HYPERTENSION, UNSPECIFIED 04/30/2018 NORMA DINORA N Ot I73.9 PERIPHERAL VASCULAR DISEASE, UNSPECIFIED 04/30/2018 NORMAJOSIERACHELLE N Ot J44.9 CHRONIC OBSTRUCTIVE PULMONARY DISEASE, U 04/30/2018 DINORA GREEN N Ot M19.91 PRIMARY OSTEOARTHRITIS, UNSPECIFIED SITE 04/30/2018 NORMA DINORA N Ot N18.4 CHRONIC KIDNEY DISEASE, STAGE 4 (SEVERE) 04/30/2018 NORMA DINORA N Ot R91.1 SOLITARY PULMONARY NODULE 04/30/2018 NORMA DINORA N Ot Z79.4 RATE QUOTING OPERATOR (CURRENT) USE OF INSULIN 04/30/2018 NORMAJOSIERACHELLE N Ot Z79.82 RATE QUOTING OPERATOR (CURRENT) USE OF ASPIRIN 04/30/2018 NORMA DINORA N Ot Z79.899 OTHER RATE QUOTING OPERATOR (CURRENT) DRUG THERAPY 05/03/2018 SEN DELONG MD Ot D64. 9 ANEMIA, UNSPECIFIED 05/03/2018 SEN DELONG MD Ot E11. 9 TYPE 2 DIABETES MELLITUS WITHOUT COMPLIC 05/03/2018 SEN DELONG MD J Ot F03. 90 UNSPECIFIED DEMENTIA WITHOUT BEHAVIORAL 05/03/2018 SEN DELONG MD Ot F32. 9 MAJOR DEPRESSIVE DISORDER, SINGLE EPISOD 05/03/2018 SEN DELONG MD Ot F41. 9 ANXIETY DISORDER, UNSPECIFIED 05/03/2018 SEN DELONG MD J Ot G47. 30 SLEEP APNEA, UNSPECIFIED 05/03/2018 SEN DELONG MD Ot I10 ESSENTIAL (PRIMARY) HYPERTENSION 05/03/2018 SEN DELONG MD Ot I25. 10 ATHSCL HEART DISEASE OF [place] CORONARY 05/03/2018 SEN DELONG MD Ot K21. 9 GASTRO-ESOPHAGEAL REFLUX DISEASE WITHOUT 05/03/2018 SEN DELONG MD Ot L03.116 CELLULITIS OF LEFT LOWER LIMB 05/03/2018 SEN DELONG MD Ot L89.890 PRESSURE ULCER OF OTHER SITE, UNSTAGEABL 05/03/2018 SEN DELONG MD Ot S82.52XA DISP FX OF MEDIAL MALLEOLUS OF LEFT TIBI 05/03/2018 SEN DELONG MD Ot X58.XXXA EXPOSURE TO OTHER SPECIFIED FACTORS, INI 05/03/2018 SEN DELONG MD Ot Z79. 4 RATE QUOTING OPERATOR (CURRENT) USE OF INSULIN 05/03/2018 SEN DELONG MD Ot Z79. 51 PENITENTIARY (CURRENT) USE OF INHALED STERO 05/03/2018 SEN DELONG MD Ot Z79. 82 RATE QUOTING OPERATOR (CURRENT) USE OF ASPIRIN 05/03/2018 SEN DELONG MD Ot Z82. 49 FAMILY HX OF ISCHEM HEART DIS AND OTH DI 05/03/2018 SEN DELONG MD Ot Z86.010 PERSONAL HISTORY OF COLONIC POLYPS 05/03/2018 SEN DELONG MD Ot Z87.440 PERSONAL HISTORY OF URINARY (TRACT) INFE 05/03/2018 ESN DELONG MD Ot Z87.448 PERSONAL HISTORY OF OTHER DISEASES OF UR 05/03/2018 SEN DELONG MD Ot Z88. 2 ALLERGY STATUS TO SULFONAMIDES STATUS 05/03/2018 SEN DELONG MD Ot Z88. 7 ALLERGY STATUS TO SERUM AND VACCINE STAT 05/03/2018 SEN DELONG MD Ot Z90.710 ACQUIRED ABSENCE OF BOTH CERVIX AND UTER 05/03/2018 SEN DELONG MD Ot Z90. 89 ACQUIRED ABSENCE OF OTHER ORGANS 05/04/2018 SEN DELONG MD Ot D64. 9 ANEMIA, UNSPECIFIED 05/04/2018 SEN DELONG MD Ot E11. 9 TYPE 2 DIABETES MELLITUS WITHOUT COMPLIC 05/04/2018 SEN DELONG MD Ot F03. 90 UNSPECIFIED DEMENTIA WITHOUT BEHAVIORAL 05/04/2018 SEN DELONG MD Ot F32. 9 MAJOR DEPRESSIVE DISORDER, SINGLE EPISOD 05/04/2018 SEN DELONG MD Ot F41. 9 ANXIETY DISORDER, UNSPECIFIED 05/04/2018 SEN DELONG MD Ot G47. 30 SLEEP APNEA, UNSPECIFIED 05/04/2018 SEN DELONG MD Ot I10 ESSENTIAL (PRIMARY) HYPERTENSION 05/04/2018 SEN DELONG MD Ot I25. 10 ATHSCL HEART DISEASE OF [place] CORONARY 05/04/2018 SEN DELONG MD Ot K21. 9 GASTRO-ESOPHAGEAL REFLUX DISEASE WITHOUT 05/04/2018 SEN DELONG MD Ot L03.116 CELLULITIS OF LEFT LOWER LIMB 05/04/2018 SEN DELONG MD Ot L89.890 PRESSURE ULCER OF OTHER SITE, UNSTAGEABL 05/04/2018 SEN DELONG MD Ot S82.52XA DISP FX OF MEDIAL MALLEOLUS OF LEFT TIBI 05/04/2018 SEN DELONG MD Ot X58.XXXA EXPOSURE TO OTHER SPECIFIED FACTORS, INI 05/04/2018 SEN DELONG MD Ot Z79. 4 PENITENTIARY (CURRENT) USE OF INSULIN 05/04/2018 SEN DELONG MD Ot Z79. 51 RATE QUOTING OPERATOR (CURRENT) USE OF INHALED STERO 05/04/2018 SEN DELONG MD Ot Z79. 82 RATE QUOTING OPERATOR (CURRENT) USE OF ASPIRIN 05/04/2018 SEN DELONG MD, Ot Z82. 49 FAMILY HX OF ISCHEM HEART DIS AND OTH DI 05/04/2018 SEN DELONG MD Ot Z86.010 PERSONAL HISTORY OF COLONIC POLYPS 05/04/2018 SEN DELONG MD, Ot Z87.440 PERSONAL HISTORY OF URINARY (TRACT) INFE 05/04/2018 SEN DELONG MD Ot Z87.448 PERSONAL HISTORY OF OTHER DISEASES OF UR 05/04/2018 SEN DELONG MD Ot Z88. 2 ALLERGY STATUS TO SULFONAMIDES STATUS 05/04/2018 SEN DELONG MD, Ot Z88. 7 ALLERGY STATUS TO SERUM AND VACCINE STAT 05/04/2018 SEN DELONG MD Ot Z90.710 ACQUIRED ABSENCE OF BOTH CERVIX AND UTER 05/04/2018 SEN DELONG MD Ot Z90. 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 05/05/2018 MIRTA TORRES CASTING MACHINE SET UP OPERATOR Ot 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, UNSTAGEABLE 05/05/2018 BRIAN MIRTA R CASTING MACHINE SET UP OPERATOR Ot L97.222 NON-PRESSURE CHRONIC ULCER OF LEFT CALF 05/05/2018 MIRTA TORRES CASTING MACHINE SET UP OPERATOR Ot 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 05/05/2018 MIRTA TORRES CASTING MACHINE SET UP OPERATOR Ot 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, LEFT ANKLE AND FOOT 05/05/2018 TYLERHO DPM, SANJUANA Hess Ot D64.9 ANEMIA, UNSPECIFIED 05/05/2018 BLANCHO DPM, SANJUANA Hess Ot E03.9 HYPOTHYROIDISM, UNSPECIFIED 05/05/2018 BLANCHO DPM, SANJUANA Hess Ot E78.00 PURE HYPERCHOLESTEROLEMIA, UNSPECIFIED 05/05/2018 BLANCHO DPM, SANJUANA Hess Ot F03.90 UNSPECIFIED DEMENTIA WITHOUT BEHAVIORAL 05/05/2018 BLANCHO DPM, SANJUANA Hess Ot F32.9 MAJOR DEPRESSIVE DISORDER, SINGLE EPISOD 05/05/2018 BLANCHO DPM, SANJUANA Hess Ot F41.9 ANXIETY DISORDER, UNSPECIFIED 05/05/2018 BLANCHO DPM, SANJUANA Hess Ot G47.30 SLEEP APNEA, UNSPECIFIED 05/05/2018 BLANCHO DPEmmanuel, SANJUANA Hess Ot I1 0 ESSENTIAL (PRIMARY) HYPERTENSION 05/05/2018 BLANCHO DPM, SANJUANA Hess Ot I25.10 ATHSCL HEART DISEASE OF [place] CORONARY 05/05/2018 BLANCHO DPM, SANJUANA Hess Ot I73.9 PERIPHERAL VASCULAR DISEASE, UNSPECIFIED 05/05/2018 BLAMATAHO KEEGAN, SANJUANA Hess Ot K21.9 GASTRO-ESOPHAGEAL REFLUX DISEASE WITHOUT 05/05/2018 BLANCHO DPM, SANJUANA Hess Ot K44.9 DIAPHRAGMATIC HERNIA WITHOUT OBSTRUCTION 05/05/2018 ALENCHO DPEmmanuel, SANJUANA Hess Ot S82.52XA DISP FX OF MEDIAL MALLEOLUS OF LEFT TIBI 05/05/2018 TYLERHO DPEmmanuel, SANJUANA Hess Ot Z79.4 PENITENTIARY (CURRENT) USE OF INSULIN 05/06/2018 TAPAN DUVALL MD Ot E11.621 TYPE 2 DIABETES MELLITUS WITH FOOT ULCER 05/06/2018 TAPAN DUVALL MD Ot 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 05/06/2018 TAPAN DUVALL MD Ot 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, UNSTAGEABLE 05/06/2018 TAPAN DUVALL MD, Ot 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 05/06/2018 TAPAN DUVALL MD Ot L97.426 NON-PRS CHR ULC OF L HEEL/MIDFT W BNE IN 05/06/2018 TAPAN DUVALL MD Ot 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, LEFT ANKLE AND FOOT 05/06/2018 BLANCHO DPM, SANJUANA Hess Ot A52.16 CHARCOT'S ARTHROPATHY (TABETIC) 05/06/2018 BLANCHO DPM, SANJUANA Hess Ot D64.9 ANEMIA, UNSPECIFIED 05/06/2018 BLANCHO DPM, SANJUANA Hess Ot E03.9 HYPOTHYROIDISM, UNSPECIFIED 05/06/2018 BLANCHO DPM, SANJUANA Hess Ot E11.618 TYPE 2 DIABETES MELLITUS WITH OTHER DIAB 05/06/2018 BLANCHO DPM, SANJUANA Hess Ot E78.00 PURE HYPERCHOLESTEROLEMIA, UNSPECIFIED 05/06/2018 BLANCHO DPM, SANJUANA Hess Ot F03.90 UNSPECIFIED DEMENTIA WITHOUT BEHAVIORAL 05/06/2018 BLANCHO DPM, SANJUANA Hess Ot F32.9 MAJOR DEPRESSIVE DISORDER, SINGLE EPISOD 05/06/2018 BLANCHO DPM, SANJUANA Hess Ot F41.9 ANXIETY DISORDER, UNSPECIFIED 05/06/2018 BLANCHO DPM, SANJUANA Hess Ot G47.30 SLEEP APNEA, UNSPECIFIED 05/06/2018 BLANCHO DPM, SANJUANA Hess Ot G47.33 OBSTRUCTIVE SLEEP APNEA (ADULT) (PEDIATR 05/06/2018 BLAMATAHO DPSANJUANA Benitez Ot I1 0 ESSENTIAL (PRIMARY) HYPERTENSION 05/06/2018 BLANCHO DPM, SANJUANA Hess Ot 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 CHRONIC KIDNEY DISEASE W ST 05/06/2018 ALENCHO DPM, SANJUANA Hess Ot I25.10 ATHSCL HEART DISEASE OF [place] CORONARY 05/06/2018 BLANCHO DPM, SANJUANA Hess Ot I73.9 PERIPHERAL VASCULAR DISEASE, UNSPECIFIED 05/06/2018 BLANCHO DPM, SANJUANA Hess Ot K21.9 GASTRO-ESOPHAGEAL REFLUX DISEASE WITHOUT 05/06/2018 BLANCHO DPM, SANJUANA Hess Ot K44.9 DIAPHRAGMATIC HERNIA WITHOUT OBSTRUCTION 05/06/2018 TYLERHO DPM, SANJUANA Hess Ot L89.629 PRESSURE ULCER OF LEFT HEEL, UNSPECIFIED 05/06/2018 TYLERHO DPM, SANJUANA Hess Ot N18.3 CHRONIC KIDNEY DISEASE, STAGE 3 (MODERAT 05/06/2018 BLAMATAHO DPM, SANJUANA Hess Ot S82.52XA DISP FX OF MEDIAL MALLEOLUS OF LEFT TIBI 05/06/2018 ALENCHO DPM, SANJUANA Hess Ot S82.892A OTH FRACTURE OF LEFT LOWER LEG, INIT FOR 05/06/2018 TYLERHO ABIMAELM, SANJUANA Hess Ot Z79.4 RATE QUOTING OPERATOR (CURRENT) USE OF INSULIN 05/12/2018 TAPAN DUVALL MD, Ot E11.621 TYPE 2 DIABETES MELLITUS WITH FOOT ULCER 05/12/2018 TAPAN DUVALL MD, Ot E11.622 TYPE 2 DIABETES MELLITUS WITH OTHER SKIN 05/12/2018 TAPAN DUVALL MD, Ot 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 2 MIXED HYPERLIPIDEMIA 05/12/2018 JULIETTE GOMEZ MD Ot I10 ESSENTIAL (PRIMARY) HYPERTENSION 05/12/2018 JULIETTE GOMEZ MD Ot I25. 10 ATHSCL HEART DISEASE OF [place] CORONARY 05/12/2018 JULIETTE GOMEZ MD Ot I65. 29 OCCLUSION AND STENOSIS OF UNSPECIFIED CA 05/12/2018 JULIETTE GOMEZ MD Ot J44. 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 05/13/2018 TAPAN DUVALL MD, Ot 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, LEFT ANKLE AND FOOT 05/13/2018 Ot 496 CHR AI RWAY OBSTRUCT NEC 05/13/2018 Ot 786.05 GREG RTNESS OF BREATH 05/13/2018 Ot 786.2 COUGH 05/13/2018 FELICITA CEDEÑO MD, Ot N39.0 URINARY TRACT INFECTION, SITE NOT SPECIF 05/13/2018 FELICITA CEDEÑO MD Ot R19.7 DIARRHEA, UNSPECIFIED 05/13/2018 DINORA GREEN N Ot D50.9 IRON DEFICIENCY ANEMIA, UNSPECIFIED 05/13/2018 DINORA GREEN N Ot D63.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 05/13/2018 DINORA GREEN N Ot E03.9 HYPOTHYROIDISM, UNSPECIFIED 05/13/2018 DINORA GREEN N Ot 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 05/13/2018 DINORA GREEN N Ot E78.2 MIXED HYPERLIPIDEMIA 05/13/2018 DINORA GREEN N Ot G47.33 OBSTRUCTIVE SLEEP APNEA (ADULT) (PEDIATR 05/13/2018 DINORA GREEN N Ot 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 CHRONIC KIDNEY DISEASE W ST 05/13/2018 DINORA GREEN N Ot I25.10 ATHSCL HEART DISEASE OF [place] CORONARY 05/13/2018 DINORA GREEN N Ot I27.20 PULMONARY HYPERTENSION, UNSPECIFIED 05/13/2018 DINORA GREEN N Ot I73.9 PERIPHERAL VASCULAR DISEASE, UNSPECIFIED 05/13/2018 DINORA GREEN N Ot J44.9 CHRONIC OBSTRUCTIVE PULMONARY DISEASE, U 05/13/2018 DINORA GREEN N Ot M19.91 PRIMARY OSTEOARTHRITIS, UNSPECIFIED SITE 05/13/2018 DINORA GREEN N Ot N18.4 CHRONIC KIDNEY DISEASE, STAGE 4 (SEVERE) 05/13/2018 NORMADINORA REYES Casi Aguilera R91.1 SOLITARY PULMONARY NODULE 05/13/2018 NORMADINORA REYES Casi Aguilera Z79.4 RATE QUOTING OPERATOR (CURRENT) USE OF INSULIN 05/13/2018 NORMADINORA REYES Casi Ot Z79.82 PENITENTIARY (CURRENT) USE OF ASPIRIN 05/13/2018 NORMADINORA REYES Casi Aguilera Z79.899 OTHER PENITENTIARY (CURRENT) DRUG THERAPY 05/14/2018 ARABELLA AGUILERA DO, Ot Z01.818 ENCOUNTER FOR OTHER PREPROCEDURAL EXAMIN 05/18/2018 JULIETTE GOMEZ MD, Ot E78. 2 MIXED HYPERLIPIDEMIA 05/18/2018 JULIETTE GOMEZ MD, Ot I10 ESSENTIAL (PRIMARY) HYPERTENSION 05/18/2018 JULIETTE GOMEZ MD, Ot I25. 10 ATHSCL HEART DISEASE OF [place] CORONARY 05/18/2018 JULIETTE GOMEZ MD, Ot I65. 29 OCCLUSION AND STENOSIS OF UNSPECIFIED CA 05/18/2018 JULIETTE GOMEZ MD, Ot J44. 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 05/19/2018 TAPAN DUVALL MD, Ot 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, LEFT ANKLE AND FOOT 05/21/2018 ARABELLA AGUILERA DO Ot D 62 ACUTE POSTHEMORRHAGIC ANEMIA 05/21/2018 ARABELLA AGUILERA DO, Ot E03.9 HYPOTHYROIDISM, UNSPECIFIED 05/21/2018 ARABELLA AGUILERA DO Ot E07.9 DISORDER OF THYROID, UNSPECIFIED 05/21/2018 ARABELLA AGUILERA DO, Ot 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 05/21/2018 ARABELLA AGUILERA DO, Ot E11.52 TYPE 2 DIABETES W DIABETIC PERIPHERAL AN 05/21/2018 ARABELLA AGUILERA DO, Ot 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 05/21/2018 ARABELLA AGUILERA DO, Ot E11.618 TYPE 2 DIABETES MELLITUS WITH OTHER DIAB 05/21/2018 ARABELLA AGUILERA DO Ot E78.00 PURE HYPERCHOLESTEROLEMIA, UNSPECIFIED 05/21/2018 ARABELLA AGUILERA DO Ot E87.1 HYPO-OSMOLALITY AND HYPONATREMIA 05/21/2018 ARABELLA AGUILERA DO Ot F03.90 UNSPECIFIED DEMENTIA WITHOUT BEHAVIORAL 05/21/2018 ARABELLA AGUILERA DO Ot F32.9 MAJOR DEPRESSIVE DISORDER, SINGLE EPISOD 05/21/2018 ARABELLA AGUILERA DO, Ot F41.9 ANXIETY DISORDER, UNSPECIFIED 05/21/2018 ARABELLA AGUILERA DO, Ot G43.909 MIGRAINE, UNSP, NOT INTRACTABLE, WITHOUT 05/21/2018 ARABELLA AGUILERA DO Ot G47.33 OBSTRUCTIVE SLEEP APNEA (ADULT) (PEDIATR 05/21/2018 ARABELLA AGUILERA DO Ot 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 CHRONIC KIDNEY DISEASE W ST 05/21/2018 ARABELLA AGUILERA DO Ot I25.119 ATHSCL HEART DISEASE OF [place]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 W 05/21/2018 ARABELLA AGUILERA DO, Ot J44.9 CHRONIC OBSTRUCTIVE PULMONARY DISEASE, U 05/21/2018 ARABELLA AGUILERA DO Ot K21.9 GASTRO-ESOPHAGEAL REFLUX DISEASE WITHOUT 05/21/2018 ARABELLA AGUILERA DO Ot K44.9 DIAPHRAGMATIC HERNIA WITHOUT OBSTRUCTION 05/21/2018 ARABELLA AGUILERA DO Ot M19.91 PRIMARY OSTEOARTHRITIS, UNSPECIFIED SITE 05/21/2018 ARABELLA AGUILERA DO, Ot M87.872 OTHER OSTEONECROSIS, LEFT ANKLE 05/21/2018 ARABELLA AGUILERA DO Ot N18.9 CHRONIC KIDNEY DISEASE, UNSPECIFIED 05/21/2018 ARABELLA AGUILERA DO, Ot Z79.4 RATE QUOTING OPERATOR (CURRENT) USE OF INSULIN 05/21/2018 ARABELLA AGUILERA DO, Ot Z86.79 PERSONAL HISTORY OF OTHER DISEASES OF TH 05/21/2018 ARABELLA AGUILERA DO, Ot 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 05/21/2018 ARABELLA AGUILERA DO Ot Z95.5 PRESENCE OF CORONARY ANGIOPLASTY IMPLANT 05/28/2018 LINDA MCKEON MD Ot D64.9 ANEMIA, UNSPECIFIED 05/28/2018 LINDA MCKEON MD Ot E11.5 1 TYPE 2 DIABETES W DIABETIC PERIPHERAL AN 05/28/2018 LINDA MCKEON MD Ot E11.6 10 TYPE 2 DIABETES MELLITUS W DIABETIC NEUR 05/28/2018 LINDA MCKEON MD Ot G47.3 3 OBSTRUCTIVE SLEEP APNEA (ADULT) (PEDIATR 05/28/2018 LINDA MCKEON MD Ot I10 ESSENTIAL (PRIMARY) HYPERTENSION 05/28/2018 LINDA MCKEON MD E Ot K59.0 0 CONSTIPATION, UNSPECIFIED 05/28/2018 LINDA MCKEON MD E Ot M19.9 1 PRIMARY OSTEOARTHRITIS, UNSPECIFIED SITE 05/28/2018 LINDA MCKEON MD Ot R26.2 DIFFICULTY IN WALKING, NOT ELSEWHERE CLA 05/28/2018 LINDA MCKEON MD E Ot Z47.8 1 ENCOUNTER FOR ORTHOPEDIC AFTERCARE FOLLO 05/28/2018 LINDA MCKEON MD Ot Z79.0 1 PENITENTIARY (CURRENT) USE OF ANTICOAGULANT 05/28/2018 LINDA MCKEON MD E Ot Z89.5 12 ACQUIRED ABSENCE OF LEFT LEG BELOW KNEE 05/28/2018 LINDA MCKEON MD E Ot 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, BILAT 05/29/2018 LINDA MCKEON MD Ot D64.9 ANEMIA, UNSPECIFIED 05/29/2018 LINDA MCKEON MD Ot E11.5 1 TYPE 2 DIABETES W DIABETIC PERIPHERAL AN 05/29/2018 LINDA MCKEON MD Ot E11.6 10 TYPE 2 DIABETES MELLITUS W DIABETIC NEUR 05/29/2018 LINDA MCKEON MD Ot G47.3 3 OBSTRUCTIVE SLEEP APNEA (ADULT) (PEDIATR 05/29/2018 LINDA MCKEON MD E Ot I10 ESSENTIAL (PRIMARY) HYPERTENSION 05/29/2018 LINDA MCKEON MD E Ot K59.0 0 CONSTIPATION, UNSPECIFIED 05/29/2018 LINDA MCKEON MD E Ot M19.9 1 PRIMARY OSTEOARTHRITIS, UNSPECIFIED SITE 05/29/2018 LINDA MCKEON MD Ot R26.2 DIFFICULTY IN WALKING, NOT ELSEWHERE CLA 05/29/2018 LINDA MCKEON MD E Ot Z47.8 1 ENCOUNTER FOR ORTHOPEDIC AFTERCARE FOLLO 05/29/2018 LINDA MCKEON MD E Ot Z79.0 1 RATE QUOTING OPERATOR (CURRENT) USE OF ANTICOAGULANT 05/29/2018 LINDA MCKEON MD Ot Z89.5 12 ACQUIRED ABSENCE OF LEFT LEG BELOW KNEE 05/29/2018 LINDA MCKEON MD Ot 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, BILAT 05/29/2018 LINDA MCKEON MD Ot D64.9 ANEMIA, UNSPECIFIED 05/29/2018 LINDA MCKEON MD Ot E11.5 1 TYPE 2 DIABETES W DIABETIC PERIPHERAL AN 05/29/2018 LINDA MCKEON MD, Ot E11.6 10 TYPE 2 DIABETES MELLITUS W DIABETIC NEUR 05/29/2018 LINDA MCKEON MD Ot G47.3 3 OBSTRUCTIVE SLEEP APNEA (ADULT) (PEDIATR 05/29/2018 LINDA MCKEON MD Ot I10 ESSENTIAL (PRIMARY) HYPERTENSION 05/29/2018 LINDA MCKEON MD, Ot K59.0 0 CONSTIPATION, UNSPECIFIED 05/29/2018 LINDA MCKEON MD Ot M19.9 1 PRIMARY OSTEOARTHRITIS, UNSPECIFIED SITE 05/29/2018 LINDA MCKEON MD Ot R26.2 DIFFICULTY IN WALKING, NOT ELSEWHERE CLA 05/29/2018 LINDA MCKEON MD Ot Z47.8 1 ENCOUNTER FOR ORTHOPEDIC AFTERCARE FOLLO 05/29/2018 LINDA MCKEON MD Ot Z79.0 1 RATE QUOTING OPERATOR (CURRENT) USE OF ANTICOAGULANT 05/29/2018 LINDA MCKEON MD, Ot Z89.5 12 ACQUIRED ABSENCE OF LEFT LEG BELOW KNEE 05/29/2018 LINDA MCKEON MD Ot 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, BILAT 06/01/2018 TAPAN DUVALL MD, Ot E11.621 TYPE 2 DIABETES MELLITUS WITH FOOT ULCER 06/01/2018 TAPAN DUVALL MD, Ot E11.622 TYPE 2 DIABETES MELLITUS WITH OTHER SKIN 06/01/2018 TAPAN DUVALL MD, Ot 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 9 SEPSIS, UNSPECIFIED ORGANISM 06/05/2018 SUHA TAYLOR MD Ot D63. 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 06/05/2018 SUHA TAYLOR MD Ot E03. 9 HYPOTHYROIDISM, UNSPECIFIED 06/05/2018 SUHA TAYLOR MD Ot E11. 22 TYPE 2 DIABETES MELLITUS W DIABETIC SERVICE OBSERVER CHIEF 06/05/2018 SUHA TAYLOR MD Ot E11. 51 TYPE 2 DIABETES W DIABETIC PERIPHERAL AN 06/05/2018 SUHA TAYLOR MD Ot E78. 00 PURE HYPERCHOLESTEROLEMIA, UNSPECIFIED 06/05/2018 SUHA TAYLOR MD Ot E87. 2 ACIDOSIS 06/05/2018 SUHA TAYLOR MD Ot F03. 90 UNSPECIFIED DEMENTIA WITHOUT BEHAVIORAL 06/05/2018 SUHA TAYLOR MD Ot F32. 9 MAJOR DEPRESSIVE DISORDER, SINGLE EPISOD 06/05/2018 SUHA TAYLOR MD, Ot F41. 9 ANXIETY DISORDER, UNSPECIFIED 06/05/2018 SUHA TAYLOR MD Ot G47. 30 SLEEP APNEA, UNSPECIFIED 06/05/2018 SUHA TAYLOR MD Ot I10 ESSENTIAL (PRIMARY) HYPERTENSION 06/05/2018 SUHA TAYLOR MD Ot I25. 10 ATHSCL HEART DISEASE OF [place] CORONARY 06/05/2018 SUHA TAYLOR MD Ot I73. 9 PERIPHERAL VASCULAR DISEASE, UNSPECIFIED 06/05/2018 SUHA TAYLOR MD Ot J30. 2 OTHER SEASONAL ALLERGIC RHINITIS 06/05/2018 SUHA TAYLOR MD Ot K21. 9 GASTRO-ESOPHAGEAL REFLUX DISEASE WITHOUT 06/05/2018 SUHA TAYLOR MD Ot K44. 9 DIAPHRAGMATIC HERNIA WITHOUT OBSTRUCTION 06/05/2018 SUHA TAYLOR MD Ot M19. 91 PRIMARY OSTEOARTHRITIS, UNSPECIFIED SITE 06/05/2018 SUHA TAYLOR MD Ot N18. 3 CHRONIC KIDNEY DISEASE, STAGE 3 (MODERAT 06/05/2018 SUHA TAYLOR MD Ot N30. 00 ACUTE CYSTITIS WITHOUT HEMATURIA 06/05/2018 SUHA TAYLOR MD Ot R65. 20 SEVERE SEPSIS WITHOUT SEPTIC SHOCK 06/05/2018 SUHA TAYLOR MD Ot Z79. 4 RATE QUOTING OPERATOR (CURRENT) USE OF INSULIN 06/05/2018 SUHA TAYLOR MD Ot Z89.512 ACQUIRED ABSENCE OF LEFT LEG BELOW KNEE 06/05/2018 SUHA TAYLOR MD Ot Z95. 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 06/09/2018 TAPAN DUVALL MD, Ot 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, LEFT ANKLE AND FOOT 06/09/2018 TAPAN DUVALL MD, Ot E11.621 TYPE 2 DIABETES MELLITUS WITH FOOT ULCER 06/09/2018 TAPAN DUVALL MD, Ot E11.622 TYPE 2 DIABETES MELLITUS WITH OTHER SKIN 06/09/2018 TAPAN DUVALL MD Ot 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 06/09/2018 TAPAN DUVALL MD, Ot 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, UNSTAGEABLE 06/09/2018 TAPAN DUVALL MD Ot L97.222 NON-PRESSURE CHRONIC ULCER OF LEFT CALF 06/09/2018 TAPAN DUVALL MD Ot 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 06/09/2018 TAPAN DUVALL MD, Ot 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, LEFT ANKLE AND FOOT 06/10/2018 TAPAN DUVALL MD, Ot E11.621 TYPE 2 DIABETES MELLITUS WITH FOOT ULCER 06/10/2018 TAPAN DUVALL MD Ot E11.622 TYPE 2 DIABETES MELLITUS WITH OTHER SKIN 06/10/2018 TAPAN DUVALL MD Ot 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 06/10/2018 TAPAN DUVALL MD Ot 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, UNSTAGEABLE 06/10/2018 TAPAN DUVALL MD, Ot L97.222 NON-PRESSURE CHRONIC ULCER OF LEFT CALF 06/10/2018 TAPAN DUVALL MD, Ot 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 06/10/2018 TAPAN DUVALL MD, Ot 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, LEFT ANKLE AND FOOT 06/25/2018 MIRTA TORRES CASTING MACHINE SET UP OPERATOR Ot E11.621 TYPE 2 DIABETES MELLITUS WITH FOOT ULCER 06/25/2018 MIRTA TORRES CASTING MACHINE SET UP OPERATOR Ot E11.622 TYPE 2 DIABETES MELLITUS WITH OTHER SKIN 06/25/2018 MIRTA TORRES CASTING MACHINE SET UP OPERATOR Ot 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 06/25/2018 MIRTA TORRES CASTING MACHINE SET UP OPERATOR Ot 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, UNSTAGEABLE 06/25/2018 MIRTA TORRES CASTING MACHINE SET UP OPERATOR Ot L97.222 NON-PRESSURE CHRONIC ULCER OF LEFT CALF 06/25/2018 MIRTA TORRES CASTING MACHINE SET UP OPERATOR Ot 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 06/25/2018 MIRTA TORRES CASTING MACHINE SET UP OPERATOR Ot 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, LEFT ANKLE AND FOOT 06/25/2018 DINORA GREEN Ot D50.9 IRON DEFICIENCY ANEMIA, UNSPECIFIED 06/25/2018 DINORA GREEN N Ot D63.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 06/25/2018 DINORA GREEN Ot E03.9 HYPOTHYROIDISM, UNSPECIFIED 06/25/2018 DINORA GREEN N Ot 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 06/25/2018 DINORA GREEN N Ot E78.2 MIXED HYPERLIPIDEMIA 06/25/2018 DINORA GREEN N Ot G47.33 OBSTRUCTIVE SLEEP APNEA (ADULT) (PEDIATR 06/25/2018 DINORA GREEN N Ot 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 CHRONIC KIDNEY DISEASE W ST 06/25/2018 DINORA GREEN N Ot I25.10 ATHSCL HEART DISEASE OF [place] CORONARY 06/25/2018 DINORA GREEN Ot I27.20 PULMONARY HYPERTENSION, UNSPECIFIED 06/25/2018 DINORA GREEN Ot I73.9 PERIPHERAL VASCULAR DISEASE, UNSPECIFIED 06/25/2018 DINORA GREEN Ot J44.9 CHRONIC OBSTRUCTIVE PULMONARY DISEASE, U 06/25/2018 DINORA GREEN Ot M19.91 PRIMARY OSTEOARTHRITIS, UNSPECIFIED SITE 06/25/2018 DINORA GREEN Ot N18.4 CHRONIC KIDNEY DISEASE, STAGE 4 (SEVERE) 06/25/2018 DINORA GREEN Ot R91.1 SOLITARY PULMONARY NODULE 06/25/2018 DINORA GREEN Ot Z79.4 RATE QUOTING OPERATOR (CURRENT) USE OF INSULIN 06/25/2018 DINORA GREEN Ot Z79.82 RATE QUOTING OPERATOR (CURRENT) USE OF ASPIRIN 06/25/2018 DINORA GREEN Ot Z79.899 OTHER PENITENTIARY (CURRENT) DRUG THERAPY 07/01/2018 MIRTA TORRES CASTING MACHINE SET UP OPERATOR Ot E11.621 TYPE 2 DIABETES MELLITUS WITH FOOT ULCER 07/01/2018 MIRTA TORRES APRN Ot E11.622 TYPE 2 DIABETES MELLITUS WITH OTHER SKIN 07/01/2018 MIRTA TORRES CASTING MACHINE SET UP OPERATOR Ot 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 07/01/2018 MIRTA TORRES CASTING MACHINE SET UP OPERATOR Ot 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, UNSTAGEABLE 07/01/2018 MIRTA TORRES CASTING MACHINE SET UP OPERATOR Ot L97.222 NON-PRESSURE CHRONIC ULCER OF LEFT CALF 07/01/2018 MIRTA TORRES CASTING MACHINE SET UP OPERATOR Ot 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 07/01/2018 MIRTA TORRES CASTING MACHINE SET UP OPERATOR Ot 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, LEFT ANKLE AND FOOT 07/07/2018 DINORA GREEN N Ot D50.9 IRON DEFICIENCY ANEMIA, UNSPECIFIED 07/07/2018 DINORA GREEN N Ot D63.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 07/07/2018 DINORA GREEN Ot E03.9 HYPOTHYROIDISM, UNSPECIFIED 07/07/2018 DINORA GREEN N Ot 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 07/07/2018 DINORA GREEN N Ot E78.2 MIXED HYPERLIPIDEMIA 07/07/2018 DINORA GREEN N Ot G47.33 OBSTRUCTIVE SLEEP APNEA (ADULT) (PEDIATR 07/07/2018 DINORA GREEN N Ot 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 CHRONIC KIDNEY DISEASE W ST 07/07/2018 DINORA GREEN Casi Ot I25.10 ATHSCL HEART DISEASE OF [place] CORONARY 07/07/2018 DINORA GREEN Casi Ot I27.20 PULMONARY HYPERTENSION, UNSPECIFIED 07/07/2018 DINORA GREEN Casi Ot I73.9 PERIPHERAL VASCULAR DISEASE, UNSPECIFIED 07/07/2018 NORMA JOSIERACHELLE Casi Ot J44.9 CHRONIC OBSTRUCTIVE PULMONARY DISEASE, U 07/07/2018 DINORA GREEN Casi Ot M19.91 PRIMARY OSTEOARTHRITIS, UNSPECIFIED SITE 07/07/2018 DINORA GREEN Casi Ot N18.4 CHRONIC KIDNEY DISEASE, STAGE 4 (SEVERE) 07/07/2018 DINORA GREEN Casi Ot R91.1 SOLITARY PULMONARY NODULE 07/07/2018 DINORA GREEN Casi Ot Z79.4 PENITENTIARY (CURRENT) USE OF INSULIN 07/07/2018 NORMA, JOSIERACHELLE Casi Ot Z79.82 PENITENTIARY (CURRENT) USE OF ASPIRIN 07/07/2018 NORMADINORA REYES Casi Ot Z79.899 OTHER PENITENTIARY (CURRENT) DRUG THERAPY 07/08/2018 DIETER LOVE APRN Ot D64 .9 ANEMIA, UNSPECIFIED 07/08/2018 DIETER LOVE APRN Ot 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 07/08/2018 DIETER LOVE APRN Ot E87 .1 HYPO-OSMOLALITY AND HYPONATREMIA 07/08/2018 DIETER LOVE APRN Ot F03.90 UNSPECIFIED DEMENTIA WITHOUT BEHAVIORAL 07/08/2018 DIETER LOVE APRN Ot F32 .9 MAJOR DEPRESSIVE DISORDER, SINGLE EPISOD 07/08/2018 DIETER LOVE APRN Ot F41 .9 ANXIETY DISORDER, UNSPECIFIED 07/08/2018 DIETER LOVE APRN Ot I12 .9 HYPERTENSIVE CHRONIC KIDNEY DISEASE W ST 07/08/2018 DIETER LOVE APRN Ot I25.10 ATHSCL HEART DISEASE OF [place] CORONARY 07/08/2018 DIETER LOVE APRN Ot K21 .9 GASTRO-ESOPHAGEAL REFLUX DISEASE WITHOUT 07/08/2018 DIETER LOVE APRN Ot N18 .9 CHRONIC KIDNEY DISEASE, UNSPECIFIED 07/08/2018 DIETER LOVE APRN Ot N39 .0 URINARY TRACT INFECTION, SITE NOT SPECIF 07/08/2018 DIETER LOVE APRN Ot R25 .1 TREMOR, UNSPECIFIED 07/08/2018 DIETER LOVE APRN Ot Z79 .4 RATE QUOTING OPERATOR (CURRENT) USE OF INSULIN 07/08/2018 DIETER LOVE APRN Ot Z79.51 RATE QUOTING OPERATOR (CURRENT) USE OF INHALED STERO 07/08/2018 DIETER LOVE APRN Ot Z82.49 FAMILY HX OF ISCHEM HEART DIS AND OTH DI 07/08/2018 DIETER LOVE APRN Ot Z86.010 PERSONAL HISTORY OF COLONIC POLYPS 07/08/2018 DIETER LOVE APRN Ot Z87.01 PERSONAL HISTORY OF PNEUMONIA (RECURRENT 07/08/2018 DIETER LOVE APRN Ot Z87.19 PERSONAL HISTORY OF OTHER DISEASES OF TH 07/08/2018 DIETER LOVE APRN Ot Z87.440 PERSONAL HISTORY OF URINARY (TRACT) INFE 07/08/2018 DIETER LOVE APRN Ot Z88 .0 ALLERGY STATUS TO PENICILLIN 07/08/2018 DIETER LOVE APRN Ot Z88 .7 ALLERGY STATUS TO SERUM AND VACCINE STAT 07/08/2018 DIETER LOVE APRN Ot Z90.710 ACQUIRED ABSENCE OF BOTH CERVIX AND UTER 07/08/2018 DIETER LOVE APRN Ot Z90.89 ACQUIRED ABSENCE OF OTHER ORGANS 07/25/2018 DINORA GREEN Ot D50.9 IRON DEFICIENCY ANEMIA, UNSPECIFIED 07/25/2018 DINORA GREEN Ot D63.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 07/25/2018 DINORA GREEN Ot E03.9 HYPOTHYROIDISM, UNSPECIFIED 07/25/2018 DINORA GREEN Ot 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 07/25/2018 DINORA GREEN Ot E78.2 MIXED HYPERLIPIDEMIA 07/25/2018 DIN[place]A GREEN Ot G47.33 OBSTRUCTIVE SLEEP APNEA (ADULT) (PEDIATR 07/25/2018 DINORA GREEN Ot 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 CHRONIC KIDNEY DISEASE W ST 07/25/2018 DINORA GREEN Ot I25.10 ATHSCL HEART DISEASE OF [place] CORONARY 07/25/2018 DINORA GREEN Ot I27.20 PULMONARY HYPERTENSION, UNSPECIFIED 07/25/2018 DINORA GREEN Ot I73.9 PERIPHERAL VASCULAR DISEASE, UNSPECIFIED 07/25/2018 DINORA GREEN N Ot J44.9 CHRONIC OBSTRUCTIVE PULMONARY DISEASE, U 07/25/2018 NORMADINORA REYES N Ot M19.91 PRIMARY OSTEOARTHRITIS, UNSPECIFIED SITE 07/25/2018 DINORA GREEN N Ot N18.4 CHRONIC KIDNEY DISEASE, STAGE 4 (SEVERE) 07/25/2018 DINORA GREEN N Ot R91.1 SOLITARY PULMONARY NODULE 07/25/2018 DIN[place]A GREEN N Ot Z79.4 PENITENTIARY (CURRENT) USE OF INSULIN 07/25/2018 JOSIE GREENAN N Ot Z79.82 PENITENTIARY (CURRENT) USE OF ASPIRIN 07/25/2018 DIN[place]A GREEN N Ot Z79.899 OTHER PENITENTIARY (CURRENT) DRUG THERAPY 07/27/2018 DIN[place]A GREEN N Ot D50.9 IRON DEFICIENCY ANEMIA, UNSPECIFIED 07/27/2018 DINORA GREEN N Ot D63.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 07/27/2018 DINORA GREEN N Ot E03.9 HYPOTHYROIDISM, UNSPECIFIED 07/27/2018 DINORA GREEN N Ot 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 07/27/2018 DINORA GREEN N Ot E78.2 MIXED HYPERLIPIDEMIA 07/27/2018 DINORA GREEN N Ot G47.33 OBSTRUCTIVE SLEEP APNEA (ADULT) (PEDIATR 07/27/2018 DINORA GREEN N Ot 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 CHRONIC KIDNEY DISEASE W ST 07/27/2018 DINORA GREEN N Ot I25.10 ATHSCL HEART DISEASE OF [place] CORONARY 07/27/2018 DINORA GREEN N Ot I27.20 PULMONARY HYPERTENSION, UNSPECIFIED 07/27/2018 DINORA GREEN N Ot I73.9 PERIPHERAL VASCULAR DISEASE, UNSPECIFIED 07/27/2018 DINORA GREEN N Ot J44.9 CHRONIC OBSTRUCTIVE PULMONARY DISEASE, U 07/27/2018 DINORA GREEN N Ot M19.91 PRIMARY OSTEOARTHRITIS, UNSPECIFIED SITE 07/27/2018 DINORA GREEN N Ot N18.4 CHRONIC KIDNEY DISEASE, STAGE 4 (SEVERE) 07/27/2018 DINORA GREEN N Ot R91.1 SOLITARY PULMONARY NODULE 07/27/2018 DINORA GREEN N Ot Z79.4 RATE QUOTING OPERATOR (CURRENT) USE OF INSULIN 07/27/2018 DIN[place]A GREEN Ot Z79.82 PENITENTIARY (CURRENT) USE OF ASPIRIN 07/27/2018 DINORA GREEN Ot Z79.899 OTHER RATE QUOTING OPERATOR (CURRENT) DRUG THERAPY 07/27/2018 ALE DO, ARABELLA F Ot Z47.89 ENCOUNTER FOR OTHER ORTHOPEDIC AFTERCARE 07/27/2018 ALE DO, ARABELLA F Ot Z89.512 ACQUIRED ABSENCE OF LEFT LEG BELOW KNEE 07/29/2018 ALE DO, ARABELLA F Ot Z47.89 ENCOUNTER FOR OTHER ORTHOPEDIC AFTERCARE 07/29/2018 ALE DO, ARABELLA F Ot Z89.512 ACQUIRED ABSENCE OF LEFT LEG BELOW KNEE 07/29/2018 ALE DO, ARABELLA F Ot Z47.89 ENCOUNTER FOR OTHER ORTHOPEDIC AFTERCARE 07/29/2018 ALE DO, ARABELLA F Ot Z89.512 ACQUIRED ABSENCE OF LEFT LEG BELOW KNEE 07/30/2018 DINORA GREEN Ot D50.9 IRON DEFICIENCY ANEMIA, UNSPECIFIED 07/30/2018 DINORA GREEN Ot D63.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 07/30/2018 DINORA GREEN Ot E03.9 HYPOTHYROIDISM, UNSPECIFIED 07/30/2018 DINORA GREEN Ot 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 07/30/2018 DINORA GREEN Ot E78.2 MIXED HYPERLIPIDEMIA 07/30/2018 DINORA GREEN Ot G47.33 OBSTRUCTIVE SLEEP APNEA (ADULT) (PEDIATR 07/30/2018 DINORA GREEN Ot 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 CHRONIC KIDNEY DISEASE W ST 07/30/2018 DINORA GREEN Ot I25.10 ATHSCL HEART DISEASE OF [place] CORONARY 07/30/2018 DINORA GREEN Ot I27.20 PULMONARY HYPERTENSION, UNSPECIFIED 07/30/2018 DINORA GREEN Ot I73.9 PERIPHERAL VASCULAR DISEASE, UNSPECIFIED 07/30/2018 DIN[place]A GREEN Ot J44.9 CHRONIC OBSTRUCTIVE PULMONARY DISEASE, U 07/30/2018 DINORA GREEN Ot M19.91 PRIMARY OSTEOARTHRITIS, UNSPECIFIED SITE 07/30/2018 DINORA GREEN Ot N18.4 CHRONIC KIDNEY DISEASE, STAGE 4 (SEVERE) 07/30/2018 DINORA GREEN Ot R82.998 OTHER ABNORMAL FINDINGS IN URINE 07/30/2018 DINORA GREEN Ot R91.1 SOLITARY PULMONARY NODULE 07/30/2018 DINORA GREEN Ot Z79.4 RATE QUOTING OPERATOR (CURRENT) USE OF INSULIN 07/30/2018 DINORA GREEN Ot Z79.82 PENITENTIARY (CURRENT) USE OF ASPIRIN 07/30/2018 DINORA GREEN Ot Z79.899 OTHER PENITENTIARY (CURRENT) DRUG THERAPY 08/05/2018 DINORA GREEN Ot D50.9 IRON DEFICIENCY ANEMIA, UNSPECIFIED 08/05/2018 DINORA GREEN Ot D63.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 08/05/2018 DINORA GREEN Ot E03.9 HYPOTHYROIDISM, UNSPECIFIED 08/05/2018 DINORA GREEN Ot 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 08/05/2018 DINORA GREEN Ot E78.2 MIXED HYPERLIPIDEMIA 08/05/2018 DINORA GREEN Ot G47.33 OBSTRUCTIVE SLEEP APNEA (ADULT) (PEDIATR 08/05/2018 DINORA GREEN Ot 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 CHRONIC KIDNEY DISEASE W ST 08/05/2018 DINORA GREEN Ot I25.10 ATHSCL HEART DISEASE OF [place] CORONARY 08/05/2018 DINORA GREEN Ot I27.20 PULMONARY HYPERTENSION, UNSPECIFIED 08/05/2018 DINORA GREEN Ot I73.9 PERIPHERAL VASCULAR DISEASE, UNSPECIFIED 08/05/2018 DIN[place]A GREEN Ot J44.9 CHRONIC OBSTRUCTIVE PULMONARY DISEASE, U 08/05/2018 DINORA GREEN Ot M19.91 PRIMARY OSTEOARTHRITIS, UNSPECIFIED SITE 08/05/2018 DINORA GREEN Ot N18.4 CHRONIC KIDNEY DISEASE, STAGE 4 (SEVERE) 08/05/2018 DINORA GREEN Ot R91.1 SOLITARY PULMONARY NODULE 08/05/2018 DINORA GREEN Ot Z79.4 PENITENTIARY (CURRENT) USE OF INSULIN 08/05/2018 DINORA GREEN Ot Z79.82 PENITENTIARY (CURRENT) USE OF ASPIRIN 08/05/2018 DINORA GREEN Ot Z79.899 OTHER RATE QUOTING OPERATOR (CURRENT) DRUG THERAPY 08/18/2018 ARABELLA AGUILERA DO Ot Z47.89 ENCOUNTER FOR OTHER ORTHOPEDIC AFTERCARE 08/18/2018 ARABELLA AGUILERA DO Ot Z89.512 ACQUIRED ABSENCE OF LEFT LEG BELOW KNEE 08/20/2018 ALE DO, ARABELLA F Ot Z47.89 ENCOUNTER FOR OTHER ORTHOPEDIC AFTERCARE 08/20/2018 ALE DO, ARABELLA F Ot Z89.512 ACQUIRED ABSENCE OF LEFT LEG BELOW KNEE 08/24/2018 ALE DO, ARABELLA F Ot Z47.89 ENCOUNTER FOR OTHER ORTHOPEDIC AFTERCARE 08/24/2018 ALE DO, ARABELLA F Ot Z89.512 ACQUIRED ABSENCE OF LEFT LEG BELOW KNEE 09/03/2018 ALE DO, ARABELLA F Ot Z47.89 ENCOUNTER FOR OTHER ORTHOPEDIC AFTERCARE 09/03/2018 ALE DO, ARABELLA F Ot Z89.512 ACQUIRED ABSENCE OF LEFT LEG BELOW KNEE 09/18/2018 DINORA GREEN Ot D50.9 IRON DEFICIENCY ANEMIA, UNSPECIFIED 09/18/2018 DINORA GREEN Ot D63.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 09/18/2018 DINORA GREEN Ot E03.9 HYPOTHYROIDISM, UNSPECIFIED 09/18/2018 DINORA GREEN Ot 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 09/18/2018 DINORA GREEN Ot E78.2 MIXED HYPERLIPIDEMIA 09/18/2018 DINORA GREEN Ot G47.33 OBSTRUCTIVE SLEEP APNEA (ADULT) (PEDIATR 09/18/2018 DIONRA GREEN Ot 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 CHRONIC KIDNEY DISEASE W ST 09/18/2018 DINORA GREEN Ot I25.10 ATHSCL HEART DISEASE OF [place] CORONARY 09/18/2018 DINORA GREEN Ot I27.20 PULMONARY HYPERTENSION, UNSPECIFIED 09/18/2018 DINORA GREEN Ot I73.9 PERIPHERAL VASCULAR DISEASE, UNSPECIFIED 09/18/2018 DINORA GREEN Ot J44.9 CHRONIC OBSTRUCTIVE PULMONARY DISEASE, U 09/18/2018 DINORA GREEN Ot M19.91 PRIMARY OSTEOARTHRITIS, UNSPECIFIED SITE 09/18/2018 DINORA GREEN Ot N18.4 CHRONIC KIDNEY DISEASE, STAGE 4 (SEVERE) 09/18/2018 DINORA GREEN Ot R91.1 SOLITARY PULMONARY NODULE 09/18/2018 DINORA GREEN Ot Z79.4 RATE QUOTING OPERATOR (CURRENT) USE OF INSULIN 09/18/2018 DINORA GREEN Ot Z79.82 RATE QUOTING OPERATOR (CURRENT) USE OF ASPIRIN 09/18/2018 DINORA GREEN Ot Z79.899 OTHER RATE QUOTING OPERATOR (CURRENT) DRUG THERAPY 09/21/2018 ALE DOARABELLA Ot Z47.89 ENCOUNTER FOR OTHER ORTHOPEDIC AFTERCARE 09/21/2018 ALE DO, ARABELLA Robins Ot Z89.512 ACQUIRED ABSENCE OF LEFT LEG BELOW KNEE 09/23/2018 ALE DOARABELLA Ot Z47.89 ENCOUNTER FOR OTHER ORTHOPEDIC AFTERCARE 09/23/2018 ALE DOARABELLA Ot Z89.512 ACQUIRED ABSENCE OF LEFT LEG BELOW KNEE 11/02/2018 DINORA GREEN Ot D50.9 IRON DEFICIENCY ANEMIA, UNSPECIFIED 11/02/2018 DINORA GREEN Ot D63.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 11/02/2018 DINORA GREEN Ot E03.9 HYPOTHYROIDISM, UNSPECIFIED 11/02/2018 DINORA GREEN Ot 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 11/02/2018 DINORA GREEN Ot E78.2 MIXED HYPERLIPIDEMIA 11/02/2018 DINORA GREEN Ot G47.33 OBSTRUCTIVE SLEEP APNEA (ADULT) (PEDIATR 11/02/2018 DINORA GREEN Ot 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 CHRONIC KIDNEY DISEASE W ST 11/02/2018 DINORA GREEN Ot I25.10 ATHSCL HEART DISEASE OF [place] CORONARY 11/02/2018 DINORA GREEN Ot I27.20 PULMONARY HYPERTENSION, UNSPECIFIED 11/02/2018 DINORA GREEN Ot I73.9 PERIPHERAL VASCULAR DISEASE, UNSPECIFIED 11/02/2018 DINORA GREEN Ot J44.9 CHRONIC OBSTRUCTIVE PULMONARY DISEASE, U 11/02/2018 DINORA GREEN Ot M19.91 PRIMARY OSTEOARTHRITIS, UNSPECIFIED SITE 11/02/2018 DINORA GREEN Ot N18.4 CHRONIC KIDNEY DISEASE, STAGE 4 (SEVERE) 11/02/2018 DINORA GREEN Ot R91.1 SOLITARY PULMONARY NODULE 11/02/2018 DINORA GREEN Ot Z79.4 RATE QUOTING OPERATOR (CURRENT) USE OF INSULIN 11/02/2018 DINORA GREEN Ot Z79.82 PENITENTIARY (CURRENT) USE OF ASPIRIN 11/02/2018 DINORA GREEN Ot Z79.899 OTHER RATE QUOTING OPERATOR (CURRENT) DRUG THERAPY 11/08/2018 DINORA GREEN Ot D50.9 IRON DEFICIENCY ANEMIA, UNSPECIFIED 11/08/2018 DINORA GREEN N Ot D63.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 11/08/2018 DINORA GREEN Ot E03.9 HYPOTHYROIDISM, UNSPECIFIED 11/08/2018 DINORA GREEN N Ot 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 11/08/2018 DINORA GREEN N Ot E78.2 MIXED HYPERLIPIDEMIA 11/08/2018 DINORA GREEN N Ot G47.33 OBSTRUCTIVE SLEEP APNEA (ADULT) (PEDIATR 11/08/2018 DINORA GREEN N Ot 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 CHRONIC KIDNEY DISEASE W ST 11/08/2018 DINORA GREEN N Ot I25.10 ATHSCL HEART DISEASE OF [place] CORONARY 11/08/2018 DINORA GREEN Ot I27.20 PULMONARY HYPERTENSION, UNSPECIFIED 11/08/2018 DINORA GREEN N Ot I73.9 PERIPHERAL VASCULAR DISEASE, UNSPECIFIED 11/08/2018 DINORA GREEN N Ot J44.9 CHRONIC OBSTRUCTIVE PULMONARY DISEASE, U 11/08/2018 DINORA GREEN Ot M19.91 PRIMARY OSTEOARTHRITIS, UNSPECIFIED SITE 11/08/2018 DINORA GREEN N Ot N18.4 CHRONIC KIDNEY DISEASE, STAGE 4 (SEVERE) 11/08/2018 DINORA GREEN Ot R91.1 SOLITARY PULMONARY NODULE 11/08/2018 DINORA GREEN N Ot Z79.4 RATE QUOTING OPERATOR (CURRENT) USE OF INSULIN 11/08/2018 DINORA GREEN N Ot Z79.82 RATE QUOTING OPERATOR (CURRENT) USE OF ASPIRIN 11/08/2018 DINORA GREEN Ot Z79.899 OTHER PENITENTIARY (CURRENT) DRUG THERAPY 11/17/2018 DINORA GREEN N Ot D50.9 IRON DEFICIENCY ANEMIA, UNSPECIFIED 11/17/2018 DINORA GREEN N Ot D63.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 11/17/2018 DINORA GREEN Ot E03.9 HYPOTHYROIDISM, UNSPECIFIED 11/17/2018 DINORA GREEN N Ot 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 11/17/2018 DINORA GREEN N Ot E78.2 MIXED HYPERLIPIDEMIA 11/17/2018 DINORA GREEN N Ot G47.33 OBSTRUCTIVE SLEEP APNEA (ADULT) (PEDIATR 11/17/2018 DINORA GREEN N Ot 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 CHRONIC KIDNEY DISEASE W ST 11/17/2018 DINORA GREEN Ot I25.10 ATHSCL HEART DISEASE OF [place] CORONARY 11/17/2018 DINORA GREEN Ot I27.20 PULMONARY HYPERTENSION, UNSPECIFIED 11/17/2018 DINORA GREEN Ot I73.9 PERIPHERAL VASCULAR DISEASE, UNSPECIFIED 11/17/2018 DINORA GREEN Ot J44.9 CHRONIC OBSTRUCTIVE PULMONARY DISEASE, U 11/17/2018 DINORA GREEN Ot M19.91 PRIMARY OSTEOARTHRITIS, UNSPECIFIED SITE 11/17/2018 DINORA GREEN Ot N18.4 CHRONIC KIDNEY DISEASE, STAGE 4 (SEVERE) 11/17/2018 DINORA GREEN Ot R91.1 SOLITARY PULMONARY NODULE 11/17/2018 DINORA GREEN Ot Z79.4 PENITENTIARY (CURRENT) USE OF INSULIN 11/17/2018 DINORA GREEN Ot Z79.82 RATE QUOTING OPERATOR (CURRENT) USE OF ASPIRIN 11/17/2018 DINORA GREEN Ot Z79.899 OTHER PENITENTIARY (CURRENT) DRUG THERAPY 11/18/2018 DINORA GREEN Ot D50.9 IRON DEFICIENCY ANEMIA, UNSPECIFIED 11/18/2018 DINORA GREEN N Ot D63.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 11/18/2018 DINORA GREEN Ot E03.9 HYPOTHYROIDISM, UNSPECIFIED 11/18/2018 DINORA GREEN N Ot 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 11/18/2018 DINORA GREEN Ot E78.2 MIXED HYPERLIPIDEMIA 11/18/2018 DINORA GREEN Ot G47.33 OBSTRUCTIVE SLEEP APNEA (ADULT) (PEDIATR 11/18/2018 DINORA GREEN Ot 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 CHRONIC KIDNEY DISEASE W ST 11/18/2018 DINORA GREEN Ot I25.10 ATHSCL HEART DISEASE OF [place] CORONARY 11/18/2018 DINORA GREEN Ot I27.20 PULMONARY HYPERTENSION, UNSPECIFIED 11/18/2018 DINORA GREEN Ot I73.9 PERIPHERAL VASCULAR DISEASE, UNSPECIFIED 11/18/2018 DINORA GREEN Ot J44.9 CHRONIC OBSTRUCTIVE PULMONARY DISEASE, U 11/18/2018 DINORA GREEN Ot M19.91 PRIMARY OSTEOARTHRITIS, UNSPECIFIED SITE 11/18/2018 DINORA GREEN Ot N18.4 CHRONIC KIDNEY DISEASE, STAGE 4 (SEVERE) 11/18/2018 DINORA GREEN N Ot R91.1 SOLITARY PULMONARY NODULE 11/18/2018 DINORA GREEN Ot Z79.4 PENITENTIARY (CURRENT) USE OF INSULIN 11/18/2018 DINORA GREEN N Ot Z79.82 RATE QUOTING OPERATOR (CURRENT) USE OF ASPIRIN 11/18/2018 DINORA GREEN N Ot Z79.899 OTHER PENITENTIARY (CURRENT) DRUG THERAPY 12/15/2018 GALA TY, FELICITA Borges Ot E11.9 TYPE 2 DIABETES MELLITUS WITHOUT COMPLIC 12/25/2018 DINORA GREEN N Ot D50.9 IRON DEFICIENCY ANEMIA, UNSPECIFIED 12/25/2018 DINORA GREEN Ot D63.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 12/25/2018 DINORA GREEN Ot E03.9 HYPOTHYROIDISM, UNSPECIFIED 12/25/2018 DINORA GREEN N Ot 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 12/25/2018 DINORA GREEN Ot E78.2 MIXED HYPERLIPIDEMIA 12/25/2018 DINORA GREEN N Ot G47.33 OBSTRUCTIVE SLEEP APNEA (ADULT) (PEDIATR 12/25/2018 DINORA GREEN N Ot 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 CHRONIC KIDNEY DISEASE W ST 12/25/2018 DINORA GREEN N Ot I25.10 ATHSCL HEART DISEASE OF [place] CORONARY 12/25/2018 DINORA GREEN N Ot I27.20 PULMONARY HYPERTENSION, UNSPECIFIED 12/25/2018 DINORA GREEN N Ot I73.9 PERIPHERAL VASCULAR DISEASE, UNSPECIFIED 12/25/2018 DINORA GREEN N Ot J44.9 CHRONIC OBSTRUCTIVE PULMONARY DISEASE, U 12/25/2018 DINORA GREEN N Ot M19.91 PRIMARY OSTEOARTHRITIS, UNSPECIFIED SITE 12/25/2018 DINORA GREEN N Ot N18.4 CHRONIC KIDNEY DISEASE, STAGE 4 (SEVERE) 12/25/2018 DINORA GREEN Ot R91.1 SOLITARY PULMONARY NODULE 12/25/2018 DINORA GREEN N Ot Z79.4 RATE QUOTING OPERATOR (CURRENT) USE OF INSULIN 12/25/2018 DINORA GREEN N Ot Z79.82 PENITENTIARY (CURRENT) USE OF ASPIRIN 12/25/2018 DINORA GREEN N Ot Z79.899 OTHER PENITENTIARY (CURRENT) DRUG THERAPY 12/28/2018 DORINDA, MARIELLE L CASTING MACHINE SET UP OPERATOR Ot E03.9 HYPOTHYROIDISM, UNSPECIFIED 12/28/2018 DORINDA, MARIELLE L CASTING MACHINE SET UP OPERATOR Ot E11.8 TYPE 2 DIABETES MELLITUS WITH UNSPECIFIE 12/28/2018 DORINDA, MARIELLE L CASTING MACHINE SET UP OPERATOR Ot Z79.4 RATE QUOTING OPERATOR (CURRENT) USE OF INSULIN 01/01/2019 FELICITA CEDEÑO MD Ot E11.9 TYPE 2 DIABETES MELLITUS WITHOUT COMPLIC 01/18/2019 DORINDA MARIELLE L CASTING MACHINE SET UP OPERATOR Ot E03.9 HYPOTHYROIDISM, UNSPECIFIED 01/18/2019 DORINDA, MARIELLE L CASTING MACHINE SET UP OPERATOR Ot E11.8 TYPE 2 DIABETES MELLITUS WITH UNSPECIFIE 01/18/2019 DORINDA, MARIELLE L CASTING MACHINE SET UP OPERATOR Ot Z79.4 RATE QUOTING OPERATOR (CURRENT) USE OF INSULIN 02/04/2019 DINORA GREEN N Ot D50.9 IRON DEFICIENCY ANEMIA, UNSPECIFIED 02/04/2019 DINORA GREEN N Ot D63.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 02/04/2019 DINORA GREEN N Ot E03.9 HYPOTHYROIDISM, UNSPECIFIED 02/04/2019 DINORA GREEN N Ot 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 02/04/2019 DINORA GREEN N Ot E78.2 MIXED HYPERLIPIDEMIA 02/04/2019 DINORA GREEN N Ot G47.33 OBSTRUCTIVE SLEEP APNEA (ADULT) (PEDIATR 02/04/2019 DINORA GREEN N Ot 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 CHRONIC KIDNEY DISEASE W ST 02/04/2019 DINORA GREEN N Ot I25.10 ATHSCL HEART DISEASE OF [place] CORONARY 02/04/2019 DINORA GREEN N Ot I27.20 PULMONARY HYPERTENSION, UNSPECIFIED 02/04/2019 DINORA GREEN N Ot I73.9 PERIPHERAL VASCULAR DISEASE, UNSPECIFIED 02/04/2019 DINORA GREEN N Ot J44.9 CHRONIC OBSTRUCTIVE PULMONARY DISEASE, U 02/04/2019 DINORA GREEN N Ot M19.91 PRIMARY OSTEOARTHRITIS, UNSPECIFIED SITE 02/04/2019 DINORA GREEN N Ot N18.4 CHRONIC KIDNEY DISEASE, STAGE 4 (SEVERE) 02/04/2019 DINORA GREEN N Ot R91.1 SOLITARY PULMONARY NODULE 02/04/2019 DINORA GREEN N Ot Z79.4 PENITENTIARY (CURRENT) USE OF INSULIN 02/04/2019 DINORA GREEN N Ot Z79.82 RATE QUOTING OPERATOR (CURRENT) USE OF ASPIRIN 02/04/2019 DINORA GREEN N Ot Z79.899 OTHER RATE QUOTING OPERATOR (CURRENT) DRUG THERAPY 02/15/2019 DINOAR GREEN N Ot D50.9 IRON DEFICIENCY ANEMIA, UNSPECIFIED 02/15/2019 DINORA GREEN N Ot D63.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 02/15/2019 DINORA GREEN N Ot E03.9 HYPOTHYROIDISM, UNSPECIFIED 02/15/2019 DINORA GREEN N Ot 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 02/15/2019 DINORA GREEN N Ot E78.2 MIXED HYPERLIPIDEMIA 02/15/2019 DINORA GREEN N Ot G47.33 OBSTRUCTIVE SLEEP APNEA (ADULT) (PEDIATR 02/15/2019 DINORA GREEN N Ot 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 CHRONIC KIDNEY DISEASE W ST 02/15/2019 DINORA GREEN N Ot I25.10 ATHSCL HEART DISEASE OF [place] CORONARY 02/15/2019 DINORA GREEN N Ot I27.20 PULMONARY HYPERTENSION, UNSPECIFIED 02/15/2019 DINORA GREEN N Ot I73.9 PERIPHERAL VASCULAR DISEASE, UNSPECIFIED 02/15/2019 DINORA GREEN N Ot J44.9 CHRONIC OBSTRUCTIVE PULMONARY DISEASE, U 02/15/2019 DINORA GREEN Ot M19.91 PRIMARY OSTEOARTHRITIS, UNSPECIFIED SITE 02/15/2019 DINORA GREEN N Ot N18.4 CHRONIC KIDNEY DISEASE, STAGE 4 (SEVERE) 02/15/2019 DINORA GREEN Ot R91.1 SOLITARY PULMONARY NODULE 02/15/2019 DINORA GREEN Ot Z79.4 PENITENTIARY (CURRENT) USE OF INSULIN 02/15/2019 DINORA GREEN N Ot Z79.82 RATE QUOTING OPERATOR (CURRENT) USE OF ASPIRIN 02/15/2019 DINORA GREEN N Ot Z79.899 OTHER PENITENTIARY (CURRENT) DRUG THERAPY 02/16/2019 DINORA GREEN N Ot D50.9 IRON DEFICIENCY ANEMIA, UNSPECIFIED 02/16/2019 DINORA GREEN N Ot D63.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 02/16/2019 DINORA GREEN N Ot E03.9 HYPOTHYROIDISM, UNSPECIFIED 02/16/2019 DINORA GREEN N Ot 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 02/16/2019 NORMA JOSIERACHELLE Casi Ot E78.2 MIXED HYPERLIPIDEMIA 02/16/2019 NORMADINORA Ot G47.33 OBSTRUCTIVE SLEEP APNEA (ADULT) (PEDIATR 02/16/2019 NORMA JOSIERACHELLE Casi Ot 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 CHRONIC KIDNEY DISEASE W ST 02/16/2019 NORMA DINORA Lance Ot I25.10 ATHSCL HEART DISEASE OF [place] CORONARY 02/16/2019 NORMADINORA Ot I27.20 PULMONARY HYPERTENSION, UNSPECIFIED 02/16/2019 NORMADINORA N Ot I73.9 PERIPHERAL VASCULAR DISEASE, UNSPECIFIED 02/16/2019 NORMADINORA Ot J44.9 CHRONIC OBSTRUCTIVE PULMONARY DISEASE, U 02/16/2019 NORMADINORA Ot M19.91 PRIMARY OSTEOARTHRITIS, UNSPECIFIED SITE 02/16/2019 NORMAJOSIERACHELLE Casi Ot N18.4 CHRONIC KIDNEY DISEASE, STAGE 4 (SEVERE) 02/16/2019 NORMADINORA Ot R91.1 SOLITARY PULMONARY NODULE 02/16/2019 NORMAJOSIERACHELLE Casi Ot Z79.4 PENITENTIARY (CURRENT) USE OF INSULIN 02/16/2019 NORMADINORA N Ot Z79.82 PENITENTIARY (CURRENT) USE OF ASPIRIN 02/16/2019 NORMADINORA Ot Z79.899 OTHER PENITENTIARY (CURRENT) DRUG THERAPY 03/29/2019 MIRTA TORRES APRN Ot M19.031 PRIMARY OSTEOARTHRITIS, RIGHT WRIST 03/29/2019 MIRTA TORRES APRN Ot M21.931 UNSPECIFIED ACQUIRED DEFORMITY OF RIGHT 03/29/2019 MIRTA TORRES APRN Ot M89.8X8 OTHER SPECIFIED DISORDERS OF BONE, OTHER 03/29/2019 MIRTA TORRES APRN Ot W19.XXXA UNSPECIFIED FALL, INITIAL ENCOUNTER 03/29/2019 MIRTA TORRES APRN Ot Y92.009 [facility] PLACE IN [facility] NON-INSTITUT (PRIVATE 04/02/2019 OTIS TY, MARCIA Garza Ot E03. 9 HYPOTHYROIDISM, UNSPECIFIED 04/02/2019 OTIS TY, MARCIA Garza Ot E11. 9 TYPE 2 DIABETES MELLITUS WITHOUT COMPLIC 04/02/2019 OTIS TY, MARCIA Garza Ot E78. 00 PURE HYPERCHOLESTEROLEMIA, UNSPECIFIED 04/02/2019 OTIS TY, MARCIA Garza Ot F03. 90 UNSPECIFIED DEMENTIA WITHOUT BEHAVIORAL 04/02/2019 OTIS TY, MARCIA Garza Ot F32. 9 MAJOR DEPRESSIVE DISORDER, SINGLE EPISOD 04/02/2019 OTIS TY, MARCIA Garza Ot F41. 9 ANXIETY DISORDER, UNSPECIFIED 04/02/2019 OTIS TY, MARCIA Garza Ot G47. 30 SLEEP APNEA, UNSPECIFIED 04/02/2019 OTIS TY, MARCIA Garza Ot I10 ESSENTIAL (PRIMARY) HYPERTENSION 04/02/2019 OTIS TY, MARCIA Garza Ot I25. 10 ATHSCL HEART DISEASE OF [place] CORONARY 04/02/2019 OTIS TY, MARCIA Garza Ot K21. 9 GASTRO-ESOPHAGEAL REFLUX DISEASE WITHOUT 04/02/2019 OTIS TY, MARCIA Garza Ot M19.071 PRIMARY OSTEOARTHRITIS, RIGHT ANKLE AND 04/02/2019 OTIS TY, MARCIA Garza Ot M25.571 PAIN IN RIGHT ANKLE AND JOINTS OF RIGHT 04/02/2019 OTIS TY, MARCIA Garza Ot Z79. 4 RATE QUOTING OPERATOR (CURRENT) USE OF INSULIN 04/02/2019 OTIS TY, MARCIA Garza Ot Z82. 49 FAMILY HX OF ISCHEM HEART DIS AND OTH DI 04/02/2019 OTIS TY, MARCIA Garza Ot Z86.010 PERSONAL HISTORY OF COLONIC POLYPS 04/02/2019 OTIS TY, MARCIA Garza Ot Z88. 0 ALLERGY STATUS TO PENICILLIN 04/02/2019 OTIS TY, MARCIA Garza Ot Z88. 7 ALLERGY STATUS TO SERUM AND VACCINE STAT 04/02/2019 MARCIA BERG MD Ot Z89.512 ACQUIRED ABSENCE OF LEFT LEG BELOW KNEE 04/02/2019 MARCIA BERG MD Ot Z90. 49 ACQUIRED ABSENCE OF OTHER SPECIFIED PART 04/02/2019 MARCIA BERG MD Ot Z90.710 ACQUIRED ABSENCE OF BOTH CERVIX AND UTER 04/02/2019 MARCIA BERG MD Ot Z96.6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, BILAT 04/02/2019 MARCIA BERG MD Ot Z99. 81 DEPENDENCE ON SUPPLEMENTAL OXYGEN 04/06/2019 MARCIA BERG MD Ot E03. 9 HYPOTHYROIDISM, UNSPECIFIED 04/06/2019 OTIS TY, MARCIA Garza Ot E11. 9 TYPE 2 DIABETES MELLITUS WITHOUT COMPLIC 04/06/2019 OTIS TY, MARCIA Garza Ot E78. 00 PURE HYPERCHOLESTEROLEMIA, UNSPECIFIED 04/06/2019 OTIS TY, MARCIA Garza Ot F03. 90 UNSPECIFIED DEMENTIA WITHOUT BEHAVIORAL 04/06/2019 OTIS TY, MARCIA Garza Ot F32. 9 MAJOR DEPRESSIVE DISORDER, SINGLE EPISOD 04/06/2019 OTIS TY, MARCIA Garza Ot F41. 9 ANXIETY DISORDER, UNSPECIFIED 04/06/2019 OTIS TY, MARCIA Garza Ot G47. 30 SLEEP APNEA, UNSPECIFIED 04/06/2019 OTIS TY, MARCIA Garza Ot I10 ESSENTIAL (PRIMARY) HYPERTENSION 04/06/2019 OTIS TY, MARCIA Garza Ot I25. 10 ATHSCL HEART DISEASE OF [place] CORONARY 04/06/2019 OTIS TY, MARCIA Garza Ot K21. 9 GASTRO-ESOPHAGEAL REFLUX DISEASE WITHOUT 04/06/2019 OTIS TY, MARCIA Garza Ot M19.071 PRIMARY OSTEOARTHRITIS, RIGHT ANKLE AND 04/06/2019 OTIS TY, MARCIA Garza Ot M25.571 PAIN IN RIGHT ANKLE AND JOINTS OF RIGHT 04/06/2019 OTIS TY, MARCIA Garza Ot Z79. 4 PENITENTIARY (CURRENT) USE OF INSULIN 04/06/2019 OTIS TY, MARCIA Garza Ot Z82. 49 FAMILY HX OF ISCHEM HEART DIS AND OTH DI 04/06/2019 OTIS TY, MARCIA Garza Ot Z86.010 PERSONAL HISTORY OF COLONIC POLYPS 04/06/2019 OTIS TY, MARCIA Garza Ot Z88. 0 ALLERGY STATUS TO PENICILLIN 04/06/2019 OTIS TY, MARCIA Garza Ot Z88. 7 ALLERGY STATUS TO SERUM AND VACCINE STAT 04/06/2019 OTIS TY, MARCIA Garza Ot Z89.512 ACQUIRED ABSENCE OF LEFT LEG BELOW KNEE 04/06/2019 OTIS TY, MRACIA Garza Ot Z90. 49 ACQUIRED ABSENCE OF OTHER SPECIFIED PART 04/06/2019 MARCIA BERG MD Ot Z90.710 ACQUIRED ABSENCE OF BOTH CERVIX AND UTER 04/06/2019 OTIS TY, MARCIA Garza Ot Z96.6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, BILAT 04/06/2019 OTIS TY, MARCIA Garza Ot Z99. 81 DEPENDENCE ON SUPPLEMENTAL OXYGEN 04/06/2019 DINORA GREEN Ot D50.9 IRON DEFICIENCY ANEMIA, UNSPECIFIED 04/06/2019 DINORA GREEN Ot D63.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 04/06/2019 DINORA GREEN N Ot E03.9 HYPOTHYROIDISM, UNSPECIFIED 04/06/2019 DINORA GREEN N Ot 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 04/06/2019 DINORA GREEN N Ot E78.2 MIXED HYPERLIPIDEMIA 04/06/2019 DINORA GREEN N Ot G47.33 OBSTRUCTIVE SLEEP APNEA (ADULT) (PEDIATR 04/06/2019 DINORA GREEN N Ot 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 CHRONIC KIDNEY DISEASE W ST 04/06/2019 DINORA GREEN N Ot I25.10 ATHSCL HEART DISEASE OF [place] CORONARY 04/06/2019 DINORA GREEN N Ot I27.20 PULMONARY HYPERTENSION, UNSPECIFIED 04/06/2019 DINORA GREEN N Ot I73.9 PERIPHERAL VASCULAR DISEASE, UNSPECIFIED 04/06/2019 DINORA GREEN N Ot J44.9 CHRONIC OBSTRUCTIVE PULMONARY DISEASE, U 04/06/2019 DINORA GREEN N Ot M19.91 PRIMARY OSTEOARTHRITIS, UNSPECIFIED SITE 04/06/2019 DINORA GREEN N Ot N18.4 CHRONIC KIDNEY DISEASE, STAGE 4 (SEVERE) 04/06/2019 DINORA GREEN N Ot R91.1 SOLITARY PULMONARY NODULE 04/06/2019 DINORA GREEN N Ot Z79.4 PENITENTIARY (CURRENT) USE OF INSULIN 04/06/2019 DINORA GREEN N Ot Z79.82 RATE QUOTING OPERATOR (CURRENT) USE OF ASPIRIN 04/06/2019 DINORA GREEN N Ot Z79.899 OTHER RATE QUOTING OPERATOR (CURRENT) DRUG THERAPY 04/07/2019 GALA TY, FELICITA Borges Ot R05 COUGH 04/07/2019 FELICITA CEDEÑO MD Ot R53.1 WEAKNESS 04/08/2019 OTIS TY, MARCIA Garza Ot E03. 9 HYPOTHYROIDISM, UNSPECIFIED 04/08/2019 OTIS TY, MARCIA Garza Ot E11. 9 TYPE 2 DIABETES MELLITUS WITHOUT COMPLIC 04/08/2019 OTIS TY, MARCIA Garza Ot E78. 00 PURE HYPERCHOLESTEROLEMIA, UNSPECIFIED 04/08/2019 OTIS TY, MARCIA Garza Ot F03. 90 UNSPECIFIED DEMENTIA WITHOUT BEHAVIORAL 04/08/2019 OTIS TY, MARCIA Garza Ot F32. 9 MAJOR DEPRESSIVE DISORDER, SINGLE EPISOD 04/08/2019 OTIS TY, MARCIA Garza Ot F41. 9 ANXIETY DISORDER, UNSPECIFIED 04/08/2019 MARCIA BERG MD Ot G47. 30 SLEEP APNEA, UNSPECIFIED 04/08/2019 MARCIA BERG MD Ot I10 ESSENTIAL (PRIMARY) HYPERTENSION 04/08/2019 MARCIA BERG MD Ot I25. 10 ATHSCL HEART DISEASE OF [place] CORONARY 04/08/2019 MARCIA BERG MD Ot K21. 9 GASTRO-ESOPHAGEAL REFLUX DISEASE WITHOUT 04/08/2019 MARCIA BERG MD Ot M19.071 PRIMARY OSTEOARTHRITIS, RIGHT ANKLE AND 04/08/2019 MARCIA BERG MD Ot M25.571 PAIN IN RIGHT ANKLE AND JOINTS OF RIGHT 04/08/2019 MARCIA BERG MD Ot Z79. 4 RATE QUOTING OPERATOR (CURRENT) USE OF INSULIN 04/08/2019 MARCIA BERG MD Ot Z82. 49 FAMILY HX OF ISCHEM HEART DIS AND OTH DI 04/08/2019 MARCIA BERG MD Ot Z86.010 PERSONAL HISTORY OF COLONIC POLYPS 04/08/2019 MARCIA BERG MD Ot Z88. 0 ALLERGY STATUS TO PENICILLIN 04/08/2019 MARCIA BERG MD Ot Z88. 7 ALLERGY STATUS TO SERUM AND VACCINE STAT 04/08/2019 MARCIA BERG MD Ot Z89.512 ACQUIRED ABSENCE OF LEFT LEG BELOW KNEE 04/08/2019 MARCIA BERG MD Ot Z90. 49 ACQUIRED ABSENCE OF OTHER SPECIFIED PART 04/08/2019 MARCIA BERG MD Ot Z90.710 ACQUIRED ABSENCE OF BOTH CERVIX AND UTER 04/08/2019 MARCIA BERG MD Ot Z96.6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, BILAT 04/08/2019 MARCIA BERG MD Ot Z99. 81 DEPENDENCE ON SUPPLEMENTAL OXYGEN 04/12/2019 DINORA GREEN Ot D50.9 IRON DEFICIENCY ANEMIA, UNSPECIFIED 04/12/2019 DINORA GREEN Ot D63.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 04/12/2019 DINORA GREEN Ot E03.9 HYPOTHYROIDISM, UNSPECIFIED 04/12/2019 DINORA GREEN Ot 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 04/12/2019 DINORA GREEN Ot E78.2 MIXED HYPERLIPIDEMIA 04/12/2019 DINORA GREEN Ot G47.33 OBSTRUCTIVE SLEEP APNEA (ADULT) (PEDIATR 04/12/2019 NORMA JOSIERACHELLE Casi Ot 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 CHRONIC KIDNEY DISEASE W ST 04/12/2019 DINORA GREEN Casi Ot I25.10 ATHSCL HEART DISEASE OF [place] CORONARY 04/12/2019 NORMA JOSIERACHELLE Casi Ot I27.20 PULMONARY HYPERTENSION, UNSPECIFIED 04/12/2019 NORMA JOSIERACHELLE Casi Ot I73.9 PERIPHERAL VASCULAR DISEASE, UNSPECIFIED 04/12/2019 NORMA DINORA Lance Ot J44.9 CHRONIC OBSTRUCTIVE PULMONARY DISEASE, U 04/12/2019 NORMA DINORA Lance Ot M19.91 PRIMARY OSTEOARTHRITIS, UNSPECIFIED SITE 04/12/2019 NORMA JOSIERACHELLE Casi Ot N18.4 CHRONIC KIDNEY DISEASE, STAGE 4 (SEVERE) 04/12/2019 NORMA DINORA Lance Ot R91.1 SOLITARY PULMONARY NODULE 04/12/2019 NORMAJOSIERACHELLE Casi Ot Z79.4 PENITENTIARY (CURRENT) USE OF INSULIN 04/12/2019 NORMADINORA Ot Z79.82 PENITENTIARY (CURRENT) USE OF ASPIRIN 04/12/2019 NORMADINORA Ot Z79.899 OTHER PENITENTIARY (CURRENT) DRUG THERAPY 04/13/2019 DIONISIO BOWEN CASTING MACHINE SET UP OPERATOR Ot M79.604 PAIN IN RIGHT LEG 04/13/2019 DIONISIO BOWEN CASTING MACHINE SET UP OPERATOR Ot M79.89 OTHER SPECIFIED SOFT TISSUE DISORDERS 04/15/2019 MIRTA TORRES CASTING MACHINE SET UP OPERATOR Ot M19.031 PRIMARY OSTEOARTHRITIS, RIGHT WRIST 04/15/2019 MIRTA TORRES CASTING MACHINE SET UP OPERATOR Ot M21.931 UNSPECIFIED ACQUIRED DEFORMITY OF RIGHT 04/15/2019 MIRTA TORRES CASTING MACHINE SET UP OPERATOR Ot M89.8X8 OTHER SPECIFIED DISORDERS OF BONE, OTHER 04/15/2019 MIRTA TORRES CASTING MACHINE SET UP OPERATOR Ot W19.XXXA UNSPECIFIED FALL, INITIAL ENCOUNTER 04/15/2019 MIRTA TORRES APRN Ot Y92.[address] [facility] (PRIVATE 04/28/2019 DIONISIO BOWEN CASTING MACHINE SET UP OPERATOR Ot M79.604 PAIN IN RIGHT LEG 04/28/2019 DIONISIO BOWEN CASTING MACHINE SET UP OPERATOR Ot M79.89 OTHER SPECIFIED SOFT TISSUE DISORDERS 04/29/2019 FELICITA CEDEÑO MD Ot R05 COUGH 04/29/2019 FELICITA CEDEÑO MD Ot R53.1 WEAKNESS 05/17/2019 DINORA GREEN N Ot D50.9 IRON DEFICIENCY ANEMIA, UNSPECIFIED 05/17/2019 DINORA GREEN N Ot D63.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 05/17/2019 DINORA GREEN N Ot E03.9 HYPOTHYROIDISM, UNSPECIFIED 05/17/2019 DINORA GREEN N Ot 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 05/17/2019 DINORA GREEN N Ot E78.2 MIXED HYPERLIPIDEMIA 05/17/2019 DINORA GREEN N Ot G47.33 OBSTRUCTIVE SLEEP APNEA (ADULT) (PEDIATR 05/17/2019 DINORA GREEN N Ot 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 CHRONIC KIDNEY DISEASE W ST 05/17/2019 DINORA GREEN N Ot I25.10 ATHSCL HEART DISEASE OF [place] CORONARY 05/17/2019 DINORA GREEN N Ot I27.20 PULMONARY HYPERTENSION, UNSPECIFIED 05/17/2019 DINORA GREEN N Ot I73.9 PERIPHERAL VASCULAR DISEASE, UNSPECIFIED 05/17/2019 DINORA GREEN N Ot J44.9 CHRONIC OBSTRUCTIVE PULMONARY DISEASE, U 05/17/2019 DINORA GREEN N Ot M19.91 PRIMARY OSTEOARTHRITIS, UNSPECIFIED SITE 05/17/2019 DINORA GREEN N Ot N18.4 CHRONIC KIDNEY DISEASE, STAGE 4 (SEVERE) 05/17/2019 DINORA GREEN N Ot R91.1 SOLITARY PULMONARY NODULE 05/17/2019 DINORA GREEN N Ot Z79.4 PENITENTIARY (CURRENT) USE OF INSULIN 05/17/2019 DINORA GREEN N Ot Z79.82 PENITENTIARY (CURRENT) USE OF ASPIRIN 05/17/2019 DINORA GREEN N Ot Z79.899 OTHER PENITENTIARY (CURRENT) DRUG THERAPY 06/04/2019 DINORA GREEN N Ot D50.9 IRON DEFICIENCY ANEMIA, UNSPECIFIED 06/04/2019 DINORA GREEN N Ot D63.1 ANEMIA IN CHRONIC KIDNEY DISEASE 06/04/2019 DINORA GREEN N Ot E03.9 HYPOTHYROIDISM, UNSPECIFIED 06/04/2019 DINORA GREEN N Ot 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 06/04/2019 DINORA GREEN N Ot E78.2 MIXED HYPERLIPIDEMIA 06/04/2019 DINORA GREEN N Ot G47.33 OBSTRUCTIVE SLEEP APNEA (ADULT) (PEDIATR 06/04/2019 DINORA GREEN N Ot 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 CHRONIC KIDNEY DISEASE W ST 06/04/2019 DINORA GREEN Ot I25.10 ATHSCL HEART DISEASE OF [place] CORONARY 06/04/2019 DINORA GREEN N Ot I27.20 PULMONARY HYPERTENSION, UNSPECIFIED 06/04/2019 DINORA GREEN N Ot I73.9 PERIPHERAL VASCULAR DISEASE, UNSPECIFIED 06/04/2019 DINORA GREEN Ot J44.9 CHRONIC OBSTRUCTIVE PULMONARY DISEASE, U 06/04/2019 DINORA GREEN N Ot M19.91 PRIMARY OSTEOARTHRITIS, UNSPECIFIED SITE 06/04/2019 DINORA GREEN N Ot N18.4 CHRONIC KIDNEY DISEASE, STAGE 4 (SEVERE) 06/04/2019 DINORA GREEN Ot R91.1 SOLITARY PULMONARY NODULE 06/04/2019 DINORA GREEN N Ot Z79.4 PENITENTIARY (CURRENT) USE OF INSULIN 06/04/2019 DINORA GREEN N Ot Z79.82 PENITENTIARY (CURRENT) USE OF ASPIRIN 06/04/2019 DINORA GREEN N Ot Z79.899 OTHER RATE QUOTING OPERATOR (CURRENT) DRUG THERAPY 06/22/2019 DINORA GREEN N Ot D50.9 IRON DEFICIENCY ANEMIA, UNSPECIFIED 06/22/2019 DINORA GREEN N Ot D63.1 ANEMIA IN CHRONIC KIDNEY DISEASE 06/22/2019 DINORA GREEN N Ot E03.9 HYPOTHYROIDISM, UNSPECIFIED 06/22/2019 DINORA GREEN N Ot 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 06/22/2019 DINORA GREEN N Ot E78.2 MIXED HYPERLIPIDEMIA 06/22/2019 DINORA GREEN N Ot G47.33 OBSTRUCTIVE SLEEP APNEA (ADULT) (PEDIATR 06/22/2019 DINORA GREEN N Ot 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 CHRONIC KIDNEY DISEASE W ST 06/22/2019 DINORA GREEN N Ot I25.10 ATHSCL HEART DISEASE OF [place] CORONARY 06/22/2019 DINORA GREEN N Ot I27.20 PULMONARY HYPERTENSION, UNSPECIFIED 06/22/2019 DINORA GREEN N Ot I73.9 PERIPHERAL VASCULAR DISEASE, UNSPECIFIED 06/22/2019 DINORA GREEN Ot J44.9 CHRONIC OBSTRUCTIVE PULMONARY DISEASE, U 06/22/2019 DINORA GREEN Ot M19.91 PRIMARY OSTEOARTHRITIS, UNSPECIFIED SITE 06/22/2019 DINORA GREEN Ot N18.4 CHRONIC KIDNEY DISEASE, STAGE 4 (SEVERE) 06/22/2019 DINORA GREEN Ot R91.1 SOLITARY PULMONARY NODULE 06/22/2019 DINORA GREEN Ot Z79.4 PENITENTIARY (CURRENT) USE OF INSULIN 06/22/2019 DINORA GREEN N Ot Z79.82 RATE QUOTING OPERATOR (CURRENT) USE OF ASPIRIN 06/22/2019 DINORA GREEN Ot Z79.899 OTHER PENITENTIARY (CURRENT) DRUG THERAPY 08/23/2019 DINORA GREEN N Ot D50.9 IRON DEFICIENCY ANEMIA, UNSPECIFIED 08/23/2019 DINORA GREEN Ot D63.1 ANEMIA IN CHRONIC KIDNEY DISEASE 08/23/2019 DINORA GREEN Ot E03.9 HYPOTHYROIDISM, UNSPECIFIED 08/23/2019 DINORA GREEN N Ot 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 08/23/2019 DINORA GREEN Ot E78.2 MIXED HYPERLIPIDEMIA 08/23/2019 DINORA GREEN Ot G47.33 OBSTRUCTIVE SLEEP APNEA (ADULT) (PEDIATR 08/23/2019 DINORA GREEN N Ot 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 CHRONIC KIDNEY DISEASE W ST 08/23/2019 DINORA GREEN Ot I25.10 ATHSCL HEART DISEASE OF [place] CORONARY 08/23/2019 DINORA GREEN Ot I27.20 PULMONARY HYPERTENSION, UNSPECIFIED 08/23/2019 DINORA GREEN Ot I73.9 PERIPHERAL VASCULAR DISEASE, UNSPECIFIED 08/23/2019 DINORA GREEN Ot J44.9 CHRONIC OBSTRUCTIVE PULMONARY DISEASE, U 08/23/2019 DINORA GREEN Ot M19.91 PRIMARY OSTEOARTHRITIS, UNSPECIFIED SITE 08/23/2019 DINORA GREEN Ot N18.4 CHRONIC KIDNEY DISEASE, STAGE 4 (SEVERE) 08/23/2019 DINORA GREEN Ot R91.1 SOLITARY PULMONARY NODULE 08/23/2019 DINORA GREEN Ot Z79.4 RATE QUOTING OPERATOR (CURRENT) USE OF INSULIN 08/23/2019 DINORA GREEN Ot Z79.82 PENITENTIARY (CURRENT) USE OF ASPIRIN 08/23/2019 DINORA GREEN Ot Z79.899 OTHER PENITENTIARY (CURRENT) DRUG THERAPY 08/24/2019 DINORA GREEN Ot D50.9 IRON DEFICIENCY ANEMIA, UNSPECIFIED 08/24/2019 DINORA GREEN Ot D63.1 ANEMIA IN CHRONIC KIDNEY DISEASE 08/24/2019 DINORA GREEN Ot E03.9 HYPOTHYROIDISM, UNSPECIFIED 08/24/2019 DINORA GREEN N Ot 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 08/24/2019 DINORA GREEN Ot E78.2 MIXED HYPERLIPIDEMIA 08/24/2019 DINORA GREEN Ot G47.33 OBSTRUCTIVE SLEEP APNEA (ADULT) (PEDIATR 08/24/2019 DINORA GREEN Ot 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 CHRONIC KIDNEY DISEASE W ST 08/24/2019 DINORA GREEN Ot I25.10 ATHSCL HEART DISEASE OF [place] CORONARY 08/24/2019 DINORA GREEN Ot I27.20 PULMONARY HYPERTENSION, UNSPECIFIED 08/24/2019 DINORA GREEN Ot I73.9 PERIPHERAL VASCULAR DISEASE, UNSPECIFIED 08/24/2019 DINORA GREEN Ot J44.9 CHRONIC OBSTRUCTIVE PULMONARY DISEASE, U 08/24/2019 DINORA GREEN Ot M19.91 PRIMARY OSTEOARTHRITIS, UNSPECIFIED SITE 08/24/2019 DINORA GREEN Ot N18.4 CHRONIC KIDNEY DISEASE, STAGE 4 (SEVERE) 08/24/2019 DINORA GREEN Ot R91.1 SOLITARY PULMONARY NODULE 08/24/2019 DINORA GREEN Ot Z79.4 RATE QUOTING OPERATOR (CURRENT) USE OF INSULIN 08/24/2019 DINORA GREEN Ot Z79.82 PENITENTIARY (CURRENT) USE OF ASPIRIN 08/24/2019 DINORA GREEN Ot Z79.899 OTHER RATE QUOTING OPERATOR (CURRENT) DRUG THERAPY 08/29/2019 DINORA GREEN Ot D50.9 IRON DEFICIENCY ANEMIA, UNSPECIFIED 08/29/2019 DINORA GREEN Ot D63.1 ANEMIA IN CHRONIC KIDNEY DISEASE 08/29/2019 DINORA GREEN Ot E03.9 HYPOTHYROIDISM, UNSPECIFIED 08/29/2019 DINORA GREEN N Ot 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 08/29/2019 DINORA GREEN Ot E78.2 MIXED HYPERLIPIDEMIA 08/29/2019 DINORA GREEN Ot G47.33 OBSTRUCTIVE SLEEP APNEA (ADULT) (PEDIATR 08/29/2019 DINORA GREEN Ot 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 CHRONIC KIDNEY DISEASE W ST 08/29/2019 DINORA GREEN Ot I25.10 ATHSCL HEART DISEASE OF [place] CORONARY 08/29/2019 DINORA GREEN Ot I27.20 PULMONARY HYPERTENSION, UNSPECIFIED 08/29/2019 DINORA GREEN Ot I73.9 PERIPHERAL VASCULAR DISEASE, UNSPECIFIED 08/29/2019 DINORA GREEN Ot J44.9 CHRONIC OBSTRUCTIVE PULMONARY DISEASE, U 08/29/2019 DINORA GREEN Ot M19.91 PRIMARY OSTEOARTHRITIS, UNSPECIFIED SITE 08/29/2019 DINORA GREEN Ot N18.4 CHRONIC KIDNEY DISEASE, STAGE 4 (SEVERE) 08/29/2019 DINORA GREEN Ot R91.1 SOLITARY PULMONARY NODULE 08/29/2019 DINORA GREEN Ot Z79.4 PENITENTIARY (CURRENT) USE OF INSULIN 08/29/2019 DINORA GREEN Ot Z79.82 PENITENTIARY (CURRENT) USE OF ASPIRIN 08/29/2019 DINORA GREEN Ot Z79.899 OTHER RATE QUOTING OPERATOR (CURRENT) DRUG THERAPY 09/09/2019 DINORA GREEN Ot D50.9 IRON DEFICIENCY ANEMIA, UNSPECIFIED 09/14/2019 MIRTA TORRES CASTING MACHINE SET UP OPERATOR Ot J18.9 PNEUMONIA, UNSPECIFIED ORGANISM 09/21/2019 MIRTA TORRES CASTING MACHINE SET UP OPERATOR Ot J18.9 PNEUMONIA, UNSPECIFIED ORGANISM 10/06/2019 MIRTA TORRES CASTING MACHINE SET UP OPERATOR Ot J18.9 PNEUMONIA, UNSPECIFIED ORGANISM 11/18/2019 DINORA GREEN Ot D50.9 IRON DEFICIENCY ANEMIA, UNSPECIFIED 11/29/2019 DINORA GREEN Ot D50.9 IRON DEFICIENCY ANEMIA, UNSPECIFIED 12/03/2019 DINORA GREEN Ot D50.9 IRON DEFICIENCY ANEMIA, UNSPECIFIED 12/03/2019 DINORA GREEN Ot D63.1 ANEMIA IN CHRONIC KIDNEY DISEASE 12/03/2019 DINORA GREEN Ot N18.4 CHRONIC KIDNEY DISEASE, STAGE 4 (SEVERE) Procedures Code Description Performed By Per fran On 37.22 09/04/2012 88.53 09/04/2012 88.56 09/04/2012 [id number] IN SERTION OF RING EXT FIX INTO L TIBIA, 10/29/2017 [id number] FU CHARITO OF L TARSOMETATARS JT WITH INT FI 10/29/2017 [id number] FL UOROSCOPY OF AORTA, BI LE ART USING L 04/25/2018 [id number] DE TACHMENT AT LEFT LOWER LEG, HIGH, OPEN 05/19/2018 Results Test Result Range Bacterial urine culture - 02/29/16 18:35 Bacterial urine culture [id number] NRG COLONY COUNT >100,000/ML NRG FTX;REPORTABLE SENSITIVITY REPORTED 03/03/16 11:45 NRG URINE CULTURE RESULTS <10,000/ML NRG Bacterial susceptibility panel - 6 18:35 Gentamicin susceptibility test by minimum inhibitory c oncentration <= NRG Trimethoprim/sulfamethoxazole susceptibi lity test by minimum inhibitoryconcentration <= NRG Ampicillin susceptibility test by minimum inhibitory c oncentration 8 NRG Tobramycin susceptibility test by minimum inhibitory c oncentration <= NRG Cefazolin susceptibility test by minimum inhibitory co ncentration <= NRG Ceftriaxone susceptibility test by minimum inhibitory concentration <= NRG Ampicillin/sulbactam susceptibility test by minimum inhibitory concentration 4 NRG Piperacillin/tazobactam susceptibility t est by minimum inhibitory concentration <= NRG Ciprofloxacin susceptibility test by minimum inhibitor y concentration <= NRG Meropenem susceptibility test by minimum inhibitory co ncentration <= NRG Nitrofurantoin susceptibility test by mi nimum inhibitory concentration <= NRG Aztreonam susceptibility test by minimum inhibitory co ncentration <= NRG Extended spectrum beta lactamase (ESBL) producing bacteria susceptibility test by minimum inhibitory concentration - NRG Clostridium difficile detection - 20:30 C DIFF MOLECULAR RESULT Negative for toxigen ic C diff by DNA amplification NRG Whole blood basic metabolic panel - 02/25 08/12 11:13 Serum or plasma sodium measurement (moles/volume) 124 mmol/L 135-145 Serum or plasma potassium measurement (moles/volume) 4.9 mmol/L 3.6-5.0 Serum or plasma chloride measurement (moles/volume) 98 mmol/L 98-107 Carbon dioxide 17 mmol/L 21-32 Serum or plasma anion gap determination (moles/volume) 9 mmol/L 5-14 Serum or plasma urea nitrogen measurement (mass/volume ) 15 mg/dL 7-18 Serum or plasma creatinine measurement (mass/volume) 1.26 mg/dL 0.60-1.30 Serum or plasma urea nitrogen/creatinine mass ratio 12 NRG Serum or plasma creatinine measurement w ith calculation of estimated glomerular filtration rate 41 NRG Serum or plasma glucose measurement (mass/volume) 147 mg/dL 70-105 Serum or plasma calcium measurement (mass/volume) 10.1 mg/dL 8.5-10.1 THYROID STIMULATING HORMONE - 03/07/16 1 1:13 THYROID STIMULATING HORMONE 0.18 u[iU]/mL 0.35-4.94 Serum or plasma thyroxine (T4) free christie urement (mass/volume) - 03/07/16 11:13 Serum or plasma thyroxine (T4) free measurement (mass/ volume) 1.17 ng/dL 0.70-1.48 Whole blood basic metabolic panel - 02/26 12/10 12:07 Serum or plasma sodium measurement (moles/volume) 137 mmol/L 135-145 Serum or plasma potassium measurement (moles/volume) 4.3 mmol/L 3.6-5.0 Serum or plasma chloride measurement (moles/volume) 106 mmol/L 98-107 Carbon dioxide 20 mmol/L 21-32 Serum or plasma anion gap determination (moles/volume) 11 mmol/L 5-14 Serum or plasma urea nitrogen measurement (mass/volume ) 20 mg/dL 7-18 Serum or plasma creatinine measurement (mass/volume) 1.28 mg/dL 0.60-1.30 Serum or plasma urea nitrogen/creatinine mass ratio 16 NRG Serum or plasma creatinine measurement w ith calculation of estimated glomerular filtration rate 40 [...] 5-14 Serum or plasma urea nitrogen measurement (mass/volume ) 17 mg/dL 7-18 Serum or plasma creatinine measurement (mass/volume) 1.50 mg/dL 0.60-1.30 Serum or plasma urea nitrogen/creatinine mass ratio 11 NRG Serum or plasma creatinine measurement w ith calculation of estimated glomerular filtration rate 33 NRG Serum or plasma glucose measurement (mass/volume) 264 mg/dL 70-105 Serum or plasma calcium measurement (mass/volume) 9.4 mg/dL 8.5-10.1 Serum or plasma total bilirubin measurement (mass/volu me) 0.6 mg/dL 0.1-1.0 Serum or plasma alkaline phosphatase josie surement (enzymatic activity/volume) 163 U/L 40-136 Serum or plasma aspartate aminotransfera se measurement (enzymatic activity/volume) 23 U/L 5-34 Serum or plasma alanine aminotransferase measurement (enzymatic activity/volume) 29 U/L 0-55 Serum or plasma protein measurement (mass/volume) 6.6 g/dL 6.4-8.2 Serum or plasma albumin measurement (mass/volume) 4.2 g/dL 3.2-4.5 Hemoglobin A1c - 06/13/16 14:03 Hemoglobin A1c 5.4 % 4.5-6.2 Bacterial urine culture - 09/05/16 10:50 Bacterial urine culture [id number] NR COLONY COUNT >100,000/ML NR FTX;REPORTABLE PLUS, NR FREE TEXT ENTRY 2 MIXED GRAM POSITIVES <10,000/ML NR Lipid 1996 panel - 10/31/16 10:06 Serum or plasma triglyceride measurement (mass/volume) 90 mg/dL <150 Serum or plasma cholesterol measurement (mass/volume) 116 mg/dL < 200 Serum or plasma cholesterol in HDL measurement (mass/v olume) 46 mg/dL 40-60 Cholesterol in LDL [mass/volume] in serum or plasma by direct assay 37 mg/dL 1-129 Serum or plasma cholesterol in VLDL measurement (mass/ volume) 18 mg/dL 5-40 Hemoglobin A1c - 10/31/16 10:06 Hemoglobin A1c 5.3 % 4.5-6.2 THYROID STIMULATING HORMONE - 10/31/16 1 0:06 THYROID STIMULATING HORMONE 1.53 u[iU]/mL 0.35-4.94 Bacterial urine culture - 10/31/16 11:35 Bacterial urine culture [id number] NRG COLONY COUNT <10,000 NRG FREE TEXT ENTRY 2 PLUS, MIXED GRAM POSITIVES <10,0 00/ML NRG Hemoglobin A1c - 02/13/17 11:36 Hemoglobin A1c 5.3 % 4.5-6.2 Complete urinalysis with reflex to cultu re - 04/03/17 11:13 Urine color determination YELLOW NRG Urine clarity determination VERY CLOUDY NRG Urine pH measurement by test strip 6 5-9 Specific gravity of urine by test strip 1.010 1.016-1.022 Urine protein assay by test strip, semi-quantitative 3+ NEGATIVE Urine glucose detection by automated test strip NE GATIVE NEGATIVE Erythrocytes detection in urine sediment by light micr oscopy 4+ NEGATIVE Urine ketones detection by automated test strip NE GATIVE NEGATIVE Urine nitrite detection by test strip POSITIVE NEGATIVE Urine total bilirubin detection by test strip NEGA TIVE NEGATIVE Urine urobilinogen measurement by automated test strip (mass/volume) NORMAL NORMAL Urine leukocyte esterase detection by dipstick 3+ NEGATIVE Automated urine sediment erythrocyte cou nt by microscopy (number/high power field) [HPF] NRG Automated urine sediment leukocyte count by microscopy (number/high power field) TNTC NRG Bacteria detection in urine sediment by light microsco py LARGE NRG Squamous epithelial cells detection in u rine sediment by light microscopy NONE NRG Crystals detection in urine sediment by light microsco py NONE NRG Casts detection in urine sediment by light microscopy NONE NRG Mucus detection in urine sediment by light microscopy NEGATIVE NRG Complete urinalysis with reflex to culture YES NRG Bacterial urine culture - 04/03/17 11:13 Bacterial urine culture [id number] NRG COLONY COUNT >100,000/ML NRG FTX;REPORTABLE SENSITIVITY REPORTED AT 1649, 9-8-1 7 NRG Bacterial susceptibility panel - 7 11:13 Gentamicin susceptibility test by minimum inhibitory c oncentration <= NRG Trimethoprim/sulfamethoxazole susceptibi lity test by minimum inhibitoryconcentration <= NRG Ampicillin susceptibility test by minimum inhibitory c oncentration >= NRG Tobramycin susceptibility test by minimum inhibitory c oncentration <= NRG Cefazolin susceptibility test by minimum inhibitory co ncentration <= NRG Ceftriaxone susceptibility test by minimum inhibitory concentration <= NRG Ampicillin/sulbactam susceptibility test by minimum inhibitory concentration 8 NRG Piperacillin/tazobactam susceptibility t est by minimum inhibitory concentration <= NRG Ciprofloxacin susceptibility test by minimum inhibitor y concentration <= NRG Meropenem susceptibility test by minimum inhibitory co ncentration <= NRG Nitrofurantoin susceptibility test by mi nimum inhibitory concentration 32 NRG Aztreonam susceptibility test by minimum inhibitory co ncentration <= NRG Extended spectrum beta lactamase (ESBL) producing bacteria susceptibility test by minimum inhibitory concentration - NRG Complete blood count (CBC) with automate d white blood cell (WBC) differential - 04/03/17 11:15 Blood leukocytes automated count (number/volume) 16.6 10*3/uL 4.3-11.0 Blood erythrocytes automated count (number/volume) 3.15 10*6/uL 4.35-5.85 Venous blood hemoglobin measurement (mass/volume) 8.8 g/dL 11.5-16.0 Blood hematocrit (volume fraction) 27 % 35-52 Automated erythrocyte mean corpuscular volume 87 [ foz_us] 80-99 Automated erythrocyte mean corpuscular h emoglobin (mass per erythrocyte) 28 pg 25-34 Automated erythrocyte mean corpuscular h emoglobin concentration measurement (mass/volume) 32 g/dL 32-36 Automated erythrocyte distribution width ratio 17. 4 % 10.0- 14.5 Automated blood platelet count (count/volume) 160 10*3/uL [...] 10*3 1.0-4.0 Blood monocytes automated count (number/volume) 1. 1 10*3 0.0-1.0 Automated eosinophil count 0.0 10*3/uL 0 .0-0.3 Automated blood basophil count (count/volume) 0.0 10*3/uL 0.0-0.1 Blood lactic acid measurement (moles/vol ume) - 04/03/17 11:15 Blood lactic acid measurement (moles/volume) 0.83 mmol/L 0.50-2.00 PT panel in platelet poor plasma by coag ulation assay - 04/03/17 11:15 Prothrombin time (PT) in platelet poor plasma by coagu lation assay 16.0 s 12.2-14.7 INR in platelet poor plasma or blood by coagulation as say 1.3 0.8-1.4 Activated partial thromboplastin time (a PTT) in platelet poor plasma bycoagulation assay - 04/03/17 11:15 Activated partial thromboplastin time (a PTT) in platelet poor plasma bycoagulation assay 36 s 24-35 Comprehensive metabolic panel - 04/03/17 11:15 Serum or plasma sodium measurement (moles/volume) 130 mmol/L 135-145 Serum or plasma potassium measurement (moles/volume) 4.8 mmol/L 3.6-5.0 Serum or plasma chloride measurement (moles/volume) 101 mmol/L 98-107 Carbon dioxide 18 mmol/L 21-32 Serum or plasma anion gap determination (moles/volume) 11 mmol/L 5-14 Serum or plasma urea nitrogen measurement (mass/volume ) 38 mg/dL 7-18 Serum or plasma creatinine measurement (mass/volume) 2.51 mg/dL 0.60-1.30 Serum or plasma urea nitrogen/creatinine mass ratio 15 NRG Serum or plasma creatinine measurement w ith calculation of estimated glomerular filtration rate 18 NRG Serum or plasma glucose measurement (mass/volume) 211 mg/dL 70-105 Serum or plasma calcium measurement (mass/volume) 9.6 mg/dL 8.5-10.1 Serum or plasma total bilirubin measurement (mass/volu me) 0.8 mg/dL 0.1-1.0 Serum or plasma alkaline phosphatase josie surement (enzymatic activity/volume) 121 U/L 40-136 Serum or plasma aspartate aminotransfera se measurement (enzymatic activity/volume) 25 U/L 5-34 Serum or plasma alanine aminotransferase measurement (enzymatic activity/volume) 28 U/L 0-55 Serum or plasma protein measurement (mass/volume) 6.4 g/dL 6.4-8.2 Serum or plasma albumin measurement (mass/volume) 3.6 g/dL 3.2-4.5 Blood manual differential performed dete ction - 04/03/17 11:15 Blood monocytes/100 leukocytes 5 % NRG Manual blood segmented neutrophils/100 leukocytes 89 % NRG Blood band neutrophils/100 leukocytes 1 % NRG Manual blood lymphocytes/100 leukocytes 5 % NRG Manual eosinophils/100 leukocytes in nose 0 % NRG Manual blood basophils/100 leukocytes 0 % NRG Blood anisocytosis detection by light microscopy M ODERATE NRG Bacterial blood culture - 04/03/17 11:18 Bacterial blood culture NG NRG Bacterial blood culture - 04/03/17 13:53 Bacterial blood culture NG NRG Capillary blood glucose measurement by g lucometer (mass/volume) - 04/03/17 21:13 Capillary blood glucose measurement by glucometer (mas s/volume) 227 mg/dL 70-110 Capillary blood glucose measurement by g lucometer (mass/volume) - 04/04/17 05:29 Capillary blood glucose measurement by glucometer (mas s/volume) 144 mg/dL 70-110 Complete blood count (CBC) with automate d white blood cell (WBC) differential - 04/04/17 05:44 Blood leukocytes automated count (number/volume) 13.7 10*3/uL 4.3-11.0 Blood erythrocytes automated count (number/volume) 2.90 10*6/uL 4.35-5.85 Venous blood hemoglobin measurement (mass/volume) 8.0 g/dL 11.5-16.0 Blood hematocrit (volume fraction) 25 % 35-52 Automated erythrocyte mean corpuscular volume 88 [ foz_us] 80-99 Automated erythrocyte mean corpuscular h emoglobin (mass per erythrocyte) 28 pg 25-34 Automated erythrocyte mean corpuscular h emoglobin concentration measurement (mass/volume) 32 g/dL 32-36 Automated erythrocyte distribution width ratio 17. 4 % 10.0- 14.5 Automated blood platelet count (count/volume) 156 10*3/uL [...] 10*3 1.0-4.0 Blood monocytes automated count (number/volume) 1. 0 10*3 0.0-1.0 Automated eosinophil count 0.0 10*3/uL 0 .0-0.3 Automated blood basophil count (count/volume) 0.0 10*3/uL 0.0-0.1 Comprehensive metabolic panel - 04/04/17 05:44 Serum or plasma sodium measurement (moles/volume) 135 mmol/L 135-145 Serum or plasma potassium measurement (moles/volume) 4.4 mmol/L 3.6-5.0 Serum or plasma chloride measurement (moles/volume) 107 mmol/L 98-107 Carbon dioxide 16 mmol/L 21-32 Serum or plasma anion gap determination (moles/volume) 12 mmol/L 5-14 Serum or plasma urea nitrogen measurement (mass/volume ) 33 mg/dL 7-18 Serum or plasma creatinine measurement (mass/volume) 2.09 mg/dL 0.60-1.30 Serum or plasma urea nitrogen/creatinine mass ratio 16 NRG Serum or plasma creatinine measurement w ith calculation of estimated glomerular filtration rate 23 NRG Serum or plasma glucose measurement (mass/volume) 130 mg/dL 70-105 Serum or plasma calcium measurement (mass/volume) 9.2 mg/dL 8.5-10.1 Serum or plasma total bilirubin measurement (mass/volu me) 0.4 mg/dL 0.1-1.0 Serum or plasma alkaline phosphatase josie surement (enzymatic activity/volume) 127 U/L 40-136 Serum or plasma aspartate aminotransfera se measurement (enzymatic activity/volume) 38 U/L 5-34 Serum or plasma alanine aminotransferase measurement (enzymatic activity/volume) 32 U/L 0-55 Serum or plasma protein measurement (mass/volume) 5.9 g/dL 6.4-8.2 Serum or plasma albumin measurement (mass/volume) 3.2 g/dL 3.2-4.5 Capillary blood glucose measurement by g lucometer (mass/volume) - 04/04/17 11:34 Capillary blood glucose measurement by glucometer (mas s/volume) 167 mg/dL 70-110 Capillary blood glucose measurement by g lucometer (mass/volume) - 04/04/17 20:53 Capillary blood glucose measurement by glucometer (mas s/volume) 112 mg/dL 70-110 Complete blood count (CBC) with automate d white blood cell (WBC) differential - 04/05/17 05:25 Blood leukocytes automated count (number/volume) 10.5 10*3/uL 4.3-11.0 Blood erythrocytes automated count (number/volume) 2.89 10*6/uL 4.35-5.85 Venous blood hemoglobin measurement (mass/volume) 8.1 g/dL 11.5-16.0 Blood hematocrit (volume fraction) 25 % 35-52 Automated erythrocyte mean corpuscular volume 88 [ foz_us] 80-99 Automated erythrocyte mean corpuscular h emoglobin (mass per erythrocyte) 28 pg 25-34 Automated erythrocyte mean corpuscular h emoglobin concentration measurement (mass/volume) 32 g/dL 32-36 Automated erythrocyte distribution width ratio 17. 7 % 10.0- 14.5 Automated blood platelet count (count/volume) 160 10*3/uL [...] 10*3 1.0-4.0 Blood monocytes automated count (number/volume) 1. 2 10*3 0.0-1.0 Automated eosinophil count 0.1 10*3/uL 0 .0-0.3 Automated blood basophil count (count/volume) 0.0 10*3/uL 0.0-0.1 Whole blood basic metabolic panel - 04/13 05:25 Serum or plasma sodium measurement (moles/volume) 137 mmol/L 135-145 Serum or plasma potassium measurement (moles/volume) 4.1 mmol/L 3.6-5.0 Serum or plasma chloride measurement (moles/volume) 108 mmol/L 98-107 Carbon dioxide 18 mmol/L 21-32 Serum or plasma anion gap determination (moles/volume) 11 mmol/L 5-14 Serum or plasma urea nitrogen measurement (mass/volume ) 30 mg/dL 7-18 Serum or plasma creatinine measurement (mass/volume) 2.03 mg/dL 0.60-1.30 Serum or plasma urea nitrogen/creatinine mass ratio 15 NRG Serum or plasma creatinine measurement w ith calculation of estimated glomerular filtration rate 23 NRG Serum or plasma glucose measurement (mass/volume) 67 mg/dL 70-105 Serum or plasma calcium measurement (mass/volume) 9.5 mg/dL 8.5-10.1 Capillary blood glucose measurement by g lucometer (mass/volume) - 04/05/17 11:10 Capillary blood glucose measurement by glucometer (mas s/volume) 140 mg/dL 70-110 Bacterial urine culture - 04/17/17 14:00 URINE CULTURE RESULTS <10,000/ML NRG Complete blood count (CBC) with automate d white blood cell (WBC) differential - 07/23/17 13:55 Blood leukocytes automated count (number/volume) 8.5 10*3/uL 4.3-11.0 Blood erythrocytes automated count (number/volume) 3.66 10*6/uL 4.35-5.85 Venous blood hemoglobin measurement (mass/volume) 10.3 g/dL 11.5-16.0 Blood hematocrit (volume fraction) 33 % 35-52 Automated erythrocyte mean corpuscular volume 90 [ foz_us] 80-99 Automated erythrocyte mean corpuscular h emoglobin (mass per erythrocyte) 28 pg 25-34 Automated erythrocyte mean corpuscular h emoglobin concentration measurement (mass/volume) 31 g/dL 32-36 Automated erythrocyte distribution width ratio 14. 7 % 10.0- 14.5 Automated blood platelet count (count/volume) 134 10*3/uL [...] 10*3 1.0-4.0 Blood monocytes automated count (number/volume) 0. 5 10*3 0.0-1.0 Automated eosinophil count 0.3 10*3/uL 0 .0-0.3 Automated blood basophil count (count/volume) 0.0 10*3/uL 0.0-0.1 Capillary blood glucose measurement by g lucometer (mass/volume) - 09/02/17 16:09 Capillary blood glucose measurement by glucometer (mas s/volume) 281 mg/dL 70-110 PT panel in platelet poor plasma by coag ulation assay - 09/02/17 16:15 Prothrombin time (PT) in platelet poor plasma by coagu lation assay 15.9 s 12.2-14.7 INR in platelet poor plasma or blood by coagulation as say 1.3 0.8-1.4 Blood lactic acid measurement (moles/vol ume) - 09/02/17 16:15 Blood lactic acid measurement (moles/volume) 1.33 mmol/L 0.50-2.00 Complete blood count (CBC) with automate d white blood cell (WBC) differential - 09/02/17 16:15 Blood leukocytes automated count (number/volume) 15.8 10*3/uL 4.3-11.0 Blood erythrocytes automated count (number/volume) 3.14 10*6/uL 4.35-5.85 Venous blood hemoglobin measurement (mass/volume) 8.4 g/dL 11.5-16.0 Blood hematocrit (volume fraction) 26 % 35-52 Automated erythrocyte mean corpuscular volume 83 [ foz_us] 80-99 Automated erythrocyte mean corpuscular h emoglobin (mass per erythrocyte) 27 pg 25-34 Automated erythrocyte mean corpuscular h emoglobin concentration measurement (mass/volume) 32 g/dL 32-36 Automated erythrocyte distribution width ratio 14. 8 % 10.0- 14.5 Automated blood platelet count (count/volume) 165 10*3/uL [...] 10*3 1.0-4.0 Blood monocytes automated count (number/volume) 1. 3 10*3 0.0-1.0 Automated eosinophil count 0.2 10*3/uL 0 .0-0.3 Automated blood basophil count (count/volume) 0.0 10*3/uL 0.0-0.1 Blood manual differential performed dete ction - 09/02/17 16:15 Blood monocytes/100 leukocytes 3 [...] 5-14 Serum or plasma urea nitrogen measurement (mass/volume ) 34 mg/dL 7-18 Serum or plasma creatinine measurement (mass/volume) 2.13 mg/dL 0.60-1.30 Serum or plasma urea nitrogen/creatinine mass ratio 16 NRG Serum or plasma creatinine measurement w ith calculation of estimated glomerular filtration rate 22 NRG Serum or plasma glucose measurement (mass/volume) 239 mg/dL 70-105 Serum or plasma calcium measurement (mass/volume) 10.2 mg/dL 8.5-10.1 Serum or plasma total bilirubin measurement (mass/volu me) 0.8 mg/dL 0.1-1.0 Serum or plasma alkaline phosphatase josie surement (enzymatic activity/volume) 126 U/L 40-136 Serum or plasma aspartate aminotransfera se measurement (enzymatic activity/volume) 35 U/L 5-34 Serum or plasma alanine aminotransferase measurement (enzymatic activity/volume) 40 U/L 0-55 Serum or plasma protein measurement (mass/volume) 7.3 g/dL 6.4-8.2 Serum or plasma albumin measurement (mass/volume) 3.9 g/dL 3.2-4.5 Bacterial blood culture - 09/02/17 16:15 Bacterial blood culture NG NRG Bacterial blood culture - 09/02/17 16:19 Bacterial blood culture NG NRG Influenza virus A and B antigen detectio n - 09/02/17 16:35 FLU RESULT NEGATIVE FOR INFLUENZA A AND B ANTIGENS BY IA NRG Urine Legionella pneumophila antigen ass ay - 09/02/17 16:50 Urine Legionella pneumophila antigen assay Negativ e NRG Streptococcus pneumoniae antigen detecti on - 09/02/17 16:50 Streptococcus pneumoniae antigen detection Negativ e NRG Complete urinalysis with reflex to cultu re - 09/02/17 18:18 Urine color determination YELLOW NRG Urine clarity determination SLIGHTLY CLOUDY NRG Urine pH measurement by test strip 5 5-9 Specific gravity of urine by test strip 1.005 1.016-1.022 Urine protein assay by test strip, semi-quantitative 2+ NEGATIVE Urine glucose detection by automated test strip NE GATIVE NEGATIVE Erythrocytes detection in urine sediment by light micr oscopy 2+ NEGATIVE Urine ketones detection by automated test strip NE GATIVE NEGATIVE Urine nitrite detection by test strip POSITIVE NEGATIVE Urine total bilirubin detection by test strip NEGA TIVE NEGATIVE Urine urobilinogen measurement by automated test strip (mass/volume) NORMAL NORMAL Urine leukocyte esterase detection by dipstick 3+ NEGATIVE Automated urine sediment erythrocyte cou nt by microscopy (number/high power field) [HPF] NRG Automated urine sediment leukocyte count by microscopy (number/high power field) > [HPF] NRG Bacteria detection in urine sediment by light microsco py FEW NRG Crystals detection in urine sediment by light microsco py NONE NRG Casts detection in urine sediment by light microscopy NONE NRG Mucus detection in urine sediment by light microscopy NEGATIVE NRG Complete urinalysis with reflex to culture YES NRG Bacterial urine culture - 09/02/17 18:18 Bacterial urine culture [id number] NRG COLONY COUNT 10,000/ML - 100,000/ML NRG FTX;REPORTABLE SENSITIVITY REPORTED 09/03/17 17:40 NRG URINE CULTURE RESULTS PLUS NRG Bacterial susceptibility panel - 8 18:18 Gentamicin susceptibility test by minimum inhibitory c oncentration <= NRG Trimethoprim/sulfamethoxazole susceptibi lity test by minimum inhibitoryconcentration S NRG Ampicillin susceptibility test by minimum inhibitory c oncentration <= NRG Tobramycin susceptibility test by minimum inhibitory c oncentration <= NRG Cefazolin susceptibility test by minimum inhibitory co ncentration <= NRG Ceftriaxone susceptibility test by minimum inhibitory concentration <= NRG Ampicillin/sulbactam susceptibility test by minimum inhibitory concentration <= NRG Piperacillin/tazobactam susceptibility t est by minimum inhibitory concentration S NRG Ciprofloxacin susceptibility test by minimum inhibitor y concentration <= NRG Meropenem susceptibility test by minimum inhibitory co ncentration <= NRG Nitrofurantoin susceptibility test by mi nimum inhibitory concentration <= NRG Aztreonam susceptibility test by minimum inhibitory co ncentration <= NRG Extended spectrum beta lactamase (ESBL) producing bacteria susceptibility test by minimum inhibitory concentration - NRG Capillary blood glucose measurement by g lucometer (mass/volume) - 09/02/17 20:55 Capillary blood glucose measurement by glucometer (mas s/volume) 243 mg/dL 70-110 Capillary blood glucose measurement by g lucometer (mass/volume) - 09/03/17 06:04 Capillary blood glucose measurement by glucometer (mas s/volume) 133 mg/dL 70-110 Complete blood count (CBC) with automate d white blood cell (WBC) differential - 09/03/17 06:05 Blood leukocytes automated count (number/volume) 15.6 10*3/uL 4.3-11.0 Blood erythrocytes automated count (number/volume) 3.18 10*6/uL 4.35-5.85 Venous blood hemoglobin measurement (mass/volume) 8.5 g/dL 11.5-16.0 Blood hematocrit (volume fraction) 26 % 35-52 Automated erythrocyte mean corpuscular volume 82 [ foz_us] 80-99 Automated erythrocyte mean corpuscular h emoglobin (mass per erythrocyte) 27 pg 25-34 Automated erythrocyte mean corpuscular h emoglobin concentration measurement (mass/volume) 33 g/dL 32-36 Automated erythrocyte distribution width ratio 14. 8 % 10.0- 14.5 Automated blood platelet count (count/volume) 152 10*3/uL [...] 10*3 1.0-4.0 Blood monocytes automated count (number/volume) 1. 0 10*3 0.0-1.0 Automated eosinophil count 0.1 10*3/uL 0 .0-0.3 Automated blood basophil count (count/volume) 0.0 10*3/uL 0.0-0.1 Whole blood basic metabolic panel - 02/11 06:05 Serum or plasma sodium measurement (moles/volume) 133 mmol/L 135-145 Serum or plasma potassium measurement (moles/volume) 5.1 mmol/L 3.6-5.0 Serum or plasma chloride measurement (moles/volume) 105 mmol/L 98-107 Carbon dioxide 16 mmol/L 21-32 Serum or plasma anion gap determination (moles/volume) 12 mmol/L 5-14 Serum or plasma urea nitrogen measurement (mass/volume ) 29 mg/dL 7-18 Serum or plasma creatinine measurement (mass/volume) 1.78 mg/dL 0.60-1.30 Serum or plasma urea nitrogen/creatinine mass ratio 16 NRG Serum or plasma creatinine measurement w ith calculation of estimated glomerular filtration rate 27 NRG Serum or plasma glucose measurement (mass/volume) 124 mg/dL 70-105 Serum or plasma calcium measurement (mass/volume) 10.1 mg/dL 8.5-10.1 PT panel in platelet poor plasma by coag ulation assay - 09/03/17 06:05 Prothrombin time (PT) in platelet poor plasma by coagu lation assay 15.7 s 12.2-14.7 INR in platelet poor plasma or blood by coagulation as say 1.2 0.8-1.4 Serum or plasma phosphate measurement (m ass/volume) - 09/03/17 06:05 Serum or plasma phosphate measurement (mass/volume) 2.3 mg/dL 2.3-4.7 Magnesium - 09/03/17 06:05 Magnesium 1.6 mg/dL 1.8-2.4 Serum or plasma lithium measurement (mol es/volume) - 09/03/17 06:05 BNP level 165.6 pg/mL <100.0 Blood lactic acid measurement (moles/vol ume) - 09/03/17 10:30 Blood lactic acid measurement (moles/volume) 0.82 mmol/L 0.50-2.00 Capillary blood glucose measurement by g lucometer (mass/volume) - 09/03/17 13:01 Capillary blood glucose measurement by glucometer (mas s/volume) 159 mg/dL 70-110 Capillary blood glucose measurement by g lucometer (mass/volume) - 09/03/17 18:34 Capillary blood glucose measurement by glucometer (mas s/volume) 203 mg/dL 70-110 Capillary blood glucose measurement by g lucometer (mass/volume) - 09/03/17 21:08 Capillary blood glucose measurement by glucometer (mas s/volume) 216 mg/dL 70-110 Complete blood count (CBC) with automate d white blood cell (WBC) differential - 09/04/17 04:35 Blood leukocytes automated count (number/volume) 10.4 10*3/uL 4.3-11.0 Blood erythrocytes automated count (number/volume) 2.86 10*6/uL 4.35-5.85 Venous blood hemoglobin measurement (mass/volume) 7.7 g/dL 11.5-16.0 Blood hematocrit (volume fraction) 24 % 35-52 Automated erythrocyte mean corpuscular volume 83 [ foz_us] 80-99 Automated erythrocyte mean corpuscular h emoglobin (mass per erythrocyte) 27 pg 25-34 Automated erythrocyte mean corpuscular h emoglobin concentration measurement (mass/volume) 33 g/dL 32-36 Automated erythrocyte distribution width ratio 14. 9 % 10.0- 14.5 Automated blood platelet count (count/volume) 142 10*3/uL 130-400 Automated blood platelet mean volume measurement 10.0 [foz_us] 7.4-10.4 Automated blood neutrophils/100 leukocytes 73 % 42-75 Automated blood lymphocytes/100 leukocytes 17 % 12-44 Blood monocytes/100 leukocytes 9 % 0-12 Automated blood eosinophils/100 leukocytes 2 % 0-10 Automated blood basophils/100 leukocytes 0 % 0-10 Blood neutrophils automated count (number/volume) 7.6 10*3 1.8-7.8 Blood lymphocytes automated count (number/volume) 1.8 10*3 1.0-4.0 Blood monocytes automated count (number/volume) 0. 9 10*3 0.0-1.0 Automated eosinophil count 0.2 10*3/uL 0 .0-0.3 Automated blood basophil count (count/volume) 0.0 10*3/uL 0.0-0.1 PT panel in platelet poor plasma by coag ulation assay - 09/04/17 04:35 Prothrombin time (PT) in platelet poor plasma by coagu lation assay 15.8 s 12.2-14.7 INR in platelet poor plasma or blood by coagulation as say 1.3 0.8-1.4 Whole blood basic metabolic panel - 03/14 04:35 Serum or plasma sodium measurement (moles/volume) 136 mmol/L 135-145 Serum or plasma potassium measurement (moles/volume) 4.4 mmol/L 3.6-5.0 Serum or plasma chloride measurement (moles/volume) 110 mmol/L 98-107 Carbon dioxide 16 mmol/L 21-32 Serum or plasma anion gap determination (moles/volume) 10 mmol/L 5-14 Serum or plasma urea nitrogen measurement (mass/volume ) 23 mg/dL 7-18 Serum or plasma creatinine measurement (mass/volume) 1.39 mg/dL 0.60-1.30 Serum or plasma urea nitrogen/creatinine mass ratio 17 NRG Serum or plasma creatinine measurement w ith calculation of estimated glomerular filtration rate 36 NRG Serum or plasma glucose measurement (mass/volume) 79 mg/dL 70-105 Serum or plasma calcium measurement (mass/volume) 9.8 mg/dL 8.5-10.1 Serum or plasma phosphate measurement (m ass/volume) - 09/04/17 04:35 Serum or plasma phosphate measurement (mass/volume) 3.8 mg/dL 2.3-4.7 Magnesium - 09/04/17 04:35 Magnesium 1.7 mg/dL 1.8-2.4 Capillary blood glucose measurement by g lucometer (mass/volume) - 09/04/17 11:27 Capillary blood glucose measurement by glucometer (mas s/volume) 129 mg/dL 70-110 Capillary blood glucose measurement by g lucometer (mass/volume) - 09/04/17 16:27 Capillary blood glucose measurement by glucometer (mas s/volume) 101 mg/dL 70-110 Capillary blood glucose measurement by g lucometer (mass/volume) - 09/04/17 21:10 Capillary blood glucose measurement by glucometer (mas s/volume) 199 mg/dL 70-110 Complete blood count (CBC) with automate d white blood cell (WBC) differential - 09/05/17 05:00 Blood leukocytes automated count (number/volume) 10.2 10*3/uL 4.3-11.0 Blood erythrocytes automated count (number/volume) 2.74 10*6/uL 4.35-5.85 Venous blood hemoglobin measurement (mass/volume) 7.2 g/dL 11.5-16.0 Blood hematocrit (volume fraction) 23 % 35-52 Automated erythrocyte mean corpuscular volume 83 [ foz_us] 80-99 Automated erythrocyte mean corpuscular h emoglobin (mass per erythrocyte) 26 pg 25-34 Automated erythrocyte mean corpuscular h emoglobin concentration measurement (mass/volume) 32 g/dL 32-36 Automated erythrocyte distribution width ratio 15. 0 % 10.0- 14.5 Automated blood platelet count (count/volume) 146 10*3/uL 130-400 Automated blood platelet mean volume measurement 9.6 [foz_us] 7.4-10.4 Automated blood neutrophils/100 leukocytes 72 % 42-75 Automated blood lymphocytes/100 leukocytes 16 % 12-44 Blood monocytes/100 leukocytes 9 % 0-12 Automated blood eosinophils/100 leukocytes 3 % 0-10 Automated blood basophils/100 leukocytes 0 % 0-10 Blood neutrophils automated count (number/volume) 7.3 10*3 1.8-7.8 Blood lymphocytes automated count (number/volume) 1.7 10*3 1.0-4.0 Blood monocytes automated count (number/volume) 0. 9 10*3 0.0-1.0 Automated eosinophil count 0.3 10*3/uL 0 .0-0.3 Automated blood basophil count (count/volume) 0.0 10*3/uL 0.0-0.1 PT panel in platelet poor plasma by coag ulation assay - 09/05/17 05:00 Prothrombin time (PT) in platelet poor plasma by coagu lation assay 15.6 s 12.2-14.7 INR in platelet poor plasma or blood by coagulation as say 1.2 0.8-1.4 Whole blood basic metabolic panel - 04/14 05:00 Serum or plasma sodium measurement (moles/volume) 140 mmol/L 135-145 Serum or plasma potassium measurement (moles/volume) 4.2 mmol/L 3.6-5.0 Serum or plasma chloride measurement (moles/volume) 113 mmol/L 98-107 Carbon dioxide 15 mmol/L 21-32 Serum or plasma anion gap determination (moles/volume) 12 mmol/L 5-14 Serum or plasma urea nitrogen measurement (mass/volume ) 19 mg/dL 7-18 Serum or plasma creatinine measurement (mass/volume) 1.23 mg/dL 0.60-1.30 Serum or plasma urea nitrogen/creatinine mass ratio 15 NRG Serum or plasma creatinine measurement w ith calculation of estimated glomerular filtration rate 42 NRG Serum or plasma glucose measurement (mass/volume) 54 mg/dL 70-105 Serum or plasma calcium measurement (mass/volume) 9.4 mg/dL 8.5-10.1 Serum or plasma phosphate measurement (m ass/volume) - 09/05/17 05:00 Serum or plasma phosphate measurement (mass/volume) 3.8 mg/dL 2.3-4.7 Magnesium - 09/05/17 05:00 Magnesium 1.7 mg/dL 1.8-2.4 Capillary blood glucose measurement by g lucometer (mass/volume) - 09/05/17 06:51 Capillary blood glucose measurement by glucometer (mas s/volume) 95 mg/dL 70-110 RED CELLS LEUKO REDUCED AS1 - 09/05/17 0 7:18 RED CELLS LEUKO REDUCED AS1 N OT AVAILABLE NRG Blood type T Indirect antibody screen [facility] - 09/05/17 07:18 ABO+Rh group OP NRG Transfusion band number [id number] NRG Blood group antibody screen NEGATIVE NR G RED CELLS LEUKO REDUCED AS1 - 09/05/17 0 7:18 RED CELLS LEUKO REDUCED AS1 T RANSFUSED 09/05/17 1148 NRG Blood type T Indirect antibody screen [facility] - 09/05/17 07:18 ABO+Rh group OP NRG Transfusion band number N [id number] NR Blood group antibody screen NEGATIVE NR G Capillary blood glucose measurement by g lucometer (mass/volume) - 09/05/17 12:38 Capillary blood glucose measurement by glucometer (mas s/volume) 130 mg/dL 70-110 Whole blood hemoglobin and hematocrit pa laurent - 09/05/17 15:14 Venous blood hemoglobin measurement (mass/volume) 9.1 g/dL 11.5-16.0 Blood hematocrit (volume fraction) 28 % 35-52 Capillary blood glucose measurement by g lucometer (mass/volume) - 09/05/17 16:13 Capillary blood glucose measurement by glucometer (mas s/volume) 48 mg/dL 70-110 Capillary blood glucose measurement by g lucometer (mass/volume) - 09/05/17 16:47 Capillary blood glucose measurement by glucometer (mas s/volume) 75 mg/dL 70-110 Capillary blood glucose measurement by g lucometer (mass/volume) - 09/05/17 20:58 Capillary blood glucose measurement by glucometer (mas s/volume) 239 mg/dL 70-110 Capillary blood glucose measurement by g lucometer (mass/volume) - 09/06/17 04:40 Capillary blood glucose measurement by glucometer (mas s/volume) 125 mg/dL 70-110 Complete blood count (CBC) with automate d white blood cell (WBC) differential - 09/06/17 06:43 Blood leukocytes automated count (number/volume) 10.5 10*3/uL 4.3-11.0 Blood erythrocytes automated count (number/volume) 3.16 10*6/uL 4.35-5.85 Venous blood hemoglobin measurement (mass/volume) 8.6 g/dL 11.5-16.0 Blood hematocrit (volume fraction) 26 % 35-52 Automated erythrocyte mean corpuscular volume 83 [ foz_us] 80-99 Automated erythrocyte mean corpuscular h emoglobin (mass per erythrocyte) 27 pg 25-34 Automated erythrocyte mean corpuscular h emoglobin concentration measurement (mass/volume) 33 g/dL 32-36 Automated erythrocyte distribution width ratio 14. 9 % 10.0- 14.5 Automated blood platelet count (count/volume) 180 10*3/uL 130-400 Automated blood platelet mean volume measurement 9.6 [foz_us] 7.4-10.4 Automated blood neutrophils/100 leukocytes 76 % 42-75 Automated blood lymphocytes/100 leukocytes 15 % 12-44 Blood monocytes/100 leukocytes 6 % 0-12 Automated blood eosinophils/100 leukocytes 2 % 0-10 Automated blood basophils/100 leukocytes 1 % 0-10 Blood neutrophils automated count (number/volume) 8.0 10*3 1.8-7.8 Blood lymphocytes automated count (number/volume) 1.6 10*3 1.0-4.0 Blood monocytes automated count (number/volume) 0. 7 10*3 0.0-1.0 Automated eosinophil count 0.2 10*3/uL 0 .0-0.3 Automated blood basophil count (count/volume) 0.1 10*3/uL 0.0-0.1 Whole blood basic metabolic panel - 08/28 06:43 Serum or plasma sodium measurement (moles/volume) 139 mmol/L 135-145 Serum or plasma potassium measurement (moles/volume) 4.3 mmol/L 3.6-5.0 Serum or plasma chloride measurement (moles/volume) 109 mmol/L 98-107 Carbon dioxide 18 mmol/L 21-32 Serum or plasma anion gap determination (moles/volume) 12 mmol/L 5-14 Serum or plasma urea nitrogen measurement (mass/volume ) 14 mg/dL 7-18 Serum or plasma creatinine measurement (mass/volume) 1.16 mg/dL 0.60-1.30 Serum or plasma urea nitrogen/creatinine mass ratio 12 NRG Serum or plasma creatinine measurement w ith calculation of estimated glomerular filtration rate 45 NRG Serum or plasma glucose measurement (mass/volume) 120 mg/dL 70-105 Serum or plasma calcium measurement (mass/volume) 9.9 mg/dL 8.5-10.1 Capillary blood glucose measurement by g lucometer (mass/volume) - 09/06/17 11:17 Capillary blood glucose measurement by glucometer (mas s/volume) 249 mg/dL 70-110 Capillary blood glucose measurement by g lucometer (mass/volume) - 09/06/17 16:23 Capillary blood glucose measurement by glucometer (mas s/volume) 215 mg/dL 70-110 Capillary blood glucose measurement by g lucometer (mass/volume) - 09/06/17 20:35 Capillary blood glucose measurement by glucometer (mas s/volume) 180 mg/dL 70-110 Capillary blood glucose measurement by g lucometer (mass/volume) - 09/07/17 06:19 Capillary blood glucose measurement by glucometer (mas s/volume) 53 mg/dL 70-110 Capillary blood glucose measurement by g lucometer (mass/volume) - 09/07/17 06:30 Capillary blood glucose measurement by glucometer (mas s/volume) 58 mg/dL 70-110 Capillary blood glucose measurement by g lucometer (mass/volume) - 09/07/17 06:40 Capillary blood glucose measurement by glucometer (mas s/volume) 80 mg/dL 70-110 Capillary blood glucose measurement by g lucometer (mass/volume) - 09/07/17 11:34 Capillary blood glucose measurement by glucometer (mas s/volume) 156 mg/dL 70-110 Capillary blood glucose measurement by g lucometer (mass/volume) - 09/07/17 15:35 Capillary blood glucose measurement by glucometer (mas s/volume) 203 mg/dL 70-110 Capillary blood glucose measurement by g lucometer (mass/volume) - 09/07/17 21:31 Capillary blood glucose measurement by glucometer (mas s/volume) 188 mg/dL 70-110 Capillary blood glucose measurement by g lucometer (mass/volume) - 09/08/17 05:14 Capillary blood glucose measurement by glucometer (mas s/volume) 137 mg/dL 70-110 Capillary blood glucose measurement by g lucometer (mass/volume) - 09/08/17 11:30 Capillary blood glucose measurement by glucometer (mas s/volume) 153 mg/dL 70-110 Capillary blood glucose measurement by g lucometer (mass/volume) - 09/08/17 16:05 Capillary blood glucose measurement by glucometer (mas s/volume) 156 mg/dL 70-110 Capillary blood glucose measurement by g lucometer (mass/volume) - 09/08/17 21:17 Capillary blood glucose measurement by glucometer (mas s/volume) 251 mg/dL 70-110 Capillary blood glucose measurement by g lucometer (mass/volume) - 09/09/17 05:58 Capillary blood glucose measurement by glucometer (mas s/volume) 117 mg/dL 70-110 Capillary blood glucose measurement by g lucometer (mass/volume) - 09/09/17 11:07 Capillary blood glucose measurement by glucometer (mas s/volume) 138 mg/dL 70-110 Capillary blood glucose measurement by g lucometer (mass/volume) - 09/09/17 16:02 Capillary blood glucose measurement by glucometer (mas s/volume) 128 mg/dL 70-110 Capillary blood glucose measurement by g lucometer (mass/volume) - 09/09/17 20:21 Capillary blood glucose measurement by glucometer (mas s/volume) 188 mg/dL 70-110 Capillary blood glucose measurement by g lucometer (mass/volume) - 09/10/17 05:34 Capillary blood glucose measurement by glucometer (mas s/volume) 102 mg/dL 70-110 Fibrin D-dimer FEU measurement in platel et poor plasma (mass/volume) - 09/30/17 15:37 Fibrin D-dimer FEU measurement in platelet poor plasma (mass/volume) 2.69 ug/mL 0.00-0.49 Complete blood count (CBC) with automate d white blood cell (WBC) differential - 10/22/17 13:20 Blood leukocytes automated count (number/volume) 7.0 10*3/uL 4.3-11.0 Blood erythrocytes automated count (number/volume) 3.81 10*6/uL 4.35-5.85 Venous blood hemoglobin measurement (mass/volume) 10.2 g/dL 11.5-16.0 Blood hematocrit (volume fraction) 32 % 35-52 Automated erythrocyte mean corpuscular volume 84 [ foz_us] 80-99 Automated erythrocyte mean corpuscular h emoglobin (mass per erythrocyte) 27 pg 25-34 Automated erythrocyte mean corpuscular h emoglobin concentration measurement (mass/volume) 32 g/dL 32-36 Automated erythrocyte distribution width ratio 17. 2 % 10.0- 14.5 Automated blood platelet count (count/volume) 102 10*3/uL 130-400 Automated blood platelet mean volume measurement 11.0 [foz_us] 7.4-10.4 Automated blood neutrophils/100 leukocytes 69 % 42-75 Automated blood lymphocytes/100 leukocytes 25 % 12-44 Blood monocytes/100 leukocytes 4 % 0-12 Automated blood eosinophils/100 leukocytes 2 % 0-10 Automated blood basophils/100 leukocytes 0 % 0-10 Blood neutrophils automated count (number/volume) 4.9 10*3 1.8-7.8 Blood lymphocytes automated count (number/volume) 1.7 10*3 1.0-4.0 Blood monocytes automated count (number/volume) 0. 3 10*3 0.0-1.0 Automated eosinophil count 0.1 10*3/uL 0 .0-0.3 Automated blood basophil count (count/volume) 0.0 10*3/uL 0.0-0.1 Comprehensive metabolic panel - 10/22/17 13:20 Serum or plasma sodium measurement (moles/volume) 136 mmol/L 135-145 Serum or plasma potassium measurement (moles/volume) 4.5 mmol/L 3.6-5.0 Serum or plasma chloride measurement (moles/volume) 103 mmol/L 98-107 Carbon dioxide 25 mmol/L 21-32 Serum or plasma anion gap determination (moles/volume) 8 mmol/L 5-14 Serum or plasma urea nitrogen measurement (mass/volume ) 25 mg/dL 7-18 Serum or plasma creatinine measurement (mass/volume) 1.33 mg/dL 0.60-1.30 Serum or plasma urea nitrogen/creatinine mass ratio 19 NRG Serum or plasma creatinine measurement w ith calculation of estimated glomerular filtration rate 38 NRG Serum or plasma glucose measurement (mass/volume) 305 mg/dL 70-105 Serum or plasma calcium measurement (mass/volume) 10.2 mg/dL 8.5-10.1 Serum or plasma total bilirubin measurement (mass/volu me) 1.0 mg/dL 0.1-1.0 Serum or plasma alkaline phosphatase josie surement (enzymatic activity/volume) 184 U/L 40-136 Serum or plasma aspartate aminotransfera se measurement (enzymatic activity/volume) 17 U/L 5-34 Serum or plasma alanine aminotransferase measurement (enzymatic activity/volume) 18 U/L 0-55 Serum or plasma protein measurement (mass/volume) 7.1 g/dL 6.4-8.2 Serum or plasma albumin measurement (mass/volume) 4.3 g/dL 3.2-4.5 Serum or plasma lithium measurement (mol es/volume) - 10/22/17 13:20 BNP level 177.3 pg/mL <100.0 Serum or plasma troponin i.cardiac measu rement (mass/volume) - 10/22/17 13:20 Serum or plasma troponin i.cardiac measurement (mass/v olume) < ng/mL <0.30 Capillary blood glucose measurement by g lucometer (mass/volume) - 10/22/17 16:15 Capillary blood glucose measurement by glucometer (mas s/volume) 283 mg/dL 70-110 Capillary blood glucose measurement by g lucometer (mass/volume) - 10/22/17 20:20 Capillary blood glucose measurement by glucometer (mas s/volume) 204 mg/dL 70-110 Complete urinalysis with reflex to cultu re - 10/22/17 23:00 Urine color determination YELLOW NRG Urine clarity determination CLEAR NR G Urine pH measurement by test strip 6 5-9 Specific gravity of urine by test strip 1.010 1.016-1.022 Urine protein assay by test strip, semi-quantitative 3+ NEGATIVE Urine glucose detection by automated test strip NE GATIVE NEGATIVE Erythrocytes detection in urine sediment by light micr oscopy 1+ NEGATIVE Urine ketones detection by automated test strip NE GATIVE NEGATIVE Urine nitrite detection by test strip NEGATIVE NEGATIVE Urine total bilirubin detection by test strip NEGA TIVE NEGATIVE Urine urobilinogen measurement by automated test strip (mass/volume) NORMAL NORMAL Urine leukocyte esterase detection by dipstick 1+ NEGATIVE Automated urine sediment erythrocyte cou nt by microscopy (number/high power field) NONE NRG Automated urine sediment leukocyte count by microscopy (number/high power field) [HPF] NRG Bacteria detection in urine sediment by light microsco py NEGATIVE NRG Squamous epithelial cells detection in u rine sediment by light microscopy 0-2 NRG Crystals detection in urine sediment by light microsco py NONE NRG Casts detection in urine sediment by light microscopy NONE NRG Mucus detection in urine sediment by light microscopy NEGATIVE NRG Complete urinalysis with reflex to culture NO NRG Capillary blood glucose measurement by g lucometer (mass/volume) - 10/23/17 05:19 Capillary blood glucose measurement by glucometer (mas s/volume) 121 mg/dL 70-110 Complete blood count (CBC) with automate d white blood cell (WBC) differential - 10/23/17 05:53 Blood leukocytes automated count (number/volume) 6.7 10*3/uL 4.3-11.0 Blood erythrocytes automated count (number/volume) 3.64 10*6/uL 4.35-5.85 Venous blood hemoglobin measurement (mass/volume) 9.7 g/dL 11.5-16.0 Blood hematocrit (volume fraction) 30 % 35-52 Automated erythrocyte mean corpuscular volume 84 [ foz_us] 80-99 Automated erythrocyte mean corpuscular h emoglobin (mass per erythrocyte) 27 pg 25-34 Automated erythrocyte mean corpuscular h emoglobin concentration measurement (mass/volume) 32 g/dL 32-36 Automated erythrocyte distribution width ratio 17. 2 % 10.0- 14.5 Automated blood platelet count (count/volume) 104 10*3/uL 130-400 Automated blood platelet mean volume measurement 10.4 [foz_us] 7.4-10.4 Automated blood neutrophils/100 leukocytes 53 % 42-75 Automated blood lymphocytes/100 leukocytes 36 % 12-44 Blood monocytes/100 leukocytes 6 % 0-12 Automated blood eosinophils/100 leukocytes 5 % 0-10 Automated blood basophils/100 leukocytes 0 % 0-10 Blood neutrophils automated count (number/volume) 3.6 10*3 1.8-7.8 Blood lymphocytes automated count (number/volume) 2.4 10*3 1.0-4.0 Blood monocytes automated count (number/volume) 0. 4 10*3 0.0-1.0 Automated eosinophil count 0.3 10*3/uL 0 .0-0.3 Automated blood basophil count (count/volume) 0.0 10*3/uL 0.0-0.1 Comprehensive metabolic panel - 10/23/17 05:53 Serum or plasma sodium measurement (moles/volume) 137 mmol/L 135-145 Serum or plasma potassium measurement (moles/volume) 4.2 mmol/L 3.6-5.0 Serum or plasma chloride measurement (moles/volume) 104 mmol/L 98-107 Carbon dioxide 26 mmol/L 21-32 Serum or plasma anion gap determination (moles/volume) 7 mmol/L 5-14 Serum or plasma urea nitrogen measurement (mass/volume ) 22 mg/dL 7-18 Serum or plasma creatinine measurement (mass/volume) 1.20 mg/dL 0.60-1.30 Serum or plasma urea nitrogen/creatinine mass ratio 18 NRG Serum or plasma creatinine measurement w ith calculation of estimated glomerular filtration rate 43 NRG Serum or plasma glucose measurement (mass/volume) 121 mg/dL 70-105 Serum or plasma calcium measurement (mass/volume) 9.8 mg/dL 8.5-10.1 Serum or plasma total bilirubin measurement (mass/volu me) 1.0 mg/dL 0.1-1.0 Serum or plasma alkaline phosphatase josie surement (enzymatic activity/volume) 152 U/L 40-136 Serum or plasma aspartate aminotransfera se measurement (enzymatic activity/volume) 16 U/L 5-34 Serum or plasma alanine aminotransferase measurement (enzymatic activity/volume) 15 U/L 0-55 Serum or plasma protein measurement (mass/volume) 6.4 g/dL 6.4-8.2 Serum or plasma albumin measurement (mass/volume) 3.9 g/dL 3.2-4.5 Lipid 1996 panel - 10/23/17 05:53 Serum or plasma triglyceride measurement (mass/volume) 104 mg/dL <150 Serum or plasma cholesterol measurement (mass/volume) 105 mg/dL < 200 Serum or plasma cholesterol in HDL measurement (mass/v olume) 42 mg/dL 40-60 Cholesterol in LDL [mass/volume] in serum or plasma by direct assay 37 mg/dL 1-129 Serum or plasma cholesterol in VLDL measurement (mass/ volume) 21 mg/dL 5-40 Capillary blood glucose measurement by g lucometer (mass/volume) - 10/23/17 10:36 Capillary blood glucose measurement by glucometer (mas s/volume) 162 mg/dL 70-110 Capillary blood glucose measurement by g lucometer (mass/volume) - 10/23/17 15:46 Capillary blood glucose measurement by glucometer (mas s/volume) 337 mg/dL 70-110 Capillary blood glucose measurement by g lucometer (mass/volume) - 10/23/17 20:08 Capillary blood glucose measurement by glucometer (mas s/volume) 137 mg/dL 70-110 Methicillin resistant Staphylococcus aur eus (MRSA) screening culture - 10/23/17 20:58 Methicillin resistant Staphylococcus aureus (MRSA) scr eening culture NEG NRG Capillary blood glucose measurement by g lucometer (mass/volume) - 10/24/17 05:31 Capillary blood glucose measurement by glucometer (mas s/volume) 126 mg/dL 70-110 Capillary blood glucose measurement by g lucometer (mass/volume) - 10/24/17 13:37 Capillary blood glucose measurement by glucometer (mas s/volume) 185 mg/dL 70-110 Capillary blood glucose measurement by g lucometer (mass/volume) - 10/24/17 15:53 Capillary blood glucose measurement by glucometer (mas s/volume) 174 mg/dL 70-110 Capillary blood glucose measurement by g lucometer (mass/volume) - 10/24/17 20:35 Capillary blood glucose measurement by glucometer (mas s/volume) 229 mg/dL 70-110 Capillary blood glucose measurement by g lucometer (mass/volume) - 10/25/17 05:23 Capillary blood glucose measurement by glucometer (mas s/volume) 190 mg/dL 70-110 Complete blood count (CBC) with automate d white blood cell (WBC) differential - 10/25/17 10:16 Blood leukocytes automated count (number/volume) 9.0 10*3/uL 4.3-11.0 Blood erythrocytes automated count (number/volume) 3.18 10*6/uL 4.35-5.85 Venous blood hemoglobin measurement (mass/volume) 8.5 g/dL 11.5-16.0 Blood hematocrit (volume fraction) 27 % 35-52 Automated erythrocyte mean corpuscular volume 84 [ foz_us] 80-99 Automated erythrocyte mean corpuscular h emoglobin (mass per erythrocyte) 27 pg 25-34 Automated erythrocyte mean corpuscular h emoglobin concentration measurement (mass/volume) 32 g/dL 32-36 Automated erythrocyte distribution width ratio 17. 2 % 10.0- 14.5 Automated blood platelet count (count/volume) 87 1 0*3/uL 130-400 Automated blood platelet mean volume measurement 10.3 [foz_us] 7.4-10.4 Automated blood neutrophils/100 leukocytes 66 % 42-75 Automated blood lymphocytes/100 leukocytes 22 % 12-44 Blood monocytes/100 leukocytes 11 % 0-12 Automated blood eosinophils/100 leukocytes 1 % 0-10 Automated blood basophils/100 leukocytes 0 % 0-10 Blood neutrophils automated count (number/volume) 5.9 10*3 1.8-7.8 Blood lymphocytes automated count (number/volume) 1.9 10*3 1.0-4.0 Blood monocytes automated count (number/volume) 1. 0 10*3 0.0-1.0 Automated eosinophil count 0.1 10*3/uL 0 .0-0.3 Automated blood basophil count (count/volume) 0.0 10*3/uL 0.0-0.1 Whole blood basic metabolic panel - 09/27 08/14 10:16 Serum or plasma sodium measurement (moles/volume) 129 mmol/L 135-145 Serum or plasma potassium measurement (moles/volume) 4.5 mmol/L 3.6-5.0 Serum or plasma chloride measurement (moles/volume) 98 mmol/L 98-107 Carbon dioxide 24 mmol/L 21-32 Serum or plasma anion gap determination (moles/volume) 7 mmol/L 5-14 Serum or plasma urea nitrogen measurement (mass/volume ) 22 mg/dL 7-18 Serum or plasma creatinine measurement (mass/volume) 1.55 mg/dL 0.60-1.30 Serum or plasma urea nitrogen/creatinine mass ratio 14 NRG Serum or plasma creatinine measurement w ith calculation of estimated glomerular filtration rate 32 NRG Serum or plasma glucose measurement (mass/volume) 174 mg/dL 70-105 Serum or plasma calcium measurement (mass/volume) 9.0 mg/dL 8.5-10.1 Complete urinalysis with reflex to cultu re - 10/25/17 11:00 Urine color determination YELLOW NRG Urine clarity determination SLIGHTLY CLOUDY NRG Urine pH measurement by test strip 6 5-9 Specific gravity of urine by test strip 1.015 1.016-1.022 Urine protein assay by test strip, semi-quantitative 3+ NEGATIVE Urine glucose detection by automated test strip NE GATIVE NEGATIVE Erythrocytes detection in urine sediment by light micr oscopy 4+ NEGATIVE Urine ketones detection by automated test strip NE GATIVE NEGATIVE Urine nitrite detection by test strip NEGATIVE NEGATIVE Urine total bilirubin detection by test strip NEGA TIVE NEGATIVE Urine urobilinogen measurement by automated test strip (mass/volume) NORMAL NORMAL Urine leukocyte esterase detection by dipstick 3+ NEGATIVE Automated urine sediment erythrocyte cou nt by microscopy (number/high power field) [HPF] NRG Automated urine sediment leukocyte count by microscopy (number/high power field) [HPF] NRG Bacteria detection in urine sediment by light microsco py TRACE NRG Crystals detection in urine sediment by light microsco py NONE NRG Casts detection in urine sediment by light microscopy NONE NRG Mucus detection in urine sediment by light microscopy NEGATIVE NRG Complete urinalysis with reflex to culture YES NRG Bacterial urine culture - 10/25/17 11:00 Bacterial urine culture NG NRG Capillary blood glucose measurement by g lucometer (mass/volume) - 10/25/17 11:20 Capillary blood glucose measurement by glucometer (mas s/volume) 252 mg/dL 70-110 Capillary blood glucose measurement by g lucometer (mass/volume) - 10/25/17 16:04 Capillary blood glucose measurement by glucometer (mas s/volume) 189 mg/dL 70-110 Capillary blood glucose measurement by g lucometer (mass/volume) - 10/25/17 21:00 Capillary blood glucose measurement by glucometer (mas s/volume) 163 mg/dL 70-110 Capillary blood glucose measurement by g lucometer (mass/volume) - 10/26/17 05:24 Capillary blood glucose measurement by glucometer (mas s/volume) 192 mg/dL 70-110 Complete blood count (CBC) with automate d white blood cell (WBC) differential - 10/26/17 06:15 Blood leukocytes automated count (number/volume) 9.4 10*3/uL 4.3-11.0 Blood erythrocytes automated count (number/volume) 3.12 10*6/uL 4.35-5.85 Venous blood hemoglobin measurement (mass/volume) 8.3 g/dL 11.5-16.0 Blood hematocrit (volume fraction) 26 % 35-52 Automated erythrocyte mean corpuscular volume 83 [ foz_us] 80-99 Automated erythrocyte mean corpuscular h emoglobin (mass per erythrocyte) 27 pg 25-34 Automated erythrocyte mean corpuscular h emoglobin concentration measurement (mass/volume) 32 g/dL 32-36 Automated erythrocyte distribution width ratio 17. 1 % 10.0- 14.5 Automated blood platelet count (count/volume) 99 1 0*3/uL 130-400 Automated blood platelet mean volume measurement 10.2 [foz_us] 7.4-10.4 Automated blood neutrophils/100 leukocytes 66 % 42-75 Automated blood lymphocytes/100 leukocytes 21 % 12-44 Blood monocytes/100 leukocytes 10 % 0-12 Automated blood eosinophils/100 leukocytes 3 % 0-10 Automated blood basophils/100 leukocytes 0 % 0-10 Blood neutrophils automated count (number/volume) 6.1 10*3 1.8-7.8 Blood lymphocytes automated count (number/volume) 2.0 10*3 1.0-4.0 Blood monocytes automated count (number/volume) 1. 0 10*3 0.0-1.0 Automated eosinophil count 0.3 10*3/uL 0 .0-0.3 Automated blood basophil count (count/volume) 0.0 10*3/uL 0.0-0.1 Comprehensive metabolic panel - 10/26/17 06:15 Serum or plasma sodium measurement (moles/volume) 127 mmol/L 135-145 Serum or plasma potassium measurement (moles/volume) 4.8 mmol/L 3.6-5.0 Serum or plasma chloride measurement (moles/volume) 97 mmol/L 98-107 Carbon dioxide 21 mmol/L 21-32 Serum or plasma anion gap determination (moles/volume) 9 mmol/L 5-14 Serum or plasma urea nitrogen measurement (mass/volume ) 29 mg/dL 7-18 Serum or plasma creatinine measurement (mass/volume) 1.95 mg/dL 0.60-1.30 Serum or plasma urea nitrogen/creatinine mass ratio 15 NRG Serum or plasma creatinine measurement w ith calculation of estimated glomerular filtration rate 24 NRG Serum or plasma glucose measurement (mass/volume) 219 mg/dL 70-105 Serum or plasma calcium measurement (mass/volume) 9.2 mg/dL 8.5-10.1 Serum or plasma total bilirubin measurement (mass/volu me) 0.9 mg/dL 0.1-1.0 Serum or plasma alkaline phosphatase josie surement (enzymatic activity/volume) 138 U/L 40-136 Serum or plasma aspartate aminotransfera se measurement (enzymatic activity/volume) 14 U/L 5-34 Serum or plasma alanine aminotransferase measurement (enzymatic activity/volume) 14 U/L 0-55 Serum or plasma protein measurement (mass/volume) 5.8 g/dL 6.4-8.2 Serum or plasma albumin measurement (mass/volume) 3.4 g/dL 3.2-4.5 Capillary blood glucose measurement by g lucometer (mass/volume) - 10/26/17 11:07 Capillary blood glucose measurement by glucometer (mas s/volume) 263 mg/dL 70-110 Sputum Gram stain - 10/26/17 13:10 Sputum Gram stain Few yeast NRG Bacterial sputum culture - 10/26/17 13:1 0 FREE TEXT EXTERNAL NO GROWTH OF NORMAL CHRISTIAN NRG QUANTITY OF GROWTH Moderate Growth NR Bacterial sputum culture [id number] [facility] Bacterial susceptibility panel - 8 13:10 Gentamicin susceptibility test by minimum inhibitory c oncentration <= NRG Trimethoprim/sulfamethoxazole susceptibi lity test by minimum inhibitoryconcentration S NRG Ampicillin susceptibility test by minimum inhibitory c oncentration >= NRG Tobramycin susceptibility test by minimum inhibitory c oncentration <= NRG Cefazolin susceptibility test by minimum inhibitory co ncentration <= NRG Ceftriaxone susceptibility test by minimum inhibitory concentration <= NRG Ampicillin/sulbactam susceptibility test by minimum inhibitory concentration S NRG Piperacillin/tazobactam susceptibility t est by minimum inhibitory concentration S NRG Ciprofloxacin susceptibility test by minimum inhibitor y concentration <= NRG Meropenem susceptibility test by minimum inhibitory co ncentration <= NRG Aztreonam susceptibility test by minimum inhibitory co ncentration <= NRG Extended spectrum beta lactamase (ESBL) producing bacteria susceptibility test by minimum inhibitory concentration - NR Capillary blood glucose measurement by g lucometer (mass/volume) - 10/26/17 16:09 Capillary blood glucose measurement by glucometer (mas s/volume) 209 mg/dL 70-110 Capillary blood glucose measurement by g lucometer (mass/volume) - 10/26/17 20:59 Capillary blood glucose measurement by glucometer (mas s/volume) 202 mg/dL 70-110 Capillary blood glucose measurement by g lucometer (mass/volume) - 10/27/17 05:18 Capillary blood glucose measurement by glucometer (mas s/volume) 222 mg/dL 70-110 Complete blood count (CBC) with automate d white blood cell (WBC) differential - 10/27/17 05:43 Blood leukocytes automated count (number/volume) 7.6 10*3/uL 4.3-11.0 Blood erythrocytes automated count (number/volume) 3.15 10*6/uL 4.35-5.85 Venous blood hemoglobin measurement (mass/volume) 8.4 g/dL 11.5-16.0 Blood hematocrit (volume fraction) 26 % 35-52 Automated erythrocyte mean corpuscular volume 82 [ foz_us] 80-99 Automated erythrocyte mean corpuscular h emoglobin (mass per erythrocyte) 27 pg 25-34 Automated erythrocyte mean corpuscular h emoglobin concentration measurement (mass/volume) 33 g/dL 32-36 Automated erythrocyte distribution width ratio 17. 0 % 10.0- 14.5 Automated blood platelet count (count/volume) 113 10*3/uL 130-400 Automated blood platelet mean volume measurement 11.0 [foz_us] 7.4-10.4 Automated blood neutrophils/100 leukocytes 74 % 42-75 Automated blood lymphocytes/100 leukocytes 16 % 12-44 Blood monocytes/100 leukocytes 8 % 0-12 Automated blood eosinophils/100 leukocytes 1 % 0-10 Automated blood basophils/100 leukocytes 0 % 0-10 Blood neutrophils automated count (number/volume) 5.7 10*3 1.8-7.8 Blood lymphocytes automated count (number/volume) 1.2 10*3 1.0-4.0 Blood monocytes automated count (number/volume) 0. 6 10*3 0.0-1.0 Automated eosinophil count 0.1 10*3/uL 0 .0-0.3 Automated blood basophil count (count/volume) 0.0 10*3/uL 0.0-0.1 Comprehensive metabolic panel - 10/27/17 05:43 Serum or plasma sodium measurement (moles/volume) 128 mmol/L 135-145 Serum or plasma potassium measurement (moles/volume) 4.6 mmol/L 3.6-5.0 Serum or plasma chloride measurement (moles/volume) 101 mmol/L 98-107 Carbon dioxide 19 mmol/L 21-32 Serum or plasma anion gap determination (moles/volume) 8 mmol/L 5-14 Serum or plasma urea nitrogen measurement (mass/volume ) 28 mg/dL 7-18 Serum or plasma creatinine measurement (mass/volume) 1.63 mg/dL 0.60-1.30 Serum or plasma urea nitrogen/creatinine mass ratio 17 NRG Serum or plasma creatinine measurement w ith calculation of estimated glomerular filtration rate 30 NRG Serum or plasma glucose measurement (mass/volume) 179 mg/dL 70-105 Serum or plasma calcium measurement (mass/volume) 9.3 mg/dL 8.5-10.1 Serum or plasma total bilirubin measurement (mass/volu me) 0.9 mg/dL 0.1-1.0 Serum or plasma alkaline phosphatase josie surement (enzymatic activity/volume) 126 U/L 40-136 Serum or plasma aspartate aminotransfera se measurement (enzymatic activity/volume) 14 U/L 5-34 Serum or plasma alanine aminotransferase measurement (enzymatic activity/volume) 18 U/L 0-55 Serum or plasma protein measurement (mass/volume) 6.0 g/dL 6.4-8.2 Serum or plasma albumin measurement (mass/volume) 3.5 g/dL 3.2-4.5 Capillary blood glucose measurement by g lucometer (mass/volume) - 10/27/17 10:46 Capillary blood glucose measurement by glucometer (mas s/volume) 168 mg/dL 70-110 Capillary blood glucose measurement by g lucometer (mass/volume) - 10/27/17 17:37 Capillary blood glucose measurement by glucometer (mas s/volume) 193 mg/dL 70-110 Capillary blood glucose measurement by g lucometer (mass/volume) - 10/27/17 20:25 Capillary blood glucose measurement by glucometer (mas s/volume) 158 mg/dL 70-110 Capillary blood glucose measurement by g lucometer (mass/volume) - 10/28/17 05:29 Capillary blood glucose measurement by glucometer (mas s/volume) 148 mg/dL 70-110 Complete blood count (CBC) with automate d white blood cell (WBC) differential - 10/28/17 05:36 Blood leukocytes automated count (number/volume) 6.7 10*3/uL 4.3-11.0 Blood erythrocytes automated count (number/volume) 2.96 10*6/uL 4.35-5.85 Venous blood hemoglobin measurement (mass/volume) 7.9 g/dL 11.5-16.0 Blood hematocrit (volume fraction) 24 % 35-52 Automated erythrocyte mean corpuscular volume 82 [ foz_us] 80-99 Automated erythrocyte mean corpuscular h emoglobin (mass per erythrocyte) 27 pg 25-34 Automated erythrocyte mean corpuscular h emoglobin concentration measurement (mass/volume) 33 g/dL 32-36 Automated erythrocyte distribution width ratio 16. 9 % 10.0- 14.5 Automated blood platelet count (count/volume) 108 10*3/uL 130-400 Automated blood platelet mean volume measurement 10.6 [foz_us] 7.4-10.4 Automated blood neutrophils/100 leukocytes 55 % 42-75 Automated blood lymphocytes/100 leukocytes 30 % 12-44 Blood monocytes/100 leukocytes 10 % 0-12 Automated blood eosinophils/100 leukocytes 4 % 0-10 Automated blood basophils/100 leukocytes 0 % 0-10 Blood neutrophils automated count (number/volume) 3.7 10*3 1.8-7.8 Blood lymphocytes automated count (number/volume) 2.0 10*3 1.0-4.0 Blood monocytes automated count (number/volume) 0. 7 10*3 0.0-1.0 Automated eosinophil count 0.3 10*3/uL 0 .0-0.3 Automated blood basophil count (count/volume) 0.0 10*3/uL 0.0-0.1 Whole blood basic metabolic panel - 10/12 05:36 Serum or plasma sodium measurement (moles/volume) 130 mmol/L 135-145 Serum or plasma potassium measurement (moles/volume) 4.1 mmol/L 3.6-5.0 Serum or plasma chloride measurement (moles/volume) 104 mmol/L 98-107 Carbon dioxide 14 mmol/L 21-32 Serum or plasma anion gap determination (moles/volume) 12 mmol/L 5-14 Serum or plasma urea nitrogen measurement (mass/volume ) 39 mg/dL 7-18 Serum or plasma creatinine measurement (mass/volume) 2.18 mg/dL 0.60-1.30 Serum or plasma urea nitrogen/creatinine mass ratio 18 NRG Serum or plasma creatinine measurement w ith calculation of estimated glomerular filtration rate 21 NRG Serum or plasma glucose measurement (mass/volume) 130 mg/dL 70-105 Serum or plasma calcium measurement (mass/volume) 9.4 mg/dL 8.5-10.1 Capillary blood glucose measurement by g lucometer (mass/volume) - 10/28/17 11:00 Capillary blood glucose measurement by glucometer (mas s/volume) 144 mg/dL 70-110 Capillary blood glucose measurement by g lucometer (mass/volume) - 10/28/17 16:13 Capillary blood glucose measurement by glucometer (mas s/volume) 197 mg/dL 70-110 C DIFFICILE AG + TOXIN A/B. - 10/28/17 2 0:10 RESULTS NEGATIVE FOR ANTIGEN AND TOXIN A/B NRG Capillary blood glucose measurement by g lucometer (mass/volume) - 10/28/17 20:28 Capillary blood glucose measurement by glucometer (mas s/volume) 159 mg/dL 70-110 Capillary blood glucose measurement by g lucometer (mass/volume) - 10/29/17 05:08 Capillary blood glucose measurement by glucometer (mas s/volume) 148 mg/dL 70-110 Whole blood basic metabolic panel - 11/12 05:41 Serum or plasma sodium measurement (moles/volume) 133 mmol/L 135-145 Serum or plasma potassium measurement (moles/volume) 4.3 mmol/L 3.6-5.0 Serum or plasma chloride measurement (moles/volume) 110 mmol/L 98-107 Carbon dioxide 16 mmol/L 21-32 Serum or plasma anion gap determination (moles/volume) 7 mmol/L 5-14 Serum or plasma urea nitrogen measurement (mass/volume ) 29 mg/dL 7-18 Serum or plasma creatinine measurement (mass/volume) 1.54 mg/dL 0.60-1.30 Serum or plasma urea nitrogen/creatinine mass ratio 19 NRG Serum or plasma creatinine measurement w ith calculation of estimated glomerular filtration rate 32 NRG Serum or plasma glucose measurement (mass/volume) 141 mg/dL 70-105 Serum or plasma calcium measurement (mass/volume) 9.3 mg/dL 8.5-10.1 Magnesium - 10/29/17 05:41 Magnesium 1.8 mg/dL 1.8-2.4 Capillary blood glucose measurement by g lucometer (mass/volume) - 10/29/17 11:06 Capillary blood glucose measurement by glucometer (mas s/volume) 137 mg/dL 70-110 Complete blood count (CBC) with automate d white blood cell (WBC) differential - 11/25/17 14:20 Blood leukocytes automated count (number/volume) 7.1 10*3/uL 4.3-11.0 Blood erythrocytes automated count (number/volume) 3.42 10*6/uL 4.35-5.85 Venous blood hemoglobin measurement (mass/volume) 8.7 g/dL 11.5-16.0 Blood hematocrit (volume fraction) 29 % 35-52 Automated erythrocyte mean corpuscular volume 84 [ foz_us] 80-99 Automated erythrocyte mean corpuscular h emoglobin (mass per erythrocyte) 25 pg 25-34 Automated erythrocyte mean corpuscular h emoglobin concentration measurement (mass/volume) 30 g/dL 32-36 Automated erythrocyte distribution width ratio 18. 1 % 10.0- 14.5 Automated blood platelet count (count/volume) 162 10*3/uL 130-400 Automated blood platelet mean volume measurement 10.3 [foz_us] 7.4-10.4 Automated blood neutrophils/100 leukocytes 63 % 42-75 Automated blood lymphocytes/100 leukocytes 27 % 12-44 Blood monocytes/100 leukocytes 6 % 0-12 Automated blood eosinophils/100 leukocytes 4 % 0-10 Automated blood basophils/100 leukocytes 1 % 0-10 Blood neutrophils automated count (number/volume) 4.5 10*3 1.8-7.8 Blood lymphocytes automated count (number/volume) 1.9 10*3 1.0-4.0 Blood monocytes automated count (number/volume) 0. 4 10*3 0.0-1.0 Automated eosinophil count 0.3 10*3/uL 0 .0-0.3 Automated blood basophil count (count/volume) 0.0 10*3/uL 0.0-0.1 Comprehensive metabolic panel - 11/25/17 14:20 Serum or plasma sodium measurement (moles/volume) 137 mmol/L 135-145 Serum or plasma potassium measurement (moles/volume) 4.4 mmol/L 3.6-5.0 Serum or plasma chloride measurement (moles/volume) 107 mmol/L 98-107 Carbon dioxide 18 mmol/L 21-32 Serum or plasma anion gap determination (moles/volume) 12 mmol/L 5-14 Serum or plasma urea nitrogen measurement (mass/volume ) 26 mg/dL 7-18 Serum or plasma creatinine measurement (mass/volume) 1.57 mg/dL 0.60-1.30 Serum or plasma urea nitrogen/creatinine mass ratio 17 NRG Serum or plasma creatinine measurement w ith calculation of estimated glomerular filtration rate 31 NRG Serum or plasma glucose measurement (mass/volume) 229 mg/dL 70-105 Serum or plasma calcium measurement (mass/volume) 10.4 mg/dL 8.5-10.1 Serum or plasma total bilirubin measurement (mass/volu me) 0.5 mg/dL 0.1-1.0 Serum or plasma alkaline phosphatase josie surement (enzymatic activity/volume) 147 U/L 40-136 Serum or plasma aspartate aminotransfera se measurement (enzymatic activity/volume) 19 U/L 5-34 Serum or plasma alanine aminotransferase measurement (enzymatic activity/volume) 18 U/L 0-55 Serum or plasma protein measurement (mass/volume) 7.1 g/dL 6.4-8.2 Serum or plasma albumin measurement (mass/volume) 4.1 g/dL 3.2-4.5 Serum or plasma ferritin measurement (ma ss/volume) - 11/25/17 14:20 Serum or plasma ferritin measurement (mass/volume) 133.0 % 15.0-150.0 Complete urinalysis with reflex to cultu re - 02/25/18 19:45 Urine color determination YELLOW NRG Urine clarity determination VERY CLOUDY NRG Urine pH measurement by test strip 5 5-9 Specific gravity of urine by test strip 1.010 1.016-1.022 Urine protein assay by test strip, semi-quantitative 3+ NEGATIVE Urine glucose detection by automated test strip NE GATIVE NEGATIVE Erythrocytes detection in urine sediment by light micr oscopy 3+ NEGATIVE Urine ketones detection by automated test strip NE GATIVE NEGATIVE Urine nitrite detection by test strip NEGATIVE NEGATIVE Urine total bilirubin detection by test strip NEGA TIVE NEGATIVE Urine urobilinogen measurement by automated test strip (mass/volume) NORMAL NORMAL Urine leukocyte esterase detection by dipstick 3+ NEGATIVE Automated urine sediment erythrocyte cou nt by microscopy (number/high power field) [HPF] NRG Automated urine sediment leukocyte count by microscopy (number/high power field) TNTC NRG Bacteria detection in urine sediment by light microsco py LARGE NRG Crystals detection in urine sediment by light microsco py NONE NRG Casts detection in urine sediment by light microscopy NONE NRG Mucus detection in urine sediment by light microscopy NEGATIVE NRG Complete urinalysis with reflex to culture YES NRG Bacterial urine culture - 02/25/18 19:45 Bacterial urine culture RML NRG COLONY COUNT . NRG FTX;REPORTABLE RML REPORTED SENSITIVITY 02/27/18 11: 05 NRG RML Sensitivity Panel - 02/25/18 19:45 Gentamicin susceptibility test by minimum inhibitory c oncentration <= NRG Trimethoprim/sulfamethoxazole susceptibi lity test by minimum inhibitoryconcentration <= NRG Levofloxacin susceptibility test by minimum inhibitory concentration <= NRG Ampicillin susceptibility test by minimum inhibitory c oncentration > NRG Cefazolin susceptibility test by minimum inhibitory co ncentration 2 NRG Ceftriaxone susceptibility test by minimum inhibitory concentration <= NRG Ciprofloxacin susceptibility test by minimum inhibitor y concentration <= NRG Meropenem susceptibility test by minimum inhibitory co ncentration <= NRG Nitrofurantoin susceptibility test by ct nimum inhibitory concentration 32 NRG Amoxicillin and clavulanate potassium susc KAROLYN <= NRG Complete urinalysis with reflex to cultu re - 03/20/18 19:18 Urine color determination YELLOW NRG Urine clarity determination CLEAR NR G Urine pH measurement by test strip 6 5-9 Specific gravity of urine by test strip 1.010 1.016-1.022 Urine protein assay by test strip, semi-quantitative 3+ NEGATIVE Urine glucose detection by automated test strip NE GATIVE NEGATIVE Erythrocytes detection in urine sediment by light micr oscopy NEGATIVE NEGATIVE Urine ketones detection by automated test strip NE GATIVE NEGATIVE Urine nitrite detection by test strip NEGATIVE NEGATIVE Urine total bilirubin detection by test strip NEGA TIVE NEGATIVE Urine urobilinogen measurement by automated test strip (mass/volume) NORMAL NORMAL Urine leukocyte esterase detection by dipstick 1+ NEGATIVE Automated urine sediment erythrocyte cou nt by microscopy (number/high power field) NONE NRG Automated urine sediment leukocyte count by microscopy (number/high power field) [HPF] NRG Bacteria detection in urine sediment by light microsco py TRACE NRG Crystals detection in urine sediment by light microsco py NONE NRG Casts detection in urine sediment by light microscopy NONE NRG Mucus detection in urine sediment by light microscopy NEGATIVE NRG Complete urinalysis with reflex to culture YES NRG Bacterial urine culture - 03/20/18 19:18 Bacterial urine culture SEE COMMEN NRG COLONY COUNT . NRG Complete blood count (CBC) with automate d white blood cell (WBC) differential - 03/20/18 19:28 Blood leukocytes automated count (number/volume) 12.6 10*3/uL 4.3-11.0 Blood erythrocytes automated count (number/volume) 3.18 10*6/uL 4.35-5.85 Venous blood hemoglobin measurement (mass/volume) 8.8 g/dL 11.5-16.0 Blood hematocrit (volume fraction) 26 % 35-52 Automated erythrocyte mean corpuscular volume 83 [ foz_us] 80-99 Automated erythrocyte mean corpuscular h emoglobin (mass per erythrocyte) 28 pg 25-34 Automated erythrocyte mean corpuscular h emoglobin concentration measurement (mass/volume) 33 g/dL 32-36 Automated erythrocyte distribution width ratio 19. 1 % 10.0- 14.5 Automated blood platelet count (count/volume) 148 10*3/uL 130-400 Automated blood platelet mean volume measurement 9.2 [foz_us] 7.4-10.4 Automated blood neutrophils/100 leukocytes 77 % 42-75 Automated blood lymphocytes/100 leukocytes 13 % 12-44 Blood monocytes/100 leukocytes 10 % 0-12 Automated blood eosinophils/100 leukocytes 1 % 0-10 Automated blood basophils/100 leukocytes 0 % 0-10 Blood neutrophils automated count (number/volume) 9.7 10*3 1.8-7.8 Blood lymphocytes automated count (number/volume) 1.6 10*3 1.0-4.0 Blood monocytes automated count (number/volume) 1. 2 10*3 0.0-1.0 Automated eosinophil count 0.1 10*3/uL 0 .0-0.3 Automated blood basophil count (count/volume) 0.0 10*3/uL 0.0-0.1 Comprehensive metabolic panel - 03/20/18 19:28 Serum or plasma sodium measurement (moles/volume) 126 mmol/L 135-145 Serum or plasma potassium measurement (moles/volume) 4.6 mmol/L 3.6-5.0 Serum or plasma chloride measurement (moles/volume) 94 mmol/L 98-107 Carbon dioxide 21 mmol/L 21-32 Serum or plasma anion gap determination (moles/volume) 11 mmol/L 5-14 Serum or plasma urea nitrogen measurement (mass/volume ) 26 mg/dL 7-18 Serum or plasma creatinine measurement (mass/volume) 1.81 mg/dL 0.60-1.30 Serum or plasma urea nitrogen/creatinine mass ratio 14 NRG Serum or plasma creatinine measurement w ith calculation of estimated glomerular filtration rate 27 NRG Serum or plasma glucose measurement (mass/volume) 213 mg/dL 70-105 Serum or plasma calcium measurement (mass/volume) 9.7 mg/dL 8.5-10.1 Serum or plasma total bilirubin measurement (mass/volu me) 1.2 mg/dL 0.1-1.0 Serum or plasma alkaline phosphatase josie surement (enzymatic activity/volume) 192 U/L 40-136 Serum or plasma aspartate aminotransfera se measurement (enzymatic activity/volume) 17 U/L 5-34 Serum or plasma alanine aminotransferase measurement (enzymatic activity/volume) 13 U/L 0-55 Serum or plasma protein measurement (mass/volume) 7.3 g/dL 6.4-8.2 Serum or plasma albumin measurement (mass/volume) 4.1 g/dL 3.2-4.5 CALCIUM CORRECTED 9.6 mg/dL 8.5-10.1 Complete blood count (CBC) with automate d white blood cell (WBC) differential - 03/22/18 18:46 Blood leukocytes automated count (number/volume) 10.1 10*3/uL 4.3-11.0 Blood erythrocytes automated count (number/volume) 2.77 10*6/uL 4.35-5.85 Venous blood hemoglobin measurement (mass/volume) 7.5 g/dL 11.5-16.0 Blood hematocrit (volume fraction) 23 % 35-52 Automated erythrocyte mean corpuscular volume 82 [ foz_us] 80-99 Automated erythrocyte mean corpuscular h emoglobin (mass per erythrocyte) 27 pg 25-34 Automated erythrocyte mean corpuscular h emoglobin concentration measurement (mass/volume) 33 g/dL 32-36 Automated erythrocyte distribution width ratio 19. 0 % 10.0- 14.5 Automated blood platelet count (count/volume) 152 10*3/uL 130-400 Automated blood platelet mean volume measurement 9.2 [foz_us] 7.4-10.4 Automated blood neutrophils/100 leukocytes 78 % 42-75 Automated blood lymphocytes/100 leukocytes 11 % 12-44 Blood monocytes/100 leukocytes 11 % 0-12 Automated blood eosinophils/100 leukocytes 0 % 0-10 Automated blood basophils/100 leukocytes 0 % 0-10 Blood neutrophils automated count (number/volume) 7.9 10*3 1.8-7.8 Blood lymphocytes automated count (number/volume) 1.1 10*3 1.0-4.0 Blood monocytes automated count (number/volume) 1. 1 10*3 0.0-1.0 Automated eosinophil count 0.0 10*3/uL 0 .0-0.3 Automated blood basophil count (count/volume) 0.0 10*3/uL 0.0-0.1 PT panel in platelet poor plasma by coag ulation assay - 03/22/18 18:46 Prothrombin time (PT) in platelet poor plasma by coagu lation assay 16.9 s 12.2-14.7 INR in platelet poor plasma or blood by coagulation as say 1.4 0.8-1.4 Activated partial thromboplastin time (a PTT) in platelet poor plasma bycoagulation assay - 03/22/18 18:46 Activated partial thromboplastin time (a PTT) in platelet poor plasma bycoagulation assay 36 s 24-35 Blood lactic acid measurement (moles/vol ume) - 03/22/18 18:46 Blood lactic acid measurement (moles/volume) 1.19 mmol/L 0.50-2.00 Comprehensive metabolic panel - 03/22/18 18:46 Serum or plasma sodium measurement (moles/volume) 121 mmol/L 135-145 Serum or plasma potassium measurement (moles/volume) 4.2 mmol/L 3.6-5.0 Serum or plasma chloride measurement (moles/volume) 92 mmol/L 98-107 Carbon dioxide 18 mmol/L 21-32 Serum or plasma anion gap determination (moles/volume) 11 mmol/L 5-14 Serum or plasma urea nitrogen measurement (mass/volume ) 37 mg/dL 7-18 Serum or plasma creatinine measurement (mass/volume) 2.12 mg/dL 0.60-1.30 Serum or plasma urea nitrogen/creatinine mass ratio 17 NRG Serum or plasma creatinine measurement w ith calculation of estimated glomerular filtration rate 22 NRG Serum or plasma glucose measurement (mass/volume) 280 mg/dL 70-105 Serum or plasma calcium measurement (mass/volume) 9.1 mg/dL 8.5-10.1 Serum or plasma total bilirubin measurement (mass/volu me) 0.9 mg/dL 0.1-1.0 Serum or plasma alkaline phosphatase josie surement (enzymatic activity/volume) 152 U/L 40-136 Serum or plasma aspartate aminotransfera se measurement (enzymatic activity/volume) 70 U/L 5-34 Serum or plasma alanine aminotransferase measurement (enzymatic activity/volume) 50 U/L 0-55 Serum or plasma protein measurement (mass/volume) 6.5 g/dL 6.4-8.2 Serum or plasma albumin measurement (mass/volume) 3.6 g/dL 3.2-4.5 CALCIUM CORRECTED 9.4 mg/dL 8.5-10.1 Serum or plasma lithium measurement (mol es/volume) - 03/22/18 18:46 BNP level 222.5 pg/mL <100.0 Bacterial blood culture - 03/22/18 18:46 Bacterial blood culture NG NRG Bacterial blood culture - 03/22/18 19:27 Bacterial blood culture NG NRG Complete urinalysis with reflex to cultu re - 03/22/18 20:04 Urine color determination YELLOW NRG Urine clarity determination CLEAR NR G Urine pH measurement by test strip 6 5-9 Specific gravity of urine by test strip 1.010 1.016-1.022 Urine protein assay by test strip, semi-quantitative 3+ NEGATIVE Urine glucose detection by automated test strip 1+ NEGATIVE Erythrocytes detection in urine sediment by light micr oscopy 1+ NEGATIVE Urine ketones detection by automated test strip NE GATIVE NEGATIVE Urine nitrite detection by test strip NEGATIVE NEGATIVE Urine total bilirubin detection by test strip NEGA TIVE NEGATIVE Urine urobilinogen measurement by automated test strip (mass/volume) NORMAL NORMAL Urine leukocyte esterase detection by dipstick NEG ATIVE NEGATIVE Automated urine sediment erythrocyte cou nt by microscopy (number/high power field) NONE NRG Automated urine sediment leukocyte count by microscopy (number/high power field) [HPF] NRG Bacteria detection in urine sediment by light microsco py FEW NRG Squamous epithelial cells detection in u rine sediment by light microscopy 0-2 NRG Crystals detection in urine sediment by light microsco py NONE NRG Casts detection in urine sediment by light microscopy NONE NRG Mucus detection in urine sediment by light microscopy SMALL NRG Complete urinalysis with reflex to culture NO NRG Bacterial urine culture - 03/22/18 20:04 Bacterial urine culture NG NRG Complete blood count (CBC) with automate d white blood cell (WBC) differential - 03/23/18 05:45 Blood leukocytes automated count (number/volume) 7.6 10*3/uL 4.3-11.0 Blood erythrocytes automated count (number/volume) 2.55 10*6/uL 4.35-5.85 Venous blood hemoglobin measurement (mass/volume) 7.0 g/dL 11.5-16.0 Blood hematocrit (volume fraction) 21 % 35-52 Automated erythrocyte mean corpuscular volume 82 [ foz_us] 80-99 Automated erythrocyte mean corpuscular h emoglobin (mass per erythrocyte) 27 pg 25-34 Automated erythrocyte mean corpuscular h emoglobin concentration measurement (mass/volume) 32 g/dL 32-36 Automated erythrocyte distribution width ratio 19. 2 % 10.0- 14.5 Automated blood platelet count (count/volume) 137 10*3/uL 130-400 Automated blood platelet mean volume measurement 9.3 [foz_us] 7.4-10.4 Automated blood neutrophils/100 leukocytes 73 % 42-75 Automated blood lymphocytes/100 leukocytes 16 % 12-44 Blood monocytes/100 leukocytes 10 % 0-12 Automated blood eosinophils/100 leukocytes 1 % 0-10 Automated blood basophils/100 leukocytes 0 % 0-10 Blood neutrophils automated count (number/volume) 5.5 10*3 1.8-7.8 Blood lymphocytes automated count (number/volume) 1.2 10*3 1.0-4.0 Blood monocytes automated count (number/volume) 0. 7 10*3 0.0-1.0 Automated eosinophil count 0.1 10*3/uL 0 .0-0.3 Automated blood basophil count (count/volume) 0.0 10*3/uL 0.0-0.1 Whole blood basic metabolic panel - 02/26 02/11 05:45 Serum or plasma sodium measurement (moles/volume) 124 mmol/L 135-145 Serum or plasma potassium measurement (moles/volume) 4.2 mmol/L 3.6-5.0 Serum or plasma chloride measurement (moles/volume) 99 mmol/L 98-107 Carbon dioxide 16 mmol/L 21-32 Serum or plasma anion gap determination (moles/volume) 9 mmol/L 5-14 Serum or plasma urea nitrogen measurement (mass/volume ) 30 mg/dL 7-18 Serum or plasma creatinine measurement (mass/volume) 1.64 mg/dL 0.60-1.30 Serum or plasma urea nitrogen/creatinine mass ratio 18 NRG Serum or plasma creatinine measurement w ith calculation of estimated glomerular filtration rate 30 NRG Serum or plasma glucose measurement (mass/volume) 273 mg/dL 70-105 Serum or plasma calcium measurement (mass/volume) 8.7 mg/dL 8.5-10.1 Capillary blood glucose measurement by g lucometer (mass/volume) - 03/23/18 06:19 Capillary blood glucose measurement by glucometer (mas s/volume) 284 mg/dL 70-110 Capillary blood glucose measurement by g lucometer (mass/volume) - 03/23/18 11:18 Capillary blood glucose measurement by glucometer (mas s/volume) 276 mg/dL 70-110 Capillary blood glucose measurement by g lucometer (mass/volume) - 03/23/18 16:37 Capillary blood glucose measurement by glucometer (mas s/volume) 199 mg/dL 70-110 Capillary blood glucose measurement by g lucometer (mass/volume) - 03/23/18 20:18 Capillary blood glucose measurement by glucometer (mas s/volume) 228 mg/dL 70-110 Capillary blood glucose measurement by g lucometer (mass/volume) - 03/24/18 05:33 Capillary blood glucose measurement by glucometer (mas s/volume) 176 mg/dL 70-110 Whole blood basic metabolic panel - 02/26 03/14 11:25 Serum or plasma sodium measurement (moles/volume) 132 mmol/L 135-145 Serum or plasma potassium measurement (moles/volume) 4.9 mmol/L 3.6-5.0 Serum or plasma chloride measurement (moles/volume) 105 mmol/L 98-107 Carbon dioxide 16 mmol/L 21-32 Serum or plasma anion gap determination (moles/volume) 11 mmol/L 5-14 Serum or plasma urea nitrogen measurement (mass/volume ) 17 mg/dL 7-18 Serum or plasma creatinine measurement (mass/volume) 1.20 mg/dL 0.60-1.30 Serum or plasma urea nitrogen/creatinine mass ratio 14 NRG Serum or plasma creatinine measurement w ith calculation of estimated glomerular filtration rate 43 NRG Serum or plasma glucose measurement (mass/volume) 194 mg/dL 70-105 Serum or plasma calcium measurement (mass/volume) 10.0 mg/dL 8.5-10.1 Capillary blood glucose measurement by g lucometer (mass/volume) - 03/24/18 11:44 Capillary blood glucose measurement by glucometer (mas s/volume) 197 mg/dL 70-110 Capillary blood glucose measurement by g lucometer (mass/volume) - 03/24/18 15:31 Capillary blood glucose measurement by glucometer (mas s/volume) 222 mg/dL 70-110 Capillary blood glucose measurement by g lucometer (mass/volume) - 03/24/18 20:20 Capillary blood glucose measurement by glucometer (mas s/volume) 150 mg/dL 70-110 Complete blood count (CBC) with automate d white blood cell (WBC) differential - 03/26/18 05:20 Blood leukocytes automated count (number/volume) 9.0 10*3/uL 4.3-11.0 Blood erythrocytes automated count (number/volume) 2.94 10*6/uL 4.35-5.85 Venous blood hemoglobin measurement (mass/volume) 8.0 g/dL 11.5-16.0 Blood hematocrit (volume fraction) 24 % 35-52 Automated erythrocyte mean corpuscular volume 83 [ foz_us] 80-99 Automated erythrocyte mean corpuscular h emoglobin (mass per erythrocyte) 27 pg 25-34 Automated erythrocyte mean corpuscular h emoglobin concentration measurement (mass/volume) 33 g/dL 32-36 Automated erythrocyte distribution width ratio 19. 3 % 10.0- 14.5 Automated blood platelet count (count/volume) 219 10*3/uL 130-400 Automated blood platelet mean volume measurement 9.3 [foz_us] 7.4-10.4 Automated blood neutrophils/100 leukocytes 71 % 42-75 Automated blood lymphocytes/100 leukocytes 15 % 12-44 Blood monocytes/100 leukocytes 9 % 0-12 Automated blood eosinophils/100 leukocytes 5 % 0-10 Automated blood basophils/100 leukocytes 0 % 0-10 Blood neutrophils automated count (number/volume) 6.4 10*3 1.8-7.8 Blood lymphocytes automated count (number/volume) 1.4 10*3 1.0-4.0 Blood monocytes automated count (number/volume) 0. 8 10*3 0.0-1.0 Automated eosinophil count 0.5 10*3/uL 0 .0-0.3 Automated blood basophil count (count/volume) 0.0 10*3/uL 0.0-0.1 Comprehensive metabolic panel - 03/26/18 05:20 Serum or plasma sodium measurement (moles/volume) 135 mmol/L 135-145 Serum or plasma potassium measurement (moles/volume) 4.6 mmol/L 3.6-5.0 Serum or plasma chloride measurement (moles/volume) 104 mmol/L 98-107 Carbon dioxide 20 mmol/L 21-32 Serum or plasma anion gap determination (moles/volume) 11 mmol/L 5-14 Serum or plasma urea nitrogen measurement (mass/volume ) 19 mg/dL 7-18 Serum or plasma creatinine measurement (mass/volume) 1.18 mg/dL 0.60-1.30 Serum or plasma urea nitrogen/creatinine mass ratio 16 NRG Serum or plasma creatinine measurement w ith calculation of estimated glomerular filtration rate 44 NRG Serum or plasma glucose measurement (mass/volume) 75 mg/dL 70-105 Serum or plasma calcium measurement (mass/volume) 9.9 mg/dL 8.5-10.1 Serum or plasma total bilirubin measurement (mass/volu me) 0.5 mg/dL 0.1-1.0 Serum or plasma alkaline phosphatase josie surement (enzymatic activity/volume) 201 U/L 40-136 Serum or plasma aspartate aminotransfera se measurement (enzymatic activity/volume) 66 U/L 5-34 Serum or plasma alanine aminotransferase measurement (enzymatic activity/volume) 88 U/L 0-55 Serum or plasma protein measurement (mass/volume) 6.6 g/dL 6.4-8.2 Serum or plasma albumin measurement (mass/volume) 3.5 g/dL 3.2-4.5 CALCIUM CORRECTED 10.3 mg/dL 8.5-10.1 Capillary blood glucose measurement by g lucometer (mass/volume) - 03/26/18 05:29 Capillary blood glucose measurement by glucometer (mas s/volume) 90 mg/dL 70-110 Capillary blood glucose measurement by g lucometer (mass/volume) - 03/26/18 11:12 Capillary blood glucose measurement by glucometer (mas s/volume) 186 mg/dL 70-110 Bacteria identification in isolate by an aerobe culture - 04/03/18 10:07 Bacteria identification in isolate by anaerobe culture MARIAA BANNER Gram stain microscopy - 04/03/18 10:07 Gram stain microscopy REPORTED 04-04-2018, 0606. NRG Bacteria identification in wound by cult ure - 04/03/18 10:07 Bacteria identification in wound by culture [id number] NR FREE TEXT EXTERNAL RML REPORTED SENSITIVITY04/06/18 11:05 NRG QUANTITY OF GROWTH Rare BANNER RML Sensitivity Panel - 04/03/18 10:07 Oxacillin susceptibility test by minimum inhibitory co ncentration <= NRG Clindamycin susceptibility test by minimum inhibitory concentration <= NRG Erythromycin susceptibility test by minimum inhibitory concentration <= NRG Vancomycin susceptibility test by minimum inhibitory c oncentration 1 NRG Levofloxacin susceptibility test by minimum inhibitory concentration S NRG Rifampin susceptibility test by minimum inhibitory con centration <= NRG Cefazolin susceptibility test by minimum inhibitory co ncentration <= NRG Linezolid susceptibility test by minimum inhibitory co ncentration <= NRG Penicillin G susceptibility test by minimum inhibitory concentration 0.25 NRG Moxifloxacin susceptibility test by minimum inhibitory concentration S NRG Minocycline susc KAROLYN <= NRG Methicillin resistant Staphylococcus aur eus (MRSA) screening culture - 04/24/18 09:09 Methicillin resistant Staphylococcus aureus (MRSA) scr eening culture NEG NRG Automated blood complete blood count (he mogram) panel - 04/24/18 09:28 Blood leukocytes automated count (number/volume) 6.3 10*3/uL 4.3-11.0 Blood erythrocytes automated count (number/volume) 2.35 10*6/uL 4.35-5.85 Venous blood hemoglobin measurement (mass/volume) 6.2 g/dL 11.5-16.0 Blood hematocrit (volume fraction) 20 % 35-52 Automated erythrocyte mean corpuscular volume 83 [ foz_us] 80-99 Automated erythrocyte mean corpuscular h emoglobin (mass per erythrocyte) 26 pg 25-34 Automated erythrocyte mean corpuscular h emoglobin concentration measurement (mass/volume) 32 g/dL 32-36 Automated erythrocyte distribution width ratio 17. 9 % 10.0- 14.5 Automated blood platelet count (count/volume) 169 10*3/uL 130-400 Automated blood platelet mean volume measurement 9.2 [foz_us] 7.4-10.4 PT panel in platelet poor plasma by coag ulation assay - 04/24/18 09:28 Prothrombin time (PT) in platelet poor plasma by coagu lation assay 16.5 s 12.2-14.7 INR in platelet poor plasma or blood by coagulation as say 1.3 0.8-1.4 Activated partial thromboplastin time (a PTT) in platelet poor plasma bycoagulation assay - 04/24/18 09:28 Activated partial thromboplastin time (a PTT) in platelet poor plasma bycoagulation assay 37 s 24-35 Comprehensive metabolic panel - 04/24/18 09:28 Serum or plasma sodium measurement (moles/volume) 134 mmol/L 135-145 Serum or plasma potassium measurement (moles/volume) 4.3 mmol/L 3.6-5.0 Serum or plasma chloride measurement (moles/volume) 107 mmol/L 98-107 Carbon dioxide 19 mmol/L 21-32 Serum or plasma anion gap determination (moles/volume) 8 mmol/L 5-14 Serum or plasma urea nitrogen measurement (mass/volume ) 23 mg/dL 7-18 Serum or plasma creatinine measurement (mass/volume) 1.50 mg/dL 0.60-1.30 Serum or plasma urea nitrogen/creatinine mass ratio 15 NRG Serum or plasma creatinine measurement w ith calculation of estimated glomerular filtration rate 33 NRG Serum or plasma glucose measurement (mass/volume) 121 mg/dL 70-105 Serum or plasma calcium measurement (mass/volume) 9.7 mg/dL 8.5-10.1 Serum or plasma total bilirubin measurement (mass/volu me) 0.6 mg/dL 0.1-1.0 Serum or plasma alkaline phosphatase josie surement (enzymatic activity/volume) 163 U/L 40-136 Serum or plasma aspartate aminotransfera se measurement (enzymatic activity/volume) 34 U/L 5-34 Serum or plasma alanine aminotransferase measurement (enzymatic activity/volume) 36 U/L 0-55 Serum or plasma protein measurement (mass/volume) 6.6 g/dL 6.4-8.2 Serum or plasma albumin measurement (mass/volume) 3.3 g/dL 3.2-4.5 CALCIUM CORRECTED 10.3 mg/dL 8.5-10.1 Lipid 1996 panel - 04/24/18 09:28 Serum or plasma triglyceride measurement (mass/volume) 59 mg/dL <150 Serum or plasma cholesterol measurement (mass/volume) 78 mg/dL < 200 Serum or plasma cholesterol in HDL measurement (mass/v olume) 36 mg/dL 40-60 Cholesterol in LDL [mass/volume] in serum or plasma by direct assay 21 mg/dL 1-129 Serum or plasma cholesterol in VLDL measurement (mass/ volume) 12 mg/dL 5-40 RED CELLS LEUKO REDUCED AS1 - 04/24/18 1 0:10 RED CELLS LEUKO REDUCED AS1 T RANSFUSED 04/25/18 1311 NRG Blood type T Indirect antibody screen pa laurent - 04/24/18 10:10 ABO+Rh group OP NRG Transfusion band number [id number] NRG Blood group antibody screen NEGATIVE NR G Capillary blood glucose measurement by g lucometer (mass/volume) - 04/24/18 16:04 Capillary blood glucose measurement by glucometer (mas s/volume) 183 mg/dL 70-110 Capillary blood glucose measurement by g lucometer (mass/volume) - 04/24/18 20:15 Capillary blood glucose measurement by glucometer (mas s/volume) 172 mg/dL 70-110 Automated blood complete blood count (he mogram) panel - 04/25/18 05:42 Blood leukocytes automated count (number/volume) 6.7 10*3/uL 4.3-11.0 Blood erythrocytes automated count (number/volume) 3.07 10*6/uL 4.35-5.85 Venous blood hemoglobin measurement (mass/volume) 8.0 g/dL 11.5-16.0 Blood hematocrit (volume fraction) 26 % 35-52 Automated erythrocyte mean corpuscular volume 83 [ foz_us] 80-99 Automated erythrocyte mean corpuscular h emoglobin (mass per erythrocyte) 26 pg 25-34 Automated erythrocyte mean corpuscular h emoglobin concentration measurement (mass/volume) 31 g/dL 32-36 Automated erythrocyte distribution width ratio 17. 9 % 10.0- 14.5 Automated blood platelet count (count/volume) 182 10*3/uL 130-400 Automated blood platelet mean volume measurement 8.6 [foz_us] 7.4-10.4 Whole blood basic metabolic panel - 03/29 04/14 05:42 Serum or plasma sodium measurement (moles/volume) 139 mmol/L 135-145 Serum or plasma potassium measurement (moles/volume) 4.3 mmol/L 3.6-5.0 Serum or plasma chloride measurement (moles/volume) 112 mmol/L 98-107 Carbon dioxide 17 mmol/L 21-32 Serum or plasma anion gap determination (moles/volume) 10 mmol/L 5-14 Serum or plasma urea nitrogen measurement (mass/volume ) 17 mg/dL 7-18 Serum or plasma creatinine measurement (mass/volume) 1.10 mg/dL 0.60-1.30 Serum or plasma urea nitrogen/creatinine mass ratio 15 NRG Serum or plasma creatinine measurement w ith calculation of estimated glomerular filtration rate 47 NRG Serum or plasma glucose measurement (mass/volume) 102 mg/dL 70-105 Serum or plasma calcium measurement (mass/volume) 9.7 mg/dL 8.5-10.1 Capillary blood glucose measurement by g lucometer (mass/volume) - 04/25/18 06:07 Capillary blood glucose measurement by glucometer (mas s/volume) 110 mg/dL 70-110 Capillary blood glucose measurement by g lucometer (mass/volume) - 04/25/18 11:54 Capillary blood glucose measurement by glucometer (mas s/volume) 131 mg/dL 70-110 Capillary blood glucose measurement by g lucometer (mass/volume) - 04/25/18 15:36 Capillary blood glucose measurement by glucometer (mas s/volume) 223 mg/dL 70-110 Capillary blood glucose measurement by g lucometer (mass/volume) - 04/25/18 20:20 Capillary blood glucose measurement by glucometer (mas s/volume) 172 mg/dL 70-110 Capillary blood glucose measurement by g lucometer (mass/volume) - 04/26/18 05:15 Capillary blood glucose measurement by glucometer (mas s/volume) 121 mg/dL 70-110 Automated blood complete blood count (he mogram) panel - 04/26/18 05:35 Blood leukocytes automated count (number/volume) 7.5 10*3/uL 4.3-11.0 Blood erythrocytes automated count (number/volume) 3.41 10*6/uL 4.35-5.85 Venous blood hemoglobin measurement (mass/volume) 9.2 g/dL 11.5-16.0 Blood hematocrit (volume fraction) 29 % 35-52 Automated erythrocyte mean corpuscular volume 84 [ foz_us] 80-99 Automated erythrocyte mean corpuscular h emoglobin (mass per erythrocyte) 27 pg 25-34 Automated erythrocyte mean corpuscular h emoglobin concentration measurement (mass/volume) 32 g/dL 32-36 Automated erythrocyte distribution width ratio 17. 8 % 10.0- 14.5 Automated blood platelet count (count/volume) 180 10*3/uL 130-400 Automated blood platelet mean volume measurement 9.2 [foz_us] 7.4-10.4 Whole blood basic metabolic panel - 03/30 05:35 Serum or plasma sodium measurement (moles/volume) 137 mmol/L 135-145 Serum or plasma potassium measurement (moles/volume) 4.1 mmol/L 3.6-5.0 Serum or plasma chloride measurement (moles/volume) 111 mmol/L 98-107 Carbon dioxide 16 mmol/L 21-32 Serum or plasma anion gap determination (moles/volume) 10 mmol/L 5-14 Serum or plasma urea nitrogen measurement (mass/volume ) 14 mg/dL 7-18 Serum or plasma creatinine measurement (mass/volume) 1.04 mg/dL 0.60-1.30 Serum or plasma urea nitrogen/creatinine mass ratio 13 NRG Serum or plasma creatinine measurement w ith calculation of estimated glomerular filtration rate 50 NRG Serum or plasma glucose measurement (mass/volume) 109 mg/dL 70-105 Serum or plasma calcium measurement (mass/volume) 9.7 mg/dL 8.5-10.1 Capillary blood glucose measurement by g lucometer (mass/volume) - 05/04/18 17:43 Capillary blood glucose measurement by glucometer (mas s/volume) 197 mg/dL 70-110 Methicillin resistant Staphylococcus aur eus (MRSA) screening culture - 05/04/18 17:45 Methicillin resistant Staphylococcus aureus (MRSA) scr eening culture NEG NRG Complete blood count (CBC) with automate d white blood cell (WBC) differential - 05/04/18 19:40 Blood leukocytes automated count (number/volume) 11.0 10*3/uL 4.3-11.0 Blood erythrocytes automated count (number/volume) 3.24 10*6/uL 4.35-5.85 Venous blood hemoglobin measurement (mass/volume) 8.8 g/dL 11.5-16.0 Blood hematocrit (volume fraction) 27 % 35-52 Automated erythrocyte mean corpuscular volume 84 [ foz_us] 80-99 Automated erythrocyte mean corpuscular h emoglobin (mass per erythrocyte) 27 pg 25-34 Automated erythrocyte mean corpuscular h emoglobin concentration measurement (mass/volume) 32 g/dL 32-36 Automated erythrocyte distribution width ratio 17. 6 % 10.0- 14.5 Automated blood platelet count (count/volume) 197 10*3/uL 130-400 Automated blood platelet mean volume measurement 9.5 [foz_us] 7.4-10.4 Automated blood neutrophils/100 leukocytes 62 % 42-75 Automated blood lymphocytes/100 leukocytes 27 % 12-44 Blood monocytes/100 leukocytes 8 % 0-12 Automated blood eosinophils/100 leukocytes 3 % 0-10 Automated blood basophils/100 leukocytes 1 % 0-10 Blood neutrophils automated count (number/volume) 6.8 10*3 1.8-7.8 Blood lymphocytes automated count (number/volume) 3.0 10*3 1.0-4.0 Blood monocytes automated count (number/volume) 0. 8 10*3 0.0-1.0 Automated eosinophil count 0.3 10*3/uL 0 .0-0.3 Automated blood basophil count (count/volume) 0.1 10*3/uL 0.0-0.1 Whole blood basic metabolic panel - 03/14 19:40 Serum or plasma sodium measurement (moles/volume) 135 mmol/L 135-145 Serum or plasma potassium measurement (moles/volume) 4.0 mmol/L 3.6-5.0 Serum or plasma chloride measurement (moles/volume) 105 mmol/L 98-107 Carbon dioxide 18 mmol/L 21-32 Serum or plasma anion gap determination (moles/volume) 12 mmol/L 5-14 Serum or plasma urea nitrogen measurement (mass/volume ) 23 mg/dL 7-18 Serum or plasma creatinine measurement (mass/volume) 1.33 mg/dL 0.60-1.30 Serum or plasma urea nitrogen/creatinine mass ratio 17 NRG Serum or plasma creatinine measurement w ith calculation of estimated glomerular filtration rate 38 NRG Serum or plasma glucose measurement (mass/volume) 160 mg/dL 70-105 Serum or plasma calcium measurement (mass/volume) 10.0 mg/dL 8.5-10.1 Bacterial blood culture - 05/04/18 19:40 Bacterial blood culture NG NRG Bacterial blood culture - 05/04/18 19:45 Bacterial blood culture NG NRG Capillary blood glucose measurement by g lucometer (mass/volume) - 05/04/18 20:37 Capillary blood glucose measurement by glucometer (mas s/volume) 179 mg/dL 70-110 Complete blood count (CBC) with automate d white blood cell (WBC) differential - 05/05/18 05:49 Blood leukocytes automated count (number/volume) 7.3 10*3/uL 4.3-11.0 Blood erythrocytes automated count (number/volume) 2.90 10*6/uL 4.35-5.85 Venous blood hemoglobin measurement (mass/volume) 7.6 g/dL 11.5-16.0 Blood hematocrit (volume fraction) 24 % 35-52 Automated erythrocyte mean corpuscular volume 84 [ foz_us] 80-99 Automated erythrocyte mean corpuscular h emoglobin (mass per erythrocyte) 26 pg 25-34 Automated erythrocyte mean corpuscular h emoglobin concentration measurement (mass/volume) 31 g/dL 32-36 Automated erythrocyte distribution width ratio 17. 7 % 10.0- 14.5 Automated blood platelet count (count/volume) 176 10*3/uL 130-400 Automated blood platelet mean volume measurement 9.6 [foz_us] 7.4-10.4 Automated blood neutrophils/100 leukocytes 61 % 42-75 Automated blood lymphocytes/100 leukocytes 28 % 12-44 Blood monocytes/100 leukocytes 8 % 0-12 Automated blood eosinophils/100 leukocytes 4 % 0-10 Automated blood basophils/100 leukocytes 0 % 0-10 Blood neutrophils automated count (number/volume) 4.4 10*3 1.8-7.8 Blood lymphocytes automated count (number/volume) 2.0 10*3 1.0-4.0 Blood monocytes automated count (number/volume) 0. 6 10*3 0.0-1.0 Automated eosinophil count 0.3 10*3/uL 0 .0-0.3 Automated blood basophil count (count/volume) 0.0 10*3/uL 0.0-0.1 PT panel in platelet poor plasma by coag ulation assay - 05/05/18 05:49 Prothrombin time (PT) in platelet poor plasma by coagu lation assay 16.0 s 12.2-14.7 INR in platelet poor plasma or blood by coagulation as say 1.3 0.8-1.4 Whole blood basic metabolic panel - 04/14 05:49 Serum or plasma sodium measurement (moles/volume) 135 mmol/L 135-145 Serum or plasma potassium measurement (moles/volume) 3.7 mmol/L 3.6-5.0 Serum or plasma chloride measurement (moles/volume) 108 mmol/L 98-107 Carbon dioxide 18 mmol/L 21-32 Serum or plasma anion gap determination (moles/volume) 9 mmol/L 5-14 Serum or plasma urea nitrogen measurement (mass/volume ) 21 mg/dL 7-18 Serum or plasma creatinine measurement (mass/volume) 1.09 mg/dL 0.60-1.30 Serum or plasma urea nitrogen/creatinine mass ratio 19 NRG Serum or plasma creatinine measurement w ith calculation of estimated glomerular filtration rate 48 NRG Serum or plasma glucose measurement (mass/volume) 140 mg/dL 70-105 Serum or plasma calcium measurement (mass/volume) 9.6 mg/dL 8.5-10.1 Capillary blood glucose measurement by g lucometer (mass/volume) - 05/05/18 06:14 Capillary blood glucose measurement by glucometer (mas s/volume) 138 mg/dL 70-110 Capillary blood glucose measurement by g lucometer (mass/volume) - 05/05/18 09:25 Capillary blood glucose measurement by glucometer (mas s/volume) 147 mg/dL 70-110 Capillary blood glucose measurement by g lucometer (mass/volume) - 05/05/18 11:00 Capillary blood glucose measurement by glucometer (mas s/volume) 182 mg/dL 70-110 RED CELLS LEUKO REDUCED AS1 - 05/05/18 1 1:10 RED CELLS LEUKO REDUCED AS1 T RANSFUSED 05/05/18 1234 NR Blood type T Indirect antibody screen pa laurent - 05/05/18 11:10 ABO+Rh group OP NR Transfusion band number [id number] NR Blood group antibody screen NEGATIVE NR Capillary blood glucose measurement by g lucometer (mass/volume) - 05/05/18 15:57 Capillary blood glucose measurement by glucometer (mas s/volume) 303 mg/dL 70-110 Capillary blood glucose measurement by g lucometer (mass/volume) - 05/05/18 21:01 Capillary blood glucose measurement by glucometer (mas s/volume) 237 mg/dL 70-110 Capillary blood glucose measurement by g lucometer (mass/volume) - 05/06/18 05:16 Capillary blood glucose measurement by glucometer (mas s/volume) 109 mg/dL 70-110 Complete blood count (CBC) with automate d white blood cell (WBC) differential - 05/06/18 10:15 Blood leukocytes automated count (number/volume) 7.8 10*3/uL 4.3-11.0 Blood erythrocytes automated count (number/volume) 3.61 10*6/uL 4.35-5.85 Venous blood hemoglobin measurement (mass/volume) 9.7 g/dL 11.5-16.0 Blood hematocrit (volume fraction) 30 % 35-52 Automated erythrocyte mean corpuscular volume 83 [ foz_us] 80-99 Automated erythrocyte mean corpuscular h emoglobin (mass per erythrocyte) 27 pg 25-34 Automated erythrocyte mean corpuscular h emoglobin concentration measurement (mass/volume) 32 g/dL 32-36 Automated erythrocyte distribution width ratio 17. 8 % 10.0- 14.5 Automated blood platelet count (count/volume) 193 10*3/uL 130-400 Automated blood platelet mean volume measurement 9.3 [foz_us] 7.4-10.4 Automated blood neutrophils/100 leukocytes 67 % 42-75 Automated blood lymphocytes/100 leukocytes 23 % 12-44 Blood monocytes/100 leukocytes 6 % 0-12 Automated blood eosinophils/100 leukocytes 4 % 0-10 Automated blood basophils/100 leukocytes 1 % 0-10 Blood neutrophils automated count (number/volume) 5.2 10*3 1.8-7.8 Blood lymphocytes automated count (number/volume) 1.8 10*3 1.0-4.0 Blood monocytes automated count (number/volume) 0. 5 10*3 0.0-1.0 Automated eosinophil count 0.3 10*3/uL 0 .0-0.3 Automated blood basophil count (count/volume) 0.0 10*3/uL 0.0-0.1 Capillary blood glucose measurement by g lucometer (mass/volume) - 05/06/18 10:56 Capillary blood glucose measurement by glucometer (mas s/volume) 138 mg/dL 70-110 Capillary blood glucose measurement by g lucometer (mass/volume) - 05/06/18 16:20 Capillary blood glucose measurement by glucometer (mas s/volume) 225 mg/dL 70-110 Methicillin resistant Staphylococcus aur eus (MRSA) screening culture - 05/13/18 16:15 Methicillin resistant Staphylococcus aureus (MRSA) scr eening culture NEG NRG Capillary blood glucose measurement by g lucometer (mass/volume) - 05/19/18 12:13 Capillary blood glucose measurement by glucometer (mas s/volume) 193 mg/dL 70-110 RED CELLS LEUKO REDUCED AS1 - 05/19/18 1 2:35 RED CELLS LEUKO REDUCED AS1 T RANSFUSED 05/20/18 1120 NRG Blood type T Indirect antibody screen pa laurent - 05/19/18 12:35 ABO+Rh group OP NRG Transfusion band number [id number] NRG Blood group antibody screen NEGATIVE NR G Automated blood complete blood count (he mogram) panel - 05/20/18 05:17 Blood leukocytes automated count (number/volume) 9.8 10*3/uL 4.3-11.0 Blood erythrocytes automated count (number/volume) 2.23 10*6/uL 4.35-5.85 Venous blood hemoglobin measurement (mass/volume) 6.0 g/dL 11.5-16.0 Blood hematocrit (volume fraction) 19 % 35-52 Automated erythrocyte mean corpuscular volume 86 [ foz_us] 80-99 Automated erythrocyte mean corpuscular h emoglobin (mass per erythrocyte) 27 pg 25-34 Automated erythrocyte mean corpuscular h emoglobin concentration measurement (mass/volume) 31 g/dL 32-36 Automated erythrocyte distribution width ratio 18. 6 % 10.0- 14.5 Automated blood platelet count (count/volume) 138 10*3/uL 130-400 Automated blood platelet mean volume measurement 9.6 [foz_us] 7.4-10.4 Whole blood basic metabolic panel - 04/28 11/12 05:17 Serum or plasma sodium measurement (moles/volume) 131 mmol/L 135-145 Serum or plasma potassium measurement (moles/volume) 4.2 mmol/L 3.6-5.0 Serum or plasma chloride measurement (moles/volume) 102 mmol/L 98-107 Carbon dioxide 20 mmol/L 21-32 Serum or plasma anion gap determination (moles/volume) 9 mmol/L 5-14 Serum or plasma urea nitrogen measurement (mass/volume ) 14 mg/dL 7-18 Serum or plasma creatinine measurement (mass/volume) 1.15 mg/dL 0.60-1.30 Serum or plasma urea nitrogen/creatinine mass ratio 12 NRG Serum or plasma creatinine measurement w ith calculation of estimated glomerular filtration rate 45 NRG Serum or plasma glucose measurement (mass/volume) 223 mg/dL 70-105 Serum or plasma calcium measurement (mass/volume) 8.8 mg/dL 8.5-10.1 Capillary blood glucose measurement by g lucometer (mass/volume) - 05/20/18 15:43 Capillary blood glucose measurement by glucometer (mas s/volume) 297 mg/dL 70-110 Capillary blood glucose measurement by g lucometer (mass/volume) - 05/20/18 20:17 Capillary blood glucose measurement by glucometer (mas s/volume) 276 mg/dL 70-110 Capillary blood glucose measurement by g lucometer (mass/volume) - 05/21/18 05:22 Capillary blood glucose measurement by glucometer (mas s/volume) 209 mg/dL 70-110 Automated blood complete blood count (he mogram) panel - 05/21/18 05:30 Blood leukocytes automated count (number/volume) 8.0 10*3/uL 4.3-11.0 Blood erythrocytes automated count (number/volume) 2.98 10*6/uL 4.35-5.85 Venous blood hemoglobin measurement (mass/volume) 8.2 g/dL 11.5-16.0 Blood hematocrit (volume fraction) 26 % 35-52 Automated erythrocyte mean corpuscular volume 86 [ foz_us] 80-99 Automated erythrocyte mean corpuscular h emoglobin (mass per erythrocyte) 28 pg 25-34 Automated erythrocyte mean corpuscular h emoglobin concentration measurement (mass/volume) 32 g/dL 32-36 Automated erythrocyte distribution width ratio 17. 1 % 10.0- 14.5 Automated blood platelet count (count/volume) 124 10*3/uL 130-400 Automated blood platelet mean volume measurement 9.5 [foz_us] 7.4-10.4 Whole blood basic metabolic panel - 04/28 12/12 05:30 Serum or plasma sodium measurement (moles/volume) 134 mmol/L 135-145 Serum or plasma potassium measurement (moles/volume) 4.0 mmol/L 3.6-5.0 Serum or plasma chloride measurement (moles/volume) 102 mmol/L 98-107 Carbon dioxide 20 mmol/L 21-32 Serum or plasma anion gap determination (moles/volume) 12 mmol/L 5-14 Serum or plasma urea nitrogen measurement (mass/volume ) 13 mg/dL 7-18 Serum or plasma creatinine measurement (mass/volume) 1.10 mg/dL 0.60-1.30 Serum or plasma urea nitrogen/creatinine mass ratio 12 NRG Serum or plasma creatinine measurement w ith calculation of estimated glomerular filtration rate 47 NRG Serum or plasma glucose measurement (mass/volume) 167 mg/dL 70-105 Serum or plasma calcium measurement (mass/volume) 9.5 mg/dL 8.5-10.1 Capillary blood glucose measurement by g lucometer (mass/volume) - 05/21/18 10:35 Capillary blood glucose measurement by glucometer (mas s/volume) 257 mg/dL 70-110 Capillary blood glucose measurement by g lucometer (mass/volume) - 05/21/18 15:43 Capillary blood glucose measurement by glucometer (mas s/volume) 146 mg/dL 70-110 Capillary blood glucose measurement by g lucometer (mass/volume) - 05/21/18 20:21 Capillary blood glucose measurement by glucometer (mas s/volume) 223 mg/dL 70-110 Capillary blood glucose measurement by g lucometer (mass/volume) - 05/22/18 04:53 Capillary blood glucose measurement by glucometer (mas s/volume) 108 mg/dL 70-110 Capillary blood glucose measurement by g lucometer (mass/volume) - 05/22/18 11:08 Capillary blood glucose measurement by glucometer (mas s/volume) 188 mg/dL 70-110 Capillary blood glucose measurement by g lucometer (mass/volume) - 05/22/18 15:48 Capillary blood glucose measurement by glucometer (mas s/volume) 236 mg/dL 70-110 Capillary blood glucose measurement by g lucometer (mass/volume) - 05/22/18 20:58 Capillary blood glucose measurement by glucometer (mas s/volume) 174 mg/dL 70-110 Capillary blood glucose measurement by g lucometer (mass/volume) - 05/23/18 06:28 Capillary blood glucose measurement by glucometer (mas s/volume) 132 mg/dL 70-110 Capillary blood glucose measurement by g lucometer (mass/volume) - 05/23/18 11:46 Capillary blood glucose measurement by glucometer (mas s/volume) 220 mg/dL 70-110 Capillary blood glucose measurement by g lucometer (mass/volume) - 05/23/18 15:53 Capillary blood glucose measurement by glucometer (mas s/volume) 153 mg/dL 70-110 Capillary blood glucose measurement by g lucometer (mass/volume) - 05/23/18 20:43 Capillary blood glucose measurement by glucometer (mas s/volume) 220 mg/dL 70-110 Capillary blood glucose measurement by g lucometer (mass/volume) - 05/24/18 05:35 Capillary blood glucose measurement by glucometer (mas s/volume) 122 mg/dL 70-110 Capillary blood glucose measurement by g lucometer (mass/volume) - 05/24/18 11:25 Capillary blood glucose measurement by glucometer (mas s/volume) 215 mg/dL 70-110 Capillary blood glucose measurement by g lucometer (mass/volume) - 05/24/18 15:48 Capillary blood glucose measurement by glucometer (mas s/volume) 166 mg/dL 70-110 Capillary blood glucose measurement by g lucometer (mass/volume) - 05/24/18 21:02 Capillary blood glucose measurement by glucometer (mas s/volume) 260 mg/dL 70-110 Capillary blood glucose measurement by g lucometer (mass/volume) - 05/25/18 05:38 Capillary blood glucose measurement by glucometer (mas s/volume) 160 mg/dL 70-110 Automated blood complete blood count (he mogram) panel - 05/25/18 07:47 Blood leukocytes automated count (number/volume) 12.6 10*3/uL 4.3-11.0 Blood erythrocytes automated count (number/volume) 3.11 10*6/uL 4.35-5.85 Venous blood hemoglobin measurement (mass/volume) 8.6 g/dL 11.5-16.0 Blood hematocrit (volume fraction) 27 % 35-52 Automated erythrocyte mean corpuscular volume 86 [ foz_us] 80-99 Automated erythrocyte mean corpuscular h emoglobin (mass per erythrocyte) 28 pg 25-34 Automated erythrocyte mean corpuscular h emoglobin concentration measurement (mass/volume) 32 g/dL 32-36 Automated erythrocyte distribution width ratio 17. 1 % 10.0- 14.5 Automated blood platelet count (count/volume) 179 10*3/uL 130-400 Automated blood platelet mean volume measurement 9.3 [foz_us] 7.4-10.4 Whole blood basic metabolic panel - 04/28 04/14 07:47 Serum or plasma sodium measurement (moles/volume) 133 mmol/L 135-145 Serum or plasma potassium measurement (moles/volume) 4.3 mmol/L 3.6-5.0 Serum or plasma chloride measurement (moles/volume) 99 mmol/L 98-107 Carbon dioxide 22 mmol/L 21-32 Serum or plasma anion gap determination (moles/volume) 12 mmol/L 5-14 Serum or plasma urea nitrogen measurement (mass/volume ) 22 mg/dL 7-18 Serum or plasma creatinine measurement (mass/volume) 1.29 mg/dL 0.60-1.30 Serum or plasma urea nitrogen/creatinine mass ratio 17 NRG Serum or plasma creatinine measurement w ith calculation of estimated glomerular filtration rate 39 NRG Serum or plasma glucose measurement (mass/volume) 174 mg/dL 70-105 Serum or plasma calcium measurement (mass/volume) 10.1 mg/dL 8.5-10.1 Capillary blood glucose measurement by g lucometer (mass/volume) - 05/25/18 12:35 Capillary blood glucose measurement by glucometer (mas s/volume) 166 mg/dL 70-110 Capillary blood glucose measurement by g lucometer (mass/volume) - 05/25/18 16:58 Capillary blood glucose measurement by glucometer (mas s/volume) 176 mg/dL 70-110 Capillary blood glucose measurement by g lucometer (mass/volume) - 05/25/18 21:34 Capillary blood glucose measurement by glucometer (mas s/volume) 243 mg/dL 70-110 Capillary blood glucose measurement by g lucometer (mass/volume) - 05/26/18 05:45 Capillary blood glucose measurement by glucometer (mas s/volume) 155 mg/dL 70-110 Capillary blood glucose measurement by g lucometer (mass/volume) - 05/26/18 10:54 Capillary blood glucose measurement by glucometer (mas s/volume) 207 mg/dL 70-110 Capillary blood glucose measurement by g lucometer (mass/volume) - 05/26/18 16:20 Capillary blood glucose measurement by glucometer (mas s/volume) 140 mg/dL 70-110 Capillary blood glucose measurement by g lucometer (mass/volume) - 05/26/18 20:46 Capillary blood glucose measurement by glucometer (mas s/volume) 204 mg/dL 70-110 Capillary blood glucose measurement by g lucometer (mass/volume) - 05/27/18 06:24 Capillary blood glucose measurement by glucometer (mas s/volume) 146 mg/dL 70-110 Capillary blood glucose measurement by g lucometer (mass/volume) - 05/27/18 11:02 Capillary blood glucose measurement by glucometer (mas s/volume) 194 mg/dL 70-110 Capillary blood glucose measurement by g lucometer (mass/volume) - 05/27/18 16:03 Capillary blood glucose measurement by glucometer (mas s/volume) 180 mg/dL 70-110 Capillary blood glucose measurement by g lucometer (mass/volume) - 05/27/18 20:36 Capillary blood glucose measurement by glucometer (mas s/volume) 255 mg/dL 70-110 Capillary blood glucose measurement by g lucometer (mass/volume) - 05/28/18 05:32 Capillary blood glucose measurement by glucometer (mas s/volume) 116 mg/dL 70-110 Capillary blood glucose measurement by g lucometer (mass/volume) - 05/28/18 11:50 Capillary blood glucose measurement by glucometer (mas s/volume) 164 mg/dL 70-110 Capillary blood glucose measurement by g lucometer (mass/volume) - 05/28/18 16:05 Capillary blood glucose measurement by glucometer (mas s/volume) 144 mg/dL 70-110 Capillary blood glucose measurement by g lucometer (mass/volume) - 05/28/18 21:29 Capillary blood glucose measurement by glucometer (mas s/volume) 302 mg/dL 70-110 Capillary blood glucose measurement by g lucometer (mass/volume) - 05/29/18 05:39 Capillary blood glucose measurement by glucometer (mas s/volume) 143 mg/dL 70-110 Complete blood count (CBC) with automate d white blood cell (WBC) differential - 06/03/18 09:59 Blood leukocytes automated count (number/volume) 14.9 10*3/uL 4.3-11.0 Blood erythrocytes automated count (number/volume) 3.09 10*6/uL 4.35-5.85 Venous blood hemoglobin measurement (mass/volume) 8.6 g/dL 11.5-16.0 Blood hematocrit (volume fraction) 27 % 35-52 Automated erythrocyte mean corpuscular volume 87 [ foz_us] 80-99 Automated erythrocyte mean corpuscular h emoglobin (mass per erythrocyte) 28 pg 25-34 Automated erythrocyte mean corpuscular h emoglobin concentration measurement (mass/volume) 32 g/dL 32-36 Automated erythrocyte distribution width ratio 17. 6 % 10.0- 14.5 Automated blood platelet count (count/volume) 159 10*3/uL 130-400 Automated blood platelet mean volume measurement 9.4 [foz_us] 7.4-10.4 Automated blood neutrophils/100 leukocytes 85 % 42-75 Automated blood lymphocytes/100 leukocytes 8 % 12-44 Blood monocytes/100 leukocytes 5 % 0-12 Automated blood eosinophils/100 leukocytes 1 % 0-10 Automated blood basophils/100 leukocytes 0 % 0-10 Blood neutrophils automated count (number/volume) 12.7 10*3 1.8-7.8 Blood lymphocytes automated count (number/volume) 1.3 10*3 1.0-4.0 Blood monocytes automated count (number/volume) 0. 7 10*3 0.0-1.0 Automated eosinophil count 0.2 10*3/uL 0 .0-0.3 Automated blood basophil count (count/volume) 0.0 10*3/uL 0.0-0.1 Blood lactic acid measurement (moles/vol ume) - 06/03/18 09:59 Blood lactic acid measurement (moles/volume) 2.49 mmol/L 0.50-2.00 Comprehensive metabolic panel - 06/03/18 09:59 Serum or plasma sodium measurement (moles/volume) 130 mmol/L 135-145 Serum or plasma potassium measurement (moles/volume) 4.5 mmol/L 3.6-5.0 Serum or plasma chloride measurement (moles/volume) 101 mmol/L 98-107 Carbon dioxide 18 mmol/L 21-32 Serum or plasma anion gap determination (moles/volume) 11 mmol/L 5-14 Serum or plasma urea nitrogen measurement (mass/volume ) 19 mg/dL 7-18 Serum or plasma creatinine measurement (mass/volume) 1.42 mg/dL 0.60-1.30 Serum or plasma urea nitrogen/creatinine mass ratio 13 NRG Serum or plasma creatinine measurement w ith calculation of estimated glomerular filtration rate 35 NRG Serum or plasma glucose measurement (mass/volume) 232 mg/dL 70-105 Serum or plasma calcium measurement (mass/volume) 10.3 mg/dL 8.5-10.1 Serum or plasma total bilirubin measurement (mass/volu me) 0.7 mg/dL 0.1-1.0 Serum or plasma alkaline phosphatase josie surement (enzymatic activity/volume) 176 U/L 40-136 Serum or plasma aspartate aminotransfera se measurement (enzymatic activity/volume) 32 U/L 5-34 Serum or plasma alanine aminotransferase measurement (enzymatic activity/volume) 31 U/L 0-55 Serum or plasma protein measurement (mass/volume) 7.0 g/dL 6.4-8.2 Serum or plasma albumin measurement (mass/volume) 3.9 g/dL 3.2-4.5 CALCIUM CORRECTED 10.4 mg/dL 8.5-10.1 Blood manual differential performed dete ction - 06/03/18 09:59 Blood monocytes/100 leukocytes 4 % NRG Manual blood segmented neutrophils/100 leukocytes 82 % NRG Blood band neutrophils/100 leukocytes 2 % NRG Manual blood lymphocytes/100 leukocytes 9 % NRG Manual eosinophils/100 leukocytes in nose 3 % NRG Manual blood basophils/100 leukocytes 0 % NRG Blood polychromasia detection by light microscopy SLIGHT NRG Blood anisocytosis detection by light microscopy S LIGHT NRG Blood microcytes detection by light microscopy SLI GHT NRG Bacterial blood culture - 06/03/18 09:59 Bacterial blood culture NG NRG Capillary blood glucose measurement by g lucometer (mass/volume) - 06/03/18 10:02 Capillary blood glucose measurement by glucometer (mas s/volume) 255 mg/dL 70-110 Bacterial blood culture - 06/03/18 10:13 Bacterial blood culture NG NRG PT panel in platelet poor plasma by coag ulation assay - 06/03/18 10:52 Prothrombin time (PT) in platelet poor plasma by coagu lation assay 15.5 s 12.2-14.7 INR in platelet poor plasma or blood by coagulation as say 1.2 0.8-1.4 Activated partial thromboplastin time (a PTT) in platelet poor plasma bycoagulation assay - 06/03/18 10:52 Activated partial thromboplastin time (a PTT) in platelet poor plasma bycoagulation assay 32 s 24-35 Complete urinalysis with reflex to cultu re - 06/03/18 11:30 Urine color determination YELLOW NRG Urine clarity determination SLIGHTLY CLOUDY NRG Urine pH measurement by test strip 5 5-9 Specific gravity of urine by test strip 1.015 1.016-1.022 Urine protein assay by test strip, semi-quantitative 4+ NEGATIVE Urine glucose detection by automated test strip 2+ NEGATIVE Erythrocytes detection in urine sediment by light micr oscopy 1+ NEGATIVE Urine ketones detection by automated test strip NE GATIVE NEGATIVE Urine nitrite detection by test strip POSITIVE NEGATIVE Urine total bilirubin detection by test strip NEGA TIVE NEGATIVE Urine urobilinogen measurement by automated test strip (mass/volume) NORMAL NORMAL Urine leukocyte esterase detection by dipstick 3+ NEGATIVE Automated urine sediment erythrocyte cou nt by microscopy (number/high power field) RARE NRG Automated urine sediment leukocyte count by microscopy (number/high power field) [HPF] NRG Bacteria detection in urine sediment by light microsco py LARGE NRG Squamous epithelial cells detection in u rine sediment by light microscopy RARE NRG Crystals detection in urine sediment by light microsco py NONE NRG Casts detection in urine sediment by light microscopy NONE NRG Mucus detection in urine sediment by light microscopy NEGATIVE NRG Complete urinalysis with reflex to culture YES NRG Bacterial urine culture - 06/03/18 11:30 Bacterial urine culture [id number] NRG COLONY COUNT >100,000/ML NRG FTX;REPORTABLE RML REPORTED SENSITIVITY 06/05 09:58 NRG FREE TEXT ENTRY 2 RML REPORTED ID 06/04 10:05 NRG RML Sensitivity Panel - 06/03/18 11:30 Gentamicin susceptibility test by minimum inhibitory c oncentration <= NRG Levofloxacin susceptibility test by minimum inhibitory concentration <= NRG Tobramycin susceptibility test by minimum inhibitory c oncentration S NRG Piperacillin/tazobactam susceptibility t est by minimum inhibitory concentration = NRG Ciprofloxacin susceptibility test by minimum inhibitor y concentration <= NRG Meropenem susceptibility test by minimum inhibitory co ncentration 1 NRG Aztreonam susceptibility test by minimum inhibitory co ncentration 8 NRG Cefepime susceptibility test by minimum inhibitory con centration 8 NRG Imipenem susceptibility test by minimum inhibitory con centration 2 NRG Ceftazidime susceptibility test by minimum inhibitory concentration 4 NRG Serum or plasma lactate measurement (mol es/volume) - 06/03/18 12:17 Serum or plasma lactate measurement (moles/volume) 1.32 mmol/L 0.50-2.00 Capillary blood glucose measurement by g lucometer (mass/volume) - 06/03/18 16:39 Capillary blood glucose measurement by glucometer (mas s/volume) 262 mg/dL 70-110 Capillary blood glucose measurement by g lucometer (mass/volume) - 06/03/18 20:49 Capillary blood glucose measurement by glucometer (mas s/volume) 328 mg/dL 70-110 Capillary blood glucose measurement by g lucometer (mass/volume) - 06/03/18 21:45 Capillary blood glucose measurement by glucometer (mas s/volume) 293 mg/dL 70-110 Capillary blood glucose measurement by g lucometer (mass/volume) - 06/04/18 05:18 Capillary blood glucose measurement by glucometer (mas s/volume) 202 mg/dL 70-110 Complete blood count (CBC) with automate d white blood cell (WBC) differential - 06/04/18 06:54 Blood leukocytes automated count (number/volume) 11.7 10*3/uL 4.3-11.0 Blood erythrocytes automated count (number/volume) 2.83 10*6/uL 4.35-5.85 Venous blood hemoglobin measurement (mass/volume) 7.8 g/dL 11.5-16.0 Blood hematocrit (volume fraction) 25 % 35-52 Automated erythrocyte mean corpuscular volume 87 [ foz_us] 80-99 Automated erythrocyte mean corpuscular h emoglobin (mass per erythrocyte) 28 pg 25-34 Automated erythrocyte mean corpuscular h emoglobin concentration measurement (mass/volume) 32 g/dL 32-36 Automated erythrocyte distribution width ratio 18. 1 % 10.0- 14.5 Automated blood platelet count (count/volume) 147 10*3/uL 130-400 Automated blood platelet mean volume measurement 10.3 [foz_us] 7.4-10.4 Automated blood neutrophils/100 leukocytes 73 % 42-75 Automated blood lymphocytes/100 leukocytes 17 % 12-44 Blood monocytes/100 leukocytes 6 % 0-12 Automated blood eosinophils/100 leukocytes 4 % 0-10 Automated blood basophils/100 leukocytes 0 % 0-10 Blood neutrophils automated count (number/volume) 8.6 10*3 1.8-7.8 Blood lymphocytes automated count (number/volume) 2.0 10*3 1.0-4.0 Blood monocytes automated count (number/volume) 0. 7 10*3 0.0-1.0 Automated eosinophil count 0.5 10*3/uL 0 .0-0.3 Automated blood basophil count (count/volume) 0.0 10*3/uL 0.0-0.1 Comprehensive metabolic panel - 06/04/18 06:54 Serum or plasma sodium measurement (moles/volume) 135 mmol/L 135-145 Serum or plasma potassium measurement (moles/volume) 4.4 mmol/L 3.6-5.0 Serum or plasma chloride measurement (moles/volume) 106 mmol/L 98-107 Carbon dioxide 18 mmol/L 21-32 Serum or plasma anion gap determination (moles/volume) 11 mmol/L 5-14 Serum or plasma urea nitrogen measurement (mass/volume ) 19 mg/dL 7-18 Serum or plasma creatinine measurement (mass/volume) 1.22 mg/dL 0.60-1.30 Serum or plasma urea nitrogen/creatinine mass ratio 16 NRG Serum or plasma creatinine measurement w ith calculation of estimated glomerular filtration rate 42 NRG Serum or plasma glucose measurement (mass/volume) 180 mg/dL 70-105 Serum or plasma calcium measurement (mass/volume) 9.9 mg/dL 8.5-10.1 Serum or plasma total bilirubin measurement (mass/volu me) 0.4 mg/dL 0.1-1.0 Serum or plasma alkaline phosphatase josie surement (enzymatic activity/volume) 135 U/L 40-136 Serum or plasma aspartate aminotransfera se measurement (enzymatic activity/volume) 22 U/L 5-34 Serum or plasma alanine aminotransferase measurement (enzymatic activity/volume) 28 U/L 0-55 Serum or plasma protein measurement (mass/volume) 6.0 g/dL 6.4-8.2 Serum or plasma albumin measurement (mass/volume) 3.5 g/dL 3.2-4.5 CALCIUM CORRECTED 10.3 mg/dL 8.5-10.1 Capillary blood glucose measurement by g lucometer (mass/volume) - 06/04/18 11:06 Capillary blood glucose measurement by glucometer (mas s/volume) 239 mg/dL 70-110 Capillary blood glucose measurement by g lucometer (mass/volume) - 06/04/18 16:04 Capillary blood glucose measurement by glucometer (mas s/volume) 273 mg/dL 70-110 Capillary blood glucose measurement by g lucometer (mass/volume) - 06/04/18 20:27 Capillary blood glucose measurement by glucometer (mas s/volume) 210 mg/dL 70-110 Complete blood count (CBC) with automate d white blood cell (WBC) differential - 06/05/18 04:05 Blood leukocytes automated count (number/volume) 10.1 10*3/uL 4.3-11.0 Blood erythrocytes automated count (number/volume) 2.62 10*6/uL 4.35-5.85 Venous blood hemoglobin measurement (mass/volume) 7.2 g/dL 11.5-16.0 Blood hematocrit (volume fraction) 23 % 35-52 Automated erythrocyte mean corpuscular volume 88 [ foz_us] 80-99 Automated erythrocyte mean corpuscular h emoglobin (mass per erythrocyte) 28 pg 25-34 Automated erythrocyte mean corpuscular h emoglobin concentration measurement (mass/volume) 31 g/dL 32-36 Automated erythrocyte distribution width ratio 17. 8 % 10.0- 14.5 Automated blood platelet count (count/volume) 136 10*3/uL 130-400 Automated blood platelet mean volume measurement 10.4 [foz_us] 7.4-10.4 Automated blood neutrophils/100 leukocytes 70 % 42-75 Automated blood lymphocytes/100 leukocytes 18 % 12-44 Blood monocytes/100 leukocytes 6 % 0-12 Automated blood eosinophils/100 leukocytes 6 % 0-10 Automated blood basophils/100 leukocytes 0 % 0-10 Blood neutrophils automated count (number/volume) 7.1 10*3 1.8-7.8 Blood lymphocytes automated count (number/volume) 1.8 10*3 1.0-4.0 Blood monocytes automated count (number/volume) 0. 6 10*3 0.0-1.0 Automated eosinophil count 0.6 10*3/uL 0 .0-0.3 Automated blood basophil count (count/volume) 0.0 10*3/uL 0.0-0.1 Comprehensive metabolic panel - 06/05/18 04:05 Serum or plasma sodium measurement (moles/volume) 136 mmol/L 135-145 Serum or plasma potassium measurement (moles/volume) 4.0 mmol/L 3.6-5.0 Serum or plasma chloride measurement (moles/volume) 109 mmol/L 98-107 Carbon dioxide 18 mmol/L 21-32 Serum or plasma anion gap determination (moles/volume) 9 mmol/L 5-14 Serum or plasma urea nitrogen measurement (mass/volume ) 16 mg/dL 7-18 Serum or plasma creatinine measurement (mass/volume) 1.13 mg/dL 0.60-1.30 Serum or plasma urea nitrogen/creatinine mass ratio 14 NRG Serum or plasma creatinine measurement w ith calculation of estimated glomerular filtration rate 46 NRG Serum or plasma glucose measurement (mass/volume) 234 mg/dL 70-105 Serum or plasma calcium measurement (mass/volume) 9.3 mg/dL 8.5-10.1 Serum or plasma total bilirubin measurement (mass/volu me) 0.4 mg/dL 0.1-1.0 Serum or plasma alkaline phosphatase josie surement (enzymatic activity/volume) 148 U/L 40-136 Serum or plasma aspartate aminotransfera se measurement (enzymatic activity/volume) 28 U/L 5-34 Serum or plasma alanine aminotransferase measurement (enzymatic activity/volume) 34 U/L 0-55 Serum or plasma protein measurement (mass/volume) 6.0 g/dL 6.4-8.2 Serum or plasma albumin measurement (mass/volume) 3.3 g/dL 3.2-4.5 CALCIUM CORRECTED 9.9 mg/dL 8.5-10.1 Capillary blood glucose measurement by g lucometer (mass/volume) - 06/05/18 05:29 Capillary blood glucose measurement by glucometer (mas s/volume) 228 mg/dL 70-110 Capillary blood glucose measurement by g lucometer (mass/volume) - 06/05/18 11:36 Capillary blood glucose measurement by glucometer (mas s/volume) 315 mg/dL 70-110 Complete urinalysis with reflex to cultu re - 07/07/18 15:10 Urine color determination YELLOW NRG Urine clarity determination VERY CLOUDY NRG Urine pH measurement by test strip 6 5-9 Specific gravity of urine by test strip 1.010 1.016-1.022 Urine protein assay by test strip, semi-quantitative 3+ NEGATIVE Urine glucose detection by automated test strip 1+ NEGATIVE Erythrocytes detection in urine sediment by light micr oscopy 2+ NEGATIVE Urine ketones detection by automated test strip NE GATIVE NEGATIVE Urine nitrite detection by test strip NEGATIVE NEGATIVE Urine total bilirubin detection by test strip NEGA TIVE NEGATIVE Urine urobilinogen measurement by automated test strip (mass/volume) NORMAL NORMAL Urine leukocyte esterase detection by dipstick 3+ NEGATIVE Automated urine sediment erythrocyte cou nt by microscopy (number/high power field) [HPF] NRG Automated urine sediment leukocyte count by microscopy (number/high power field) TNTC NRG Bacteria detection in urine sediment by light microsco py FEW NRG Crystals detection in urine sediment by light microsco py NONE NRG Casts detection in urine sediment by light microscopy NONE NRG Mucus detection in urine sediment by light microscopy NEGATIVE NRG Complete urinalysis with reflex to culture YES NRG Bacterial urine culture - 07/07/18 15:10 Bacterial urine culture [id number] NRG COLONY COUNT >100,000/ML NRG FTX;REPORTABLE SUSCEPTIBILITY RE[facility]ED 07-10-2018, [facility]5 [facility] - 07/[facility]/18 15:10 Gentamicin susceptibility test by minimum inhibitory c oncentration <= NRG Levofloxacin susceptibility test by minimum inhibitory concentration <= NRG Tobramycin susceptibility test by minimum inhibitory c oncentration S NRG Piperacillin/tazobactam susceptibility t est by minimum inhibitory concentration = NRG Ciprofloxacin susceptibility test by minimum inhibitor y concentration <= NRG Meropenem susceptibility test by minimum inhibitory co ncentration 2 NRG Aztreonam susceptibility test by minimum inhibitory co ncentration 16 NRG Cefepime susceptibility test by minimum inhibitory con centration 4 NRG Imipenem susceptibility test by minimum inhibitory con centration 4 NRG Ceftazidime susceptibility test by minimum inhibitory concentration 8 NRG Bacterial urine culture - 08/18/18 11:20 Bacterial urine culture [id number] NRG COLONY COUNT >100,000/ML NRG FREE TEXT ENTRY 2 SENSITIVITY REPORTED 08/20 12:05 NRG FREE TEXT ENTRY 3 ID RE[facility]ED 08/19 11:[facility] - 08/18/18 11:20 Gentamicin susceptibility test by minimum inhibitory c oncentration <= NRG Trimethoprim/sulfamethoxazole susceptibi lity test by minimum inhibitoryconcentration > NRG Levofloxacin susceptibility test by minimum inhibitory concentration <= NRG Ampicillin susceptibility test by minimum inhibitory c oncentration <= NRG Cefazolin susceptibility test by minimum inhibitory co ncentration 2 NRG Ceftriaxone susceptibility test by minimum inhibitory concentration <= NRG Ciprofloxacin susceptibility test by minimum inhibitor y concentration <= NRG Meropenem susceptibility test by minimum inhibitory co ncentration <= NRG Nitrofurantoin susceptibility test by mi nimum inhibitory concentration <= NRG Amoxicillin and clavulanate potassium susc KAROLYN <= NRG Bacterial urine culture - 09/22/18 13:30 Bacterial urine culture [id number] NRG COLONY COUNT >100,000/ML NRG FTX;REPORTABLE SUSCEPTIBILITY REPORTED 09-24-2018,1 206 NRG FREE TEXT ENTRY 2 ID REPORTED 09/23/18 16:05 NRG RML Sensitivity Panel - 09/22/18 13:30 Gentamicin susceptibility test by minimum inhibitory c oncentration <= NRG Trimethoprim/sulfamethoxazole susceptibi lity test by minimum inhibitoryconcentration <= NRG Levofloxacin susceptibility test by minimum inhibitory concentration <= NRG Ampicillin susceptibility test by minimum inhibitory c oncentration > NRG Cefazolin susceptibility test by minimum inhibitory co ncentration 2 NRG Ceftriaxone susceptibility test by minimum inhibitory concentration <= NRG Ciprofloxacin susceptibility test by minimum inhibitor y concentration <= NRG Meropenem susceptibility test by minimum inhibitory co ncentration <= NRG Nitrofurantoin susceptibility test by mi nimum inhibitory concentration 64 NRG Amoxicillin and clavulanate potassium susc KAROLYN <= NRG Bacterial urine culture - 12/01/18 13:27 Bacterial urine culture [id number] NRG COLONY COUNT >100,000/ML NRG FTX;REPORTABLE SEE COMMENTS NRG Complete blood count (CBC) with automate d white blood cell (WBC) differential - 02/16/19 09:51 Blood leukocytes automated count (number/volume) 9.4 10*3/uL 4.3-11.0 Blood erythrocytes automated count (number/volume) 3.29 10*6/uL 4.35-5.85 Venous blood hemoglobin measurement (mass/volume) 8.9 g/dL 11.5-16.0 Blood hematocrit (volume fraction) 29 % 35-52 Automated erythrocyte mean corpuscular volume 89 [ foz_us] 80-99 Automated erythrocyte mean corpuscular h emoglobin (mass per erythrocyte) 27 pg 25-34 Automated erythrocyte mean corpuscular h emoglobin concentration measurement (mass/volume) 31 g/dL 32-36 Automated erythrocyte distribution width ratio 17. 9 % 10.0- 14.5 Automated blood platelet count (count/volume) 157 10*3/uL 130-400 Automated blood platelet mean volume measurement 9.4 [foz_us] 7.4-10.4 Automated blood neutrophils/100 leukocytes 58 % 42-75 Automated blood lymphocytes/100 leukocytes 28 % 12-44 Blood monocytes/100 leukocytes 7 % 0-12 Automated blood eosinophils/100 leukocytes 6 % 0-10 Automated blood basophils/100 leukocytes 1 % 0-10 Blood neutrophils automated count (number/volume) 5.5 10*3 1.8-7.8 Blood lymphocytes automated count (number/volume) 2.6 10*3 1.0-4.0 Blood monocytes automated count (number/volume) 0. 7 10*3 0.0-1.0 Automated eosinophil count 0.6 10*3/uL 0 .0-0.3 Automated blood basophil count (count/volume) 0.1 10*3/uL 0.0-0.1 Complete blood count (CBC) with automate d white blood cell (WBC) differential - 02/23/19 10:53 Blood leukocytes automated count (number/volume) 7.0 10*3/uL 4.3-11.0 Blood erythrocytes automated count (number/volume) 3.45 10*6/uL 4.35-5.85 Venous blood hemoglobin measurement (mass/volume) 9.4 g/dL 11.5-16.0 Blood hematocrit (volume fraction) 31 % 35-52 Automated erythrocyte mean corpuscular volume 89 [ foz_us] 80-99 Automated erythrocyte mean corpuscular h emoglobin (mass per erythrocyte) 27 pg 25-34 Automated erythrocyte mean corpuscular h emoglobin concentration measurement (mass/volume) 31 g/dL 32-36 Automated erythrocyte distribution width ratio 18. 8 % 10.0- 14.5 Automated blood platelet count (count/volume) 162 10*3/uL 130-400 Automated blood platelet mean volume measurement 9.5 [foz_us] 7.4-10.4 Automated blood neutrophils/100 leukocytes 62 % 42-75 Automated blood lymphocytes/100 leukocytes 25 % 12-44 Blood monocytes/100 leukocytes 6 % 0-12 Automated blood eosinophils/100 leukocytes 6 % 0-10 Automated blood basophils/100 leukocytes 0 % 0-10 Blood neutrophils automated count (number/volume) 4.4 10*3 1.8-7.8 Blood lymphocytes automated count (number/volume) 1.8 10*3 1.0-4.0 Blood monocytes automated count (number/volume) 0. 5 10*3 0.0-1.0 Automated eosinophil count 0.4 10*3/uL 0 .0-0.3 Automated blood basophil count (count/volume) 0.0 10*3/uL 0.0-0.1 Comprehensive metabolic panel - 02/23/19 10:53 Serum or plasma sodium measurement (moles/volume) 140 mmol/L 135-145 Serum or plasma potassium measurement (moles/volume) 4.2 mmol/L 3.6-5.0 Serum or plasma chloride measurement (moles/volume) 109 mmol/L 98-107 Carbon dioxide 17 mmol/L 21-32 Serum or plasma anion gap determination (moles/volume) 14 mmol/L 5-14 Serum or plasma urea nitrogen measurement (mass/volume ) 22 mg/dL 7-18 Serum or plasma creatinine measurement (mass/volume) 1.46 mg/dL 0.60-1.30 Serum or plasma urea nitrogen/creatinine mass ratio 15 NRG Serum or plasma creatinine measurement w ith calculation of estimated glomerular filtration rate 34 NRG Serum or plasma glucose measurement (mass/volume) 118 mg/dL 70-105 Serum or plasma calcium measurement (mass/volume) 10.3 mg/dL 8.5-10.1 Serum or plasma total bilirubin measurement (mass/volu me) 0.6 mg/dL 0.1-1.0 Serum or plasma alkaline phosphatase josie surement (enzymatic activity/volume) 151 U/L 40-136 Serum or plasma aspartate aminotransfera se measurement (enzymatic activity/volume) 24 U/L 5-34 Serum or plasma alanine aminotransferase measurement (enzymatic activity/volume) 20 U/L 0-55 Serum or plasma protein measurement (mass/volume) 7.4 g/dL 6.4-8.2 Serum or plasma albumin measurement (mass/volume) 4.5 g/dL 3.2-4.5 CALCIUM CORRECTED 9.9 mg/dL 8.5-10.1 Serum or plasma ferritin measurement (ma ss/volume) - 02/23/19 10:53 Serum or plasma ferritin measurement (mass/volume) 159.4 % 20.0-177.0 VITAMIN D 25-HYDROXY - 02/23/19 10:53 VITAMIN D 25-HYDROXY (TOTAL) 25.6 % 3 0.0-100.0 Complete blood count (CBC) with automate d white blood cell (WBC) differential - 03/02/19 13:43 Blood leukocytes automated count (number/volume) 7.5 10*3/uL 4.3-11.0 Blood erythrocytes automated count (number/volume) 3.38 10*6/uL 4.35-5.85 Venous blood hemoglobin measurement (mass/volume) 9.4 g/dL 11.5-16.0 Blood hematocrit (volume fraction) 30 % 35-52 Automated erythrocyte mean corpuscular volume 89 [ foz_us] 80-99 Automated erythrocyte mean corpuscular h emoglobin (mass per erythrocyte) 28 pg 25-34 Automated erythrocyte mean corpuscular h emoglobin concentration measurement (mass/volume) 31 g/dL 32-36 Automated erythrocyte distribution width ratio 18. 5 % 10.0- 14.5 Automated blood platelet count (count/volume) 143 10*3/uL 130-400 Automated blood platelet mean volume measurement 10.1 [foz_us] 7.4-10.4 Automated blood neutrophils/100 leukocytes 59 % 42-75 Automated blood lymphocytes/100 leukocytes 29 % 12-44 Blood monocytes/100 leukocytes 7 % 0-12 Automated blood eosinophils/100 leukocytes 4 % 0-10 Automated blood basophils/100 leukocytes 0 % 0-10 Blood neutrophils automated count (number/volume) 4.4 10*3 1.8-7.8 Blood lymphocytes automated count (number/volume) 2.2 10*3 1.0-4.0 Blood monocytes automated count (number/volume) 0. 5 10*3 0.0-1.0 Automated eosinophil count 0.3 10*3/uL 0 .0-0.3 Automated blood basophil count (count/volume) 0.0 10*3/uL 0.0-0.1 Complete blood count (CBC) with automate d white blood cell (WBC) differential - 04/06/19 10:01 Blood leukocytes automated count (number/volume) 9.1 10*3/uL 4.3-11.0 Blood erythrocytes automated count (number/volume) 4.38 10*6/uL 4.35-5.85 Venous blood hemoglobin measurement (mass/volume) 11.3 g/dL 11.5-16.0 Blood hematocrit (volume fraction) 36 % 35-52 Automated erythrocyte mean corpuscular volume 83 [ foz_us] 80-99 Automated erythrocyte mean corpuscular h emoglobin (mass per erythrocyte) 26 pg 25-34 Automated erythrocyte mean corpuscular h emoglobin concentration measurement (mass/volume) 31 g/dL 32-36 Automated erythrocyte distribution width ratio 16. 5 % 10.0- 14.5 Automated blood platelet count (count/volume) 144 10*3/uL 130-400 Automated blood platelet mean volume measurement 10.3 [foz_us] 7.4-10.4 Automated blood neutrophils/100 leukocytes 64 % 42-75 Automated blood lymphocytes/100 leukocytes 24 % 12-44 Blood monocytes/100 leukocytes 8 % 0-12 Automated blood eosinophils/100 leukocytes 3 % 0-10 Automated blood basophils/100 leukocytes 0 % 0-10 Blood neutrophils automated count (number/volume) 5.8 10*3 1.8-7.8 Blood lymphocytes automated count (number/volume) 2.2 10*3 1.0-4.0 Blood monocytes automated count (number/volume) 0. 7 10*3 0.0-1.0 Automated eosinophil count 0.3 10*3/uL 0 .0-0.3 Automated blood basophil count (count/volume) 0.0 10*3/uL 0.0-0.1 Bacterial urine culture - 04/27/19 14:27 Bacterial urine culture [id number] NRG COLONY COUNT >100,000/ML NR FTX;REPORTABLE SUSCEPTIBILITY REPORTED 7358. NRG Dirithromycin susceptibility test by dis k diffusion - 04/27/19 14:27 Gentamicin susceptibility test by minimum inhibitory c oncentration <= NRG Trimethoprim/sulfamethoxazole susceptibi lity test by minimum inhibitoryconcentration > NRG Levofloxacin susceptibility test by minimum inhibitory concentration <= NRG Ampicillin susceptibility test by minimum inhibitory c oncentration > NRG Cefazolin susceptibility test by minimum inhibitory co ncentration 2 NRG Ceftriaxone susceptibility test by minimum inhibitory concentration <= NRG Ciprofloxacin susceptibility test by minimum inhibitor y concentration <= NRG Meropenem susceptibility test by minimum inhibitory co ncentration <= NRG Nitrofurantoin susceptibility test by mi nimum inhibitory concentration 32 NRG Amoxicillin and clavulanate potassium susc KAROLYN = NRG Complete blood count (CBC) with automate d white blood cell (WBC) differential - 10/18/19 13:39 Blood leukocytes automated count (number/volume) 8.1 10*3/uL 4.3-11.0 Blood erythrocytes automated count (number/volume) 4.14 10*6/uL 4.35-5.85 Venous blood hemoglobin measurement (mass/volume) 11.2 g/dL 11.5-16.0 Blood hematocrit (volume fraction) 36 % 35-52 Automated erythrocyte mean corpuscular volume 86 [ foz_us] 80-99 Automated erythrocyte mean corpuscular h emoglobin (mass per erythrocyte) 27 pg 25-34 Automated erythrocyte mean corpuscular h emoglobin concentration measurement (mass/volume) 32 g/dL 32-36 Automated erythrocyte distribution width ratio 16. 4 % 10.0- 14.5 Automated blood platelet count (count/volume) 130 10*3/uL 130-400 Automated blood platelet mean volume measurement 10.6 [foz_us] 7.4-10.4 Automated blood neutrophils/100 leukocytes 50 % 42-75 Automated blood lymphocytes/100 leukocytes 38 % 12-44 Blood monocytes/100 leukocytes 8 % 0-12 Automated blood eosinophils/100 leukocytes 4 % 0-10 Automated blood basophils/100 leukocytes 1 % 0-10 Blood neutrophils automated count (number/volume) 4.1 10*3 1.8-7.8 Blood lymphocytes automated count (number/volume) 3.0 10*3 1.0-4.0 Blood monocytes automated count (number/volume) 0. 6 10*3 0.0-1.0 Automated eosinophil count 0.3 10*3/uL 0 .0-0.3 Automated blood basophil count (count/volume) 0.1 10*3/uL 0.0-0.1 Complete urinalysis with reflex to cultu re - 12/30/19 05:57 Urine color determination STRAW NRG Urine clarity determination CLOUDY NR G Urine pH measurement by test strip 5.0 5-9 Specific gravity of urine by test strip 1.010 1.016-1.022 Urine protein assay by test strip, semi-quantitative TRACE NEGATIVE Urine glucose detection by automated test strip NE GATIVE NEGATIVE Erythrocytes detection in urine sediment by light micr oscopy 2+ NEGATIVE Urine ketones detection by automated test strip NE GATIVE NEGATIVE Urine nitrite detection by test strip POSITIVE NEGATIVE Urine total bilirubin detection by test strip NEGA TIVE NEGATIVE Urine urobilinogen measurement by automated test strip (mass/volume) 1.0 mg/dL < = 1.0 Urine leukocyte esterase detection by dipstick 2+ NEGATIVE Automated urine sediment erythrocyte cou nt by microscopy (number/high power field) [HPF] NRG Automated urine sediment leukocyte count by microscopy (number/high power field) TNTC NRG Bacteria detection in urine sediment by light microsco py LARGE NRG Squamous epithelial cells detection in u rine sediment by light microscopy RARE NRG Crystals detection in urine sediment by light microsco py NONE NRG Casts detection in urine sediment by light microscopy NONE NRG Mucus detection in urine sediment by light microscopy NEGATIVE NRG Complete urinalysis with reflex to culture YES NRG Coronavirus SARS-CoV-2 SO 2018 - 0 12:45 Coronavirus Ab [Units/volume] in Serum Negative Negative Complete blood count (CBC) with automate d white blood cell (WBC) differential - 12/30/19 19:47 Blood leukocytes automated count (number/volume) 12.7 10*3/uL 4.3-11.0 Blood erythrocytes automated count (number/volume) 3.47 10*6/uL 4.35-5.85 Venous blood hemoglobin measurement (mass/volume) 9.5 g/dL 11.5-16.0 Blood hematocrit (volume fraction) 29 % 35-52 Automated erythrocyte mean corpuscular volume 83 [ foz_us] 80-99 Automated erythrocyte mean corpuscular h emoglobin (mass per erythrocyte) 27 pg 25-34 Automated erythrocyte mean corpuscular h emoglobin concentration measurement (mass/volume) 33 g/dL 32-36 Automated erythrocyte distribution width ratio 16. 8 % 10.0- 14.5 Automated blood platelet count (count/volume) 124 10*3/uL 130-400 Automated blood platelet mean volume measurement 10.0 [foz_us] 7.4-10.4 Automated blood neutrophils/100 leukocytes 79 % 42-75 Automated blood lymphocytes/100 leukocytes 14 % 12-44 Blood monocytes/100 leukocytes 7 % 0-12 Automated blood eosinophils/100 leukocytes 0 % 0-10 Automated blood basophils/100 leukocytes 0 % 0-10 Blood neutrophils automated count (number/volume) 10.0 10*3 1.8-7.8 Blood lymphocytes automated count (number/volume) 1.8 10*3 1.0-4.0 Blood monocytes automated count (number/volume) 0. 9 10*3 0.0-1.0 Automated eosinophil count 0.0 10*3/uL 0 .0-0.3 Automated blood basophil count (count/volume) 0.0 10*3/uL 0.0-0.1 Comprehensive metabolic panel - 12/30/19 19:47 Serum or plasma sodium measurement (moles/volume) 132 mmol/L 135-145 Serum or plasma potassium measurement (moles/volume) 4.1 mmol/L 3.6-5.0 Serum or plasma chloride measurement (moles/volume) 109 mmol/L 98-107 Carbon dioxide 12 mmol/L 21-32 Serum or plasma anion gap determination (moles/volume) 11 mmol/L 5-14 Serum or plasma urea nitrogen measurement (mass/volume ) 27 mg/dL 7-18 Serum or plasma creatinine measurement (mass/volume) 2.41 mg/dL 0.60-1.30 Serum or plasma urea nitrogen/creatinine mass ratio 11 NRG Serum or plasma creatinine measurement w ith calculation of estimated glomerular filtration rate 19 NRG Serum or plasma glucose measurement (mass/volume) 182 mg/dL 70-105 Serum or plasma calcium measurement (mass/volume) 9.2 mg/dL 8.5-10.1 Serum or plasma total bilirubin measurement (mass/volu me) 0.7 mg/dL 0.1-1.0 Serum or plasma alkaline phosphatase josie surement (enzymatic activity/volume) 127 U/L 40-136 Serum or plasma aspartate aminotransfera se measurement (enzymatic activity/volume) 34 U/L 5-34 Serum or plasma alanine aminotransferase measurement (enzymatic activity/volume) 25 U/L 0-55 Serum or plasma protein measurement (mass/volume) 6.8 g/dL 6.4-8.2 Serum or plasma albumin measurement (mass/volume) 3.8 g/dL 3.2-4.5 CALCIUM CORRECTED 9.4 mg/dL 8.5-10.1 Capillary blood glucose measurement by g lucometer (mass/volume) - 12/31/19 07:03 Capillary blood glucose measurement by glucometer (mas s/volume) 139 mg/dL 70-110 Complete blood count (CBC) with automate d white blood cell (WBC) differential - 12/31/19 08:15 Blood leukocytes automated count (number/volume) 12.2 10*3/uL 4.3-11.0 Blood erythrocytes automated count (number/volume) 3.97 10*6/uL 4.35-5.85 Venous blood hemoglobin measurement (mass/volume) 10.8 g/dL 11.5-16.0 Blood hematocrit (volume fraction) 33 % 35-52 Automated erythrocyte mean corpuscular volume 84 [ foz_us] 80-99 Automated erythrocyte mean corpuscular h emoglobin (mass per erythrocyte) 27 pg 25-34 Automated erythrocyte mean corpuscular h emoglobin concentration measurement (mass/volume) 32 g/dL 32-36 Automated erythrocyte distribution width ratio 16. 8 % 10.0- 14.5 Automated blood platelet count (count/volume) 122 10*3/uL 130-400 Automated blood platelet mean volume measurement 10.6 [foz_us] 7.4-10.4 Automated blood neutrophils/100 leukocytes 71 % 42-75 Automated blood lymphocytes/100 leukocytes 19 % 12-44 Blood monocytes/100 leukocytes 9 % 0-12 Automated blood eosinophils/100 leukocytes 1 % 0-10 Automated blood basophils/100 leukocytes 0 % 0-10 Blood neutrophils automated count (number/volume) 8.6 10*3 1.8-7.8 Blood lymphocytes automated count (number/volume) 2.4 10*3 1.0-4.0 Blood monocytes automated count (number/volume) 1. 1 10*3 0.0-1.0 Automated eosinophil count 0.1 10*3/uL 0 .0-0.3 Automated blood basophil count (count/volume) 0.0 10*3/uL 0.0-0.1 Comprehensive metabolic panel - 12/31/19 08:15 Serum or plasma sodium measurement (moles/volume) 137 mmol/L 135-145 Serum or plasma potassium measurement (moles/volume) 4.0 mmol/L 3.6-5.0 Serum or plasma chloride measurement (moles/volume) 112 mmol/L 98-107 Carbon dioxide 13 mmol/L 21-32 Serum or plasma anion gap determination (moles/volume) 12 mmol/L 5-14 Serum or plasma urea nitrogen measurement (mass/volume ) 24 mg/dL 7-18 Serum or plasma creatinine measurement (mass/volume) 2.20 mg/dL 0.60-1.30 Serum or plasma urea nitrogen/creatinine mass ratio 11 NRG Serum or plasma creatinine measurement w ith calculation of estimated glomerular filtration rate 21 NRG Serum or plasma glucose measurement (mass/volume) 169 mg/dL 70-105 Serum or plasma calcium measurement (mass/volume) 9.7 mg/dL 8.5-10.1 Serum or plasma total bilirubin measurement (mass/volu me) 0.9 mg/dL 0.1-1.0 Serum or plasma alkaline phosphatase josie surement (enzymatic activity/volume) 127 U/L 40-136 Serum or plasma aspartate aminotransfera se measurement (enzymatic activity/volume) 31 U/L 5-34 Serum or plasma alanine aminotransferase measurement (enzymatic activity/volume) 29 U/L 0-55 Serum or plasma protein measurement (mass/volume) 7.5 g/dL 6.4-8.2 Serum or plasma albumin measurement (mass/volume) 4.0 g/dL 3.2-4.5 CALCIUM CORRECTED 9.7 mg/dL 8.5-10.1 Capillary blood glucose measurement by g lucometer (mass/volume) - 12/31/19 11:50 Capillary blood glucose measurement by glucometer (mas s/volume) 249 mg/dL 70-110 Encounters ACCT No. Visit Date/Time Discharge Status Pt. Type Provider Facility Loc./Unit Complaint [id number] 03/22/2016 11:58:41 03/22/2016 23:59: 59 CLS Outpatient Juan Rolle [id number] 12/30/2019 20:21:00 15:23:00 DIS Inpatient SAURABH TY, PAIGE Benitez [facility] 4TH RANDOLPH,DIARRHEA [id number] 12/30/2019 08:40:00 14:06:00 DIS Outpatient LINDA MCCARTNEY DO [facility] PREOP COLONOSCOPY [id number] 12/21/2019 12:46:00 23:59:59 CLS Outpatient DINORA GREEN [facility] ONC [id number] 11/09/2019 11:36:00 00:01:00 DIS Outpatient DINORA GREEN [facility] ONC [id number] 09/15/2019 11:18:00 23:59:59 CLS Outpatient MIRTA TORRES CASTING MACHINE SET UP OPERATOR [facility] RAD [id number] 09/10/2019 10:21:00 23:59:59 CLS Outpatient MIRTA TORRES CASTING MACHINE SET UP OPERATOR [facility] RAD PNEOMINA [id number] 08/03/2019 10:33:00 00:01:00 DIS Outpatient DINORA GREEN V [facility] ONC [id number] 05/11/2019 11:17:00 00:01:00 DIS Outpatient DINORA GREEN V [facility] ONC [id number] 04/07/2019 15:37:00 23:59:59 CLS Outpatient JESSI, DIONISIO E CASTING MACHINE SET UP OPERATOR [facility] RAD R/O BLOOD CLOT [id number] 04/05/2019 15:11:00 23:59:59 CLS Outpatient FELICITA CEDEÑO MD [facility] RAD COUGH,WEAKNESS [id number] 04/02/2019 14:33:00 16:22:00 DIS Emergency OTIS TY, MARCIA Garza [facility] ER POSS UTI;FOOT PAIN [id number] 03/23/2019 16:07:00 23:59:59 CLS Outpatient MIRTA TORRES CASTING MACHINE SET UP OPERATOR [facility] RAD WRIST PAIN [id number] 01/20/2019 09:24:00 00:01:00 DIS Outpatient DINORA GREEN V [facility] ONC [id number] 12/23/2018 10:35:00 23:59:59 CLS Outpatient MARIELLE SETH CASTING MACHINE SET UP OPERATOR [facility] LAB [id number] 12/08/2018 10:24:00 23:59:59 CLS Outpatient FELICITA CEDEÑO MD [facility] LAB [id number] 10/27/2018 13:05:00 04/08/2 019 00:01:00 DIS Outpatient DINORA GREEN N V [facility] ONC [id number] 10/07/2018 10:56:00 019 12:12:00 DIS Outpatient ALE ARABELLA HUNT [facility] REHAB S/P L BKA [id number] 07/17/2018 08:58:00 16:00:00 DIS Outpatient ALE ARABELLA HUNT [facility] REHAB S/P L BKA [id number] 07/22/2018 15:02:00 018 00:01:00 DIS Outpatient DINORA GREEN N V [facility] ONC [id number] 06/03/2018 12:24:00 018 12:36:00 DIS Inpatient CLAUDIA TY, SUHA Benitez [facility] 4TH SEPSIS [id number] 05/21/2018 11:38:00 10:15:00 DIS Inpatient MIKE TY, LINDA Foster [facility] IRF LEFT BKA [id number] 05/19/2018 11:51:00 11:15:00 DIS Inpatient ALE ARABELLA HUNT [facility] 4TH AVN,CHARCO FOOT LT [id number] 05/15/2018 09:21:00 23:59:59 CLS Outpatient TAPAN DUVALL MD [facility] WOUNDCARE [id number] 05/13/2018 15:42:00 23:59:59 CLS Preadmit ARABELLA AGUILERA DO [facility] SDC AVN TALUS LEFT ANKLE [id number] 05/13/2018 15:37:00 23:59:59 CLS Outpatient ALE ARABELLA HUNT [facility] PREOP AVN,LT CHARCO F OOT [id number] 05/08/2018 10:42:00 23:59:59 CLS Outpatient TAPAN DUVALL MD [facility] WOUNDCARE [id number] 05/04/2018 17:00:00 18:40:00 DIS Inpatient SANJUANA ANNE DPM [facility] 4TH LEFT ANKLE FRACTURE [id number] 05/02/2018 22:33:00 018 00:00:00 DIS Emergency SEN DELONG MD [facility] ER L FOOT WOUND [id number] 05/01/2018 10:58:00 23:59:59 CLS Outpatient MIRTA TORRES APRN [facility] WOUNDCARE [id number] 04/14/2018 11:57:00 11:02:00 DIS Outpatient DINORA GREEN V [facility] ONC [id number] 04/25/2018 15:15:00 018 11:35:00 DIS Inpatient JULIETTE GOMEZ MD [facility] 4TH PVD,CAD,HTN,HLP,DM [id number] 04/22/2018 10:19:00 018 23:59:59 CLS Outpatient TAPAN DUVALL MD [facility] WOUNDCARE [id number] 04/21/2018 12:45:00 018 23:59:59 CLS Outpatient JULIETTE GOMEZ MD [facility] CARD CAD,COPD,CAROTID ARTERY STENOSIS [id number] 04/17/2018 10:20:00 018 23:59:59 CLS Outpatient TAPAN DUVALL MD [facility] WOUNDCARE [id number] 04/10/2018 10:50:00 018 23:59:59 CLS Outpatient TAPAN DUVALL MD [facility] WOUNDCARE [id number] 04/03/2018 08:45:00 018 23:59:59 CLS Outpatient TAPAN DUVALL MD [facility] WOUNDCARE [id number] 03/22/2018 20:30:00 018 13:35:00 DIS Inpatient SUHA TAYLOR MD [facility] 4TH DELIRIUM,SEPSIS,CKD,LOW NA [id number] 03/20/2018 18:11:00 018 21:45:00 DIS Outpatient DIETER LOVE CASTING MACHINE SET UP OPERATOR [facility] ER UTI [id number] 02/10/2018 15:30:00 018 00:01:00 DIS Outpatient DINORA GREEN [facility] ONC [id number] 11/10/2017 13:36:00 018 11:30:00 DIS Outpatient JONO TY, CHASITY [facility] ONC [id number] 10/27/2017 08:00:00 018 11:35:00 DIS Inpatient SANJUANA ANNE DPM [facility] 4TH CHARCO LEFT FOOT [id number] 10/07/2017 11:08:00 018 23:59:59 CLS Outpatient MIRTA TORRES CASTING MACHINE SET UP OPERATOR [facility] RAD LT LEG PAIN/JORDI MA [id number] 09/30/2017 14:19:00 018 23:59:59 CLS Outpatient MIRTA TORRES CASTING MACHINE SET UP OPERATOR [facility] RAD SWELLING R/O DV T [id number] 09/05/2017 10:45:00 018 11:20:00 DIS Inpatient LINDA MCKEON MD [facility] IRF SUBDURAL HEMATOMA [id number] 09/02/2017 15:19:00 018 10:20:00 DIS Inpatient CLAUDIA TY, SUHA Benitez [facility] ICU PNEUMONIA [id number] 09/02/2017 10:08:00 018 23:59:59 CLS Outpatient FELICITA CEDEÑO MD [facility] LAB [id number] 08/19/2017 13:36:00 018 09:26:00 DIS Outpatient DINORA GREEN [facility] ONC [id number] 08/06/2017 13:27:00 018 23:59:59 CLS Outpatient KLARISSA MOSER CASTING MACHINE SET UP OPERATOR [facility] RAD LUNG NODULE, CO UGH, SOB [id number] 07/23/2017 13:38:00 018 00:01:00 DIS Outpatient DINORA GREEN [facility] ONC [id number] 04/17/2017 12:53:00 017 00:01:00 DIS Outpatient DINORA GREEN V [facility] ONC [id number] 04/04/2017 10:00:00 017 12:30:00 DIS Inpatient CLAUDIA TY, SUHA Benitez [facility] 4TH FALL DIABETES UTI SEPSI S [id number] 02/13/2017 11:15:00 017 23:59:59 CLS Outpatient FELICITA CEDEÑO MD [facility] LAB [id number] 01/23/2017 12:54:00 017 00:01:00 DIS Outpatient IDNORA GREEN [facility] ONC [id number] 02/11/2017 15:24:00 017 23:59:59 CLS Outpatient MIRTA TORRES APRN [facility] RAD FALL LEFT KNEE PAIN [id number] 10/31/2016 09:52:00 017 00:01:00 DIS Outpatient DINORA GREEN [facility] ONC [id number] 11/04/2016 10:56:00 017 23:59:59 CLS Outpatient ANGEL FLOWERS [facility] RAD MENTAL STATUS C HANGE [id number] 10/31/2016 09:55:00 017 23:59:59 CLS Outpatient FELICITA CEDEÑO MD [facility] LAB [id number] 10/17/2016 14:29:00 017 23:59:59 CLS Outpatient FELICITA CEDEÑO MD [facility] RAD SCREENING [id number] 07/25/2016 10:32:00 017 00:01:00 DIS Outpatient DINORA GREEN [facility] ONC [id number] 07/12/2016 12:45:00 23:59:59 CLS Outpatient AR ALLEN DO [facility] RT COPD,COUGH [id number] 06/27/2016 07:57:00 23:59:59 CLS Outpatient AR ALLEN DO [facility] RAD COPD,COUGH,LUNG NODULE [id number] 06/13/2016 13:35:00 23:59:59 CLS Outpatient FELICITA CEDEÑO MD [facility] LAB [id number] 05/30/2016 00:10:00 23:59:59 CLS Preadmit FELICITA CEDEÑO MD, V [facility] LAB R19.7,N39.0 [id number] 03/03/2016 20:30:00 00:01:00 DIS Outpatient FELICITA CEDEÑO MD [facility] LAB R19.7,N39.0 [id number] 04/25/2016 13:59:00 11:00:00 DIS Outpatient DINORA GREEN [facility] ONC [id number] 04/11/2016 08:30:00 23:59:59 CLS Outpatient KARENA PALACIOS [facility] LAB [id number] 03/21/2016 12:00:00 23:59:59 CLS Outpatient DELILAH HARE [facility] LAB [id number] 03/14/2016 10:20:00 23:59:59 CLS Outpatient ANGEL FLOWERS [facility] ONC [id number] 03/14/2016 13:49:00 15:17:00 DIS Outpatient TAPAN HUI MD [facility] REHAB CHRONIC RECURRENT HOARS ENESS AND COUGH [id number] 03/07/2016 10:55:00 23:59:59 CLS Outpatient MIRTA TORRES APRN [facility] LAB [id number] 03/07/2016 10:52:00 23:59:59 CLS Outpatient FELICITA CEDEÑO MD [facility] LAB [id number] 02/15/2016 11:38:00 23:59:59 CLS Outpatient DELILAH HARE [facility] LAB [id number] 02/02/2016 10:22:00 23:59:59 CLS Outpatient TAPAN HUI MD [facility] RAD CHRONIC HOARSNESS, COUG H [id number] 01/31/2016 08:00:00 00:01:00 DIS Outpatient DINORA GREEN [facility] ONC [id number] 01/18/2016 12:04:00 23:59:59 CLS Outpatient FELICITA CEDEÑO MD [facility] LAB [id number] 01/11/2016 09:28:00 23:59:59 CLS Outpatient ANGEL FLOWERS [employer]PER[employer] [facility] ONC [id number] 12/15/2015 15:38:00 11:40:00 DIS Inpatient FELICITA CEDEÑO MD [facility] 4TH COUGH/CONGESTION [id number] 11/29/2015 10:41:00 23:59:59 CLS Outpatient MIRTA TORRES APRN [facility] RAD PAIN IN CHEST R SHOULDER [id number] 11/29/2015 10:27:00 23:59:59 CLS Outpatient KARENA PALACIOS [facility] CARD CAD,CP SYDR OME HTN [id number] 10/26/2015 11:07:00 00:01:00 DIS Outpatient DINORA GREEN [facility] ONC [id number] 10/04/2015 12:26:00 23:59:59 CLS Outpatient FELICITA CEDEÑO MD [facility] RAD HEADACHES [id number] 09/07/2015 10:52:00 016 23:59:59 CLS Outpatient ANGEL FLOWERSP [facility] ONC [id number] 09/06/2015 11:07:00 016 23:59:59 CLS Outpatient FELICITA CEDEÑO MD [facility] RAD SCREENING [id number] 09/01/2015 07:52:00 23:59:59 CLS Outpatient DELILAH FRIAS MD [facility] LAB [id number] 07/26/2015 09:44:00 015 00:01:00 DIS Outpatient DINORA GREEN V [facility] ONC [id number] 07/06/2015 10:47:00 23:59:59 CLS Outpatient ANGEL FLOWERS [employer] [facility] ONC [id number] 07/03/2015 09:28:00 23:59:59 CLS Outpatient KLARISSA MOSER APRN [facility] RAD LUNG NODULE [id number] 05/11/2015 10:14:00 23:59:59 CLS Outpatient FELICITA CEDEÑO MD [facility] LAB [id number] 04/20/2015 08:31:00 015 00:01:00 DIS Outpatient DINORA GREEN V [facility] ONC [id number] 04/20/2015 08:28:00 015 23:59:59 CLS Outpatient JULIETTE GOMEZ MD [facility] LAB [id number] 03/02/2015 12:38:00 015 23:59:59 CLS Outpatient ANGEL FLOWERSP [facility] ONC [id number] 03/02/2015 10:31:00 015 23:59:59 CLS Outpatient MIRTA TORRES APRN [facility] LABNPT UTI [id number] 02/08/2015 10:55:00 015 13:20:00 DIS Inpatient LINDA MCKEON MD E [facility] IRF WEAKNESS,ALTERED MENTAL STATUS [id number] 02/02/2015 13:27:00 015 10:55:00 DIS Inpatient FELICITA CEDEÑO MD [facility] SURGICAL ACUTE RENAL FAILURE,UTI ,AMS [id number] 01/25/2015 10:53:00 015 00:01:00 DIS Outpatient DINORA GREEN V [facility] ONC [id number] 01/31/2015 11:09:00 23:59:59 CLS Outpatient FELICITA CEDEÑO MD [facility] RAD FALL, CONFUSION [id number] 01/04/2015 10:34:00 23:59:59 CLS Outpatient AR ALLEN DO [facility] RAD COPD,SOB,COUGH, PNUEMON IA [id number] 01/04/2015 09:53:00 015 23:59:59 CLS Outpatient ANGEL FLOWERS [employer] SU[employer] [facility] RAD HEADACHE [id number] 12/29/2014 13:27:00 23:59:59 CLS Outpatient ANGEL FLOWERS [employer] [facility] ONC [id number] 12/26/2014 09:57:00 23:59:59 CLS Outpatient AR ALLEN DO [facility] RAD COPD SOB PNEUMONIA COUG H [id number] 11/02/2014 11:48:00 015 00:01:00 DIS Outpatient DINORA GREEN [facility] ONC [id number] 11/04/2014 20:01:00 015 07:10:00 DIS Outpatient AR ALLEN DO [facility] SLEEP SNORING,NOCTURNAL HYPOX IA [id number] 10/27/2014 13:50:00 23:59:59 CLS Outpatient ANGEL FLOWERS BANQUET SUPERVISOR [facility] ONC [id number] 08/30/2014 16:15:00 23:59:59 CLS Outpatient AJMIE TORRESCasi Lozano APRN [facility] RAD COUGHING X3 ALEJANDRA HOLLIDAY [id number] 08/16/2014 09:49:00 23:59:59 CLS Outpatient FELICITA CEDEÑO MD [facility] RAD SCREENING [id number] 08/04/2014 13:35:00 00:01:00 DIS Outpatient DINORA GREEN [facility] ONC [id number] 07/20/2014 14:47:00 16:00:00 DIS Emergency FRANKLIN CEDEÑO MD [facility] ER SHAKING;SOA;UNABLE TO V OMIT;ABD PAIN [id number] 07/07/2014 13:42:00 23:59:59 CLS Outpatient ANGEL FLOWERS BANQUET SUPERVISOR [facility] ONC [id number] 07/01/2014 14:18:00 23:59:59 CLS Outpatient AR ALLEN DO [facility] RT COPD,COUGH,SOB [id number] 06/28/2014 15:03:00 23:59:59 CLS Outpatient AR ALLEN DO [facility] PULM COPD,COUGH,SOB [id number] 06/01/2014 07:17:00 23:59:59 CLS Outpatient JULIETTE GOMEZ MD [facility] CARD CAD HTN HLE [id number] 05/30/2014 10:59:00 23:59:59 CLS Outpatient JULIETTE GOMEZ MD [facility] CARD CAD HTN HLE [id number] 04/27/2014 08:52:00 00:01:00 DIS Outpatient DINORA GREEN [facility] ONC [id number] 04/29/2014 09:22:00 23:59:59 CLS Outpatient GONZALESLEXIE SHARMA BANQUET SUPERVISOR [facility] RAD HEMTOPYSIS,COUG H [id number] 04/27/2014 09:53:00 23:59:59 CLS Outpatient GONZALES, LEXIE M BANQUET SUPERVISOR [facility] LAB [id number] 04/14/2014 15:30:00 23:59:59 CLS Outpatient GONZALESLEXIE SHARMA BANQUET SUPERVISOR [facility] RAD HEMOPTYSIS [id number] 02/24/2014 10:27:00 23:59:59 CLS Outpatient ANGEL FLOWERS BANQUET SUPERVISOR [facility] ONC [id number] 02/04/2014 09:35:00 00:01:00 DIS Outpatient DINORA GREEN [facility] ONC [id number] 12/23/2013 10:56:00 23:59:59 CLS Outpatient ANGEL FLOWERS S BANQUET SUPERVISOR [facility] ONC [id number] 10/14/2013 13:21:00 00:01:00 DIS Outpatient DINORA GREEN [facility] ONC [id number] 10/28/2013 15:43:00 23:59:59 CLS Outpatient DELILAH FRIAS MD [facility] LAB [id number] 09/02/2013 12:58:00 23:59:59 CLS Outpatient ANGEL FLOWERS S [employer]ANQUET SUPERVISOR [facility] ONC [id number] 08/16/2013 12:33:00 23:59:59 CLS Outpatient DINORA GREEN V [facility] RAD ABN MAMMO [id number] 05/20/2013 13:03:00 014 00:01:00 DIS Outpatient DINORA GREEN [facility] ONC [id number] 07/22/2013 14:03:00 23:59:59 CLS Outpatient ANGEL FLOWERS BANQUET SUPERVISOR [facility] RAD [id number] 07/22/2013 12:48:00 23:59:59 CLS Outpatient ANGEL FLOWERS BANQUET SUPERVISOR [facility] ONC [id number] 05/27/2013 10:28:00 23:59:59 CLS Outpatient PATRICIA TY, JULIETTE Infante [facility] LAB [id number] 04/29/2013 13:23:00 00:01:00 DIS Outpatient DINORA GREEN V [facility] ONC [id number] 04/27/2013 14:57:00 23:59:59 CLS Outpatient SAURABH TY, PAIGE Benitez [facility] RAD COUGH RT SIDE W HEEZES [id number] 04/22/2013 13:02:00 23:59:59 CLS Outpatient EZ TY, TAPAN Carvajal [facility] RAD CHRONIC SINUSITIS [id number] 04/14/2013 07:54:00 23:59:59 CLS Outpatient KARENA PALACIOS [facility] RAD CAD,COPD,PA LP [id number] 04/01/2013 13:46:00 23:59:59 CLS Outpatient ANGEL FLOWERS BANQUET SUPERVISOR [facility] ONC [id number] 02/23/2013 13:07:00 23:59:59 CLS Outpatient ANGEL FLOWERS BANQUET SUPERVISOR [facility] RAD SIX MONTH FOLLO W-UP ON ABN MAMMO [id number] 02/04/2013 13:19:00 23:59:59 CLS Outpatient ANGEL FLOWERS BANQUET SUPERVISOR [facility] ONC [id number] 01/27/2013 10:32:00 00:01:00 DIS Outpatient DINORA GREEN V [facility] ONC [id number] 01/03/2020 12:20:00 P EN Preadmit LINDA MCCARTNEY DO [facility] ENDO BLOOD IN STOOL/DIARRHEA [id number] 02/25/2018 20:15:00 Document Registration [id number] 05/23/2016 09:43:00 Document Registration [id number] 01/31/2015 11:09:00 Document Registration [id number] 01/31/2015 11:09:00 Document Registration [id number] 10/21/2014 17:39:00 Document Registration [id number] 10/06/2014 11:52:00 Document Registration [id number] 09/27/2014 15:00:00 Document Registration [id number] 09/26/2014 14:29:00 Document Registration [id number] 09/14/2014 11:36:00 Document Registration [id number] 11/12/2012 10:29:00 Document Registration [id number] 10/22/2012 15:18:00 Document Registration [id number] 10/15/2012 14:22:00 Document Registration [id number] 09/25/2012 07:45:00 Document Registration [id number] 09/17/2012 11:58:00 Document Registration [id number] 09/12/2012 14:53:00 Document Registration [id number] 09/03/2012 13:47:00 Document Registration [id number] 08/26/2012 13:26:00 Document Registration [id number] 08/14/2012 11:07:00 Document Registration [id number] 08/14/2012 09:57:00 Document Registration [id number] 08/13/2012 15:05:00 Document Registration [id number] 08/06/2012 13:34:00 Document Registration [id number] 08/03/2012 11:10:00 Document Registration [id number] 07/28/2012 00:00:00 Document Registration [id number] 07/23/2012 16:03:00 Document Registration [id number] 07/02/2012 13:43:00 Document Registration [id number] 06/19/2012 06:00:00 Document Registration [id number] 05/21/2012 13:57:00 Document Registration [id number] 05/01/2012 13:12:00 Document Registration [id number] 04/02/2012 10:23:00 Document Registration [id number] 03/19/2012 10:14:00 Document Registration [id number] 01/22/2012 08:52:00 Document Registration [id number] 01/02/2012 14:57:00 Document Registration [id number] 10/24/2011 16:08:00 Document Registration [id number] 10/03/2011 13:01:00 Document Registration [id number] 08/22/2011 11:47:00 Document Registration [id number] 07/18/2011 09:50:00 Document Registration [id number] 07/04/2011 13:50:00 Document Registration [id number] 06/27/2011 13:00:00 Document Registration [id number] 05/01/2011 05:31:00 Document Registration [id number] 04/30/2011 07:42:00 Document Registration [id number] 04/08/2011 14:59:00 Document Registration [id number] 03/25/2011 10:00:00 Document Registration [id number] 03/20/2011 10:40:00 Document Registration [id number] 03/12/2011 11:37:00 Document Registration [id number] 03/05/2011 08:13:00 Document Registration [id number] 03/04/2011 09:27:00 Document Registration [id number] 02/14/2011 14:24:00 Document Registration [id number] 02/06/2011 07:37:00 Document Registration [id number] 02/05/2011 11:32:00 Document Registration [id number] 01/31/2011 12:04:00 Document Registration [id number] 01/07/2011 14:25:00 Document Registration [id number] 11/15/2010 11:12:00 Document Registration [id number] 09/10/2010 13:49:00 Document Registration [id number] 08/08/2010 15:33:00 Document Registration [id number] 07/30/2010 16:54:00 Document Registration [id number] 04/26/2010 15:38:00 Document Registration [id number] 04/20/2010 10:46:00 Document Registration [id number] 01/10/2010 14:19:00 Document Registration [id number] 01/10/2010 09:02:00 Document Registration [id number] 12/27/2009 14:22:00 Document Registration [id number] 12/22/2009 12:22:00 Document Registration [id number] 11/20/2009 15:02:00 Document Registration [id number] 10/30/2009 09:17:00 Document Registration [id number] 10/23/2009 09:56:00 Document Registration [id number] 10/11/2009 13:44:00 Document Registration [id number] 10/05/2009 08:46:00 Document Registration [id number] 09/20/2009 14:23:00 Document Registration [id number] 08/30/2009 09:24:00 Document Registration
--- NOTE | 2020-01-03 13:12 | Anesthesia-General Post-Op ---
MAC Patient Condition Mental Status/LOC: Same as Preop Cardiovascular: Satisfactory Nausea/Vomiting: Absent Respiratory: Satisfactory Pain: Controlled Complications: Absent Post Op Complications Complications None Follow Up Care/Instructions Patient Instructions None needed. Anesthesiology Discharge Order Discharge Order Patient was seen after the procedure and she was doing well, no complaints, stable vital signs, no apparent adverse anesthesia problems. KEHINDE WYNN DO Jan 03, 2020 13:12
--- NOTE | 2020-01-04 01:30 | OPERATIVE REPORT ---
DATE OF SERVICE: PREOPERATIVE DIAGNOSES: Blood in stool and diarrhea. POSTOPERATIVE DIAGNOSES: Colitis and internal hemorrhoids. PROCEDURE: Colonoscopy with hot biopsy as well as brushing. SURGEON: Anibal Porter DO CASE FINISHER: None. ANESTHESIA: IV sedation by the anesthesiologist. SPECIMEN: Cecal biopsy, ascending colon, brushing and stool for culture. BLOOD LOSS: Scant. FLUIDS: Per anesthesia. POSTOPERATIVE CONDITION: Stable. INDICATION FOR PROCEDURE: The patient is an 84-year-old female, who has been having some chronic diarrhea that had not gone away until she had a little bit of Imodium, also noted some blood in the stool. FINDINGS: The patient had some colitis in the cecum also had some areas of mucus covering the brewer, did not really see any ulcerations, but in the cecum where the colitis was actually active, but very-very slow oozing of blood. PROCEDURE NOTE: After informed consent was obtained, the patient was brought to the endoscopy suite, placed in bed in left lateral decubitus position. She was administered IV sedation by the anesthesiologist, who then monitored her vitals the entire time, heart rate, blood pressure and pulse ox. Inserted the scope, pushed all the way into about [address], noted a lot of fecal material and some what looked like mucus, able to get to the cecum and saw areas of bleeding from the wall. Suctioned out as much of the fecal material as possible and then elected to do a biopsy of this area, did a couple biopsies from the cecum and then slowly withdrew the scope insufflating to look circumferentially at the brewer, looking the cecum, up the ascending colon. Throughout the ascending colon and transverse colon, there was some mucousy material. Did a brushing of the wall to get some of this and then elected to flush this with saline and suction some of this out to send 2 separate specimens for cytology as well as for cultures, took a picture of this on the way out again of the ascending colon, the transverse colon and then down the transverse colon, the splenic flexure, into the descending colon down in the sigmoid and finally into the rectum, retroflexed in rectal vault, saw some internal hemorrhoids, took a picture of this and then removed the scope. The patient tolerated the procedure and she was recovered in endoscopy suite. Job ID: [id number] DocumentID: [id number] Dictated Date: 01/03/2020 16:57:11 [employer] Date: 01/04/2020 01:30:18 Dictated By: ANIBAL PORTER DO
== END 2020-01-03 13:55 | disposition home or self-care (01) ==
LOC: ENDO 10:18
PROVIDERS: ATTEND Surgery
DX: K52.9 Noninfective gastroenteritis and colitis, unspecified (principal); K64.8 Other hemorrhoids; I10 Essential (primary) hypertension; I25.10 Atherosclerotic heart disease of native coronary artery without angina pectoris; E78.5 Hyperlipidemia, unspecified; J45.909 Unspecified asthma, uncomplicated; G47.33 Obstructive sleep apnea (adult) (pediatric); N18.9 Chronic kidney disease, unspecified; K21.9 Gastro-esophageal reflux disease without esophagitis; E11.9 Type 2 diabetes mellitus without complications; E03.9 Hypothyroidism, unspecified; Z95.5 Presence of coronary angioplasty implant and graft; Z79.4 Long term (current) use of insulin; Z79.899 Other long term (current) drug therapy; Z96.653 Presence of artificial knee joint, bilateral; Z89.519 Acquired absence of unspecified leg below knee
CPT/HCPCS: 82962; 87015; 87045; 87046; 87070; 87899; 88112

== ENCOUNTER 2020-01-09 14:00 | Inpatient (IN) | payer MEDICARE, MEDICAID ==
[2020-01-09] VITALS (9 sets, daily range): BP systolic 96–121; BP diastolic 40–77
[2020-01-09] MEDS: LACTATED RINGERS 1,000 ML IV SCH ×2 (13:45→15:15)
--- NOTE | 2020-01-09 14:10 | NUR ---
Kerline aguirre in [facility] - 01/09/20 at 1520 by PMCCLURE LG LIQUID DIARRHEA STOOL
--- NOTE | 2020-01-09 14:10 | NUR ---
PATIENT HAD LG LIQUID STOOL
[2020-01-09] MEDS ORDERED: LOPERAMIDE 2 MG (IMODIUM) TABLET PO ONE ×2 (14:15→22:30)
--- NOTE | 2020-01-09 14:15 | ED General ---
General Chief Complaint: General Problems/Pain Stated Complaint: FATIGUE Source of Information: Patient Exam Limitations: No Limitations History of Present Illness Date Seen by Provider: Jan 09, 2020 Time Seen by Provider: 14:11 Initial Comments To all [facility] walk-in clinic with reports of diarrhea and hypotension. She's had diarrhea frequently for nearly 8 weeks. She was admitted recently for this, had colonoscopy with biopsies done during that admission.She was noted to be hypotensive at 70's/50s with lethargy at [facility] which prompted transfer to ER. Colonoscopy brushing cytology report showed no malignant cells, numerous fungal yeast with few pseudohyphae suggestive of donnell, biopsy showed focal active colitis with differential including infectious colitis, adverse drug effect or bowel preparation artifact. Timing/Duration: 1-2 Days Severity: Moderate Associated Systoms: No Fever/Chills, No Nausea/Vomiting Allergies and Home Medications Allergies Coded Allergies: Penicillins (Verified Allergy, Unknown, Pt has received Ceftriaxone in the past, 05/13/18) influenza virus vaccine, specific (Verified Adverse Reaction, Unknown, Not allergic just won't take Flu vaccine, 05/13/18) Home Medications Acetaminophen 500 Mg Tablet, 500 MG PO Q6H PRN for PAIN-MILD, (Reported) Albuterol Sulfate 18 Gm Hfa.aer.ad, 2 PUFF INH Q4H PRN for SHORTNESS OF BREATH, (Reported) Amitriptyline HCl 25 Mg Tablet, 25 MG PO HS, (Reported) Atorvastatin Calcium 40 Mg Tablet, 40 MG PO HS, (Reported) Cephalexin 500 Mg Capsule, 500 MG PO BID Prescribed by: SUHA TAYLOR on 01/01/20 1051 Cholestyramine (with Sugar) 4 Gm Powd.pack, 4 GM PO TID PRN for DIARRHEA, ( Reported) Cyclosporine 1 Each Droperette, 1 DROP OU BID, (Reported) Fluticasone/Salmeterol 1 Each Blst.w.dev, 2 PUFF IH HS, (Reported) Furosemide 40 Mg Tablet, 40 MG PO DAILY, (Reported) Insulin Aspart 100 Unit/1 Ml Susp, UNITS SC TIDWM, (Reported) USE PER SLIDING SCALE WITH A MAX OF 50 UNITS PER DAY Insulin Degludec 100 Unit/1 Ml Insuln.pen, 36 UNIT SQ HS, (Reported) Levothyroxine Sodium 125 Mcg Tablet, 125 MCG PO DAILY, (Reported) Loperamide HCl 2 Mg Capsule, 2 MG PO TID PRN for diarrhea Prescribed by: SUHA TAYLOR on 01/01/20 1051 Loratadine 10 Mg Tablet, 10 MG PO DAILY, (Reported) Metoprolol Succinate 25 Mg Tab.er.24h, 25 MG PO BID, (Reported) Mirabegron 25 Mg Tab.er.24h, 25 MG PO DAILY, (Reported) Niacin 1,000 Mg Tab.er.24h, 1,000 MG PO HS, (Reported) Olmesartan Medoxomil 20 Mg Tablet, 10 MG PO DAILY, (Reported) TAKES 1/2 (20MG) TABLET Omeprazole 40 Mg Capsule.dr, 40 MG PO DAILY, (Reported) Pregabalin 100 Mg Capsule, 100 MG PO 0800,1500,2100, (Reported) Sertraline HCl 50 Mg Tablet, 50 MG PO DAILY, (Reported) Tiotropium [place] 1 Inh Aerp, 1 CAP IH HS, (Reported) Triamcinolone Acet 15 Gm Cr, 1 APPLIC TP BID, (Reported) Patient Home Medication List Home Medication List Reviewed: Yes Review of Systems Review of Systems Constitutional: see HPI EENTM: see HPI Respiratory: no symptoms reported Cardiovascular: no symptoms reported Gastrointestinal: diarrhea; No nausea, No vomiting Genitourinary: no symptoms reported Musculoskeletal: no symptoms reported Skin: no symptoms reported Psychiatric/Neurological: No Symptoms Reported Hematologic/Lymphatic: No Symptoms Reported Past Rgyalyf-Qhoifs-Twoznw Hx Patient Social History 2nd Hand Smoke Exposure: No Recent Hopitalizations: No Immunizations Up To Date Tetanus Booster (TDap): Unknown Date of Pneumonia Vaccine: Aug 28, 2012 Seasonal Allergies Seasonal Allergies: Yes Past Medical History Surgeries: Yes (CATARACTS, BILAT KNEE REPLACEMENT,BKA, R arm fx) Appendectomy, Coronary Stent, Eye Surgery, Hysterectomy, Joint Replacement, Orthopedic, Tonsillectomy Respiratory: Yes Sleep Apnea Currently Using CPAP: Yes (with oxygen) Currently Using BIPAP: No Cardiac: Yes (STENTS) Coronary Artery Disease, High Cholesterol, Hypertension Neurological: Yes Dementia 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 Disorders: No Female 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 Disorders: Denies 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 Sexually Transmitted Disease: No HIV/AIDS: No Genitourinary: Yes Kidney Infection, Bladder Infection, Renal Failure, UTI-Chronic Gastrointestinal: Yes Gastroesophageal Reflux, Chronic Constipation, Polyps, Hiatal Hernia Musculoskeletal: Yes Amputee, Arthritis Endocrine: Yes Diabetes, Insulin dep, Hypothyroidsim HEENT: Yes (GLASSES) Cataract Loss of Vision: Bilateral Hearing Impairment: Denies Cancer: No Psychosocial: Yes Anxiety, Depression Integumentary: No Recent Skin Changes Blood Disorders: Yes (ANEMIA) Adverse Reaction/Blood Tranf: No Family Medical History Arthritis Cardiovascular disease Diabetes mellitus Hypertension Diabetes, Hypertension Physical Exam Vital Signs Vital Signs - First Documented 01/09/20 14:05 Pulse 75 Resp 18 B/P (MAP) 66/33 (44) Pulse Ox 96 O2 Delivery Room Air Capillary Refill : Height, Weight, BMI Height: 5'7.00" Weight: 182lbs. 0oz. 82.022681dw; 28.83 BMI Method:Stated General Appearance: WD/WN, Other (lethargic, blood pressure 66/33 initially, repeat blood pressures are 73/50. Only one small peripheral IV access could be obtained. As such did go ahead and place a central line in the right internal jugular under ultrasound guidance.) Eyes: Bilateral Eye Normal Inspection, Bilateral Eye PERRL HEENT: PERRL/EOMI, TMs Normal Neck: Full Range of Motion, Normal Inspection Respiratory: No Accessory Muscle Use, No Respiratory Distress Cardiovascular: Regular Rate, Rhythm, Normal Peripheral Pulses Gastrointestinal: Soft, Distended (high pitched hyperactive bowel sounds); No Tenderness Extremity: Normal Capillary Refill, Normal Inspection Neurologic/Psychiatric: Alert, Oriented x3 Skin: Normal Color, Warm/Dry Focused Exam Lactate Level 01/09/20 15:15: Lactic Acid Level 1.36 Lactic Acid Level Laboratory Tests Test 01/09/20 15:15 Lactic Acid Level 1.36 MMOL/L (0.50-2.00) Procedures/Interventions Lumen: triple Position: internal jugular (R) Anesthesia: local Post Position: sutured, good blood return Progress/Results/Core Measures Suspected Sepsis SIRS Temperature: Pulse: Respiratory Rate: Laboratory Tests 01/09/20 14:40: White Blood Count 27.3H Blood Pressure / Mean: 01/09/20 15:15: Lactic Acid Level 1.36 Laboratory Tests 01/09/20 14:40: Creatinine 6.90H, Platelet Count 315, Total Bilirubin 0.4 Results/Orders Lab Results Laboratory Tests Test 01/09/20 14:40 01/09/20 14:48 01/09/20 15:15 01/09/20 15:36 Range/Units White Blood Count 27.3 H 4.3-11.0 10^3/uL Red Blood Count 4.06 L 4.35-5.85 10^6/uL Hemoglobin 10.9 L 11.5-16.0 G/DL Hematocrit 35 35-52 % Mean Corpuscular Volume 86 80-99 FL Mean Corpuscular Hemoglobin 27 25-34 PG Mean Corpuscular Hemoglobin Concent 31 L 32-36 G/DL Red Cell Distribution Width 18.0 H 10.0-14.5 % Platelet Count 315 130-400 10^3/uL Mean Platelet Volume 10.2 7.4-10.4 FL Neutrophils (%) (Auto) 76 H 42-75 % Lymphocytes (%) (Auto) 19 12-44 % Monocytes (%) (Auto) 6 0-12 % Eosinophils (%) (Auto) 0 0-10 % Basophils (%) (Auto) 0 0-10 % Neutrophils # (Auto) 20.6 H 1.8-7.8 X 10^3 Lymphocytes # (Auto) 5.1 H 1.0-4.0 X 10^3 Monocytes # (Auto) 1.6 H 0.0-1.0 X 10^3 Eosinophils # (Auto) 0.0 0.0-0.3 10^3/uL Basophils # (Auto) 0.0 0.0-0.1 10^3/uL Neutrophils % (Manual) 62 % Lymphocytes % (Manual) 27 % Monocytes % (Manual) 3 % Band Neutrophils 8 % Toxic Granulation 2+ Polychromasia SLIGHT Anisocytosis SLIGHT Microcytosis SLIGHT Sodium Level 135 135-145 MMOL/L Potassium Level 3.7 3.6-5.0 MMOL/L Chloride Level 112 H 98-107 MMOL/L Carbon Dioxide Level 6 *L 21-32 MMOL/L Anion Gap 17 H 5-14 MMOL/L Blood Urea Nitrogen 51 H 7-18 MG/DL Creatinine 6.90 H 0.60-1.30 MG/DL Estimat Glomerular Filtration Rate 6 BUN/Creatinine Ratio 7 Glucose Level 169 H 70-105 MG/DL Calcium Level 9.0 8.5-10.1 MG/DL Corrected Calcium 8.9 8.5-10.1 MG/DL Total Bilirubin 0.4 0.1-1.0 MG/DL Aspartate Amino Transf (AST/SGOT) 19 5-34 U/L Alanine Aminotransferase (ALT/SGPT) 22 0-55 U/L Alkaline Phosphatase 135 40-136 U/L Total Protein 7.3 6.4-8.2 GM/DL Albumin 4.1 3.2-4.5 GM/DL Procalcitonin 0.74 H <0.10 NG/ML Lactic Acid Level 1.36 0.50-2.00 MMOL/L Urine Color YELLOW Urine Clarity CLOUDY Urine pH 5.0 5-9 Urine Specific [place] >=1.030 1.016-1.022 Urine Protein 3+ H NEGATIVE Urine Glucose (UA) NEGATIVE NEGATIVE Urine Ketones NEGATIVE NEGATIVE Urine Nitrite NEGATIVE NEGATIVE Urine Bilirubin NEGATIVE NEGATIVE Urine Urobilinogen 0.2 < = 1.0 MG/DL Urine Leukocyte Esterase 1+ H NEGATIVE Urine RBC (Auto) TRACE-L NEGATIVE Urine RBC 10-25 H /HPF Urine WBC 50-100 H /HPF Urine Crystals PRESENT H /LPF Urine Amorphous Sediment MOD DENNIS URATES H /LPF Urine Bacteria LARGE H /HPF Urine Casts NONE /LPF Urine Mucus NEGATIVE /LPF Urine Yeast MODERATE H /HPF Urine Culture Indicated YES My Orders Orders - DIETER LOVE APRN Cbc With Automated Diff (01/09/20 14:02) Comprehensive Metabolic Panel (01/09/20 14:02) Ua Culture If Indicated (01/09/20 14:02) Ed Iv/Invasive Line Start (01/09/20 14:02) Lactated Ringers (Lr 1000 Ml Iv Solution (01/09/20 14:15) Ct Abdomen/Pelvis Wo (01/09/20 14:08) Loperamide Tablet (Imodium Tablet) (01/09/20 14:15) Manual Differential (01/09/20 14:40) Blood Culture (01/09/20 14:54) Lactic Acid Analyzer (01/09/20 14:54) Procalcitonin (Pct) (01/09/20 14:54) C Difficile Ag + Toxin A/B. (01/09/20 15:26) Isolation Central Supply Req (01/09/20 15:26) Lactated Ringers (Lr 1000 Ml Iv Solution (01/09/20 15:45) Alejandra Cath (01/09/20 15:48) Metronidazole 500mg/100ml Ivpb (Flagyl 5 (01/09/20 16:00) Ceftriaxone For Iv Use (Rocephin For I (01/09/20 16:00) Urine Culture (01/09/20 15:36) Norepinephrine 4 Mg/250 Ml (Norepinephri (01/09/20 16:15) Ceftriaxone For Iv Use (Rocephin For I (01/09/20 16:15) Medications Given in ED Current Medications Medications Dose Ordered Sig/Maxim Route Start Time Stop Time Status Last Admin Dose Admin Loperamide HCl 4 mg ONCE ONCE PO 01/09/20 14:15 01/09/20 14:16 DC 01/09/20 15:05 4 MG Vital Signs/I&O 01/09/20 01/09/20 01/09/20 01/09/20 14:05 15:27 16:11 16:23 Pulse 75 71 74 80 Resp 18 18 18 B/P (MAP) 66/33 (44) 96/47 (63) 98/47 106/60 Pulse Ox 96 95 98 O2 Delivery Room Air Capillary Refill : Diagnostic Imaging Comments NAME: CARLOS SERRA [facility] REC#: [id number] PT STATUS: REG ER : 1935 PHYSICIAN: JOSUÉ ALLEN MD ADMIT DATE: 01/09/20/ER Draft Date of Exam:01/09/20 CHEST 1 VIEW, AP/PA ONLY INDICATION: Central line placement. TIME OF EXAM: 2:55 p.m. COMPARISON: Correlation is made with prior chest from 09/15/2019. FINDINGS: Right IJ line tip is overlying the SVC. Lungs are clear. There is no pneumothorax. There is no effusion. IMPRESSION: Central line placement. No pneumothorax is detected. Dictated on workstation # [id number] Dict: 01/09/20 1501 Trans: 01/09/20 1506 [facility] [id number] Interpreted by: KAVON MURRIETA MD Electronically signed by: NAME: CARLOS SERRA [facility] REC#: [id number] PT STATUS: REG ER : 1935 PHYSICIAN: DIETER LOVE APRN ADMIT DATE: 01/09/20/ER Draft Date of Exam:01/09/20 CT ABDOMEN/PELVIS WO PROCEDURE: CT abdomen and pelvis without contrast. TECHNIQUE: Multiple contiguous axial images were obtained through the abdomen and pelvis without the use of intravenous contrast. Auto Exposure Controls were utilized during the CT exam to meet ALARA standards for radiation dose reduction. INDICATION: Diarrhea for 8 weeks and weakness. COMPARISON: Correlation is made with prior CT from 02/04/2015. FINDINGS: There is dependent atelectasis in the lung bases. The liver is unremarkable. Gallbladder is mildly distended and does show some tiny stones within the dependent portion. No biliary ductal dilatation is identified. The pancreas and spleen are unremarkable. The right adrenal gland is unremarkable. Left adrenal mass measures 3.3 cm compared with 3.9 cm on prior exam. The kidneys are unremarkable. Aorta is heavily calcified but nonaneurysmal. The colon is diffusely distended but no definite obstructing lesion is seen. This may be owing to ileus. Small bowel is nondistended. No free fluid or fluid collection is identified. Bladder is decompressed. Uterus appears to be absent or atrophic. IMPRESSION: 1. Cholelithiasis and mild gallbladder distention. Gallbladder ultrasound may be useful for further evaluation. 2. Stable left adrenal mass. 3. Moderate distention to the colon, perhaps owing to ileus. The study is otherwise unremarkable. Dictated on workstation # [id number] Dict: 01/09/20 1509 Trans: 01/09/20 1517 [facility] [phone] Interpreted by: KAVON MURRIETA MD Electronically signed by: Departure Communication (Admissions) Time/Spoke to Admitting Phy: 15:[address] Clark, will admit, consult Dr. Porter. She will receive 1 L of IV fluids which were started by EMS and a second liter from us. 1538-she did have a negative C. difficile study outpatient about 2 weeks ago by primary care. However already ordered here and will treat her as if it is C. difficile colitis until that comes back. Because this would be classified as fulminant disease (hypotension and shock) rather than severe disease she warrants a higher dose of oral vancomycin 500 mg 4 times a day instead of the typical 125 4 times a day. We will also do IV Rocephin and Flagyl. Her blood pressure at this time is 86/49, 2 L of IV fluids still infusing. 1604-2 L of IV fluids had infused, third liter is now infusing. Heart rate 84, respiratory rate 21, blood pressure is currently at 88/47 Which gives a map of 61. We will go ahead and start [place] fed. She does have a urinary tract infection so this hypotension could be both hypovolemic from the diarrhea and septic. 1637-blood pressure on 0.1mcg/kg.min of Levophed is systolic BP of 111. Impression Primary Impression: Hypovolemic shock Additional Impressions: Chronic diarrhea Urinary tract infection Disposition: ADMITTED INPATIENT Condition: Critical Admissions Decision to Admit Reason: Admit from ER (General) Decision to Admit/Date: Jan 09, 2020 Time/Decision to Admit Time: 14:50 Departure-Patient Inst. Referrals: FELICITA CEDEÑO MD (PCP/Family) Primary Care Physician DIETER LOVE APRN Jan 09, 2020 14:14
--- NOTE | 2020-01-09 14:24 | NUR ---
Alena LOVE APRN TO PLACE CENTRAL LINE. UNABLE TO OBTAIN IV ASSCESS . EMS HAS #22 IN R FA.
--- NOTE | 2020-01-09 14:40 | NUR ---
CENTRAL LINE PLACE CXR ORDERED FOR PLACEMENT
--- NOTE | 2020-01-09 14:45 | NUR ---
CENTRAL LINE CLEARNED FOR USE BY Alena LIM APRN Addendum: 01/09/20 at 1530 by PMCCLURE NS STARTED BY EMS CONNECTED TO CENTRAL LINE.
[2020-01-09 14:50] LABS: BASOPHILS % (AUTO) 0 % (0-10); EOSINOPHILS % (AUTO) 0 % (0-10); HEMATOCRIT 35 % (35-52); HEMOGLOBIN 10.9 G/DL (11.5-16.0); LYMPHOCYTES # (AUTO) 5.1 X 10^3 (1.0-4.0); LYMPHOCYTES % (AUTO) 19 % (12-44); MEAN CORPUSCULAR HEMOGLOBIN 27 PG (25-34); MEAN CORPUSCULAR HGB CONC 31 G/DL (32-36); MEAN CORPUSCULAR VOLUME 86 FL (80-99); MEAN PLATELET VOLUME 10.2 FL (7.4-10.4); MONOCYTES # (AUTO) 1.6 X 10^3 (0.0-1.0); MONOCYTES % (AUTO) 6 % (0-12); NEUTROPHILS # (AUTO) 20.6 X 10^3 (1.8-7.8); NEUTROPHILS % (AUTO) 76 % (42-75); PLATELET COUNT 315 10^3/uL (130-400); WHITE BLOOD COUNT 27.3 10^3/uL (4.3-11.0)
[2020-01-09 15:05] LABS: ALBUMIN 4.1 GM/DL (3.2-4.5); POTASSIUM 3.7 MMOL/L (3.6-5.0)
--- NOTE | 2020-01-09 15:06 | Diagnostic Imaging Report ---
INDICATION: Central line placement. TIME OF EXAM: 2:55 p.m. COMPARISON: Correlation is made with prior chest from 09/15/2019. FINDINGS: Right IJ line tip is overlying the SVC. Lungs are clear. There is no pneumothorax. There is no effusion. IMPRESSION: Central line placement. No pneumothorax is detected. Dictated by: Dictated on workstation # [id number]
[2020-01-09 15:07] LABS: TOTAL PROTEIN 7.3 GM/DL (6.4-8.2)
[2020-01-09 15:09] LABS: BILIRUBIN,TOTAL 0.4 MG/DL (0.1-1.0)
[2020-01-09 15:11] LABS: BAND NEUTROPHILS 8 %; CREATININE SERUM 6.9 MG/DL (0.60-1.30); LYMPHOCYTES % (MANUAL) 27 %; MONOCYTES % (MANUAL) 3 %; NEUTROPHILS % (MANUAL) 62 %
[2020-01-09 15:12] LABS: ANISOCYTOSIS SLIGHT; MICROCYTOSIS SLIGHT; POLYCHROMASIA SLIGHT; TOXIC GRANULATION/VACUOLAZATIO 2+
--- NOTE | 2020-01-09 15:18 | Diagnostic Imaging Report ---
PROCEDURE: CT abdomen and pelvis without contrast. TECHNIQUE: Multiple contiguous axial images were obtained through the abdomen and pelvis without the use of intravenous contrast. Auto Exposure Controls were utilized during the CT exam to meet ALARA standards for radiation dose reduction. INDICATION: Diarrhea for 8 weeks and weakness. COMPARISON: Correlation is made with prior CT from 02/04/2015. FINDINGS: There is dependent atelectasis in the lung bases. The liver is unremarkable. Gallbladder is mildly distended and does show some tiny stones within the dependent portion. No biliary ductal dilatation is identified. The pancreas and spleen are unremarkable. The right adrenal gland is unremarkable. Left adrenal mass measures 3.3 cm compared with 3.9 cm on prior exam. The kidneys are unremarkable. Aorta is heavily calcified but nonaneurysmal. The colon is diffusely distended but no definite obstructing lesion is seen. This may be owing to ileus. Small bowel is nondistended. No free fluid or fluid collection is identified. Bladder is decompressed. Uterus appears to be absent or atrophic. IMPRESSION: 1. Cholelithiasis and mild gallbladder distention. Gallbladder ultrasound may be useful for further evaluation. 2. Stable left adrenal mass. 3. Moderate distention to the colon, perhaps owing to ileus. The study is otherwise unremarkable. Dictated by: Dictated on workstation # [id number]
--- NOTE | 2020-01-09 15:24 | NUR ---
CALLED AND GAVE UP DATE TO DAUGHTER KLARISSA
--- NOTE | 2020-01-09 15:37 | NUR ---
ABERNATHY PLACED UA TO LAB
[2020-01-09] MEDS ORDERED: LACTATED RINGERS 1,000 ML IV SCH ×2 (15:45→17:00)
[2020-01-09 15:47] LABS: BILIRUBIN,URINE NEGATIVE (NEGATIVE); CLARITY,URINE CLOUDY; COLOR,URINE YELLOW; GLUCOSE, URINE (UA) NEGATIVE (NEGATIVE); KETONES,URINE NEGATIVE (NEGATIVE); LEUKOCYTE ESTERASE ,URINE 1+ (NEGATIVE); NITRITE,URINE NEGATIVE (NEGATIVE); PROTEIN,URINE 3+ (NEGATIVE)
[2020-01-09 15:55] LABS: BACTERIA,URINE LARGE /HPF; WBC,URINE 50-100 /HPF
[2020-01-09 15:56] LABS: AMORPHOUS SEDIMENT,UR MOD AMOR URATES /LPF; YEAST,URINE MODERATE /HPF
[2020-01-09] MEDS ORDERED: cefTRIAXone FOR IV USE 1,000 MG in WATER (STERILE) FOR INJECTION 10 ML IV ONE (16:00)
[2020-01-09] MEDS ORDERED: metroNIDAZOLE 500MG/100ML IVPB 100 ML IV ONE (16:00)
--- OUTSIDE RECORDS SUMMARY | 2020-01-09 16:10 | XMS REPORT | Continuity of Care Document ---
Author Organization Unknown Address Unknown Phone Unavailable Allergies Active Description Code Type Severity Reaction Onset Reported/Identified Relationship to Patient Clinical Status Yes Influenza Virus Vacc,Specific [id number] Drug Allergy Unknown N/A 02/02/2015 Yes influenza virus vaccine, specific [id number] Drug Allergy Unknown N/A 015 Yes Penicillins [id number] Drug Aller gy Unknown N/A 02/02/2015 Yes influenza virus vaccine, specific [id number] Drug Allergy Unknown Not allergic ju 05/13/2018 Yes Penicillins [id number] Drug Aller gy Unknown Pt has received 05/13/2018 Medications There is no data. Problems Date Dx Coded Attending Type Code Diagnosis Diagnosed By DINORA GREEN Ot D63.1 ANEMIA IN CHRONIC KIDNEY DISEASE DINORA GREEN N Ot N18.3 CHRONIC KIDNEY DISEASE, STAGE 3 (MODERAT DINORA GREEN N Ot Z79.899 OTHER ASSISTED (CURRENT) DRUG THERAPY 06/26/1099 DINORA GREEN N Ot D50.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 06/26/1099 DINORA GREEN N Ot D63.1 ANEMIA IN CHRONIC KIDNEY DISEASE 06/26/1099 DINORA GREEN N Ot N18.3 CHRONIC KIDNEY DISEASE, STAGE 3 (MODERAT 06/26/1099 NORMA, BOBAN N Ot Z79.899 OTHER ASSISTED (CURRENT) DRUG THERAPY 06/26/1101 JOSIE GREENAN N Ot D50.9 IRON DEFICIENCY ANEMIA, UNSPECIFIED 06/26/1101 DINORA GREEN N Ot D63.1 ANEMIA IN CHRONIC KIDNEY DISEASE 06/26/1101 DINORA GREEN N Ot E03.9 HYPOTHYROIDISM, UNSPECIFIED 06/26/1101 DINORA GREEN N Ot 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 06/26/1101 DINORA GREEN N Ot E78.2 MIXED HYPERLIPIDEMIA 06/26/1101 DINORA GREEN Ot G47.33 OBSTRUCTIVE SLEEP APNEA (ADULT) (PEDIATR 06/26/1101 NORMADINORA Ot 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 CHRONIC KIDNEY DISEASE W ST 06/26/1101 DINORA GREEN Ot I25.10 ATHSCL HEART DISEASE OF [place] CORONARY 06/26/1101 NORMADINORA Ot I27.20 PULMONARY HYPERTENSION, UNSPECIFIED 06/26/1101 DINORA GREEN Ot I73.9 PERIPHERAL VASCULAR DISEASE, UNSPECIFIED 06/26/1101 NORMADINORA Ot J44.9 CHRONIC OBSTRUCTIVE PULMONARY DISEASE, U 06/26/1101 DINORA GREEN Ot M19.91 PRIMARY OSTEOARTHRITIS, UNSPECIFIED SITE 06/26/1101 DINORA GREEN Ot N18.4 CHRONIC KIDNEY DISEASE, STAGE 4 (SEVERE) 06/26/1101 DINORA GREEN Ot R91.1 SOLITARY PULMONARY NODULE 06/26/1101 DINORA GREEN Ot Z79.4 TRANSMISSION BUILDER (CURRENT) USE OF INSULIN 06/26/1101 DINORA GREEN Ot Z79.82 TRANSMISSION BUILDER (CURRENT) USE OF ASPIRIN 06/26/1101 DINORA GREEN Ot Z79.899 OTHER TRANSMISSION BUILDER (CURRENT) DRUG THERAPY 06/26/1129 CHASITY DE LA CRUZ MD Ot D50. 9 IRON DEFICIENCY ANEMIA, UNSPECIFIED 06/26/1129 CHASITY DE LA CRUZ MD Ot D63. 1 ANEMIA IN CHRONIC KIDNEY DISEASE 06/26/1129 CHASITY DE LA CRUZ MD Ot E03. 9 HYPOTHYROIDISM, UNSPECIFIED 06/26/1129 CHASITY DE LA CRUZ MD Ot E11. 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 2 MIXED HYPERLIPIDEMIA 06/26/1129 CHASITY DE LA CRUZ MD Ot G47. 33 OBSTRUCTIVE SLEEP APNEA (ADULT) (PEDIATR 06/26/1129 CHASITY DE LA CRUZ MD Ot I12. 9 HYPERTENSIVE CHRONIC KIDNEY DISEASE W ST 06/26/1129 CHASITY DE LA CRUZ MD Ot I25. 10 ATHSCL HEART DISEASE OF [place] CORONARY 06/26/1129 CHASITY DE LA CRUZ MD [...] DE LA CRUZ MD, Ot Z79. 4 ASSISTED (CURRENT) USE OF INSULIN 06/26/1129 CHASITY DE LA CRUZ MD, Ot Z79. 82 TRANSMISSION BUILDER (CURRENT) USE OF ASPIRIN 06/26/1129 CHASITY DE LA CRUZ MD, Ot Z79.899 OTHER ASSISTED (CURRENT) DRUG THERAPY 06/26/1211 ARABELLA AGUILERA DO, Ot Z47.89 ENCOUNTER FOR OTHER ORTHOPEDIC AFTERCARE 06/26/1211 ARABELLA AGUILERA DO Ot Z89.512 ACQUIRED ABSENCE OF LEFT LEG BELOW KNEE 06/26/1516 EZ TY, TAPAN Carvajal Ot R49 .0 DYSPHONIA 06/26/1599 ARABELLA AGUILERA DO, Ot Z47.89 ENCOUNTER FOR OTHER ORTHOPEDIC AFTERCARE 06/26/1599 ARABELLA AGUILEAR DO Ot Z89.512 ACQUIRED ABSENCE OF LEFT [...] CHR BLOOD LOSS ANEMIA 01/08/2011 Ot 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, STAGE III (MODER 01/08/2011 [...] 03/21/2011 Ot 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 03/21/2011 Ot 427.31 ATR IAL FIBRILLATION 03/21/2011 Ot 433.10 CAR OTID ARTERY OCCLUSION 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 CEREBRAL IN 03/21/2011 Ot 496 CHR AI RWAY OBSTRUCT NEC 03/21/2011 Ot 535.51 UNS PEC GASTRITIS GASTRODUODENITIS, W/ 03/21/2011 Ot 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, STAGE III (MODER 03/21/2011 [...] 03/26/2011 Ot 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 03/26/2011 Ot 433.10 CAR OTID ARTERY [...] CHR BLOOD LOSS ANEMIA 04/09/2011 Ot 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, STAGE III (MODER 04/09/2011 [...] 05/01/2011 Ot 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 05/01/2011 Ot 496 CHR AI RWAY [...] CHR BLOOD LOSS ANEMIA 07/09/2011 Ot 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, STAGE III (MODER 07/09/2011 [...] NOS TYPE VESSEL, NATIV 10/09/2011 Ot 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, STAGE III (MODER 10/09/2011 Ot V58.69 OTH MED,LT,CURRENT USE 01/08/2012 Ot 270.4 SULP H AMINO-ACID MET DIS 01/08/2012 Ot 280.0 CHR BLOOD LOSS ANEMIA 01/08/2012 Ot 285.21 ANE ASPEN IN CHRONIC KIDNEY DISEASE 01/08/2012 Ot 414.00 COR ON ATHEROSCLER NOS TYPE VESSEL, NATIV 01/08/2012 Ot 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, STAGE III (MODER 01/08/2012 Ot V58.69 OTH MED,LT,CURRENT USE 04/08/2012 Ot 270.4 SULP H AMINO-ACID MET DIS 04/08/2012 Ot 280.0 CHR BLOOD LOSS ANEMIA 04/08/2012 Ot 285.21 ANE ASPEN IN CHRONIC KIDNEY DISEASE 04/08/2012 Ot 414.00 COR ON ATHEROSCLER NOS TYPE VESSEL, NATIV 04/08/2012 Ot 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, STAGE III (MODER 04/08/2012 Ot V58.69 OTH MED,LT,CURRENT USE 07/08/2012 Ot 280.0 CHR BLOOD LOSS ANEMIA 07/08/2012 Ot 285.21 ANE ASPEN IN CHRONIC KIDNEY DISEASE 07/08/2012 Ot 414.00 COR ON ATHEROSCLER NOS TYPE VESSEL, NATIV 07/08/2012 Ot 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, STAGE III (MODER 07/08/2012 [...] NOS TYPE VESSEL, NATIV 07/29/2012 Ot 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, STAGE III (MODER 07/29/2012 [...] 09/05/2012 Ot 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 09/05/2012 Ot 458.0 ORTH OSTATIC HYPOTENSION 09/05/2012 Ot 496 CHR AI RWAY OBSTRUCT NEC 09/05/2012 Ot 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, STAGE III (MODER 09/05/2012 [...] IN CHRONIC KIDNEY DISEASE 10/28/2012 Ot 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, STAGE III (MODER 10/28/2012 [...] BOBRACHELLE N Ot V58.69 06/15/2014 ANGEL FLOWERS ENTRY LEVEL PROJECT ENGINEER Ot 280.9 06/15/2014 ANGEL FLOWERS ENTRY LEVEL PROJECT ENGINEER Ot 285.21 06/15/2014 ANGEL FLOWERS ENTRY LEVEL PROJECT ENGINEER Ot 585.3 06/15/2014 ANGEL FLOWERS ENTRY LEVEL PROJECT ENGINEER Ot V58.69 07/01/2014 JULIETTE GOMEZ MD Ot 272. 4 07/01/2014 PATRICIA TY, JULIETTE Infante Ot 401. 9 07/01/2014 JULIETTE GOMEZ MD Ot 414. 00 07/05/2014 JULIETTE GMOEZ MD Ot 272. 4 07/05/2014 JULIETTE GOMEZ MD Ot 401. 9 07/05/2014 JULIETTE GOMEZ MD Ot 414. 00 07/18/2014 JULIETTE GOMEZ MD Ot 272. 4 07/18/2014 JULIETTE GOMEZ MD Ot 401. 9 07/18/2014 MATT GOMEZ MDHAR J Ot 414. 00 07/18/2014 PATRICIA TY, JULIETTE Infante Ot 272. 4 07/18/2014 PATRICIA TY, JULIETTE Infante Ot 401. 9 07/18/2014 PATRIICA TY, JULIETTE Infante Ot 414. 00 07/20/2014 GALA TY, FRANKLIN A Ot 787. 02 NAUSEA ALONE 07/27/2014 DINORA GREEN N Ot 285.21 07/27/2014 DINORA GREEN N Ot 585.3 07/27/2014 DINORA GREEN N Ot V58.69 08/01/2014 AR ALLEN DO M Ot 496 08/01/2014 ALEJANDRO HUNT AR M Ot 786. 05 08/01/2014 ALEJANDRO HUNT AR M Ot 786. 2 08/01/2014 DINORA GREEN N Ot 285.21 08/01/2014 DINORA GREEN N Ot 585.3 08/01/2014 DINORA GREEN N Ot V58.69 08/01/2014 ANGEL FLOWERS S ENTRY LEVEL PROJECT ENGINEER Ot 280.9 08/01/2014 FLOWERSANGEL Garza S ENTRY LEVEL PROJECT ENGINEER Ot 285.21 08/01/2014 ANGEL FLOWERS S ENTRY LEVEL PROJECT ENGINEER Ot 585.3 08/01/2014 ANGEL FLOWERS S ENTRY LEVEL PROJECT ENGINEER Ot 780.60 08/01/2014 ANGEL FLOWERS S ENTRY LEVEL PROJECT ENGINEER Ot 787.01 08/01/2014 FLOWERS, HILAH S ENTRY LEVEL PROJECT ENGINEER Ot 787.91 08/01/2014 ANGEL FLOWERS S ENTRY LEVEL PROJECT ENGINEER Ot V58.69 08/02/2014 AR ALLEN DO M Ot 496 08/02/2014 AR ALLEN DO M Ot 786. 05 08/02/2014 AR ALLEN DO Ot 786. 2 08/03/2014 FLOWERSANGEL Garza S ENTRY LEVEL PROJECT ENGINEER Ot 280.9 08/03/2014 KRISTIE HILAH S ENTRY LEVEL PROJECT ENGINEER Ot 285.21 08/03/2014 ANGEL FLOWERS S ENTRY LEVEL PROJECT ENGINEER Ot 585.3 08/03/2014 FLOWERS, HILAH S ENTRY LEVEL PROJECT ENGINEER Ot 780.60 08/03/2014 FLOWERS HILAH S ENTRY LEVEL PROJECT ENGINEER Ot 787.01 08/03/2014 ANGEL FLOWERS S ENTRY LEVEL PROJECT ENGINEER Ot 787.91 08/03/2014 ANGEL FLOWERS ENTRY LEVEL PROJECT ENGINEER Ot V58.69 08/10/2014 NORMA, BOBRACHELLE N Ot [...] Ot 496 08/26/2014 AR ALLEN DO Ot 786. 05 08/26/2014 AR ALLEN [...] N Ot V58.69 OTH MED,LT,CURRENT USE 11/10/2014 NROMA, BOBAN N Ot 285.21 11/10/2014 NORMA, BOBAN [...] BOBAN N Ot V58.69 11/29/2014 ANGEL FLOWERS ENTRY LEVEL PROJECT ENGINEER Ot 280.9 11/29/2014 ANGEL FLOWERS ENTRY LEVEL PROJECT ENGINEER Ot 285.21 11/29/2014 MIGUEL FLOWERSAH S ENTRY LEVEL PROJECT ENGINEER Ot 585.4 11/29/2014 KRISTIE ANGEL S ENTRY LEVEL PROJECT ENGINEER Ot 793.11 11/29/2014 KRISTIE ANGEL S ENTRY LEVEL PROJECT ENGINEER Ot V58.69 01/02/2015 AR ALLEN DO M Ot 255. 9 01/02/2015 AR ALLEN DO M Ot 486 01/02/2015 AR ALLEN DO M Ot 496 01/02/2015 ALEJANDRO AR HUNT M Ot 562. 10 01/02/2015 AR ALLEN DO M Ot 786. 05 01/02/2015 AR ALLEN DO M Ot 786. 2 01/02/2015 ALEJANDRO AR HUNT M Ot 793. 11 01/06/2015 ANGEL FLOWERS S ENTRY LEVEL PROJECT ENGINEER Ot 4 86 01/06/2015 MIGUEL FLOWERSJENS S ENTRY LEVEL PROJECT ENGINEER Ot 4 96 01/06/2015 ANGEL FLOWERS S ENTRY LEVEL PROJECT ENGINEER Ot 784.0 01/06/2015 MIGUEL FLOWERSJENS S ENTRY LEVEL PROJECT ENGINEER Ot 786.05 01/06/2015 MIGUEL FLOWERSJENS S ENTRY LEVEL PROJECT ENGINEER Ot 786.2 01/06/2015 MIGUEL FLOWERSJENS S ENTRY LEVEL PROJECT ENGINEER Ot 280.9 01/06/2015 MIGUEL FLOWERSJENS S ENTRY LEVEL PROJECT ENGINEER Ot 285.21 01/06/2015 ANGEL FLOWERS S ENTRY LEVEL PROJECT ENGINEER Ot 585.4 01/06/2015 KRISTIE ANGEL S ENTRY LEVEL PROJECT ENGINEER Ot 793.11 01/06/2015 ANGEL FLOWERS S ENTRY LEVEL PROJECT ENGINEER Ot V58.69 01/18/2015 ALEJANDRO AR HUNT M Ot 255. 9 01/18/2015 ALEJANDRO AR HUNT M Ot 486 01/18/2015 ALEJANDRO AR HUNT M Ot 496 01/18/2015 ALEJANDRO AR HUNT M Ot 562. 10 01/18/2015 ALEJANDRO AR HUNT M Ot 786. 05 01/18/2015 ALEJANDRO AR HUNT M Ot 786. 2 01/18/2015 ALEJANDRO AR HUNT M Ot 793. 11 01/20/2015 ANGEL FLOWERS S ENTRY LEVEL PROJECT ENGINEER Ot 4 86 01/20/2015 ANGEL FLOWERS S ENTRY LEVEL PROJECT ENGINEER Ot 4 96 01/20/2015 ANGEL FLOWERS S ENTRY LEVEL PROJECT ENGINEER Ot 784.0 01/20/2015 ANGEL FLOWERS Ot 786.05 01/20/2015 ANGEL FLOWERS ENTRY LEVEL PROJECT ENGINEER Ot 786.2 01/21/2015 AR ALLEN DO Ot [...] E885.9 01/31/2015 Ot V72.84 01/31/2015 FLOWERSANGEL Garza ENTRY LEVEL PROJECT ENGINEER Ot 793.80 01/31/2015 FLOWERSANGEL Garza ENTRY LEVEL PROJECT ENGINEER Ot V67.9 01/31/2015 Ot 250.00 01/31/2015 Ot 272.4 01/31/2015 Ot 401.9 01/31/2015 FLOWERSANGEL ENTRY LEVEL PROJECT ENGINEER Ot 280.9 01/31/2015 FLOWERSANGEL ENTRY LEVEL PROJECT ENGINEER Ot 285.21 01/31/2015 FLOWERSANGEL Garza ENTRY LEVEL PROJECT ENGINEER Ot 414.00 01/31/2015 FLOWERSANGEL Garza ENTRY LEVEL PROJECT ENGINEER Ot 585.3 01/31/2015 FLOWERSANGEL Garza ENTRY LEVEL PROJECT ENGINEER Ot 599.0 01/31/2015 FLOWERSANGEL Garza ENTRY LEVEL PROJECT ENGINEER Ot V58.69 01/31/2015 FLOWERSANGEL ENTRY LEVEL PROJECT ENGINEER Ot 280.0 01/31/2015 FLOWERSANGEL ENTRY LEVEL PROJECT ENGINEER Ot 285.21 01/31/2015 FLOWERSANGEL Garza ENTRY LEVEL PROJECT ENGINEER Ot 414.00 01/31/2015 FLOWERSANGEL Garza ENTRY LEVEL PROJECT ENGINEER Ot 585.3 01/31/2015 FLOWERSANGEL Garza ENTRY LEVEL PROJECT ENGINEER Ot V58.69 01/31/2015 DINORA GREEN Ot 793.89 [...] Infante Ot 414. 01 01/31/2015 ANGEL FLOWERS ENTRY LEVEL PROJECT ENGINEER Ot 285.21 01/31/2015 ANGEL FLOWERS S ENTRY LEVEL PROJECT ENGINEER Ot 585.3 01/31/2015 ANGEL FLOWERS S ENTRY LEVEL PROJECT ENGINEER Ot V58.69 01/31/2015 ANGEL FLOWERS S ENTRY LEVEL PROJECT ENGINEER Ot 429.3 01/31/2015 ANGEL FLOWERS S ENTRY LEVEL PROJECT ENGINEER Ot 786.09 01/31/2015 ANGEL FLOWERS S ENTRY LEVEL PROJECT ENGINEER Ot 786.2 01/31/2015 ANGEL FLOWERS S ENTRY LEVEL PROJECT ENGINEER Ot 280.9 01/31/2015 ANGEL FLOWERS S ENTRY LEVEL PROJECT ENGINEER Ot 285.21 01/31/2015 ANGEL FLOWERS S ENTRY LEVEL PROJECT ENGINEER Ot 585.3 01/31/2015 ANGEL FLOWERS S ENTRY LEVEL PROJECT ENGINEER Ot V58.69 01/31/2015 ALTAGRACIA TY, DELILAH Borges Ot 250.92 01/31/2015 ALTAGRACIA TY, DELILAH Borges Ot 272.4 01/31/2015 ALTAGRACIA TY, DELILAH Borges Ot 355.9 01/31/2015 ANGEL FLOWERS S ENTRY LEVEL PROJECT ENGINEER Ot 280.9 01/31/2015 ANGEL FLOWERS S ENTRY LEVEL PROJECT ENGINEER Ot 285.21 01/31/2015 ANGEL FLOWERS S ENTRY LEVEL PROJECT ENGINEER Ot 585.3 01/31/2015 ANGEL FLOWERS S ENTRY LEVEL PROJECT ENGINEER Ot V58.69 01/31/2015 FLOWERSANGEL Garza S ENTRY LEVEL PROJECT ENGINEER Ot 280.9 01/31/2015 ANGEL FLOWERS S ENTRY LEVEL PROJECT ENGINEER Ot 285.21 01/31/2015 ANGEL FLOWERS S ENTRY LEVEL PROJECT ENGINEER Ot 585.3 01/31/2015 ANGEL FLOWERS S ENTRY LEVEL PROJECT ENGINEER Ot V58.69 01/31/2015 LEXIE GONZALES ENTRY LEVEL PROJECT ENGINEER Ot 496 01/31/2015 LEXIE GONZALES ENTRY LEVEL PROJECT ENGINEER Ot 786.39 01/31/2015 LEXIE GONZALES ENTRY LEVEL PROJECT ENGINEER Ot 786.2 01/31/2015 LEXIE GONZALES ENTRY LEVEL PROJECT ENGINEER Ot 786.30 01/31/2015 LEXIE GONZALES ENTRY LEVEL PROJECT ENGINEER Ot 793.11 01/31/2015 LEXIE GONZALES ENTRY LEVEL PROJECT ENGINEER Ot 786.39 01/31/2015 PATRICIA TY, JULIETTE Infante Ot 272. 4 01/31/2015 PATRICIA TY, JULIETTE Infante Ot 401. 9 01/31/2015 PATRICIA TY, JULIETTE Infante Ot 414. 00 01/31/2015 PATRICIA TY, JULIETTE Infante Ot 272. 4 01/31/2015 PATRICIA TY, JULIETTE Infante Ot 401. 9 01/31/2015 PATRICIA TY, JULIETTE Ifnante Ot 414. 00 01/31/2015 Ot 496 01/31/2015 Ot 786.05 01/31/2015 Ot 786.2 01/31/2015 AR ALLEN DO Ot 496 01/31/2015 AR ALLEN DO Ot 786. 05 01/31/2015 AR ALLEN DO Ot 786. 2 01/31/2015 ANGEL FLOWERS ENTRY LEVEL PROJECT ENGINEER Ot 280.9 01/31/2015 ANGEL FLOWERS ENTRY LEVEL PROJECT ENGINEER Ot 285.21 01/31/2015 ANGEL FLOWERS ENTRY LEVEL PROJECT ENGINEER Ot 585.3 01/31/2015 FLOWERSANGEL Garza S ENTRY LEVEL PROJECT ENGINEER Ot 780.60 01/31/2015 FLOWERSANGEL Garza S ENTRY LEVEL PROJECT ENGINEER Ot 787.01 01/31/2015 FLOWERSANGEL Garza S ENTRY LEVEL PROJECT ENGINEER Ot 787.91 01/31/2015 FLOWERSANGEL Garza S ENTRY LEVEL PROJECT ENGINEER Ot V58.69 01/31/2015 GALA TY, FELICITA Borges [...] 01/31/2015 Ot 244.9 01/31/2015 FLOWERS ANGEL Garza ENTRY LEVEL PROJECT ENGINEER Ot 280.9 01/31/2015 FLOWERS ANGEL S ENTRY LEVEL PROJECT ENGINEER Ot 285.21 01/31/2015 KRISTIE ANGEL S ENTRY LEVEL PROJECT ENGINEER Ot 585.4 01/31/2015 KRISTIE ANGEL S ENTRY LEVEL PROJECT ENGINEER Ot 793.11 01/31/2015 KRISTIE ANGEL S ENTRY LEVEL PROJECT ENGINEER Ot V58.69 01/31/2015 NORMA JOSIERACHELLE N Ot 285.21 01/31/2015 DINORA GREEN Ot 585.3 01/31/2015 NORMADINORA REYES Ot V58.69 01/31/2015 FLOWERS ANGEL S ENTRY LEVEL PROJECT ENGINEER Ot 285.21 01/31/2015 KRISTIE ANGEL S ENTRY LEVEL PROJECT ENGINEER Ot 585.4 01/31/2015 KRISTIE ANGEL S ENTRY LEVEL PROJECT ENGINEER Ot V58.69 01/31/2015 FLOWERS ANGEL S ENTRY LEVEL PROJECT ENGINEER Ot 4 86 01/31/2015 FLOWERSANGEL Garza S ENTRY LEVEL PROJECT ENGINEER Ot 4 96 01/31/2015 FLOWERS ANGEL S ENTRY LEVEL PROJECT ENGINEER Ot 784.0 01/31/2015 KRISTIE ANGEL S ENTRY LEVEL PROJECT ENGINEER Ot 786.05 01/31/2015 KRISTIE ANGEL S ENTRY LEVEL PROJECT ENGINEER Ot 786.2 01/31/2015 AR ALLEN DO Ot [...] MD Ot 414.0 1 CORONARY ATHEROSCLEROSIS OF [place] CORON 02/08/2015 FELICITA CEDEÑO MD Ot 477.9 [...] USE OF INSULIN 02/09/2015 ANGEL FLOWERS S ENTRY LEVEL PROJECT ENGINEER Ot 4 86 02/09/2015 ANGEL FLOWERS S ENTRY LEVEL PROJECT ENGINEER Ot 4 96 02/09/2015 ANGEL FLOWERS S ENTRY LEVEL PROJECT ENGINEER Ot 784.0 02/09/2015 ANGEL FLOWERS S ENTRY LEVEL PROJECT ENGINEER Ot 786.05 02/09/2015 ANGEL FLOWERS ENTRY LEVEL PROJECT ENGINEER Ot 786.2 02/14/2015 MIKE TY, LINDA E [...] E Ot 414.0 1 CORONARY ATHEROSCLEROSIS OF [place] CORON 02/14/2015 MIKE TY, LINDA E Ot [...] V15.8 8 HISTORY OF FALL 02/14/2015 LINDA MCKEON MD Ot V46.2 SUPPLEMENTAL OXYGEN 02/14/2015 LINDA MCKEON MD Ot V57.8 9 REHABILITATION PROC NEC 02/14/2015 LINDA MCKEON MD Ot V58.6 7 LONG-TERM (CURRENT) USE OF INSULIN 02/15/2015 ANGEL FLOWERS ENTRY LEVEL PROJECT ENGINEER Ot 4 86 02/15/2015 ANGEL FLOWERS ENTRY LEVEL PROJECT ENGINEER Ot 4 96 02/15/2015 ANGEL FLOWERS ENTRY LEVEL PROJECT ENGINEER Ot 784.0 02/15/2015 ANGEL FLOWERS ENTRY LEVEL PROJECT ENGINEER Ot 786.05 02/15/2015 ANGEL FLOWERS ENTRY LEVEL PROJECT ENGINEER Ot 786.2 02/16/2015 NORMA, BOBAN N Ot [...] BOBAN N Ot V58.69 03/15/2015 ANGEL FLOWERS ENTRY LEVEL PROJECT ENGINEER Ot 280.0 03/15/2015 ANGEL FLOWERS ENTRY LEVEL PROJECT ENGINEER Ot 285.21 03/15/2015 ANGEL FLOWERS ENTRY LEVEL PROJECT ENGINEER Ot 585.3 03/15/2015 FLOWERSANGEL Garza S ENTRY LEVEL PROJECT ENGINEER Ot 599.0 03/15/2015 FLOWERSANGEL S ENTRY LEVEL PROJECT ENGINEER Ot 793.11 03/15/2015 FLOWERSMIGUEL S ENTRY LEVEL PROJECT ENGINEER Ot V58.69 03/27/2015 FLOWERSMIGUEL S ENTRY LEVEL PROJECT ENGINEER Ot 280.0 03/27/2015 FLOWERSMIGUEL S ENTRY LEVEL PROJECT ENGINEER Ot 285.21 03/27/2015 FLOWERSMIGUEL S ENTRY LEVEL PROJECT ENGINEER Ot 585.3 03/27/2015 FLOWERSMIGUEL S ENTRY LEVEL PROJECT ENGINEER Ot 599.0 03/27/2015 FLOWERSMIGUEL S ENTRY LEVEL PROJECT ENGINEER Ot 793.11 03/27/2015 FLOWERSMIGUEL S ENTRY LEVEL PROJECT ENGINEER Ot V58.69 04/05/2015 FLOWERSMIGUEL S ENTRY LEVEL PROJECT ENGINEER Ot 280.0 04/05/2015 FLOWERSMIGUEL S ENTRY LEVEL PROJECT ENGINEER Ot 285.21 04/05/2015 FLOWERS, HIL S ENTRY LEVEL PROJECT ENGINEER Ot 585.3 04/05/2015 FLOWERS, HIL S ENTRY LEVEL PROJECT ENGINEER Ot 599.0 04/05/2015 FLOWERS, HIL S ENTRY LEVEL PROJECT ENGINEER Ot 793.11 04/05/2015 FLOWERS, HIL S ENTRY LEVEL PROJECT ENGINEER Ot V58.69 04/20/2015 FLOWERS, HIL S ENTRY LEVEL PROJECT ENGINEER Ot 280.0 04/20/2015 FLOWERS, HIL S ENTRY LEVEL PROJECT ENGINEER Ot 285.21 04/20/2015 FLOWERSANGEL Garza S ENTRY LEVEL PROJECT ENGINEER Ot 585.3 04/20/2015 FLOWERSMIGUEL S ENTRY LEVEL PROJECT ENGINEER Ot 599.0 04/20/2015 FLOWERSMIGUEL S ENTRY LEVEL PROJECT ENGINEER Ot 793.11 04/20/2015 FLOWERSMIGUEL S ENTRY LEVEL PROJECT ENGINEER Ot V58.69 04/25/2015 FLOWERSMIGUEL S ENTRY LEVEL PROJECT ENGINEER Ot 280.0 04/25/2015 FLOWERSMIGUEL S ENTRY LEVEL PROJECT ENGINEER Ot 285.21 04/25/2015 FLOWERSANGEL S ENTRY LEVEL PROJECT ENGINEER Ot 585.3 04/25/2015 FLOWERSMIGUEL S ENTRY LEVEL PROJECT ENGINEER Ot 599.0 04/25/2015 FLOWERSMIGUEL S ENTRY LEVEL PROJECT ENGINEER Ot 793.11 04/25/2015 FLOWERSMIGUEL S ENTRY LEVEL PROJECT ENGINEER Ot V58.69 04/26/2015 NORMA, BOBAN N Ot 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 04/26/2015 DINORA GREEN N Ot 585.3 CHRONIC KIDNEY DISEASE, STAGE III (MODER 04/26/2015 NORMADINORA REYES N Ot V58.69 OT MED,LT,CURRENT USE 04/28/2015 FLOWERSANGEL Garza S ENTRY LEVEL PROJECT ENGINEER Ot 280.0 04/28/2015 FLOWERS, HILAH S ENTRY LEVEL PROJECT ENGINEER Ot 285.21 04/28/2015 FLOWERS, HILAH S ENTRY LEVEL PROJECT ENGINEER Ot 585.3 04/28/2015 FLOWERS, HILAH S ENTRY LEVEL PROJECT ENGINEER Ot 599.0 04/28/2015 FLOWERS, HILAH S ENTRY LEVEL PROJECT ENGINEER Ot 793.11 04/28/2015 FLOWERS, HILAH S ENTRY LEVEL PROJECT ENGINEER Ot V58.69 05/02/2015 DINORA GREEN N Ot [...] D63.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 07/26/2015 DINOAR GREEN N Ot N18.3 CHRONIC KIDNEY DISEASE, STAGE 3 (MODERAT 07/26/2015 DINORA GREEN N Ot V58.69 OTH MED,LT,CURRENT USE 07/26/2015 DINORA GREEN N Ot Z79.899 OTHER TRANSMISSION BUILDER (CURRENT) DRUG THERAPY 07/27/2015 KLARISSA MOSER CARDIOLOGY TECHNOLOGIST Ot G47.33 07/27/2015 KLARISSA MOSER CARDIOLOGY TECHNOLOGIST Ot I27.2 07/27/2015 KLARISSA MOSER CARDIOLOGY TECHNOLOGIST Ot J44.9 07/27/2015 KLARISSA MOSER CARDIOLOGY TECHNOLOGIST Ot R06.02 07/27/2015 KLARISSA MOSER CARDIOLOGY TECHNOLOGIST Ot R91.1 07/27/2015 KLARISSA MOSER CARDIOLOGY TECHNOLOGIST Ot G47.33 07/27/2015 KLARISSA MOSER CARDIOLOGY TECHNOLOGIST Ot I27.2 07/27/2015 KLARISSA MOSER CARDIOLOGY TECHNOLOGIST Ot J44.9 07/27/2015 KLARISSA MOSER CARDIOLOGY TECHNOLOGIST Ot R06.02 07/27/2015 KLARISSA MOSER CARDIOLOGY TECHNOLOGIST Ot R91.1 07/27/2015 ANGEL FLOWERS ENTRY LEVEL PROJECT ENGINEER Ot D50.0 07/27/2015 ANGEL FLOWERS ENTRY LEVEL PROJECT ENGINEER Ot D63.1 07/27/2015 ANGEL FLOWERS ENTRY LEVEL PROJECT ENGINEER Ot N18.3 07/27/2015 ANGEL FLOWERS ENTRY LEVEL PROJECT ENGINEER Ot Z79.899 08/03/2015 NORMA, BOBAN N Ot [...] BOBAN N Ot Z79.899 08/07/2015 ANGEL FLOWERS ENTRY LEVEL PROJECT ENGINEER Ot D50.0 08/07/2015 ANGEL FLOWERS ENTRY LEVEL PROJECT ENGINEER Ot D63.1 08/07/2015 ANGEL FLOWERS ENTRY LEVEL PROJECT ENGINEER Ot N18.3 08/07/2015 ANGEL FLOWERS ENTRY LEVEL PROJECT ENGINEER Ot Z79.899 09/04/2015 ALTAGRACIA TY, DELILAH Borges [...] Borges Ot E11.8 09/28/2015 KRISTIE MIGUELAH S ENTRY LEVEL PROJECT ENGINEER Ot D50.0 09/28/2015 FLOWERS, HILAH S ENTRY LEVEL PROJECT ENGINEER Ot D63.1 09/28/2015 FLOWERS, HILAH S ENTRY LEVEL PROJECT ENGINEER Ot N18.3 09/28/2015 FLOWERS, HILAH S ENTRY LEVEL PROJECT ENGINEER Ot Z79.899 09/29/2015 NORMA BOBAN N Ot D50.0 09/29/2015 NORMA, BOBAN N Ot D63.1 09/29/2015 NORMA BOBAN N Ot N18.3 09/29/2015 NORMA BOBAN N Ot Z79.899 10/02/2015 GALA TY, FELICITA Borges Ot Z12.3 1 10/02/2015 FLOWERS, HILAH S ENTRY LEVEL PROJECT ENGINEER Ot D50.0 10/02/2015 FLOWERS, HILAH S ENTRY LEVEL PROJECT ENGINEER Ot D63.1 10/02/2015 FLOWERS, HILAH S ENTRY LEVEL PROJECT ENGINEER Ot N18.3 10/02/2015 FLOWERS, HILAH S ENTRY LEVEL PROJECT ENGINEER Ot Z79.899 10/04/2015 NORMA BOBAN N Ot [...] 11/01/2015 NORMA, BOBAN N Ot Z79.899 OTHER ASSISTED (CURRENT) DRUG THERAPY 11/03/2015 NORMA, BOBAN N [...] PALACIOS Ot I25.10 ATHSCL HEART DISEASE OF [place] CORONARY 11/30/2015 JANA PALACIOS Ot I65.23 OCCLUSION [...] Ot I50.9 HEART FAILURE, UNSPECIFIED 12/19/2015 FELICITA ECDEÑO MD, Ot J18.9 PNEUMONIA, UNSPECIFIED ORGANISM 12/19/2015 [...] UNSPECIFIED 12/19/2015 FELICITA CEDEÑO MD, Ot Z79.4 ASSISTED (CURRENT) USE OF INSULIN 12/19/2015 DINORA GREEN Ot D50.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 12/19/2015 DINORA GREEN Ot D63.1 ANEMIA IN CHRONIC KIDNEY DISEASE 12/19/2015 DINORA GREEN Ot N18.3 CHRONIC KIDNEY DISEASE, STAGE 3 (MODERAT 12/19/2015 DINORA GREEN Ot Z79.899 OTHER ASSISTED (CURRENT) DRUG THERAPY 12/19/2015 JANA PALACIOS Ot I10 ESSENTIAL (PRIMARY) HYPERTENSION 12/19/2015 JANA PALACIOS Ot I25.10 ATHSCL HEART DISEASE OF [place] CORONARY 12/19/2015 JANA PALACIOS Ot I65.23 OCCLUSION [...] (MODERAT 12/26/2015 DINORA GREEN Ot Z79.899 OTHER TRANSMISSION BUILDER (CURRENT) DRUG THERAPY 12/26/2015 JANA PALACIOS Ot I10 ESSENTIAL (PRIMARY) HYPERTENSION 12/26/2015 JANA PALACIOS Ot I25.10 ATHSCL HEART DISEASE OF [place] CORONARY 12/26/2015 JANA PALACIOS Ot I65.23 OCCLUSION AND STENOSIS OF BILATERAL [place] 12/26/2015 JANA PALACIOS Ot R07.89 OTHER CHEST PAIN 12/26/2015 MIRTA TORRES CARDIOLOGY TECHNOLOGIST Ot M25.511 PAIN IN RIGHT SHOULDER 12/26/2015 MIRTA TORRES CARDIOLOGY TECHNOLOGIST Ot R07.9 CHEST PAIN, UNSPECIFIED 12/27/2015 Ot 250.00 SEEMA B ЮЛИЯ WO COMPL, TYPE II OR UNSPEC TY 12/27/2015 Ot 272.4 HYPE RLIPIDEMIA NEC/NOS 12/27/2015 MIRTA TORRES CARDIOLOGY TECHNOLOGIST Ot 599.0 URIN TRACT INFECTION NOS 01/15/2016 ANGEL FLOWERS ENTRY LEVEL PROJECT ENGINEER Ot D50.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 01/15/2016 ANGEL FLOWERS ENTRY LEVEL PROJECT ENGINEER Ot D63.1 ANEMIA IN CHRONIC KIDNEY DISEASE 01/15/2016 ANGEL FLOWERS ENTRY LEVEL PROJECT ENGINEER Ot N18.3 CHRONIC KIDNEY DISEASE, STAGE 3 (MODERAT 01/15/2016 ANGEL FLOWERS ENTRY LEVEL PROJECT ENGINEER Ot Z79.899 OTHER TRANSMISSION BUILDER (CURRENT) DRUG THERAPY 01/18/2016 FELICITA CEDEÑO MD, [...] OF THYROID FUNCTION [place] 01/19/2016 DINORA GREEN Ot D50.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 01/19/2016 NORMA, BOBAN N Ot D63.1 ANEMIA IN CHRONIC KIDNEY DISEASE 01/19/2016 DINORA GREEN N Ot N18.3 CHRONIC KIDNEY DISEASE, STAGE 3 (MODERAT 01/19/2016 NORMA, JOSIERACHELLE N Ot Z79.899 OTHER ASSISTED (CURRENT) DRUG THERAPY 01/20/2016 FELICITA CEDEÑO MD [...] 01/31/2016 NORMA JOSIERACHELLE N Ot Z79.899 OTHER ASSISTED (CURRENT) DRUG THERAPY 01/31/2016 ANGEL FLOWERS ENTRY LEVEL PROJECT ENGINEER Ot D50.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 01/31/2016 ANGEL FLOWERS ENTRY LEVEL PROJECT ENGINEER Ot D63.1 ANEMIA IN CHRONIC KIDNEY DISEASE 01/31/2016 ANGEL FLOWERS ENTRY LEVEL PROJECT ENGINEER Ot N18.3 CHRONIC KIDNEY DISEASE, STAGE 3 (MODERAT 01/31/2016 ANGEL FLOWERS ENTRY LEVEL PROJECT ENGINEER Ot Z79.899 OTHER TRANSMISSION BUILDER (CURRENT) DRUG THERAPY 02/05/2016 TAPAN HUI MD Ot R05 COUGH 02/05/2016 TAPAN HUI MD Ot R13.19 OTHER DYSPHAGIA 02/05/2016 TAPAN HUI MD Ot R49 .0 DYSPHONIA 02/06/2016 ANGEL FLOWERSP Ot D50.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 02/06/2016 ANGEL FLOWERS ENTRY LEVEL PROJECT ENGINEER Ot D63.1 ANEMIA IN CHRONIC KIDNEY DISEASE 02/06/2016 ANGEL FLOWERS ENTRY LEVEL PROJECT ENGINEER Ot N18.3 CHRONIC KIDNEY DISEASE, STAGE 3 (MODERAT 02/06/2016 ANGEL FLOWERSP Ot Z79.899 OTHER TRANSMISSION BUILDER (CURRENT) DRUG THERAPY 02/06/2016 TAPAN HUI MD [...] (MODERAT 02/09/2016 NORMADINORA REYES Ot Z79.899 OTHER ASSISTED (CURRENT) DRUG THERAPY 02/12/2016 FELICITA CEDEÑO MD [...] 0 THYROTOXICOSIS, 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 THYROTOXIC 03/08/2016 FELICITA CEDEOÑ MD Ot E05.9 0 THYROTOXICOSIS, 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 [...] Ot R49 .0 DYSPHONIA 03/15/2016 ANGEL FLOWERS ENTRY LEVEL PROJECT ENGINEER Ot D50.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 03/15/2016 ANGEL FLOWERS ENTRY LEVEL PROJECT ENGINEER Ot D63.1 ANEMIA IN CHRONIC KIDNEY DISEASE 03/15/2016 ANGEL FLOWERS ENTRY LEVEL PROJECT ENGINEER Ot N18.3 CHRONIC KIDNEY DISEASE, STAGE 3 (MODERAT 03/15/2016 ANGEL FLOWERS ENTRY LEVEL PROJECT ENGINEER Ot Z79.899 OTHER ASSISTED (CURRENT) DRUG THERAPY 03/15/2016 Ot 285.9 ANEM [...] 03/15/2016 Ot 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 03/15/2016 Ot V58.63 MITESH G- TERM(CURRENT)USE OF ANTIPLATELET/AN 03/15/2016 Ot V58.66 MITESH G-TERM (CURRENT) USE OF ASPIRIN 03/15/2016 Ot V58.69 OTH MED,LT,CURRENT USE 03/15/2016 Ot 273.4 [id number] DEFICIENCY 03/15/2016 Ot 397.0 TRIC USPID VALVE DISEASE 03/15/2016 Ot 401.9 HYPE RTENSION NOS 03/15/2016 Ot 424.0 MITR AL VALVE DISORDER 03/15/2016 Ot 272.4 HYPE RLIPIDEMIA NEC/NOS 03/15/2016 Ot 401.9 HYPE RTENSION NOS 03/15/2016 Ot 414.00 COR ON ATHEROSCLER NOS TYPE VESSEL, NATIV 03/15/2016 Ot 272.4 HYPE RLIPIDEMIA NEC/NOS 03/15/2016 Ot 401.9 HYPE RTENSION NOS 03/15/2016 Ot 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 03/15/[address] PAIN NOS 03/15/2016 Ot 791.9 ABN URINE FINDINGS NEC 03/15/2016 Ot V72.63 PRE -PROCEDURAL LABORATORY EXAMINATION 03/15/2016 Ot V72.81 [id number] CARDIOVASCULAR 03/15/2016 Ot V76.12 OTH SCREEN MAMMO- [...] ACUT E URI NOS 03/15/2016 Ot 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, STAGE III (MODER 03/15/2016 Ot 787.91 SEEMA RRHEA 03/15/2016 Ot V58.69 OTH MED,LT,CURRENT USE 03/15/2016 Ot 793.82 INC ONCLUSIVE MAMMOGRAM 03/15/2016 Ot V76.12 OTH SCREEN MAMMO- MALIGN NEOPLASM OF [place] 03/15/2016 Ot 793.89 OTH (ABN) FINDINGS ON RADIOLOGICAL EXAMI 03/15/2016 Ot 272.4 HYPE RLIPIDEMIA NEC/NOS 03/15/2016 Ot 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 03/15/2016 Ot 812.40 FX LOWER HUMERUS [...] IRON DEFIC ANEMIA NOS 03/15/2016 ANGEL FLOWERS ENTRY LEVEL PROJECT ENGINEER Ot 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 03/15/2016 ANGEL FLOWERSP Ot 414.00 CORON ATHEROSCLER NOS TYPE VESSEL, NATIV 03/15/2016 ANGEL FLOWERSP Ot 585.3 CHRONIC KIDNEY DISEASE, STAGE III (MODER 03/15/2016 ANGEL FLOWERSP Ot 599.0 URIN TRACT INFECTION NOS 03/15/2016 ANGEL FLOWERSP Ot V58.69 OTH MED,LT,CURRENT USE 03/15/2016 ANGEL FLOWERSP Ot 280.0 CHR BLOOD LOSS ANEMIA 03/15/2016 ANGEL FLOWERS ENTRY LEVEL PROJECT ENGINEER Ot 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 03/15/2016 ANGEL FLOWERS ENTRY LEVEL PROJECT ENGINEER Ot 414.00 CORON ATHEROSCLER NOS TYPE VESSEL, NATIV 03/15/2016 ANGEL FLOWERSP Ot 585.3 CHRONIC KIDNEY DISEASE, STAGE III (MODER 03/15/2016 ANGEL FLOWERS ENTRY LEVEL PROJECT ENGINEER Ot V58.69 OTH MED,LT,CURRENT USE 03/15/2016 DINORA [...] Infante Ot 414. 01 CORONARY ATHEROSCLEROSIS OF [place] CORON 03/15/2016 ANGEL FLOWERS ENTRY LEVEL PROJECT ENGINEER Ot 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 03/15/2016 ANGEL FLOWERS ENTRY LEVEL PROJECT ENGINEER Ot 585.3 CHRONIC KIDNEY DISEASE, STAGE III (MODER 03/15/2016 ANGEL FLOWERS ENTRY LEVEL PROJECT ENGINEER Ot V58.69 OTH MED,LT,CURRENT USE 03/15/2016 ANGEL FLOWERS ENTRY LEVEL PROJECT ENGINEER Ot 429.3 CARDIOMEGALY 03/15/2016 ANGEL FLOWERS ENTRY LEVEL PROJECT ENGINEER Ot 786.09 RESPIRATORY ABNORM NEC 03/15/2016 ANGEL FLOWERS ENTRY LEVEL PROJECT ENGINEER Ot 786.2 COUGH 03/15/2016 ANGEL FLOWERS ENTRY LEVEL PROJECT ENGINEER Ot 280.9 IRON DEFIC ANEMIA NOS 03/15/2016 ANGEL FLOWERS ENTRY LEVEL PROJECT ENGINEER Ot 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 03/15/2016 ANGEL FLOWERS S ENTRY LEVEL PROJECT ENGINEER Ot 585.3 CHRONIC KIDNEY DISEASE, STAGE III (MODER 03/15/2016 ANGEL FLOWERS S ENTRY LEVEL PROJECT ENGINEER Ot V58.69 OTH MED,LT,CURRENT USE 03/15/2016 DELILAH FRIAS MD Ot 250.92 DIAB W UNSPEC COMPL, TYPE II OR UNSPEC T 03/15/2016 DELILAH FRIAS MD Ot 272.4 HYPERLIPIDEMIA NEC/NOS 03/15/2016 DELILAH FRIAS MD Ot 355.9 MONONEURITIS NOS 03/15/2016 FLOWERS, HILAH S ENTRY LEVEL PROJECT ENGINEER Ot 280.9 IRON DEFIC ANEMIA NOS 03/15/2016 FLOWERS HILAH S ENTRY LEVEL PROJECT ENGINEER Ot 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 03/15/2016 ANGEL FLOWERS S ENTRY LEVEL PROJECT ENGINEER Ot 585.3 CHRONIC KIDNEY DISEASE, STAGE III (MODER 03/15/2016 FLOWERSANGEL Garza S ENTRY LEVEL PROJECT ENGINEER Ot V58.69 OTH MED,LT,CURRENT USE 03/15/2016 FLOWERSANGEL Garza S ENTRY LEVEL PROJECT ENGINEER Ot 280.9 IRON DEFIC ANEMIA NOS 03/15/2016 FLOWERS HILAH S ENTRY LEVEL PROJECT ENGINEER Ot 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 03/15/2016 FLOWERS, HILAH S ENTRY LEVEL PROJECT ENGINEER Ot 585.3 CHRONIC KIDNEY DISEASE, STAGE III (MODER 03/15/2016 FLOWERSANGEL Garza S ENTRY LEVEL PROJECT ENGINEER Ot V58.69 OTH MED,LT,CURRENT USE 03/15/2016 LEXIE GONZALES ENTRY LEVEL PROJECT ENGINEER Ot 496 CHR AIRWAY OBSTRUCT NEC 03/15/2016 LEXIE GONZALES ENTRY LEVEL PROJECT ENGINEER Ot 786.39 OTHER HEMOPTYSIS 03/15/2016 LEXIE GONZALES ENTRY LEVEL PROJECT ENGINEER Ot 786.2 COUGH 03/15/2016 LEXIE GONZALES ENTRY LEVEL PROJECT ENGINEER Ot 786.30 HEMOPTYSIS, UNSPECIFIED 03/15/2016 LEXIE GONZALES ENTRY LEVEL PROJECT ENGINEER Ot 793.11 SOLITARY PULMONARY NODULE 03/15/2016 LEXIE GONZALES ENTRY LEVEL PROJECT ENGINEER Ot 786.39 OTHER HEMOPTYSIS 03/15/2016 JULIETTE GOMEZ [...] Ot 786. 2 COUGH 03/15/2016 ANGEL FLOWERS ENTRY LEVEL PROJECT ENGINEER Ot 280.9 IRON DEFIC ANEMIA NOS 03/15/2016 ANGEL FLOWERS ENTRY LEVEL PROJECT ENGINEER Ot 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 03/15/2016 ANGEL FLOWERS ENTRY LEVEL PROJECT ENGINEER Ot 585.3 CHRONIC KIDNEY DISEASE, STAGE III (MODER 03/15/2016 ANGEL FLOWERS ENTRY LEVEL PROJECT ENGINEER Ot 780.60 FEVER, UNSPECIFIED 03/15/2016 ANGEL FLOWERS ENTRY LEVEL PROJECT ENGINEER Ot 787.01 NAUSEA WITH VOMITING 03/15/2016 ANGEL FLOWERS ENTRY LEVEL PROJECT ENGINEER Ot 787.91 DIARRHEA 03/15/2016 ANGEL FLOWERS ENTRY LEVEL PROJECT ENGINEER Ot V58.69 OTH MED,LT,CURRENT USE 03/15/2016 GALA TY, FELICITA Borges Ot V76.1 2 OTH SCREEN MAMMO-MALIGN NEOPLASM OF [place] 03/15/2016 MIRTA TORRES APRN Ot 786.2 COUGH 03/15/2016 Ot 280.9 IRON DEFIC ANEMIA NOS 03/15/2016 Ot 285.21 ANE ASPEN IN CHRONIC KIDNEY DISEASE 03/15/2016 Ot 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, STAGE IV (SEVERE 03/15/2016 [...] 244.9 HYPO THYROIDISM NOS 03/15/2016 ANGEL FLOWERS ENTRY LEVEL PROJECT ENGINEER Ot 280.9 IRON DEFIC ANEMIA NOS 03/15/2016 ANGEL FLOWERS S ENTRY LEVEL PROJECT ENGINEER Ot 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 03/15/2016 ANGEL FLOWERS ENTRY LEVEL PROJECT ENGINEER Ot 585.4 CHRONIC KIDNEY DISEASE, STAGE IV (SEVERE 03/15/2016 ANGEL FLOWERS ENTRY LEVEL PROJECT ENGINEER Ot 793.11 SOLITARY PULMONARY NODULE 03/15/2016 ANGEL FLOWERS ENTRY LEVEL PROJECT ENGINEER Ot V58.69 OTH MED,LT,CURRENT USE 03/15/2016 ANGEL FLOWERS ENTRY LEVEL PROJECT ENGINEER Ot 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 03/15/2016 ANGEL FLOWERS S ENTRY LEVEL PROJECT ENGINEER Ot 585.4 CHRONIC KIDNEY DISEASE, STAGE IV (SEVERE 03/15/2016 ANGEL FLOWERS ENTRY LEVEL PROJECT ENGINEER Ot V58.69 OTH MED,LT,CURRENT USE 03/15/2016 ANGEL FLOWERS ENTRY LEVEL PROJECT ENGINEER Ot 4 86 PNEUMONIA, ORGANISM NOS 03/15/2016 ANGEL FLOWERS ENTRY LEVEL PROJECT ENGINEER Ot 4 96 CHR AIRWAY OBSTRUCT NEC 03/15/2016 ANGEL FLOWERS ENTRY LEVEL PROJECT ENGINEER Ot 784.0 HEADACHE 03/15/2016 ANGEL FLOWERS ENTRY LEVEL PROJECT ENGINEER Ot 786.05 SHORTNESS OF BREATH 03/15/2016 ANGEL FLOWERS ENTRY LEVEL PROJECT ENGINEER Ot 786.2 COUGH 03/15/2016 KLARISSA MOSER CARDIOLOGY TECHNOLOGIST Ot G47.33 OBSTRUCTIVE SLEEP APNEA (ADULT) (PEDIATR 03/15/2016 KLARISSA MOSER CARDIOLOGY TECHNOLOGIST Ot I27.2 OTHER SECONDARY PULMONARY HYPERTENSION 03/15/2016 KLARISSA MOSER CARDIOLOGY TECHNOLOGIST Ot J44.9 CHRONIC OBSTRUCTIVE PULMONARY DISEASE, U 03/15/2016 KLARISSA MOSER CARDIOLOGY TECHNOLOGIST Ot R06.02 SHORTNESS OF BREATH 03/15/2016 KLARISSA MOSER CARDIOLOGY TECHNOLOGIST Ot R91.1 SOLITARY PULMONARY NODULE 03/15/2016 AR [...] E888. 9 FALL NOS 03/15/2016 ANGEL FLOWERS ENTRY LEVEL PROJECT ENGINEER Ot 280.0 CHR BLOOD LOSS ANEMIA 03/15/2016 ANGEL FLOWERS ENTRY LEVEL PROJECT ENGINEER Ot 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 03/15/2016 ANGEL FLOWERS ENTRY LEVEL PROJECT ENGINEER Ot 585.3 CHRONIC KIDNEY DISEASE, STAGE III (MODER 03/15/2016 ANGEL FLOWERS ENTRY LEVEL PROJECT ENGINEER Ot 599.0 URIN TRACT INFECTION NOS 03/15/2016 ANGEL FLOWERS ENTRY LEVEL PROJECT ENGINEER Ot 793.11 SOLITARY PULMONARY NODULE 03/15/2016 ANGEL FLOWERS ENTRY LEVEL PROJECT ENGINEER Ot V58.69 OTH MED,LT,CURRENT USE 03/15/2016 MIRTA TORRES CARDIOLOGY TECHNOLOGIST Ot 599.0 URIN TRACT INFECTION NOS 03/15/2016 [...] ADULT MEDICAL EXAM W/ 03/15/2016 ANGEL FLOWERS ENTRY LEVEL PROJECT ENGINEER Ot D50.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 03/15/2016 ANGEL FLOWERS ENTRY LEVEL PROJECT ENGINEER Ot D63.1 ANEMIA IN CHRONIC KIDNEY DISEASE 03/15/2016 ANGEL FLOWERS ENTRY LEVEL PROJECT ENGINEER Ot N18.3 CHRONIC KIDNEY DISEASE, STAGE 3 (MODERAT 03/15/2016 ANGEL FLOWERS ENTRY LEVEL PROJECT ENGINEER Ot Z79.899 OTHER ASSISTED (CURRENT) DRUG THERAPY 03/15/2016 FELICITA CEDEÑO MD Ot Z12.3 1 ENCNTR SCREEN MAMMOGRAM FOR MALIGNANT NE 03/15/2016 DELILAH FRIAS MD Ot E03.9 HYPOTHYROIDISM, UNSPECIFIED 03/15/2016 DELILAH FRIAS MD Ot E11.8 TYPE 2 DIABETES MELLITUS WITH UNSPECIFIE 03/15/2016 ANGEL FLOWERS ENTRY LEVEL PROJECT ENGINEER Ot D50.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 03/15/2016 ANGEL FLOWERS ENTRY LEVEL PROJECT ENGINEER Ot D63.1 ANEMIA IN CHRONIC KIDNEY DISEASE 03/15/2016 ANGEL FLOWERS S ENTRY LEVEL PROJECT ENGINEER Ot N18.3 CHRONIC KIDNEY DISEASE, STAGE 3 (MODERAT 03/15/2016 ANGEL FLOWERS ENTRY LEVEL PROJECT ENGINEER Ot Z79.899 OTHER TRANSMISSION BUILDER (CURRENT) DRUG THERAPY 03/15/2016 FELICITA CEDEÑO MD Ot R51 HEADACHE 03/15/2016 JANA PALACIOS Ot I10 ESSENTIAL (PRIMARY) HYPERTENSION 03/15/2016 JANA PALACIOS Ot I25.10 ATHSCL HEART DISEASE OF [place] CORONARY 03/15/2016 JANA PALACIOS Ot I65.23 OCCLUSION AND STENOSIS OF [place] 03/15/2016 JANA PALACIOS Ot R07.89 OTHER CHEST PAIN 03/15/2016 MIRTA TORRES APRN Ot M25.511 PAIN IN RIGHT SHOULDER 03/15/2016 BRIAN, MIRTA R CARDIOLOGY TECHNOLOGIST Ot R07.9 CHEST PAIN, UNSPECIFIED 03/15/2016 KRISTIE ANGEL Kayla ENTRY LEVEL PROJECT ENGINEER Ot D50.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 03/15/2016 ANGEL FLOWERS ENTRY LEVEL PROJECT ENGINEER Ot D63.1 ANEMIA IN CHRONIC KIDNEY DISEASE 03/15/2016 FLOWERSANGEL ENTRY LEVEL PROJECT ENGINEER Ot N18.3 CHRONIC KIDNEY DISEASE, STAGE 3 (MODERAT 03/15/2016 FLOWERSMIGUELJENS Kayla ENTRY LEVEL PROJECT ENGINEER Ot Z79.899 OTHER ASSISTED (CURRENT) DRUG THERAPY 03/15/2016 FELICITA CEDEÑO MD [...] 03/15/2016 DINORA GREEN N Ot Z79.899 OTHER TRANSMISSION BUILDER (CURRENT) DRUG THERAPY 03/15/2016 DELILAH HARE Ot [...] INFECTION, SITE NOT SPECIF 03/15/2016 ANGEL FLOWERS ENTRY LEVEL PROJECT ENGINEER Ot D50.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 03/15/2016 FLOWERSANGEL Garza ENTRY LEVEL PROJECT ENGINEER Ot D63.1 ANEMIA IN CHRONIC KIDNEY DISEASE 03/15/2016 ANGEL FLOWERS ENTRY LEVEL PROJECT ENGINEER Ot N18.3 CHRONIC KIDNEY DISEASE, STAGE 3 (MODERAT 03/15/2016 FLOWERSANGEL Garza ENTRY LEVEL PROJECT ENGINEER Ot Z79.899 OTHER TRANSMISSION BUILDER (CURRENT) DRUG THERAPY 03/15/2016 DELILAH HARE L [...] 03/22/2016 NORMA BOBAN N Ot Z79.899 OTHER ASSISTED (CURRENT) DRUG THERAPY 03/25/2016 DELILAH HARE Ot [...] 03/26/2016 NORMA, BOBAN N Ot Z79.899 OTHER ASSISTED (CURRENT) DRUG THERAPY 03/26/2016 DELILAH HARE L Ot E87.1 HYPO-OSMOLALITY AND HYPONATREMIA 03/27/2016 DELILAH HARE Ot E87.1 HYPO-OSMOLALITY AND HYPONATREMIA 03/29/2016 FELICITA CEDEÑO MD Ot E05.9 0 THYROTOXICOSIS, 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 THYROTOXIC 03/29/2016 BRIAN MIRTA R CARDIOLOGY TECHNOLOGIST Ot D72.829 ELEVATED WHITE BLOOD CELL COUNT, UNSPECI 03/29/2016 BRIAN MIRTA R CARDIOLOGY TECHNOLOGIST Ot N39.0 URINARY TRACT INFECTION, SITE NOT SPECIF 04/04/2016 FELICITA CEDEÑO MD Ot E05.9 0 THYROTOXICOSIS, 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 THYROTOXIC 04/04/2016 BRIAN MIRTA R CARDIOLOGY TECHNOLOGIST Ot D72.829 ELEVATED WHITE BLOOD CELL COUNT, UNSPECI 04/04/2016 BRIAN MIRTA R CARDIOLOGY TECHNOLOGIST Ot N39.0 URINARY TRACT INFECTION, SITE NOT SPECIF 04/05/2016 JANA PALACIOS Ot E78.5 HYPERLIPIDEMIA, UNSPECIFIED 04/05/2016 JANA PALACIOS Ot E78.5 HYPERLIPIDEMIA, UNSPECIFIED 04/05/2016 ANGEL FLOWERS ENTRY LEVEL PROJECT ENGINEER Ot D50.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 04/05/2016 ANGEL FLOWERS ENTRY LEVEL PROJECT ENGINEER Ot D63.1 ANEMIA IN CHRONIC KIDNEY DISEASE 04/05/2016 ANGEL FLOWERSP Ot N18.3 CHRONIC KIDNEY DISEASE, STAGE 3 (MODERAT 04/05/2016 ANGEL FLOWERS ENTRY LEVEL PROJECT ENGINEER Ot Z79.899 OTHER TRANSMISSION BUILDER (CURRENT) DRUG THERAPY 04/08/2016 JANA PALACIOS Ot E78.5 HYPERLIPIDEMIA, UNSPECIFIED 04/08/2016 JANA PALACIOS Ot E78.5 HYPERLIPIDEMIA, UNSPECIFIED 04/08/2016 JANA PALACIOS Ot E78.5 HYPERLIPIDEMIA, UNSPECIFIED 04/08/2016 JANA PALACIOS Ot E78.5 HYPERLIPIDEMIA, UNSPECIFIED 04/08/2016 JANA PALACIOS Ot E78.5 HYPERLIPIDEMIA, UNSPECIFIED 04/09/2016 DELILAH HARE Ot D64.9 ANEMIA, UNSPECIFIED 04/09/2016 DELILAH HARE Ot E87.1 HYPO-OSMOLALITY AND HYPONATREMIA 04/10/2016 ANGEL FLOWERS ENTRY LEVEL PROJECT ENGINEER Ot D50.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 04/10/2016 ANGEL FLOWERS ENTRY LEVEL PROJECT ENGINEER Ot D63.1 ANEMIA IN CHRONIC KIDNEY DISEASE 04/10/2016 ANGEL FLOWERS ENTRY LEVEL PROJECT ENGINEER Ot N18.3 CHRONIC KIDNEY DISEASE, STAGE 3 (MODERAT 04/10/2016 ANGEL FLOWERS ENTRY LEVEL PROJECT ENGINEER Ot Z79.899 OTHER TRANSMISSION BUILDER (CURRENT) DRUG THERAPY 04/10/2016 JANA PALACIOS Ot [...] 04/29/2016 NORMA, BOBAN N Ot Z79.899 OTHER TRANSMISSION BUILDER (CURRENT) DRUG THERAPY 05/03/2016 NORMA, BOBAN N Ot D50.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 05/03/2016 NORMA, BOBAN N Ot D63.1 ANEMIA IN CHRONIC KIDNEY DISEASE 05/03/2016 NORMA, BOBAN N Ot N18.3 CHRONIC KIDNEY DISEASE, STAGE 3 (MODERAT 05/03/2016 NORMA, BOBAN N Ot Z79.899 OTHER ASSISTED (CURRENT) DRUG THERAPY 05/03/2016 JANA PALACIOS Ot [...] FELICITA CEDEÑO MD Ot Z79.8 99 OTHER ASSISTED (CURRENT) DRUG THERAPY 06/14/2016 Ot E78.2 MIXE D HYPERLIPIDEMIA 06/18/2016 FELICITA CEDEÑO MD Ot E11.9 TYPE 2 DIABETES MELLITUS WITHOUT COMPLIC 06/18/2016 FELICITA CEDEÑO MD Ot E78.4 OTHER HYPERLIPIDEMIA 06/18/2016 FELICITA CEDEÑO MD Ot I10 ESSENTIAL (PRIMARY) HYPERTENSION 06/18/2016 FELICITA CEDEÑO MD Ot Z79.8 99 OTHER TRANSMISSION BUILDER (CURRENT) DRUG THERAPY 06/18/2016 DINORA GREEN Ot D50.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 06/18/2016 DINORA GREEN Ot D63.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 06/18/2016 DINORA GREEN Ot N18.3 CHRONIC KIDNEY DISEASE, STAGE 3 (MODERAT 06/18/2016 DINORA GREEN Ot Z79.899 OTHER ASSISTED (CURRENT) DRUG THERAPY 06/19/2016 Ot E78.2 MIXE D HYPERLIPIDEMIA 06/24/2016 DINORA GREEN Ot D50.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 06/24/2016 DINORA GREEN Ot D63.1 ANEMIA IN CHRONIC KIDNEY DISEASE 06/24/2016 NORMADINORA REYES Casi Ot N18.3 CHRONIC KIDNEY DISEASE, STAGE 3 (MODERAT 06/24/2016 NORMADINORA REYES Casi Ot Z79.899 OTHER TRANSMISSION BUILDER (CURRENT) DRUG THERAPY 06/26/2016 FELICITA CEDEÑO MD, Ot E11.9 TYPE 2 DIABETES MELLITUS WITHOUT COMPLIC 06/26/2016 FELICITA CEDEÑO MD Ot E78.4 OTHER HYPERLIPIDEMIA 06/26/2016 FELICITA CEDEÑO MD, Ot I10 ESSENTIAL (PRIMARY) HYPERTENSION 06/26/2016 FELICIAT CEDEÑO MD Ot Z79.8 99 OTHER ASSISTED (CURRENT) DRUG THERAPY 06/26/2016 FELICITA CEDEÑO MD, Ot E11.9 TYPE 2 DIABETES MELLITUS WITHOUT COMPLIC 06/26/2016 FELICITA CEDEÑO MD, Ot E78.4 OTHER HYPERLIPIDEMIA 06/26/2016 FELICITA CEDEÑO MD, Ot I10 ESSENTIAL (PRIMARY) HYPERTENSION 06/26/2016 FELICITA CEDEÑO MD Ot Z79.8 99 OTHER ASSISTED (CURRENT) DRUG THERAPY 06/26/2016 FELICITA CEDEÑO MD, Ot E11.9 TYPE 2 DIABETES MELLITUS WITHOUT COMPLIC 06/26/2016 FELICITA CEDEÑO MD Ot E78.4 OTHER HYPERLIPIDEMIA 06/26/2016 FELICITA CEDEÑO MD Ot I10 ESSENTIAL (PRIMARY) HYPERTENSION 06/26/2016 FELICITA CEDEÑO MD Ot Z79.8 99 OTHER ASSISTED (CURRENT) DRUG THERAPY 06/26/2016 FELICITA CEDEÑO MD, Ot E11.9 TYPE 2 DIABETES MELLITUS WITHOUT COMPLIC 06/26/2016 FELICITA CEDEÑO MD Ot E78.4 OTHER HYPERLIPIDEMIA 06/26/2016 FELICITA CEDEÑO MD Ot I10 ESSENTIAL (PRIMARY) HYPERTENSION 06/26/2016 FELICITA CEDEÑO MD Ot Z79.8 99 OTHER TRANSMISSION BUILDER (CURRENT) DRUG THERAPY 06/28/2016 AR ALLEN DO [...] FELICITA CEDEÑO MD Ot Z79.8 99 OTHER TRANSMISSION BUILDER (CURRENT) DRUG THERAPY 07/09/2016 FELICITA CEDEÑO MD Ot E11.9 TYPE 2 DIABETES MELLITUS WITHOUT COMPLIC 07/09/2016 FELICITA CEDEÑO MD Ot E78.4 OTHER HYPERLIPIDEMIA 07/09/2016 FELICITA CEDEÑO MD Ot I10 ESSENTIAL (PRIMARY) HYPERTENSION 07/09/2016 FELICITA CEDEÑO MD Ot Z79.8 99 OTHER ASSISTED (CURRENT) DRUG THERAPY 07/15/2016 AR ALLEN DO [...] 07/31/2016 NORMA JOSIERACHELLE N Ot Z79.899 OTHER TRANSMISSION BUILDER (CURRENT) DRUG THERAPY 08/01/2016 NORMA, DINORA N Ot D50.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 08/01/2016 NORMA, BOBAN N Ot D63.1 ANEMIA IN CHRONIC KIDNEY DISEASE 08/01/2016 NORMA, BOBAN N Ot N18.3 CHRONIC KIDNEY DISEASE, STAGE 3 (MODERAT 08/01/2016 NORMA, BOBAN N Ot Z79.899 OTHER ASSISTED (CURRENT) DRUG THERAPY 08/05/2016 AR ALLEN DO [...] 08/08/2016 NORMA BOBAN N Ot Z79.899 OTHER TRANSMISSION BUILDER (CURRENT) DRUG THERAPY 08/09/2016 NORMA BOBAN N Ot D50.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 08/09/2016 NORMA, BOBAN N Ot D63.1 ANEMIA IN CHRONIC KIDNEY DISEASE 08/09/2016 NORMA, BOBAN N Ot N18.3 CHRONIC KIDNEY DISEASE, STAGE 3 (MODERAT 08/09/2016 DINORA GREEN Ot Z79.899 OTHER ASSISTED (CURRENT) DRUG THERAPY 08/28/2016 FRANKLIN CEDEÑO MD [...] FELICITA CEDEÑO MD Ot Z79.8 99 OTHER ASSISTED (CURRENT) DRUG THERAPY 11/04/2016 ANGEL FLOWERS ENTRY LEVEL PROJECT ENGINEER Ot R26.81 UNSTEADINESS ON FEET 11/04/2016 ANGEL FLOWERS ENTRY LEVEL PROJECT ENGINEER Ot R41.82 ALTERED MENTAL STATUS, UNSPECIFIED 11/06/2016 DINORA GREEN Ot D50.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 11/06/2016 DINORA GREEN Ot D63.1 ANEMIA IN CHRONIC KIDNEY DISEASE 11/06/2016 DINORA GREEN Ot N18.3 CHRONIC KIDNEY DISEASE, STAGE 3 (MODERAT 11/06/2016 DINORA GREEN Ot R82.99 OTHER ABNORMAL FINDINGS IN URINE 11/06/2016 DINORA GREEN Ot Z79.899 OTHER ASSISTED (CURRENT) DRUG THERAPY 11/07/2016 JOSIE GREENAN N Ot D50.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 02 NAUSEA ALONE 11/26/2016 ANGEL FLOWERS ENTRY LEVEL PROJECT ENGINEER Ot R26.81 UNSTEADINESS ON FEET 11/26/2016 ANGEL FLOWERS ENTRY LEVEL PROJECT ENGINEER Ot R41.82 ALTERED MENTAL STATUS, UNSPECIFIED 12/02/2016 ANGEL FLOWERS ENTRY LEVEL PROJECT ENGINEER Ot R26.81 UNSTEADINESS ON FEET 12/02/2016 ANGEL FLOWERS ENTRY LEVEL PROJECT ENGINEER Ot R41.82 ALTERED MENTAL STATUS, UNSPECIFIED 12/11/2016 FELICITA CEDEÑO MD Ot E11.9 TYPE 2 DIABETES MELLITUS WITHOUT COMPLIC 12/11/2016 FELICITA CEDEÑO MD Ot E78.5 HYPERLIPIDEMIA, UNSPECIFIED 12/11/2016 FELICITA CEDEÑO MD Ot I10 ESSENTIAL (PRIMARY) HYPERTENSION 12/11/2016 FELICITA CEDEÑO MD Ot Z79.8 99 OTHER TRANSMISSION BUILDER (CURRENT) DRUG THERAPY 12/26/2016 MIRTA TORRES APRN Ot 599.0 URIN TRACT INFECTION NOS 01/06/2017 NORMA, BOBAN N Ot D50.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 01/06/2017 NORMA, BOBAN N Ot D63.1 ANEMIA IN CHRONIC KIDNEY DISEASE 01/06/2017 NORMA, BOBAN N Ot N18.3 CHRONIC KIDNEY DISEASE, STAGE 3 (MODERAT 01/06/2017 NORMA, BOBAN N Ot Z79.899 OTHER TRANSMISSION BUILDER (CURRENT) DRUG THERAPY 01/09/2017 NORMA, BOBAN N Ot D50.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 01/09/2017 NORMA, BOBAN N Ot D63.1 ANEMIA IN CHRONIC KIDNEY DISEASE 01/09/2017 NORMA BOBAN N Ot N18.3 CHRONIC KIDNEY DISEASE, STAGE 3 (MODERAT 01/09/2017 NORMA, BOBAN N Ot Z79.899 OTHER TRANSMISSION BUILDER (CURRENT) DRUG THERAPY 01/25/2017 Ot 250.00 SEEMA [...] 02/12/2017 NORMA BOBAN N Ot Z79.899 OTHER ASSISTED (CURRENT) DRUG THERAPY 02/12/2017 MIRTA TORRES CARDIOLOGY TECHNOLOGIST Ot S89.92XA UNSPECIFIED INJURY OF LEFT LOWER LEG, IN 02/12/2017 MIRTA TORRES CARDIOLOGY TECHNOLOGIST Ot X58.XXXA EXPOSURE TO OTHER SPECIFIED FACTORS, INI 02/12/2017 MIRTA TORRES CARDIOLOGY TECHNOLOGIST Ot Y99.8 OTHER EXTERNAL CAUSE STATUS 02/12/2017 MIRTA TORRES CARDIOLOGY TECHNOLOGIST Ot Z96.652 PRESENCE OF LEFT ARTIFICIAL KNEE JOINT 02/14/2017 FELICITA CEDEÑO MD Ot E11.9 TYPE 2 DIABETES MELLITUS WITHOUT COMPLIC 02/14/2017 FELICITA CEDEÑO MD Ot E78.5 HYPERLIPIDEMIA, UNSPECIFIED 02/14/2017 FELICITA CEDEÑO MD Ot I10 ESSENTIAL (PRIMARY) HYPERTENSION 02/14/2017 FELICITA CEDEÑO MD Ot Z79.8 99 OTHER ASSISTED (CURRENT) DRUG THERAPY 02/14/2017 DINORA GREEN Ot D50.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 02/14/2017 DINORA GREEN Casi Ot D63.1 ANEMIA IN CHRONIC KIDNEY DISEASE 02/14/2017 DINORA GREEN Ot N18.3 CHRONIC KIDNEY DISEASE, STAGE 3 (MODERAT 02/14/2017 DINORA GREEN Ot Z79.899 OTHER TRANSMISSION BUILDER (CURRENT) DRUG THERAPY 02/17/2017 MIRTA TORRES CARDIOLOGY TECHNOLOGIST Ot S89.92XA UNSPECIFIED INJURY OF LEFT LOWER LEG, IN 02/17/2017 MIRTA TORRES CARDIOLOGY TECHNOLOGIST Ot X58.XXXA EXPOSURE TO OTHER SPECIFIED FACTORS, INI 02/17/2017 MIRTA TORRES CARDIOLOGY TECHNOLOGIST Ot Y99.8 OTHER EXTERNAL CAUSE STATUS 02/17/2017 MIRTA TORRES CARDIOLOGY TECHNOLOGIST Ot Z96.652 PRESENCE OF LEFT ARTIFICIAL KNEE JOINT 02/19/2017 FELICITA CEDEÑO MD, Ot E11.9 TYPE 2 DIABETES MELLITUS WITHOUT COMPLIC 02/19/2017 FELICITA CEDEÑO MD, Ot E78.5 HYPERLIPIDEMIA, UNSPECIFIED 02/19/2017 FELICITA CEDEÑO MD, Ot I10 ESSENTIAL (PRIMARY) HYPERTENSION 02/19/2017 FELICITA CEDEÑO MD Ot Z79.8 99 OTHER ASSISTED (CURRENT) DRUG THERAPY 02/19/2017 FELICITA CEDEÑO MD, Ot E11.9 TYPE 2 DIABETES MELLITUS WITHOUT COMPLIC 02/19/2017 FELICITA CEDEÑO MD, Ot E78.5 HYPERLIPIDEMIA, UNSPECIFIED 02/19/2017 FELICITA CEDEÑO MD, Ot I10 ESSENTIAL (PRIMARY) HYPERTENSION 02/19/2017 FELICITA CEDEÑO MD Ot Z79.8 99 OTHER TRANSMISSION BUILDER (CURRENT) DRUG THERAPY 02/19/2017 FELICITA CEDEÑO MD, Ot E11.9 TYPE 2 DIABETES MELLITUS WITHOUT COMPLIC 02/19/2017 FELICITA CEDEÑO MD, Ot E78.5 HYPERLIPIDEMIA, UNSPECIFIED 02/19/2017 FELICITA CEDEÑO MD, Ot I10 ESSENTIAL (PRIMARY) HYPERTENSION 02/19/2017 FELICITA CEDEÑO MD Ot Z79.8 99 OTHER ASSISTED (CURRENT) DRUG THERAPY 02/19/2017 FELICITA CEDEÑO MD, Ot E11.9 TYPE 2 DIABETES MELLITUS WITHOUT COMPLIC 02/19/2017 FELICITA CEDEÑO MD, Ot E78.5 HYPERLIPIDEMIA, UNSPECIFIED 02/19/2017 FELICITA CEDEÑO MD, Ot I10 ESSENTIAL (PRIMARY) HYPERTENSION 02/19/2017 FELICITA CEDEÑO MD Ot Z79.8 99 OTHER TRANSMISSION BUILDER (CURRENT) DRUG THERAPY 02/19/2017 FELICITA CEDEÑO MD Ot E11.9 TYPE 2 DIABETES MELLITUS WITHOUT COMPLIC 02/19/2017 FELICITA CEDEÑO MD, Ot E78.5 HYPERLIPIDEMIA, UNSPECIFIED 02/19/2017 FELICITA CEDEÑO MD Ot I10 ESSENTIAL (PRIMARY) HYPERTENSION 02/19/2017 FELICITA CEDEÑO MD Ot Z79.8 99 OTHER TRANSMISSION BUILDER (CURRENT) DRUG THERAPY 02/19/2017 FELICITA CEDEÑO MD Ot E11.9 TYPE 2 DIABETES MELLITUS WITHOUT COMPLIC 02/19/2017 FELICITA CEDEÑO MD, Ot E78.5 HYPERLIPIDEMIA, UNSPECIFIED 02/19/2017 FELICITA CEDEÑO MD, Ot I10 ESSENTIAL (PRIMARY) HYPERTENSION 02/19/2017 FELICITA CEDEÑO MD, Ot Z79.8 99 OTHER ASSISTED (CURRENT) DRUG THERAPY 02/25/2017 GALA TY, FRANKLIN A Ot 787. 02 NAUSEA ALONE 02/25/2017 MIRTA TORRES CARDIOLOGY TECHNOLOGIST Ot 599.0 URIN TRACT INFECTION NOS 03/05/2017 MIRTA TORRES CARDIOLOGY TECHNOLOGIST Ot S89.92XA UNSPECIFIED INJURY OF LEFT LOWER LEG, IN 03/05/2017 MIRTA TORRES R CARDIOLOGY TECHNOLOGIST Ot X58.XXXA EXPOSURE TO OTHER SPECIFIED FACTORS, INI 03/05/2017 MIRTA TORRES CARDIOLOGY TECHNOLOGIST Ot Y99.8 OTHER EXTERNAL CAUSE STATUS 03/05/2017 MIRTA TORRES CARDIOLOGY TECHNOLOGIST Ot Z96.652 PRESENCE OF LEFT ARTIFICIAL KNEE JOINT 03/06/2017 FELICITA CEDEÑO MD Ot E11.9 TYPE 2 DIABETES MELLITUS WITHOUT COMPLIC 03/06/2017 FELICITA CEDEÑO MD Ot E78.5 HYPERLIPIDEMIA, UNSPECIFIED 03/06/2017 FELICITA CEDEÑO MD, Ot I10 ESSENTIAL (PRIMARY) HYPERTENSION 03/06/2017 FELICITA CEDEÑO MD Ot Z79.8 99 OTHER ASSISTED (CURRENT) DRUG THERAPY 03/11/2017 MIRTA TORRES CARDIOLOGY TECHNOLOGIST Ot S89.92XA UNSPECIFIED INJURY OF LEFT LOWER LEG, IN 03/11/2017 MIRTA TORRES CARDIOLOGY TECHNOLOGIST Ot X58.XXXA EXPOSURE TO OTHER SPECIFIED FACTORS, INI 03/11/2017 MIRTA TORRES CARDIOLOGY TECHNOLOGIST Ot Y99.8 OTHER EXTERNAL CAUSE STATUS 03/11/2017 MIRTA TORRES CARDIOLOGY TECHNOLOGIST Ot Z96.652 PRESENCE OF LEFT ARTIFICIAL KNEE JOINT 03/11/2017 FELICITA CEDEÑO MD, Ot E11.9 TYPE 2 DIABETES MELLITUS WITHOUT COMPLIC 03/11/2017 FELICITA CEDEÑO MD, Ot E78.5 HYPERLIPIDEMIA, UNSPECIFIED 03/11/2017 FELICITA CEDEÑO MD, Ot I10 ESSENTIAL (PRIMARY) HYPERTENSION 03/11/2017 FELICITA CEDEÑO MD, Ot Z79.8 99 OTHER TRANSMISSION BUILDER (CURRENT) DRUG THERAPY 04/05/2017 SUHA TAYLOR MD, [...] Ot I25. 10 ATHSCL HEART DISEASE OF [place] CORONARY 04/05/2017 SUHA TAYLOR MD, Ot J44. [...] ENCOUNTER 04/05/2017 SU[facility]AYLOR MD, Ot Y92.[address] [facility] [place] [facility] ([facility] 04/05/2017 SUHA TAYLOR MD, Ot Z95. 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 04/26/2017 NORMA, BOBAN N Ot N18.3 CHRONIC KIDNEY DISEASE, STAGE 3 (MODERAT 04/26/2017 NORMA, BOBAN N Ot Z79.899 OTHER TRANSMISSION BUILDER (CURRENT) DRUG THERAPY 05/02/2017 NORMA, BOBAN N Ot D63.1 ANEMIA IN CHRONIC KIDNEY DISEASE 05/02/2017 NORMA, BOBAN N Ot N18.3 CHRONIC KIDNEY DISEASE, STAGE 3 (MODERAT 05/02/2017 NORMA, BOBAN N Ot Z79.899 OTHER TRANSMISSION BUILDER (CURRENT) DRUG THERAPY 06/20/2017 NORMA, BOBAN N Ot D63.1 ANEMIA IN CHRONIC KIDNEY DISEASE 06/20/2017 NORMA, BOBAN N Ot N18.3 CHRONIC KIDNEY DISEASE, STAGE 3 (MODERAT 06/20/2017 NORMA, BOBAN N Ot Z79.899 OTHER TRANSMISSION BUILDER (CURRENT) DRUG THERAPY 06/24/2017 NORMA, BOBAN N Ot D63.1 ANEMIA IN CHRONIC KIDNEY DISEASE 06/24/2017 NORMA, BOBAN N Ot N18.3 CHRONIC KIDNEY DISEASE, STAGE 3 (MODERAT 06/24/2017 NORMA, BOBAN N Ot Z79.899 OTHER TRANSMISSION BUILDER (CURRENT) DRUG THERAPY 07/30/2017 NORMA, BOBAN N Ot D63.1 ANEMIA IN CHRONIC KIDNEY DISEASE 07/30/2017 NORMA, BOBAN N Ot N18.3 CHRONIC KIDNEY DISEASE, STAGE 3 (MODERAT 07/30/2017 NORMA, BOBAN N Ot Z79.899 OTHER ASSISTED (CURRENT) DRUG THERAPY 07/31/2017 NORMA, BOBAN N Ot D63.1 ANEMIA IN CHRONIC KIDNEY DISEASE 07/31/2017 NORMA, BOBAN N Ot N18.3 CHRONIC KIDNEY DISEASE, STAGE 3 (MODERAT 07/31/2017 NORMA, BOBAN N Ot Z79.899 OTHER ASSISTED (CURRENT) DRUG THERAPY 08/06/2017 NORMA, BOBAN N Ot D63.1 ANEMIA IN CHRONIC KIDNEY DISEASE 08/06/2017 NORMA, BOBAN N Ot N18.3 CHRONIC KIDNEY DISEASE, STAGE 3 (MODERAT 08/06/2017 NORMADINORA REYES N Ot Z79.899 OTHER TRANSMISSION BUILDER (CURRENT) DRUG THERAPY 08/07/2017 SHANTISINAKLARISSA E CARDIOLOGY TECHNOLOGIST Ot E27.9 DISORDER OF ADRENAL GLAND, UNSPECIFIED 08/07/2017 SHANTI KLARISSA E CARDIOLOGY TECHNOLOGIST Ot I25.10 ATHSCL HEART DISEASE OF [place] CORONARY 08/07/2017 SHANTISINA CONTRERASINE E CARDIOLOGY TECHNOLOGIST Ot I27.20 PULMONARY HYPERTENSION, UNSPECIFIED 08/07/2017 SHANTI KLARISSA E CARDIOLOGY TECHNOLOGIST Ot I51.7 CARDIOMEGALY 08/07/2017 SHANTI KLARISSA E CARDIOLOGY TECHNOLOGIST Ot J30.9 ALLERGIC RHINITIS, UNSPECIFIED 08/07/2017 SHANTI, KLARISSA E CARDIOLOGY TECHNOLOGIST Ot R91.8 OTHER NONSPECIFIC ABNORMAL FINDING OF KIM 09/02/2017 NORMADINORA REYES N Ot D63.1 ANEMIA IN CHRONIC KIDNEY DISEASE 09/02/2017 NORMADINORA REYES N Ot N18.3 CHRONIC KIDNEY DISEASE, STAGE 3 (MODERAT 09/02/2017 NORMA, BOBRACHELLE N Ot Z79.899 OTHER TRANSMISSION BUILDER (CURRENT) DRUG THERAPY 09/02/2017 SHANTISINAKLARISSA E CARDIOLOGY TECHNOLOGIST Ot E27.9 DISORDER OF ADRENAL GLAND, UNSPECIFIED 09/02/2017 SHANTI, KLARISSA E CARDIOLOGY TECHNOLOGIST Ot I25.10 ATHSCL HEART DISEASE OF [place] CORONARY 09/02/2017 SHANTI KLARISSA E CARDIOLOGY TECHNOLOGIST Ot I27.20 PULMONARY HYPERTENSION, UNSPECIFIED 09/02/2017 SINA MOSERINE E CARDIOLOGY TECHNOLOGIST Ot I51.7 CARDIOMEGALY 09/02/2017 SINA MOSERINE Kristin CARDIOLOGY TECHNOLOGIST Ot J30.9 ALLERGIC RHINITIS, UNSPECIFIED 09/02/2017 SHANTI KLARISSA E CARDIOLOGY TECHNOLOGIST Ot R91.8 OTHER NONSPECIFIC ABNORMAL FINDING OF [...] UNSPECIFIE 09/03/2017 FELICITA CEDEÑO MD, Ot Z79.4 TRANSMISSION BUILDER (CURRENT) USE OF INSULIN 09/03/2017 SUHA TAYLOR [...] 09/03/2017 SUHA TAYLOR MD, Ot Z79. 4 TRANSMISSION BUILDER (CURRENT) USE OF INSULIN 09/03/2017 SUHA TAYLOR [...] KIDNEY DISEASE, STAGE 4 (SEVERE) 09/04/2017 SUHA TALYOR MD, Ot N30. 01 ACUTE CYSTITIS WITH [...] 09/04/2017 SUHA TAYLOR MD, Ot Z79. 4 TRANSMISSION BUILDER (CURRENT) USE OF INSULIN 09/04/2017 SUHA TAYLOR [...] N17. 9 ACUTE KIDNEY FAILURE, UNSPECIFIED 09/05/2017 USHA TAYLOR MD, Ot N18. 4 CHRONIC KIDNEY [...] LEV FROM SLIP/TRIP W STRIKE AG 09/05/2017 USHA TAYLOR MD, Ot Z79. 4 ASSISTED (CURRENT) USE OF INSULIN 09/05/2017 SUHA TAYLOR [...] 09/05/2017 SUHA TAYLOR MD, Ot Z79. 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 2 MIXED HYPERLIPIDEMIA 10/14/2017 CHASITY DE LA CRUZ MD, Ot G47. 33 OBSTRUCTIVE SLEEP APNEA (ADULT) (PEDIATR 10/14/2017 CHASITY DE LA CRUZ MD, Ot I12. 9 HYPERTENSIVE CHRONIC KIDNEY DISEASE W ST 10/14/2017 CHASITY DE LA CRUZ MD, Ot I25. 10 ATHSCL HEART DISEASE OF [place] CORONARY 10/14/2017 CHASITY DE LA CRUZ MD, [...] DE LA CRUZ MD, Ot Z79. 4 TRANSMISSION BUILDER (CURRENT) USE OF INSULIN 10/14/2017 CHASITY DE LA CRUZ MD, Ot Z79. 82 TRANSMISSION BUILDER (CURRENT) USE OF ASPIRIN 10/14/2017 CHASITY DE LA CRUZ MD, Ot Z79.899 OTHER TRANSMISSION BUILDER (CURRENT) DRUG THERAPY 10/14/2017 SHANTI, KLARISSA E CARDIOLOGY TECHNOLOGIST Ot E27.9 DISORDER OF ADRENAL [place], UNSPECIFIED 10/14/2017 KLARISSA MOSER CARDIOLOGY TECHNOLOGIST Ot I25.10 ATHSCL HEART DISEASE OF [place] CORONARY 10/14/2017 KLARISSA MOSER APRN Ot I27.20 PULMONARY HYPERTENSION, UNSPECIFIED 10/14/2017 KLARISSA MOSER APRN Ot I51.7 CARDIOMEGALY 10/14/2017 KLARISSA MOSER APRN Ot J30.9 ALLERGIC RHINITIS, UNSPECIFIED 10/14/2017 KLARISSA MOSER CARDIOLOGY TECHNOLOGIST Ot R91.8 OTHER NONSPECIFIC ABNORMAL FINDING OF KIM 10/22/2017 MIRTA TORRES CARDIOLOGY TECHNOLOGIST Ot M79.605 PAIN IN LEFT LEG 10/22/2017 MIRTA TORRES APRN Ot R60.0 LOCALIZED EDEMA 10/22/2017 Ot 787.91 SEEMA RRHEA 10/22/2017 Ot 496 CHR AI RWAY OBSTRUCT NEC 10/22/2017 Ot 786.05 GREG RTNESS OF BREATH 10/22/2017 Ot 786.2 COUGH 10/22/2017 GALA TY, FELICITA Borges Ot N39.0 URINARY TRACT INFECTION, SITE NOT SPECIF 10/22/2017 FELICITA CEDEÑO MD Ot R19.7 DIARRHEA, UNSPECIFIED 10/28/2017 MIRTA TORRES CARDIOLOGY TECHNOLOGIST Ot M79.605 PAIN IN LEFT LEG 10/28/2017 MIRTA TORRES APRN Ot R60.0 LOCALIZED EDEMA 10/28/2017 MIRTA TORRES CARDIOLOGY TECHNOLOGIST Ot M79.89 OTHER SPECIFIED SOFT TISSUE DISORDERS [...] Hess Ot I25.118 ATHSCL HEART DISEASE OF [place] COR ART W 10/29/2017 BLANCHO DPM, SANJUANA [...] 10/29/2017 BLANCHO DPM, SANJUANA Hess Ot Z79.4 TRANSMISSION BUILDER (CURRENT) USE OF INSULIN 10/29/2017 BLANCHO DPM, [...] Hess Ot I25.118 ATHSCL HEART DISEASE OF [place] COR ART W 10/29/2017 BLANCHO DPM, SANJUANA [...] 10/29/2017 BLANCHO DPM, SANJUANA Hess Ot Z79.4 TRANSMISSION BUILDER (CURRENT) USE OF INSULIN 10/29/2017 ALENCHO ABIMAELM, [...] Hess Ot I25.118 ATHSCL HEART DISEASE OF [place]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 2 MIXED HYPERLIPIDEMIA 11/13/2017 CHASITY DE LA CRUZ MD, Ot G47. 33 OBSTRUCTIVE SLEEP APNEA (ADULT) (PEDIATR 11/13/2017 CHASITY DE LA CRUZ MD, Ot I12. 9 HYPERTENSIVE CHRONIC KIDNEY DISEASE W ST 11/13/2017 CHASITY DE LA CRUZ MD, Ot I25. 10 ATHSCL HEART DISEASE OF [place] CORONARY 11/13/2017 CHASITY DE LA CRUZ MD, [...] DE LA CRUZ MD, Ot Z79. 4 TRANSMISSION BUILDER (CURRENT) USE OF INSULIN 11/13/2017 CHASITY DE LA CRUZ MD, Ot Z79. 82 ASSISTED (CURRENT) USE OF ASPIRIN 11/13/2017 CHASITY DE LA CRUZ MD, Ot Z79.899 OTHER TRANSMISSION BUILDER (CURRENT) DRUG THERAPY 11/21/2017 CHASITY DE LA CRUZ MD, Ot D50. 9 IRON DEFICIENCY ANEMIA, UNSPECIFIED 11/21/2017 CHASITY DE LA CRUZ MD, Ot D63. 1 ANEMIA IN CHRONIC KIDNEY DISEASE 11/21/2017 CHASITY DE LA CRUZ MD, Ot E03. 9 HYPOTHYROIDISM, UNSPECIFIED 11/21/2017 CHASITY DE LA CRUZ MD Ot E11. 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 2 MIXED HYPERLIPIDEMIA 11/21/2017 CHASIYT DE LA CRUZ MD, Ot G47. 33 OBSTRUCTIVE SLEEP APNEA (ADULT) (PEDIATR 11/21/2017 CHASITY DE LA CRUZ MD, Ot I12. 9 HYPERTENSIVE CHRONIC KIDNEY DISEASE W ST 11/21/2017 CHASITY DE LA CRUZ MD, Ot I25. 10 ATHSCL HEART DISEASE OF [place] CORONARY 11/21/2017 CHASITY DE LA CRUZ MD, [...] 11/21/2017 XUN MD, EPPS-GUI Ot Z79. 4 TRANSMISSION BUILDER (CURRENT) USE OF INSULIN 11/21/2017 CHASITY DE LA CRUZ MD Ot Z79. 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 11/21/2017 DINORA GREEN Ot E78.2 MIXED HYPERLIPIDEMIA 11/21/2017 DINORA GREEN Ot G47.33 OBSTRUCTIVE SLEEP APNEA (ADULT) (PEDIATR 11/21/2017 DINORA GREEN Ot 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 CHRONIC KIDNEY DISEASE W ST 11/21/2017 DINORA GREEN Ot I25.10 ATHSCL HEART DISEASE OF [place] CORONARY 11/21/2017 DINORA GREEN N Ot I27.20 PULMONARY HYPERTENSION, UNSPECIFIED 11/21/2017 DINORA GREEN Ot I73.9 PERIPHERAL VASCULAR DISEASE, UNSPECIFIED 11/21/2017 DINORA GREEN Ot J44.9 CHRONIC OBSTRUCTIVE PULMONARY DISEASE, U 11/21/2017 DINORA GREEN Ot M19.91 PRIMARY OSTEOARTHRITIS, UNSPECIFIED SITE 11/21/2017 DINORA GREEN Ot N18.4 CHRONIC KIDNEY DISEASE, STAGE 4 (SEVERE) 11/21/2017 DINORA GREEN Ot R91.1 SOLITARY PULMONARY NODULE 11/21/2017 DINORA GREEN Ot Z79.4 TRANSMISSION BUILDER (CURRENT) USE OF INSULIN 11/21/2017 DINORA GREEN Ot Z79.82 ASSISTED (CURRENT) USE OF ASPIRIN 11/21/2017 DINORA GREEN Ot Z79.899 OTHER TRANSMISSION BUILDER (CURRENT) DRUG THERAPY 11/25/2017 DINORA GREEN Ot D50.9 IRON DEFICIENCY ANEMIA, UNSPECIFIED 11/25/2017 DINORA GREEN Ot D63.1 ANEMIA IN CHRONIC KIDNEY DISEASE 11/25/2017 DINORA GREEN Ot E03.9 HYPOTHYROIDISM, UNSPECIFIED 11/25/2017 NORMADINORA REYES N Ot 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 11/25/2017 DINORA GREEN N Ot E78.2 MIXED HYPERLIPIDEMIA 11/25/2017 NORMADINORA REYES N Ot G47.33 OBSTRUCTIVE SLEEP APNEA (ADULT) (PEDIATR 11/25/2017 NORMADINORA REYES N Ot 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 CHRONIC KIDNEY DISEASE W ST 11/25/2017 NORMADINORA REYES N Ot I25.10 ATHSCL HEART DISEASE OF [place] CORONARY 11/25/2017 DINORA GREEN N Ot I27.20 [...] NODULE 11/25/2017 DINORA GREEN N Ot Z79.4 TRANSMISSION BUILDER (CURRENT) USE OF INSULIN 11/25/2017 DINORA GREEN N Ot Z79.82 TRANSMISSION BUILDER (CURRENT) USE OF ASPIRIN 11/25/2017 DINORA GREEN N Ot Z79.899 OTHER ASSISTED (CURRENT) DRUG THERAPY 11/26/2017 DINORA GREEN N Ot D50.9 IRON DEFICIENCY ANEMIA, UNSPECIFIED 11/26/2017 DINORA GREEN N Ot D63.1 ANEMIA IN CHRONIC KIDNEY DISEASE 11/26/2017 DINORA GREEN N Ot E03.9 HYPOTHYROIDISM, UNSPECIFIED 11/26/2017 DINORA GREEN N Ot 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 11/26/2017 DINORA GREEN N Ot E78.2 MIXED HYPERLIPIDEMIA 11/26/2017 DINORA GREEN N Ot G47.33 OBSTRUCTIVE SLEEP APNEA (ADULT) (PEDIATR 11/26/2017 DINORA GREEN N Ot 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 CHRONIC KIDNEY DISEASE W ST 11/26/2017 DINORA GREEN N Ot I25.10 ATHSCL HEART DISEASE OF [place] CORONARY 11/26/2017 DINORA GREEN N Ot I27.20 PULMONARY HYPERTENSION, UNSPECIFIED 11/26/2017 DINORA GREEN N Ot I73.9 PERIPHERAL VASCULAR DISEASE, UNSPECIFIED 11/26/2017 DINORA GREEN Ot J44.9 CHRONIC OBSTRUCTIVE PULMONARY DISEASE, U 11/26/2017 DINORA GREEN Ot M19.91 PRIMARY OSTEOARTHRITIS, UNSPECIFIED SITE 11/26/2017 DINORA GREEN Ot N18.4 CHRONIC KIDNEY DISEASE, STAGE 4 (SEVERE) 11/26/2017 DINORA GREEN Ot R91.1 SOLITARY PULMONARY NODULE 11/26/2017 DINORA GREEN Ot Z79.4 ASSISTED (CURRENT) USE OF INSULIN 11/26/2017 DINORA GREEN Ot Z79.82 ASSISTED (CURRENT) USE OF ASPIRIN 11/26/2017 DINORA GREEN Ot Z79.899 OTHER TRANSMISSION BUILDER (CURRENT) DRUG THERAPY 01/16/2018 DINORA GREEN Ot D50.9 IRON DEFICIENCY ANEMIA, UNSPECIFIED 01/16/2018 DINORA GREEN Ot D63.1 ANEMIA IN CHRONIC KIDNEY DISEASE 01/16/2018 DINORA GREEN Ot E03.9 HYPOTHYROIDISM, UNSPECIFIED 01/16/2018 DINORA GREEN N Ot 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 01/16/2018 DINORA GREEN Ot E78.2 MIXED HYPERLIPIDEMIA 01/16/2018 DINORA GREEN N Ot G47.33 OBSTRUCTIVE SLEEP APNEA (ADULT) (PEDIATR 01/16/2018 DINORA GREEN N Ot 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 CHRONIC KIDNEY DISEASE W ST 01/16/2018 DINORA GREEN Ot I25.10 ATHSCL HEART DISEASE OF [place] CORONARY 01/16/2018 DINORA GREEN Ot I27.20 PULMONARY [...] NODULE 01/16/2018 DINORA GREEN N Ot Z79.4 TRANSMISSION BUILDER (CURRENT) USE OF INSULIN 01/16/2018 DINORA GREEN N Ot Z79.82 ASSISTED (CURRENT) USE OF ASPIRIN 01/16/2018 DINORA GREEN N Ot Z79.899 OTHER TRANSMISSION BUILDER (CURRENT) DRUG THERAPY 01/21/2018 DINORA GREEN N Ot D50.9 IRON DEFICIENCY ANEMIA, UNSPECIFIED 01/21/2018 DINORA GREEN N Ot D63.1 ANEMIA IN CHRONIC KIDNEY DISEASE 01/21/2018 DINORA GREEN N Ot E03.9 HYPOTHYROIDISM, UNSPECIFIED 01/21/2018 DINORA GREEN N Ot 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 01/21/2018 DINORA GREEN N Ot E78.2 MIXED HYPERLIPIDEMIA 01/21/2018 DINORA GREEN N Ot G47.33 OBSTRUCTIVE SLEEP APNEA (ADULT) (PEDIATR 01/21/2018 DINORA GREEN N Ot 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 CHRONIC KIDNEY DISEASE W ST 01/21/2018 DINORA GREEN N Ot I25.10 ATHSCL HEART DISEASE OF [place] CORONARY 01/21/2018 DINORA GREEN N Ot I27.20 [...] NODULE 01/21/2018 DINORA GREEN N Ot Z79.4 ASSISTED (CURRENT) USE OF INSULIN 01/21/2018 DINORA GRENE N Ot Z79.82 ASSISTED (CURRENT) USE OF ASPIRIN 01/21/2018 DINORA GREEN N Ot Z79.899 OTHER ASSISTED (CURRENT) DRUG THERAPY 02/23/2018 DINORA GREEN N Ot D50.9 IRON DEFICIENCY ANEMIA, UNSPECIFIED 02/23/2018 DINORA GREEN N Ot D63.1 ANEMIA IN CHRONIC KIDNEY DISEASE 02/23/2018 DINORA GREEN N Ot E03.9 HYPOTHYROIDISM, UNSPECIFIED 02/23/2018 NORMAJOSIE REYESAN N Ot 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 02/23/2018 DINROA GREEN N Ot E78.2 MIXED HYPERLIPIDEMIA 02/23/2018 DINORA GREEN N Ot G47.33 OBSTRUCTIVE SLEEP APNEA (ADULT) (PEDIATR 02/23/2018 NORMADINORA REYES N Ot 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 CHRONIC KIDNEY DISEASE W ST 02/23/2018 NORMADINORA N Ot I25.10 ATHSCL HEART DISEASE OF [place] CORONARY 02/23/2018 DINORA GREEN N Ot I27.20 PULMONARY HYPERTENSION, UNSPECIFIED 02/23/2018 DINORA GREEN N Ot I73.9 PERIPHERAL VASCULAR DISEASE, UNSPECIFIED 02/23/2018 DINORA GREEN N Ot J44.9 CHRONIC OBSTRUCTIVE PULMONARY DISEASE, U 02/23/2018 DINORA GREEN N Ot M19.91 PRIMARY OSTEOARTHRITIS, UNSPECIFIED SITE 02/23/2018 DINOAR GREEN N Ot N18.4 CHRONIC KIDNEY DISEASE, STAGE 4 (SEVERE) 02/23/2018 DINORA GREEN N Ot R91.1 SOLITARY PULMONARY NODULE 02/23/2018 DINORA GREEN N Ot Z79.4 TRANSMISSION BUILDER (CURRENT) USE OF INSULIN 02/23/2018 DINORA GREEN N Ot Z79.82 ASSISTED (CURRENT) USE OF ASPIRIN 02/23/2018 DINORA GREEN N Ot Z79.899 OTHER TRANSMISSION BUILDER (CURRENT) DRUG THERAPY 02/24/2018 DINORA GREEN N Ot D50.9 IRON DEFICIENCY ANEMIA, UNSPECIFIED 02/24/2018 DINORA GREEN N Ot D63.1 ANEMIA IN CHRONIC KIDNEY DISEASE 02/24/2018 DINORA GREEN N Ot E03.9 HYPOTHYROIDISM, UNSPECIFIED 02/24/2018 DINORA GREEN N Ot 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 02/24/2018 DINORA GREEN N Ot E78.2 MIXED HYPERLIPIDEMIA 02/24/2018 NORMA BOBRACHELLE N Ot G47.33 OBSTRUCTIVE SLEEP APNEA (ADULT) (PEDIATR 02/24/2018 DINORA GREEN N Ot 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 CHRONIC KIDNEY DISEASE W ST 02/24/2018 NORMADINORA N Ot I25.10 ATHSCL HEART DISEASE OF [place] CORONARY 02/24/2018 DINORA GREEN Ot I27.20 PULMONARY HYPERTENSION, UNSPECIFIED 02/24/2018 DINORA GREEN Ot I73.9 PERIPHERAL VASCULAR DISEASE, UNSPECIFIED 02/24/2018 DINORA GREEN Ot J44.9 CHRONIC OBSTRUCTIVE PULMONARY DISEASE, U 02/24/2018 DINORA GREEN Ot M19.91 PRIMARY OSTEOARTHRITIS, UNSPECIFIED SITE 02/24/2018 DINORA GREEN Ot N18.4 CHRONIC KIDNEY DISEASE, STAGE 4 (SEVERE) 02/24/2018 DINORA GREEN Ot R91.1 SOLITARY PULMONARY NODULE 02/24/2018 DINORA GREEN Ot Z79.4 ASSISTED (CURRENT) USE OF INSULIN 02/24/2018 DINORA GREEN Casi Ot Z79.82 ASSISTED (CURRENT) USE OF ASPIRIN 02/24/2018 DINORA GREEN Ot Z79.899 OTHER ASSISTED (CURRENT) DRUG THERAPY 02/25/2018 Ot D64.9 ANEM [...] Ot I25.10 ATH SCL HEART DISEASE OF [place] CORONARY 02/25/2018 Ot J44.9 RIPENING ROOM OPERATOR LORI OBSTRUCTIVE PULMONARY DISEASE, U 02/25/2018 Ot 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 02/25/2018 Ot N39.0 URIN SOCORRO TRACT INFECTION, SITE NOT SPECIF 02/25/2018 Ot R10.30 LOW ER ABDOMINAL PAIN, UNSPECIFIED 02/25/2018 Ot Z79.4 ASSISTED (CURRENT) USE OF INSULIN 02/25/2018 Ot Z79.51 MITESH G TERM (CURRENT) USE OF INHALED STERO 02/25/2018 Ot Z82.49 FAM TAYA HX OF ISCHEM HEART DIS AND OTH 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 03/17/2018 DINORA GREEN N Ot E78.2 MIXED HYPERLIPIDEMIA 03/17/2018 DINORA GREEN N Ot G47.33 OBSTRUCTIVE SLEEP APNEA (ADULT) (PEDIATR 03/17/2018 DINORA GREEN N Ot 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 CHRONIC KIDNEY DISEASE W ST 03/17/2018 DINORA GREEN N Ot I25.10 ATHSCL HEART DISEASE OF [place] CORONARY 03/17/2018 DINORA GREEN N Ot I27.20 [...] NODULE 03/17/2018 DINORA GREEN N Ot Z79.4 ASSISTED (CURRENT) USE OF INSULIN 03/17/2018 DINORA GREEN N Ot Z79.82 TRANSMISSION BUILDER (CURRENT) USE OF ASPIRIN 03/17/2018 DINORA GREEN N Ot Z79.899 OTHER TRANSMISSION BUILDER (CURRENT) DRUG THERAPY 03/17/2018 NORMADINORA N Ot D50.9 IRON DEFICIENCY ANEMIA, UNSPECIFIED 03/17/2018 NORMA, DINORA N Ot D63.1 ANEMIA IN CHRONIC KIDNEY DISEASE 03/17/2018 NORMADINORA N Ot E03.9 HYPOTHYROIDISM, UNSPECIFIED 03/17/2018 NORMADINORA N Ot 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 03/17/2018 NORMADINORA N Ot E78.2 MIXED HYPERLIPIDEMIA 03/17/2018 NORMADINORA N Ot G47.33 OBSTRUCTIVE SLEEP APNEA (ADULT) (PEDIATR 03/17/2018 NORMADINORA N Ot 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 CHRONIC KIDNEY DISEASE W ST 03/17/2018 NORMADINORA N Ot I25.10 ATHSCL HEART DISEASE OF [place] CORONARY 03/17/2018 NORMADINORA N Ot I27.20 PULMONARY HYPERTENSION, UNSPECIFIED 03/17/2018 NORMADINORA N Ot I73.9 PERIPHERAL VASCULAR DISEASE, UNSPECIFIED 03/17/2018 DINORA GREEN N Ot J44.9 CHRONIC OBSTRUCTIVE PULMONARY DISEASE, U 03/17/2018 NORMADINORA N Ot M19.91 PRIMARY OSTEOARTHRITIS, UNSPECIFIED SITE 03/17/2018 NORMADINORA N Ot N18.4 CHRONIC KIDNEY DISEASE, STAGE 4 (SEVERE) 03/17/2018 NORMADINORA N Ot R91.1 SOLITARY PULMONARY NODULE 03/17/2018 NORMAJOSIERACHELLE N Ot Z79.4 ASSISTED (CURRENT) USE OF INSULIN 03/17/2018 DINORA GREEN N Ot Z79.82 ASSISTED (CURRENT) USE OF ASPIRIN 03/17/2018 DINORA GREEN N Ot Z79.899 OTHER ASSISTED (CURRENT) DRUG THERAPY 03/20/2018 DIETER LOVE APRN Ot D64 .9 ANEMIA, UNSPECIFIED 03/20/2018 DIETER LOVE APRN Ot 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 03/20/2018 DIETER LOVE APRN Ot E87 .1 [...] APRN Ot I25.10 ATHSCL HEART DISEASE OF [place] CORONARY 03/20/2018 DIETER LOVE APRN Ot K21 .9 GASTRO-ESOPHAGEAL REFLUX DISEASE WITHOUT 03/20/2018 DIETER LOVE APRN Ot N18 .9 CHRONIC KIDNEY DISEASE, UNSPECIFIED 03/20/2018 DIETER LOVE APRN Ot N39 .0 URINARY TRACT INFECTION, SITE NOT SPECIF 03/20/2018 DIETER LOVE APRN Ot R25 .1 TREMOR, UNSPECIFIED 03/20/2018 DIETER LOVE APRN Ot Z79 .4 ASSISTED (CURRENT) USE OF INSULIN 03/20/2018 DIETER LOVE APRN Ot Z79.51 TRANSMISSION BUILDER (CURRENT) USE OF INHALED STERO 03/20/2018 DIETER 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 03/23/2018 NORMA, DINORA Lance Ot E78.2 MIXED HYPERLIPIDEMIA 03/23/2018 NORMADINORA Ot G47.33 OBSTRUCTIVE SLEEP APNEA (ADULT) (PEDIATR 03/23/2018 NORMADINORA Ot 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 CHRONIC KIDNEY DISEASE W ST 03/23/2018 NORMADINORA Ot I25.10 ATHSCL HEART DISEASE OF [place] CORONARY 03/23/2018 DINORA GREEN Ot I27.20 PULMONARY HYPERTENSION, UNSPECIFIED 03/23/2018 NORMADINORA Ot I73.9 PERIPHERAL VASCULAR DISEASE, UNSPECIFIED 03/23/2018 NORMADINORA Ot J44.9 CHRONIC OBSTRUCTIVE PULMONARY DISEASE, U 03/23/2018 NORMADINORA REYES Ot M19.91 PRIMARY OSTEOARTHRITIS, UNSPECIFIED SITE 03/23/2018 NORMADINORA Ot N18.4 CHRONIC KIDNEY DISEASE, STAGE 4 (SEVERE) 03/23/2018 DINORA GREEN Ot R91.1 SOLITARY PULMONARY NODULE 03/23/2018 DINORA GREEN Ot Z79.4 ASSISTED (CURRENT) USE OF INSULIN 03/23/2018 DINORA GREEN Ot Z79.82 TRANSMISSION BUILDER (CURRENT) USE OF ASPIRIN 03/23/2018 DINORA GREEN Ot Z79.899 OTHER ASSISTED (CURRENT) DRUG THERAPY 03/24/2018 DIETER LOVE APRN Ot D64 .9 ANEMIA, UNSPECIFIED 03/24/2018 DIETER LOVE APRN Ot 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 10 ATHSCL HEART DISEASE OF [place] CORONARY 03/25/2018 SUHA TAYLOR MD, Ot J44. [...] 03/25/2018 SUHA TAYLOR MD Ot Z79. 4 TRANSMISSION BUILDER (CURRENT) USE OF INSULIN 03/25/2018 SUHA TAYLOR MD Ot Z87. 01 PERSONAL HISTORY OF PNEUMONIA (RECURRENT 03/25/2018 SUHA TAYLOR MD Ot Z87.440 PERSONAL HISTORY OF URINARY (TRACT) INFE 03/25/2018 SUHA TAYLOR MD, Ot A41. 9 SEPSIS, UNSPECIFIED ORGANISM 03/25/2018 SUHA TAYLOR MD, Ot E07. 9 DISORDER [...] Ot G47. 30 SLEEP APNEA, UNSPECIFIED 03/25/2018 SUAH TAYLOR MD Ot I12. 9 HYPERTENSIVE CHRONIC KIDNEY DISEASE W ST 03/25/2018 SUHA TAYLOR MD Ot I25. 10 ATHSCL HEART DISEASE OF [place] CORONARY 03/25/2018 SUHA TAYLOR MD, Ot J44. [...] 03/25/2018 SUHA TAYLOR MD Ot Z79. 4 ASSISTED (CURRENT) USE OF INSULIN 03/25/2018 SUHA TAYLOR MD Ot Z87. 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 03/26/2018 DIETER LOVE APRN Ot E87 .1 HYPO-OSMOLALITY AND HYPONATREMIA 03/26/2018 DIETER LOVE APRN Ot F03.90 UNSPECIFIED DEMENTIA WITHOUT BEHAVIORAL 03/26/2018 DIETER LOVE APRN Ot F32 .9 MAJOR DEPRESSIVE DISORDER, SINGLE EPISOD 03/26/2018 DIETER LOVE APRN Ot F41 .9 ANXIETY DISORDER, UNSPECIFIED 03/26/2018 DIETER OLVE APRN Ot I12 .9 HYPERTENSIVE CHRONIC KIDNEY DISEASE W ST 03/26/2018 DIETER LOVE APRN Ot I25.10 ATHSCL HEART DISEASE OF [place] CORONARY 03/26/2018 DIETER LOVE APRN Ot K21 .9 GASTRO-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 10 ATHSCL HEART DISEASE OF [place] CORONARY 03/26/2018 SUHA TAYLOR MD, Ot J20. [...] 03/26/2018 SUHA TAYLOR MD, Ot Z79. 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 10 ATHSCL HEART DISEASE OF [place] CORONARY 04/23/2018 JULIETTE GOMEZ MD, Ot I65. 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 10 ATHSCL HEART DISEASE OF [place] CORONARY 04/26/2018 JULIETTE GOMEZ MD, Ot I65. 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 4 TRANSMISSION BUILDER (CURRENT) USE OF INSULIN 04/26/2018 JULIETTE GOMEZ MD Ot Z95. 5 PRESENCE OF CORONARY ANGIOPLASTY IMPLANT 04/27/2018 JULIETTE GOMEZ MD, Ot E78. 2 MIXED HYPERLIPIDEMIA 04/27/2018 JULIETTE GOMEZ MD Ot I10 ESSENTIAL (PRIMARY) HYPERTENSION 04/27/2018 JULIETTE GOMEZ MD, Ot I25. 10 ATHSCL HEART DISEASE OF [place] CORONARY 04/27/2018 JULIETTE GOMEZ MD, Ot I65. 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 04/28/2018 NORMA, JOSIERACHELLE N Ot E78.2 MIXED HYPERLIPIDEMIA 04/28/2018 NORMADINORA N Ot G47.33 OBSTRUCTIVE SLEEP APNEA (ADULT) (PEDIATR 04/28/2018 NORMAJOSIERACHELLE N Ot 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 CHRONIC KIDNEY DISEASE W ST 04/28/2018 NORMAJOSIE REYESRACHELLE N Ot I25.10 ATHSCL HEART DISEASE OF [place] CORONARY 04/28/2018 NORMADINORA Ot I27.20 PULMONARY HYPERTENSION, [...] NODULE 04/28/2018 NORMA DINORA N Ot Z79.4 ASSISTED (CURRENT) USE OF INSULIN 04/28/2018 DINORA GREEN N Ot Z79.82 TRANSMISSION BUILDER (CURRENT) USE OF ASPIRIN 04/28/2018 DINORA GREEN Ot Z79.899 OTHER ASSISTED (CURRENT) DRUG THERAPY 04/28/2018 ANGEL FLOWERS Ot 793.80 UNSPEC ABNORMAL MAMMOGRAM 04/28/2018 ANGEL FLOWERS Ot V67.9 FOLLOW-UP EXAM NOS 04/28/2018 Ot 272.4 HYPE RLIPIDEMIA NEC/NOS 04/28/2018 Ot 401.9 HYPE RTENSION NOS 04/28/2018 ANGEL FLOWERS Ot 280.9 IRON DEFIC ANEMIA NOS 04/28/2018 ANGEL FLOWERS Ot 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 04/28/2018 FLOWERS, HILAH S ENTRY LEVEL PROJECT ENGINEER Ot 414.00 CORON ATHEROSCLER NOS TYPE VESSEL, NATIV 04/28/2018 ANGEL FLOWERS ENTRY LEVEL PROJECT ENGINEER Ot 585.3 CHRONIC KIDNEY DISEASE, STAGE III (MODER 04/28/2018 ANGEL FLOWERS ENTRY LEVEL PROJECT ENGINEER Ot 599.0 URIN TRACT INFECTION NOS 04/28/2018 ANGEL FLOWERS ENTRY LEVEL PROJECT ENGINEER Ot V58.69 OTH MED,LT,CURRENT USE 04/28/2018 ANGEL FLOWERS ENTRY LEVEL PROJECT ENGINEER Ot 280.0 CHR BLOOD LOSS ANEMIA 04/28/2018 ANGEL FLOWERS ENTRY LEVEL PROJECT ENGINEER Ot 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 04/28/2018 FLOWERSANGEL Garza ENTRY LEVEL PROJECT ENGINEER Ot 414.00 CORON ATHEROSCLER NOS TYPE VESSEL, NATIV 04/28/2018 ANGEL FLOWERS ENTRY LEVEL PROJECT ENGINEER Ot 585.3 CHRONIC KIDNEY DISEASE, STAGE III (MODER 04/28/2018 ANGEL FLOWERS ENTRY LEVEL PROJECT ENGINEER Ot V58.69 OTH MED,LT,CURRENT USE 04/28/2018 DINORA [...] MD Ot 414. 01 CORONARY ATHEROSCLEROSIS OF [place] CORON 04/28/2018 ANGEL FLOWERS ENTRY LEVEL PROJECT ENGINEER Ot 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 04/28/2018 ANGEL FLOWERS ENTRY LEVEL PROJECT ENGINEER Ot 585.3 CHRONIC KIDNEY DISEASE, STAGE III (MODER 04/28/2018 KRISTIE MIGUELJENS Kayla ENTRY LEVEL PROJECT ENGINEER Ot V58.69 OTH MED,LT,CURRENT USE 04/28/2018 MIGUEL FLOWERSJENS Kayla ENTRY LEVEL PROJECT ENGINEER Ot 429.3 CARDIOMEGALY 04/28/2018 ANGEL FLOWERS ENTRY LEVEL PROJECT ENGINEER Ot 786.09 RESPIRATORY ABNORM NEC 04/28/2018 MIGUEL FLOWERSJENS S ENTRY LEVEL PROJECT ENGINEER Ot 786.2 COUGH 04/28/2018 MIGUEL FLOWERSJENS S ENTRY LEVEL PROJECT ENGINEER Ot 280.9 IRON DEFIC ANEMIA NOS 04/28/2018 ANGEL FLOWERS ENTRY LEVEL PROJECT ENGINEER Ot 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 04/28/2018 ANGEL FLOWERS ENTRY LEVEL PROJECT ENGINEER Ot 585.3 CHRONIC KIDNEY DISEASE, STAGE III (MODER 04/28/2018 ANGEL FLOWERS ENTRY LEVEL PROJECT ENGINEER Ot V58.69 OTH MED,LT,CURRENT USE 04/28/2018 DELILAH FRIAS MD Ot 250.92 DIAB W UNSPEC COMPL, TYPE II OR UNSPEC T 04/28/2018 DELILAH FRIAS MD Ot 272.4 HYPERLIPIDEMIA NEC/NOS 04/28/2018 DELILAH FRIAS MD Ot 355.9 MONONEURITIS NOS 04/28/2018 MIGUEL FLOWERSJENS Kayla ENTRY LEVEL PROJECT ENGINEER Ot 280.9 IRON DEFIC ANEMIA NOS 04/28/2018 MIGUEL FLOWERSJENS S ENTRY LEVEL PROJECT ENGINEER Ot 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 04/28/2018 ANGEL FLOWERS ENTRY LEVEL PROJECT ENGINEER Ot 585.3 CHRONIC KIDNEY DISEASE, STAGE III (MODER 04/28/2018 ANGEL FLOWERS ENTRY LEVEL PROJECT ENGINEER Ot V58.69 OTH MED,LT,CURRENT USE 04/28/2018 ANGEL FLOWERS ENTRY LEVEL PROJECT ENGINEER Ot 280.9 IRON DEFIC ANEMIA NOS 04/28/2018 ANGEL FLOWERS S ENTRY LEVEL PROJECT ENGINEER Ot 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 04/28/2018 ANGEL FLOWERS S ENTRY LEVEL PROJECT ENGINEER Ot 585.3 CHRONIC KIDNEY DISEASE, STAGE III (MODER 04/28/2018 ANGEL FLOWERS ENTRY LEVEL PROJECT ENGINEER Ot V58.69 OTH MED,LT,CURRENT USE 04/28/2018 LEXIE GONZALES ENTRY LEVEL PROJECT ENGINEER Ot 496 CHR AIRWAY OBSTRUCT NEC 04/28/2018 GONZALES LEXIE Benitez ENTRY LEVEL PROJECT ENGINEER Ot 786.39 OTHER HEMOPTYSIS 04/28/2018 GONZALES, LEXIE Benitez ENTRY LEVEL PROJECT ENGINEER Ot 786.2 COUGH 04/28/2018 GONZALES, LEXIE Benitez ENTRY LEVEL PROJECT ENGINEER Ot 786.30 HEMOPTYSIS, UNSPECIFIED 04/28/2018 GONZALES, LEXIE Benitez ENTRY LEVEL PROJECT ENGINEER Ot 793.11 SOLITARY PULMONARY NODULE 04/28/2018 CHRISTIAN LEXIE Benitez ENTRY LEVEL PROJECT ENGINEER Ot 786.39 OTHER HEMOPTYSIS 04/28/2018 PATRICIA TY, [...] Ot 786. 2 COUGH 04/28/2018 ANGEL FLOWERS ENTRY LEVEL PROJECT ENGINEER Ot 280.9 IRON DEFIC ANEMIA NOS 04/28/2018 ANGEL FLOWERS S ENTRY LEVEL PROJECT ENGINEER Ot 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 04/28/2018 ANGEL FLOWERS ENTRY LEVEL PROJECT ENGINEER Ot 585.3 CHRONIC KIDNEY DISEASE, STAGE III (MODER 04/28/2018 ANGEL FLOWERS ENTRY LEVEL PROJECT ENGINEER Ot 780.60 FEVER, UNSPECIFIED 04/28/2018 ANGEL FLOWERS ENTRY LEVEL PROJECT ENGINEER Ot 787.01 NAUSEA WITH VOMITING 04/28/2018 ANGEL FLOWERS ENTRY LEVEL PROJECT ENGINEER Ot 787.91 DIARRHEA 04/28/2018 ANGEL FLOWERS ENTRY LEVEL PROJECT ENGINEER Ot V58.69 OT MED,LT,CURRENT USE 04/28/2018 GALA TY, FELICITA Borges Ot V76.1 2 OTH SCREEN MAMMO-MALIGN NEOPLASM OF [place] 04/28/2018 MIRTA TORRES APRN Ot 786.2 COUGH 04/28/2018 Ot 280.9 IRON DEFIC ANEMIA NOS 04/28/2018 Ot 285.21 ANE ASPEN IN CHRONIC KIDNEY DISEASE 04/28/2018 Ot 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, STAGE IV (SEVERE 04/28/2018 [...] 793.11 SOLITARY PULMONARY NODULE 04/28/2018 ANGEL FLOWERS ENTRY LEVEL PROJECT ENGINEER Ot V58.69 OTH MED,LT,CURRENT USE 04/28/2018 FLOWERSANGEL Garza S ENTRY LEVEL PROJECT ENGINEER Ot 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 04/28/2018 ANGEL FLOWERS S ENTRY LEVEL PROJECT ENGINEER Ot 585.4 CHRONIC KIDNEY DISEASE, STAGE IV (SEVERE 04/28/2018 FLOWERSANGEL Garza S ENTRY LEVEL PROJECT ENGINEER Ot V58.69 OTH MED,LT,CURRENT USE 04/28/2018 FLOWERSANGEL Garza S ENTRY LEVEL PROJECT ENGINEER Ot 4 86 PNEUMONIA, ORGANISM NOS 04/28/2018 FLOWERSANGEL S ENTRY LEVEL PROJECT ENGINEER Ot 4 96 CHR AIRWAY OBSTRUCT NEC 04/28/2018 FLOWERSANGEL Garza S ENTRY LEVEL PROJECT ENGINEER Ot 784.0 HEADACHE 04/28/2018 ANGEL FLOWERS S ENTRY LEVEL PROJECT ENGINEER Ot 786.05 SHORTNESS OF BREATH 04/28/2018 FLOWERSANGEL Garza S ENTRY LEVEL PROJECT ENGINEER Ot 786.2 COUGH 04/28/2018 KLARISSA MOSER CARDIOLOGY TECHNOLOGIST Ot G47.33 OBSTRUCTIVE SLEEP APNEA (ADULT) (PEDIATR 04/28/2018 KLARISSA MOSER CARDIOLOGY TECHNOLOGIST Ot I27.2 OTHER SECONDARY PULMONARY HYPERTENSION 04/28/2018 KLARISSA MOSER CARDIOLOGY TECHNOLOGIST Ot J44.9 CHRONIC OBSTRUCTIVE PULMONARY DISEASE, U 04/28/2018 KLARISSA MOSER APRN Ot R06.02 SHORTNESS OF BREATH 04/28/2018 KLARISSA MOSER CARDIOLOGY TECHNOLOGIST Ot R91.1 SOLITARY PULMONARY NODULE 04/28/2018 AR [...] 9 FALL NOS 04/28/2018 KRISTIE ANGEL S ENTRY LEVEL PROJECT ENGINEER Ot 280.0 CHR BLOOD LOSS ANEMIA 04/28/2018 KRISTIE ANGEL S ENTRY LEVEL PROJECT ENGINEER Ot 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 04/28/2018 ANGEL FLOWERS ENTRY LEVEL PROJECT ENGINEER Ot 585.3 CHRONIC KIDNEY DISEASE, STAGE III (MODER 04/28/2018 ANGEL FLOWERS ENTRY LEVEL PROJECT ENGINEER Ot 599.0 URIN TRACT INFECTION NOS 04/28/2018 ANGEL FLOWERS ENTRY LEVEL PROJECT ENGINEER Ot 793.11 SOLITARY PULMONARY NODULE 04/28/2018 ANGEL FLOWERS ENTRY LEVEL PROJECT ENGINEER Ot V58.69 OTH MED,LT,CURRENT USE 04/28/2018 MIRTA [...] ADULT MEDICAL EXAM W/ 04/28/2018 ANGEL FLOWERS ENTRY LEVEL PROJECT ENGINEER Ot D50.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 04/28/2018 ANGEL FLOWERS ENTRY LEVEL PROJECT ENGINEER Ot D63.1 ANEMIA IN CHRONIC KIDNEY DISEASE 04/28/2018 ANGEL FLOWERS ENTRY LEVEL PROJECT ENGINEER Ot N18.3 CHRONIC KIDNEY DISEASE, STAGE 3 (MODERAT 04/28/2018 ANGEL FLOWERS ENTRY LEVEL PROJECT ENGINEER Ot Z79.899 OTHER TRANSMISSION BUILDER (CURRENT) DRUG THERAPY 04/28/2018 AR ALLEN DO [...] MELLITUS WITH UNSPECIFIE 04/28/2018 FLOWERS, HILAH S ENTRY LEVEL PROJECT ENGINEER Ot D50.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 04/28/2018 KRISTIEANGEL ENTRY LEVEL PROJECT ENGINEER Ot D63.1 ANEMIA IN CHRONIC KIDNEY DISEASE 04/28/2018 ANGEL FLOWERS Kayla ENTRY LEVEL PROJECT ENGINEER Ot N18.3 CHRONIC KIDNEY DISEASE, STAGE 3 (MODERAT 04/28/2018 KRISTIE ANGEL Garza ENTRY LEVEL PROJECT ENGINEER Ot Z79.899 OTHER ASSISTED (CURRENT) DRUG THERAPY 04/28/2018 FELICITA CEDEÑO MD, Ot R51 HEADACHE 04/28/2018 JANA PALACIOS Ot I10 ESSENTIAL (PRIMARY) HYPERTENSION 04/28/2018 JANA PALACIOS Ot I25.10 ATHSCL HEART DISEASE OF [place] CORONARY 04/28/2018 JANA PALACIOS Ot I65.23 OCCLUSION AND STENOSIS OF BILATERAL [place] 04/28/2018 JANA PALACIOS Ot R07.89 OTHER CHEST PAIN 04/28/2018 MIRTA TORRES CARDIOLOGY TECHNOLOGIST Ot M25.511 PAIN IN RIGHT SHOULDER 04/28/2018 MIRTA TORRES CARDIOLOGY TECHNOLOGIST Ot R07.9 CHEST PAIN, UNSPECIFIED 04/28/2018 ANGEL FLOWERS ENTRY LEVEL PROJECT ENGINEER Ot D50.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 04/28/2018 ANGEL FLOWERS ENTRY LEVEL PROJECT ENGINEER Ot D63.1 ANEMIA IN CHRONIC KIDNEY DISEASE 04/28/2018 ANGEL FLOWERS Kayla ENTRY LEVEL PROJECT ENGINEER Ot N18.3 CHRONIC KIDNEY DISEASE, STAGE 3 (MODERAT 04/28/2018 ANGEL FLOWERS ENTRY LEVEL PROJECT ENGINEER Ot Z79.899 OTHER ASSISTED (CURRENT) DRUG THERAPY 04/28/2018 FELICITA CEDEÑO MD [...] BLOOD CELL COUNT, UNSPECI 04/28/2018 MIRTA TORRES CARDIOLOGY TECHNOLOGIST Ot N39.0 URINARY TRACT INFECTION, SITE NOT SPECIF 04/28/2018 ANGEL FLOWERS S ENTRY LEVEL PROJECT ENGINEER Ot D50.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 04/28/2018 ANGEL FLOWERS ENTRY LEVEL PROJECT ENGINEER Ot D63.1 ANEMIA IN CHRONIC KIDNEY DISEASE 04/28/2018 ANGEL FLOWERS ENTRY LEVEL PROJECT ENGINEER Ot N18.3 CHRONIC KIDNEY DISEASE, STAGE 3 (MODERAT 04/28/2018 ANGEL FLOWERS ENTRY LEVEL PROJECT ENGINEER Ot Z79.899 OTHER ASSISTED (CURRENT) DRUG THERAPY 04/28/2018 DELILAH HARE Ot [...] FELICITA CEDEÑO MD Ot Z79.8 99 OTHER TRANSMISSION BUILDER (CURRENT) DRUG THERAPY 04/28/2018 AR ALLEN DO Ot G47. 33 OBSTRUCTIVE SLEEP APNEA (ADULT) (PEDIATR 04/28/2018 AR ALLEN DO Ot J44. 9 CHRONIC OBSTRUCTIVE PULMONARY DISEASE, U 04/28/2018 AR ALLEN DO Ot R05 COUGH 04/28/2018 AR ALLEN DO Ot R06. 02 SHORTNESS OF BREATH 04/28/2018 KLARISSA MOSER APRN Ot E27.9 DISORDER OF [place], UNSPECIFIED 04/28/2018 SHANTI, KLARISSA E CARDIOLOGY TECHNOLOGIST Ot I25.10 ATHSCL HEART DISEASE OF [place] CORONARY 04/28/2018 KLARISSA MOSER APRN Ot I27.20 [...] FELICITA CEDEÑO MD Ot Z79.8 99 OTHER ASSISTED (CURRENT) DRUG THERAPY 04/28/2018 ANGEL FLOWERS ENTRY LEVEL PROJECT ENGINEER Ot R26.81 UNSTEADINESS ON FEET 04/28/2018 ANGEL FLOWERS ENTRY LEVEL PROJECT ENGINEER Ot R41.82 ALTERED MENTAL STATUS, UNSPECIFIED 04/28/2018 FELICITA CEDEÑO MD, Ot E11.9 TYPE 2 DIABETES MELLITUS WITHOUT COMPLIC 04/28/2018 FELICITA CEDEÑO MD, Ot E78.5 HYPERLIPIDEMIA, UNSPECIFIED 04/28/2018 FELICITA CEDEÑO MD, Ot I10 ESSENTIAL (PRIMARY) HYPERTENSION 04/28/2018 FELICITA CEDEÑO MD Ot Z79.8 99 OTHER TRANSMISSION BUILDER (CURRENT) DRUG THERAPY 04/28/2018 MIRTA TORRES APRN [...] UNSPECIFIE 04/28/2018 FELICITA CEDEÑO MD Ot Z79.4 TRANSMISSION BUILDER (CURRENT) USE OF INSULIN 04/28/2018 MIRTA TORRES APRN Ot M79.605 PAIN IN LEFT LEG 04/28/2018 MIRAT TORRES APRN Ot R60.0 LOCALIZED EDEMA 04/28/2018 MIRTA TORRES CARDIOLOGY TECHNOLOGIST Ot M79.89 OTHER SPECIFIED SOFT TISSUE DISORDERS 04/28/2018 JULIETTE GOMEZ MD, Ot E78. 2 MIXED HYPERLIPIDEMIA 04/28/2018 JULIETTE GOMEZ MD Ot I10 ESSENTIAL (PRIMARY) HYPERTENSION 04/28/2018 JULIETTE GOMEZ MD, Ot I25. 10 ATHSCL HEART DISEASE OF [place] CORONARY 04/28/2018 JULIETTE GOMEZ MD Ot I65. 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 04/28/2018 DINORA GREEN Ot E78.2 MIXED HYPERLIPIDEMIA 04/28/2018 DINORA GREEN Ot G47.33 OBSTRUCTIVE SLEEP APNEA (ADULT) (PEDIATR 04/28/2018 DINORA GREEN Ot 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 CHRONIC KIDNEY DISEASE W ST 04/28/2018 DINORA GREEN Ot I25.10 ATHSCL HEART DISEASE OF [place] CORONARY 04/28/2018 DINORA GREEN Ot I27.20 PULMONARY HYPERTENSION, UNSPECIFIED 04/28/2018 DINORA GREEN Ot I73.9 PERIPHERAL VASCULAR DISEASE, UNSPECIFIED 04/28/2018 DINORA GREEN Ot J44.9 CHRONIC OBSTRUCTIVE PULMONARY DISEASE, U 04/28/2018 DINORA GREEN Ot M19.91 PRIMARY OSTEOARTHRITIS, UNSPECIFIED SITE 04/28/2018 DINORA GREEN Ot N18.4 CHRONIC KIDNEY DISEASE, STAGE 4 (SEVERE) 04/28/2018 DINORA GREEN Ot R91.1 SOLITARY PULMONARY NODULE 04/28/2018 DINORA GREEN Ot Z79.4 TRANSMISSION BUILDER (CURRENT) USE OF INSULIN 04/28/2018 DINORA GREEN Ot Z79.82 ASSISTED (CURRENT) USE OF ASPIRIN 04/28/2018 DINORA GREEN Ot Z79.899 OTHER ASSISTED (CURRENT) DRUG THERAPY 04/29/2018 TAPAN DUVALL MD, Ot E11.621 TYPE 2 DIABETES MELLITUS WITH FOOT ULCER 04/29/2018 TAPAN DUVALL MD, Ot 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 04/29/2018 TAPAN DUVALL MD, Ot L97.426 NON-PRS CHR ULC OF L HEEL/MIDFT W BNE IN 04/29/2018 TAPAN DUVALL MD, Ot 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, LEFT ANKLE AND FOOT 04/30/2018 TAPAN DUVALL MD, Ot E11.621 TYPE 2 DIABETES MELLITUS WITH FOOT ULCER 04/30/2018 TAPAN DUVALL MD, Ot 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 04/30/2018 DINORA GREEN N Ot E78.2 MIXED HYPERLIPIDEMIA 04/30/2018 NORMADINORA REYES N Ot G47.33 OBSTRUCTIVE SLEEP APNEA (ADULT) (PEDIATR 04/30/2018 NORMAJOSIERACHELLE N Ot 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 CHRONIC KIDNEY DISEASE W ST 04/30/2018 NORMAJOSIERACHELLE N Ot I25.10 ATHSCL HEART DISEASE OF [place] CORONARY 04/30/2018 NORMAJOSIERACHELLE N Ot I27.20 PULMONARY [...] NODULE 04/30/2018 NORMA DINORA N Ot Z79.4 TRANSMISSION BUILDER (CURRENT) USE OF INSULIN 04/30/2018 NORMAJOSIERACHELLE N Ot Z79.82 TRANSMISSION BUILDER (CURRENT) USE OF ASPIRIN 04/30/2018 NORMA DINORA N Ot Z79.899 OTHER TRANSMISSION BUILDER (CURRENT) DRUG THERAPY 05/03/2018 SEN DELONG MD [...] Ot I25. 10 ATHSCL HEART DISEASE OF [place] CORONARY 05/03/2018 SEN DELONG MD Ot K21. [...] 05/03/2018 SEN DELONG MD Ot Z79. 4 TRANSMISSION BUILDER (CURRENT) USE OF INSULIN 05/03/2018 SEN DELONG MD Ot Z79. 51 ASSISTED (CURRENT) USE OF INHALED STERO 05/03/2018 SEN DELONG MD Ot Z79. 82 TRANSMISSION BUILDER (CURRENT) USE OF ASPIRIN 05/03/2018 SEN DELONG MD Ot Z82. 49 FAMILY HX OF ISCHEM HEART DIS AND OTH DI 05/03/2018 SEN DELONG MD Ot Z86.010 PERSONAL HISTORY OF COLONIC POLYPS 05/03/2018 SEN DELONG MD Ot Z87.440 PERSONAL HISTORY OF URINARY (TRACT) INFE 05/03/2018 SEN DELONG MD Ot Z87.448 PERSONAL HISTORY [...] Ot I25. 10 ATHSCL HEART DISEASE OF [place] CORONARY 05/04/2018 SEN DELONG MD Ot K21. [...] 05/04/2018 SEN DELONG MD Ot Z79. 4 ASSISTED (CURRENT) USE OF INSULIN 05/04/2018 SEN DELONG MD Ot Z79. 51 TRANSMISSION BUILDER (CURRENT) USE OF INHALED STERO 05/04/2018 SEN DELONG MD Ot Z79. 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, UNSTAGEABLE 05/05/2018 BRIAN MIRTA R CARDIOLOGY TECHNOLOGIST Ot L97.222 NON-PRESSURE CHRONIC ULCER OF LEFT CALF 05/05/2018 MIRTA TORRES CARDIOLOGY TECHNOLOGIST Ot 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 05/05/2018 MIRTA TORRES CARDIOLOGY TECHNOLOGIST Ot 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, LEFT ANKLE AND [...] Hess Ot I25.10 ATHSCL HEART DISEASE OF [place] CORONARY 05/05/2018 BLANCHO DPM, SANJUANA Hess Ot I73.9 PERIPHERAL VASCULAR DISEASE, UNSPECIFIED 05/05/2018 BLAMATAHO KEEGAN, SANJUANA Hess Ot K21.9 GASTRO-ESOPHAGEAL REFLUX DISEASE WITHOUT 05/05/2018 BLANCHO DPM, SANJUANA Hess Ot K44.9 DIAPHRAGMATIC HERNIA WITHOUT OBSTRUCTION 05/05/2018 ALENCHO DPEmmanuel, SANJUANA Hess Ot S82.52XA DISP FX OF MEDIAL MALLEOLUS OF LEFT TIBI 05/05/2018 TYLERHO DPEmmanuel, SANJUANA Hess Ot Z79.4 ASSISTED (CURRENT) USE OF INSULIN 05/06/2018 TAPAN DUVALL MD Ot E11.621 TYPE 2 DIABETES MELLITUS WITH FOOT ULCER 05/06/2018 TAPAN DUVALL MD Ot 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 10 ATHSCL HEART DISEASE OF [place] CORONARY 05/12/2018 JULIETTE GOMEZ MD Ot I65. 29 OCCLUSION AND STENOSIS OF UNSPECIFIED CA 05/12/2018 JULIETTE GOMEZ MD Ot J44. 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 05/13/2018 DINORA GREEN N Ot E78.2 MIXED HYPERLIPIDEMIA 05/13/2018 DINORA GREEN N Ot G47.33 OBSTRUCTIVE SLEEP APNEA (ADULT) (PEDIATR 05/13/2018 DINORA GREEN N Ot 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 CHRONIC KIDNEY DISEASE W ST 05/13/2018 DINORA GREEN N Ot I25.10 ATHSCL HEART DISEASE OF [place] CORONARY 05/13/2018 DINORA GREEN N Ot I27.20 [...] NODULE 05/13/2018 NORMADINORA REYES Casi Aguilera Z79.4 TRANSMISSION BUILDER (CURRENT) USE OF INSULIN 05/13/2018 NORMADINORA REYES Casi Ot Z79.82 ASSISTED (CURRENT) USE OF ASPIRIN 05/13/2018 NORMADINORA REYES Casi Aguilera Z79.899 OTHER ASSISTED (CURRENT) DRUG THERAPY 05/14/2018 ARABELLA AGUILERA DO, Ot Z01.818 ENCOUNTER FOR OTHER PREPROCEDURAL EXAMIN 05/18/2018 JULIETTE GOMEZ MD, Ot E78. 2 MIXED HYPERLIPIDEMIA 05/18/2018 JULIETTE GOMEZ MD, Ot I10 ESSENTIAL (PRIMARY) HYPERTENSION 05/18/2018 JULIETTE GOMEZ MD, Ot I25. 10 ATHSCL HEART DISEASE OF [place] CORONARY 05/18/2018 JULIETTE GOMEZ MD, Ot I65. 29 OCCLUSION AND STENOSIS OF UNSPECIFIED [place] 05/18/2018 JULIETTE GOMEZ MD, Ot J44. 9 CHRONIC OBSTRUCTIVE PULMONARY DISEASE, U 05/19/2018 TAPAN DUVALL MD, Ot E11.621 TYPE 2 DIABETES MELLITUS WITH FOOT ULCER 05/19/2018 TAPAN DUVALL MD, Ot E11.622 TYPE 2 DIABETES MELLITUS WITH OTHER SKIN 05/19/2018 TAPAN DUVALL MD, Ot 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 05/21/2018 ARABELLA AGUILERA DO, Ot E11.52 TYPE [...] DO Ot I25.119 ATHSCL HEART DISEASE OF [place] COR ART W 05/21/2018 ARABELLA AGUILERA DO, [...] UNSPECIFIED 05/21/2018 ARABELLA AGUILERA DO, Ot Z79.4 TRANSMISSION BUILDER (CURRENT) USE OF INSULIN 05/21/2018 ARABELLA AGUILERA [...] 05/28/2018 LINDA MCKEON MD Ot Z79.0 1 ASSISTED (CURRENT) USE OF ANTICOAGULANT 05/28/2018 LINDA MCKEON [...] LINDA MCKEON MD E Ot Z79.0 1 TRANSMISSION BUILDER (CURRENT) USE OF ANTICOAGULANT 05/29/2018 LINDA MCKEON [...] 05/29/2018 LINDA MCKEON MD Ot Z79.0 1 TRANSMISSION BUILDER (CURRENT) USE OF ANTICOAGULANT 05/29/2018 LINDA MCKEON [...] 06/01/2018 TAPAN DUVALL MD, Ot 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 [...] 22 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 06/05/2018 SUHA TAYLOR MD Ot E11. 51 [...] Ot I25. 10 ATHSCL HEART DISEASE OF [place] CORONARY 06/05/2018 SUHA TAYLOR MD Ot I73. [...] 06/05/2018 SUHA TAYLOR MD Ot Z79. 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 06/10/2018 TAPAN DUVALL MD Ot 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, UNSTAGEABLE 06/10/2018 TAPAN DUVALL MD, Ot L97.222 NON-PRESSURE CHRONIC ULCER OF LEFT CALF 06/10/2018 TAPAN DUVALL MD, Ot 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 06/10/2018 TAPAN DUVALL MD, Ot 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, LEFT ANKLE AND FOOT 06/25/2018 MIRTA TORRES CARDIOLOGY TECHNOLOGIST Ot E11.621 TYPE 2 DIABETES MELLITUS WITH FOOT ULCER 06/25/2018 MIRTA TORRES CARDIOLOGY TECHNOLOGIST Ot E11.622 TYPE 2 DIABETES MELLITUS WITH OTHER SKIN 06/25/2018 MIRTA TORRES CARDIOLOGY TECHNOLOGIST Ot 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 06/25/2018 MIRTA TORRES CARDIOLOGY TECHNOLOGIST Ot 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, UNSTAGEABLE 06/25/2018 MIRTA TORRES CARDIOLOGY TECHNOLOGIST Ot L97.222 NON-PRESSURE CHRONIC ULCER OF LEFT CALF 06/25/2018 MIRTA TORRES CARDIOLOGY TECHNOLOGIST Ot 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 06/25/2018 MIRTA TORRES CARDIOLOGY TECHNOLOGIST Ot 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, LEFT ANKLE AND FOOT 06/25/2018 DINORA GREEN Ot D50.9 IRON DEFICIENCY ANEMIA, UNSPECIFIED 06/25/2018 DINORA GREEN N Ot D63.1 ANEMIA IN CHRONIC KIDNEY DISEASE 06/25/2018 DINORA GREEN Ot E03.9 HYPOTHYROIDISM, UNSPECIFIED 06/25/2018 DINORA GREEN N Ot 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 06/25/2018 DINORA GREEN N Ot E78.2 MIXED HYPERLIPIDEMIA 06/25/2018 DINORA GREEN N Ot G47.33 OBSTRUCTIVE SLEEP APNEA (ADULT) (PEDIATR 06/25/2018 DINORA GREEN N Ot 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 CHRONIC KIDNEY DISEASE W ST 06/25/2018 DINORA GREEN N Ot I25.10 ATHSCL HEART DISEASE OF [place] CORONARY 06/25/2018 DINORA GREEN Ot I27.20 PULMONARY HYPERTENSION, UNSPECIFIED 06/25/2018 DINORA GREEN Ot I73.9 PERIPHERAL VASCULAR DISEASE, UNSPECIFIED 06/25/2018 DINORA GREEN Ot J44.9 CHRONIC OBSTRUCTIVE PULMONARY DISEASE, U 06/25/2018 DINORA GREEN Ot M19.91 PRIMARY OSTEOARTHRITIS, UNSPECIFIED SITE 06/25/2018 DINORA GREEN Ot N18.4 CHRONIC KIDNEY DISEASE, STAGE 4 (SEVERE) 06/25/2018 DINORA GREEN Ot R91.1 SOLITARY PULMONARY NODULE 06/25/2018 DINORA GREEN Ot Z79.4 TRANSMISSION BUILDER (CURRENT) USE OF INSULIN 06/25/2018 DINORA GREEN Ot Z79.82 TRANSMISSION BUILDER (CURRENT) USE OF ASPIRIN 06/25/2018 DINORA GREEN Ot Z79.899 OTHER ASSISTED (CURRENT) DRUG THERAPY 07/01/2018 MIRTA TORRES CARDIOLOGY TECHNOLOGIST Ot E11.621 TYPE 2 DIABETES MELLITUS WITH FOOT ULCER 07/01/2018 MIRTA TORRES APRN Ot E11.622 TYPE 2 DIABETES MELLITUS WITH OTHER SKIN 07/01/2018 MIRTA TORRES CARDIOLOGY TECHNOLOGIST Ot 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 07/01/2018 MIRTA TORRES CARDIOLOGY TECHNOLOGIST Ot 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, UNSTAGEABLE 07/01/2018 MIRTA TORRES CARDIOLOGY TECHNOLOGIST Ot L97.222 NON-PRESSURE CHRONIC ULCER OF LEFT CALF 07/01/2018 MIRTA TORRES CARDIOLOGY TECHNOLOGIST Ot 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 07/01/2018 MIRTA TORRES CARDIOLOGY TECHNOLOGIST Ot 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, LEFT ANKLE AND FOOT 07/07/2018 DINORA GREEN N Ot D50.9 IRON DEFICIENCY ANEMIA, UNSPECIFIED 07/07/2018 DINORA GREEN N Ot D63.1 ANEMIA IN CHRONIC KIDNEY DISEASE 07/07/2018 DINORA GREEN Ot E03.9 HYPOTHYROIDISM, UNSPECIFIED 07/07/2018 DINORA GREEN N Ot 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 07/07/2018 DINORA GREEN N Ot E78.2 MIXED HYPERLIPIDEMIA 07/07/2018 DINORA GREEN N Ot G47.33 OBSTRUCTIVE SLEEP APNEA (ADULT) (PEDIATR 07/07/2018 DINORA GREEN N Ot 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 CHRONIC KIDNEY DISEASE W ST 07/07/2018 DINROA GREEN Casi Ot I25.10 ATHSCL HEART DISEASE OF [place] CORONARY 07/07/2018 DINORA GREEN Casi Ot I27.20 [...] NODULE 07/07/2018 DINORA GREEN Casi Ot Z79.4 ASSISTED (CURRENT) USE OF INSULIN 07/07/2018 NORMA, JOSIERACHELLE Casi Ot Z79.82 ASSISTED (CURRENT) USE OF ASPIRIN 07/07/2018 NORMADINORA REYES Casi Ot Z79.899 OTHER ASSISTED (CURRENT) DRUG THERAPY 07/08/2018 DIETER LOVE APRN Ot D64 .9 ANEMIA, UNSPECIFIED 07/08/2018 DIETER LOVE APRN Ot 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 07/08/2018 DIETER LOVE APRN Ot E87 .1 [...] APRN Ot I25.10 ATHSCL HEART DISEASE OF [place] CORONARY 07/08/2018 DIETER LOVE APRN Ot K21 .9 GASTRO-ESOPHAGEAL REFLUX DISEASE WITHOUT 07/08/2018 DIETER LOVE APRN Ot N18 .9 CHRONIC KIDNEY DISEASE, UNSPECIFIED 07/08/2018 DIETER LOVE APRN Ot N39 .0 URINARY TRACT INFECTION, SITE NOT SPECIF 07/08/2018 DIETER LOVE APRN Ot R25 .1 TREMOR, UNSPECIFIED 07/08/2018 DIETER LOVE APRN Ot Z79 .4 TRANSMISSION BUILDER (CURRENT) USE OF INSULIN 07/08/2018 DIETER LOVE APRN Ot Z79.51 TRANSMISSION BUILDER (CURRENT) USE OF INHALED STERO 07/08/2018 DIETER 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 07/25/2018 DINORA GREEN Ot E78.2 MIXED HYPERLIPIDEMIA 07/25/2018 DINORA GREEN Ot G47.33 OBSTRUCTIVE SLEEP APNEA (ADULT) (PEDIATR 07/25/2018 DINORA GREEN Ot 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 CHRONIC KIDNEY DISEASE W ST 07/25/2018 DINORA GREEN Ot I25.10 ATHSCL HEART DISEASE OF [place] CORONARY 07/25/2018 DINORA GREEN Ot I27.20 PULMONARY [...] NODULE 07/25/2018 DINORA GREEN N Ot Z79.4 ASSISTED (CURRENT) USE OF INSULIN 07/25/2018 JOSIE GREENAN N Ot Z79.82 ASSISTED (CURRENT) USE OF ASPIRIN 07/25/2018 DINORA GREEN N Ot Z79.899 OTHER ASSISTED (CURRENT) DRUG THERAPY 07/27/2018 DINORA GREEN N Ot D50.9 IRON DEFICIENCY ANEMIA, UNSPECIFIED 07/27/2018 DINORA GREEN N Ot D63.1 ANEMIA IN CHRONIC KIDNEY DISEASE 07/27/2018 DINORA GREEN N Ot E03.9 HYPOTHYROIDISM, UNSPECIFIED 07/27/2018 DINORA GREEN N Ot 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 07/27/2018 DINORA GREEN N Ot E78.2 MIXED HYPERLIPIDEMIA 07/27/2018 DINORA GREEN N Ot G47.33 OBSTRUCTIVE SLEEP APNEA (ADULT) (PEDIATR 07/27/2018 DINORA GREEN N Ot 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 CHRONIC KIDNEY DISEASE W ST 07/27/2018 DINORA GREEN N Ot I25.10 ATHSCL HEART DISEASE OF [place] CORONARY 07/27/2018 DINORA GREEN N Ot I27.20 [...] NODULE 07/27/2018 DINORA GREEN N Ot Z79.4 TRANSMISSION BUILDER (CURRENT) USE OF INSULIN 07/27/2018 DINORA GREEN Ot Z79.82 ASSISTED (CURRENT) USE OF ASPIRIN 07/27/2018 DINORA GREEN Ot Z79.899 OTHER TRANSMISSION BUILDER (CURRENT) DRUG THERAPY 07/27/2018 ALE DO, ARABELLA [...] Ot D50.9 IRON DEFICIENCY ANEMIA, UNSPECIFIED 07/30/2018 DIONRA GREEN Ot D63.1 ANEMIA IN CHRONIC KIDNEY DISEASE 07/30/2018 DINORA GREEN Ot E03.9 HYPOTHYROIDISM, UNSPECIFIED 07/30/2018 DINORA GREEN Ot 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 07/30/2018 DINORA GREEN Ot E78.2 MIXED HYPERLIPIDEMIA 07/30/2018 DINORA GREEN Ot G47.33 OBSTRUCTIVE SLEEP APNEA (ADULT) (PEDIATR 07/30/2018 DINORA GREEN Ot 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 CHRONIC KIDNEY DISEASE W ST 07/30/2018 DINORA GREEN Ot I25.10 ATHSCL HEART DISEASE OF [place] CORONARY 07/30/2018 DINORA GREEN Ot I27.20 PULMONARY [...] PULMONARY NODULE 07/30/2018 DINORA GREEN Ot Z79.4 TRANSMISSION BUILDER (CURRENT) USE OF INSULIN 07/30/2018 DINORA GREEN Ot Z79.82 ASSISTED (CURRENT) USE OF ASPIRIN 07/30/2018 DINORA GREEN Ot Z79.899 OTHER ASSISTED (CURRENT) DRUG THERAPY 08/05/2018 DINORA GREEN Ot D50.9 IRON DEFICIENCY ANEMIA, UNSPECIFIED 08/05/2018 DINORA GREEN Ot D63.1 ANEMIA IN CHRONIC KIDNEY DISEASE 08/05/2018 DINORA GREEN Ot E03.9 HYPOTHYROIDISM, UNSPECIFIED 08/05/2018 DINORA GREEN Ot 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 08/05/2018 DINORA GREEN Ot E78.2 MIXED HYPERLIPIDEMIA 08/05/2018 DINORA GREEN Ot G47.33 OBSTRUCTIVE SLEEP APNEA (ADULT) (PEDIATR 08/05/2018 DINORA GREEN Ot 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 CHRONIC KIDNEY DISEASE W ST 08/05/2018 DINORA GREEN Ot I25.10 ATHSCL HEART DISEASE OF [place] CORONARY 08/05/2018 DINORA GREEN Ot I27.20 PULMONARY HYPERTENSION, UNSPECIFIED 08/05/2018 DINORA GEREN Ot I73.9 PERIPHERAL VASCULAR DISEASE, UNSPECIFIED 08/05/2018 DINORA GREEN Ot J44.9 CHRONIC OBSTRUCTIVE PULMONARY DISEASE, U 08/05/2018 DINORA GREEN Ot M19.91 PRIMARY OSTEOARTHRITIS, UNSPECIFIED SITE 08/05/2018 DINORA GREEN Ot N18.4 CHRONIC KIDNEY DISEASE, STAGE 4 (SEVERE) 08/05/2018 DINORA GREEN Ot R91.1 SOLITARY PULMONARY NODULE 08/05/2018 DINORA GREEN Ot Z79.4 ASSISTED (CURRENT) USE OF INSULIN 08/05/2018 DINORA GREEN Ot Z79.82 ASSISTED (CURRENT) USE OF ASPIRIN 08/05/2018 DINORA GREEN Ot Z79.899 OTHER TRANSMISSION BUILDER (CURRENT) DRUG THERAPY 08/18/2018 ARABELLA AGUILERA DO 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 09/18/2018 DINORA GREEN Ot E78.2 MIXED HYPERLIPIDEMIA 09/18/2018 DINORA GREEN Ot G47.33 OBSTRUCTIVE SLEEP APNEA (ADULT) (PEDIATR 09/18/2018 DINORA GREEN Ot 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 CHRONIC KIDNEY DISEASE W ST 09/18/2018 DINORA GREEN Ot I25.10 ATHSCL HEART DISEASE OF [place] CORONARY 09/18/2018 DINORA GREEN Ot I27.20 PULMONARY HYPERTENSION, UNSPECIFIED 09/18/2018 DINORA GREEN Ot I73.9 PERIPHERAL VASCULAR DISEASE, UNSPECIFIED 09/18/2018 DINORA GREEN Ot J44.9 CHRONIC OBSTRUCTIVE PULMONARY DISEASE, U 09/18/2018 DINORA GREEN Ot M19.91 PRIMARY OSTEOARTHRITIS, UNSPECIFIED SITE 09/18/2018 DINORA GREEN Ot N18.4 CHRONIC KIDNEY DISEASE, STAGE 4 (SEVERE) 09/18/2018 DINORA GREEN Ot R91.1 SOLITARY PULMONARY NODULE 09/18/2018 DINORA GREEN Ot Z79.4 TRANSMISSION BUILDER (CURRENT) USE OF INSULIN 09/18/2018 DINORA GREEN Ot Z79.82 TRANSMISSION BUILDER (CURRENT) USE OF ASPIRIN 09/18/2018 DINORA GREEN Ot Z79.899 OTHER TRANSMISSION BUILDER (CURRENT) DRUG THERAPY 09/21/2018 ALE DOARABELLA Ot 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 11/02/2018 DINORA GREEN Ot E78.2 MIXED HYPERLIPIDEMIA 11/02/2018 DINORA GREEN Ot G47.33 OBSTRUCTIVE SLEEP APNEA (ADULT) (PEDIATR 11/02/2018 DINORA GREEN Ot 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 CHRONIC KIDNEY DISEASE W ST 11/02/2018 DINORA GREEN Ot I25.10 ATHSCL HEART DISEASE OF [place] CORONARY 11/02/2018 DINORA GREEN Ot I27.20 PULMONARY HYPERTENSION, UNSPECIFIED 11/02/2018 DINORA GREEN Ot I73.9 PERIPHERAL VASCULAR DISEASE, UNSPECIFIED 11/02/2018 DINORA GREEN Ot J44.9 CHRONIC OBSTRUCTIVE PULMONARY DISEASE, U 11/02/2018 DINORA GREEN Ot M19.91 PRIMARY OSTEOARTHRITIS, UNSPECIFIED SITE 11/02/2018 DINORA GREEN Ot N18.4 CHRONIC KIDNEY DISEASE, STAGE 4 (SEVERE) 11/02/2018 DINORA GEREN Ot R91.1 SOLITARY PULMONARY NODULE 11/02/2018 DINORA GREEN Ot Z79.4 TRANSMISSION BUILDER (CURRENT) USE OF INSULIN 11/02/2018 DINORA GREEN Ot Z79.82 ASSISTED (CURRENT) USE OF ASPIRIN 11/02/2018 DINORA GREEN Ot Z79.899 OTHER TRANSMISSION BUILDER (CURRENT) DRUG THERAPY 11/08/2018 DINORA GREEN Ot D50.9 IRON DEFICIENCY ANEMIA, UNSPECIFIED 11/08/2018 DINORA GREEN N Ot D63.1 ANEMIA IN CHRONIC KIDNEY DISEASE 11/08/2018 DINORA GREEN Ot E03.9 HYPOTHYROIDISM, UNSPECIFIED 11/08/2018 DINORA GREEN N Ot 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 11/08/2018 DINORA GREEN N Ot E78.2 MIXED HYPERLIPIDEMIA 11/08/2018 DINORA GREEN N Ot G47.33 OBSTRUCTIVE SLEEP APNEA (ADULT) (PEDIATR 11/08/2018 DINORA GREEN N Ot 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 CHRONIC KIDNEY DISEASE W ST 11/08/2018 DINORA GREEN N Ot I25.10 ATHSCL HEART DISEASE OF [place] CORONARY 11/08/2018 DINORA GREEN Ot I27.20 PULMONARY [...] NODULE 11/08/2018 DINORA GREEN N Ot Z79.4 TRANSMISSION BUILDER (CURRENT) USE OF INSULIN 11/08/2018 DINORA GREEN N Ot Z79.82 TRANSMISSION BUILDER (CURRENT) USE OF ASPIRIN 11/08/2018 DINORA GREEN Ot Z79.899 OTHER ASSISTED (CURRENT) DRUG THERAPY 11/17/2018 DINORA GREEN N Ot D50.9 IRON DEFICIENCY ANEMIA, UNSPECIFIED 11/17/2018 DINORA GREEN N Ot D63.1 ANEMIA IN CHRONIC KIDNEY DISEASE 11/17/2018 DINORA GREEN Ot E03.9 HYPOTHYROIDISM, UNSPECIFIED 11/17/2018 DINORA GREEN N Ot 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 11/17/2018 DINORA GREEN N Ot E78.2 MIXED HYPERLIPIDEMIA 11/17/2018 DINORA GREEN N Ot G47.33 OBSTRUCTIVE SLEEP APNEA (ADULT) (PEDIATR 11/17/2018 DINORA GREEN N Ot 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 CHRONIC KIDNEY DISEASE W ST 11/17/2018 DINORA GREEN Ot I25.10 ATHSCL HEART DISEASE OF [place] CORONARY 11/17/2018 DINORA GREEN Ot I27.20 PULMONARY HYPERTENSION, UNSPECIFIED 11/17/2018 DINORA GREEN Ot I73.9 PERIPHERAL VASCULAR DISEASE, UNSPECIFIED 11/17/2018 DINORA GREEN Ot J44.9 CHRONIC OBSTRUCTIVE PULMONARY DISEASE, U 11/17/2018 DINORA GREEN Ot M19.91 PRIMARY OSTEOARTHRITIS, UNSPECIFIED SITE 11/17/2018 DINORA GREEN Ot N18.4 CHRONIC KIDNEY DISEASE, STAGE 4 (SEVERE) 11/17/2018 DINORA GREEN Ot R91.1 SOLITARY PULMONARY NODULE 11/17/2018 DINORA GREEN Ot Z79.4 ASSISTED (CURRENT) USE OF INSULIN 11/17/2018 DINORA GREEN Ot Z79.82 TRANSMISSION BUILDER (CURRENT) USE OF ASPIRIN 11/17/2018 DINORA GREEN Ot Z79.899 OTHER ASSISTED (CURRENT) DRUG THERAPY 11/18/2018 DINORA GREEN Ot D50.9 IRON DEFICIENCY ANEMIA, UNSPECIFIED 11/18/2018 DINORA GREEN N Ot D63.1 ANEMIA IN CHRONIC KIDNEY DISEASE 11/18/2018 DINORA GREEN Ot E03.9 HYPOTHYROIDISM, UNSPECIFIED 11/18/2018 DINORA GREEN N Ot 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 11/18/2018 DINORA GREEN Ot E78.2 MIXED HYPERLIPIDEMIA 11/18/2018 DINORA GREEN Ot G47.33 OBSTRUCTIVE SLEEP APNEA (ADULT) (PEDIATR 11/18/2018 DINORA GREEN Ot 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 CHRONIC KIDNEY DISEASE W ST 11/18/2018 DINORA GREEN Ot I25.10 ATHSCL HEART DISEASE OF [place] CORONARY 11/18/2018 DINORA GREEN Ot I27.20 PULMONARY HYPERTENSION, UNSPECIFIED 11/18/2018 DINORA GREEN Ot I73.9 PERIPHERAL VASCULAR DISEASE, UNSPECIFIED 11/18/2018 DINORA GREEN Ot J44.9 CHRONIC OBSTRUCTIVE PULMONARY DISEASE, U 11/18/2018 DINORA GREEN Ot M19.91 PRIMARY OSTEOARTHRITIS, UNSPECIFIED SITE 11/18/2018 DINORA GREEN Ot N18.4 CHRONIC KIDNEY DISEASE, STAGE 4 (SEVERE) 11/18/2018 DINORA GREEN N Ot R91.1 SOLITARY PULMONARY NODULE 11/18/2018 DINORA GREEN Ot Z79.4 ASSISTED (CURRENT) USE OF INSULIN 11/18/2018 DINORA GREEN N Ot Z79.82 TRANSMISSION BUILDER (CURRENT) USE OF ASPIRIN 11/18/2018 DINORA GREEN N Ot Z79.899 OTHER ASSISTED (CURRENT) DRUG THERAPY 12/15/2018 GALA TY, FELICITA Borges Ot E11.9 TYPE 2 DIABETES MELLITUS WITHOUT COMPLIC 12/25/2018 DINORA GREEN N Ot D50.9 IRON DEFICIENCY ANEMIA, UNSPECIFIED 12/25/2018 DINORA GREEN Ot D63.1 ANEMIA IN CHRONIC KIDNEY DISEASE 12/25/2018 DINORA GREEN Ot E03.9 HYPOTHYROIDISM, UNSPECIFIED 12/25/2018 DINORA GREEN N Ot 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 12/25/2018 DINORA GREEN Ot E78.2 MIXED HYPERLIPIDEMIA 12/25/2018 DINORA GREEN N Ot G47.33 OBSTRUCTIVE SLEEP APNEA (ADULT) (PEDIATR 12/25/2018 DINORA GREEN N Ot 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 CHRONIC KIDNEY DISEASE W ST 12/25/2018 DINORA GREEN N Ot I25.10 ATHSCL HEART DISEASE OF [place] CORONARY 12/25/2018 DINORA GREEN N Ot I27.20 [...] NODULE 12/25/2018 DINORA GREEN N Ot Z79.4 TRANSMISSION BUILDER (CURRENT) USE OF INSULIN 12/25/2018 DINORA GREEN N Ot Z79.82 ASSISTED (CURRENT) USE OF ASPIRIN 12/25/2018 DINORA GREEN N Ot Z79.899 OTHER ASSISTED (CURRENT) DRUG THERAPY 12/28/2018 DORINDA, MARIELLE L CARDIOLOGY TECHNOLOGIST Ot E03.9 HYPOTHYROIDISM, UNSPECIFIED 12/28/2018 DORINDA, MARIELLE L CARDIOLOGY TECHNOLOGIST Ot E11.8 TYPE 2 DIABETES MELLITUS WITH UNSPECIFIE 12/28/2018 DORINDA, MARIELLE L CARDIOLOGY TECHNOLOGIST Ot Z79.4 TRANSMISSION BUILDER (CURRENT) USE OF INSULIN 01/01/2019 FELICITA CEDEÑO MD Ot E11.9 TYPE 2 DIABETES MELLITUS WITHOUT COMPLIC 01/18/2019 DORINDA MARIELLE L CARDIOLOGY TECHNOLOGIST Ot E03.9 HYPOTHYROIDISM, UNSPECIFIED 01/18/2019 DORINDA, MARIELLE L CARDIOLOGY TECHNOLOGIST Ot E11.8 TYPE 2 DIABETES MELLITUS WITH UNSPECIFIE 01/18/2019 DORINDA, MARIELLE L CARDIOLOGY TECHNOLOGIST Ot Z79.4 TRANSMISSION BUILDER (CURRENT) USE OF INSULIN 02/04/2019 DINORA GREEN N Ot D50.9 IRON DEFICIENCY ANEMIA, UNSPECIFIED 02/04/2019 DINORA GREEN N Ot D63.1 ANEMIA IN CHRONIC KIDNEY DISEASE 02/04/2019 DINORA GREEN N Ot E03.9 HYPOTHYROIDISM, UNSPECIFIED 02/04/2019 DINORA GREEN N Ot 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 02/04/2019 DINORA GREEN N Ot E78.2 MIXED HYPERLIPIDEMIA 02/04/2019 DINORA GREEN N Ot G47.33 OBSTRUCTIVE SLEEP APNEA (ADULT) (PEDIATR 02/04/2019 DINORA GREEN N Ot 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 CHRONIC KIDNEY DISEASE W ST 02/04/2019 DINORA GREEN N Ot I25.10 ATHSCL HEART DISEASE OF [place] CORONARY 02/04/2019 DINORA GREEN N Ot I27.20 [...] NODULE 02/04/2019 DINORA GREEN N Ot Z79.4 ASSISTED (CURRENT) USE OF INSULIN 02/04/2019 DINORA GREEN N Ot Z79.82 TRANSMISSION BUILDER (CURRENT) USE OF ASPIRIN 02/04/2019 DINORA GREEN N Ot Z79.899 OTHER TRANSMISSION BUILDER (CURRENT) DRUG THERAPY 02/15/2019 DINORA GREEN N Ot D50.9 IRON DEFICIENCY ANEMIA, UNSPECIFIED 02/15/2019 DINORA GREEN N Ot D63.1 ANEMIA IN CHRONIC KIDNEY DISEASE 02/15/2019 DINORA GREEN N Ot E03.9 HYPOTHYROIDISM, UNSPECIFIED 02/15/2019 DINORA GREEN N Ot 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 02/15/2019 DINORA GREEN N Ot E78.2 MIXED HYPERLIPIDEMIA 02/15/2019 DINORA GREEN N Ot G47.33 OBSTRUCTIVE SLEEP APNEA (ADULT) (PEDIATR 02/15/2019 DINORA GREEN N Ot 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 CHRONIC KIDNEY DISEASE W ST 02/15/2019 DINORA GREEN N Ot I25.10 ATHSCL HEART DISEASE OF [place] CORONARY 02/15/2019 DINORA GREEN N Ot I27.20 [...] PULMONARY NODULE 02/15/2019 DINORA GREEN Ot Z79.4 ASSISTED (CURRENT) USE OF INSULIN 02/15/2019 DINORA GREEN N Ot Z79.82 TRANSMISSION BUILDER (CURRENT) USE OF ASPIRIN 02/15/2019 DINORA GREEN N Ot Z79.899 OTHER ASSISTED (CURRENT) DRUG THERAPY 02/16/2019 DINORA GREEN N Ot D50.9 IRON DEFICIENCY ANEMIA, UNSPECIFIED 02/16/2019 DINORA GREEN N Ot D63.1 ANEMIA IN CHRONIC KIDNEY DISEASE 02/16/2019 DINORA GREEN N Ot E03.9 HYPOTHYROIDISM, UNSPECIFIED 02/16/2019 DINORA GREEN N Ot 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 02/16/2019 NORMA JOSIERACHELLE Casi Ot E78.2 MIXED HYPERLIPIDEMIA 02/16/2019 NORMADINORA Ot G47.33 OBSTRUCTIVE SLEEP APNEA (ADULT) (PEDIATR 02/16/2019 NORMA JOSIERACHELLE Casi Ot 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 CHRONIC KIDNEY DISEASE W ST 02/16/2019 NORMA DINORA Lance Ot I25.10 ATHSCL HEART DISEASE OF [place] CORONARY 02/16/2019 NORMADINORA Ot I27.20 PULMONARY HYPERTENSION, UNSPECIFIED 02/16/2019 NORMADINORA N Ot I73.9 PERIPHERAL VASCULAR DISEASE, UNSPECIFIED 02/16/2019 NORMADINORA Ot J44.9 CHRONIC OBSTRUCTIVE PULMONARY DISEASE, U 02/16/2019 NORMADINORA Ot M19.91 PRIMARY OSTEOARTHRITIS, UNSPECIFIED SITE 02/16/2019 NORMAJOSIERACHELLE Casi Ot N18.4 CHRONIC KIDNEY DISEASE, STAGE 4 (SEVERE) 02/16/2019 NORMADINORA Ot R91.1 SOLITARY PULMONARY NODULE 02/16/2019 NORMAJOSIERACHELLE Casi Ot Z79.4 ASSISTED (CURRENT) USE OF INSULIN 02/16/2019 NORMADINORA N Ot Z79.82 ASSISTED (CURRENT) USE OF ASPIRIN 02/16/2019 NORMADINORA Ot Z79.899 OTHER ASSISTED (CURRENT) DRUG THERAPY 03/29/2019 MIRTA TORRES APRN Ot M19.031 PRIMARY OSTEOARTHRITIS, RIGHT WRIST 03/29/2019 MIRTA TORRES APRN Ot M21.931 UNSPECIFIED ACQUIRED DEFORMITY OF RIGHT 03/29/2019 MIRTA TORRES APRN Ot M89.8X8 OTHER SPECIFIED DISORDERS OF BONE, OTHER 03/29/2019 MIRTA TORRES APRN Ot W19.XXXA UNSPECIFIED FALL, INITIAL ENCOUNTER 03/29/2019 MIRTA TORRES APRN Ot Y92.[address] IN [place] NON-INSTITUT (PRIVATE 04/02/2019 OTIS TY, MARCIA Garza [...] Ot I25. 10 ATHSCL HEART DISEASE OF [place] CORONARY 04/02/2019 OTIS TY, MARCIA Garza Ot K21. 9 GASTRO-ESOPHAGEAL REFLUX DISEASE WITHOUT 04/02/2019 OTIS TY, MARCIA Garza Ot M19.071 PRIMARY OSTEOARTHRITIS, RIGHT ANKLE AND 04/02/2019 OTIS TY, MARCIA Garza Ot M25.571 PAIN IN RIGHT ANKLE AND JOINTS OF RIGHT 04/02/2019 OTIS TY, MARCIA Garza Ot Z79. 4 TRANSMISSION BUILDER (CURRENT) USE OF INSULIN 04/02/2019 OTIS TY, [...] 9 ANXIETY DISORDER, UNSPECIFIED 04/06/2019 OTIS TY, MARICA Garza Ot G47. 30 SLEEP APNEA, UNSPECIFIED 04/06/2019 OTIS TY, MARCIA Garza Ot I10 ESSENTIAL (PRIMARY) HYPERTENSION 04/06/2019 OTIS TY, MARCIA Garza Ot I25. 10 ATHSCL HEART DISEASE OF [place] CORONARY 04/06/2019 OTIS TY, MARCIA Garza Ot K21. 9 GASTRO-ESOPHAGEAL REFLUX DISEASE WITHOUT 04/06/2019 OTIS TY, MARCIA Garza Ot M19.071 PRIMARY OSTEOARTHRITIS, RIGHT ANKLE AND 04/06/2019 OTIS TY, MARCIA Garza Ot M25.571 PAIN IN RIGHT ANKLE AND JOINTS OF RIGHT 04/06/2019 OTIS TY, MARCIA Garza Ot Z79. 4 ASSISTED (CURRENT) USE OF INSULIN 04/06/2019 OTIS TY, [...] LEFT LEG BELOW KNEE 04/06/2019 OTIS TY, MARCIA Garza Ot Z90. 49 ACQUIRED ABSENCE OF OTHER SPECIFIED PART 04/06/2019 MARCIA BERG MD Ot Z90.710 ACQUIRED ABSENCE OF BOTH CERVIX AND UTER 04/06/2019 OTIS TY, MARCIA Garza Ot Z96.6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, BILAT 04/06/2019 OTIS TY, MARCIA Garza Ot Z99. 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 04/06/2019 DINORA GREEN N Ot E78.2 MIXED HYPERLIPIDEMIA 04/06/2019 DINORA GREEN N Ot G47.33 OBSTRUCTIVE SLEEP APNEA (ADULT) (PEDIATR 04/06/2019 DINORA GREEN N Ot 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 CHRONIC KIDNEY DISEASE W ST 04/06/2019 DINORA GREEN N Ot I25.10 ATHSCL HEART DISEASE OF [place] CORONARY 04/06/2019 DINORA GREEN N Ot I27.20 [...] NODULE 04/06/2019 DINORA GREEN N Ot Z79.4 ASSISTED (CURRENT) USE OF INSULIN 04/06/2019 DINORA GREEN N Ot Z79.82 TRANSMISSION BUILDER (CURRENT) USE OF ASPIRIN 04/06/2019 DINORA GREEN N Ot Z79.899 OTHER TRANSMISSION BUILDER (CURRENT) DRUG THERAPY 04/07/2019 GALA TY, FELICITA [...] Ot I25. 10 ATHSCL HEART DISEASE OF [place] CORONARY 04/08/2019 MARCIA BERG MD Ot K21. 9 GASTRO-ESOPHAGEAL REFLUX DISEASE WITHOUT 04/08/2019 MARCIA BERG MD Ot M19.071 PRIMARY OSTEOARTHRITIS, RIGHT ANKLE AND 04/08/2019 MARCIA BERG MD Ot M25.571 PAIN IN RIGHT ANKLE AND JOINTS OF RIGHT 04/08/2019 MARCIA BERG MD Ot Z79. 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 04/12/2019 DINORA GREEN Ot E78.2 MIXED HYPERLIPIDEMIA 04/12/2019 DINORA GREEN Ot G47.33 OBSTRUCTIVE SLEEP APNEA (ADULT) (PEDIATR 04/12/2019 NORMA JOSIERACHELLE Casi Ot 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 CHRONIC KIDNEY DISEASE W ST 04/12/2019 DINORA GREEN Casi Ot I25.10 ATHSCL HEART DISEASE OF [place] CORONARY 04/12/2019 NORMA JOSIERACHELLE Casi Ot I27.20 [...] PULMONARY NODULE 04/12/2019 NORMAJOSIERACHELLE Casi Ot Z79.4 ASSISTED (CURRENT) USE OF INSULIN 04/12/2019 NORMADINORA Ot Z79.82 ASSISTED (CURRENT) USE OF ASPIRIN 04/12/2019 NORMADINORA Ot Z79.899 OTHER ASSISTED (CURRENT) DRUG THERAPY 04/13/2019 DIONISIO BOWEN CARDIOLOGY TECHNOLOGIST Ot M79.604 PAIN IN RIGHT LEG 04/13/2019 DIONISIO BOWEN CARDIOLOGY TECHNOLOGIST Ot M79.89 OTHER SPECIFIED SOFT TISSUE DISORDERS 04/15/2019 MIRTA TORRES CARDIOLOGY TECHNOLOGIST Ot M19.031 PRIMARY OSTEOARTHRITIS, RIGHT WRIST 04/15/2019 MIRTA TORRES CARDIOLOGY TECHNOLOGIST Ot M21.931 UNSPECIFIED ACQUIRED DEFORMITY OF RIGHT 04/15/2019 MIRTA TORRES CARDIOLOGY TECHNOLOGIST Ot M89.8X8 OTHER SPECIFIED DISORDERS OF BONE, OTHER 04/15/2019 MIRTA TORRES CARDIOLOGY TECHNOLOGIST Ot W19.XXXA UNSPECIFIED FALL, INITIAL ENCOUNTER 04/15/2019 MIRTA TORRES [facility]N Ot Y92.[address] [facility] ([facility] 04/28/2019 DIONISIO BOWEN CARDIOLOGY TECHNOLOGIST Ot M79.604 PAIN IN RIGHT LEG 04/28/2019 DIONISIO BOWEN CARDIOLOGY TECHNOLOGIST Ot M79.89 OTHER SPECIFIED SOFT TISSUE DISORDERS 04/29/2019 FELICITA CEDEÑO MD Ot R05 COUGH 04/29/2019 FELICITA CEDEÑO MD Ot R53.1 WEAKNESS 05/17/2019 DINORA GREEN N Ot D50.9 IRON DEFICIENCY ANEMIA, UNSPECIFIED 05/17/2019 DINORA GREEN N Ot D63.1 ANEMIA IN CHRONIC KIDNEY DISEASE 05/17/2019 DINORA GREEN N Ot E03.9 HYPOTHYROIDISM, UNSPECIFIED 05/17/2019 DINORA GREEN N Ot 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 05/17/2019 DINORA GREEN N Ot E78.2 MIXED HYPERLIPIDEMIA 05/17/2019 DINORA GREEN N Ot G47.33 OBSTRUCTIVE SLEEP APNEA (ADULT) (PEDIATR 05/17/2019 DINORA GREEN N Ot 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 CHRONIC KIDNEY DISEASE W ST 05/17/2019 DINORA GREEN N Ot I25.10 ATHSCL HEART DISEASE OF [place] CORONARY 05/17/2019 DINORA GREEN N Ot I27.20 [...] NODULE 05/17/2019 DINORA GREEN N Ot Z79.4 ASSISTED (CURRENT) USE OF INSULIN 05/17/2019 DINORA GREEN N Ot Z79.82 ASSISTED (CURRENT) USE OF ASPIRIN 05/17/2019 DINORA GREEN N Ot Z79.899 OTHER ASSISTED (CURRENT) DRUG THERAPY 06/04/2019 DINORA GREEN N Ot D50.9 IRON DEFICIENCY ANEMIA, UNSPECIFIED 06/04/2019 DINORA GREEN N Ot D63.1 ANEMIA IN CHRONIC KIDNEY DISEASE 06/04/2019 DINORA GREEN N Ot E03.9 HYPOTHYROIDISM, UNSPECIFIED 06/04/2019 DINORA GREEN N Ot 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 06/04/2019 DINORA GREEN N Ot E78.2 MIXED HYPERLIPIDEMIA 06/04/2019 DINORA GREEN N Ot G47.33 OBSTRUCTIVE SLEEP APNEA (ADULT) (PEDIATR 06/04/2019 DINORA GREEN N Ot 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 CHRONIC KIDNEY DISEASE W ST 06/04/2019 DINORA GREEN Ot I25.10 ATHSCL HEART DISEASE OF [place] CORONARY 06/04/2019 DINORA GREEN N Ot I27.20 [...] NODULE 06/04/2019 DINORA GREEN N Ot Z79.4 ASSISTED (CURRENT) USE OF INSULIN 06/04/2019 DINORA GREEN N Ot Z79.82 ASSISTED (CURRENT) USE OF ASPIRIN 06/04/2019 DINORA GREEN N Ot Z79.899 OTHER TRANSMISSION BUILDER (CURRENT) DRUG THERAPY 06/22/2019 DINORA GREEN N Ot D50.9 IRON DEFICIENCY ANEMIA, UNSPECIFIED 06/22/2019 DINORA GREEN N Ot D63.1 ANEMIA IN CHRONIC KIDNEY DISEASE 06/22/2019 DINORA GREEN N Ot E03.9 HYPOTHYROIDISM, UNSPECIFIED 06/22/2019 DINORA GREEN N Ot 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 06/22/2019 DINORA GREEN N Ot E78.2 MIXED HYPERLIPIDEMIA 06/22/2019 DINORA GREEN N Ot G47.33 OBSTRUCTIVE SLEEP APNEA (ADULT) (PEDIATR 06/22/2019 DINORA GREEN N Ot 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 CHRONIC KIDNEY DISEASE W ST 06/22/2019 DINORA GREEN N Ot I25.10 ATHSCL HEART DISEASE OF [place] CORONARY 06/22/2019 DINORA GREEN N Ot I27.20 PULMONARY HYPERTENSION, UNSPECIFIED 06/22/2019 DINORA GREEN N Ot I73.9 PERIPHERAL VASCULAR DISEASE, UNSPECIFIED 06/22/2019 DINORA GREEN Ot J44.9 CHRONIC OBSTRUCTIVE PULMONARY DISEASE, U 06/22/2019 DINORA GREEN Ot M19.91 PRIMARY OSTEOARTHRITIS, UNSPECIFIED SITE 06/22/2019 DINORA GREEN Ot N18.4 CHRONIC KIDNEY DISEASE, STAGE 4 (SEVERE) 06/22/2019 DINORA GREEN Ot R91.1 SOLITARY PULMONARY NODULE 06/22/2019 DINORA GREEN Ot Z79.4 ASSISTED (CURRENT) USE OF INSULIN 06/22/2019 DINORA GREEN N Ot Z79.82 TRANSMISSION BUILDER (CURRENT) USE OF ASPIRIN 06/22/2019 DINORA GREEN Ot Z79.899 OTHER ASSISTED (CURRENT) DRUG THERAPY 08/23/2019 DINORA GREEN N Ot D50.9 IRON DEFICIENCY ANEMIA, UNSPECIFIED 08/23/2019 DINORA GREEN Ot D63.1 ANEMIA IN CHRONIC KIDNEY DISEASE 08/23/2019 DINORA GREEN Ot E03.9 HYPOTHYROIDISM, UNSPECIFIED 08/23/2019 DINORA GREEN N Ot 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 08/23/2019 DINORA GREEN Ot E78.2 MIXED HYPERLIPIDEMIA 08/23/2019 DINORA GREEN Ot G47.33 OBSTRUCTIVE SLEEP APNEA (ADULT) (PEDIATR 08/23/2019 DINORA GREEN N Ot 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 CHRONIC KIDNEY DISEASE W ST 08/23/2019 DINORA GREEN Ot I25.10 ATHSCL HEART DISEASE OF [place] CORONARY 08/23/2019 DINORA GREEN Ot I27.20 PULMONARY HYPERTENSION, UNSPECIFIED 08/23/2019 DINORA GREEN Ot I73.9 PERIPHERAL VASCULAR DISEASE, UNSPECIFIED 08/23/2019 DINORA GREEN Ot J44.9 CHRONIC OBSTRUCTIVE PULMONARY DISEASE, U 08/23/2019 DINORA GREEN Ot M19.91 PRIMARY OSTEOARTHRITIS, UNSPECIFIED SITE 08/23/2019 DINORA GREEN Ot N18.4 CHRONIC KIDNEY DISEASE, STAGE 4 (SEVERE) 08/23/2019 DINORA GREEN Ot R91.1 SOLITARY PULMONARY NODULE 08/23/2019 DINORA GREEN Ot Z79.4 TRANSMISSION BUILDER (CURRENT) USE OF INSULIN 08/23/2019 DINORA GREEN Ot Z79.82 ASSISTED (CURRENT) USE OF ASPIRIN 08/23/2019 DINORA GREEN Ot Z79.899 OTHER ASSISTED (CURRENT) DRUG THERAPY 08/24/2019 DINORA GREEN Ot D50.9 IRON DEFICIENCY ANEMIA, UNSPECIFIED 08/24/2019 DINORA GREEN Ot D63.1 ANEMIA IN CHRONIC KIDNEY DISEASE 08/24/2019 DINORA GREEN Ot E03.9 HYPOTHYROIDISM, UNSPECIFIED 08/24/2019 DINORA GREEN N Ot 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 08/24/2019 DINORA GREEN Ot E78.2 MIXED HYPERLIPIDEMIA 08/24/2019 DINORA GEREN Ot G47.33 OBSTRUCTIVE SLEEP APNEA (ADULT) (PEDIATR 08/24/2019 DINORA GREEN Ot 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 CHRONIC KIDNEY DISEASE W ST 08/24/2019 DINORA GREEN Ot I25.10 ATHSCL HEART DISEASE OF [place] CORONARY 08/24/2019 DINORA GREEN Ot I27.20 PULMONARY HYPERTENSION, UNSPECIFIED 08/24/2019 DINORA GREEN Ot I73.9 PERIPHERAL VASCULAR DISEASE, UNSPECIFIED 08/24/2019 DINORA GREEN Ot J44.9 CHRONIC OBSTRUCTIVE PULMONARY DISEASE, U 08/24/2019 DINORA GREEN Ot M19.91 PRIMARY OSTEOARTHRITIS, UNSPECIFIED SITE 08/24/2019 DINORA GREEN Ot N18.4 CHRONIC KIDNEY DISEASE, STAGE 4 (SEVERE) 08/24/2019 DINORA GREEN Ot R91.1 SOLITARY PULMONARY NODULE 08/24/2019 DINORA GREEN Ot Z79.4 TRANSMISSION BUILDER (CURRENT) USE OF INSULIN 08/24/2019 DINORA GREEN Ot Z79.82 ASSISTED (CURRENT) USE OF ASPIRIN 08/24/2019 DINORA GREEN Ot Z79.899 OTHER TRANSMISSION BUILDER (CURRENT) DRUG THERAPY 08/29/2019 DINORA GREEN Ot D50.9 IRON DEFICIENCY ANEMIA, UNSPECIFIED 08/29/2019 DINORA GREEN Ot D63.1 ANEMIA IN CHRONIC KIDNEY DISEASE 08/29/2019 DINORA GREEN Ot E03.9 HYPOTHYROIDISM, UNSPECIFIED 08/29/2019 DINORA GREEN N Ot 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 08/29/2019 DINORA GREEN Ot E78.2 MIXED HYPERLIPIDEMIA 08/29/2019 DINORA GREEN Ot G47.33 OBSTRUCTIVE SLEEP APNEA (ADULT) (PEDIATR 08/29/2019 DINORA GREEN Ot 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 CHRONIC KIDNEY DISEASE W ST 08/29/2019 DINORA GREEN Ot I25.10 ATHSCL HEART DISEASE OF [place] CORONARY 08/29/2019 DINORA GREEN Ot I27.20 PULMONARY HYPERTENSION, UNSPECIFIED 08/29/2019 DINORA GREEN Ot I73.9 PERIPHERAL VASCULAR DISEASE, UNSPECIFIED 08/29/2019 DINORA GREEN Ot J44.9 CHRONIC OBSTRUCTIVE PULMONARY DISEASE, U 08/29/2019 DINORA GREEN Ot M19.91 PRIMARY OSTEOARTHRITIS, UNSPECIFIED SITE 08/29/2019 DINORA GREEN Ot N18.4 CHRONIC KIDNEY DISEASE, STAGE 4 (SEVERE) 08/29/2019 DINORA GREEN Ot R91.1 SOLITARY PULMONARY NODULE 08/29/2019 DINORA GREEN Ot Z79.4 ASSISTED (CURRENT) USE OF INSULIN 08/29/2019 DINORA GREEN Ot Z79.82 ASSISTED (CURRENT) USE OF ASPIRIN 08/29/2019 DINORA GREEN Ot Z79.899 OTHER TRANSMISSION BUILDER (CURRENT) DRUG THERAPY 09/09/2019 DINORA GREEN Ot D50.9 IRON DEFICIENCY ANEMIA, UNSPECIFIED 09/14/2019 MIRTA TORRES CARDIOLOGY TECHNOLOGIST Ot J18.9 PNEUMONIA, UNSPECIFIED ORGANISM 09/21/2019 MIRTA TORRES CARDIOLOGY TECHNOLOGIST Ot J18.9 PNEUMONIA, UNSPECIFIED ORGANISM 10/06/2019 MIRTA TORRES CARDIOLOGY TECHNOLOGIST Ot J18.9 PNEUMONIA, UNSPECIFIED ORGANISM 11/18/2019 DINORA GREEN Ot D50.9 IRON DEFICIENCY ANEMIA, UNSPECIFIED 11/29/2019 DINORA GREEN Ot D50.9 IRON DEFICIENCY ANEMIA, UNSPECIFIED 12/03/2019 DINORA GREEN Ot D50.9 IRON DEFICIENCY ANEMIA, UNSPECIFIED 12/03/2019 DINORA GREEN Ot D63.1 ANEMIA IN CHRONIC KIDNEY DISEASE 12/03/2019 DINORA GREEN Ot N18.4 CHRONIC KIDNEY DISEASE, STAGE 4 (SEVERE) 01/07/2020 DELMAN DO, LINDA B Ot E03.9 HYPOTHYROIDISM, UNSPECIFIED 01/07/2020 DELMAN DO, LINDA B Ot E11.9 TYPE 2 DIABETES MELLITUS WITHOUT COMPLIC 01/07/2020 [facility], LINDA B Ot E78.5 HYPERLIPIDEMIA, UNSPECIFIED 01/07/2020 [facility], LINDA B Ot G47.3 3 OBSTRUCTIVE SLEEP APNEA (ADULT) (PEDIATR 01/07/2020 [facility] I10 ESSENTIAL (PRIMARY) HYPERTENSION 01/07/2020 [facility], LINDA B Ot I25.1 0 ATHSCL HEART DISEASE OF [place] CORONARY 01/07/2020 [facility], LINDA B Ot J45.9 09 UNSPECIFIED ASTHMA, UNCOMPLICATED 01/07/2020 [facility], LINDA B Ot K21.9 GASTRO-ESOPHAGEAL REFLUX DISEASE WITHOUT 01/07/2020 [facility], LINDA B Ot K52.9 NONINFECTIVE GASTROENTERITIS AND COLITIS 01/07/2020 [facility], LINDA B Ot K64.8 OTHER HEMORRHOIDS 01/07/2020 [facility], LINDA B Ot N18.9 CHRONIC KIDNEY DISEASE, UNSPECIFIED 01/07/2020 [facility], LINDA B Ot Z79.4 TRANSMISSION BUILDER (CURRENT) USE OF INSULIN 01/07/2020 [facility], LINDA B Ot Z79.8 99 OTHER ASSISTED (CURRENT) DRUG THERAPY 01/07/2020 [facility], LINDA B Ot Z89.5 19 ACQUIRED ABSENCE OF UNSPECIFIED LEG BELO 01/07/2020 [facility], LINDA B Ot Z95.5 PRESENCE OF CORONARY ANGIOPLASTY IMPLANT 01/07/2020 [facility], LINDA B Ot 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, BILAT Procedures Code Description Performed By Per formed On 37.22 09/04/2012 88.53 09/04/2012 88.56 09/04/2012 [id number] IN SERTION OF RING EXT FIX INTO L TIBIA, 10/29/2017 [id number] FU CHARITO OF L TARSOMETATARS JT WITH INT FI 10/29/2017 [id number] FL UOROSCOPY OF AORTA, BI LE ART USING L 04/25/2018 [id number] DE TACHMENT AT LEFT LOWER LEG, HIGH, OPEN 05/19/2018 Results Test Result Range Bacterial urine culture - 02/29/16 18:35 Bacterial urine culture [id number] NRG COLONY COUNT >100,000/ML NRG FTX;REPORTABLE SENSITIVITY REPORTED 03/03/16 11:45 NRG URINE CULTURE RESULTS <10,000/ML NR Bacterial susceptibility panel - 6 18:35 Gentamicin [...] test by minimum inhibitory concentration - NR Clostridium difficile detection - 20:30 C DIFF [...] 104 mmol/L 98-107 Carbon dioxide 21 mmol/L -32 Serum or plasma anion gap determination (moles/volume) [...] culture - 09/05/16 10:50 Bacterial urine culture [id number] NRG COLONY COUNT >100,000/ML NRG FTX;REPORTABLE PLUS, NRG FREE TEXT ENTRY 2 MIXED GRAM POSITIVES <10,000/ML NRG Lipid 1996 panel - 10/31/16 10:06 Serum [...] culture - 10/31/16 11:35 Bacterial urine culture [id number] NRG COLONY COUNT <10,000 NRG FREE TEXT [...] culture - 04/03/17 11:13 Bacterial urine culture [id number] NRG COLONY COUNT >100,000/ML NRG FTX;REPORTABLE SENSITIVITY [...] d white blood cell (WBC) differential - 09/07/17 11:15 Blood leukocytes automated count (number/volume) 16.6 [...] <10,000/ML NR Complete blood count (CBC) with automate d [...] - 09/02/17 16:19 Bacterial blood culture NG NR Influenza virus A and B antigen detectio [...] culture - 09/02/17 18:18 Bacterial urine culture [id number] NRG COLONY COUNT 10,000/ML - 100,000/ML NRG [...] NRG Blood type T Indirect antibody screen [facility] 09/05/17 07:18 ABO+Rh group OP NR Transfusion band number [id number] NR Blood group antibody screen NEGATIVE NR G RED CELLS LEUKO REDUCED AS1 - 09/05/17 0 7:18 RED CELLS LEUKO REDUCED AS1 T RANSFUSED 09/05/17 1148 NRG Blood type T Indirect antibody screen [facility] 09/05/17 07:18 ABO+Rh group OP NR Transfusion band number N [id number] NRG Blood group antibody screen NEGATIVE NR G Capillary blood glucose measurement by g lucometer (mass/volume) - 09/05/17 12:38 Capillary blood glucose measurement by glucometer (mas s/volume) 130 mg/dL 70-110 Whole blood hemoglobin and hematocrit [facility] 09/05/17 15:14 Venous blood hemoglobin measurement (mass/volume) [...] CHRISTIAN NRG QUANTITY OF GROWTH Moderate Growth NRG Bacterial sputum culture [id number] [facility] Bacterial susceptibility panel - 8 13:10 Gentamicin [...] glucose measurement by g lucometer (mass/volume) - 04/02/18 17:37 Capillary blood glucose measurement by glucometer [...] 104 mmol/L 98-107 Carbon dioxide 14 mmol/L - Serum or plasma anion gap determination (moles/volume) [...] 110 mmol/L 98-107 Carbon dioxide 16 mmol/L -32 Serum or plasma anion gap determination (moles/volume) [...] Bacteria identification in isolate by anaerobe culture NOANA NRG Gram stain microscopy - 04/03/18 10:07 Gram stain microscopy REPORTED 04-04-2018, 0606. NRG Bacteria identification in wound by cult ure - 04/03/18 10:07 Bacteria identification in wound by culture [id number] NRG FREE TEXT EXTERNAL RML REPORTED SENSITIVITY04/06/18 11:05 NRG QUANTITY OF GROWTH Rare NRG RML Sensitivity Panel - 04/03/18 10:07 Oxacillin [...] LEUKO REDUCED AS1 T RANSFUSED 04/25/18 1311 [facility] Blood type T Indirect antibody screen pa laurent - 04/24/18 10:10 ABO+Rh group OP [facility] Transfusion band number [id number] [facility] Blood group antibody screen NEGATIVE NR G [...] LEUKO REDUCED AS1 T RANSFUSED 05/05/18 1234 NRG Blood type T Indirect antibody screen pa laurent - 05/05/18 11:10 ABO+Rh group OP NRG Transfusion band number [id number] NRG Blood group antibody screen NEGATIVE NR [...] ABO+Rh group OP NRG Transfusion band number [id number] NRG Blood group antibody screen NEGATIVE NR [...] culture - 06/03/18 11:30 Bacterial urine culture [id number] NRG COLONY COUNT >100,000/ML NRG FTX;REPORTABLE RML [...] culture - 07/07/18 15:10 Bacterial urine culture [id number] NRG COLONY COUNT >100,000/ML NRG FTX;REPORTABLE SUSCEPTIBILITY REPORTED 07-10-2018, 1105 NRG RML Sensitivity Panel - 07/07/18 15:10 Gentamicin susceptibility [...] culture - 08/18/18 11:20 Bacterial urine culture [id number] NRG COLONY COUNT >100,000/ML NRG FREE TEXT ENTRY 2 SENSITIVITY REPORTED 08/20 12:05 NRG FREE TEXT ENTRY 3 [facility]18 11:20 Gentamicin [...] culture - 09/22/18 13:30 Bacterial urine culture [id number] NRG COLONY COUNT >100,000/ML NRG FTX;REPORTABLE SUSCEPTIBILITY REPORTED 09-24-2018,1 206 NRG FREE TEXT ENTRY 2 ID [facility]ED [facility]/23[facility]18 [facility] - 09/22/18 13:30 Gentamicin susceptibility [...] culture - 12/01/18 13:27 Bacterial urine culture [id number] NRG COLONY COUNT >100,000/ML NRG FTX;REPORTABLE SEE [...] culture - 04/27/19 14:27 Bacterial urine culture [id number] NRG COLONY COUNT >100,000/ML NRG FTX;REPORTABLE SUSCEPTIBILITY REPORTED 1352. NRG Dirithromycin susceptibility test by dis k [...] to culture YES NRG Coronavirus SARS-CoV-2 SO 2019 - 0 12:45 Coronavirus Ab [Units/volume] in [...] g/dL 3.2-4.5 CALCIUM CORRECTED 9.4 mg/dL 8.5-10.1 Complete urinalysis with reflex to cultu re - 12/31/19 05:57 Urine color determination YELLOW NRG Urine clarity determination CLOUDY NR G Urine pH measurement by test strip 6.0 5-9 Specific gravity of urine by test [...] urobilinogen measurement by automated test strip (mass/volume) 0.2 mg/dL < = 1.0 Urine leukocyte esterase detection by dipstick 3+ [...] culture YES NRG Bacterial urine culture - 12/31/19 05:57 Bacterial urine culture [id number] NRG COLONY COUNT >100,000/ML NRG SUSCEPTIBILITY SUSCEPTIBILITY REPORTED 01/01 10:35 NRG Dirithromycin susceptibility test by dis k diffusion - 12/31/19 05:57 Gentamicin susceptibility test by minimum inhibitory c oncentration <= NRG Trimethoprim/sulfamethoxazole susceptibi lity test by minimum inhibitoryconcentration <= NRG Levofloxacin susceptibility test by minimum inhibitory concentration <= NRG Ampicillin susceptibility test by minimum inhibitory c oncentration R NRG Cefazolin susceptibility test by minimum inhibitory co ncentration <= NRG Ceftriaxone susceptibility test by minimum inhibitory concentration <= NRG Ciprofloxacin susceptibility test by minimum inhibitor y concentration <= NRG Meropenem susceptibility test by minimum inhibitory co ncentration <= NRG Nitrofurantoin susceptibility test by mi nimum inhibitory concentration 32 NRG Amoxicillin and clavulanate potassium susc KAROLYN <= NRG Capillary blood glucose measurement by g [...] measurement by g lucometer (mass/volume) - 12/31/19 15:51 Capillary blood glucose measurement by glucometer (mas s/volume) 127 mg/dL 70-110 Capillary blood glucose measurement by g lucometer (mass/volume) - 12/31/19 20:37 Capillary blood glucose measurement by glucometer (mas s/volume) 267 mg/dL 70-110 Automated blood complete blood count (he mogram) panel - 01/01/20 05:34 Blood leukocytes automated count (number/volume) 9.5 10*3/uL 4.3-11.0 Blood erythrocytes automated count (number/volume) [...] 32-36 Automated erythrocyte distribution width ratio 16. 7 % 10.0- 14.5 Automated blood platelet count (count/volume) 137 10*3/uL 130-400 Automated blood platelet mean volume measurement 10.3 [foz_us] 7.4-10.4 Whole blood basic metabolic panel - 01/14 05:34 Serum or plasma sodium measurement (moles/volume) 136 mmol/L 135-145 Serum or plasma potassium measurement (moles/volume) 4.0 mmol/L 3.6-5.0 Serum or plasma chloride measurement (moles/volume) 113 mmol/L 98-107 Carbon dioxide 14 mmol/L 21-32 Serum or plasma anion gap determination (moles/volume) 9 mmol/L 5-14 Serum or plasma urea nitrogen measurement (mass/volume ) 21 mg/dL 7-18 Serum or plasma creatinine measurement (mass/volume) 1.90 mg/dL 0.60-1.30 Serum or plasma urea nitrogen/creatinine mass ratio 11 NRG Serum or plasma creatinine measurement w ith calculation of estimated glomerular filtration rate 25 NRG Serum or plasma glucose measurement (mass/volume) 147 mg/dL 70-105 Serum or plasma calcium measurement (mass/volume) 8.7 mg/dL 8.5-10.1 Capillary blood glucose measurement by g lucometer (mass/volume) - 01/01/20 06:08 Capillary blood glucose measurement by glucometer (mas s/volume) 144 mg/dL 70-110 Capillary blood glucose measurement by g lucometer (mass/volume) - 01/01/20 11:04 Capillary blood glucose measurement by glucometer (mas s/volume) 214 mg/dL 70-110 Capillary blood glucose measurement by g lucometer (mass/volume) - 01/03/20 10:56 Capillary blood glucose measurement by glucometer (mas s/volume) 131 mg/dL 70-110 Gram stain microscopy - 01/03/20 12:35 Gram stain microscopy TNP NRG Stool bacteria identification by culture - 01/03/20 12:35 Bacterial body fluid culture - 01/03/20 12:35 QUANTITY OF GROWTH SMALL AMOUNT NRG Bacterial body fluid culture [id number] NRG SUSCEPTIBILITY INCLUDING YEAST NRG MRSA SCREEN GROWTH CONSISTENT W/FECAL CHRISTIAN NRG RAPID ID NO BETA STREP, STAPH AUREUS, OR NRG ID CONFIRMATION PSEUDOMONAS ISOLATED. N RG Complete blood count (CBC) with automate d white blood cell (WBC) differential - 01/09/20 14:40 Blood leukocytes automated count (number/volume) 27.3 10*3/uL 4.3-11.0 Blood erythrocytes automated count (number/volume) 4.06 10*6/uL 4.35-5.85 Venous blood hemoglobin measurement (mass/volume) 10.9 g/dL 11.5-16.0 Blood hematocrit (volume fraction) 35 % 35-52 Automated erythrocyte mean corpuscular volume 86 [ foz_us] 80-99 Automated erythrocyte mean corpuscular h emoglobin (mass per erythrocyte) 27 pg 25-34 Automated erythrocyte mean corpuscular h emoglobin concentration measurement (mass/volume) 31 g/dL 32-36 Automated erythrocyte distribution width ratio 18. 0 % 10.0- 14.5 Automated blood platelet count (count/volume) 315 10*3/uL 130-400 Automated blood platelet mean volume measurement 10.2 [foz_us] 7.4-10.4 Automated blood neutrophils/100 leukocytes 76 % 42-75 Automated blood lymphocytes/100 leukocytes 19 % 12-44 Blood monocytes/100 leukocytes 6 % 0-12 Automated blood eosinophils/100 leukocytes 0 % 0-10 Automated blood basophils/100 leukocytes 0 % 0-10 Blood neutrophils automated count (number/volume) 20.6 10*3 1.8-7.8 Blood lymphocytes automated count (number/volume) 5.1 10*3 1.0-4.0 Blood monocytes automated count (number/volume) 1. 6 10*3 0.0-1.0 Automated eosinophil count 0.0 10*3/uL 0 .0-0.3 Automated blood basophil count (count/volume) 0.0 10*3/uL 0.0-0.1 Comprehensive metabolic panel - 01/09/20 14:40 Serum or plasma sodium measurement (moles/volume) 135 mmol/L 135-145 Serum or plasma potassium measurement (moles/volume) 3.7 mmol/L 3.6-5.0 Serum or plasma chloride measurement (moles/volume) 112 mmol/L 98-107 Carbon dioxide 6 mmol/L 21-32 Serum or plasma anion gap determination (moles/volume) 17 mmol/L 5-14 Serum or plasma urea nitrogen measurement (mass/volume ) 51 mg/dL 7-18 Serum or plasma creatinine measurement (mass/volume) 6.90 mg/dL 0.60-1.30 Serum or plasma urea nitrogen/creatinine mass ratio 7 NRG Serum or plasma creatinine measurement w ith calculation of estimated glomerular filtration rate 6 NRG Serum or plasma glucose measurement (mass/volume) 169 mg/dL 70-105 Serum or plasma calcium measurement (mass/volume) 9.0 mg/dL 8.5-10.1 Serum or plasma total bilirubin measurement (mass/volu me) 0.4 mg/dL 0.1-1.0 Serum or plasma alkaline phosphatase josie surement (enzymatic activity/volume) 135 U/L 40-136 Serum or plasma aspartate aminotransfera se measurement (enzymatic activity/volume) 19 U/L 5-34 Serum or plasma alanine aminotransferase measurement (enzymatic activity/volume) 22 U/L 0-55 Serum or plasma protein measurement (mass/volume) 7.3 g/dL 6.4-8.2 Serum or plasma albumin measurement (mass/volume) 4.1 g/dL 3.2-4.5 CALCIUM CORRECTED 8.9 mg/dL 8.5-10.1 Manual absolute plasma cell count - 12/26 11/14 14:40 Blood monocytes/100 leukocytes 3 % NRG Manual blood segmented neutrophils/100 leukocytes 62 % NRG Blood band neutrophils/100 leukocytes 8 % NRG Manual blood lymphocytes/100 leukocytes 27 % NRG Blood polychromasia detection by light microscopy SLIGHT NRG Blood anisocytosis detection by light microscopy S LIGHT NRG Blood toxic granules detection by light microscopy 2+ NRG Blood microcytes detection by light microscopy SLI GHT NRG PROCALCITONIN (PCT) - 01/09/20 14:48 PROCALCITONIN (PCT) 0.74 ng/mL <0.10 Blood lactic acid measurement (moles/vol ume) - 01/09/20 15:15 Blood lactic acid measurement (moles/volume) 1.36 mmol/L 0.50-2.00 Complete urinalysis with reflex to cultu re - 01/09/20 15:36 Urine color determination YELLOW NRG Urine clarity determination CLOUDY NR G Urine pH measurement by test strip 5.0 5-9 Specific gravity of urine by test strip >= 1.016-1.022 Urine protein assay by test strip, semi-quantitative 3+ NEGATIVE Urine glucose detection by automated test strip NE GATIVE NEGATIVE Erythrocytes detection in urine sediment by light micr oscopy TRACE-L NEGATIVE Urine ketones detection by automated test strip NE GATIVE NEGATIVE Urine nitrite detection by test strip NEGATIVE NEGATIVE Urine total bilirubin detection by test strip NEGA TIVE NEGATIVE Urine urobilinogen measurement by automated test strip (mass/volume) 0.2 mg/dL < = 1.0 Urine leukocyte esterase detection by dipstick 1+ NEGATIVE Automated urine sediment erythrocyte cou nt by microscopy (number/high power field) [HPF] NRG Automated urine sediment leukocyte count by microscopy (number/high power field) [HPF] NRG Bacteria detection in urine sediment by light microsco py LARGE NRG Crystals detection in urine sediment by light microsco py PRESENT NRG Casts detection in urine sediment by light microscopy NONE NRG Mucus detection in urine sediment by light microscopy NEGATIVE NRG Complete urinalysis with reflex to culture YES NRG Yeast detection in urine sediment by light microscopy MODERATE NRG Amorphous sediment detection in urine sediment by ligh t microscopy MOD DENNIS URATES NRG Encounters ACCT No. Visit Date/Time Discharge Status Pt. Type Provider Facility Loc./Unit Complaint [id number] 03/22/2016 11:58:41 03/22/2016 23:59: 59 CLS Outpatient Juan Rolle [id number] 01/03/2020 10:18:00 13:55:00 DIS Outpatient LINDA MCCARTNEY DO [facility] ENDO BLOOD IN STOOL/[place] [id number] 12/30/2019 20:21:00 15:23:00 DIS Inpatient PAIGE WILEY MD [facility] 4TH RANDOLPH,[place]ARR[place]A [id number] 12/30/2019 08:40:00 14:06:00 DIS Outpatient LINDA MCCARTNEY DO [facility] PREOP COLONOSCOPY [id number] 12/21/2019 12:46:00 23:59:59 CLS Outpatient DINORA GREEN [facility] ONC [id number] 11/09/2019 11:36:00 00:01:00 DIS Outpatient DINORA GREEN [facility] ONC [id number] 09/15/2019 11:18:00 23:59:59 CLS Outpatient MIRTA TORRES APRN [facility] RAD [id number] 09/10/2019 10:21:00 23:59:59 CLS Outpatient MIRTA TORRES APRN [facility] RAD PNEOMINA [id number] 08/03/2019 10:33:00 020 00:01:00 DIS Outpatient DINORA GREEN [facility] ONC [id number] 05/11/2019 11:17:00 00:01:00 DIS Outpatient DINORA GREEN [facility] ONC [id number] 04/07/2019 15:37:00 23:59:59 CLS Outpatient DIONISIO BOWEN Kristin CARDIOLOGY TECHNOLOGIST [facility] RAD R/O BLOOD CLOT [id number] 04/05/2019 15:11:00 23:59:59 CLS Outpatient FELICITA CEDEÑO MD [facility] RAD COUGH,WEAKNESS [id number] 04/02/2019 14:33:00 16:22:00 DIS Emergency OTIS TY, MARCIA Garza [facility] ER POSS UTI;FOOT PAIN [id number] 03/23/2019 16:07:00 23:59:59 CLS Outpatient MIRTA TORRES CARDIOLOGY TECHNOLOGIST [facility] RAD WRIST PAIN [id number] 01/20/2019 09:24:00 00:01:00 DIS Outpatient DINORA GREEN [facility] ONC [id number] 12/23/2018 10:35:00 23:59:59 CLS Outpatient MARIELLE SETH CARDIOLOGY TECHNOLOGIST [facility] LAB [id number] 12/08/2018 10:24:00 23:59:59 CLS Outpatient FELICITA CEDEÑO MD [facility] LAB [id number] 10/27/2018 13:05:00 00:01:00 DIS Outpatient DINORA GREEN [facility] ONC [id number] 10/07/2018 10:56:00 12:12:00 DIS Outpatient ARABELLA AGUILERA DO [facility] REHAB S/P L BKA [id number] 07/17/2018 08:58:00 16:00:00 DIS Outpatient ARABELLA AGUILERA DO [facility] REHAB S/P L BKA [id number] 07/22/2018 15:02:00 00:01:00 DIS Outpatient DINORA GREEN Casi Angelica [facility] ONC [id number] 06/03/2018 12:24:00 12:36:00 DIS Inpatient SUHA TAYLOR MD [facility] 4TH SEPSIS [id number] 05/21/2018 11:38:00 10:15:00 DIS Inpatient LINDA MCKEON MD [facility] IRF LEFT BKA [id number] 05/19/2018 11:51:00 11:15:00 DIS Inpatient ALE DO ARABELLA Robins [facility] 4TH AVN,CHARCO FOOT LT [id number] 05/15/2018 09:21:00 23:59:59 CLS Outpatient TAPAN DUVALL MD [facility] WOUNDCARE [id number] 05/13/2018 15:42:00 23:59:59 CLS Preadmit ALE HUNT ARABELLA Robins [facility] SDC AVN TALUS LEFT ANKLE [id number] 05/13/2018 15:37:00 23:59:59 CLS Outpatient ALE HUNT ARABELLA Robins [facility] PREOP AVN,LT CHARCO F OOT [id number] 05/08/2018 10:42:00 23:59:59 CLS Outpatient TAPAN DUVALL MD [facility] WOUNDCARE [id number] 05/04/2018 17:00:00 18:40:00 DIS Inpatient BLAMATAHO SANJUANA ALLISON [facility] 4TH LEFT ANKLE FRACTURE [id number] 05/02/2018 22:33:00 00:00:00 DIS Emergency SEN DELONG MD [facility] ER L FOOT WOUND [id number] 05/01/2018 10:58:00 23:59:59 CLS Outpatient MIRTA TORRES APRN [facility] WOUNDCARE [id number] 04/14/2018 11:57:00 018 11:02:00 DIS Outpatient DINORA GREEN [facility] ONC [id number] 04/25/2018 15:15:00 018 11:35:00 DIS Inpatient JULIETTE GOMEZ MD [facility] 4TH PVD,CAD,HTN,HLP,DM [id number] 04/22/2018 10:19:00 018 23:59:59 CLS Outpatient TAPAN DUVALL MD [facility] WOUNDCARE [id number] 04/21/2018 12:45:00 018 23:59:59 CLS Outpatient JULIETTE GOMEZ MD [facility] CAD,COPD,CAROTID ARTERY STENOSIS [id number] 04/17/2018 10:20:00 018 23:59:59 CLS Outpatient TAPAN DUVALL MD [facility] WOUNDCARE [id number] 04/10/2018 10:50:00 018 23:59:59 CLS Outpatient TAPAN DUVALL MD [id number] 04/03/2018 08:45:00 018 23:59:59 CLS Outpatient TAPAN DUVALL MD [id number] 03/22/2018 20:30:00 018 13:35:00 DIS Inpatient SUHA TAYLOR MD [facility] 4TH DELIRIUM,SEPSIS,CKD,LOW NA [id number] 03/20/2018 18:11:00 018 21:45:00 DIS Outpatient DIETER LOVE APRN [facility] ER UTI [id number] 02/10/2018 15:30:00 018 00:01:00 DIS Outpatient DINORA GREEN [facility] ONC [id number] 11/10/2017 13:36:00 018 11:30:00 DIS Outpatient JONO TY, CHASITY [facility] ONC [id number] 10/27/2017 08:00:00 018 11:35:00 DIS Inpatient SANJUANA ANNE DPM [facility] 4TH CHARCO LEFT FOOT [id number] 10/07/2017 11:08:00 018 23:59:59 CLS Outpatient MIRTA TORRES CARDIOLOGY TECHNOLOGIST [facility] RAD LT LEG PAIN/JORDI MA [id number] 09/30/2017 14:19:00 018 23:59:59 CLS Outpatient MIRTA TORRES CARDIOLOGY TECHNOLOGIST [facility] RAD SWELLING R/O DV T [id number] 09/05/2017 10:45:00 018 11:20:00 DIS Inpatient LINDA MCKEON MD [facility] IRF SUBDURAL HEMATOMA [id number] 09/02/2017 15:19:00 018 10:20:00 DIS Inpatient SUHA TAYLOR MD [facility] ICU PNEUMONIA [id number] 09/02/2017 10:08:00 018 23:59:59 CLS Outpatient GALA TY, FELICITA Borges [facility] LAB [id number] 08/19/2017 13:36:00 018 09:26:00 DIS Outpatient DINORA GREEN [facility] ONC [id number] 08/06/2017 13:27:00 018 23:59:59 CLS Outpatient KLARISSA MOSER CARDIOLOGY TECHNOLOGIST [facility] RAD LUNG NODULE, CO UGH, SOB [id number] 07/23/2017 13:38:00 018 00:01:00 DIS Outpatient DINORA GREEN [facility] ONC [id number] 04/17/2017 12:53:00 017 00:01:00 DIS Outpatient DINORA GREEN [facility] ONC [id number] 04/04/2017 10:00:00 017 12:30:00 DIS Inpatient SUHA TAYLOR MD [facility] 4TH FALL DIABETES UTI SEPSI S [id number] 02/13/2017 11:15:00 017 23:59:59 CLS Outpatient FELICITA CEDEÑO MD [facility] LAB [id number] 01/23/2017 12:54:00 017 00:01:00 DIS Outpatient DINORA GREEN [facility] ONC [id number] 02/11/2017 15:24:00 017 23:59:59 CLS Outpatient BRIAN MIRTACasi Lozano APRN [facility] RAD FALL LEFT KNEE PAIN [id number] 10/31/2016 09:52:00 017 00:01:00 DIS Outpatient DINORA GREEN [facility] ONC [id number] 11/04/2016 10:56:00 017 23:59:59 CLS Outpatient ANGEL FLOWERS [facility] RAD MENTAL STATUS C HANGE [id number] 10/31/2016 09:55:00 017 23:59:59 CLS Outpatient FELICITA CEDEÑO MD [facility] LAB [id number] 10/17/2016 14:29:00 017 23:59:59 CLS Outpatient FELICITA CEDEÑO MD [facility] RAD SCREENING [id number] 07/25/2016 10:32:00 00:01:00 DIS Outpatient DINORA GREEN [facility] ONC [id number] 07/12/2016 12:45:00 23:59:59 CLS Outpatient AR ALLEN DO [facility] RT COPD,COUGH [id number] 06/27/2016 07:57:00 016 23:59:59 CLS Outpatient AR ALLEN DO [facility] RAD COPD,COUGH,LUNG NODULE [id number] 06/13/2016 13:35:00 23:59:59 CLS Outpatient FELICITA CEDEÑO MD [facility] LAB [id number] 05/30/2016 00:10:00 23:59:59 CLS Preadmit FELICITA CEDEÑO MD, [facility] LAB R19.7,N39.0 [id number] 03/03/2016 20:30:00 00:01:00 DIS Outpatient FELICITA CEDEÑO MD [facility] LAB R19.7,N39.0 [id number] 04/25/2016 13:59:00 11:00:00 DIS Outpatient DINORA GREEN [facility] ONC [id number] 04/11/2016 08:30:00 23:59:59 CLS Outpatient KARENA PALACIOS [facility] LAB [id number] 03/21/2016 12:00:00 23:59:59 CLS Outpatient DELILAH HARE [facility] LAB [id number] 03/14/2016 10:20:00 23:59:59 CLS Outpatient ANGEL FLOWERS [facility] ONC [id number] 03/14/2016 13:49:00 15:17:00 DIS Outpatient TAPAN HUI MD [facility] REHAB CHRONIC RECURRENT HOARS ENESS AND COUGH [id number] 03/07/2016 10:55:00 23:59:59 CLS Outpatient MIRTA TORRES APRN [facility] LAB [id number] 03/07/2016 10:52:00 23:59:59 CLS Outpatient FELICITA CEDEÑO MD [facility] LAB [id number] 02/15/2016 11:38:00 23:59:59 CLS Outpatient DELILAH HARE [facility] LAB [id number] 02/02/2016 10:22:00 23:59:59 CLS Outpatient TAPAN HUI MD [facility] RAD CHRONIC HOFRANCOISE PALACIOS H [id number] 01/31/2016 08:00:00 00:01:00 DIS Outpatient DINORA RGEEN [facility] ONC [id number] 01/18/2016 12:04:00 23:59:59 CLS Outpatient FELICITA CEDEÑO MD [facility] LAB [id number] 01/11/2016 09:28:00 23:59:59 CLS Outpatient ANGEL FLOWERS [facility] ONC [id number] 12/15/2015 15:38:00 11:40:00 DIS Inpatient FELICITA CEDEÑO MD [facility] 4TH COUGH/CONGESTION [id number] 11/29/2015 10:41:00 23:59:59 CLS Outpatient MIRTA TORRES APRN [facility] RAD PAIN IN CHEST R SHOULDER [id number] 11/29/2015 10:27:00 23:59:59 CLS Outpatient KARENA PALACIOS [facility] CARD CAD,CP SYDR OME HTN [id number] 10/26/2015 11:07:00 00:01:00 DIS Outpatient DINORA GREEN [facility] ONC [id number] 10/04/2015 12:26:00 23:59:59 CLS Outpatient FELICITA CEDEÑO MD [facility] RAD HEADACHES [id number] 09/07/2015 10:52:00 23:59:59 CLS Outpatient ANGEL FLOWERS [facility] ONC [id number] 09/06/2015 11:07:00 23:59:59 CLS Outpatient FELICITA CEDEÑO MD [facility] RAD SCREENING [id number] 09/01/2015 07:52:00 02/05/2 016 23:59:59 CLS Outpatient DELILAH FRIAS MD [facility] LAB [id number] 07/26/2015 09:44:00 015 00:01:00 DIS Outpatient DINORA GREEN [facility] ONC [id number] 07/06/2015 10:47:00 23:59:59 CLS Outpatient ANGEL FLOWERS ENTRY LEVEL PROJECT ENGINEER [facility] ONC [id number] 07/03/2015 09:28:00 23:59:59 CLS Outpatient KLARISSA MOSER CARDIOLOGY TECHNOLOGIST [facility] RAD LUNG NODULE [id number] 05/11/2015 10:14:00 23:59:59 CLS Outpatient FELICITA CEDEÑO MD [facility] LAB [id number] 04/20/2015 08:31:00 00:01:00 DIS Outpatient DINORA GREEN [facility] ONC [id number] 04/20/2015 08:28:00 015 23:59:59 CLS Outpatient PATRICIA TY, JULIETTE Infante [facility] LAB [id number] 03/02/2015 12:38:00 23:59:59 CLS Outpatient ANGEL FLOWERS ENTRY LEVEL PROJECT ENGINEER [facility] ONC [id number] 03/02/2015 10:31:00 23:59:59 CLS Outpatient MIRTA TORRES CARDIOLOGY TECHNOLOGIST [facility] LABNPT UTI [id number] 02/08/2015 10:55:00 015 13:20:00 DIS Inpatient LINDA MCKEON MD [facility] IRF WEAKNESS,ALTERED MENTAL STATUS [id number] 02/02/2015 13:27:00 015 10:55:00 DIS Inpatient FELICITA CEDEÑO MD [facility] SURGICAL ACUTE RENAL FAILURE,UTI ,AMS [id number] 01/25/2015 10:53:00 015 00:01:00 DIS Outpatient DINORA GREEN [facility] ONC [id number] 01/31/2015 11:09:00 23:59:59 CLS Outpatient FELICITA CEDEÑO MD [facility] RAD FALL, CONFUSION [id number] 01/04/2015 10:34:00 23:59:59 CLS Outpatient AR ALLEN DO [facility] RAD COPD,SOB,COUGH, PNUEMON IA [id number] 01/04/2015 09:53:00 23:59:59 CLS Outpatient ANGEL FLOWERS ENTRY LEVEL PROJECT ENGINEER [facility] RAD HEADACHE [id number] 12/29/2014 13:27:00 23:59:59 CLS Outpatient ANGEL FLOWERS ENTRY LEVEL PROJECT ENGINEER [facility] ONC [id number] 12/26/2014 09:57:00 23:59:59 CLS Outpatient AR ALLEN DO [facility] RAD COPD SOB PNEUMONIA COUG H [id number] 11/02/2014 11:48:00 00:01:00 DIS Outpatient DINORA GREEN [facility] ONC [id number] 11/04/2014 20:01:00 015 07:10:00 DIS Outpatient AR ALLEN DO [facility] SLEEP SNORING,NOCTURNAL HYPOX IA [id number] 10/27/2014 13:50:00 23:59:59 CLS Outpatient ANGEL FLOWERS ENTRY LEVEL PROJECT ENGINEER [facility] ONC [id number] 08/30/2014 16:15:00 23:59:59 CLS Outpatient MIRTA TORRES APRN [facility] RAD COUGHING X3 WEE [place] [id number] 08/16/2014 09:49:00 23:59:59 CLS Outpatient FELICITA CEDEÑO MD [facility] RAD SCREENING [id number] 08/04/2014 13:35:00 00:01:00 DIS Outpatient DINORA GREEN [facility] ONC [id number] 07/20/2014 14:47:00 16:00:00 DIS Emergency FRANKLIN CEDEÑO MD [facility] ER SHAKING;SOA;UNABLE TO V OMIT;ABD PAIN [id number] 07/07/2014 13:42:00 23:59:59 CLS Outpatient ANGEL FLOWERS ENTRY LEVEL PROJECT ENGINEER [facility] ONC [id number] 07/01/2014 14:18:00 23:59:59 CLS Outpatient AR ALLEN DO [facility] RT COPD,COUGH,SOB [id number] 06/28/2014 15:03:00 23:59:59 CLS Outpatient AR ALLEN DO [facility] PULM COPD,COUGH,SOB [id number] 06/01/2014 07:17:00 23:59:59 CLS Outpatient JULIETTE GOMEZ MD [facility] CARD CAD HTN HLE [id number] 05/30/2014 10:59:00 23:59:59 CLS Outpatient JULIETTE GOMEZ MD [facility] CARD CAD HTN HLE [id number] 04/27/2014 08:52:00 00:01:00 DIS Outpatient DINORA GREEN [facility] ONC [id number] 04/29/2014 09:22:00 23:59:59 CLS Outpatient LEXIE GONZALES [facility] RAD HEMTOPYSIS,COUG H [id number] 04/27/2014 09:53:00 23:59:59 CLS Outpatient LEXIE GONZALES [facility] LAB [id number] 04/14/2014 15:30:00 23:59:59 CLS Outpatient LEXIE GONZALES ENTRY LEVEL PROJECT ENGINEER [facility] RAD HEMOPTYSIS [id number] 02/24/2014 10:27:00 014 23:59:59 CLS Outpatient ANGEL FLOWERS ENTRY LEVEL PROJECT ENGINEER [facility] ONC [id number] 02/04/2014 09:35:00 014 00:01:00 DIS Outpatient DINORA GREEN [facility] ONC [id number] 12/23/2013 10:56:00 014 23:59:59 CLS Outpatient ANGEL FLOWERS S ENTRY LEVEL PROJECT ENGINEER [facility] ONC [id number] 10/14/2013 13:21:00 014 00:01:00 DIS Outpatient DINORA GREEN [facility] ONC [id number] 10/28/2013 15:43:00 23:59:59 CLS Outpatient DELILAH FRIAS MD [facility] LAB [id number] 09/02/2013 12:58:00 23:59:59 CLS Outpatient ANGEL FLOWERS ENTRY LEVEL PROJECT ENGINEER [facility] ONC [id number] 08/16/2013 12:33:00 014 23:59:59 CLS Outpatient DINORA GREEN [facility] RAD ABN MAMMO [id number] 05/20/2013 13:03:00 014 00:01:00 DIS Outpatient DINORA RGEEN [facility] ONC [id number] 07/22/2013 14:03:00 013 23:59:59 CLS Outpatient ANGEL FLOWERS S ENTRY LEVEL PROJECT ENGINEER [facility] RAD [id number] 07/22/2013 12:48:00 013 23:59:59 CLS Outpatient ANGEL FLOWERS S ENTRY LEVEL PROJECT ENGINEER [facility] ONC [id number] 05/27/2013 10:28:00 23:59:59 CLS Outpatient JULIETTE GOMEZ MD [facility] LAB [id number] 04/29/2013 13:23:00 00:01:00 DIS Outpatient DINORA GREEN [facility] ONC [id number] 04/27/2013 14:57:00 23:59:59 CLS Outpatient SAURABH TY, PAIGE Benitez [facility] RAD COUGH RT SIDE W HEEZES [id number] 04/22/2013 13:02:00 23:59:59 CLS Outpatient EZ TY, TAPAN Carvajal [facility] RAD CHRONIC SINUSITIS [id number] 04/14/2013 07:54:00 23:59:59 CLS Outpatient KARENA PALACIOS [facility] RAD CAD,COPD,PA LP [id number] 04/01/2013 13:46:00 23:59:59 CLS Outpatient ANGEL FLOWERS ENTRY LEVEL PROJECT ENGINEER [facility] ONC [id number] 02/23/2013 13:07:00 23:59:59 CLS Outpatient ANGEL FLOWERS ENTRY LEVEL PROJECT ENGINEER [facility] RAD SIX MONTH FOLLO W-UP ON ABN MAMMO [id number] 02/04/2013 13:19:00 23:59:59 CLS Outpatient ANGEL FLOWERS ENTRY LEVEL PROJECT ENGINEER [facility] ONC [id number] 01/27/2013 10:32:00 00:01:00 DIS Outpatient DINORA GREEN [facility] ONC [id number] 01/09/2020 14:54:00 Document Registration [id number] 02/25/2018 20:15:00 Document Registration [id number] 05/23/2016 09:43:00 Document Registration [id number] 01/31/2015 11:09:00 Document Registration [id number] 01/31/2015 11:09:00 Document Registration [id number] 10/21/2014 17:39:00 Document Registration [id number] 10/06/2014 11:52:00 Document Registration [id number] 09/27/2014 15:00:00 Document Registration [id number] 09/26/2014 14:29:00 Document Registration [id number] 09/14/2014 11:36:00 Document Registration [id number] 11/12/2012 10:29:00 Document Registration [id number] 10/22/2012 15:18:00 Document Registration [id number] 10/15/2012 14:22:00 Document Registration [id number] 09/25/2012 07:45:00 Document Registration [id number] 09/17/2012 11:58:00 Document Registration [id number] 09/12/2012 14:53:00 Document Registration [id number] 09/03/2012 13:47:00 Document Registration [id number] 08/26/2012 13:26:00 Document Registration [id number] 08/14/2012 11:07:00 Document Registration [id number] 08/14/2012 09:57:00 Document Registration [id number] 08/13/2012 15:05:00 Document Registration [id number] 08/06/2012 13:34:00 Document Registration [id number] 08/03/2012 11:10:00 Document Registration [id number] 07/28/2012 00:00:00 Document Registration [id number] 07/23/2012 16:03:00 Document Registration [id number] 07/02/2012 13:43:00 Document Registration [id number] 06/19/2012 06:00:00 Document Registration [id number] 05/21/2012 13:57:00 Document Registration [id number] 05/01/2012 13:12:00 Document Registration [id number] 04/02/2012 10:23:00 Document Registration [id number] 03/19/2012 10:14:00 Document Registration [id number] 01/22/2012 08:52:00 Document Registration [id number] 01/02/2012 14:57:00 Document Registration [id number] 10/24/2011 16:08:00 Document Registration [id number] 10/03/2011 13:01:00 Document Registration [id number] 08/22/2011 11:47:00 Document Registration [id number] 07/18/2011 09:50:00 Document Registration [id number] 07/04/2011 13:50:00 Document Registration [id number] 06/27/2011 13:00:00 Document Registration [id number] 05/01/2011 05:31:00 Document Registration [id number] 04/30/2011 07:42:00 Document Registration [id number] 04/08/2011 14:59:00 Document Registration [id number] 03/25/2011 10:00:00 Document Registration [id number] 03/20/2011 10:40:00 Document Registration [id number] 03/12/2011 11:37:00 Document Registration [id number] 03/05/2011 08:13:00 Document Registration [id number] 03/04/2011 09:27:00 Document Registration [id number] 02/14/2011 14:24:00 Document Registration [id number] 02/06/2011 07:37:00 Document Registration [id number] 02/05/2011 11:32:00 Document Registration [id number] 01/31/2011 12:04:00 Document Registration [id number] 01/07/2011 14:25:00 Document Registration [id number] 11/15/2010 11:12:00 Document Registration [id number] 09/10/2010 13:49:00 Document Registration [id number] 08/08/2010 15:33:00 Document Registration [id number] 07/30/2010 16:54:00 Document Registration [id number] 04/26/2010 15:38:00 Document Registration [id number] 04/20/2010 10:46:00 Document Registration [id number] 01/10/2010 14:19:00 Document Registration [id number] 01/10/2010 09:02:00 Document Registration [id number] 12/27/2009 14:22:00 Document Registration [id number] 12/22/2009 12:22:00 Document Registration [id number] 11/20/2009 15:02:00 Document Registration [id number] 10/30/2009 09:17:00 Document Registration [id number] 10/23/2009 09:56:00 Document Registration [id number] 10/11/2009 13:44:00 Document Registration [id number] 10/05/2009 08:46:00 Document Registration [id number] 09/20/2009 14:23:00 Document Registration [id number] 08/30/2009 09:24:00 Document Registration
[2020-01-09] MEDS: NOREPINEPHRINE 4 MG/250 ML 250 ML IV SCH (16:11)
[2020-01-09] MEDS ORDERED: cefTRIAXone 1,000 MG/SWFI 10 ML IV PUSH IV ONE ×2 (16:15)
--- NOTE | 2020-01-09 16:25 | NUR ---
PATIENT ASKING FOR FOOD ON ADMIT TO ICU
--- NOTE | 2020-01-09 16:30 | NUR ---
UP DATE GIVEN TO DAUGHTER KLARISSA.
--- NOTE | 2020-01-09 16:56 | NUR ---
CARLOS SERRA admitted to room 12-1, with an admitting diagnosis of Hypotension, on 01/09/20 from AM via cart, accompanied by staff.CARLOS SERRA introduced to surroundings, call light, bed controls, phone, TV, temperature control, lights, meal times, smoking policy, visitor policy, side rail policy, bathrooms and showers. Patient Rights given to patient in the handbook. CARLOS SERRA verbalizes understanding that [facility] is not responsible for the loss or damage to any personal effects or valuables that are kept in the patients posession during their hospitalization. The following Patient Care Plans were discussed with the pt: Discharge Planning. CARLOS SERRA verbalizes understanding of Interdisciplinary Patient Education. Patient and/or family were informed about the Rapid Response Team and its purpose.
[2020-01-09] MEDS ORDERED: ONDANSETRON 4 MG/2 ML (SDV) Z0FRAN IV PRN (17:00)
[2020-01-09] MEDS ORDERED: fluCOnazole (DIFLUCAN) 10MG/ML 35ML BTL PO SCH (17:03)
[2020-01-09] MEDS: VANCOMYCIN 50 MG/ML ORAL SOLN 150 ML PO SCH ×2 (18:00→21:21)
[2020-01-09 20:30] LABS: CALCIUM 8.4 MG/DL (8.5-10.1); CREATININE SERUM 6.74 MG/DL (0.60-1.30); POTASSIUM 3.4 MMOL/L (3.6-5.0)
[2020-01-09] MEDS: inSUlin ASPART (NovoLOG) 1 UNIT/0.01 ML (CHARGE PER UNIT) SC SCH ×2 (20:52→21:07)
[2020-01-09] MEDS ORDERED: NS IV 500 ML 500 ML IV ONE (21:00)
[2020-01-09] MEDS ORDERED: NS 100 ML (IVPB) BAG IV ONE (21:00)
[2020-01-09] MEDS ORDERED: KCL 20 MEQ TAB (K-DUR) PO ONE (21:00)
[2020-01-09] MEDS ORDERED: NS IV 500 ML 500 ML ONE (21:12)
[2020-01-09] MEDS ORDERED: STERILE IV SCH ×2 (21:15)
[2020-01-09] MEDS ORDERED: WATER FOR INJECTION IV SCH ×2 (21:15)
[2020-01-09] MEDS ORDERED: SODIUM BICARBONATE IV SCH ×2 (21:15)
[2020-01-09] MEDS: metroNIDAZOLE 500 MG/100 ML IVPB (PRE-MIX) IV SCH (21:21)
[2020-01-09] MEDS ORDERED: SODIUM BICARBONATE 8.4% VIAL 100 MEQ in 1/2 NS IV SOLUTION 1,000 ML IV SCH (22:45)
[2020-01-09] MEDS ORDERED: SODIUM BICARB 8.4% 50 MEQ/50 ML VIAL ONE (22:46)
[2020-01-09] MEDS ORDERED: 1/2 NS IV SOLUTION 1,000 ML IV ONE (22:46)
[2020-01-09] MEDS: SODIUM BICARBONATE 8.4% VIAL 150 MEQ in 1/2 NS IV SOLUTION 1,000 ML IV SCH (23:45)
[2020-01-10] VITALS (12 sets, daily range): BP systolic 98–115; BP diastolic 36–58
[2020-01-10] MEDS ORDERED: POTASSIUM BICARB 20 MEQ (EFFER-K) TABLET PO ONE (02:00)
[2020-01-10 02:48] LABS: BASOPHILS % (AUTO) 0 % (0-10); EOSINOPHILS # (AUTO) 0.1 10^3/uL (0.0-0.3); EOSINOPHILS % (AUTO) 1 % (0-10); HEMATOCRIT 30 % (35-52); HEMOGLOBIN 9.5 G/DL (11.5-16.0); LYMPHOCYTES # (AUTO) 3.6 X 10^3 (1.0-4.0); LYMPHOCYTES % (AUTO) 21 % (12-44); MEAN CORPUSCULAR HEMOGLOBIN 27 PG (25-34); MEAN CORPUSCULAR HGB CONC 32 G/DL (32-36); MEAN CORPUSCULAR VOLUME 86 FL (80-99); MONOCYTES # (AUTO) 1.3 X 10^3 (0.0-1.0); MONOCYTES % (AUTO) 7 % (0-12); NEUTROPHILS # (AUTO) 12.3 X 10^3 (1.8-7.8); NEUTROPHILS % (AUTO) 71 % (42-75); PLATELET COUNT 192 10^3/uL (130-400); RED CELL DISTRIBUTION WIDTH 17.4 % (10.0-14.5); WHITE BLOOD COUNT 17.2 10^3/uL (4.3-11.0)
[2020-01-10 03:00] LABS: CALCIUM 7.9 MG/DL (8.5-10.1); CREATININE SERUM 6.71 MG/DL (0.60-1.30); MAGNESIUM 1.9 MG/DL (1.6-2.4); PHOSPHORUS 5.7 MG/DL (2.3-4.7); POTASSIUM 3.1 MMOL/L (3.6-5.0)
[2020-01-10] MEDS: NOREPINEPHRINE 4 MG/250 ML 250 ML IV SCH ×2 (03:18→09:02)
[2020-01-10] MEDS ORDERED: LOPERAMIDE 2 MG (IMODIUM) TABLET ONE (03:46)
[2020-01-10] MEDS: inSUlin ASPART (NovoLOG) 1 UNIT/0.01 ML (CHARGE PER UNIT) SC SCH ×2 (05:09→10:51)
--- NOTE | 2020-01-10 05:36 | Pulmonary Consultation ---
History of Present Illness History of Present Illness Date Seen by Provider: Jan 10, 2020 Time Seen by Provider: 05:29 Date of Admission Allergies and Home Medications Allergies Coded Allergies: Penicillins (Verified Allergy, Unknown, Pt has received Ceftriaxone in the past, 05/13/18) influenza virus vaccine, specific (Verified Adverse Reaction, Unknown, Not allergic just won't take Flu vaccine, 05/13/18) Home Medications Acetaminophen 500 Mg Tablet, 500 MG PO Q6H PRN for PAIN-MILD, (Reported) Albuterol Sulfate 18 Gm Hfa.aer.ad, 2 PUFF INH Q4H PRN for SHORTNESS OF BREATH, (Reported) Amitriptyline HCl 25 Mg Tablet, 25 MG PO HS, (Reported) Atorvastatin Calcium 40 Mg Tablet, 40 MG PO HS, (Reported) Cephalexin 500 Mg Capsule, 500 MG PO BID Prescribed by: SUHA TAYLOR on 01/01/20 1051 Cholestyramine (with Sugar) 4 Gm Powd.pack, 4 GM PO TID PRN for DIARRHEA, (Reported) Cyclosporine 1 Each Droperette, 1 DROP OU BID, (Reported) Fluticasone/Salmeterol 1 Each Blst.w.dev, 2 PUFF IH HS, (Reported) Furosemide 40 Mg Tablet, 40 MG PO DAILY, (Reported) Insulin Aspart 100 Unit/1 Ml Susp, UNITS SC TIDWM, (Reported) USE PER SLIDING SCALE WITH A MAX OF 50 UNITS PER DAY Insulin Degludec 100 Unit/1 Ml Insuln.pen, 36 UNIT SQ HS, (Reported) Levothyroxine Sodium 125 Mcg Tablet, 125 MCG PO DAILY, (Reported) Loperamide HCl 2 Mg Capsule, 2 MG PO TID PRN for diarrhea Prescribed by: SUHA TAYLOR on 01/01/20 1051 Loratadine 10 Mg Tablet, 10 MG PO DAILY, (Reported) Metoprolol Succinate 25 Mg Tab.er.24h, 25 MG PO BID, (Reported) Mirabegron 25 Mg Tab.er.24h, 25 MG PO DAILY, (Reported) Niacin 1,000 Mg Tab.er.24h, 1,000 MG PO HS, (Reported) Olmesartan Medoxomil 20 Mg Tablet, 10 MG PO DAILY, (Reported) TAKES 1/2 (20MG) TABLET Omeprazole 40 Mg Capsule.dr, 40 MG PO DAILY, (Reported) Pregabalin 100 Mg Capsule, 100 MG PO 0800,1500,2100, (Reported) Sertraline HCl 50 Mg Tablet, 50 MG PO DAILY, (Reported) Tiotropium [place] 1 Inh Aerp, 1 CAP IH HS, (Reported) Triamcinolone Acet 15 Gm Cr, 1 APPLIC TP BID, (Reported) Past Hgmcucq-Ssmixr-Qmgxsi Hx Patient Social History Alcohol Use: Denies Use Recreational Drug Use: No Smoking Status: Never a Smoker 2nd Hand Smoke Exposure: No Recent Foreign Travel: No Contact w/Someone Who Travel: No Recent Infectious Disease Expo: No Recent Hopitalizations: No Immunizations Up To Date Tetanus Booster (TDap): Unknown Date of Pneumonia Vaccine: Aug 28, 2012 Seasonal Allergies Seasonal Allergies: Yes Past Medical History Surgeries: Yes (CATARACTS, BILAT KNEE REPLACEMENT,BKA, R arm fx) Appendectomy, Coronary Stent, Eye Surgery, Hysterectomy, Joint Replacement, Orthopedic, Tonsillectomy Respiratory: Yes Sleep Apnea Currently Using CPAP: Yes (with oxygen) Currently Using BIPAP: No Cardiac: Yes (STENTS) Coronary Artery Disease, High Cholesterol, Hypertension Neurological: Yes Dementia 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 Disorders: No Female 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 Disorders: Denies [employer] History: Menopausal Sexually Transmitted Disease: No HIV/AIDS: No Genitourinary: Yes Kidney Infection, Bladder Infection, Renal Failure, UTI-Chronic Gastrointestinal: Yes Gastroesophageal Reflux, Chronic Constipation, Polyps, Hiatal Hernia Musculoskeletal: Yes Amputee, Arthritis Endocrine: Yes Diabetes, Insulin dep, Hypothyroidsim HEENT: Yes (GLASSES) Cataract Loss of Vision: Bilateral Hearing Impairment: Denies Cancer: No Psychosocial: Yes Anxiety, Depression Integumentary: No Recent Skin Changes Blood Disorders: Yes (ANEMIA) Adverse Reaction/Blood Tranf: No Family Medical History Arthritis Cardiovascular disease Diabetes mellitus Hypertension Diabetes, Hypertension Sepsis Event Evaluation Height, Weight, BMI Height: 5'7.00" Weight: 182lbs. 0oz. 82.635683zu; 28.83 BMI Method:Stated Exam Exam Vital Signs Date Time Temp Pulse Resp B/P (MAP) Pulse Ox O2 Delivery O2 Flow Rate FiO2 01/10/20 05:00 74 17 106/44 (64) 98 Room Air 01/10/20 04:00 36.3 01/10/20 04:00 75 17 111/49 (69) 98 Room Air 6/15/20 03:18 75 106/52 01/10/20 03:00 75 20 106/52 (70) 98 Room Air 01/10/20 02:00 77 21 101/43 (62) 99 Room Air 01/10/20 01:00 80 01/10/20 01:00 77 17 107/58 (74) 100 Room Air 01/10/20 00:00 80 17 115/51 (72) 100 Room Air 01/10/20 00:00 Room Air 01/09/20 23:46 37.0 01/09/20 23:00 80 18 119/54 (75) 100 Room Air 01/09/20 22:00 81 22 117/64 (81) 100 Room Air 01/09/20 21:00 83 17 100/77 (85) 100 Room Air 01/09/20 20:00 36.3 01/09/20 20:00 36.6 86 18 113/40 (64) 99 Room Air 01/09/20 20:00 Room Air 01/09/20 19:00 82 14 116/61 (79) 100 Room Air 01/09/20 19:00 80 01/09/20 18:00 80 17 118/43 (68) 96 Room Air 01/09/20 17:50 86 01/09/20 17:04 79 89/38 01/09/20 17:00 80 13 121/52 (75) 99 Room Air 01/09/20 16:45 75 103/69 (80) Room Air 01/09/20 16:23 80 18 106/60 98 01/09/20 16:11 74 98/47 01/09/20 15:27 71 18 96/47 (63) 95 01/09/20 14:05 75 18 66/33 (44) 96 Room Air I & O 01/10/20 07:00 Intake Total 5140 ml Output Total 330 ml Balance 4810 ml Height & Weight Height: 5'7.00" Weight: 182lbs. 0oz. 82.812215lb; 28.83 BMI Method:Stated General Appearance: WD/WN, Other (lethargic, blood pressure 66/33 initially, repeat blood pressures are 73/50. Only one small peripheral IV access could be obtained. As such did go ahead and place a central line in the right internal jugular under ultrasound guidance.) HEENT: PERRL/EOMI, TMs Normal Neck: Full Range of Motion, Normal Inspection Respiratory: No Accessory Muscle Use, No Respiratory Distress Cardiovascular: Regular Rate, Rhythm, Normal Peripheral Pulses Capillary Refill: Less Than 3 Seconds Extremity: Normal Capillary Refill, Normal Inspection Neurologic/Psychiatric: Alert, Oriented x3 Skin: Normal Color, Warm/Dry Results Lab Laboratory Tests 01/09/20 14:40 01/09/20 19:58 01/10/20 02:26 Assessment/Plan Assessment/Plan Severe dehydration -IVF - currently bicarb at 125 with 3 amps of bicarb and 1/2 NS -Give liter bolus of LR Acute Renal failure with metabolic acidosis -Currently on Bicarb gtt increase to 150 -IVF -Avoid nephrotoxic meds -Pt may need to be transferred for nephrology support. -Repeat labs 11:00 Sepsis -IVF -Song culture -Continue Abx Hypotension - Hypovolemic shock --Continue IVF -Levophed is now off Diarrhea - -Persistent -Cultures pending -Currently on PO vanco and IV Flagmiley and AR Jewell DO Jan 10, 2020 05:36
[2020-01-10] MEDS ORDERED: ENOXAPARIN 40 MG/0.4 ML (LOVENOX) SYR SC SCH (05:45)
[2020-01-10] MEDS ORDERED: LACTATED RINGERS 1,000 ML IV SCH (05:45)
[2020-01-10] MEDS: POTASSIUM CL 10MEQ/50ML IVPB 50 ML IV SCH ×2 (06:02→07:12)
[2020-01-10] MEDS: metroNIDAZOLE 500 MG/100 ML IVPB (PRE-MIX) IV SCH (06:06)
--- NOTE | 2020-01-10 07:29 | Diagnostic Imaging Report ---
INDICATION: Dyspnea, hypovolemic shock. TECHNIQUE: Single view chest 4:53 AM. CORRELATION STUDY: 01/09/2020 FINDINGS: Right IJ central line tip over the upper mediastinal region, stable. Heart size remains enlarged. Vasculature slightly prominent. There appears to be some increasing infiltrate or edema at the right upper lung field. Additional density in the right lung apex likely large decubitus overlapping summation shadows. Clips in the soft tissue of the neck on the left. IMPRESSION: 1. Vasculature has increased slightly since prior study could reflect early fluid overload or developing failure. 2. Developing infiltrate and/or asymmetric edema in the right perihilar and upper lobe distribution as well. Followup imaging recommended. Dictated by: Dictated on workstation # [id number]
[2020-01-10] MEDS ORDERED: CALCIUM ACETATE 667 MG CAP (PHOSLO) PO SCH (08:00)
--- NOTE | 2020-01-10 08:28 | Short Stay Summary-Hospitalist ---
History of Present Illness HPI/Chief Complaint Pt is an 84yoCF with a PMH of Charcot foot s/p amputation, HTN, a-fib, IDDMII, hypothyroidism, PVD, and recurrent UTI who was admitted due to hypovolemic shock. She has been havign diarrhea for roughly 8-9 weeks and was actually admitted last week with similar symptoms. She was given IVF and improved during his last admission. She was treated with an antibiotic for a UTI as well. She had negative c diff testing and during her admission her diarrhea had stopped with imodium. She was discahrged home on 01/01 and then on 01/03 her diarrhea started again despite continued imodium. She was seen at [facility] walk in clinic yesterday and was found to be lethargic and hypotensive so sent to the ER. She was given IVF and a central line was placed for pressors. She had an elevated creatinine of 6.9 but hopes were that this was just from hypovolemia. She also had a profound metabolic acidosis with bicarb of 6. She was treated with a bicarb gtt but despite this her creatinine only improved to 6.7 and her bicarb remained 6. She did feel better this morning though. We discussed options regarding dialysis due to acidosis and she agreed to transfer for nephrology evaluation. Source: patient Date Seen 01/10/20 Time Seen by a Provider: 08:28 Attending Physician Vale Lucas MD PCP Andres Bui MD Referring Physician Date of Admission Jan 09, 2020 at 15:28 Home Medications & Allergies Home Medications Reviewed patient Home Medication Reconciliation performed by pharmacy medication reconciliations clinical office technician and/or nursing. Patients Allergies have been reviewed. Allergies Allergies Coded Allergies Penicillins (Verified Allergy, Unknown, Pt has received Ceftriaxone in the past, 05/13/18) influenza virus vaccine, specific (Verified Adverse Reaction, Unknown, Not allergic just won't take Flu vaccine, 05/13/18) Past Raweavl-Nfmiym-Ddhbog Hx Past Med/Social Hx: Reviewed Nursing Past Med/Soc Hx Patient Social History Alcohol Use: Denies Use Recreational Drug Use: No Smoking Status: Never a Smoker 2nd Hand Smoke Exposure: No Recent Foreign Travel: No Contact w/other who traveled: No Recent Hopitalizations: No Recent Infectious Disease Expo: No Immunizations Up To Date Tetanus Booster (TDap): Unknown Date of Pneumonia Vaccine: Aug 28, 2012 Seasonal Allergies Seasonal Allergies: Yes Past Medical History Surgeries: Appendectomy, Coronary Stent, Eye Surgery, Hysterectomy, Joint Replacement, Orthopedic, Tonsillectomy Respiratory: Sleep Apnea Currently Using CPAP: Yes (with oxygen) Currently Using BIPAP: No Cardiac: Coronary Artery Disease, High Cholesterol, Hypertension Neurological: Dementia SDH 09/03/17 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: No Sexually Transmitted Disease: No HIV/AIDS: No Female 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 Disorders: Denies Menopausal Genitourinary: Kidney Infection, Bladder Infection, Renal Failure, UTI-Chronic Gastrointestinal: Gastroesophageal Reflux, Chronic Constipation, Polyps, Hiatal Hernia Musculoskeletal: Amputee, Arthritis Endocrine: Diabetes, Insulin dep, Hypothyroidsim HEENT: Cataract Loss of Vision: Bilateral Hearing Impairment: Denies Psychosocial: Anxiety, Depression Skin/Integumentary: Recent Skin Changes History of Blood Disorders: Yes (ANEMIA) Adverse Reaction to Blood Herrera: No Family History Arthritis Cardiovascular disease Diabetes mellitus Hypertension Diabetes, Hypertension Review of Systems Constitutional: No chills, No fever; malaise, weakness EENTM: no symptoms reported Respiratory: no symptoms reported; No cough, No short of breath Cardiovascular: no symptoms reported Gastrointestinal: abdominal pain (bloated), diarrhea Genitourinary: No decreased output, No dysuria Musculoskeletal: no symptoms reported Skin: no symptoms reported Psychiatric/Neurological: No Symptoms Reported Physical Exam Physical Exam Vital Signs Vital Signs - First Documented 01/09/20 14:05 Pulse 75 Resp 18 B/P (MAP) 66/33 (44) Pulse Ox 96 O2 Delivery Room Air Capillary Refill : Less Than 3 Seconds Height, Weight, BMI Height: 5'7.00" Weight: 182lbs. 0oz. 82.564710cm; 28.83 BMI Method:Stated General Appearance: No Apparent Distress, WD/WN, Chronically ill, Other HEENT: PERRL/EOMI, Moist Mucous Membranes; No Scleral Icterus (L), No Scleral Icterus (R) Neck: Normal Inspection, Supple Respiratory: Lungs Clear, No Accessory Muscle Use, No Respiratory Distress Cardiovascular: Regular Rate, Rhythm, Normal Peripheral Pulses Gastrointestinal: Normal Bowel Sounds, Soft, Distended (mild, nontender); No Tenderness Extremity: Normal Capillary Refill, Normal Inspection, Non Tender, Other (s/p foot amputation) Neurologic/Psychiatric: Alert, Oriented x3, Normal Mood/Affect Skin: Normal Color, Warm/Dry Results Results/Procedures Labs Laboratory Tests 01/09/20 14:40 01/09/20 19:58 01/10/20 02:26 Patient resulted labs reviewed. Imaging: Reviewed Imaging Report Imaging [facility] [place], [place] NAME: CARLOS SERRA [employer] REC#: [id number] PT STATUS: ADM IN : 1935 PHYSICIAN: VALE LUCAS MD ADMIT DATE: 01/09/20/ICU Signed Date of Exam:01/10/20 CHEST 1 VIEW, AP/PA ONLY INDICATION: Dyspnea, hypovolemic shock. TECHNIQUE: Single view chest 4:53 AM. CORRELATION STUDY: 01/09/2020 FINDINGS: Right IJ central line tip over the upper mediastinal region, stable. Heart size remains enlarged. Vasculature slightly prominent. There appears to be some increasing infiltrate or edema at the right upper lung field. Additional density in the right lung apex likely large decubitus overlapping summation shadows. Clips in the soft tissue of the neck on the left. IMPRESSION: 1. Vasculature has increased slightly since prior study could reflect early fluid overload or developing failure. 2. Developing infiltrate and/or asymmetric edema in the right perihilar and upper lobe distribution as well. Followup imaging recommended. Short Stay Diagnosis Discharge Diagnosis-Short Stay Admission Diagnosis Hypovolemic Shock Acute on Chronic Kidney Disease Final Discharge Diagnosis Hypovolemic Shock Acute on Chronic Kidney Disease Conclusion Plan Hypovolemic Shock Acute on Chronic Kidney Disease Now off pressors Continue on bicarb gtt Creatinine 6.9-6.71 Discussed with Ramandeep Mcbride who accepted patient in transfer for nephrology evaluation and possible dialysis I did call and discuss plan with her daughter and son in law who are in agree ment with plan Clinical Quality Measures DVT/VTE Risk/Contraindication: Risk Factor Score Per Nursin RFS Level Per Nursing on Admit: 4+=Very High SUHA TAYLOR MD Jan 10, 2020 08:28
[2020-01-10] MEDS: SODIUM BICARBONATE 8.4% VIAL 150 MEQ in 1/2 NS IV SOLUTION 1,000 ML IV SCH (09:01)
[2020-01-10] MEDS: VANCOMYCIN 50 MG/ML ORAL SOLN 150 ML PO SCH (09:02)
--- NOTE | 2020-01-10 10:40 | NUR ---
REPORT CALLED TO EMILIA VIDAL AT [facility].
--- NOTE | 2020-01-10 11:31 | Consultation - Surgery ---
History of Present Illness History of Present Illness Patient Consulted On(kelly/time) 01/10/20 11:29 Time Seen by Provider: 11:02 History of Present Illness Surgery asked to consult regarding Hypotension, Elevated WBC and diarrhea. HPI per ED: To all [facility] walk-in clinic with reports of diarrhea and hypotension. She's had diarrhea frequently for nearly 8 weeks. She was admitted recently for this, had colonoscopy with biopsies done during that admission.She was noted to be hypotensive at 70's/50s with lethargy at [facility] which prompted transfer to ER. Colonoscopy brushing cytology report showed no malignant cells, numerous fungal yeast with few pseudohyphae suggestive of donnell, biopsy showed focal active colitis with differential including infectious colitis, adverse drug effect or bowel preparation artifact. Timing/Duration: 1-2 Days Severity: Moderate Associated Systoms: No Fever/Chills, No Nausea/Vomiting When I saw pt she stated she wasn't feeling as bad; actually about to get transferred to [facility] for Dialysis. Allergies and Home Medications Allergies Coded Allergies: Penicillins (Verified Allergy, Unknown, Pt has received Ceftriaxone in the past, 05/13/18) influenza virus vaccine, specific (Verified Adverse Reaction, Unknown, Not allergic just won't take Flu vaccine, 05/13/18) Home Medications Acetaminophen 500 Mg Tablet, 500 MG PO Q6H PRN for PAIN-MILD, (Reported) Albuterol Sulfate 18 Gm Hfa.aer.ad, 2 PUFF INH Q4H PRN for SHORTNESS OF BREATH, (Reported) Amitriptyline HCl 25 Mg Tablet, 25 MG PO HS, (Reported) Atorvastatin Calcium 40 Mg Tablet, 40 MG PO HS, (Reported) Cephalexin 500 Mg Capsule, 500 MG PO BID Prescribed by: SUHA TAYLOR on 01/01/20 1051 Cholestyramine (with Sugar) 4 Gm Powd.pack, 4 GM PO TID PRN for DIARRHEA, (Reported) Cyclosporine 1 Each Droperette, 1 DROP OU BID, (Reported) Fluticasone/Salmeterol 1 Each Blst.w.dev, 2 PUFF IH HS, (Reported) Furosemide 40 Mg Tablet, 40 MG PO DAILY, (Reported) Insulin Aspart 100 Unit/1 Ml Susp, UNITS SC TIDWM, (Reported) USE PER SLIDING SCALE WITH A MAX OF 50 UNITS PER DAY Insulin Degludec 100 Unit/1 Ml Insuln.pen, 36 UNIT SQ HS, (Reported) Levothyroxine Sodium 125 Mcg Tablet, 125 MCG PO DAILY, (Reported) Loperamide HCl 2 Mg Capsule, 2 MG PO TID PRN for diarrhea Prescribed by: SUHA TAYLOR on 01/01/20 1051 Loratadine 10 Mg Tablet, 10 MG PO DAILY, (Reported) Metoprolol Succinate 25 Mg Tab.er.24h, 25 MG PO BID, (Reported) Mirabegron 25 Mg Tab.er.24h, 25 MG PO DAILY, (Reported) Niacin 1,000 Mg Tab.er.24h, 1,000 MG PO HS, (Reported) Olmesartan Medoxomil 20 Mg Tablet, 10 MG PO DAILY, (Reported) TAKES 1/2 (20MG) TABLET Omeprazole 40 Mg Capsule.dr, 40 MG PO DAILY, (Reported) Pregabalin 100 Mg Capsule, 100 MG PO 0800,1500,2100, (Reported) Sertraline HCl 50 Mg Tablet, 50 MG PO DAILY, (Reported) Tiotropium [place] 1 Inh Aerp, 1 CAP IH HS, (Reported) Triamcinolone Acet 15 Gm Cr, 1 APPLIC TP BID, (Reported) Patient Home Medication List Home Medication List Reviewed: Yes Past Fiqfkmn-Oxjetz-Bscshb Hx Patient Social History Alcohol Use: Denies Use Recreational Drug Use: No Smoking Status: Never a Smoker 2nd Hand Smoke Exposure: No Recent Foreign Travel: No Contact w/Someone Who Travel: No Recent Infectious Disease Expo: No Recent Hopitalizations: No Immunizations Up To Date Tetanus Booster (TDap): Unknown Date of Pneumonia Vaccine: Aug 28, 2012 Seasonal Allergies Seasonal Allergies: Yes Surgeries History of Surgeries: Yes (CATARACTS, BILAT KNEE REPLACEMENT,BKA, R arm fx) Surgeries: Appendectomy, Coronary Stent, Eye Surgery, Hysterectomy, Joint Replacement, Orthopedic, Tonsillectomy Respiratory History of Respiratory Disorde: Yes Respiratory Disorders: Sleep Apnea Cardiovascular History of Cardiac Disorders: Yes (STENTS) Cardiac Disorders: Coronary Artery Disease, High Cholesterol, Hypertension Neurological History of Neurological Disord: Yes Neurological Disorders: Dementia 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 System Hx 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 Disorders: No Sexually Transmitted Disease: No HIV/AIDS: No Female 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 Disorders: Denies 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 Genitourinary History of Genitourinary Disor: Yes Genitourinary Disorders: Kidney Infection, Bladder Infection, Renal Failure, UT I-Chronic Gastrointestinal History of Gastrointestinal Di: Yes Gastrointestinal Disorders: Gastroesophageal Reflux, Chronic Constipation, Polyps, Hiatal Hernia Musculoskeletal History of Musculoskeletal Dis: Yes Musculoskeletal Disorders: Amputee, Arthritis Endocrine History of Endocrine Disorders: Yes Endocrine Disorders: Diabetes, Insulin dep, Hypothyroidsim HEENT History of HEENT Disorders: Yes (GLASSES) HEENT Disorders: Cataract Loss of Vision: Bilateral Hearing Impairment: Denies Cancer History of Cancer: No Psychosocial History of Psychiatric Problem: Yes Behavioral Health Disorders: Anxiety, Depression Integumentary History of Skin or Integumenta: No Skin/Integumentary Disorders: Recent Skin Changes Blood Transfusions History of Blood Disorders: Yes (ANEMIA) Adverse Reaction to a Blood Tr: No Family Medical History Significant Family History: Diabetes, Hypertension Family Medial History: Arthritis Cardiovascular disease Diabetes mellitus Hypertension Review of Systems-General Constitutional: fever, malaise, weakness EENTM: No blurred vision, No double vision, No mouth pain, No mouth swelling Respiratory: No cough, No dyspnea on exertion Cardiovascular: No chest pain, No palpitations Gastrointestinal: abdominal pain, diarrhea; No hematemesis, No jaundice Genitourinary: No dysuria; frequency; No hematuria Musculoskeletal: joint pain, joint swelling, muscle stiffness Skin: No change in color, No change in hair/nails Psychiatric/Neurological: Anxiety, Depressed; Denies Seizure, Denies Tremors Physical Exam-General Problems Physical Exam Vital Signs Vital Signs - First Documented 01/09/20 14:05 Pulse 75 Resp 18 B/P (MAP) 66/33 (44) Pulse Ox 96 O2 Delivery Room Air Capillary Refill : Less Than 3 Seconds General Appearance: mild distress, obese Eyes: Bilateral Eye PERRL, Bilateral Eye EOMI HEENT: pharynx normal; No scleral icterus (R) Neck: non-tender, supple Respiratory: lungs clear, normal breath sounds, no respiratory distress, no accessory muscle use Cardiovascular: regular rate, rhythm, no murmur Gastrointestinal: soft, no organomegaly, tenderness (mild diffusely with palpation) Back: no CVA tenderness, no vertebral tenderness Extremities: no calf tenderness, normal capillary refill Neurologic/Psychiatric: 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, alert Skin: normal color, warm/dry Lymphatic: no adenopathy (neck, axilla or groin) Data Review Labs Laboratory Tests 01/09/20 14:40: White Blood Count 27.3H, Red Blood Count 4.06L, Hemoglobin 10.9L, Hematocrit 35, Mean Corpuscular Volume 86, Mean Corpuscular Hemoglobin 27, Mean Corpuscular Hemoglobin Concent 31L, Red Cell Distribution Width 18.0H, Platelet Count 315, Mean Platelet Volume 10.2, Neutrophils (%) (Auto) 76H, Lymphocytes (%) (Auto) 19, Monocytes (%) (Auto) 6, Eosinophils (%) (Auto) 0, Basophils (%) (Auto) 0, Neutrophils # (Auto) 20.6H, Lymphocytes # (Auto) 5.1H, Monocytes # (Auto) 1.6H, Eosinophils # (Auto) 0.0, Basophils # (Auto) 0.0, Neutrophils % (Manual) 62, Lymphocytes % (Manual) 27, Monocytes % (Manual) 3, Band Neutrophils 8, Toxic Granulation 2+, Polychromasia SLIGHT, Anisocytosis SLIGHT, Microcytosis SLIGHT, Sodium Level 135, Potassium Level 3.7, Chloride Level 112H, Carbon Dioxide Level 6*L, Anion Gap 17H, Blood Urea Nitrogen 51H, Creatinine 6.90H, Estimat Glomerular Filtration Rate 6, BUN/Creatinine Ratio 7, Glucose Level 169H, Calcium Level 9.0, Corrected Calcium 8.9, Total Bilirubin 0.4, Aspartate Amino Transf (AST/SGOT) 19, Alanine Aminotransferase (ALT/SGPT) 22, Alkaline Phosphatase 135, Total Protein 7.3, Albumin 4.1 01/09/20 14:48: Procalcitonin 0.74H 01/09/20 15:15: Lactic Acid Level 1.36 01/09/20 15:36: Urine Color YELLOW, Urine Clarity CLOUDY, Urine pH 5.0, Urine Specific Lorim[place] >=1.030, Urine Protein 3+H, Urine Glucose (UA) NEGATIVE, Urine Ketones NEGATIVE, Urine Nitrite NEGATIVE, Urine Bilirubin NEGATIVE, Urine Urobilinogen 0.2, Urine Leukocyte Esterase 1+H, Urine RBC (Auto) TRACE-L, Urine RBC 10-25H, Urine WBC 50-100H, Urine Crystals PRESENTH, Urine Amorphous Sediment MOD DENNIS URATESH, Ur ine Bacteria LARGEH, Urine Casts NONE, Urine Mucus NEGATIVE, Urine Yeast MODERATEH, Urine Culture Indicated YES 01/09/20 19:58: Sodium Level 137, Potassium Level 3.4L, Chloride Level 113H, Carbon Dioxide Level 6*L, Anion Gap 18H, Blood Urea Nitrogen 49H, Creatinine 6.74H, Estimat Glomerular Filtration Rate 6, BUN/Creatinine Ratio 7, Glucose Level 181H, Calcium Level 8.4L, Magnesium Level 1.7 01/09/20 20:29: Glucometer 157H 01/10/20 02:26: Sodium Level 138, Potassium Level 3.1L, Chloride Level 115H, Carbon Dioxide Level 6*L, Anion Gap 17H, Blood Urea Nitrogen 48H, Creatinine 6.71H, Estimat Glomerular Filtration Rate 6, BUN/Creatinine Ratio 7, Glucose Level 120H, Calcium Level 7.9L, Magnesium Level 1.9, White Blood Count 17.2H, Red Blood Count 3.52L, Hemoglobin 9.5L, Hematocrit 30L, Mean Corpuscular Volume 86, Mean Corpuscular Hemoglobin 27, Mean Corpuscular Hemoglobin Concent 32, Red Cell Dist ribution Width 17.4H, Platelet Count 192, Mean Platelet Volume 10.0, Neutrophils (%) (Auto) 71, Lymphocytes (%) (Auto) 21, Monocytes (%) (Auto) 7, Eosinophils (%) (Auto) 1, Basophils (%) (Auto) 0, Neutrophils # (Auto) 12.3H, Lymphocytes # (Auto) 3.6, Monocytes # (Auto) 1.3H, Eosinophils # (Auto) 0.1, Basophils # (Auto) 0.0, Phosphorus Level 5.7H 01/10/20 10:30: Glucometer 145H Microbiology 01/09/20 C. difficile GDH Antigen & Toxins - Final, Complete 01/09/20 Urine Culture - Preliminary, Resulted YEAST Assessment/Plan Assessment/Plan Assessment/Plan Hypotension Diarrhea UTI Renal Failure Pt has been in and out of hospital over the past couple of weeks; with chronic diarrhea, hypotension, abdominal pain. She was found to be hypotensive and sent to ER yesterday. In ER labs showed renal failure. C. diff continues to come back negative; there was some donnell found in intestinal specimen (could just be normal daniela). In addition she had yeast in her urine and was started on some Diflucan last night. Unfortunately, she is in renal failure and is going to need dialysis and is being sent to [facility] for this. Clinical Quality Measures DVT/VTE Risk/Contraindication: Risk Factor Score Per Nursin RFS Level Per Nursing on Admit: 4+=Very High LINDA MCCARTNEY DO Jan 10, 2020 11:31
[2020-01-10] MEDS ORDERED: cefTRIAXone 1,000 MG/SWFI 10 ML IV PUSH IV SCH ×2 (16:00)
[2020-01-11] MEDS ORDERED: ENOXAPARIN 30 MG/0.3 ML (LOVENOX) SYR SC SCH (06:00)
== END 2020-01-10 11:40 | disposition short-term general hospital (02) | DRG 871 ==
LOC: EDUNIT# 14:00 → ER 14:01 → ICU 15:28
PROVIDERS: ADMIT Internal Medicine; ATTEND Internal Medicine
PROC: 02HV33Z Insertion of Infusion Device into Superior Vena Cava, Percutaneous Approach (ICD-10-PCS; principal; 2020-01-09)
DX: A41.9 Sepsis, unspecified organism (principal); R57.1 Hypovolemic shock; N17.9 Acute kidney failure, unspecified; E87.2 Acidosis; B37.49 Other urogenital candidiasis; K52.9 Noninfective gastroenteritis and colitis, unspecified; I12.9 Hypertensive chronic kidney disease with stage 1 through stage 4 chronic kidney disease, or unspecified chronic kidney disease; N18.9 Chronic kidney disease, unspecified; I48.91 Unspecified atrial fibrillation; E11.9 Type 2 diabetes mellitus without complications; F03.90 Unspecified dementia, unspecified severity, without behavioral disturbance, psychotic disturbance, mood disturbance, and anxiety; K21.9 Gastro-esophageal reflux disease without esophagitis; K44.9 Diaphragmatic hernia without obstruction or gangrene; G47.30 Sleep apnea, unspecified; F41.9 Anxiety disorder, unspecified; F32.9 Major depressive disorder, single episode, unspecified; I25.10 Atherosclerotic heart disease of native coronary artery without angina pectoris; E03.9 Hypothyroidism, unspecified; E78.00 Pure hypercholesterolemia, unspecified; M19.91 Primary osteoarthritis, unspecified site; Z89.519 Acquired absence of unspecified leg below knee; Z79.4 Long term (current) use of insulin; Z95.5 Presence of coronary angioplasty implant and graft; Z90.710 Acquired absence of both cervix and uterus; Q34.9 Congenital malformation of respiratory system, unspecified; Z90.89 Acquired absence of other organs
CPT/HCPCS: 36415; 51702; 71045; 74176; 80048; 80053; 81000; 82962; 83605; 83735; 84100; 84145; 85007; 85025; 85027; 87040; 87081; 87088; 87324; 87449

== ENCOUNTER 2020-02-16 11:56 | Outpatient (RCR) | payer MEDICARE, MEDICAID ==
[2019-11-30 10:47] LABS: BASOPHILS # (AUTO) 0.1 10^3/uL (0.0-0.1); BASOPHILS % (AUTO) 1 % (0-10); EOSINOPHILS # (AUTO) 0.3 10^3/uL (0.0-0.3); EOSINOPHILS % (AUTO) 3 % (0-10); HEMATOCRIT 35 % (35-52); HEMOGLOBIN 11.2 G/DL (11.5-16.0); LYMPHOCYTES # (AUTO) 2.5 X 10^3 (1.0-4.0); LYMPHOCYTES % (AUTO) 26 % (12-44); MEAN CORPUSCULAR HEMOGLOBIN 27 PG (25-34); MEAN CORPUSCULAR HGB CONC 32 G/DL (32-36); MEAN CORPUSCULAR VOLUME 84 FL (80-99); MEAN PLATELET VOLUME 9.9 FL (7.4-10.4); MONOCYTES # (AUTO) 0.6 X 10^3 (0.0-1.0); MONOCYTES % (AUTO) 7 % (0-12); NEUTROPHILS # (AUTO) 6.1 X 10^3 (1.8-7.8); NEUTROPHILS % (AUTO) 64 % (42-75); PLATELET COUNT 162 10^3/uL (130-400); RED CELL DISTRIBUTION WIDTH 16.7 % (10.0-14.5); WHITE BLOOD COUNT 9.5 10^3/uL (4.3-11.0)
[2019-12-21 13:09] LABS: BASOPHILS % (AUTO) 1 % (0-10); EOSINOPHILS # (AUTO) 0.3 10^3/uL (0.0-0.3); EOSINOPHILS % (AUTO) 4 % (0-10); HEMATOCRIT 31 % (35-52); HEMOGLOBIN 10.2 G/DL (11.5-16.0); LYMPHOCYTES # (AUTO) 2.1 X 10^3 (1.0-4.0); LYMPHOCYTES % (AUTO) 27 % (12-44); MEAN CORPUSCULAR HEMOGLOBIN 27 PG (25-34); MEAN CORPUSCULAR HGB CONC 33 G/DL (32-36); MEAN CORPUSCULAR VOLUME 83 FL (80-99); MEAN PLATELET VOLUME 9.9 FL (7.4-10.4); MONOCYTES # (AUTO) 0.7 X 10^3 (0.0-1.0); MONOCYTES % (AUTO) 9 % (0-12); NEUTROPHILS # (AUTO) 4.7 X 10^3 (1.8-7.8); NEUTROPHILS % (AUTO) 60 % (42-75); PLATELET COUNT 142 10^3/uL (130-400); RED CELL DISTRIBUTION WIDTH 17.5 % (10.0-14.5); WHITE BLOOD COUNT 7.9 10^3/uL (4.3-11.0)
[2019-12-21 13:42] LABS: BILIRUBIN,TOTAL 0.5 MG/DL (0.1-1.0); CALCIUM 9.8 MG/DL (8.5-10.1); CREATININE SERUM 1.73 MG/DL (0.60-1.30); POTASSIUM 4.3 MMOL/L (3.6-5.0)
[2020-02-01 14:27] LABS: BASOPHILS # (AUTO) 0.1 10^3/uL (0.0-0.1); BASOPHILS % (AUTO) 1 % (0-10); EOSINOPHILS # (AUTO) 0.5 10^3/uL (0.0-0.3); EOSINOPHILS % (AUTO) 6 % (0-10); HEMATOCRIT 28 % (35-52); LYMPHOCYTES # (AUTO) 2.2 X 10^3 (1.0-4.0); LYMPHOCYTES % (AUTO) 26 % (12-44); MEAN CORPUSCULAR HEMOGLOBIN 28 PG (25-34); MEAN CORPUSCULAR HGB CONC 32 G/DL (32-36); MEAN CORPUSCULAR VOLUME 87 FL (80-99); MEAN PLATELET VOLUME 9.8 FL (7.4-10.4); MONOCYTES # (AUTO) 0.6 X 10^3 (0.0-1.0); MONOCYTES % (AUTO) 7 % (0-12); NEUTROPHILS # (AUTO) 5.2 X 10^3 (1.8-7.8); NEUTROPHILS % (AUTO) 61 % (42-75); PLATELET COUNT 155 10^3/uL (130-400); RED CELL DISTRIBUTION WIDTH 18.3 % (10.0-14.5); WHITE BLOOD COUNT 8.5 10^3/uL (4.3-11.0)
[2020-02-14 16:20] LABS: WHITE BLOOD COUNT 8.4 10^3/uL (4.3-11.0)
[2020-02-14 16:21] LABS: HEMATOCRIT 26 % (35-52); LYMPHOCYTES % (AUTO) 24 % (12-44); MEAN CORPUSCULAR HEMOGLOBIN 27 PG (25-34); MEAN CORPUSCULAR HGB CONC 31 G/DL (32-36); MEAN CORPUSCULAR VOLUME 88 FL (80-99); NEUTROPHILS % (AUTO) 65 % (42-75); PLATELET COUNT 149 10^3/uL (130-400); RED CELL DISTRIBUTION WIDTH 17.5 % (10.0-14.5)
[2020-02-14 16:22] LABS: ABSOLUTE RETIC # 36 10e9/L (24-90); BASOPHILS % (AUTO) 1 % (0-10); EOSINOPHILS # (AUTO) 0.4 10^3/uL (0.0-0.3); EOSINOPHILS % (AUTO) 5 % (0-10); MONOCYTES # (AUTO) 0.5 X 10^3 (0.0-1.0); MONOCYTES % (AUTO) 6 % (0-12); NEUTROPHILS # (AUTO) 5.4 X 10^3 (1.8-7.8); RETICULOCYTE % 1.21 % (0.50-2.40)
[~2020-02-16 11:56] MED LIST changes: +MULT-567 PO; -MULT1TAB69 PO
[2020-02-16] MEDS ORDERED: DARBEPOETIN 40 MCG/ML (ARANESP) 1 ML VIAL SC SCH (12:15)
== END 2020-02-28 | disposition home or self-care (01) ==
LOC: ONC 11:56
PROVIDERS: ATTEND Internal Medicine Hematology & Oncology
DX: D50.9 Iron deficiency anemia, unspecified (principal); D63.1 Anemia in chronic kidney disease; N18.4 Chronic kidney disease, stage 4 (severe)
CPT/HCPCS: 80053; 82728; 85025; 85045; 96372; 99213

== ENCOUNTER 2020-06-05 11:14 | Outpatient (RCR) | payer MEDICARE, MEDICAID ==
[2020-03-16 05:33] LABS: HEMATOCRIT 34 % (35-52); HEMOGLOBIN 10.6 G/DL (11.5-16.0); MEAN CORPUSCULAR HEMOGLOBIN 27 PG (25-34); MEAN CORPUSCULAR HGB CONC 32 G/DL (32-36); MEAN CORPUSCULAR VOLUME 87 FL (80-99); WHITE BLOOD COUNT 13.6 10^3/uL (4.3-11.0)
[2020-03-16 05:34] LABS: BASOPHILS % (AUTO) 0 % (0-10); EOSINOPHILS # (AUTO) 0.5 10^3/uL (0.0-0.3); EOSINOPHILS % (AUTO) 4 % (0-10); LYMPHOCYTES # (AUTO) 4.1 X 10^3 (1.0-4.0); LYMPHOCYTES % (AUTO) 30 % (12-44); MEAN PLATELET VOLUME 10.2 FL (7.4-10.4); MONOCYTES # (AUTO) 0.8 X 10^3 (0.0-1.0); MONOCYTES % (AUTO) 6 % (0-12); NEUTROPHILS # (AUTO) 8.2 X 10^3 (1.8-7.8); NEUTROPHILS % (AUTO) 61 % (42-75); PLATELET COUNT 153 10^3/uL (130-400)
[2020-03-16 05:38] LABS: BILIRUBIN,TOTAL 0.4 MG/DL (0.1-1.0); CALCIUM 9.8 MG/DL (8.5-10.1); CREATININE SERUM 1.53 MG/DL (0.60-1.30); POTASSIUM 3.8 MMOL/L (3.6-5.0); TOTAL PROTEIN 7.4 GM/DL (6.4-8.2)
[2020-03-16 05:39] LABS: ALBUMIN 4.2 GM/DL (3.2-4.5)
[2020-04-05 11:42] LABS: BASOPHILS # (AUTO) 0.1 10^3/uL (0.0-0.1); BASOPHILS % (AUTO) 1 % (0-10); EOSINOPHILS # (AUTO) 0.5 10^3/uL (0.0-0.3); EOSINOPHILS % (AUTO) 5 % (0-10); HEMATOCRIT 35 % (35-52); HEMOGLOBIN 10.8 G/DL (11.5-16.0); LYMPHOCYTES # (AUTO) 3.4 X 10^3 (1.0-4.0); LYMPHOCYTES % (AUTO) 35 % (12-44); MEAN CORPUSCULAR HEMOGLOBIN 27 PG (25-34); MEAN CORPUSCULAR HGB CONC 31 G/DL (32-36); MEAN CORPUSCULAR VOLUME 87 FL (80-99); MONOCYTES # (AUTO) 0.5 X 10^3 (0.0-1.0); MONOCYTES % (AUTO) 5 % (0-12); NEUTROPHILS # (AUTO) 5.3 X 10^3 (1.8-7.8); NEUTROPHILS % (AUTO) 54 % (42-75); PLATELET COUNT 111 10^3/uL (130-400); WHITE BLOOD COUNT 9.8 10^3/uL (4.3-11.0)
[2020-04-26 08:36] LABS: BASOPHILS # (AUTO) 0.1 10^3/uL (0.0-0.1); BASOPHILS % (AUTO) 1 % (0-10); EOSINOPHILS # (AUTO) 0.4 10^3/uL (0.0-0.3); EOSINOPHILS % (AUTO) 3 % (0-10); HEMATOCRIT 38 % (35-52); HEMOGLOBIN 11.6 g/dL (11.5-16.0); LYMPHOCYTES # (AUTO) 5.2 10^3/uL (1.0-4.0); LYMPHOCYTES % (AUTO) 36 % (12-44); MEAN CORPUSCULAR HEMOGLOBIN 27 pg (25-34); MEAN CORPUSCULAR HGB CONC 30 g/dL (32-36); MEAN CORPUSCULAR VOLUME 88 fL (80-99); MEAN PLATELET VOLUME 10.1 fL (9.0-12.2); MONOCYTES # (AUTO) 0.9 10^3/uL (0.0-1.0); MONOCYTES % (AUTO) 6 % (0-12); NEUTROPHILS % (AUTO) 55 % (42-75); PLATELET COUNT 120 10^3/uL (130-400); WHITE BLOOD COUNT 14.5 10^3/uL (4.3-11.0)
[2020-05-16 14:28] LABS: BASOPHILS # (AUTO) 0.1 10^3/uL (0.0-0.1); BASOPHILS % (AUTO) 1 % (0-10); EOSINOPHILS # (AUTO) 0.3 10^3/uL (0.0-0.3); EOSINOPHILS % (AUTO) 2 % (0-10); HEMATOCRIT 33 % (35-52); HEMOGLOBIN 10.3 g/dL (11.5-16.0); LYMPHOCYTES # (AUTO) 2.4 10^3/uL (1.0-4.0); LYMPHOCYTES % (AUTO) 19 % (12-44); MEAN CORPUSCULAR HEMOGLOBIN 27 pg (25-34); MEAN CORPUSCULAR HGB CONC 31 g/dL (32-36); MEAN CORPUSCULAR VOLUME 86 fL (80-99); MEAN PLATELET VOLUME 10.2 fL (9.0-12.2); MONOCYTES # (AUTO) 0.6 10^3/uL (0.0-1.0); MONOCYTES % (AUTO) 5 % (0-12); NEUTROPHILS # (AUTO) 9.1 10^3/uL (1.8-7.8); NEUTROPHILS % (AUTO) 72 % (42-75); PLATELET COUNT 138 10^3/uL (130-400); WHITE BLOOD COUNT 12.5 10^3/uL (4.3-11.0)
[2020-05-16 14:51] LABS: ALBUMIN 3.6 GM/DL (3.2-4.5); BILIRUBIN,TOTAL 0.4 MG/DL (0.1-1.0); CALCIUM 8.9 MG/DL (8.5-10.1); CREATININE SERUM 1.95 MG/DL (0.60-1.30); POTASSIUM 4.6 MMOL/L (3.6-5.0); TOTAL PROTEIN 6.4 GM/DL (6.4-8.2)
[~2020-06-05 11:14] MED LIST changes: +ALPR.25T PO; +AMLO-250 PO; +AMLO-251 PO; -AMLO10TA7 PO; -AMLO5TAB9 PO; +ASPI-1238 PO; -ASPI-983 PO; +DARBEPOETIN 40 MCG/ML (ARANESP) 1 ML VIAL SC SCH
[2020-06-05 12:03] LABS: BASOPHILS % (AUTO) 0 % (0-10); EOSINOPHILS # (AUTO) 0.2 10^3/uL (0.0-0.3); EOSINOPHILS % (AUTO) 2 % (0-10); HEMATOCRIT 34 % (35-52); HEMOGLOBIN 10.3 g/dL (11.5-16.0); LYMPHOCYTES # (AUTO) 1.9 10^3/uL (1.0-4.0); LYMPHOCYTES % (AUTO) 23 % (12-44); MEAN CORPUSCULAR HEMOGLOBIN 27 pg (25-34); MEAN CORPUSCULAR HGB CONC 30 g/dL (32-36); MEAN CORPUSCULAR VOLUME 88 fL (80-99); MEAN PLATELET VOLUME 11.1 fL (9.0-12.2); MONOCYTES # (AUTO) 0.4 10^3/uL (0.0-1.0); MONOCYTES % (AUTO) 5 % (0-12); NEUTROPHILS # (AUTO) 5.4 10^3/uL (1.8-7.8); NEUTROPHILS % (AUTO) 68 % (42-75); PLATELET COUNT 128 10^3/uL (130-400)
[2020-06-14] MEDS ORDERED: DIGO125T3 PO (13:25)
[2020-06-14] MEDS ORDERED: PREG100C55 PO (13:25)
[2020-06-14] MEDS ORDERED: ASCO500T71 PO (13:25)
[2020-06-14] MEDS ORDERED: DILT240C91 PO (13:25)
[2020-06-14] MEDS ORDERED: MELA10TA2 PO (13:25)
[2020-06-14] MEDS ORDERED: INSU200I4 SC (13:25)
[2020-06-14] MEDS ORDERED: MTP100TCR PO (13:25)
[2020-06-14] MEDS ORDERED: FOLI0.8T PO (13:26)
[2020-06-14] MEDS ORDERED: CHOL10007 PO (13:27)
== END 2020-06-13 | disposition home or self-care (01) ==
LOC: ONC 11:14
PROVIDERS: ATTEND Internal Medicine Hematology & Oncology
DX: D50.9 Iron deficiency anemia, unspecified (principal); D63.1 Anemia in chronic kidney disease; N18.4 Chronic kidney disease, stage 4 (severe)
CPT/HCPCS: 80053; 82728; 85025; 96372; G0463

== ENCOUNTER → 2020-06-07 | Outpatient (CLI) | payer MEDICARE, MEDICAID ==
[~2020-06-07] MED LIST changes: -DARBEPOETIN 40 MCG/ML (ARANESP) 1 ML VIAL SC SCH
[2020-06-07 08:24] LABS: CREATININE SERUM 1.56 MG/DL (0.60-1.30)
--- NOTE | 2020-06-07 13:54 | Diagnostic Imaging Report ---
EXAMINATION: CT Chest without contrast. TECHNIQUE: Multiple contiguous axial images were obtained through the chest without the use of intravenous contrast. All CT scans use one or more of the following dose optimizing techniques: automated exposure control, MA and/or KvP adjustment based on a patient size and exam type, or iterative reconstruction. HISTORY: Hypertension, shortness of breath. COMPARISON: 08/06/2017. FINDINGS: There is no edema or pneumonia. No pleural effusion. No pneumothorax. There is a stable 6 mm right lower lobe peripheral pulmonary nodule. There are mild peripheral reticulations likely reflecting mild fibrosis. No honeycombing or architectural distortion is seen. No bronchiectasis. There is no axillary or supraclavicular lymphadenopathy. There is mild mediastinal lymphadenopathy. Nodes measure up to 13 mm in short axis. There is mild dilation of the atria and left ventricle. There are severe coronary artery calcifications. No pericardial effusion. Aorta is normal in caliber. Stent is present in the left subclavian artery. Limited views of the upper abdomen show the liver to be hyperdense. There is a small fat-containing Bochdalek hernia on the left. There are no suspicious osseous lesions. IMPRESSION: 1. Mild peripheral reticulations consistent with mild fibrosis. 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 Dictated by: Dictated on workstation # [id number]
== END ==
LOC: RAD 08:45
PROVIDERS: ATTEND Internal Medicine Critical Care Medicine
DX: I27.20 Pulmonary hypertension, unspecified (principal); J44.9 Chronic obstructive pulmonary disease, unspecified; G47.36 Sleep related hypoventilation in conditions classified elsewhere; J40 Bronchitis, not specified as acute or chronic; G47.33 Obstructive sleep apnea (adult) (pediatric)
CPT/HCPCS: 36415; 71250; 82565; 84520

== ENCOUNTER 2020-06-13 13:15 | Inpatient (IN) | payer MEDICARE, MEDICAID ==
[~2020-06-13] VITALS: Ht 167 cm; Wt 75.4 kg
[2020-06-13 13:41] LABS: BASOPHILS % (AUTO) 0 % (0-10); EOSINOPHILS % (AUTO) 0 % (0-10); HEMATOCRIT 34 % (35-52); HEMOGLOBIN 10.3 g/dL (11.5-16.0); LYMPHOCYTES % (AUTO) 9 % (12-44); MEAN CORPUSCULAR HEMOGLOBIN 27 pg (25-34); MEAN CORPUSCULAR HGB CONC 31 g/dL (32-36); MEAN CORPUSCULAR VOLUME 87 fL (80-99); MEAN PLATELET VOLUME 10.7 fL (9.0-12.2); MONOCYTES # (AUTO) 0.3 10^3/uL (0.0-1.0); MONOCYTES % (AUTO) 2 % (0-12); NEUTROPHILS # (AUTO) 10.2 10^3/uL (1.8-7.8); NEUTROPHILS % (AUTO) 85 % (42-75); PLATELET COUNT 141 10^3/uL (130-400)
--- NOTE | 2020-06-13 13:43 | ED General ---
General Chief Complaint: Respiratory Problems Stated Complaint: SOB HIGH BP Source of Information: Patient Exam Limitations: No Limitations History of Present Illness Date Seen by Provider: Jun 13, 2020 Time Seen by Provider: 13:39 Initial Comments To ER with reports of chronic swelling and weeping of the right lower extremity. She also reports shortness of breath and a cough which is unchanged from baseline and chronic as well. She states Dr. Schultz wanted to admit her for quite some time and she finally agreed that she would stay until of this week only. She reports that her previous diarrhea issues have resolved. She also states that she had evaluation by nephrology due to renal failure but never had dialysis and as far as she knows has improved renal function. Timing/Duration: Constant Severity: Moderate Associated Systoms: Cough Allergies and Home Medications Allergies Coded Allergies: Penicillins (Verified Allergy, Unknown, Pt has received Ceftriaxone in the past, 05/13/18) influenza virus vaccine, specific (Verified Adverse Reaction, Unknown, Not allergic just won't take Flu vaccine, 05/13/18) Home Medications Acetaminophen 500 Mg Tablet, 500 MG PO Q6H PRN for PAIN-MILD, (Reported) Albuterol Sulfate 18 Gm Hfa.aer.ad, 2 PUFF INH Q4H PRN for SHORTNESS OF BREATH, (Reported) Amitriptyline HCl 25 Mg Tablet, 25 MG PO HS, (Reported) Atorvastatin Calcium 40 Mg Tablet, 40 MG PO HS, (Reported) Cephalexin 500 Mg Capsule, 500 MG PO BID Prescribed by: SUHA TAYLOR on 01/01/20 1051 Cholestyramine (with Sugar) 4 Gm Powd.pack, 4 GM PO TID PRN for DIARRHEA, (Reported) Cyclosporine 1 Each Droperette, 1 DROP OU BID, (Reported) Fluticasone/Salmeterol 1 Each Blst.w.dev, 2 PUFF IH HS, (Reported) Furosemide 40 Mg Tablet, 40 MG PO DAILY, (Reported) Insulin Aspart 100 Unit/1 Ml Susp, UNITS SC TIDWM, (Reported) USE PER SLIDING SCALE WITH A MAX OF 50 UNITS PER DAY Insulin Degludec 100 Unit/1 Ml Insuln.pen, 36 UNIT SQ HS, (Reported) Levothyroxine Sodium 125 Mcg Tablet, 125 MCG PO DAILY, (Reported) Loperamide HCl 2 Mg Capsule, 2 MG PO TID PRN for diarrhea Prescribed by: SUHA TAYLOR on 01/01/20 1051 Loratadine 10 Mg Tablet, 10 MG PO DAILY, (Reported) Metoprolol Succinate 25 Mg Tab.er.24h, 25 MG PO BID, (Reported) Mirabegron 25 Mg Tab.er.24h, 25 MG PO DAILY, (Reported) Niacin 1,000 Mg Tab.er.24h, 1,000 MG PO HS, (Reported) Olmesartan Medoxomil 20 Mg Tablet, 10 MG PO DAILY, (Reported) TAKES 1/2 (20MG) TABLET Omeprazole 40 Mg Capsule.dr, 40 MG PO DAILY, (Reported) Pregabalin 100 Mg Capsule, 100 MG PO 0800,1500,2100, (Reported) Sertraline HCl 50 Mg Tablet, 50 MG PO DAILY, (Reported) Tiotropium Boyd 1 Inh Aerp, 1 CAP IH HS, (Reported) Triamcinolone Acet 15 Gm Cr, 1 APPLIC TP BID, (Reported) Patient Home Medication List Home Medication List Reviewed: Yes Review of Systems Review of Systems Constitutional: see HPI; No chills EENTM: see HPI Respiratory: see HPI, cough, dyspnea on exertion, orthopnea, short of breath Cardiovascular: see HPI; No chest pain; edema Genitourinary: no symptoms reported Musculoskeletal: see HPI Skin: no symptoms reported Psychiatric/Neurological: No Symptoms Reported Hematologic/Lymphatic: No Symptoms Reported Immunological/Allergic: no symptoms reported Past [place]-Yaunhp-Lohiww Hx Patient Social History Alcohol Use: Denies Use Recreational Drug Use: No Smoking Status: Never a Smoker 2nd Hand Smoke Exposure: No Recent Foreign Travel: No Contact w/Someone Who Travel: No Recent Hopitalizations: No Physical Abuse: No Sexual Abuse: No Immunizations Up To Date Tetanus Booster (TDap): Unknown Date of Pneumonia Vaccine: Aug 28, 2012 Date of Influenza Vaccine: May 27, 2020 Seasonal Allergies Seasonal Allergies: Yes Past Medical History Surgeries: Yes (CATARACTS, BILAT KNEE REPLACEMENT,BKA, R arm fx) Appendectomy, Coronary Stent, Eye Surgery, Hysterectomy, Joint Replacement, Orthopedic, Tonsillectomy Respiratory: Yes Sleep Apnea Currently Using CPAP: Yes (with oxygen) Currently Using BIPAP: No Cardiac: Yes (STENTS) Coronary Artery Disease, High Cholesterol, Hypertension Neurological: Yes Dementia 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 Disorders: No Female 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 Disorders: Denies 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 Sexually Transmitted Disease: No HIV/AIDS: No Genitourinary: Yes Kidney Infection, Bladder Infection, Renal Failure, UTI-Chronic Gastrointestinal: Yes Gastroesophageal Reflux, Chronic Constipation, Polyps, Hiatal Hernia Musculoskeletal: Yes Amputee, Arthritis Endocrine: Yes Diabetes, Insulin dep, Hypothyroidsim HEENT: Yes (GLASSES) Cataract Loss of Vision: Bilateral Hearing Impairment: Denies Cancer: No Psychosocial: Yes Anxiety, Depression Integumentary: No Recent Skin Changes Blood Disorders: Yes (ANEMIA) Adverse Reaction/Blood Tranf: No Family Medical History Arthritis Cardiovascular disease Diabetes mellitus Hypertension Diabetes, Hypertension Physical Exam Vital Signs Vital Signs - First Documented 06/13/20 13:27 Temp 36.1 Pulse 123 Resp 20 B/P (MAP) 157/93 (114) Capillary Refill : Height, Weight, BMI Height: 5'7.00" Weight: 182lbs. 0oz. [id number]; 28.83 BMI Method:Stated General Appearance: No Apparent Distress, WD/WN, Other (Alert and oriented no distress. Oxygen saturation 90% room air. Lungs are clear to auscultation. Heart rate is 124 sinus, blood pressure hypertensive at 150s over 110.) Eyes: Bilateral Eye Normal Inspection, Bilateral Eye PERRL, Bilateral Eye EOMI Neck: Full Range of Motion, Normal Inspection Respiratory: Normal Breath Sounds, No Accessory Muscle Use, No Respiratory Distress Cardiovascular: Normal Peripheral Pulses, Tachycardia Gastrointestinal: Normal Bowel Sounds, Non Tender, Soft Extremity: Normal Capillary Refill, Other (There is weeping of the right lower extremity from an open wound on the anterior right lower leg. This is serous in nature with 3+ pitting edema. There is also an erythematous bulla over the dorsum of the forefoot near the second and third MTP joints. She has a left below the knee amputation.) Neurologic/Psychiatric: Alert, Oriented x3 Skin: Normal Color, Warm/Dry Progress/Results/Core Measures Suspected Sepsis SIRS Temperature: Pulse: Respiratory Rate: Laboratory Tests 06/13/20 13:35: White Blood Count 12.0H Blood Pressure / Mean: Laboratory Tests 06/13/20 13:35: Creatinine 1.79H, Platelet Count 141, Total Bilirubin 0.5 Results/Orders Lab Results Laboratory Tests Test 06/13/20 13:35 06/13/20 13:44 Range/Units White Blood Count 12.0 H 4.3-11.0 10^3/uL Red Blood Count 3.84 3.80-5.11 10^6/uL Hemoglobin 10.3 L 11.5-16.0 g/dL Hematocrit 34 L 35-52 % Mean Corpuscular Volume 87 80-99 fL Mean Corpuscular Hemoglobin 27 25-34 pg Mean Corpuscular Hemoglobin Concent 31 L 32-36 g/dL Red Cell Distribution Width 18.3 H 10.0-14.5 % Platelet Count 141 130-400 10^3/uL Mean Platelet Volume 10.7 9.0-12.2 fL Immature Granulocyte % (Auto) 4 % Neutrophils (%) (Auto) 85 H 42-75 % Lymphocytes (%) (Auto) 9 L 12-44 % Monocytes (%) (Auto) 2 0-12 % Eosinophils (%) (Auto) 0 0-10 % Basophils (%) (Auto) 0 0-10 % Neutrophils # (Auto) 10.2 H 1.8-7.8 10^3/uL Lymphocytes # (Auto) 1.0 1.0-4.0 10^3/uL Monocytes # (Auto) 0.3 0.0-1.0 10^3/uL Eosinophils # (Auto) 0.0 0.0-0.3 10^3/uL Basophils # (Auto) 0.0 0.0-0.1 10^3/uL Immature Granulocyte # (Auto) 0.5 H 0.0-0.1 10^3/uL Sodium Level 136 135-145 MMOL/L Potassium Level 5.0 3.6-5.0 MMOL/L Chloride Level 106 98-107 MMOL/L Carbon Dioxide Level 18 L 21-32 MMOL/L Anion Gap 12 5-14 MMOL/L Blood Urea Nitrogen 39 H 7-18 MG/DL Creatinine 1.79 H 0.60-1.30 MG/DL Estimat Glomerular Filtration Rate 27 BUN/Creatinine Ratio 22 Glucose Level 389 H 70-105 MG/DL Calcium Level 8.4 L 8.5-10.1 MG/DL Corrected Calcium 8.9 8.5-10.1 MG/DL Magnesium Level 1.9 1.6-2.4 MG/DL Total Bilirubin 0.5 0.1-1.0 MG/DL Aspartate Amino Transf (AST/SGOT) 29 5-34 U/L Alanine Aminotransferase (ALT/SGPT) 57 H 0-55 U/L Alkaline Phosphatase 143 H 40-136 U/L Troponin I < 0.028 <0.028 NG/ML B-Type Natriuretic Peptide 499.4 H <100.0 PG/ML Total Protein 6.3 L 6.4-8.2 GM/DL Albumin 3.4 3.2-4.5 GM/DL Thyroid Stimulating Hormone (TSH) 0.68 0.35-4.94 UIU/ML Free Thyroxine 0.93 0.70-1.48 NG/DL Coronavirus 2019 (DANDRE) Negative Negative My Orders Orders - DIETER LOVE APRN Cbc With Automated Diff (06/13/20 13:27) Comprehensive Metabolic Panel (06/13/20 13:27) Troponin I (06/13/20 13:27) BNP (06/13/20 13:27) Magnesium (06/13/20 13:27) Thyroid Stimulating Hormone (06/13/20 13:27) Free T4 (Free Thyroxine) (06/13/20 13:27) Chest 1 View, Ap/Pa Only (06/13/20 13:27) Covid 19 Inhouse Test (06/13/20 13:27) Ekg Tracing (06/13/20 13:27) Metoprolol Tartrate Injection (Lopressor (06/13/20 13:45) Sodium 2g (2000 Mg) (06/13/20 Lunch) Vital Signs/I&O 06/13/20 13:27 Temp 36.1 Pulse 123 Resp 20 B/P (MAP) 157/93 (114) Capillary Refill : Departure Communication (Admissions) Time/Spoke to Admitting Phy: 14:[address] House, has been dealing with tachycardia for quite some time despite large doses of Cardizem and Toprol. He would like admitted on Cardizem drip. She is full CODE STATUS per her wishes. Impression Primary Impression: Tachycardia Additional Impression: CHF (congestive heart failure) Disposition: ADMITTED INPATIENT Condition: Stable Admissions Decision to Admit Reason: Admit from ER (General) Decision to Admit/Date: Jun 13, 2020 Time/Decision to Admit Time: 13:42 Departure-Patient Inst. Referrals: JESÚS CALLES DO (PCP/Family) Primary Care Physician DIETER LOVE APRN Jun 13, 2020 13:43
[2020-06-13] MEDS ORDERED: meTOprolol 5 MG/5 ML (LOPRESSOR) VIAL IV ONE (13:45)
[2020-06-13 14:02] LABS: ALANINE AMINOTRANSFERASE 57 U/L (0-55); ALBUMIN 3.4 GM/DL (3.2-4.5); ALKALINE PHOSPHATASE 143 U/L (40-136); BILIRUBIN,TOTAL 0.5 MG/DL (0.1-1.0); BUN/CREATININE RATIO 22; CALCIUM 8.4 MG/DL (8.5-10.1); CARBON DIOXIDE 18 MMOL/L (21-32); CHLORIDE 106 MMOL/L (98-107); CREATININE SERUM 1.79 MG/DL (0.60-1.30); GFR ESTIMATED 27; GLUCOSE 389 MG/DL (70-105); MAGNESIUM 1.9 MG/DL (1.6-2.4); SODIUM 136 MMOL/L (135-145); TOTAL PROTEIN 6.3 GM/DL (6.4-8.2)
--- NOTE | 2020-06-13 14:16 | Diagnostic Imaging Report ---
EXAMINATION: Chest 1 view. HISTORY: Cough. COMPARISON: Chest radiograph 01/10/2020. FINDINGS: Stable enlargement of the cardiac silhouette. Prominent pulmonary vasculature is again seen with pulmonary vascular congestion. Mild diffuse interstitial opacities throughout both lungs. No pleural effusion or pneumothorax. Calcifications of the aorta. The osseous structures are intact. IMPRESSION: Cardiomegaly with mild interstitial opacities throughout both lungs which could be secondary to pulmonary edema or atypical infection. Dictated by: Dictated on workstation # [id number]
[2020-06-13 14:23] LABS: FREE T4 (FREE THYROXINE) 0.93 NG/DL (0.70-1.48)
[2020-06-13] MEDS ORDERED: dilTIAZem DRIP PRE-MIX 125 ML IV SCH (14:45)
--- NOTE | 2020-06-13 16:33 | History & Physical-Hospitalist ---
ALLA GUZMAN MED STUDENT 06/13/20 1633: History of Present Illness HPI/Chief Complaint Deepa Agarwal is a 85y/o F with PMH CAD, HTN, hypercholesterolemia, T2DM insulin dependent, Stage 3b CKD, hypothyroidism, GERD, COPD, urgency incontinence, and peripheral neuropathy. Pt presented to the ER today with sinus tachycardia. Pt presented to her cardiologists, Dr. House, office earlier that day who recommended she go to the ER so she could be admitted and a cardizem drip be started. Pt has a one month hx of sinus tachycardia that her cardiologi st has been following but pt had been hesitant to see the hospital due to COVID- 19. Apon my visit with the pt she was fully alert and oriented without any distress. She denies any recent chest pain or palpitations. Pt also denies any worsening SOB or sputum production. Pt also has several lesions on her R foot and 3+ edema in the leg. Pt denies any abd pain, diarrhea, constipation or dysuria. Pt lives with her daughter and son in-law who manage her medications and glucose control. Source: patient, EMS notes reviewed, old records Date Seen 06/13/20 Time Seen by a Provider: 04:00 Attending Physician Suha Taylor MD PCP Zuly Jeffrey DO Referring Physician Date of Admission Jun 13, 2020 at 14:27 Home Medications & Allergies Home Medications Reviewed patient Home Medication Reconciliation performed by pharmacy medication reconciliations diagnostic technician and/or nursing. Patients Allergies have been reviewed. Allergies Allergies Coded Allergies Penicillins (Verified Allergy, Unknown, Pt has received Ceftriaxone in the past, 05/13/18) influenza virus vaccine, specific (Verified Adverse Reaction, Unknown, Not allergic just won't take Flu vaccine, 05/13/18) Past Mshdjkz-Aufqse-Kxwiur Hx Patient Social History Alcohol Use: Denies Use Recreational Drug Use: No Smoking Status: Never a Smoker 2nd Hand Smoke Exposure: No Recent Foreign Travel: No Contact w/other who traveled: No Recent Hopitalizations: No Recent Infectious Disease Expo: No Immunizations Up To Date Tetanus Booster (TDap): Unknown Date of Pneumonia Vaccine: Aug 28, 2012 Date of Influenza Vaccine: May 27, 2020 Seasonal Allergies Seasonal Allergies: Yes Past Medical History Surgeries: Appendectomy, Coronary Stent, Eye Surgery, Hysterectomy, Joint Replacement, Orthopedic, Tonsillectomy Respiratory: COPD, Sleep Apnea Currently Using CPAP: Yes (with oxygen) Currently Using BIPAP: No Cardiac: Coronary Artery Disease, High Cholesterol, Hypertension, Peripheral Vascular Neurological: Dementia SDH 09/03/17 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: No Sexually Transmitted Disease: No HIV/AIDS: No Female 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 Disorders: Denies Menopausal Genitourinary: Kidney Infection, Bladder Infection, Renal Failure, UTI-Chronic Gastrointestinal: Gastroesophageal Reflux, Gastrointestinal Bleed, Chronic Constipation, Polyps, Hiatal Hernia Musculoskeletal: Amputee, Arthritis Endocrine: Diabetes, Insulin dep, Hypothyroidsim HEENT: Cataract Loss of Vision: Bilateral Hearing Impairment: Denies Psychosocial: Anxiety, Depression Skin/Integumentary: Recent Skin Changes History of Blood Disorders: Yes (ANEMIA) Adverse Reaction to Blood Herrera: No Family History Arthritis Cardiovascular disease Diabetes mellitus Hypertension Diabetes, Hypertension Review of Systems Constitutional: No chills, No diaphoresis, No fever Respiratory: No cough, No dyspnea on exertion, No phlegm; short of breath (chronic hx, denies any exacerbation. ) Cardiovascular: No chest pain, No palpitations Gastrointestinal: No abdominal pain, No constipation, No diarrhea, No nausea, No vomiting Genitourinary: No dysuria; incontinence Skin: lesions Physical Exam Physical Exam Vital Signs Vital Signs - First Documented 06/13/20 06/13/20 13:27 15:44 Temp 36.1 Pulse 123 Resp 20 B/P (MAP) 157/93 (114) Pulse Ox 99 Capillary Refill : Less Than 3 Seconds Height, Weight, BMI Height: 5'7.00" Weight: 182lbs. 0oz. 82.572378gw; 29.00 BMI Method:Stated General Appearance: No Apparent Distress, WD/WN Eyes: Bilateral Eye Normal Inspection, Bilateral Eye PERRL, Bilateral Eye EOMI HEENT: PERRL/EOMI, Normal ENT Inspection, Moist Mucous Membranes Neck: Full Range of Motion, Normal Inspection Respiratory: Lungs Clear, Normal Breath Sounds, No Accessory Muscle Use, No Respiratory Distress Cardiovascular: No Murmur, Normal Peripheral Pulses, Tachycardia Gastrointestinal: Normal Bowel Sounds, Non Tender, Soft Rectal: Deferred Extremity: Normal Capillary Refill, No Calf Tenderness; No Calf Tenderness; Pedal Edema, Other (L BKA) Neurologic/Psychiatric: Alert, Oriented x3, Normal Mood/Affect, 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 Assessment/Plan Admission Diagnosis Sinus Tachycardia Admission Status: Inpatient Order (span 2 midnights) Reason for Inpatient Admission: Sinus Tachycardia Assessment and Plan Sinus Tachycardia EKG showed sinus tachycardia TSH and free T4 within normal range Cardizem drip started and I.V. metoprolol given. Cardiology consulted, appreciate recommendations. T2DM, insulin dependent Pt endorses normal appetite. Continue home insulin regimen SSI Diabetic foot ulcers Pt has several lesions on R foot and leg. Consult wound care. Chronic anemia, normocytic Likely 2/2 CKD. Hgb 10.3. This is around the pts baseline level. No intervention required. Stage 3b CKD Creatinine within pts baseline. Pt endorses normal fluid intake. HTN CAD Hypercholesterolemia COPD GERD Hypothyroidism Depression Urgency incontinence Peripheral neuropathy Start home regimen. DVT prophylaxis Start lovenox. SUHA TAYLOR MD 06/13/20 1902: Past Opxjanl-Tyqzzt-Wzdreu Hx Past Med/Social Hx: Reviewed Nursing Past Med/Soc Hx Family History Arthritis Cardiovascular disease Diabetes mellitus Hypertension Diagnosis/Problems Diagnosis/Problems (1) Tachycardia Status: Acute (2) CHF (congestive heart failure) Status: Acute (3) Essential (primary) hypertension Status: Chronic (4) PVD (peripheral vascular disease) (5) Hypothyroidism Status: Chronic (6) Diabetes Status: Chronic (7) S/P BKA (below knee amputation) unilateral (8) Charcot foot due to diabetes mellitus Status: Chronic (9) CAD (coronary artery disease) Status: Chronic (10) CKD (chronic kidney disease) stage 3, GFR 30-59 ml/min Status: Chronic Supervisory-Addendum Brief Verification & Attestation Participated in pt care: history, MDM, physical Personally performed: exam, history, MDM, supervision of care Care discussed with: Medical Student Procedures: n/a Results interpretation: Verified all documentation Verification and Attestation of Medical Student E/M Service A medical student performed and documented this service in my presence. I reviewed and verified all information documented by the medical student and made modifications to such information, when appropriate. I personally performed the physical exam and medical decision making. Suha Taylor, Jun 13, 2020,18:58 ALLA GUZMAN MED STUDENT Jun 13, 2020 16:33 SUHA TAYLOR MD Jun 13, 2020 19:02
[2020-06-13] MEDS ORDERED: CATHETER FLUSH 10 ML SYR IV PRN (17:45)
[2020-06-13] MEDS: FUROSEMIDE 40 MG/4 ML INJ (LASIX) IV SCH (18:47)
[2020-06-13] MEDS ORDERED: MILK OF MAGNESIA 400 MG/5 ML 30 ML UDC PO PRN (19:30)
[2020-06-13] MEDS ORDERED: BENZONATATE 100 MG (TESSALON) CAPSULE PO PRN (19:30)
[2020-06-13] MEDS ORDERED: MELATONIN 3 MG TABLET PO PRN (19:30)
[2020-06-13] MEDS ORDERED: ACETAMINOPHEN 325 MG TABLET PO PRN (19:30)
[2020-06-13] MEDS ORDERED: ONDANSETRON 4 MG/2 ML (SDV) Z0FRAN IV PRN (19:30)
[2020-06-13] MEDS ORDERED: ANTACID SUSP 30 ML UDC (MYLANTA) PO PRN (19:30)
[2020-06-13] MEDS: dilTIAZem DRIP 125 MG/125 ML DRIP IV SCH (20:18)
[2020-06-13] MEDS: CATHETER FLUSH 10 ML SYR IV SCH (20:19)
[2020-06-13] MEDS: inSUlin ASPART (NovoLOG) 1 UNIT/0.01 ML (CHARGE PER UNIT) SC SCH (20:27)
[2020-06-14] MEDS: dilTIAZem DRIP 125 MG/125 ML DRIP IV SCH ×2 (03:16→12:13)
[2020-06-14 04:05] LABS: BASOPHILS # (AUTO) 0.1 10^3/uL (0.0-0.1); BASOPHILS % (AUTO) 0 % (0-10); EOSINOPHILS % (AUTO) 0 % (0-10); HEMATOCRIT 32 % (35-52); HEMOGLOBIN 10.1 g/dL (11.5-16.0); LYMPHOCYTES # (AUTO) 2.2 10^3/uL (1.0-4.0); LYMPHOCYTES % (AUTO) 15 % (12-44); MEAN CORPUSCULAR HEMOGLOBIN 27 pg (25-34); MEAN CORPUSCULAR HGB CONC 31 g/dL (32-36); MEAN CORPUSCULAR VOLUME 86 fL (80-99); MONOCYTES # (AUTO) 1.1 10^3/uL (0.0-1.0); MONOCYTES % (AUTO) 8 % (0-12); NEUTROPHILS # (AUTO) 10.9 10^3/uL (1.8-7.8); NEUTROPHILS % (AUTO) 73 % (42-75); PLATELET COUNT 165 10^3/uL (130-400); WHITE BLOOD COUNT 15.1 10^3/uL (4.3-11.0)
[2020-06-14 04:14] LABS: ALBUMIN 3.3 GM/DL (3.2-4.5); POTASSIUM 4.4 MMOL/L (3.6-5.0)
[2020-06-14 04:15] LABS: CALCIUM 8.5 MG/DL (8.5-10.1)
[2020-06-14 04:17] LABS: TOTAL PROTEIN 6.1 GM/DL (6.4-8.2)
[2020-06-14 04:18] LABS: BILIRUBIN,TOTAL 0.4 MG/DL (0.1-1.0)
[2020-06-14 04:20] LABS: CREATININE SERUM 1.99 MG/DL (0.60-1.30)
[2020-06-14 04:48] LABS: ATYPICAL LYMPHOCYTES 4 %; BAND NEUTROPHILS 1 %; LYMPHOCYTES % (MANUAL) 17 %; MONOCYTES % (MANUAL) 4 %; NEUTROPHILS % (MANUAL) 74 %; RBC MORPH NORMAL
[2020-06-14] MEDS: CATHETER FLUSH 10 ML SYR IV SCH ×3 (05:52→20:47)
[2020-06-14] MEDS: inSUlin ASPART (NovoLOG) 1 UNIT/0.01 ML (CHARGE PER UNIT) SC SCH ×4 (05:52→20:47)
[2020-06-14] MEDS: LEVOTHYROXINE 125 MCG (LEVOTHROID) TABLET PO SCH (05:52)
[2020-06-14] MEDS: FUROSEMIDE 40 MG/4 ML INJ (LASIX) IV SCH (05:53)
[2020-06-14 07:29] LABS: BILIRUBIN,URINE NEGATIVE (NEGATIVE); CLARITY,URINE CLEAR; COLOR,URINE YELLOW; GLUCOSE, URINE (UA) 1+ (NEGATIVE); KETONES,URINE NEGATIVE (NEGATIVE); LEUKOCYTE ESTERASE ,URINE 3+ (NEGATIVE); NITRITE,URINE NEGATIVE (NEGATIVE); PH,URINE 6.5 (5-9); PROTEIN,URINE 2+ (NEGATIVE)
[2020-06-14 07:43] LABS: WBC,URINE TNTC /HPF
[2020-06-14 07:44] LABS: BACTERIA,URINE LARGE /HPF
--- NOTE | 2020-06-14 09:19 | Progress Note - Hospitalist ---
ALLA GUZMAN MED STUDENT 06/14/20 0919: Subjective HPI/CC On Admission Time Seen by Provider: 08:25 Deepa Agarwal is a 85y/o F with PMH CAD, HTN, hypercholesterolemia, T2DM insulin dependent, Stage 3b CKD, hypothyroidism, GERD, COPD, urgency incontinence, and peripheral neuropathy. Pt presented to the ER today with sinus tachycardia. Pt presented to her cardiologists, Dr. House, office earlier that day who recommended she go to the ER so she could be admitted and a cardizem drip be started. Pt has a one month hx of sinus tachycardia that her yarn man has been following but pt had been hesitant to see the hospital due to COVID-19. Apon my visit with the pt she was fully alert and oriented without any distress. She denies any recent chest pain or palpitations. Pt also denies any worsening SOB or sputum production. Pt also has several lesions on her R foot and 3+ edema in the leg. Pt denies any abd pain, diarrhea, constipation or dysuria. Pt lives with her daughter and son in-law who manage her medications and glucose control. Subjective/Events-last exam Pt fully alert and oriented. Denies any complaints. Discusses the elevated WBC count and U/A results with pt. She denies any chills, fever, night sweat, dysuria, abd or flank pain. Pt still tachycardic during visit. Pt denies chest pain or palpitations. Review of Systems General: No Chills, No Night Sweats, No Fatigue Pulmonary: No Dyspnea, No Cough, No Pleuritic Chest Pain Cardiovascular: Edema; No: Chest Pain, Palpitations Gastrointestinal: No: Nausea, Vomiting, Abdominal Pain, Diarrhea, Constipation Genitourinary: No Dysuria, No Incontinence Focused Exam Lactate Level 06/14/20 10:45: Lactic Acid Level 1.12 Lactic Acid Level Laboratory Tests Test 06/14/20 10:45 Lactic Acid Level 1.12 MMOL/L (0.50-2.00) Objective Exam Vital Signs Vital Signs Date Time Temp Pulse Resp B/P (MAP) Pulse Ox O2 Delivery O2 Flow Rate FiO2 06/14/20 08:03 88 06/14/20 08:00 38.2 18 130/78 97 06/14/20 04:00 Nasal Cannula 2.00 Capillary Refill : Less Than 3 Seconds General Appearance: No Apparent Distress, WD/WN HEENT: PERRL/EOMI, Moist Mucous Membranes Neck: Full Range of Motion, Normal Inspection Respiratory: Lungs Clear, Normal Breath Sounds, No Accessory Muscle Use, No Respiratory Distress Cardiovascular: No JVD, No Murmur, Normal Peripheral Pulses, Tachycardia Gastrointestinal: Normal Bowel Sounds, Non Tender, Soft Rectal: Deferred Extremity: Normal Capillary Refill, No Calf Tenderness, Pedal Edema (3+ ), Other (lesions on R foot and leg, leg weeping. L BKA. ) Neurologic/Psychiatric: Alert, Oriented x3, Normal Mood/Affect, life educator II-XII Norm as Tested, Sensory Deficit (peripheral neuropathy. ) Skin: Normal Color, Other (R leg weeping. ) Lymphatic: No Adenopathy Results/Procedures Lab Laboratory Tests 06/13/20 13:35 06/14/20 03:51 Patient resulted labs reviewed. Assessment/Plan Assessment and Plan Assess & Plan/Chief Complaint Sinus Tachycardia Pt still tachycardic this morning. Cardizem drip started and I.V. metoprolol given. Cardiology consulted, appreciate recommendations. Cardiology plans to cardiovert today. Sepsis Probably 2/2 Complicated UTI U/A shows UTI WBC increased to 15.1 from 12.0 today. Temperature 38.2 this morning. Start ceftriaxone. Order urine culture. Order blood culture. Lactate 1.12 today Acute on Chronic CHFpEF BNP 499 in ED yesterday. This is elevated from pt baseline. Continue Lasix. Stage 3b CKD Creatinine within pts baseline, but increased to 1.99 from 1.79. Follow creatinine levels serially. Pt endorses normal fluid intake. T2DM, insulin dependent Pt endorses normal appetite. Start home insulin regimen SSI Diabetic foot ulcers Pt has several lesions on R foot and leg. Consult wound care. JF Order cPAP. Chronic anemia, normocytic Likely 2/2 CKD. Hgb 10.1. This is around the pts baseline level. No intervention required. HTN CAD Hypercholesterolemia COPD GERD Hypothyroidism Depression Urgency incontinence Peripheral neuropathy Start home regimen. DVT prophylaxis lovenox. Clinical Quality Measures DVT/VTE Risk/Contraindication: Risk Factor Score Per Nursin RFS Level Per Nursing on Admit: 3=High SUHA RIVAS MD 06/15/20 1637: Assessment/Plan Assessment and Plan Assess & Plan/Chief Complaint Patient doing well. Requesting discharge home today but urine culture not yet back. Plan for cardioversion today. Hopefully home tomorrow. Supervisory-Addendum Brief Verification & Attestation Participated in pt care: history, MDM, physical Personally performed: exam, history, MDM, supervision of care Care discussed with: Medical Student Procedures: n/a Results interpretation: Verified all documentation Verification and Attestation of Medical Student E/M Service A medical student performed and documented this service in my presence. I reviewed and verified all information documented by the medical student and made modifications to such information, when appropriate. I personally performed the physical exam and medical decision making. Suha Rivas, Jun 15, 2020,16:32 ALLA GUZMAN MED STUDENT Jun 14, 2020 09:19 SUHA RIVAS MD Jun 15, 2020 16:37
[2020-06-14] MEDS ORDERED: guaiFENesin (MUCINEX) 600 MG TAB PO ONE (12:06)
[2020-06-14] MEDS: cefTRIAXone FOR IV USE 1,000 MG in WATER (STERILE) FOR INJECTION 10 ML IV SCH (12:14)
[2020-06-14] MEDS ORDERED: guaiFENesin (MUCINEX) 600 MG TAB PO PRN (12:15)
[2020-06-14 12:59] VITALS: BP 127/82
[2020-06-14] MEDS ORDERED: INSU200I4 SC (13:25)
[2020-06-14] MEDS ORDERED: DILT240C91 PO (13:25)
[2020-06-14] MEDS ORDERED: ASCO500T71 PO (13:25)
[2020-06-14] MEDS ORDERED: MTP100TCR PO (13:25)
[2020-06-14] MEDS ORDERED: MELA10TA2 PO (13:25)
[2020-06-14] MEDS ORDERED: PREG100C55 PO (13:25)
[2020-06-14] MEDS ORDERED: DIGO125T3 PO (13:25)
[2020-06-14] MEDS ORDERED: FOLI0.8T PO (13:26)
[2020-06-14] MEDS ORDERED: CHOL10007 PO (13:27)
--- NOTE | 2020-06-14 13:28 | NUR ---
I SPOKE WITH THE PT- SHE WAS NOT ABLE TO GIVE ME ANY INFORMATION ABOUT HER MEDICATIONS. CARLOS WANTED ME TO CALL HER YUAN (ED) SINCE HE SETS UP ALL HER MEDICATIONS. I SPOKE WITH ED AND WENT THRU THE EXT MED HISTORY TO COMPLETE THE MED REC THE FOLLOWING MEDICATIONS SHOW ON THE EXT MED HISTORY HOWEVER THE PT IS NO LONGER TAKING: PREDNISONE 10MG FUROSEMIDE 40MG ATORVASTATIN 40MG OLMESARTAN 20MG MYRBETRIQ 25MG ALL OTHER MEDICATIONS ED WAS ABLE TO TELL ME HOW/WHEN THE PT TAKES OTC MEDS: VIT D VIT C FOLIC ACID TYLENOL MELATONIN (ED SAYS PT TAKES TWO 10MG TAB HS)
[2020-06-14] MEDS: RT-ALBUTEROL INHALER HFA (VENTOLIN HFA) 18 GM IH SCH ×2 (15:16→19:34)
--- NOTE | 2020-06-14 17:20 | Consultation-Cardiology ---
HPI-Cardiology Cardiology Consultation: Date of Consultation 06/14/20 Date of Admission Attending Physician Hilda Rivas MD Admitting Physician Zuly Jeffrey DO Consulting Physician Emmanuel THOMAS MD HPI: Time Seen by a Provider: 08:50 Chief Complaint: Palpitations This is an elderly lady who is a patient of Dr. House she presents with palpitations with difficult to control heart rate. Chronic kidney disease. Denies active smoking. Pertinent family history is negative. Chronic swelling of the right lower extremity. Review of Systems-Cardiology Review of Systems Constitutional: As described under HPI; No As described under HPI, No no symptoms reported, No chills, No fever, No lightheadedness Eyes: No As described under HPI, No no symptoms reported, No blindness, No blurred vision, No contact lenses, No drainage, No decreased acuity, No foreign body sensation, No pain, No vision change Ears/Nose/Throat: No As described under HPI, No no symptoms reported, No chronic hearing loss, No ear discharge, No ear pain, No nasal drainage, No ulcerations Respiratory: No no symptoms reported; As described under HPI; No As described under HPI, No cough, No orthopnea, No shortness of breath, No SOB with excertion Cardiovascular: No no symptoms reported; As described under HPI; No As described under HPI, No chest pain, No edema, No irregular heart rate, No lightheadedness; palpitations Gastrointestinal: No no symptoms reported, No As described under HPI, No abdomen distended, No abdominal pain, No blood streaked bowels, No constipation, No diarrhea, No nausea, No vomiting, No stool coloration changes Genitourinary: No As described under HPI, No burning, No dysuria, No discharge, No frequency, No flank pain, No hematuria, No urgency : Yes : No Skin: No rash, No skin related problems, No ulcerations Psychiatric/Neurological: No anxiety, No depression, No seizure, No focal weakness, No syncope Hematologic: No bleeding abnormalities ISG-Sissyh-Nudlwg Hx Patient Social History Alcohol Use: Denies Use Recreational Drug Use: No Smoking Status: Never a Smoker 2nd Hand Smoke Exposure: No Recent Foreign Travel: No Recent Infectious Disease Expo: No Hospitalization with Isolation: Denies Immunizations Up To Date Tetanus Booster (TDap): Unknown Date of Pneumonia Vaccine: Aug 28, 2012 Date of Influenza Vaccine: May 27, 2020 Past Medical History PMH As described under Assessment. Family Medical History Family History: Arthritis Cardiovascular disease Diabetes mellitus Hypertension Allergies and Home Medications Allergies Coded Allergies: Penicillins (Verified Allergy, Unknown, Pt has received Ceftriaxone in the past, 05/13/18) influenza virus vaccine, specific (Verified Adverse Reaction, Unknown, Not allergic just won't take Flu vaccine, 05/13/18) Home Medications Acetaminophen 500 Mg Tablet, 500 MG PO Q6H PRN for PAIN-MILD, (Reported) Albuterol Sulfate 18 Gm Hfa.aer.ad, 2 PUFF INH Q4H PRN for SHORTNESS OF BREATH, (Reported) Amitriptyline HCl 25 Mg Tablet, 25 MG PO HS, (Reported) Ascorbic Acid 500 Mg Tab.chew, 500 MG PO DAILY, (Reported) Cholecalciferol (Vitamin D3) 25 Mcg Capsule, 25 MCG PO DAILY, (Reported) Cyclosporine 1 Each Droperette, 1 DROP OU BID, (Reported) Digoxin 125 Mcg Tablet, 125 MCG PO DAILY, (Reported) Diltiazem HCl 240 Mg Cap.er.24h, 240 MG PO BID, (Reported) Fluticasone/Salmeterol 1 Each Blst.w.dev, 2 PUFF IH HS, (Reported) Folic Acid 0.8 Mg Tablet, 0.8 MG PO DAILY, (Reported) Insulin Aspart 100 Unit/1 Ml Susp, UNITS SC TIDWM, (Reported) Insulin Degludec 200 Unit/1 Ml Insuln.pen, 30 UNIT SC DAILY, (Reported) Levothyroxine Sodium 125 Mcg Tablet, 125 MCG PO DAILY, (Reported) Loratadine 10 Mg Tablet, 10 MG PO DAILY, (Reported) Melatonin 10 Mg Tablet, 20 MG PO HS, (Reported) TAKES 2 (10MG) TABS Metoprolol Succinate 100 Mg Tab.er.24h, 100 MG PO DAILY, (Reported) Niacin 1,000 Mg Tab.er.24h, 1,000 MG PO HS, (Reported) Omeprazole 40 Mg Capsule.dr, 40 MG PO DAILY, (Reported) Pregabalin 100 Mg Capsule, 100 MG PO TID, (Reported) Sertraline HCl 50 Mg Tablet, 50 MG PO DAILY, (Reported) Tiotropium Franklin 1 Inh Aerp, 1 CAP IH HS, (Reported) Patient Home Medication List Home Medication List Reviewed: Yes Physical Exam-Cardiology Physical Exam Vital Signs/I&O 06/15/20 06/15/20 06/15/20 06/15/20 07:29 07:30 07:52 08:00 Temp 36.5 Pulse 133 131 Resp 18 B/P (MAP) 141/85 Pulse Ox 98 O2 Delivery Nasal Cannula Room Air O2 Flow Rate 2.00 06/15/20 06/15/20 06/15/20 06/15/20 08:00 09:51 09:55 11:52 Pulse Ox 96 96 O2 Delivery Room Air Room Air Room Air Room Air 06/15/20 06/15/20 06/15/20 06/15/20 11:53 13:22 14:05 14:05 Temp 36.2 Pulse 133 129 Resp 18 16 B/P (MAP) 128/81 132/78 (96) Pulse Ox 96 99 98 O2 Delivery Room Air OxyMask OxyMask O2 Flow Rate 10.00 06/15/20 06/15/20 06/15/20 06/15/20 14:06 14:15 14:20 14:27 Pulse 130 82 81 81 Resp 16 16 16 16 B/P (MAP) 128/84 (99) 130/81 (97) 126/69 (88) 118/66 (83) Pulse Ox 99 100 95 95 O2 Delivery OxyMask OxyMask OxyMask Room Air 06/15/20 15:17 Pulse 75 06/15/20 00:00 Intake Total 1000 ml Output Total 1950 ml Balance -950 ml Capillary Refill : Less Than 3 Seconds Constitutional: appears stated age, AAO x 3; No apparent distress; well- developed, well-nourished HEENT: PERRL; No discharge; hearing is well preserved, oral hygience is good; No ulceration, No xanthelasmas are seen Neck: No carotid bruit; carotid pulses are 2 + bilaterally Respiratory: chest is bilaterally symmetric, lungs clear to auscultation Cardiovascular: irregularly irregular, tachycardia, S1 and S2; No diastolic murmur; systolic murmur Gastrointestinal: soft, audible bowel sounds; No spleenomegaly Rectal: deferred Extremities: normal range of motion, non-tender, normal inspection; No clubbing, No cyanosis; significant edema Neurologic/Psychiatric: no motor/sensory deficits, alert, normal mood/affect, oriented x 3, power is 5/5 both on sides Skin: normal color, warm/dry; No rash, No ulcerations Data Review Labs Laboratory Tests 06/14/20 20:43: Glucometer 251H 06/15/20 05:57: Glucometer 216H 06/15/20 11:15: White Blood Count 12.6H, Red Blood Count 3.88, Hemoglobin 10.5L, Hematocrit 33L, Mean Corpuscular Volume 85, Mean Corpuscular Hemoglobin 27, Mean Corpuscular Hemoglobin Concent 32, Red Cell Distribution Width 18.1H, Platelet Count 132, Mean Platelet Volume 10.7, Sodium Level 137, Potassium Level 4.3, Chloride Level 102, Carbon Dioxide Level 23, Anion Gap 12, Blood Urea Nitrogen 28H, Creatinine 1.77H, Estimat Glomerular Filtration Rate 27, BUN/Creatinine Ratio 16, Glucose Level 258H, Calcium Level 8.5 Microbiology 06/14/20 Blood Culture - Preliminary, Resulted No growth 06/14/20 Urine Culture - Preliminary, Resulted Klebsiella/Enterobacter spec ECG Impression ECG Initial ECG Rhythm: A Fib/Flutter A/P-Cardiology Assessment/Admission Diagnosis Typical atrial flutter, Systolic murmur, Right lower extremity swelling with possible wound, Chronic kidney disease. Plan Typical atrial flutter, discussed at length with the patient and recommended atrial flutter ablation. Informed consent was taken. Systolic murmur, echocardiogram. Right lower extremity swelling with possible wound, Chronic kidney disease. Thank you for your consultation. Please call me if you have any questions. Blanca Thomas MD, FACP, FACC, FSCAI, FHRS, CCDS Interventional Cardiology Cardiac Electrophysiology Vascular Medicine and Endovascular Interventions Clinical Quality Measures DVT/VTE Risk/Contraindication: Risk Factor Score Per Nursin RFS Level Per Nursing on Admit: 3=High Emmanuel THOMAS MD Jun 14, 2020 17:20
[2020-06-14] MEDS ORDERED: RT-ALBUTEROL SULF 2.5 MG/3 ML PRE-MIX VIAL INH PRN (18:15)
[2020-06-14] MEDS: ADVAIR HFA 115/21 MCG INHALER 8 GM IH SCH (19:34)
[2020-06-14] MEDS: AMITRIPTYLINE 25 MG (ELAVIL) TAB PO SCH (20:46)
[2020-06-14] MEDS: PREGABALIN 100 MG (LYRICA) CAPSULE PO SCH (20:47)
[2020-06-14] MEDS ORDERED: TIOTROPIUM BROMIDE (SPIRIVA) 5'S INHALER IH SCH (21:00)
[2020-06-14] MEDS ORDERED: NON-FORMULARY MEDICATION 1 EA EA (Fluticasone/Salmeterol (Advair 250-50 Diskus) 2 PUFF) IH SCH (21:00)
[2020-06-15] MEDS: RT-ALBUTEROL INHALER HFA (VENTOLIN HFA) 18 GM IH SCH ×4 (01:34→21:01)
[2020-06-15] MEDS: UMECLIDINIUM BROMIDE (INCRUSE ELLIPTA) 7'S IH SCH ×2 (01:35→21:04)
[2020-06-15] MEDS: inSUlin ASPART (NovoLOG) 1 UNIT/0.01 ML (CHARGE PER UNIT) SC SCH ×4 (05:58→20:53)
[2020-06-15] MEDS: LEVOTHYROXINE 125 MCG (LEVOTHROID) TABLET PO SCH (05:59)
[2020-06-15] MEDS: CATHETER FLUSH 10 ML SYR IV SCH ×3 (06:14→20:54)
[2020-06-15] MEDS: FUROSEMIDE 40 MG/4 ML INJ (LASIX) IV SCH (06:14)
[2020-06-15] MEDS ORDERED: INSULIN DEGLUDEC 30 UNIT SC SCH (09:00)
[2020-06-15] MEDS ORDERED: LEVOTHYROXINE 125 MCG (LEVOTHROID) TABLET PO SCH (09:00)
[2020-06-15] MEDS ORDERED: NON-FORMULARY MEDICATION 1 EA EA (Folic Acid 0.8 MG) PO SCH (09:00)
[2020-06-15] MEDS: meTOprolol SUCCINATE 100 MG (TOPROL XL) TAB PO SCH (09:19)
[2020-06-15] MEDS: cefTRIAXone FOR IV USE 1,000 MG in WATER (STERILE) FOR INJECTION 10 ML IV SCH (09:19)
[2020-06-15] MEDS: DIGOXIN 0.125 MG (LANOXIN) TAB PO SCH (09:19)
--- NOTE | 2020-06-15 09:20 | Progress Note - Hospitalist ---
ALLA GUZMAN MED STUDENT 06/15/20 0920: Subjective HPI/CC On Admission Time Seen by Provider: 08:30 Deepa Agarwal is a 85y/o F with PMH CAD, HTN, hypercholesterolemia, T2DM insulin dependent, Stage 3b CKD, hypothyroidism, GERD, COPD, urgency incontinence, and peripheral neuropathy. Pt presented to the ER today with sinus tachycardia. Pt presented to her cardiologists, Dr. House, office earlier that day who recommended she go to the ER so she could be admitted and a cardizem drip be started. Pt has a one month hx of sinus tachycardia that her ball worker has been following but pt had been hesitant to see the hospital due to COVID-19. Apon my visit with the pt she was fully alert and oriented without any distress. She denies any recent chest pain or palpitations. Pt also denies any worsening SOB or sputum production. Pt also has several lesions on her R foot and 3+ edema in the leg. Pt denies any abd pain, diarrhea, constipation or dysuria. Pt lives with her daughter and son in-law who manage her medications and glucose control. Subjective/Events-last exam Pt denies any chief complaints. I reminded pt about her UTI and she denied having any sxs 2ndry to it: pt denies abd pain, flank pain, suprapubic pain, dysuria, fever and night sweats worse than baseline. Pt was neg for suprapubic or abd pain on PE. Pt denies chest pain or palpitations, states she is passing stool regularly. Review of Systems General: No Chills; Night Sweats (denies it being any worse than baseline. ) Pulmonary: No Dyspnea, No Cough, No Pleuritic Chest Pain Cardiovascular: Edema; No: Chest Pain, Palpitations Gastrointestinal: No: Nausea, Vomiting, Abdominal Pain, Diarrhea, Constipation Genitourinary: No Dysuria; Other (denies dysuria, flank pain and suprapubic pain. ) Focused Exam Lactate Level 06/14/20 10:45: Lactic Acid Level 1.12 Objective Exam Vital Signs Vital Signs Date Time Temp Pulse Resp B/P (MAP) Pulse Ox O2 Delivery O2 Flow Rate FiO2 06/15/20 07:52 131 06/15/20 07:29 36.5 18 141/85 98 Nasal Cannula 2.00 06/14/20 12:59 28 Capillary Refill : Less Than 3 Seconds General Appearance: No Apparent Distress, Chronically ill HEENT: PERRL/EOMI, Normal ENT Inspection, Moist Mucous Membranes Neck: Full Range of Motion, Normal Inspection Respiratory: Chest Non Tender, Normal Breath Sounds, No Accessory Muscle Use, No Respiratory Distress Cardiovascular: No Murmur, Tachycardia Gastrointestinal: Normal Bowel Sounds, Non Tender, Soft Rectal: Deferred Genital/Rectal: No Tenderness Extremity: Pedal Edema, Other (diabetic foot and leg lesions on R LE ) Neurologic/Psychiatric: Alert, Oriented x3, Normal Mood/Affect, portfolio director II-XII Norm as Tested Results/Procedures Lab Patient resulted labs reviewed. Assessment/Plan Assessment and Plan Assess & Plan/Chief Complaint Sinus Tachycardia Pt still tachycardic this morning. Amalia bae. Cardiology consulted, appreciate recommendations. Sepsis 2/2 Complicated UTI U/A shows UTI Started ceftriaxone. Ordered urine culture &r blood culture. Results pending. Order CBC today. 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 This is elevated from pt baseline. Continue Lasix. Edema is RLE looks markedly improved from PE in ED 06/13. Stage 3b CKD. Order CMP today. Follow creatinine levels serially. Pt endorses normal fluid intake. T2DM, insulin dependent Pt endorses normal appetite. Started 30U detemir this morning. SSI Diabetic foot ulcers Pt has several lesions on R foot and leg. Consulted wound care. JF Continue cPAP. Chronic anemia, normocytic Likely 2/2 CKD and anemia of chronic disease. Pt withing baseline levels. No intervention planned. HTN CAD Hypercholesterolemia COPD GERD Hypothyroidism Depression Urgency incontinence Peripheral neuropathy home regimen. DVT prophylaxis lovenox. Clinical Quality Measures DVT/VTE Risk/Contraindication: Risk Factor Score Per Nursin RFS Level Per Nursing on Admit: 3=High SUHA RIVAS MD 06/16/202028: Subjective HPI/CC On Admission Date Seen by Provider: Jun 15, 2020 Assessment/Plan Assessment and Plan Assess & Plan/Chief Complaint Pt reports feeling fine and wanting to go home but has not yet had her cardioversion. Rate was still in the 120s. Informed her of plan to continue antibiotics for her UTI and that she needs to have her procedure done and be monitored. She ultimately agrees with plan to stay. Hopeful to DC home tomorrow if everything goes well. Supervisory-Addendum Brief Verification & Attestation Participated in pt care: history, MDM, physical Personally performed: exam, history, MDM, supervision of care Care discussed with: Medical Student Procedures: n/a Results interpretation: Verified all documentation Verification and Attestation of Medical Student E/M Service A medical student performed and documented this service in my presence. I reviewed and verified all information documented by the medical student and made modifications to such information, when appropriate. I personally performed the physical exam and medical decision making. Suha Rivas, Jun 16, 2020,20:25 ALLA GUZMAN MED STUDENT Jun 15, 2020 09:20 SUHA RIVAS MD Jun 16, 2020 20:29
[2020-06-15] MEDS: ADVAIR HFA 115/21 MCG INHALER 8 GM IH SCH ×2 (09:51→21:02)
[2020-06-15] MEDS: LORATADINE (CLARITIN) 10 MG TAB PO SCH (10:12)
[2020-06-15] MEDS: FOLIC ACID 1 MG TAB PO SCH (10:12)
[2020-06-15] MEDS: SERTRALINE 50 MG (ZOLOFT) TABLET PO SCH (10:13)
[2020-06-15] MEDS: PREGABALIN 100 MG (LYRICA) CAPSULE PO SCH ×3 (10:13→20:53)
[2020-06-15 11:23] LABS: HEMOGLOBIN 10.5 g/dL (11.5-16.0); MEAN PLATELET VOLUME 10.7 fL (9.0-12.2); WHITE BLOOD COUNT 12.6 10^3/uL (4.3-11.0)
[2020-06-15 11:38] LABS: POTASSIUM 4.3 MMOL/L (3.6-5.0)
[2020-06-15 11:39] LABS: CALCIUM 8.5 MG/DL (8.5-10.1)
[2020-06-15 11:43] LABS: CREATININE SERUM 1.77 MG/DL (0.60-1.30)
[2020-06-15] MEDS ORDERED: LIDOCAINE 2% VISCOUS 15 ML UDC ONE (13:35)
[2020-06-15] MEDS ORDERED: NS IV 1000 ML 1,000 ML ONE (13:36)
[2020-06-15] MEDS ORDERED: proPOfol 200 MG/20 ML (DIPRIVAN) VIAL IV ONE (13:54)
[2020-06-15] MEDS ORDERED: HURRICAINE EXT TUBE (BENZOCAINE) ONE (13:58)
[2020-06-15 14:05] VITALS: BP 132/78
[2020-06-15 14:06] VITALS: BP 128/84
[2020-06-15 14:15] VITALS: BP 130/81
[2020-06-15] MEDS ORDERED: ENOXAPARIN 60 MG/0.6 ML (LOVENOX) SYR SC NR (14:15)
[2020-06-15] MEDS ORDERED: ENOXAPARIN 100 MG/1 ML (LOVENOX) SYR ONE (14:17)
[2020-06-15 14:20] VITALS: BP 126/69
[2020-06-15 14:27] VITALS: BP 118/66
--- NOTE | 2020-06-15 14:32 | NUR ---
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 PT RESTING COMFORTABLY, EYES CLOSED, BUT RESPONDS TO VOICE. NO S/S OF DISTRESS AT THIS TIME. VS WNL. WILL CONTINUE TO MONITOR.
--- NOTE | 2020-06-15 15:18 | Cardiac Procedure Note-CS/ASA ---
Pre-Procedure Note Pre-Op Procedure Note H&P Reviewed The H&P was reviewed, patient examined and no changes noted. Date H&P Reviewed: Jun 15, 2020 Time H&P Reviewed: 13:00 Conscious Sedation Pre-Proced Time 13:00 ASA Score 3 For ASA 3 and 4: Consider anesthesia and medical clearance. Also, for patients with a history of failed moderate sedation consider anesthesia. Airway Lungs Heart ASA score ASA 1: a normal healthy patient ASA 2: a patient with a mild systemic disease (mid diabetes, controlled hypertension, obesity ASA 3: a patient with a severe systemic disease that limits activity (angina, COPD, prior Myocardial infarction) ASA 4: a patient with an incapacitating disease that is a constant threat to life (CHF, renal failure) ASA 5: a moribund patient not expected to survive 24 hrs. (ruptured aneurysm) ASA 6: a declared brain- patient whose organs are being harvested. For emergent operations, add the letter E after the classification Mallampati Classification Grade 1 Sedation Plan Analgesia, Amnesia, Plan communicated to team members, Discussed options with patient/fam, Discussed risks with patient/fam The patient is an appropriate candidate to undergo the planned procedure, sedation, and anesthesia. The patient immediately re-assessed prior to indication. Emmanuel SAHA MD Jun 15, 2020 15:18
--- NOTE | 2020-06-15 15:19 | Cardioversion ---
Cardioversion PROCEDURE PHYSICIAN: Blanca Thomas MD DATE OF PROCEDURE: 06/15/20 DIRECT EXTERNAL ELECTRICAL CARDIOVERSION: Indications: Rapid atrial flutter. Preoperative diagnoses: Rapid atrial flutter. Postoperative diagnosis: Sinus rhythm, Successful Electrical Cardioversion History: Rapid atrial flutter. Anesthesia: By Anesthesia services Complications: None Specimen: None Contrast: 0 Flouroscopy: none Procedure Details: The patient was brought the medical laboratory manager after informed consent was taken, all the risks and complications were explained including the risk of stroke. KELLY showed no obvious LA or ERICK thrombus. Electrical cardioversion was carried out with anesthesia support with propofol. 200 joules of synchronized shock was delivered through external patches which promptly restored sinus rhythm. The patient tolerated the procedure well. Conclusions: 1.Successful Cardioversion. 2.Continue oral anticoagulation and rate controlling agent. 3.Follow up in office with Dr House. Blanca Thomas MD, [facility] Cardiac Electrophysiology Emmanuel THOMAS MD Jun 15, 2020 15:19
--- NOTE | 2020-06-15 17:40 | Cardiology Progress Note ---
Cardiology SOAP Progress Note Subjective: Patient was very upset when I saw her. The patient was initially planned for ablation, however anesthesia was not comfortable without an ICU bed afterwards. Since we did not have an ICU bed we decided to postpone the ablation. The patient was not very happy with that. She was upset with anesthesia percent and myself. I tried to explain that anesthesia did not think that it was safe for her to go to a regular bed after her ablation. She was not willing to understand. However I spoke to her about transesophageal echocardiogram and cardioversion and she accepted all the risks and complication would like to proceed with it. Objective: I&O/Vital Signs 06/15/20 06/15/20 06/15/20 06/15/20 07:29 07:30 07:52 08:00 Temp 36.5 Pulse 133 131 Resp 18 B/P (MAP) 141/85 Pulse Ox 98 O2 Delivery Nasal Cannula Room Air O2 Flow Rate 2.00 06/15/20 06/15/20 06/15/20 06/15/20 08:00 09:51 09:55 11:52 Pulse Ox 96 96 O2 Delivery Room Air Room Air Room Air Room Air 06/15/20 06/15/20 06/15/20 06/15/20 11:53 13:22 14:05 14:05 Temp 36.2 Pulse 133 129 Resp 18 16 B/P (MAP) 128/81 132/78 (96) Pulse Ox 96 99 98 O2 Delivery Room Air OxyMask OxyMask O2 Flow Rate 10.00 06/15/20 06/15/20 06/15/20 06/15/20 14:06 14:15 14:20 14:27 Pulse 130 82 81 81 Resp 16 16 16 16 B/P (MAP) 128/84 (99) 130/81 (97) 126/69 (88) 118/66 (83) Pulse Ox 99 100 95 95 O2 Delivery OxyMask OxyMask OxyMask Room Air 06/15/20 15:17 Pulse 75 06/15/20 00:00 Intake Total 1000 ml Output Total 1950 ml Balance -950 ml Weight (Pounds): 182 Weight (Ounces): 0 Weight (Calculated Kilograms): [id number] Constitutional: appears stated age, AAO x 3; No apparent distress; well- developed, well-nourished Respiratory: chest is bilaterally symmetric, lungs clear to auscultation Cardiovascular: irregularly irregular, tachycardia, S1 and S2; No diastolic murmur; systolic murmur Gastrointestional: soft, audible bowel sounds; No spleenomegaly Extremities: normal range of motion, non-tender, normal inspection; No clubbing, No cyanosis; significant edema Neurologic/Psychiatric: no motor/sensory deficits, alert, normal mood/affect, oriented x 3, power is 5/5 both on sides Skin: normal color, warm/dry; No rash, No ulcerations Results/Procedures: Labs Laboratory Tests 06/14/20 20:43: Glucometer 251H 06/15/20 05:57: Glucometer 216H 06/15/20 11:15: White Blood Count 12.6H, Red Blood Count 3.88, Hemoglobin 10.5L, Hematocrit 33L, Mean Corpuscular Volume 85, Mean Corpuscular Hemoglobin 27, Mean Corpuscular Hemoglobin Concent 32, Red Cell Distribution Width 18.1H, Platelet Count 132, Mean Platelet Volume 10.7, Sodium Level 137, Potassium Level 4.3, Chloride Level 102, Carbon Dioxide Level 23, Anion Gap 12, Blood Urea Nitrogen 28H, Creatinine 1.77H, Estimat Glomerular Filtration Rate 27, BUN/Creatinine Ratio 16, Glucose Level 258H, Calcium Level 8.5 Microbiology 06/14/20 Blood Culture - Preliminary, Resulted No growth 06/14/20 Urine Culture - Preliminary, Resulted Klebsiella/Enterobacter spec A/P: Assessment/Dx: Typical atrial flutter, Systolic murmur, Right lower extremity swelling with possible wound, Chronic kidney disease. Plan: Typical atrial flutter, discussed at length with the patient and recommended atrial flutter ablation. Informed consent was taken. As mentioned above he could not do atrial flutter ablation since we did not have an ICU bed available. Therefore I spoke to the patient about transesophageal echocardiogram assisted cardioversion. She accepted all risks including 1/500 risk of stroke. We will give a dose of Lovenox and start her on Eliquis afterwards. Transesophageal echocardiogram showed no left atrial thrombus. Successful cardioversion was done. Severe mitral regurgitation was noted. Patient follows with Dr. House. Systolic murmur, echocardiogram. Right lower extremity swelling with possible wound, Chronic kidney disease. Thank you for your consultation. Please call me if you have any questions. Blanca Thomas MD, FACP, FACC, FSCAI, FHRS, CCDS Interventional Cardiology Cardiac Electrophysiology Vascular Medicine and Endovascular Interventions Focused Exam Lactate Level 06/14/20 10:45: Lactic Acid Level 1.12 Emmanuel THOMAS MD Jun 15, 2020 17:40
--- NOTE | 2020-06-15 18:39 | Wound Care Assessment ---
Wound Care Assessment Date Seen by Provider: Jun 15, 2020 Time Seen by Provider: 18:20 Chief Complaint R foot wound. HPI The patient is an 85 year old female admitted for arrhythmia with atypical R dorsal foot ulcer. Unroofed at bedside, bacitracin dressings, oral Doxycycline and out-patient follow-up in wound clinic ordered. Past Medical History: Admits Diabetes Type II, Admits Heart Disease Smoking Status: Never a Smoker Recreational Drug Use: No Alcohol Use: Denies Use Exam Vital Signs Date Time Temp Pulse Resp B/P (MAP) Pulse Ox O2 Delivery O2 Flow Rate FiO2 06/15/20 16:00 36.0 18 136/68 95 Room Air 06/15/20 15:17 75 06/15/20 14:05 10.00 06/14/20 12:59 28 Capillary Refill : Less Than 3 Seconds Results Laboratory Tests 06/14/20 20:43: Glucometer 251H 06/15/20 05:57: Glucometer 216H 06/15/20 11:15: White Blood Count 12.6H, Red Blood Count 3.88, Hemoglobin 10.5L, Hematocrit 33L, Mean Corpuscular Volume 85, Mean Corpuscular Hemoglobin 27, Mean Corpuscular Hemoglobin Concent 32, Red Cell Distribution Width 18.1H, Platelet Count 132, Mean Platelet Volume 10.7, Sodium Level 137, Potassium Level 4.3, Chloride Level 102, Carbon Dioxide Level 23, Anion Gap 12, Blood Urea Nitrogen 28H, Creatinine 1.77H, Estimat Glomerular Filtration Rate 27, BUN/Creatinine Ratio 16, Glucose Level 258H, Calcium Level 8.5 Microbiology 06/14/20 Blood Culture - Preliminary, Resulted No growth 06/14/20 Urine Culture - Preliminary, Resulted Klebsiella/Enterobacter spec Microbiology 06/14/20 Blood Culture - Preliminary, Resulted No growth 06/14/20 Blood Culture - Preliminary, Resulted No growth 06/14/20 Urine Culture - Preliminary, Resulted Klebsiella/Enterobacter spec TAPAN DUVALL MD Jun 15, 2020 18:39
[2020-06-15] MEDS: APIXABAN 2.5 MG (ELIQUIS) TABLET PO SCH (20:53)
[2020-06-15] MEDS: DOXYCYCLINE 100 MG (VIBRAMYCIN) TABLET PO SCH (20:53)
[2020-06-15] MEDS: AMITRIPTYLINE 25 MG (ELAVIL) TAB PO SCH (20:53)
[2020-06-15] MEDS ORDERED: APIXABAN 5 MG (ELIQUIS) TABLET PO SCH (21:00)
[2020-06-16] MEDS: RT-ALBUTEROL INHALER HFA (VENTOLIN HFA) 18 GM IH SCH ×2 (04:35→08:39)
[2020-06-16 05:56] LABS: HEMOGLOBIN 9.3 g/dL (11.5-16.0); MEAN PLATELET VOLUME 10.7 fL (9.0-12.2); WHITE BLOOD COUNT 10.5 10^3/uL (4.3-11.0)
[2020-06-16 06:09] LABS: POTASSIUM 4.1 MMOL/L (3.6-5.0)
[2020-06-16 06:10] LABS: CALCIUM 8.2 MG/DL (8.5-10.1)
[2020-06-16 06:15] LABS: CREATININE SERUM 1.51 MG/DL (0.60-1.30)
[2020-06-16] MEDS: CATHETER FLUSH 10 ML SYR IV SCH ×2 (06:22→14:10)
[2020-06-16] MEDS: LEVOTHYROXINE 125 MCG (LEVOTHROID) TABLET PO SCH (06:22)
[2020-06-16] MEDS: inSUlin ASPART (NovoLOG) 1 UNIT/0.01 ML (CHARGE PER UNIT) SC SCH ×2 (06:22→11:57)
[2020-06-16] MEDS: ADVAIR HFA 115/21 MCG INHALER 8 GM IH SCH (08:38)
--- NOTE | 2020-06-16 09:16 | Anesthesia-General Post-Op ---
MAC Significant Intra-Op Events Notes late entry from 06/15/20 at 1445 Patient Condition Mental Status/LOC: Same as Preop Cardiovascular: Satisfactory Nausea/Vomiting: Absent Respiratory: Satisfactory Pain: Controlled Complications: Absent Post Op Complications Complications None Follow Up Care/Instructions Patient Instructions None needed. Anesthesiology Discharge Order Discharge Order Patient is doing well, no complaints, stable vital signs, no apparent adverse anesthesia problems. No complications reported per nursing. ANUJA LUZ CRNA Jun 16, 2020 09:16
[2020-06-16] MEDS: meTOprolol SUCCINATE 100 MG (TOPROL XL) TAB PO SCH (09:21)
[2020-06-16] MEDS: FOLIC ACID 1 MG TAB PO SCH (09:21)
[2020-06-16] MEDS: LORATADINE (CLARITIN) 10 MG TAB PO SCH (09:21)
[2020-06-16] MEDS: DIGOXIN 0.125 MG (LANOXIN) TAB PO SCH (09:21)
[2020-06-16] MEDS: DOXYCYCLINE 100 MG (VIBRAMYCIN) TABLET PO SCH (09:21)
[2020-06-16] MEDS: SERTRALINE 50 MG (ZOLOFT) TABLET PO SCH (09:21)
[2020-06-16] MEDS: APIXABAN 2.5 MG (ELIQUIS) TABLET PO SCH (09:21)
[2020-06-16] MEDS: PREGABALIN 100 MG (LYRICA) CAPSULE PO SCH ×2 (09:29→11:57)
[2020-06-16] MEDS: cefTRIAXone FOR IV USE 1,000 MG in WATER (STERILE) FOR INJECTION 10 ML IV SCH (09:30)
--- NOTE | 2020-06-16 09:36 | Discharge Summary ---
MEGANALLA MED STUDENT 06/16/20 0936: Diagnosis/Chief Complaint Date of Admission Jun 13, 2020 at 14:27 Date of Discharge Discharge Date: Jun 16, 2020 Admission Diagnosis Sinus Tachycardia Primary Care Zuly Jeffrey DO Discharge Diagnosis (1) Tachycardia Status: Acute (2) CHF (congestive heart failure) Status: Acute (3) Essential (primary) hypertension Status: Chronic (4) PVD (peripheral vascular disease) (5) Hypothyroidism Status: Chronic (6) Diabetes Status: Chronic (7) S/P BKA (below knee amputation) unilateral (8) Charcot foot due to diabetes mellitus Status: Chronic (9) CAD (coronary artery disease) Status: Chronic (10) CKD (chronic kidney disease) stage 3, GFR 30-59 ml/min Status: Chronic Discharge Summary Procedures/Consulations Dr. Dieudonne Thomas, Cardiology. Dr. Juan Avila, Wound Care. Discharge Physical Exam Allergies: Coded Allergies: Penicillins (Verified Allergy, Unknown, Pt has received Ceftriaxone in the past, 05/13/18) influenza virus vaccine, specific (Verified Adverse Reaction, Unknown, Not allergic just won't take Flu vaccine, 05/13/18) Vitals & I&Os Vital Signs Date Time Temp Pulse Resp B/P (MAP) Pulse Ox O2 Delivery O2 Flow Rate FiO2 06/16/20 08:41 Room Air 06/16/20 08:39 97 06/16/20 08:10 06/16/20 07:40 36.9 68 18 2.00 06/14/20 12:59 28 General Appearance: WD/WN, Chronically ill HEENT: PERRL/EOMI, Normal ENT Inspection, Moist Mucous Membranes Respiratory: Lungs Clear, Normal Breath Sounds, No Accessory Muscle Use, No Respiratory Distress Cardiovascular: Normal Peripheral Pulses, Systolic Murmur Gastrointestinal: Normal Bowel Sounds, Non Tender, Soft Extremity: Normal Capillary Refill, No Calf Tenderness, Pedal Edema, Other (diabetic RLE lesions, tx'd with wound care. ) Skin: Normal Color, Warm/Dry Neurologic/Psychiatric: Alert, Oriented x3, Normal Mood/Affect, intensive care unit nurse II-XII Norm as Tested, Sensory Deficit (peripheral neuropathy ) Hospital Course Labs (last 24 hrs) Laboratory Tests 06/15/20 11:15: White Blood Count 12.6H, Red Blood Count 3.88, Hemoglobin 10.5L, Hematocrit 33L, Mean Corpuscular Volume 85, Mean Corpuscular Hemoglobin 27, Mean Corpuscular Hem oglobin Concent 32, Red Cell Distribution Width 18.1H, Platelet Count 132, Mean Platelet Volume 10.7, Sodium Level 137, Potassium Level 4.3, Chloride Level 102, Carbon Dioxide Level 23, Anion Gap 12, Blood Urea Nitrogen 28H, Creatinine 1.77H , Estimat Glomerular Filtration Rate 27, BUN/Creatinine Ratio 16, Glucose Level 258H, Calcium Level 8.5 06/15/20 18:20: Glucometer 227H 06/15/20 20:38: Glucometer 180H 06/16/20 05:07: Glucometer 210H 06/16/20 05:46: White Blood Count 10.5, Red Blood Count 3.49L, Hemoglobin 9.3L, Hematocrit 30L, Mean Corpuscular Volume 86, Mean Corpuscular Hemoglobin 27, Mean Corpuscular Hemoglobin Concent 31L, Red Cell Distribution Width 18.0H, Platelet Count 115L, Mean Platelet Volume 10.7, Sodium Level 135, Potassium Level 4.1, Chloride Level 102, Carbon Dioxide Level 23, Anion Gap 10, Blood Urea Nitrogen 22H, Creatinine 1.51H, Estimat Glomerular Filtration Rate 33, BUN/Creatinine Ratio 15, Glucose Level 216H, Calcium Level 8.2L Microbiology 06/14/20 Blood Culture - Preliminary, Resulted No growth 06/14/20 Urine Culture - Preliminary, Resulted Klebsiella/Enterobacter spec Patient resulted labs reviewed. Pending Labs Laboratory Tests 06/16/20 05:07: Glucometer 210 06/16/20 05:46: White Blood Count 10.5, Red Blood Count 3.49, Hemoglobin 9.3, Hematocrit 30, Mean Corpuscular Volume 86, Mean Corpuscular Hemoglobin 27, Mean Corpuscular Hemoglobin Concent 31, Red Cell Distribution Width 18.0, Platelet Count 115, Mean Platelet Volume 10.7, Sodium Level 135, Potassium Level 4.1, Chloride Level 102, Carbon Dioxide Level 23, Anion Gap 10, Blood Urea Nitrogen 22, Creatinine 1 .51, Estimat Glomerular Filtration Rate 33, BUN/Creatinine Ratio 15, Glucose Level 216, Calcium Level 8.2 Discussion & Recommendations Deepa Agarwal is a 85y/o F with PMH CAD, HTN, hypercholesterolemia, T2DM insulin dependent, Stage 3b CKD, hypothyroidism, GERD, COPD, urgency incontinence, and peripheral neuropathy. Pt presented to the ER at 06/13 with sinus tachycardia, elevated BNP over baseline suggesting Acute on CHF, and several diabetic lesions on RLE. Pt presented to her cardiologists, Dr. House, office earlier that day who recommended she go to the ER so she could be admitted and a cardizem drip be started. Pt was started on cardizem drip, and later on 06/15 pt was cardioverted with KELLY assistance into regular rate and rhythm. Dr Avila was consulted for care of RLE skin lesions. Pt was additionally given lasix to relieve pts acute on CHFpEF and move fluid from extravascular compartments. Trending of CBC showed an elevated WBC count on 06/14 and U/A confirmed UTI. Pts temperture this day myrna to 38.2C. She was subsequently dx'd with sepsis secondary to UTI and started on a ceftriaxone drip while blood and urine cultures were ordered to specify care and antibiotic regimen. Pt was give Lovenox for DVT prophylaxis. Pts home insulin regimen was held and she was started on a sliding-scale. Pts home mediations for chronic conditions including HTN, GERD, COPD, urgency incontinence, peripheral neuropathy, COPD and hypothyroidism was re-started. Pt will be discharged home later today. Pt is to be started on outpt oral antibiotic regimen for UTI pending results of urine culture sensitivities. Discharge Home Medications: Active Scripts Active Reported Vitamin D3 (Cholecalciferol (Vitamin D3)) 25 Mcg Capsule 25 Mcg PO DAILY Folic Acid 0.8 Mg Tablet 0.8 Mg PO DAILY Vitamin C (Ascorbic Acid) 500 Mg Tab.chew 500 Mg PO DAILY Melatonin 10 Mg Tablet 20 Mg PO HS TAKES 2 (10MG) TABS Tresiba Flextouch U-200 (Insulin Degludec) 200 Unit/1 Ml Insuln.pen 30 Unit SC DAILY Pregabalin 100 Mg Capsule 100 Mg PO TID Metoprolol Succinate 100 Mg Tab.er.24h 100 Mg PO DAILY Diltiazem 24Hr ER (Diltiazem HCl) 240 Mg Cap.er.24h 240 Mg PO BID Digoxin 125 Mcg Tablet 125 Mcg PO DAILY Amitriptyline HCl 25 Mg Tablet 25 Mg PO HS Novolog (Insulin Aspart) 100 Unit/1 Ml Susp Units SC TIDWM MDD 50 UNITS Tylenol Extra Strength (Acetaminophen) 500 Mg Tablet 500 Mg PO Q6H PRN Sertraline HCl 50 Mg Tablet 50 Mg PO DAILY Levothyroxine Sodium 125 Mcg Tablet 125 Mcg PO DAILY Loratadine 10 Mg Tablet 10 Mg PO DAILY Ventolin Hfa (Albuterol Sulfate) 18 Gm Hfa.aer.ad 2 Puff INH Q4H PRN Restasis (Cyclosporine) 1 Each Droperette 1 Drop OU BID Omeprazole 40 Mg Capsule.dr 40 Mg PO DAILY Spiriva (Tiotropium [place]) 1 Inh Aerp 1 Cap IH HS Niacin ER (Niacin) 1,000 Mg Tab.er.24h 1,000 Mg PO HS Advair 250-50 Diskus (Fluticasone/Salmeterol) 1 Each Blst.w.dev 2 Puff IH HS Instructions to patient/family Please see electronic discharge instructions given to patient. Clinical Quality Measures DVT/VTE Risk/Contraindication: Risk Factor Score Per Nursin RFS Level Per Nursing on Admit: 3=High SUHA RIVAS MD 06/18/20 1428: Discharge Summary Discharge Physical Exam Allergies: Coded Allergies: Penicillins (Verified Allergy, Unknown, Pt has received Ceftriaxone in the past, 05/13/18) influenza virus vaccine, specific (Verified Adverse Reaction, Unknown, Not allergic just won't take Flu vaccine, 05/13/18) Discussion & Recommendations Discharge Planning: >30 minutes discharge planning Supervisory-Addendum Brief Verification & Attestation Participated in pt care: history, MDM, physical Personally performed: exam, history, MDM, supervision of care Care discussed with: Medical Student Procedures: n/a Results interpretation: Verified all documentation Verification and Attestation of Medical Student E/M Service A medical student performed and documented this service in my presence. I reviewed and verified all information documented by the medical student and made modifications to such information, when appropriate. I personally performed the physical exam and medical decision making. Suha Rivas, Jun 18, 2020,14:28 ALLA GUZMAN MED STUDENT Jun 16, 2020 09:36 SUHA RIVAS MD Jun 18, 2020 14:28
--- NOTE | 2020-06-16 10:36 | Discharge Inst-Simple/Standard ---
Discharge Inst-Standard Patient Instructions/Follow Up Plan of Care/Instructions/FU: Please continue to take your medications as written. Please follow up with your primary care doctor to follow up this hospital stay. Activity as Tolerated: Yes Discharge Diet: Cardiac Diet Return to The Hospital For: Chest pain, shortness of breath, fever, confusion, heart racing, if you feel you are getting worse. SUHA TAYLOR MD Jun 16, 2020 10:36
[2020-06-16] MEDS ORDERED: CEFD300C3 PO (10:53)
[2020-06-16] MEDS ORDERED: DOXY100T2 PO (10:53)
[2020-06-16 14:19] VITALS: BP 137/9
--- NOTE | 2020-06-16 14:27 | NUR ---
RD ASSESSMENT PMHx: CAD; HTN; hypercholesterolemia; DM; CKD(stage 3b); hypothyroidism; GERD; COPD; dementia; chronic-UTI; hiatal hernia; chronic constipation; PT INTERACTION: Pt was awake and pleasant during nutrition assessment. Note pt has dementia, per chart review. Pt states current appetite is so-so. Note avg PO intake 58% of meals, per chart review. Pt states following a regular diet at home, and has no issues with chewing/swallowing food. Pt states no recent issues with nausea, vomiting, constipation, or diarrhea. Note last BM 06/13, and pt not currently on bowel regimen per chart review. Pt states no recent wt changes. Note recent 15# wt loss x5mon, per chart review. Pt states current DM management is "pretty good. My daughter keeps track of it in a notebook at home." Note unable to determine recent HbA1c, per chart review. ABNORMAL NUTRITION-RELATED LAB VALUES LOW: Ca 8.2; HIGH: BUN 22; cr 1.51; glu 216; Est. kcal needs: 3619-0469 kcal | 20-25 kcal/kg Est. Pro needs: 60-75 g Pro | 0.8-1.0 g Pro/kg PES STATEMENT: Inadequate oral intake (NI-2.1) related to loss of appetite as evidenced by pt interview, and avg PO intake 58% of meals. INTERVENTION: Continue with current diet order of 2000mg Na diet. Pt may benefit from consistent CHO restriction if blood glucose levels become elevated. Pt may benefit from nutrition supplementation if PO intake declines. Did not offer diet education on DM management due to pt's dementia. Will continue to follow and reassess as pt needs, intake, and status change. Savannah Yun, MS RD LD
--- NOTE | 2020-06-16 18:51 | Cardiology Progress Note ---
Cardiology SOAP Progress Note Subjective: No cardiac complaints. Objective: I&O/Vital Signs Weight (Pounds): 182 Weight (Ounces): 0 Weight (Calculated Kilograms): 82.605409 Constitutional: appears stated age, AAO x 3; No apparent distress; well- developed, well-nourished Respiratory: chest is bilaterally symmetric, lungs clear to auscultation Cardiovascular: regular rate-rhythm, S1 and S2; No diastolic murmur; systolic murmur Gastrointestional: soft, audible bowel sounds; No spleenomegaly Extremities: normal range of motion, non-tender, normal inspection; No clubbing, No cyanosis; significant edema Neurologic/Psychiatric: no motor/sensory deficits, alert, normal mood/affect, oriented x 3, power is 5/5 both on sides Skin: normal color, warm/dry; No rash, No ulcerations Results/Procedures: Labs Microbiology 06/14/20 Blood Culture - Preliminary, Resulted No growth 06/14/20 Urine Culture - Final, Complete Klebsiella pneumoniae A/P: Assessment/Dx: Typical atrial flutter, Systolic murmur, Right lower extremity swelling with possible wound, Chronic kidney disease. Plan: Typical atrial flutter, discussed at length with the patient and recommended atrial flutter ablation. Informed consent was taken. As mentioned above he could not do atrial flutter ablation since we did not have an ICU bed available. Therefore I spoke to the patient about transesophageal echocardiogram assisted cardioversion. She accepted all risks including 1/500 risk of stroke. On Eliquis. Transesophageal echocardiogram showed no left atrial thrombus. Successful cardioversion was done. Severe mitral regurgitation was noted. Patient follows with Dr. House. Systolic murmur, echocardiogram - severe mitral regurgitation. Right lower extremity swelling with possible wound, Chronic kidney disease. Thank you for your consultation. Please call me if you have any questions. Blanca Thomas MD, FACP, FACC, FSCAI, FHRS, CCDS Interventional Cardiology Cardiac Electrophysiology Vascular Medicine and Endovascular Interventions Focused Exam Lactate Level Emmanuel THOMAS MD Jun 16, 2020 18:51
== END 2020-06-16 14:25 | disposition home or self-care (01) | DRG 871 ==
LOC: EDUNIT# 13:15 → ER 13:18 → EDLOC 14:27 → CSD 14:27 → 4TH 06-15 19:55
PROVIDERS: ADMIT Family Medicine; ATTEND Family Medicine
PROC: 5A2204Z Restoration of Cardiac Rhythm, Single (ICD-10-PCS; principal; 2020-06-15)
DX: A41.9 Sepsis, unspecified organism (principal); I50.33 Acute on chronic diastolic (congestive) heart failure; N39.0 Urinary tract infection, site not specified; I13.0 Hypertensive heart and chronic kidney disease with heart failure and stage 1 through stage 4 chronic kidney disease, or unspecified chronic kidney disease; L97.919 Non-pressure chronic ulcer of unspecified part of right lower leg with unspecified severity; I48.92 Unspecified atrial flutter; N18.32 Chronic kidney disease, stage 3b; E11.621 Type 2 diabetes mellitus with foot ulcer; Z20.828 Contact with and (suspected) exposure to other viral communicable diseases; E11.42 Type 2 diabetes mellitus with diabetic polyneuropathy; E78.00 Pure hypercholesterolemia, unspecified; G47.33 Obstructive sleep apnea (adult) (pediatric); I25.10 Atherosclerotic heart disease of native coronary artery without angina pectoris; E03.9 Hypothyroidism, unspecified; K21.9 Gastro-esophageal reflux disease without esophagitis; E11.618 Type 2 diabetes mellitus with other diabetic arthropathy; J44.9 Chronic obstructive pulmonary disease, unspecified; L97.519 Non-pressure chronic ulcer of other part of right foot with unspecified severity; N39.41 Urge incontinence; F32.9 Major depressive disorder, single episode, unspecified; F41.9 Anxiety disorder, unspecified; D63.1 Anemia in chronic kidney disease; F03.90 Unspecified dementia, unspecified severity, without behavioral disturbance, psychotic disturbance, mood disturbance, and anxiety; J30.2 Other seasonal allergic rhinitis; K59.09 Other constipation; K44.9 Diaphragmatic hernia without obstruction or gangrene; M19.91 Primary osteoarthritis, unspecified site; Z89.512 Acquired absence of left leg below knee; Z96.653 Presence of artificial knee joint, bilateral; Z79.4 Long term (current) use of insulin; Z95.5 Presence of coronary angioplasty implant and graft; Z86.010 Personal history of colon polyps
CPT/HCPCS: 36415; 71045; 80048; 80053; 81000; 82962; 83605; 83735; 83880; 84439; 84443; 84484; 85007; 85025; 85027; 87040; 87077; 87088; 87186; 87635; 92960; 93005; 93312; 94640; 94760; 96374; 96375